=== PATIENT | male | born 1990 | race Caucasian/White ===

== ENCOUNTER 2018-08-28 12:01 | Inpatient (IN) | payer MEDICARE, SELFPAY ==
[2018-08-28 12:02] VITALS: BP 156/101; PULSE 106; RESP 22; TEMP 36; O2SAT 100; BMI 35.8
--- NOTE | 2018-08-28 12:13 | CT_ITS ---
STUDY: CT ABDOMEN AND PELVIS WITH CONTRAST REASON FOR EXAM: Male, 28 years old. Lower abdominal and rectal pain. RADIATION DOSAGE (If Supplied By Facility): CTDIvol = ( 20.28 ) mGy, DLP = ( 1349.64 ) mGycm TECHNIQUE: Transaxial images were obtained from the dome of the diaphragm to the symphysis pubis without oral contrast. 100mL ml of Isovue 300 contrast was administered. Sagittal and coronal images were reconstructed. Individualized dose optimization techniques were used for this CT. COMPARISON: Comparison is made with prior study dated November 07, 2016. FINDINGS: Minimal increased markings at the right lung base suggestive of mild atelectasis. The visualized portions of the heart are within normal limits. There is decreased attenuation of the liver consistent with steatosis. Normal gallbladder and extrahepatic biliary system. Borderline splenomegaly. Normal pancreas. Normal bilateral adrenal glands. Normal right kidney. Normal left kidney. Normal visualized stomach. Normal small intestine. There is diverticulosis, with thickening of the colon wall, and pericolonic inflammation changes consistent with acute diverticulitis. Tiny air bubbles are seen along the mesenteric side of the sigmoid colon in keeping with a localized perforated well-contained diverticulitis. No abnormal fluid collection or abscess is seen. The appendix is visualized and appears normal. Normal abdominal aorta. Normal inferior vena cava. There is borderline retroperitoneal lymphadenopathy with enlarged nodes no greater than 10mm in the short axis diameter. Normal urinary bladder. Normal abdominal wall. Normal osseous structures. CT/Abdomen/Pelvis W IV Cont ONLY IMPRESSION: Findings in keeping with a noncomplicated acute sigmoid diverticulitis. Fatty infiltration of the liver. Electronically Signed: Chaka Burciaga MD at 13:51 EST Tel [phone], Service support ,
[2018-08-28] MEDS: 0.9% Normal Saline 1,000 ML 125 ML IV ×2 (12:50→17:30)
[2018-08-28] MEDS: Ondansetron 4 MG/2 ML Vial IV ×2 (12:50→17:20)
[2018-08-28] MEDS: Morphine 4 MG/ML Syringe IV ×2 (12:51→14:04)
[2018-08-28 12:55] LABS: Absolute Lymphocyte Count 1.45 X10^3/ul (0.83-4.51); Basophil# 0.02 X10^3/uL; Basophil% 0.1 % (0-1); Eosinophils% 14.7 % (0-5); Hematocrit 50.1 % (40-54); Hemoglobin 16.8 g/dl (13.0-16.5); Lymphocyte # 1.45 X10^3/ul (4.0); Lymphocyte % 8.2 % (19-41); Mean Corp Hgb Conc 33.5 g/gl (32-36); Mean Corpuscular Hgb 29.7 pg (27.0-32.0); Mean Corpuscular Volume 88.7 fL (80-94); Monocyte# 0.68 X10^3/uL; Monocyte% 3.8 % (0-10); Neutrophil # 13.01 X10^3/uL (2.7-7.7); Neutrophil % 73.1 % (47-70); Platelet Count 246 K/mm3 (150-450); RBC Distribution Width CV 13.6 % (11.6-14.6); RBC Distribution Width SD 44.1 fl (35.1-43.9); Red Blood Count 5.65 M/mm3 (4.6-6.2); White Blood Count 17.8 K/mm3 (4.4-11.0)
[2018-08-28 12:57] LABS: Differential Indicated SCAN CRITERIA MET; Eosinophil# 2.61 X10^3/uL; POSITIVE COUNT NO; POSITIVE DIFFERENTIAL YES; POSITIVE MORPHOLOGY NO
[2018-08-28 13:05] LABS: BUN 7 mg/dL (7-18); Creatinine, Serum 0.99 mg/dL (0.70-1.30); Estimated Creatinine Clearance 121.93 ml/min; Glucose 100 mg/dL (74-106)
[2018-08-28 13:06] LABS: Anion Gap 5 (5-15); BUN/Creat Ratio 7.1 RATIO (10-20); Calcium,Total 8.6 mg/dL (8.5-10.1); Chloride 104 mmol/L (98-107); EST Glomerular Filtration Rate 96 mL/min (>60); Est Glom Filt Rate - Afr Amer 116 mL/min (>60); Potassium 4.2 mmol/L (3.5-5.1); Sodium Level 138 mmol/L (136-145)
[2018-08-28 13:10] LABS: Differential Comment SCANNED
[2018-08-28 14:11] VITALS: BP 150/74; PULSE 72; RESP 18; O2SAT 97
--- NOTE | 2018-08-28 14:20 | ED.DCSUM_ITS ---
- ER Visit Summary Date of Service: 08/28/18 Chief Complaint: Abdominal pain History of Present Illness: The patient is a 28 M who states that last evening before bedtime he had some lower abdominal discomfort. He is able to sleep. When he woke up this morning he states he felt reasonably well. He was on the commode attempting to have a bowel movement and pushing when he developed a severe pain in the suprapubic left lower quadrant region. He states he cannot sit down. He states it feels like there is a needle going through his rectum into his abdomen. He denies any urinary symptoms. No testicular pain no history of kidney stones. Physical Examination: Afebrile vital signs are stable Gen: Well-nourished well-developed Head: Normocephalic atraumatic Eyes: Perrl EOMI ENT: TMs clear no rhinorrhea moist mucous membranes Neck: Supple no lymphadenopathy no JVD nontender CVS: Regular rate rhythm no murmurs normal S1-S2 Respiratory: No distress clear to auscultation bilaterally chest nontender Abdomen: Soft tender to palpation with guarding and rebound in the suprapubic and left lower quadrant nondistended normal bowel sounds no masses : Rectal exam is nontender with no obvious hemorrhoids Back: Nontender Extremity: Nontender no edema Skin: Normal color no rash Neuro: alert orientated ?3 CN II-XII intact normal strength sensation reflexes gait cerebellar Psych: Normal affect normal mood Test Results: White count is elevated and CT demonstrates sigmoid diverticulitis with microperforation without abscess formation. Emergency Department Course and Treatment: Patient received morphine Zofran. He also received IV fluids and later Zosyn. Plan is admission into the hospital for pain control and antibiotics. Impression: 1. Acute sigmoid diverticulitis with microperforation This note was generated with [employer] dictation software. It may contain incorrect words, spelling, and punctuation that were not noted in review of the chart prior to signing ED Disposition - Plan for ED Patient: Chief Complaint: Abd Pain Referrals: Berna Wren NP-C [Primary Care Provider] -
[2018-08-28 14:27] LABS: AST(SGOT) 26 U/L (15-37); Alanine Aminotransfer ALT/SGPT 59 U/L (16-61); Albumin, Serum 4.3 g/dL (3.2-5.0); Alkaline Phosphatase 86 U/L (45-117); Globulin 4.4 g/dL (2.2-4.2); Protein, Total 8.7 g/dL (6.4-8.2)
[2018-08-28 14:33] LABS: Lactic Acid 1.3 mmol/L (0.4-2.0)
[2018-08-28 15:07] VITALS: BMI 35.8
--- NOTE | 2018-08-28 15:08 | NURSING ---
MED SURG JOTHEO ACUTE SIGMOID DIVERTICULITIS
[2018-08-28] MEDS: HYDROmorphone 1 MG/ML Syringe IV (15:10)
--- NOTE | 2018-08-28 15:13 | PCM.HP.STD ---
Problem List (1) Diverticulitis Status: Acute History of Present Illness Date of Admission: 08/28/18 Chief Complaint: abdominal pain. The patient is a 28 year old M who was in his normal state of health up until last night where he started to have some vague abdominal pain. This morning, around 1030, he had acute needlelike abdominal pain at this tearing sensation across his abdomen. Patient felt like he had to have a bowel movement but did not at that time. Presented to the emergency room and had a CAT scan that showed diverticulosis with thickening of the colonic wall and pericolonic inflammatory changes consistent with acute diverticulitis. Tiny air bubbles seen along the mesenteric side of the sigmoid colon in keeping with localized perforated well-contained diverticulitis. Patient received the pain medications, IV fluids as well as Zosyn in the emergency room. Patient denies ever having had diverticulitis before. Patient if the pain medication did help with his symptoms. 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 Allergies dextromethorphan HBr [From NyQuil] Allergy (Verified 08/18/17 14:25) Anaphylaxis doxylamine [From NyQuil] Allergy (Verified 08/18/17 14:25) Anaphylaxis poison mimi extract [Poison Mimi Extract] Allergy (Verified 08/18/17 14:25) Anaphylaxis pseudoephedrine HCl [From NyQuil] Allergy (Verified 08/18/17 14:25) Anaphylaxis venom-honey bee [bee venom (honey bee)] Allergy (Verified 08/18/17 14:25) Anaphylaxis MUSHROOMS Allergy (Uncoded 08/18/17 14:25) Anaphylaxis Home Medications: Ambulatory Orders Medication Instructions Recorded Acetaminophen [Tylenol Extra 1,000 mg PO PRN PRN 08/28/18 Strength] Calcium Carbonate [Tums] 1,000 mg PO PRN PRN 08/28/18 Surgical History: - - testicular surgery on cyst--nonresectable. Lives: Spouse/ Significant Other Smoking Status: Light Smoker (<10/day) Tobacco Use: Cigarettes Alcohol: None Drugs: None - *Family History Maternal History Items: No pertinent history Paternal History Items: Heart Disease, - - murdered Review of Systems Constitutional: Reports: Anorexia, Chills. Denies: Fever Eyes: Denies: Blurred vision, Double vision HEENT: Denies: Head Aches, Sinus Congestion, Sinus Drainage Cardiovascular: Denies: Chest Pain, Palpitations Respiratory: Denies: Cough, Shortness of breath at rest, Sputum production Gastrointestinal: Reports: Abdominal Pain, Hematochezia - occassional due to hemorroids--none currently., Nausea. Denies: Hematemesis, Vomiting Genitourinary: Denies: Dysuria Musculoskeletal: Denies: Joint Pain, Joint Tenderness Skin: Denies: Rash, Wounds Neurological: Denies: Numbness, Tingling, Focal weakness Psychiatric: Denies: Anxiety, Depression, Homicidal Ideations, Suicidal Ideations Endocrine: Denies: Change in Body Habitus, Heat/ Cold Intolerance Hematologic/ Lymphatic: Denies: Easy Bruising, Easy Bleeding, Hx of blood clot Comment: A full 10 point review of systems otherwise negative except for as mentioned above and in the HPI. VTE Information - Inpt Only VTE Present on Admission: No VTE Mechan Device Prophylaxis: None VTE Pharm Prophylaxis ordered?: Yes Patient Problems: Active and Suspected Problems Diverticulitis (Acute) - Physical Exam General: Alert, Cooperative, - - Slightly uncomfortable. HEENT: Atraumatic, Normocephalic, - - No scleral icterus Oral: Moist Mucosa, No Gingival or Mucosal Lesions/ Ulcerations Neck: No Nodes, Thyroid Normal Size and Texture Lungs: Clear to auscultation, Normal air movement, No rhonchi, No wheeze Cardiovascular: Regular rate, Regular Rhythm, Normal S1, Normal S2, No murmurs Abdomen: Bowel Sounds Present, Soft, Non-Distended, No Hepato-splenomegaly, - - Diffusely tender. Extremities: No edema, No Calf Tenderness Skin: No rashes, No breakdown Musculoskeletal: No Tenderness to Palpation of Joints or Extremities, No Muscle Wasting Neurological: Muscle tone normal, Coordination normal Psych/Mental Status: Normal Affect, Appropriate Vital Signs Temp Pulse Resp BP Pulse Ox 36.0 C L 72 18 150/74 H 97 08/28/18 12:02 08/28/18 14:11 08/28/18 14:11 08/28/18 14:11 08/28/18 14:11 Oxygen Delivery Method Room Air Weight: 119.748 kg Body Mass Index (BMI) 35.8 Laboratory Tests Past 24 Hrs 08/28/18 08/28/18 08/28/18 12:40 12:40 13:55 WBC 17.8 H RBC 5.65 Hgb 16.8 H Hct 50.1 MCV 88.7 MCH 29.7 MCHC 33.5 RDW 13.6 RDW Differential 44.1 H Plt Count 246 MPV 11.0 Immature Gran % (Auto) 0.100 Neut % (Auto) 73.1 H Lymph % (Auto) 8.2 L Christian % (Auto) 3.8 Eos % (Auto) 14.7 H Baso % (Auto) 0.1 Absolute Neuts (auto) 13.0 H Absolute Lymphs (auto) 1.45 Total Counted Not Reportable Differential Comment SCANNED Diff Path Review May foll Sodium 138 Potassium 4.2 Chloride 104 Carbon Dioxide 29.0 Anion Gap 5 BUN 7 Creatinine 0.99 Estim Creat Clear Calc 121.93 Est GFR (MDRD) Af Amer 116 Est GFR (MDRD) Non-Af 96 BUN/Creatinine Ratio 7.1 L Glucose 100 Lactic Acid Calcium 8.6 Total Bilirubin 0.80 Direct Bilirubin 0.20 AST 26 ALT 59 Alkaline Phosphatase 86 Total Protein 8.7 H Albumin 4.3 Globulin 4.4 H 08/28/18 13:55 WBC RBC Hgb Hct MCV MCH MCHC RDW RDW Differential Plt Count MPV Immature Gran % (Auto) Neut % (Auto) Lymph % (Auto) Christian % (Auto) Eos % (Auto) Baso % (Auto) Absolute Neuts (auto) Absolute Lymphs (auto) Total Counted Differential Comment Diff Path Review Sodium Potassium Chloride Carbon Dioxide Anion Gap BUN Creatinine Estim Creat Clear Calc Est GFR (MDRD) Af Amer Est GFR (MDRD) Non-Af BUN/Creatinine Ratio Glucose Lactic Acid 1.3 Calcium Total Bilirubin Direct Bilirubin AST ALT Alkaline Phosphatase Total Protein Albumin Globulin Clinical Impression(s) from Imaging Studies Abdomen/Pelvis CT 08/28/18 12:13 IMPRESSION: Findings in keeping with a noncomplicated acute sigmoid diverticulitis. Fatty infiltration of the liver. Electronically Signed: Chaka Burciaga MD at 13:51 EST Tel [phone], Service support , Assessment/Plan All Active Problems Diverticulitis (Acute) 1. Acute diverticulitis Complicated with a small microperforation Continue Zosyn N.p.o. If symptoms worsen, suggest repeat imaging and surgical consultation Nonsurgical at this time 2. DVT prophylaxis with low molecular weight heparin Code Visit Inpatient E&M: 83412 Init Hosp L3
--- NOTE | 2018-08-28 15:17 | HP.PCM_ITS ---
Problem List (1) Diverticulitis Status: Acute History of Present Illness Date of Admission: 08/28/18 Chief Complaint: abdominal pain. The patient is a 28 year old M who was in his normal state of health up until last night where he started to have some vague abdominal pain. This morning, around 1030, he had acute needlelike abdominal pain at this tearing sensation across his abdomen. Patient felt like he had to have a bowel movement but did not at that time. Presented to the emergency room and had a CAT scan that showed diverticulosis with thickening of the colonic wall and pericolonic inflammatory changes consistent with acute diverticulitis. Tiny air bubbles seen along the mesenteric side of the sigmoid colon in keeping with localized perforated well-contained diverticulitis. Patient received the pain medications, IV fluids as well as Zosyn in the emergency room. Patient denies ever having had diverticulitis before. Patient if the pain medication did help with his symptoms. 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 Allergies dextromethorphan HBr [From NyQuil] Allergy (Verified 08/18/17 14:25) Anaphylaxis doxylamine [From NyQuil] Allergy (Verified 08/18/17 14:25) Anaphylaxis poison mimi extract [Poison Mimi Extract] Allergy (Verified 08/18/17 14:25) Anaphylaxis pseudoephedrine HCl [From NyQuil] Allergy (Verified 08/18/17 14:25) Anaphylaxis venom-honey bee [bee venom (honey bee)] Allergy (Verified 08/18/17 14:25) Anaphylaxis MUSHROOMS Allergy (Uncoded 08/18/17 14:25) Anaphylaxis Home Medications: Ambulatory Orders Medication Instructions Recorded Acetaminophen [Tylenol Extra 1,000 mg PO PRN PRN 08/28/18 Strength] Calcium Carbonate [Tums] 1,000 mg PO PRN PRN 08/28/18 Surgical History: - - testicular surgery on cyst--nonresectable. Lives: Spouse/ Significant Other Smoking Status: Light Smoker (<10/day) Tobacco Use: Cigarettes Alcohol: None Drugs: None - *Family History Maternal History Items: No pertinent history Paternal History Items: Heart Disease, - - murdered Review of Systems Constitutional: Reports: Anorexia, Chills. Denies: Fever Eyes: Denies: Blurred vision, Double vision HEENT: Denies: Head Aches, Sinus Congestion, Sinus Drainage Cardiovascular: Denies: Chest Pain, Palpitations Respiratory: Denies: Cough, Shortness of breath at rest, Sputum production Gastrointestinal: Reports: Abdominal Pain, Hematochezia - occassional due to hemorroids--none currently., Nausea. Denies: Hematemesis, Vomiting Genitourinary: Denies: Dysuria Musculoskeletal: Denies: Joint Pain, Joint Tenderness Skin: Denies: Rash, Wounds Neurological: Denies: Numbness, Tingling, Focal weakness Psychiatric: Denies: Anxiety, Depression, Homicidal Ideations, Suicidal Ideations Endocrine: Denies: Change in Body Habitus, Heat/ Cold Intolerance Hematologic/ Lymphatic: Denies: Easy Bruising, Easy Bleeding, Hx of blood clot Comment: A full 10 point review of systems otherwise negative except for as mentioned above and in the HPI. VTE Information - Inpt Only VTE Present on Admission: No VTE Mechan Device Prophylaxis: None VTE Pharm Prophylaxis ordered?: Yes Patient Problems: Active and Suspected Problems Diverticulitis (Acute) - Physical Exam General: Alert, Cooperative, - - Slightly uncomfortable. HEENT: Atraumatic, Normocephalic, - - No scleral icterus Oral: Moist Mucosa, No Gingival or Mucosal Lesions/ Ulcerations Neck: No Nodes, Thyroid Normal Size and Texture Lungs: Clear to auscultation, Normal air movement, No rhonchi, No wheeze Cardiovascular: Regular rate, Regular Rhythm, Normal S1, Normal S2, No murmurs Abdomen: Bowel Sounds Present, Soft, Non-Distended, No Hepato-splenomegaly, - - Diffusely tender. Extremities: No edema, No Calf Tenderness Skin: No rashes, No breakdown Musculoskeletal: No Tenderness to Palpation of Joints or Extremities, No Muscle Wasting Neurological: Muscle tone normal, Coordination normal Psych/Mental Status: Normal Affect, Appropriate Vital Signs Temp Pulse Resp BP Pulse Ox 36.0 C L 72 18 150/74 H 97 08/28/18 12:02 08/28/18 14:11 08/28/18 14:11 08/28/18 14:11 08/28/18 14:11 Oxygen Delivery Method Room Air Weight: 119.748 kg Body Mass Index (BMI) 35.8 Laboratory Tests Past 24 Hrs 08/28/18 08/28/18 08/28/18 12:40 12:40 13:55 WBC 17.8 H RBC 5.65 Hgb 16.8 H Hct 50.1 MCV 88.7 MCH 29.7 MCHC 33.5 RDW 13.6 RDW Differential 44.1 H Plt Count 246 MPV 11.0 Immature Gran % (Auto) 0.100 Neut % (Auto) 73.1 H Lymph % (Auto) 8.2 L Sac % (Auto) 3.8 Eos % (Auto) 14.7 H Baso % (Auto) 0.1 Absolute Neuts (auto) 13.0 H Absolute Lymphs (auto) 1.45 Total Counted Not Reportable Differential Comment SCANNED Diff Path Review May foll Sodium 138 Potassium 4.2 Chloride 104 Carbon Dioxide 29.0 Anion Gap 5 BUN 7 Creatinine 0.99 Estim Creat Clear Calc 121.93 Est GFR (MDRD) Af Amer 116 Est GFR (MDRD) Non-Af 96 BUN/Creatinine Ratio 7.1 L Glucose 100 Lactic Acid Calcium 8.6 Total Bilirubin 0.80 Direct Bilirubin 0.20 AST 26 ALT 59 Alkaline Phosphatase 86 Total Protein 8.7 H Albumin 4.3 Globulin 4.4 H 08/28/18 13:55 WBC RBC Hgb Hct MCV MCH MCHC RDW RDW Differential Plt Count MPV Immature Gran % (Auto) Neut % (Auto) Lymph % (Auto) Sac % (Auto) Eos % (Auto) Baso % (Auto) Absolute Neuts (auto) Absolute Lymphs (auto) Total Counted Differential Comment Diff Path Review Sodium Potassium Chloride Carbon Dioxide Anion Gap BUN Creatinine Estim Creat Clear Calc Est GFR (MDRD) Af Amer Est GFR (MDRD) Non-Af BUN/Creatinine Ratio Glucose Lactic Acid 1.3 Calcium Total Bilirubin Direct Bilirubin AST ALT Alkaline Phosphatase Total Protein Albumin Globulin Clinical Impression(s) from Imaging Studies Abdomen/Pelvis CT 08/28/18 12:13 IMPRESSION: Findings in keeping with a noncomplicated acute sigmoid diverticulitis. Fatty infiltration of the liver. Electronically Signed: Chaka Burciaga MD at 13:51 EST Tel [phone], Service support , Assessment/Plan All Active Problems Diverticulitis (Acute) 1. Acute diverticulitis * Complicated with a small microperforation * Continue Zosyn * N.p.o. * If symptoms worsen, suggest repeat imaging and surgical consultation * Nonsurgical at this time 2. DVT prophylaxis with low molecular weight heparin Code Visit Inpatient E&M: 23513 Init Hosp L3
[2018-08-28 16:14] VITALS: BMI 34.9
[2018-08-28 16:16] VITALS: BP 150/81; PULSE 101; RESP 16; TEMP 37; O2SAT 98
--- NOTE | 2018-08-28 16:33 | CHAPLAIN ---
Type of Pastoral Visit _x__ Initial Visit ___ Follow-up Visit ___ On-call Visit ___ General Patient Visit ___ Spiritual Assessment ___ Family Conference ___ Bereavement ___ Rapid Response ___ Code Blue ___ Other (describe below) Pastoral Care Referral From _x__ Patient ___ Family ___ Nurse ___ Physician ___ Community Service Specialist ___ Hydraulic Bull Riveter Operator ___ Other (describe below) Sacrament/Intervention _x__ Active listening ___ Anointing ___ Zoroastrian ___ Bereavement ___ Communion _x__ Yahaira exploration ___ _x__ Life review _x__ Prayer ___ Reconciliation ___ Sacrament of Sick _x__ Supportive presence ___ Wedding ___ Other (describe below) Pastoral Comments
[2018-08-28] MEDS: Morphine 2 MG/ML Syringe IV (17:19)
--- NOTE | 2018-08-28 19:02 | NURSING ---
Rounded with Alexandre ARIAS. Pt relaxing in bed at this time. No needs voiced.
[2018-08-28 20:00] VITALS: BP 134/77; PULSE 94; RESP 16; TEMP 36.8; O2SAT 97
--- NOTE | 2018-08-28 20:08 | NURSING ---
Pt c/o pain in lower abd. Describes it as sharp. Advised pt that I notified MD because there is nothing more I can give him at this time.
--- NOTE | 2018-08-28 20:19 | CT_ITS ---
STUDY: CT ABDOMEN AND PELVIS WITHOUT CONTRAST REASON FOR EXAM: Male, 28 years old. Diverticulitis RADIATION DOSAGE (If Supplied By Facility): CTDIvol = ( 17.11 ) mGy, DLP = ( 965.90 ) mGycm TECHNIQUE: Transaxial images were obtained from the dome of the diaphragm to the symphysis pubis without oral contrast, and without intravenous contrast. Sagittal and coronal images were reconstructed. Individualized dose optimization techniques were used for this CT. COMPARISON: November 07, 2016 FINDINGS: The visualized lung bases are unremarkable. The visualized portions of the heart are within normal limits. Normal liver. There is increased attenuation within the gallbladder which may represent tiny calcified stones without evidence for pericholecystic edema. Normal spleen. Normal pancreas. Normal bilateral adrenal glands. Normal right kidney. Normal left kidney. Normal visualized stomach. Normal small intestine. There are diverticular changes of the sigmoid colon with inflammatory stranding in the mesenteric fat consistent with acute diverticulitis. There are extraluminal air bubbles with soft tissue density above the dome of the bladder consistent with microperforation but no well-defined abscess at this time The appendix is visualized and appears normal. Normal abdominal aorta. Normal inferior vena cava. Normal retroperitoneum. Normal urinary bladder. Normal abdominal wall. Normal osseous structures. CT/Abdomen/Pelvis without Cont IMPRESSION: Acute diverticulitis of the sigmoid colon with microperforation but no well-defined abscess at this time N.B. : DERIAN CLAUDIO MD, confirmed on 08/29/2018 00:27:41 (ET) that the referring physician received the results and did not require a verbal consultation. Electronically Signed: Dakota Dunham MD at 22:04 EST , Service support ,
--- NOTE | 2018-08-28 20:27 | NURSING ---
Dr. Campbell notified surgeon. Another CT of abd/pelvis ordered stat. Awaiting Dilaudid to be verified. Dr. Becerril wants called with CT results.
[2018-08-28 20:30] VITALS: PULSE 84
--- NOTE | 2018-08-28 20:31 | NURSING ---
CT scan just called. Said they cannot do IV contrast again since it was already done today. They put a page into the MD.
--- NOTE | 2018-08-28 20:33 | NURSING ---
Pharmacy called to verify Dilaudid since pt is in extreme amount of pain. Told Dr. Becerril about CT scan saying IV contrast cannot be done again. He wants me to call Dr. Weiss to see if regular CT scan would be good enough.
[2018-08-28] MEDS: HYDROmorphone 1 MG/ML Syringe 2 MG IV (20:42)
--- NOTE | 2018-08-28 20:43 | NURSING ---
Before I could call Dr. Weiss, CT had called them and they will do regular CT with no contrast and they will change the order. Dr. Campbell aware.
--- NOTE | 2018-08-28 21:34 | PCM.CONS.GEN ---
Reason for Consult Date of Consultation: 08/28/18 History of Present Illness: The patient is a 28 year old M came to the ER due to lower abdominal pain patient rated at 20/10 when he first came in. Patient states the pain started this morning when he went to use the restroom at 1030. He states that he did have some weird feeling in his abdomen went to bed last night however it was not pain. Patient denies any fevers or chills. Had a CT abdomen pelvis was done which showed localized microperforation sigmoid diverticulitis and patient's white blood cell count was 17. Patient was given Zosyn 4.5 g IV x1 in the ER. As well as morphine and Dilaudid for pain. Patient's vital signs have remained stable just barely tachycardic occasionally. Patient states he is never had abdominal pain like this before. He does have past medical history significant for bipolar, PTSD however patient is not on any medications currently but is talking with a counselor about may be starting some in the future. I was consulted because the hospitalist states patient's pain was worse than previous. However patient last had pain meds morphine at 5 PM 4 mg and by 8:30 PM he was not due for any more pain meds as they were ordered every 4 hr. Pt is scheduled for a stat CT a/p due to increased pain. 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 Allergies dextromethorphan HBr [From NyQuil] Allergy (Verified 08/18/17 14:25) Anaphylaxis doxylamine [From NyQuil] Allergy (Verified 08/18/17 14:25) Anaphylaxis poison mimi extract [Poison Mimi Extract] Allergy (Verified 08/18/17 14:25) Anaphylaxis pseudoephedrine HCl [From NyQuil] Allergy (Verified 08/18/17 14:25) Anaphylaxis venom-honey bee [bee venom (honey bee)] Allergy (Verified 08/18/17 14:25) Anaphylaxis MUSHROOMS Allergy (Uncoded 08/18/17 14:25) Anaphylaxis Home Medications: Ambulatory Orders Medication Instructions Recorded Acetaminophen [Tylenol Extra 1,000 mg PO PRN PRN 08/28/18 Strength] Calcium Carbonate [Tums] 1,000 mg PO PRN PRN 08/28/18 Surgical History: - - testicular surgery on cyst--nonresectable., left foot Psychiatric History: Bipolar, Post traumatic stress Lives: Spouse/ Significant Other Smoking Status: Light Smoker (<10/day) Tobacco Use: Cigarettes Alcohol: None Drugs: None - *Family History Maternal History Items: No pertinent history Paternal History Items: Heart Disease, - - murdered Review of Systems Constitutional: Reports: Chills Eyes: Denies: Blurred vision HEENT: Denies: Difficulty Swallowing Cardiovascular: Denies: Chest Pain Respiratory: Denies: Shortness of Breath Gastrointestinal: Reports: Abdominal Pain Genitourinary: Denies: Dysuria Skin: Reports: Rash Neurological: Denies: Balance problems Psychiatric: Reports: Depression - hx bipolar- not on any meds currently Hematologic/ Lymphatic: Denies: Easy Bleeding Patient Problems: Active and Suspected Problems (Last Updated 08/28/18 @ 21:47 by Roxi Weiss MD) Diverticulitis (Acute) - Physical Exam General: Alert, Oriented x3, Cooperative HEENT: Atraumatic Lungs: Normal air movement Cardiovascular: Regular rate Abdomen: Soft, Non-Distended, Tender - Bilateral LQ, equivocal rebound, no involuntary guarding Extremities: No clubbing, No cyanosis, No edema Skin: No rashes Musculoskeletal: No Muscle Wasting Neurological: Cranial nerves II-XII grossly intact Psych/Mental Status: Appropriate Vital Signs Temp Pulse Resp BP Pulse Ox 98.2 F 94 16 134/77 H 97 08/28/18 20:00 08/28/18 20:00 08/28/18 20:00 08/28/18 20:00 08/28/18 20:00 Oxygen Delivery Method Room Air Weight: 258 lb 6.108 oz Body Mass Index (BMI) 34.9 Laboratory Tests Past 24 Hrs 08/28/18 08/28/18 08/28/18 12:40 12:40 13:55 WBC 17.8 H RBC 5.65 Hgb 16.8 H Hct 50.1 MCV 88.7 MCH 29.7 MCHC 33.5 RDW 13.6 RDW Differential 44.1 H Plt Count 246 MPV 11.0 Immature Gran % (Auto) 0.100 Neut % (Auto) 73.1 H Lymph % (Auto) 8.2 L [place] % (Auto) 3.8 Eos % (Auto) 14.7 H Baso % (Auto) 0.1 Absolute Neuts (auto) 13.0 H Absolute Lymphs (auto) 1.45 Total Counted Not Reportable Differential Comment SCANNED Diff Path Review May foll Sodium 138 Potassium 4.2 Chloride 104 Carbon Dioxide 29.0 Anion Gap 5 BUN 7 Creatinine 0.99 Estim Creat Clear Calc 121.93 Est GFR (MDRD) Af Amer 116 Est GFR (MDRD) Non-Af 96 BUN/Creatinine Ratio 7.1 L Glucose 100 Lactic Acid Calcium 8.6 Total Bilirubin 0.80 Direct Bilirubin 0.20 AST 26 ALT 59 Alkaline Phosphatase 86 Total Protein 8.7 H Albumin 4.3 Globulin 4.4 H 08/28/18 13:55 WBC RBC Hgb Hct MCV MCH MCHC RDW RDW Differential Plt Count MPV Immature Gran % (Auto) Neut % (Auto) Lymph % (Auto) [place] % (Auto) Eos % (Auto) Baso % (Auto) Absolute Neuts (auto) Absolute Lymphs (auto) Total Counted Differential Comment Diff Path Review Sodium Potassium Chloride Carbon Dioxide Anion Gap BUN Creatinine Estim Creat Clear Calc Est GFR (MDRD) Af Amer Est GFR (MDRD) Non-Af BUN/Creatinine Ratio Glucose Lactic Acid 1.3 Calcium Total Bilirubin Direct Bilirubin AST ALT Alkaline Phosphatase Total Protein Albumin Globulin Assessment/Plan All Active Problems (Last Updated 08/28/18 @ 21:47 by Roxi Weiss MD) Diverticulitis (Acute) 28-year-old male with diverticulitis with microperforation 1. Continue n.p.o./IV fluids and strict I's and O's. Plan to continue to treat conservatively unless increased WBC/pain/etc. No plans to advance diet to clears until pain free/normal WBC, then will go slowly when advancement. 2. Continue Zosyn IV antibiotics 3. We will change morphine to Dilaudid for pain control and add some Toradol as long as his creatinine remains normal, we will try to keep caught up with the pain with pain meds. 4. My read of the CT abdomen pelvis looks about the same at this afternoon with just a couple of localized small air bubbles will await official read. Discussed with patient that if his pain did get worse/fevers he may need emergency surgery which would involve exploratory laparotomy possible bowel resection possible stoma. --addendum: official CT a/p read unchanged from previous-microperforation of sigmoid diverticulitis Roxi Weiss M.D. Pager: [phone] [facility] [place] [facility] [address] [place] [address], [facility] [place], [address] [place] [address] Office: [phone] Code Visit Inpatient E&M: [id number] Init Hosp L2
--- NOTE | 2018-08-28 21:41 | CON.PCM_ITS ---
Reason for Consult Date of Consultation: 08/28/18 History of Present Illness: The patient is a 28 year old M came to the ER due to lower abdominal pain patient rated at 20/10 when he first came in. Patient states the pain started this morning when he went to use the restroom at 1030. He states that he did h ave some weird feeling in his abdomen went to bed last night however it was not pain. Patient denies any fevers or chills. Had a CT abdomen pelvis was done which showed localized microperforation sigmoid diverticulitis and patient's white blood cell count was 17. Patient was given Zosyn 4.5 g IV x1 in the ER. As well as morphine and Dilaudid for pain. Patient's vital signs have remained stable just barely tachycardic occasionally. Patient states he is never had abdominal pain like this before. He does have past medical history significant for bipolar, PTSD however patient is not on any medications currently but is talking with a counselor about may be starting some in the future. I was consulted because the hospitalist states patient's pain was worse than previous. However patient last had pain meds morphine at 5 PM 4 mg and by 8:30 PM he was not due for any more pain meds as they were ordered every 4 hr. Pt is scheduled for a stat CT a/p due to increased pain. 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 Allergies dextromethorphan HBr [From NyQuil] Allergy (Verified 08/18/17 14:25) Anaphylaxis doxylamine [From NyQuil] Allergy (Verified 08/18/17 14:25) Anaphylaxis poison mimi extract [Poison Mimi Extract] Allergy (Verified 08/18/17 14:25) Anaphylaxis pseudoephedrine HCl [From NyQuil] Allergy (Verified 08/18/17 14:25) Anaphylaxis venom-honey bee [bee venom (honey bee)] Allergy (Verified 08/18/17 14:25) Anaphylaxis MUSHROOMS Allergy (Uncoded 08/18/17 14:25) Anaphylaxis Home Medications: Ambulatory Orders Medication Instructions Recorded Acetaminophen [Tylenol Extra 1,000 mg PO PRN PRN 08/28/18 Strength] Calcium Carbonate [Tums] 1,000 mg PO PRN PRN 08/28/18 Surgical History: - - testicular surgery on cyst--nonresectable., left foot Psychiatric History: Bipolar, Post traumatic stress Lives: Spouse/ Significant Other Smoking Status: Light Smoker (<10/day) Tobacco Use: Cigarettes Alcohol: None Drugs: None - *Family History Maternal History Items: No pertinent history Paternal History Items: Heart Disease, - - murdered Review of Systems Constitutional: Reports: Chills Eyes: Denies: Blurred vision HEENT: Denies: Difficulty Swallowing Cardiovascular: Denies: Chest Pain Respiratory: Denies: Shortness of Breath Gastrointestinal: Reports: Abdominal Pain Genitourinary: Denies: Dysuria Skin: Reports: Rash Neurological: Denies: Balance problems Psychiatric: Reports: Depression - hx bipolar- not on any meds currently Hematologic/ Lymphatic: Denies: Easy Bleeding Patient Problems: Active and Suspected Problems (Last Updated 08/28/18 @ 21:47 by Roxi Weiss MD) Diverticulitis (Acute) - Physical Exam General: Alert, Oriented x3, Cooperative HEENT: Atraumatic Lungs: Normal air movement Cardiovascular: Regular rate Abdomen: Soft, Non-Distended, Tender - Bilateral LQ, equivocal rebound, no involuntary guarding Extremities: No clubbing, No cyanosis, No edema Skin: No rashes Musculoskeletal: No Muscle Wasting Neurological: Cranial nerves II-XII grossly intact Psych/Mental Status: Appropriate Vital Signs Temp Pulse Resp BP Pulse Ox 98.2 F 94 16 134/77 H 97 08/28/18 20:00 08/28/18 20:00 08/28/18 20:00 08/28/18 20:00 08/28/18 20:00 Oxygen Delivery Method Room Air Weight: 258 lb 6.108 oz Body Mass Index (BMI) 34.9 Laboratory Tests Past 24 Hrs 08/28/18 08/28/18 08/28/18 12:40 12:40 13:55 WBC 17.8 H RBC 5.65 Hgb 16.8 H Hct 50.1 MCV 88.7 MCH 29.7 MCHC 33.5 RDW 13.6 RDW Differential 44.1 H Plt Count 246 MPV 11.0 Immature Gran % (Auto) 0.100 Neut % (Auto) 73.1 H Lymph % (Auto) 8.2 L [place] % (Auto) 3.8 Eos % (Auto) 14.7 H Baso % (Auto) 0.1 Absolute Neuts (auto) 13.0 H Absolute Lymphs (auto) 1.45 Total Counted Not Reportable Differential Comment SCANNED Diff Path Review May foll Sodium 138 Potassium 4.2 Chloride 104 Carbon Dioxide 29.0 Anion Gap 5 BUN 7 Creatinine 0.99 Estim Creat Clear Calc 121.93 Est GFR (MDRD) Af Amer 116 Est GFR (MDRD) Non-Af 96 BUN/Creatinine Ratio 7.1 L Glucose 100 Lactic Acid Calcium 8.6 Total Bilirubin 0.80 Direct Bilirubin 0.20 AST 26 ALT 59 Alkaline Phosphatase 86 Total Protein 8.7 H Albumin 4.3 Globulin 4.4 H 08/28/18 13:55 WBC RBC Hgb Hct MCV MCH MCHC RDW RDW Differential Plt Count MPV Immature Gran % (Auto) Neut % (Auto) Lymph % (Auto) [place] % (Auto) Eos % (Auto) Baso % (Auto) Absolute Neuts (auto) Absolute Lymphs (auto) Total Counted Differential Comment Diff Path Review Sodium Potassium Chloride Carbon Dioxide Anion Gap BUN Creatinine Estim Creat Clear Calc Est GFR (MDRD) Af Amer Est GFR (MDRD) Non-Af BUN/Creatinine Ratio Glucose Lactic Acid 1.3 Calcium Total Bilirubin Direct Bilirubin AST ALT Alkaline Phosphatase Total Protein Albumin Globulin Assessment/Plan All Active Problems (Last Updated 08/28/18 @ 21:47 by Roxi Weiss MD) Diverticulitis (Acute) 28-year-old male with diverticulitis with microperforation 1. Continue n.p.o./IV fluids and strict I's and O's. Plan to continue to treat conservatively unless increased WBC/pain/etc. No plans to advance diet to clears until pain free/normal WBC, then will go slowly when advancement. 2. Continue Zosyn IV antibiotics 3. We will change morphine to Dilaudid for pain control and add some Toradol as long as his creatinine remains normal, we will try to keep caught up with the pain with pain meds. 4. My read of the CT abdomen pelvis looks about the same at this afternoon with just a couple of localized small air bubbles will await official read. Discussed with patient that if his pain did get worse/fevers he may need emergency surgery which would involve exploratory laparotomy possible bowel resection possible stoma. --addendum: official CT a/p read unchanged from previous-microperforation of sigmoid diverticulitis Roxi Weiss M.D. Pager: [phone] [facility] [address] [place] [address], [facility], [address] [place] [address] Office: [phone] Code Visit Inpatient E&M: [id number] Init Hosp L2
--- NOTE | 2018-08-28 21:49 | NURSING ---
Dr. Weiss called and advised that she did not see any big changes in CT scan. No surgery at this time. She changed some of his pain meds around. May have mouth swabs.
[2018-08-28] MEDS: Ketorolac 30 MG/ML Syringe IV (22:22)
[2018-08-28] MEDS: Piperacil/Tazobactam 3.375 GM/50 ML ML IV (22:29)
[2018-08-28] MEDS: Lactated Ringers 1,000 ML 999 ML IV (23:04)
--- NOTE | 2018-08-28 23:08 | NURSING ---
Bolus just now hung. Had to wait for another IV pump from another floor to infuse.
--- NOTE | 2018-08-28 23:41 | NURSING ---
Sruthi ARIAS assuming care of this pt at this time.
[2018-08-29] VITALS (10 sets, daily range): BP systolic 120–157; BP diastolic 66–97; PULSE 73–107; RESP 16–20; TEMP 36.1–37.6; O2SAT 95–100
[2018-08-29] MEDS: HYDROmorphone 0.5 MG/0.5 ML SYRINGE IV ×8 (00:17→20:21)
[2018-08-29] MEDS: 0.9% Normal Saline 1,000 ML 150 ML IV ×4 (00:29→20:39)
[2018-08-29 00:40] LABS: Mucous, Urine 0 SEEN /hpf (<or=2+)
[2018-08-29 00:44] LABS: Color, Urine Amber (Yellow); Glucose, Dipstick Normal (Normal); Ketone-Dipstick 5 mg/dl (Negative); Leukocyte Esterase-Dipstick 25 /ul (Negative); Nitrite-Dipstick Negative (Negative); Occult Blood-Urine 10 /ul (Negative); Protein-Dipstick 30 mg/dl (Negative); Urine Bilirubin Dipstick Negative (Negative); Urine Clarity Clear (Clear); Urine Urobilinogen Normal (Normal); Urine pH 6.5 (5.0 - 8.0)
[2018-08-29 01:01] LABS: Bacteria RARE /hpf (None Seen); Squamous Epithelial Cells - UA 0-5 SEEN /hpf (0-5)
[2018-08-29 01:02] LABS: Red Blood Cells-Urine 0-5 SEEN /hpf (0-5)
[2018-08-29 01:04] LABS: White Blood Cells 0-5 SEEN /hpf (0-5)
[2018-08-29] MEDS: Ondansetron 4 MG/2 ML Vial IV ×2 (03:35→20:21)
[2018-08-29] MEDS: Piperacil/Tazobactam 3.375 GM/50 ML ML IV ×3 (05:41→22:45)
[2018-08-29] MEDS: 0.9% NaCl Peripheral Flush Adult/Peds IV (05:44)
[2018-08-29 05:52] LABS: Absolute Lymphocyte Count 0.87 X10^3/ul (0.83-4.51); Absolute Neutrophil Count 14.9 X10^3/uL (2.0-7.7); Basophil# 0.01 X10^3/uL; Basophil% 0.1 % (0-1); Eosinophil# 0.15 X10^3/uL; Eosinophils% 0.9 % (0-5); Hematocrit 42.9 % (40-54); Hemoglobin 14.1 g/dl (13.0-16.5); Lymphocyte # 0.87 X10^3/ul (4.0); Lymphocyte % 5.3 % (19-41); Mean Corp Hgb Conc 32.9 g/gl (32-36); Mean Corpuscular Volume 88.3 fL (80-94); Mean Platelet Vol. 10.9 fl (6.2-12.0); Monocyte# 0.57 X10^3/uL; Monocyte% 3.4 % (0-10); Neutrophil # 14.91 X10^3/uL (2.7-7.7); Neutrophil % 90.1 % (47-70); Platelet Count 200 K/mm3 (150-450); RBC Distribution Width CV 13.7 % (11.6-14.6); RBC Distribution Width SD 44.4 fl (35.1-43.9); Red Blood Count 4.86 M/mm3 (4.6-6.2); White Blood Count 16.5 K/mm3 (4.4-11.0)
[2018-08-29 05:59] LABS: POSITIVE COUNT NO; POSITIVE DIFFERENTIAL NO; POSITIVE MORPHOLOGY NO
[2018-08-29 06:11] LABS: Anion Gap 10 (5-15); BUN 10 mg/dL (7-18); Calcium,Total 8.3 mg/dL (8.5-10.1); Chloride 106 mmol/L (98-107); Creatinine, Serum 0.91 mg/dL (0.70-1.30); EST Glomerular Filtration Rate 105 mL/min (>60); Est Glom Filt Rate - Afr Amer 127 mL/min (>60); Estimated Creatinine Clearance 132.65 ml/min; Glucose 88 mg/dL (74-106); Potassium 3.5 mmol/L (3.5-5.1); Sodium Level 141 mmol/L (136-145)
[2018-08-29] MEDS: Lactated Ringers 1,000 ML 999 ML IV (07:22)
[2018-08-29] MEDS: Ketorolac 30 MG/ML Syringe IV ×3 (07:23→22:45)
--- NOTE | 2018-08-29 07:30 | PCM.PN.SRG ---
Patient Problems: Active and Suspected Problems (Last Updated 08/28/18 @ 21:47 by Roxi Weiss MD) Diverticulitis (Acute) Subjective: Patient still complains of lower abdominal pain, patient states the Toradol actually works better than the narcotic - Physical Exam General: Alert, Oriented x3, Cooperative Lungs: Normal air movement Abdomen: Soft, Non-Distended, Tender - lower quadrants bilaterally, equivocal rebound, no guarding Extremities: No clubbing, No cyanosis, No edema Vital Signs Temp Pulse Resp BP Pulse Ox 99.6 F H 105 H 16 137/75 H 97 08/29/18 02:00 08/29/18 03:00 08/29/18 02:00 08/29/18 02:00 08/29/18 02:00 Oxygen Delivery Method Room Air Weight: 258 lb 6.108 oz Body Mass Index (BMI) 34.9 Intake and Output for Last 24 Hours 08/27/18 08/28/18 08/29/18 23:59 23:59 23:59 Intake Total 476 / 476 2100 / 2100 Output Total 0 / 0 200 / 200 Balance 476 / 476 1900 / 1900 Laboratory Tests Past 24 Hrs 08/28/18 08/28/18 08/28/18 12:40 12:40 13:55 WBC 17.8 H RBC 5.65 Hgb 16.8 H Hct 50.1 MCV 88.7 MCH 29.7 MCHC 33.5 RDW 13.6 RDW Differential 44.1 H Plt Count 246 MPV 11.0 Immature Gran % (Auto) 0.100 Neut % (Auto) 73.1 H Lymph % (Auto) 8.2 L [place] % (Auto) 3.8 Eos % (Auto) 14.7 H Baso % (Auto) 0.1 Absolute Neuts (auto) 13.0 H Absolute Lymphs (auto) 1.45 Total Counted Not Reportable Differential Comment SCANNED Diff Path Review May foll Sodium 138 Potassium 4.2 Chloride 104 Carbon Dioxide 29.0 Anion Gap 5 BUN 7 Creatinine 0.99 Estim Creat Clear Calc 121.93 Est GFR (MDRD) Af Amer 116 Est GFR (MDRD) Non-Af 96 BUN/Creatinine Ratio 7.1 L Glucose 100 Lactic Acid Calcium 8.6 Total Bilirubin 0.80 Direct Bilirubin 0.20 AST 26 ALT 59 Alkaline Phosphatase 86 Total Protein 8.7 H Albumin 4.3 Globulin 4.4 H Urine Color Urine Clarity Urine pH Ur Specific [place] Urine Protein Urine Glucose (UA) Urine Ketones Urine Occult Blood Urine Nitrite Urine Bilirubin Urine Urobilinogen Ur Leukocyte Esterase Urine RBC Urine WBC Ur Squamous Epith Cells Urine Bacteria Urine Mucus 08/28/18 08/29/18 08/29/18 13:55 00:25 05:34 WBC 16.5 H RBC 4.86 Hgb 14.1 Hct 42.9 MCV 88.3 MCH 29.0 MCHC 32.9 RDW 13.7 RDW Differential 44.4 H Plt Count 200 MPV 10.9 Immature Gran % (Auto) 0.200 Neut % (Auto) 90.1 H Lymph % (Auto) 5.3 L [place] % (Auto) 3.4 Eos % (Auto) 0.9 Baso % (Auto) 0.1 Absolute Neuts (auto) 14.9 H Absolute Lymphs (auto) 0.87 Total Counted Not Reportable Differential Comment Diff Path Review Sodium Potassium Chloride Carbon Dioxide Anion Gap BUN Creatinine Estim Creat Clear Calc Est GFR (MDRD) Af Amer Est GFR (MDRD) Non-Af BUN/Creatinine Ratio Glucose Lactic Acid 1.3 Calcium Total Bilirubin Direct Bilirubin AST ALT Alkaline Phosphatase Total Protein Albumin Globulin Urine Color [place] Urine Clarity Clear Urine pH 6.5 Ur Specific [place] 1.010 Urine Protein 30 H Urine Glucose (UA) Normal Urine Ketones 5 H Urine Occult Blood 10 H Urine Nitrite Negative Urine Bilirubin Negative Urine Urobilinogen Normal Ur Leukocyte Esterase 25 H Urine RBC 0-5 SEEN Urine WBC 0-5 SEEN Ur Squamous Epith Cells 0-5 SEEN Urine Bacteria RARE Urine Mucus 0 SEEN 08/29/18 05:34 WBC RBC Hgb Hct MCV MCH MCHC RDW RDW Differential Plt Count MPV Immature Gran % (Auto) Neut % (Auto) Lymph % (Auto) [place] % (Auto) Eos % (Auto) Baso % (Auto) Absolute Neuts (auto) Absolute Lymphs (auto) Total Counted Differential Comment Diff Path Review Sodium 141 Potassium 3.5 Chloride 106 Carbon Dioxide 25.0 Anion Gap 10 BUN 10 Creatinine 0.91 Estim Creat Clear Calc 132.65 Est GFR (MDRD) Af Amer 127 Est GFR (MDRD) Non-Af 105 BUN/Creatinine Ratio 11.0 Glucose 88 Lactic Acid Calcium 8.3 L Total Bilirubin Direct Bilirubin AST ALT Alkaline Phosphatase Total Protein Albumin Globulin Urine Color Urine Clarity Urine pH Ur Specific [place] Urine Protein Urine Glucose (UA) Urine Ketones Urine Occult Blood Urine Nitrite Urine Bilirubin Urine Urobilinogen Ur Leukocyte Esterase Urine RBC Urine WBC Ur Squamous Epith Cells Urine Bacteria Urine Mucus Medical Necessity - Tobacco Use Smoking Status: Light Smoker (<10/day) Tobacco Use: Cigarettes Assessment/Plan All Active Problems (Last Updated 08/28/18 @ 21:47 by Roxi Weiss MD) Diverticulitis (Acute) 28-year-old male with diverticulitis with microperforation 1. Continue n.p.o./IV fluids and strict I's and O's. Plan to continue to treat conservatively unless increased WBC/pain/etc. No plans to advance diet to clears until pain free/normal WBC, then will go slowly when advancement. 2. Continue Zosyn IV antibiotics 3. continue pain control with dilaudid/toradol 4. CT a/p was read as unchanged. Roxi Weiss M.D. Pager: [phone] [facility] [address] [place] [address], [facility], [address] [place] [address] Office: [phone]
--- NOTE | 2018-08-29 07:33 | PN.SURG_ITS ---
Patient Problems: Active and Suspected Problems (Last Updated 08/28/18 @ 21:47 by Roxi Weiss MD) Diverticulitis (Acute) Subjective: Patient still complains of lower abdominal pain, patient states the Toradol actually works better than the narcotic - Physical Exam General: Alert, Oriented x3, Cooperative Lungs: Normal air movement Abdomen: Soft, Non-Distended, Tender - lower quadrants bilaterally, equivocal rebound, no guarding Extremities: No clubbing, No cyanosis, No edema Vital Signs Temp Pulse Resp BP Pulse Ox 99.6 F H 105 H 16 137/75 H 97 08/29/18 02:00 08/29/18 03:00 08/29/18 02:00 08/29/18 02:00 08/29/18 02:00 Oxygen Delivery Method Room Air Weight: 258 lb 6.108 oz Body Mass Index (BMI) 34.9 Intake and Output for Last 24 Hours 08/27/18 08/28/18 08/29/18 23:59 23:59 23:59 Intake Total 476 / 476 2100 / 2100 Output Total 0 / 0 200 / 200 Balance 476 / 476 1900 / 1900 Laboratory Tests Past 24 Hrs 08/28/18 08/28/18 08/28/18 12:40 12:40 13:55 WBC 17.8 H RBC 5.65 Hgb 16.8 H Hct 50.1 MCV 88.7 MCH 29.7 MCHC 33.5 RDW 13.6 RDW Differential 44.1 H Plt Count 246 MPV 11.0 Immature Gran % (Auto) 0.100 Neut % (Auto) 73.1 H Lymph % (Auto) 8.2 L [place] % (Auto) 3.8 Eos % (Auto) 14.7 H Baso % (Auto) 0.1 Absolute Neuts (auto) 13.0 H Absolute Lymphs (auto) 1.45 Total Counted Not Reportable Differential Comment SCANNED Diff Path Review May foll Sodium 138 Potassium 4.2 Chloride 104 Carbon Dioxide 29.0 Anion Gap 5 BUN 7 Creatinine 0.99 Estim Creat Clear Calc 121.93 Est GFR (MDRD) Af Amer 116 Est GFR (MDRD) Non-Af 96 BUN/Creatinine Ratio 7.1 L Glucose 100 Lactic Acid Calcium 8.6 Total Bilirubin 0.80 Direct Bilirubin 0.20 AST 26 ALT 59 Alkaline Phosphatase 86 Total Protein 8.7 H Albumin 4.3 Globulin 4.4 H Urine Color Urine Clarity Urine pH Ur Specific [place] Urine Protein Urine Glucose (UA) Urine Ketones Urine Occult Blood Urine Nitrite Urine Bilirubin Urine Urobilinogen Ur Leukocyte Esterase Urine RBC Urine WBC Ur Squamous Epith Cells Urine Bacteria Urine Mucus 08/28/18 08/29/18 08/29/18 13:55 00:25 05:34 WBC 16.5 H RBC 4.86 Hgb 14.1 Hct 42.9 MCV 88.3 MCH 29.0 MCHC 32.9 RDW 13.7 RDW Differential 44.4 H Plt Count 200 MPV 10.9 Immature Gran % (Auto) 0.200 Neut % (Auto) 90.1 H Lymph % (Auto) 5.3 L [place] % (Auto) 3.4 Eos % (Auto) 0.9 Baso % (Auto) 0.1 Absolute Neuts (auto) 14.9 H Absolute Lymphs (auto) 0.87 Total Counted Not Reportable Differential Comment Diff Path Review Sodium Potassium Chloride Carbon Dioxide Anion Gap BUN Creatinine Estim Creat Clear Calc Est GFR (MDRD) Af Amer Est GFR (MDRD) Non-Af BUN/Creatinine Ratio Glucose Lactic Acid 1.3 Calcium Total Bilirubin Direct Bilirubin AST ALT Alkaline Phosphatase Total Protein Albumin Globulin Urine Color [place] Urine Clarity Clear Urine pH 6.5 Ur Specific [place] 1.010 Urine Protein 30 H Urine Glucose (UA) Normal Urine Ketones 5 H Urine Occult Blood 10 H Urine Nitrite Negative Urine Bilirubin Negative Urine Urobilinogen Normal Ur Leukocyte Esterase 25 H Urine RBC 0-5 SEEN Urine WBC 0-5 SEEN Ur Squamous Epith Cells 0-5 SEEN Urine Bacteria RARE Urine Mucus 0 SEEN 08/29/18 05:34 WBC RBC Hgb Hct MCV MCH MCHC RDW RDW Differential Plt Count MPV Immature Gran % (Auto) Neut % (Auto) Lymph % (Auto) [place] % (Auto) Eos % (Auto) Baso % (Auto) Absolute Neuts (auto) Absolute Lymphs (auto) Total Counted Differential Comment Diff Path Review Sodium 141 Potassium 3.5 Chloride 106 Carbon Dioxide 25.0 Anion Gap 10 BUN 10 Creatinine 0.91 Estim Creat Clear Calc 132.65 Est GFR (MDRD) Af Amer 127 Est GFR (MDRD) Non-Af 105 BUN/Creatinine Ratio 11.0 Glucose 88 Lactic Acid Calcium 8.3 L Total Bilirubin Direct Bilirubin AST ALT Alkaline Phosphatase Total Protein Albumin Globulin Urine Color Urine Clarity Urine pH Ur Specific [place] Urine Protein Urine Glucose (UA) Urine Ketones Urine Occult Blood Urine Nitrite Urine Bilirubin Urine Urobilinogen Ur Leukocyte Esterase Urine RBC Urine WBC Ur Squamous Epith Cells Urine Bacteria Urine Mucus Medical Necessity - Tobacco Use Smoking Status: Light Smoker (<10/day) Tobacco Use: Cigarettes Assessment/Plan All Active Problems (Last Updated 08/28/18 @ 21:47 by Roxi Weiss MD) Diverticulitis (Acute) 28-year-old male with diverticulitis with microperforation 1. Continue n.p.o./IV fluids and strict I's and O's. Plan to continue to treat conservatively unless increased WBC/pain/etc. No plans to advance diet to clears until pain free/normal WBC, then will go slowly when advancement. 2. Continue Zosyn IV antibiotics 3. continue pain control with dilaudid/toradol 4. CT a/p was read as unchanged. Roxi Weiss M.D. Pager: [phone] [facility] [address] [place] [address], [facility], [address] [place] [address] Office: [phone]
[2018-08-29] MEDS: Enoxaparin 40 MG/0.4 ML Syringe SC (09:20)
--- NOTE | 2018-08-29 09:58 | PCM.PROGNOTE ---
Patient Problems: Active and Suspected Problems (Last Updated 08/28/18 @ 21:47 by Roxi Weiss MD) Diverticulitis (Acute) Subjective: Chief complaint: Follow-up after admission for acute diverticulitis of the sigmoid colon with microperforation. Patient seen and examined. No acute events overnight. This morning, he is still complaining of lower abdominal pain, sharp pain, 10 out of 10 in severity, not radiating and no associated symptoms. He reported no improvement. He denied fever or chills. Denied constipation or diarrhea. Vital signs are stable. - Physical Exam General: Alert, Oriented x3, Cooperative, - - He is in moderate to severe pain. HEENT: Atraumatic, PERRLA, EOMI, Normocephalic Oral: Moist Mucosa, No Gingival or Mucosal Lesions/ Ulcerations Neck: Supple, No JVD, Negative Carotid Bruits, Trachea Midline, Thyroid Normal Size and Texture Lungs: Clear to auscultation, Normal air movement, No rhonchi, No wheeze, No rales Cardiovascular: Regular rate, Regular Rhythm, Normal S1, Normal S2, No murmurs, PMI Normal Abdomen: Bowel Sounds Present, Non-Distended, No Hepato-splenomegaly, Tender - Lower abdominal tenderness, guarding, no rigidity. Extremities: No clubbing, No cyanosis, No edema Skin: No rashes, No breakdown Lymphatic: No Cervical, Supraclavicular, or Inguinal Adenopathy Neurological: Cranial nerves II-XII grossly intact, Motor Exam 5/5 strength throughout Psych/Mental Status: Normal Affect, Appropriate, Alert and oriented to time, place, person, mood and affect Vital Signs Temp Pulse Resp BP Pulse Ox 98 F 76 20 H 140/74 H 96 08/29/18 08:55 08/29/18 09:31 08/29/18 09:31 08/29/18 08:55 08/29/18 09:31 Oxygen Delivery Method Room Air Weight: 258 lb 6.108 oz Body Mass Index (BMI) 34.9 Intake and Output for Last 24 Hours 08/27/18 08/28/18 08/29/18 23:59 23:59 23:59 Intake Total 476 / 476 2100 / 2100 Output Total 0 / 0 200 / 200 Balance 476 / 476 1900 / 1900 Laboratory Tests Past 24 Hrs 11/08/28/18 08/28/18 12:40 12:40 13:55 WBC 17.8 H RBC 5.65 Hgb 16.8 H Hct 50.1 MCV 88.7 MCH 29.7 MCHC 33.5 RDW 13.6 RDW Differential 44.1 H Plt Count 246 MPV 11.0 Immature Gran % (Auto) 0.100 Neut % (Auto) 73.1 H Lymph % (Auto) 8.2 L [place] % (Auto) 3.8 Eos % (Auto) 14.7 H Baso % (Auto) 0.1 Absolute Neuts (auto) 13.0 H Absolute Lymphs (auto) 1.45 Total Counted Not Reportable Differential Comment SCANNED Diff Path Review May foll Sodium 138 Potassium 4.2 Chloride 104 Carbon Dioxide 29.0 Anion Gap 5 BUN 7 Creatinine 0.99 Estim Creat Clear Calc 121.93 Est GFR (MDRD) Af Amer 116 Est GFR (MDRD) Non-Af 96 BUN/Creatinine Ratio 7.1 L Glucose 100 Lactic Acid Calcium 8.6 Total Bilirubin 0.80 Direct Bilirubin 0.20 AST 26 ALT 59 Alkaline Phosphatase 86 Total Protein 8.7 H Albumin 4.3 Globulin 4.4 H Urine Color Urine Clarity Urine pH Ur Specific [place] Urine Protein Urine Glucose (UA) Urine Ketones Urine Occult Blood Urine Nitrite Urine Bilirubin Urine Urobilinogen Ur Leukocyte Esterase Urine RBC Urine WBC Ur Squamous Epith Cells Urine Bacteria Urine Mucus 08/28/18 08/29/18 08/29/18 13:55 00:25 05:34 WBC 16.5 H RBC 4.86 Hgb 14.1 Hct 42.9 MCV 88.3 MCH 29.0 MCHC 32.9 RDW 13.7 RDW Differential 44.4 H Plt Count 200 MPV 10.9 Immature Gran % (Auto) 0.200 Neut % (Auto) 90.1 H Lymph % (Auto) 5.3 L [place] % (Auto) 3.4 Eos % (Auto) 0.9 Baso % (Auto) 0.1 Absolute Neuts (auto) 14.9 H Absolute Lymphs (auto) 0.87 Total Counted Not Reportable Differential Comment Diff Path Review Sodium Potassium Chloride Carbon Dioxide Anion Gap BUN Creatinine Estim Creat Clear Calc Est GFR (MDRD) Af Amer Est GFR (MDRD) Non-Af BUN/Creatinine Ratio Glucose Lactic Acid 1.3 Calcium Total Bilirubin Direct Bilirubin AST ALT Alkaline Phosphatase Total Protein Albumin Globulin Urine Color [place] Urine Clarity Clear Urine pH 6.5 Ur Specific [place] 1.010 Urine Protein 30 H Urine Glucose (UA) Normal Urine Ketones 5 H Urine Occult Blood 10 H Urine Nitrite Negative Urine Bilirubin Negative Urine Urobilinogen Normal Ur Leukocyte Esterase 25 H Urine RBC 0-5 SEEN Urine WBC 0-5 SEEN Ur Squamous Epith Cells 0-5 SEEN Urine Bacteria RARE Urine Mucus 0 SEEN 08/29/18 05:34 WBC RBC Hgb Hct MCV MCH MCHC RDW RDW Differential Plt Count MPV Immature Gran % (Auto) Neut % (Auto) Lymph % (Auto) [place] % (Auto) Eos % (Auto) Baso % (Auto) Absolute Neuts (auto) Absolute Lymphs (auto) Total Counted Differential Comment Diff Path Review Sodium 141 Potassium 3.5 Chloride 106 Carbon Dioxide 25.0 Anion Gap 10 BUN 10 Creatinine 0.91 Estim Creat Clear Calc 132.65 Est GFR (MDRD) Af Amer 127 Est GFR (MDRD) Non-Af 105 BUN/Creatinine Ratio 11.0 Glucose 88 Lactic Acid Calcium 8.3 L Total Bilirubin Direct Bilirubin AST ALT Alkaline Phosphatase Total Protein Albumin Globulin Urine Color Urine Clarity Urine pH Ur Specific [place] Urine Protein Urine Glucose (UA) Urine Ketones Urine Occult Blood Urine Nitrite Urine Bilirubin Urine Urobilinogen Ur Leukocyte Esterase Urine RBC Urine WBC Ur Squamous Epith Cells Urine Bacteria Urine Mucus Clinical Impression(s) from Imaging Studies Abdomen/Pelvis CT 08/28/18 12:13 IMPRESSION: Findings in keeping with a noncomplicated acute sigmoid diverticulitis. Fatty infiltration of the liver. Electronically Signed: Chaka Burciaga MD at 13:51 EST Tel [phone], Service support , Abdomen/Pelvis CT 08/28/18 20:19 IMPRESSION: Acute diverticulitis of the sigmoid colon with microperforation but no well-defined abscess at this time N.B. : DERIAN CLAUDIO MD, confirmed on 08/29/2018 00:27:41 (ET) that the referring physician received the results and did not require a verbal consultation. Electronically Signed: Dakota Dunham MD at 22:04 EST , Service support , ADDENDUM: 08/29/18 0053 Medical Necessity - Tobacco Use Smoking Status: Light Smoker (<10/day) Tobacco Use: Cigarettes Assessment/Plan All Active Problems (Last Updated 08/28/18 @ 21:47 by Roxi Weiss MD) Diverticulitis (Acute) This is a 28 years old male patient presented to the emergency room because of lower abdominal pain and he was found to have acute sepsis secondary to acute sigmoid diverticulitis with microperforation. #1 acute sigmoid diverticulitis with microperforation/sepsis: Patient is septic on admission based on tachycardia, leukocytosis and source of infection. His lactic acid was normal. LFT was normal as well. He is on IV Zosyn. Still symptomatic with abdominal pain, no improvement. Hemodynamically stable, afebrile. CT scan abdomen and pelvis reviewed, revealed sigmoid diverticulitis with microperforation, no abscess. He is on IV fluids, IV Toradol and IV Dilaudid as needed. General surgeon on the case. So far, plan is to go with conservative management, patient may or may not need surgery. Plan: Change Toradol to every 8 hours scheduled, continue other treatments, repeat CBC tomorrow morning. #2 DVT prophylaxis: Subcu Lovenox. This note was generated with [employer] dictation software. It may contain incorrect words, spelling, and punctuation that were not noted in checking the note before signing. Code Visit Inpatient E&M: 10534 Subs Hosp L3
--- NOTE | 2018-08-29 10:04 | PN_ITS ---
Patient Problems: Active and Suspected Problems (Last Updated 08/28/18 @ 21:47 by Roxi Weiss MD) Diverticulitis (Acute) Subjective: Chief complaint: Follow-up after admission for acute diverticulitis of the sigmoid colon with microperforation. Patient seen and examined. No acute events overnight. This morning, he is stil l complaining of lower abdominal pain, sharp pain, 10 out of 10 in severity, not radiating and no associated symptoms. He reported no improvement. He denied fever or chills. Denied constipation or diarrhea. Vital signs are stable. - Physical Exam General: Alert, Oriented x3, Cooperative, - - He is in moderate to severe pain. HEENT: Atraumatic, PERRLA, EOMI, Normocephalic Oral: Moist Mucosa, No Gingival or Mucosal Lesions/ Ulcerations Neck: Supple, No JVD, Negative Carotid Bruits, Trachea Midline, Thyroid Normal Size and Texture Lungs: Clear to auscultation, Normal air movement, No rhonchi, No wheeze, No rales Cardiovascular: Regular rate, Regular Rhythm, Normal S1, Normal S2, No murmurs, PMI Normal Abdomen: Bowel Sounds Present, Non-Distended, No Hepato-splenomegaly, Tender - Lower abdominal tenderness, guarding, no rigidity. Extremities: No clubbing, No cyanosis, No edema Skin: No rashes, No breakdown Lymphatic: No Cervical, Supraclavicular, or Inguinal Adenopathy Neurological: Cranial nerves II-XII grossly intact, Motor Exam 5/5 strength throughout Psych/Mental Status: Normal Affect, Appropriate, Alert and oriented to time, place, person, mood and affect Vital Signs Temp Pulse Resp BP Pulse Ox 98 F 76 20 H 140/74 H 96 08/29/18 08:55 08/29/18 09:31 08/29/18 09:31 08/29/18 08:55 08/29/18 09:31 Oxygen Delivery Method Room Air Weight: 258 lb 6.108 oz Body Mass Index (BMI) 34.9 Intake and Output for Last 24 Hours 08/27/18 08/28/18 08/29/18 23:59 23:59 23:59 Intake Total 476 / 476 2100 / 2100 Output Total 0 / 0 200 / 200 Balance 476 / 476 1900 / 1900 Laboratory Tests Past 24 Hrs 08/28/18 08/28/18 08/28/18 12:40 12:40 13:55 WBC 17.8 H RBC 5.65 Hgb 16.8 H Hct 50.1 MCV 88.7 MCH 29.7 MCHC 33.5 RDW 13.6 RDW Differential 44.1 H Plt Count 246 MPV 11.0 Immature Gran % (Auto) 0.100 Neut % (Auto) 73.1 H Lymph % (Auto) 8.2 L [place] % (Auto) 3.8 Eos % (Auto) 14.7 H Baso % (Auto) 0.1 Absolute Neuts (auto) 13.0 H Absolute Lymphs (auto) 1.45 Total Counted Not Reportable Differential Comment SCANNED Diff Path Review May foll Sodium 138 Potassium 4.2 Chloride 104 Carbon Dioxide 29.0 Anion Gap 5 BUN 7 Creatinine 0.99 Estim Creat Clear Calc 121.93 Est GFR (MDRD) Af Amer 116 Est GFR (MDRD) Non-Af 96 BUN/Creatinine Ratio 7.1 L Glucose 100 Lactic Acid Calcium 8.6 Total Bilirubin 0.80 Direct Bilirubin 0.20 AST 26 ALT 59 Alkaline Phosphatase 86 Total Protein 8.7 H Albumin 4.3 Globulin 4.4 H Urine Color Urine Clarity Urine pH Ur Specific [place] Urine Protein Urine Glucose (UA) Urine Ketones Urine Occult Blood Urine Nitrite Urine Bilirubin Urine Urobilinogen Ur Leukocyte Esterase Urine RBC Urine WBC Ur Squamous Epith Cells Urine Bacteria Urine Mucus 08/28/18 08/29/18 08/29/18 13:55 00:25 05:34 WBC 16.5 H RBC 4.86 Hgb 14.1 Hct 42.9 MCV 88.3 MCH 29.0 MCHC 32.9 RDW 13.7 RDW Differential 44.4 H Plt Count 200 MPV 10.9 Immature Gran % (Auto) 0.200 Neut % (Auto) 90.1 H Lymph % (Auto) 5.3 L [place] % (Auto) 3.4 Eos % (Auto) 0.9 Baso % (Auto) 0.1 Absolute Neuts (auto) 14.9 H Absolute Lymphs (auto) 0.87 Total Counted Not Reportable Differential Comment Diff Path Review Sodium Potassium Chloride Carbon Dioxide Anion Gap BUN Creatinine Estim Creat Clear Calc Est GFR (MDRD) Af Amer Est GFR (MDRD) Non-Af BUN/Creatinine Ratio Glucose Lactic Acid 1.3 Calcium Total Bilirubin Direct Bilirubin AST ALT Alkaline Phosphatase Total Protein Albumin Globulin Urine Color [place]ani Urine Clarity Clear Urine pH 6.5 Ur Specific [place] 1.010 Urine Protein 30 H Urine Glucose (UA) Normal Urine Ketones 5 H Urine Occult Blood 10 H Urine Nitrite Negative Urine Bilirubin Negative Urine Urobilinogen Normal Ur Leukocyte Esterase 25 H Urine RBC 0-5 SEEN Urine WBC 0-5 SEEN Ur Squamous Epith Cells 0-5 SEEN Urine Bacteria RARE Urine Mucus 0 SEEN 08/29/18 05:34 WBC RBC Hgb Hct MCV MCH MCHC RDW RDW Differential Plt Count MPV Immature Gran % (Auto) Neut % (Auto) Lymph % (Auto) [place] % (Auto) Eos % (Auto) Baso % (Auto) Absolute Neuts (auto) Absolute Lymphs (auto) Total Counted Differential Comment Diff Path Review Sodium 141 Potassium 3.5 Chloride 106 Carbon Dioxide 25.0 Anion Gap 10 BUN 10 Creatinine 0.91 Estim Creat Clear Calc 132.65 Est GFR (MDRD) Af Amer 127 Est GFR (MDRD) Non-Af 105 BUN/Creatinine Ratio 11.0 Glucose 88 Lactic Acid Calcium 8.3 L Total Bilirubin Direct Bilirubin AST ALT Alkaline Phosphatase Total Protein Albumin Globulin Urine Color Urine Clarity Urine pH Ur Specific [place] Urine Protein Urine Glucose (UA) Urine Ketones Urine Occult Blood Urine Nitrite Urine Bilirubin Urine Urobilinogen Ur Leukocyte Esterase Urine RBC Urine WBC Ur Squamous Epith Cells Urine Bacteria Urine Mucus Clinical Impression(s) from Imaging Studies Abdomen/Pelvis CT 08/28/18 12:13 IMPRESSION: Findings in keeping with a noncomplicated acute sigmoid diverticulitis. Fatty infiltration of the liver. Electronically Signed: Chaka Burciaga MD at 13:51 EST Tel [phone], Service support , Abdomen/Pelvis CT 08/28/18 20:19 IMPRESSION: Acute diverticulitis of the sigmoid colon with microperforation but no well-defined abscess at this time N.B. : DERIAN CLAUDIO MD, confirmed on 08/29/2018 00:27:41 (ET) that the referring physician received the results and did not require a verbal consultation. Electronically Signed: Dakota Dunham MD at 22:04 EST , Service support , ADDENDUM: 08/29/18 0053 Medical Necessity - Tobacco Use Smoking Status: Light Smoker (<10/day) Tobacco Use: Cigarettes Assessment/Plan All Active Problems (Last Updated 08/28/18 @ 21:47 by Roxi Weiss MD) Diverticulitis (Acute) This is a 28 years old male patient presented to the emergency room because of lower abdominal pain and he was found to have acute sepsis secondary to acute sigmoid diverticulitis with microperforation. #1 acute sigmoid diverticulitis with microperforation/sepsis: Patient is septic on admission based on tachycardia, leukocytosis and source of infection. His lactic acid was normal. LFT was normal as well. He is on IV Zosyn. Still symptomatic with abdominal pain, no improvement. Hemodynamically stable, afebrile. CT scan abdomen and pelvis reviewed, revealed sigmoid diverticulitis with microperforation, no abscess. He is on IV fluids, IV Toradol and IV Dilaudid as needed. General surgeon on the case. So far, plan is to go with conservative management, patient may or may not need surgery. Plan: Change Toradol to every 8 hours scheduled, continue other treatments, repeat CBC tomorrow morning. #2 DVT prophylaxis: Subcu Lovenox. This note was generated with [email or web address] dictation software. It may contain incorrect words, spelling, and punctuation that were not noted in checking the note before signing. Code Visit Inpatient E&M: 53320 Subs Hosp L3
--- NOTE | 2018-08-29 11:05 | CASEMGMT ---
RN JAX Face to Face with patient for initial transition planning/care coordination assessment. RN CM introduced self and role at [facility]. Patient lying in bed, alert and oriented. Patient willing to participate in assessment and is able to answer all questions appropriately. Care providers, pharmacy, and demographics verified. Patient wishes to discharge home, denies need for home health at this time. Patient states he has no further needs or concerns at this time. CM to follow for discharge planning needs that may arise. PCP: Berna Wren [employer]PERATOR Specialists: None Preferred Pharmacy: [facility] Insurance: [employer] Prescription Benefit: [employer] Living Will/HPOA: None LNOK: Living Arrangements: Patient lives with in mobile home with 3 steps to enter the home. Independent at home. Transportation: Self or [facility] DME/HHC: Patient denies need for DME Disposition Plan: Patient to discharge home with family support and follow-up plans in place. Louise GIVENS, RN, CM
[2018-08-29 12:23] LABS: Pathologist Review Reviewed
--- NOTE | 2018-08-29 15:12 | CHAPLAIN ---
Type of Pastoral Visit ___ Initial Visit _x__ Follow-up Visit ___ On-call Visit ___ General Patient Visit ___ Spiritual Assessment ___ Family Conference ___ Bereavement ___ Rapid Response ___ Code Blue ___ Other (describe below) Pastoral Care Referral From _x__ Patient ___ Family ___ Nurse ___ Physician ___ Marketing Administrator ___ Hydrogeology Professor ___ Other (describe below) Sacrament/Intervention _x__ Active listening ___ Anointing ___ Anabaptist ___ Bereavement ___ Communion ___ [place]a exploration ___ _x__ Life review _x__ Prayer ___ Reconciliation ___ Sacrament of Sick _x__ Supportive presence ___ Wedding ___ Other (describe below) Pastoral Comments follow up of patient that I met in ED yesterday afternoon and who had requested follow up visit
[2018-08-30] MEDS: HYDROmorphone 0.5 MG/0.5 ML SYRINGE IV ×3 (01:50→08:15)
[2018-08-30] MEDS: 0.9% NaCl Peripheral Flush Adult/Peds IV ×3 (01:51→22:25)
[2018-08-30 02:05] VITALS: BP 155/79; PULSE 87; RESP 20; TEMP 36.9; O2SAT 100
[2018-08-30] MEDS: 0.9% Normal Saline 1,000 ML 150 ML IV ×2 (03:45→09:59)
[2018-08-30] MEDS: Ketorolac 30 MG/ML Syringe IV ×3 (06:07→22:25)
[2018-08-30] MEDS: Ondansetron 4 MG/2 ML Vial IV (06:07)
[2018-08-30] MEDS: Piperacil/Tazobactam 3.375 GM/50 ML ML IV ×3 (06:07→22:25)
[2018-08-30 07:32] LABS: Absolute Lymphocyte Count 0.77 X10^3/ul (0.83-4.51); Basophil# 0.01 X10^3/uL; Basophil% 0.1 % (0-1); Eosinophil# 0.23 X10^3/uL; Eosinophils% 2.4 % (0-5); Hematocrit 38.9 % (40-54); Hemoglobin 12.8 g/dl (13.0-16.5); Lymphocyte # 0.77 X10^3/ul (4.0); Lymphocyte % 8.2 % (19-41); Mean Corp Hgb Conc 32.9 g/gl (32-36); Mean Corpuscular Hgb 29.5 pg (27.0-32.0); Mean Corpuscular Volume 89.6 fL (80-94); Mean Platelet Vol. 11.3 fl (6.2-12.0); Monocyte% 4.2 % (0-10); Neutrophil # 8.02 X10^3/uL (2.7-7.7); POSITIVE COUNT NO; POSITIVE DIFFERENTIAL NO; POSITIVE MORPHOLOGY NO; Platelet Count 176 K/mm3 (150-450); RBC Distribution Width CV 13.5 % (11.6-14.6); RBC Distribution Width SD 43.8 fl (35.1-43.9); Red Blood Count 4.34 M/mm3 (4.6-6.2); White Blood Count 9.4 K/mm3 (4.4-11.0)
--- NOTE | 2018-08-30 07:45 | EKG12_ITS ---
Test Reason : PRE OP Blood Pressure : / mmHG Vent. Rate : 079 BPM Atrial Rate : 079 BPM P-R Int : 152 ms QRS Dur : 100 ms QT Int : 360 ms P-R-T Axes : 016 -39 008 degrees QTc Int : 412 ms Normal sinus rhythm Left axis deviation Poor R wave progression Abnormal ECG Confirmed by JAY ANDRADE, TIM ([id number]), fan mail editor ORESTES GAR ([id number]) on 09/04/2018 2:49:21 PM Referred By: PAT Confirmed By:TIM THOMPSON MD
[2018-08-30 08:03] VITALS: BP 161/91; PULSE 93; RESP 18; TEMP 36.7; O2SAT 98
--- NOTE | 2018-08-30 09:38 | PCM.PN.SRG ---
Patient Problems: Active and Suspected Problems (Last Updated 08/28/18 @ 21:47 by Roxi Weiss MD) Diverticulitis (Acute) Subjective: Patient is still complaining of abdominal discomfort. He has had no nausea or vomiting. Objective: Abdomen is soft he has voluntary guarding. - Physical Exam Vital Signs Temp Pulse Resp BP Pulse Ox 98.0 F 93 18 161/91 H 98 08/30/18 08:03 08/30/18 08:03 08/30/18 08:03 08/30/18 08:03 08/30/18 08:03 Oxygen Delivery Method Room Air Weight: 258 lb 6.108 oz Body Mass Index (BMI) 34.9 Intake and Output for Last 24 Hours 08/28/18 08/29/18 08/30/18 23:59 23:59 23:59 Intake Total 476 / 476 5569 / 5569 1168.8 / 1168.8 Output Total 0 / 0 650 / 650 250 / 250 Balance 476 / 476 4919 / 4919 918.8 / 918.8 Laboratory Tests Past 24 Hrs 08/28/18 08/30/18 12:40 07:14 WBC 9.4 RBC 4.34 L Hgb 12.8 L Hct 38.9 L MCV 89.6 MCH 29.5 MCHC 32.9 RDW 13.5 RDW Differential 43.8 Plt Count 176 MPV 11.3 Immature Gran % (Auto) 0.100 Neut % (Auto) 85.0 H Lymph % (Auto) 8.2 L [place] % (Auto) 4.2 Eos % (Auto) 2.4 Baso % (Auto) 0.1 Absolute Neuts (auto) 8.0 H Absolute Lymphs (auto) 0.77 L Total Counted Not Reportable Diff Path Review Reviewed Medical Necessity - Tobacco Use Smoking Status: Light Smoker (<10/day) Tobacco Use: Cigarettes Assessment/Plan All Active Problems (Last Updated 08/28/18 @ 21:47 by Roxi Weiss MD) Diverticulitis (Acute) We made significant improvement in his white count today he is not tachycardic he is not hypotensive and I believe it is appropriate for us to see if we can give him another day of IV antibiotics to see if his overall abdominal discomfort improves. I have counseled him and his family stating that if we can get him over this initial episode of acute inflammation this will greatly facilitate us being able to remove his sigmoid colon without having to give him a colostomy. We will reassess him tomorrow.
[2018-08-30] MEDS: oxyCODONE 5 MG Tablet PO ×3 (09:55→20:09)
[2018-08-30] MEDS: Enoxaparin 40 MG/0.4 ML Syringe SC (10:02)
--- NOTE | 2018-08-30 11:15 | PCM.PROGNOTE ---
Patient Problems: Active and Suspected Problems (Last Updated 08/28/18 @ 21:47 by Roxi Weiss MD) Diverticulitis (Acute) Subjective: Chief complaint: Follow-up after admission for acute sigmoid diverticulitis with microperforation and sepsis. Patient seen and examined. No acute events overnight. Although he still complaining of lower abdominal pain, subjectively he is looking better than yesterday. He denied nausea or vomiting. He denied constipation or diarrhea. He denied fever or chills. His vital signs are stable. His white blood cell count is back to normal. - Physical Exam General: Alert, Oriented x3, Cooperative, No apparent distress HEENT: Atraumatic, PERRLA, EOMI, Normocephalic Oral: Moist Mucosa, No Gingival or Mucosal Lesions/ Ulcerations Neck: Supple, No JVD, Negative Carotid Bruits, Trachea Midline, Thyroid Normal Size and Texture Lungs: Clear to auscultation, No rhonchi, No wheeze, No rales, Diminished Cardiovascular: Regular rate, Regular Rhythm, Normal S1, Normal S2, No murmurs, PMI Normal Abdomen: Bowel Sounds Present, Soft, Non-Distended, No Hepato-splenomegaly, Tender - Voluntary guarding, no rigidity. Extremities: No clubbing, No cyanosis, No edema Skin: No rashes, No breakdown Lymphatic: No Cervical, Supraclavicular, or Inguinal Adenopathy Neurological: Cranial nerves II-XII grossly intact, Motor Exam 5/5 strength throughout Psych/Mental Status: Normal Affect, Appropriate, Alert and oriented to time, place, person, mood and affect Vital Signs Temp Pulse Resp BP Pulse Ox 98.0 F 93 18 161/91 H 98 08/30/18 08:03 08/30/18 08:03 08/30/18 08:03 08/30/18 08:03 08/30/18 08:03 Oxygen Delivery Method Room Air Weight: 258 lb 6.108 oz Body Mass Index (BMI) 34.9 Intake and Output for Last 24 Hours 08/28/18 08/29/18 08/30/18 23:59 23:59 23:59 Intake Total 476 / 476 5569 / 5569 1948.8 / 1948.8 Output Total 0 / 0 650 / 650 750 / 750 Balance 476 / 476 4919 / 4919 1198.8 / 1198.8 Laboratory Tests Past 24 Hrs 08/28/18 08/30/18 12:40 07:14 WBC 9.4 RBC 4.34 L Hgb 12.8 L Hct 38.9 L MCV 89.6 MCH 29.5 MCHC 32.9 RDW 13.5 RDW Differential 43.8 Plt Count 176 MPV 11.3 Immature Gran % (Auto) 0.100 Neut % (Auto) 85.0 H Lymph % (Auto) 8.2 L [place] % (Auto) 4.2 Eos % (Auto) 2.4 Baso % (Auto) 0.1 Absolute Neuts (auto) 8.0 H Absolute Lymphs (auto) 0.77 L Total Counted Not Reportable Diff Path Review Reviewed Medical Necessity - Tobacco Use Smoking Status: Light Smoker (<10/day) Tobacco Use: Cigarettes Assessment/Plan All Active Problems (Last Updated 08/28/18 @ 21:47 by Roxi Weiss MD) Diverticulitis (Acute) This is a 28 years old male patient presented to the emergency room because of lower abdominal pain and he was found to have acute sepsis secondary to acute sigmoid diverticulitis with microperforation. #1 acute sigmoid diverticulitis with microperforation/sepsis: Remains on IV Zosyn. He is still symptomatic with abdominal pain. No other symptoms. Vital signs are stable, afebrile. Vitals are count is back to normal. His lactic acid was normal. LFT was normal as well. CT scan abdomen and pelvis reviewed, revealed sigmoid diverticulitis with microperforation, no abscess. General surgeon on the case. Plan to continue conservative treatment, reassess tomorrow. #2 DVT prophylaxis: Subcu Lovenox. This note was generated with [employer] dictation software. It may contain incorrect words, spelling, and punctuation that were not noted in checking the note before signing. Code Visit Inpatient E&M: 18264 Subs Hosp L2
[2018-08-30 14:17] VITALS: BP 162/91; PULSE 102; RESP 18; TEMP 36.9; O2SAT 97
[2018-08-30] MEDS: 0.9% Normal Saline 1,000 ML 100 ML IV (19:15)
[2018-08-30] MEDS: Acetaminophen 500 MG Tablet 1000 MG PO (19:22)
[2018-08-30 20:08] VITALS: BP 160/74; PULSE 99; RESP 18; TEMP 36.8; O2SAT 99
[2018-08-30 20:24] VITALS: PULSE 99; RESP 18; O2SAT 99
[2018-08-31] VITALS (7 sets, daily range): BP systolic 146–166; BP diastolic 87–100; PULSE 78–90; RESP 16–20; TEMP 36.7–37.1; O2SAT 95–100
[2018-08-31] MEDS: Ondansetron 4 MG/2 ML Vial IV ×2 (01:58→17:04)
[2018-08-31] MEDS: oxyCODONE 5 MG Tablet PO ×5 (01:58→23:54)
[2018-08-31] MEDS: Acetaminophen 500 MG Tablet 1000 MG PO ×3 (03:40→21:37)
[2018-08-31] MEDS: Piperacil/Tazobactam 3.375 GM/50 ML ML IV ×3 (06:18→21:30)
[2018-08-31] MEDS: 0.9% Normal Saline 1,000 ML 100 ML IV ×2 (06:18→16:14)
[2018-08-31] MEDS: Ketorolac 30 MG/ML Syringe IV ×3 (06:19→21:30)
--- NOTE | 2018-08-31 08:00 | PCM.PN.SRG ---
Patient Problems: Active and Suspected Problems (Last Updated 08/28/18 @ 21:47 by Roxi Weiss MD) Diverticulitis (Acute) Subjective: Pain is still present. Not quite as bad as it was yesterday. No reported fevers no bowel movements is passing some small flatus Objective: Softer with some voluntary guarding. No obvious peritoneal signs. - Physical Exam Vital Signs Temp Pulse Resp BP Pulse Ox 98.5 F 84 20 H 147/89 H 100 08/31/18 02:03 08/31/18 02:03 08/31/18 02:15 08/31/18 02:03 08/31/18 02:15 Oxygen Delivery Method Room Air Weight: 258 lb 6.108 oz Body Mass Index (BMI) 34.9 Intake and Output for Last 24 Hours 08/29/18 08/30/18 08/31/18 23:59 23:59 23:59 Intake Total 5569 / 5569 1948.8 / 1948.8 2829 / 2829 Output Total 650 / 650 750 / 750 700 / 700 Balance 4919 / 4919 1198.8 / 1198.8 2129 / 2129 Medical Necessity - Tobacco Use Smoking Status: Light Smoker (<10/day) Tobacco Use: Cigarettes Assessment/Plan All Active Problems (Last Updated 08/28/18 @ 21:47 by Roxi Weiss MD) Diverticulitis (Acute) Continue IV antibiotics at this time we will add full liquids
[2018-08-31] MEDS: Enoxaparin 40 MG/0.4 ML Syringe SC (08:47)
--- NOTE | 2018-08-31 09:17 | PCM.PROGNOTE ---
Patient Problems: Active and Suspected Problems (Last Updated 08/28/18 @ 21:47 by Roxi Weiss MD) Diverticulitis (Acute) Subjective: Chief complaint: Follow-up after admission for acute sigmoid diverticulitis with microperforation and sepsis. Patient seen and examined. No acute events overnight. Today, is feeling better than yesterday, having less abdominal pain. Denied nausea or vomiting. Denied fever chills. His vital signs are stable. He was started on full liquid diet this morning. - Physical Exam General: Alert, Oriented x3, Cooperative, No apparent distress HEENT: Atraumatic, PERRLA, EOMI, Normocephalic Oral: Moist Mucosa, No Gingival or Mucosal Lesions/ Ulcerations Neck: Supple, No JVD, Negative Carotid Bruits, Trachea Midline, Thyroid Normal Size and Texture Lungs: Clear to auscultation, Normal air movement, No rhonchi, No wheeze, No rales Cardiovascular: Regular rate, Regular Rhythm, Normal S1, Normal S2, No murmurs, PMI Normal Abdomen: Bowel Sounds Present, Soft, Non-Distended, No Hepato-splenomegaly, Tender - Lower abdominal tenderness, no guarding or rigidity. Extremities: No clubbing, No cyanosis Skin: No rashes, No breakdown Lymphatic: No Cervical, Supraclavicular, or Inguinal Adenopathy Neurological: Cranial nerves II-XII grossly intact, Neuro grossly intact Psych/Mental Status: Normal Affect, Appropriate, Alert and oriented to time, place, person, mood and affect Vital Signs Temp Pulse Resp BP Pulse Ox 98.6 F 78 18 166/100 H 98 08/31/18 08:44 08/31/18 08:44 08/31/18 08:44 08/31/18 08:44 08/31/18 08:44 Oxygen Delivery Method Room Air Weight: 258 lb 6.108 oz Body Mass Index (BMI) 34.9 Intake and Output for Last 24 Hours 08/29/18 08/30/18 08/31/18 23:59 23:59 23:59 Intake Total 5569 / 5569 1948.8 / 1948.8 2829 / 2829 Output Total 650 / 650 750 / 750 700 / 700 Balance 4919 / 4919 1198.8 / 1198.8 212 / 212 Medical Necessity - Tobacco Use Smoking Status: Light Smoker (<10/day) Tobacco Use: Cigarettes Assessment/Plan All Active Problems (Last Updated 08/28/18 @ 21:47 by Roxi Weiss MD) Diverticulitis (Acute) This is a 28 years old male patient presented to the emergency room because of lower abdominal pain and he was found to have acute sepsis secondary to acute sigmoid diverticulitis with microperforation. #1 acute sigmoid diverticulitis with microperforation/sepsis: He is on day 4 of on IV Zosyn. Abdominal pain started to improve, feeling better than yesterday, no nausea vomiting. Denies fever chills. Vital signs are stable, afebrile. White blood cell count is back to normal. His lactic acid was normal. LFT was normal as well. General surgery on the case. Started on full liquid diet today. Plan to continue same treatment, advance diet as tolerated, possible DC home tomorrow. #2 DVT prophylaxis: Subcu Lovenox. This note was generated with [employer] dictation software. It may contain incorrect words, spelling, and punctuation that were not noted in checking the note before signing. Code Visit Inpatient E&M: 61653 Subs Hosp L2
[2018-08-31] MEDS: 0.9% NaCl Peripheral Flush Adult/Peds IV (13:37)
[2018-08-31] MEDS: proMETHazine 25 MG/ML Syringe 6.25 MG IV (19:18)
[2018-09-01 02:15] VITALS: BP 124/72; PULSE 72; RESP 18; TEMP 37; O2SAT 95
[2018-09-01] MEDS: 0.9% Normal Saline 1,000 ML 100 ML IV ×3 (02:17→22:25)
[2018-09-01] MEDS: oxyCODONE 5 MG Tablet PO ×4 (03:54→22:19)
[2018-09-01] MEDS: Ketorolac 30 MG/ML Syringe IV (05:28)
[2018-09-01] MEDS: Piperacil/Tazobactam 3.375 GM/50 ML ML IV ×3 (05:28→22:20)
[2018-09-01] MEDS: Ondansetron 4 MG/2 ML Vial IV ×3 (05:34→23:01)
[2018-09-01] MEDS: Acetaminophen 500 MG Tablet 1000 MG PO ×2 (06:40→19:45)
[2018-09-01 07:07] LABS: Anion Gap 11 (5-15); BUN 7 mg/dL (7-18); BUN/Creat Ratio 7.4 RATIO (10-20); Calcium,Total 7.9 mg/dL (8.5-10.1); Chloride 104 mmol/L (98-107); Creatinine, Serum 0.95 mg/dL (0.70-1.30); EST Glomerular Filtration Rate 100 mL/min (>60); Est Glom Filt Rate - Afr Amer 121 mL/min (>60); Estimated Creatinine Clearance 127.06 ml/min; Glucose 70 mg/dL (74-106); Potassium 2.9 mmol/L (3.5-5.1); Sodium Level 141 mmol/L (136-145)
[2018-09-01 07:26] VITALS: BP 152/87; PULSE 74; RESP 16; TEMP 37.1; O2SAT 95
[2018-09-01] MEDS: Enoxaparin 40 MG/0.4 ML Syringe SC (08:51)
[2018-09-01] MEDS: Famotidine 20 MG Tablet PO (08:51)
[2018-09-01] MEDS: Docusate Sodium 100 MG Capsule PO (08:53)
--- NOTE | 2018-09-01 08:55 | PN_ITS ---
Patient Problems: Active and Suspected Problems (Last Updated 08/28/18 @ 21:47 by Roxi Weiss MD) Diverticulitis (Acute) Subjective: Patient with intermittent nausea and episodes of emesis the evening prior. He states still ongoing nausea this morning in addition to episode of diarrhea with inability to make it to the toilet. He notes abdominal discomfort currently improved following bowel movement. Patient evaluated per surgery and given patient presentation diet de-escalated back to clear liquids. Patient denies fe vers, chills, chest pain or dyspnea. Objective: Physical Examination: General: awake, alert, oriented x 3 and cooperative, initially walking in the room, seated upright in bed in no apparent distress, notes recent bowel movement with inability to make it to the toilet. Skin: normal color, turgor, no icterus, cyanosis. HEENT: AT/NC, EOMI, PERRLA, mildly dry MM. Lungs: Diminished BS BL bases, no rales, ronchi or wheezing. Heart: Regular rate and rhythm; no gallop, rub audible. Abdomen: soft, NTTP, mildly distended, hyperactive BS. Extremities: no cyanosis, clubbing, or edema. Neurological: patient awake, alert, oriented x 3; cognitive function intact; pupils equally reactive to light and accomodation; cranial nerves II-XII grossly normal, moving all 4 extremities, no focal deficits, strength mildly globally decreased. Psychiatric: affect appears normal, no acute evidence of depressive or anxiety feelings. Vitals/I&O's: Vital Signs Temp Pulse Resp BP Pulse Ox 98.7 F 74 16 152/87 H 95 09/01/18 07:26 09/01/18 07:26 09/01/18 07:26 09/01/18 07:26 09/01/18 07:26 Oxygen Delivery Method Room Air Weight: 258 lb 6.108 oz Body Mass Index (BMI) 34.9 Intake and Output for Last 24 Hours 08/30/18 08/31/18 09/01/18 23:59 23:59 23:59 Intake Total 1948.8 / 1948.8 4706.1 / 4706.1 2615 / 2615 Output Total 750 / 750 1500 / 1500 700 / 700 Balance 1198.8 / 1198.8 3206.1 / 3206.1 1914 / 1914 Laboratory Results 09/01/18 06:38: Sodium 141, Potassium 2.9 L, Chloride 104, Carbon Dioxide 26.0, Anion Gap 11, BUN 7, Creatinine 0.95, Estim Creat Clear Calc 127.06, Est GFR (MDRD) Af Amer 121, Est GFR (MDRD) Non-Af 100, BUN/Creatinine Ratio 7.4 L, Glucose 70 L, Calcium 7.9 L Current Medications Acetaminophen (Tylenol) 1,000 mg PO Q8H PRN PRN Reason: PAIN Last Admin: 09/01/18 06:40 Dose: 1,000 mg Docusate Sodium (Colace) 100 mg PO DAILY [facility] Last Admin: 09/01/18 08:53 Dose: 100 mg Enoxaparin Sodium (Lovenox) 40 mg SC DAILY@1000 [facility] Last Admin: 09/01/18 08:51 Dose: 40 mg Famotidine (Pepcid) 20 mg PO BID [facility] Last Admin: 09/01/18 08:51 Dose: 20 mg Hydromorphone HCl (Dilaudid Inj) 1 - 2 mg IV Q2H PRN PRN PRN Reason: SEVERE PAIN (6-10/10) Piperacillin Sod/Tazobactam Sod (Zosyn) 3.375 gm in 50 mls @ 12.5 mls/hr IV Q8 [facility] Last Admin: 09/01/18 05:28 Dose: 12.5 mls/hr Sodium Chloride () 1,000 mls @ 100 mls/hr IV .Q10H [facility] Last Admin: 09/01/18 02:17 Dose: 100 mls/hr Ibuprofen (Motrin) 400 - 800 mg PO Q6H PRN PRN PRN Reason: MILD PAIN (1-3/10) Magnesium Hydroxide (Milk Of Magnesia) 30 ml PO DAILY PRN PRN PRN Reason: Constipation Nicotine (Nicoderm Cq (Pbkc)) 14 mg TRANSDERM. DAILY [facility] Last Admin: 09/01/18 08:52 Dose: Not Given Ondansetron HCl (Zofran) 4 mg IV Q8H PRN PRN PRN Reason: NAUSEA Last Admin: 09/01/18 05:34 Dose: 4 mg Oxycodone HCl (Oxyir) 5 - 10 mg PO Q4H PRN PRN PRN Reason: MOD-SEVERE PAIN (4-10/10) Last Admin: 09/01/18 03:54 Dose: 10 mg Promethazine HCl (Phenergan) 6.25 mg IV Q6H PRN PRN PRN Reason: NAUSEA/VOMITING Last Admin: 08/31/18 19:18 Dose: 6.25 mg Sodium Chloride () 5 - 15 ml IV UD PRN PRN Reason: SALINE FLUSH Last Admin: 08/31/18 13:37 Dose: 10 ml Medical Necessity - Tobacco Use Smoking Status: Light Smoker (<10/day) Tobacco Use: Cigarettes Assessment/Plan All Active Problems (Last Updated 08/28/18 @ 21:47 by Roxi Weiss MD) Diverticulitis (Acute) The patient is a 28 y/o M w/ PMHx: Obesity, Tobacco use, GERD who presents to the [facility] ED on 08/28/18 with onset acute abdominal pain. (1) Acute Sepsis secondary to Acute Sigmoid Diverticulitis w/ Microperforation: CT A/P w/ evidence of acute diverticulitis of the sigmoid colon with microperforation but no well-defined abscess. Admission CBC w/ WBC 17.8 with left shift-->08/30/18 CBC w/ WBC 9.4 with improved shift. Admitted to [place], maintained on aggressive hydration, monitor I&Os, maintain NPO status w/ bowel rest initially currently transitioned to Fulls however given nausea and emesis diet de-escalated to clears this AM per Surgery, continue to treat with zosyn regimen, famotidine, anti-emetics, pain regimen PRN. (2) Hypokalemia: Admission K+ 2.9, supplementation given, repeat level in AM. (3) Tobacco Abuse: Encouraged cessation, inpatient consultation per RT, NR if desired. (4) Obesity: Advise both lifestyle and diet changes. (5) GERD: Famotidine. (6) DVT Prophylaxis: SCDs, lovenox. Code Visit Inpatient E&M: 13227 Subs Hosp L2
--- NOTE | 2018-09-01 10:14 | PCM.PN.SRG ---
Patient Problems: Active and Suspected Problems (Last Updated 08/28/18 @ 21:47 by Roxi Weiss MD) Diverticulitis (Acute) Subjective: pt rates pain 2/10, +flatus/BM-some loose, +N/V with fulls yesterday, denies N/v currently, c/o of a pinching feeling in LUQ occasionally - Physical Exam General: Alert, Oriented x3, Cooperative, No apparent distress HEENT: Atraumatic Cardiovascular: Regular rate Abdomen: Soft, Non-Distended, Tender - b/l lower abdomen, no PS Vital Signs Temp Pulse Resp BP Pulse Ox 98.7 F 74 16 152/87 H 95 09/01/18 07:26 09/01/18 07:26 09/01/18 07:26 09/01/18 07:26 09/01/18 07:26 Oxygen Delivery Method Room Air Weight: 258 lb 6.108 oz Body Mass Index (BMI) 34.9 Intake and Output for Last 24 Hours 08/30/18 08/31/18 09/01/18 23:59 23:59 23:59 Intake Total 1948.8 / 1948.8 4706.1 / 4706.1 2615 / 2615 Output Total 750 / 750 1500 / 1500 700 / 700 Balance 1198.8 / 1198.8 3206.1 / 3206.1 1914 / 191 Laboratory Tests Past 24 Hrs 09/01/18 06:38 Sodium 141 Potassium 2.9 L Chloride 104 Carbon Dioxide 26.0 Anion Gap 11 BUN 7 Creatinine 0.95 Estim Creat Clear Calc 127.06 Est GFR (MDRD) Af Amer 121 Est GFR (MDRD) Non-Af 100 BUN/Creatinine Ratio 7.4 L Glucose 70 L Calcium 7.9 L Medical Necessity - Tobacco Use Smoking Status: Light Smoker (<10/day) Tobacco Use: Cigarettes Assessment/Plan All Active Problems (Last Updated 08/28/18 @ 21:47 by Roxi Weiss MD) Diverticulitis (Acute) 28-year-old male with diverticulitis with microperforation 1. Place back to clears, hypokalemia-replaced. continue conservative management. 2. Continue Zosyn IV antibiotics 3. d/c toradol and changed to ibu, continue oxy IR/tylenol, will add PPI, Cr still wnl with the toradol Roxi Weiss M.D. Pager: [phone] [facility] [address] [place] [address], Outpatient [place], [address] [place] [address] Office: [phone] Code Visit Inpatient E&M: 74785 Subs Hosp L1
--- NOTE | 2018-09-01 10:18 | PN.SURG_ITS ---
Patient Problems: Active and Suspected Problems (Last Updated 08/28/18 @ 21:47 by Roxi Weiss MD) Diverticulitis (Acute) Subjective: pt rates pain 2/10, +flatus/BM-some loose, +N/V with fulls yesterday, denies N/v currently, c/o of a pinching feeling in LUQ occasionally - Physical Exam General: Alert, Oriented x3, Cooperative, No apparent distress HEENT: Atraumatic Cardiovascular: Regular rate Abdomen: Soft, Non-Distended, Tender - b/l lower abdomen, no PS Vital Signs Temp Pulse Resp BP Pulse Ox 98.7 F 74 16 152/87 H 95 09/01/18 07:26 09/01/18 07:26 09/01/18 07:26 09/01/18 07:26 09/01/18 07:26 Oxygen Delivery Method Room Air Weight: 258 lb 6.108 oz Body Mass Index (BMI) 34.9 Intake and Output for Last 24 Hours 08/30/18 08/31/18 09/01/18 23:59 23:59 23:59 Intake Total 1948.8 / 1948.8 4706.1 / 4706.1 2615 / 2615 Output Total 750 / 750 1500 / 1500 700 / 700 Balance 1198.8 / 1198.8 3206.1 / 3206.1 1914 / 191 Laboratory Tests Past 24 Hrs 09/01/18 06:38 Sodium 141 Potassium 2.9 L Chloride 104 Carbon Dioxide 26.0 Anion Gap 11 BUN 7 Creatinine 0.95 Estim Creat Clear Calc 127.06 Est GFR (MDRD) Af Amer 121 Est GFR (MDRD) Non-Af 100 BUN/Creatinine Ratio 7.4 L Glucose 70 L Calcium 7.9 L Medical Necessity - Tobacco Use Smoking Status: Light Smoker (<10/day) Tobacco Use: Cigarettes Assessment/Plan All Active Problems (Last Updated 08/28/18 @ 21:47 by Roxi Weiss MD) Diverticulitis (Acute) 28-year-old male with diverticulitis with microperforation 1. Place back to clears, hypokalemia-replaced. continue conservative management. 2. Continue Zosyn IV antibiotics 3. d/c toradol and changed to ibu, continue oxy IR/tylenol, will add PPI, Cr still wnl with the toradol Roxi Weiss M.D. Pager: [phone] [facility] [address] [place] [address], Outpatient [place], [address] [place] [address] Office: [phone] Code Visit Inpatient E&M: 79373 Subs Hosp L1
[2018-09-01 11:49] VITALS: BP 148/97; PULSE 66; RESP 16; TEMP 36.9; O2SAT 96
[2018-09-01] MEDS: Ibuprofen 400 MG Tablet PO (14:02)
[2018-09-01 14:34] VITALS: BP 146/89; PULSE 65; RESP 16; TEMP 36.6; O2SAT 96
[2018-09-01] MEDS: 0.9% NaCl Peripheral Flush Adult/Peds IV ×3 (14:50→23:01)
[2018-09-01] MEDS: proMETHazine 25 MG/ML Syringe 6.25 MG IV ×2 (14:50→22:18)
[2018-09-01 20:00] VITALS: BP 144/81; PULSE 61; RESP 16; TEMP 37; O2SAT 97
[2018-09-02] MEDS: Ibuprofen 400 MG Tablet PO (01:54)
[2018-09-02 02:00] VITALS: BP 150/90; PULSE 66; RESP 18; TEMP 36.8; O2SAT 97
[2018-09-02] MEDS: Ciprofloxacin 400 MG/200 ML BAG 200 MG IV (02:58)
[2018-09-02] MEDS: oxyCODONE 5 MG Tablet PO ×3 (03:04→13:18)
--- NOTE | 2018-09-02 03:07 | NURSING ---
pt stressed and tearful, states I just cant do this anymore and is ready to leave this morning if abx is still causing his nausea. pt visibly upset, able to console. remains anxious will contact MD. pt reports hx of bipolar and ptsd. no medications.
[2018-09-02] MEDS: proMETHazine 25 MG/ML Syringe 6.25 MG IV (04:23)
[2018-09-02] MEDS: 0.9% NaCl Peripheral Flush Adult/Peds IV (04:24)
[2018-09-02] MEDS: LORazepam 2 MG/ML Syringe 0.5 MG IV (04:24)
[2018-09-02 04:35] VITALS: BP 159/96; PULSE 65; RESP 18; TEMP 36.7; O2SAT 96
--- NOTE | 2018-09-02 04:47 | EKG12_ITS ---
Test Reason : CP Blood Pressure : / mmHG Vent. Rate : 055 BPM Atrial Rate : 055 BPM P-R Int : 128 ms QRS Dur : 096 ms QT Int : 460 ms P-R-T Axes : 031 -26 011 degrees QTc Int : 440 ms Sinus bradycardia with sinus arrhythmia Leftward axis Poor R wave progression Confirmed by JAY ANDRADE, TIM ([id number]), magazine editor ORESTES GAR ([id number]) on 09/04/2018 2:45:56 PM Referred By: DIANNE Confirmed By:TIM THOMPSON MD
--- NOTE | 2018-09-02 04:49 | NURSING ---
pt c/o cp, ativan x1 given. spoke with MD and made him aware pt c/o cp. ekg done and ordered. stat trop and bmp ordered. will monitor pt.
[2018-09-02 05:31] LABS: Anion Gap 9 (5-15); BUN 6 mg/dL (7-18); BUN/Creat Ratio 6.9 RATIO (10-20); Calcium,Total 8.3 mg/dL (8.5-10.1); Chloride 107 mmol/L (98-107); Creatinine, Serum 0.87 mg/dL (0.70-1.30); EST Glomerular Filtration Rate 110 mL/min (>60); Est Glom Filt Rate - Afr Amer 133 mL/min (>60); Estimated Creatinine Clearance 138.75 ml/min; Glucose 84 mg/dL (74-106); Potassium 3.1 mmol/L (3.5-5.1); Sodium Level 143 mmol/L (136-145)
--- NOTE | 2018-09-02 07:57 | PCM.PN.HOSP ---
Patient Problems: Active and Suspected Problems (Last Updated 08/28/18 @ 21:47 by Roxi Weiss MD) Diverticulitis (Acute) Subjective: Patient with no acute events overnight per self and per nursing report but did have mild emesis but this was bile in appearance and only occurred once. Patient this morning following transition to allowance of RN ordered. Diet as well as oral antibiotic therapy did much better and tolerated intake without any recurrent nausea or emesis. Patient remains pain-free. Patient denies any recurrent incontinence of stools as diarrheal episode x1 yesterday and unable to make it to the restroom. Patient has had intermittent agitation and aggressive moods which is chronic and requesting discharge to home. Patient denies fevers, chills, abdominal pain, chest pain or dyspnea. Objective: Physical Examination: General: awake, alert, oriented x 3 and cooperative, in the room, packing his belongings, discussed plan of care and he is amenable and notes that he is currently feeling much improved and did tolerate clear liquids adamant that he needs to be discharged as he feels more comfortable at home and states that his mother is already getting full liquid items for home. Skin: normal color, turgor, no icterus, cyanosis. HEENT: AT/NC, EOMI, PERRLA, improved MMM. Lungs: Diminished BS BL bases, no rales, ronchi or wheezing. Heart: Regular rate and rhythm; no gallop, rub audible. Abdomen: soft, NTTP, ND, improved normalized BS. Extremities: no cyanosis, clubbing, or edema. Neurological: patient awake, alert, oriented x 3; cognitive function intact; pupils equally reactive to light and accomodation; cranial nerves II-XII grossly normal, moving all 4 extremities, no focal deficits, strength improved, preserved. Psychiatric: affect appears anxious, calmed with discussions, very eager for discharge. Vitals/I&O's: Vital Signs Temp Pulse Resp BP Pulse Ox 98.1 F 65 18 159/96 H 96 09/02/18 04:35 09/02/18 04:35 09/02/18 04:35 09/02/18 04:35 09/02/18 04:35 Oxygen Delivery Method Room Air Weight: 258 lb 6.108 oz Body Mass Index (BMI) 34.9 Intake and Output for Last 24 Hours 1209/01/18 09/02/18 23:59 23:59 23:59 Intake Total 4706.1 / 4706.1 4985 / 4985 3284 / 3284 Output Total 1500 / 1500 1700 / 1700 600 / 600 Balance 3206.1 / 3206.1 3285 / 3285 2684 / 2684 Laboratory Results 09/02/18 05:02: Sodium 143, Potassium 3.1 L, Chloride 107, Carbon Dioxide 27.0, Anion Gap 9, BUN 6 L, Creatinine 0.87, Estim Creat Clear Calc 138.75, Est GFR (MDRD) Af Amer 133, Est GFR (MDRD) Non-Af 110, BUN/Creatinine Ratio 6.9 L, Glucose 84, Calcium 8.3 L, Troponin I < 0.015 Current Medications Acetaminophen (Tylenol) 1,000 mg PO Q8H PRN PRN Reason: PAIN Last Admin: 09/01/18 19:45 Dose: 1,000 mg Enoxaparin Sodium (Lovenox) 40 mg SC DAILY@1000 [facility] Last Admin: 09/01/18 08:51 Dose: 40 mg Hydromorphone HCl (Dilaudid Inj) 1 - 2 mg IV Q2H PRN PRN PRN Reason: SEVERE PAIN (6-10/10) Sodium Chloride () 1,000 mls @ 100 mls/hr IV .Q10H [facility] Last Admin: 09/01/18 22:25 Dose: 100 mls/hr Pantoprazole Sodium 40 mg/ (Sodium Chloride) 110 mls @ 330 mls/hr IV Q24 [facility] Last Admin: 09/01/18 11:56 Dose: 330 mls/hr Ciprofloxacin (Cipro) 400 mg in 200 mls @ 200 mls/hr IV Q12 [facility] Last Admin: 09/02/18 02:58 Dose: 200 mls/hr Metronidazole (Flagyl) 500 mg in 100 mls @ 100 mls/hr IV Q8 [facility] Last Admin: 09/02/18 02:57 Dose: 100 mls/hr Ibuprofen (Motrin) 400 - 800 mg PO Q6H PRN PRN PRN Reason: MILD PAIN (1-3/10) Last Admin: 09/02/18 01:54 Dose: 800 mg Lorazepam (Ativan) 0.5 mg PO Q8H PRN PRN PRN Reason: ANXIETY Magnesium Hydroxide (Milk Of Magnesia) 30 ml PO DAILY PRN PRN PRN Reason: Constipation Nicotine (Nicoderm Cq (Pbkc)) 14 mg TRANSDERM. DAILY [facility] Last Admin: 09/01/18 08:52 Dose: Not Given Ondansetron HCl (Zofran) 4 mg IV Q8H PRN PRN PRN Reason: NAUSEA Last Admin: 09/01/18 23:01 Dose: 4 mg Oxycodone HCl (Oxyir) 5 - 10 mg PO Q4H PRN PRN PRN Reason: MOD-SEVERE PAIN (4-10/10) Last Admin: 09/02/18 03:04 Dose: 10 mg Promethazine HCl (Phenergan) 6.25 mg IV Q6H PRN PRN PRN Reason: NAUSEA/VOMITING Last Admin: 09/02/18 04:23 Dose: 6.25 mg Sodium Chloride () 5 - 15 ml IV UD PRN PRN Reason: SALINE FLUSH Last Admin: 09/02/18 04:24 Dose: 10 ml Medical Necessity - Tobacco Use Smoking Status: Light Smoker (<10/day) Tobacco Use: Cigarettes Assessment/Plan All Active Problems (Last Updated 08/28/18 @ 21:47 by Roxi Weiss MD) Diverticulitis (Acute) The patient is a 28 y/o M w/ PMHx: Obesity, Tobacco use, GERD who presents to the [facility] ED on 08/28/18 with onset acute abdominal pain. (1) Acute Sepsis secondary to Acute Sigmoid Diverticulitis w/ Microperforation: CT A/P w/ evidence of acute diverticulitis of the sigmoid colon with microperforation but no well-defined abscess. Admission CBC w/ WBC 17.8 with left shift-->08/30/18 CBC w/ WBC 9.4 with improved shift. [facility], maintained on aggressive hydration, monitor I&Os, maintained NPO status w/ bowel rest initially, attempted transitioned to Fulls however nausea and emesis diet de-escalated to clears per Surgery. Patient noted onset worsened GI upset with zosyn administration therefore 09/01-->09/02 transitioned to cipro and flagyl regimen. Notable anxiety with his abx therapies, transitioned to oral abx therapy given WBC improved and no shift, afebrile to see if potentially better toleration, additionally ordered his Full Liquids for him to remove stress of choosing, continued PPI, anti-emetics, pain regimen PRN. Given improvement w/ these changes and patient intense preference discharge to home arranged per discussions with Surgery as well. (2) Hypokalemia: Admission K+ 2.9, supplementation given, repeat level in AM 3.1, given additional oral supplementation. (3) Chest Pain, Atypical: Suspect secondary to anxiety, 12/3 overnight episode of chest pain, atypical, EKG unremarkable, trop normal, low dose ativan administered with improvement. Suspect a notable component to his current presentation including occasional nausea and rare emesis. (4) Tobacco Abuse: Encouraged cessation, inpatient consultation per RT, NR if desired. (5) Obesity: Advise both lifestyle and diet changes. (6) GERD: Famotidine. (7) Bipolar disorder, ADHD, Explosive disorder: Not on treatment, given GI upset will defer initiation of treatment, patient has follow-up with his therapist. (8) DVT Prophylaxis: SCDs, lovenox.
--- NOTE | 2018-09-02 08:01 | PN_ITS ---
Patient Problems: Active and Suspected Problems (Last Updated 08/28/18 @ 21:47 by Roxi Weiss MD) Diverticulitis (Acute) Subjective: Patient with no acute events overnight per self and per nursing report but did have mild emesis but this was bile in appearance and only occurred once. Patient this morning following transition to allowance of RN ordered. Diet as well as oral antibiotic therapy did much better and tolerated intake without any recurrent nausea or emesis. Patient remains pain-free. Patient denies any recu rrent incontinence of stools as diarrheal episode x1 yesterday and unable to make it to the restroom. Patient has had intermittent agitation and aggressive moods which is chronic and requesting discharge to home. Patient denies fevers, chills, abdominal pain, chest pain or dyspnea. Objective: Physical Examination: General: awake, alert, oriented x 3 and cooperative, in the room, packing his belongings, discussed plan of care and he is amenable and notes that he is currently feeling much improved and did tolerate clear liquids adamant that he needs to be discharged as he feels more comfortable at home and states that his mother is already getting full liquid items for home. Skin: normal color, turgor, no icterus, cyanosis. HEENT: AT/NC, EOMI, PERRLA, improved MMM. Lungs: Diminished BS BL bases, no rales, ronchi or wheezing. Heart: Regular rate and rhythm; no gallop, rub audible. Abdomen: soft, NTTP, ND, improved normalized BS. Extremities: no cyanosis, clubbing, or edema. Neurological: patient awake, alert, oriented x 3; cognitive function intact; pupils equally reactive to light and accomodation; cranial nerves II-XII grossly normal, moving all 4 extremities, no focal deficits, strength improved, preserved. Psychiatric: affect appears anxious, calmed with discussions, very eager for discharge. Vitals/I&O's: Vital Signs Temp Pulse Resp BP Pulse Ox 98.1 F 65 18 159/96 H 96 09/02/18 04:35 09/02/18 04:35 09/02/18 04:35 09/02/18 04:35 09/02/18 04:35 Oxygen Delivery Method Room Air Weight: 258 lb 6.108 oz Body Mass Index (BMI) 34.9 Intake and Output for Last 24 Hours 08/31/18 09/01/18 09/02/18 23:59 23:59 23:59 Intake Total 4706.1 / 4706.1 4985 / 4985 3284 / 3284 Output Total 1500 / 1500 1700 / 1700 600 / 600 Balance 3206.1 / 3206.1 3285 / 3285 2684 / 2684 Laboratory Results 09/02/18 05:02: Sodium 143, Potassium 3.1 L, Chloride 107, Carbon Dioxide 27.0, Anion Gap 9, BUN 6 L, Creatinine 0.87, Estim Creat Clear Calc 138.75, Est GFR (MDRD) Af Amer 133, Est GFR (MDRD) Non-Af 110, BUN/Creatinine Ratio 6.9 L, Glucose 84, Calcium 8.3 L, Troponin I < 0.015 Current Medications Acetaminophen (Tylenol) 1,000 mg PO Q8H PRN PRN Reason: PAIN Last Admin: 09/01/18 19:45 Dose: 1,000 mg Enoxaparin Sodium (Lovenox) 40 mg SC DAILY@1000 JULIA Last Admin: 09/01/18 08:51 Dose: 40 mg Hydromorphone HCl (Dilaudid Inj) 1 - 2 mg IV Q2H PRN PRN PRN Reason: SEVERE PAIN (6-10/10) Sodium Chloride () 1,000 mls @ 100 mls/hr IV .Q10H [facility] Last Admin: 09/01/18 22:25 Dose: 100 mls/hr Pantoprazole Sodium 40 mg/ (Sodium Chloride) 110 mls @ 330 mls/hr IV Q24 [facility] Last Admin: 09/01/18 11:56 Dose: 330 mls/hr Ciprofloxacin (Cipro) 400 mg in 200 mls @ 200 mls/hr IV Q12 [facility] Last Admin: 09/02/18 02:58 Dose: 200 mls/hr Metronidazole (Flagyl) 500 mg in 100 mls @ 100 mls/hr IV Q8 [facility] Last Admin: 09/02/18 02:57 Dose: 100 mls/hr Ibuprofen (Motrin) 400 - 800 mg PO Q6H PRN PRN PRN Reason: MILD PAIN (1-3/10) Last Admin: 09/02/18 01:54 Dose: 800 mg Lorazepam (Ativan) 0.5 mg PO Q8H PRN PRN PRN Reason: ANXIETY Magnesium Hydroxide (Milk Of Magnesia) 30 ml PO DAILY PRN PRN PRN Reason: Constipation Nicotine (Nicoderm Cq (Pbkc)) 14 mg TRANSDERM. DAILY JULIA Last Admin: 09/01/18 08:52 Dose: Not Given Ondansetron HCl (Zofran) 4 mg IV Q8H PRN PRN PRN Reason: NAUSEA Last Admin: 09/01/18 23:01 Dose: 4 mg Oxycodone HCl (Oxyir) 5 - 10 mg PO Q4H PRN PRN PRN Reason: MOD-SEVERE PAIN (4-10/10) Last Admin: 09/02/18 03:04 Dose: 10 mg Promethazine HCl (Phenergan) 6.25 mg IV Q6H PRN PRN PRN Reason: NAUSEA/VOMITING Last Admin: 09/02/18 04:23 Dose: 6.25 mg Sodium Chloride () 5 - 15 ml IV UD PRN PRN Reason: SALINE FLUSH Last Admin: 09/02/18 04:24 Dose: 10 ml Medical Necessity - Tobacco Use Smoking Status: Light Smoker (<10/day) Tobacco Use: Cigarettes Assessment/Plan All Active Problems (Last Updated 08/28/18 @ 21:47 by Roxi Weiss MD) Diverticulitis (Acute) The patient is a 28 y/o M w/ PMHx: Obesity, Tobacco use, GERD who presents to the [facility] ED on 08/28/18 with onset acute abdominal pain. (1) Acute Sepsis secondary to Acute Sigmoid Diverticulitis w/ Microperforation: CT A/P w/ evidence of acute diverticulitis of the sigmoid colon with microperforation but no well-defined abscess. Admission CBC w/ WBC 17.8 with left shift-->08/30/18 CBC w/ WBC 9.4 with improved shift. Admitted to OR, maintained on aggressive hydration, monitor I&Os, maintained NPO status w/ bowel rest initially, attempted transitioned to Fulls however nausea and emesis diet de-escalated to clears per Surgery. Patient noted onset worsened GI upset with zosyn administration therefore 09/01-->09/02 transitioned to cipro and flagyl regimen. Notable anxiety with his abx therapies, transitioned to oral abx therapy given WBC improved and no shift, afebrile to see if potentially better toleration, additionally ordered his Full Liquids for him to remove stress of choosing, continued PPI, anti-emetics, pain regimen PRN. Given improvement w/ these changes and patient intense preference discharge to home arranged per discussions with Surgery as well. (2) Hypokalemia: Admission K+ 2.9, supplementation given, repeat level in AM 3.1, given additional oral supplementation. (3) Chest Pain, Atypical: Suspect secondary to anxiety, 12/3 overnight episode of chest pain, atypical, EKG unremarkable, trop normal, low dose ativan administered with improvement. Suspect a notable component to his current presentation including occasional nausea and rare emesis. (4) Tobacco Abuse: Encouraged cessation, inpatient consultation per RT, NR if desired. (5) Obesity: Advise both lifestyle and diet changes. (6) GERD: Famotidine. (7) Bipolar disorder, ADHD, Explosive disorder: Not on treatment, given GI upset will defer initiation of treatment, patient has follow-up with his therapist. (8) DVT Prophylaxis: SCDs, lovenox.
[2018-09-02] MEDS: Ondansetron 4 MG/2 ML Vial IV (08:05)
[2018-09-02] MEDS: LORazepam 0.5 MG Tablet PO (08:11)
[2018-09-02 08:19] VITALS: BP 178/113; PULSE 59; RESP 16; TEMP 36.6; O2SAT 98
[2018-09-02 08:28] LABS: Magnesium 1.9 mg/dL (1.6-2.6)
[2018-09-02] MEDS: 0.9% Normal Saline 1,000 ML 100 ML IV (08:47)
[2018-09-02] MEDS: Enoxaparin 40 MG/0.4 ML Syringe SC (08:48)
[2018-09-02 08:53] VITALS: BP 150/95
--- NOTE | 2018-09-02 09:29 | PCM.PN.SRG ---
Patient Problems: Active and Suspected Problems (Last Updated 08/28/18 @ 21:47 by Roxi Weiss MD) Diverticulitis (Acute) Subjective: Patient's abdominal pain is improved however he does state he has nausea and vomiting which is was due to the Zosyn IV. This has been changed to Cipro Flagyl. - Physical Exam General: Alert, Oriented x3, Cooperative HEENT: Atraumatic Lungs: Normal air movement Abdomen: Soft, Non-Distended, Passing Flatus, Tender - Minimally tender in the bilateral lower quadrants Extremities: No clubbing, No cyanosis, No edema Neurological: Cranial nerves II-XII grossly intact Vital Signs Temp Pulse Resp BP Pulse Ox 97.9 F 59 L 16 150/95 H 98 09/02/18 08:19 09/02/18 08:19 09/02/18 08:19 09/02/18 08:53 09/02/18 08:19 Oxygen Delivery Method Room Air Weight: 258 lb 6.108 oz Body Mass Index (BMI) 34.9 Intake and Output for Last 24 Hours 08/31/18 09/01/18 09/02/18 23:59 23:59 23:59 Intake Total 4706.1 / 4706.1 4985 / 4985 3284 / 3284 Output Total 1500 / 1500 1700 / 1700 600 / 600 Balance 3206.1 / 3206.1 3285 / 3285 2684 / 2684 Laboratory Tests Past 24 Hrs 09/02/18 09/02/18 05:02 05:02 Sodium 143 Potassium 3.1 L Chloride 107 Carbon Dioxide 27.0 Anion Gap 9 BUN 6 L Creatinine 0.87 Estim Creat Clear Calc 138.75 Est GFR (MDRD) Af Amer 133 Est GFR (MDRD) Non-Af 110 BUN/Creatinine Ratio 6.9 L Glucose 84 Calcium 8.3 L Magnesium 1.9 Troponin I < 0.015 Medical Necessity - Tobacco Use Smoking Status: Light Smoker (<10/day) Tobacco Use: Cigarettes Assessment/Plan All Active Problems (Last Updated 08/28/18 @ 21:47 by Roxi Weiss MD) Diverticulitis (Acute) 28-year-old male with diverticulitis with microperforation 1. We will give the patient a trial of full liquids, unsure if some of the nausea/vomiting could be due to anxiety? As his pain is improved. 2. Patient currently on Cipro Flagyl IV will try to change him to p.o. see if that helps any with some of his anxiety. 3. Pain controlled with p.o. medications, hypokalemia replace Roxi Weiss M.D. Pager: [phone] [facility] [address] [place] [address], Outpatient [place], [address] [place] [address] Office: [phone] Code Visit Inpatient E&M: 92275 Subs Hosp L1
--- NOTE | 2018-09-02 09:32 | PN.SURG_ITS ---
Patient Problems: Active and Suspected Problems (Last Updated 08/28/18 @ 21:47 by Roxi Weiss MD) Diverticulitis (Acute) Subjective: Patient's abdominal pain is improved however he does state he has nausea and vomiting which is was due to the Zosyn IV. This has been changed to Cipro Flagyl. - Physical Exam General: Alert, Oriented x3, Cooperative HEENT: Atraumatic Lungs: Normal air movement Abdomen: Soft, Non-Distended, Passing Flatus, Tender - Minimally tender in the bilateral lower quadrants Extremities: No clubbing, No cyanosis, No edema Neurological: Cranial nerves II-XII grossly intact Vital Signs Temp Pulse Resp BP Pulse Ox 97.9 F 59 L 16 150/95 H 98 09/02/18 08:19 09/02/18 08:19 09/02/18 08:19 09/02/18 08:53 09/02/18 08:19 Oxygen Delivery Method Room Air Weight: 258 lb 6.108 oz Body Mass Index (BMI) 34.9 Intake and Output for Last 24 Hours 08/31/18 09/01/18 09/02/18 23:59 23:59 23:59 Intake Total 4706.1 / 4706.1 4985 / 4985 3284 / 3284 Output Total 1500 / 1500 1700 / 1700 600 / 600 Balance 3206.1 / 3206.1 3285 / 3285 2684 / 2684 Laboratory Tests Past 24 Hrs 09/02/18 09/02/18 05:02 05:02 Sodium 143 Potassium 3.1 L Chloride 107 Carbon Dioxide 27.0 Anion Gap 9 BUN 6 L Creatinine 0.87 Estim Creat Clear Calc 138.75 Est GFR (MDRD) Af Amer 133 Est GFR (MDRD) Non-Af 110 BUN/Creatinine Ratio 6.9 L Glucose 84 Calcium 8.3 L Magnesium 1.9 Troponin I < 0.015 Medical Necessity - Tobacco Use Smoking Status: Light Smoker (<10/day) Tobacco Use: Cigarettes Assessment/Plan All Active Problems (Last Updated 08/28/18 @ 21:47 by Roxi Weiss MD) Diverticulitis (Acute) 28-year-old male with diverticulitis with microperforation 1. We will give the patient a trial of full liquids, unsure if some of the nausea/vomiting could be due to anxiety? As his pain is improved. 2. Patient currently on Cipro Flagyl IV will try to change him to p.o. see if that helps any with some of his anxiety. 3. Pain controlled with p.o. medications, hypokalemia replace Roxi Weiss M.D. Pager: [phone] [facility] [address] [place] [address], Outpatient [place], [address] [place] [address] Office: [phone] Code Visit Inpatient E&M: 29148 Subs Hosp L1
--- NOTE | 2018-09-02 09:41 | NURSING ---
pt told nursing staff that he has been having flash backs this am of childhood. notified social serve that pt having flashbacks.
[2018-09-02] MEDS: metroNIDAZOLE 500 MG Tablet PO (11:26)
[2018-09-02 11:28] VITALS: BP 150/86; PULSE 66; RESP 16; TEMP 36.6; O2SAT 97
--- NOTE | 2018-09-02 14:08 | NURSING ---
pt stated he is having flash backs of childhood and need to get out of here and go home. pt crying swinging fists on bed. dr lawrence notified of pt request.
--- NOTE | 2018-09-02 14:13 | DCINST_ITS ---
- Discharge Diagnoses Current Active Problems: Current Active and Chronic Problems (Last Updated 08/28/18 @ 21:47 by Roxi Weiss MD) (1) Acute Sepsis secondary to Acute Sigmoid Diverticulitis w/ Microperforation (2) Hypokalemia (3) Chest Pain, Atypical, Suspect secondary to Anxiety (4) Tobacco Abuse (5) Obesity (6) GERD (7) Bipolar disorder, ADHD, Explosive disorder, PTSD You will use the following diet at home:: Full liquid - Please limit your diet to clear and full liquids over the next week to assure continued improvement until re-assessment per Dr. Weiss. Your food should be the consistency of: Regular Your liquids should be the consistency of: Regular/Thin Discharge Activity: - - Avoid aggressive activity until re-evaluation per Dr. Weiss. Call your doctor if you observe: Fever of 101 or Higher, Inability to urinate, Inability to have a bowel movement, Shortness of breath, Dizziness, Fainting spells, Chest pain, Uncontrolled pain Instructions: Understanding Diverticulosis and Diverticulitis, Discharge Instructions for Diverticulitis, Discharge Instructions: Eating a Full Liquid Diet Allergies/Adverse Reactions: Allergies dextromethorphan HBr [From NyQuil] Allergy (Verified 08/18/17 14:25) Anaphylaxis doxylamine [From NyQuil] Allergy (Verified 08/18/17 14:25) Anaphylaxis poison mimi extract [Poison Mimi Extract] Allergy (Verified 08/18/17 14:25) Anaphylaxis pseudoephedrine HCl [From NyQuil] Allergy (Verified 08/18/17 14:25) Anaphylaxis venom-honey bee [bee venom (honey bee)] Allergy (Verified 08/18/17 14:25) Anaphylaxis MUSHROOMS Allergy (Uncoded 08/18/17 14:25) Anaphylaxis Medications to take at Discharge Calcium Carbonate [Tums] 1,000 mg PO PRN PRN 08/28/18 Acetaminophen [Tylenol Extra Strength] 1,000 mg PO Q8H PRN #0 09/02/18 Ciprofloxacin [Cipro] 500 mg PO BID #10 tablet 09/02/18 Ibuprofen [Motrin] 400 - 800 mg PO Q6H PRN PRN tablet 09/02/18 Metronidazole [Flagyl] 500 mg PO TIDCM #15 tablet 09/02/18 Pantoprazole Sodium [Protonix] 20 mg PO BID #60 tablet 09/02/18 proMETHazine tablet [Phenergan tablet] 25 mg PO Q6H PRN PRN #20 tablet 09/02/18 The following prescriptions were given: proMETHazine tablet [Phenergan tablet] 25 mg PO Q6H PRN PRN #20 tablet PRN Reason: nausea, emesis Ciprofloxacin [Cipro] 500 mg PO BID #10 tablet Pantoprazole Sodium [Protonix] 20 mg PO BID #60 tablet Metronidazole [Flagyl] 500 mg PO TIDCM #15 tablet Primary Care Physician: Berna Wren NP-C [Primary Care Provider] - Please follow up with your Primary Care Physician in: Follow-up within 3-5 days to review admission. Test Results: Test results from this visit will be discussed in further detail at your follow- up appointment, if applicable. Please Follow Up With: Roxi Weiss MD When: Follow-up 1 week. Proposed Discharge Date: 09/02/18
[2018-09-02 14:27] VITALS: BP 158/113; PULSE 71; RESP 16; TEMP 36.9; O2SAT 97
--- NOTE | 2018-09-02 14:34 | PCM.DC.SUM ---
Discharge Date and Diagnosis - Problem List Patient Problems: Active and Suspected Problems (Last Updated 08/28/18 @ 21:47 by Roxi Weiss MD) Diverticulitis (Acute) Date of Admission: 08/28/18 Date of Discharge: 09/02/18 - Primary Discharge Diagnosis Active and Suspected Problems (Last Updated 08/28/18 @ 21:47 by Roxi Weiss MD) (1) Acute Sepsis secondary to Acute Sigmoid Diverticulitis w/ Microperforation (2) Hypokalemia (3) Chest Pain, Atypical, Suspect secondary to Anxiety (4) Tobacco Abuse (5) Obesity (6) GERD (7) Bipolar disorder, ADHD, Explosive disorder, Not on treatment - Secondary Discharge Diagnosis Chronic Problems (Last Updated 08/28/18 @ 21:47 by Roxi Weiss MD) IBS (irritable bowel syndrome) (Chronic) Hemorrhoids (Chronic) PTSD (post-traumatic stress disorder) (Chronic) Bipolar disorder (Chronic) Hospital Course and Treatment Dr. Weiss Surgery Operations: None Procedures: EKG Summary of Care Provided: The patient is a 28 y/o M w/ PMHx: Obesity, Tobacco use, GERD who presented to the [facility] ED on 08/28/18 with onset acute abdominal pain. CT A/P w/ evidence of acute diverticulitis of the sigmoid colon with microperforation but no well-defined abscess. Admission CBC w/ WBC 17.8 with left shift-->08/30/18 CBC w/ WBC 9.4 with improved shift. Admitted to ID, maintained on aggressive hydration, monitor I&Os, maintained NPO status w/ bowel rest initially, attempted transitioned to Fulls however nausea and emesis diet de-escalated to clears per Surgery. Patient noted onset worsened GI upset with zosyn administration therefore 09/01-->09/02 transitioned to cipro and flagyl regimen. Notable anxiety with his abx therapies, transitioned to oral abx therapy given WBC improved and no shift, afebrile to see if potentially better toleration, additionally ordered his Full Liquids for him to remove stress of choosing, continued PPI, anti-emetics, pain regimen PRN. Given improvement w/ these changes and patient intense preference discharge to home arranged per discussions with Surgery as well. During admission, patient has atypical chest pain felt secondary to anxiety, EKG unremarkable and enzyme normal. Upon discharge per discussion with Surgery, continued 10 day total course of cipro and flagyl (5 additional days) in addition to protonix. Encouraged follow-up with primary care within 3-5 days. Additionally, given untreated patient psychiatric disease, patient set-up with his therapist to be re-evaluated. Patient Problems: Active and Suspected Problems (Last Updated 08/28/18 @ 21:47 by Roxi Weiss MD) Diverticulitis (Acute) - Physical Exam Vital Signs Temp Pulse Resp BP Pulse Ox 98.4 F 71 16 158/113 H 97 09/02/18 14:27 09/02/18 14:27 09/02/18 14:27 09/02/18 14:27 09/02/18 14:27 Oxygen Delivery Method Room Air Weight: 258 lb 6.108 oz Body Mass Index (BMI) 34.9 Intake and Output for Last 24 Hours 08/31/18 09/01/18 09/02/18 23:59 23:59 23:59 Intake Total 4706.1 / 4706.1 4985 / 4985 3834 / 3834 Output Total 1500 / 1500 1700 / 1700 600 / 600 Balance 3206.1 / 3206.1 3285 / 3285 3234 / 3234 Laboratory Tests Past 24 Hrs 09/02/18 09/02/18 05:02 05:02 Sodium 143 Potassium 3.1 L Chloride 107 Carbon Dioxide 27.0 Anion Gap 9 BUN 6 L Creatinine 0.87 Estim Creat Clear Calc 138.75 Est GFR (MDRD) Af Amer 133 Est GFR (MDRD) Non-Af 110 BUN/Creatinine Ratio 6.9 L Glucose 84 Calcium 8.3 L Magnesium 1.9 Troponin I < 0.015 Discharge Activity: - - Avoid aggressive activity until re-evaluation per Dr. Weiss. Call your doctor if you observe: Fever of 101 or Higher, Inability to urinate, Inability to have a bowel movement, Shortness of breath, Dizziness, Fainting spells, Chest pain, Uncontrolled pain Home Medications: Medications to take at Discharge Calcium Carbonate [Tums] 1,000 mg PO PRN PRN 08/28/18 Acetaminophen [Tylenol Extra Strength] 1,000 mg PO Q8H PRN #0 09/02/18 Ciprofloxacin [Cipro] 500 mg PO BID #10 tablet 09/02/18 Ibuprofen [Motrin] 400 - 800 mg PO Q6H PRN PRN tablet 09/02/18 Metronidazole [Flagyl] 500 mg PO TIDCM #15 tablet 09/02/18 Pantoprazole Sodium [Protonix] 20 mg PO BID #60 tablet 09/02/18 proMETHazine tablet [Phenergan tablet] 25 mg PO Q6H PRN PRN #20 tablet 09/02/18 Following Prescrptions Were Given to Patient: proMETHazine tablet [Phenergan tablet] 25 mg PO Q6H PRN PRN #20 tablet PRN Reason: nausea, emesis Ciprofloxacin [Cipro] 500 mg PO BID #10 tablet Pantoprazole Sodium [Protonix] 20 mg PO BID #60 tablet Metronidazole [Flagyl] 500 mg PO TIDCM #15 tablet Primary Care Physician: Berna Wren NP-C [Primary Care Provider] - Please follow up with your Primary Care Physician in: Follow-up within 3-5 days to review admission. Please Follow Up With: Roxi Weiss MD When: Follow-up 1 week. Patient Instructions: Understanding Diverticulosis and Diverticulitis, Discharge Instructions for Diverticulitis, Discharge Instructions: Eating a Full Liquid Diet Disposition: Home Minutes spent on discharge:: 35 Patient Condition:: Fair Medical Necessity - Tobacco Use Smoking Status: Light Smoker (<10/day) Tobacco Use: Cigarettes Meaningful Use Info Meaningful Use Diagnoses (Choose all that apply): None applicable Code Visit Inpatient E&M: 58456 Disch Hosp
--- NOTE | 2018-09-02 14:35 | CASEMGMT ---
Social Work Note RN updated this worker that pt was having flashbacks of his childhood. SW met with pt. SW introduced self and role at [facility]. Pt states that mentally he feels safe to return home and he is wanting to go home today. Pt states that he has a counseling appointment today at [facility] at 4:30pm to meet with his counselor. Pt states that he has been in counseling since he was 6 years old. Pt states that going to counseling has helped him. Pt confirms that he was having flashbacks earlier today. Pt states that he was in correction for four years and missed out on his family. SW provided support for pt. Pt denies any current suicidal/homicidal thoughts/plans/ideations. Plan: Pt to discharge home and attend his counseling appointment at [facility] today at 4:30pm Louise LAWRENCE, SPA COORDINATOR
--- NOTE | 2018-09-02 14:39 | DS.PCM_ITS ---
Discharge Date and Diagnosis - Problem List Patient Problems: Active and Suspected Problems (Last Updated 08/28/18 @ 21:47 by Roxi Weiss MD) Diverticulitis (Acute) Date of Admission: 08/28/18 Date of Discharge: 09/02/18 - Primary Discharge Diagnosis Active and Suspected Problems (Last Updated 08/28/18 @ 21:47 by Roxi Weiss MD) (1) Acute Sepsis secondary to Acute Sigmoid Diverticulitis w/ Microperforation (2) Hypokalemia (3) Chest Pain, Atypical, Suspect secondary to Anxiety (4) Tobacco Abuse (5) Obesity (6) GERD (7) Bipolar disorder, ADHD, Explosive disorder, Not on treatment - Secondary Discharge Diagnosis Chronic Problems (Last Updated 08/28/18 @ 21:47 by Roxi Weiss MD) IBS (irritable bowel syndrome) (Chronic) Hemorrhoids (Chronic) PTSD (post-traumatic stress disorder) (Chronic) Bipolar disorder (Chronic) Hospital Course and Treatment Dr. Weiss Surgery Operations: None Procedures: EKG Summary of Care Provided: The patient is a 28 y/o M w/ PMHx: Obesity, Tobacco use, GERD who presented to the [facility] ED on 08/28/18 with onset acute abdominal pain. CT A/P w/ evidence of acute diverticulitis of the sigmoid colon with microperforation but no well- defined abscess. Admission CBC w/ WBC 17.8 with left shift-->08/30/18 CBC w/ WBC 9.4 with improved shift. Admitted to [place], maintained on aggressive hydration, monitor I&Os, maintained NPO status w/ bowel rest initially, attempted transitioned to Fulls however nausea and emesis diet de-escalated to clears per Surgery. Patient noted onset worsened GI upset with zosyn administration therefore 09/01-->09/02 transitioned to cipro and flagyl regimen. Notable anxiety with his abx therapies, transitioned to oral abx therapy given WBC improved and no shift, afebrile to see if potentially better toleration, additionally ordered his Full Liquids for him to remove stress of choosing, continued PPI, anti-emet ics, pain regimen PRN. Given improvement w/ these changes and patient intense preference discharge to home arranged per discussions with Surgery as well. During admission, patient has atypical chest pain felt secondary to anxiety, EKG unremarkable and enzyme normal. Upon discharge per discussion with Surgery, continued 10 day total course of cipro and flagyl (5 additional days) in addition to protonix. Encouraged follow-up with primary care within 3-5 days. Additionally, given untreated patient psychiatric disease, patient set-up with his therapist to be re-evaluated. Patient Problems: Active and Suspected Problems (Last Updated 08/28/18 @ 21:47 by Roxi Weiss MD) Diverticulitis (Acute) - Physical Exam Vital Signs Temp Pulse Resp BP Pulse Ox 98.4 F 71 16 158/113 H 97 09/02/18 14:27 09/02/18 14:27 09/02/18 14:27 09/02/18 14:27 09/02/18 14:27 Oxygen Delivery Method Room Air Weight: 258 lb 6.108 oz Body Mass Index (BMI) 34.9 Intake and Output for Last 24 Hours 08/31/18 09/01/18 09/02/18 23:59 23:59 23:59 Intake Total 4706.1 / 4706.1 4985 / 4985 3834 / 3834 Output Total 1500 / 1500 1700 / 1700 600 / 600 Balance 3206.1 / 3206.1 3285 / 3285 3234 / 3234 Laboratory Tests Past 24 Hrs 09/02/18 09/02/18 05:02 05:02 Sodium 143 Potassium 3.1 L Chloride 107 Carbon Dioxide 27.0 Anion Gap 9 BUN 6 L Creatinine 0.87 Estim Creat Clear Calc 138.75 Est GFR (MDRD) Af Amer 133 Est GFR (MDRD) Non-Af 110 BUN/Creatinine Ratio 6.9 L Glucose 84 Calcium 8.3 L Magnesium 1.9 Troponin I < 0.015 Discharge Activity: - - Avoid aggressive activity until re-evaluation per Dr. Weiss. Call your doctor if you observe: Fever of 101 or Higher, Inability to urinate, Inability to have a bowel movement, Shortness of breath, Dizziness, Fainting spells, Chest pain, Uncontrolled pain Home Medications: Medications to take at Discharge Calcium Carbonate [Tums] 1,000 mg PO PRN PRN 08/28/18 Acetaminophen [Tylenol Extra Strength] 1,000 mg PO Q8H PRN #0 09/02/18 Ciprofloxacin [Cipro] 500 mg PO BID #10 tablet 12/04/18 Ibuprofen [Motrin] 400 - 800 mg PO Q6H PRN PRN tablet 09/02/18 Metronidazole [Flagyl] 500 mg PO TIDCM #15 tablet 09/02/18 Pantoprazole Sodium [Protonix] 20 mg PO BID #60 tablet 09/02/18 proMETHazine tablet [Phenergan tablet] 25 mg PO Q6H PRN PRN #20 tablet 09/02/18 Following Prescrptions Were Given to Patient: proMETHazine tablet [Phenergan tablet] 25 mg PO Q6H PRN PRN #20 tablet PRN Reason: nausea, emesis Ciprofloxacin [Cipro] 500 mg PO BID #10 tablet Pantoprazole Sodium [Protonix] 20 mg PO BID #60 tablet Metronidazole [Flagyl] 500 mg PO TIDCM #15 tablet Primary Care Physician: Berna Wren NP-C [Primary Care Provider] - Please follow up with your Primary Care Physician in: Follow-up within 3-5 days to review admission. Please Follow Up With: Roxi Weiss MD When: Follow-up 1 week. Patient Instructions: Understanding Diverticulosis and Diverticulitis, Discharge Instructions for Diverticulitis, Discharge Instructions: Eating a Full Liquid Diet Disposition: Home Minutes spent on discharge:: 35 Patient Condition:: Fair Medical Necessity - Tobacco Use Smoking Status: Light Smoker (<10/day) Tobacco Use: Cigarettes Meaningful Use Info Meaningful Use Diagnoses (Choose all that apply): None applicable Code Visit Inpatient E&M: 24492 Disch Hosp
--- OUTSIDE RECORDS SUMMARY | 2018-10-23 16:16 | XMS RPT_ITS ---
:1990 Author Organization OHIP Support Name Relationship Address Phone JOANNA CLAYTON Unavailable [address] + [place] [address] D Unavailable Unavailable Unavailable DAMON, KRISTYN Unavailable [address] + [place] [address] NIKOLAS CLAYTONRA Unavailable [address] + [place] [address] D Unavailable Unavailable Unavailable DAMON, KRISTYN Unavailable [address] + [place] [address] MATILDE JOANNA Unavailable [address] + [place] [address] D Unavailable Unavailable Unavailable DAMON, KRISTYN Unavailable [address] + [place] [address] MATILDE JOANNA Unavailable [address] + [place] [address] D Unavailable Unavailable Unavailable DAMON, KRISTYN Unavailable [address] + [place] [address] MAITLDE JOANNA Unavailable [address] + [place] [address] D Unavailable Unavailable Unavailable DAMON, KRISTYN Unavailable [address] + [place] [address] MATILDE JOANNA Unavailable [address] + [place] [address] D Unavailable Unavailable Unavailable DAMON, KRISTYN Unavailable [address] + [place] [address] MATILDE JOANNA Unavailable [address] + [place] [address] D Unavailable Unavailable Unavailable DAMON, KRISTYN Unavailable [address] + [place] [address] MATILDE, JOANNA Unavailable [address] + [place] [address] D Unavailable Unavailable Unavailable DAMON, KRISTYN Unavailable [address] + [place] [address] MATILDE, JOANNA Unavailable [address] + [place] [address] D Unavailable Unavailable Unavailable DAMON, KRISTYN Unavailable [address] + [place] [address] MATILDE, JOANNA Unavailable [address] + [place] [address] D Unavailable Unavailable Unavailable NELSON, KRISTYN Unavailable [address] + [place] [address] MATILDE, JOANNA Unavailable [address] + [place] [address] D Unavailable Unavailable Unavailable DAMON, KRISTYN Unavailable [address] + [place] [address] MATILDE, JOANNA Unavailable [address] + [place] [address] D Unavailable Unavailable Unavailable DAMON, KRISTYN Unavailable [address] + [place] [address] MATILDE, JOANNA Unavailable [address] + [place] [address] D Unavailable Unavailable Unavailable DAMON, KRISTYN Unavailable [address] + [place] [address] MATILDE, JOANNA Unavailable [address] + [place] [address] D Unavailable Unavailable Unavailable DAMON, KRISTYN Unavailable [address] + [place] [address] MATILDE, JOANNA Unavailable [address] + [place] [address] D Unavailable Unavailable Unavailable DAMON, KRISTYN Unavailable [address] + [place] [address] MATILDE, JOANNA Unavailable [address] + [place] [address] D Unavailable Unavailable Unavailable DAMON, KRISTYN Unavailable [address] + [place] [address] MATILDE, JOANNA Unavailable [address] + [place] [address] D Unavailable Unavailable Unavailable DAMON, KRISTYN Unavailable [address] + [place] [address] MATILDE, JOANNA Unavailable [address] + [place] [address] D Unavailable Unavailable Unavailable DAMON, KRISTYN Unavailable [address] + [place] [address] MATILDE, JOANNA Unavailable [address] + [place] [address] D Unavailable Unavailable Unavailable DAMON, KRISTYN Unavailable [address] + [place] [address] MATILDE, JOANNA Unavailable [address] + [place] [address] D Unavailable Unavailable Unavailable DAMON, KRISTYN Unavailable [address] + [place] [address] MATILDE, JOANNA Unavailable [address] + [place] [address] D Unavailable Unavailable Unavailable DAMON, KRISTYN Unavailable [address] + [place] [address] MATILDE, JOANNA Unavailable [address] + [place] [address] D Unavailable Unavailable Unavailable DAMON, KRISTYN Unavailable [address] + [place] [address] MATILDE, JOANNA Unavailable [address] + [place] [address] D Unavailable Unavailable Unavailable DAMON, KRISTYN Unavailable [address] + [place] [address] MATILDE, JOANNA Unavailable [address] + [place] [address] D Unavailable Unavailable Unavailable DAMON, KRISTYN Unavailable [address] + [place] [address] JOANNA CLAYTON Unavailable [address] + [place] [address] D Unavailable Unavailable Unavailable KRISTYN DAMON Unavailable [address] + [place] [address] Joanna Clayton Unavailable Unavailable + Bailey Damon Unavailable [address] + [place] [address] Care Team Providers Name Role Phone PROVIDER, UNKNOWN Referring Unavailable Nicolás Galarza Primary Care Unavailable PROVIDER, UNKNOWN Attending Unavailable [facility] Unavailable Rex Lomas Attending Unavailable Sonam Finch Attending Unavailable [facility] Unavailable [facility] Unavailable Jopperi, Ruiz Admitting Unavailable Robotham, Roxi Consulting Unavailable Shasta Cueto Attending Unavailable Argentina, Ruiz Attending Unavailable [facility] Unavailable Jopperi, Ruiz Admitting Unavailable Robotham, Roxi Attending Unavailable [facility] Unavailable Robotham, Roxi Consulting Unavailable Ashelfah, Ghasem Consulting Unavailable Jopperi, Ruiz Admitting Unavailable Ashelfah, Ghasem Attending Unavailable [facility] Unavailable Robotham, Roxi Consulting Unavailable Ashelfah, Ghasem Consulting Unavailable Jopperi, Ruiz Admitting Unavailable Robotham, Roxi Attending Unavailable [facility] Unavailable Robotham, Roxi Consulting Unavailable Ashelfah, Ghasem Consulting Unavailable Jopperi, Ruiz Admitting Unavailable Kulwinder Prasad Attending Unavailable [facility] Unavailable Robotham, Roxi Consulting Unavailable Ashelfah, Ghasem Consulting Unavailable Jopperi, Ruiz Admitting Unavailable Ashelfah, Ghasem Attending Unavailable [facility] Unavailable Robotham, Roxi Consulting Unavailable Ashelfah, Ghasem Consulting Unavailable Jopperi, Ruiz Admitting Unavailable Kulwinder Prasad Attending Unavailable [facility] Unavailable Robotham, Roxi Consulting Unavailable Ashelfah, Ghasem Consulting Unavailable Jopperi, Ruiz Admitting Unavailable Ashelfah, Ghasem Attending Unavailable [facility] Unavailable Robotham, Roxi Consulting Unavailable Ashelfah, Ghasem Consulting Unavailable Jopperi, Ruiz Admitting Unavailable Robotham, Roxi Attending Unavailable [facility] Unavailable Robotham, Roxi Consulting Unavailable White, Shasta Consulting Unavailable Jopperi, Ruiz Admitting Unavailable White, Shasta Attending Unavailable [facility] Unavailable Robotham, Roxi Consulting Unavailable White, Shasta Consulting Unavailable Jopperi, Ruiz Admitting Unavailable Robotham, Roxi Attending Unavailable [facility] Unavailable Robotham, Roxi Consulting Unavailable White, Shasta Consulting Unavailable Jopperi, Ruiz Admitting Unavailable White, Shasta Attending Unavailable [facility] Unavailable Robotham, Roxi Consulting Unavailable White, Shasta Consulting Unavailable [facility] Unavailable Sementi, Sonam Admitting Unavailable Cebul, Brendon Consulting Unavailable Paintsil, Kingston Attending Unavailable Sementi, Sonam Admitting Unavailable Sementi, Sonam Attending Unavailable [facility] Unavailable Cebul, Brendon Consulting Unavailable Sementi, Sonam Consulting Unavailable Sementi, Sonam Admitting Unavailable Robotham, Roxi Attending Unavailable [facility] Unavailable Cebul, Brendon Consulting Unavailable White, Shasta Consulting Unavailable Sementi, Sonam Admitting Unavailable White, Shasta Attending Unavailable [facility] Unavailable Cebul, Brendon Consulting Unavailable White, Shasta Consulting Unavailable Sementi, Sonam Admitting Unavailable Robotham, Roxi Attending Unavailable [facility] Unavailable Cebul, Brendon Consulting Unavailable White, Shasta Consulting Unavailable Sementi, Sonam Admitting Unavailable White, Shasta Attending Unavailable [facility] Unavailable Cebul, Brendon Consulting Unavailable White, Shasta Consulting Unavailable Sementi, Sonam Admitting Unavailable Robotham, Roxi Attending Unavailable [facility] Unavailable Cebul, Brendon Consulting Unavailable White, Shasta Consulting Unavailable Sementi, Sonam Admitting Unavailable White, Shasta Attending Unavailable [facility] Unavailable Cebul, Brendon Consulting Unavailable White, Shasta Consulting Unavailable Sementi, Sonam Admitting Unavailable Robotham, Roxi Attending Unavailable [facility] Unavailable Cebul, Brendon Consulting Unavailable White, Shasta Consulting Unavailable Sementi, Sonam Admitting Unavailable Paintsil, Kingston Attending Unavailable [facility] Unavailable Cebul, Brendon Consulting Unavailable Paintsil, Thelma Consulting Unavailable PROBLEMS PROBLEMS DATE TYPE CONDITION / CODE ATTENDING STATUS SOURCE 09/09/2018 Unknown K57.92 - Sementi, Active [facility] unspecified, without Repository perforation or abscess without bleeding / K57.92(ICD-10) 05/15/2018 Admitting Dental caries, Unknown Active [facility] unspecified / System K02.9(ICD-10) Repository 05/15/2018 Admitting Periapical abscess Unknown Active [facility] Diagnosis without sinus / System K04.7(ICD-10) Repository 05/15/2018 Admitting Gastro-esophageal Unknown Active [facility] Diagnosis reflux disease System without esophagitis Repository / K21.9(ICD-10) 05/15/2018 Admitting Nicotine dependence, Unknown Active [facility] Diagnosis cigarettes, System uncomplicated / Repository F17.210(ICD-10) 05/15/2018 Admitting Other specified Unknown Active [facility] Diagnosis disorders of teeth System and supporting Repository structures / K08.89(ICD-10) PROCEDURES PROCEDURES No Procedure Records FoundRESULTS RESULTS EMERGENCY DEPARTMENT Observed: 09/10/2018 Status: F Source: [facility] SUMMARY 12:35 AM [facility] REPOSITORY [facility] Medical Records Department [address] [place] [address] Emergency Department Summary 09/09/18 1630 MR#: [id number] Acct: [id number] Name: HUDSON CLAYTON Rep #: [id number] : 1990 28 From: Rex Lomas MD PCP: RAMAN Mendes Status: DEP ER - ER Visit Summary Date of Service: 09/09/18 Chief Complaint: Abdominal pain History of Present Illness: The patient is a 28 M presenting for evaluation secondary to abdominal pain. Patient has a recent history of having a sigmoid diverticulitis complicated by abscess. He was actually recently admitted to the hospital, and underwent CT-guided drainage for this. He was discharged from the hospital yesterday on a course of Flagyl with an improving CT scan. Patient states that when he woke up this morning he had sudden worsening of the pain. He reports that it is in his lower abdomen and right lower quadrant, and is a searing sharp stabbing type pain. He does endorse that he had some nausea and diarrhea associated with this. Denies any presence of fevers. Denies any urinary signs or symptoms. Review of systems otherwise negative. Physical Examination: Vital signs are within normal limits. Visibly uncomfortable male otherwise not physiologic distress. Head normocephalic. Moist mucous membranes. Neck was supple. Heart regular rate and rhythm lungs clear. Abdomen is tender in the right lower quadrant with guarding. Normal bowel sounds noted. There is bruising noted over the patient's abdomen from his CT-guided drainage procedure. Test Results: CBC demonstrates leukocytosis of 12 which is increased from the patient's discharge white blood cell count yesterday of 9. Metabolic panel is negative. CT abdomen and pelvis shows no change of the patient's abscess and no other new changes. Emergency Department Course and Treatment: Patient presented for evaluation secondary to abdominal pain in the setting of sigmoid abscess and recent discharge from the hospital. Patient's pain was addressed with Dilaudid and Phenergan. Laboratory workup shows the patient to have somewhat of a worsening leukocytosis. I had a discussion with the patient's surgeon Dr. Weiss who recommended repeat CT scan. This was performed and shows no evidence of acute changes. I further discussed this with surgery, who recommended the patient be readmitted for IV antibiotics and n.p.o. status. She also requested that the patient potentially see psychiatry as an inpatient as he does have underlying psychiatric issues. She requested the patient be admitted under the hospitalist. Hospitalist and Surgery had a discussion with the patient and he wishes to go home. I feel this is appropriate. He was discharged Disposition: Discharge Impression: 1. Sigmoid diverticulitis with 3 cm abscess, subsequent encounter 2. Intractable pain This note was generated with [employer] dictation software. It may contain incorrect words, spelling, and punctuation that were not noted in review of the chart prior to signing ED Disposition - Plan for ED Patient: Disposition: Home or Assisted Living Chief Complaint: Abd Pain Diagnosis: Diverticulitis Instructions: ED Diverticulitis Prescriptions: Oxycodone HCl/Acetaminophen [Percocet 5/325] 1 - 2 tab PO Q4H PRN PRN 7 Days #50 tab PRN Reason: Pain Referrals: Roxi Weiss MD [STAFF PHYSICIAN] - Keep [facility] appointment What to do if you have Problems For any increased pain, shortness of breath, bleeding, nausea or vomiting, chest pain, or any unexpected problems, contact your Primary Care Provider. Call [facility] ([phone]) or report to the closest Emergency Room. Call 911 if necessary. 09/10/18 0035 <Electronically signed by Rex Lomas MD> Date Rex Lomas MD Cosigner Signature (If Indicated): Date CC: RAMAN Wren CONSULTATION Observed: 09/09/2018 Status: F Source: [facility] 9:20 PM [facility] REPOSITORY [facility] Medical Records Department [address] [place] [address] Consultation 09/09/18 1837 MR#: [id number] Acct: [id number] Name: HUDSON CLAYTON Rep #: [id number] : 1990 28 From: Vika Finch DO PCP: RAMAN Mendes Status: DEP ER Y Location: ED Problem List (1) Colonic diverticular abscess Status: Acute - Consult Date of Consult: 09/09/[address] Lomas Pt is a 28 YO male with a recent hx of diverticulitis followed by development of a diverticular abscess. He underwent percutaneous drainage of the abscess and was discharged on 09/08/18 on Cipro and Flagyl. He was instructed to eat a low residue diet. He was not given a narcotic at NH but, was told to take Motrin as needed for pain. He has taken 5-6 Motrin tablets today with no significant relief of the pain. He had a loose stool today. He has not had any emesis but, when the pain gets bad he feels nauseous. He was afebrile at presentation to the ED with stable VS's. CT scan of the abdomen and the pelvis was unchanged from the most recent CT scan. There is a small, 3 cm, residual abscess. alert and oriented X 3, appears anxious Lungs - CTA MM - moist Heart RRR without MM or gallop abdomen - soft, non-distended, normal BS's, pain with palpation of the suprapubic area but no guarding with palpation and no rebound no peripheral edema Impressions 1. diverticular abscess - S/P percutaneous drainage by the radiologist. AF. Unremarkable PE. Pt would like to go home and I think this is reasonable. I think the untreated BPD makes him anxious and worried that something else is wrong. I will send him home with Percocet 325 mg #50 and he will take 1-2 Q 4H PRN pain. He will call Dr. Weiss's office tomorrow for an appt in [address] Lomas and with Dr. Weiss. Pt was happy with the plan. - Reason for Consult abdominal pain with recent hx of a diverticular abscess Code Visit Inpatient E AND M: 82335 Subs Hosp L2 09/09/182119 <Electronically signed by Vika Finch DO> Date Vika Finch DO Cosign Signature (if applicable): Date CC: CARE NAVIGATOR-C Berna Wren; Roxi Weiss MD Signed ABDOMEN/PELVIS W IV CONT Observed: 09/09/2018 Status: F Source: RUSSELL ONLY 3:49 PM [facility] REPOSITORY [facility] Imaging Services [address] [place] [address] Abdomen/Pelvis W IV Cont ONLY MR#: [id number] Acct: [id number] Name: HUDSON CLAYTON Rep #: [id number] : 1990 M 28 From: Armando Rebollar MD PCP: Berna Wren, CARE NAVIGATOR-C Status: REG ER Study: Abdomen/Pelvis W IV Cont ONLY Date of Exam: 09/09/18 Exam# [id number] Ordering Dr: Rex Lomas MD STUDY: CT ABDOMEN AND PELVIS WITH CONTRAST REASON FOR EXAM: Male, 28 years old. Previous diverticular abscess. RADIATION DOSAGE (If Supplied By Facility): CTDIvol = ( 18.72 ) mGy, DLP = ( 1396.76 ) mGycm TECHNIQUE: Transaxial images were obtained from the dome of the diaphragm to the symphysis pubis without oral contrast. 100CC ml of Isovue 300 contrast was administered. Sagittal and coronal images were reconstructed. Individualized dose optimization techniques were used for this CT. COMPARISON: 09/08/2018. FINDINGS: The visualized lung bases are unremarkable. The visualized portions of the heart are within normal limits. There is decreased attenuation of the liver consistent with steatosis. There is hepatomegaly. Normal gallbladder and extrahepatic biliary system. Normal spleen. Normal pancreas. Normal bilateral adrenal glands. Normal right kidney. Normal left kidney. Evaluation of the GI tract is limited by absence of oral contrast. Cannot exclude stomach wall thickening. No dilated loops of bowel or evidence for obstruction. Cannot exclude segmental thickening of the [place] of the small or large bowel. Cannot exclude enteritis or colitis. Moderate diffuse fecal retention, along with fluid density throughout the colon which can be seen in nonspecific diarrhea. Again seen is mild diverticulosis of the sigmoid colon currently without diverticulitis. Stable appearance of a 3 cm fluid collection directly over the bladder consistent with a small residual abscess. Mild increased density of the adjacent fat from probable edema and inflammation.. Normal abdominal aorta. Normal inferior vena cava. Normal retroperitoneum. Normal urinary bladder. Normal abdominal wall. Normal osseous structures. CT/Abdomen/Pelvis W IV Cont ONLY IMPRESSION: No change. Stable 3 cm probable abscess medial to the sigmoid colon and over the surface of the bladder. Electronically Signed: Armando Rebollar MD at 17:24 EST , Service support , CC: RAMAN Wren; Rex Lomas Barrel Raiser: Signed CBC W/DIFF, AUTOMATED Collected: 09/09/2018 Status: F Source: [place] 3:40 PM [facility] REPOSITORY TYPE CODE TESTS RESULT OUT OF RANGE REFERENCE UNITS LAB L100.1000 4.4-11.0 K/mm3 High WBC 12.5 LAB L100.1200 4.6-6.2 M/mm3 Normal RBC 5.63 LAB L100.1300 13.0-16.5 g/dl Normal HGB 16.4 LAB L100.1400 40-54 % Normal HCT 48.7 LAB L100.1500 80-94 fL Normal MCV 86.5 LAB L100.1600 27.0-32.0 pg Normal MCH 29.1 LAB L100.1700 32-36 g/gl Normal MCHC 33.7 LAB L100.1810 11.6-14.6 % Normal RDW CV 14.1 LAB L100.1820 35.1-43.9 fl High RDW SD 45.1 LAB L100.1900 150-450 K/mm3 Normal PLT 405 LAB L100.2000 6.2-12.0 fl Normal MPV 11.3 LAB L100.2100 47-70 % High NEUT% 72.3 LAB L100.2200 19-41 % Low LY% 17.6 LAB L100.2300 0-10 % Normal MONO% 4.9 LAB L100.2400 0-5 % Normal EO% 4.4 LAB L100.2500 0-1 % Normal BASO% 0.2 LAB L100.2550 0.0-0.9 % Normal IM GRAN % 0.600 Result Comment: IG% - Immature Granulocytes (promyelocytes, myelocytes and metamyelocytes) > 1% indicates that a LEFT SHIFT is Present. LAB L100.2620 2.0-7.7 X10 3/uL High Absolute Neut 9.0 LAB L100.2720 0.83-4.51 X10 3/ul Normal Absolute Lymph 2.20 Performed By: #### L100.0100 #### [facility] [place], [address] BASIC METABOLIC Collected: 09/09/2018 Status: F Source: [place] PROFILE (BMP) 3:40 PM [facility] REPOSITORY TYPE CODE TESTS RESULT OUT OF RANGE REFERENCE UNITS LAB L501.0100 74-106 mg/dL High GLU 133 Result Comment: Fasting Glucose result greater than or equal to 126 mg/dL suggests DIABETES MELLITUS per A.D.A. criteria. Please note revised GLUCOSE reference range effective 2017. LAB L501.1000 7-18 mg/dL Normal BUN 14 LAB L501.1100 0.70-1.30 mg/dL Normal CREAT,SERUM 1.01 Result Comment: The validity of the calculated GFR AND GFRAA in patients over 70 years has not been determined. Clinical correlation is essential. LAB L501.1110 >60 mL/min Normal EST GFR 93 Result Comment: Non- GFR Calc LAB L501.1115 >60 mL/min Normal EST GFR - AA 113 Result Comment: GFR Calc LAB L501.1255 ml/min Normal Estimated CRCL 119.52 LAB L501.1300 10-20 RATIO BUN/CRE Normal 13.9 LAB L501.2200 8.5-10 mg/dL .1 CA Normal 9.0 LAB L501.5300 136-14 mmol/L 5 NA Normal 140 LAB L501.5600 3.5-5. mmol/L 1 K Normal 3.8 LAB L501.5900 98-107 mmol/L CL Normal 106 LAB L501.6100 21.0-3 mmol/L 2.0 CO2 Normal 21.0 LAB L501.6200 5-15 GAP Normal 13 Performed By: #### L500.2500 #### [facility] [address] [facility] [place], [address] DISCHARGE SUMMARY Observed: 09/08/2018 Status: F Source: [place] 2:15 PM [facility] REPOSITORY [facility] Medical Records Department [address] [place] [address] Discharge Summary 09/08/18 0905 MR#: [id number] Acct: [id number] Name: HUDSON CLAYTON Rep #: [id number] : 1990 28 From: Thelma Musa MD PCP: RAMAN Mendes Status: DIS IN Y Location: MS3 [id number] Discharge Date and Diagnosis Date of Admission: 09/04/18 Date of Discharge: 09/08/18 - Primary Discharge Diagnosis Active and Suspected Problems (Last Reviewed 09/04/18 @ 02:53 by Vika Finch DO) Colonic diverticular abscess (Acute) Hypokalemia (Acute) Nicotine dependence Anxiety disorder - Secondary Discharge Diagnosis Chronic Problems (Last Reviewed 09/04/18 @ 02:53 by Vika Finch DO) IBS (irritable bowel syndrome) (Chronic) Hemorrhoids (Chronic) Tobacco dependence (Chronic) GERD (gastroesophageal reflux disease) (Chronic) Obesity (Chronic) PTSD (post-traumatic stress disorder) (Chronic) Bipolar disorder (Chronic) Hospital Course and Treatment Imaging Results: 09/08/18 07:30 CT Abd [Abdomen/Pelvis WITH Contrast] [CT] Timed Clinical Impression(s) from Imaging Studies Abdomen/Pelvis CT 09/04/18 00:15 IMPRESSION: Acute sigmoid diverticulitis with a 4 x 3 cm abscess formation in between loops of large bowel in the midline just above the urinary bladder. This was not present in the last examination of August 28, 2000 8T Electronically Signed: Renny Girard MD at 1:50 EST Tel , Service support , Abscess Drainage CT 09/04/18 07:52 IMPRESSION: 1. CT directed drainage of a fluid collection using CT image guidance and image documentation as described. 2. Conscious Sedation protocol utilized with independent monitoring Electronically Signed: Chaka Burciaga MD at 13:40 EST Tel [phone], Service support , Abdomen/Pelvis CT 09/08/18 07:30 IMPRESSION: Decrease inflammatory changes within the sigmoid mesentery as well as decreased size of the previously seen abscess cavity presently measuring 2.5 cm x 2.1 cm. Electronically Signed: Chaka Burciaga MD at 8:27 EST Tel [phone], Service support , General surgery Operations: None Procedures: None Summary of Care Provided: The patient is a 28 year old M with past medical history of obesity, nicotine dependency, GERD, bipolar disorder, recently diagnosed with diverticulitis with microperforation and discharged on 09/02/18 with antibiotics. Patient was readmitted 2 days later with worsening abdominal pain, nausea, bilious emesis. Repeat CT scan of the abdomen and pelvis showed acute sigmoid diverticulosis with a 4 cm x 3 cm abscess located in between loops of large bowel. Surgery was consulted. IR drain placement attempted but no fluid was aspirated. Patient was managed conservatively with bowel rest, IV antibiotics, IV fluids and pain control. Patient continued to improve. In the course of the hospital stay, patient was seen by behavioral health, tired on gabapentin and also on Klonopin, encouraged to follow-up with mental health or outpatient counseling or psychiatry services. On the day of discharge, patient had repeat CT scan of the abdomen and pelvis that showed improvement in the inflammation of the sigmoid colon and reduction in the size of the abscess to about 2 x 2. Patient was discharged and will follow up in the outpatient in 1-2 weeks. He was discharged on 14 days of Cipro and Flagyl. Subjective: On the day of discharge, patient was seen and examined. Denied any new complaints. Able to tolerate regular diet. - Physical Exam General: Alert, Oriented x3, Cooperative, No apparent distress HEENT: Atraumatic, PERRLA, EOMI, Normocephalic Neck: Supple, No JVD, Negative Carotid Bruits Lungs: Clear to auscultation, Normal air movement Cardiovascular: Regular rate, Regular Rhythm, Normal S1, Normal S2, No murmurs Abdomen: Bowel Sounds Present, Soft, Non Tender, Non-Distended, No Hepato-splenomegaly Extremities: No edema Skin: No rashes, No breakdown Musculoskeletal: No Tenderness to Palpation of Joints or Extremities Lymphatic: No Cervical, Supraclavicular, or Inguinal Adenopathy Neurological: Cranial nerves II-XII grossly intact, Neuro grossly intact Psych/Mental Status: Normal Affect, Appropriate Vital Signs Temp Pulse Resp BP Pulse Ox 97.5 F L 78 18 147/83 H 95 09/08/18 07:57 09/08/18 07:57 09/08/18 07:57 09/08/18 07:57 09/08/18 07:57 Oxygen Delivery Method [5] Room Air Oxygen Delivery Method [4] Room Air Oxygen Delivery Method [3] Room Air Oxygen Delivery Method [2] Room Air Oxygen Delivery Method [1 ( Room Air Initial Baseline)] Oxygen Delivery Method Room Air Weight: 112.122 kg Body Mass Index (BMI) 33.5 Intake and Output for Last 24 Hours Intake Total 2163 / 2163 2733 / 2733 1355 / 1355 Output Total / 6 Balance 2163 / 2163 2727 / 2727 1355 / 1355 Laboratory Tests Past 24 Hrs WBC 9.2 RBC 5.28 Hgb 15.2 Hct 45.5 MCV 86.2 MCH 28.8 MCHC 33.4 Discharge Diet: No Restrictions Discharge Activity: Return to Normal Activity Call your doctor if you observe: Fever of 101 or Higher Home Medications: Medications to take at Discharge Calcium Carbonate [Tums] 1,000 mg PO PRN PRN 08/28/18 Acetaminophen [Tylenol Extra Strength] 1,000 mg PO Q8H PRN #0 09/02/18 proMETHazine tablet [Phenergan tablet] 25 mg PO Q6H PRN PRN #20 tablet 09/02/18 Pantoprazole Sodium [Protonix] 20 mg PO BID 09/04/18 Ciprofloxacin [Cipro] 500 mg PO BID #28 tablet 09/08/18 Clonazepam [Klonopin] 1 mg PO BID #20 tablet 09/08/18 Ensure Clear 120 ml PO 4X/DAY #120 liquid 09/08/18 Gabapentin [Neurontin] 100 mg PO TIDCM #30 capsule 09/08/18 Metronidazole [Flagyl] 500 mg PO TIDCM #42 tablet 09/08/18 Following Prescrptions Were Given to Patient: Ciprofloxacin [Cipro] 500 mg PO BID #28 tablet Clonazepam [Klonopin] 1 mg PO BID #20 tablet Gabapentin [Neurontin] 100 mg PO TIDCM #30 capsule Metronidazole [Flagyl] 500 mg PO TIDCM #42 tablet Ensure Clear 120 ml PO 4X/DAY #120 liquid Other Amb Orders: Basic Metabolic Profile (BMP) Time Frame: 1 Week, Location: Laboratory CBC W/Diff, Automated Time Frame: 1 Week, Location: Laboratory Primary Care Physician: Berna Wren NP-C [Primary Care Provider] - Please follow up with your Primary Care Physician in: within 1- 2 week Please Follow Up With: Roxi Weiss MD When: within 1-2 weeks When: Follow-up with your psychiatrist within 1-2 weeks Disposition: Home Minutes spent on discharge:: 45 Patient Condition:: Stable Medical Necessity - Tobacco Use Smoking Status: Current every day smoker Tobacco Use: Cigarettes Meaningful Use Info Meaningful Use Diagnoses (Choose all that apply): None applicable Code Visit Inpatient E AND M: 92424 Disch Hosp 09/08/18 1415 <Electronically signed by Thelma Musa MD> Date Thelma Musa MD Cosigner Signature (if applicable): Date CC: RAMAN Wren; Thelma Musa MD Signed DISCHARGE INSTRUCTION Observed: 09/08/2018 Status: F Source: RUSSELL 9:05 [facility] REPOSITORY [facility] Medical Records Department [address] [place] [address] Instructions for Home/Discharge Instructions 09/08/18 0900 MR#: [id number] Acct: [id number] Name: HUDSON CLAYTON Rep #: [id number] : 1990 28 From: Thelma Musa MD PCP: RAMAN Mendes Status: ADM IN - Discharge Diagnoses Current Active Problems: Current Active and Chronic Problems (Last Reviewed 09/04/18 @ 02:53 by Vika Finch DO) Colonic diverticular abscess (Acute) Hypokalemia (Acute) Tobacco dependence (Chronic) GERD (gastroesophageal reflux disease) (Chronic) Obesity (Chronic) Reason(s) for Visit for Discharge Instructions: Diverticular abscess You will use the following diet at home:: Regular Your food should be the consistency of: Regular Your liquids should be the consistency of: Regular/Thin Discharge Activity: Return to Normal Activity Call your doctor if you observe: Fever of 101 or Higher Additional Instructions: Complete your antibiotics. Follow- up with Dr. Whitfield within 1-2 weeks. You will require a repeat CT scan of your abdomen and pelvis after you see her. Follow-up with your primary care doctor and psychiatrist within 1-2 weeks. Continue to monitor for fevers, worsening abdominal pain. Call your surgeon if abdominal pain, nausea or vomiting develops. Allergies/Adverse Reactions: Allergies dextromethorphan HBr [From NyQuil] Allergy (Verified 09/04/18 00:14) Anaphylaxis doxylamine [From NyQuil] Allergy (Verified 09/04/18 00:14) Anaphylaxis poison dennise extract [Poison Dennise Extract] Allergy (Verified 09/04/18 00:14) Anaphylaxis pseudoephedrine HCl [From NyQuil] Allergy (Verified 09/04/18 00:14) Anaphylaxis venom-honey bee [bee venom (honey bee)] Allergy (Verified 09/04/18 00:14) Anaphylaxis MUSHROOMS Allergy (Uncoded 09/04/18 00:14) Anaphylaxis Medications to take at Discharge Calcium Carbonate [Tums] 1,000 mg PO PRN PRN 18 Acetaminophen [Tylenol Extra Strength] 1,000 mg PO Q8H PRN #0 09/02/18 proMETHazine tablet [Phenergan tablet] 25 mg PO Q6H PRN PRN #20 tablet 09/02/18 Pantoprazole Sodium [Protonix] 20 mg PO BID 09/04/18 Ciprofloxacin [Cipro] 500 mg PO BID #28 tablet 09/08/18 Clonazepam [Klonopin] 1 mg PO BID #20 tablet 09/08/18 Ensure Clear 120 ml PO 4X/DAY #120 liquid 09/08/18 Gabapentin [Neurontin] 100 mg PO TIDCM #30 capsule 09/08/18 Metronidazole [Flagyl] 500 mg PO TIDCM #42 tablet 09/08/18 The following prescriptions were given: Ciprofloxacin [Cipro] 500 mg PO BID #28 tablet Clonazepam [Klonopin] 1 mg PO BID #20 tablet Gabapentin [Neurontin] 100 mg PO TIDCM #30 capsule Metronidazole [Flagyl] 500 mg PO TIDCM #42 tablet Ensure Clear 120 ml PO 4X/DAY #120 liquid Orders to be completed after discharge: Basic Metabolic Profile (BMP) Time Frame: 1 Week, Location: Laboratory CBC W/Diff, Automated Time Frame: 1 Week, Location: Laboratory Primary Care Physician: Berna Wren NP-C [Primary Care Provider] - Please follow up with your Primary Care Physician in: within 1- 2 week Test Results: Test results from this visit will be discussed in further detail at your follow-up appointment, if applicable. Please Follow Up With: Roxi Weiss MD When: within 1-2 weeks When: Follow-up with your psychiatrist within 1-2 weeks Proposed Discharge Date: 09/08/18 09/08/18904 <Electronically signed by Thelma Musa MD> Date Thelma Musa MD CC: CARE NAVIGATORMassiel Wren; Brendon Rosales MD BASIC METABOLIC Collected: 09/08/2018 Status: F Source: RUSSELL PROFILE ([facility]) 5:47 AM [facility] REPOSITORY TYPE CODE TESTS RESULT OUT OF RANGE REFERENCE UNITS LAB L501.0100 74-106 mg/dL High GLU 108 Result Comment: Fasting Glucose result from 100 to 125 mg/dL suggests IMPAIRED HOMEOSTASIS per A.D.A. criteria. Please note revised GLUCOSE reference range effective 2017. LAB L501.1000 7-18 mg/dL Normal BUN 11 LAB L501.1100 0.70-1.30 mg/dL Normal CREAT,SERUM 0.88 Result Comment: The validity of the calculated GFR AND GFRAA in patients over 70 years has not been determined. Clinical correlation is essential. LAB L501.1110 >60 mL/min Normal EST GFR 109 Result Comment: Non- GFR Calc LAB L501.1115 >60 mL/min Normal EST GFR - AA 131 Result Comment: GFR Calc LAB L501.1255 ml/min Normal Estimated CRCL 137.17 LAB L501.1300 10-20 RATIO BUN/CRE Normal 12.4 LAB L501.2200 8.5-10 mg/dL .1 CA Normal 8.9 LAB L501.5300 136-14 mmol/L 5 NA Normal 141 LAB L501.5600 3.5-5. mmol/L 1 K Normal 3.7 LAB L501.5900 98-107 mmol/L CL Normal 107 LAB L501.6100 21.0-3 mmol/L 2.0 CO2 Normal 24.0 LAB L501.6200 5-15 GAP Normal 10 Performed By: #### L500.2500 #### [facility] [address] [place], [address] CBC W/DIFF, AUTOMATED Collected: 09/08/2018 Status: F Source: [place] 5:27 AM [facility] REPOSITORY TYPE CODE TESTS RESULT OUT OF RANGE REFERENCE UNITS LAB L100.1000 4.4-11.0 K/mm3 Normal WBC 9.2 LAB L100.1200 4.6-6.2 M/mm3 Normal RBC 5.28 LAB L100.1300 13.0-16.5 g/dl Normal HGB 15.2 LAB L100.1400 40-54 % Normal HCT 45.5 LAB L100.1500 80-94 fL Normal MCV 86.2 LAB L100.1600 27.0-32.0 pg Normal MCH 28.8 LAB L100.1700 32-36 g/gl Normal MCHC 33.4 LAB L100.1810 11.6-14.6 % Normal RDW CV 13.8 LAB L100.1820 35.1-43.9 fl Normal RDW SD 43.3 LAB L100.1900 150-450 K/mm3 Normal PLT 362 LAB L100.2000 6.2-12.0 fl Normal MPV 11.3 LAB L100.2100 47-70 % Normal NEUT% 64.8 LAB L100.2200 19-41 % Normal LY% 21.9 LAB L100.2300 0-10 % Normal MONO% 5.8 LAB L100.2400 0-5 % High EO% 6.5 LAB L100.2500 0-1 % Normal BASO% 0.2 LAB L100.2550 0.0-0.9 % Normal IM GRAN % 0.800 Result Comment: IG% - Immature Granulocytes (promyelocytes, myelocytes and metamyelocytes) > 1% indicates that a LEFT SHIFT is Present. LAB L100.2620 2.0-7.7 X10 3/uL Normal Absolute Neut 6.0 LAB L100.2720 0.83-4.51 X10 3/ul Normal Absolute Lymph 2.02 Performed By: #### L100.0100 #### [facility] [address] [place], [address] ABDOMEN/PELVIS WITH Observed: 09/08/2018 Status: F Source: [place] CONTRAST 12:00 AM [facility] REPOSITORY [facility] Imaging Services [address] [place] [address] Abdomen/Pelvis WITH Contrast MR#: [id number] Acct: [id number] Name: HUDSON CLAYTON Rep #: [id number] : 1990 M 28 From: Chaka Burciaga MD PCP: Berna Wren CARE NAVIGATORMassiel Status: ADM IN Study: Abdomen/Pelvis WITH Contrast Date of Exam: 09/08/18 Exam# [id number] Ordering Dr: Roxi Weiss MD STUDY: CT ABDOMEN AND PELVIS WITH CONTRAST REASON FOR EXAM: Male, 28 years old. History of diverticulitis with abscess formation. RADIATION DOSAGE (If Supplied By Facility): CTDIvol = ( 13.3 ) mGy, DLP = ( 1322.26 ) mGycm TECHNIQUE: Transaxial images were obtained from the dome of the diaphragm to the symphysis pubis without oral contrast. 100 ml of Isovue 300 contrast was administered. Sagittal and coronal images were reconstructed. Individualized dose optimization techniques were used for this CT. COMPARISON: Comparison is made with prior study dated September 04, 2018. FINDINGS: The visualized lung bases are unremarkable. The visualized portions of the heart are within normal limits. Normal liver. Normal gallbladder and extrahepatic biliary system. Normal spleen. Normal pancreas. Normal bilateral adrenal glands. Normal right kidney. Normal left kidney. Normal visualized stomach. Normal small intestine. There are multiple colonic diverticula consistent with diverticulosis. The previously seen abscess in the pelvis adjacent to the mesenteric side of the sigmoid colon has decreased in size. It presently measures 2.5 cm x 2.1 cm. The inflammatory changes in the surrounding mesenteric fat has improved as well. The appendix is visualized and appears normal. Normal abdominal aorta. Normal inferior vena cava. There is borderline retroperitoneal lymphadenopathy with enlarged nodes no greater than 10mm in the short axis diameter. Normal urinary bladder. Normal abdominal wall. Normal osseous structures. CT/Abdomen/Pelvis WITH Contrast IMPRESSION: Decrease inflammatory changes within the sigmoid mesentery as well as decreased size of the previously seen abscess cavity presently measuring 2.5 cm x 2.1 cm. Electronically Signed: Chaka Burciaga MD at 8:27 EST Tel [phone], Service support , CC: RAMAN Wren; Roxi Weiss MD Barrel Raiser: Signed CBC W/DIFF, AUTOMATED Collected: 09/07/2018 Status: F Source: [place] 5:38 AM [facility] REPOSITORY TYPE CODE TESTS RESULT OUT OF RANGE REFERENCE UNITS LAB L100.1000 4.4-11.0 K/mm3 Normal WBC 9.7 LAB L100.1200 4.6-6.2 M/mm3 Normal RBC 5.21 LAB L100.1300 13.0-16.5 g/dl Normal HGB 15.2 LAB L100.1400 40-54 % Normal HCT 44.5 LAB L100.1500 80-94 fL Normal MCV 85.4 LAB L100.1600 27.0-32.0 pg Normal MCH 29.2 LAB L100.1700 32-36 g/gl Normal MCHC 34.2 LAB L100.1810 11.6-14.6 % Normal RDW CV 13.6 LAB L100.1820 35.1-43.9 fl Normal RDW SD 42.2 LAB L100.1900 150-450 K/mm3 Normal PLT 371 LAB L100.2000 6.2-12.0 fl Normal MPV 10.9 LAB L100.2100 47-70 % Normal NEUT% 65.2 LAB L100.2200 19-41 % Normal LY% 23.4 LAB L100.2300 0-10 % Normal MONO% 4.1 LAB L100.2400 0-5 % High EO% 6.5 LAB L100.2500 0-1 % Normal BASO% 0.3 LAB L100.2550 0.0-0.9 % Normal IM GRAN % 0.500 Result Comment: IG% - Immature Granulocytes (promyelocytes, myelocytes and metamyelocytes) > 1% indicates that a LEFT SHIFT is Present. LAB L100.2620 2.0-7.7 X10 3/uL Normal Absolute Neut 6.3 LAB L100.2720 0.83-4.51 X10 3/ul Normal Absolute Lymph 2.27 Performed By: #### L100.0100 #### [facility] [address] [place], [place], [address] BASIC METABOLIC Collected: 09/07/2018 Status: F Source: [place] PROFILE (BMP) 5:38 AM [facility] REPOSITORY TYPE CODE TESTS RESULT OUT OF RANGE REFERENCE UNITS LAB L501.0100 74-106 mg/dL Normal GLU 80 Result Comment: Please note revised GLUCOSE reference range effective 2017. LAB L501.1000 7-18 mg/dL Normal BUN 10 LAB L501.1100 0.70-1.30 mg/dL Normal CREAT,SERUM 0.73 Result Comment: The validity of the calculated GFR AND GFRAA in patients over 70 years has not been determined. Clinical correlation is essential. LAB L501.1110 >60 mL/min Normal EST GFR 135 Result Comment: Non- GFR Calc LAB L501.1115 >60 mL/min Normal EST GFR - AA 164 Result Comment: GFR Calc LAB L501.1255 ml/min Normal Estimated CRCL 165.36 LAB L501.1300 10-20 RATIO BUN/CRE Normal 13.7 LAB L501.2200 8.5-10 mg/dL .1 CA Normal 8.7 LAB L501.5300 136-14 mmol/L 5 NA Normal 139 LAB L501.5600 3.5-5. mmol/L 1 K Normal 3.7 LAB L501.5900 98-107 mmol/L High CL 108 LAB L501.6100 21.0-3 mmol/L 2.0 CO2 Normal 22.0 LAB L501.6200 5-15 GAP Normal 9 Performed By: #### L500.2500 #### [facility] [address] [place], [address] CBC W/DIFF, AUTOMATED Collected: 09/06/2018 Status: F Source: [place] 6:33 AM [facility] REPOSITORY TYPE CODE TESTS RESULT OUT OF RANGE REFERENCE UNITS LAB L100.1000 4.4-11.0 K/mm3 Normal WBC 7.8 LAB L100.1200 4.6-6.2 M/mm3 Normal RBC 4.91 LAB L100.1300 13.0-16.5 g/dl Normal HGB 14.2 LAB L100.1400 40-54 % Normal HCT 42.2 LAB L100.1500 80-94 fL Normal MCV 85.9 LAB L100.1600 27.0-32.0 pg Normal MCH 28.9 LAB L100.1700 32-36 g/gl Normal MCHC 33.6 LAB L100.1810 11.6-14.6 % Normal RDW CV 13.4 LAB L100.1820 35.1-43.9 fl Normal RDW SD 41.2 LAB L100.1900 150-450 K/mm3 Normal PLT 314 LAB L100.2000 6.2-12.0 fl Normal MPV 10.8 LAB L100.2100 47-70 % Normal NEUT% 67.0 LAB L100.2200 19-41 % Normal LY% 21.8 LAB L100.2300 0-10 % Normal MONO% 5.5 LAB L100.2400 0-5 % Normal EO% 5.0 LAB L100.2500 0-1 % Normal BASO% 0.3 LAB L100.2550 0.0-0.9 % Normal IM GRAN % 0.400 Result Comment: IG% - Immature Granulocytes (promyelocytes, myelocytes and metamyelocytes) > 1% indicates that a LEFT SHIFT is Present. LAB L100.2620 2.0-7.7 X10 3/uL Normal Absolute Neut 5.2 LAB L100.2720 0.83-4.51 X10 3/ul Normal Absolute Lymph 1.69 Performed By: #### L100.0100 #### [facility] [address] [place], [address] BASIC METABOLIC Collected: 09/06/2018 Status: F Source: RUSSELL PROFILE ([facility]) 6:33 AM [facility] REPOSITORY TYPE CODE TESTS RESULT OUT OF RANGE REFERENCE UNITS LAB L501.0100 74-106 mg/dL Low GLU 61 Result Comment: Please note revised GLUCOSE reference range effective 2017. LAB L501.1000 7-18 mg/dL Normal BUN 10 LAB L501.1100 0.70-1.30 mg/dL Normal CREAT,SERUM 0.72 Result Comment: The validity of the calculated GFR AND GFRAA in patients over 70 years has not been determined. Clinical correlation is essential. LAB L501.1110 >60 mL/min Normal EST GFR 137 Result Comment: Non- GFR Calc LAB L501.1115 >60 mL/min Normal EST GFR - AA 165 Result Comment: GFR Calc LAB L501.1255 ml/min Normal Estimated CRCL 167.65 LAB L501.1300 10-20 RATIO BUN/CRE Normal 13.8 LAB L501.2200 8.5-10 mg/dL .1 CA Normal 8.6 LAB L501.5300 136-14 mmol/L 5 NA Normal 139 LAB L501.5600 3.5-5. mmol/L 1 K Normal 4.0 LAB L501.5900 98-107 mmol/L CL Normal 106 LAB L501.6100 21.0-3 mmol/L 2.0 CO2 Normal 22.0 LAB L501.6200 5-15 GAP Normal 11 Performed By: #### L500.2500 #### [facility] [address] [place], [address] URINALYSIS, COMPLETE Collected: 09/05/2018 Status: F Source: [facility] 7:41 PM [facility] REPOSITORY Order Comment: How was Urine Obtained? MEDICATION CARE MANAGER TO SPECIFY TYPE CODE TESTS RESULT OUT OF RANGE REFERENCE UNITS LAB L400.3000 Yellow COLOR Normal Yellow LAB L400.3050 Clear Normal CLARITY Clear LAB L400.3200 Normal mg/dl Normal GLUCOSE, UR Normal LAB L400.3300 Negative mg/dL Normal BILIRUBIN URINE Negative LAB L400.3400 Negative mg/dl High KETONE UR 150 Result Comment: CRITICAL VALUE *H CRITICAL VALUE VERIFIED. CALLED TO CRISTIN TIERNEY 09/05/182020 Cody Martinez. RESULTS READ BACK BY CRISTIN . LAB L400.3465 1.002-1.030 Normal SP.GR. DIPSTX 1.015 LAB L400.3550 5.0 - 8.0 pH Normal UR 6.5 LAB L400.3600 Negative mg/dl Normal PROT DIPSTX Negative LAB L400.3700 Normal mg/dl Normal UROBILI Normal LAB L400.3750 Negative Normal NITRITE UR Negative LAB L400.3780 Negative /ul Normal OCCULT Negative BLOOD-UR LAB L400.3800 Negative /ul High 25 LEUK ESTERASE LAB L400.4050 0-5 /hpf Normal WBC 0-5 SEEN LAB L400.4100 0-5 /hpf 0 Normal RBC-UA SEEN LAB L400.4150 0-5 /hpf 0 Normal SQUAM EPI SEEN LAB L400.4300 None Seen /hpf Normal BACTERIA RARE LAB L400.4350 <or=2+ /hpf 0 Normal MUCUS, URINE SEEN Performed By: #### L400.0001 #### [facility] [address] [place], [place], [address] CBC W/DIFF, AUTOMATED Collected: 09/05/2018 Status: F Source: [facility] 9:23 AM [facility] REPOSITORY TYPE CODE TESTS RESULT OUT OF RANGE REFERENCE UNITS LAB L100.1000 4.4-11.0 K/mm3 Normal WBC 10.7 LAB L100.1200 4.6-6.2 M/mm3 Normal RBC 5.03 LAB L100.1300 13.0-16.5 g/dl Normal HGB 15.0 LAB L100.1400 40-54 % Normal HCT 43.3 LAB L100.1500 80-94 fL Normal MCV 86.1 LAB L100.1600 27.0-32.0 pg Normal MCH 29.8 LAB L100.1700 32-36 g/gl Normal MCHC 34.6 LAB L100.1810 11.6-14.6 % Normal RDW CV 13.5 LAB L100.1820 35.1-43.9 fl Normal RDW SD 41.4 LAB L100.1900 150-450 K/mm3 Normal PLT 343 LAB L100.2000 6.2-12.0 fl Normal MPV 10.7 LAB L100.2100 47-70 % High NEUT% 73.2 LAB L100.2200 19-41 % Low LY% 17.2 LAB L100.2300 0-10 % Normal MONO% 4.6 LAB L100.2400 0-5 % Normal EO% 4.1 LAB L100.2500 0-1 % Normal BASO% 0.4 LAB L100.2550 0.0-0.9 % Normal IM GRAN % 0.500 Result Comment: IG% - Immature Granulocytes (promyelocytes, myelocytes and metamyelocytes) > 1% indicates that a LEFT SHIFT is Present. LAB L100.2620 2.0-7.7 X10 3/uL High Absolute Neut 7.8 LAB L100.2720 0.83-4.51 X10 3/ul Normal Absolute Lymph 1.84 Performed By: #### L100.0100 #### [facility] [address] [place], [address] BASIC METABOLIC Collected: 09/05/2018 Status: F Source: [place] PROFILE (BMP) 9:23 AM [facility] REPOSITORY TYPE CODE TESTS RESULT OUT OF RANGE REFERENCE UNITS LAB L501.0100 74-106 mg/dL Low GLU 71 Result Comment: Please note revised GLUCOSE reference range effective 2017. LAB L501.1000 7-18 mg/dL Normal BUN 8 LAB L501.1100 0.70-1.30 mg/dL Normal CREAT,SERUM 0.75 Result Comment: The validity of the calculated GFR AND GFRAA in patients over 70 years has not been determined. Clinical correlation is essential. LAB L501.1110 >60 mL/min Normal EST GFR 130 Result Comment: Non- GFR Calc LAB L501.1115 >60 mL/min Normal EST GFR - AA 158 Result Comment: GFR Calc LAB L501.1255 ml/min Normal Estimated CRCL 160.95 LAB L501.1300 10-20 RATIO BUN/CRE Normal 10.6 LAB L501.2200 8.5-10 mg/dL .1 CA Normal 8.6 LAB L501.5300 136-14 mmol/L 5 NA Normal 137 LAB L501.5600 3.5-5. mmol/L 1 K Normal 3.6 LAB L501.5900 98-107 mmol/L CL Normal 103 LAB L501.6100 21.0-3 mmol/L 2.0 CO2 Normal 21.0 LAB L501.6200 5-15 GAP Normal 13 Performed By: #### L500.2500 #### [facility] [address] [place], [address] 12 LEAD ELECTROCARDIOGRAM Observed: 09/04/2018 Status: F Source: [place] 2:49 PM [facility] REPOSITORY [facility] Cardiovascular Services [address] [place] [address] 12 Lead EKG 08/30/18 0748 MR#: [id number] Acct: [id number] Name: HUDSON CLAYTON Rep #: [id number] : 1990 28 From: Matty Thompson MD Attending Dr: Shasta Cueto Status: DIS IN Ordering Dr: Alba Burgos MD Date: 08/30/18 Location: MS3 Sex: M C Admitted: 08/28/18 Test Reason : PRE OP Blood Pressure : / mmHG Vent. Rate : 079 BPM Atrial Rate : 079 BPM P-R Int : 152 ms QRS Dur : 100 ms QT Int : 360 ms P-R-T Axes : 016 -39 008 degrees QTc Int : 412 ms Normal sinus rhythm Left axis deviation Poor R wave progression Abnormal ECG Confirmed by JAY ANDRADE, MATTY ([id number]), magazine editor ORESTES GAR ([id number]) on 09/04/2018 2:49:21 PM Referred By: PAT Confirmed By:MATTY THOMPSON MD 09/04/18 1449 Date Matty Thompson MD CC: Alba Burgos MD; RAMAN Wren; Shasta Cueto Signed 12 LEAD ELECTROCARDIOGRAM Observed: 09/04/2018 Status: F Source: [facility] 2:46 PM [facility] REPOSITORY [facility] Cardiovascular Services [address] [place] [address] 12 Lead EKG 09/02/18 0440 MR#: [id number] Acct: [id number] Name: HUDSON CLAYTON Rep #: [id number] : 1990 28 From: Matty Thompson MD Attending Dr: Shasta Cueto Status: DIS IN Ordering Dr: Matty Marcos MD Date: 09/02/18 Location: MS3 Sex: M C Admitted: 08/28/18 Test Reason : CP Blood Pressure : / mmHG Vent. Rate : 055 BPM Atrial Rate : 055 BPM P-R Int : 128 ms QRS Dur : 096 ms QT Int : 460 ms P-R-T Axes : 031 -26 011 degrees QTc Int : 440 ms Sinus bradycardia with sinus arrhythmia Leftward axis Poor R wave progression Confirmed by JAY ANDRADE, MATTY ([id number]), magazine editor ORESTES GAR ([id number]) on 09/04/2018 2:45:56 PM Referred By: DIANNE Confirmed By:MATTY THOMPSON MD 09/04/18 1445 Date Matty Thompson MD CC: RAMAN Wren; Shasta Cueto; Matty Marcos MD Signed BASIC METABOLIC Collected: 09/04/2018 Status: F Source: [facility]SELL PROFILE (BMP) 1:45 PM [facility] REPOSITORY Order Comment: PT IN PROCEDURE [facility] SPOKE WITH YONI ARIAS TYPE CODE TESTS RESULT OUT OF RANGE REFERENCE UNITS LAB L501.0100 74-106 mg/dL Normal GLU 75 Result Comment: Please note revised GLUCOSE reference range effective 2017. LAB L501.1000 7-18 mg/dL Normal BUN 10 LAB L501.1100 0.70-1.30 mg/dL Normal CREAT,SERUM 0.80 Result Comment: The validity of the calculated GFR AND GFRAA in patients over 70 years has not been determined. Clinical correlation is essential. LAB L501.1110 >60 mL/min Normal EST GFR 122 Result Comment: Non- GFR Calc LAB L501.1115 >60 mL/min Normal EST GFR - AA 148 Result Comment: GFR Calc LAB L501.1255 ml/min Normal Estimated CRCL 150.89 LAB L501.1300 10-20 RATIO BUN/CRE Normal 12.5 LAB L501.2200 8.5-10 mg/dL Low .1 CA 8.4 LAB L501.5300 136-14 mmol/L 5 NA Normal 140 LAB L501.5600 3.5-5. mmol/L Low 1 K 3.4 LAB L501.5900 98-107 mmol/L CL Normal 107 LAB L501.6100 21.0-3 mmol/L 2.0 CO2 Normal 26.0 LAB L501.6200 5-15 GAP Normal 7 Performed By: #### L500.2500, L501.5200 #### [facility] [address] [place], [address] MAGNESIUM Collected: 09/04/2018 Status: F Source: [facility] 1:45 PM [facility] REPOSITORY Order Comment: PT IN PROCEDURE FW SPOKE WITH YONI ARIAS TYPE CODE TESTS RESULT OUT OF RANGE REFERENCE UNITS LAB L501.5200 1.6-2.6 mg/dL Normal MG 2.0 Performed By: #### L500.2500, L501.5200 #### [facility] [address] [place], [address] PROTHROMBIN TIME W/INR Collected: 09/04/2018 Status: F Source: [place] 8:58 AM [facility] REPOSITORY TYPE CODE TESTS RESULT OUT OF RANGE REFERENCE UNITS LAB L300.4150 11.7-14.9 SECONDS High PROTIME 15.1 LAB L300.4200 Normal INR 1.2 Performed By: #### L300.3900, L300.4310 #### [facility] [address] [place], [address] PARTIAL THROMBOPLAST Collected: 09/04/2018 Status: F Source: [place] TIME 8:58 AM [facility] REPOSITORY TYPE CODE TESTS RESULT OUT OF RANGE REFERENCE UNITS LAB L300.4310 24.1-36.2 Seconds Normal PTT 30.0 Performed By: #### L300.3900, L300.4310 #### [facility] [address] [place], [address] CT GUIDANCE ABSCESS Observed: 09/04/2018 Status: F Source: [place] DRG W/CATH 7:53 AM [facility] REPOSITORY [facility] Imaging Services [address] [place] [address] CT Guidance Abscess Drg w/Cath MR#: [id number] Acct: [id number] Name: HUDSON CLAYTON Rep #: [id number] : 1990 M 28 From: Chaka Burciaga MD PCP: RAMAN Mendes Status: ADM IN Study: CT Guidance Abscess Drg w/Cath Date of Exam: 09/04/18 Exam# [id number] Ordering Dr: Shasta Cueto PROCEDURE: CT DIRECTED ABSCESS DRAINAGE, PERITONEAL DATE OF EXAMINATION: August 31, 2018. INDICATION: Male, 28 years old. Possible focal abscess in the pelvis. PHYSICIAN: Chaka Burciaga M.D. CONSENT: Written informed consent was obtained having explained the risks, benefits and alternatives in detail with the patient who accepted the risks and agreed to proceed. Laboratory review and clinical assessment was performed. CONSCIOUS SEDATION PROTOCOL: The Drugs used were: 3 mg Versed, IV., and 75 mg Fentanyl, IV. The sedation time was: 25 minutes. Conscious sedation was started at 12:08 PM and terminate at 12:33 PM. The conscious sedation protocol was independently monitored. RADIATION DOSAGE (If Supplied By Facility): CTDIvol = ( 16 ) mGy, DLP = ( 587.53 ) mGycm TECHNIQUE: CT sections were made through the abdomen and pelvis revealing an abscess in the mid pelvis. The skin surface was prepped and draped in a sterile fashion. Puncture of this collection was performed utilizing an 18-gauge Chiba needle. No fluid was aspirated. This may represent a phlegmon rather than an abscess at this time. Follow-up is recommended. CT/CT Guidance Abscess Drg w/Cath IMPRESSION: 1. CT directed drainage of a fluid collection using CT image guidance and image documentation as described. 2. Conscious Sedation protocol utilized with independent monitoring Electronically Signed: Chaka Burciaga MD at 13:40 EST Tel [phone], Service support , CC: RAMAN Wren; Shasta Cueto Barrel Raiser: Signed HISTORY AND PHYSICAL Observed: 09/04/2018 Status: F Source: [place] EXAM 3:01 AM [facility] REPOSITORY [facility] Medical Records Department [address] [place] [address] History and Physical 09/04/18 0245 MR#: [id number] Acct: [id number] Name: HUDSON CLAYTON Rep #: [id number] : 1990 28 From: Vika Finch DO PCP: RAMAN Mendes Status: ADM IN Y Location: DC3 AH988-7 Problem List (1) Colonic diverticular abscess Status: Acute (2) Hypokalemia Status: Acute (3) Tobacco dependence Status: Chronic (4) GERD (gastroesophageal reflux disease) Status: Chronic (5) Obesity Status: Chronic Qualifiers: Body mass index: BMI 33.0-33.9 (6) IBS (irritable bowel syndrome) Status: Chronic (7) Hemorrhoids Status: Chronic (8) Diverticulitis Status: Acute (9) PTSD (post-traumatic stress disorder) Status: Chronic (10) Bipolar disorder Status: Chronic History of Present Illness Date of Admission: 09/04/18 Chief Complaint: abdominal pain associated with nausea and vomiting The patient is a 28 year old M with a past medical history of bipolar disorder, ADHD, obesity, tobacco dependence and GERD who was recently an inpatient at [facility] from 08/28/2018 until 09/02/2018. He was admitted and treated for acute sepsis secondary to acute sigmoid diverticulitis with microperforation. He was discharged home on Cipro, Flagyl, Phenergan, Motrin and Tylenol for pain. He returned to the emergency department at [facility] on 09/04/2018 complaining of increasing abdominal pain associated with nausea and bilious emesis. Vital signs at presentation to the emergency room were temp 97.6, pulse rate 68, pressure 155/113, respiratory rate 17 and he was 96-99% saturated on room air. Lab included an unremarkable CBC and a low potassium of 3.2. CT scan of the abd and pelvis showed acute sigmoid diverticulitis with a 4 cm x 3 cm abscess located in between loops of large bowel in the midline just above the urinary bladder. This is a new finding since 08/28/2018. He is being readmitted to the hospital and will obtain a consult with general surgery. I suspect they will recommend percutaneous drainage by interventional radiology. 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 Allergies dextromethorphan HBr [From NyQuil] Allergy (Verified 09/04/18 00:14) Anaphylaxis doxylamine [From NyQuil] Allergy (Verified 09/04/18 00:14) Anaphylaxis poison dennise extract [Poison Dennise Extract] Allergy (Verified 09/04/18 00:14) Anaphylaxis pseudoephedrine HCl [From NyQuil] Allergy (Verified 09/04/18 00:14) Anaphylaxis venom-honey bee [bee venom (honey bee)] Allergy (Verified 09/04/18 00:14) Anaphylaxis MUSHROOMS Allergy (Uncoded 09/04/18 00:14) Anaphylaxis Home Medications: Ambulatory Orders Medication Instructions Recorded Calcium Carbonate [Tums] 1,000 mg PO PRN PRN 08/28/18 Acetaminophen [Tylenol Extra 1,000 mg PO Q8H PRN #0 09/02/18 Surgical History: no surgical history, - - testicular surgery on cyst--nonresectable., left foot Psychiatric History: Bipolar, Post traumatic stress Lives: Spouse/ Significant Other Smoking Status: Current every day smoker Tobacco Use: Cigarettes Alcohol: None Drugs: None - *Family History Paternal History Items: Heart Disease, - - murdered Maternal History Items: No pertinent history Review of Systems Constitutional: Reports: Chills. Denies: Fever, Weight Change HEENT: Denies: Head Aches, Sinus Congestion, Sinus Drainage Cardiovascular: Denies: Chest Pain, Palpitations Respiratory: Denies: Cough, Shortness of breath at rest, Sputum production Gastrointestinal: Reports: Abdominal Pain, Nausea, Vomiting Genitourinary: Denies: Dysuria Musculoskeletal: Denies: Joint Pain, Joint Tenderness Skin: Denies: Jaundice, Rash, Wounds Neurological: Denies: Numbness, Tingling, Focal weakness Psychiatric: Reports: Anxiety. Denies: Depression, Homicidal Ideations, Suicidal Ideations Hematologic/ Lymphatic: Denies: Easy Bruising, Easy Bleeding, Hx of blood clot VTE Information - Inpt Only VTE Present on Admission: No VTE Mechan Device Prophylaxis: SCD's VTE Pharm Prophylaxis ordered?: Yes Patient Problems: Active and Suspected Problems (Last Updated 08/28/18 @ 21:47 by Roxi Weiss MD) Colonic diverticular abscess (Acute) Hypokalemia (Acute) - Physical Exam General: Alert, Oriented x3, Cooperative, - - appears to be in pain HEENT: Atraumatic, PERRLA, EOMI, Normocephalic Oral: Dry Mucosa, - - poor dentition Neck: Supple, No JVD, Negative Carotid Bruits, Trachea Midline Lungs: Clear to auscultation, Normal air movement, No rhonchi, No wheeze, No rales, - - he is not taking a deep breath due to increased abdominal pain with a deep breath......bu the lungs are CTA Cardiovascular: Regular rate, Regular Rhythm, Normal S1, Normal S2, No murmurs, No rub noted, No Gallop Abdomen: Soft, Hypoactive Bowel Sounds, Tender - steve in the lower quadrants. + guarding with palpation, no masses and no rebound Extremities: No clubbing, No cyanosis, No edema, Capillary Refill Less than 3 Seconds Skin: No rashes, No breakdown Musculoskeletal: No Tenderness to Palpation of Joints or Extremities Neurological: Cranial nerves II-XII grossly intact, Neuro grossly intact Psych/Mental Status: Appropriate, Anxious Vital Signs Temp Pulse Resp BP Pulse Ox 97.6 F L 50 L 16 158/99 H 95 09/04/18 00:09 09/04/18 02:29 09/04/18 02:29 09/04/18 02:29 09/04/18 02:29 Oxygen Delivery Method Room Air Weight: 247 lb 5.738 oz Body Mass Index (BMI) 33.5 Laboratory Tests Past 24 Hrs WBC 8.1 RBC 4.84 Hgb 13.9 Hct 41.1 MCV 84.9 MCH 28.7 Assessment/Plan All Active Problems (Last Updated 08/28/18 @ 21:47 by Roxi Weiss MD) Diverticulitis (Acute) Colonic diverticular abscess (Acute) Hypokalemia (Acute) Impressions 1. Colonic diverticular abscess 2. Diverticulitis 3. Bipolar disorder 4. Posttraumatic stress disorder 5. Tobacco abuse 6. Hypokalemia Keep the patient n.p.o. tonight because of nausea/vomiting and possibility of percutaneous drainage in the a.m. by Dr. Burciaga Consult [place] [facility] surgery to participate in management and for recommendations Continue Cipro and metronidazole intravenously Pain medication has been ordered Protonix 40 mg IV daily for GI prophylaxis SCDs for DVT prophylaxis-hold Lovenox until we determine if he is to have a percutaneous drainage of the abscess today in radiology Tobacco cessation advised and also weight loss hydrate and supplement potassium recheck a BMP and mag at 1300 today Code Visit Inpatient E AND M: 14221 Init Hosp L3 09/04/18 0301 <Electronically signed by Vika Finch DO> Date [facility] Finch [facility] Signature: Date (if applicable) CC: RAMAN Wren; Sonam Finch; Roxi Weiss MD Signed EMERGENCY DEPARTMENT Observed: 09/04/2018 Status: F Source: [facility] SUMMARY 2:50 AM [facility] REPOSITORY [facility] Medical Records Department [address] [place] [address] Emergency Department Summary 09/04/18 0208 MR#: [id number] Acct: [id number] Name: HUDSON CLAYTON Rep #: [id number] : 1990 28 From: Kulwinder Shukla MD PCP: RAMAN Mendes Status: ADM IN - ER Visit Summary Date of Service: 09/04/18 Chief Complaint: Abdominal pain History of Present Illness: The patient is a 28 M who was recently admitted for diverticulitis. He is on Cipro and Flagyl. He went home and then had increasing pain in his lower abdomen. He has been taking his antibiotics and is taking Motrin, but this was not helping with the pain. No other associated symptoms. Physical Examination: Afebrile and vital signs unremarkable. Patient is tearful and appears very uncomfortable. Abdomen is tender in the lower hemiabdomen. No guarding or rebound. Heart regular. Lungs clear. Skin appears normal. Test Results: Labs are all fairly unremarkable. His CT shows diverticulitis with a new abscess measuring 4 cm x 3 cm. Emergency Department Course and Treatment: Patient received fluids, Dilaudid, and Zofran on arrival. I did check labs and repeated his CAT scan. CT shows a new abscess formation. Will contact the hospitalist for admission for further care. The patient did have his antibiotics this evening already. He received an additional dose of Dilaudid. I spoke with Dr. Rosales. Typically this can be treated percutaneously. He advised that his partners that previously saw the patient can evaluate him tomorrow. Treatment Plan: As above Disposition: Admission Impression: 1. Diverticular abscess This note was generated with [employer] dictation software. It may contain incorrect words, spelling, and punctuation that were not noted in review of the chart prior to signing ED Disposition - Plan for ED Patient: Chief Complaint: Abd Pain Referrals: Berna Wren NP-C [Primary Care Provider] - What to do if you have Problems For any increased pain, shortness of breath, bleeding, nausea or vomiting, chest pain, or any unexpected problems, contact your Primary Care Provider. Call [facility] ([phone]) or report to the closest Emergency Room. Call 911 if necessary. 09/04/18 0250 <Electronically signed by Kulwinder Shukla MD> Date Kulwinder Shukla MD Cosigner Signature (If Indicated): Date CC: RAMAN Wren CBC W/DIFF, AUTOMATED Collected: 09/04/2018 Status: F Source: [place] 12:34 AM [facility] REPOSITORY TYPE CODE TESTS RESULT OUT OF RANGE REFERENCE UNITS LAB L100.1000 4.4-11.0 K/mm3 Normal WBC 8.1 LAB L100.1200 4.6-6.2 M/mm3 Normal RBC 4.84 LAB L100.1300 13.0-16.5 g/dl Normal HGB 13.9 LAB L100.1400 40-54 % Normal HCT 41.1 LAB L100.1500 80-94 fL Normal MCV 84.9 LAB L100.1600 27.0-32.0 pg Normal MCH 28.7 LAB L100.1700 32-36 g/gl Normal MCHC 33.8 LAB L100.1810 11.6-14.6 % Normal RDW CV 13.4 LAB L100.1820 35.1-43.9 fl Normal RDW SD 41.4 LAB L100.1900 150-450 K/mm3 Normal PLT 315 LAB L100.2000 6.2-12.0 fl Normal MPV 10.5 LAB L100.2100 47-70 % Normal NEUT% 67.0 LAB L100.2200 19-41 % Low LY% 18.2 LAB L100.2300 0-10 % Normal MONO% 7.3 LAB L100.2400 0-5 % High EO% 6.9 LAB L100.2500 0-1 % Normal BASO% 0.2 LAB L100.2550 0.0-0.9 % Normal IM GRAN % 0.400 Result Comment: IG% - Immature Granulocytes (promyelocytes, myelocytes and metamyelocytes) > 1% indicates that a LEFT SHIFT is Present. LAB L100.2620 2.0-7.7 X10 3/uL Normal Absolute Neut 5.4 LAB L100.2720 0.83-4.51 X10 3/ul Normal Absolute Lymph 1.48 Performed By: #### L100.0100 #### [facility] [address] [place], [address] COMPREHENSIVE METABOLIC Collected: 09/04/2018 Status: F Source: [facility] 12:34 AM [facility] REPOSIT[facility] TYPE CODE TESTS RESULT OUT OF RANGE REFERENCE UNITS LAB L501.0100 74-106 mg/dL Normal GLU 87 Result Comment: Please note revised GLUCOSE reference range effective 2017. LAB L501.1000 7-18 mg/dL Normal BUN 9 LAB L501.1100 0.70-1.30 mg/dL Normal CREAT,SERUM 0.94 Result Comment: The validity of the calculated GFR AND GFRAA in patients over 70 years has not been determined. Clinical correlation is essential. LAB L501.1110 >60 mL/min Normal EST GFR 101 Result Comment: Non- GFR Calc LAB L501.1115 >60 mL/min Normal EST GFR - AA 122 Result Comment: GFR Calc LAB L501.1255 ml/min Normal Estimated CRCL 128.42 LAB L501.1300 10-20 RATIO Low BUN/CRE 9.6 LAB L501.1500 6.4-8. g/dL 2 T PROT Normal 7.9 LAB L501.1800 3.2-5. g/dL 0 ALB Normal 3.4 LAB L501.1950 2.2-4. g/dL High 2 GLOB 4.5 LAB L501.2000 0.9-2. RATIO Low 4 A/G 0.8 LAB L501.2200 8.5-10 mg/dL .1 CA Normal 8.8 LAB L501.4100 15-37 U/L AST Normal 19 LAB L501.4305 45-117 U/L ALK P Normal 64 LAB L501.4405 16-61 U/L ALT Normal 29 LAB L501.4600 0.20-1 mg/dL .00 T BILI Normal 0.70 LAB L501.5300 136-14 mmol/L 5 NA Normal 139 LAB L501.5600 3.5-5. mmol/L Low 1 K 3.2 LAB L501.5900 98-107 mmol/L CL Normal 104 LAB L501.6100 21.0-3 mmol/L 2.0 CO2 Normal 25.0 LAB L501.6200 5-15 GAP Normal 10 Performed By: #### L500.4050, L501.2450 #### [facility] [address] [place], [place], [address] LIPASE Collected: 09/04/2018 Status: F Source: [place] 12:34 AM [facility] REPOSITORY TYPE CODE TESTS RESULT OUT OF RANGE REFERENCE UNITS LAB L501.2450 73-393 U/L Normal LIPASE 161 Performed By: #### L500.4050, L501.2450 #### [facility] [address] [place], [address] ABDOMEN/PELVIS W IV CONT Observed: 09/04/2018 Status: F Source: [place] ONLY 12:16 AM [facility] REPOSITORY [facility] Imaging Services [address] [place] [address] Abdomen/Pelvis W IV Cont ONLY MR#: [id number] Acct: [id number] Name: HUDSON CLAYTON Rep #: [id number] : 1990 M 28 From: Renny Girard MD PCP: RAMAN Mendes Status: REG ER Study: Abdomen/Pelvis W IV Cont ONLY Date of Exam: 09/04/18 Exam# [id number] Ordering Dr: Kulwinder Shukla MD STUDY: CT ABDOMEN AND PELVIS WITH CONTRAST REASON FOR EXAM: Male, 28 years old. Abdominal pain. History of diverticulitis RADIATION DOSAGE (If Supplied By Facility): CTDIvol = ( 20.00 ) mGy, DLP = ( 1372.80 ) mGycm TECHNIQUE: Transaxial images were obtained from the dome of the diaphragm to the symphysis pubis without oral contrast. 100ML ml of Isovue 300 contrast was administered. Sagittal and coronal images were reconstructed. Individualized dose optimization techniques were used for this CT. COMPARISON: August 28, 2018 FINDINGS: There is a small right-sided pleural effusion. The liver is normal. No dilated intrahepatic biliary radicles. The gallbladder is normal with no calcifications within it. There is no pericholecystic fluid collection or streakiness The spleen is normal. The pancreas is normal. Both adrenals are normal. The kidneys are normal with no masses, calculi or hydronephrosis The stomach is normal. There is no acute appendicitis. There is sigmoid diverticulitis with a 4 x 3 cm abscess formation in between loops of large bowel just superior to the urinary bladder. The abscess formation was not present in the last examination of August 28, 2018 The abdominal wall is intact with no hernias. There is no ascites or any free intraperitoneal air. No indication of epiploic appendagitis The vascular structures in the retroperitoneum are normal. There is no retrocrural, retroperitoneal or mesenteric adenopathy. The bones and joints are normal. The urinary bladder is normal.--The prostate is normal. There is no inguinal or pelvic adenopathy. There is no inguinal hernia. . CT/Abdomen/Pelvis W IV Cont ONLY IMPRESSION: Acute sigmoid diverticulitis with a 4 x 3 cm abscess formation in between loops of large bowel in the midline just above the urinary bladder. This was not present in the last examination of August 28, 2000 8T Electronically Signed: Renny Girard MD at 1:50 EST Tel , Service support , CC: RAMAN Wren; Kulwinder Shukla MD Barrel Raiser: Signed DISCHARGE SUMMARY Observed: 09/02/2018 Status: F Source: [facility] 2:41 PM [facility] REPOSITORY [facility] Medical Records Department [address] [place] [address] Discharge Summary 09/02/18 1434 MR#: [id number] Acct: [id number] Name: HUDSON CLAYTON Rep #: [id number] : 1990 28 From: Shasta Cueto PCP: RAMAN Mendes Status: ADM IN Location: [place] [id number] Discharge Date and Diagnosis - Problem List Patient Problems: Active and Suspected Problems (Last Updated 08/28/18 @ 21:47 by Roxi Weiss MD) Diverticulitis (Acute) Date of Admission: 08/28/18 Date of Discharge: 09/02/18 - Primary Discharge Diagnosis Active and Suspected Problems (Last Updated 08/28/18 @ 21:47 by Roxi Weiss MD) (1) Acute Sepsis secondary to Acute Sigmoid Diverticulitis w/ Microperforation (2) Hypokalemia (3) Chest Pain, Atypical, Suspect secondary to Anxiety (4) Tobacco Abuse (5) Obesity (6) GERD (7) Bipolar disorder, ADHD, Explosive disorder, Not on treatment - Secondary Discharge Diagnosis Chronic Problems (Last Updated 08/28/18 @ 21:47 by Roxi Weiss MD) IBS (irritable bowel syndrome) (Chronic) Hemorrhoids (Chronic) PTSD (post-traumatic stress disorder) (Chronic) Bipolar disorder (Chronic) Hospital Course and Treatment Dr. Weiss Surgery Operations: None Procedures: EKG Summary of Care Provided: The patient is a 28 y/o M w/ PMHx: Obesity, Tobacco use, GERD who presented to the [facility] ED on 08/28/18 with onset acute abdominal pain. CT A/P w/ evidence of acute diverticulitis of the sigmoid colon with microperforation but no well-defined abscess. Admission CBC w/ WBC 17.8 with left shift-->08/30/18 CBC w/ WBC 9.4 with improved shift. Admitted to DC, maintained on aggressive hydration, monitor I AND Os, maintained NPO status w/ bowel rest initially, attempted transitioned to Fulls however nausea and emesis diet de-escalated to clears per Surgery. Patient noted onset worsened GI upset with zosyn administration therefore 09/01-->09/02 transitioned to cipro and flagyl regimen. Notable anxiety with his abx therapies, transitioned to oral abx therapy given WBC improved and no shift, afebrile to see if potentially better toleration, additionally ordered his Full Liquids for him to remove stress of choosing, continued PPI, anti-emetics, pain regimen PRN. Given improvement w/ these changes and patient intense preference discharge to home arranged per discussions with Surgery as well. During admission, patient has atypical chest pain felt secondary to anxiety, EKG unremarkable and enzyme normal. Upon discharge per discussion with Surgery, continued 10 day total course of cipro and flagyl (5 additional days) in addition to protonix. Encouraged follow-up with primary care within 3-5 days. Additionally, given untreated patient psychiatric disease, patient set-up with his therapist to be re-evaluated. Patient Problems: Active and Suspected Problems (Last Updated 08/28/18 @ 21:47 by Roxi Weiss MD) Diverticulitis (Acute) - Physical Exam Vital Signs Temp Pulse Resp BP Pulse Ox 98.4 F 71 16 158/113 H 97 09/02/18 14:27 12/04/18 14:27 09/02/18 14:27 09/02/18 14:27 09/02/18 14:27 Oxygen Delivery Method Room Air Weight: 258 lb 6.108 oz Body Mass Index (BMI) 34.9 Intake and Output for Last 24 Hours Laboratory Tests Past 24 Hrs Sodium 143 Potassium 3.1 L Chloride 107 Carbon Dioxide 27.0 Anion Gap 9 BUN 6 L Creatinine 0.87 Discharge Activity: - - Avoid aggressive activity until re- evaluation per Dr. Weiss. Call your doctor if you observe: Fever of 101 or Higher, Inability to urinate, Inability to have a bowel movement, Shortness of breath, Dizziness, Fainting spells, Chest pain, Uncontrolled pain Home Medications: Medications to take at Discharge Calcium Carbonate [Tums] 1,000 mg PO PRN PRN 08/28/18 Acetaminophen [Tylenol Extra Strength] 1,000 mg PO Q8H PRN #0 09/02/18 Ciprofloxacin [Cipro] 500 mg PO BID #10 tablet 09/02/18 Ibuprofen [Motrin] 400 - 800 mg PO Q6H PRN PRN tablet 09/02/18 Metronidazole [Flagyl] 500 mg PO TIDCM #15 tablet 09/02/18 Pantoprazole Sodium [Protonix] 20 mg PO BID #60 tablet 09/02/18 proMETHazine tablet [Phenergan tablet] 25 mg PO Q6H PRN PRN #20 tablet 09/02/18 Following Prescrptions Were Given to Patient: proMETHazine tablet [Phenergan tablet] 25 mg PO Q6H PRN PRN #20 tablet PRN Reason: nausea, emesis Ciprofloxacin [Cipro] 500 mg PO BID #10 tablet Pantoprazole Sodium [Protonix] 20 mg PO BID #60 tablet Metronidazole [Flagyl] 500 mg PO TIDCM #15 tablet Primary Care Physician: Berna Wren NP-C [Primary Care Provider] - Please follow up with your Primary Care Physician in: Follow- up within 3-5 days to review admission. Please Follow Up With: Roxi Weiss MD When: Follow-up 1 week. Patient Instructions: Understanding Diverticulosis and Diverticulitis, Discharge Instructions for Diverticulitis, Discharge Instructions: Eating a Full Liquid Diet Disposition: Home Minutes spent on discharge:: 35 Patient Condition:: Fair Medical Necessity - Tobacco Use Smoking Status: Light Smoker (<10/day) Tobacco Use: Cigarettes Meaningful Use Info Meaningful Use Diagnoses (Choose all that apply): None applicable Code Visit Inpatient E AND M: 04429 Disch Hosp 09/02/18 1441 <Electronically signed by Shasta Cueto > Date Shasta Cueto Cosigner Signature (if applicable): Date CC: RAMAN Wren; Shasta Cueto Signed DISCHARGE INSTRUCTION Observed: 09/02/2018 Status: F Source: RUSSELL 2:19 PM [facility] REPOSITORY [facility] Medical Records Department [address] [place] [address] Instructions for Home/Discharge Instructions 09/02/18 1412 MR#: [id number] Acct: [id number] Name: HUDSON CLAYTON Rep #: [id number] : 1990 28 From: Shasta Cueto PCP: RAMAN Mendes Status: ADM IN - Discharge Diagnoses Current Active Problems: Current Active and Chronic Problems (Last Updated 08/28/18 @ 21:47 by Roxi Weiss MD) (1) Acute Sepsis secondary to Acute Sigmoid Diverticulitis w/ Microperforation (2) Hypokalemia (3) Chest Pain, Atypical, Suspect secondary to Anxiety (4) Tobacco Abuse (5) Obesity (6) GERD (7) Bipolar disorder, ADHD, Explosive disorder, PTSD You will use the following diet at home:: Full liquid - Please limit your diet to clear and full liquids over the next week to assure continued improvement until re-assessment per Dr. Weiss. Your food should be the consistency of: Regular Your liquids should be the consistency of: Regular/Thin Discharge Activity: - - Avoid aggressive activity until re- evaluation per Dr. Weiss. Call your doctor if you observe: Fever of 101 or Higher, Inability to urinate, Inability to have a bowel movement, Shortness of breath, Dizziness, Fainting spells, Chest pain, Uncontrolled pain Instructions: Understanding Diverticulosis and Diverticulitis, Discharge Instructions for Diverticulitis, Discharge Instructions: Eating a Full Liquid Diet Allergies/Adverse Reactions: Allergies dextromethorphan HBr [From NyQuil] Allergy (Verified 08/18/17 14:25) Anaphylaxis doxylamine [From NyQuil] Allergy (Verified 08/18/17 14:25) Anaphylaxis poison dennise extract [Poison Dennise Extract] Allergy (Verified 08/18/17 14:25) Anaphylaxis pseudoephedrine HCl [From NyQuil] Allergy (Verified 08/18/17 14:25) Anaphylaxis venom-honey bee [bee venom (honey bee)] Allergy (Verified 08/18/17 14:25) Anaphylaxis MUSHROOMS Allergy (Uncoded 08/18/17 14:25) Anaphylaxis Medications to take at Discharge Calcium Carbonate [Tums] 1,000 mg PO PRN PRN 18 Acetaminophen [Tylenol Extra Strength] 1,000 mg PO Q8H PRN #0 09/02/18 Ciprofloxacin [Cipro] 500 mg PO BID #10 tablet 09/02/18 Ibuprofen [Motrin] 400 - 800 mg PO Q6H PRN PRN tablet 09/02/18 Metronidazole [Flagyl] 500 mg PO TIDCM #15 tablet 09/02/18 Pantoprazole Sodium [Protonix] 20 mg PO BID #60 tablet 09/02/18 proMETHazine tablet [Phenergan tablet] 25 mg PO Q6H PRN PRN #20 tablet 09/02/18 The following prescriptions were given: proMETHazine tablet [Phenergan tablet] 25 mg PO Q6H PRN PRN #20 tablet PRN Reason: nausea, emesis Ciprofloxacin [Cipro] 500 mg PO BID #10 tablet Pantoprazole Sodium [Protonix] 20 mg PO BID #60 tablet Metronidazole [Flagyl] 500 mg PO TIDCM #15 tablet Primary Care Physician: Berna Wren NP-C [Primary Care Provider] - Please follow up with your Primary Care Physician in: Follow- up within 3-5 days to review admission. Test Results: Test results from this visit will be discussed in further detail at your follow-up appointment, if applicable. Please Follow Up With: Roxi Weiss MD When: Follow-up 1 week. Proposed Discharge Date: 09/02/18 09/02/18 1419 <Electronically signed by Shasta Cueto > Date Shasta Cueto CC: CARE NAVIGATOR-C Berna Wren; Roxi Weiss MD BASIC METABOLIC Collected: 09/02/2018 Status: F Source: NISREEN PROFILE (BMP) 5:02 AM [facility] REPOSITORY TYPE CODE TESTS RESULT OUT OF RANGE REFERENCE UNITS LAB L501.0100 74-106 mg/dL Normal GLU 84 Result Comment: Please note revised GLUCOSE reference range effective 2017. LAB L501.1000 7-18 mg/dL Low BUN 6 LAB L501.1100 0.70-1.30 mg/dL Normal CREAT,SERUM 0.87 Result Comment: The validity of the calculated GFR AND GFRAA in patients over 70 years has not been determined. Clinical correlation is essential. LAB L501.1110 >60 mL/min Normal EST GFR 110 Result Comment: Non- GFR Calc LAB L501.1115 >60 mL/min Normal EST GFR - AA 133 Result Comment: GFR Calc LAB L501.1255 ml/min Normal Estimated CRCL 138.75 LAB L501.1300 10-20 RATIO Low BUN/CRE 6.9 LAB L501.2200 8.5-10 mg/dL Low .1 CA 8.3 LAB L501.5300 136-14 mmol/L 5 NA Normal 143 LAB L501.5600 3.5-5. mmol/L Low 1 K 3.1 LAB L501.5900 98-107 mmol/L CL Normal 107 LAB L501.6100 21.0-3 mmol/L 2.0 CO2 Normal 27.0 LAB L501.6200 5-15 GAP Normal 9 Performed By: #### L500.2500, L501.4010 #### [facility] [address] [place], [place], [address] TROPONIN-I Collected: 09/02/2018 Status: F Source: NISREEN 5:02 AM [facility] REPOSITORY TYPE CODE TESTS RESULT OUT OF RANGE REFERENCE UNITS LAB L501.4010 <0.045 ng/mL Normal < 0.015 TROPONIN-I Result Comment: TROPONIN-I EXPECTED VALUES <0.045 Negative 0.045 - 0.590 Consistent with Cardiac Damage > OR = 0.600 Critical Value Not every elevated troponin is indicative of KS. These values should be used with clinical judgement in examining the patient's clinical picture for diagnosis. To establish a diagnosis of KS versus myocardial injury, there must be a demonstrated rise and/or fall in the troponin values, in addition to ischemic symptoms, EKG changes, new regional wall motion abnormality, and/or angiographical evidence. PLEASE NOTE: REFERENCE RANGES EDITED 18 Performed By: #### L500.2500, L501.4010 #### [facility] [address] [place], [address] MAGNESIUM Collected: 09/02/2018 Status: F Source: NISREEN 5:02 AM [facility] REPOSITORY TYPE CODE TESTS RESULT OUT OF RANGE REFERENCE UNITS LAB L501.5200 1.6-2.6 mg/dL Normal MG 1.9 Performed By: #### L501.5200 #### [facility] [address] [place], [address] BASIC METABOLIC Collected: 09/01/2018 Status: F Source: NISREEN PROFILE (BMP) 6:38 AM [facility] REPOSITORY TYPE CODE TESTS RESULT OUT OF RANGE REFERENCE UNITS LAB L501.0100 74-106 mg/dL Low GLU 70 Result Comment: Please note revised GLUCOSE reference range effective 2017. LAB L501.1000 7-18 mg/dL Normal BUN 7 LAB L501.1100 0.70-1.30 mg/dL Normal CREAT,SERUM 0.95 Result Comment: The validity of the calculated GFR AND GFRAA in patients over 70 years has not been determined. Clinical correlation is essential. LAB L501.1110 >60 mL/min Normal EST GFR 100 Result Comment: Non- GFR Calc LAB L501.1115 >60 mL/min Normal EST GFR - AA 121 Result Comment: GFR Calc LAB L501.1255 ml/min Normal Estimated CRCL 127.06 LAB L501.1300 10-20 RATIO Low BUN/CRE 7.4 LAB L501.2200 8.5-10 mg/dL Low .1 CA 7.9 LAB L501.5300 136-14 mmol/L 5 NA Normal 141 LAB L501.5600 3.5-5. mmol/L Low 1 K 2.9 LAB L501.5900 98-107 mmol/L CL Normal 104 LAB L501.6100 21.0-3 mmol/L 2.0 CO2 Normal 26.0 LAB L501.6200 5-15 GAP Normal 11 Performed By: #### L500.2500 #### [facility] [address] [place], [address] CBC W/DIFF, AUTOMATED Collected: 08/30/2018 Status: F Source: RUSSELL 7:14 AM [facility] REPOSITORY TYPE CODE TESTS RESULT OUT OF RANGE REFERENCE UNITS LAB L100.1000 4.4-11.0 K/mm3 Normal WBC 9.4 LAB L100.1200 4.6-6.2 M/mm3 Low RBC 4.34 LAB L100.1300 13.0-16.5 g/dl Low HGB 12.8 LAB L100.1400 40-54 % Low HCT 38.9 LAB L100.1500 80-94 fL Normal MCV 89.6 LAB L100.1600 27.0-32.0 pg Normal MCH 29.5 LAB L100.1700 32-36 g/gl Normal MCHC 32.9 LAB L100.1810 11.6-14.6 % Normal RDW CV 13.5 LAB L100.1820 35.1-43.9 fl Normal RDW SD 43.8 LAB L100.1900 150-450 K/mm3 Normal PLT 176 LAB L100.2000 6.2-12.0 fl Normal MPV 11.3 LAB L100.2100 47-70 % High NEUT% 85.0 LAB L100.2200 19-41 % Low LY% 8.2 LAB L100.2300 0-10 % Normal MONO% 4.2 LAB L100.2400 0-5 % Normal EO% 2.4 LAB L100.2500 0-1 % Normal BASO% 0.1 LAB L100.2550 0.0-0.9 % Normal IM GRAN % 0.100 Result Comment: IG% - Immature Granulocytes (promyelocytes, myelocytes and metamyelocytes) > 1% indicates that a LEFT SHIFT is Present. LAB L100.2620 2.0-7.7 X10 3/uL High Absolute Neut 8.0 LAB L100.2720 0.83-4.51 X10 3/ul Low Absolute Lymph 0.77 Performed By: #### L100.0100 #### [facility] [address] [place], [address] CONSULTATION Observed: 08/29/2018 Status: F Source: RUSSELL 11:57 AM [facility] REPOSITORY [facility] Medical Records Department [address] [place] [address] Consultation 08/28/184 MR#: [id number] Acct: [id number] Name: HUDSON CLAYTON Rep #: [id number] : 1990 28 From: Roxi Weiss MD PCP: RAMAN Mendes Status: ADM IN Y Location: [address] Reason for Consult Date of Consultation: 08/28/18 History of Present Illness: The patient is a 28 year old M came to the ER due to lower abdominal pain patient rated at 20/10 when he first came in. Patient states the pain started this morning when he went to use the restroom at 1030. He states that he did have some weird feeling in his abdomen went to bed last night however it was not pain. Patient denies any fevers or chills. Had a CT abdomen pelvis was done which showed localized microperforation sigmoid diverticulitis and patient's white blood cell count was 17. Patient was given Zosyn 4.5 g IV x1 in the ER. As well as morphine and Dilaudid for pain. Patient's vital signs have remained stable just barely tachycardic occasionally. Patient states he is never had abdominal pain like this before. He does have past medical history significant for bipolar, PTSD however patient is not on any medications currently but is talking with a counselor about may be starting some in the future. I was consulted because the hospitalist states patient's pain was worse than previous. However patient last had pain meds morphine at 5 PM 4 mg and by 8:30 PM he was not due for any more pain meds as they were ordered every 4 hr. Pt is scheduled for a stat CT a/p due to increased pain. 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 Allergies dextromethorphan HBr [From NyQuil] Allergy (Verified 08/18/17 14:25) Anaphylaxis doxylamine [From NyQuil] Allergy (Verified 08/18/17 14:25) Anaphylaxis poison dennise extract [Poison Dennise Extract] Allergy (Verified 08/18/17 14:25) Anaphylaxis pseudoephedrine HCl [From NyQuil] Allergy (Verified 08/18/17 14:25) Anaphylaxis venom-honey bee [bee venom (honey bee)] Allergy (Verified 08/18/17 14:25) Anaphylaxis MUSHROOMS Allergy (Uncoded 08/18/17 14:25) Anaphylaxis Home Medications: Ambulatory Orders Medication Instructions Recorded Acetaminophen [Tylenol Extra 1,000 mg PO PRN PRN 08/28/18 Strength] Calcium Carbonate [Tums] 1,000 mg PO PRN PRN 08/28/18 Surgical History: - - testicular surgery on cyst--nonresectable., left foot Psychiatric History: Bipolar, Post traumatic stress Lives: Spouse/ Significant Other Smoking Status: Light Smoker (<10/day) Tobacco Use: Cigarettes Alcohol: None Drugs: None - *Family History Maternal History Items: No pertinent history Paternal History Items: Heart Disease, - - murdered Review of Systems Constitutional: Reports: Chills Eyes: Denies: Blurred vision HEENT: Denies: Difficulty Swallowing Cardiovascular: Denies: Chest Pain Respiratory: Denies: Shortness of Breath Gastrointestinal: Reports: Abdominal Pain Genitourinary: Denies: Dysuria Skin: Reports: Rash Neurological: Denies: Balance problems Psychiatric: Reports: Depression - hx bipolar- not on any meds currently Hematologic/ Lymphatic: Denies: Easy Bleeding Patient Problems: Active and Suspected Problems (Last Updated 08/28/18 @ 21:47 by Roxi Weiss MD) Diverticulitis (Acute) - Physical Exam General: Alert, Oriented x3, Cooperative HEENT: Atraumatic Lungs: Normal air movement Cardiovascular: Regular rate Abdomen: Soft, Non-Distended, Tender - Bilateral LQ, equivocal rebound, no involuntary guarding Extremities: No clubbing, No cyanosis, No edema Skin: No rashes Musculoskeletal: No Muscle Wasting Neurological: Cranial nerves II-XII grossly intact Psych/Mental Status: Appropriate Vital Signs Temp Pulse Resp BP Pulse Ox 98.2 F 94 16 134/77 H 97 08/28/18 20:00 08/28/18 20:00 08/28/18 20:00 08/28/18 20:00 08/28/18 20:00 Oxygen Delivery Method Room Air Weight: 258 lb 6.108 oz Body Mass Index (BMI) 34.9 Laboratory Tests Past 24 Hrs WBC RBC Hgb Hct MCV MCH MCHC RDW RDW Differential Assessment/Plan All Active Problems (Last Updated 08/28/18 @ 21:47 by Roxi Weiss MD) Diverticulitis (Acute) 28-year-old male with diverticulitis with microperforation 1. Continue n.p.o./IV fluids and strict I's and O's. Plan to continue to treat conservatively unless increased WBC/pain/etc. No plans to advance diet to clears until pain free/normal WBC, then will go slowly when advancement. 2. Continue Zosyn IV antibiotics 3. We will change morphine to Dilaudid for pain control and add some Toradol as long as his creatinine remains normal, we will try to keep caught up with the pain with pain meds. 4. My read of the CT abdomen pelvis looks about the same at this afternoon with just a couple of localized small air bubbles will await official read. Discussed with patient that if his pain did get worse/fevers he may need emergency surgery which would involve exploratory laparotomy possible bowel resection possible stoma. --addendum: official CT a/p read unchanged from previous-microperforation of sigmoid diverticulitis Roxi Weiss M.D. Pager: [phone] [facility] [address] [place] [address], [facility], [address] [place] [address] Office: [phone] Code Visit Inpatient Raine AND M: [id number] Init Hosp L2 08/29/18 1157 <Electronically signed by Roxi Weiss MD> Date Roxi Weiss MD Cosigner Signature (if applicable): Date CC: CARE NAVIGATOR-C Berna Wren; Roxi Weiss MD Signed CBC W/DIFF, AUTOMATED Collected: 08/29/2018 Status: F Source: NISREEN 5:34 AM [facility] REPOSITORY TYPE CODE TESTS RESULT OUT OF RANGE REFERENCE UNITS LAB L100.1000 4.4-11.0 K/mm3 High WBC 16.5 LAB L100.1200 4.6-6.2 M/mm3 Normal RBC 4.86 LAB L100.1300 13.0-16.5 g/dl Normal HGB 14.1 LAB L100.1400 40-54 % Normal HCT 42.9 LAB L100.1500 80-94 fL Normal MCV 88.3 LAB L100.1600 27.0-32.0 pg Normal MCH 29.0 LAB L100.1700 32-36 g/gl Normal MCHC 32.9 LAB L100.1810 11.6-14.6 % Normal RDW CV 13.7 LAB L100.1820 35.1-43.9 fl High RDW SD 44.4 LAB L100.1900 150-450 K/mm3 Normal PLT 200 LAB L100.2000 6.2-12.0 fl Normal MPV 10.9 LAB L100.2100 47-70 % High NEUT% 90.1 LAB L100.2200 19-41 % Low LY% 5.3 LAB L100.2300 0-10 % Normal MONO% 3.4 LAB L100.2400 0-5 % Normal EO% 0.9 LAB L100.2500 0-1 % Normal BASO% 0.1 LAB L100.2550 0.0-0.9 % Normal IM GRAN % 0.200 Result Comment: IG% - Immature Granulocytes (promyelocytes, myelocytes and metamyelocytes) > 1% indicates that a LEFT SHIFT is Present. LAB L100.2620 2.0-7.7 X10 3/uL High Absolute Neut 14.9 LAB L100.2720 0.83-4.51 X10 3/ul Normal Absolute Lymph 0.87 Performed By: #### L100.0100 #### [facility] [address] [facility] [place], [place], [address] BASIC METABOLIC Collected: 08/29/2018 Status: F Source: NISREEN PROFILE (BMP) 5:34 AM [facility] REPOSITORY TYPE CODE TESTS RESULT OUT OF RANGE REFERENCE UNITS LAB L501.0100 74-106 mg/dL Normal GLU 88 Result Comment: Please note revised GLUCOSE reference range effective 2017. LAB L501.1000 7-18 mg/dL Normal BUN 10 LAB L501.1100 0.70-1.30 mg/dL Normal CREAT,SERUM 0.91 Result Comment: The validity of the calculated GFR AND GFRAA in patients over 70 years has not been determined. Clinical correlation is essential. LAB L501.1110 >60 mL/min Normal EST GFR 105 Result Comment: Non- GFR Calc LAB L501.1115 >60 mL/min Normal EST GFR - AA 127 Result Comment: GFR Calc LAB L501.1255 ml/min Normal Estimated CRCL 132.65 LAB L501.1300 10-20 RATIO BUN/CRE Normal 11.0 LAB L501.2200 8.5-10 mg/dL Low .1 CA 8.3 LAB L501.5300 136-14 mmol/L 5 NA Normal 141 LAB L501.5600 3.5-5. mmol/L 1 K Normal 3.5 LAB L501.5900 98-107 mmol/L CL Normal 106 LAB L501.6100 21.0-3 mmol/L 2.0 CO2 Normal 25.0 LAB L501.6200 5-15 GAP Normal 10 Performed By: #### L500.2500 #### [facility] [address] [facility] [place], [place], [address] URINALYSIS, COMPLETE Collected: 08/29/2018 Status: F Source: NISREEN 12:25 AM [facility] REPOSITORY Order Comment: COLOR OF URINE MAY AFFECT DIPSTICK RESULTS. How was Urine Obtained? CLEAN CATCH TYPE CODE TESTS RESULT OUT OF RANGE REFERENCE UNITS LAB L400.3000 Yellow COLOR Normal Brittani LAB L400.3050 Clear Normal CLARITY Clear LAB L400.3200 Normal mg/dl Normal GLUCOSE, UR Normal LAB L400.3300 Negative mg/dL Normal BILIRUBIN URINE Negative LAB L400.3400 Negative mg/dl High 5 KETONE UR LAB L400.3465 1.002-1.030 Normal SP.GR. DIPSTX 1.010 LAB L400.3550 5.0 - 8.0 pH UR Normal 6.5 LAB L400.3600 Negative mg/dl High PROT 30 DIPSTX LAB L400.3700 Normal mg/dl Normal UROBILI Normal LAB L400.3750 Negative Normal NITRITE UR Negative LAB L400.3780 Negative /ul High 10 OCCULT BLOOD-UR LAB L400.3800 Negative /ul High LEUK 25 ESTERASE LAB L400.4050 0-5 /hpf WBC Normal 0-5 SEEN LAB L400.4100 0-5 /hpf Normal RBC-UA 0-5 SEEN LAB L400.4150 0-5 /hpf SQUAM Normal EPI 0-5 SEEN LAB L400.4300 None Seen /hpf Normal BACTERIA RARE LAB L400.4350 <or=2+ /hpf 0 Normal MUCUS, URINE SEEN Performed By: #### L400.0001 #### [facility] [address] [facility] [place], [address] ABDOMEN/PELVIS WITHOUT Observed: 08/28/2018 Status: F Source: N[place] CONT 8:23 PM [facility] REPOSITORY [facility] Imaging Services [address] [place] [address] Abdomen/Pelvis without Cont MR#: [id number] Acct: [id number] Name: HUDSON CLAYTON Rep #: [id number] : 1990 M 28 From: Dakota Dunham MD PCP: RAMAN Mendes Status: ADM IN Study: Abdomen/Pelvis without Cont Date of Exam: 08/28/18 Exam# [id number] Ordering Dr: Jone Claudio MD ADDENDUM by Benedict Ledesma MD on 08/29/18 at 0046 ADDENDUM ADDENDUM was requested for comparison with study dated 08/28/2018 at 1:25 PM. Changes of sigmoid diverticulitis on this exam are stable compared to exam from earlier same day. Microperforation described on the current study is unchanged. Electronically Signed: Benedict Ledesma MD at 0:46 EST Tel , Service support , N.B. : JONE CLAUDIO MD, confirmed on 08/29/2018 00:27:41 (ET) that the referring physician received the results and did not require a verbal consultation. 08/29/1845 Date cc: RAMAN Wren; Jone Claudio MD * Signed ADDENDUM by Benedict Ledesma MD on 08/29/[address]/Abdomen/Pelvis without Cont 08/29/1852 Date cc: RAMAN Wren; Jone Claudio MD * Signed STUDY: CT ABDOMEN AND PELVIS WITHOUT CONTRAST REASON FOR EXAM: Male, 28 years old. Diverticulitis RADIATION DOSAGE (If Supplied By Facility): CTDIvol = ( 17.11 ) mGy, DLP = ( 965.90 ) mGycm TECHNIQUE: Transaxial images were obtained from the dome of the diaphragm to the symphysis pubis without oral contrast, and without intravenous contrast. Sagittal and coronal images were reconstructed. Individualized dose optimization techniques were used for this CT. COMPARISON: November 07, 2016 FINDINGS: The visualized lung bases are unremarkable. The visualized portions of the heart are within normal limits. Normal liver. There is increased attenuation within the gallbladder which may represent tiny calcified stones without evidence for pericholecystic edema. Normal spleen. Normal pancreas. Normal bilateral adrenal glands. Normal right kidney. Normal left kidney. Normal visualized stomach. Normal small intestine. There are diverticular changes of the sigmoid colon with inflammatory stranding in the mesenteric fat consistent with acute diverticulitis. There are extraluminal air bubbles with soft tissue density above the dome of the bladder consistent with microperforation but no well-defined abscess at this time The appendix is visualized and appears normal. Normal abdominal aorta. Normal inferior vena cava. Normal retroperitoneum. Normal urinary bladder. Normal abdominal wall. Normal osseous structures. CT/Abdomen/Pelvis without Cont IMPRESSION: Acute diverticulitis of the sigmoid colon with microperforation but no well-defined abscess at this time N.B. : JONE CLAUDIO MD, confirmed on 08/29/2018 00:27:41 (ET) that the referring physician received the results and did not require a verbal consultation. Electronically Signed: Dakota Dunham MD at 22:04 EST , Service support , CC: RAMAN Wren; Jone Claudio MD Barrel Raiser: Signed EMERGENCY DEPARTMENT Observed: 08/28/2018 Status: F Source: RUSSELL SUMMARY 5:45 PM [facility] REPOSITORY [facility] Medical Records Department [address] [place] [address] Emergency Department Summary 08/28/18 1418 MR#: [id number] Acct: [id number] Name: HUDSON CLAYTON Rep #: [id number] : 1990 28 From: Kulwinder Mac DO PCP: RAMAN Mendes Status: ADM IN - ER Visit Summary Date of Service: 08/28/18 Chief Complaint: Abdominal pain History of Present Illness: The patient is a 28 M who states that last evening before bedtime he had some lower abdominal discomfort. He is able to sleep. When he woke up this morning he states he felt reasonably well. He was on the commode attempting to have a bowel movement and pushing when he developed a severe pain in the suprapubic left lower quadrant region. He states he cannot sit down. He states it feels like there is a needle going through his rectum into his abdomen. He denies any urinary symptoms. No testicular pain no history of kidney stones. Physical Examination: Afebrile vital signs are stable Gen: Well-nourished well-developed Head: Normocephalic atraumatic Eyes: Perrl EOMI ENT: TMs clear no rhinorrhea moist mucous membranes Neck: Supple no lymphadenopathy no JVD nontender CVS: Regular rate rhythm no murmurs normal S1-S2 Respiratory: No distress clear to auscultation bilaterally chest nontender Abdomen: Soft tender to palpation with guarding and rebound in the suprapubic and left lower quadrant nondistended normal bowel sounds no masses : Rectal exam is nontender with no obvious hemorrhoids Back: Nontender Extremity: Nontender no edema Skin: Normal color no rash Neuro: alert orientated 3 CN II-XII intact normal strength sensation reflexes gait cerebellar Psych: Normal affect normal mood Test Results: White count is elevated and CT demonstrates sigmoid diverticulitis with microperforation without abscess formation. Emergency Department Course and Treatment: Patient received morphine Zofran. He also received IV fluids and later Zosyn. Plan is admission into the hospital for pain control and antibiotics. Impression: 1. Acute sigmoid diverticulitis with microperforation This note was generated with [employer] dictation software. It may contain incorrect words, spelling, and punctuation that were not noted in review of the chart prior to signing ED Disposition - Plan for ED Patient: Chief Complaint: Abd Pain Referrals: Berna Wren, JAMILAH-C [Primary Care Provider] - What to do if you have Problems For any increased pain, shortness of breath, bleeding, nausea or vomiting, chest pain, or any unexpected problems, contact your Primary Care Provider. Call [facility] ([phone]) or report to the closest Emergency Room. Call 911 if necessary. 08/28/18 8950 <Electronically signed by Kulwinder Mac DO> Date Kulwinder Mac DO Cosigner Signature (If Indicated): Date CC: RAMAN Wren HISTORY AND PHYSICAL Observed: 08/28/2018 Status: F Source: RUSSELL EXAM 3:20 PM [facility] [facility] Medical Records Department [address] [place] [address] History and Physical 08/28/18 1513 MR#: [id number] Acct: [id number] Name: HUDSON CLAYTON Rep #: [id number] : 1990 28 From: Ruiz Elaine DO PCP: RAMAN Mendes Status: REG ER Y Location: ED Problem List (1) Diverticulitis Status: Acute History of Present Illness Date of Admission: 08/28/18 Chief Complaint: abdominal pain. The patient is a 28 year old M who was in his normal state of health up until last night where he started to have some vague abdominal pain. This morning, around 1030, he had acute needlelike abdominal pain at this tearing sensation across his abdomen. Patient felt like he had to have a bowel movement but did not at that time. Presented to the emergency room and had a CAT scan that showed diverticulosis with thickening of the colonic wall and pericolonic inflammatory changes consistent with acute diverticulitis. Tiny air bubbles seen along the mesenteric side of the sigmoid colon in keeping with localized perforated well-contained diverticulitis. Patient received the pain medications, IV fluids as well as Zosyn in the emergency room. Patient denies ever having had diverticulitis before. Patient if the pain medication did help with his symptoms. 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 Allergies dextromethorphan HBr [From NyQuil] Allergy (Verified 08/18/17 14:25) Anaphylaxis doxylamine [From NyQuil] Allergy (Verified 08/18/17 14:25) Anaphylaxis poison dennise extract [Poison Dennise Extract] Allergy (Verified 08/18/17 14:25) Anaphylaxis pseudoephedrine HCl [From NyQuil] Allergy (Verified 08/18/17 14:25) Anaphylaxis venom-honey bee [bee venom (honey bee)] Allergy (Verified 08/18/17 14:25) Anaphylaxis MUSHROOMS Allergy (Uncoded 08/18/17 14:25) Anaphylaxis Home Medications: Ambulatory Orders Medication Instructions Recorded Acetaminophen [Tylenol Extra 1,000 mg PO PRN PRN 08/28/18 Strength] Calcium Carbonate [Tums] 1,000 mg PO PRN PRN 08/28/18 Surgical History: - - testicular surgery on cyst--nonresectable. Lives: Spouse/ Significant Other Smoking Status: Light Smoker (<10/day) Tobacco Use: Cigarettes Alcohol: None Drugs: None - *Family History Maternal History Items: No pertinent history Paternal History Items: Heart Disease, - - murdered Review of Systems Constitutional: Reports: Anorexia, Chills. Denies: Fever Eyes: Denies: Blurred vision, Double vision HEENT: Denies: Head Aches, Sinus Congestion, Sinus Drainage Cardiovascular: Denies: Chest Pain, Palpitations Respiratory: Denies: Cough, Shortness of breath at rest, Sputum production Gastrointestinal: Reports: Abdominal Pain, Hematochezia - occassional due to hemorroids--none currently., Nausea. Denies: Hematemesis, Vomiting Genitourinary: Denies: Dysuria Musculoskeletal: Denies: Joint Pain, Joint Tenderness Skin: Denies: Rash, Wounds Neurological: Denies: Numbness, Tingling, Focal weakness Psychiatric: Denies: Anxiety, Depression, Homicidal Ideations, Suicidal Ideations Endocrine: Denies: Change in Body Habitus, Heat/ Cold Intolerance Hematologic/ Lymphatic: Denies: Easy Bruising, Easy Bleeding, Hx of blood clot Comment: A full 10 point review of systems otherwise negative except for as mentioned above and in the HPI. VTE Information - Inpt Only VTE Present on Admission: No VTE Mechan Device Prophylaxis: None VTE Pharm Prophylaxis ordered?: Yes Patient Problems: Active and Suspected Problems Diverticulitis (Acute) - Physical Exam General: Alert, Cooperative, - - Slightly uncomfortable. HEENT: Atraumatic, Normocephalic, - - No scleral icterus Oral: Moist Mucosa, No Gingival or Mucosal Lesions/ Ulcerations Neck: No Nodes, Thyroid Normal Size and Texture Lungs: Clear to auscultation, Normal air movement, No rhonchi, No wheeze Cardiovascular: Regular rate, Regular Rhythm, Normal S1, Normal S2, No murmurs Abdomen: Bowel Sounds Present, Soft, Non-Distended, No Hepato- splenomegaly, - - Diffusely tender. Extremities: No edema, No Calf Tenderness Skin: No rashes, No breakdown Musculoskeletal: No Tenderness to Palpation of Joints or Extremities, No Muscle Wasting Neurological: Muscle tone normal, Coordination normal Psych/Mental Status: Normal Affect, Appropriate Vital Signs Temp Pulse Resp BP Pulse Ox 36.0 C L 72 18 150/74 H 97 08/28/18 12:02 08/28/18 14:11 08/28/18 14:11 08/28/18 14:11 08/28/18 14:11 Oxygen Delivery Method Room Air Weight: 119.748 kg Body Mass Index (BMI) 35.8 Laboratory Tests Past 24 Hrs WBC RBC Hgb Hct MCV MCH MCHC RDW RDW Differential Clinical Impression(s) from Imaging Studies Abdomen/Pelvis CT 08/28/18 12:13 IMPRESSION: Findings in keeping with a noncomplicated acute sigmoid diverticulitis. Fatty infiltration of the liver. Electronically Signed: Chaka Burciaga MD at 13:51 EST Tel [phone], Service support , Assessment/Plan All Active Problems Diverticulitis (Acute) 1. Acute diverticulitis * Complicated with a small microperforation * Continue Zosyn * N.p.o. * If symptoms worsen, suggest repeat imaging and surgical consultation * Nonsurgical at this time 2. DVT prophylaxis with low molecular weight heparin Code Visit Inpatient E AND M: 96227 Init Hosp L3 08/28/18 1520 <Electronically signed by Ruiz Jopperi DO> Date Ruiz Elaine DO Cosigner Signature: Date (if applicable) CC: CARE NAVIGATOR-C Berna Wren; Ruiz Elaine DO Signed LIVER PROFILE Collected: 08/28/2018 Status: F Source: [place] 1:55 PM [facility] REPOSITORY TYPE CODE TESTS RESULT OUT OF RANGE REFERENCE UNITS LAB L501.1500 6.4-8.2 g/dL High T PROT 8.7 LAB L501.1800 3.2-5.0 g/dL Normal ALB 4.3 LAB L501.1950 2.2-4.2 g/dL High GLOB 4.4 LAB L501.4100 15-37 U/L Normal AST 26 LAB L501.4305 45-117 U/L Normal ALK P 86 LAB L501.4405 16-61 U/L Normal ALT 59 LAB L501.4600 0.20-1.00 mg/dL Normal T BILI 0.80 LAB L501.4700 0.00-0.30 mg/dL Normal D BILI 0.20 Performed By: #### L500.3400 #### [facility] [address] [place], [place], [address] LACTIC ACID Collected: 08/28/2018 Status: F Source: [place] 1:55 PM [facility] REPOSITORY Order Comment: Yes/No query for Sepsis Lactate Rule Y TYPE CODE TESTS RESULT OUT OF RANGE REFERENCE UNITS LAB L503.6005 0.4-2.0 mmol/L Normal LACTIC ACID 1.3 Performed By: #### L503.6005 #### [facility] [address] [place], [place], [address] CBC W/DIFF, AUTOMATED Collected: 08/28/2018 Status: C Source: [place] 12:40 PM [facility] REPOSITORY TYPE CODE TESTS RESULT OUT OF RANGE REFERENCE UNITS LAB L100.1000 4.4-11.0 K/mm3 High WBC 17.8 LAB L100.1200 4.6-6.2 M/mm3 Normal RBC 5.65 LAB L100.1300 13.0-16.5 g/dl High HGB 16.8 LAB L100.1400 40-54 % Normal HCT 50.1 LAB L100.1500 80-94 fL Normal MCV 88.7 LAB L100.1600 27.0-32.0 pg Normal MCH 29.7 LAB L100.1700 32-36 g/gl Normal MCHC 33.5 LAB L100.1810 11.6-14.6 % Normal RDW CV 13.6 LAB L100.1820 35.1-43.9 fl High RDW SD 44.1 LAB L100.1900 150-450 K/mm3 Normal PLT 246 LAB L100.2000 6.2-12.0 fl Normal MPV 11.0 LAB L100.2100 47-70 % High NEUT% 73.1 LAB L100.2200 19-41 % Low LY% 8.2 LAB L100.2300 0-10 % Normal MONO% 3.8 LAB L100.2400 0-5 % High EO% 14.7 LAB L100.2500 0-1 % Normal BASO% 0.1 LAB L100.2550 0.0-0.9 % Normal IM GRAN % 0.100 Result Comment: IG% - Immature Granulocytes (promyelocytes, myelocytes and metamyelocytes) > 1% indicates that a LEFT SHIFT is Present. LAB L100.2620 2.0-7.7 X10 3/uL High Absolute Neut 13.0 LAB L100.2720 0.83-4.51 X10 3/ul Normal Absolute Lymph 1.45 LAB L100.4500 Normal SMEAR COMMENT SCANNED LAB L100.9900 Normal PATH REV Reviewed Result Comment: Neutrophilic leukocytosis. Clinical correlation necessary. Juvenal Joseph M.D. 08/29/18 AMENDED REPORT 08/29/18 1223 PATH REV previously reported as: January tomeka Performed By: #### L100.0100 #### [facility] [place], [address] BASIC METABOLIC Collected: 08/28/2018 Status: F Source: [place] PROFILE (BMP) 12:40 PM [facility] REPOSITORY TYPE CODE TESTS RESULT OUT OF RANGE REFERENCE UNITS LAB L501.0100 74-106 mg/dL Normal GLU 100 Result Comment: Fasting Glucose result from 100 to 125 mg/dL suggests IMPAIRED HOMEOSTASIS per A.D.A. criteria. Please note revised GLUCOSE reference range effective 2017. LAB L501.1000 7-18 mg/dL Normal BUN 7 LAB L501.1100 0.70-1.30 mg/dL Normal CREAT,SERUM 0.99 Result Comment: The validity of the calculated GFR AND GFRAA in patients over 70 years has not been determined. Clinical correlation is essential. LAB L501.1110 >60 mL/min Normal EST GFR 96 Result Comment: Non- GFR Calc LAB L501.1115 >60 mL/min Normal EST GFR - AA 116 Result Comment: GFR Calc LAB L501.1255 ml/min Normal Estimated CRCL 121.93 LAB L501.1300 10-20 RATIO Low BUN/CRE 7.1 LAB L501.2200 8.5-10 mg/dL .1 CA Normal 8.6 LAB L501.5300 136-14 mmol/L 5 NA Normal 138 LAB L501.5600 3.5-5. mmol/L 1 K Normal 4.2 Result Comment: Moderate Hemolysis, Result may be falsely increased. LAB L501.5900 98-107 mmol/L Normal CL 104 LAB L501.6100 21.0-32.0 mmol/L Normal CO2 29.0 LAB L501.6200 5-15 Normal 5 GAP Performed By: #### L500.2500 #### [facility] [address], [address] ABDOMEN/PELVIS W IV CONT Observed: 08/28/2018 Status: F Source: [place] ONLY 12:14 PM [facility] REPOSITORY [facility] Imaging Services [address] [address] Abdomen/Pelvis W IV Cont ONLY MR#: [id number] Acct: [id number] Name: HUDSON CLAYTON Rep #: [id number] : 1990 M 28 From: Chaka Burciaga MD PCP: Berna Lorson, CARE NAVIGATOR-C Status: REG ER Study: Abdomen/Pelvis W IV Cont ONLY Date of Exam: 08/28/18 Exam# [id number] Ordering Dr: Kulwinder Mac DO STUDY: CT ABDOMEN AND PELVIS WITH CONTRAST REASON FOR EXAM: Male, 28 years old. Lower abdominal and rectal pain. RADIATION DOSAGE (If Supplied By Facility): CTDIvol = ( 20.28 ) mGy, DLP = ( 1349.64 ) mGycm TECHNIQUE: Transaxial images were obtained from the dome of the diaphragm to the symphysis pubis without oral contrast. 100mL ml of Isovue 300 contrast was administered. Sagittal and coronal images were reconstructed. Individualized dose optimization techniques were used for this CT. COMPARISON: Comparison is made with prior study dated November 07, 2016. FINDINGS: Minimal increased markings at the right lung base suggestive of mild atelectasis. The visualized portions of the heart are within normal limits. There is decreased attenuation of the liver consistent with steatosis. Normal gallbladder and extrahepatic biliary system. Borderline splenomegaly. Normal pancreas. Normal bilateral adrenal glands. Normal right kidney. Normal left kidney. Normal visualized stomach. Normal small intestine. There is diverticulosis, with thickening of the colon wall, and pericolonic inflammation changes consistent with acute diverticulitis. Tiny air bubbles are seen along the mesenteric side of the sigmoid colon in keeping with a localized perforated well-contained diverticulitis. No abnormal fluid collection or abscess is seen. The appendix is visualized and appears normal. Normal abdominal aorta. Normal inferior vena cava. There is borderline retroperitoneal lymphadenopathy with enlarged nodes no greater than 10mm in the short axis diameter. Normal urinary bladder. Normal abdominal wall. Normal osseous structures. CT/Abdomen/Pelvis W IV Cont ONLY IMPRESSION: Findings in keeping with a noncomplicated acute sigmoid diverticulitis. Fatty infiltration of the liver. Electronically Signed: Chaka Burciaga MD at 13:51 EST Tel [phone], Service support , CC: RAMAN Wren; Kulwinder Mac DO Barrel Raiser: Signed PROGRESS Observed: 01/28/2018 Status: COMPLETED Source: [place] 9:15 AM [facility] REPOSITORY HNO ID: [id number] Author: Kristyn Lisa Service: (none) Author Type: Distributor Advertising Material Type: Progress Notes Filed: 01/28/2018 9:17 AM Note Text: certified Letter returned Unclaimed Unable to forward. Kristyn Lisa MA PROGRESS Observed: 12/30/2017 Status: COMPLETED Source: [place] 9:14 AM [facility] REPOSITORY HNO ID: [id number] Author: Kristyn Lisa Service: (none) Author Type: Distributor Advertising Material Type: Progress Notes Filed: 12/30/2017 9:18 AM Note Text: Mailed certified letter to patient. Kristyn Lisa MA PROGRESS Observed: 12/30/2017 Status: COMPLETED Source: [place] 9:12 AM [facility] REPOSITORY HNO ID: [id number] Author: Krsityn Lisa Service: (none) Author Type: Distributor Advertising Material Type: Progress Notes Filed: 12/30/2017 9:18 AM Note Text: Call patient's cell phone and it has restrictions not to left my call go through. Kristyn Lisa MA PROGRESS Observed: 12/25/2017 Status: COMPLETED Source: [place] 5:26 PM [facility] REPOSITORY HNO ID: [id number] Author: Nicolás Galarza Service: (none) Author Type: Physician Type: Progress Notes Filed: 12/30/2017 9:18 AM Note Text: Labs ordered Nicolás Galarza MD PROGRESS Observed: 12/25/2017 Status: COMPLETED Source: [place] 2:42 PM [facility] REPOSITORY HNO ID: [id number] Author: Kristyn Lisa Service: (none) Author Type: Distributor Advertising Material Type: Progress Notes Filed: 12/30/2017 9:18 AM Note Text: PHMA TEAMLET DOCUMENTATION Provider Action/FYI: Patient needs appointment, needs labs ordered, CMP lipids . PSR Action/FYI: patient needs appointment scheduled Teamlet has identified patient by name and date of . Team: Lindsay Parker MA, Ofelia Wilkes MA, Kristyn Lisa MA, RUPERT Stock, Dr. Nicolás Galarza, Valeria Richey PSR, Valeria Reed, RN, BSN,CPNQ,CCM ? Last Office Visit:Visit date not found ? Next Office Visit: Visit date not found ? Last BP/Labs: Blood Pressure: Last 3 Encounter BP Readings: Date: BP: 11/05/2016 144/92 09/08/2014 128/70 08/25/2014 132/76 Lipids: No results found for: CHOL No results found for: HDL LDL Chol, Gove (mg/dL) Date Value 04/14/2009 153 No results found for: TG HGB A1C: No results found for: HBA1C TSH: No results found for: TSH) Care Gap: HTN - Last BP NOT under 140/90 Plan: ? Confirm PCP / Status ? Type of appointment needed follow up ? Consultation Appointments: Labs, HM and Immunization: Labs: CMP Lipids Kristyn Lisa MA CNPTOUTREACH Observed: 12/25/2017 Status: COMPLETED Source: [place] 12:00 AM [facility] REPOSITORY Patient Outreach (FAMPWS) HUDSON CLAYTON ([id number]) 1990 M Date Time Provider Department 12/25/17 KRISTYN LISA) FAMPWS During your visit today, we recorded the following information about you: Kristyn Lisa MA 12/30/2017 9:18 AM Signed PHMA TEAMLET DOCUMENTATION Provider Action/FYI: Patient needs appointment, needs labs ordered, CMP lipids . PSR Action/FYI: patient needs appointment scheduled Teamlet has identified patient by name and date of . Team: Lindsay Parker MA, Ofelia Wilkes MA, Kristyn Lisa MA, RUPERT Stock, Dr. Nicolás Galarza, Valeria Richey PSR, Valeria Reed, RN, BSN,CPNQ,CCM ? Last Office Visit:Visit date not found ? Next Office Visit: Visit date not found ? Last BP/Labs: Blood Pressure: Last 3 Encounter BP Readings: Date: BP: 11/05/2016 144/92 09/08/2014 128/70 08/25/2014 132/76 Lipids: No results found for: CHOL No results found for: HDL LDL Chol, Nisreen (mg/dL) Date Value 04/14/2009 153 No results found for: TG HGB A1C: No results found for: HBA1C TSH: No results found for: TSH) Care Gap: HTN - Last BP NOT under 140/90 Plan: ? Confirm PCP / Status ? Type of appointment needed follow up ? Consultation Appointments: Labs, HM and Immunization: Labs: CMP Lipids AMINA Degroot MD 12/30/2017 9:18 AM Signed Labs ordered MD Kristyn Tracy MA 12/30/2017 9:18 AM Signed Call patient's cell phone and it has restrictions not to left my call go through. AMINA Degroot MA 12/30/2017 9:18 AM Signed Mailed certified letter to patient. AMINA Degroot MA 01/28/2018 9:17 AM Signed certified Letter returned Unclaimed Unable to forward. Kristyn Lisa MA Allergies As of Date: 12/25/2017 Noted Allergy Reaction BEES 02/25/2009 10 - Anaphylaxis COMPAZINE (PROCHLORPERAZINE EDISY*05/30/2010 5 - Intolerance Comments: lock jaw MUSHROOM COMBINATION NO.1 08/25/2014 4 - Hives POISON DENNISE 02/28/2009 2 - Rash Date Reviewed: 11/09/2016 Reviewed by: Belen Troncoso Ct - Fully Assessed Reason for Visit: PHMA/Care Gap Outreach [3605] Primary Visit Diagnosis:Screening for hyperlipidemia [Z13.220] Other Visit Diagnosis:Routine general medical examination at a health care facility [Z00.00] Order(s):COMP METABOLIC PANEL [SQCMP] Order #: [id number] FUTURE LIPID PANEL BASIC [SQLIPB] Order #: [id number] FUTURE Prescriptions as of 12/25/2017 Sig: OMEPRAZOLE 20 MG CAPSULE,YARI* Take 1 capsule by mouth daily* CPAP Initiate CPAP @ 11 cm of wate* Problem List As Of Date 12/25/2017 Noted Resolved ADD (Attention Deficit Disorder) [F98.8] INVALID FOR* Bipolar Affective Disorder [F31.9] INVALID FOR* Depressive Disorder, not Elsewhere Classified [*INVALID FOR* Unspecified Backache [M54.9] INVALID FOR* Verruca [B07.9] INVALID FOR* Toxic effect of venom [T63.91XA] INVALID FOR* Spermatocele [N43.40] INVALID FOR* Testalgia [N50.819] INVALID FOR* Right ankle sprain [S93.401A] INVALID FOR* Sleep apnea [G47.30] INVALID FOR* Letter Text Nicolás Galarza MD [address] [facility] [id number] Kristyn Lisa MA, Population silkfred M.A. December 30, 2017 [place] Jamey Clayton [address] [facility] [place] [address] Dear Mr. Clayton In an effort to serve your healthcare needs, it has come to the attention of Nicolás Galarza MD, your Primary Care Provider, that you are overdue for routine health care. We've attempted to contact you and have been unsuccessful. Please call the office at [phone] to schedule an appointment for Follow Up. Health Maintenance Due: ONE PNEUMOVAX PRIOR TO AGE 65 due on 2009 If any of these routine health care items were completed by an outside facility, please have that office fax the results to [phone] Attn: Nicolás Galarza MD or bring the records with you to your appointment. We will gladly update your record. If you have any questions, please feel free to call the office at [phone] or message us via [email or web address]. Thank you for choosing the [facility]. Sincerely, Kristyn Lisa MA, Population Health M.A. (electronically signed to expedite mailing) Encounter Status:Closed by KRISTYN LISA on 12/30/17 ALLERGIES ALLERGIES DATE TYPE / CODE NAME / CODE REACTION SEVERITY SOURCE 09/09/20 Drug dextromethorphan Anaphylaxis Unknown [place] 18 Allergy/633914209 HBr/R833965399([facility] Repository 09/09/20 Drug pseudoephedrine Anaphylaxis Unknown [place] 18 Allergy/346701586 HCl/G258097032(RXNOR [facility] (SNOMED CT) M) Hospital Repository 09/09/20 Drug doxylamine/H61108815 Anaphylaxis Unknown Gove 18 Allergy/744736731 9(RXNORM) [facility] (SNOMED CT) Hospital Repository 09/09/20 Drug poison dennise Anaphylaxis Unknown [place] 18 Allergy/350157809 extract/A347147213(R [facility] (SNOMED CT) XNORM) Hospital Repository 09/09/20 Drug venom-honey Anaphylaxis Unknown [place] 18 Allergy/638229008 bee/J900833357(RXNOR [facility] (SNOMED CT) M) Hospital Repository 09/04/20 Miscellaneous MUSHROOMS Anaphylaxis Unknown Gove 18 Allergy/793530146 [facility] (SNOMED CT) Hospital Repository ENCOUNTERS ENCOUNTERS ADMIT/DISCHARGE ACCOUNT NUMBER ADMITTING ENCOUNTER LOCATION SOURCE CLASS 09/09/2018 [id number] Ambulatory BMSBuilding: [place] BMS.[facility] Repository 09/09/2018/09/09/20 [id number] Emergency [address] ding:ED Repository 09/04/2018/09/08/20 [id number] [place], Inpatient [place] [address] Son[place] Encounter [facility] ding:[id number] Repository : TC364Iug: 1 09/04/2018 [id number] Sementi, Ambulatory BMSBuilding: [place] Sonam BMS.[facility] Repository 09/04/2018 [id number] [place], Ambulatory BMSBuilding: [place] Sonam BMS.[facility] Repository 09/04/2018 [id number] [place], Ambulatory BMSBuilding[facility] [place] [facility] 09/04/2018 [id number] S[place], Ambulatory BMSBuilding: [place] Sonam BMS.[facility] Repository 09/04/2018 [id number] [place], Ambulatory BMSBuilding: [place] Sonam BMS.CF.[facility] Repository 09/04/2018 [id number] [place]i, Ambulatory BMSBuilding: [place] Sonam BMS.[facility] Repository 09/04/2018 [id number] S[place]i, Ambulatory BMSBuilding: [place] Sonam BMS.CF.[facility] Repository 09/04/2018 [id number] [place], Ambulatory BMSBuilding: [place] Sonam BMS.[facility] Repository 09/04/2018 [id number] S[place]i, Ambulatory BMSBuilding: [place] Sonam BMS.[facility] Repository 08/28/2018 [id number] Ambulatory BMSBuilding: [place] BMS.[facility] Repository 08/28/2018/09/02/20 [id number] [place], Inpatient Nis[place] Nisreen [address] [facility] ding:[id number] Repository : HV095Nln: 1 08/28/2018 [id number] [place] Ambulatory BMSBuilding: [place] Ruiz BMS..[facility] Repository 08/28/2018 [id number] [place] Ambulatory BMSBuilding: [place] Ruiz BMS.[facility] Repository 08/28/2018 [id number] [place] Ambulatory BMSBuilding: [place] Ruiz BMS..[facility] Repository 08/28/2018 [id number] [place] Ambulatory BMSBuilding: [place] Ruiz BMS.CF.[facility] Repository 08/28/2018 [id number] [place], Ambulatory BMSBuilding: [place] Ruiz BMS.[facility] Repository 08/28/2018 [id number] [place] Ambulatory BMSBuilding: Gove Ruiz BMS..[facility] Repository 08/28/2018 [id number] [place] Ambulatory BMSBuilding: [place] Ruiz BMS.[facility] Repository 08/28/2018 [id number] [place] Ambulatory BMSBuilding: [place] Ruiz BMS.CF.[facility] Repository 08/28/2018 [id number] Jopperi, Ambulatory BMSBuilding: N[place] Ruiz BMS.[facility] Repository 08/28/2018 [id number] [place] Ambulatory BMSBuilding: Gove Ruiz BMS.CF.[facility] Repository 08/28/2018 [id number] [place] Ambulatory BMSBuilding: Gove Ruiz BMS.[facility] Repository 05/15/2018 [id number] Emergency [address] [place] [address] EDRoom: 2A System 444Bed: Repository [id number] PAYERS PAYERS ENCOUNTER GUARANTOR PAYER SUBSCRIBER SOURCE 09/09/2018 HUDSON R Primary HUDSON R Gove [id number] Insurance:MYCARE CRSC CYRUSDOB: Community HDZ RDLOT *IN [facility] [id number]: Repository [address]Hdy: 330 [id number] [phone] () Date:[id number] [facility]S [facility] [address] [address]UV: 09/09/2018 Secondary NOT GIVENUNK [place] Insurance:SELF PAY [facility] Number: Effective Repository Date:2018-09-09 09/09/2018 HUDSON R Primary HUDSON R Gove [id number] Insurance:MYCARE CRSC CYRUSDOB: [facility] *IN [facility] [id number] Number: Repository [address]Ydd: 330 [id number] [phone] () Date:[id number] CLAIMS DEPTPO [address] [place] [address]RQ: 09/09/2018 Secondary NOT GIVENUNK [place] Insurance:SELF PAY [facility] Number: Effective Repository Date:2018-09-09 09/04/2018 HUDSON R Primary HUDSON R Gove [id number] Insurance:MYCARE CRSC CYRUSDOB: Community HDZ RDLOT *IN [facility] [id number] Number: Repository [id number]: 330 [id number] [phone] (HP) Date:[id number] CLAIMS DEPTPO BOX [address] [address]CY: 09/04/2018 Secondary NOT GIVENUNK Nisreen Insurance:SELF PAY [facility] Number: Effective Repository Date:2018-09-04 09/04/2018 HUDSON R Primary HUDSON R Nisreen [id number] Insurance:MYCARE CRSC CYRUSDOB: Community HDZ RDLOT *IN [facility] [id number] Number: Repository [address]Rob: 330 [id number] [phone] (HP) Date:7824-41-93HEIX [address]S [address] [address]FH: 09/04/2018 Secondary HUDSON R Gove Insurance:MEDICARE CYRUSDOB: Community PART A [facility] [id number] Number: Repository [id number] Date:2018-09-04 09/04/2018 Tertiary NOT GIVENUNK Nisreen Insurance:SELF PAY [facility] Number: Effective Repository Date:2018-09-04 09/04/2018 HUDSON R Primary HUDSON R Gove [id number] Insurance:MYCARE CRSC CYRUSDOB: Community HDZ RDLOT *IN [facility] [id number] Number: Repository [id number]: 330 [id number] [phone] (HP) Date:1667-88-95YABZ [address]S [address] [address]OX: 09/04/2018 Secondary NOT GIVENUNK Gove Insurance:SELF PAY [facility] Number: Effective Repository Date:2018-09-04 09/04/2018 HUDSON R Primary HUDSON R Gove [id number] Insurance:MYCARE CRSC CYRUSDOB: Community HDZ RDLOT *IN [facility] [id number] Number: Repository [id number]: 330 [id number] [phone] (HP) Date:4568-16-00JYHN [address]S [address] [address]PK: 09/04/2018 Secondary NOT GIVENUNK Nisreen Insurance:SELF PAY [facility] Number: Effective Repository Date:2018-09-04 09/04/2018 HUDSON R Primary HUDSON R Gove [id number] Insurance:MYCARE CRSC CYRUSDOB: Community HDZ RDLOT *IN [facility] [id number] Number: Repository [address]Srl: 330 [id number] [phone] (HP) Date:3988-04-63CCAL CLAIMS [address] [place] [address]HF: 09/04/2018 Secondary NOT GIVENUNK Gove Insurance:SELF PAY [facility] Number: Effective Repository Date:2018-09-04 09/04/2018 HUDSON R Primary HUDSON R Nisreen [id number] Insurance:MYCARE CRSC CYRUSDOB: Community HDZ RDLOT *IN [facility] [id number] Number: Repository [address]Kse: 330 [id number] [phone] () Date:5301-97-82JCCI CLAIMS [address] [place] [address]KZ: 09/04/2018 Secondary NOT GIVENUNK Nisreen Insurance:SELF PAY [facility] Number: Effective Repository Date:2018-09-04 09/04/2018 HUDSON R Primary HUDSON R Gove [id number] Insurance:MYCARE CRSC CYRUSDOB: Community HDZ RDLOT *IN [facility] [id number] Number: Repository [address]Ptf: 330 [id number] [phone] () Date:0204-46-28CMLW CLAIMS [address] [place] [address]LD: 09/04/2018 Secondary NOT GIVENUNK Gove Insurance:SELF PAY [facility] Number: Effective Repository Date:2018-09-04 09/04/2018 HUDSON R Primary HUDSON R Nisreen [id number] Insurance:MYCARE CRSC CYRUSDOB: [facility] RDLOT *IN [facility] [id number] Number: Repository [address]Foe: 330 [id number] [phone] () Date:7848-89-87UUNA CLAIMS [address] [place] [address]RW: 09/04/2018 Secondary NOT GIVENUNK Nisreen Insurance:SELF PAY [facility] Number: Effective Repository Date:2018-09-04 09/04/2018 HUDSON R Primary HUDSON R Gove [id number] Insurance:MYCARE CRSC CYRUSDOB: [facility] RDLOT *IN [facility] [id number] Number: Repository [address]Lxm: 330 [id number] [phone] () Date:2468-46-66JQEB [facility]S [facility] [address] [address]GZ: 09/04/2018 Secondary NOT GIVENUNK Nisreen Insurance:SELF PAY [facility] Number: Effective Repository Date:2018-09-04 09/04/2018 HUDSON R Primary HUDSON R Gove [id number] Insurance:MYCARE CRSC [facility] [id number] Number: Repository [address]Wrr: 330 [id number] [phone] () Date:9957-79-27UWHB CLAIMS DEPTPO [address] [address]SE: 09/04/2018 Secondary HUDSON R Gove Insurance:MEDICARE CYRUSDOB: [facility] PART A [facility] [id number] Hospital Number: Repository [id number] Date:2018-09-04 09/04/2018 Tertiary NOT GIVENUNK Gove Insurance:SELF PAY [facility] Number: Effective Repository Date:2018-09-04 08/28/2018 HUDSON R Primary HUDSON R Gove [id number] Insurance:MYCARE CRSC CYRUSDOB: Community HDZ RDLOT *IN [facility] [id number], [place] Number: Repository [address]Yln: 330 [id number] [phone] () Date:9457-49-06UVLY CLAIMS [address], [place] [address]WK: 08/28/2018 Secondary NOT GIVENUNK Gove Insurance:SELF PAY [facility] Number: Effective Repository Date:2018-08-28 08/28/2018 HUDSON R Primary HUDSON R Gove [id number] Insurance:MYCARE CRSC CYRUSDOB: Community HDZ RDLOT *IN [facility] [id number], [place] Number: Repository [address]Hgr: 330 [id number] [phone] () Date:8076-54-37QILY CLAIMS [address] [address]WV: 08/28/2018 Secondary NOT GIVENUNK Gove Insurance:SELF PAY [facility] Number: Effective Repository Date:2018-08-28 08/28/2018 HUDSON R Primary HUDSON R Nisreen [id number] Insurance:MYCARE CRSC CYRUSDOB: Community HDZ RDLOT *IN [facility] [id number], [place] Number: Repository [address]Egf: 330 [id number] [phone] () Date:2232-62-62RWVC CLAIMS [address] [address]XN: 08/28/2018 Secondary NOT GIVENUNK Gove Insurance:SELF PAY [facility] Number: Effective Repository Date:2018-08-28 08/28/2018 HUDSON R Primary HUDSON R Nisreen [id number] Insurance:MYCARE CRSC CYRUSDOB: Community HDZ RDLOT *IN [facility] [id number] Number: Repository [address]Tkg: ([phone]) [id number] [phone] (HP) Date:0823-07-90CKCS CLAIMS [address] [address]RL: 08/28/2018 Secondary NOT GIVENUNK Nisreen Insurance:SELF PAY [facility] Number: Effective Repository Date:2018-08-28 08/28/2018 HUDSON R Primary HUDSON R Nisreen [id number] Insurance:MYCARE CRSC CYRUSDOB: Community HDZ RDLOT *IN [facility] [id number], [place] Number: Repository [address]Bkt: 330 [id number] [phone] (HP) Date:6846-81-48NHKP CLAIMS [address] [address]WA: 08/28/2018 Secondary NOT GIVENUNK Gove Insurance:SELF PAY [facility] Number: Effective Repository Date:2018-08-28 08/28/2018 HUDSON R Primary HUDSON R Gove [id number] Insurance:MYCARE CRSC CYRUSDOB: Community HDZ RDLOT *IN [facility] 1264-81-87DW[place], [place] Number: Repository [address]Gkf: 330 [id number] [phone] (HP) Date:9989-80-18MNQM CLAIMS [address] [address]IM: 08/28/2018 Secondary NOT GIVENUNK Nisreen Insurance:SELF PAY [facility] Number: Effective Repository Date:2018-08-28 08/28/2018 HUDSON R Primary HUDSON R Nisreen [id number] Insurance:MYCARE CRSC CYRUSDOB: Community HDZ RDLOT *IN [facility] 8047-47-83[place]FO[place] Number: Repository [address]Bss: 330 [id number] [phone] (HP) Date:4107-76-15SVVN CLAIMS [address] [address]FM: 08/28/2018 Secondary NOT GIVENUNK Gove Insurance:SELF PAY [facility] Number: Effective Repository Date:2018-08-28 08/28/2018 HUDSON R Primary HUDSON R Nisreen [id number] Insurance:MYCARE CRSC CYRUSDOB: Community HDZ RDLOT *IN [facility] 8253-30-21PZY[place], [place] Number: Repository [address]Nou: 330 [id number] [phone] () Date:1932-27-16NVYC CLAIMS [address] [address]TD: 08/28/2018 Secondary NOT GIVENUNK Nisreen Insurance:SELF PAY [facility] Number: Effective Repository Date:2018-08-28 08/28/2018 HUDSON R Primary HUDSON R Gove [id number] Insurance:MYCARE CRSC CYRUSDOB: Community HDZ RDLOT *IN [facility] [id number], [place] Number: Repository [address]Onz: 330 [id number] [phone] () Date:8236-59-39GGKZ CLAIMS [address] [place] [address]QP: 08/28/2018 Secondary NOT GIVENUNK Nisreen Insurance:SELF PAY [facility] Number: Effective Repository Date:2018-08-28 08/28/2018 HUDSON R Primary HUDSON R Gove [id number] Insurance:MYCARE CRSC CYRUSDOB: Community HDZ RDLOT *IN [facility] [id number], [place] Number: Repository [address]Ulu: 330 [id number] [phone] () Date:1003-65-22QJDK CLAIMS [address] [address]FX: 08/28/2018 Secondary NOT GIVENUNK Gove Insurance:SELF PAY [facility] Number: Effective Repository Date:2018-08-28 08/28/2018 HUDSON R Primary HUDSON R Gove [id number] Insurance:MYCARE CRSC CYRUSDOB: Community HDZ RDLOT *IN [facility] 9860-98-26[place], [place] Number: Repository [id number]: ([phone]) [id number] [phone] (HP) Date:3305-30-11JQQL CLAIMS [address] [address]JW: 08/28/2018 Secondary NOT GIVENUNK Gove Insurance:SELF PAY [facility] Number: Effective Repository Date:2018-08-28 08/28/2018 HUDSON R Primary HUDSON R Nisreen [id number] Insurance:MYCARE CRSC CYRUSDOB: Community HDZ RDLOT *IN [facility] 0541-93-46SHYF[place], [place] Number: Repository [address]Bwx: (335) [id number] [phone] (HP) Date:5094-31-33GZZF [address]S [address] [address]FC: 08/28/2018 Secondary NOT GIVENUNK Gove Insurance:SELF PAY [facility] Number: Effective Repository Date:2018-08-28 08/28/2018 HUDSON R Primary HUDSON R Nisreen [id number] Insurance:MYCARE CRSC CYRUSDOB: Community HDZ RDLOT *IN [facility] [id number], [place] Number: Repository [id number]: ([phone]) [id number] [phone] (HP) Date:1017-66-05RNUV CLAIMS [address] [place] [address]ND: 08/28/2018 Secondary NOT GIVENUNK Nisreen Insurance:SELF PAY [facility] Number: Effective Repository Date:2018-08-28 05/15/2018 Hudson Primary [facility] CyrusDOB: Insurance:CareSourceP CyrusDOB: System [id number] olicy Number: [id number] Repository [address] Lot Effective Date: [place], [place] [address]Gkl: (HP) 05/15/2018 Secondary [facility] Insurance:CareSourceP CyrusDOB: System olicy Number: [id number] Repository Effective Date:
== END 2018-09-02 15:00 | disposition home or self-care (01) | DRG 872 ==
LOC: ED 13:23 → MS3 15:39
PROVIDERS: Family Medicine; Hospitalist; Surgery; Emergency Provider Emergency Medicine; Family Provider Nurse Practitioner Family; PCP Nurse Practitioner Family; Visit Provider Family Medicine
DX: A41.9 Sepsis, unspecified organism (principal); K57.20 Diverticulitis of large intestine with perforation and abscess without bleeding; F17.210 Nicotine dependence, cigarettes, uncomplicated; E87.6 Hypokalemia; E66.9 Obesity, unspecified; Z68.35 Body mass index [BMI] 35.0-35.9, adult; R07.89 Other chest pain; K21.9 Gastro-esophageal reflux disease without esophagitis; F31.9 Bipolar disorder, unspecified; F90.9 Attention-deficit hyperactivity disorder, unspecified type; K58.9 Irritable bowel syndrome, unspecified; K64.9 Unspecified hemorrhoids; F43.10 Post-traumatic stress disorder, unspecified
CPT/HCPCS: 36415; 74176; 74177; 80048; 80076; 81001; 83605; 83735; 84484; 85025; 93005; 97802; 99282; J7030; J7040; J7120; Q9967; A4216; J0744; J2405

== ENCOUNTER 2018-09-04 00:07 | Inpatient (IN) | payer MEDICARE, SELFPAY ==
[2018-09-04] VITALS (17 sets, daily range): BP systolic 135–190; BP diastolic 78–123; PULSE 46–82; RESP 12–22; TEMP 36.4–36.8; O2SAT 93–100; BMI 33.5
--- NOTE | 2018-09-04 00:15 | CT_ITS ---
STUDY: CT ABDOMEN AND PELVIS WITH CONTRAST REASON FOR EXAM: Male, 28 years old. Abdominal pain. History of diverticulitis RADIATION DOSAGE (If Supplied By Facility): CTDIvol = ( 20.00 ) mGy, DLP = ( 1372.80 ) mGycm TECHNIQUE: Transaxial images were obtained from the dome of the diaphragm to the symphysis pubis without oral contrast. 100ML ml of Isovue 300 contrast was administered. Sagittal and coronal images were reconstructed. Individualized dose optimization techniques were used for this CT. COMPARISON: August 28, 2018 FINDINGS: There is a small right-sided pleural effusion. The liver is normal. No dilated intrahepatic biliary radicles. The gallbladder is normal with no calcifications within it. There is no pericholecystic fluid collection or streakiness The spleen is normal. The pancreas is normal. Both adrenals are normal. The kidneys are normal with no masses, calculi or hydronephrosis The stomach is normal. There is no acute appendicitis. There is sigmoid diverticulitis with a 4 x 3 cm abscess formation in between loops of large bowel just superior to the urinary bladder. The abscess formation was not present in the last examination of August 28, 2018 The abdominal wall is intact with no hernias. There is no ascites or any free intraperitoneal air. No indication of epiploic appendagitis The vascular structures in the retroperitoneum are normal. There is no retrocrural, retroperitoneal or mesenteric adenopathy. The bones and joints are normal. The urinary bladder is normal.--The prostate is normal. There is no inguinal or pelvic adenopathy. There is no inguinal hernia. . CT/Abdomen/Pelvis W IV Cont ONLY IMPRESSION: Acute sigmoid diverticulitis with a 4 x 3 cm abscess formation in between loops of large bowel in the midline just above the urinary bladder. This was not present in the last examination of August 28, 2000 8T Electronically Signed: Renny Girard MD at 1:50 EST Tel , Service support ,
[2018-09-04] MEDS: Ondansetron 4 MG/2 ML Vial IV (00:23)
[2018-09-04] MEDS: 0.9% Normal Saline 1,000 ML 1000 ML IV (00:23)
[2018-09-04] MEDS: HYDROmorphone 1 MG/ML Syringe IV ×7 (00:23→21:30)
[2018-09-04 00:52] LABS: Absolute Lymphocyte Count 1.48 X10^3/ul (0.83-4.51); Absolute Neutrophil Count 5.4 X10^3/uL (2.0-7.7); Basophil# 0.02 X10^3/uL; Basophil% 0.2 % (0-1); Eosinophil# 0.56 X10^3/uL; Eosinophils% 6.9 % (0-5); Hematocrit 41.1 % (40-54); Hemoglobin 13.9 g/dl (13.0-16.5); Lymphocyte # 1.48 X10^3/ul (4.0); Lymphocyte % 18.2 % (19-41); Mean Corp Hgb Conc 33.8 g/gl (32-36); Mean Corpuscular Hgb 28.7 pg (27.0-32.0); Mean Corpuscular Volume 84.9 fL (80-94); Mean Platelet Vol. 10.5 fl (6.2-12.0); Monocyte# 0.59 X10^3/uL; Monocyte% 7.3 % (0-10); Neutrophil # 5.43 X10^3/uL (2.7-7.7); Platelet Count 315 K/mm3 (150-450); RBC Distribution Width CV 13.4 % (11.6-14.6); RBC Distribution Width SD 41.4 fl (35.1-43.9); Red Blood Count 4.84 M/mm3 (4.6-6.2); White Blood Count 8.1 K/mm3 (4.4-11.0)
[2018-09-04 00:53] LABS: POSITIVE COUNT NO; POSITIVE DIFFERENTIAL NO; POSITIVE MORPHOLOGY NO
[2018-09-04 01:11] LABS: ALB/GLOB Ratio 0.8 RATIO (0.9-2.4); AST(SGOT) 19 U/L (15-37); Alanine Aminotransfer ALT/SGPT 29 U/L (16-61); Albumin, Serum 3.4 g/dL (3.2-5.0); Alkaline Phosphatase 64 U/L (45-117); Anion Gap 10 (5-15); BUN 9 mg/dL (7-18); BUN/Creat Ratio 9.6 RATIO (10-20); Calcium,Total 8.8 mg/dL (8.5-10.1); Chloride 104 mmol/L (98-107); Creatinine, Serum 0.94 mg/dL (0.70-1.30); EST Glomerular Filtration Rate 101 mL/min (>60); Est Glom Filt Rate - Afr Amer 122 mL/min (>60); Estimated Creatinine Clearance 128.42 ml/min; Globulin 4.5 g/dL (2.2-4.2); Glucose 87 mg/dL (74-106); Lipase 161 U/L (73-393); Potassium 3.2 mmol/L (3.5-5.1); Protein, Total 7.9 g/dL (6.4-8.2); Sodium Level 139 mmol/L (136-145)
--- NOTE | 2018-09-04 02:08 | ED.VISSUMM ---
- ER Visit Summary Date of Service: 09/04/18 Chief Complaint: Abdominal pain History of Present Illness: The patient is a 28 M who was recently admitted for diverticulitis. He is on Cipro and Flagyl. He went home and then had increasing pain in his lower abdomen. He has been taking his antibiotics and is taking Motrin, but this was not helping with the pain. No other associated symptoms. Physical Examination: Afebrile and vital signs unremarkable. Patient is tearful and appears very uncomfortable. Abdomen is tender in the lower hemiabdomen. No guarding or rebound. Heart regular. Lungs clear. Skin appears normal. Test Results: Labs are all fairly unremarkable. His CT shows diverticulitis with a new abscess measuring 4 cm x 3 cm. Emergency Department Course and Treatment: Patient received fluids, Dilaudid, and Zofran on arrival. I did check labs and repeated his CAT scan. CT shows a new abscess formation. Will contact the hospitalist for admission for further care. The patient did have his antibiotics this evening already. He received an additional dose of Dilaudid. I spoke with Dr. Rosales. Typically this can be treated percutaneously. He advised that his partners that previously saw the patient can evaluate him tomorrow. Treatment Plan: As above Disposition: Admission Impression: 1. Diverticular abscess This note was generated with [employer] dictation software. It may contain incorrect words, spelling, and punctuation that were not noted in review of the chart prior to signing ED Disposition - Plan for ED Patient: Chief Complaint: Abd Pain Referrals: Berna Wren, JAMILAH-C [Primary Care Provider] -
[2018-09-04] MEDS: proMETHazine 25 MG/ML Syringe 6.25 MG IV (02:37)
--- NOTE | 2018-09-04 02:53 | HP.PCM_ITS ---
Problem List (1) Colonic diverticular abscess Status: Acute (2) Hypokalemia Status: Acute (3) Tobacco dependence Status: Chronic (4) GERD (gastroesophageal reflux disease) Status: Chronic (5) Obesity Status: Chronic Qualifiers: Body mass index: BMI 33.0-33.9 (6) IBS (irritable bowel syndrome) Status: Chronic (7) Hemorrhoids Status: Chronic (8) Diverticulitis Status: Acute (9) PTSD (post-traumatic stress disorder) Status: Chronic (10) Bipolar disorder Status: Chronic History of Present Illness Date of Admission: 09/04/18 Chief Complaint: abdominal pain associated with nausea and vomiting The patient is a 28 year old M with a past medical history of bipolar disorder, ADHD, obesity, tobacco dependence and GERD who was recently an inpatient at [facility] from 08/28/2018 until 09/02/2018. He was admitted and treated for acute sepsis secondary to acute sigmoid diverticulitis with microperforation. He was discharged home on Cipro, Flagyl, Phenergan, Motrin and Tylenol for pain. He returned to the emergency department at [facility] on 09/04/2018 complaining of increasing abdominal pain associated with nausea and bilious emesis. Vital signs at presentation to the emergency room were temp 97.6, pulse rate 68, pressure 155/113, respiratory rate 17 and he was 96-99% saturated on room air. Lab included an unremarkable CBC and a low potassium of 3.2. CT scan of the abd and pelvis showed acute sigmoid diverticulitis with a 4 cm x 3 cm abscess located in between loops of large bowel in the midline just above the urinary bladder. This is a new finding since 08/28/2018. He is being readmitted to the hospital and will obtain a consult with general surgery. I suspect they will recommend percutaneous drainage by interventional radiology. 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 Allergies dextromethorphan HBr [From NyQuil] Allergy (Verified 09/04/18 00:14) Anaphylaxis doxylamine [From NyQuil] Allergy (Verified 09/04/18 00:14) Anaphylaxis poison mimi extract [Poison Mimi Extract] Allergy (Verified 09/04/18 00:14) Anaphylaxis pseudoephedrine HCl [From NyQuil] Allergy (Verified 09/04/18 00:14) Anaphylaxis venom-honey bee [bee venom (honey bee)] Allergy (Verified 09/04/18 00:14) Anaphylaxis MUSHROOMS Allergy (Uncoded 09/04/18 00:14) Anaphylaxis Home Medications: Ambulatory Orders Medication Instructions Recorded Calcium Carbonate [Tums] 1,000 mg PO PRN PRN 08/28/18 Acetaminophen [Tylenol Extra 1,000 mg PO Q8H PRN #0 09/02/18 Strength] Ciprofloxacin [Cipro] 500 mg PO BID #10 tablet 09/02/18 Ibuprofen [Motrin] 400 - 800 mg PO Q6H PRN PRN tablet 09/02/18 Metronidazole [Flagyl] 500 mg PO TIDCM #15 tablet 09/02/18 Pantoprazole Sodium [Protonix] 20 mg PO BID #60 tablet 09/02/18 proMETHazine tablet [Phenergan 25 mg PO Q6H PRN PRN #20 tablet 09/02/18 tablet] Surgical History: no surgical history, - - testicular surgery on cyst--nonresectable., left foot Psychiatric History: Bipolar, Post traumatic stress Lives: Spouse/ Significant Other Smoking Status: Current every day smoker Tobacco Use: Cigarettes Alcohol: None Drugs: None - *Family History Paternal History Items: Heart Disease, - - murdered Maternal History Items: No pertinent history Review of Systems Constitutional: Reports: Chills. Denies: Fever, Weight Change HEENT: Denies: Head Aches, Sinus Congestion, Sinus Drainage Cardiovascular: Denies: Chest Pain, Palpitations Respiratory: Denies: Cough, Shortness of breath at rest, Sputum production Gastrointestinal: Reports: Abdominal Pain, Nausea, Vomiting Genitourinary: Denies: Dysuria Musculoskeletal: Denies: Joint Pain, Joint Tenderness Skin: Denies: Jaundice, Rash, Wounds Neurological: Denies: Numbness, Tingling, Focal weakness Psychiatric: Reports: Anxiety. Denies: Depression, Homicidal Ideations, Suicidal Ideations Hematologic/ Lymphatic: Denies: Easy Bruising, Easy Bleeding, Hx of blood clot VTE Information - Inpt Only VTE Present on Admission: No VTE Mechan Device Prophylaxis: SCD's VTE Pharm Prophylaxis ordered?: Yes Patient Problems: Active and Suspected Problems (Last Updated 08/28/18 @ 21:47 by Roxi Weiss MD) Colonic diverticular abscess (Acute) Hypokalemia (Acute) - Physical Exam General: Alert, Oriented x3, Cooperative, - - appears to be in pain HEENT: Atraumatic, PERRLA, EOMI, Normocephalic Oral: Dry Mucosa, - - poor dentition Neck: Supple, No JVD, Negative Carotid Bruits, Trachea Midline Lungs: Clear to auscultation, Normal air movement, No rhonchi, No wheeze, No rales, - - he is not taking a deep breath due to increased abdominal pain with a deep breath......bu the lungs are CTA Cardiovascular: Regular rate, Regular Rhythm, Normal S1, Normal S2, No murmurs, No rub noted, No Gallop Abdomen: Soft, Hypoactive Bowel Sounds, Tender - steve in the lower quadrants. + guarding with palpation, no masses and no rebound Extremities: No clubbing, No cyanosis, No edema, Capillary Refill Less than 3 Seconds Skin: No rashes, No breakdown Musculoskeletal: No Tenderness to Palpation of Joints or Extremities Neurological: Cranial nerves II-XII grossly intact, Neuro grossly intact Psych/Mental Status: Appropriate, Anxious Vital Signs Temp Pulse Resp BP Pulse Ox 97.6 F L 50 L 16 158/99 H 95 09/04/18 00:09 09/04/18 02:29 09/04/18 02:29 09/04/18 02:29 09/04/18 02:29 Oxygen Delivery Method Room Air Weight: 247 lb 5.738 oz Body Mass Index (BMI) 33.5 Laboratory Tests Past 24 Hrs 09/04/18 09/04/18 00:34 00:34 WBC 8.1 RBC 4.84 Hgb 13.9 Hct 41.1 MCV 84.9 MCH 28.7 MCHC 33.8 RDW 13.4 RDW Differential 41.4 Plt Count 315 MPV 10.5 Immature Gran % (Auto) 0.400 Neut % (Auto) 67.0 Lymph % (Auto) 18.2 L [place] % (Auto) 7.3 Eos % (Auto) 6.9 H Baso % (Auto) 0.2 Absolute Neuts (auto) 5.4 Absolute Lymphs (auto) 1.48 Total Counted Not Reportable Sodium 139 Potassium 3.2 L Chloride 104 Carbon Dioxide 25.0 Anion Gap 10 BUN 9 Creatinine 0.94 Estim Creat Clear Calc 128.42 Est GFR (MDRD) Af Amer 122 Est GFR (MDRD) Non-Af 101 BUN/Creatinine Ratio 9.6 L Glucose 87 Calcium 8.8 Total Bilirubin 0.70 AST 19 ALT 29 Alkaline Phosphatase 64 Total Protein 7.9 Albumin 3.4 Globulin 4.5 H Albumin/Globulin Ratio 0.8 L Lipase 161 Assessment/Plan All Active Problems (Last Updated 08/28/18 @ 21:47 by Roxi Weiss MD) Diverticulitis (Acute) Colonic diverticular abscess (Acute) Hypokalemia (Acute) Impressions 1. Colonic diverticular abscess 2. Diverticulitis 3. Bipolar disorder 4. Posttraumatic stress disorder 5. Tobacco abuse 6. Hypokalemia Keep the patient n.p.o. tonight because of nausea/vomiting and possibility of percutaneous drainage in the a.m. by Dr. Burciaga Consult [facility] to participate in management and for recommendations Continue Cipro and metronidazole intravenously Pain medication has been ordered Protonix 40 mg IV daily for GI prophylaxis SCDs for DVT prophylaxis-hold Lovenox until we determine if he is to have a percutaneous drainage of the abscess today in radiology Tobacco cessation advised and also weight loss hydrate and supplement potassium recheck a BMP and mag at 1300 today Code Visit Inpatient E&M: 78442 Init Hosp L3
[2018-09-04] MEDS: Ciprofloxacin 400 MG/200 ML BAG 200 MG IV ×2 (03:59→23:11)
[2018-09-04] MEDS: proMETHazine 25 MG/ML Syringe 12.5 MG IV ×4 (07:24→21:30)
--- NOTE | 2018-09-04 07:36 | PCM.PN.HOSP ---
Patient Problems: Active and Suspected Problems (Last Reviewed 09/04/18 @ 02:53 by Vika Finch DO) Colonic diverticular abscess (Acute) Hypokalemia (Acute) Subjective: Patient with continued generalized abdominal pain in addition to nausea but no recent emesis. He states that his nausea has improved with Phenergan and his pain in addition has improved with recent IV pain regimen. Discussed current status and he is amenable to IR drainage of the abscess per surgery recommendation. Patient denies fevers, chills, chest pain or dyspnea. Objective: Physical Examination: General: awake, alert, oriented x 3 and cooperative, laying in bed, notes pain improved w/ recent regimen. Skin: normal color, turgor, no icterus, cyanosis. HEENT: AT/NC, EOMI, PERRLA, mildly dry MM. Lungs: Diminished BS BL bases, no rales, ronchi or wheezing. Heart: Regular rate and rhythm; no gallop, rub audible. Abdomen: soft, diffusely TTP, ND, mildly decreased BS. Extremities: no cyanosis, clubbing, or edema. Neurological: patient awake, alert, oriented x 3; cognitive function intact; pupils equally reactive to light and accomodation; cranial nerves II-XII grossly normal, moving all 4 extremities, no focal deficits, strength moderately globally decreased secondary to acute presentation. Psychiatric: affect appears fatigued, no evidence acute anxiety or depression. Vitals/I&O's: Vital Signs Temp Pulse Resp BP Pulse Ox 97.9 F 55 L 16 135/79 H 95 09/04/18 07:16 09/04/18 07:20 09/04/18 07:20 09/04/18 07:16 09/04/18 07:20 Oxygen Delivery Method Room Air Weight: 247 lb 3 oz Body Mass Index (BMI) 33.5 Intake and Output for Last 24 Hours 09/02/18 09/03/18 09/04/18 23:59 23:59 23:59 Intake Total 425 / 425 Balance 425 / 425 Laboratory Results 09/04/18 00:34: WBC 8.1, RBC 4.84, Hgb 13.9, Hct 41.1, MCV 84.9, MCH 28.7, MCHC 33.8, RDW 13.4, RDW Differential 41.4, Plt Count 315, MPV 10.5, Immature Gran % (Auto) 0.400, Neut % (Auto) 67.0, Lymph % (Auto) 18.2 L, [place] % (Auto) 7.3, Eos % (Auto) 6.9 H, Baso % (Auto) 0.2, Absolute Neuts (auto) 5.4, Absolute Lymphs (auto) 1.48, Total Counted Not Reportable 09/04/18 00:34: Sodium 139, Potassium 3.2 L, Chloride 104, Carbon Dioxide 25.0, Anion Gap 10, BUN 9, Creatinine 0.94, Estim Creat Clear Calc 128.42, Est GFR (MDRD) Af Amer 122, Est GFR (MDRD) Non-Af 101, BUN/Creatinine Ratio 9.6 L, Glucose 87, Calcium 8.8, Total Bilirubin 0.70, AST 19, ALT 29, Alkaline Phosphatase 64, Total Protein 7.9, Albumin 3.4, Globulin 4.5 H, Albumin/Globulin Ratio 0.8 L, Lipase 161 Current Medications Acetaminophen (Tylenol) 1,000 mg PO Q8H PRN PRN PRN Reason: pain or temp >101.9 Enoxaparin Sodium (Lovenox) 40 mg SC DAILY@1000 JULIA Hydromorphone HCl (Dilaudid Inj) 1 mg IV Q3H PRN PRN PRN Reason: SEVERE PAIN (6-10/10) Last Admin: 09/04/18 07:24 Dose: 1 mg Ciprofloxacin (Cipro) 400 mg in 200 mls @ 200 mls/hr IV Q12 [facility] Last Admin: 09/04/18 03:59 Dose: 200 mls/hr Potassium Chloride/Sodium Chloride () 1,000 mls @ 125 mls/hr IV .Q8H [facility] Last Admin: 09/04/18 03:32 Dose: 125 mls/hr Metronidazole (Flagyl) 500 mg in 100 mls @ 100 mls/hr IV Q8 [facility] Last Admin: 09/04/18 05:08 Dose: 100 mls/hr Pantoprazole Sodium 40 mg/ (Sodium Chloride) 110 mls @ 330 mls/hr IV Q24 [facility] Magnesium Hydroxide (Milk Of Magnesia) 30 ml PO DAILY PRN PRN PRN Reason: Constipation Nutritional Formula (Lactose Free) (Ensure Clear) 120 ml PO 4X/DAY [facility] Last Admin: 09/04/18 07:24 Dose: Not Given Promethazine HCl (Phenergan) 12.5 mg IV Q4H PRN PRN PRN Reason: NAUSEA/VOMITING Last Admin: 09/04/18 07:24 Dose: 12.5 mg Sodium Chloride () 5 - 15 ml IV UD PRN PRN Reason: SALINE FLUSH Medical Necessity - Tobacco Use Smoking Status: Current every day smoker Tobacco Use: Cigarettes Assessment/Plan All Active Problems (Last Reviewed 09/04/18 @ 02:53 by Vika Finch DO) Diverticulitis (Acute) Colonic diverticular abscess (Acute) Hypokalemia (Acute) The patient is a 28 y/o M w/ PMHx: Obesity, Tobacco use, GERD, recently diagnosed Diverticulitis w/ microperforation discharged on 09/02/18 who re-presents to the [facility] ED on 09/04/18 with recurrently worsened diffuse abdominal pain, nausea, emesis over the last 24 hours. (1) Recent Acute Sigmoid Diverticulitis w/ Microperforation now w/ Abscess formation: CT A/P w/ acute sigmoid diverticulitis with a 4 x 3 cm abscess formation between large bowel in the midline just above the urinary bladder. Afebrile upon presentation, CBC with WBC 8.1, Hgb 13.9, platelets 315 without market shift. Admitted to [place], maintained on hydration, monitor I&Os, maintain NPO status w/ bowel rest, IV PPI, anti-emetics, pain regimen PRN. Planned IR drainage abscess if able. Coags pending. Surgery consulted and following. (2) Hypokalemia: Admission K+ 3.2, supplementation given, repeat level in AM. (3) Tobacco Abuse: Encouraged cessation, inpatient consultation per RT, NR if desired. (5) Obesity: Advise both lifestyle and diet changes. (6) GERD: IV PPI. (7) Bipolar disorder, ADHD, Explosive disorder: Not on treatment, given GI upset will defer initiation of treatment, patient has follow-up with his therapist. (8) DVT Prophylaxis: SCDs, holding lovenox for planned IR drainage abscess.
--- NOTE | 2018-09-04 07:52 | CT_ITS ---
PROCEDURE: CT DIRECTED ABSCESS DRAINAGE, PERITONEAL DATE OF EXAMINATION: August 31, 2018. INDICATION: Male, 28 years old. Possible focal abscess in the pelvis. PHYSICIAN: Chaka Burciaga M.D. CONSENT: Written informed consent was obtained having explained the risks, benefits and alternatives in detail with the patient who accepted the risks and agreed to proceed. Laboratory review and clinical assessment was performed. CONSCIOUS SEDATION PROTOCOL: The Drugs used were: 3 mg Versed, IV., and 75 mg Fentanyl, IV. The sedation time was: 25 minutes. Conscious sedation was started at 12:08 PM and terminate at 12:33 PM. The conscious sedation protocol was independently monitored. RADIATION DOSAGE (If Supplied By Facility): CTDIvol = ( 16 ) mGy, DLP = ( 587.53 ) mGycm TECHNIQUE: CT sections were made through the abdomen and pelvis revealing an abscess in the mid pelvis. The skin surface was prepped and draped in a sterile fashion. Puncture of this collection was performed utilizing an 18-gauge Chiba needle. No fluid was aspirated. This may represent a phlegmon rather than an abscess at this time. Follow-up is recommended. CT/CT Guidance Abscess Drg w/Cath IMPRESSION: 1. CT directed drainage of a fluid collection using CT image guidance and image documentation as described. 2. Conscious Sedation protocol utilized with independent monitoring Electronically Signed: Chaka Burciaga MD at 13:40 EST Tel [phone], Service support ,
--- NOTE | 2018-09-04 08:23 | PCM.PN.SRG ---
Patient Problems: Active and Suspected Problems (Last Reviewed 09/04/18 @ 02:53 by Vika Finch DO) Colonic diverticular abscess (Acute) Hypokalemia (Acute) Subjective: Patient states that his pain got worse last night 07/09, he had been on clears using Motrin for pain and taking his antibiotics. Patient states his pain found mainly in the right lower quadrant more than in the left. Patient also admits to have some nausea and vomiting. CT abdomen pelvis does show a 4 x 3 cm abscess superior to the bladder. - Physical Exam General: Alert, Oriented x3, Cooperative, No apparent distress Cardiovascular: Regular rate Abdomen: Soft, Non-Distended, Tender - RLQ>suprapubic/LLQ Extremities: No clubbing, No cyanosis, No edema Neurological: Cranial nerves II-XII grossly intact Vital Signs Temp Pulse Resp BP Pulse Ox 97.9 F 55 L 16 135/79 H 95 09/04/18 07:16 09/04/18 07:20 09/04/18 07:20 09/04/18 07:16 09/04/18 07:20 Oxygen Delivery Method Room Air Weight: 247 lb 3 oz Body Mass Index (BMI) 33.5 Intake and Output for Last 24 Hours 09/02/18 09/03/18 09/04/18 23:59 23:59 23:59 Intake Total 425 / 425 Balance 425 / 425 Laboratory Tests Past 24 Hrs 09/04/18 09/04/18 00:34 00:34 WBC 8.1 RBC 4.84 Hgb 13.9 Hct 41.1 MCV 84.9 MCH 28.7 MCHC 33.8 RDW 13.4 RDW Differential 41.4 Plt Count 315 MPV 10.5 Immature Gran % (Auto) 0.400 Neut % (Auto) 67.0 Lymph % (Auto) 18.2 L [place] % (Auto) 7.3 Eos % (Auto) 6.9 H Baso % (Auto) 0.2 Absolute Neuts (auto) 5.4 Absolute Lymphs (auto) 1.48 Total Counted Not Reportable Sodium 139 Potassium 3.2 L Chloride 104 Carbon Dioxide 25.0 Anion Gap 10 BUN 9 Creatinine 0.94 Estim Creat Clear Calc 128.42 Est GFR (MDRD) Af Amer 122 Est GFR (MDRD) Non-Af 101 BUN/Creatinine Ratio 9.6 L Glucose 87 Calcium 8.8 Total Bilirubin 0.70 AST 19 ALT 29 Alkaline Phosphatase 64 Total Protein 7.9 Albumin 3.4 Globulin 4.5 H Albumin/Globulin Ratio 0.8 L Lipase 161 Medical Necessity - Tobacco Use Smoking Status: Current every day smoker Tobacco Use: Cigarettes Assessment/Plan All Active Problems (Last Reviewed 09/04/18 @ 02:53 by Vika Finch DO) Diverticulitis (Acute) Colonic diverticular abscess (Acute) Hypokalemia (Acute) 20-year-old male with diverticular abscess, history of psych disorders-bipolar, PTSD, anxiety, ADHD, intermittent explosive disorder 1. Diverticular abscess?will plan for an IR drain. Plan to keep patient n.p.o./IV fluids until patient is pain-free okay for sips. Continue IV antibiotics. We will plan for repeat CAT scan in about 4 days. 2. Continue pain control Roxi Weiss M.D. Pager: [phone] [facility] [address] [place] [address], Outpatient [place], [address] [place] [address] Office: [phone] Code Visit Inpatient E&M: [id number] Subs Hosp L2
--- NOTE | 2018-09-04 08:28 | PN.SURG_ITS ---
Patient Problems: Active and Suspected Problems (Last Reviewed 09/04/18 @ 02:53 by Vika Finch DO) Colonic diverticular abscess (Acute) Hypokalemia (Acute) Subjective: Patient states that his pain got worse last night 07/09, he had been on clears using Motrin for pain and taking his antibiotics. Patient states his pain found mainly in the right lower quadrant more than in the left. Patient also admits to have some nausea and vomiting. CT abdomen pelvis does show a 4 x 3 cm abscess superior to the bladder. - Physical Exam General: Alert, Oriented x3, Cooperative, No apparent distress Cardiovascular: Regular rate Abdomen: Soft, Non-Distended, Tender - RLQ>suprapubic/LLQ Extremities: No clubbing, No cyanosis, No edema Neurological: Cranial nerves II-XII grossly intact Vital Signs Temp Pulse Resp BP Pulse Ox 97.9 F 55 L 16 135/79 H 95 09/04/18 07:16 09/04/18 07:20 09/04/18 07:20 09/04/18 07:16 09/04/18 07:20 Oxygen Delivery Method Room Air Weight: 247 lb 3 oz Body Mass Index (BMI) 33.5 Intake and Output for Last 24 Hours 09/02/18 09/03/18 09/04/18 23:59 23:59 23:59 Intake Total 425 / 425 Balance 425 / 425 Laboratory Tests Past 24 Hrs 09/04/18 09/04/18 00:34 00:34 WBC 8.1 RBC 4.84 Hgb 13.9 Hct 41.1 MCV 84.9 MCH 28.7 MCHC 33.8 RDW 13.4 RDW Differential 41.4 Plt Count 315 MPV 10.5 Immature Gran % (Auto) 0.400 Neut % (Auto) 67.0 Lymph % (Auto) 18.2 L [place] % (Auto) 7.3 Eos % (Auto) 6.9 H Baso % (Auto) 0.2 Absolute Neuts (auto) 5.4 Absolute Lymphs (auto) 1.48 Total Counted Not Reportable Sodium 139 Potassium 3.2 L Chloride 104 Carbon Dioxide 25.0 Anion Gap 10 BUN 9 Creatinine 0.94 Estim Creat Clear Calc 128.42 Est GFR (MDRD) Af Amer 122 Est GFR (MDRD) Non-Af 101 BUN/Creatinine Ratio 9.6 L Glucose 87 Calcium 8.8 Total Bilirubin 0.70 AST 19 ALT 29 Alkaline Phosphatase 64 Total Protein 7.9 Albumin 3.4 Globulin 4.5 H Albumin/Globulin Ratio 0.8 L Lipase 161 Medical Necessity - Tobacco Use Smoking Status: Current every day smoker Tobacco Use: Cigarettes Assessment/Plan All Active Problems (Last Reviewed 09/04/18 @ 02:53 by Vika Finch DO) Diverticulitis (Acute) Colonic diverticular abscess (Acute) Hypokalemia (Acute) 20-year-old male with diverticular abscess, history of psych disorders-bipolar, PTSD, anxiety, ADHD, intermittent explosive disorder 1. Diverticular abscess?will plan for an IR drain. Plan to keep patient n.p.o./IV fluids until patient is pain-free okay for sips. Continue IV antibiotics. We will plan for repeat CAT scan in about 4 days. 2. Continue pain control Roxi Weiss M.D. Pager: [phone] [facility] [address] [place] [address], Outpatient [facility], [address] [place] [address] Office: [phone] Code Visit Inpatient E&M: [id number] Subs Hosp L2
[2018-09-04 09:13] LABS: International Normalized Ratio 1.2; Prothrombin Time (Protime)PT. 15.1 SECONDS (11.7-14.9)
[2018-09-04] MEDS: Acetaminophen 500 MG Tablet 1000 MG PO (10:14)
[2018-09-04] MEDS: oxyCODONE 5 MG Tablet PO ×2 (10:14→19:13)
--- NOTE | 2018-09-04 12:01 | CASEMGMT ---
Chart review completed at this time. Patient is a readmit from 08/28-09/02/18 for diverticulitis and was lace score of 3. See RN CM Face to Face from 08/29/18. Patient returned 09/04/18 for Diverticular Abscess. Anticipate home no needs. CM will continue to follow this patient and plan for a safe discharge.
[2018-09-04] MEDS: fentaNYL 100 MCG/2 ML Ampul IV ×2 (12:08→12:28)
[2018-09-04] MEDS: Midazolam 2 MG/2 ML Syringe IV ×2 (12:08→12:28)
--- NOTE | 2018-09-04 13:54 | CHAPLAIN ---
Type of Pastoral Visit _x__ Initial Visit ___ Follow-up Visit ___ On-call Visit ___ General Patient Visit ___ Spiritual Assessment ___ Family Conference ___ Bereavement ___ Rapid Response ___ Code Blue ___ Other (describe below) Pastoral Care Referral From _x__ Patient ___ Family ___ Nurse ___ Physician ___ Carding Utility Tender ___ Application Trainer ___ Other (describe below) Sacrament/Intervention ___ Active listening ___ Anointing ___ Congregation ___ Bereavement ___ Communion ___ [place] exploration ___ ___ Life review ___ Prayer ___ Reconciliation ___ Sacrament of Sick _x__ Supportive presence ___ Wedding ___ Other (describe below) Pastoral Comments patient was seen recently in a previous admission; pt was experiencing pain and RN was attending to needs of pt; pt asked that emery grinder come at another time
[2018-09-04 14:03] LABS: Anion Gap 7 (5-15); BUN 10 mg/dL (7-18); BUN/Creat Ratio 12.5 RATIO (10-20); Calcium,Total 8.4 mg/dL (8.5-10.1); Chloride 107 mmol/L (98-107); EST Glomerular Filtration Rate 122 mL/min (>60); Est Glom Filt Rate - Afr Amer 148 mL/min (>60); Estimated Creatinine Clearance 150.89 ml/min; Glucose 75 mg/dL (74-106); Potassium 3.4 mmol/L (3.5-5.1); Sodium Level 140 mmol/L (136-145)
[2018-09-04] MEDS: LORazepam 0.5 MG Tablet PO (16:00)
[2018-09-05 02:30] VITALS: BP 163/91; PULSE 78; RESP 16; TEMP 36.7; O2SAT 97
[2018-09-05] MEDS: proMETHazine 25 MG/ML Syringe 12.5 MG IV ×4 (02:32→18:23)
[2018-09-05] MEDS: LORazepam 0.5 MG Tablet PO ×2 (02:32→19:45)
[2018-09-05] MEDS: HYDROmorphone 1 MG/ML Syringe IV ×4 (02:32→18:23)
[2018-09-05] MEDS: Acetaminophen 500 MG Tablet 1000 MG PO ×2 (06:37→19:44)
[2018-09-05] MEDS: oxyCODONE 5 MG Tablet PO (06:38)
[2018-09-05] MEDS: 0.9% NaCl Peripheral Flush Adult/Peds IV (06:46)
--- NOTE | 2018-09-05 07:17 | PN_ITS ---
Patient Problems: Active and Suspected Problems (Last Reviewed 09/04/18 @ 02:53 by Vika Finch DO) Colonic diverticular abscess (Acute) Hypokalemia (Acute) Subjective: Patient overnight with ongoing discomfort to the abdomen primarily lower quadrants but upon evaluation diffuse. Patient remains very tearful and upset regarding current status and inability to have had IR drainage placed but discussed again that findings were more consistent with inflammation. Discussed advancement of regimen with patient including addition of low-dose gabapentin, scheduled Toradol, continued oral short acting narcotic in addition to IV narcotic to which she was amenable. Patient denies any recent bowel movement but does admit to flatus. Patient denies fevers, chills, nausea, emesis, chest pain or dyspnea. Objective: Physical Examination: General: awake, alert, oriented x 3 and cooperative, laying in bed, crying, noting pain is severe and frustrated that he was able to have IR drain placement. Skin: normal color, turgor, no icterus, cyanosis. HEENT: AT/NC, EOMI, PERRLA, improved, MMM. Lungs: Diminished BS BL bases, no rales, ronchi or wheezing. Heart: Regular rate and rhythm; no gallop, rub audible. Abdomen: soft, diffusely TTP, greater bilateral lower quadrants, ND, mildly decreased BS. Extremities: no cyanosis, clubbing, or edema. Neurological: patient awake, alert, oriented x 3; cognitive function intact; pupils equally reactive to light and accomodation; cranial nerves II-XII grossly normal, moving all 4 extremities, no focal deficits, strength moderately globally decreased secondary to acute presentation. Psychiatric: affect appears strange, anxious, no acute evidence of depression. Vitals/I&O's: Vital Signs Temp Pulse Resp BP Pulse Ox 98.1 F 78 16 163/91 H 97 09/05/18 02:30 09/05/18 02:30 09/05/18 02:30 09/05/18 02:30 09/05/18 02:30 Oxygen Delivery Method [5] Room Air Oxygen Delivery Method [4] Room Air Oxygen Delivery Method [3] Room Air Oxygen Delivery Method [2] Room Air Oxygen Delivery Method [1 ( Room Air Initial Baseline)] Oxygen Delivery Method Room Air Weight: 247 lb 2.987 oz Body Mass Index (BMI) 33.5 Intake and Output for Last 24 Hours 09/03/18 09/04/18 09/05/18 23:59 23:59 23:59 Intake Total 2016 1171 / 1171 Balance 2016 1171 / 1171 Laboratory Results 09/04/18 08:58: PT 15.1 H, INR 1.2, APTT 30.0 09/04/18 13:45: Sodium 140, Potassium 3.4 L, Chloride 107, Carbon Dioxide 26.0, Anion Gap 7, BUN 10, Creatinine 0.80, Estim Creat Clear Calc 150.89, Est GFR (MDRD) Af Amer 148, Est GFR (MDRD) Non-Af 122, BUN/Creatinine Ratio 12.5, Glucose 75, Calcium 8.4 L, Magnesium 2.0 Current Medications Acetaminophen (Tylenol) 1,000 mg PO Q8H PRN PRN PRN Reason: pain or temp >101.9 Last Admin: 09/05/18 06:37 Dose: 1,000 mg Fentanyl Citrate (Sublimaze (100mcg Ampule)) 25 - 50 mcg IV UD PRN PRN Reason: PAIN Last Admin: 09/04/18 12:28 Dose: 25 mcg Hydromorphone HCl (Dilaudid Inj) 1 mg IV Q3H PRN PRN PRN Reason: SEVERE PAIN (6-10/10) Last Admin: 09/05/18 02:32 Dose: 1 mg Ciprofloxacin (Cipro) 400 mg in 200 mls @ 200 mls/hr IV Q12 [facility] Last Admin: 09/04/18 23:11 Dose: 200 mls/hr Potassium Chloride/Sodium Chloride () 1,000 mls @ 125 mls/hr IV .Q8H [facility] Last Admin: 09/05/18 06:35 Dose: Not Given Metronidazole (Flagyl) 500 mg in 100 mls @ 100 mls/hr IV Q8 [facility] Last Admin: 09/05/18 06:35 Dose: 100 mls/hr Pantoprazole Sodium 40 mg/ (Sodium Chloride) 110 mls @ 330 mls/hr IV Q24 [facility] Last Admin: 09/04/18 10:14 Dose: 330 mls/hr Sodium Chloride () 500 mls @ 15 mls/hr IV .[id number] [facility] Last Admin: 09/04/18 21:42 Dose: Not Given Ketorolac Tromethamine (Toradol) 30 mg IV Q6H PRN PRN PRN Reason: PAIN Lorazepam (Ativan) 0.5 mg PO Q6H PRN PRN PRN Reason: ANXIETY Last Admin: 09/05/18 02:32 Dose: 0.5 mg Magnesium Hydroxide (Milk Of Magnesia) 30 ml PO DAILY PRN PRN PRN Reason: Constipation Midazolam HCl (Versed) 1 - 2 mg IV UD PRN PRN Reason: SEDATION Last Admin: 09/04/18 12:28 Dose: 1 mg Nicotine (Nicoderm Cq (Pbkc)) 14 mg TRANSDERM. DAILY PRN PRN Reason: Nicotine Craving Last Admin: 09/04/18 10:14 Dose: 14 mg Nutritional Formula (Lactose Free) (Ensure Clear) 120 ml PO 4X/DAY JULIA Last Admin: 09/04/18 21:26 Dose: Not Given Oxycodone HCl (Oxyir) 5 - 10 mg PO Q4H PRN PRN PRN Reason: SEVERE PAIN (6-10/10) Last Admin: 09/05/18 06:38 Dose: 5 mg Promethazine HCl (Phenergan) 12.5 mg IV Q4H PRN PRN PRN Reason: NAUSEA/VOMITING Last Admin: 09/05/18 06:40 Dose: 12.5 mg Sodium Chloride () 5 - 15 ml IV UD PRN PRN Reason: SALINE FLUSH Last Admin: 09/05/18 06:46 Dose: 10 ml Medical Necessity - Tobacco Use Smoking Status: Current every day smoker Tobacco Use: Cigarettes Assessment/Plan All Active Problems (Last Reviewed 09/04/18 @ 02:53 by Vika Finch DO) Diverticulitis (Acute) Colonic diverticular abscess (Acute) Hypokalemia (Acute) The patient is a 28 y/o M w/ PMHx: Obesity, Tobacco use, GERD, recently diagnosed Diverticulitis w/ microperforation discharged on 09/02/18 who re-p resents to the [facility] ED on 09/04/18 with recurrently worsened diffuse abdominal pain, nausea, emesis over the last 24 hours. (1) Recent Acute Sigmoid Diverticulitis w/ Microperforation now w/ Abscess fo rmation: CT A/P w/ acute sigmoid diverticulitis with a 4 x 3 cm ? abscess formation between large bowel in the midline just above the urinary bladder. Afebrile upon presentation, CBC with WBC 8.1, Hgb 13.9, platelets 315 without market shift. Admitted to HI, maintained on hydration, monitor I&Os, maintained NPO status w/ bowel rest initialy-->transitioned to clears currently per surgery, IV PPI, anti-emetics, pain oral oxycodone and IV dilaudid regimen PRN to be able to overlap. 09/04/18 initially planned IR drainage abscess; however, further evaluation with findings more consistent with notable inflammation to the region rather than an abscess, therefore unable. Pain and anxiety contributing to his current presentation as noted, discussed with patient and surgery and will start low dose gabapenin, scheduled toradol. (2) Hypokalemia: Admission K+ 3.2, supplementation given, repeat level 09/05/18 pending. (3) Tobacco Abuse: Encouraged cessation, inpatient consultation per RT, NR if desired. (5) Obesity: Advise both lifestyle and diet changes. (6) GERD: IV PPI. (7) Bipolar disorder, ADHD, Explosive disorder: Not on treatment, given GI upset will defer initiation of treatment, given notable anxiety will place on valium with continued low dose ativan orally. Given his psychiatric disorders complicating his care, will request behavioral health evaluation while patient inpatient. Discussed with behavioral health services and they will evaluate patient today. (8) DVT Prophylaxis: SCDs, lovenox. Code Visit Inpatient E&M: [id number] [facility] Hosp L3
[2018-09-05 08:06] VITALS: BP 159/91; PULSE 59; RESP 18; RESP 19; TEMP 36.3; O2SAT 98
--- NOTE | 2018-09-05 08:38 | PN.SURG_ITS ---
Patient Problems: Active and Suspected Problems (Last Reviewed 09/04/18 @ 02:53 by Vika Finch DO) Colonic diverticular abscess (Acute) Hypokalemia (Acute) Subjective: Unable to place the IR drain due to no fluid and only inflammation, did add Toradol for patient's pain control and did discuss with Dr. Cueto who is also a dding some Klonopin and gabapentin - Physical Exam General: Alert, Oriented x3, Cooperative HEENT: Atraumatic Lungs: Normal air movement Cardiovascular: Regular rate Abdomen: Soft, Non-Distended, Tender - Mostly in the right lower quadrant and suprapubic less in the left lower quadrant, no peritoneal signs Extremities: No clubbing, No cyanosis, No edema Vital Signs Temp Pulse Resp BP Pulse Ox 97.3 F L 78 19 H 159/91 H 98 09/05/18 08:06 09/05/18 02:30 09/05/18 08:06 09/05/18 08:06 09/05/18 08:06 Oxygen Delivery Method [5] Room Air Oxygen Delivery Method [4] Room Air Oxygen Delivery Method [3] Room Air Oxygen Delivery Method [2] Room Air Oxygen Delivery Method [1 ( Room Air Initial Baseline)] Oxygen Delivery Method Room Air Weight: 247 lb 2.987 oz Body Mass Index (BMI) 33.5 Intake and Output for Last 24 Hours 09/03/18 09/04/18 09/05/18 23:59 23:59 23:59 Intake Total 2016 1171 / 1171 Balance 2016 1171 / 1171 Laboratory Tests Past 24 Hrs 09/04/18 09/04/18 08:58 13:45 PT 15.1 H INR 1.2 APTT 30.0 Sodium 140 Potassium 3.4 L Chloride 107 Carbon Dioxide 26.0 Anion Gap 7 BUN 10 Creatinine 0.80 Estim Creat Clear Calc 150.89 Est GFR (MDRD) Af Amer 148 Est GFR (MDRD) Non-Af 122 BUN/Creatinine Ratio 12.5 Glucose 75 Calcium 8.4 L Magnesium 2.0 Medical Necessity - Tobacco Use Smoking Status: Current every day smoker Tobacco Use: Cigarettes Assessment/Plan All Active Problems (Last Reviewed 09/04/18 @ 02:53 by Vika Finch DO) Diverticulitis (Acute) Colonic diverticular abscess (Acute) Hypokalemia (Acute) 20-year-old male with diverticular abscess, history of psych disorders-bipolar, PTSD, anxiety, ADHD, intermittent explosive disorder 1. We will continue sips and chips, plan for repeat CAT scan on Saturday. 2. Continue pain control Roxi Weiss M.D. Pager: [phone] [facility] [address] [place] [address], [facility], [address] [place] [address] Office: [phone]
[2018-09-05] MEDS: clonazePAM 1 MG Tablet PO ×2 (09:15→21:17)
[2018-09-05] MEDS: Gabapentin 100 MG Capsule PO ×3 (09:15→17:06)
[2018-09-05] MEDS: Ketorolac 30 MG/ML Syringe IV ×4 (09:15→23:47)
[2018-09-05 09:51] LABS: Absolute Lymphocyte Count 1.84 X10^3/ul (0.83-4.51); Absolute Neutrophil Count 7.8 X10^3/uL (2.0-7.7); Basophil# 0.04 X10^3/uL; Basophil% 0.4 % (0-1); Differential Indicated SCAN CRITERIA MET; Eosinophil# 0.44 X10^3/uL; Eosinophils% 4.1 % (0-5); Hematocrit 43.3 % (40-54); Lymphocyte # 1.84 X10^3/ul (4.0); Lymphocyte % 17.2 % (19-41); Mean Corp Hgb Conc 34.6 g/gl (32-36); Mean Corpuscular Hgb 29.8 pg (27.0-32.0); Mean Corpuscular Volume 86.1 fL (80-94); Mean Platelet Vol. 10.7 fl (6.2-12.0); Monocyte# 0.49 X10^3/uL; Monocyte% 4.6 % (0-10); Neutrophil # 7.83 X10^3/uL (2.7-7.7); Neutrophil % 73.2 % (47-70); POSITIVE COUNT NO; POSITIVE DIFFERENTIAL NO; POSITIVE MORPHOLOGY YES; Platelet Count 343 K/mm3 (150-450); RBC Distribution Width CV 13.5 % (11.6-14.6); RBC Distribution Width SD 41.4 fl (35.1-43.9); Red Blood Count 5.03 M/mm3 (4.6-6.2); White Blood Count 10.7 K/mm3 (4.4-11.0)
[2018-09-05 09:55] LABS: Anion Gap 13 (5-15); BUN 8 mg/dL (7-18); BUN/Creat Ratio 10.6 RATIO (10-20); Calcium,Total 8.6 mg/dL (8.5-10.1); Chloride 103 mmol/L (98-107); Creatinine, Serum 0.75 mg/dL (0.70-1.30); EST Glomerular Filtration Rate 130 mL/min (>60); Est Glom Filt Rate - Afr Amer 158 mL/min (>60); Estimated Creatinine Clearance 160.95 ml/min; Glucose 71 mg/dL (74-106); Potassium 3.6 mmol/L (3.5-5.1); Sodium Level 137 mmol/L (136-145)
[2018-09-05] MEDS: Enoxaparin 40 MG/0.4 ML Syringe SC (10:00)
[2018-09-05] MEDS: Ciprofloxacin 400 MG/200 ML BAG 200 MG IV ×2 (10:04→21:17)
[2018-09-05 12:28] VITALS: BP 150/98; PULSE 68; RESP 16; TEMP 36.4; O2SAT 96
--- NOTE | 2018-09-05 15:02 | BH.NOTE ---
BH: Inpatient Note - Notes Behavioral Health Inpatient Note: 09/05/18 15:02 Referral to [facility] Behavioral Health by Dr. Cueto due to symptoms related to anxiety and bipolar. Met with pt, pt's , and pt's mother in his room. Pt is cooperative. Smiling. Denies any suicidal ideations, plan, or intent. Reports hx of Bipolar, PTSD, and IED. Currently linked with psychologist at [facility] who he sees as needed. Pt reports that he has been in counseling since age 4 and does not find it beneficial. Describes his depression as mild. Reports erratic moods and racing thoughts however believes that he can manage these symptoms mainly through distractions (video games, going outside). When asked about depression, crying spells, and significant anxiety while on medical floor pt reports that these symptoms are related to his PTSD. Reports due to being in residential for several years situations where he is confined and isolated such as being in the hospital room cause negative thinking and flashbacks which result in symptoms. Also believes that pain related to medical issues exacerbated his PTSD symptoms. According to pt, his , and his mother he manages his emotions and bipolar appropriately while at home. Family denies any concerns regarding pt's mental health at home. Pt is honest in that he has little motivation to receive counseling or psychiatric services on a consistent basis. Encouraged pt to follow up more consistently with counseling to help manage medical and emotional stressors. Pt was given a list of resources in the area. He reports that he will [facility] with [facility] an as needed basis.
[2018-09-05 16:30] VITALS: BP 140/95; PULSE 60; RESP 18; TEMP 36.3; O2SAT 98
[2018-09-05 19:49] VITALS: BP 169/94; PULSE 56; RESP 16; TEMP 36.6; O2SAT 100
[2018-09-05 20:16] LABS: Mucous, Urine 0 SEEN /hpf (<or=2+); Red Blood Cells-Urine 0 SEEN /hpf (0-5); Squamous Epithelial Cells - UA 0 SEEN /hpf (0-5)
[2018-09-05 20:18] LABS: Color, Urine Yellow (Yellow); Glucose, Dipstick Normal (Normal); Leukocyte Esterase-Dipstick 25 /ul (Negative); Nitrite-Dipstick Negative (Negative); Occult Blood-Urine Negative /ul (Negative); Protein-Dipstick Negative (Negative); Specific Gravity, Urine 1.015 (1.002-1.030); Urine Bilirubin Dipstick Negative (Negative); Urine Clarity Clear (Clear); Urine Urobilinogen Normal (Normal); Urine pH 6.5 (5.0 - 8.0)
[2018-09-05 20:22] LABS: Ketone-Dipstick 150 mg/dl (Negative)
[2018-09-05 20:26] LABS: Bacteria RARE /hpf (None Seen); White Blood Cells 0-5 SEEN /hpf (0-5)
[2018-09-06 01:50] VITALS: BP 148/89; PULSE 55; RESP 16; TEMP 36.9; O2SAT 99
[2018-09-06] MEDS: proMETHazine 25 MG/ML Syringe 12.5 MG IV ×2 (04:20→09:12)
[2018-09-06] MEDS: HYDROmorphone 1 MG/ML Syringe IV ×2 (04:20→09:15)
[2018-09-06] MEDS: Ketorolac 30 MG/ML Syringe IV (06:23)
[2018-09-06] MEDS: Enoxaparin 40 MG/0.4 ML Syringe SC (06:23)
[2018-09-06 07:02] LABS: Absolute Lymphocyte Count 1.69 X10^3/ul (0.83-4.51); Absolute Neutrophil Count 5.2 X10^3/uL (2.0-7.7); Basophil# 0.02 X10^3/uL; Basophil% 0.3 % (0-1); Eosinophil# 0.39 X10^3/uL; Hematocrit 42.2 % (40-54); Hemoglobin 14.2 g/dl (13.0-16.5); Lymphocyte # 1.69 X10^3/ul (4.0); Lymphocyte % 21.8 % (19-41); Mean Corp Hgb Conc 33.6 g/gl (32-36); Mean Corpuscular Hgb 28.9 pg (27.0-32.0); Mean Corpuscular Volume 85.9 fL (80-94); Mean Platelet Vol. 10.8 fl (6.2-12.0); Monocyte# 0.43 X10^3/uL; Monocyte% 5.5 % (0-10); Neutrophil # 5.21 X10^3/uL (2.7-7.7); Platelet Count 314 K/mm3 (150-450); RBC Distribution Width CV 13.4 % (11.6-14.6); RBC Distribution Width SD 41.2 fl (35.1-43.9); Red Blood Count 4.91 M/mm3 (4.6-6.2); White Blood Count 7.8 K/mm3 (4.4-11.0)
[2018-09-06 07:03] LABS: POSITIVE COUNT NO; POSITIVE DIFFERENTIAL NO; POSITIVE MORPHOLOGY NO
--- NOTE | 2018-09-06 07:35 | PCM.PN.SRG ---
Patient Problems: Active and Suspected Problems (Last Reviewed 09/04/18 @ 02:53 by Vika Finch DO) Colonic diverticular abscess (Acute) Hypokalemia (Acute) Subjective: Patient states that abdominal pain has improved however he is still needing some pain meds but he says it is less - Physical Exam General: Alert, Oriented x3, Cooperative, No apparent distress HEENT: Atraumatic Lungs: Normal air movement Cardiovascular: Regular rate Abdomen: Soft, Non-Distended, Tender - Tender in the right lower quadrant greater than left lower quadrant no peritoneal signs Extremities: No clubbing, No cyanosis, No edema Vital Signs Temp Pulse Resp BP Pulse Ox 98.4 F 55 L 16 148/89 H 99 09/06/18 01:50 09/06/18 01:50 09/06/18 01:50 09/06/18 01:50 09/06/18 01:50 Oxygen Delivery Method [5] Room Air Oxygen Delivery Method [4] Room Air Oxygen Delivery Method [3] Room Air Oxygen Delivery Method [2] Room Air Oxygen Delivery Method [1 ( Room Air Initial Baseline)] Oxygen Delivery Method Room Air Weight: 247 lb 2.987 oz Body Mass Index (BMI) 33.5 Intake and Output for Last 24 Hours 09/04/18 09/05/18 09/06/18 23:59 23:59 23:59 Intake Total 2016 / 3761 807 / 807 Balance 2016 / 3761 807 / 807 Laboratory Tests Past 24 Hrs 09/05/18 09/05/18 09/05/18 09:23 09:23 19:41 WBC 10.7 RBC 5.03 Hgb 15.0 Hct 43.3 MCV 86.1 MCH 29.8 MCHC 34.6 RDW 13.5 RDW Differential 41.4 Plt Count 343 MPV 10.7 Immature Gran % (Auto) 0.500 Neut % (Auto) 73.2 H Lymph % (Auto) 17.2 L [place] % (Auto) 4.6 Eos % (Auto) 4.1 Baso % (Auto) 0.4 Absolute Neuts (auto) 7.8 H Absolute Lymphs (auto) 1.84 Total Counted Not Reportable Sodium 137 Potassium 3.6 Chloride 103 Carbon Dioxide 21.0 Anion Gap 13 BUN 8 Creatinine 0.75 Estim Creat Clear Calc 160.95 Est GFR (MDRD) Af Amer 158 Est GFR (MDRD) Non-Af 130 BUN/Creatinine Ratio 10.6 Glucose 71 L Calcium 8.6 Urine Color Yellow Urine Clarity Clear Urine pH 6.5 Ur Specific [place] 1.015 Urine Protein Negative Urine Glucose (UA) Normal Urine Ketones 150 H Urine Occult Blood Negative Urine Nitrite Negative Urine Bilirubin Negative Urine Urobilinogen Normal Ur Leukocyte Esterase 25 H Urine RBC 0 SEEN Urine WBC 0-5 SEEN Ur Squamous Epith Cells 0 SEEN Urine Bacteria RARE Urine Mucus 0 SEEN 09/06/18 09/06/18 06:33 06:33 WBC 7.8 RBC 4.91 Hgb 14.2 Hct 42.2 MCV 85.9 MCH 28.9 MCHC 33.6 RDW 13.4 RDW Differential 41.2 Plt Count 314 MPV 10.8 Immature Gran % (Auto) 0.400 Neut % (Auto) 67.0 Lymph % (Auto) 21.8 [place] % (Auto) 5.5 Eos % (Auto) 5.0 Baso % (Auto) 0.3 Absolute Neuts (auto) 5.2 Absolute Lymphs (auto) 1.69 Total Counted Not Reportable Sodium Pending Potassium Pending Chloride Pending Carbon Dioxide Pending Anion Gap Pending BUN Pending Creatinine Pending Estim Creat Clear Calc Est GFR (MDRD) Af Amer Pending Est GFR (MDRD) Non-Af Pending BUN/Creatinine Ratio Pending Glucose Pending Calcium Pending Urine Color Urine Clarity Urine pH Ur Specific [place] Urine Protein Urine Glucose (UA) Urine Ketones Urine Occult Blood Urine Nitrite Urine Bilirubin Urine Urobilinogen Ur Leukocyte Esterase Urine RBC Urine WBC Ur Squamous Epith Cells Urine Bacteria Urine Mucus Medical Necessity - Tobacco Use Smoking Status: Current every day smoker Tobacco Use: Cigarettes Assessment/Plan All Active Problems (Last Reviewed 09/04/18 @ 02:53 by Vika Finch DO) Diverticulitis (Acute) Colonic diverticular abscess (Acute) Hypokalemia (Acute) 20-year-old male with diverticular abscess, history of psych disorders-bipolar, PTSD, anxiety, ADHD, intermittent explosive disorder 1. We will continue sips and chips, plan for repeat CAT scan on Saturday. 2. Continue pain control Roxi Weiss M.D. Pager: [phone] [facility] [address] [place] [address], Outpatient [facility], [address] [place] [address] Office: [phone] Code Visit Inpatient E&M: [id number] Subs Hosp L1
[2018-09-06 07:45] LABS: Anion Gap 11 (5-15); BUN 10 mg/dL (7-18); BUN/Creat Ratio 13.8 RATIO (10-20); Calcium,Total 8.6 mg/dL (8.5-10.1); Chloride 106 mmol/L (98-107); Creatinine, Serum 0.72 mg/dL (0.70-1.30); EST Glomerular Filtration Rate 137 mL/min (>60); Est Glom Filt Rate - Afr Amer 165 mL/min (>60); Estimated Creatinine Clearance 167.65 ml/min; Glucose 61 mg/dL (74-106); Sodium Level 139 mmol/L (136-145)
--- NOTE | 2018-09-06 09:06 | PCM.PN.HOSP ---
Patient Problems: Active and Suspected Problems (Last Reviewed 09/04/18 @ 02:53 by Vika Finch DO) Colonic diverticular abscess (Acute) Hypokalemia (Acute) Subjective: Patient appearance markedly improved this morning, sitting up quickly without assistance, no grimacing, notes abdomen is feeling notably improved. Patient also yesterday towards the end of day was witnessed by nursing staff to be up and talking with family, laughing with no obvious evidence of discomfort. Patient very eager for diet advancement and willing to have discontinuation of IV pain regimen to see if pain improvement with limitation to oral regimen only with possible further diet transition per surgery discretion if tolerated. Patient notes flatus ongoing, no recent bowel movement. Patient denies fevers, chills, nausea, emesis, abdominal pain, chest pain or dyspnea. Objective: Physical Examination: General: awake, alert, oriented x 3 and cooperative, seated upright in bed in no apparent distress, well-appearing this morning. Skin: normal color, turgor, no icterus, cyanosis. HEENT: AT/NC, EOMI, PERRLA, MMM. Lungs: CTA bilaterally, moderate effort, mild decrease BL bases, no rales, ronchi or wheezing. Heart: regular rate and rhythm; no gallop, rub audible. Abdomen: soft, minimal discomfort with palpation, markedly improved since prior, nondistended, normalized bowel sounds. Extremities: no cyanosis, clubbing, or edema. Neurological: patient awake, alert, oriented x 3; cognitive function intact; pupils equally reactive to light and accomodation; cranial nerves II-XII grossly normal, moving all 4 extremities, no focal deficits, strength improved, mildly globally decreased. Psychiatric: affect appears normal, not anxious or tearful this AM as has been prior, no acute evidence of depressive feelings. Vitals/I&O's: Vital Signs Temp Pulse Resp BP Pulse Ox 98.4 F 55 L 16 148/89 H 99 09/06/18 01:50 09/06/18 01:50 09/06/18 01:50 09/06/18 01:50 09/06/18 01:50 Oxygen Delivery Method [5] Room Air Oxygen Delivery Method [4] Room Air Oxygen Delivery Method [3] Room Air Oxygen Delivery Method [2] Room Air Oxygen Delivery Method [1 ( Room Air Initial Baseline)] Oxygen Delivery Method Room Air Weight: 247 lb 2.987 oz Body Mass Index (BMI) 33.5 Intake and Output for Last 24 Hours 09/04/18 09/05/18 09/06/18 23:59 23:59 23:59 Intake Total 2016 3762 / 3762 807 / 807 Balance 2016 3762 / 3762 807 / 807 Laboratory Results 09/05/18 09:23: WBC 10.7, RBC 5.03, Hgb 15.0, Hct 43.3, MCV 86.1, MCH 29.8, MCHC 34.6, RDW 13.5, RDW Differential 41.4, Plt Count 343, MPV 10.7, Immature Gran % (Auto) 0.500, Neut % (Auto) 73.2 H, Lymph % (Auto) 17.2 L, [place] % (Auto) 4.6, Eos % (Auto) 4.1, Baso % (Auto) 0.4, Absolute Neuts (auto) 7.8 H, Absolute Lymphs (auto) 1.84, Total Counted Not Reportable 09/05/18 09:23: Sodium 137, Potassium 3.6, Chloride 103, Carbon Dioxide 21.0, Anion Gap 13, BUN 8, Creatinine 0.75, Estim Creat Clear Calc 160.95, Est GFR (MDRD) Af Amer 158, Est GFR (MDRD) Non-Af 130, BUN/Creatinine Ratio 10.6, Glucose 71 L, Calcium 8.6 09/05/18 19:41: Urine Color Yellow, Urine Clarity Clear, Urine pH 6.5, Ur Specific [place] 1.015, Urine Protein Negative, Urine Glucose (UA) Normal, Urine Ketones 150 H, Urine Occult Blood Negative, Urine Nitrite Negative, Urine Bilirubin Negative, Urine Urobilinogen Normal, Ur Leukocyte Esterase 25 H, Urine RBC 0 SEEN, Urine WBC 0-5 SEEN, Ur Squamous Epith Cells 0 SEEN, Urine Bacteria RARE, Urine Mucus 0 SEEN 09/06/18 06:33: WBC 7.8, RBC 4.91, Hgb 14.2, Hct 42.2, MCV 85.9, MCH 28.9, MCHC 33.6, RDW 13.4, RDW Differential 41.2, Plt Count 314, MPV 10.8, Immature Gran % (Auto) 0.400, Neut % (Auto) 67.0, Lymph % (Auto) 21.8, [place] % (Auto) 5.5, Eos % (Auto) 5.0, Baso % (Auto) 0.3, Absolute Neuts (auto) 5.2, Absolute Lymphs (auto) 1.69, Total Counted Not Reportable 09/06/18 06:33: Sodium 139, Potassium 4.0, Chloride 106, Carbon Dioxide 22.0, Anion Gap 11, BUN 10, Creatinine 0.72, Estim Creat Clear Calc 167.65, Est GFR (MDRD) Af Amer 165, Est GFR (MDRD) Non-Af 137, BUN/Creatinine Ratio 13.8, Glucose 61 L, Calcium 8.6 Current Medications Acetaminophen (Tylenol) 1,000 mg PO Q8H PRN PRN PRN Reason: pain or temp >101.9 Last Admin: 09/05/18 19:44 Dose: 1,000 mg Clonazepam (Klonopin) 1 mg PO BID COUNTS INCLUDE 234 BEDS AT THE [facility] Last Admin: 09/05/18 21:17 Dose: 1 mg Enoxaparin Sodium (Lovenox) 40 mg SC DAILY@0600 COUNTS INCLUDE 234 BEDS AT THE [facility] Last Admin: 09/06/18 06:23 Dose: 40 mg Fentanyl Citrate (Sublimaze (100mcg Ampule)) 25 - 50 mcg IV UD PRN PRN Reason: PAIN Last Admin: 09/04/18 12:28 Dose: 25 mcg Gabapentin (Neurontin) 100 mg PO TIDCM COUNTS INCLUDE 234 BEDS AT THE [facility] Last Admin: 09/05/18 17:06 Dose: 100 mg Hydromorphone HCl (Dilaudid Inj) 1 mg IV Q3H PRN PRN PRN Reason: SEVERE PAIN (6-10/10) Last Admin: 09/06/18 04:20 Dose: 1 mg Ciprofloxacin (Cipro) 400 mg in 200 mls @ 200 mls/hr IV Q12 COUNTS INCLUDE 234 BEDS AT THE [facility] Last Admin: 09/05/18 21:17 Dose: 200 mls/hr Potassium Chloride/Sodium Chloride () 1,000 mls @ 125 mls/hr IV .Q8H COUNTS INCLUDE 234 BEDS AT THE [facility] Last Admin: 09/06/18 04:20 Dose: 125 mls/hr Metronidazole (Flagyl) 500 mg in 100 mls @ 100 mls/hr IV Q8 COUNTS INCLUDE 234 BEDS AT THE [facility] Last Admin: 09/06/18 06:23 Dose: 100 mls/hr Pantoprazole Sodium 40 mg/ (Sodium Chloride) 110 mls @ 330 mls/hr IV Q24 COUNTS INCLUDE 234 BEDS AT THE [facility] Last Admin: 09/05/18 09:14 Dose: 330 mls/hr Sodium Chloride () 500 mls @ 15 mls/hr IV .[id number] COUNTS INCLUDE 234 BEDS AT THE [facility] Last Admin: 09/06/18 05:17 Dose: Not Given Lorazepam (Ativan) 0.5 mg PO Q6H PRN PRN PRN Reason: ANXIETY Last Admin: 09/05/18 19:45 Dose: 0.5 mg Magnesium Hydroxide (Milk Of Magnesia) 30 ml PO DAILY PRN PRN PRN Reason: Constipation Midazolam HCl (Versed) 1 - 2 mg IV UD PRN PRN Reason: SEDATION Last Admin: 09/04/18 12:28 Dose: 1 mg Nicotine (Nicoderm Cq (Pbkc)) 14 mg TRANSDERM. DAILY PRN PRN Reason: Nicotine Craving Last Admin: 09/04/18 10:14 Dose: 14 mg Nutritional Formula (Lactose Free) (Ensure Clear) 120 ml PO 4X/DAY COUNTS INCLUDE 234 BEDS AT THE [facility] Last Admin: 09/05/18 21:13 Dose: Not Given Oxycodone HCl (Oxyir) 5 - 10 mg PO Q4H PRN PRN PRN Reason: SEVERE PAIN (6-10/10) Last Admin: 09/05/18 06:38 Dose: 5 mg Promethazine HCl (Phenergan) 12.5 mg IV Q4H PRN PRN PRN Reason: NAUSEA/VOMITING Last Admin: 09/06/18 04:20 Dose: 12.5 mg Sodium Chloride () 5 - 15 ml IV UD PRN PRN Reason: SALINE FLUSH Last Admin: 09/05/18 06:46 Dose: 10 ml Medical Necessity - Tobacco Use Smoking Status: Current every day smoker Tobacco Use: Cigarettes Assessment/Plan All Active Problems (Last Reviewed 09/04/18 @ 02:53 by Vika Finch DO) Diverticulitis (Acute) Colonic diverticular abscess (Acute) Hypokalemia (Acute) The patient is a 28 y/o M w/ PMHx: Obesity, Tobacco use, GERD, recently diagnosed Diverticulitis w/ microperforation discharged on 09/02/18 who re-presents to the [facility] ED on 09/04/18 with recurrently worsened diffuse abdominal pain, nausea, emesis over the last 24 hours. (1) Recent Acute Sigmoid Diverticulitis w/ Microperforation now w/ Abscess formation: CT A/P w/ acute sigmoid diverticulitis with a 4 x 3 cm ? abscess formation between large bowel in the midline just above the urinary bladder. Afebrile upon presentation, CBC with WBC 8.1, Hgb 13.9, platelets 315 without market shift. 09/04/18 initially planned IR drainage abscess; however, further evaluation with findings more consistent with notable inflammation to the region rather than an abscess, therefore unable. Initially NPO status, transitioned to clears, given tolerance, IVFs 09/06/18 discontinued. Continue to monitor I&Os, maintained NPO status w/ bowel rest initially-->transitioned to clears currently per surgery, IV PPI-->oral PPI, anti-emetics, pain oral oxycodone and IV dilaudid regimen PRN-->09/06/18 transition to oral only w/ planned diet advancement if lessened symptoms on only oral regimen. Pain and anxiety contributing to his current presentation as noted, discussed with patient and surgery and started low dose gabapenin, low dose BID klonopin, PRN low dose ativan, scheduled toradol w/ notable improvement. (2) Hypokalemia: Admission K+ 3.2, supplementation given, repeat level 09/06/18 4.0. (3) Tobacco Abuse: Encouraged cessation, inpatient consultation per RT, NR if desired. (5) Obesity: Advise both lifestyle and diet changes. (6) GERD: IV PPI-->oral PPI. (7) Bipolar disorder, ADHD, Explosive disorder: Not on treatment, given GI upset will defer initiation of treatment, given notable anxiety will place on klonopin with continued low dose ativan orally. Given his psychiatric disorders complicating his care, requested behavioral health evaluation while patient inpatient with evaluation performed and patient reticent to any interventions at this time as well as decreased willingness to continue follow-up regularly but willingness only with as needed status. Patient and mother also states that patient is much improved when he is on the hospital situation and behavior is more stable. (8) DVT Prophylaxis: SCDs, lovenox. Code Visit Inpatient E&M: 87008 Subs Hosp L2
[2018-09-06 09:09] VITALS: BP 146/98; PULSE 59; RESP 18; TEMP 36.3; O2SAT 99
[2018-09-06] MEDS: Gabapentin 100 MG Capsule PO ×3 (09:12→17:21)
[2018-09-06] MEDS: 0.9% NaCl Peripheral Flush Adult/Peds IV (09:13)
[2018-09-06] MEDS: Ciprofloxacin 400 MG/200 ML BAG 200 MG IV ×2 (09:24→22:10)
[2018-09-06] MEDS: clonazePAM 1 MG Tablet PO ×2 (09:25→20:59)
[2018-09-06] MEDS: Pantoprazole Sodium 20 MG Tablet PO ×2 (11:55→22:10)
[2018-09-06 14:12] VITALS: BP 159/88; PULSE 69; RESP 18; TEMP 36.6; O2SAT 98
[2018-09-06] MEDS: oxyCODONE 5 MG Tablet PO ×2 (14:17→20:59)
[2018-09-06 20:57] VITALS: BP 141/76; PULSE 77; RESP 16; TEMP 36.6; O2SAT 95
[2018-09-07 02:15] VITALS: BP 126/65; PULSE 65; RESP 16; TEMP 36.7; O2SAT 96
--- NOTE | 2018-09-07 02:15 | NUR.TO.PHY ---
Pt admitted to this RN that he had a bite of a cheeseburger yesterday, 09/06, that his mother gave him. Education on food choices provided. Pt states the first thing he is eating when he is ok to have a regular diet is a pizza.
[2018-09-07] MEDS: Enoxaparin 40 MG/0.4 ML Syringe SC (05:31)
[2018-09-07 05:57] LABS: Absolute Lymphocyte Count 2.27 X10^3/ul (0.83-4.51); Absolute Neutrophil Count 6.3 X10^3/uL (2.0-7.7); Basophil# 0.03 X10^3/uL; Basophil% 0.3 % (0-1); Eosinophil# 0.63 X10^3/uL; Eosinophils% 6.5 % (0-5); Hematocrit 44.5 % (40-54); Hemoglobin 15.2 g/dl (13.0-16.5); Lymphocyte # 2.27 X10^3/ul (4.0); Lymphocyte % 23.4 % (19-41); Mean Corp Hgb Conc 34.2 g/gl (32-36); Mean Corpuscular Hgb 29.2 pg (27.0-32.0); Mean Corpuscular Volume 85.4 fL (80-94); Mean Platelet Vol. 10.9 fl (6.2-12.0); Monocyte% 4.1 % (0-10); Neutrophil # 6.31 X10^3/uL (2.7-7.7); Neutrophil % 65.2 % (47-70); Platelet Count 371 K/mm3 (150-450); RBC Distribution Width CV 13.6 % (11.6-14.6); RBC Distribution Width SD 42.2 fl (35.1-43.9); Red Blood Count 5.21 M/mm3 (4.6-6.2); White Blood Count 9.7 K/mm3 (4.4-11.0)
[2018-09-07 05:58] LABS: POSITIVE COUNT NO; POSITIVE DIFFERENTIAL NO; POSITIVE MORPHOLOGY NO
[2018-09-07 06:21] LABS: Anion Gap 9 (5-15); BUN 10 mg/dL (7-18); BUN/Creat Ratio 13.7 RATIO (10-20); Calcium,Total 8.7 mg/dL (8.5-10.1); Chloride 108 mmol/L (98-107); Creatinine, Serum 0.73 mg/dL (0.70-1.30); EST Glomerular Filtration Rate 135 mL/min (>60); Est Glom Filt Rate - Afr Amer 164 mL/min (>60); Estimated Creatinine Clearance 165.36 ml/min; Glucose 80 mg/dL (74-106); Potassium 3.7 mmol/L (3.5-5.1); Sodium Level 139 mmol/L (136-145)
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
[2018-09-07 08:15] VITALS: BP 136/92; PULSE 66; RESP 18; TEMP 36.1; O2SAT 99
--- NOTE | 2018-09-07 08:29 | PCM.PN.SRG ---
Patient Problems: Active and Suspected Problems (Last Reviewed 09/04/18 @ 02:53 by Vika Fnich DO) Colonic diverticular abscess (Acute) Hypokalemia (Acute) Subjective: Patient denies any abdominal pain, did admit to splitting a cheeseburger with his mother yesterday even though he was only on a clear diet. Denies any nausea or vomiting and has not pain meds since yesterday evening - Physical Exam General: Alert, Oriented x3, Cooperative, No apparent distress Abdomen: Soft, Non Tender - No peritoneal signs, Non-Distended Extremities: No clubbing, No cyanosis, No edema Vital Signs Temp Pulse Resp BP Pulse Ox 98.1 F 65 16 126/65 H 96 09/07/18 02:15 09/07/18 02:15 09/07/18 02:15 09/07/18 02:15 09/07/18 02:15 Oxygen Delivery Method [5] Room Air Oxygen Delivery Method [4] Room Air Oxygen Delivery Method [3] Room Air Oxygen Delivery Method [2] Room Air Oxygen Delivery Method [1 ( Room Air Initial Baseline)] Oxygen Delivery Method Room Air Weight: 247 lb 2.987 oz Body Mass Index (BMI) 33.5 Intake and Output for Last 24 Hours 09/05/18 09/06/18 09/07/18 23:59 23:59 23:59 Intake Total 3762 / 3762 2163 / 2163 913 / 913 Output Total 6 / 6 Balance 3762 / 3762 2163 / 2163 907 / 907 Laboratory Tests Past 24 Hrs 09/07/18 09/07/18 05:38 05:38 WBC 9.7 RBC 5.21 Hgb 15.2 Hct 44.5 MCV 85.4 MCH 29.2 MCHC 34.2 RDW 13.6 RDW Differential 42.2 Plt Count 371 MPV 10.9 Immature Gran % (Auto) 0.500 Neut % (Auto) 65.2 Lymph % (Auto) 23.4 [place] % (Auto) 4.1 Eos % (Auto) 6.5 H Baso % (Auto) 0.3 Absolute Neuts (auto) 6.3 Absolute Lymphs (auto) 2.27 Total Counted Not Reportable Sodium 139 Potassium 3.7 Chloride 108 H Carbon Dioxide 22.0 Anion Gap 9 BUN 10 Creatinine 0.73 Estim Creat Clear Calc 165.36 Est GFR (MDRD) Af Amer 164 Est GFR (MDRD) Non-Af 135 BUN/Creatinine Ratio 13.7 Glucose 80 Calcium 8.7 Medical Necessity - Tobacco Use Smoking Status: Current every day smoker Tobacco Use: Cigarettes Assessment/Plan All Active Problems (Last Reviewed 09/04/18 @ 02:53 by Vika Finch DO) Diverticulitis (Acute) Colonic diverticular abscess (Acute) Hypokalemia (Acute) 20-year-old male with diverticular abscess, history of psych disorders-bipolar, PTSD, anxiety, ADHD, intermittent explosive disorder 1. Okay for full liquids if tolerates folds okay for low fiber for supper again still plan for a CT abdomen pelvis with p.o. and IV contrast on Saturday. If everything looks okay possibly DC on Saturday. Discussed with the patient importance of following dietary instructions to allow his colon a chance to heal and prevent emergency surgery. Patient states that he understood and would not do that again. 2. Continue pain control Roxi Weiss M.D. Pager: [phone] [facility] [address] [place] [address], [facility], [address] [place] [address] Office: [phone] Code Visit Inpatient E&M: 24716 Subs Hosp L1
--- NOTE | 2018-09-07 08:32 | PN.SURG_ITS ---
Patient Problems: Active and Suspected Problems (Last Reviewed 09/04/18 @ 02:53 by Vika Finch DO) Colonic diverticular abscess (Acute) Hypokalemia (Acute) Subjective: Patient denies any abdominal pain, did admit to splitting a cheeseburger with his mother yesterday even though he was only on a clear diet. Denies any nausea or vomiting and has not pain meds since yesterday evening - Physical Exam General: Alert, Oriented x3, Cooperative, No apparent distress Abdomen: Soft, Non Tender - No peritoneal signs, Non-Distended Extremities: No clubbing, No cyanosis, No edema Vital Signs Temp Pulse Resp BP Pulse Ox 98.1 F 65 16 126/65 H 96 09/07/18 02:15 09/07/18 02:15 09/07/18 02:15 09/07/18 02:15 09/07/18 02:15 Oxygen Delivery Method [5] Room Air Oxygen Delivery Method [4] Room Air Oxygen Delivery Method [3] Room Air Oxygen Delivery Method [2] Room Air Oxygen Delivery Method [1 ( Room Air Initial Baseline)] Oxygen Delivery Method Room Air Weight: 247 lb 2.987 oz Body Mass Index (BMI) 33.5 Intake and Output for Last 24 Hours 09/05/18 09/06/18 09/07/18 23:59 23:59 23:59 Intake Total 3762 / 3762 2163 / 2163 913 / 913 Output Total 6 / 6 Balance 3762 / 3762 2163 / 2163 907 / 907 Laboratory Tests Past 24 Hrs 09/07/18 09/07/18 05:38 05:38 WBC 9.7 RBC 5.21 Hgb 15.2 Hct 44.5 MCV 85.4 MCH 29.2 MCHC 34.2 RDW 13.6 RDW Differential 42.2 Plt Count 371 MPV 10.9 Immature Gran % (Auto) 0.500 Neut % (Auto) 65.2 Lymph % (Auto) 23.4 [place] % (Auto) 4.1 Eos % (Auto) 6.5 H Baso % (Auto) 0.3 Absolute Neuts (auto) 6.3 Absolute Lymphs (auto) 2.27 Total Counted Not Reportable Sodium 139 Potassium 3.7 Chloride 108 H Carbon Dioxide 22.0 Anion Gap 9 BUN 10 Creatinine 0.73 Estim Creat Clear Calc 165.36 Est GFR (MDRD) Af Amer 164 Est GFR (MDRD) Non-Af 135 BUN/Creatinine Ratio 13.7 Glucose 80 Calcium 8.7 Medical Necessity - Tobacco Use Smoking Status: Current every day smoker Tobacco Use: Cigarettes Assessment/Plan All Active Problems (Last Reviewed 09/04/18 @ 02:53 by Vika Finch DO) Diverticulitis (Acute) Colonic diverticular abscess (Acute) Hypokalemia (Acute) 20-year-old male with diverticular abscess, history of psych disorders-bipolar, PTSD, anxiety, ADHD, intermittent explosive disorder 1. Okay for full liquids if tolerates folds okay for low fiber for supper again still plan for a CT abdomen pelvis with p.o. and IV contrast on Saturday. If everything looks okay possibly DC on Saturday. Discussed with the patient importance of following dietary instructions to allow his colon a chance to heal and prevent emergency surgery. Patient states that he understood and would not do that again. 2. Continue pain control Roxi Weiss M.D. Pager: [phone] [facility] [address] [place] [address], [facility], [address] [place] [address] Office: [phone] Code Visit Inpatient E&M: 61601 Subs Hosp L1
[2018-09-07] MEDS: Pantoprazole Sodium 20 MG Tablet PO ×2 (09:17→21:20)
[2018-09-07] MEDS: Gabapentin 100 MG Capsule PO ×3 (09:17→17:09)
[2018-09-07] MEDS: clonazePAM 1 MG Tablet PO ×2 (09:20→21:20)
[2018-09-07] MEDS: Ciprofloxacin 400 MG/200 ML BAG 200 MG IV ×2 (09:20→21:19)
[2018-09-07] MEDS: LORazepam 0.5 MG Tablet PO ×2 (12:12→18:41)
[2018-09-07 14:40] VITALS: BP 129/89; PULSE 82; RESP 18; TEMP 36.6; O2SAT 98
[2018-09-07 20:04] VITALS: BP 142/91; PULSE 84; RESP 18; TEMP 36.6; O2SAT 98
[2018-09-08 02:08] VITALS: BP 132/85; PULSE 86; RESP 18; TEMP 37; O2SAT 98
[2018-09-08] MEDS: LORazepam 0.5 MG Tablet PO (02:16)
[2018-09-08] MEDS: Enoxaparin 40 MG/0.4 ML Syringe SC (05:34)
[2018-09-08 06:08] LABS: Absolute Lymphocyte Count 2.02 X10^3/ul (0.83-4.51); Basophil# 0.02 X10^3/uL; Basophil% 0.2 % (0-1); Eosinophils% 6.5 % (0-5); Hematocrit 45.5 % (40-54); Hemoglobin 15.2 g/dl (13.0-16.5); Lymphocyte # 2.02 X10^3/ul (4.0); Lymphocyte % 21.9 % (19-41); Mean Corp Hgb Conc 33.4 g/gl (32-36); Mean Corpuscular Hgb 28.8 pg (27.0-32.0); Mean Corpuscular Volume 86.2 fL (80-94); Mean Platelet Vol. 11.3 fl (6.2-12.0); Monocyte# 0.54 X10^3/uL; Monocyte% 5.8 % (0-10); Neutrophil # 5.99 X10^3/uL (2.7-7.7); Neutrophil % 64.8 % (47-70); Platelet Count 362 K/mm3 (150-450); RBC Distribution Width CV 13.8 % (11.6-14.6); RBC Distribution Width SD 43.3 fl (35.1-43.9); Red Blood Count 5.28 M/mm3 (4.6-6.2); White Blood Count 9.2 K/mm3 (4.4-11.0)
[2018-09-08 06:14] LABS: POSITIVE COUNT NO; POSITIVE DIFFERENTIAL NO; POSITIVE MORPHOLOGY NO
[2018-09-08 06:34] LABS: Anion Gap 10 (5-15); BUN 11 mg/dL (7-18); BUN/Creat Ratio 12.4 RATIO (10-20); Calcium,Total 8.9 mg/dL (8.5-10.1); Chloride 107 mmol/L (98-107); Creatinine, Serum 0.88 mg/dL (0.70-1.30); EST Glomerular Filtration Rate 109 mL/min (>60); Est Glom Filt Rate - Afr Amer 131 mL/min (>60); Estimated Creatinine Clearance 137.17 ml/min; Glucose 108 mg/dL (74-106); Potassium 3.7 mmol/L (3.5-5.1); Sodium Level 141 mmol/L (136-145)
--- NOTE | 2018-09-08 06:51 | PN.SURG_ITS ---
Patient Problems: Active and Suspected Problems (Last Reviewed 09/04/18 @ 02:53 by Vika Finch DO) Colonic diverticular abscess (Acute) Hypokalemia (Acute) Subjective: Patient tolerated low fiber supper and still denies any abdominal pain no pain meds other than gabapentin were given, and CT abdomen pelvis this morning - Physical Exam General: Alert, Oriented x3, Cooperative, No apparent distress HEENT: Atraumatic Cardiovascular: Regular rate Abdomen: Soft, Non Tender - No peritoneal signs, Non-Distended Vital Signs Temp Pulse Resp BP Pulse Ox 98.6 F 86 18 132/85 H 98 09/08/18 02:08 09/08/18 02:08 09/08/18 02:08 09/08/18 02:08 09/08/18 02:08 Oxygen Delivery Method [5] Room Air Oxygen Delivery Method [4] Room Air Oxygen Delivery Method [3] Room Air Oxygen Delivery Method [2] Room Air Oxygen Delivery Method [1 ( Room Air Initial Baseline)] Oxygen Delivery Method Room Air Weight: 247 lb 2.987 oz Body Mass Index (BMI) 33.5 Intake and Output for Last 24 Hours 09/06/18 09/07/18 09/08/18 23:59 23:59 23:59 Intake Total 2163 / 2163 2733 / 2733 1355 / 1355 Output Total 6 / 6 Balance 2163 / 2163 2727 / 2727 1355 / 1355 Laboratory Tests Past 24 Hrs 09/08/18 09/08/18 05:27 05:47 WBC 9.2 RBC 5.28 Hgb 15.2 Hct 45.5 MCV 86.2 MCH 28.8 MCHC 33.4 RDW 13.8 RDW Differential 43.3 Plt Count 362 MPV 11.3 Immature Gran % (Auto) 0.800 Neut % (Auto) 64.8 Lymph % (Auto) 21.9 [place] % (Auto) 5.8 Eos % (Auto) 6.5 H Baso % (Auto) 0.2 Absolute Neuts (auto) 6.0 Absolute Lymphs (auto) 2.02 Total Counted Not Reportable Sodium 141 Potassium 3.7 Chloride 107 Carbon Dioxide 24.0 Anion Gap 10 BUN 11 Creatinine 0.88 Estim Creat Clear Calc 137.17 Est GFR (MDRD) Af Amer 131 Est GFR (MDRD) Non-Af 109 BUN/Creatinine Ratio 12.4 Glucose 108 H Calcium 8.9 Medical Necessity - Tobacco Use Smoking Status: Current every day smoker Tobacco Use: Cigarettes Assessment/Plan All Active Problems (Last Reviewed 09/04/18 @ 02:53 by Vika Finch DO) Diverticulitis (Acute) Colonic diverticular abscess (Acute) Hypokalemia (Acute) 20-year-old male with diverticular abscess, history of psych disorders-bipolar, PTSD, anxiety, ADHD, intermittent explosive disorder 1. Okay for low fiber diet. Await CT abdomen pelvis if it looks improve which I believe it should okay to DC home on a low fiber diet for approximately 6 weeks. Also complete a total of 14 days of antibiotics from this admission. 2. Continue pain control 3. Upon discharge follow-up in the office in 1-2 weeks. Roxi Weiss M.D. Pager: [phone] [facility] [address] [place] [address], [facility], [address] [place] [address] Office: [phone]
--- NOTE | 2018-09-08 07:30 | CT_ITS ---
STUDY: CT ABDOMEN AND PELVIS WITH CONTRAST REASON FOR EXAM: Male, 28 years old. History of diverticulitis with abscess formation. RADIATION DOSAGE (If Supplied By Facility): CTDIvol = ( 13.3 ) mGy, DLP = ( 1322.26 ) mGycm TECHNIQUE: Transaxial images were obtained from the dome of the diaphragm to the symphysis pubis without oral contrast. 100 ml of Isovue 300 contrast was administered. Sagittal and coronal images were reconstructed. Individualized dose optimization techniques were used for this CT. COMPARISON: Comparison is made with prior study dated September 04, 2018. FINDINGS: The visualized lung bases are unremarkable. The visualized portions of the heart are within normal limits. Normal liver. Normal gallbladder and extrahepatic biliary system. Normal spleen. Normal pancreas. Normal bilateral adrenal glands. Normal right kidney. Normal left kidney. Normal visualized stomach. Normal small intestine. There are multiple colonic diverticula consistent with diverticulosis. The previously seen abscess in the pelvis adjacent to the mesenteric side of the sigmoid colon has decreased in size. It presently measures 2.5 cm x 2.1 cm. The inflammatory changes in the surrounding mesenteric fat has improved as well. The appendix is visualized and appears normal. Normal abdominal aorta. Normal inferior vena cava. There is borderline retroperitoneal lymphadenopathy with enlarged nodes no greater than 10mm in the short axis diameter. Normal urinary bladder. Normal abdominal wall. Normal osseous structures. CT/Abdomen/Pelvis WITH Contrast IMPRESSION: Decrease inflammatory changes within the sigmoid mesentery as well as decreased size of the previously seen abscess cavity presently measuring 2.5 cm x 2.1 cm. Electronically Signed: Chaka Burciaga MD at 8:27 EST Tel [phone], Service support ,
[2018-09-08 07:57] VITALS: BP 147/83; PULSE 78; RESP 18; TEMP 36.4; O2SAT 95
[2018-09-08] MEDS: 0.9% NaCl Peripheral Flush Adult/Peds IV (08:01)
[2018-09-08] MEDS: Gabapentin 100 MG Capsule PO (08:01)
--- NOTE | 2018-09-08 09:04 | DCINST_ITS ---
- Discharge Diagnoses Current Active Problems: Current Active and Chronic Problems (Last Reviewed 09/04/18 @ 02:53 by Vika Finch DO) Colonic diverticular abscess (Acute) Hypokalemia (Acute) Tobacco dependence (Chronic) GERD (gastroesophageal reflux disease) (Chronic) Obesity (Chronic) Reason(s) for Visit for Discharge Instructions: Diverticular abscess You will use the following diet at home:: Regular Your food should be the consistency of: Regular Your liquids should be the consistency of: Regular/Thin Discharge Activity: Return to Normal Activity Call your doctor if you observe: Fever of 101 or Higher Additional Instructions: Complete your antibiotics. Follow-up with Dr. Whitfield within 1-2 weeks. You will require a repeat CT scan of your abdomen and pelvis after you see her. Follow-up with your primary care doctor and psychiatrist within 1-2 weeks. Continue to monitor for fevers, worsening abdominal pain. Call your surgeon if abdominal pain, nausea or vomiting develops. Allergies/Adverse Reactions: Allergies dextromethorphan HBr [From NyQuil] Allergy (Verified 09/04/18 00:14) Anaphylaxis doxylamine [From NyQuil] Allergy (Verified 09/04/18 00:14) Anaphylaxis poison mimi extract [Poison Mimi Extract] Allergy (Verified 09/04/18 00:14) Anaphylaxis pseudoephedrine HCl [From NyQuil] Allergy (Verified 09/04/18 00:14) Anaphylaxis venom-honey bee [bee venom (honey bee)] Allergy (Verified 09/04/18 00:14) Anaphylaxis MUSHROOMS Allergy (Uncoded 09/04/18 00:14) Anaphylaxis Medications to take at Discharge Calcium Carbonate [Tums] 1,000 mg PO PRN PRN 08/28/18 Acetaminophen [Tylenol Extra Strength] 1,000 mg PO Q8H PRN #0 09/02/18 proMETHazine tablet [Phenergan tablet] 25 mg PO Q6H PRN PRN #20 tablet 09/02/18 Pantoprazole Sodium [Protonix] 20 mg PO BID 09/04/18 Ciprofloxacin [Cipro] 500 mg PO BID #28 tablet 09/08/18 Clonazepam [Klonopin] 1 mg PO BID #20 tablet 09/08/18 Ensure Clear 120 ml PO 4X/DAY #120 liquid 09/08/18 Gabapentin [Neurontin] 100 mg PO TIDCM #30 capsule 09/08/18 Metronidazole [Flagyl] 500 mg PO TIDCM #42 tablet 09/08/18 The following prescriptions were given: Ciprofloxacin [Cipro] 500 mg PO BID #28 tablet Clonazepam [Klonopin] 1 mg PO BID #20 tablet Gabapentin [Neurontin] 100 mg PO TIDCM #30 capsule Metronidazole [Flagyl] 500 mg PO TIDCM #42 tablet Ensure Clear 120 ml PO 4X/DAY #120 liquid Orders to be completed after discharge: Basic Metabolic Profile (BMP) Time Frame: 1 Week, Location: Laboratory CBC W/Diff, Automated Time Frame: 1 Week, Location: Laboratory Primary Care Physician: Berna Wren NP-C [Primary Care Provider] - Please follow up with your Primary Care Physician in: within 1- 2 week Test Results: Test results from this visit will be discussed in further detail at your follow- up appointment, if applicable. Please Follow Up With: Roxi Weiss MD When: within 1-2 weeks When: Follow-up with your psychiatrist within 1-2 weeks Proposed Discharge Date: 09/08/18
--- NOTE | 2018-09-08 09:05 | PCM.DC.SUM ---
Discharge Date and Diagnosis Date of Admission: 09/04/18 Date of Discharge: 09/08/18 - Primary Discharge Diagnosis Active and Suspected Problems (Last Reviewed 09/04/18 @ 02:53 by Vika Finch DO) Colonic diverticular abscess (Acute) Hypokalemia (Acute) Nicotine dependence Anxiety disorder - Secondary Discharge Diagnosis Chronic Problems (Last Reviewed 09/04/18 @ 02:53 by Vika Finch DO) IBS (irritable bowel syndrome) (Chronic) Hemorrhoids (Chronic) Tobacco dependence (Chronic) GERD (gastroesophageal reflux disease) (Chronic) Obesity (Chronic) PTSD (post-traumatic stress disorder) (Chronic) Bipolar disorder (Chronic) Hospital Course and Treatment Imaging Results: 09/08/18 07:30 CT Abd [Abdomen/Pelvis WITH Contrast] [CT] Timed Clinical Impression(s) from Imaging Studies Abdomen/Pelvis CT 09/04/18 00:15 IMPRESSION: Acute sigmoid diverticulitis with a 4 x 3 cm abscess formation in between loops of large bowel in the midline just above the urinary bladder. This was not present in the last examination of August 28, 2000 8T Electronically Signed: Renny Girard MD at 1:50 EST Tel , Service support , Abscess Drainage CT 09/04/18 07:52 IMPRESSION: 1. CT directed drainage of a fluid collection using CT image guidance and image documentation as described. 2. Conscious Sedation protocol utilized with independent monitoring Electronically Signed: Chaka Burciaga MD at 13:40 EST Tel [phone], Service support , Abdomen/Pelvis CT 09/08/18 07:30 IMPRESSION: Decrease inflammatory changes within the sigmoid mesentery as well as decreased size of the previously seen abscess cavity presently measuring 2.5 cm x 2.1 cm. Electronically Signed: Chaka Burciaga MD at 8:27 EST Tel [phone], Service support , General surgery Operations: None Procedures: None Summary of Care Provided: The patient is a 28 year old M with past medical history of obesity, nicotine dependency, GERD, bipolar disorder, recently diagnosed with diverticulitis with microperforation and discharged on 09/02/18 with antibiotics. Patient was readmitted 2 days later with worsening abdominal pain, nausea, bilious emesis. Repeat CT scan of the abdomen and pelvis showed acute sigmoid diverticulosis with a 4 cm x 3 cm abscess located in between loops of large bowel. Surgery was consulted. IR drain placement attempted but no fluid was aspirated. Patient was managed conservatively with bowel rest, IV antibiotics, IV fluids and pain control. Patient continued to improve. In the course of the hospital stay, patient was seen by behavioral health, tired on gabapentin and also on Klonopin, encouraged to follow-up with mental health or outpatient counseling or psychiatry services. On the day of discharge, patient had repeat CT scan of the abdomen and pelvis that showed improvement in the inflammation of the sigmoid colon and reduction in the size of the abscess to about 2 x 2. Patient was discharged and will follow up in the outpatient in 1-2 weeks. He was discharged on 14 days of Cipro and Flagyl. Subjective: On the day of discharge, patient was seen and examined. Denied any new complaints. Able to tolerate regular diet. - Physical Exam General: Alert, Oriented x3, Cooperative, No apparent distress HEENT: Atraumatic, PERRLA, EOMI, Normocephalic Neck: Supple, No JVD, Negative Carotid Bruits Lungs: Clear to auscultation, Normal air movement Cardiovascular: Regular rate, Regular Rhythm, Normal S1, Normal S2, No murmurs Abdomen: Bowel Sounds Present, Soft, Non Tender, Non-Distended, No Hepato-splenomegaly Extremities: No edema Skin: No rashes, No breakdown Musculoskeletal: No Tenderness to Palpation of Joints or Extremities Lymphatic: No Cervical, Supraclavicular, or Inguinal Adenopathy Neurological: Cranial nerves II-XII grossly intact, Neuro grossly intact Psych/Mental Status: Normal Affect, Appropriate Vital Signs Temp Pulse Resp BP Pulse Ox 97.5 F L 78 18 147/83 H 95 09/08/18 07:57 09/08/18 07:57 09/08/18 07:57 09/08/18 07:57 09/08/18 07:57 Oxygen Delivery Method [5] Room Air Oxygen Delivery Method [4] Room Air Oxygen Delivery Method [3] Room Air Oxygen Delivery Method [2] Room Air Oxygen Delivery Method [1 ( Room Air Initial Baseline)] Oxygen Delivery Method Room Air Weight: 112.122 kg Body Mass Index (BMI) 33.5 Intake and Output for Last 24 Hours 09/06/18 09/07/18 09/08/18 23:59 23:59 23:59 Intake Total 2163 / 2163 2733 / 2733 1355 / 1355 Output Total / Balance 2163 / 2163 2727 / 2727 1355 / 1355 Laboratory Tests Past 24 Hrs 09/08/18 09/08/18 05:27 05:47 WBC 9.2 RBC 5.28 Hgb 15.2 Hct 45.5 MCV 86.2 MCH 28.8 MCHC 33.4 RDW 13.8 RDW Differential 43.3 Plt Count 362 MPV 11.3 Immature Gran % (Auto) 0.800 Neut % (Auto) 64.8 Lymph % (Auto) 21.9 [place] % (Auto) 5.8 Eos % (Auto) 6.5 H Baso % (Auto) 0.2 Absolute Neuts (auto) 6.0 Absolute Lymphs (auto) 2.02 Total Counted Not Reportable Sodium 141 Potassium 3.7 Chloride 107 Carbon Dioxide 24.0 Anion Gap 10 BUN 11 Creatinine 0.88 Estim Creat Clear Calc 137.17 Est GFR (MDRD) Af Amer 131 Est GFR (MDRD) Non-Af 109 BUN/Creatinine Ratio 12.4 Glucose 108 H Calcium 8.9 Discharge Diet: No Restrictions Discharge Activity: Return to Normal Activity Call your doctor if you observe: Fever of 101 or Higher Home Medications: Medications to take at Discharge Calcium Carbonate [Tums] 1,000 mg PO PRN PRN 08/28/18 Acetaminophen [Tylenol Extra Strength] 1,000 mg PO Q8H PRN #0 09/02/18 proMETHazine tablet [Phenergan tablet] 25 mg PO Q6H PRN PRN #20 tablet 09/02/18 Pantoprazole Sodium [Protonix] 20 mg PO BID 09/04/18 Ciprofloxacin [Cipro] 500 mg PO BID #28 tablet 09/08/18 Clonazepam [Klonopin] 1 mg PO BID #20 tablet 09/08/18 Ensure Clear 120 ml PO 4X/DAY #120 liquid 09/08/18 Gabapentin [Neurontin] 100 mg PO TIDCM #30 capsule 09/08/18 Metronidazole [Flagyl] 500 mg PO TIDCM #42 tablet 09/08/18 Following Prescrptions Were Given to Patient: Ciprofloxacin [Cipro] 500 mg PO BID #28 tablet Clonazepam [Klonopin] 1 mg PO BID #20 tablet Gabapentin [Neurontin] 100 mg PO TIDCM #30 capsule Metronidazole [Flagyl] 500 mg PO TIDCM #42 tablet Ensure Clear 120 ml PO 4X/DAY #120 liquid Other Amb Orders: Basic Metabolic Profile (BMP) Time Frame: 1 Week, Location: Laboratory CBC W/Diff, Automated Time Frame: 1 Week, Location: Laboratory Primary Care Physician: Berna Wren NP-C [Primary Care Provider] - Please follow up with your Primary Care Physician in: within 1- 2 week Please Follow Up With: Roxi Weiss MD When: within 1-2 weeks When: Follow-up with your psychiatrist within 1-2 weeks Disposition: Home Minutes spent on discharge:: 45 Patient Condition:: Stable Medical Necessity - Tobacco Use Smoking Status: Current every day smoker Tobacco Use: Cigarettes Meaningful Use Info Meaningful Use Diagnoses (Choose all that apply): None applicable Code Visit Inpatient E&M: 05345 Disch Hosp
--- NOTE | 2018-09-08 09:56 | PCA ---
this litigation legal secretary didnt make apointments for patient before left even though he was a strata of 3. Patient already had discharge papers and an escort picking him up before i realized my numbers was changed.
--- NOTE | 2018-09-10 15:04 | CASEMGMT ---
JUANA CAMARA Discharge Follow-Up Phone Call. LACE: 10 Strata: 3 Discharge Date: 09-08-18 Adm Dx: Diverticular Abscess. Attempted discharge follow-up phone call. No answer. Message left for pt to return call to [facility] RN Mckay CAMARA, if he would have any questions, concerns, needs re: discharge instructions. Phone number provided. Henrique GIVENS RN, CM
== END 2018-09-08 09:53 | disposition home or self-care (01) | DRG 392 ==
LOC: ED 00:46 → MS3 02:38
PROVIDERS: Family Medicine; Surgery; Admitting Provider Internal Medicine; Emergency Provider Emergency Medicine; Family Provider Nurse Practitioner Family; PCP Nurse Practitioner Family; Visit Provider Internal Medicine
DX: K57.20 Diverticulitis of large intestine with perforation and abscess without bleeding (principal); E87.6 Hypokalemia; K64.9 Unspecified hemorrhoids; F17.210 Nicotine dependence, cigarettes, uncomplicated; E66.9 Obesity, unspecified; Z68.33 Body mass index [BMI] 33.0-33.9, adult; K21.9 Gastro-esophageal reflux disease without esophagitis; F31.9 Bipolar disorder, unspecified; K58.9 Irritable bowel syndrome, unspecified; F43.10 Post-traumatic stress disorder, unspecified
CPT/HCPCS: 36415; 74177; 75989; 80048; 80053; 81001; 83690; 83735; 85025; 85610; 85730; 97802; 97803; 99157; 99285; J7030; J7040; Q9967; A4216; J0744; J2405

== ENCOUNTER 2018-09-09 15:30 | Emergency (ER) | payer MEDICARE, SELFPAY ==
[2018-09-04 02:54] VITALS: BMI 33.5
[2018-09-09 15:31] VITALS: BP 126/102; PULSE 92; RESP 18; TEMP 36.5; O2SAT 99; BMI 34.1
--- NOTE | 2018-09-09 15:49 | CT_ITS ---
STUDY: CT ABDOMEN AND PELVIS WITH CONTRAST REASON FOR EXAM: Male, 28 years old. Previous diverticular abscess. RADIATION DOSAGE (If Supplied By Facility): CTDIvol = ( 18.72 ) mGy, DLP = ( 1396.76 ) mGycm TECHNIQUE: Transaxial images were obtained from the dome of the diaphragm to the symphysis pubis without oral contrast. 100CC ml of Isovue 300 contrast was administered. Sagittal and coronal images were reconstructed. Individualized dose optimization techniques were used for this CT. COMPARISON: 09/08/2018. FINDINGS: The visualized lung bases are unremarkable. The visualized portions of the heart are within normal limits. There is decreased attenuation of the liver consistent with steatosis. There is hepatomegaly. Normal gallbladder and extrahepatic biliary system. Normal spleen. Normal pancreas. Normal bilateral adrenal glands. Normal right kidney. Normal left kidney. Evaluation of the GI tract is limited by absence of oral contrast. Cannot exclude stomach wall thickening. No dilated loops of bowel or evidence for obstruction. Cannot exclude segmental thickening of the [place] of the small or large bowel. Cannot exclude enteritis or colitis. Moderate diffuse fecal retention, along with fluid density throughout the colon which can be seen in nonspecific diarrhea. Again seen is mild diverticulosis of the sigmoid colon currently without diverticulitis. Stable appearance of a 3 cm fluid collection directly over the bladder consistent with a small residual abscess. Mild increased density of the adjacent fat from probable edema and inflammation.. Normal abdominal aorta. Normal inferior vena cava. Normal retroperitoneum. Normal urinary bladder. Normal abdominal wall. Normal osseous structures. CT/Abdomen/Pelvis W IV Cont ONLY IMPRESSION: No change. Stable 3 cm probable abscess medial to the sigmoid colon and over the surface of the bladder. Electronically Signed: Armando Rebollar MD at 17:24 EST , Service support ,
[2018-09-09 15:57] LABS: Basophil# 0.03 X10^3/uL; Basophil% 0.2 % (0-1); Eosinophil# 0.55 X10^3/uL; Eosinophils% 4.4 % (0-5); Hematocrit 48.7 % (40-54); Hemoglobin 16.4 g/dl (13.0-16.5); Lymphocyte % 17.6 % (19-41); Mean Corp Hgb Conc 33.7 g/gl (32-36); Mean Corpuscular Hgb 29.1 pg (27.0-32.0); Mean Corpuscular Volume 86.5 fL (80-94); Mean Platelet Vol. 11.3 fl (6.2-12.0); Monocyte# 0.61 X10^3/uL; Monocyte% 4.9 % (0-10); Neutrophil # 9.04 X10^3/uL (2.7-7.7); Neutrophil % 72.3 % (47-70); Platelet Count 405 K/mm3 (150-450); RBC Distribution Width CV 14.1 % (11.6-14.6); RBC Distribution Width SD 45.1 fl (35.1-43.9); Red Blood Count 5.63 M/mm3 (4.6-6.2); White Blood Count 12.5 K/mm3 (4.4-11.0)
[2018-09-09 16:07] LABS: Anion Gap 13 (5-15); BUN 14 mg/dL (7-18); BUN/Creat Ratio 13.9 RATIO (10-20); Chloride 106 mmol/L (98-107); Creatinine, Serum 1.01 mg/dL (0.70-1.30); EST Glomerular Filtration Rate 93 mL/min (>60); Est Glom Filt Rate - Afr Amer 113 mL/min (>60); Estimated Creatinine Clearance 119.52 ml/min; Glucose 133 mg/dL (74-106); POSITIVE COUNT NO; POSITIVE DIFFERENTIAL NO; POSITIVE MORPHOLOGY NO; Potassium 3.8 mmol/L (3.5-5.1); Sodium Level 140 mmol/L (136-145)
[2018-09-09] MEDS: 0.9% Normal Saline 1,000 ML 1000 ML IV (16:13)
[2018-09-09] MEDS: HYDROmorphone 1 MG/ML Syringe IV (16:14)
[2018-09-09] MEDS: proMETHazine 25 MG/ML Syringe 6.25 MG IV (16:14)
--- NOTE | 2018-09-09 16:34 | ED.DCSUM_ITS ---
- ER Visit Summary Date of Service: 09/09/18 Chief Complaint: Abdominal pain History of Present Illness: The patient is a 28 M presenting for evaluation secondary to abdominal pain. Patient has a recent history of having a sigmoid diverticulitis complicated by abscess. He was actually recently admitted to the hospital, and underwent CT-guided drainage for this. He was discharged from the hospital yesterday on a course of Flagyl with an improving CT scan. Patient states that when he woke up this morning he had sudden worsening of the pain. He reports that it is in his lower abdomen and right lower quadrant, and is a searing sharp stabbing type pain. He does endorse that he had some nausea and d iarrhea associated with this. Denies any presence of fevers. Denies any urinary signs or symptoms. Review of systems otherwise negative. Physical Examination: Vital signs are within normal limits. Visibly uncomfortable male otherwise not physiologic distress. Head normocephalic. Moist mucous membranes. Neck was supple. Heart regular rate and rhythm lungs clear. Abdomen is tender in the right lower quadrant with guarding. Normal bowel sounds noted. There is bruising noted over the patient's abdomen from his CT-guided drainage procedure. Test Results: CBC demonstrates leukocytosis of 12 which is increased from the patient's discharge white blood cell count yesterday of 9. Metabolic panel is negative. CT abdomen and pelvis shows no change of the patient's abscess and no other new changes. Emergency Department Course and Treatment: Patient presented for evaluation secondary to abdominal pain in the setting of sigmoid abscess and recent discharge from the hospital. Patient's pain was addressed with Dilaudid and Phenergan. Laboratory workup shows the patient to have somewhat of a worsening leukocytosis. I had a discussion with the patient's surgeon Dr. Weiss who recommended repeat CT scan. This was performed and shows no evidence of acute changes. I further discussed this with surgery, who recommended the patient be readmitted for IV antibiotics and n.p.o. status. She also requested that the patient potentially see psychiatry as an inpatient as he does have underlying psychiatric issues. She requested the patient be admitted under the hospitalist. Hospitalist and Surgery had a discussion with the patient and he wishes to go home. I feel this is appropriate. He was discharged Disposition: Discharge Impression: 1. Sigmoid diverticulitis with 3 cm abscess, subsequent encounter 2. Intractable pain This note was generated with Dragon dictation software. It may contain incorrect words, spelling, and punctuation that were not noted in review of the chart prior to signing ED Disposition - Plan for ED Patient: Disposition: Home or Assisted Living Chief Complaint: Abd Pain Diagnosis: Diverticulitis Instructions: ED Diverticulitis Prescriptions: Oxycodone HCl/Acetaminophen [Percocet 5/325] 1 - 2 tab PO Q4H PRN PRN 7 Days #50 tab PRN Reason: Pain Referrals: Roxi Weiss MD [STAFF PHYSICIAN] - Keep [facility] appointment
[2018-09-09 17:49] VITALS: BP 132/79; PULSE 74; RESP 16; O2SAT 98
[2018-09-09] MEDS: HYDROmorphone 0.5 MG/0.5 ML SYRINGE IV (17:57)
[2018-09-09] MEDS: 0.9% Normal Saline 1,000 ML 150 ML IV (18:02)
--- NOTE | 2018-09-09 18:10 | NURSING ---
DR LATHA ANN
--- NOTE | 2018-09-09 18:37 | PCM.CONS.B ---
Problem List (1) Colonic diverticular abscess Status: Acute - Consult Date of Consult: 09/09/[address] Lomas Pt is a 28 YO male with a recent hx of diverticulitis followed by development of a diverticular abscess. He underwent percutaneous drainage of the abscess and was discharged on 09/08/18 on Cipro and Flagyl. He was instructed to eat a low residue diet. He was not given a narcotic at DC but, was told to take Motrin as needed for pain. He has taken 5-6 Motrin tablets today with no significant relief of the pain. He had a loose stool today. He has not had any emesis but, when the pain gets bad he feels nauseous. He was afebrile at presentation to the ED with stable VS's. CT scan of the abdomen and the pelvis was unchanged from the most recent CT scan. There is a small, 3 cm, residual abscess. alert and oriented X 3, appears anxious Lungs - CTA MM - moist Heart RRR without MM or gallop abdomen - soft, non-distended, normal BS's, pain with palpation of the suprapubic area but no guarding with palpation and no rebound no peripheral edema Impressions 1. diverticular abscess - S/P percutaneous drainage by the radiologist. AF. Unremarkable PE. Pt would like to go home and I think this is reasonable. I think the untreated BPD makes him anxious and worried that something else is wrong. I will send him home with Percocet 325 mg #50 and he will take 1-2 Q 4H PRN pain. He will call Dr. Weiss's office tomorrow for an appt in [address] Lomas and with Dr. Weiss. Pt was happy with the plan. - Reason for Consult abdominal pain with recent hx of a diverticular abscess Code Visit Inpatient E&M: 84374 Subs Hosp L2
[2018-09-09] MEDS: oxyCODONE 5 MG Tablet 10 MG PO (18:53)
[2018-09-09 18:57] VITALS: BP 151/83; PULSE 78; RESP 18; O2SAT 98
--- OUTSIDE RECORDS SUMMARY | 2018-10-26 23:30 | XMS RPT_ITS ---
:1990 Author Organization OHIP Support Name Relationship Address Phone JOANNA CASTILLO Unavailable [address] + [place] [address] D Unavailable Unavailable Unavailable AMADOR, KRISTYN Unavailable [address] + [place] [address] MATILDE JOANNA Unavailable [address] + [place] [address] D Unavailable Unavailable Unavailable AMADOR, KRISTYN Unavailable [address] + [place] [address] MATILDE JOANNA Unavailable [address] + [place] [address] D Unavailable Unavailable Unavailable AMADOR, KRISTYN Unavailable [address] + [place] [address] MATILDE, JOANNA Unavailable [address] + [place] [address] D Unavailable Unavailable Unavailable AMADOR, KRISTYN Unavailable [address] + [place] [address] MATILDE JOANNA Unavailable [address] + [place] [address] D Unavailable Unavailable Unavailable AMADOR, KRISTYN Unavailable [address] + [place] [address] MATILDE, JOANNA Unavailable [address] + [place] [address] D Unavailable Unavailable Unavailable AMADOR, KRISTYN Unavailable [address] + [place] [address] MATILDE JOANNA Unavailable [address] + [place] [address] D Unavailable Unavailable Unavailable AMADOR, KRISTYN Unavailable [address] + [place] [address] MATILDE, JOANNA Unavailable [address] + [place] [address] D Unavailable Unavailable Unavailable AMADOR, KRISTYN Unavailable [address] + [place] [address] MATILDE, JOANNA Unavailable [address] + [place] [address] D Unavailable Unavailable Unavailable AMADOR, KRISTYN Unavailable [address] + [place] [address] MATILDE, JOANNA Unavailable [address] + [place] [address] D Unavailable Unavailable Unavailable AMADOR, KRISTYN Unavailable [address] + [place] [address] MATILDE, JOANNA Unavailable [address] + [place] [address] D Unavailable Unavailable Unavailable AMADOR, KRISTYN Unavailable [address] + [place] [address] MATILDE, JOANNA Unavailable [address] + [place] [address] D Unavailable Unavailable Unavailable AMADOR, KRISTYN Unavailable [address] + [place] [address] MATILDE, JOANNA Unavailable [address] + [place] [address] D Unavailable Unavailable Unavailable AMADOR, KRISTYN Unavailable [address] + [place] [address] MATILDE, JOANNA Unavailable [address] + [place] [address] D Unavailable Unavailable Unavailable AMADOR, KRISTYN Unavailable [address] + [place] [address] MATILDE, JOANNA Unavailable [address] + [place] [address] D Unavailable Unavailable Unavailable AMADOR, KRISTYN Unavailable [address] + [place] [address] MATILDE, JOANNA Unavailable [address] + [place] [address] D Unavailable Unavailable Unavailable AMADOR, KRISTYN Unavailable [address] + [place] [address] MATILDE, JOANNA Unavailable [address] + [place] [address] D Unavailable Unavailable Unavailable AMADOR, KRISTYN Unavailable [address] + [place] [address] MATILDE, JOANNA Unavailable [address] + [place] [address] D Unavailable Unavailable Unavailable AMADOR, KRISTYN Unavailable [address] + [place] [address] MATILDE, JOANNA Unavailable [address] + [place] [address] D Unavailable Unavailable Unavailable AMADOR, KRISTYN Unavailable [address] + [place] [address] MATILDE, JOANNA Unavailable [address] + [place] [address] D Unavailable Unavailable Unavailable AMADOR, KRISTYN Unavailable [address] + [place] [address] MATILDE, JOANNA Unavailable [address] + [place] [address] D Unavailable Unavailable Unavailable AMADOR, KRISTYN Unavailable [address] + [place] [address] MATILDE, JOANNA Unavailable [address] + [place] [address] D Unavailable Unavailable Unavailable AMADOR, KRISTYN Unavailable [address] + [place] [address] MATILDE, JOANNA Unavailable [address] + [place] [address] D Unavailable Unavailable Unavailable AMADOR, KRISTYN Unavailable [address] + [place] [address] MATILDE, JOANNA Unavailable [address] + [place] [address] D Unavailable Unavailable Unavailable AMADOR, KRISTYN Unavailable [address] + [place] [address] JOANNA CASTILLO Unavailable [address] + [place] [address] D Unavailable Unavailable Unavailable KRISTYN AMADOR Unavailable [address] + [place] [address] NIKOLAS CASTILLORA Unavailable [address] + [place] [address] D Unavailable Unavailable Unavailable KRISTYN AMADOR Unavailable [address] + [place] [address] Joanna Castillo Unavailable Unavailable + Bailey Amador Unavailable [address] + [place] [address] Care Team Providers Name Role Phone [facility] Unavailable Jopperi, Ruiz Admitting Unavailable Robotham, Roxi Consulting Unavailable White, Shasta Attending Unavailable Jopperi, Ruiz Admitting Unavailable Kulwinder Prasad Attending Unavailable [facility] Unavailable Robotham, Roxi Consulting Unavailable Ashelfah, Ghasem Consulting Unavailable [facility] Unavailable Rianna Lomas Attending Unavailable Semenkhris, Sonam Attending Unavailable [facility] Unavailable Matty Wellington Attending Unavailable Ashelfah, Ghasem Referring Unavailable Jopperi, Ruiz Admitting Unavailable Robotham, Roxi Attending Unavailable [facility] Unavailable Robotham, Roxi Consulting Unavailable White, Shasta Consulting Unavailable Jopperi, Ruiz Admitting Unavailable White, Shasta Attending Unavailable [facility] Unavailable Robotham, Roxi Consulting Unavailable White, Shasta Consulting Unavailable Jopperi, Ruiz Admitting Unavailable White, Shasta Attending Unavailable [facility] Unavailable Robotham, Roxi Consulting Unavailable White, Shasta Consulting Unavailable Sementi, Sonam Admitting Unavailable Robotham, Roxi Attending Unavailable [facility] Unavailable Cebul, Brendon Consulting Unavailable White, Shasta Consulting Unavailable Sementi, Sonam Admitting Unavailable White, Shasta Attending Unavailable [facility] Unavailable Cebul, Brendon Consulting Unavailable White, Shasta Consulting Unavailable Jopperi, Ruiz Admitting Unavailable Kulwinder Prasad Attending Unavailable [facility] Unavailable Robotham, Roxi Consulting Unavailable Ashelfah, Ghasem Consulting Unavailable Jopperi, Ruiz Admitting Unavailable Ashelfah, Ghasem Attending Unavailable [facility] Unavailable Robotham, Roxi Consulting Unavailable Ashelfah, Ghasem Consulting Unavailable Jopperi, Ruiz Admitting Unavailable Robotham, Roxi Attending Unavailable [facility] Unavailable Robotham, Roxi Consulting Unavailable Ashelfah, Ghasem Consulting Unavailable Jopperi, Ruiz Admitting Unavailable Ashelfah, Ghasem Attending Unavailable [facility] Unavailable Robotham, Roxi Consulting Unavailable Ashelfah, Ghasem Consulting Unavailable Jopperi, Ruiz Admitting Unavailable Robotham, Roxi Attending Unavailable [facility] Unavailable Robotham, Roxi Consulting Unavailable Ashelfah, Ghasem Consulting Unavailable Jopperi, Ruiz Attending Unavailable [facility] Unavailable Sementi, Sonam Admitting Unavailable Paintsil, [place] Attending Unavailable [facility] Unavailable Cebul, Brendon Consulting Unavailable Paintsil, [place] Consulting Unavailable Sementi, Sonam Admitting Unavailable Robotham, Roxi Attending Unavailable [facility] Unavailable Cebul, Brendon Consulting Unavailable White, Shasta Consulting Unavailable Sementi, Sonam Admitting Unavailable White, Shasta Attending Unavailable [facility] Unavailable Cebul, Brendon Consulting Unavailable White, Shasta Consulting Unavailable Sementi, Sonam Admitting Unavailable White, Shasta Attending Unavailable [facility] Unavailable Cebul, Brendon Consulting Unavailable White, Shasta Consulting Unavailable Sementi, Sonam Admitting Unavailable Robotham, Roxi Attending Unavailable [facility] Unavailable Cebul, Brendon Consulting Unavailable White, Shasta Consulting Unavailable Sementi, Sonam Admitting Unavailable Sementi, Sonam Attending Unavailable [facility] Unavailable Cebul, Brendon Consulting Unavailable Sementi, Sonam Consulting Unavailable [facility] Unavailable Sementi, Sonam Admitting Unavailable Cebul, Brendon Consulting Unavailable [place], [place] Attending Unavailable Jopperi, Ruiz Admitting Unavailable Robotham, Roxi Attending Unavailable [facility] Unavailable Robotham, Roxi Consulting Unavailable White, Shasta Consulting Unavailable Jopperi, Ruiz Admitting Unavailable Ashelfah, Ghasem Attending Unavailable [facility] Unavailable Iesla, Roxi Consulting Unavailable Barry, Ghasem Consulting Unavailable JosetteMaheshe Admitting Unavailable Isela, Roxi Attending Unavailable [facility] Unavailable Brendon Rosales Consulting Unavailable Shasta Cueto Consulting Unavailable PROVIDER, UNKNOWN Referring Unavailable Nicolás [facility] Unavailable PROVIDER, UNKNOWN Attending Unavailable CARMEN ESPINOZA Admitting Unavailable ANAHI CHRISTOPHER Attending Unavailable DAKOTA LESLIE Consulting Unavailable [facility] Unavailable CARMEN ESPINOZA Admitting Unavailable Deepa MENDOZA Consulting Unavailable ANAHI CHRISTOPHER Attending Unavailable Deepa LESLIE Consulting Unavailable PROBLEMS PROBLEMS DATE TYPE CONDITION / CODE ATTENDING STATUS SOURCE Active Diverticulitis of HANNAH CHRISTOPHERE Active [facility] 8 intestine, part [facility] Other unspecified, without [place] perforation or abscess Repository without bleeding / K57.92(ICD-10) Active Right lower quadrant ASHWINANAHI Brown Active [facility] pain / R10.31(ICD-10) [facility] Other [place] Repository Admitting Unknown / UNK(Unknown) ASHWINANAHI Active [facility] diagnosis [facility] Repository Unknown K57.92 - Sementi, Active [place] 8 Diverticulitis of [facility] intestine, part Hospital unspecified, without Repository perforation or abscess without bleeding / K57.92(ICD-10) Unknown R94.31 - Abnormal [place], Active [place] 8 electrocardiogram [facility] [ECG] [EKG] / Hospital R94.31(ICD-10) Repository Unknown R07.89 - Other chest [place], Active [place] 8 pain / R07.89(ICD-10) [facility] Repository Admitting Dental caries, Unknown Active [facility] 8 Diagnosis unspecified / System K02.9(ICD-10) Repository Admitting Periapical abscess Unknown Active [facility] 8 Diagnosis without sinus / System K04.7(ICD-10) Repository Admitting Gastro-esophageal Unknown Active [facility] 8 Diagnosis reflux disease without System esophagitis / Repository K21.9(ICD-10) Admitting Nicotine dependence, Unknown Active [facility] 8 Diagnosis cigarettes, System uncomplicated / Repository F17.210(ICD-10) Admitting Other specified Unknown Active [employer] [employer] [facility] 8 Diagnosis disorders of teeth and System supporting structures Repository / K08.89(ICD-10) PROCEDURES PROCEDURES No Procedure Records FoundRESULTS RESULTS CNPN Observed: 10/21/2018 Status: COMPLETED Source: [facility] 12:00 AM [facility]IN[facility] OTHER CAMPUS REPOSITORY Telephone (AKPRAD) RUTHIE CASTILLO ([id number]) 1990 M Date Time Provider Department 10/21/18 ADELAIDA CERRATO (SAURABH) BENJA During your visit today, we recorded the following information about you: Adelaida Cerrato APRN.CNP 10/21/2018 2:23 PM Signed I called to inform the patient about his IBD serology results. His phone was busy multiple times. I contacted his emergency contact which was his mother. I left a message with her with my name and number to call myself back to discuss test results. She expressed clear understanding. Adelaida Cerrato APRN.SAURABH Allergies As of Date: 10/21/2018 Noted Allergy Reaction BEES 02/25/2009 10 - Anaphylaxis COMPAZINE (PROCHLORPERAZINE EDISY*05/30/2010 5 - Intolerance Comments: lock jaw MUSHROOM COMBINATION NO.1 08/25/2014 4 - Hives NYQUIL (PAKLIJMNH-FTV-KC-ACETAMIN*09/20/2018 12 - Shortness of Breath POISON MIMI 02/28/2009 2 - Rash Date Reviewed: 09/23/2018 Reviewed by: Lorena (Rn) JUANA Glaser - Fully Assessed Reason for Visit: Results [95] Prescriptions as of 10/21/2018 Sig: METRONIDAZOLE 500 MG TABLET Take 1 tablet by mouth three * GABAPENTIN 100 MG CAPSULE Take 100 mg by mouth three ti* PROMETHAZINE 25 MG TABLET Take 25 mg by mouth every 6 h* CLONAZEPAM 1 MG TABLET TWICE A DAY PANTOPRAZOLE 20 MG TABLET,DEL* TWICE A DAY CPAP Initiate CPAP @ 11 cm of wate* Problem List As Of Date 10/21/2018 Noted Resolved ADD (Attention Deficit Disorder) [F98.8] INVALID FOR* Bipolar disorder (HCC) [F31.9] INVALID FOR* Depressive Disorder, not Elsewhere Classified [*INVALID FOR* Unspecified Backache [M54.9] INVALID FOR* Verruca [B07.9] INVALID FOR* Toxic effect of venom [T63.91XA] INVALID FOR* Spermatocele [N43.40] INVALID FOR* Testalgia [N50.819] INVALID FOR* Right ankle sprain [S93.401A] INVALID FOR* Sleep apnea [G47.30] INVALID FOR* Diverticulitis, colon [K57.32] INVALID FOR* More... Leukocytosis [D72.829] INVALID FOR* More... Nicotine use disorder, F17.2 [F17.200] INVALID FOR* Obesity, Class II, BMI 35-39.9 [E66.9] INVALID FOR* Encounter Status:Closed by ADELAIDA CERRATO on 10/21/18 CJ Observed: 10/21/2018 Status: COMPLETED Source: [facility] 12:00 AM [facility] REPOSITORY Telephone (AKPRAD) RUTHIE CASTILLO ([id number]) 1990 M Date Time Provider Department 10/21/18 ADELAIDA CERRATO (PEDIATRICIAN/MEDICAL DOCTOR) BENJA During your visit today, we recorded the following information about you: Adelaida Cerrato APRN.CNP 10/21/2018 3:27 PM Signed The patient returned my phone call. I explained his IBD serology results. He have an appointment scheduled with an Patient Centered Care Specialist in [place], [place] on 10/27/18. I informed him to notify the provider about his results which he expressed clear understanding. Adelaida Cerrato, ROADS SUPERVISOR.PEDIATRICIAN/MEDICAL DOCTOR Allergies As of Date: 10/21/2018 Noted Allergy Reaction BEES 02/25/2009 10 - Anaphylaxis COMPAZINE (PROCHLORPERAZINE EDISY*05/30/2010 5 - Intolerance Comments: lock jaw MUSHROOM COMBINATION NO.1 08/25/2014 4 - Hives NYQUIL (VBUTZUJWD-COO-MR-ACETAMIN*09/20/2018 12 - Shortness of Breath POISON MIMI 02/28/2009 2 - Rash Date Reviewed: 09/23/2018 Reviewed by: Lorena (Rn) JUANA Glaser - Fully Assessed Reason for Visit: Results [95] Prescriptions as of 10/21/2018 Sig: METRONIDAZOLE 500 MG TABLET Take 1 tablet by mouth three * GABAPENTIN 100 MG CAPSULE Take 100 mg by mouth three ti* PROMETHAZINE 25 MG TABLET Take 25 mg by mouth every 6 h* CLONAZEPAM 1 MG TABLET TWICE A DAY PANTOPRAZOLE 20 MG TABLET,DEL* TWICE A DAY CPAP Initiate CPAP @ 11 cm of wate* Problem List As Of Date 10/21/2018 Noted Resolved ADD (Attention Deficit Disorder) [F98.8] INVALID FOR* Bipolar disorder (HCC) [F31.9] INVALID FOR* Depressive Disorder, not Elsewhere Classified [*INVALID FOR* Unspecified Backache [M54.9] INVALID FOR* Verruca [B07.9] INVALID FOR* Toxic effect of venom [T63.91XA] INVALID FOR* Spermatocele [N43.40] INVALID FOR* Testalgia [N50.819] INVALID FOR* Right ankle sprain [S93.401A] INVALID FOR* Sleep apnea [G47.30] INVALID FOR* Diverticulitis, colon [K57.32] INVALID FOR* More... Leukocytosis [D72.829] INVALID FOR* More... Nicotine use disorder, F17.2 [F17.200] INVALID FOR* Obesity, Class II, BMI 35-39.9 [E66.9] INVALID FOR* Encounter Status:Closed by ADELAIDA CERRATO on 10/21/18 CNDS Observed: 09/23/2018 Status: COMPLETED Source: [facility] 1:19 PM CLINIC OTHER CAMPUS REPOSITORY HNO ID: [id number] Author: Be Nevarez (Res) MD [place] Service: Hospital Medicine Author Type: Resident Type: Discharge Summaries Filed: 09/23/2018 1:31 PM Note Text: Attestation signed by Anahi Christopher at 09/24/2018 8:[address] Rincon on 09/22 for sign out, chart and orders reviewed, discussed with team on 09/23. Pt seen on 09/23 at 1115, said he was eating well, still having some pain with BM, but had a soft brown BM in morning. Was very concerned and assured me that he would follow up with GI for colonoscopy as recommended because 'both my dad and my uncle had colon cancer, my uncle got it very young'. Disposition - as below, med stable for dc to home, will finish oral abx and follow up with both pcp and GI. DISCHARGE SUMMARY PATIENT NAME: Ruthie Castillo ADMISSION DATE: 09/20/2018 DISCHARGE DATE: 09/23/2018 ATTENDING PHYSICIAN: Anahi Christopher Code Status: Not on file Highest Readmission Risk Score: 11 The 30 day readmissions risk score is derived from an internally validated risk model which evaluates patient level characteristics, utilization history, medication orders and lab results up until the day of discharge. Patients with a score of 40 or above are considered highest risk for readmission. Specific patient level drivers will be listed at the bottom of the summary. REASON FOR HOSPITALIZATION: Abdominal pain, likely secondary to diverticulitis. DIAGNOSIS: Principal Problem: Diverticulitis, colon Active Problems: Leukocytosis Bipolar disorder (HCC) Nicotine use disorder, F17.2 Obesity, Class II, BMI 35-39.9 Resolved Problems: * No resolved hospital problems. * OPERATIONS DURING HOSPITALIZATION: None PROCEDURES DURING HOSPITALIZATION: No procedures performed HOSPITAL COURSE: This is a 28 year old male with who was recently diagnosed to have diverticulitis with sigmoid abscess s/p percutaneous drain placed at [facility] who was discharged on oral cipro and flagyl, comes in with worsening abdominal pain. He was discharged on 09/02 and went back to [facility] with same complaints, CT abdomen was done which showed the same size of abscess due to which he was discharged with the same antibiotics and pain meds. He also says he has some nausea. Patient was diagnosed with irritable bowel syndrome 1 year back and has been having intermittent diarrhea and constipation. Repeat CT abdomen with contrast showed thickening wall of sigmoid colon and terminal ileum, differential diagnosis including diverticulitis, inflammatory bowel disease, infectious enteritis, and carcinoid tumor. Soft tissue attenuation within the pelvis superior to the bladder measuring 1.6?2.8?1.5 cm in size was also seen. Surgical team was consulted and did not recommend surgical intervention. GI service was consulted and recommended colonoscopy 6-8 weeks after discharge. He will be discharged with 5 days of ciprofloxacin and Flagyl for diverticulitis, and 5 days Percocet for pain control. He will need to follow up with his PCP and billing coordinator for colonoscopy. Transitions of Care Critical Issues: IMAGING FOLLOW-UP: Colonoscopy 6-8 weeks after discharge LABS AND PROCEDURES PENDING AT DISCHARGE: IBD serology CONSULTING TEAMS DURING HOSPITALIZATION: Gastroenterology: . Surgery : General PATIENT CONDITION AT DISCHARGE: Stable DISCHARGE DISPOSITION: Home/Self Care Discharge Physical Exam: VITAL SIGNS: BP 143/105 Pulse 69 Temp 36.7 ?C (98.1 ?F) (Oral) Resp 20 Ht 182.9 cm (6') Wt 118.3 kg (260 lb 12.9 oz) SpO2 97% BMI 35.37 kg/m? GENERAL: Alert, no distress, cooperative LUNGS: Lungs clear to auscultation, Good diaphragmatic excursion CARDIAC: Normal S1 and S2; no rubs, murmurs, or gallops ABDOMEN: Soft, nondistended. Mild tenderness on palpation at right lower quadrant. EXTREMITIES: Extremities normal, no deformities, edema, clubbing or skin discoloration. Good capillary refill., No ulcers NEURO: Grossly normal cognition, motor function, and cranial nerves III-XII PULSES: 2+ radial DIET: Resume pre-hospital diet ACTIVITY: Resume pre-hospital activity WOUND/SURGICAL SITE CARE: None ALLERGIES Allergen Reactions - Bees Anaphylaxis - Compazine [Prochlor* Intolerance lock jaw - Mushroom Combinatio* Hives - Nyquil [Doxylamin-P* Shortness of Breath - Poison Mimi Rash DISCHARGE MEDICATION: Current Discharge Medication List START taking these medications ondansetron (ZOFRAN) 4 mg Take 4 mg by mouth every 6 hours as needed. Qty: 15 tablet Refills: 0 oxyCODONE-Acetaminophen 1 tablet Take 1 tablet by mouth every 6 hours as needed for Pain. Earliest Fill Date: 09/23/18 Qty: 20 tablet Refills: 0 Associated Diagnoses:Diverticulitis; Abdominal pain, RLQ CONTINUE these medications which have CHANGED ciprofloxacin HCl (CIPRO) 500 mg Take 500 mg by mouth twice daily. Qty: 10 tablet Refills: 0 metroNIDAZOLE (FLAGYL) 500 mg Take 500 mg by mouth three times daily. Qty: 15 tablet Refills: 0 CONTINUE these medications which have NOT CHANGED clonazePAM (KLONOPIN) 1 mg tablet TWICE A DAY gabapentin (NEURONTIN) 100 mg Take 100 mg by mouth three times daily with meals. pantoprazole DR (PROTONIX) 20 mg tablet TWICE A DAY promethazine (PHENERGAN) 25 mg Take 25 mg by mouth every 6 hours as needed. CPAP Initiate CPAP @ 11 cm of water with humidification. Mask (per patient preference) optional chin strap (if indicated) , filters, tubing, humidifier and lifetime supplies. Qty: 1 Device Refills: 0 Associated Diagnoses:Sleep apnea STOP taking these medications oxyCODONE-acetaminophen (PERCOCET) 1 tablet Comments: Reason for Stopping: FUTURE APPOINTMENTS: Follow Up with PCP: Berna Wren CNP Follow Up with GI: Dr. Patel. The patient's risk for 30-day readmission is determined using the following contributing factors: Pt variables contributing to increased readmission risk: 10 Active Medication Orders 9 Most Recent BUN Result 8.8 First Resulted Calcium During Admission 1 Previous ED Visit (6 mos.)? 1 Number of Previous ED Visits (6 mos.) 1 Insurance - Medicare 1 Discharge Disposition - Home 1 Active Anticoagulant SIGNATURE: Be Nevarez Cha, MD PAGER/CONTACT #: Pager: [phone] DATE: September 23, 2018 TIME: 1:19 PM PROGRESS Observed: 09/23/2018 Status: COMPLETED Source: [facility] 7:38 AM CLINIC OTHER CAMPUS REPOSITORY HNO ID: [id number] Author: Casi Saunders Service: General Surgery Author Type: Resident Type: Progress Notes Filed: 09/23/2018 7:42 AM Note Text: Emergency General Surgery Progress Note SERVICE DATE: 09/23/2018 SUBJECTIVE: Pt states still has pain overnight. Some N last night when he had pain. Pain is most significant when pt has a BM. Tolerating PO. + flatus AND BM. DIET REGULAR Nausea No Emesis No Flatus Yes Bowel movement Yes Pain Controlled Yes Ambulating Yes OBJECTIVE: Vitals: Temp (24hrs), Av.9 ?C (98.4 ?F), Min:36.7 ?C (98.1 ?F), Max:37.1 ?C (98.8 ?F) BP 145/96 Pulse 61 Temp 36.7 ?C (98.1 ?F) (Oral) Resp 18 Ht 182.9 cm (6') Wt 118.3 kg (260 lb 12.9 oz) SpO2 98% BMI 35.37 kg/m? O2 Therapy: Room Air IANDO: Date 09/22/18 0700 - 09/23/18 0659 09/23/18 0700 - 09/24/18 0659 Shift 9622-4067 3978-0879 4524-6119 24 Hour Total 6581-9415 7120-3820 0808-2324 24 Hour Total I N T A K E PO 360 360 PO 360 360 IV 300 300 Cipro IV 200 200 Flagyl IV 100 100 Shift Total 660 660 O U T P U T Urine Urine Not Saved. 1 x 1 x Shift Total Weight (kg) 118.3 118.3 118.3 118.3 118.3 118.3 118.3 118.3 MEDICATIONS Current Facility-Administered Medications: acetaminophen 650 mg tab(s) (TYLENOL) 650 mg ORAL q 6 H PRN ciprofloxacin 400 mg in D5W 200 mL (CIPRO) 400 mg INTRAVENOUS q 12 H enoxaparin 40 mg injection (LOVENOX) 40 mg SUBCUTANEOUS q 24 H hydrOXYzine HCl 20 mg tab(s) (ATARAX) 20 mg ORAL q 6 H PRN ketorolac 15 mg injection (TORADOL) 15 mg INTRAVENOUS q 6 H PRN metroNIDAZOLE 500 mg PREMIX piggyback (FLAGYL) 500 mg INTRAVENOUS q 8 H morphine 1-2 mg injection 1-2 mg INTRAVENOUS q 4 H PRN NaCl 0.9% 3-5 mL 3-5 mL INTRAVENOUS q 12 H NaCl 0.9% iv infusion 100 mL/hr INTRAVENOUS CONTINUOUS ondansetron 4 mg tab(s) (ZOFRAN) 4 mg ORAL q 6 H PRN Or ondansetron (PF) 4 mg injection (ZOFRAN) 4 mg INTRAVENOUS q 6 H PRN Labs: Recent Labs 09/23/18 0250 09/22/18 0617 09/21/18 0015 NA 139 137 < > 140 K 3.8 3.6 < > 3.8 CHLOR 107 108* < > 105 CO2 24 22 < > 26 BUN 9 9 < > 8 CREAT 0.80 0.73 < > 0.69 GLUC 76 74 < > 123* ANION 12 11 < > 13 CA 8.4* 8.4* < > 8.8 ALB -- -- -- 4.1 AST -- -- -- 31 ALT -- -- -- 62 ALKPHOS -- -- -- 88 TBILI -- -- -- 0.3 WBC 10.08* 10.22* < > 10.28* HB 13.5* 13.5* < > 14.6 HCT 41.3 41.4 < > 43.9 PLT 267 292 < > 342 < > = values in this interval not displayed. Exam: GENERAL: No distress, Alert NEURO: AANDOx3 HEENT: normocephalic, atraumatic LUNGS: Unlabored breathing CARDIAC: Regular rate and rhythm as above ABDOMEN: Soft, obese, non-distended, TTP in RLQ, no peritoneal signs EXTREMITIES: JIMENES, No deformities, No edema SKIN: Skin color, texture, turgor normal, No rashes or lesions ASSESSMENT AND PLAN: Active Hospital Problems Diagnosis Date Noted - Diverticulitis, colon 09/21/2018 - Leukocytosis 09/21/2018 - Bipolar disorder (HCC) 11/29/2009 28 year old male with recent flare of diverticulitis now admitted with CT findings of sigmoid thickening that are concerning for diverticulitis, sequelae of prior inflammatory change with scarring, adhesions, and/or fistulous tracts, and a carcinoid tumor. He also has findings concerning for crohn's in his terminal ileum - Medical management per primary team - per GI- IBD serology, CRP, CEA (WNL), AND MRE; continue cipro/flagyl AND ADAT. Outpt colonoscopy in 4-6 weeks - regular diet - No indication for acute surgical intervention at this time; will sign off, call with questions. Casi Saunders, DO General Surgery PGY-5 September 23, 2018 7:39 AM Emergency General Surgery Service Pager: For questions or concerns Mon-Fri 6a-5p please page [phone]. After 5pm and on Weekends and Holidays, please page [phone] if in ICU or [phone] if on RNF. MDRD GFR Collected: 09/23/2018 Status: F Source: [facility] 2:50 AM HEALTH SYSTEM REPOSITORY TYPE CODE TESTS RESULT OUT OF RANGE REFERENCE UNITS LAB GFRFN(LOINC >60mL/min/1.73m ) 2 eGFR >60 Result Comment: If the patient is , multiply the result by 1.210. Performed By: #### GFR #### [facility] [address] [place] [address] HEMOGRAM Collected: 09/23/2018 Status: F Source: [employer] [facility] 2:50 AM HEALTH SYSTEM REPOSITORY TYPE CODE TESTS RESULT OUT OF REFERENCE UNITS RANGE LAB WBC(LOINC) 4.23-9.07 thou/cmm High WBC 10.08 LAB RBC(LOINC) 4.63-6.08 mil/cmm RBC 4.68 LAB HGB(LOINC) 13.7-17.5 g/dL Low Hgb 13.5 LAB HCT(LOINC) 40.1-51.0 % Hct 41.3 LAB MCV(LOINC) 83.2-95.6 fl MCV 88.2 LAB MCH(LOINC) 25.7-32.2 pg MCH 28.8 LAB MCHC(LOINC) 32.3-36.5 % MCHC 32.7 LAB RDW(LOINC) 11.6-14.4 % RDW 13.2 LAB RDWSD(LOINC 36.1-45.8 fl ) RDW SD 42.9 LAB PLT(LOINC) 141-365 thou/cmm Platelet 267 LAB MPV(LOINC) 8.7-12.0 fl MPV 10.4 Performed By: #### CBC1 #### [facility] [address] [place], [place] [address] BASIC PANEL Collected: 09/23/2018 Status: F Source: [facility] 2:50 AM HEALTH SYSTEM REPOSITORY TYPE CODE TESTS RESULT OUT OF REFERENCE UNITS RANGE LAB NA(LOINC) 136-145 mEq/L Sodium Blood 139 LAB K(LOINC) 3.5-5.1 mEq/L Potassium Blood 3.8 LAB CL(LOINC) 98-107 mEq/L Chloride Blood 107 LAB CO2(LOINC) 21-32 mEq/L CO2 Blood 24 LAB GLU(LOINC) 70-99 mg/dL Glucose Blood 76 LAB BUN(LOINC) 7-18 mg/dL BUN Blood 9 LAB CREA(LOINC 0.67-1.17 mg/dL ) Creatinine Blood 0.80 LAB CA(LOINC) 8.5-10.1 mg/dL Low Calcium Blood 8.4 LAB ANGAP(LOIN 8-16 C) Anion Gap 12 Performed By: #### P8 #### [facility] [address] [id number] PROGRESS Observed: 09/22/2018 Status: COMPLETED Source: [facility] 4:29 PM CLINIC OTHER CAMPUS REPOSITORY HNO ID: [id number] Author: Be Nevarez (Stepan Dodson MD Service: Hospital Medicine Author Type: Resident Type: Progress Notes Filed: 09/22/2018 4:30 PM Note Text: Attestation signed by Bryce Rincon at 09/22/2018 10:32 PM Teaching Attending Note: ? I personally saw and evaluated the patient. I reviewed Dr Dodson's note. I agree with the resident's assessment and plan unless otherwise noted. ? 28M ?recurrent diverticulitis/diverticular abscess since 07/2018 presented here for the same complaint/reason. CT abdo reviewed, questionable diverticulitis diagnosis, ?IBD. Consult GI for further guidance. ? Potential d/c if diagnosis consistent with diverticulitis w abx and supportive care. If IBD suspected, will trial prednisone. ? Bryce Rincon MD [facility] Attending September 22, 2018 3:59 PM SERVICE DATE: 09/22/2018 SERVICE TIME: 4:29 PM HOUSE MEDICINE SERVICE PROGRESS NOTE PCP: Berna Wren CNP Admitting Attending: Carmen Espinoza SUBJECTIVE Chief Complaint: Abdominal pain HPI: This is a 28 year old male with who was recently diagnosed to have diverticulitis with sigmoid abscess s/p percutaneous drain placed at [facility] (patient says drain was removed as it was not draining anything) who was discharged on oral cipro and flagyl, comes in with worsening abdominal pain. He was discharged on 09/02 and went back to [facility] ED with same complaints, CT abdomen was done which showed the same size of abscess due to which he was discharged with the same antibiotics and pain meds. He says he has some nausea. Patient was diagnosed with irritable bowel syndrome 1 year back and has been having intermittent diarrhea and constipation. He says for the past 10 days he has been having about 4 episodes of foul smelling greenish loose stools, non bloody. Had colonoscopy 3 years back with internal hemorrhoids being the only positive finding. H/o colon cancer in grandfather and uncle at the age of 78 and 65 respectively. Interval events: Patient reports the pain improved compared to initial presentation, rated 4/10, most prominent at left lower quadrant described as cramps. The abdominal pain is exacerbated by bowel strains. He also reports nausea, but has no vomiting. He denies fever, chills, or rigors. Currently his stool is formed, greenish, floats, nonbloody. Received medical records from [facility], prior CT scan report indicates diverticulosis but not diverticulitis. An abscess was also seen superior to the bladder. PAST MEDICAL HISTORY Diagnosis Date - Adjustment disorder with depressed mood - Attention deficit disorder with hyperactivity(314.01) - Bipolar I disorder, most recent episode (or current) unspecified - Diverticulitis - Hypertension - IBS (irritable bowel syndrome) - PMH - PAST MEDICAL HISTORY OF SKULL FRACTURE @ 2YEARS OF AGE - PMH - PAST MEDICAL HISTORY OF LEFT ARM FRACTURE @ 13 YEAR OF AGE - Problems with learning - Snoring PAST SURGICAL HISTORY Procedure Laterality Date - COLONOSCOP W/ OR W/O [facility] SPEC 09/15/2014 Colonoscopy - PAST SURGICAL HISTORY OF 2007 9 plantar warts right foot - PAST SURGICAL HISTORY OF 2011 testicular FAMILY HISTORY Problem Relation Age of Onset - other (FIBROMYLAGIA [Other]) Mother - other (OSTEOARHTRITIS [Other]) Mother - other (DISASSOCIATIVE IDENTITY DISORDER [Other]) Mother - other (CONVERSION DISORDER [Other]) Mother SEIZURE D/T THIS - Asthma Maternal Grandmother - COPD Maternal Grandmother - Heart Maternal Grandfather Social History Substance Use Topics - Smoking status: Current Every Day Smoker Packs/day: 0.00 Years: 1.00 Types: Cigarettes - Smokeless tobacco: Former User Comment: 3 cigarettes per day - Alcohol use Yes Comment: rarely Medications: Prescriptions Prior to Admission: ciprofloxacin HCl (CIPRO) 500 mg tablet Take 500 mg by mouth twice daily. Disp: Rfl: clonazePAM (KLONOPIN) 1 mg tablet TWICE A DAY Disp: Rfl: gabapentin (NEURONTIN) 100 mg capsule Take 100 mg by mouth three times daily with meals. Disp: Rfl: metroNIDAZOLE (FLAGYL) 500 mg tablet 3 TIMES DAILY WITH MEALS Disp: Rfl: oxyCODONE-acetaminophen (PERCOCET) 5-325 mg tablet Take 1 tablet by mouth. Disp: Rfl: [address] (PROTONIX) 20 mg tablet TWICE A DAY Disp: Rfl: promethazine (PHENERGAN) 25 mg tablet Take 25 mg by mouth every 6 hours as needed. Disp: Rfl: CPAP Initiate CPAP @ 11 cm of water with humidification. Mask (per patient preference) optional chin strap (if indicated) , filters, tubing, humidifier and lifetime supplies. Disp: 1 Device Rfl: 0 09/14/2014 at 2200 Allergies: ALLERGIES Allergen Reactions - Bees Anaphylaxis - Compazine [Prochlor* Intolerance lock jaw - Mushroom Combinatio* Hives - Nyquil [Doxylamin-P* Shortness of Breath - Poison Mimi Rash OBJECTIVE: Vital Signs: BP 137/87 Pulse 84 Temp (Src) 98.8 (Oral) Resp 16 Ht 6' 0 (1.83m) Wt 260 lb 12.9 oz (118.3kg) SpO2 96% BMI 35.36 kg/(m2). Physical Exam Performed: GENERAL: Obese, Moderate Distress, Cooperative EYES: PERRLA, EOMI NECK: No jugulovenous distention, No carotid bruits, Carotid pulse normal contour, Supple BACK: Back symmetric, Normal curvature, ROM normal, No CVAT. LUNGS: Lungs clear to auscultation, Good diaphragmatic excursion CARDIAC: Normal S1 and S2; no rubs, murmurs, or gallops ABDOMEN: Tenderness to RLQ, no guarding/rigidity, no rebound tenderness. BS hypoactive EXTREMITIES: Extremities normal, no deformities, edema, clubbing or skin discoloration. Good capillary refill. Lines, Drains, and Airways Line Peripheral 09/20/182336 Admission to Hospital Short Right Antecubital 20 Gauge 1 day Data: Labs: CBC: Recent Labs 09/22/1861609/21/18213009/21/18 0015 WBC 10.22* 10.76* 10.28* HB 13.5* 14.6 14.6 HCT 41.4 43.9 43.9 PLT 292 313 342 MCV 88.3 87.1 88.0 COAG: No results for input(s): APTT, INR in the last 168 hours. BMP: Recent Labs 09/22/18 0617 09/21/18213009/21/18 0015 GLUC 74 86 123* NA 137 137 140 K 3.6 3.6 3.8 CHLOR 108* 108* 105 CO2 22 20* 26 ANION 11 13 13 BUN 9 9 8 CREAT 0.73 0.77 0.69 CHEM: Recent Labs 09/22/18 0617 09/21/18213009/21/18 0015 ALB -- -- 4.1 TPROT -- -- 8.3* CA 8.4* 8.8 8.8 HEPATIC: Recent Labs 09/21/18 0015 ALKPHOS 88 ALT 62 AST 31 TBILI 0.3 LIPASE 214 URINALYSIS: Recent Labs 09/21/18 0330 SPGR 1.026 UGLUC NEGATIVE UBILI NEGATIVE UKET NEGATIVE UPROT NEGATIVE UROBIL 0.[address] abdomen (09/20/2018) IMPRESSION: 1. ?Abnormal findings referable to bowel and mesentery in the pelvis. Differential considerations include diverticulitis, sequelae of prior inflammatory?change with scarring, adhesions, and/or fistulous tracts, and a carcinoid tumor. 2. ?Question nonspecific enteritis. 3. ?Details and additional observations as described. ASSESSMENT AND PLAN Assessment AND Plan, all Hosp Problems Active Hospital Problems as of 09/22/2018 Noted - Resolved A * (Principal)Diverticulitis, colon 09/21/2018 - Present Current Assessment AND Plan - Differential diagnosis includes inflammatory bowel disease. - Recent diverticulosis with sigmoid abscess, treated with cipro+flagyl and percutaneous drain at [facility] (08/28-09/02), ED visit 09/09/18 for abdomen pain with CT showing no acute process - Colonoscopy 2013 normal except for internal hemorrhoids - Today, CT findings with no drainable abscess/obstruction, suspicious for changes relate to prior inflammation/stricture/fistula. No pancreatic changes, no appendicitis. Plan - Will continue cipro and flagyl till . Consider changing the abx to Zosyn if the patient worsens clinically - Per GI consult, will order IBD serology, CRP, CEA and MRE. Continue ciprofloxacin and Flagyl. - progress diet as tolerated - IVF - C difficile PCR negative, will discontinue contact precaution. - Pain control with toradol - Ondansetron IV/PO - Will do outpatient colonoscopy in 4-6 weeks. C Leukocytosis 09/21/2018 - Present Current Assessment AND Plan - Improving, 10.2 today Unprioritized Bipolar disorder (HCC) 11/29/2009 - Present Medication and Non-Pharmacologic VTE Prophylaxis/Anticoagulants Anticoagulant AND Antiplatelet Medications Start Dose Route Frequency Ordered Stop 09/21/18 0530 enoxaparin 40 mg injection (LOVENOX) (Medical At Risk ) 40 mg SUBCUTANEOUS EVERY 24 HOURS 09/21/18 0520 -- 09/21/18 0530 pneumatic compression stockings (md,wa) 09/21/18 0530 activity - mobilize patient (md,wa) VTE Prophylaxis: VTE prophylaxis appropriate Plan of care discussed with: Attending SIGNATURE: Be Nevarez Cha, MD PATIENT NAME: Ruthie Castillo DATE: September 22, 2018 TIME: 4:29 PM PAGER/CONTACT #: Pager: [phone] PROGRESS Observed: 09/22/2018 Status: COMPLETED Source: [facility] 3:59 PM CLINIC OTHER CAMPUS REPOSITORY HNO ID: [id number] Author: Bryce Rincon Service: Hospital Medicine Author Type: Physician Type: Progress Notes Filed: 09/22/2018 4:03 PM Note Text: Teaching Attending Note: I personally saw and evaluated the patient. I reviewed Dr Dodson's note. I agree with the resident's assessment and plan unless otherwise noted. 28M ?recurrent diverticulitis/diverticular abscess since 07/2018 presented here for the same complaint/reason. CT abdo reviewed, questionable diverticulitis diagnosis, ?IBD. Consult GI for further guidance. Potential d/c if diagnosis consistent with diverticulitis w abx and supportive care. If IBD suspected, will trial prednisone. Bryce Rincon MD [facility] Attending September 22, 2018 3:59 PM CRP Collected: 09/22/2018 Status: F Source: [facility] 1:45 PM HEALTH SYSTEM REPOSITORY TYPE CODE TESTS RESULT OUT OF RANGE REFERENCE UNITS LAB CRP3(LOINC) 0.00-0.30 mg/dL CRP < 0.29 Performed By: #### CRP3 #### [place] [address] CEA Collected: 09/22/2018 Status: F Source: [facility] 1:45 PM HEALTH SYSTEM REPOSITORY TYPE CODE TESTS RESULT OUT OF RANGE REFERENCE UNITS LAB CEA(LOINC) 0.0-3.0 ng/mL CEA 1.2 Result Comment: The reference range shown is for adult non-smokers. The range for smokers is 0-5.0 Testing performed by Chemiluminescence LOCI. Performed By: #### CEA #### [place] [address] IBD SEROLOGY DISEASE Collected: 09/22/2018 Status: F Source: [facility] 1:45 PM HEALTH SYSTEM REPOSITORY TYPE CODE TESTS RESULT OUT OF REFERENCE UNITS RANGE LAB IBDX(LOINC) IBD Serology SEE BELOW Disease Panel Result Comment: S. Cerevisiae IgG 34.0 H Reference range: 0.0 to 24.9 Unit: Units S. Cerevisiae IgA 100.0 H Reference range: 0.0 to 24.9 Unit: Units (NOTE) INTERPRETIVE INFORMATION: S. cerevisiae Antibody, IgA and IgG 20.0 Units or less ........ Negative 20.1 to 24.9 Units ......... Equivocal 25.0 Units or greater ...... Positive Saccharomyces cerevisiae IgG antibodies are found in 60-70 percent of Crohn disease (CD) patients and 10-15 percent of ulcerative colitis (UC) patients. Saccharomyces cerevisiae IgA antibodies are found in about 35 percent of CD patients but less than 1 percent in UC patients. Detection of both Saccharomyces IgG and IgA antibodies in the same serum specimen is highly specific for CD. Anti Neutro Cytopl Ab <1:20 Reference range: <1:20 (NOTE) The ANCA IFA is <1:20; therefore, no further testing will be performed. INTERPRETIVE INFORMATION: Anti-Neutrophil Cyto Ab, IgG Neutrophil Cytoplasmic Antibodies (C-ANCA = granular cytoplasmic staining, P-ANCA = perinuclear staining) are found in the serum of over 90 percent of patients with certain necrotizing systemic vasculitides, and usually in less than 5 percent of patients with collagen vascular disease or arthritis. Inf Bowel Dis Interp SEE NOTE (NOTE) INTERPRETIVE INFORMATION: Inflammatory Bowel Disease Interpretation ASCA Atypical P-ANCA* Ab Profile IgG and/or IgA >24.9.........ND.............Suggests CD IgG and IgA <20.1............Obs............Suggests UC IgG and/or IgA >20.0.........Obs......Equivocal for IBD IgG and/or IgA 20.1-24.9.....ND.......Equivocal for IBD IgG and IgA <20.1............ND.....IBD not suggested *The atypical pattern is either observed (Obs) or not detected (ND). ANCA patterns other than atypical p-ANCA are not associated with IBD. Atypical p-ANCA antibodies are found in 50-70 percent of patients with ulcerative colitis (UC) and in about 20 percent of individuals with Crohn disease (CD). A negative result does not rule out IBD. References: Lorenzo GE, Amanda VA, Shaniqua C, Katarzyna AW, Evan TR, Mehnaz VW, Eh PP. Diagnostic precision of anti-Saccharomyces cerevisiae antibodies and perinuclear antineutrophil cytoplasmic antibodies in inflammatory bowel disease. Am J Gastroenterol. 2006;101(10):2410-22. EER Inf Bowel D Goodrich SEE NOTE (NOTE) Access [employer] Enhanced Report using either link below: -Direct access: [email or web address] -Enter Username, Password: [email or web address] Username: [email or web address] Password: [email or web address] Performed by [employer], [address] [place] [id number] [email or web address], Wes Patel MD, Lab. Director Performing Laboratory: Performed By: #### IBDX #### [place] [address] PLAN OF CARE Observed: 09/22/2018 Status: COMPLETED Source: [facility] 11:39 AM CLINIC OTHER CAMPUS REPOSITORY HNO ID: [id number] Author: Myke Kaplan Service: Pharmacy Author Type: Pharmacist Type: Plan of Care Filed: 09/22/2018 11:45 AM Note Text: MEDICATION HISTORY AND MEDICATION RECONCILIATION Patient Name:.Ruthie Castillo : 1990 Source of history:Patient: Reliability of source: Appears reliable, clearly identified: Medication name, Medication dose, Medication route, Medication frequency, Timing of last dose and Indications, [facility] records and [facility] Medication Nonadherence Identified: No barriers noted The above information represents the best possible medication history: Yes Reconciliation completed? Yes All [employer] medications addressed by LIP Additional comments: All medications reported by patient are accounted for in REconcile Outside. Patient confirmed medications taken right up until admission. Patient could not reconcile the number of medications he takes (he thought he only had 6 but was aware of all 7 on his list). Patient will try to clarify with his . Fourteen day course of cipro and flagyl were filled on 09/08/18 Allergies: ALLERGIES Allergen Reactions - Bees Anaphylaxis - Compazine [Prochlor* Intolerance lock jaw - Mushroom Combinatio* Hives - Nyquil [Doxylamin-P* Shortness of Breath - Poison Mimi Rash Preferred Pharmacy: [facility] Current [employer] Medications: Prior to Admission medications as of 09/22/18 1139 Medication Sig Last Dose Taking ciprofloxacin HCl (CIPRO) 500 mg tablet Take 500 mg by mouth twice daily. Yes clonazePAM (KLONOPIN) 1 mg tablet TWICE A DAY Yes gabapentin (NEURONTIN) 100 mg capsule Take 100 mg by mouth three times daily with meals. Yes metroNIDAZOLE (FLAGYL) 500 mg tablet 3 TIMES DAILY WITH MEALS Yes oxyCODONE-acetaminophen (PERCOCET) 5-325 mg tablet Take 1 tablet by mouth. Yes pantoprazole DR (PROTONIX) 20 mg tablet TWICE A DAY Yes promethazine (PHENERGAN) 25 mg tablet Take 25 mg by mouth every 6 hours as needed. Yes CPAP Initiate CPAP @ 11 cm of water with humidification. Mask (per patient preference) optional chin strap (if indicated) , filters, tubing, humidifier and lifetime supplies. Myke Kaplan, Calli September 22, 2018 11:39 AM CONSULT Observed: 09/22/2018 Status: COMPLETED Source: [facility] 11:30 AM CLINIC OTHER CAMPUS REPOSITORY HNO ID: [id number] Author: Adelaida Cerrato Service: Gastroenterology Author Type: Nurse Practitioner Type: Consults Filed: 09/22/2018 12:01 PM Note Text: CONSULT: GASTROENTEROLOGY SERVICE SERVICE DATE: 09/22/2018 SERVICE TIME: 11:30 AM REASON FOR CONSULT: Probably IBD, ? Need colonoscopy REQUESTING PHYSICIAN: Jay PRIMARY CARE PHYSICIAN: Berna Wren CNP Subjective Mr. Castillo is a 28 year old male with h/o GERD and diverticulitis complicated with abscess with drainage (removed prior to discharge) who presented to the ED for abdominal pain. He stated his abdominal pain started about a month ago. The pain was located in his rectum and abdomen. The abdominal pain was described as stabbing and someone punching me without radiation. The pain resolved on it's own but when he went to defecate the pain was so severe he had an syncope episode. He was admitted into [facility] which he was dx with diverticulitis with abscess. He stated he was placed on antibiotics and discharged home. He stated the pain got worse so he returned to the ED which he was admitted and drainage for his abscess was placed which was removed prior to his discharge. He was instructed to repeat abdominal CT and follow up with Dr. Whitfield within 1-2 weeks. He stated he have an appointment on 09/25/18 but was unable to wait until then. He stated his abdominal pain got worse which was causing him to be afraid to eat. His abdominal pain is aggravated with defecation. His last stool was yesterday. In the ED his abdominal CT was concerning for diverticulitis or IBD so he was admitted for further evaluation. GI was consulted for possible IBD. He denied family or personal h/o IBD, melena, hematochezia, hematemesis, dysphagia, or loss of appetite. His grandfather and uncle of colon carcinoma. His last colonoscopy was in August 2014 which only showed internal hemorrhoids. FUNCTIONAL STATUS: Independent PAST MEDICAL HISTORY Diagnosis Date - Adjustment disorder with depressed mood - Attention deficit disorder with hyperactivity(314.01) - Bipolar I disorder, most recent episode (or current) unspecified - Diverticulitis - Hypertension - IBS (irritable bowel syndrome) - PMH - PAST MEDICAL HISTORY OF SKULL FRACTURE @ 2YEARS OF AGE - PMH - PAST MEDICAL HISTORY OF LEFT ARM FRACTURE @ 13 YEAR OF AGE - Problems with learning - Snoring PAST SURGICAL HISTORY Procedure Laterality Date - COLONOSCOP W/ OR W/O [facility] SPEC 09/15/2014 Colonoscopy - PAST SURGICAL HISTORY OF 2007 9 plantar warts right foot - PAST SURGICAL HISTORY OF 2011 testicular FAMILY HISTORY Problem Relation Age of Onset - other (FIBROMYLAGIA [Other]) Mother - other (OSTEOARHTRITIS [Other]) Mother - other (DISASSOCIATIVE IDENTITY DISORDER [Other]) Mother - other (CONVERSION DISORDER [Other]) Mother SEIZURE D/T THIS - Asthma Maternal Grandmother - COPD Maternal Grandmother - Heart Maternal Grandfather Social History Substance Use Topics - Smoking status: Current Every Day Smoker Packs/day: 0.00 Years: 1.00 Types: Cigarettes - Smokeless tobacco: Former User Comment: 3 cigarettes per day - Alcohol use Yes Comment: rarely Prescriptions Prior to Admission: clonazePAM (KLONOPIN) 1 mg tablet TWICE A DAY Disp: Rfl: gabapentin (NEURONTIN) 100 mg capsule Take 100 mg by mouth three times daily with meals. Disp: Rfl: metroNIDAZOLE (FLAGYL) 500 mg tablet 3 TIMES DAILY WITH MEALS Disp: Rfl: oxyCODONE-acetaminophen (PERCOCET) 5-325 mg tablet Take 1 tablet by mouth. Disp: Rfl: [address] (PROTONIX) 20 mg tablet TWICE A DAY Disp: Rfl: promethazine (PHENERGAN) 25 mg tablet Take 25 mg by mouth every 6 hours as needed. Disp: Rfl: CPAP Initiate CPAP @ 11 cm of water with humidification. Mask (per patient preference) optional chin strap (if indicated) , filters, tubing, humidifier and lifetime supplies. Disp: 1 Device Rfl: 0 09/14/2014 at 2200 omeprazole (PRILOSEC) 20 mg capsule Take 1 capsule by mouth daily before breakfast. 1/2 hr before meal. Disp: 30 capsule Rfl: 1 Current hospital medications: ciprofloxacin 400 mg in D5W 200 mL (CIPRO) 400 mg INTRAVENOUS q 12 H enoxaparin 40 mg injection (LOVENOX) 40 mg SUBCUTANEOUS q 24 H hydrOXYzine HCl 20 mg tab(s) (ATARAX) 20 mg ORAL q 6 H PRN ketorolac 15 mg injection (TORADOL) 15 mg INTRAVENOUS q 6 H PRN metroNIDAZOLE 500 mg PREMIX piggyback (FLAGYL) 500 mg INTRAVENOUS q 8 H morphine 1-2 mg injection 1-2 mg INTRAVENOUS q 4 H PRN NaCl 0.9% 3-5 mL 3-5 mL INTRAVENOUS q 12 H NaCl 0.9% iv infusion 100 mL/hr INTRAVENOUS CONTINUOUS ondansetron (PF) 4 mg injection (ZOFRAN) 4 mg INTRAVENOUS q 6 H PRN ondansetron 4 mg tab(s) (ZOFRAN) 4 mg ORAL q 6 H PRN Allergies As of Date: 09/20/2018 Allergen Noted Reaction BEES 02/25/2009 Anaphylaxis COMPAZINE [PROCHLORPERAZINE EDISY*05/30/2010 Intolerance MUSHROOM COMBINATION NO.1 08/25/2014 Hives NYQUIL [RBSTPHEPD-UEL-SW-ACETAMIN*09/20/2018 Shortness of Breath POISON MIMI 02/28/2009 Rash Fully Assessed 11/09/2016 COMPLETE REVIEW OF SYSTEMS: PAIN ASSESSMENT: CURRENTLY HAVING PAIN; see HPI GENERAL: Weight loss RESPIRATORY: Negative for cough, hemoptysis, wheezing, COPD, dyspnea or shortness of breath CARDIOVASCULAR: Negative for chest pain, leg swelling, hypertension, CHF or palpitations GI: See HPI SKIN: Negative for lesions, rash, and itching HEMATOLOGY/LYMPHOLOGY: Negative for prolonged bleeding, bruising easily or swollen nodes NEURO: No history of headaches, syncope, paralysis, seizures or tremors Objective PHYSICAL EXAM: Physical Exam Performed: GENERAL: Alert and oriented X 3 in no distress, cooperative and following commands SKIN: Skin warm and dry LUNGS: Lungs clear to auscultation, even and unlabored on RA CARDIAC: Normal S1 and S2; without rubs, murmurs, or gallops ABDOMEN: Abdomen soft with + BS X 4 without guarding, rebound, or distention, right sided periumbilical and b/l lower abdominal pain on palpation normal EXTREMITIES: JIMENES X 4 without edema PULSES: 2+ radial BP 137/87 Pulse 84 Temp (Src) 98.8 (Oral) Resp 16 Ht 6' 0 (1.83m) Wt 260 lb 12.9 oz (118.3kg) SpO2 96% BMI 35.36 kg/(m2). DATA: Diagnostic tests reviewed for today's visit: Ref. Range 09/21/2018 00:15 09/21/2018 12:10 09/21/2018 21:31 09/22/2018 06:17 Sodium Latest Ref Range: 136 - 145 mEq/L 140 137 137 Potassium Latest Ref Range: 3.5 - 5.1 mEq/L 3.8 3.6 3.6 Chloride Latest Ref Range: 98 - 107 mEq/L 105 108 (H) 108 (H) CO2 Latest Ref Range: 21 - 32 mEq/L 26 20 (L) 22 BUN Latest Ref Range: 7 - 18 mg/dL 8 9 9 Creatinine Latest Ref Range: 0.67 - 1.17 mg/dL 0.69 0.77 0.73 Glucose Latest Ref Range: 70 - 99 mg/dL 123 (H) 86 74 Protein, Total Latest Ref Range: 6.4 - 8.2 g/dL 8.3 (H) Calcium Latest Ref Range: 8.5 - 10.1 mg/dL 8.8 8.8 8.4 (L) Albumin Latest Ref Range: 3.4 - 5.0 g/dL 4.1 Bilirubin, Total Latest Ref Range: 0.2 - 1.0 mg/dL 0.3 Alkaline Phosphatase Latest Ref Range: 46 - 116 U/L 88 ALT Latest Ref Range: 12 - 78 U/L 62 AST Latest Ref Range: 9 - 37 U/L 31 Anion Gap Latest Ref Range: 8 - 16 13 13 11 Lipase Latest Ref Range: 73 - 393 U/L 214 eGFR Latest Ref Range: >60mL/min/1.73m2 >60 >60 >60 Ref. Range 09/21/2018 00:15 09/21/2018 21:31 09/22/2018 06:17 WBC Latest Ref Range: 4.23 - 9.07 thou/cmm 10.28 (H) 10.76 (H) 10.22 (H) RBC Latest Ref Range: 4.63 - 6.08 mil/cmm 4.99 5.04 4.69 HGB Latest Ref Range: 13.7 - 17.5 g/dL 14.6 14.6 13.5 (L) Hematocrit Latest Ref Range: 40.1 - 51.0 % 43.9 43.9 41.4 Platelet Count Latest Ref Range: 141 - 365 thou/cmm 342 313 292 MCV Latest Ref Range: 83.2 - 95.6 fl 88.0 87.1 88.3 MCH Latest Ref Range: 25.7 - 32.2 pg 29.3 29.0 28.8 Ref. Range 09/21/2018 18:45 C. difficile by PCR Unknown NEGATIVE for Toxi... Abdomen/pelvs CT on 09/21/18: IMPRESSION: 1. ?Abnormal findings referable to bowel and mesentery in the pelvis. ? Differential considerations include diverticulitis, sequelae of prior inflammatory ?change with scarring, adhesions, and/or fistulous tracts, and a carcinoid tumor. 2. ?Question nonspecific enteritis. 3. ?Details and additional observations as described. Colonoscopy 09/15/14: Finding: Internal hemorrhoids were found during retroflexion and during endoscopy and were moderate. Impression/Recommendations 1). ? IBD-CT showed submucosal fat attenuation involving the terminal ileum and suspected slightly thick-walled sigmoid colon, WBC 10, afebrile, no hematochezia, no family h/o IBD but family h/o colon cancer Assessment AND Plan: IBD serology, CRP, CEA, and MRE. Continue Ciprofloxacin and Flagyl for diverticulitis. Outpatient colonoscopy in 4-6 weeks. 2). Diverticulitis, colon-2nd episode (per patient), leukocytosis trending downwards, on Cipro and Flagyl Assessment AND Plan: Continue Ciprofloxacin and Flagyl and advance diet as tolerated 3). Lower and right sided periumbilical abdominal pain-likely 2/2 # 1 and/or 2, on analgesic per primary Assessment AND Plan: Continue analgesic per primary SIGNATURE: Adelaida Cerrato APRN.PEDIATRICIAN/MEDICAL DOCTOR PATIENT NAME: Ruthie Castillo DATE: September 22, 2018 TIME: 11:30 AM PAGER: PROGRESS Observed: 09/22/2018 Status: COMPLETED Source: [facility] 9:56 AM [facility] OTHER CAMPUS REPOSITORY HNO ID: [id number] Author: Shona Nguyen) Cassidymike Service: General Surgery Author Type: Nurse Practitioner Type: Progress Notes Filed: 09/22/2018 10:03 AM Note Text: Emergency General Surgery Progress Note SERVICE DATE: 09/22/2018 Time: 704 SUBJECTIVE: Pt states intermittent pain in upper abdomen, feels like he was hit with a baseball bat. - Pain very bad during the night, noted after having bowel movement. - Bowel movement soft, green in color Currently NPO Cdiff negative. Significant family h/o colon CA and diverticulitis which required surgery. Tolerating diet DIET NPO Nausea No Emesis No Flatus Yes Bowel movement Yes Pain Controlled Yes Ambulating Yes OBJECTIVE: Vitals: Temp (24hrs), Av.7 ?C (98 ?F), Min:36.4 ?C (97.5 ?F), Max:37.1 ?C (98.8 ?F) BP 137/87 Pulse 84 Temp 37.1 ?C (98.8 ?F) (Oral) Resp 16 Ht 182.9 cm (6') Wt 118.3 kg (260 lb 12.9 oz) SpO2 96% BMI 35.37 kg/m? O2 Therapy: Room Air IANDO: Date 09/21/18699 - 09/22/1865809/22/18699 - 09/23/18 0659 Shift 9088-6276 7034-9734 8841-6034 24 Hour Total 7320-9974 9708-8086 2753-9815 24 Hour Total I N T A K E Shift Total O U T P U T Urine Urine Not Saved. 1 x 1 x 2 x Emesis 100 100 Emesis (ml) 100 100 # of BMs Number of BMs 1 x 1 x Shift Total 100 100 Weight (kg) 118.3 118.3 118.3 118.3 118.3 118.3 118.3 118.3 MEDICATIONS Current Facility-Administered Medications: ciprofloxacin 400 mg in D5W 200 mL (CIPRO) 400 mg INTRAVENOUS q 12 H enoxaparin 40 mg injection (LOVENOX) 40 mg SUBCUTANEOUS q 24 H hydrOXYzine HCl 20 mg tab(s) (ATARAX) 20 mg ORAL q 6 H PRN ketorolac 15 mg injection (TORADOL) 15 mg INTRAVENOUS q 6 H PRN metroNIDAZOLE 500 mg PREMIX piggyback (FLAGYL) 500 mg INTRAVENOUS q 8 H morphine 1-2 mg injection 1-2 mg INTRAVENOUS q 4 H PRN NaCl 0.9% 3-5 mL 3-5 mL INTRAVENOUS q 12 H NaCl 0.9% iv infusion 100 mL/hr INTRAVENOUS CONTINUOUS ondansetron 4 mg tab(s) (ZOFRAN) 4 mg ORAL q 6 H PRN Or ondansetron (PF) 4 mg injection (ZOFRAN) 4 mg INTRAVENOUS q 6 H PRN Labs: Recent Labs 09/22/18 0617 09/21/18 2131 09/21/18 0015 NA 137 137 140 K 3.6 3.6 3.8 CHLOR 108* 108* 105 CO2 22 20* 26 BUN 9 9 8 CREAT 0.73 0.77 0.69 GLUC 74 86 123* ANION 11 13 13 CA 8.4* 8.8 8.8 ALB -- -- 4.1 AST -- -- 31 ALT -- -- 62 ALKPHOS -- -- 88 TBILI -- -- 0.3 WBC 10.22* 10.76* 10.28* HB 13.5* 14.6 14.6 HCT 41.4 43.9 43.9 PLT 292 313 342 Exam: GENERAL: No distress, Alert NEURO: AANDOx3, CN II-XII grossly intact HEENT: normocephalic, atraumatic LUNGS: Unlabored breathing CARDIAC: Regular rate and rhythm as above ABDOMEN: Soft, obese, non-distended, TTP in RLQ, no peritoneal signs EXTREMITIES: JIMENES, No deformities, No edema SKIN: Skin color, texture, turgor normal, No rashes or lesions ASSESSMENT AND PLAN: Active Hospital Problems Diagnosis Date Noted - Diverticulitis, colon 09/21/2018 - Leukocytosis 09/21/2018 - Bipolar disorder (HCC) 11/29/2009 28 year old male with recent flare of diverticulitis now admitted with CT findings of sigmoid thickening that are concerning for diverticulitis, sequelae of prior inflammatory change with scarring, adhesions, and/or fistulous tracts, and a carcinoid tumor. He also has findings concerning for crohn's in his terminal ileum - Medical management per primary team - Antibiotics per primary team: Cipro/ Flagyl - Patient appears to have small bowel thickening noted in the RLQ and symptoms concerning for IBD - Would recommend GI consult for colonoscopy for evaluation of the thickened bowel - No indication for acute surgical intervention at this time Will discuss assessment and plan with attending, Dr. Spencer. SIGNATURE: Shona Charles APRN.CNP PATIENT NAME: Ruthie Castillo DATE: September 22, 2018 TIME: 9:56 AM Pager: see pager Emergency General Surgery Service Pager: For questions or concerns Mon-Fri 6a-5p please page [phone]. After 5pm and on Weekends and Holidays, please page [phone] if in ICU or [phone] if on RNF. EKG (AK,AV,EU,FV,HL,NAIN,MM,SP) Observed: Status: F Source: [facility] 09/22/2018 9:05 AM CLINIC OTHER CAMPUS REPOSITORY NAME : RUTHIE CASTILLO PID : [id number] : 1990 Gender : Male Race : ORD : [id number] Procedure Date : Sep 22 2018 09:05:38 Edit Date : Sep 24 2018 08:26:05 Diagnosis:NORMAL SINUS RHYTHM LEFT AXIS DEVIATION ABNORMAL ECG NO PREVIOUS ECGS AVAILABLE Confirmed by MD BURNS GEORGE ([id number]) on 09/24/2018 8:26:01 AM Ventricular Rate : 61 BPM Atrial Rate : 61 BPM P-R Interval : 152 ms QRS Duration : 110 ms Q-T Interval : 420 ms QTC Calculation(Bezet) : 422 ms P [place] : 22 degrees R [place] : -34 degrees T [place] : 10 degrees Test Reason : Chest Pain Location : 81 : [id number] Overread By : MD BURNS GEORGE Edited By : MD BURNS GEORGE Referred By : , Acquired by : MATT MARMOLEJO HEMOGRAM Collected: 09/22/2018 Status: F Source: [facility] 6:17 AM HEALTH SYSTEM REPOSITORY TYPE CODE TESTS RESULT OUT OF REFERENCE UNITS RANGE LAB WBC(LOINC) 4.23-9.07 thou/cmm High WBC 10.22 LAB RBC(LOINC) 4.63-6.08 mil/cmm RBC 4.69 LAB HGB(LOINC) 13.7-17.5 g/dL Low Hgb 13.5 LAB HCT(LOINC) 40.1-51.0 % Hct 41.4 LAB MCV(LOINC) 83.2-95.6 fl MCV 88.3 LAB MCH(LOINC) 25.7-32.2 pg MCH 28.8 LAB MCHC(LOINC) 32.3-36.5 % MCHC 32.6 LAB RDW(LOINC) 11.6-14.4 % RDW 13.4 LAB RDWSD(LOINC 36.1-45.8 fl ) RDW SD 43.3 LAB PLT(LOINC) 141-365 thou/cmm Platelet 292 LAB MPV(LOINC) 8.7-12.0 fl MPV 10.5 Performed By: #### CBC1 #### [facility] [address] [address] BASIC PANEL Collected: 09/22/2018 Status: F Source: [facility] 6:17 AM HEALTH SYSTEM REPOSITORY TYPE CODE TESTS RESULT OUT OF REFERENCE UNITS RANGE LAB NA(LOINC) 136-145 mEq/L Sodium Blood 137 LAB K(LOINC) 3.5-5.1 mEq/L Potassium Blood 3.6 LAB CL(LOINC) 98-107 mEq/L Chloride High Blood 108 LAB CO2(LOINC) 21-32 mEq/L CO2 Blood 22 LAB GLU(LOINC) 70-99 mg/dL Glucose Blood 74 LAB BUN(LOINC) 7-18 mg/dL BUN Blood 9 LAB CREA(LOINC 0.67-1.17 mg/dL ) Creatinine Blood 0.73 LAB CA(LOINC) 8.5-10.1 mg/dL Low Calcium Blood 8.4 LAB ANGAP(LOIN 8-16 C) Anion Gap 11 Performed By: #### P8 #### [facility] [address] [address] ABDOMEN 1 VIEW Observed: 09/22/2018 Status: F Source: [facility] 1:23 AM HEALTH SYSTEM REPOSITORY Performed at [facility] APPROVED BY: RIANNA SNYDER MD TECHNIQUE: ABDOMEN 1 VIEW - EXAM DATE: 09/22/2018 1:23 AM CLINICAL HISTORY: Abd pain, unspecified COMPARISON: 09/21/2018 RESULT: 2 views the abdomen demonstrate a nonobstructing bowel gas pattern. Moderate stool burden. No pathologic calcifications. No organomegaly. There is residual contrast in the bladder from prior CT. The lung bases are clear. No acute osseous abnormalities. IMPRESSION: Nonobstructing bowel gas pattern. Please see prior CT for detailed findings of the abdomen. NURSING PROG Observed: 09/22/2018 Status: COMPLETED Source: [facility] 12:20 AM [facility] REPOSITORY HNO ID: [id number] Author: Andreina NavasRn) JUANA Zarate Service: Nursing Author Type: Registered Nurse Type: Nursing Progress Note Filed: 09/22/2018 12:36 AM Note Text: House med paged regarding pt crying and being upset. Pt stated that he is Bipolar with PTSD. Dr Jeong paged and aware-and will evaluate pt. NURSING PROG Observed: 09/22/2018 Status: COMPLETED Source: [facility] 12:01 AM [facility] REPOSITORY HNO ID: [id number] Author: Andreina Zarate RN Service: Nursing Author Type: Registered Nurse Type: Nursing Progress Note Filed: 09/22/2018 12:17 AM Note Text: Pt was on Face Time with his mother when RN and Dr Jeong walked in the patients room at 2115. The pt had the camera pointing towards the RN and resident. The RN explained to the patient that cameras and filming are not allowed. HEMOGRAM/DIFF Collected: 09/21/2018 Status: F Source: [facility] 9:31 PM HEALTH SYSTEM REPOSITORY TYPE CODE TESTS RESULT OUT OF REFERENCE UNITS RANGE LAB WBC(LOINC) 4.23-9.07 thou/cmm WBC High 10.76 LAB RBC(LOINC) 4.63-6.08 mil/cmm RBC 5.04 LAB HGB(LOINC) 13.7-17.5 g/dL Hgb 14.6 LAB HCT(LOINC) 40.1-51.0 % Hct 43.9 LAB MCV(LOINC) 83.2-95.6 fl MCV 87.1 LAB MCH(LOINC) 25.7-32.2 pg MCH 29.0 LAB MCHC(LOINC 32.3-36.5 % ) MCHC 33.3 LAB RDW(LOINC) 11.6-14.4 % RDW 13.5 LAB RDWSD(LOIN 36.1-45.8 fl C) RDW SD 43.0 LAB PLT(LOINC) 141-365 thou/cmm Platelet 313 LAB MPV(LOINC) 8.7-12.0 fl MPV 10.3 LAB SEG(LOINC) % Seg Neutrophil 55.2 LAB IGRE(LOINC % ) Immature Grans 0.60 LAB LYMPH(LOIN % C) Lymphocyte 19.8 LAB MNO(LOINC) % Monocyte 4.9 LAB EOSIN(LOIN % C) Eosinophil 18.9 LAB BASO(LOINC % ) Basophil 0.6 Result Comment: Smear scanned; tech agrees with automated differential LAB SEGN(LOINC) 1.78-5.38 thou/cmm Abs. High Neut (ANC) 5.94 LAB IGAB(LOINC) 0.00-0.05 thou/cmm Abs High Immature Grans 0.06 LAB LYMN(LOINC) 0.84-2.85 thou/cmm Abs. Lymph 2.13 LAB MONON(LOINC) 0.30-0.82 thou/cmm Abs. Worth 0.53 LAB EOSN(LOINC) 0.04-0.54 thou/cmm Abs. High Eosin 2.03 LAB BASON(LOINC) 0.01-0.08 thou/cmm Abs. Baso 0.06 LAB PATH(LOINC) Interpreted by See below Result Comment: Karthik Morse M.D., Pathologist Performed By: #### CBCD1 #### [place] [address] BASIC PANEL Collected: 09/21/2018 Status: F Source: [facility] 9:31 PM HEALTH SYSTEM REPOSITORY TYPE CODE TESTS RESULT OUT OF REFERENCE UNITS RANGE LAB NA(LOINC) 136-145 mEq/L Sodium Blood 137 LAB K(LOINC) 3.5-5.1 mEq/L Potassium Blood 3.6 LAB CL(LOINC) 98-107 mEq/L Chloride High Blood 108 LAB CO2(LOINC) 21-32 mEq/L Low CO2 Blood 20 LAB GLU(LOINC) 70-99 mg/dL Glucose Blood 86 LAB BUN(LOINC) 7-18 mg/dL BUN Blood 9 LAB CREA(LOINC 0.67-1.17 mg/dL ) Creatinine Blood 0.77 LAB CA(LOINC) 8.5-10.1 mg/dL Calcium Blood 8.8 LAB ANGAP(LOIN 8-16 C) Anion Gap 13 Performed By: #### P8 #### [facility] [address], [place] [address] NURSING PROG Observed: 09/21/2018 Status: COMPLETED Source: [facility] 9:00 PM CLINIC OTHER CAMPUS REPOSITORY HNO ID: [id number] Author: Andreina (Rn) JUANA Zarate Service: Nursing Author Type: Registered Nurse Type: Nursing Progress Note Filed: 09/21/2018 9:04 PM Note Text: House med paged and aware pt c/o 10/10 pain after receiving Toradol and IV Morphine. House med resident aware and will evaluate pt. C. Observed: 09/21/2018 Status: F Source: [facility] DIFFICILE BY PCR 6:45 PM HEALTH SYSTEM REPOSITORY Test performed at [facility] NEGATIVE for Toxigenic C. difficile Performed By: #### CDIFX #### [facility] [address] [place], [place] [address] CONSULT Observed: 09/21/2018 Status: COMPLETED Source: [facility] 12:16 PM CLINIC OTHER [place] REPOSITORY HNO ID: [id number] Author: Benedict Herring Service: General Surgery Author Type: Physician Type: Consults Filed: 10/01/2018 2:20 AM Note Text: CONSULT: EMERGENCY GENERAL SURGERY SERVICE SERVICE DATE: 09/21/2018 SERVICE TIME: 12:15 PM REASON FOR CONSULT: Diverticulitis with sequalae of inflammatory changes with scarring, adhesions, or fistulous tract REQUESTING PHYSICIAN: Dr. Maxwell PRIMARY CARE PHYSICIAN: Berna Wren CNP Subjective Mr. Castillo is a 28 year old male who presents for abdominal pain that began yesterday. Patient states the pain is shart and located in his RLQ and lower abdomen. He denies any fevers, chills, SOB, CP, hematemesis, nausea, emesis, hematochezia, constipation. His last BM was yesterday and the patient stated it was a green color. He was recently admitted to [facility] in the beginning of the month with diverticulitis and associated abscess for which an IR drain was ordered. Upon attempted placement, the radiologist stated it was not a fluid collection but a fatty tissue per patient. Drain was not placed and patient was treated with antibiotics and sent home with PO antibiotics on 09/02. Patient had a colonoscopy 3 years prior for bloody BMs, which he states only showed internal hemorrhoids per patient. He has a family history of colon CA in his grandfather and uncle and diverticulitis in his uncle father and grandfather. He has a history of smoking. CT Abdomen/Pelvis w/IV: 1. ?Abnormal findings referable to bowel and mesentery in the pelvis. Differential considerations include diverticulitis, sequelae of prior inflammatory change with scarring, adhesions, and/or fistulous tracts, and a carcinoid tumor. 2. ?Question nonspecific enteritis. PAST MEDICAL HISTORY Diagnosis Date - Adjustment disorder with depressed mood - Attention deficit disorder with hyperactivity(314.01) - Bipolar I disorder, most recent episode (or current) unspecified - Diverticulitis - Hypertension - IBS (irritable bowel syndrome) - PMH - PAST MEDICAL HISTORY OF SKULL FRACTURE @ 2YEARS OF AGE - PMH - PAST MEDICAL HISTORY OF LEFT ARM FRACTURE @ 13 YEAR OF AGE - Problems with learning - Snoring PAST SURGICAL HISTORY Procedure Laterality Date - COLONOSCOP W/ OR W/O [facility] SPEC 09/15/2014 Colonoscopy - PAST SURGICAL HISTORY OF 2007 9 plantar warts right foot - PAST SURGICAL HISTORY OF 2011 testicular FAMILY HISTORY Problem Relation Age of Onset - other (FIBROMYLAGIA [Other]) Mother - other (OSTEOARHTRITIS [Other]) Mother - other (DISASSOCIATIVE IDENTITY DISORDER [Other]) Mother - other (CONVERSION DISORDER [Other]) Mother SEIZURE D/T THIS - Asthma Maternal Grandmother - COPD Maternal Grandmother - Heart Maternal Grandfather Social History Substance Use Topics - Smoking status: Current Every Day Smoker Packs/day: 0.00 Years: 1.00 Types: Cigarettes - Smokeless tobacco: Former User Comment: 3 cigarettes per day - Alcohol use Yes Comment: rarely Prescriptions Prior to Admission: clonazePAM (KLONOPIN) 1 mg tablet TWICE A DAY Disp: Rfl: gabapentin (NEURONTIN) 100 mg capsule Take 100 mg by mouth three times daily with meals. Disp: Rfl: metroNIDAZOLE (FLAGYL) 500 mg tablet 3 TIMES DAILY WITH MEALS Disp: Rfl: oxyCODONE-acetaminophen (PERCOCET) 5-325 mg tablet Take 1 tablet by mouth. Disp: Rfl: [address] (PROTONIX) 20 mg tablet TWICE A DAY Disp: Rfl: promethazine (PHENERGAN) 25 mg tablet Take 25 mg by mouth every 6 hours as needed. Disp: Rfl: CPAP Initiate CPAP @ 11 cm of water with humidification. Mask (per patient preference) optional chin strap (if indicated) , filters, tubing, humidifier and lifetime supplies. Disp: 1 Device Rfl: 0 09/14/2014 at 2200 omeprazole (PRILOSEC) 20 mg capsule Take 1 capsule by mouth daily before breakfast. 1/2 hr before meal. Disp: 30 capsule Rfl: 1 Current hospital medications: ciprofloxacin 400 mg in D5W 200 mL (CIPRO) 400 mg INTRAVENOUS q 12 H enoxaparin 40 mg injection (LOVENOX) 40 mg SUBCUTANEOUS q 24 H ketorolac 15 mg injection (TORADOL) 15 mg INTRAVENOUS q 6 H PRN metroNIDAZOLE 500 mg PREMIX piggyback (FLAGYL) 500 mg INTRAVENOUS q 8 H morphine 1-2 mg injection 1-2 mg INTRAVENOUS q 4 H PRN NaCl 0.9% 3-5 mL 3-5 mL INTRAVENOUS q 12 H NaCl 0.9% iv infusion 100 mL/hr INTRAVENOUS CONTINUOUS ondansetron (PF) 4 mg injection (ZOFRAN) 4 mg INTRAVENOUS q 6 H PRN ondansetron 4 mg tab(s) (ZOFRAN) 4 mg ORAL q 6 H PRN Allergies As of Date: 09/20/2018 Allergen Noted Reaction BEES 02/25/2009 Anaphylaxis COMPAZINE [PROCHLORPERAZINE EDISY*05/30/2010 Intolerance MUSHROOM COMBINATION NO.1 08/25/2014 Hives NYQUIL [[id number]-ACETAMIN*09/20/2018 Shortness of Breath POISON MIMI 02/28/2009 Rash Fully Assessed 11/09/2016 COMPLETE REVIEW OF SYSTEMS: as per HPI Objective PHYSICAL EXAM: Physical Exam Performed: GENERAL: Alert, no distress, cooperative EYES: EOMI NECK: Supple LUNGS: Unlabored breathing on RA CARDIAC: Rhythm: regular rate and rhythm ABDOMEN: soft, obese, TTP in RLQ and lower abdomen, no peritoneal signs, no distension EXTREMITIES: Normal exam of the extremities BP 115/66 Pulse 52 Temp (Src) 97.5 (Oral) Resp 18 Ht 6' 0 (1.83m) Wt 260 lb 12.9 oz (118.3kg) SpO2 94% BMI 35.36 kg/(m2). DATA: Diagnostic tests reviewed for today's visit: Most recent labs and imaging results. CBC, Coags, BMP, Mg, Phos Recent Labs 09/21/18 0015 WBC 10.28* HB 14.6 HCT 43.9 PLT 342 NA 140 K 3.8 CHLOR 105 CO2 26 BUN 8 CREAT 0.69 GLUC 123* CA 8.8 Liver Function, Amylase, AND Lipase Recent Labs 09/21/18 0015 TPROT 8.3* ALB 4.1 ALT 62 AST 31 ALKPHOS 88 TBILI 0.3 LIPASE 214 Impression/Recommendations 28 year old male with recent flare of diverticulitis now admitted with CT findings of sigmoid thickening that are concerning for diverticulitis, sequelae of prior inflammatory change with scarring, adhesions, and/or fistulous tracts, and a carcinoid tumor. He also has findings concerning for crohn's in his terminal ileum - Medical management per primary - Antibiotics per primary - Patient appears to have small bowel thickening noted in the RLQ and symptoms concerning for IBD - Would recommend GI consult for colonoscopy for evaluation of the thickened bowel - No indication for acute surgical intervention at this time Emergency General Surgery Service Pager: For questions or concerns Mon-Fri 6a-5p please page [phone]. After 5pm and on Weekends and Holidays, please page [phone] if in ICU or [phone] if on RNF. Discussed with Dr Nima MD SIGNATURE: Cheri Reeves MD PATIENT NAME: Ruthie Castillo DATE: September 21, 2018 TIME: 12:16 PM PAGER: above Attending Note I agree with the resident's findings and plan as documented and have discussed the case and management of the patient's care with the resident. 28 year old male with abdominal pain and recent diverticulitis episode. Personal history, family history and imaging findings concerning for inflammatory bowel disease/Crohn's as well as significant risk factors for hereditary colon disease. Benedict Herring MD Department of General Surgery Section of Trauma, Surgery Critical Care, and Acute Care Surgery Delayed entry HGB A1C Collected: 09/21/2018 Status: F Source: [facility] 12:10 PM HEALTH SYSTEM REPOSITORY TYPE CODE TESTS RESULT OUT OF RANGE REFERENCE UNITS LAB A1C5(LOINC) 4.2-6.3 % Hgb A1c 5.7 Result Comment: Method is National Glycohemoglobin Standardization Program (NGSP) compliant. LAB ESAVG(LOINC) mg/dl Est. Avg Glucose 117 Performed By: #### HA1C #### [facility] [address] [address] PROGRESS Observed: 09/21/2018 Status: COMPLETED Source: [facility] 11:52 AM CLINIC OTHER CAMPUS REPOSITORY HNO ID: [id number] Author: Be Nevarez (Stepan Dodson MD Service: Hospital Medicine Author Type: Resident Type: Progress Notes Filed: 09/21/2018 2:49 PM Note Text: Attestation signed by Carmen Espinoza at 09/21/2018 6:51 PM I saw and evaluated the patient. Discussed with the resident and agree with resident's findings and plan as documented in the resident's note. SERVICE DATE: 09/21/2018 SERVICE TIME: 11:52 AM HOUSE MEDICINE SERVICE HISTORY AND PHYSICAL PCP: Berna Wren CNP Admitting Attending: Carmen Espinoza SUBJECTIVE Chief Complaint: Abdominal pain HPI: This is a 28 year old male with who was recently diagnosed to have diverticulitis with sigmoid abscess s/p percutaneous drain placed at [facility] (patient says drain was removed as it was not draining anything) who was discharged on oral cipro and flagyl, comes in with worsening abdominal pain. He was discharged on 09/02 and went back to [facility] with same complaints, CT abdomen was done which showed the same size of abscess due to which he was discharged with the same antibiotics and pain meds. He says he has some nausea. Patient was diagnosed with irritable bowel syndrome 1 year back and has been having intermittent diarrhea and constipation. He says for the past 10 days he has been having about 4 episodes of foul smelling greenish loose stools, non bloody. Had colonoscopy 3 years back with internal hemorrhoids being the only positive finding. H/o colon cancer in grandfather and uncle at the age of 78 and 65 respectively. Interval events: Patient reports the pain about the same compared to initial presentation, rated 8/10, most prominent at left lower quadrant described as cramps. He also has sharp pain and lower abdomen. The abdominal pain is exacerbated by bowel strains, and eating any food. He also reports nausea, but has no vomiting. He denies fever, chills, or rigors. Upon further questioning, he reports his stool no longer watery in the past few days, but has prior been watery for 10 days prior to that. Currently his stool is formed, greenish, floats, nonbloody. Last bowel movement yesterday. He reports his abdominal pain started about a month ago, when he strained for bowel movement. He report multiple admission to [facility] without symptom improvement, despite on antibiotics. We have requested medical records from [facility]. He has no known heart disease, stroke, vascular disease, or diabetes. Family history significant for heart disease, youngest member at age 58 due to heart attack. He also complains of increased urinary frequency, but denies dysuria, weight changes. He hasn't seen his PCP for a long time, and never screened for diabetes. His urinalysis in ED not indicated if of UTI. PAST MEDICAL HISTORY Diagnosis Date - Adjustment disorder with depressed mood - Attention deficit disorder with hyperactivity(314.01) - Bipolar I disorder, most recent episode (or current) unspecified - Diverticulitis - Hypertension - IBS (irritable bowel syndrome) - PMH - PAST MEDICAL HISTORY OF SKULL FRACTURE @ 2YEARS OF AGE - PMH - PAST MEDICAL HISTORY OF LEFT ARM FRACTURE @ 13 YEAR OF AGE - Problems with learning - Snoring PAST SURGICAL HISTORY Procedure Laterality Date - COLONOSCOP W/ OR W/O [facility] SPEC 09/15/2014 Colonoscopy - PAST SURGICAL HISTORY OF 2007 9 plantar warts right foot - PAST SURGICAL HISTORY OF 2011 testicular FAMILY HISTORY Problem Relation Age of Onset - other (FIBROMYLAGIA [Other]) Mother - other (OSTEOARHTRITIS [Other]) Mother - other (DISASSOCIATIVE IDENTITY DISORDER [Other]) Mother - other (CONVERSION DISORDER [Other]) Mother SEIZURE D/T THIS - Asthma Maternal Grandmother - COPD Maternal Grandmother - Heart Maternal Grandfather Social History Substance Use Topics - Smoking status: Current Every Day Smoker Packs/day: 0.00 Years: 1.00 Types: Cigarettes - Smokeless tobacco: Former User Comment: 3 cigarettes per day - Alcohol use Yes Comment: rarely Medications: Prescriptions Prior to Admission: clonazePAM (KLONOPIN) 1 mg tablet TWICE A DAY Disp: Rfl: gabapentin (NEURONTIN) 100 mg capsule Take 100 mg by mouth three times daily with meals. Disp: Rfl: metroNIDAZOLE (FLAGYL) 500 mg tablet 3 TIMES DAILY WITH MEALS Disp: Rfl: oxyCODONE-acetaminophen (PERCOCET) 5-325 mg tablet Take 1 tablet by mouth. Disp: Rfl: [address] (PROTONIX) 20 mg tablet TWICE A DAY Disp: Rfl: promethazine (PHENERGAN) 25 mg tablet Take 25 mg by mouth every 6 hours as needed. Disp: Rfl: CPAP Initiate CPAP @ 11 cm of water with humidification. Mask (per patient preference) optional chin strap (if indicated) , filters, tubing, humidifier and lifetime supplies. Disp: 1 Device Rfl: 0 09/14/2014 at 2200 omeprazole (PRILOSEC) 20 mg capsule Take 1 capsule by mouth daily before breakfast. 1/2 hr before meal. Disp: 30 capsule Rfl: 1 Allergies: ALLERGIES Allergen Reactions - Bees Anaphylaxis - Compazine [Prochlor* Intolerance lock jaw - Mushroom Combinatio* Hives - Nyquil [Doxylamin-P* Shortness of Breath - Poison Mimi Rash OBJECTIVE: Vital Signs: BP 115/66 Pulse 52 Temp (Src) 97.5 (Oral) Resp 18 Ht 6' 0 (1.83m) Wt 260 lb 12.9 oz (118.3kg) SpO2 94% BMI 35.36 kg/(m2). Physical Exam Performed: GENERAL: Obese, Moderate Distress, Cooperative EYES: PERRLA, EOMI NECK: No jugulovenous distention, No carotid bruits, Carotid pulse normal contour, Supple BACK: Back symmetric, Normal curvature, ROM normal, No CVAT. LUNGS: Lungs clear to auscultation, Good diaphragmatic excursion CARDIAC: Normal S1 and S2; no rubs, murmurs, or gallops ABDOMEN: Tenderness to RLQ, no guarding/rigidity, no rebound tenderness. BS hypoactive EXTREMITIES: Extremities normal, no deformities, edema, clubbing or skin discoloration. Good capillary refill. Lines, Drains, and Airways Line Peripheral 09/20/18 3227 Admission to Hospital Short Right Antecubital 20 Gauge less than 1 day Data: Labs: CBC: Recent Labs 09/21/18 0015 WBC 10.28* HB 14.6 HCT 43.9 PLT 342 MCV 88.0 COAG: No results for input(s): APTT, INR in the last 168 hours. BMP: Recent Labs 09/21/18 0015 GLUC 123* NA 140 K 3.8 CHLOR 105 CO2 26 ANION 13 BUN 8 CREAT 0.69 CHEM: Recent Labs 09/21/18 0015 ALB 4.1 TPROT 8.3* CA 8.8 HEPATIC: Recent Labs 09/21/18 0015 ALKPHOS 88 ALT 62 AST 31 TBILI 0.3 LIPASE 214 URINALYSIS: Recent Labs 09/21/18 0330 SPGR 1.026 UGLUC NEGATIVE UBILI NEGATIVE UKET NEGATIVE UPROT NEGATIVE UROBIL 0.[address] abdomen (09/20/2018) IMPRESSION: 1. ?Abnormal findings referable to bowel and mesentery in the pelvis. Differential considerations include diverticulitis, sequelae of prior inflammatory?change with scarring, adhesions, and/or fistulous tracts, and a carcinoid tumor. 2. ?Question nonspecific enteritis. 3. ?Details and additional observations as described. 4. There is a stellate area of soft tissue attenuation within the pelvis immediately superior to the bladder measuring 1.6 x 2.8 x 1.3 cm in size ASSESSMENT AND PLAN Assessment AND Plan, all Hosp Problems Active Hospital Problems as of 09/21/2018 Noted - Resolved A * (Principal)Diverticulitis, colon 09/21/2018 - Present Current Assessment AND Plan - Recent diverticulitis with sigmoid abscess, treated with cipro+flagyl and percutaneous drain at [facility] (08/28-09/02), ED visit 09/09/18 for abdomen pain with CT showing no acute process - Colonoscopy 2013 normal except for internal hemorrhoids - Today, CT findings with no drainable abscess/obstruction, suspicious for changes relate to prior inflammation/stricture/fistula. No pancreatic changes, no appendicitis. Plan - Will continue cipro and flagyl till . Consider changing the abx to Zosyn if the patient worsens clinically - WBC 09/09/18 12.5, today 10 - NPO for now, progress diet as tolerated - IVF - Will c/s gen sx given recurrent symptoms in setting of above mentioned CT findings - Pain control with toradol - Ondansetron IV/PO Abdominal mass -The soft tissue attenuation within the pelvic measuring 1.6?2.8?1.3 cm in size, unknown nature. -Surgery service consulted, appreciate recommendations. -Interventional radiology service will be consulted if needed. C Leukocytosis 09/21/2018 - Present Current Assessment AND Plan - Improving, compared to 09/09/18 Unprioritized Bipolar disorder (HCC) 11/29/2009 - Present Medication and Non-Pharmacologic VTE Prophylaxis/Anticoagulants Anticoagulant AND Antiplatelet Medications Start Dose Route Frequency Ordered Stop 09/21/18 0530 enoxaparin 40 mg injection (LOVENOX) (Medical At Risk ) 40 mg SUBCUTANEOUS EVERY 24 HOURS 09/21/18 0520 -- 09/21/18 0530 pneumatic compression stockings (md,wa) 09/21/18 0530 activity - mobilize patient ([place], [place]) VTE Prophylaxis: VTE prophylaxis appropriate Plan of care discussed with: Attending SIGNATURE: Be Nevarez Cha, MD PATIENT NAME: Ruthie Castillo DATE: September 21, 2018 TIME: 11:52 AM PAGER/CONTACT #: Pager: [phone] HISTORY PHYSICAL Observed: 09/21/2018 Status: COMPLETED Source: [facility] 5:31 AM [facility] OTHER CAMPUS REPOSITORY HNO ID: [id number] Author: Carmen Espinoza Service: Hospital Medicine Author Type: Physician Type: HANDP Filed: 09/21/2018 6:51 PM Note Text: SERVICE DATE: 09/21/2018 SERVICE TIME: 5:31 AM HOUSE MEDICINE SERVICE HISTORY AND PHYSICAL PCP: Berna Wren CNP Admitting Attending: Carmen Espinoza SUBJECTIVE Chief Complaint: Abdominal pain HPI: This is a 28 year old male with who was recently diagnosed to have diverticulitis with sigmoid abscess s/p percutaneous drain placed at [facility] (patient says drain was removed as it was not draining anything) who was discharged on oral cipro and flagyl, comes in with worsening abdominal pain 6-8/10, lower quadrant, colicky, non radiating, worse when he tries to evacuate his bowel with no relieving factors. He was discharged on 09/02 and went back to [facility] ED with same complaints, CT abdomen was done which showed the same size of abscess due to which he was discharged with the same antibiotics and pain meds. He says he has some nausea. No fever, chills. Patient was diagnosed with irritable bowel syndrome 1 year back and has been having intermittent diarrhea and constipation. He says for the past 10 days he has been having about 4 episodes of foul smelling greenish loose stools, non bloody. No similar complaints in the past. Had colonoscopy 3 years back with internal hemorrhoids being the only positive finding. H/o colon cancer in grandfather and uncle at the age of 78 and 65 respectively. Says he has high BP but not on any meds. Smoker+, 0.5 PPD for 5 years, no alcohol or recreational drug use. Review of Systems: Negative except as mentioned above PAST MEDICAL HISTORY Diagnosis Date - Adjustment disorder with depressed mood - Attention deficit disorder with hyperactivity(314.01) - Bipolar I disorder, most recent episode (or current) unspecified - Diverticulitis - Hypertension - IBS (irritable bowel syndrome) - PMH - PAST MEDICAL HISTORY OF SKULL FRACTURE @ 2YEARS OF AGE - PMH - PAST MEDICAL HISTORY OF LEFT ARM FRACTURE @ 13 YEAR OF AGE - Problems with learning - Snoring PAST SURGICAL HISTORY Procedure Laterality Date - COLONOSCOP W/ OR W/O [facility] SPEC 09/15/2014 Colonoscopy - PAST SURGICAL HISTORY OF 2007 9 plantar warts right foot - PAST SURGICAL HISTORY OF 2011 testicular FAMILY HISTORY Problem Relation Age of Onset - other (FIBROMYLAGIA [Other]) Mother - other (OSTEOARHTRITIS [Other]) Mother - other (DISASSOCIATIVE IDENTITY DISORDER [Other]) Mother - other (CONVERSION DISORDER [Other]) Mother SEIZURE D/T THIS - Asthma Maternal Grandmother - COPD Maternal Grandmother - Heart Maternal Grandfather Social History Substance Use Topics - Smoking status: Current Every Day Smoker Packs/day: 0.00 Years: 1.00 Types: Cigarettes - Smokeless tobacco: Former User Comment: 3 cigarettes per day - Alcohol use Yes Comment: rarely Medications: Prescriptions Prior to Admission: clonazePAM (KLONOPIN) 1 mg tablet TWICE A DAY Disp: Rfl: gabapentin (NEURONTIN) 100 mg capsule Take 100 mg by mouth three times daily with meals. Disp: Rfl: metroNIDAZOLE (FLAGYL) 500 mg tablet 3 TIMES DAILY WITH MEALS Disp: Rfl: pantoprazole DR (PROTONIX) 20 mg tablet TWICE A DAY Disp: Rfl: promethazine (PHENERGAN) 25 mg tablet Take 25 mg by mouth every 6 hours as needed. Disp: Rfl: CPAP Initiate CPAP @ 11 cm of water with humidification. Mask (per patient preference) optional chin strap (if indicated) , filters, tubing, humidifier and lifetime supplies. Disp: 1 Device Rfl: 0 09/14/2014 at 2200 omeprazole (PRILOSEC) 20 mg capsule Take 1 capsule by mouth daily before breakfast. 1/2 hr before meal. Disp: 30 capsule Rfl: 1 oxyCODONE-acetaminophen (PERCOCET) 5-325 mg tablet Take 1 tablet by mouth. Disp: Rfl: 0 Allergies: ALLERGIES Allergen Reactions - Bees Anaphylaxis - Compazine [Prochlor* Intolerance lock jaw - Mushroom Combinatio* Hives - Nyquil [Doxylamin-P* Shortness of Breath - Poison Mimi Rash OBJECTIVE: Vital Signs: BP 132/82 Pulse 60 Temp (Src) 98.1 (Oral) Resp 16 Ht 6' 0 (1.83m) Wt 265 lb (120.2kg) SpO2 95% BMI 35.93 kg/(m2). Physical Exam Performed: GENERAL: Obese, Moderate Distress, Cooperative EYES: PERRLA, EOMI NECK: No jugulovenous distention, No carotid bruits, Carotid pulse normal contour, Supple BACK: Back symmetric, Normal curvature, ROM normal, No CVAT. LUNGS: Lungs clear to auscultation, Good diaphragmatic excursion CARDIAC: Normal S1 and S2; no rubs, murmurs, or gallops ABDOMEN: Tenderness to RLQ and LLQ, no guarding/rigidity, BS hypoactive EXTREMITIES: Extremities normal, no deformities, edema, clubbing or skin discoloration. Good capillary refill. Lines, Drains, and Airways Line Peripheral 09/20/18 4442 Admission to Hospital Short Right Antecubital 20 Gauge less than 1 day Data: Labs: CBC: Recent Labs 09/21/18 0015 WBC 10.28* HB 14.6 HCT 43.9 PLT 342 MCV 88.0 COAG: No results for input(s): APTT, INR in the last 168 hours. BMP: Recent Labs 09/21/18 0015 GLUC 123* NA 140 K 3.8 CHLOR 105 CO2 26 ANION 13 BUN 8 CREAT 0.69 CHEM: Recent Labs 09/21/18 0015 ALB 4.1 TPROT 8.3* CA 8.8 HEPATIC: Recent Labs 09/21/18 0015 ALKPHOS 88 ALT 62 AST 31 TBILI 0.3 LIPASE 214 URINALYSIS: Recent Labs 09/21/18 0330 SPGR 1.026 UGLUC NEGATIVE UBILI NEGATIVE UKET NEGATIVE UPROT NEGATIVE UROBIL 0.2 UWBC 0.3 CARDIAC: No results for input(s): CKTEST, CKMB, CKMBP in the last 168 hours.TROPONIN@:8,No results found for: BNP:8)@ No intake or output data in the 24 hours ending 09/21/18 0531 Serum creatinine: 0.69 mg/dL 09/21/1814 Estimated creatinine clearance: 213.3 mL/min Patient discussed with Carmen Espinoza CT A/P: 1. ?Abnormal findings referable to bowel and mesentery in the pelvis. ? Differential considerations include diverticulitis, sequelae of prior inflammatory ?change with scarring, adhesions, and/or fistulous tracts, and a carcinoid tumor. 2. ?Question nonspecific enteritis. 3. ?Details and additional observations as described. CARE COORDINATION: No Patient Care Coordination Note on file. Assessment AND Plan, all Hosp Problems Active Hospital Problems as of 09/21/2018 Noted - Resolved Hospital Bipolar disorder (HCC) 11/29/2009 - Present * (Principal)Diverticulitis, colon 09/21/2018 - Present Current Assessment AND Plan - Recent diverticulitis with sigmoid abscess, treated with cipro+flagyl and percutaneous drain at [facility] (08/28-09/02), ED visit 09/09/18 for abdomen pain with CT showing no acute process - Colonoscopy 2013 normal except for internal hemorrhoids - Today, CT findings with no drainable abscess/obstruction, suspicious for changes relate to prior inflammation/stricture/fistula Plan - Will continue cipro and flagyl till . Consider changing the abx to Zosyn if the patient worsens clinically - WBC 09/09/18 12.5, today 10 - NPO for now, progress diet as tolerated - IVF - Will c/s gen sx given recurrent symptoms in setting of above mentioned CT findings - Pain control with toardol - Ondansetron IV/PO - C diff Leukocytosis 09/21/2018 - Present Current Assessment AND Plan - Improving, compared to 09/09/18 Medication and Non-Pharmacologic VTE Prophylaxis/Anticoagulants Anticoagulant AND Antiplatelet Medications Start Dose Route Frequency Ordered Stop 09/21/18 0530 enoxaparin 40 mg injection (LOVENOX) (Medical At Risk ) 40 mg SUBCUTANEOUS EVERY 24 HOURS 09/21/18 0520 -- 09/21/18 0530 pneumatic compression stockings ([place]) 09/21/18 0530 activity - mobilize patient ([place]) VTE Prophylaxis: VTE prophylaxis appropriate SIGNATURE: Alissa Jeong MD PATIENT NAME: Ruthie Castillo DATE: September 21, 2018 TIME: 5:31 AM PAGER/CONTACT #: [phone] URINALYSIS ROUTINE Collected: 09/21/2018 Status: F Source: [facility] 3:30 AM HEALTH SYSTEM REPOSITORY TYPE CODE TESTS RESULT OUT OF REFERENCE UNITS RANGE LAB COLOR(LOIN C) Urine Color YELLOW LAB APPUR(LOIN C) Urine Appearance CLEAR LAB GLUUR(LOIN Negative mg/dL C) Glucose Urine NEGATIVE LAB KETON(LOIN Negative mg/dL C) Ketone Urine NEGATIVE LAB HGBUR(LOIN Negative C) Hemoglobin,Urine NEGATIVE LAB PROTU(LOIN Negative mg/dL C) Protein Urine NEGATIVE LAB NITRI(LOIN Negative C) Nitrites Urine NEGATIVE LAB BILIU(LOIN Negative C) Bilirubin Urine NEGATIVE LAB SPG(LOINC) 1.005-1.030 Specific [place], Ur 1.026 LAB PHUR(LOINC 5.0-8.0 ) pH,Urine 6.0 LAB UROBI(LOIN 0.0-1.0 EU/dL C) Urobilinogen,Ur 0.2 LAB LEUKO(LOIN Negative C) Leukocytes NEGATIVE Esterase LAB RBCU1(LOIN 0.0-5.0 /hpf C) RBC,Urine 2.0 LAB WBCU1(LOIN 0.0-5.0 /hpf C) WBC, Urine 0.3 LAB EPIT1(LOIN 0.0-5.0 /hpf C) Ep Cells Urine 0.8 LAB BACT1(LOIN None C) Bacteria Urine NONE LAB HYCA1(LOIN 0.0-1.0 /lpf C) Hyaline Cast 0.0 Performed By: #### URIN2 #### [facility] [address] [place], [place] [address] CT ABDOMEN AND PELVIS Observed: 09/21/2018 Status: F Source: [facility] WITH CONTRAST 2:12 AM HEALTH SYSTEM REPOSITORY Performed at [facility] APPROVED BY: CAROLINE IBANEZ DO EXAMINATION/TECHNIQUE: CT ABDOMEN AND PELVIS WITH CONTRAST; CT of the abdomen and pelvis was performed with 150 mL of Omnipaque 300 intravenous contrast using standard technique. CT Dose Reduction Employed: Automated exposure control (AEC) REASON FOR EXAM: Abd pain, fever, no recent surgery; history of diverticulitis, abscess COMPARISON: None. FINDINGS: It Business Analyst: No additional finding. Lower Thorax: Bibasilar atelectasis. Liver: Hepatic steatosis. Biliary: No bile duct dilation. Gallbladder is collapsed. Pancreas: Unremarkable. Spleen: Unremarkable. Adrenals: Unremarkable. Kidneys/Ureters: Small low-attenuation areas, too small to fully characterize but likely cysts. Mild prominence of the collecting systems. No acute urinary tract obstruction. Pelvis: Mild bladder distention; no wall thickening. Gastrointestinal tract: Suspect mild wall thickening involving a segment of sigmoid colon (axial image 115) with adjacent fat stranding medially; an early or mild diverticulitis in the differential. Mcintyre bmucosal fat attenuation is noted involving the terminal ileum. This can be associated with chronic inflammatory bowel disease such as Crohn's, but has also been observed in patients without any histor y of prior gastrointestinal disease, in patients who are obese, and with undistended bowel loops. No evidence of appendicitis. Stomach is incompletely distended. Question mild wall thickening involving segments of small bowel in the RIGHT lower quadrant. Vasculature: Major arteries appear patent. Lymph nodes: No lymph node enlargement. Mesentery/Peritoneum: No ascites. No free air. There is a stellate area of soft tissue attenuation within the pelvis immediately superior to the bladder measuring 1.6 x 2.8 x 1.3 cm in size; adjacent bandlike areas of soft tissue attenuation and mesenteric fat stranding extends to adjacent bowel loops including the aforementioned segment of suspected slightly thick-walled sigmoid colon. Sequelae of prior inflammatory change with scarring, adhesions, and/or fistulous tracts are in the differential. An entity such as a carcinoid tumor is probably less likely but unfortunately is in the differentia l given the stellate appearance. No drainable abscess. Bones/Soft tissues: Mild degenerative changes. No acute or suspicious osseous finding. IMPRESSION: 1. Abnormal findings referable to bowel and mesentery in the pelvis. Differential considerations include diverticulitis, sequelae of prior inflammatory change with scarring, adhesions, and/or fistulou s tracts, and a carcinoid tumor. 2. Question nonspecific enteritis. 3. Details and additional observations as described. END OF IMPRESSION ED NOTE Observed: 09/21/2018 Status: COMPLETED Source: [facility] 1:16 AM [facility] REPOSITORY HNO ID: [id number] Author: Geena (Rn) JUANA Marie Service: Emergency Medicine Author Type: Registered Nurse Type: ED Notes Filed: 09/21/2018 1:16 AM Note Text: Pt given warm blanket and lights dimmed for comfort. ED PROV NOTE Observed: 09/21/2018 Status: COMPLETED Source: [facility] 12:42 AM [facility] REPOSITORY HNO ID: [id number] Author: Erik Rutledge MD Service: Emergency Medicine Author Type: Physician Type: ED Provider Notes Filed: 09/21/2018 12:43 AM Note Text: Attending Note I personally saw and examined the patient. I reviewed the resident's note. I agree with the resident's assessment and plan unless otherwise noted. I supervised the vines portion(s) of procedures performed on this patient by the resident physician. Physical Exam Item(s): Right lower quadrant tenderness with guarding, positive bowel sounds heart regular rate and rhythm lungs clear normal vital signs This is a 28 year old male presenting with Abdominal Pain (Pt arrives via EMS c/o increasing abd pain. Pt is dx with diverticulitis and abcess on colon. Pt states he has been taking his pain meds at home without relief and did not want to take too much of his medicine. Pt states he has micropolyps per [facility] that he needs surgery on. ) Patient had diverticulitis with colonic abscess treated nonsurgically at [facility] discharged home on Flagyl reporting with increased pain in the right lower quadrant. We will obtain CT imaging and labs and urinalysis for comparison and reevaluate. Erik Rutledge MD 09/21/18 0043 HEMOGRAM/DIFF Collected: 09/21/2018 Status: F Source: [facility] 12:15 AM HEALTH SYSTEM REPOSITORY TYPE CODE TESTS RESULT OUT OF REFERENCE UNITS RANGE LAB WBC(LOINC) 4.23-9.07 thou/cmm WBC High 10.28 LAB RBC(LOINC) 4.63-6.08 mil/cmm RBC 4.99 LAB HGB(LOINC) 13.7-17.5 g/dL Hgb 14.6 LAB HCT(LOINC) 40.1-51.0 % Hct 43.9 LAB MCV(LOINC) 83.2-95.6 fl MCV 88.0 LAB MCH(LOINC) 25.7-32.2 pg MCH 29.3 LAB MCHC(LOINC 32.3-36.5 % ) MCHC 33.3 LAB RDW(LOINC) 11.6-14.4 % RDW 13.5 LAB RDWSD(LOIN 36.1-45.8 fl C) RDW SD 43.8 LAB PLT(LOINC) 141-365 thou/cmm Platelet 342 LAB MPV(LOINC) 8.7-12.0 fl MPV 10.6 LAB SEG(LOINC) % Seg Neutrophil 56.5 LAB IGRE(LOINC % ) Immature Grans 0.60 LAB LYMPH(LOIN % C) Lymphocyte 20.9 LAB MNO(LOINC) % Monocyte 4.0 LAB EOSIN(LOIN % C) Eosinophil 17.5 LAB BASO(LOINC % ) Basophil 0.5 LAB SEGN(LOINC 1.78-5.38 thou/cmm ) Abs. Neut High (ANC) 5.81 LAB IGAB(LOINC 0.00-0.05 thou/cmm ) Abs High Immature Grans 0.06 LAB LYMN(LOINC 0.84-2.85 thou/cmm ) Abs. Lymph 2.15 LAB MONON(LOIN 0.30-0.82 thou/cmm C) Abs. Worth 0.41 LAB EOSN(LOINC 0.04-0.54 thou/cmm ) Abs. Eosin High 1.80 LAB BASON(LOIN 0.01-0.08 thou/cmm C) Abs. Baso 0.05 LAB PATH(LOINC ) Interpreted by See below Result Comment: Karthik Morse M.D., Pathologist Performed By: #### [id number] #### [place] [address] COMPREHENSIVE PANEL Collected: 09/21/2018 Status: F Source: [facility] 12:15 AM HEALTH SYSTEM REPOSITORY TYPE CODE TESTS RESULT OUT OF REFERENCE UNITS RANGE LAB NA(LOINC) 136-145 mEq/L Sodium Blood 140 LAB K(LOINC) 3.5-5.1 mEq/L Potassium Blood 3.8 LAB CL(LOINC) 98-107 mEq/L Chloride Blood 105 LAB CO2(LOINC) 21-32 mEq/L CO2 Blood 26 LAB GLU(LOINC) 70-99 mg/dL Glucose High Blood 123 LAB BUN(LOINC) 7-18 mg/dL BUN Blood 8 LAB CREA(LOINC 0.67-1.17 mg/dL ) Creatinine Blood 0.69 LAB CA(LOINC) 8.5-10.1 mg/dL Calcium Blood 8.8 LAB ALB(LOINC) 3.4-5.0 g/dL Albumin Blood 4.1 LAB TP(LOINC) 6.4-8.2 g/dL Total High Protein 8.3 LAB AST(LOINC) 9-37 U/L AST-SGOT Blood 31 LAB ALT(LOINC) 12-78 U/L ALT-SGPT Blood 62 LAB ALKP(LOINC 46-116 U/L ) Alk Phosphatase 88 LAB BILIT(LOIN 0.2-1.0 mg/dL C) Total Bilirubin 0.3 LAB ANGAP(LOIN 8-16 C) Anion Gap 13 Performed By: #### P14 #### [place] [address] LIPASE BLOOD Collected: 09/21/2018 Status: F Source: [facility] 12:15 AM HEALTH SYSTEM REPOSITORY TYPE CODE TESTS RESULT OUT OF REFERENCE UNITS RANGE LAB LIP(LOINC) 73-393 U/L Lipase Blood 214 Performed By: #### LIP #### [place] [address] ED PROV NOTE Observed: 09/20/2018 Status: COMPLETED Source: [facility] 11:59 PM CLINIC OTHER CAMPUS REPOSITORY O ID: [id number] Author: Erik Rutledge MD Service: Emergency Medicine Author Type: Physician Type: ED Provider Notes Filed: 09/22/2018 5:41 PM Note Text: ED Provider Note Patient Name: Ruthie Castillo SERVICE DATE: 09/20/18 History Patient presents with: Abdominal Pain: Pt arrives via EMS c/o increasing abd pain. Pt is dx with diverticulitis and abcess on colon. Pt states he has been taking his pain meds at home without relief and did not want to take too much of his medicine. Pt states he has micropolyps per [facility] that he needs surgery on. Patient is a 28-year-old male with a past medical history significant for bipolar 1, diverticulitis, and an abdominal colonic abscess who presents to emergency department with worsening abdominal pain that has been present for the last 2 days. Patient states pain is worse with change of positions especially with sitting up. Patient also endorses nausea with no vomiting. Patient however denies fevers, chills, chest pain, shortness of breath or diarrhea or constipation. History provided by: Patient financial engineer used: No PAST MEDICAL HISTORY Diagnosis Date - Adjustment disorder with depressed mood - Attention deficit disorder with hyperactivity(314.01) - Bipolar I disorder, most recent episode (or current) unspecified - Diverticulitis - Hypertension - IBS (irritable bowel syndrome) - PMH - PAST MEDICAL HISTORY OF SKULL FRACTURE @ 2YEARS OF AGE - PMH - PAST MEDICAL HISTORY OF LEFT ARM FRACTURE @ 13 YEAR OF AGE - Problems with learning - Snoring PAST SURGICAL HISTORY Procedure Laterality Date - COLONOSCOP W/ OR W/O [facility] SPEC 09/15/2014 Colonoscopy - PAST SURGICAL HISTORY OF 2007 9 plantar warts right foot - PAST SURGICAL HISTORY OF 2011 testicular FAMILY HISTORY Problem Relation Age of Onset - other (FIBROMYLAGIA [Other]) Mother - other (OSTEOARHTRITIS [Other]) Mother - other (DISASSOCIATIVE IDENTITY DISORDER [Other]) Mother - other (CONVERSION DISORDER [Other]) Mother SEIZURE D/T THIS - Asthma Maternal Grandmother - COPD Maternal Grandmother - Heart Maternal Grandfather Social History Social History Main Topics - Smoking status: Current Every Day Smoker Packs/day: 0.00 Years: 1.00 Types: Cigarettes - Smokeless tobacco: Former User Comment: 3 cigarettes per day - Alcohol use Yes Comment: rarely - Drug use: No - Sexual activity: Not on file ALLERGIES Allergen Reactions - Bees Anaphylaxis - Compazine [Prochlor* Intolerance lock jaw - Mushroom Combinatio* Hives - Nyquil [Doxylamin-P* Shortness of Breath - Poison Mimi Rash Review of Systems Constitutional: Negative for activity change, chills and fever. HENT: Negative for postnasal drip, rhinorrhea, sore throat, trouble swallowing and voice change. Eyes: Negative for pain, discharge and itching. Respiratory: Negative for cough, shortness of breath and wheezing. Cardiovascular: Negative for chest pain and palpitations. Gastrointestinal: Positive for abdominal pain and nausea. Negative for blood in stool and constipation. Genitourinary: Negative for decreased urine volume, dysuria, flank pain and hematuria. Musculoskeletal: Negative for arthralgias and back pain. Skin: Negative for color change, pallor and rash. Neurological: Negative for dizziness, syncope and light-headedness. Psychiatric/Behavioral: Negative for confusion. Physical Exam BP 129/95 Pulse 89 Temp (Src) 98.1 (Oral) Resp 21 Ht 6' 0 (1.83m) Wt 265 lb (120.2kg) SpO2 96% BMI 35.93 kg/(m2). Physical Exam Constitutional: No distress. HENT: Mouth/Throat: Oropharynx is clear and moist. No oropharyngeal exudate. Eyes: Right eye exhibits no discharge. Left eye exhibits no discharge. Neck: No tracheal deviation present. Cardiovascular: Normal rate, regular rhythm and normal heart sounds. No murmur heard. Pulmonary/Chest: Effort normal and breath sounds normal. No stridor. No respiratory distress. He has no wheezes. He has no rales. Abdominal: Soft. Bowel sounds are normal. There is tenderness. Patient with tenderness to palpation in the right medial abdomen with positive bowel sounds in the area of induration and fluctuance next to the umbilicus on the right side. Lymphadenopathy: He has no cervical adenopathy. Skin: Skin is warm. Capillary refill takes less than 2 seconds. He is not diaphoretic. No erythema. No pallor. Diagnostic Testing ED Labs Ordered and Reviewed - No data to display Procedures ED Course / Clinical Impression Clinical Impressions as of Sep 22 1740 Diverticulitis Abdominal pain, RLQ MDM / Disposition / Plan This is a 28-year-old male with a history of an abdominal abscess presenting the emergency department with worsening right abdominal pain with nausea with no vomiting fevers or chills. Patient's presentation is concerning for worsening abdominal abscess, diverticulitis and less likely due to appendicitis at the pain has no tenderness to the right lower quadrant has no change in appetite and has no fevers or chills. Patient's workup included a CMP, lipase, CBC and CT abdomen and pelvis. Workup was remarkable for slight leukocytosis with a white count of 10.28 with a left shift, CMP which was unremarkable, lipase which was also unremarkable, and a CT abdomen and pelvis which revealedAbnormal findings referable to bowel and mesentery in the pelvis. Differential considerations include diverticulitis, sequelae of prior inflammatory change with scarring, adhesions, and/or fistulous tracts, and a carcinoid tumor. Question nonspecific enteritis. Details and additional observations as described. I discussed imaging and lab results with the patient. Educated the patient that since he had failed outpatient management with metronidazole will plan on admitting him to the hospital for IV antibiotics. Patient was given the first dose of ciprofloxacin and Flagyl in the emergency department. The patient verbalized understanding of information given and agreed to this treatment plan. The patient was admitted to house medicine under Dr. Espinoza in stable condition. Additional Tests or Interventions: IV Fluids IV fluids were given for the following reasons routine maintenance. Disposition The patient was admitted. Admitted to Regular Nursing Floor. SIGNATURE: MD Concepción Sanchez (Res) MD Marek Resident 09/21/18 0429 Erik Rutledge MD 09/22/18 1741 ED NOTE Observed: 09/20/2018 Status: COMPLETED Source: [facility] 11:33 PM CLINIC OTHER CAMPUS REPOSITORY O ID: [id number] Author: Kenneth (Medic) Bill Hill Service: (none) Author Type: Tiller Worker and Doorshaker Type: ED Notes Filed: 09/20/2018 11:33 PM Note Text: Bed: 20-ED Expected date: 09/20/18 Expected time: 11:22 PM Means of arrival: Rajesh Anderson FD Comments: Rajesh helm pain EMERGENCY DEPARTMENT Observed: 09/10/2018 Status: F Source: [place] [facility] SUMMARY 12:35 AM [facility] REPOSITORY [facility] Medical Records Department [address] [place] [address] Emergency Department Summary 09/09/18 1630 MR#: [id number] Acct: [id number] Name: RUTHIE CASTILLO Rep #: [id number] : 1990 28 From: Rianna Lomas MD PCP: RAMAN Mendes Status: DEP [...] Intractable pain This note was generated with [employer] dictation software. It may contain incorrect words, [...] your Primary Care Provider. Call [facility] ([phone]) or report to the closest Emergency Room. Call 911 if necessary. 09/10/18 0035 <Electronically signed by Rianna Lomas MD> Date Rianna Lomas MD Cosigner Signature (If Indicated): Date CC: RAMAN Wren CONSULTATION Observed: 09/09/2018 Status: F Source: NIRSEEN 9:20 PM [facility] REPOSITORY [facility] Medical Records Department [address] [place] [address] Consultation 09/09/18 1837 MR#: [id number] Acct: [id number] Name: MATILDERUTHIE Jung Jamey Rep #: [id number] : 1990 28 From: Vika Finch DO [...] He was not given a narcotic at DC but, was told to take Motrin as [...] of a diverticular abscess Code Visit Inpatient Raine GUTIERREZ M: [id number] Subs Hosp L2 09/09/182119 <Electronically signed by Vika Finch DO> Date M Lor Wright Signature (if applicable): Date CC: RAMAN Wren; Roxi Weiss MD Signed ABDOMEN/PELVIS W IV CONT Observed: 09/09/2018 Status: F Source: N[place]RE[place] ONLY 3:49 PM [facility] REPOSITORY [facility] Imaging Services [address] [place] [address] Abdomen/Pelvis W IV Cont ONLY MR#: [id number] Acct: [id number] Name: RUTHIE CASTILLO Rep #: [id number] : 1990 M 28 From: Armando Rebollar MD PCP: RAMAN Mendes Status: REG ER Study: Abdomen/Pelvis W IV Cont ONLY Date of Exam: 09/09/18 Exam# [id number] Ordering Dr: Rianna Lomas MD STUDY: CT ABDOMEN AND PELVIS [...] , Service support , CC: RAMAN Wren; Rianna Lomas Kennel Assistant: Signed CBC W/DIFF, AUTOMATED Collected: 09/09/2018 Status: F Source: [place] 3:40 PM [facility] REPOSITORY TYPE CODE TESTS RESULT OUT OF [...] Lymph 2.20 Performed By: #### L100.0100 #### [facility] [address] [place], [address] BASIC METABOLIC Collected: 09/09/2018 Status: F Source: [place] [facility] PROFILE ([facility]) 3:40 PM [facility] REPOSITORY TYPE CODE TESTS RESULT OUT OF [...] Normal 13 Performed By: #### L500.2500 #### [facility] [address] [place], [address] DISCHARGE SUMMARY Observed: 09/08/2018 Status: F Source: [place] 2:15 PM [facility] REPOSITORY [facility] Medical Records Department [address] [place] [address] Discharge Summary 09/08/18 0905 MR#: [id number] Acct: [id number] Name: RUTHIE CASTILLO Rep #: [id number] : 1990 28 From: Thelma Musa MD PCP: RAMAN Mendes Status: DIS IN Y Location: ND3 AC204-8 Discharge Date and Diagnosis Date of Admission: [...] Chaka Burciaga MD at 13:40 EST Tel [phone], Service support , Abdomen/Pelvis CT 09/08/18 07:30 IMPRESSION: Decrease inflammatory changes within the sigmoid mesentery as well as decreased size of the previously seen abscess cavity presently measuring 2.5 cm x 2.1 cm. Electronically Signed: Chaka Burciaga MD at 8:27 EST Tel [phone], Service support , General surgery Operations: None [...] / 2733 1355 / 1355 Output Total 6 / 6 Balance 2163 / 2163 2727 [...] applicable Code Visit Inpatient E AND M: [id number] Disch Hosp 09/08/18 1415 <Electronically signed by Thelma Musa MD> Date Thelma Musa MD Cosigner Signature (if applicable): Date CC: RAMAN Wren; Thelma Musa MD Signed DISCHARGE INSTRUCTION Observed: 09/08/2018 Status: F Source: N[place] 9:05 AM [facility] REPOSITORY [facility] Records Department [address] [place] [address] Instructions for Home/Discharge Instructions 09/08/18 0900 MR#: [id number] Acct: [id number] Name: RUTHIE CASTILLO Rep #: [id number] : 1990 28 From: Thelma Musa MD [...] NyQuil] Allergy (Verified 09/04/18 00:14) Anaphylaxis poison mimi extract [Poison Mimi Extract] Allergy (Verified 09/04/18 00:14) Anaphylaxis pseudoephedrine [...] Week, Location: Laboratory Primary Care Physician: Berna Wren, RAMAN [Primary Care Provider] - Please follow up [...] Musa MD> Date Thelma Musa MD CC: JAMILAH-Jose Alfredo Wren; Brendon Rosales MD BASIC METABOLIC Collected: 09/08/2018 Status: F Source: [place] PROFILE (BMP) 5:47 AM [facility] REPOSITORY TYPE CODE TESTS RESULT OUT OF [...] Normal 10 Performed By: #### L500.2500 #### [facility] [address] [place], [address] CBC W/DIFF, AUTOMATED Collected: 09/08/2018 Status: F Source: [place] 5:27 AM [facility] REPOSITORY TYPE CODE TESTS RESULT OUT OF [...] Lymph 2.02 Performed By: #### L100.0100 #### [facility] [address] [place], [address] ABDOMEN/PELVIS WITH Observed: 09/08/2018 Status: F Source: [place] CONTRAST 12:00 AM [facility] REPOSITORY [facility] Imaging Services [address] [place] [address] Abdomen/Pelvis WITH Contrast MR#: [id number] Acct: [id number] Name: RUTHIE CASTILLO Rep #: [id number] : 1990 M 28 From: Chaka Burciaga MD PCP: RAMAN Mendes Status: ADM IN Study: Abdomen/Pelvis WITH Contrast Date of Exam: 09/08/18 Exam# [id number] Ordering Dr: Roxi Weiss MD STUDY: CT [...] Chaka Burciaga MD at 8:27 EST Tel [phone], Service support , CC: RAMAN Wren; Roxi Weiss MD Kennel Assistant: Signed CBC W/DIFF, AUTOMATED Collected: 09/07/2018 Status: F Source: [place] 5:38 AM [facility] REPOSITORY TYPE CODE TESTS RESULT OUT OF [...] Lymph 2.27 Performed By: #### L100.0100 #### [facility] [address] [place], [address] BASIC METABOLIC Collected: 09/07/2018 Status: F Source: [place] PROFILE ([facility]) 5:38 AM [facility] REPOSITORY TYPE CODE TESTS RESULT OUT OF [...] Normal 9 Performed By: #### L500.2500 #### [facility] [address] [place], [address] CBC W/DIFF, AUTOMATED Collected: 09/06/2018 Status: F Source: [place] 6:33 AM [facility] REPOSITORY TYPE CODE TESTS RESULT OUT OF [...] Lymph 1.69 Performed By: #### L100.0100 #### [facility] [address] [place], [place], [address] BASIC METABOLIC Collected: 09/06/2018 Status: F Source: [place] PROFILE ([facility]) 6:33 AM [facility] REPOSITORY TYPE CODE TESTS RESULT OUT OF [...] Normal 11 Performed By: #### L500.2500 #### [facility] [address] [place], [place], [address] URINALYSIS, COMPLETE Collected: 09/05/2018 Status: F Source: [place] 7:41 PM [facility] REPOSITORY Order Comment: How was Urine Obtained? TRAFFIC OFFICER TO SPECIFY TYPE CODE TESTS RESULT OUT [...] URINE SEEN Performed By: #### L400.0001 #### [facility] [address] [place], [address] CBC W/DIFF, AUTOMATED Collected: 09/05/2018 Status: F Source: [place] 9:23 AM [facility] REPOSITORY TYPE CODE TESTS RESULT OUT OF [...] Lymph 1.84 Performed By: #### L100.0100 #### [facility] [address] [place], [address] BASIC METABOLIC Collected: 09/05/2018 Status: F Source: [place] [facility] PROFILE ([facility]) 9:23 AM [facility] REPOSITORY TYPE CODE TESTS RESULT OUT OF [...] Normal 13 Performed By: #### L500.2500 #### [facility] [address] [place], [address] 12 LEAD ELECTROCARDIOGRAM Observed: 09/04/2018 Status: F Source: [place] 2:49 PM [facility] REPOSITORY [facility] Cardiovascular Services [address] [place] [address] 12 Lead EKG 08/30/18 0748 MR#: [id number] Acct: [id number] Name: RUTHIE CASTILLO Rep #: [id number] : 1990 28 From: Matty Wellington MD Attending Dr: Shasta Cueto Status: DIS IN Ordering Dr: Alba Burgos MD Date: 08/30/18 Location: [facility] Sex: M C Admitted: 08/28/18 Test Reason [...] Abnormal ECG Confirmed by JAY ANDRADE, MATTY ([id number]), news editor ORESTES GAR ([id number]) on 09/04/2018 2:49:21 PM Referred By: PAT Confirmed By:MATTY WELLINGTON MD 09/04/18 1449 Date Matty Wellington MD CC: Alba Burgos MD; RAMAN Wren; Shasta Cueto Signed 12 LEAD ELECTROCARDIOGRAM Observed: 09/04/2018 Status: F Source: [place] 2:46 PM [facility] REPOSITORY [facility] [address] [place] [address] 12 Lead EKG 09/02/18 0440 MR#: [id number] Acct: [id number] Name: RUTHIE CASTILLO Rep #: [id number] : 1990 28 From: Matty Wellington MD Attending Dr: Shasta Cueto Status: DIS IN Ordering Dr: Matty Marcos MD Date: 09/02/18 Location: [facility] Sex: M C Admitted: 08/28/18 Test Reason [...] wave progression Confirmed by JAY ANDRADE, MATTY ([id number]), news editor ORESTES GAR ([id number]) on 09/04/2018 2:45:56 PM Referred By: DIANNE Confirmed By:MATTY WELLINGTON MD 09/04/18 1445 Date Matty Wellington MD CC: RAMAN Wren; Shasta Cueto; Matty Marcos MD Signed BASIC METABOLIC Collected: 09/04/2018 Status: F Source: [place] PROFILE (BMP) 1:45 PM [facility] REPOSITORY Order Comment: PT IN PROCEDURE FWC [...] 7 Performed By: #### L500.2500, L501.5200 #### [facility] [address] [place], [place], [address] MAGNESIUM Collected: 09/04/2018 Status: F Source: [place] 1:45 PM [facility] REPOSITORY Order Comment: PT IN PROCEDURE FWC SPOKE WITH YONI RN TYPE CODE TESTS RESULT OUT OF RANGE REFERENCE UNITS LAB L501.5200 1.6-2.6 mg/dL Normal MG 2.0 Performed By: #### L500.2500, L501.5200 #### [facility] [address] [place], [address] PROTHROMBIN TIME W/INR Collected: 09/04/2018 Status: F Source: [place] 8:58 AM [facility] REPOSITORY TYPE CODE TESTS RESULT OUT OF RANGE REFERENCE UNITS LAB L300.4150 11.7-14.9 SECONDS High PROTIME 15.1 LAB L300.4200 Normal INR 1.2 Performed By: #### L300.3900, L300.4310 #### [facility] [address] [place], [place], [address] PARTIAL THROMBOPLAST Collected: 09/04/2018 Status: F Source: [place] TIME 8:58 AM [facility] REPOSITORY TYPE CODE TESTS RESULT OUT OF RANGE REFERENCE UNITS LAB L300.4310 24.1-36.2 Seconds Normal PTT 30.0 Performed By: #### L300.3900, L300.4310 #### [facility] [address] [place], [address] CT GUIDANCE ABSCESS Observed: 09/04/2018 Status: F Source: [place] DRG W/CATH 7:53 AM [facility] REPOSITORY [facility] Imaging Services [address] [place] [address] CT Guidance Abscess Drg w/Cath MR#: [id number] Acct: [id number] Name: RUTHIE CASTILLO Rep #: [id number] : 1990 M 28 From: Chaka Burciaga MD PCP: RAMAN Mendes Status: ADM IN Study: CT Guidance Abscess Drg w/Cath Date of Exam: 09/04/18 Exam# [id number] Ordering Dr: Shasta Cueto PROCEDURE: CT DIRECTED [...] Chaka Burciaga MD at 13:40 EST Tel [phone], Service support , CC: RAMAN Wren; Shasta Cueto Kennel Assistant: Signed HISTORY AND PHYSICAL Observed: 09/04/2018 Status: F Source: [place] EXAM 3:01 AM [facility] REPOSITORY [facility] Medical Records Department [address] [place] [address] History and Physical 09/04/18 0245 MR#: [id number] Acct: [id number] Name: RUTHIE CASTILLO Rep #: [id number] : 1990 28 From: Vika Finch DO PCP: RAMAN Mendes Status: ADM IN Location: [facility] YK312-6 Problem List (1) Colonic diverticular abscess Status: [...] GERD who was recently an inpatient at [facility] from 08/28/2018 until 09/02/2018. He was admitted and treated for acute sepsis secondary to acute sigmoid diverticulitis with microperforation. He was discharged home on Cipro, Flagyl, Phenergan, Motrin and Tylenol for pain. He returned to the emergency department at [facility] on 09/04/2018 complaining of increasing abdominal pain [...] NyQuil] Allergy (Verified 09/04/18 00:14) Anaphylaxis poison mimi extract [Poison Mimi Extract] Allergy (Verified 09/04/18 00:14) Anaphylaxis pseudoephedrine [...] in the a.m. by Dr. Burciaga Consult [place] [facility] to participate in management and [...] today Code Visit Inpatient E AND M: 13277 Init Hosp L3 09/04/18 0301 <Electronically signed by Vika Finch DO> Date Vika Finch DO Cosigner Signature: Date (if applicable) CC: RAMAN Wren; Sonam Finch; Roxi Weiss MD Signed EMERGENCY DEPARTMENT Observed: 09/04/2018 Status: F Source: [place] SUMMARY 2:50 AM [facility] REPOSITORY [facility] [address] [place] [address] Emergency Department Summary 09/04/18 0208 MR#: [id number] Acct: [id number] Name: RUTHIE CASTILLO Rep #: [id number] : 1990 28 From: Kulwinder Shukla MD [...] Diverticular abscess This note was generated with [employer] software. It may contain incorrect words, spelling, and punctuation that were not noted in review of the chart prior to signing ED Disposition - Plan for ED Patient: Chief Complaint: Abd Pain Referrals: Berna Wren, SALES FACILITATOR-C [Primary Care Provider] - What to do if you have Problems For any increased pain, shortness of breath, bleeding, nausea or vomiting, chest pain, or any unexpected problems, contact your Primary Care Provider. Call [facility] ([phone]) or report to the closest Emergency Room. Call 911 if necessary. 09/04/18 0250 <Electronically signed by Kulwinder Shukla MD> Date Kulwinder Shukla MD Cosigner Signature (If Indicated): Date CC: RAMAN Wren CBC W/DIFF, AUTOMATED Collected: 09/04/2018 Status: F Source: [place] 12:34 AM [facility] REPOSITORY TYPE CODE TESTS RESULT OUT OF [...] Lymph 1.48 Performed By: #### L100.0100 #### [facility] [address] [place], [address] COMPREHENSIVE METABOLIC Collected: 09/04/2018 Status: F Source: [facility] 12:34 AM [facility] REPOSITORY TYPE CODE TESTS RESULT OUT OF [...] 10 Performed By: #### L500.4050, L501.2450 #### [facility] [address] [place], [address] LIPASE Collected: 09/04/2018 Status: F Source: [place] 12:34 AM [facility] REPOSITORY TYPE CODE TESTS RESULT OUT OF RANGE REFERENCE UNITS LAB [facility].2450 73-393 U/L Normal LIPASE 161 Performed By: #### L500.4050, L501.2450 #### [facility] [address] [place], [address] ABDOMEN/PELVIS W IV CONT Observed: 09/04/2018 Status: F Source: [place] ONLY 12:16 AM [facility] REPOSITORY [facility] [address] [place] [address] Abdomen/Pelvis W IV Cont ONLY MR#: [id number] Acct: [id number] Name: RUTHIE CASTILLO Rep #: [id number] : 1990 M 28 From: Renny Girard MD PCP: RAMAN Mendes Status: REG ER Study: Abdomen/Pelvis W IV Cont ONLY Date of Exam: 09/04/18 Exam# [id number] Ordering Dr: Kulwinder Shukla MD STUDY: CT [...] , CC: RAMAN Wren; Kulwinder Shukla MD Kennel Assistant: Signed DISCHARGE SUMMARY Observed: 09/02/2018 Status: F Source: [place] 2:41 PM [facility] REPOSITORY [facility] Medical Records Department [address] [place] [address] Discharge Summary 09/02/18 1434 MR#: [id number] Acct: [id number] Name: RUTHIE CASTILLO Rep #: [id number] : 1990 28 From: Shasta Cueto PCP: Berna Wren SALES FACILITATOR-C Status: ADM IN Y [facility] Discharge Date and Diagnosis - Problem List [...] Tobacco use, GERD who presented to the [facility] ED on 08/28/18 with onset acute abdominal pain. CT A/P w/ evidence of acute diverticulitis of the sigmoid colon with microperforation but no well-defined abscess. Admission CBC w/ WBC 17.8 with left shift-->08/30/18 CBC w/ WBC 9.4 with improved shift. Admitted to ND, maintained on aggressive hydration, monitor I AND [...] 71 16 158/113 H 97 09/02/18 14:27 09/02/18 14:27 09/02/18 14:27 09/02/18 14:27 09/02/18 14:27 [...] applicable Code Visit Inpatient E AND M: 90450 Disch Hosp 09/02/18 1441 <Electronically signed by Shasta Cueto > Date Shasta Cueto Cosigner Signature (if applicable): Date CC: RAMAN Wren; Shasta Cueto Signed DISCHARGE INSTRUCTION Observed: 09/02/2018 Status: F Source: [place] 2:19 PM [facility] REPOSITORY [facility] Medical Records Department [address] [place] [place] [address] Instructions for Home/Discharge Instructions 09/02/18 1412 MR#: [id number] Acct: [id number] Name: RUTHIE CASTILLO #: [id number] : 1990 28 From: Shasta Cueto PCP: FIDE MendesC Status: ADM IN - Discharge Diagnoses Current [...] NyQuil] Allergy (Verified 08/18/17 14:25) Anaphylaxis poison mimi extract [Poison Mimi Extract] Allergy (Verified 08/18/17 14:25) Anaphylaxis pseudoephedrine [...] Shasta Cueto > Date Shasta Cueto CC: RAMAN Wren; Roxi Weiss MD BASIC METABOLIC Collected: 09/02/2018 Status: F Source: [place] PROFILE (BMP) 5:02 AM [facility] REPOSITORY TYPE CODE TESTS RESULT OUT OF [...] 9 Performed By: #### L500.2500, L501.4010 #### [facility] [address] [place], [place], [address] TROPONIN-I Collected: 09/02/2018 Status: F Source: [place] 5:02 AM [facility] REPOSITORY TYPE CODE TESTS RESULT OUT OF RANGE REFERENCE UNITS LAB L501.4010 <0.045 ng/mL Normal < 0.015 TROPONIN-I Result Comment: TROPONIN-I EXPECTED VALUES <0.045 Negative 0.045 - 0.590 Consistent with Cardiac Damage > OR = 0.600 Critical Value Not every elevated troponin is indicative of NH. These values should be used with clinical judgement in examining the patient's clinical picture for diagnosis. To establish a diagnosis of NH versus myocardial injury, there must be a demonstrated rise and/or fall in the troponin values, in addition to ischemic symptoms, EKG changes, new regional wall motion abnormality, and/or angiographical evidence. PLEASE NOTE: REFERENCE RANGES EDITED 18 Performed By: #### L500.2500, L501.4010 #### [facility] [address] [place], [place], [address] MAGNESIUM Collected: 09/02/2018 Status: F Source: [place] 5:02 AM [facility] REPOSITORY TYPE CODE TESTS RESULT OUT OF RANGE REFERENCE UNITS LAB L501.5200 1.6-2.6 mg/dL Normal MG 1.9 Performed By: #### L501.5200 #### [facility] [address] [place], [place], [address] BASIC METABOLIC Collected: 09/01/2018 Status: F Source: [place] PROFILE (BMP) 6:38 AM [facility] REPOSITORY TYPE CODE TESTS RESULT OUT OF [...] Normal 11 Performed By: #### L500.2500 #### [facility] [facility] [address] [place], [address] CBC W/DIFF, AUTOMATED Collected: 08/30/2018 Status: F Source: NISREEN 7:14 AM [facility] REPOSITORY TYPE CODE TESTS RESULT OUT OF [...] Lymph 0.77 Performed By: #### L100.0100 #### [facility] [address] [place], [address] CONSULTATION Observed: 08/29/2018 Status: F Source: [place] 11:57 AM [facility] REPOSITORY [facility] Medical Records Department [address] [place] [address] Consultation 08/28/184 MR#: [id number] Acct: [id number] Name: RUTHIE CASTILLO Rep #: [id number] : 1990 28 From: Roxi Weiss MD PCP: RAMAN Mendes Status: ADM IN Y Location: [facility] [id number] Reason for Consult Date of Consultation: 08/28/18 [...] NyQuil] Allergy (Verified 08/18/17 14:25) Anaphylaxis poison mimi extract [Poison Mimi Extract] Allergy (Verified 08/18/17 14:25) Anaphylaxis pseudoephedrine [...] of sigmoid diverticulitis Roxi Weiss M.D. Pager: [phone] [facility] [address] [place] [address], Outpatient [address], [address] [place] [address] Office: [phone] Code Visit Inpatient E AND M: 96211 Init Hosp L2 08/29/18 1157 <Electronically signed by Roxi Weiss MD> Date Roxi Weiss MD Cosigner Signature (if applicable): Date CC: RAMAN Wren; Roxi Weiss MD Signed CBC W/DIFF, AUTOMATED Collected: 08/29/2018 Status: F Source: [place] 5:34 AM [facility] REPOSITORY TYPE CODE TESTS RESULT OUT OF [...] Lymph 0.87 Performed By: #### L100.0100 #### [facility] [address] [place], [address] BASIC METABOLIC Collected: 08/29/2018 Status: F Source: [place] PROFILE ([facility]) 5:34 AM [facility] REPOSITORY TYPE CODE TESTS RESULT OUT OF [...] Normal 10 Performed By: #### L500.2500 #### [facility] [address] [place], [address] URINALYSIS, COMPLETE Collected: 08/29/2018 Status: F Source: [place] 12:25 AM [facility] REPOSITORY Order Comment: COLOR OF URINE MAY [...] URINE SEEN Performed By: #### L400.0001 #### [facility] [address] [place], [address] ABDOMEN/PELVIS WITHOUT Observed: 08/28/2018 Status: F Source: [place] CONT 8:23 PM [facility] REPOSITORY [facility] Imaging Services [address] [place] [address] Abdomen/Pelvis without Cont MR#: [id number] Acct: [id number] Name: RUTHIE CASTILLO Rep #: [id number] : 1990 M 28 From: Dakota Dunham MD PCP: RAMAN Mendes Status: ADM IN Study: Abdomen/Pelvis without Cont Date of Exam: 08/28/18 Exam# [id number] Ordering Dr: Jone Campbell MD ADDENDUM by Benedict Ledesma MD on 08/29/18 at 0046 ADDENDUM ADDENDUM was requested for comparison with study dated 08/28/2018 at 1:25 PM. Changes of sigmoid diverticulitis on this exam are stable compared to exam from earlier same day. Microperforation described on the current study is unchanged. Electronically Signed: Benedict Ledesma MD at 0:46 EST Tel , Service support , N.B. : JONE CAMPBELL MD, confirmed on 08/29/2018 00:27:41 (ET) that the referring physician received the results and did not require a verbal consultation. 08/29/1845 Date cc: RAMAN Wren; Jone Campbell MD * Signed ADDENDUM by Benedict Ledesma MD on 08/29/[address]/Abdomen/Pelvis without Cont 08/29/1852 Date cc: RAMAN Wren; Jone Campbell MD * Signed STUDY: CT ABDOMEN AND [...] abscess at this time N.B. : JONE CAMPBELL MD, confirmed on 08/29/2018 00:27:41 (ET) that the referring physician received the results and did not require a verbal consultation. Electronically Signed: Dakota Dunham MD at 22:04 EST , Service support , CC: RAMAN Wren; Jone Campbell MD Kennel Assistant: Signed EMERGENCY DEPARTMENT Observed: 08/28/2018 Status: F Source: [place] SUMMARY 5:45 PM [facility] REPOSITORY [facility] [address] [place] [address] Emergency Department Summary 08/28/18 1418 MR#: [id number] Acct: [id number] Name: RUTHIE CASTILLO Rep #: [id number] : 1990 28 From: Kulwinder Mac DO [...] with microperforation This note was generated with Trust Digitalation software. It may contain incorrect words, spelling, [...] your Primary Care Provider. Call [facility] ([phone]) or report to the closest Emergency Room. Call 911 if necessary. 08/28/18 1745 <Electronically signed by Kulwinder Mac DO> Date Kulwinder Mac DO Cosigner Signature (If Indicated): Date CC: SALES FACILITATORMassiel Wren HISTORY AND PHYSICAL Observed: 08/28/2018 Status: F Source: [place] EXAM 3:20 PM [facility] REPOSITORY [facility] Department [address] [place] [address] History and Physical 08/28/18 1513 MR#: [id number] Acct: [id number] Name: RUTHIE CASTILLO Rep #: [id number] : 1990 28 From: Ruiz Elaine DO [...] NyQuil] Allergy (Verified 08/18/17 14:25) Anaphylaxis poison mimi extract [Poison Mimi Extract] Allergy (Verified 08/18/17 14:25) Anaphylaxis pseudoephedrine [...] Chaka Burciaga MD at 13:51 EST Tel [phone], Service support , Assessment/Plan All Active Problems Diverticulitis (Acute) 1. Acute diverticulitis * Complicated with a small microperforation * Continue Zosyn * N.p.o. * If symptoms worsen, suggest repeat imaging and surgical consultation * Nonsurgical at this time 2. DVT prophylaxis with low molecular weight heparin Code Visit Inpatient E AND M: 74508 Init Hosp L3 08/28/18 1520 <Electronically signed by Ruiz Elaine DO> Date Ruiz Elaine [facility] Signature: Date (if applicable) CC: SALES FACILITATOR-Jose Alfredo Wren; Ruiz Elaine DO Signed LIVER PROFILE Collected: 08/28/2018 Status: F Source: NISREEN 1:55 PM [facility] REPOSITORY TYPE CODE TESTS RESULT OUT OF [...] BILI 0.20 Performed By: #### L500.3400 #### [facility] [address] [place], [address] LACTIC ACID Collected: 08/28/2018 Status: F Source: [place] 1:55 PM [facility] REPOSITORY Order Comment: Yes/No query for Sepsis Lactate Rule Y TYPE CODE TESTS RESULT OUT OF RANGE REFERENCE UNITS LAB L503.6005 0.4-2.0 mmol/L Normal LACTIC ACID 1.3 Performed By: #### L503.6005 #### [facility] [address] [place], [address] CBC W/DIFF, AUTOMATED Collected: 08/28/2018 Status: C Source: [place] 12:40 PM [facility] REPOSITORY TYPE CODE TESTS RESULT OUT OF [...] 08/29/18 1223 PATH REV previously reported as: Chantal eckert Performed By: #### L100.0100 #### [facility] [address] [place], [address] BASIC METABOLIC Collected: 08/28/2018 Status: F Source: [place] PROFILE (BMP) 12:40 PM [facility] REPOSITORY TYPE CODE TESTS RESULT OUT OF [...] 5 GAP Performed By: #### L500.2500 #### [facility] [address] [place], [address] ABDOMEN/PELVIS W IV CONT Observed: 08/28/2018 Status: F Source: [facility] 12:14 PM [facility] REPOSITORY [facility] Imaging Services [address] [place] [address] Abdomen/Pelvis W IV Cont ONLY MR#: [id number] Acct: [id number] Name: RUTHIE CASTILLO Rep #: [id number] : 1990 M 28 From: Chaka Burciaga MD PCP: RAMAN Mendes Status: REG ER Study: Abdomen/Pelvis W IV Cont ONLY Date of Exam: 08/28/18 Exam# [id number] Ordering Dr: Kulwinder Mac DO STUDY: CT [...] Chaka Burciaga MD at 13:51 EST Tel [phone], Service support , CC: RAMAN Wren; Kulwinder Mac DO Kennel Assistant: Signed PROGRESS Observed: 01/28/2018 Status: COMPLETED Source: [place] 9:15 AM [facility] REPOSITORY HNO ID: [id number] Author: Kristyn Palomino Service: (none) Author Type: Retail Business Analyst Type: Progress Notes Filed: 01/28/2018 9:17 AM Note Text: certified Letter returned Unclaimed Unable to forward. Kristyn Palomino MA PROGRESS Observed: 12/30/2017 Status: COMPLETED Source: [place] 9:14 AM [facility] REPOSITORY HNO ID: [id number] Author: Kristyn Palomino Service: (none) Author Type: Retail Business Analyst Type: Progress Notes Filed: 12/30/2017 9:18 AM Note Text: Mailed certified letter to patient. Kristyn Palomino MA PROGRESS Observed: 12/30/2017 Status: COMPLETED Source: [place] 9:12 AM [facility] REPOSITORY HNO ID: [id number] Author: Kristyn Palomino Service: (none) Author Type: Retail Business Analyst Type: Progress Notes Filed: 12/30/2017 9:18 AM Note Text: Call patient's cell phone and it has restrictions not to left my call go through. Kristyn Palomino MA PROGRESS Observed: 12/25/2017 Status: COMPLETED Source: [place] 5:26 PM [facility] [place] REPOSITORY HNO ID: [id number] Author: Nicolás Galarza Service: (none) Author Type: Physician Type: Progress Notes Filed: 12/30/2017 9:18 AM Note Text: Labs ordered Nicolás Galarza MD PROGRESS Observed: 12/25/2017 Status: COMPLETED Source: [place] 2:42 PM [facility] [place] REPOSITORY HNO ID: [id number] Author: Kristyn Plaomino Service: (none) Author Type: Retail Business Analyst Type: Progress Notes Filed: 12/30/2017 9:18 AM Note Text: PHMA TEAMLET DOCUMENTATION Provider Action/FYI: Patient needs appointment, needs labs ordered, CMP lipids . PSR Action/FYI: patient needs appointment scheduled Teamlet has identified patient by name and date of . Team: Lindsay Parker MA, Ofelia Wilkes MA, Kristyn Palomino MA, RUPERT Stock, Dr. Nicolás Galarza, Valeria Richey PSR, Valeria Reed, RN, BSN,CPNQ,CCM ? Last Office Visit:Visit date not found ? Next Office Visit: Visit date not found ? Last BP/Labs: Blood Pressure: Last 3 Encounter BP Readings: Date: BP: 11/05/2016 144/92 09/08/2014 128/70 08/25/2014 132/76 Lipids: No results found for: CHOL No results found for: HDL LDL Chol, [place] (mg/dL) Date Value 04/14/2009 153 No results found for: TG HGB A1C: No results found for: HBA1C TSH: No results found for: TSH) Care Gap: HTN - Last BP NOT under 140/90 Plan: ? Confirm PCP / Status ? Type of appointment needed follow up ? Consultation Appointments: Labs, HM and Immunization: Labs: CMP Lipids Kristyn Paloimno MA CNPTOUTREACH Observed: 12/25/2017 Status: COMPLETED Source: [place] 12:00 AM [facility] REPOSITORY Patient Outreach (FAMPWS) RUTHIE CASTILLO ([id number]) 1990 M Date Time Provider Department 12/25/17 KRISTYN PALOMINO (AMINA) FAMPWS During your visit today, we recorded the following information about you: Kristyn Palomino MA 12/30/2017 9:18 AM Signed PHMA TEAMLET DOCUMENTATION Provider Action/FYI: Patient needs appointment, needs labs ordered, CMP lipids . PSR Action/FYI: patient needs appointment scheduled Teamlet has identified patient by name and date of . Team: Lindsay Parker MA, Ofelia Wilkes MA, Kristyn Palomino MA, RUPERT Stock, Dr. Nicolás Galarza, Valeria [...] Letter returned Unclaimed Unable to forward. Kristyn Palomino MA Allergies As of Date: 12/25/2017 Noted Allergy Reaction BEES 02/25/2009 10 - Anaphylaxis COMPAZINE (PROCHLORPERAZINE EDISY*05/30/2010 5 - Intolerance Comments: lock jaw MUSHROOM COMBINATION NO.1 08/25/2014 4 - Hives POISON MIMI 02/28/2009 2 - Rash Date Reviewed: 11/09/2016 Reviewed by: Belen Troncoso Ct - Fully Assessed Reason for Visit: PHMA/Care Gap Outreach [3605] Primary Visit Diagnosis:Screening for hyperlipidemia [Z13.220] Other Visit Diagnosis:Routine general medical examination at a health care facility [Z00.00] Order(s):COMP METABOLIC PANEL [SQCMP] Order #: [id number] FUTURE LIPID PANEL BASIC [SQLIPB] Order #: [id number] FUTURE Prescriptions as of 12/25/2017 Sig: OMEPRAZOLE [...] INVALID FOR* Letter Text Nicolás Galarza MD [address] [facility] [address] [phone] Kristyn Palomino MA, [facility] Health M.A. December 30, 2017 Ruthie Castillo [address] [place] [address] Dear Mr. Castillo In an effort to serve your healthcare needs, it has come to the attention of Nicolás Galarza MD, your Primary Care Provider, that you are overdue for routine health care. We've attempted to contact you and have been unsuccessful. Please call the office at [phone] to schedule an appointment for Follow Up. Health Maintenance Due: ONE PNEUMOVAX PRIOR TO AGE 65 due on 2009 If any of these routine health care items were completed by an outside facility, please have that office fax the results to [phone] Attn: Nicolás Galarza MD or bring the records with you to your appointment. We will gladly update your record. If you have any questions, please feel free to call the office at [phone] or message us via [employer] Magpie. Thank you for choosing the [facility]. Sincerely, Kristyn Palomino MA, [facility] iyzico M.A. (electronically signed to expedite mailing) Encounter Status:Closed by KRISTYN PALOMINO on 12/30/17 ALLERGIES ALLERGIES DATE TYPE / CODE NAME / CODE REACTION SEVERITY SOURCE 09/20/20 DRUG/117799328(SN EKTYFLQOU-TWZ-EI-LEONARDO [facility] [address]) [facility] Other [place] Repository 09/09/20 Drug dextromethorphan Anaphylaxis Unknown [place] 18 Allergy/576136065 HBr/J493116704(RXNOR Community (SNOMED CT) M) Hospital Repository 09/09/20 Drug pseudoephedrine Anaphylaxis Unknown [place] 18 Allergy/664564632 HCl/P956810808(RXNOR [facility] (SNOMED CT) M) Hospital Repository 09/09/20 Drug doxylamine/S63131396 Anaphylaxis Unknown [place] 18 Allergy/740245179 9(RXNORM) Community (SNOMED CT) Hospital Repository 09/09/20 Drug poison mimi Anaphylaxis Unknown [place] 18 Allergy/305875407 extract/D154436173(R Community (SNOMED CT) XNORM) Hospital Repository 09/09/20 Drug venom-honey Anaphylaxis Unknown [place] 18 Allergy/613585473 bee/C494007132(RXNOR Community (SNOMED CT) M) Hospital Repository 09/04/20 Miscellaneous MUSHROOMS Anaphylaxis Unknown [place] 18 Allergy/684781300 [facility] (SNOMED CT) Hospital Repository 08/25/20 DRUG MUSHROOM COMBINATION HIVES [place] [address] INGREDI/781046968 NO.1 Clinic Other (SNOMED CT) [place] Repository 04/27/20 Drug BETA-BLOCKERS CONTRAINDICA High [place] [address] Class/548974320(S (BETA-ADRENERGIC Clinic Other NOMED CT) BLOCKING AGTS) [place] Repository 05/30/20 DRUG PROCHLORPERAZINE INTOLERANCE [place] [address] INGREDI/317907218 EDISYLATE Clinic Other (SNOMED CT) [place] Repository 02/29/20 Environ/369835642 POISON MIMI RASH [place] [address] (SNOM[address] CT) Clinic Other [place] Repository 02/26/20 Environ/398651605 BEES ANAPHYLAXIS [place] [address] (SNOM[address] CT) Clinic Other [place] Repository NG/176231940(SNOM BETA-BLOCKERS [facility] ED CT) (BETA-ADRENERGIC Health System BLOCKING AGTS) Repository NG/783474493(SNOM BEES [facility] ED CT) Health System Repository NG/329068502(SNOM PROCHLORPERAZINE [facility] ED CT) EDISYLATE Health System Repository NG/967185888(SNOM MUSHROOM COMBINATION [facility] ED CT) NO.1 Health System Repository NG/319597550(SNOM LRDIDOCEE-XNS-SH-LEONARDO [facility] ED CT) TAMINOPHEN Health System Repository NG/053579960(SNOM POISON MIMI [facility] ED CT) Health System Repository ENCOUNTERS ENCOUNTERS ADMIT/DISCHARGE ACCOUNT NUMBER ADMITTING ENCOUNTER LOCATION SOURCE CLASS 09/20/2018/09/23/20 [id number] CARMEN ESPINOZA Inpatient [place] [facility] Encounter Clinic Other [place] Repository 09/20/2018/09/23/20 [id number] CARMEN ESPINOZA Inpatient [place] 18 Encounter GENERAL Health System MEDICAL Repository CENTERBuildi nRoom: 8111Bed: 09/09/2018 [id number] Ambulatory BMSBuilding: [place] BMS.[facility] Repository 09/09/2018/09/09/20 [id number] [facility] ding:ED Repository 09/04/2018 [id number] Sementi, Ambulatory BMSBuilding: N[place]reen Sonam BMS..[facility] Repository 09/04/2018 [id number] [place], Ambulatory BMSBuilding: [place] Sonam BMS.[facility] Repository 09/04/2018 [id number] [place], Ambulatory BMSBuilding: [place] Sonam BMS.[facility] Repository 09/04/2018 [id number] [place], Ambulatory BMSBuilding: N[place] Sonam BMS..[facility] Repository 09/04/2018 [id number] [place], Ambulatory BMSBuilding: [place] Sonam BMS.[facility] Repository 09/04/2018 [id number] [place]i, Ambulatory BMSBuilding: [place] Sonam BMS.[facility] Repository 09/04/2018 [id number] [place], Ambulatory BMSBuilding: [place] Sonam BMS..[facility] Repository 09/04/2018/09/08/20 [id number] Sementi, Inpatient [place] 18 Sonam Encounter [facility] ding:CI6Snmt Repository : KA623Ezm: 1 09/04/2018 [id number] [place], Ambulatory BMSBuilding: [place] Sonam BMS..[facility] Repository 09/04/2018 [id number] [place], Ambulatory BMSBuilding: [place] Sonam BMS.[facility] Repository 08/30/2018 [id number] Ambulatory BMSBuilding: [place] [facility] Repository 08/28/2018 [id number] Ambulatory BMSBuilding: [place]reen BMS.[facility] Repository 08/28/2018/09/02/20 [id number] Jopperi, Inpatient [place] 18 Ruiz Encounter [facility] ding:NO8Upya Repository : XS500Bja: 1 08/28/2018 [id number] [place], Ambulatory BMSBuilding: N[place]reen Ruiz BMS..[facility] Repository 08/28/2018 [id number] [place], Ambulatory BMSBuilding: [place] Ruiz BMS.CF.[facility] Repository 08/28/2018 [id number] [place] Ambulatory BMSBuilding: Nisreen Ruiz BMS.[facility] Repository 08/28/2018 [id number] [place] Ambulatory BMSBuilding: [place] Ruiz BMS.[facility] Repository 08/28/2018 [id number] [place], Ambulatory BMSBuilding: [place] Ruiz BMS.CF.[facility] Repository 08/28/2018 [id number] [place] Ambulatory BMSBuilding: [place] Ruiz BMS.[facility] Repository 08/28/2018 [id number] [place] Ambulatory BMSBuilding: [place] Ruiz BMS..[facility] Repository 08/28/2018 [id number] [place] Ambulatory BMSBuilding: N[place]reen Ruiz BMS.[facility] Repository 08/28/2018 [id number] [place] Ambulatory BMSBuilding: [place] Ruiz BMS..[facility] Repository 08/28/2018 [id number] [place] Ambulatory BMSBuilding: [place] Ruiz BMS..[facility] Repository 08/28/2018 [id number] [place] Ambulatory BMSBuilding: [place] Ruiz BMS.[facility] Repository 05/15/2018 [id number] Emergency [address] [place] [address] EDRoom: System 444Bed: Repository [id number] PAYERS PAYERS ENCOUNTER GUARANTOR PAYER SUBSCRIBER SOURCE 09/20/2018 RUTHIE R Primary RUTHIE R [facility] CYRUSDOB: Insurance:[facility]: [facility] [id number] [facility] [id number] Repository [place] MEDICAREPolicy [place], [place] Number: [address]Nco: (571) [id number] [phone] () Date: 09/20/2018 Secondary RUTHIE R [facility] Insurance:[facility]: [facility] [id number] Repository MEDICAIDPolicy Number: [id number] Date: 09/09/2018 RUTHIE R Primary RUTHIE R [place] [id number] Insurance:[facility] CYSDOB: [facility] *IN [facility] [id number] Number: Repository [address]Oal: 330 [id number] [phone] (HP) Date:7804-57-26LULY CLAIMS [address], [place] [address]YZ: 09/09/2018 Secondary NOT GIVENUNK [place] Insurance:SELF PAY [facility] Number: Effective Repository Date:2018-09-09 09/09/2018 RUTHIE R Primary RUTHIE R [place] [id number] Insurance:[facility]ARE [facility] CYRUSDOB: Community [place] *IN [facility] [id number], [place] Number: Repository [address]Apx: 330 [id number] [phone] (HP) Date:7004-34-43BFPX CLAIMS [address], [place] [address]BH: 09/09/2018 Secondary NOT GIVENUNK [place] Insurance:SELF PAY [facility] Number: Effective Repository Date:2018-09-09 09/04/2018 RUTHIE R Primary RUTHIE R [place] [id number] Insurance:MYCARE CRSC CYRUSDOB: Community [place] *IN [facility] [id number] Number: Repository [address]Aen: 330 [id number] [phone] (HP) Date:9109-49-82RWTK CLAIMS [address], [place] [address]JZ: 09/04/2018 Secondary NOT GIVENUNK [place] Insurance:SELF PAY [facility] Number: Effective Repository Date:2018-09-04 09/04/2018 RUTHIE R Primary RUTHIE R [place] [id number] Insurance:MYCARE CRSC CYRUSDOB: Community [place] *IN [facility] [id number], [place] Number: Repository [address]Rjg: 330 [id number] [phone] (HP) Date:2720-38-58XMYZ CLAIMS [address]PT[address] [address]NL: 09/04/2018 Secondary NOT GIVENUNK [place] Insurance:SELF PAY [facility] Number: Effective Repository Date:2018-09-04 09/04/2018 RUTHIE R Primary RUTHIE R [place] [id number] Insurance:MYCARE CRSC CYRUSDOB: Community [place] *IN [facility] [id number], [place] Number: Repository [address]Mtb: 330 [id number] [phone] (HP) Date:7012-49-94EMLE CLAIMS [address] [place] [address]KU: 09/04/2018 Secondary NOT GIVENUNK [place] Insurance:SELF PAY [facility] Number: Effective Repository Date:2018-09-04 09/04/2018 RUTHIE R Primary RUTHIE R [place] [id number] Insurance:MYCARE CRSC CYRUSDOB: Community [place] *IN [facility] [id number], [place] Number: Repository [address]Ugb: 330 [id number] [phone] () Date:4504-71-43FGIP CLAIMS [address] [place] [address]QH: 09/04/2018 Secondary NOT GIVENUNK [place] Insurance:SELF PAY [facility] Number: Effective Repository Date:2018-09-04 09/04/2018 RUTHIE R Primary RUTHIE R [place] [id number] Insurance:MYCARE CRSC CYRUSDOB: Community [place] *IN [facility] [id number], [place] Number: Repository [address]Ssg: 330 [id number] [phone] (HP) Date:3442-50-21ZFON CLAIMS [address], [place] [address]RU: 09/04/2018 Secondary NOT GIVENUNK [place] Insurance:SELF PAY [facility] Number: Effective Repository Date:2018-09-04 09/04/2018 RUTHIE R Primary RUTHIE R [place] [id number] Insurance:MYCARE CRSC CYRUSDOB: Community [place] *IN [facility] [id number] Number: Repository [address]Fmq: 330 [id number] [phone] (HP) Date:8530-32-93ZLKQ CLAIMS [address] [place] [address]DG: 09/04/2018 Secondary NOT GIVENUNK [place] Insurance:SELF PAY [facility] Number: Effective Repository Date:2018-09-04 09/04/2018 RUTHIE R Primary RUTHIE R [place] [id number] Insurance:MYCARE CRSC CYRUSDOB: Community [place] *IN [facility] [id number] Number: Repository [address]Xta: 330 [id number] [phone] (HP) Date:5327-16-72KOII CLAIMS DEPTPO [address] [place] [address]OY: 09/04/2018 Secondary RUTHIE R [place] Insurance:MEDICARE CYRUSDOB: Community [facility] [id number] Hospital Number: Repository [id number] Date:2018-09-04 09/04/2018 Tertiary NOT GIVENUNK [place] Insurance:SELF PAY [facility] Number: Effective Repository Date:2018-09-04 09/04/2018 RUTHIE R Primary RUTHIE R [place] [id number] Insurance:MYCARE CRSC CYRUSDOB: Community [place] *IN [facility] [id number], [place] Number: Repository [address]Cmn: 330 [id number] [phone] (HP) Date:4094-01-97RKKR CLAIMS [address], [place] [address]XP: 09/04/2018 Secondary NOT GIVENUNK [place] Insurance:SELF PAY [facility] Number: Effective Repository Date:2018-09-04 09/04/2018 RUTHIE R Primary RUTHIE R [place] [id number] Insurance:MYCARE CRSC CYRUSDOB: Community [place] *IN [facility] [id number], [place] Number: Repository [id number]: 330 [id number] [phone] (HP) Date:0273-47-82CKMT [place]S [address] [address]QC: 09/04/2018 Secondary NOT GIVENUNK Nisreen Insurance:SELF PAY [facility] Number: Effective Repository Date:2018-09-04 09/04/2018 RUTHIE R Primary RUTHIE R Dos Rios [id number] Insurance:MYCARE CRSC CYRUSDOB: Community HDZ RDLOT *IN [facility] [id number] Number: Repository [id number]: 330 [id number] [phone] (HP) Date:4582-18-56BSXW CLAIMS [address] [address]PF: 09/04/2018 Secondary RUTHIE R Nisreen Insurance:MEDICARE CYRUSDOB: [facility] [id number] Hospital Number: Repository [id number] Date:2018-09-04 09/04/2018 Tertiary NOT GIVENUNK Nisreen Insurance:SELF PAY [facility] Number: Effective Repository Date:2018-09-04 08/30/2018 RUTHIE R Primary RUTHIE R Nisreen [id number] Insurance:MYCARE CRSC CYRUSDOB: Community HDZ RDLOT *IN [facility] [id number], [place] Number: Repository [id number]: 330 [id number] [phone] (HP) Date:7709-26-42JBUB CLAIMS [address] [address]CQ: 08/30/2018 Secondary NOT GIVENUNK Nisreen Insurance:SELF PAY [facility] Number: Effective Repository Date:2018-08-30 08/28/2018 RUTHIE R Primary RUTHIE R Dos Rios [id number] Insurance:MYCARE CRSC CYRUSDOB: Community HDZ RDLOT *IN [facility] [id number] Number: Repository [address]Ruw: 330 [id number] [phone] (HP) Date:0286-45-83IAPT CLAIMS [address] [place] [address]AP: 08/28/2018 Secondary NOT GIVENUNK Dos Rios Insurance:SELF PAY [facility] Number: Effective Repository Date:2018-08-28 08/28/2018 RUTHIE R Primary RUTHIE R Dos Rios [id number] Insurance:MYCARE CRSC CYRUSDOB: Community HDZ RDLOT *IN [facility] [id number][place] Number: Repository [id number]: 330 [id number] [phone] (HP) Date:5098-07-28ZTOH CLAIMS DEPT[address] [place] [address]EL: 08/28/2018 Secondary NOT GIVENUNK Nisreen Insurance:SELF PAY [facility] Number: Effective Repository Date:2018-08-28 08/28/2018 RUTHIE R Primary RUTHIE R Nisreen [id number] Insurance:MYCARE CRSC CYRUSDOB: Community HDZ RDLOT *IN [facility] [id number] Number: Repository [id number]: 330 [id number] [phone] (HP) Date:2107-02-73FTPS CLAIMS [address] [place] [address]VC: 08/28/2018 Secondary NOT GIVENUNK Nisreen Insurance:SELF PAY [facility] Number: Effective Repository Date:2018-08-28 08/28/2018 RUTHIE R Primary RUTHIE R Nisreen [id number] Insurance:MYCARE CRSC CYRUSDOB: Community HDZ RDLOT *IN [facility] [id number], [place] Number: Repository [id number]: 330 [id number] [phone] (HP) Date:4561-29-56IEBQ CLAIMS [address] [address]TA: 08/28/2018 Secondary NOT GIVENUNK Dos Rios Insurance:SELF PAY [facility] Number: Effective Repository Date:2018-08-28 08/28/2018 RUTHIE R Primary RUTHIE R Nisreen [id number] Insurance:MYCARE CRSC CYRUSDOB: Community HDZ RDLOT *IN [facility] [id number] Number: Repository [id number]: 330 [id number] [phone] (HP) Date:3122-86-52MUGD CLAIMS [address] [place] [address]HL: 08/28/2018 Secondary NOT GIVENUNK Dos Rios Insurance:SELF PAY [facility] Number: Effective Repository Date:2018-08-28 08/28/2018 RUTHIE R Primary RUTHIE R Dos Rios [id number] Insurance:MYCARE CRSC [facility]YRUSDOB[facility]IN [facility] [id number], [place] Number: Repository [address]Ttl: 330 [id number] [phone] () Date:7998-41-40YVAC CLAIMS [address]PT[address] [place] [address]ZU: 08/28/2018 Secondary NOT GIVENUNK Dos Rios Insurance:SELF PAY [facility] Number: Effective Repository Date:2018-08-28 08/28/2018 RUTHIE R Primary RUTHIE R Nisreen [id number] Insurance:MYCARE CRSC CYRUSDOB: Community HDZ RDLOT *IN [facility] [id number], [place] Number: Repository [id number]: 330 [id number] [phone] (HP) Date:5404-39-46HZWT CLAIMS [address] [place] [address]KS: 08/28/2018 Secondary NOT GIVENUNK Nisreen Insurance:SELF PAY [facility] Number: Effective Repository Date:2018-08-28 08/28/2018 RUTHIE R Primary RUTHIE R Nisreen [id number] Insurance:MYCARE CRSC CYRUSDOB: Community HDZ RDLOT *IN [facility] 2059-19-29FOYSelk[place], [place] Number: Repository [address]Oef: 330 [id number] [phone] () Date:8288-39-09DVDU [place]S [address] [address]LT: 08/28/2018 Secondary NOT GIVENUNK Nisreen Insurance:SELF PAY [facility] Number: Effective Repository Date:2018-08-28 08/28/2018 RUTHIE R Primary RUTHIE R Dos Rios [id number] Insurance:MYCARE CRSC CYRUSDOB: Community HDZ RDLOT *IN [facility] [id number], [place] Number: Repository [address]Hrb: 330 [id number] [phone] () Date:3221-28-24QHYM CLAIMS [address] [address]SJ: 08/28/2018 Secondary NOT GIVENUNK Nisreen Insurance:SELF PAY [facility] Number: Effective Repository Date:2018-08-28 08/28/2018 RUTHIE R Primary RUTHIE R Dos Rios [id number] Insurance:MYCARE CRSC CYRUSDOB: Community HDZ RDLOT *IN [facility] [id number], [place] Number: Repository [address]Dhs: 330 [id number] [phone] () Date:1419-75-10SORA CLAIMS [address] [address]MY: 08/28/2018 Secondary NOT GIVENUNK Nisreen Insurance:SELF PAY [facility] Number: Effective Repository Date:2018-08-28 08/28/2018 RUTHIE R Primary RUTHIE R Dos Rios [id number] Insurance:MYCARE CRSC CYRUSDOB: Community HDZ RDLOT *IN [facility] [id number], [place] Number: Repository [phone]: [phone] [id number] [phone] (HP) Date:6758-15-48BHEE CLAIMS [address] [address]QP: 08/28/2018 Secondary NOT GIVENUNK Dos Rios Insurance:SELF PAY [facility]: Effective Repository Date:2018-08-28 08/28/2018 RUTHIE R Primary RUTHIE R Nisreen [id number] Insurance:MYCARE CRSC CYRUSDOB: Community HDZ RDLOT *IN [facility] [id number], [place] Number: Repository [phone]: [phone] [id number] [phone] (HP) Date:2397-51-75QMHG CLAIMS [address] [place] [address]LC: 08/28/2018 Secondary NOT GIVENUNK Dos Rios Insurance:SELF PAY [facility] Number: Effective Repository Date:2018-08-28 08/28/2018 RUTHIE R Primary RUTHIE R Nisreen [id number] Insurance:MYCARE CRSC CYRUSDOB: Community HDZ RDLOT *IN [facility] [id number], [place] Number: Repository [phone]: [phone] [id number] [phone] (HP) Date:6260-48-71PZIE CLAIMS [address] [place] [address]QG: 08/28/2018 Secondary NOT GIVENUNK Dos Rios Insurance:SELF PAY [facility] Number: Effective Repository Date:2018-08-28 05/15/2018 Ruthie Primary Ruthie [facility] CyrusDOB: Insurance:CareSourceP CyrusDOB: System [id number] olicy Number: [id number] Repository [address] Lot Effective Date: [place], [place] [address]Hvl: (HP) 05/15/2018 Secondary Ruthie [facility] Insurance:CareSourceP CyrusDOB: System olicy Number: [id number] Repository Effective Date:
== END 2018-09-09 18:59 | disposition home or self-care (01) ==
PROVIDERS: Emergency Provider Emergency Medicine; Family Provider Nurse Practitioner Family; PCP Nurse Practitioner Family
DX: K57.32 Diverticulitis of large intestine without perforation or abscess without bleeding (principal)
CPT/HCPCS: 74177; 80048; 85025; 96361; 96365; 96375; 96376; 99285; J7030; Q9967; A4216

== ENCOUNTER 2018-11-04 04:05 | Observation (INO) | payer MEDICARE, SELFPAY ==
[2018-11-04 04:05] VITALS: BP 144/84; PULSE 80; RESP 18; TEMP 36.4; O2SAT 99; BMI 36.2
--- NOTE | 2018-11-04 04:47 | CT_ITS ---
STUDY: CT ABDOMEN AND PELVIS WITH CONTRAST REASON FOR EXAM: Male, 28 years old. Abdominal pain 2 hours prior to admission. History of diverticulitis. RADIATION DOSAGE (If Supplied By Facility): CTDIvol = ( 18.65 ) mGy, DLP = ( 1352.87 ) mGycm TECHNIQUE: Transaxial 3.75 mm images were obtained from the dome of the diaphragm to the symphysis pubis with oral contrast. 100 ml of Isovue 300 contrast was administered. Sagittal and coronal images were reconstructed. Individualized dose optimization techniques were used for this CT. COMPARISON: CT abdomen and pelvis 08/30/2018. 09/08/2018. 09/04/2018. FINDINGS: The visualized lung bases are unremarkable. The visualized portions of the heart are within normal limits. There is stable decreased attenuation of the enlarged liver consistent with steatosis. Normal gallbladder and extrahepatic biliary system. There is stable mild splenomegaly. Normal pancreas. Normal bilateral adrenal glands. Normal right kidney. Normal left kidney. Normal visualized stomach. Normal small intestine. The previously seen fluid collection between 2 loops of sigmoid colon just superior to the urinary bladder previously measuring 2.9 x 2.7 x 2.8 cm is retracted without fluid component, there are few pockets of air. This area measures 1.6 x 1.7 x 1.1 cm. There is adjacent elongation of the colon and tethering of mesentery. Mild wall thickening of the sigmoid colon. Not significantly changed since most recent exam. There are sigmoid diverticula The appendix is visualized and appears normal. Normal abdominal aorta. Normal inferior vena cava. Normal retroperitoneum. Distended urinary bladder. Normal visualized prostate gland. Normal abdominal wall. Normal osseous structures. CT/Abdomen/Pelvis WITH Contrast IMPRESSION: Previously seen residual fluid collection/abscess in the deep pelvis between 2 segments off sigmoid colon just superior to the urinary bladder has retracted and contains tiny pockets of air and no fluid. This measures currently 1.6 x 1.7 x 1.1 cm. Minimal residual sigmoid inflammation may be present. No other acute inflammatory process or pathology detected. Stable hepatomegaly, hepatic siderosis, mild splenomegaly. Electronically Signed: Trisha Quintanilla MD at 6:50 EST , Service support ,
[2018-11-04] MEDS: Ondansetron 4 MG/2 ML Vial IV ×2 (04:57→10:24)
[2018-11-04] MEDS: 0.9% Normal Saline 1,000 ML 1000 ML IV (04:57)
[2018-11-04 05:00] LABS: Absolute Lymphocyte Count 2.33 X10^3/ul (0.83-4.51); Absolute Neutrophil Count 4.4 X10^3/uL (2.0-7.7); Basophil# 0.02 X10^3/uL; Basophil% 0.2 % (0-1); Eosinophils% 17.1 % (0-5); Hematocrit 42.7 % (40-54); Lymphocyte # 2.33 X10^3/ul (4.0); Lymphocyte % 26.6 % (19-41); Mean Corp Hgb Conc 32.8 g/gl (32-36); Mean Corpuscular Hgb 29.7 pg (27.0-32.0); Mean Corpuscular Volume 90.5 fL (80-94); Mean Platelet Vol. 10.6 fl (6.2-12.0); Monocyte# 0.51 X10^3/uL; Monocyte% 5.8 % (0-10); Neutrophil # 4.36 X10^3/uL (2.7-7.7); Platelet Count 229 K/mm3 (150-450); RBC Distribution Width CV 14.2 % (11.6-14.6); RBC Distribution Width SD 46.7 fl (35.1-43.9); Red Blood Count 4.72 M/mm3 (4.6-6.2); White Blood Count 8.8 K/mm3 (4.4-11.0)
[2018-11-04] MEDS: Morphine 4 MG/ML Syringe IV ×2 (05:00→06:47)
[2018-11-04 05:01] LABS: POSITIVE COUNT NO; POSITIVE DIFFERENTIAL NO; POSITIVE MORPHOLOGY NO
[2018-11-04 05:14] LABS: ALB/GLOB Ratio 0.9 RATIO (0.9-2.4); AST(SGOT) 22 U/L (15-37); Alanine Aminotransfer ALT/SGPT 49 U/L (16-61); Albumin, Serum 3.7 g/dL (3.2-5.0); Alkaline Phosphatase 82 U/L (45-117); Anion Gap 10 (5-15); BUN 16 mg/dL (7-18); Calcium,Total 8.8 mg/dL (8.5-10.1); Chloride 105 mmol/L (98-107); Creatinine, Serum 0.84 mg/dL (0.70-1.30); EST Glomerular Filtration Rate 115 mL/min (>60); Est Glom Filt Rate - Afr Amer 139 mL/min (>60); Globulin 3.9 g/dL (2.2-4.2); Glucose 121 mg/dL (74-106); Lipase 166 U/L (73-393); Potassium 3.8 mmol/L (3.5-5.1); Protein, Total 7.6 g/dL (6.4-8.2); Sodium Level 143 mmol/L (136-145)
[2018-11-04 06:24] VITALS: BP 118/57; PULSE 68; RESP 18; O2SAT 98
--- NOTE | 2018-11-04 07:24 | NURSING ---
4770 CALLED [facility], TALKED TO MENA. [facility] PLUS WAITING THERE FOR BEDS. SHE TALKED TO DR CAI
--- NOTE | 2018-11-04 07:26 | ED.VISSUMM ---
- ER Visit Summary Date of Service: 11/04/18 Chief Complaint: Abdominal pain History of Present Illness: The patient is a 28 M who presents with abdominal pain. This began about 2 hours ago. He describes it as a severe cramping pain across the upper abdomen. He reports associated nausea without vomiting. No diarrhea. He has had constipation for the last couple of days. No fevers chest pain shortness of breath. He has recently been treated for diverticulitis with abscess. He was admitted here for about 2-1/2 weeks. They attempted drainage but this was unsuccessful. After discharge she sought a second opinion at [facility]. Imaging at that time showed no fluid collection, he was readmitted and evaluated by gastroenterology. They are also concerned that he may have inflammatory bowel disease. He is scheduled for colonoscopy in about 2 weeks. Physical Examination: Afebrile vitals stable Moist mucous membranes Heart regular rate and rhythm Lungs clear Abdomen soft nondistended he does have some epigastric tenderness without guarding without rebound Alert Test Results: Labs unremarkable including CBC CMP lipase. CT the abdomen and pelvis, previously seen residual fluid collection abscess is retracted tiny pockets of air no fluid is measures 1.6 x 1.7 x 1.1. There is minimal inflammation. Emergency Department Course and Treatment: Workup as above. Patient has been diagnosed with possible inflammatory bowel disease he does have some minimal inflammatory changes still. Therefore I did cover with antibiotics. He has required multiple doses of morphine and still complains of moderate pain. Therefore I do feel he will need admitted for further symptom management and evaluation. Ideally this would be at [facility] where he has been seen by gastroenterology. At this time they did not have beds available but states they will likely have bed this afternoon or evening. I spoke to the transfer line and they will be back in contact with us later this morning. In the meantime I did speak to the hospitalist for admission here. Treatment Plan: [] Disposition: Abdomen Impression: Diverticulitis This note was generated with Pigafe dictation software. It may contain incorrect words, spelling, and punctuation that were not noted in review of the chart prior to signing ED Disposition - Plan for ED Patient: Referrals: Hudson Frazier DO [Primary Care Provider] -
--- NOTE | 2018-11-04 07:31 | NURSING ---
DR CALVILLO FOR DR CAI
--- NOTE | 2018-11-04 07:35 | ED.DCSUM_ITS ---
- ER Visit Summary Date of Service: 11/04/18 Chief Complaint: Abdominal pain History of Present Illness: The patient is a 28 M who presents with abdominal pain. This began about 2 hours ago. He describes it as a severe cramping pain across the upper abdomen. He reports associated nausea without vomiting. No diarrhea. He has had constipation for the last couple of days. No fevers chest pain shortness of breath. He has recently been treated for diverticulitis with abscess. He was admitted here for about 2-1/2 weeks. They attempted drainage but this was unsuccessful. After discharge she sought a second opinion at [facility]. Imaging at that time showed no fluid collection, he was readmitted and evaluated by gastroenterology. They are also concerned that he may have inflammatory bowel disease. He is scheduled for colonoscopy in about 2 weeks. Physical Examination: Afebrile vitals stable Moist mucous membranes Heart regular rate and rhythm Lungs clear Abdomen soft nondistended he does have some epigastric tenderness without guarding without rebound Alert Test Results: Labs unremarkable including CBC CMP lipase. CT the abdomen and pelvis, previously seen residual fluid collection abscess is retracted tiny pockets of air no fluid is measures 1.6 x 1.7 x 1.1. There is minimal inflammation. Emergency Department Course and Treatment: Workup as above. Patient has been diagnosed with possible inflammatory bowel disease he does have some minimal inflammatory changes still. Therefore I did cover with antibiotics. He has required multiple doses of morphine and still complains of moderate pain. Therefore I do feel he will need admitted for further symptom management and evaluation. Ideally this would be at [facility] where he has been seen by gastroenterology. At this time they did not have beds available but states they will likely have bed this afternoon or evening. I spoke to the transfer line and they will be back in contact with us later this morning. In the meantime I did speak to the hospitalist for admission here. Treatment Plan: [] Disposition: Abdomen Impression: Diverticulitis This note was generated with bitFlyer dictation software. It may contain incorrect words, spelling, and punctuation that were not noted in review of the chart prior to signing ED Disposition - Plan for ED Patient: Referrals: Hudson Frazier DO [Primary Care Provider] -
--- NOTE | 2018-11-04 07:37 | NURSING ---
MED SURG DIVERTICULITIS RAJINDER
--- NOTE | 2018-11-04 07:38 | NURSING ---
PATIENT WILL BE GOING TO [facility]. LATER TODAY WHEN A BED OPENS UP.
--- NOTE | 2018-11-04 07:55 | PCM.HP.STD ---
Problem List (1) Abscess of sigmoid colon Status: Acute History of Present Illness Date of Admission: 11/04/18 Chief Complaint: abdominal pain The patient is a 28 year old M presents with acute abdominal pain. Patient was having intercourse after he finished, but he laid back and then had sudden onset of epigastric abdominal pain that radiated to his back. Stated that went into a counterclockwise [place]ock around his umbilicus. Patient had similar pain related with particular abscess previously had been admitted here in over an echo gentleman back in August. During the interim, patient had been feeling okay. There was concern that the patient may have inflammatory bowel disease when he is over at [facility]. Patient was advised to have a colonoscopy and follow-up with gastroenterology. The ER physician contacted [facility] and patient was accepted, however they did not have any immediate beds available until this afternoon or evening so patient will be admitted to the general medical floor until a bed opens up at [facility]. 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 Allergies dextromethorphan HBr [From NyQuil] Allergy (Verified 11/04/18 04:11) Anaphylaxis doxylamine [From NyQuil] Allergy (Verified 11/04/18 04:11) Anaphylaxis poison mimi extract [Poison Mimi Extract] Allergy (Verified 11/04/18 04:11) Anaphylaxis pseudoephedrine HCl [From NyQuil] Allergy (Verified 11/04/18 04:11) Anaphylaxis venom-honey bee [bee venom (honey bee)] Allergy (Verified 11/04/18 04:11) Anaphylaxis MUSHROOMS Allergy (Uncoded 11/04/18 04:11) Anaphylaxis Home Medications: Ambulatory Orders Medication Instructions Recorded Calcium Carbonate [Tums] 1,000 mg PO PRN PRN 08/28/18 Acetaminophen [Tylenol Extra 1,000 mg PO Q4H PRN PRN 09/09/18 Strength] Dicyclomine HCl 20 mg PO PRN PRN 11/04/18 Hydroxyzine HCl 25 mg PO Q6H PRN 11/04/18 Tizanidine HCl 4 mg PO QHS PRN 11/04/18 Surgical History: no surgical history, - - testicular surgery on cyst--nonresectable., left foot Psychiatric History: Anxiety, Bipolar, Post traumatic stress, - - Multiple personality disorder, Smoking Status: Light Smoker (<10/day) Tobacco Use: Cigarettes Alcohol: None Drugs: Marijuana - States he has a medical marijuana card - *Family History Paternal Family History: Family History (Last Updated 11/04/18 @ 07:58 by Ruiz Elaine DO) Other Ulcerative colitis History Items: Heart Disease, - - murdered Maternal Family History: Family History (Last Updated 11/04/18 @ 07:58 by Ruiz Elaine DO) Other Ulcerative colitis History Items: No pertinent history Review of Systems Constitutional: Denies: Anorexia, Chills, Fever Eyes: Reports: Blurred vision - Chronic. States that he does not want to wear glasses because it makes him look like his father.. Denies: Double vision HEENT: Denies: Head Aches, Sinus Congestion, Sinus Drainage Cardiovascular: Denies: Chest Pain, Palpitations Respiratory: Denies: Cough, Shortness of breath at rest, Sputum production Gastrointestinal: Reports: Abdominal Pain, Constipation, Nausea. Denies: Diarrhea, Hematemesis, Hematochezia, Melena, Vomiting Genitourinary: Denies: Dysuria Musculoskeletal: Denies: Joint Pain, Joint Tenderness Skin: Denies: Rash, Wounds Neurological: Denies: Numbness, Tingling, Focal weakness Psychiatric: Reports: Anxiety. Denies: Depression Endocrine: Denies: Change in Body Habitus, Heat/ Cold Intolerance Hematologic/ Lymphatic: Denies: Easy Bruising, Easy Bleeding Comment: A 10 point review of systems were negative except as mentioned in the history of present illness and the other review of systems. VTE Information - Inpt Only VTE Present on Admission: No VTE Pharm Prophylaxis ordered?: Yes Patient Problems: Active and Suspected Problems (Last Reviewed 09/04/18 @ 02:53 by Vika Finch DO) Abscess of sigmoid colon (Acute) - Physical Exam General: Alert, Cooperative, No apparent distress HEENT: Atraumatic, Normocephalic Oral: Moist Mucosa, No Gingival or Mucosal Lesions/ Ulcerations Neck: No Nodes, Thyroid Normal Size and Texture Lungs: Clear to auscultation, Normal air movement, No rhonchi, No wheeze Cardiovascular: Regular rate, Regular Rhythm, Normal S1, Normal S2, No murmurs Abdomen: Bowel Sounds Present, Soft, Non-Distended, Hypoactive Bowel Sounds, Tender Extremities: No edema, No Calf Tenderness Skin: No rashes, No breakdown Musculoskeletal: No Tenderness to Palpation of Joints or Extremities, No Muscle Wasting Neurological: Neuro grossly intact, Coordination normal Psych/Mental Status: Normal Affect, Appropriate Vital Signs Temp Pulse Resp BP Pulse Ox 36.4 C L 68 18 118/57 L 98 11/04/18 04:05 11/04/18 06:24 11/04/18 06:24 11/04/18 06:24 11/04/18 06:24 Oxygen Delivery Method Room Air Weight: 121.2 kg Body Mass Index (BMI) 36.2 Laboratory Tests Past 24 Hrs 11/04/18 11/04/18 04:40 04:40 WBC 8.8 RBC 4.72 Hgb 14.0 Hct 42.7 MCV 90.5 MCH 29.7 MCHC 32.8 RDW 14.2 RDW Differential 46.7 H Plt Count 229 MPV 10.6 Immature Gran % (Auto) 0.300 Neut % (Auto) 50.0 Lymph % (Auto) 26.6 [place]ct[place] % (Auto) 5.8 Eos % (Auto) 17.1 H Baso % (Auto) 0.2 Absolute Neuts (auto) 4.4 Absolute Lymphs (auto) 2.33 Total Counted Not Reportable Sodium 143 Potassium 3.8 Chloride 105 Carbon Dioxide 28.0 Anion Gap 10 BUN 16 Creatinine 0.84 Estim Creat Clear Calc 143.70 Est GFR (MDRD) Af Amer 139 Est GFR (MDRD) Non-Af 115 BUN/Creatinine Ratio 19.0 Glucose 121 H Calcium 8.8 Total Bilirubin 0.30 AST 22 ALT 49 Alkaline Phosphatase 82 Total Protein 7.6 Albumin 3.7 Globulin 3.9 Albumin/Globulin Ratio 0.9 Lipase 166 Clinical Impression(s) from Imaging Studies Abdomen/Pelvis CT 11/04/18 04:47 IMPRESSION: Previously seen residual fluid collection/abscess in the deep pelvis between 2 segments off sigmoid colon just superior to the urinary bladder has retracted and contains tiny pockets of air and no fluid. This measures currently 1.6 x 1.7 x 1.1 cm. Minimal residual sigmoid inflammation may be present. No other acute inflammatory process or pathology detected. Stable hepatomegaly, hepatic siderosis, mild splenomegaly. Electronically Signed: Trisha Quintanilla MD at 6:50 EST , Service support , Assessment/Plan All Active Problems (Last Reviewed 09/04/18 @ 02:53 by Vika Finch DO) Diverticulitis (Acute) Colonic diverticular abscess (Acute) Hypokalemia (Acute) Abscess of sigmoid colon (Acute) 1. Sigmoid abscess Appears smaller than had been previously though does have some air within it. May be related with diverticulitis or inflammatory bowel disease Patient will be transferred to [facility] once a bed becomes available. Where he will likely be evaluated by general surgery and gastroenterology. While he is here, patient will be n.p.o., he will receive IV fluids, IV Zosyn, pain medication as well as antiemetics 2. DVT prophylaxis with Lovenox Code Visit Inpatient E&M: 02472 Init Hosp L3
--- NOTE | 2018-11-04 07:59 | HP.PCM_ITS ---
Problem List (1) Abscess of sigmoid colon Status: Acute History of Present Illness Date of Admission: 11/04/18 Chief Complaint: abdominal pain The patient is a 28 year old M presents with acute abdominal pain. Patient was having intercourse after he finished, but he laid back and then had sudden onset of epigastric abdominal pain that radiated to his back. Stated that went into a counterclockwise [place] around his umbilicus. Patient had similar pain related with particular abscess previously had been admitted here in over an echo gentleman back in August. During the interim, patient had been feeling okay. There was concern that the patient may have inflammatory bowel disease when he is over at [facility]. Patient was advised to have a colonoscopy and follow- up with gastroenterology. The ER physician contacted [facility] and patient was accepted, however they did not have any immediate beds available until this afternoon or evening so patient will be admitted to the general medical floor until a bed opens up at [facility]. 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 Allergies dextromethorphan HBr [From NyQuil] Allergy (Verified 11/04/18 04:11) Anaphylaxis doxylamine [From NyQuil] Allergy (Verified 11/04/18 04:11) Anaphylaxis poison mimi extract [Poison Mimi Extract] Allergy (Verified 11/04/18 04:11) Anaphylaxis pseudoephedrine HCl [From NyQuil] Allergy (Verified 11/04/18 04:11) Anaphylaxis venom-honey bee [bee venom (honey bee)] Allergy (Verified 11/04/18 04:11) Anaphylaxis MUSHROOMS Allergy (Uncoded 11/04/18 04:11) Anaphylaxis Home Medications: Ambulatory Orders Medication Instructions Recorded Calcium Carbonate [Tums] 1,000 mg PO PRN PRN 08/28/18 Acetaminophen [Tylenol Extra 1,000 mg PO Q4H PRN PRN 09/09/18 Strength] Dicyclomine HCl 20 mg PO PRN PRN 11/04/18 Hydroxyzine HCl 25 mg PO Q6H PRN 11/04/18 Tizanidine HCl 4 mg PO QHS PRN 11/04/18 Surgical History: no surgical history, - - testicular surgery on cyst--nonresectable., left foot Psychiatric History: Anxiety, Bipolar, Post traumatic stress, - - Multiple personality disorder, Smoking Status: Light Smoker (<10/day) Tobacco Use: Cigarettes Alcohol: None Drugs: Marijuana - States he has a medical marijuana card - *Family History Paternal Family History: Family History (Last Updated 11/04/18 @ 07:58 by Ruiz Elaine DO) Other Ulcerative colitis History Items: Heart Disease, - - murdered Maternal Family History: Family History (Last Updated 11/04/18 @ 07:58 by Ruiz Elaine DO) Other Ulcerative colitis History Items: No pertinent history Review of Systems Constitutional: Denies: Anorexia, Chills, Fever Eyes: Reports: Blurred vision - Chronic. States that he does not want to wear glasses because it makes him look like his father.. Denies: Double vision HEENT: Denies: Head Aches, Sinus Congestion, Sinus Drainage Cardiovascular: Denies: Chest Pain, Palpitations Respiratory: Denies: Cough, Shortness of breath at rest, Sputum production Gastrointestinal: Reports: Abdominal Pain, Constipation, Nausea. Denies: Diarrhea, Hematemesis, Hematochezia, Melena, Vomiting Genitourinary: Denies: Dysuria Musculoskeletal: Denies: Joint Pain, Joint Tenderness Skin: Denies: Rash, Wounds Neurological: Denies: Numbness, Tingling, Focal weakness Psychiatric: Reports: Anxiety. Denies: Depression Endocrine: Denies: Change in Body Habitus, Heat/ Cold Intolerance Hematologic/ Lymphatic: Denies: Easy Bruising, Easy Bleeding Comment: A 10 point review of systems were negative except as mentioned in the history of present illness and the other review of systems. VTE Information - Inpt Only VTE Present on Admission: No VTE Pharm Prophylaxis ordered?: Yes Patient Problems: Active and Suspected Problems (Last Reviewed 09/04/18 @ 02:53 by Vika Finch DO) Abscess of sigmoid colon (Acute) - Physical Exam General: Alert, Cooperative, No apparent distress HEENT: Atraumatic, Normocephalic Oral: Moist Mucosa, No Gingival or Mucosal Lesions/ Ulcerations Neck: No Nodes, Thyroid Normal Size and Texture Lungs: Clear to auscultation, Normal air movement, No rhonchi, No wheeze Cardiovascular: Regular rate, Regular Rhythm, Normal S1, Normal S2, No murmurs Abdomen: Bowel Sounds Present, Soft, Non-Distended, Hypoactive Bowel Sounds, Tender Extremities: No edema, No Calf Tenderness Skin: No rashes, No breakdown Musculoskeletal: No Tenderness to Palpation of Joints or Extremities, No Muscle Wasting Neurological: Neuro grossly intact, Coordination normal Psych/Mental Status: Normal Affect, Appropriate Vital Signs Temp Pulse Resp BP Pulse Ox 36.4 C L 68 18 118/57 L 98 11/04/18 04:05 11/04/18 06:24 11/04/18 06:24 11/04/18 06:24 11/04/18 06:24 Oxygen Delivery Method Room Air Weight: 121.2 kg Body Mass Index (BMI) 36.2 Laboratory Tests Past 24 Hrs 11/04/18 11/04/18 04:40 04:40 WBC 8.8 RBC 4.72 Hgb 14.0 Hct 42.7 MCV 90.5 MCH 29.7 MCHC 32.8 RDW 14.2 RDW Differential 46.7 H Plt Count 229 MPV 10.6 Immature Gran % (Auto) 0.300 Neut % (Auto) 50.0 Lymph % (Auto) 26.6 [place] % (Auto) 5.8 Eos % (Auto) 17.1 H Baso % (Auto) 0.2 Absolute Neuts (auto) 4.4 Absolute Lymphs (auto) 2.33 Total Counted Not Reportable Sodium 143 Potassium 3.8 Chloride 105 Carbon Dioxide 28.0 Anion Gap 10 BUN 16 Creatinine 0.84 Estim Creat Clear Calc 143.70 Est GFR (MDRD) Af Amer 139 Est GFR (MDRD) Non-Af 115 BUN/Creatinine Ratio 19.0 Glucose 121 H Calcium 8.8 Total Bilirubin 0.30 AST 22 ALT 49 Alkaline Phosphatase 82 Total Protein 7.6 Albumin 3.7 Globulin 3.9 Albumin/Globulin Ratio 0.9 Lipase 166 Clinical Impression(s) from Imaging Studies Abdomen/Pelvis CT 11/04/18 04:47 IMPRESSION: Previously seen residual fluid collection/abscess in the deep pelvis between 2 segments off sigmoid colon just superior to the urinary bladder has retracted and contains tiny pockets of air and no fluid. This measures currently 1.6 x 1.7 x 1.1 cm. Minimal residual sigmoid inflammation may be present. No other acute inflammatory process or pathology detected. Stable hepatomegaly, hepatic siderosis, mild splenomegaly. Electronically Signed: Trisha Quintanilla MD at 6:50 EST , Service support , Assessment/Plan All Active Problems (Last Reviewed 09/04/18 @ 02:53 by Vika Finch DO) Diverticulitis (Acute) Colonic diverticular abscess (Acute) Hypokalemia (Acute) Abscess of sigmoid colon (Acute) 1. Sigmoid abscess Appears smaller than had been previously though does have some air within it. May be related with diverticulitis or inflammatory bowel disease Patient will be transferred to [facility] once a bed becomes available. Where he will likely be evaluated by general surgery and gastroenterology. While he is here, patient will be n.p.o., he will receive IV fluids, IV Zosyn, pain medication as well as antiemetics 2. DVT prophylaxis with Lovenox Code Visit Inpatient E&M: 78594 Init Hosp L3
[2018-11-04 08:24] VITALS: BMI 36.2
[2018-11-04] MEDS: Morphine 2 MG/ML Syringe IV ×3 (09:58→18:14)
[2018-11-04] MEDS: Enoxaparin 40 MG/0.4 ML Syringe SC (09:59)
[2018-11-04] MEDS: 0.9% Normal Saline 1,000 ML 100 ML IV (09:59)
[2018-11-04 14:30] VITALS: BP 110/71; PULSE 60; RESP 16; TEMP 36.4; O2SAT 96
--- NOTE | 2018-11-04 15:37 | PCA ---
Call placed to [facility] transfer line, as per Jolly pt's transfer was cancelled this AM. Spoke with charge hand Hayley who stated that pt's transfer should not have been cancelled. Informed Jolly of this information. As per Jolly there are 28 other pt's waiting on bed assignments. Notified primary RN and Dr. Elaine.
--- NOTE | 2018-11-04 16:39 | PCA ---
faxed demographics, labs and CT results to [facility] [phone], per Dr. Elaine.
[2018-11-04] MEDS: 0.9% NaCl Peripheral Flush Adult/Peds IV (18:15)
[2018-11-04 19:45] VITALS: BP 110/74; PULSE 60; RESP 16; TEMP 36.4; O2SAT 96
--- NOTE | 2018-11-05 15:28 | PCM.DC.SUM ---
Discharge Date and Diagnosis - Problem List Patient Problems: Active and Suspected Problems (Last Reviewed 11/04/18 @ 07:57 by Ruiz Elaine DO) Abscess of sigmoid colon (Acute) Date of Admission: 11/04/18 Date of Discharge: 11/04/18 - Secondary Discharge Diagnosis Chronic Problems (Last Reviewed 11/04/18 @ 07:57 by Ruiz Elaine DO) IBS (irritable bowel syndrome) (Chronic) Hemorrhoids (Chronic) Tobacco dependence (Chronic) GERD (gastroesophageal reflux disease) (Chronic) Obesity (Chronic) PTSD (post-traumatic stress disorder) (Chronic) Bipolar disorder (Chronic) Hospital Course and Treatment Imaging Results: Clinical Impression(s) from Imaging Studies Abdomen/Pelvis CT 11/04/18 04:47 IMPRESSION: Previously seen residual fluid collection/abscess in the deep pelvis between 2 segments off sigmoid colon just superior to the urinary bladder has retracted and contains tiny pockets of air and no fluid. This measures currently 1.6 x 1.7 x 1.1 cm. Minimal residual sigmoid inflammation may be present. No other acute inflammatory process or pathology detected. Stable hepatomegaly, hepatic siderosis, mild splenomegaly. Electronically Signed: Trisha Quintanilla MD at 6:50 EST , Service support , Operations: None Procedures: None Summary of Care Provided: The patient is a 28 year old M presents with acute abdominal pain. Patient was found to have sigmoid abscess on CAT scan though was smaller than previous images available to [facility]. In the ER, this plan for the patient to be transferred to [facility], where he was most recently in where they have gastroenterology coverage. Concern for gastroneurology was apparently toward bowel disease. They inform the emergency room that they would not have a bed available on the fifth. At that point time the hospitalist service was involved to admit the patient and hold onto the transfer. Patient was on Zosyn IV fluids made in. Patient was stable on the floor. He came out to be later that is found out the transfer was canceled. It appeared to be canceled from the escrow secretary in the emergency room. And so is unclear if there is some is communication with the escrow secretary and cancer line but nonetheless it was canceled. When [facility] was contacted again, they stated that would be released over another day before the patient could be transferred. Patient was made aware of this and ended [facility], to which patient agreed. Spoke with 1 of the surgical residents over there and discussed case and agreed to accept the patient over there. Patient was transferred later in the day on the fifth in stable condition. [] Patient Problems: Active and Suspected Problems (Last Reviewed 11/04/18 @ 07:57 by Ruiz Elaine DO) Abscess of sigmoid colon (Acute) - Physical Exam Vital Signs Temp Pulse Resp BP Pulse Ox 36.4 C L 60 16 110/74 96 11/04/18 19:45 11/04/18 19:45 11/04/18 19:45 11/04/18 19:45 11/04/18 19:45 Oxygen Delivery Method Room Air Weight: 121.109 kg Body Mass Index (BMI) 36.2 Home Medications: Medications to take at Discharge Calcium Carbonate [Tums] 1,000 mg PO PRN PRN 08/28/18 Acetaminophen [Tylenol Extra Strength] 1,000 mg PO Q4H PRN PRN 09/09/18 Dicyclomine HCl 20 mg PO 4X/DAY 11/04/18 Hydroxyzine HCl 25 mg PO Q6H PRN 11/04/18 Tizanidine HCl 4 mg PO QHS PRN 11/04/18 Primary Care Physician: Hudson Frazier DO [Primary Care Provider] - Disposition: Acute care Hospital Minutes spent on discharge:: 50 Patient Condition:: Stable Medical Necessity - Tobacco Use Smoking Status: Light Smoker (<10/day) Tobacco Use: Cigarettes Meaningful Use Info Meaningful Use Diagnoses (Choose all that apply): None applicable Code Visit Inpatient E&M: 65441 Disch Hosp
--- NOTE | 2018-11-05 15:32 | DS.PCM_ITS ---
Discharge Date and Diagnosis - Problem List Patient Problems: Active and Suspected Problems (Last Reviewed 11/04/18 @ 07:57 by Ruiz Elaine DO) Abscess of sigmoid colon (Acute) Date of Admission: 11/04/18 Date of Discharge: 11/04/18 - Secondary Discharge Diagnosis Chronic Problems (Last Reviewed 11/04/18 @ 07:57 by Ruiz Elaine DO) IBS (irritable bowel syndrome) (Chronic) Hemorrhoids (Chronic) Tobacco dependence (Chronic) GERD (gastroesophageal reflux disease) (Chronic) Obesity (Chronic) PTSD (post-traumatic stress disorder) (Chronic) Bipolar disorder (Chronic) Hospital Course and Treatment Imaging Results: Clinical Impression(s) from Imaging Studies Abdomen/Pelvis CT 11/04/18 04:47 IMPRESSION: Previously seen residual fluid collection/abscess in the deep pelvis between 2 segments off sigmoid colon just superior to the urinary bladder has retracted and contains tiny pockets of air and no fluid. This measures currently 1.6 x 1.7 x 1.1 cm. Minimal residual sigmoid inflammation may be present. No other acute inflammatory process or pathology detected. Stable hepatomegaly, hepatic siderosis, mild splenomegaly. Electronically Signed: Trisha Quintanilla MD at 6:50 EST , Service support , Operations: None Procedures: None Summary of Care Provided: The patient is a 28 year old M presents with acute abdominal pain. Patient was found to have sigmoid abscess on CAT scan though was smaller than previous images available to [facility]. In the ER, this plan for the patient to be transferred to [facility], where he was most recently in where they have gastroenterology coverage. Concern for gastroneurology was apparently toward bowel disease. They inform the emergency room that they would not have a bed available on the fifth. At that point time the hospitalist service was involved to admit the patient and hold onto the transfer. Patient was on Zosyn IV fluids made in. Patient was stable on the floor. He came out to be later that is found out the transfer was canceled. It appeared to be canceled from the paralegal secretary in the emergency room. And so is unclear if there is some is communication with the paralegal secretary and cancer line but nonetheless it was canceled. When [facility] was contacted again, they stated that would be released over another day before the patient could be transferred. Patient was made aware of this and ended [facility], to which patient agreed. Spoke with 1 of the surgical residents over there and discussed case and agreed to accept the patient over there. Patient was transferred later in the day on the fifth in stable condition. [] Patient Problems: Active and Suspected Problems (Last Reviewed 11/04/18 @ 07:57 by Ruiz Elaine DO) Abscess of sigmoid colon (Acute) - Physical Exam Vital Signs Temp Pulse Resp BP Pulse Ox 36.4 C L 60 16 110/74 96 11/04/18 19:45 11/04/18 19:45 11/04/18 19:45 11/04/18 19:45 11/04/18 19:45 Oxygen Delivery Method Room Air Weight: 121.109 kg Body Mass Index (BMI) 36.2 Home Medications: Medications to take at Discharge Calcium Carbonate [Tums] 1,000 mg PO PRN PRN 08/28/18 Acetaminophen [Tylenol Extra Strength] 1,000 mg PO Q4H PRN PRN 09/09/18 Dicyclomine HCl 20 mg PO 4X/DAY 11/04/18 Hydroxyzine HCl 25 mg PO Q6H PRN 11/04/18 Tizanidine HCl 4 mg PO QHS PRN 11/04/18 Primary Care Physician: Hudson Frazier DO [Primary Care Provider] - Disposition: Acute care Hospital Minutes spent on discharge:: 50 Patient Condition:: Stable Medical Necessity - Tobacco Use Smoking Status: Light Smoker (<10/day) Tobacco Use: Cigarettes Meaningful Use Info Meaningful Use Diagnoses (Choose all that apply): None applicable Code Visit Inpatient E&M: 46569 Disch Hosp
== END 2018-11-04 19:45 | disposition short-term general hospital (02) ==
LOC: ED 04:56 → MS3 07:57
PROVIDERS: Emergency Provider Emergency Medicine; Family Provider Family Medicine; PCP Family Medicine
DX: K63.0 Abscess of intestine (principal); F41.9 Anxiety disorder, unspecified; K21.9 Gastro-esophageal reflux disease without esophagitis; E66.9 Obesity, unspecified; Z68.36 Body mass index [BMI] 36.0-36.9, adult; Z71.3 Dietary counseling and surveillance; K58.9 Irritable bowel syndrome, unspecified; Z79.899 Other long term (current) drug therapy; F43.12 Post-traumatic stress disorder, chronic; F44.81 Dissociative identity disorder; F17.210 Nicotine dependence, cigarettes, uncomplicated
CPT/HCPCS: 74177; 80053; 83690; 85025; 96361; 96365; 96366; 96372; 96375; 96376; 99218; 99284; J7030; Q9967; A4216; G0378; J2405

== ENCOUNTER 2018-11-21 17:03 | Emergency (ER) | payer MEDICARE, SELFPAY ==
[2018-11-04 08:24] VITALS: BMI 36.2
[2018-11-21 17:04] VITALS: BP 204/130; PULSE 81; RESP 20; TEMP 36.2; O2SAT 100; BMI 32.5
--- NOTE | 2018-11-21 18:11 | ED.VISSUMM ---
- ER Visit Summary Date of Service: 11/21/18 Chief Complaint: Acute on chronic abdominal pain History of Present Illness: The patient is a 28 M tree of PTSD and anxiety. Currently being worked up but has not had a definitive diagnosis of possible Crohn's disease. Recently hospitalized and discharged yesterday from [facility]. Patient states he has had numerous tests including 11 different CAT scans of his abdomen and endoscopy. Currently he is on prednisone and amoxicillin. He states he is just having diffuse abdominal pain. Nausea without vomiting. Denies diarrhea. Denies melena or hematemesis. No fever. Physical Examination: Anxious young male. Tearful. Vital signs stable initial blood pressure 204/130. Afebrile. He does not look septic or toxic. H EENT exam unremarkable. Neck nontender. Lungs clear to auscultation bilaterally. Heart regular rhythm rate about 80. Abdomen soft. Diffusely tender. Nondistended. Soft. No signs of obstruction. Positive bowel sounds. No localizing right upper right lower quadrant tenderness. No hernias or masses. No peritoneal signs. Moving all 4 extremities. Neurologically is awake alert with no focal deficits. Test Results: CBC shows a white count 18,000. Hemoglobin 16. No bands. Electrolytes unremarkable. Potassium 3.4. Normal gap and creatinine. Liver enzymes and lipase are normal. Due to the patient's elevated white count I did obtain a CT abdomen pelvis and it showed a stable air-fluid collection in the pelvis adjacent to the sigmoid colon which was slightly inflamed. No free air. I discussed this with the patient this is been seen on his recent admission at [facility]. Emergency Department Course and Treatment: Treated with IV Zofran and Toradol. Repeat exam he is doing well. He will continue on his current antibiotic and follow-up with his primary care physician. Treatment Plan: Continue on his current antibiotic. Follow-up with his primary care physician. Follow-up with his specialist from [facility] Disposition: Discharge Impression: Acute on chronic abdominal pain of uncertain etiology Sigmoid colitis History of anxiety and PTSD This note was generated with iSSimple dictation software. It may contain incorrect words, spelling, and punctuation that were not noted in review of the chart prior to signing ED Disposition - Plan for ED Patient: Referrals: Hudson Frazier DO [Primary Care Provider] -
--- NOTE | 2018-11-21 18:15 | ED.DCSUM_ITS ---
- ER Visit Summary Date of Service: 11/21/18 Chief Complaint: Acute on chronic abdominal pain History of Present Illness: The patient is a 28 M tree of PTSD and anxiety. Currently being worked up but has not had a definitive diagnosis of possible Crohn's disease. Recently hospitalized and discharged yesterday from [facility]. Patient states he has had numerous tests including 11 different CAT scans of his abdomen and endoscopy. Currently he is on prednisone and amoxicillin. He states he is just having diffuse abdominal pain. Nausea without vomiting. Denies diarrhea. Denies melena or hematemesis. No fever. Physical Examination: Anxious young male. Tearful. Vital signs stable initial blood pressure 204/130. Afebrile. He does not look septic or toxic. H EENT exam unremarkable. Neck nontender. Lungs clear to auscultation bilaterally. Heart regular rhythm rate about 80. Abdomen soft. Diffusely tender. Nondistended. Soft. No signs of obstruction. Positive bowel sounds. No localizing right upper right lower quadrant tenderness. No hernias or masses. No peritoneal signs. Moving all 4 extremities. Neurologically is awake alert with no focal deficits. Test Results: CBC shows a white count 18,000. Hemoglobin 16. No bands. Electrolytes unremarkable. Potassium 3.4. Normal gap and creatinine. Liver enzymes and lipase are normal. Due to the patient's elevated white count I did obtain a CT abdomen pelvis and it showed a stable air-fluid collection in the pelvis adjacent to the sigmoid colon which was slightly inflamed. No free air. I discussed this with the patient this is been seen on his recent admission at [facility]. Emergency Department Course and Treatment: Treated with IV Zofran and Toradol. Repeat exam he is doing well. He will continue on his current antibiotic and follow-up with his primary care physician. Treatment Plan: Continue on his current antibiotic. Follow-up with his primary care physician. Follow-up with his specialist from [facility] Disposition: Discharge Impression: Acute on chronic abdominal pain of uncertain etiology Sigmoid colitis History of anxiety and PTSD This note was generated with [employer]or[employer] dictation software. It may contain incorrect words, spelling, and punctuation that were not noted in review of the chart prior to signing ED Disposition - Plan for ED Patient: Referrals: Hudson Frazier DO [Primary Care Provider] -
[2018-11-21 18:48] LABS: Absolute Lymphocyte Count 1.84 X10^3/ul (0.83-4.51); Basophil# 0.02 X10^3/uL; Basophil% 0.1 % (0-1); Eosinophils% 0.6 % (0-5); Hematocrit 50.3 % (40-54); Hemoglobin 16.4 g/dl (13.0-16.5); Lymphocyte # 1.84 X10^3/ul (4.0); Lymphocyte % 10.1 % (19-41); Mean Corp Hgb Conc 32.6 g/gl (32-36); Mean Corpuscular Hgb 29.8 pg (27.0-32.0); Mean Corpuscular Volume 91.5 fL (80-94); Mean Platelet Vol. 11.2 fl (6.2-12.0); Monocyte# 1.16 X10^3/uL; Monocyte% 6.4 % (0-10); Neutrophil # 14.98 X10^3/uL (2.7-7.7); Neutrophil % 82.5 % (47-70); Platelet Count 362 K/mm3 (150-450); RBC Distribution Width SD 47.4 fl (35.1-43.9); White Blood Count 18.2 K/mm3 (4.4-11.0)
[2018-11-21 18:49] LABS: POSITIVE COUNT NO; POSITIVE DIFFERENTIAL NO; POSITIVE MORPHOLOGY NO
[2018-11-21] MEDS: Ketorolac 30 MG/ML Syringe IV (18:49)
[2018-11-21] MEDS: Ondansetron 4 MG/2 ML Vial IV (18:49)
[2018-11-21 19:00] LABS: AST(SGOT) 22 U/L (15-37); Alanine Aminotransfer ALT/SGPT 45 U/L (16-61); Albumin, Serum 4.4 g/dL (3.2-5.0); Alkaline Phosphatase 97 U/L (45-117); Anion Gap 11 (5-15); BUN 18 mg/dL (7-18); BUN/Creat Ratio 17.3 RATIO (10-20); Calcium,Total 9.8 mg/dL (8.5-10.1); Chloride 107 mmol/L (98-107); Creatinine, Serum 1.04 mg/dL (0.70-1.30); EST Glomerular Filtration Rate 90 mL/min (>60); Est Glom Filt Rate - Afr Amer 109 mL/min (>60); Estimated Creatinine Clearance 116.07 ml/min; Globulin 4.8 g/dL (2.2-4.2); Glucose 84 mg/dL (74-106); Lipase 307 U/L (73-393); Potassium 3.4 mmol/L (3.5-5.1); Protein, Total 9.2 g/dL (6.4-8.2); Sodium Level 143 mmol/L (136-145)
--- NOTE | 2018-11-21 20:00 | CT_ITS ---
STUDY: CT ABDOMEN AND PELVIS WITH CONTRAST REASON FOR EXAM: Male, 28 years old. Abdominal pain. RADIATION DOSAGE (If Supplied By Facility): CTDIvol = ( 21.74 ) mGy, DLP = ( 1294.01 ) mGycm TECHNIQUE: Transaxial images were obtained from the dome of the diaphragm to the symphysis pubis without oral contrast. 100ML ml of Isovue 300 contrast was administered. Sagittal and coronal images were reconstructed. Individualized dose optimization techniques were used for this CT. COMPARISON: 11/04/2018 FINDINGS: The visualized lung bases are clear. The visualized portions of the heart and pericardium are within normal limits. There are no calcified gallstones present. The liver is within normal limits. There are no suspicious hepatic lesions. The spleen is normal in size. The pancreas is within normal limits. The adrenal glands are within normal limits. There are no renal or ureteral stones. There is no hydronephrosis. There are no focal renal lesions. There is a stable 1.6 x 1.6 cm air and fluid collection in the pelvis adjacent to the sigmoid colon. There is stable mild adjacent inflammation in the sigmoid colon. There is a small amount of pelvic free fluid. There is no free air. Normal visualized stomach. There is no bowel obstruction. The appendix is visualized and appears normal. The aorta is normal in caliber. There are no destructive osseous lesions. CT/Abdomen/Pelvis W IV Cont ONLY IMPRESSION: Stable 1.6 x 1.5 cm air and fluid collection in the pelvis adjacent to the sigmoid colon. Stable mild adjacent inflammation in the sigmoid colon. No bowel obstruction. Normal appendix. Small amount of free fluid. No free air. Electronically Signed: Jerome Sharma, at 21:35 EST Tel , Service support ,
[2018-11-21 20:47] VITALS: BP 162/96; PULSE 66; RESP 15
--- NOTE | 2018-11-21 21:47 | ED.DEP ---
ED Disposition - Plan for ED Patient: Disposition: Home or Assisted Living Instructions: ED Abdominal Pain Unkn Cause Referrals: Hudson Frazier DO [Primary Care Provider] - As soon as possible Additional Instructions: Continue your current antibiotic. Follow-up with your primary care physician. Tylenol and Motrin for pain.
[2018-11-21] MEDS: HYDROcodone Bitartrate/Apap 5/325 Tablet PO (22:03)
[2018-11-21] MEDS: Ondansetron ODT 4 MG Tablet PO (22:03)
[2018-11-21 22:07] VITALS: BP 154/93; RESP 15
== END 2018-11-21 22:09 | disposition home or self-care (01) ==
PROVIDERS: Emergency Provider Emergency Medicine; Family Provider Family Medicine; PCP Family Medicine
DX: G89.29 Other chronic pain (principal); R10.9 Unspecified abdominal pain; K52.9 Noninfective gastroenteritis and colitis, unspecified; Z72.0 Tobacco use
CPT/HCPCS: 74177; 80048; 80076; 83690; 85025; 96374; 96375; 99285; J7030; Q9967; A4216; J2405

== ENCOUNTER 2019-01-15 22:52 | Emergency (ER) | payer MEDICARE, SELFPAY ==
[2019-01-15 22:54] VITALS: BP 164/100; PULSE 100; RESP 18; TEMP 36.7; O2SAT 100; BMI 35.2
--- NOTE | 2019-01-15 23:16 | ED.VISSUMM ---
- ER Visit Summary Date of Service: 01/15/19 Chief Complaint: Abdominal pain History of Present Illness: The patient is a 29 M who presents with abdominal pain. This pain began 3 days ago. However it acutely worsened 4 hours ago. It is currently severe. His pain is worst in the right lower quadrant. He also complains of rectal pain with defecation which he describes as razor wire. He was recently diagnosed with Crohn's disease. He just completed a prednisone taper and was started on budesonide. His cartographic drafter is planning on starting Humira but he has not yet had this approved. He earlier this year had developed an intra-abdominal abscess with multiple admissions. He denies any fever. He also complains of some upper respiratory symptoms and sore throat. He states he had some diarrhea a couple of days ago but this is since resolved. He reports nausea without vomiting. Physical Examination: Afebrile blood pressure 164/100, heart rate 100 Patient appears uncomfortable Moist mucous membranes Heart regular rate and rhythm Lungs are clear Abdomen soft he has focal right lower quadrant tenderness without guarding without rebound Anal fissures noted he has one at 6:00 and a second at 10:00 Test Results: CBC BMP unremarkable. CT of the abdomen and pelvis with oral and IV contrast shows the pelvic inflammatory process to be decreased in size there is still a tiny residual air pocket. Please see CT report for full details. Emergency Department Course and Treatment: Patient was initially treated with IV fluids morphine and Zofran. He continued to complain of pain and was given a second dose of morphine with little change. He was then given IV Dilaudid. He feels much better on reevaluation. His abdominal exam is improved he has no guarding no rebound he does not appear to have surgical abdomen. Laboratory studies unremarkable and CT shows improvement from prior imaging. Therefore I do not see an indication for hospitalization. The patient would prefer to go home. He understands to follow-up with his cartographic drafter. He understands to return for new or worsening symptoms. He was discharged. Treatment Plan: [] Disposition: Discharge Impression: Abdominal pain Crohn's disease Anal fissure This note was generated with [employer] dictation software. It may contain incorrect words, spelling, and punctuation that were not noted in review of the chart prior to signing ED Disposition - Plan for ED Patient: Referrals: Hudson Frazier DO [Primary Care Provider] -
--- NOTE | 2019-01-15 23:19 | ED.DCSUM_ITS ---
- ER Visit Summary Date of Service: 01/15/19 Chief Complaint: Abdominal pain History of Present Illness: The patient is a 29 M who presents with abdominal pain. This pain began 3 days ago. However it acutely worsened 4 hours ago. It is currently severe. His pain is worst in the right lower quadrant. He also complains of rectal pain with defecation which he describes as razor wire. He was recently diagnosed with Crohn's disease. He just completed a prednisone taper and was started on budesonide. His internal audit manager is planning on starting Humira but he has not yet had this approved. He earlier this year had developed an intra-abdominal abscess with multiple admissions. He denies any fe keith. He also complains of some upper respiratory symptoms and sore throat. He states he had some diarrhea a couple of days ago but this is since resolved. He reports nausea without vomiting. Physical Examination: Afebrile blood pressure 164/100, heart rate 100 Patient appears uncomfortable Moist mucous membranes Heart regular rate and rhythm Lungs are clear Abdomen soft he has focal right lower quadrant tenderness without guarding without rebound Anal fissures noted he has one at 6:00 and a second at 10:00 Test Results: CBC BMP unremarkable. CT of the abdomen and pelvis with oral and IV contrast shows the pelvic inflammatory process to be decreased in size there is still a tiny residual air pocket. Please see CT report for full details. Emergency Department Course and Treatment: Patient was initially treated with IV fluids morphine and Zofran. He continued to complain of pain and was given a se cond dose of morphine with little change. He was then given IV Dilaudid. He feels much better on reevaluation. His abdominal exam is improved he has no guarding no rebound he does not appear to have surgical abdomen. Laboratory studies unremarkable and CT shows improvement from prior imaging. Therefore I do not see an indication for hospitalization. The patient would prefer to go home. He understands to follow-up with his internal audit manager. He understands to return for new or worsening symptoms. He was discharged. Treatment Plan: [] Disposition: Discharge Impression: Abdominal pain Crohn's disease Anal fissure This note was generated with [employer] dictation software. It may contain incorrect words, spelling, and punctuation that were not noted in review of the chart prior to signing ED Disposition - Plan for ED Patient: Referrals: Hudson Frazier DO [Primary Care Provider] -
[2019-01-15] MEDS: Ondansetron 4 MG/2 ML Vial IV (23:34)
[2019-01-15] MEDS: 0.9% Normal Saline 1,000 ML 1000 ML IV (23:34)
[2019-01-15] MEDS: Morphine 4 MG/ML Syringe IV (23:35)
[2019-01-15 23:50] LABS: Absolute Lymphocyte Count 1.27 X10^3/ul (0.83-4.51); Absolute Neutrophil Count 4.6 X10^3/uL (2.0-7.7); Basophil# 0.01 X10^3/uL; Basophil% 0.1 % (0-1); Eosinophil# 0.16 X10^3/uL; Eosinophils% 2.4 % (0-5); Hematocrit 44.7 % (40-54); Hemoglobin 15.1 g/dl (13.0-16.5); Lymphocyte # 1.27 X10^3/ul (4.0); Lymphocyte % 18.9 % (19-41); Mean Corp Hgb Conc 33.8 g/gl (32-36); Mean Corpuscular Hgb 30.4 pg (27.0-32.0); Mean Corpuscular Volume 89.9 fL (80-94); Mean Platelet Vol. 10.3 fl (6.2-12.0); Monocyte% 8.9 % (0-10); Neutrophil # 4.64 X10^3/uL (2.7-7.7); Neutrophil % 69.3 % (47-70); Platelet Count 239 K/mm3 (150-450); RBC Distribution Width CV 13.3 % (11.6-14.6); RBC Distribution Width SD 43.6 fl (35.1-43.9); Red Blood Count 4.97 M/mm3 (4.6-6.2); White Blood Count 6.7 K/mm3 (4.4-11.0)
[2019-01-15 23:51] LABS: POSITIVE COUNT NO; POSITIVE DIFFERENTIAL NO; POSITIVE MORPHOLOGY NO
[2019-01-16 00:01] LABS: Anion Gap 9 (5-15); BUN 12 mg/dL (7-18); BUN/Creat Ratio 13.2 RATIO (10-20); Chloride 105 mmol/L (98-107); Creatinine, Serum 0.91 mg/dL (0.70-1.30); EST Glomerular Filtration Rate 105 mL/min (>60); Est Glom Filt Rate - Afr Amer 127 mL/min (>60); Estimated Creatinine Clearance 131.47 ml/min; Glucose 111 mg/dL (74-106); Potassium 3.7 mmol/L (3.5-5.1); Sodium Level 138 mmol/L (136-145)
[2019-01-16] MEDS: Morphine 4 MG/ML Syringe IV (00:23)
[2019-01-16 00:26] VITALS: BP 111/70; PULSE 62; RESP 20; TEMP 36.4; O2SAT 98
--- NOTE | 2019-01-16 01:30 | ED.RN ---
patient continues to complain of pain. dr. mackenzie notified. no new orders at this time.
[2019-01-16 02:30] VITALS: RESP 16
[2019-01-16] MEDS: HYDROmorphone 1 MG/ML Syringe IV (03:06)
--- NOTE | 2019-01-16 04:21 | ED.DEP ---
ED Disposition - Plan for ED Patient: Instructions: ED Inflam Bowel Disease Crohn, ED Fissure Anal Ch Referrals: Hudson Frazier DO [Primary Care Provider] -
[2019-01-16 04:31] VITALS: BP 161/104; PULSE 76; RESP 16; O2SAT 98
--- NOTE | 2019-01-16 23:12 | CT_ITS ---
STUDY: CT ABDOMEN AND PELVIS WITH CONTRAST REASON FOR EXAM: Male, 29 years old. Abdominal pain x3 days, nausea. Recent diagnosis of Crohn's disease. History of hypertension, COPD, kidney stones, ABIs, diverticulitis. RADIATION DOSAGE (If Supplied By Facility): CTDIvol = ( 23.73 ) mGy, DLP = ( 1376.86 ) mGycm TECHNIQUE: Transaxial 3.75 mm images were obtained from the dome of the diaphragm to the symphysis pubis with oral contrast. 100ml IV/Oral Isovue 300 was administered. Sagittal and coronal images were reconstructed. Individualized dose optimization techniques were used for this CT. COMPARISON: CT abdomen and pelvis 11/21/2018. 11/04/2018. 09/09/2018. FINDINGS: The visualized lung bases are unremarkable. The visualized portions of the heart are within normal limits. Normal liver. Normal gallbladder and extrahepatic biliary system. Normal spleen. Normal pancreas. Normal bilateral adrenal glands. Normal right kidney. Normal left kidney. Normal visualized stomach. There is decreased soft tissue and inflammatory infiltration in the pelvis with slight retraction of the soft tissue adjacent to the sigmoid colon and pelvic small bowel containing a tiny pocket of air. This measures currently 2.6 x 1.2 cm image 110 series 2 approximately 3.2 x 1.4 cm 11/21/2018 and is not significantly changed since 11/04/2018. There is resolution of previous pockets of air. The previously seen tiny pockets of air within the mesenteric fat have resolved. There are inflammatory reactions along the urinary bladder, adjacent to the sigmoid colon which demonstrate wall thickening and rare diverticula and pelvic small bowel. There is tethering of the adjacent intestine. Mild caliber change along the distal small bowel at the site of inflammation, there is however no obstructive pattern. Rare sigmoid diverticula, there is mild wall prominence and indistinct contour. The appendix is visualized and appears normal. Normal abdominal aorta. Normal inferior vena cava. Normal retroperitoneum. Decompressed urinary bladder. Normal abdominal wall. Normal osseous structures. CT/Abdomen/Pelvis WITH Contrast IMPRESSION: Pelvic inflammatory process has decreased in size and inflammation since previous examination with soft tissue and a tiny residual air pocket, interval resolution of small mesenteric pockets. There is continued adjacent tethering of bowel and stranding including the superior aspect of the urinary bladder. The process is likely arising of the colonic diverticulosis of the sigmoid colon, mild inflammation is still suggested with mild wall prominence. No overt fistulization between bowels and urinary bladder are detected. No other signs of abscess, collection, perforation or obstruction. There is mild caliber change of the pelvic small bowel adjacent to the inflammation, there is however no obstruction. Electronically Signed: Trisha Quintanilla MD at 4:08 EDT , Service support ,
== END 2019-01-16 04:33 | disposition home or self-care (01) ==
LOC: ED 23:18
PROVIDERS: Emergency Provider Emergency Medicine; Family Provider Family Medicine; PCP Family Medicine
DX: R10.9 Unspecified abdominal pain (principal); K50.90 Crohn's disease, unspecified, without complications; K60.2 Anal fissure, unspecified; I10 Essential (primary) hypertension; J02.9 Acute pharyngitis, unspecified; Z72.0 Tobacco use
CPT/HCPCS: 74177; 80048; 85025; 96361; 96374; 96375; 96376; 99283; J7030; Q9967; J2405

== ENCOUNTER 2019-02-15 13:17 | Emergency (ER) | payer MEDICARE, SELFPAY ==
[2019-02-15 13:18] VITALS: BP 145/105; PULSE 66; RESP 17; TEMP 36.6; O2SAT 99; BMI 36.8
--- NOTE | 2019-02-15 13:40 | CT_ITS ---
STUDY: CT BRAIN WITHOUT CONTRAST REASON FOR EXAM: Male, 29 years old. Headache RADIATION DOSAGE (If Supplied By Facility): CTDIvol = ( 44.99 ) mGy, DLP = ( 846.73 ) mGycm TECHNIQUE: Transaxial CT imaging of the brain was performed without administration of intravenous contrast material. Individualized dose optimization techniques were used for this CT. COMPARISON: 08/18/2017 FINDINGS: There is no acute bleed or infarct. There are normal white matter tracts. The ventricles are normal in configuration. There is no hydrocephalus. The visualized paranasal sinuses are clear. The mastoid air cells are well aerated. There is no skull fracture. CT/Brain/Head without Contrast IMPRESSION: No acute intracranial abnormality. Electronically Signed: Jerome Sharma, at 14:38 EDT Tel , Service support ,
[2019-02-15 13:58] VITALS: BP 134/83; PULSE 63; RESP 16
[2019-02-15] MEDS: Ketorolac 30 MG/ML Syringe IV (13:59)
[2019-02-15] MEDS: 0.9% Normal Saline 1,000 ML 1000 ML IV (13:59)
[2019-02-15] MEDS: DiphenhydrAMINE 50 MG/ML Syringe 25 MG IV (13:59)
[2019-02-15] MEDS: Metoclopramide 10 MG/2 ML Vial IV (13:59)
[2019-02-15 14:10] LABS: Absolute Lymphocyte Count 1.59 X10^3/ul (0.83-4.51); Absolute Neutrophil Count 8.8 X10^3/uL (2.0-7.7); Basophil# 0.01 X10^3/uL; Basophil% 0.1 % (0-1); Eosinophil# 0.25 X10^3/uL; Eosinophils% 2.2 % (0-5); Hematocrit 44.8 % (40-54); Lymphocyte # 1.59 X10^3/ul (4.0); Mean Corp Hgb Conc 33.5 g/gl (32-36); Mean Corpuscular Hgb 29.6 pg (27.0-32.0); Mean Corpuscular Volume 88.5 fL (80-94); Mean Platelet Vol. 9.8 fl (6.2-12.0); Monocyte# 0.71 X10^3/uL; Monocyte% 6.2 % (0-10); Neutrophil # 8.77 X10^3/uL (2.7-7.7); Neutrophil % 77.1 % (47-70); Platelet Count 242 K/mm3 (150-450); RBC Distribution Width CV 14.5 % (11.6-14.6); RBC Distribution Width SD 47.3 fl (35.1-43.9); Red Blood Count 5.06 M/mm3 (4.6-6.2); White Blood Count 11.4 K/mm3 (4.4-11.0)
[2019-02-15 14:11] LABS: POSITIVE COUNT NO; POSITIVE DIFFERENTIAL NO; POSITIVE MORPHOLOGY NO
[2019-02-15 14:22] LABS: Anion Gap 8 (5-15); BUN 22 mg/dL (7-18); BUN/Creat Ratio 25.2 RATIO (10-20); Calcium,Total 9.3 mg/dL (8.5-10.1); Chloride 106 mmol/L (98-107); Creatinine, Serum 0.87 mg/dL (0.70-1.30); EST Glomerular Filtration Rate 110 mL/min (>60); Est Glom Filt Rate - Afr Amer 133 mL/min (>60); Estimated Creatinine Clearance 137.51 ml/min; Glucose 82 mg/dL (74-106); Potassium 3.7 mmol/L (3.5-5.1); Sodium Level 143 mmol/L (136-145)
--- NOTE | 2019-02-15 15:15 | ED.DCSUM_ITS ---
- ER Visit Summary Date of Service: 02/15/19 Chief Complaint: Headache, vomiting History of Present Illness: The patient is a 29 M who presents with right frontal headache started earlier today. He describes as a throbbing sensation. He has been vomiting for the past 3 days as well. He tried Tylenol this morning without improvement. He denies any recent head injury. He has had not had recent URI symptoms. Physical Examination: Vital signs remarkable only for blood pressure of 145/105, otherwise unremarkable. Patient sitting upright in a darkened room. He is in no acute distress. Head and neck examination unremarkable. There is no meningismus. Heart is regular rate and rhythm. Lung sounds are clear. Abdomen is soft with mild tenderness to the right lower quadrant. Patient states his pain is chronic secondary to his Crohn's. There is no guarding or rebound. Neuro exam reveals no focal deficits. Test Results: CBC was a white count 11.4 with 77% neutrophils. Chemistry studies unremarkable. CT head shows no acute abnormality. Emergency Department Course and Treatment: Patient is given Toradol, Reglan, Benadryl, and IV fluids. On repeat evaluation he has had significant improvement in his pain. Patient be discharged with family members at this time. Treatment Plan: [] Disposition: Discharge Impression: Cephalgia, improved This note was generated with [employer] dictation software. It may contain incorrect words, spelling, and punctuation that were not noted in review of the chart prior to signing ED Disposition - Plan for ED Patient: Referrals: Hudson Frazier DO [Primary Care Provider] -
--- NOTE | 2019-02-15 15:15 | ED.VISSUMM ---
- ER Visit Summary Date of Service: 02/15/19 Chief Complaint: [] History of Present Illness: The patient is a 29 M [] Physical Examination: [] Test Results: [] Emergency Department Course and Treatment: [] Treatment Plan: [] Disposition: [] Impression: [] This note was generated with [employer] dictation software. It may contain incorrect words, spelling, and punctuation that were not noted in review of the chart prior to signing ED Disposition - Plan for ED Patient: Disposition: Home or Assisted Living Instructions: ED Headache Migraine Referrals: Hudson Frazier DO [Primary Care Provider] - 3-5 Days if not improving
--- NOTE | 2019-02-15 15:18 | ED.DCSUM_ITS ---
- ER Visit Summary Date of Service: 02/15/19 Chief Complaint: [] History of Present Illness: The patient is a 29 M [] Physical Examination: [] Test Results: [] Emergency Department Course and Treatment: [] Treatment Plan: [] Disposition: [] Impression: [] This note was generated with [employer] dictation software. It may contain incorrect words, spelling, and punctuation that were not noted in review of the chart prior to signing ED Disposition - Plan for ED Patient: Disposition: Home or Assisted Living Instructions: ED Headache Migraine Referrals: Hudson Frazier DO [Primary Care Provider] - 3-5 Days if not improving
[2019-02-15 15:42] VITALS: BP 123/73; PULSE 53; RESP 15
== END 2019-02-15 15:43 | disposition home or self-care (01) ==
PROVIDERS: Emergency Provider Emergency Medicine; Family Provider Family Medicine; PCP Family Medicine
DX: R51 Headache (principal); R11.2 Nausea with vomiting, unspecified; I10 Essential (primary) hypertension; J44.9 Chronic obstructive pulmonary disease, unspecified; K21.9 Gastro-esophageal reflux disease without esophagitis; K58.9 Irritable bowel syndrome, unspecified; Z72.0 Tobacco use; F12.20 Cannabis dependence, uncomplicated
CPT/HCPCS: 70450; 80048; 85025; 96361; 96374; 96375; 99285; J7030; A4216

== ENCOUNTER 2019-04-16 20:39 | Emergency (ER) | payer MEDICARE, SELFPAY ==
[2019-04-16 20:41] VITALS: BP 167/103; PULSE 89; RESP 18; TEMP 37.1; O2SAT 99; BMI 38.9
--- NOTE | 2019-04-16 22:22 | CT_ITS ---
STUDY: CT ABDOMEN AND PELVIS WITH CONTRAST REASON FOR EXAM: Male, 29 years old. Abdominal pain on the right RADIATION DOSAGE (If Supplied By Facility): CTDIvol = ( 20.39 ) mGy, DLP = ( 1327.99 ) mGycm TECHNIQUE: Transaxial images were obtained from the dome of the diaphragm to the symphysis pubis without oral contrast. 100ML IV Isovue 300 was administered. Sagittal and coronal images were reconstructed. Individualized dose optimization techniques were used for this CT. COMPARISON: January 16, 2019 FINDINGS: The visualized lung bases are unremarkable. The visualized portions of the heart are within normal limits. Normal liver. Normal gallbladder and extrahepatic biliary system. Normal spleen. Normal pancreas. Normal bilateral adrenal glands. Normal right kidney. Normal left kidney. Normal visualized stomach. Normal small intestine. Mild sigmoid diverticulosis. There is a questionable fistula between the sigmoid and the superior aspect of the urinary bladder. The appendix is visualized and appears normal. Normal abdominal aorta. Normal inferior vena cava. Normal retroperitoneum. Normal abdominal wall. Normal osseous structures. CT/Abdomen/Pelvis W IV Cont ONLY IMPRESSION: Mild sigmoid diverticulosis. There is a questionable fistula between the sigmoid and the superior aspect of the urinary bladder. Normal appendix. Electronically Signed: Connor Gonzales DO at 23:22 EDT Tel [phone], Service support ,
[2019-04-16] MEDS: Morphine 4 MG/ML Syringe IV (22:35)
[2019-04-16] MEDS: 0.9% Normal Saline 1,000 ML 1000 ML IV (22:35)
[2019-04-16] MEDS: Ketorolac 30 MG/ML Syringe IV (22:36)
[2019-04-16 22:45] LABS: Absolute Neutrophil Count 7.1 X10^3/uL (2.0-7.7); Basophil# 0.01 X10^3/uL; Basophil% 0.1 % (0-1); Eosinophil# 0.14 X10^3/uL; Eosinophils% 1.4 % (0-5); Hematocrit 44.9 % (40-54); Hemoglobin 14.9 g/dL (13.0-16.5); Lymphocyte % 20.3 % (19-41); Mean Corp Hgb Conc 33.2 g/dL (32-36); Mean Corpuscular Volume 90.5 fL (80-94); Mean Platelet Vol. 10.4 fl (6.2-12.0); Monocyte# 0.54 X10^3/uL; Monocyte% 5.5 % (0-10); NRBC Flagged by Analyzer 0 % (0-5); Neutrophil # 7.12 X10^3/uL (2.7-7.7); Neutrophil % 72.1 % (47-70); Platelet Count 272 K/mm3 (150-450); RBC Distribution Width SD 42.7 fl (35.1-43.9); Red Blood Count 4.96 M/mm3 (4.6-6.2); White Blood Count 9.9 K/mm3 (4.4-11.0)
[2019-04-16 23:04] LABS: AST(SGOT) 15 U/L (15-37); Alanine Aminotransfer ALT/SGPT 44 U/L (16-61); Albumin, Serum 3.9 g/dL (3.2-5.0); Alkaline Phosphatase 76 U/L (45-117); Anion Gap 6 (5-15); BUN 15 mg/dL (7-18); BUN/Creat Ratio 17.7 RATIO (10-20); Calcium,Total 9.1 mg/dL (8.5-10.1); Chloride 107 mmol/L (98-107); Creatinine, Serum 0.85 mg/dL (0.70-1.30); EST Glomerular Filtration Rate 113 mL/min (>60); Est Glom Filt Rate - Afr Amer 137 mL/min (>60); Estimated Creatinine Clearance 140.75 ml/min; Globulin 4.1 g/dL (2.2-4.2); Glucose 98 mg/dL (74-106); Potassium 3.8 mmol/L (3.5-5.1); Sodium Level 137 mmol/L (136-145)
--- NOTE | 2019-04-16 23:39 | ED.DCSUM_ITS ---
History of Present Illness Chief Complaint: Abd Pain Informant: Patient - Abdominal Pain/Flank Pain Onset: Yesterday Context: Gradual Onset Timing: Continuous Quality: Aching Location: RLQ Current Severity: Severe Maximum Severity: Severe Worsened by: Nothing Relieved by: Nothing - Nausea/Vomiting/Emesis GI Symptom: Negative for: Nausea, Vomiting - Diarrhea/Melena/Hematochezia GI Symptom: Negative for: Diarrhea, Melena, Hematochezia Stool Quality: Loose - last BM, ARAVIND per rectum - occasional, none today. Negative for: Black, Maroon Associated Symptoms: Negative for: Dysuria, Frequency, Hematuria, Urgency Narrative: History of Crohn's, concerned he may be having a flareup as he had pain like this with his flareup in the past, although he has had diarrhea and bloody stools with flareups in the past although he has none of that now. He has no nausea or vomiting. There was no sudden onset of the discomfort and he has no urinary symptoms, does not radiate into his back. No nausea or vomiting. He has been compliant with his Entocort which has been controlling his Crohn's fairly well. He has had no history of abdominal surgeries. No recent fevers. - Past Medical History (1) Crohn's disease Status: Chronic (2) Diverticulitis Status: Chronic (3) Bipolar disorder Status: Chronic (4) GERD (gastroesophageal reflux disease) Status: Chronic (5) IBS (irritable bowel syndrome) Status: Chronic (6) PTSD (post-traumatic stress disorder) Status: Chronic Past Medical History - Allergies and Home Meds Allergies/Adverse Reactions: Allergies dextromethorphan HBr [From NyQuil] Allergy (Verified 04/16/19 20:43) Anaphylaxis doxylamine [From NyQuil] Allergy (Verified 04/16/19 20:43) Anaphylaxis poison mimi extract [Poison Mimi Extract] Allergy (Verified 04/16/19 20:43) Anaphylaxis pseudoephedrine HCl [From NyQuil] Allergy (Verified 04/16/19 20:43) Anaphylaxis venom-honey bee [bee venom (honey bee)] Allergy (Verified 04/16/19 20:43) Anaphylaxis MUSHROOMS Allergy (Uncoded 04/16/19 20:43) Anaphylaxis Primary Care Physician: Hudson Frazier DO [Primary Care Provider] - Surgical History: no surgical history, - - testicular surgery on cyst--nonresectable., left foot Lives: Spouse/ Significant Other Smoking Status: Current some day smoker Drugs: None - Family History Paternal Family History: Family History (Last Updated 11/04/18 @ 07:58 by Ruiz Elaine DO) Other Ulcerative colitis Family History: Reports: Heart Disease, - - murdered Maternal Family History: Family History (Last Updated 11/04/18 @ 07:58 by Ruiz Elaine DO) Other Ulcerative colitis Family History: Reports: No pertinent history Review of Systems General: Denies: Chills, Fever, Sweats Eyes: Denies: Visual changes - bilaterally, Diplopia ENT: Denies: Rhinorrhea, Sore throat Cardiovascular: Denies: Chest pain, Palpitations Respiratory: Denies: Dyspnea, Cough, Dyspnea on exertion Gastrointestinal: Reports: Abdominal pain, Hematochezia. Denies: Nausea, Vomiting, Diarrhea, Melena Genitourinary: Denies: Dysuria, Hematuria, Frequency Musculoskeletal: Denies: Back pain, Extremity Pain Skin: Denies: Rash, Wounds Neurological: Denies: Headache, Weakness, Numbness Psych: Reports: Anxiety. Denies: Suicidal thoughts, Suicidal ideations Physical Exam Vital Signs/Narrative: Vital Signs Temp Pulse Resp BP Pulse Ox 04/16/19 20:41 98.8 F 89 18 167/103 H 99 Inital Vital Signs reviewed: Yes General: Well nourished, Well developed, No Acute Distress - But uncomfortable, in pain Head: Normocephalic, Atraumatic Eyes: Perrl, EOMI ENT: Moist mucous membranes, No rhinorrhea Neck: Supple, Nontender Cardiovascular: Regular rate, Regular rhythm, No murmurs Respiratory: No distress, CTA bilaterally, Chest nontender Abdomen: Soft, Nondistended, Normal bowel sounds, Tender - Right lower quadrant, otherwise nontender, Psoas sign. Negative for: Guarding, Rebound tenderness, Obturator sign, Rovsig's sign, Waddell's sign Back: Nontender, Normal Inspection. Negative for: CVA tenderness Extremities: Nontender, No edema Skin: Normal color, No rash, No Trauma Neurological: Alert, Oriented x3, Cranial nerves II-XII grossly intact, Normal Strength, Normal Sensation Psychological: Normal Mood, - - Anxious Diagnostic/Tx/Re-eval Impressions Abdomen/Pelvis CT 04/16/19 22:22 IMPRESSION: Mild sigmoid diverticulosis. There is a questionable fistula between the sigmoid and the superior aspect of the urinary bladder. Normal appendix. Electronically Signed: Connor Gonzales DO at 23:22 EDT Tel [phone], Service support , Laboratory Tests 04/16/19 04/16/19 04/16/19 Range/Units 23:59 22:36 22:36 WBC 9.9 (4.4-11.0) K/mm3 RBC 4.96 (4.6-6.2) M/mm3 Hgb 14.9 (13.0-16.5) g/dL Hct 44.9 (40-54) % MCV 90.5 (80-94) fL MCH 30.0 (27.0-32.0) pg MCHC 33.2 (32-36) g/dL RDW Std Deviation 42.7 (35.1-43.9) fl RDW Coeff of Bre 13.0 (11.6-14.6) % Plt Count 272 (150-450) K/mm3 MPV 10.4 (6.2-12.0) fl Immature Gran % (Auto) 0.600 (0.0-0.9) % Neut % (Auto) 72.1 H (47-70) % Lymph % (Auto) 20.3 (19-41) % [place] % (Auto) 5.5 (0-10) % Eos % (Auto) 1.4 (0-5) % Baso % (Auto) 0.1 (0-1) % Absolute Neuts (auto) 7.1 (2.0-7.7) X10^3/uL Absolute Lymphs (auto) 2.00 (0.83-4.51) X10^3/uL Absolute Nucleated RBC 0.00 (0-5) 10^3/uL Nucleated RBC % 0 (0-5) % Sodium 137 (136-145) mmol/L Potassium 3.8 (3.5-5.1) mmol/L Chloride 107 (98-107) mmol/L Carbon Dioxide 24.0 (21.0-32.0) mmol/L Anion Gap 6 (5-15) BUN 15 (7-18) mg/dL Creatinine 0.85 (0.70-1.30) mg/dL Estim Creat Clear Calc 140.75 ml/min Est GFR (MDRD) Af Amer 137 (>60) mL/min Est GFR (MDRD) Non-Af 113 (>60) mL/min BUN/Creatinine Ratio 17.7 (10-20) RATIO Glucose 98 (74-106) mg/dL Calcium 9.1 (8.5-10.1) mg/dL Total Bilirubin 0.30 (0.20-1.00) mg/dL AST 15 (15-37) U/L ALT 44 (16-61) U/L Alkaline Phosphatase 76 (45-117) U/L Total Protein 8.0 (6.4-8.2) g/dL Albumin 3.9 (3.2-5.0) g/dL Globulin 4.1 (2.2-4.2) g/dL Albumin/Globulin Ratio 1.0 (0.9-2.4) RATIO Urine Color Yellow (Yellow) Urine Clarity Clear (Clear) Urine pH 5.0 (5.0 - 8.0) Ur Specific [place] 1.010 (1.002-1.030) Urine Protein 15 H (Negative) mg/dl Urine Glucose (UA) Normal (Normal) mg/dl Urine Ketones Negative (Negative) mg/dl Urine Occult Blood 10 H (Negative) /ul Urine Nitrite Negative (Negative) Urine Bilirubin Negative (Negative) mg/dL Urine Urobilinogen Normal (Normal) mg/dl Ur Leukocyte Esterase Negative (Negative) /ul Urine RBC 0 SEEN (0-5) /hpf Urine WBC 0 SEEN (0-5) /hpf Ur Squamous Epith Cells 0 SEEN (0-5) /hpf Urine Bacteria 0 SEEN (None Seen) /hpf Urine Mucus 0 SEEN (<or=2+) /hpf - Medical Decision Making Labs are fairly unremarkable, however this is not enough to rule out acute appendicitis, which is certainly in the differential here. Therefore CT was performed, shows a normal appendix and no signs of any acute inflammatory conditions, but did show the possibility of a fistula between sigmoid colon and the bladder. This is on the left side, and he is not tender there. Furthermore, his urinalysis shows no signs of infection, making an actual sy mptomatic enterocystic fistula very unlikely. After treatment and fluids, he is feeling better now. I think it is reasonable to send him home with a short course of tramadol, I do not think prednisone is necessary, and he should follow-up with his laboratory clerk. He is comfortable with that plan. ED Disposition - Plan for ED Patient: Disposition: Home or Assisted Living Diagnosis: RLQ abdominal pain, Crohn's disease Instructions: ABDOMINAL PAIN, Unkown Cause, (Male) Prescriptions: traMADol [Ultram] 50 mg PO Q4H PRN PRN 3 Days #15 tab PRN Reason: Pain Prescription Printed Referrals: Hudson Frazier DO [Primary Care Provider] - 3-5 Days if not improving (and/or your laboratory clerk) Additional Instructions: Your CT scan showed a possible communication, or fistula, between part of your colon and your bladder. Your urine today shows no sign of any infection, which would be very likely to be present if you had such a communication. For now you will need to follow-up with your GI specialist.
[2019-04-17 00:02] VITALS: BP 138/51; PULSE 79; RESP 16; O2SAT 98
[2019-04-17 00:03] LABS: Bacteria 0 SEEN /hpf (None Seen); Mucous, Urine 0 SEEN /hpf (<or=2+); Red Blood Cells-Urine 0 SEEN /hpf (0-5); Squamous Epithelial Cells - UA 0 SEEN /hpf (0-5); White Blood Cells 0 SEEN /hpf (0-5)
[2019-04-17 00:04] LABS: Color, Urine Yellow (Yellow); Glucose, Dipstick Normal (Normal); Ketone-Dipstick Negative (Negative); Leukocyte Esterase-Dipstick Negative /ul (Negative); Nitrite-Dipstick Negative (Negative); Occult Blood-Urine 10 /ul (Negative); Protein-Dipstick 15 mg/dl (Negative); Urine Bilirubin Dipstick Negative (Negative); Urine Clarity Clear (Clear); Urine Urobilinogen Normal (Normal)
== END 2019-04-17 00:54 | disposition home or self-care (01) ==
PROVIDERS: Emergency Provider Emergency Medicine; Family Provider Family Medicine; PCP Family Medicine
DX: R10.31 Right lower quadrant pain (principal); K50.90 Crohn's disease, unspecified, without complications; K57.30 Diverticulosis of large intestine without perforation or abscess without bleeding; F31.9 Bipolar disorder, unspecified; K21.9 Gastro-esophageal reflux disease without esophagitis; F43.10 Post-traumatic stress disorder, unspecified; Z87.19 Personal history of other diseases of the digestive system; Z79.899 Other long term (current) drug therapy; F17.200 Nicotine dependence, unspecified, uncomplicated
CPT/HCPCS: 74177; 80053; 81001; 85025; 96361; 96374; 96375; 99283; J7030; Q9967; A4216

== ENCOUNTER 2019-07-22 10:35 | Emergency (ER) | payer MEDICARE, SELFPAY ==
[2019-07-22 10:35] VITALS: BP 168/101; PULSE 88; RESP 20; TEMP 37; O2SAT 97; BMI 36.3
--- NOTE | 2019-07-22 11:14 | CT_ITS ---
STUDY: CT ABDOMEN AND PELVIS WITH CONTRAST REASON FOR EXAM: Male, 29 years old. 3 day history of a abdominal pain and constipation. Patient has a history of Crohn's disease. RADIATION DOSAGE (If Supplied By Facility): CTDIvol = ( 33.72 ) mGy, DLP = ( 1991.50 ) mGycm TECHNIQUE: Transaxial images were obtained from the dome of the diaphragm to the symphysis pubis with oral contrast. IV/Oral Isovue 370 100Ml was administered. Sagittal and coronal images were reconstructed. Individualized dose optimization techniques were used for this CT. COMPARISON: Comparison is made with prior examination dated April 16, 2019. FINDINGS: The visualized lung bases are unremarkable. The visualized portions of the heart are within normal limits. There is decreased attenuation of the liver consistent with steatosis. Normal gallbladder and extrahepatic biliary system. Normal spleen. Normal pancreas. Normal bilateral adrenal glands. Normal right kidney. Normal left kidney. There is a small hiatal hernia. Normal small intestine. There are multiple colonic diverticula consistent with diverticulosis. Mild degree of inflammatory changes are seen in the peritoneal fat surrounding the mesenteric side of the sigmoid colon. This may represent early inflammatory change. The appendix is visualized and appears normal. Normal abdominal aorta. Normal inferior vena cava. There is borderline retroperitoneal lymphadenopathy with enlarged nodes no greater than 10mm in the short axis diameter. Normal urinary bladder. Normal abdominal wall. Normal osseous structures. CT/Abdomen/Pelvis WITH Contrast IMPRESSION: Mild degree inflammatory changes in the region of the sigmoid colon. Electronically Signed: Chaka Burciaga, at 13:29 EDT , Service support ,
[2019-07-22] MEDS: Ondansetron 4 MG/2 ML Vial IV (12:01)
[2019-07-22] MEDS: 0.9% Normal Saline 1,000 ML 125 ML IV (12:01)
[2019-07-22] MEDS: Morphine 4 MG/ML Syringe IV (12:02)
[2019-07-22 12:14] LABS: Absolute Lymphocyte Count 1.82 X10^3/uL (0.83-4.51); Absolute Neutrophil Count 7.5 X10^3/uL (2.0-7.7); Basophil# 0.03 X10^3/uL; Basophil% 0.3 % (0-1); Eosinophil# 0.29 X10^3/uL; Eosinophils% 2.8 % (0-5); Hematocrit 47.8 % (40-54); Hemoglobin 15.4 g/dL (13.0-16.5); Lymphocyte # 1.82 X10^3/ul (4.0); Lymphocyte % 17.6 % (19-41); Mean Corp Hgb Conc 32.2 g/dL (32-36); Mean Corpuscular Hgb 28.6 pg (27.0-32.0); Mean Corpuscular Volume 88.7 fL (80-94); Mean Platelet Vol. 10.9 fl (6.2-12.0); Monocyte# 0.62 X10^3/uL; NRBC Flagged by Analyzer 0 % (0-5); Neutrophil % 72.7 % (47-70); Platelet Count 250 K/mm3 (150-450); RBC Distribution Width CV 13.4 % (11.6-14.6); RBC Distribution Width SD 43.8 fl (35.1-43.9); Red Blood Count 5.39 M/mm3 (4.6-6.2); White Blood Count 10.3 K/mm3 (4.4-11.0)
[2019-07-22 12:15] VITALS: BP 152/97; PULSE 60; RESP 14; O2SAT 97
[2019-07-22 12:28] LABS: AST(SGOT) 20 U/L (15-37); Alanine Aminotransfer ALT/SGPT 54 U/L (16-61); Albumin, Serum 3.8 g/dL (3.2-5.0); Alkaline Phosphatase 86 U/L (45-117); Anion Gap 6 (5-15); BUN 12 mg/dL (7-18); BUN/Creat Ratio 14.3 RATIO (10-20); Calcium,Total 8.9 mg/dL (8.5-10.1); Chloride 106 mmol/L (98-107); Creatinine, Serum 0.84 mg/dL (0.70-1.30); EST Glomerular Filtration Rate 115 mL/min (>60); Est Glom Filt Rate - Afr Amer 139 mL/min (>60); Estimated Creatinine Clearance 142.42 ml/min; Globulin 3.9 g/dL (2.2-4.2); Glucose 97 mg/dL (74-106); Potassium 3.7 mmol/L (3.5-5.1); Protein, Total 7.7 g/dL (6.4-8.2); Sodium Level 138 mmol/L (136-145)
[2019-07-22 12:49] LABS: Lactic Acid 1.6 mmol/L (0.4-2.0)
[2019-07-22 12:55] VITALS: BP 132/90; PULSE 51; RESP 16; O2SAT 97
[2019-07-22 12:58] LABS: Bacteria 0 SEEN /hpf (None Seen); Mucous, Urine 0 SEEN /hpf (<or=2+); Red Blood Cells-Urine 0 SEEN /hpf (0-5); Squamous Epithelial Cells - UA 0 SEEN /hpf (0-5); White Blood Cells 0 SEEN /hpf (0-5)
[2019-07-22 13:07] LABS: Color, Urine Yellow (Yellow); Glucose, Dipstick Normal (Normal); Ketone-Dipstick Negative (Negative); Leukocyte Esterase-Dipstick Negative /ul (Negative); Nitrite-Dipstick Negative (Negative); Occult Blood-Urine Negative /ul (Negative); Protein-Dipstick 15 mg/dl (Negative); Urine Bilirubin Dipstick Negative (Negative); Urine Clarity Clear (Clear); Urine Urobilinogen Normal (Normal)
--- NOTE | 2019-07-22 13:48 | ED.VISSUMM ---
- ER Visit Summary Date of Service: 07/22/19 Chief Complaint: [Abdominal pain] History of Present Illness: The patient is a 29 M [presents to the emergency department with complaint of abdominal pain that started about a week ago. Patient's had nausea but no vomiting. Patient states he has not had a bowel movement in 3 days. Patient's been using MiraLAX and Ex-Lax at home. Patient said some mild dysuria but no frequency or urgency. Patient has history of Crohn's disease as well as history of diverticulitis. Patient has history of GERD as well as PTSD and bipolar disorder. Patient tells me he has had fever at home up to 102. He denies any chills or sweats.] Physical Examination: [HEENT-PERRLA, EOMI. Cranial nerves II through XII grossly intact. TMs clear. Mucous membranes moist. No adenopathy. Cardiovascular-regular rate and rhythm without murmur or ectopy Lungs-clear to auscultation, chest wall stable without crepitus or subcu emphysema Abdomen-normoactive bowel sounds, soft. Patient has some tenderness diffusely over the lower abdomen over the right lower quadrant as well as the suprapubic region and left lower quadrant. There is no rebound, rigidity, or perineal signs. No tenderness over the right upper quadrant. Extremities-intact ?4, normal range of motion, normal pulses, atraumatic] Test Results: [CBC with differential obtained was normal. Chemistries normal. LFTs normal. Urinalysis normal. CT scan of the abdomen pelvis with IV and p.o. contrast showed mild inflammatory changes of the left sigmoid colon.] Emergency Department Course and Treatment: [Patient initially was medicated with morphine and Zofran. Patient was started on Cipro and Flagyl p.o.] Treatment Plan: [Patient will be treated with Cipro and Flagyl for home as well as a few [place] for pain. Patient advised to follow-up with his director zone within next 3 to 5 days. Patient to return if fever, worsening pain, bloody stools, or conditions worsen anyway. Regarding the constipation issues recommended trying fruit juices first and if that does not help to try magnesium citrate.] Disposition: [Discharged home in stable condition.] Impression: [Abdominal pain ] Constipation Acute early diverticulitis This note was generated with [employer] software. It may contain incorrect words, spelling, and punctuation that were not noted in review of the chart prior to signing ED Disposition - Plan for ED Patient: Referrals: Hudson Frazier DO [Primary Care Provider] -
--- NOTE | 2019-07-22 13:51 | ED.DEP ---
ED Disposition - Plan for ED Patient: Instructions: CONSTIPATION (Adult), Diverticulitis Prescriptions: Ciprofloxacin [Cipro] 500 mg PO BID #20 tab Prescription Printed metroNIDAZOLE [Flagyl] 500 mg PO Q8H #30 tab Prescription Printed Hydrocodone Bitart/Apap 5-325 [[place] 5MG-325MG] 1 tab PO Q4H PRN PRN 2 Days #10 tab PRN Reason: Pain Prescription Printed Referrals: Hudson Frazier DO [Primary Care Provider] - Additional Instructions: see your guest relations coordinator in 3-5 days
[2019-07-22 14:15] VITALS: PULSE 58; RESP 16; O2SAT 98
== END 2019-07-22 14:16 | disposition home or self-care (01) ==
PROVIDERS: Emergency Provider Emergency Medicine; Family Provider Family Medicine; PCP Family Medicine
DX: R10.9 Unspecified abdominal pain (principal); K59.00 Constipation, unspecified; K57.92 Diverticulitis of intestine, part unspecified, without perforation or abscess without bleeding; K50.90 Crohn's disease, unspecified, without complications; K21.9 Gastro-esophageal reflux disease without esophagitis; F31.9 Bipolar disorder, unspecified; F43.10 Post-traumatic stress disorder, unspecified; Z72.0 Tobacco use
CPT/HCPCS: 74177; 80053; 81001; 83605; 85025; 96361; 96374; 96375; 99284; J7030; Q9967; A4216; J2405

== ENCOUNTER 2019-07-24 02:36 | Emergency (ER) | payer MEDICARE, SELFPAY ==
[2019-07-24 02:37] VITALS: BP 206/136; PULSE 90; RESP 18; TEMP 36.7; O2SAT 97; BMI 39.5
--- NOTE | 2019-07-24 02:57 | CT_ITS ---
We are attempting to reach an attending provider to discuss findings. An addendum with communication details will be sent when the communication is complete. STUDY: CT ABDOMEN AND PELVIS WITH CONTRAST REASON FOR EXAM: Male, 29 years old. Abdominal pain, nausea. Elevated WBC and hypertension. Evaluate for perforation. History of Crohn's disease, COPD and hypertension. RADIATION DOSAGE (If Supplied By Facility): CTDIvol = ( 13.75 ) mGy, DLP = ( 1385.03 ) mGycm TECHNIQUE: Transaxial images were obtained from the dome of the diaphragm to the symphysis pubis with oral contrast. Oral and amp; IV Gastrografin and amp; 100mL Isovue-300 100ML was administered. Sagittal and coronal images were reconstructed. Individualized dose optimization techniques were used for this CT. COMPARISON: None. FINDINGS: The visualized lung bases are unremarkable. The visualized portions of the heart are within normal limits. Normal liver. Normal gallbladder and extrahepatic biliary system. Normal spleen. Normal pancreas. Normal bilateral adrenal glands. Normal right kidney. Normal left kidney. Normal visualized stomach. Normal small intestine. There is thickening of the wall of the anterior aspect of the sigmoid colon where there are a few diverticuli. There is mild surrounding inflammatory change involving the peritoneal fat with mild free fluid in the pelvis. There are several areas of punctate air at this level located outside the bowel suggestive of microperforation. There is a small focal fluid collection with internal air identified just above the urinary bladder measuring approximately 1.5 x 1.0 cm x 2.4 cm could represent a small early abscess. The appendix is visualized and appears normal. Normal abdominal aorta. Normal inferior vena cava. Normal retroperitoneum. Normal urinary bladder. Normal visualized prostate gland. Normal abdominal wall. Degenerative disease of the lower thoracic spine is seen. The lumbar spine is normal. CT/Abdomen/Pelvis WITH Contrast IMPRESSION: Findings compatible with microperforation. Early abscess, otherwise no drainable abscess due to small size noted just above the urinary bladder and along the anterior sigmoid. These findings are likely related to sigmoid diverticulitis given thickening of sigmoid colon with diverticulosis at this level. Clinical correlation recommended. Electronically Signed: Dalia Ashley MD at 5:14 EDT , Service support ,
--- NOTE | 2019-07-24 02:58 | ED.DCSUM_ITS ---
History of Present Illness Chief Complaint: Abd Pain Narrative: Patient is a 29-year-old male who presents with abdominal pain. He has a history of Crohn's disease. Last year he had multiple hospitalizations. He was diagnosed with an intra-abdominal fluid collection initially thought to be abscess. Drainage was attempted but unsuccessful. He was ultimately diagnosed with Crohn's disease. They were considering Humira but he was found to have latent hepatitis B so this was contraindicated. He is on Entocort. He has had multiple ER visits here as well. 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 Patient does note that he has been told this but never had any further definitive evaluation such as cystoscopy. He began to have increased lower and left lower quadrant abdominal pain week ago. He was seen 2 days ago in the emergency department and had laboratory studies and CT imaging which showed possible diverticulitis. He was started on Cipro and Flagyl. His symptoms have worsened since that time particularly over the last 12 hours. He describes the pain as sharp and wavelike, waxing and waning and radiating up through the abdomen. He also complains of alternating intermittent diarrhea and constipation. He also complains of dysuria which is a new symptom. No fevers. He states he has been nauseated for the last day and a couple of days ago did have a couple episodes of emesis. 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 Past Medical History - Allergies and Home Meds Allergies/Adverse Reactions: Allergies dextromethorphan HBr [From NyQuil] Allergy (Verified 07/24/19 02:41) Anaphylaxis doxylamine [From NyQuil] Allergy (Verified 07/24/19 02:41) Anaphylaxis poison mimi extract [Poison Mimi Extract] Allergy (Verified 07/24/19 02:41) Anaphylaxis pseudoephedrine HCl [From NyQuil] Allergy (Verified 07/24/19 02:41) Anaphylaxis venom-honey bee [bee venom (honey bee)] Allergy (Verified 07/24/19 02:41) Anaphylaxis MUSHROOMS Allergy (Uncoded 07/24/19 02:41) Anaphylaxis Primary Care Physician: Hudson Frazier DO [Primary Care Provider] - Past Medical History: - - Crohn's disease, diverticulitis Surgical History: no surgical history, - - testicular surgery on cyst--nonresectable., left foot Smoking Status: Current every day smoker - Family History Paternal Family History: Family History (Last Updated 11/04/18 @ 07:58 by Ruiz Elaine DO) Other Ulcerative colitis Family History: Reports: Heart Disease, - - murdered Maternal Family History: Family History (Last Updated 11/04/18 @ 07:58 by Ruiz Elaine DO) Other Ulcerative colitis Family History: Reports: No pertinent history Review of Systems All systems negative except as indicated General: Denies: Fever Cardiovascular: Denies: Chest pain Respiratory: Denies: Dyspnea Gastrointestinal: Reports: Abdominal pain, Nausea, Vomiting, Diarrhea, Constipation Genitourinary: Reports: Dysuria Skin: Denies: Rash Neurological: Denies: Headache Physical Exam Vital Signs/Narrative: Vital Signs Temp Pulse Resp BP Pulse Ox 07/24/19 02:37 98.0 F 90 18 206/136 H 97 Inital Vital Signs reviewed: Yes General: Obese, Acute Distress Head: Normocephalic, Atraumatic Eyes: EOMI ENT: Moist mucous membranes Neck: Supple Cardiovascular: Regular rate, Regular rhythm Respiratory: No distress, CTA bilaterally Abdomen: Soft, Tender - Suprapubic and left lower quadrant abdominal tenderness without guarding without rebound Extremities: Nontender Skin: Normal color Neurological: Alert Psychological: Tearful, - - Anxious Diagnostic/Tx/Re-eval Impressions Abdomen/Pelvis CT 07/24/19 02:57 IMPRESSION: Findings compatible with microperforation. Early abscess, otherwise no drainable abscess due to small size noted just above the urinary bladder and along the anterior sigmoid. These findings are likely related to sigmoid diverticulitis given thickening of sigmoid colon with diverticulosis at this level. Clinical correlation recommended. Electronically Signed: Dalia Ashley MD at 5:14 EDT , Service support , 07/24/19 02:57 Abdomen/Pelvis WITH Contrast [CT] Stat Laboratory Results 07/24/19 07/24/19 07/24/19 02:50 02:50 03:10 WBC 11.8 H RBC 5.46 Hgb 16.0 Hct 48.2 MCV 88.3 MCH 29.3 MCHC 33.2 RDW Std Deviation 42.6 RDW Coeff of Bre 13.2 Plt Count 283 MPV 10.9 Immature Gran % (Auto) 0.500 Neut % (Auto) 72.5 H Lymph % (Auto) 19.5 [place] % (Auto) 5.7 Eos % (Auto) 1.5 Baso % (Auto) 0.3 Absolute Neuts (auto) 8.6 H Absolute Lymphs (auto) 2.30 Nucleated RBC % 0 Sodium 139 Potassium 3.6 Chloride 104 Carbon Dioxide 27.0 Anion Gap 8 BUN 10 Creatinine 0.92 Estim Creat Clear Calc 130.04 Est GFR (MDRD) Af Amer 125 Est GFR (MDRD) Non-Af 104 BUN/Creatinine Ratio 10.9 Glucose 100 Calcium 9.4 Urine Color Yellow Urine Clarity Sl. Cloudy Urine pH 7.0 Ur Specific [place] 1.005 Urine Protein Negative Urine Glucose (UA) Normal Urine Ketones Negative Urine Occult Blood Negative Urine Nitrite Negative Urine Bilirubin Negative Urine Urobilinogen Normal Ur Leukocyte Esterase Negative Urine RBC 0 SEEN Urine WBC 0 SEEN Ur Squamous Epith Cells 0-5 SEEN Amorphous Sediment RARE Urine Bacteria RARE Urine Mucus RARE - Medical Decision Making Patient was treated with IV fluids, Dilaudid, Zofran. He did have improvement of pain but continued to complain of pain and was given a second dose of IV Dilaudid. Labs are notable for mild leukocytosis. Given recent diagnosis of diverticulitis with worsening of symptoms a CT was obtained to evaluate for complication. This does show evidence of a microperforation with a small abscess. He was given IV Zosyn. Given his prior history including known history of Crohn's disease I felt he would best be served by transfer back to the facility with his vp marketing services and skin. Patient transferred to [facility]. ED Disposition - Plan for ED Patient: Disposition: [facility] Diagnosis: Diverticulitis of large intestine with abscess Referrals: Hudson Frazier DO [Primary Care Provider] -
[2019-07-24 03:04] LABS: Absolute Neutrophil Count 8.6 X10^3/uL (2.0-7.7); Basophil# 0.03 X10^3/uL; Basophil% 0.3 % (0-1); Eosinophil# 0.18 X10^3/uL; Eosinophils% 1.5 % (0-5); Hematocrit 48.2 % (40-54); Lymphocyte % 19.5 % (19-41); Mean Corp Hgb Conc 33.2 g/dL (32-36); Mean Corpuscular Hgb 29.3 pg (27.0-32.0); Mean Corpuscular Volume 88.3 fL (80-94); Mean Platelet Vol. 10.9 fl (6.2-12.0); Monocyte# 0.67 X10^3/uL; Monocyte% 5.7 % (0-10); NRBC Flagged by Analyzer 0 % (0-5); Neutrophil # 8.58 X10^3/uL (2.7-7.7); Neutrophil % 72.5 % (47-70); Platelet Count 283 K/mm3 (150-450); RBC Distribution Width CV 13.2 % (11.6-14.6); RBC Distribution Width SD 42.6 fl (35.1-43.9); Red Blood Count 5.46 M/mm3 (4.6-6.2); White Blood Count 11.8 K/mm3 (4.4-11.0)
[2019-07-24] MEDS: Ondansetron 4 MG/2 ML Vial IV (03:10)
[2019-07-24] MEDS: 0.9% Normal Saline 1,000 ML 1000 ML IV (03:10)
[2019-07-24] MEDS: HYDROmorphone 1 MG/ML Syringe IV (03:11)
[2019-07-24 03:13] VITALS: PULSE 75; RESP 16; O2SAT 97
[2019-07-24 03:14] LABS: Anion Gap 8 (5-15); BUN 10 mg/dL (7-18); BUN/Creat Ratio 10.9 RATIO (10-20); Calcium,Total 9.4 mg/dL (8.5-10.1); Chloride 104 mmol/L (98-107); Creatinine, Serum 0.92 mg/dL (0.70-1.30); EST Glomerular Filtration Rate 104 mL/min (>60); Est Glom Filt Rate - Afr Amer 125 mL/min (>60); Estimated Creatinine Clearance 130.04 ml/min; Glucose 100 mg/dL (74-106); Potassium 3.6 mmol/L (3.5-5.1); Sodium Level 139 mmol/L (136-145)
[2019-07-24 03:14] LABS: Red Blood Cells-Urine 0 SEEN /hpf (0-5); White Blood Cells 0 SEEN /hpf (0-5)
[2019-07-24 03:15] LABS: Color, Urine Yellow (Yellow); Glucose, Dipstick Normal (Normal); Ketone-Dipstick Negative (Negative); Leukocyte Esterase-Dipstick Negative /ul (Negative); Nitrite-Dipstick Negative (Negative); Occult Blood-Urine Negative /ul (Negative); Protein-Dipstick Negative (Negative); Specific Gravity, Urine 1.005 (1.002-1.030); Urine Bilirubin Dipstick Negative (Negative); Urine Clarity Sl. Cloudy (Clear); Urine Urobilinogen Normal (Normal)
[2019-07-24 03:22] LABS: Amorphous Sediment RARE; Bacteria RARE /hpf (None Seen); Mucous, Urine RARE /hpf (<or=2+); Squamous Epithelial Cells - UA 0-5 SEEN /hpf (0-5)
[2019-07-24 03:26] VITALS: BP 206/116
--- NOTE | 2019-07-24 04:04 | ED.RN ---
DR CAI AWARE OF SBP BEING IN THE 200'S.
[2019-07-24 05:21] VITALS: BP 140/77; PULSE 67; RESP 18; O2SAT 99
[2019-07-24] MEDS: HYDROmorphone 0.5 MG/0.5 ML SYRINGE IV (05:27)
[2019-07-24] MEDS: proMETHazine 25 MG/ML Syringe 12.5 MG IV (06:42)
[2019-07-24 07:37] VITALS: BP 146/80; PULSE 70; RESP 18; TEMP 36.7; O2SAT 99
== END 2019-07-24 08:07 | disposition short-term general hospital (02) ==
PROVIDERS: Emergency Provider Emergency Medicine; Family Provider Family Medicine; PCP Family Medicine
DX: K57.20 Diverticulitis of large intestine with perforation and abscess without bleeding (principal); K50.90 Crohn's disease, unspecified, without complications; K59.00 Constipation, unspecified; J44.9 Chronic obstructive pulmonary disease, unspecified; I10 Essential (primary) hypertension; F17.200 Nicotine dependence, unspecified, uncomplicated; Z82.49 Family history of ischemic heart disease and other diseases of the circulatory system
CPT/HCPCS: 74177; 80048; 81001; 85025; 99285; J7030; J7040; Q9967; A4216; J2405

== ENCOUNTER 2019-08-04 21:41 | Emergency (ER) | payer MEDICARE, SELFPAY ==
[2019-08-04 21:42] VITALS: BP 146/100; PULSE 104; RESP 16; TEMP 36.8; O2SAT 98; BMI 39.2
--- NOTE | 2019-08-04 22:07 | ED.VISSUMM ---
- ER Visit Summary Date of Service: 08/04/19 Chief Complaint: Abdominal pain History of Present Illness: The patient is a 29 M presenting with abdominal pain. He states this has been ongoing for the past week. He has had continuous diffuse abdominal pain. He was seen by his GI physician Dr. Cade today. He was recently admitted to [facility] with concern of diverticular abscess with perforation. He states he had an MRI performed at [facility] that showed no abscess. He was started on steroids and his last dose of steroids was July 31, 2019. He was then switched to Humira on August 01, 2019. He states that he saw his GI physician today and they advised him if the Humira is not helping he should present to the emergency department. Physical Examination: Vitals are stable. Patient is afebrile. Alert no acute distress. HEENT exam is unremarkable. Neck is supple. Lungs are clear and equal bilaterally. Heart is regular rate and rhythm. Abdomen is soft diffuse tenderness with no rebound or guarding Extremities are unremarkable. Skin is warm and dry. Remainder of exam is unremarkable. Emergency Department Course and Treatment: Patient was given morphine, Zofran IV. Labs and CT abdomen pelvis was ordered and are pending. Patient will be checked out to oncoming physician. Disposition: Pending Impression: Abdominal pain, history of Crohn's disease This note was generated with [employer] dictation software. It may contain incorrect words, spelling, and punctuation that were not noted in review of the chart prior to signing ED Disposition - Plan for ED Patient: Referrals: Hudson Frazier DO [Primary Care Provider] -
[2019-08-04] MEDS: Ondansetron 4 MG/2 ML Vial IV (22:18)
[2019-08-04] MEDS: Morphine 4 MG/ML Syringe IV (22:18)
[2019-08-04] MEDS: 0.9% Normal Saline 1,000 ML 1000 ML IV (22:19)
[2019-08-04 22:30] LABS: Absolute Lymphocyte Count 3.29 X10^3/uL (0.83-4.51); Absolute Neutrophil Count 7.7 X10^3/uL (2.0-7.7); Basophil# 0.06 X10^3/uL; Basophil% 0.5 % (0-1); Eosinophil# 0.31 X10^3/uL; Eosinophils% 2.5 % (0-5); Hematocrit 50.9 % (40-54); Hemoglobin 16.3 g/dL (13.0-16.5); Lymphocyte # 3.29 X10^3/ul (4.0); Lymphocyte % 26.8 % (19-41); Mean Corpuscular Hgb 29.3 pg (27.0-32.0); Mean Corpuscular Volume 91.4 fL (80-94); Mean Platelet Vol. 11.3 fl (6.2-12.0); Monocyte# 0.73 X10^3/uL; Monocyte% 5.9 % (0-10); NRBC Flagged by Analyzer 0 % (0-5); Neutrophil # 7.68 X10^3/uL (2.7-7.7); Neutrophil % 62.6 % (47-70); Platelet Count 274 K/mm3 (150-450); RBC Distribution Width CV 13.5 % (11.6-14.6); RBC Distribution Width SD 45.5 fl (35.1-43.9); Red Blood Count 5.57 M/mm3 (4.6-6.2); White Blood Count 12.3 K/mm3 (4.4-11.0)
[2019-08-04 22:54] LABS: ALB/GLOB Ratio 0.9 RATIO (0.9-2.4); AST(SGOT) 18 U/L (15-37); Alanine Aminotransfer ALT/SGPT 46 U/L (16-61); Albumin, Serum 3.9 g/dL (3.2-5.0); Alkaline Phosphatase 87 U/L (45-117); Anion Gap 7 (5-15); BUN 9 mg/dL (7-18); Calcium,Total 9.1 mg/dL (8.5-10.1); Chloride 106 mmol/L (98-107); EST Glomerular Filtration Rate 106 mL/min (>60); Est Glom Filt Rate - Afr Amer 128 mL/min (>60); Estimated Creatinine Clearance 132.93 ml/min; Globulin 4.2 g/dL (2.2-4.2); Glucose 140 mg/dL (74-106); Lipase 197 U/L (73-393); Potassium 4.1 mmol/L (3.5-5.1); Protein, Total 8.1 g/dL (6.4-8.2); Sodium Level 139 mmol/L (136-145)
[2019-08-04 23:42] VITALS: BP 145/98; PULSE 88; RESP 17; O2SAT 97
[2019-08-04 23:52] LABS: Bacteria 0 SEEN /hpf (None Seen); Color, Urine Yellow (Yellow); Glucose, Dipstick Normal (Normal); Ketone-Dipstick Negative (Negative); Leukocyte Esterase-Dipstick Negative /ul (Negative); Mucous, Urine 0 SEEN /hpf (<or=2+); Nitrite-Dipstick Negative (Negative); Occult Blood-Urine Negative /ul (Negative); Protein-Dipstick Negative (Negative); Red Blood Cells-Urine 0 SEEN /hpf (0-5); Squamous Epithelial Cells - UA 0 SEEN /hpf (0-5); Urine Bilirubin Dipstick Negative (Negative); Urine Clarity Clear (Clear); Urine Urobilinogen Normal (Normal); White Blood Cells 0 SEEN /hpf (0-5)
[2019-08-05] MEDS: Morphine 4 MG/ML Syringe IV (00:40)
[2019-08-05 01:00] VITALS: BP 152/92; PULSE 87; RESP 17; O2SAT 97
[2019-08-05] MEDS: HYDROmorphone 0.5 MG/0.5 ML SYRINGE IV (01:53)
[2019-08-05] MEDS: Ondansetron 4 MG/2 ML Vial IV (02:01)
--- NOTE | 2019-08-05 03:20 | ED.DCSUM_ITS ---
- ER Visit Summary Date of Service: 08/05/19 Chief Complaint: Abdominal pain History of Present Illness: The patient is a 29 M [] Physical Examination: [] Test Results: Clinical Impression(s) from Imaging Studies Abdomen/Pelvis CT 08/05/19 21:59 IMPRESSION: Sigmoid diverticulitis and possible sigmoid vesicle fistula. Electronically Signed: Isa Vela, at 0:51 EST Tel , Service support , Laboratory Data 08/04/19 08/04/19 08/04/19 22:15 22:15 23:45 WBC 12.3 H RBC 5.57 Hgb 16.3 Hct 50.9 MCV 91.4 MCH 29.3 MCHC 32.0 RDW Std Deviation 45.5 H RDW Coeff of Bre 13.5 Plt Count 274 MPV 11.3 Immature Gran % (Auto) 1.700 H Neut % (Auto) 62.6 Lymph % (Auto) 26.8 [place] % (Auto) 5.9 Eos % (Auto) 2.5 Baso % (Auto) 0.5 Absolute Neuts (auto) 7.7 Absolute Lymphs (auto) 3.29 Nucleated RBC % 0 Sodium 139 Potassium 4.1 Chloride 106 Carbon Dioxide 26.0 Anion Gap 7 BUN 9 Creatinine 0.90 Estim Creat Clear Calc 132.93 Est GFR (MDRD) Af Amer 128 Est GFR (MDRD) Non-Af 106 BUN/Creatinine Ratio 10.0 Glucose 140 H Calcium 9.1 Total Bilirubin 0.30 AST 18 ALT 46 Alkaline Phosphatase 87 Total Protein 8.1 Albumin 3.9 Globulin 4.2 Albumin/Globulin Ratio 0.9 Lipase 197 Urine Color Yellow Urine Clarity Clear Urine pH 6.0 Ur Specific [place] 1.010 Urine Protein Negative Urine Glucose (UA) Normal Urine Ketones Negative Urine Occult Blood Negative Urine Nitrite Negative Urine Bilirubin Negative Urine Urobilinogen Normal Ur Leukocyte Esterase Negative Urine RBC 0 SEEN Urine WBC 0 SEEN Ur Squamous Epith Cells 0 SEEN Urine Bacteria 0 SEEN Urine Mucus 0 SEEN Emergency Department Course and Treatment: Patient initially evaluated by Dr. Gamble. He received 4 mg of morphine as well as IV Zofran. Patient was signed out to me to follow CT reads. Patient was recently admitted and discharged for acute diverticulitis at [facility]. See Dr. Tye mcfarland for further HPI. CT of the abdomen pelvis again shows acute diverticulitis. This is consistent with patient's clinical presentation. He is immunosuppressed on Humira but does not have a significant leukocytosis or fever in the ER. He is given IV fluids. Patient requires additional pain control with another 4 mg of IV morphine and then 0.5 mg of IV Dilaudid. Discussed with GI on-call who agrees that admission back at [facility] would be the patient's best interest. He is given IV Zosyn per recommendation of GI. Patient accepted by Dr. Farley, hospitalist. Patient is agreeable with this plan but quite anxious about the situation. He is given 1 mg of IV Ativan prior to transfer. Patient is stable while in the emergency room. Treatment Plan: Pain control, antibiotics, transfer for GI evaluation and further treatment Disposition: Transfer to [facility] Impression: 1. Acute diverticulitis 2. History of Crohn's disease This note was generated with [email or web address] dictation software. It may contain incorrect words, spelling, and punctuation that were not noted in review of the chart prior to signing ED Disposition - Plan for ED Patient: Disposition: [facility] Diagnosis: Acute diverticulitis Referrals: Hudson Frazier DO [Primary Care Provider] -
[2019-08-05] MEDS: LORazepam 2 MG/ML Syringe 1 MG IV (03:51)
[2019-08-05 03:56] VITALS: BP 166/106; PULSE 81; RESP 17; O2SAT 97
--- NOTE | 2019-08-05 21:59 | CT_ITS ---
STUDY: CT ABDOMEN AND PELVIS WITH CONTRAST REASON FOR EXAM: Male, 29 years old. BDOMEN PAIN,ELEVATED WBC,PT STARTED HUMIRA,CONSTIPATION HX:CROHN'S,DIVERTICULITIS,IBS,GERD,HEPATITIS B,KIDNEY STONES RADIATION DOSAGE (If Supplied By Facility): CTDIvol = ( 23.73 ) mGy, DLP = ( 1367.80 ) mGycm TECHNIQUE: Transaxial images were obtained from the dome of the diaphragm to the symphysis pubis without oral contrast. Oral and amp; IV Gastrografin and amp; 100mL Isovue-300 100ML was administered. Sagittal and coronal images were reconstructed. Individualized dose optimization techniques were used for this CT. COMPARISON: None. FINDINGS: The visualized lung bases are unremarkable. The visualized portions of the heart are within normal limits. Normal liver. Normal gallbladder and extrahepatic biliary system. Normal spleen. Normal pancreas. Normal bilateral adrenal glands. Normal right kidney. Normal left kidney. Normal visualized stomach. Normal small intestine. There is diverticulosis, with thickening of the sigmoid colon wall, and pericolonic inflammation changes consistent with acute diverticulitis. There is possible sigmoid vesicle fistula. The appendix is visualized and appears normal. Normal abdominal aorta. Normal inferior vena cava. Normal retroperitoneum. Normal urinary bladder. Normal abdominal wall. Normal osseous structures. 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 Electronically Signed: Isa Vela, at 0:51 EST Tel , Service support ,
== END 2019-08-05 04:38 | disposition short-term general hospital (02) ==
PROVIDERS: Emergency Provider Emergency Medicine; Family Provider Family Medicine; PCP Family Medicine
DX: K57.32 Diverticulitis of large intestine without perforation or abscess without bleeding (principal); K50.90 Crohn's disease, unspecified, without complications; K59.00 Constipation, unspecified; Z72.0 Tobacco use
CPT/HCPCS: 74177; 80053; 81001; 83690; 85025; 96361; 96365; 96375; 96376; 99283; J7040; Q9967; A4216; J2405

== ENCOUNTER 2019-08-12 21:42 | Emergency (ER) | payer MEDICARE, SELFPAY ==
[2019-08-12 21:44] VITALS: BP 165/81; PULSE 90; RESP 16; TEMP 36.5; O2SAT 98; BMI 38.5
[2019-08-12 22:19] LABS: Bacteria 0 SEEN /hpf (None Seen); Mucous, Urine 0 SEEN /hpf (<or=2+); Red Blood Cells-Urine 0 SEEN /hpf (0-5); Squamous Epithelial Cells - UA 0 SEEN /hpf (0-5); White Blood Cells 0 SEEN /hpf (0-5)
[2019-08-12 22:20] LABS: Color, Urine Yellow (Yellow); Glucose, Dipstick Normal (Normal); Ketone-Dipstick Negative (Negative); Leukocyte Esterase-Dipstick 25 /ul (Negative); Nitrite-Dipstick Negative (Negative); Occult Blood-Urine 10 /ul (Negative); Protein-Dipstick Negative (Negative); Urine Bilirubin Dipstick Negative (Negative); Urine Clarity Clear (Clear); Urine Urobilinogen Normal (Normal)
--- NOTE | 2019-08-12 22:53 | ED.DCSUM_ITS ---
History of Present Illness Chief Complaint: Abd Pain Informant: Patient Narrative: Patient stated he was worried about his urine. He noted that he had intermittent darker color to it. 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 However the patient stated he is never had a bladder scope for the diagnosis. He stated it is been seen on imaging. He was just discharged 5 days ago and is on Humira, Cipro, Flagyl, prednisone. The patient denies any new pains at this time. He has chronic pains. He had diverticulitis and colitis. He denies any fevers or chills. He was concerned about his urine and the possibility of urinating stool. 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 [place] - Past Medical History (1) Abscess of sigmoid colon Status: Acute (2) Colonic diverticular abscess Status: Acute (3) Hypokalemia Status: Acute (4) Bipolar disorder Status: Chronic (5) Crohn's disease Status: Chronic (6) Diverticulitis Status: Chronic (7) GERD (gastroesophageal reflux disease) Status: Chronic (8) Hemorrhoids Status: Chronic (9) IBS (irritable bowel syndrome) Status: Chronic (10) Obesity Status: Chronic (11) PTSD (post-traumatic stress disorder) Status: Chronic (12) Tobacco dependence Status: Chronic Past Medical History - Allergies and Home Meds Allergies/Adverse Reactions: Allergies dextromethorphan HBr [From NyQuil] Allergy (Verified 08/12/19 21:47) Anaphylaxis doxylamine [From NyQuil] Allergy (Verified 08/12/19 21:47) Anaphylaxis poison mimi extract [Poison Mimi Extract] Allergy (Verified 08/12/19 21:47) Anaphylaxis pseudoephedrine HCl [From NyQuil] Allergy (Verified 08/12/19 21:47) Anaphylaxis venom-honey bee [bee venom (honey bee)] Allergy (Verified 08/12/19 21:47) Anaphylaxis MUSHROOMS Allergy (Uncoded 08/12/19 21:47) Anaphylaxis Primary Care Physician: Hudson Frazier DO [Primary Care Provider] - Prior records reviewed: Yes Past Medical History: - - See problem list Surgical History: no surgical history, - - testicular surgery on cyst--nonresectable., left foot Lives: With Family Smoking Status: Current every day smoker Alcohol: None Drugs: None - Family History Paternal Family History: Family History (Last Updated 11/04/18 @ 07:58 by Ruiz Elaine DO) Other Ulcerative colitis Family History: Reports: Heart Disease, - - murdered Maternal Family History: Family History (Last Updated 11/04/18 @ 07:58 by Ruiz Elaine DO) Other Ulcerative colitis Family History: Reports: No pertinent history Review of Systems General: Denies: Chills, Fever, Sweats Eyes: Denies: Visual changes - bilaterally, Diplopia ENT: Denies: Rhinorrhea, Sore throat Cardiovascular: Denies: Chest pain, Palpitations Respiratory: Denies: Dyspnea, Cough, Dyspnea on exertion Gastrointestinal: Reports: Abdominal pain - Chronic. Denies: Nausea, Vomiting, Diarrhea, Melena, Hematochezia Genitourinary: Reports: - - See HPI. Denies: Dysuria, Hematuria, Frequency Musculoskeletal: Denies: Back pain, Extremity Pain Skin: Denies: Rash, Wounds Neurological: Denies: Headache, Weakness, Numbness Physical Exam Vital Signs/Narrative: Vital Signs Temp Pulse Resp BP Pulse Ox 08/12/19 21:44 97.7 F L 90 16 165/81 H 98 General: Well nourished, Well developed, No Acute Distress Head: Normocephalic, Atraumatic Eyes: [place], EOMI ENT: Moist mucous membranes, No rhinorrhea Neck: Supple, Nontender Cardiovascular: Regular rate, Regular rhythm, No murmurs Respiratory: No distress, CTA bilaterally, Chest nontender Abdomen: Soft, Nontender, Nondistended, Normal bowel sounds Back: Nontender, Normal Inspection Extremities: Nontender, No edema Skin: Normal color, No rash Neurological: Alert, Oriented x3, Cranial nerves II-XII grossly intact, Normal Strength, Normal Sensation Psychological: Normal affect, Normal Mood Diagnostic/Tx/Re-eval - Medical Decision Making Patient's urinalysis shows no evidence of infection or abnormality. No white cells. I do not suspect he actually has a long no vesicular fistula. I would suspect he would have a significant amount of stool in his urine. Appears nice and clear. He will follow-up as an outpatient. He is reassured and happy to hear that. ED Disposition - Plan for ED Patient: Disposition: Home or Assisted Living Diagnosis: Dark urine Instructions: Diverticulitis Referrals: Hudson Frazier DO [Primary Care Provider] -
[2019-08-12 23:01] VITALS: RESP 18
== END 2019-08-12 23:08 | disposition home or self-care (01) ==
PROVIDERS: Emergency Provider Emergency Medicine; Family Provider Family Medicine; PCP Family Medicine
DX: K57.92 Diverticulitis of intestine, part unspecified, without perforation or abscess without bleeding (principal); F17.200 Nicotine dependence, unspecified, uncomplicated; Z82.49 Family history of ischemic heart disease and other diseases of the circulatory system; F31.9 Bipolar disorder, unspecified; F43.10 Post-traumatic stress disorder, unspecified; K21.9 Gastro-esophageal reflux disease without esophagitis; G89.29 Other chronic pain; K50.90 Crohn's disease, unspecified, without complications; E66.9 Obesity, unspecified
CPT/HCPCS: 81001; 99282

== ENCOUNTER 2019-09-25 14:42 | Emergency (ER) | payer MEDICARE, SELFPAY ==
[2019-09-25 14:43] VITALS: BP 156/98; PULSE 85; RESP 24; TEMP 36.6; O2SAT 100; BMI 38.1
--- NOTE | 2019-09-25 15:06 | CT_ITS ---
STUDY: CT ABDOMEN AND PELVIS WITH CONTRAST REASON FOR EXAM: Male, 29 years old. Abdominal pain RADIATION DOSAGE (If Supplied By Facility): CTDIvol = ( 15.42 ) mGy, DLP = ( 1303.58 ) mGycm TECHNIQUE: CT images were obtained from the dome of the diaphragm to the symphysis pubis without oral contrast. Oral and amp; IV Gastrografin and amp; 100mL Isovue-300 was administered. Sagittal and coronal images were reconstructed. Individualized dose optimization techniques were used for this CT. COMPARISON: 05 August 2019, 24 July 2019, June FINDINGS: The visualized lung bases are unremarkable. The visualized portions of the heart are within normal limits. The liver is fatty infiltrated without focal lesions, biliary dilation or cirrhosis.. Normal gallbladder and extrahepatic biliary system. Normal spleen. Normal pancreas. Normal bilateral adrenal glands. Normal right kidney. Normal left kidney. There is no intestinal obstruction. Appendix is normal. There is mild inflammatory change surrounding the mid sigmoid. There is irregular bubbles of gas connecting the sigmoid to the urinary bladder which has an adjacent wall thickening, presumably colovesical fistula. There is no organized abscess. Appearance is similar to prior. Normal abdominal aorta. Normal inferior vena cava. BMI is elevated. There is mixed intra-abdominal lipomatosis. Normal urinary bladder. Normal abdominal wall. Normal osseous structures. CT/Abdomen/Pelvis WITH Contrast IMPRESSION: 1. No change since prior. 2. 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 Electronically Signed: Madina Perkins, at 17:33 EST Tel , Service support ,
--- NOTE | 2019-09-25 15:08 | ED.DCSUM_ITS ---
- ER Visit Summary Date of Service: 09/25/19 Chief Complaint: [Abdominal pain] History of Present Illness: The patient is a 29 M [presents the emergency department complaint of abdominal pain is started 2 days ago. Patient states that he is got continuous pain that he rates as severe. She had some mild na usea but no vomiting. He denies any fevers. He denies urinary symptoms. He denies any blood in stool or black tarry stool. He denies diarrhea. Patient does have history of Crohn's and takes Humira which he recently took. 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 Patient states he typically will get a flareup about every 2 months or so. Patient describes the pain is lower abdomen and right lower quadrant. Patient very tearful in room.] Physical Examination: [HEENT-PERRLA, EOMI. Cranial nerves II through XII grossly intact. TMs clear. Mucous membranes moist. No adenopathy. Cardiovascular-regular rate and rhythm without murmur or ectopy Lungs-clear to auscultation, chest wall stable without crepitus or subcu emphysema Abdomen-normoactive bowel sounds, soft. Patient has tenderness palpation over right lower quadrant suprapubic region with some guarding. There is no rebound, rigidity, or perineal signs. Extremities-intact ?4, normal range of motion, normal pulses, atraumatic] Test Results: [CBC with differential is normal. Chemistries normal. LFTs normal. Urinalysis normal. CT scan of the abdomen pelvis with IV and p.o. contrast obtained was read by radiology as formation of the sigmoid: With questionable fistulous tract into the bladder however finding is identical to prior CT study.] Emergency Department Course and Treatment: [He was medicated with morphine and Zofran. Patient was given a second dose of morphine.] Treatment Plan: [Be given a prescription for few [place] for pain. Patient is advised to follow-up with his roofing contractor as well as his IBD surgeon. Patient states that he has been evaluated multiple times by surgeons at [facility] and he does not want to undergo any type of surgeries at this point. I feel the findings on his CT scan are all chronic.] Disposition: [Discharged home in stable condition] Impression: [Abdominal pain-acute on chronic] This note was generated with [employer] software. It may contain incorrect words, spelling, and punctuation that were not noted in review of the chart prior to signing ED Disposition - Plan for ED Patient: Referrals: Hudson Frazier DO [Primary Care Provider] -
[2019-09-25] MEDS: 0.9% Normal Saline 1,000 ML 125 ML IV (15:49)
[2019-09-25] MEDS: Morphine 4 MG/ML Syringe IV ×2 (15:49→19:12)
[2019-09-25] MEDS: Ondansetron 4 MG/2 ML Vial IV (15:49)
[2019-09-25 15:55] LABS: Absolute Lymphocyte Count 2.09 X10^3/uL (0.83-4.51); Absolute Neutrophil Count 4.6 X10^3/uL (2.0-7.7); Basophil# 0.01 X10^3/uL; Basophil% 0.1 % (0-1); Eosinophil# 0.19 X10^3/uL; Eosinophils% 2.5 % (0-5); Hemoglobin 14.2 g/dL (13.0-16.5); Lymphocyte # 2.09 X10^3/ul (4.0); Lymphocyte % 27.7 % (19-41); Mean Corpuscular Hgb 28.5 pg (27.0-32.0); Mean Corpuscular Volume 86.3 fL (80-94); Mean Platelet Vol. 10.2 fl (6.2-12.0); Monocyte# 0.59 X10^3/uL; Monocyte% 7.8 % (0-10); NRBC Flagged by Analyzer 0 % (0-5); Neutrophil # 4.63 X10^3/uL (2.7-7.7); Neutrophil % 61.4 % (47-70); Platelet Count 250 K/mm3 (150-450); RBC Distribution Width CV 14.4 % (11.6-14.6); RBC Distribution Width SD 45.6 fl (35.1-43.9); Red Blood Count 4.98 M/mm3 (4.6-6.2); White Blood Count 7.6 K/mm3 (4.4-11.0)
[2019-09-25 16:53] LABS: ALB/GLOB Ratio 1.1 RATIO (0.9-2.4); AST(SGOT) 26 U/L (15-37); Alanine Aminotransfer ALT/SGPT 60 U/L (16-61); Albumin, Serum 3.9 g/dL (3.2-5.0); Alkaline Phosphatase 73 U/L (45-117); Anion Gap 7 (5-15); BUN 8 mg/dL (7-18); Calcium,Total 9.1 mg/dL (8.5-10.1); Chloride 109 mmol/L (98-107); Creatinine, Serum 0.89 mg/dL (0.70-1.30); EST Glomerular Filtration Rate 107 mL/min (>60); Est Glom Filt Rate - Afr Amer 130 mL/min (>60); Estimated Creatinine Clearance 134.42 ml/min; Globulin 3.6 g/dL (2.2-4.2); Glucose 85 mg/dL (74-106); Potassium 3.8 mmol/L (3.5-5.1); Protein, Total 7.5 g/dL (6.4-8.2); Sodium Level 141 mmol/L (136-145)
[2019-09-25 18:59] LABS: Bacteria 0 SEEN /hpf (None Seen); Mucous, Urine 0 SEEN /hpf (<or=2+); Red Blood Cells-Urine 0 SEEN /hpf (0-5); Squamous Epithelial Cells - UA 0 SEEN /hpf (0-5); White Blood Cells 0 SEEN /hpf (0-5)
[2019-09-25 19:00] LABS: Color, Urine Yellow (Yellow); Glucose, Dipstick Normal (Normal); Ketone-Dipstick Negative (Negative); Leukocyte Esterase-Dipstick Negative /ul (Negative); Nitrite-Dipstick Negative (Negative); Occult Blood-Urine Negative /ul (Negative); Protein-Dipstick Negative (Negative); Urine Bilirubin Dipstick Negative (Negative); Urine Clarity Clear (Clear); Urine Urobilinogen Normal (Normal)
[2019-09-25 19:17] VITALS: BP 139/78; PULSE 60; RESP 16; O2SAT 97
--- NOTE | 2019-09-25 19:21 | ED.DEP ---
ED Disposition - Plan for ED Patient: Instructions: Crohn's Disease Prescriptions: Hydrocodone Bitart/Apap 5-325 [[place] 5MG-325MG] 1 tab PO Q4H PRN PRN 2 Days #14 tab PRN Reason: Pain Prescription Printed Referrals: Hudson Frazier DO [Primary Care Provider] - 3-5 Days Additional Instructions: see your GI specialist and IBD Surgeon
--- NOTE | 2019-09-25 19:23 | ED.DEP ---
ED Disposition - Plan for ED Patient: Instructions: Crohn's Disease Prescriptions: Hydrocodone Bitart/Apap 5-325 [[place] 5MG-325MG] 1 tab PO Q4H PRN PRN 2 Days #14 tab PRN Reason: Pain Prescription Printed Referrals: Hudson Frazier DO [Primary Care Provider] - 3-5 Days Additional Instructions: see your GI specialist and IBD Surgeon
[2019-09-25 19:35] VITALS: BP 150/78; PULSE 70; RESP 15; O2SAT 97
== END 2019-09-25 19:36 | disposition home or self-care (01) ==
LOC: ED 15:12
PROVIDERS: Emergency Provider Emergency Medicine; Family Provider Family Medicine; PCP Family Medicine
DX: K50.90 Crohn's disease, unspecified, without complications (principal); R10.31 Right lower quadrant pain; G89.29 Other chronic pain; Z79.899 Other long term (current) drug therapy; Z72.0 Tobacco use
CPT/HCPCS: 74177; 80053; 81001; 85025; 96361; 96374; 96375; 96376; 99285; Q9967; J2405

== ENCOUNTER 2019-11-23 03:50 | Emergency (ER) | payer MEDICARE, SELFPAY ==
[2019-11-23 03:51] VITALS: BP 139/91; PULSE 95; RESP 22; TEMP 36.4; O2SAT 100; BMI 38.1
--- NOTE | 2019-11-23 04:22 | CT_ITS ---
STUDY: CT ABDOMEN AND PELVIS WITHOUT CONTRAST REASON FOR EXAM: Male, 29 years old. Lower abdominal pain. Burning urination. History of Crohn''s disease and irritable bowel syndrome, burning urination. RADIATION DOSAGE (If Supplied By Facility): CTDIvol = ( 18.74 ) mGy, DLP = ( 1379.43 ) mGycm TECHNIQUE: Transaxial images were obtained from the dome of the diaphragm to the symphysis pubis without oral contrast, and without intravenous contrast. Sagittal and coronal images were reconstructed. Individualized dose optimization techniques were used for this CT. COMPARISON: September 25, 2019. FINDINGS: The visualized lung bases are unremarkable. The visualized portions of the heart are within normal limits. Normal liver. Normal gallbladder and extrahepatic biliary system. Normal spleen. Normal pancreas. Normal bilateral adrenal glands. Normal right kidney. Normal left kidney. Normal visualized stomach. Fluid-filled borderline dilated loops of proximal jejunum. Diverticulosis, bowel wall thickening and pericolonic inflammatory changes involving a 7 cm segment of the mid sigmoid colon, in the left lower quadrant compatible with acute diverticulitis. No evidence of perforation. The appendix is visualized and appears normal. Normal abdominal aorta. Normal inferior vena cava. Normal retroperitoneum. No intra-abdominal free air. Normal urinary bladder. No air within the bladder. Normal visualized prostate gland. Normal abdominal wall. Normal osseous structures. CT/Abdomen/Pelvis W IV Cont ONLY IMPRESSION: Acute sigmoid diverticulitis. No evidence of perforation. Possible developing adynamic ileus. Electronically Signed: Dalton Gallegos MD at 5:49 EST , Service support ,
[2019-11-23] MEDS: Morphine 4 MG/ML Syringe IV ×2 (04:30→06:21)
[2019-11-23] MEDS: 0.9% Normal Saline 1,000 ML 1000 ML IV (04:30)
[2019-11-23] MEDS: Ondansetron 4 MG/2 ML Vial IV (04:30)
--- NOTE | 2019-11-23 04:30 | ED.DCSUM_ITS ---
History of Present Illness Chief Complaint: Abd Pain Informant: Patient, Significant Other - Abdominal Pain/Flank Pain Onset: Hours - Almost 24 Context: Gradual Onset Timing: Continuous Quality: Aching Location: - - Lower abdomen, toward right lower quadrant Current Severity: Severe Maximum Severity: Severe Worsened by: Nothing Relieved by: Nothing - Nausea/Vomiting/Emesis GI Symptom: Nausea. Negative for: Vomiting - Diarrhea/Melena/Hematochezia GI Symptom: - - Unable to have a bowel movement since pain started. Negative for: Diarrhea, Hematochezia Associated Symptoms: Dysuria - Mild burning. Negative for: Frequency, Hematuria, Urgency Narrative: Patient has a history of Crohn's. This pain started yesterday morning. He felt like he needed to have a bowel movement but was unable to go. Pain was relatively mild. He went to lift weights at the gym thinking it might help him to have a bowel movement, but the pain progressively worsened and he has been unable to have a bowel movement since. Prior to this, he was having normal bowel movements without diarrhea or blood. He gets Humira injections for his Crohn's, he states he is a little late on his recent one, his last injection was about 1.5 weeks ago, so they called the doctor at the end of the week, but did not get a reply yet. Recent Illness/Hospitalization: No - Past Medical History (1) Bipolar disorder Status: Chronic (2) Intermittent explosive disorder Status: Chronic (3) Colonic diverticular abscess Status: Resolved (4) Bipolar disorder Status: Chronic (5) Crohn's disease Status: Chronic (6) GERD (gastroesophageal reflux disease) Status: Chronic (7) IBS (irritable bowel syndrome) Status: Chronic (8) PTSD (post-traumatic stress disorder) Status: Chronic Past Medical History - Allergies and Home Meds Allergies/Adverse Reactions: Allergies dextromethorphan HBr [From NyQuil] Allergy (Verified 11/23/19 03:51) Anaphylaxis doxylamine [From NyQuil] Allergy (Verified 11/23/19 03:51) Anaphylaxis poison mimi extract [Poison Mimi Extract] Allergy (Verified 11/23/19 03:51) Anaphylaxis pseudoephedrine HCl [From NyQuil] Allergy (Verified 11/23/19 03:51) Anaphylaxis venom-honey bee [bee venom (honey bee)] Allergy (Verified 11/23/19 03:51) Anaphylaxis MUSHROOMS Allergy (Uncoded 11/23/19 03:51) Anaphylaxis Primary Care Physician: Hudson Frazier DO [Primary Care Provider] - Surgical History: - - testicular surgery on cyst--nonresectable., left foot Lives: Spouse/ Significant Other Smoking Status: Current every day smoker - Family History Paternal Family History: Family History (Last Updated 11/04/18 @ 07:[address] Ruiz Elaine DO) Other Ulcerative colitis Family History: Reports: Heart Disease, - - murdered Maternal Family History: Family History (Last Updated 11/04/18 @ 07:[address] Ruiz Elaine DO) Other Ulcerative colitis Family History: Reports: No pertinent history Review of Systems General: Denies: Chills, Fever, Sweats Eyes: Denies: Visual changes - bilaterally, Diplopia ENT: Denies: Rhinorrhea, Sore throat Cardiovascular: Denies: Chest pain, Palpitations Respiratory: Denies: Dyspnea, Cough, Dyspnea on exertion Gastrointestinal: Reports: Abdominal pain, Nausea, Constipation. Denies: Vomiting, Diarrhea, Melena, Hematochezia Genitourinary: Reports: Dysuria. Denies: Hematuria, Frequency Musculoskeletal: Denies: Neck pain, Back pain, Swelling, Extremity Pain Skin: Denies: Rash, Wounds Neurological: Denies: Headache, Weakness, Numbness Physical Exam Vital Signs/Narrative: Vital Signs Temp Pulse Resp BP Pulse Ox 11/23/19 03:51 97.6 F L 95 22 H 139/91 H 100 Inital Vital Signs reviewed: Yes General: Well nourished, Well developed, Acute Distress - Painful. Head: Normocephalic, Atraumatic Eyes: Perrl, EOMI ENT: Moist mucous membranes, No rhinorrhea Neck: Supple, Nontender Cardiovascular: Regular rate, Regular rhythm, No murmurs Respiratory: No distress, CTA bilaterally, Chest nontender Abdomen: Soft, Nondistended, Normal bowel sounds, No masses, Tender - Severely tender suprapubic and toward the right of suprapubic toward the right lower quadrant. Otherwise nontender., Guarding - Voluntary. Negative for: Rebound tenderness Back: Nontender, Normal Inspection. Negative for: CVA tenderness Extremities: Nontender, No edema Skin: Normal color, No rash, No Trauma Neurological: Alert, Oriented x3, Cranial nerves II-XII grossly intact, Normal Strength, Normal Sensation Psychological: Tearful Diagnostic/Tx/Re-eval Impressions Abdomen/Pelvis CT 11/23/19 04:22 IMPRESSION: Acute sigmoid diverticulitis. No evidence of perforation. Possible developing adynamic ileus. Electronically Signed: Dalton Gallegos MD at 5:49 EST , Service support , 11/23/19 04:22 Abdomen/Pelvis W IV Cont ONLY [CT] Stat Laboratory Results 11/23/19 11/23/19 04:05 05:35 WBC 12.7 H RBC 5.07 Hgb 14.9 Hct 45.1 MCV 89.0 MCH 29.4 MCHC 33.0 RDW Std Deviation 42.5 RDW Coeff of Bre 13.1 Plt Count 277 MPV 10.2 Immature Gran % (Auto) 0.300 Neut % (Auto) 78.3 H Lymph % (Auto) 13.4 L [place] % (Auto) 5.7 Eos % (Auto) 2.1 Baso % (Auto) 0.2 Absolute Neuts (auto) 9.9 H Absolute Lymphs (auto) 1.70 Nucleated RBC % 0 Urine Color Yellow Urine Clarity Clear Urine pH 8.0 Ur Specific [place] 1.010 Urine Protein Negative Urine Glucose (UA) Normal Urine Ketones Negative Urine Occult Blood Negative Urine Nitrite Negative Urine Bilirubin Negative Urine Urobilinogen Normal Ur Leukocyte Esterase Negative Urine RBC 0 SEEN Urine WBC 0 SEEN Ur Squamous Epith Cells 0 SEEN Urine Bacteria 0 SEEN Urine Mucus 0 SEEN - Medical Decision Making CT with IV contrast was obtained and his pain was controlled with morphine. CT shows acute sigmoid diverticulitis without evidence of a perforation or abscess. Also noted to have a possible developing adynamic ileus. He has good bowel sounds. He was treated empirically with IV Cipro and Flagyl. He is feeling better after analgesics. I offered admission. He declines and prefers to go home with analgesics and antibiotics. ED Disposition - Plan for ED Patient: Disposition: Home or Assisted Living Diagnosis: Diverticulitis Instructions: Understanding Diverticulosis and Diverticulitis, Diverticulitis Prescriptions: Ciprofloxacin [Cipro] 500 mg PO BID #20 tab Transmission Status: Pending to [id number] [place] [Flagyl] 500 mg PO BID #20 tab Transmission Status: Pending to [facility] [id number] Oxycodone HCl/Acetaminophen [Percocet 5/325] 1 tablet PO Q6H PRN PRN 3 Days #15 tablet PRN Reason: Pain Transmission Status: Sent to [id number] Referrals: Hudson Frazier DO [Primary Care Provider] - [employer] developer, your [Other] (5-10 days)
[2019-11-23 04:41] LABS: Absolute Neutrophil Count 9.9 X10^3/uL (2.0-7.7); Basophil# 0.02 X10^3/uL; Basophil% 0.2 % (0-1); Eosinophil# 0.26 X10^3/uL; Eosinophils% 2.1 % (0-5); Hematocrit 45.1 % (40-54); Hemoglobin 14.9 g/dL (13.0-16.5); Lymphocyte % 13.4 % (19-41); Mean Corpuscular Hgb 29.4 pg (27.0-32.0); Mean Platelet Vol. 10.2 fl (6.2-12.0); Monocyte# 0.72 X10^3/uL; Monocyte% 5.7 % (0-10); NRBC Flagged by Analyzer 0 % (0-5); Neutrophil # 9.91 X10^3/uL (2.7-7.7); Neutrophil % 78.3 % (47-70); Platelet Count 277 K/mm3 (150-450); RBC Distribution Width CV 13.1 % (11.6-14.6); RBC Distribution Width SD 42.5 fl (35.1-43.9); Red Blood Count 5.07 M/mm3 (4.6-6.2); White Blood Count 12.7 K/mm3 (4.4-11.0)
[2019-11-23 05:47] LABS: Bacteria 0 SEEN /hpf (None Seen); Mucous, Urine 0 SEEN /hpf (<or=2+); Red Blood Cells-Urine 0 SEEN /hpf (0-5); Squamous Epithelial Cells - UA 0 SEEN /hpf (0-5); White Blood Cells 0 SEEN /hpf (0-5)
[2019-11-23 05:54] LABS: Color, Urine Yellow (Yellow); Glucose, Dipstick Normal (Normal); Ketone-Dipstick Negative (Negative); Leukocyte Esterase-Dipstick Negative /ul (Negative); Nitrite-Dipstick Negative (Negative); Occult Blood-Urine Negative /ul (Negative); Protein-Dipstick Negative (Negative); Urine Bilirubin Dipstick Negative (Negative); Urine Clarity Clear (Clear); Urine Urobilinogen Normal (Normal)
[2019-11-23 05:57] VITALS: BP 119/57; PULSE 81; RESP 16; O2SAT 96
[2019-11-23] MEDS: Ciprofloxacin 400 MG/200 ML BAG 200 MG IV (06:21)
[2019-11-23 07:45] LABS: ALB/GLOB Ratio 0.9 RATIO (0.9-2.4); AST(SGOT) 27 U/L (15-37); Alanine Aminotransfer ALT/SGPT 44 U/L (16-61); Albumin, Serum 3.7 g/dL (3.2-5.0); Alkaline Phosphatase 82 U/L (45-117); Anion Gap 8 (5-15); BUN 16 mg/dL (7-18); BUN/Creat Ratio 17.1 RATIO (10-20); Calcium,Total 9.1 mg/dL (8.5-10.1); Chloride 104 mmol/L (98-107); Creatinine, Serum 0.93 mg/dL (0.70-1.30); EST Glomerular Filtration Rate 101 mL/min (>60); Est Glom Filt Rate - Afr Amer 122 mL/min (>60); Estimated Creatinine Clearance 128.64 ml/min; Globulin 4.3 g/dL (2.2-4.2); Glucose 102 mg/dL (74-106); Potassium 4.2 mmol/L (3.5-5.1); Sodium Level 136 mmol/L (136-145)
[2019-11-23] MEDS: metroNIDAZOLE 500 MG/100 ML BAG 100 MG IV (07:45)
[2019-11-23 07:48] VITALS: BP 121/82
== END 2019-11-23 09:02 | disposition home or self-care (01) ==
PROVIDERS: Emergency Provider Emergency Medicine; PCP Family Medicine
DX: K57.32 Diverticulitis of large intestine without perforation or abscess without bleeding (principal); K50.90 Crohn's disease, unspecified, without complications; K21.9 Gastro-esophageal reflux disease without esophagitis; F31.9 Bipolar disorder, unspecified; F43.10 Post-traumatic stress disorder, unspecified; F63.81 Intermittent explosive disorder; F17.200 Nicotine dependence, unspecified, uncomplicated; Z79.899 Other long term (current) drug therapy
CPT/HCPCS: 74177; 80053; 81001; 85025; 96361; 96365; 96366; 96367; 96375; 96376; 99285; J7030; Q9967; J0744; J2405

== ENCOUNTER 2019-11-24 13:40 | Inpatient (IN) | payer MEDICARE, MEDICAID, SELFPAY ==
[2019-11-23 03:51] VITALS: BMI 38.1
[2019-11-24 13:41] VITALS: BP 115/64; PULSE 101; RESP 20; TEMP 37.2; O2SAT 100; BMI 37.7
[2019-11-24] MEDS: Ondansetron 4 MG/2 ML Vial IV (15:02)
[2019-11-24] MEDS: Morphine 4 MG/ML Syringe IV ×2 (15:03→16:38)
[2019-11-24] MEDS: 0.9% Normal Saline 1,000 ML 125 ML IV (15:04)
--- NOTE | 2019-11-24 15:13 | RAD_ITS ---
STUDY: X-RAY - ABDOMEN/PELVIS REASON FOR EXAM: Male, 29 years old. ABDOMINAL PAIN; -- DIVERTICULOSIS TECHNIQUE: AP supine and upright views of the abdomen and pelvis. COMPARISON: None. FINDINGS: Normal visualized lung bases. There is an unremarkable bowel gas pattern. There is no demonstrated free abdominal air. The visualized liver, spleen and kidneys are grossly normal in size and morphology. Normal soft tissue structures. Normal visualized osseous structures. RAD/Abd Inc Decub and/or Erect IMPRESSION: Normal x-ray examination of the abdomen and pelvis. Electronically Signed: Jim Gallardo MD at 15:49 EST Tel , Service support ,
[2019-11-24 15:17] LABS: Absolute Lymphocyte Count 1.55 X10^3/uL (0.83-4.51); Absolute Neutrophil Count 7.1 X10^3/uL (2.0-7.7); Basophil# 0.02 X10^3/uL; Basophil% 0.2 % (0-1); Eosinophil# 0.12 X10^3/uL; Eosinophils% 1.3 % (0-5); Hemoglobin 15.4 g/dL (13.0-16.5); Lymphocyte # 1.55 X10^3/ul (4.0); Lymphocyte % 16.4 % (19-41); Mean Corp Hgb Conc 32.8 g/dL (32-36); Mean Corpuscular Hgb 29.1 pg (27.0-32.0); Mean Corpuscular Volume 88.8 fL (80-94); Mean Platelet Vol. 10.2 fl (6.2-12.0); Monocyte# 0.64 X10^3/uL; Monocyte% 6.8 % (0-10); NRBC Flagged by Analyzer 0 % (0-5); Neutrophil # 7.09 X10^3/uL (2.7-7.7); Platelet Count 285 K/mm3 (150-450); RBC Distribution Width CV 12.9 % (11.6-14.6); RBC Distribution Width SD 41.8 fl (35.1-43.9); Red Blood Count 5.29 M/mm3 (4.6-6.2); White Blood Count 9.5 K/mm3 (4.4-11.0)
[2019-11-24 15:32] LABS: Anion Gap 5 (5-15); BUN 10 mg/dL (7-18); BUN/Creat Ratio 10.1 RATIO (10-20); Calcium,Total 9.6 mg/dL (8.5-10.1); Chloride 105 mmol/L (98-107); Creatinine, Serum 0.99 mg/dL (0.70-1.30); EST Glomerular Filtration Rate 95 mL/min (>60); Est Glom Filt Rate - Afr Amer 115 mL/min (>60); Estimated Creatinine Clearance 120.84 ml/min; Glucose 73 mg/dL (74-106); Sodium Level 136 mmol/L (136-145)
--- NOTE | 2019-11-24 16:15 | ED.VISSUMM ---
- ER Visit Summary Date of Service: 11/24/19 Chief Complaint: [Abdominal pain] History of Present Illness: The patient is a 29 M [presents to the emergency department complaint of abdominal pain is started 2 days ago. Patient was seen in the emergency department yesterday and diagnosed with diverticulitis and sent home with Cipro, Flagyl, and Percocet. Patient states that he continues to have severe pain. He denies any fever or vomiting. Patient also states he has not had a bowel movement about 4 days. Patient has history of Crohn's disease as well as bipolar disorder and PTSD. Patient denies urinary symptoms.] Physical Examination: [HEENT-PERRLA, EOMI. Cranial nerves II through XII grossly intact. TMs clear. Mucous membranes moist. No adenopathy. Cardiovascular-regular rate and rhythm without murmur or ectopy Lungs-clear to auscultation, chest wall stable without crepitus or subcu emphysema Abdomen-patient has tenderness over the suprapubic region with some guarding. There is no rebound, rigidity, or peritoneal signs. Extremities-intact ?4, normal range of motion, normal pulses, atraumatic] Test Results: [CBC with differential obtained showed a white count of 9.5, chemistries unremarkable. KUB obtained showed no obstruction or free air. Patient had a WBC count of 12.7 yesterday. Patient has had multiple CT scans of the abdomen pelvis in the past therefore I did not feel another one needed to be repeated today.] Emergency Department Course and Treatment: [Patient had an IV line established and was given normal saline. Patient was medicated morphine and Zofran.] Treatment Plan: [Admit for pain control and IV antibiotics] Disposition: [Admit] Impression: [Abdominal pain Acute diverticulitis] This note was generated with [employer] dictation software. It may contain incorrect words, spelling, and punctuation that were not noted in review of the chart prior to signing ED Disposition - Plan for ED Patient: Referrals: Hudson Frazier DO [Primary Care Provider] -
[2019-11-24 16:41] VITALS: BP 157/99; PULSE 70; RESP 16; RESP 18; O2SAT 100
--- NOTE | 2019-11-24 16:48 | NURSING ---
309 WHITE INTRACTABLE ABD PAIN, DIVERTICULITIS
--- NOTE | 2019-11-24 16:57 | PCM.HP.STD ---
Problem List (1) Diverticulitis Status: Acute (2) Crohn's disease Status: Chronic (3) Bipolar disorder Status: Chronic (4) Intermittent explosive disorder Status: Chronic (5) IBS (irritable bowel syndrome) Status: Chronic (6) GERD (gastroesophageal reflux disease) Status: Chronic (7) Obesity Status: Chronic (8) PTSD (post-traumatic stress disorder) Status: Chronic History of Present Illness Date of Admission: 11/24/19 Chief Complaint: abdominal pain The patient is a 29 year old M with a history of diverticulitis with abscess, Crohn's disease, bipolar disorder, intermittent explosive disorder, obesity, nicotine abuse, who presents to the emergency room with uncontrolled abdominal pain. This began 2 days ago. He was in the emergency room yesterday was diagnosed with sigmoid diverticulitis by CT scan, started on Cipro, Flagyl, Percocet and sent home. The patient had been having normal bowel movements up until the day the pain started, he had has not had a bowel movement since then. He has nausea with no vomiting. He reports chills at home. He reports the pain is bilateral, severe, stabbing pain. He states that his intermittent explosive disorder is much worse and he has a hard time controlling it because of the pain. He has not previously had surgery for diverticulitis. He has a biopsy-positive Crohn's disease per history. The patient also missed his last dose of Humira and has gone over a week and a half without treatment. He is he states the pain is so bad that he sits holding a knife to his stomach thinking he wants to cut it out of himself. He tried taking Cipro and Flagyl at home has not had no improvement, he has not been able to eat for 2 days. Oxycodone is not helping his pain. [] Past Medical History Past Medical History (Chronic Problems): Chronic Problems (Last Reviewed 11/04/18 @ 07:[address] Ruiz Elaine DO) Crohn's disease (Chronic) Bipolar disorder (Chronic) Intermittent explosive disorder (Chronic) IBS (irritable bowel syndrome) (Chronic) Hemorrhoids (Chronic) Tobacco dependence (Chronic) GERD (gastroesophageal reflux disease) (Chronic) Obesity (Chronic) PTSD (post-traumatic stress disorder) (Chronic) Bipolar disorder (Chronic) Medical History: Medical History (Last Reviewed 11/04/18 @ 07:[address] 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 Allergies dextromethorphan HBr [From NyQuil] Allergy (Verified 11/24/19 13:43) Anaphylaxis doxylamine [From NyQuil] Allergy (Verified 11/24/19 13:43) Anaphylaxis poison mimi extract [Poison Mimi Extract] Allergy (Verified 11/24/19 13:43) Anaphylaxis pseudoephedrine HCl [From NyQuil] Allergy (Verified 11/24/19 13:43) Anaphylaxis venom-honey bee [bee venom (honey bee)] Allergy (Verified 11/24/19 13:43) Anaphylaxis MUSHROOMS Allergy (Uncoded 11/24/19 13:43) Anaphylaxis Home Medications: Ambulatory Orders Medication Instructions Recorded Adalimumab [Humira] 40 mg SQ WE 08/04/19 hydrOXYzine pamoate capsule 50 mg PO BID PRN 08/04/19 [Vistaril pamoate capsule] Ciprofloxacin [Cipro] 500 mg PO BID #20 tab 11/23/19 Ondansetron HCl [Zofran] 4 mg PO Q8H PRN PRN 11/23/19 Oxycodone HCl/Acetaminophen 1 tab PO Q6H PRN PRN 3 Days #15 tab 11/23/19 [Percocet 5/325] metroNIDAZOLE [Flagyl] 500 mg PO BID #20 tab 11/23/19 Acetaminophen 2,000 mg PO DAILY@1030 11/24/19 Acetaminophen [Tylenol Extra 1,000 mg PO DAILY@199911/24/19 Strength] Omeprazole [Prilosec] 20 mg PO DAILY 11/24/19 Surgical History: - - testicular surgery on cyst--nonresectable., left foot Psychiatric History: Anxiety, Bipolar, Post traumatic stress, - - Multiple personality disorder, Smoking Status: Current every day smoker Tobacco Use: Cigarettes Alcohol: None Drugs: Marijuana - *Family History Paternal Family History: Family History (Last Updated 11/04/18 @ 07:[address] Ruiz Elaine DO) Other Ulcerative colitis History Items: Heart Disease, - - murdered Maternal Family History: Family History (Last Updated 11/04/18 @ 07:[address] Ruiz Elaine, DO) Other Ulcerative colitis History Items: No pertinent history Review of Systems Constitutional: Reports: Chills. Denies: Fever, Weight Change HEENT: Denies: Head Aches, Sinus Congestion, Sinus Drainage Cardiovascular: Denies: Chest Pain, Palpitations Respiratory: Denies: Cough, Shortness of Breath, Shortness of breath at rest, Sputum production Gastrointestinal: Reports: Abdominal Pain, Constipation, Nausea. Denies: Vomiting Genitourinary: Denies: Dysuria Musculoskeletal: Denies: Joint Pain, Joint Tenderness Skin: Denies: Rash, Wounds Neurological: Denies: Numbness, Tingling, Focal weakness Psychiatric: Denies: Anxiety, Depression, Homicidal Ideations, Suicidal Ideations Hematologic/ Lymphatic: Denies: Easy Bruising, Easy Bleeding VTE Information - Inpt Only VTE Present on Admission: No VTE Mechan Device Prophylaxis: None VTE Pharm Prophylaxis ordered?: Yes - Physical Exam Vitals/I&O's: Vital Signs Temp Pulse Resp BP Pulse Ox 98.9 F 70 18 157/99 H 100 11/24/19 13:41 11/24/19 16:41 11/24/19 16:41 11/24/19 16:41 11/24/19 16:41 Oxygen Delivery Method Room Air Weight: 278 lb Body Mass Index (BMI) 37.7 General: Alert, Oriented x3, Cooperative HEENT: Atraumatic, PERRLA, EOMI, Normocephalic Neck: Supple, No JVD, Negative Carotid Bruits Lungs: Clear to auscultation, Normal air movement Cardiovascular: Regular rate, No murmurs Abdomen: Bowel Sounds Present, Soft, Hypoactive Bowel Sounds, Obese, Tender Extremities: No edema, Capillary Refill Less than 3 Seconds Skin: No rashes, No breakdown Musculoskeletal: No Tenderness to Palpation of Joints or Extremities Neurological: Cranial nerves II-XII grossly intact Psych/Mental Status: Normal Affect, Appropriate Laboratory Results 11/24/19 15:00: WBC 9.5, RBC 5.29, Hgb 15.4, Hct 47.0, MCV 88.8, MCH 29.1, MCHC 32.8, RDW Std Deviation 41.8, RDW Coeff of Bre 12.9, Plt Count 285, MPV 10.2, Immature Gran % (Auto) 0.300, Neut % (Auto) 75.0 H, Lymph % (Auto) 16.4 L, [place] % (Auto) 6.8, Eos % (Auto) 1.3, Baso % (Auto) 0.2, Absolute Neuts (auto) 7.1, Absolute Lymphs (auto) 1.55, Nucleated RBC % 0 11/24/19 15:00: Sodium 136, Potassium 4.0, Chloride 105, Carbon Dioxide 26.0, Anion Gap 5, BUN 10, Creatinine 0.99, Estim Creat Clear Calc 120.84, Est GFR (MDRD) Af Amer 115, Est GFR (MDRD) Non-Af 95, BUN/Creatinine Ratio 10.1, Glucose 73 L, Calcium 9.6 Current Medications Sodium Chloride () 1,000 mls @ 125 mls/hr IV .Q8H JULIA Last Admin: 11/24/19 15:04 Dose: 125 mls/hr Documented by: Assessment/Plan All Active Problems (Last Reviewed 11/04/18 @ 07:[address] Ruiz Elaine, DO) Diverticulitis (Acute) Colonic diverticular abscess (Resolved) Hypokalemia (Acute) Abscess of sigmoid colon (Acute) 1. Acute diverticulitis, recurrent-failed outpatient therapy. Intractable pain. Patient will be admitted to the medical surgical floor with Zosyn started. Will provide IV fluids. Clear liquid diet. IV PPI. Consult to general surgery. Sigmoid diverticulitis on yesterday's CT. He did have leukocytosis yesterday, mild, no fever. Mild tachycardia. 2. History of Crohn's disease-I am concerned that the patient may have a Crohn's exacerbation given his lack of fever or significant leukocytosis, intractable pain, and the fact that the patient missed a dose of Humira. Minimal bowel movement hx is confounding. We will start Solu-Medrol. 3. Nicotine abuse-patch 4. Obesity-dietitian consult when appropriate 5. Bipolar disorder with intermittent explosive disorder, PTSD -Patient states that with the pain being so severe he has had multiple episodes of explosive disorder. We will continue his home medications. 6. GERD - ppi to iv bid 7. IBS - further complicating his GI issues DVT ppx: SCDs This patient was seen by Yovany Dubose PA-C under the supervision of Dr. Cueto.
[2019-11-24 17:29] VITALS: BP 146/78; PULSE 60; RESP 16; TEMP 36.4; O2SAT 100
[2019-11-24 17:31] VITALS: BMI 36.8
[2019-11-24 17:37] VITALS: BMI 36.8
[2019-11-24] MEDS: Dextrose 5%/0.9% NaCl 1,000 ML 125 ML IV (18:04)
[2019-11-24] MEDS: LORazepam 2 MG/ML Syringe 0.5 MG IV ×2 (18:41→23:22)
[2019-11-24] MEDS: 0.9% Saline Lock 10 ML Syringe IV ×2 (18:42→19:20)
[2019-11-24] MEDS: Morphine 2 MG/ML Syringe IV ×2 (19:20→21:38)
[2019-11-24 21:43] VITALS: BP 110/68; PULSE 62; RESP 16; TEMP 36.8; O2SAT 97
[2019-11-25 03:49] VITALS: BP 95/53; PULSE 63; RESP 16; TEMP 37.2; O2SAT 97
[2019-11-25 06:12] LABS: Absolute Lymphocyte Count 0.68 X10^3/uL (0.83-4.51); Absolute Neutrophil Count 8.1 X10^3/uL (2.0-7.7); Basophil# 0.01 X10^3/uL; Basophil% 0.1 % (0-1); Hematocrit 44.8 % (40-54); Hemoglobin 14.3 g/dL (13.0-16.5); Lymphocyte # 0.68 X10^3/ul (4.0); Lymphocyte % 7.5 % (19-41); Mean Corp Hgb Conc 31.9 g/dL (32-36); Mean Corpuscular Hgb 28.7 pg (27.0-32.0); Mean Platelet Vol. 10.2 fl (6.2-12.0); Monocyte# 0.23 X10^3/uL; Monocyte% 2.5 % (0-10); NRBC Flagged by Analyzer 0 % (0-5); Neutrophil # 8.13 X10^3/uL (2.7-7.7); Neutrophil % 89.5 % (47-70); Platelet Count 293 K/mm3 (150-450); RBC Distribution Width CV 12.6 % (11.6-14.6); RBC Distribution Width SD 41.1 fl (35.1-43.9); Red Blood Count 4.98 M/mm3 (4.6-6.2); White Blood Count 9.1 K/mm3 (4.4-11.0)
[2019-11-25] MEDS: LORazepam 2 MG/ML Syringe 0.5 MG IV ×3 (06:29→22:25)
[2019-11-25] MEDS: Enoxaparin 40 MG/0.4 ML Syringe SC (06:29)
[2019-11-25] MEDS: Dextrose 5%/0.9% NaCl 1,000 ML 125 ML IV ×2 (06:31→18:40)
[2019-11-25 06:37] LABS: Anion Gap 6 (5-15); BUN 9 mg/dL (7-18); Calcium,Total 9.1 mg/dL (8.5-10.1); Chloride 106 mmol/L (98-107); EST Glomerular Filtration Rate 93 mL/min (>60); Est Glom Filt Rate - Afr Amer 113 mL/min (>60); Estimated Creatinine Clearance 119.63 ml/min; Glucose 147 mg/dL (74-106); Potassium 4.2 mmol/L (3.5-5.1); Sodium Level 136 mmol/L (136-145)
[2019-11-25] MEDS: Morphine 2 MG/ML Syringe IV ×5 (07:47→22:39)
[2019-11-25] MEDS: 0.9% Saline Lock 10 ML Syringe IV ×6 (07:48→22:39)
[2019-11-25 07:50] VITALS: PULSE 72
--- NOTE | 2019-11-25 07:52 | PCM.CONS.GEN ---
Problem List (1) Crohn's disease Status: Chronic Qualifiers: Gastrointestinal tract location: unspecified location Digestive disease complication type: without complication Qualified Code(s): K50.90 - Crohn's disease, unspecified, without complications (2) Diverticulitis Status: Acute Reason for Consult Date of Consultation: 11/25/19 Reason for Consultation: Diverticulitis History of Present Illness: The patient is a 29 year old M presented with abdominal pain yesterday in the emergency room. He had a CT scan which showed acute diverticulitis and was sent home on oral antibiotics. He represented with increased abdominal pain. He reports left lower quadrant pain. He says this is the his fourth bout of diverticulitis this year. Past Medical History Past Medical History (Chronic Problems): Chronic Problems (Last Reviewed 11/04/18 @ 07:[address] Ruiz Elaine DO) Crohn's disease (Chronic) Bipolar disorder (Chronic) Intermittent explosive disorder (Chronic) IBS (irritable bowel syndrome) (Chronic) Hemorrhoids (Chronic) Tobacco dependence (Chronic) GERD (gastroesophageal reflux disease) (Chronic) Obesity (Chronic) PTSD (post-traumatic stress disorder) (Chronic) Bipolar disorder (Chronic) Medical History: Medical History (Last Reviewed 11/04/18 @ 07:[address] 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 Allergies dextromethorphan HBr [From NyQuil] Allergy (Verified 11/24/19 13:43) Anaphylaxis doxylamine [From NyQuil] Allergy (Verified 11/24/19 13:43) Anaphylaxis poison mimi extract [Poison Mimi Extract] Allergy (Verified 11/24/19 13:43) Anaphylaxis pseudoephedrine HCl [From NyQuil] Allergy (Verified 11/24/19 13:43) Anaphylaxis venom-honey bee [bee venom (honey bee)] Allergy (Verified 11/24/19 13:43) Anaphylaxis MUSHROOMS Allergy (Uncoded 11/24/19 13:43) Anaphylaxis Home Medications: Ambulatory Orders Medication Instructions Recorded Adalimumab [Humira] 40 mg SQ WE 08/04/19 hydrOXYzine pamoate capsule 50 mg PO BID PRN 08/04/19 [Vistaril pamoate capsule] Ciprofloxacin [Cipro] 500 mg PO BID #20 tab 11/23/19 Ondansetron HCl [Zofran] 4 mg PO Q8H PRN PRN 11/23/19 Oxycodone HCl/Acetaminophen 1 tab PO Q6H PRN PRN 3 Days #15 tab 11/23/19 [Percocet 5/325] metroNIDAZOLE [Flagyl] 500 mg PO BID #20 tab 11/23/19 Acetaminophen 2,000 mg PO DAILY@1030 11/24/19 Acetaminophen [Tylenol Extra 1,000 mg PO DAILY@199911/24/19 Strength] Omeprazole [Prilosec] 20 mg PO DAILY 11/24/19 Surgical History: - - testicular surgery on cyst--nonresectable., left foot Psychiatric History: Anxiety, Bipolar, Post traumatic stress, - - Multiple personality disorder, Smoking Status: Current every day smoker Tobacco Use: Cigarettes Alcohol: None Drugs: Marijuana - *Family History Paternal Family History: Family History (Last Updated 11/04/18 @ 07:[address] Ruiz Elaine DO) Other Ulcerative colitis History Items: Heart Disease, - - murdered Maternal Family History: Family History (Last Updated 11/04/18 @ 07:[address] Ruiz Elaine DO) Other Ulcerative colitis History Items: No pertinent history Review of Systems Constitutional: Denies: Anorexia, Fever HEENT: Denies: Difficulty Swallowing Cardiovascular: Denies: Chest Pain Respiratory: Denies: Cough, Shortness of Breath Gastrointestinal: Reports: Abdominal Pain, Nausea. Denies: Constipation, Diarrhea, Vomiting Genitourinary: Denies: Incontinence Musculoskeletal: Denies: Joint Tenderness Skin: Denies: Jaundice Neurological: Denies: Balance problems Hematologic/ Lymphatic: Denies: Anemia - Physical Exam Vitals/I&O's: Vital Signs Temp Pulse Resp BP Pulse Ox 98.9 F 63 16 95/53 L 97 11/25/19 03:49 11/25/19 03:49 11/25/19 03:49 11/25/19 03:49 11/25/19 03:49 Oxygen Delivery Method Room Air Weight: 271 lb 3.2 oz Body Mass Index (BMI) 36.8 Intake and Output for Last 24 Hours 11/23/19 11/24/1911/25/20 23:59 23:59 23:59 Intake Total 646.67 / 646.67 920.83 / 920.83 Balance 646.67 / 646.67 920.83 / 920.83 General: Alert, Oriented x3 Neck: No JVD Lungs: Normal air movement Cardiovascular: Regular rate, Regular Rhythm Abdomen: Bowel Sounds Present, Soft, Non-Distended, Tender Extremities: No clubbing Musculoskeletal: No Muscle Wasting Neurological: Cranial nerves II-XII grossly intact Psych/Mental Status: Normal Affect, Appropriate Laboratory Results 11/24/19 15:00: WBC 9.5, RBC 5.29, Hgb 15.4, Hct 47.0, MCV 88.8, MCH 29.1, MCHC 32.8, RDW Std Deviation 41.8, RDW Coeff of Bre 12.9, Plt Count 285, MPV 10.2, Immature Gran % (Auto) 0.300, Neut % (Auto) 75.0 H, Lymph % (Auto) 16.4 L, [place] % (Auto) 6.8, Eos % (Auto) 1.3, Baso % (Auto) 0.2, Absolute Neuts (auto) 7.1, Absolute Lymphs (auto) 1.55, Nucleated RBC % 0 11/24/19 15:00: Sodium 136, Potassium 4.0, Chloride 105, Carbon Dioxide 26.0, Anion Gap 5, BUN 10, Creatinine 0.99, Estim Creat Clear Calc 120.84, Est GFR (MDRD) Af Amer 115, Est GFR (MDRD) Non-Af 95, BUN/Creatinine Ratio 10.1, Glucose 73 L, Calcium 9.6 11/25/19 05:50: WBC 9.1, RBC 4.98, Hgb 14.3, Hct 44.8, MCV 90.0, MCH 28.7, MCHC 31.9 L, RDW Std Deviation 41.1, RDW Coeff of Bre 12.6, Plt Count 293, MPV 10.2, Immature Gran % (Auto) 0.400, Neut % (Auto) 89.5 H, Lymph % (Auto) 7.5 L, [place] % (Auto) 2.5, Eos % (Auto) 0.0, Baso % (Auto) 0.1, Absolute Neuts (auto) 8.1 H, Absolute Lymphs (auto) 0.68 L, Nucleated RBC % 0 11/25/19 05:50: Sodium 136, Potassium 4.2, Chloride 106, Carbon Dioxide 24.0, Anion Gap 6, BUN 9, Creatinine 1.00, Estim Creat Clear Calc 119.63, Est GFR (MDRD) Af Amer 113, Est GFR (MDRD) Non-Af 93, BUN/Creatinine Ratio 9.0 L, Glucose 147 H, Calcium 9.1 Clinical Impression(s) from Imaging Studies Abdomen X-Ray 11/24/19 15:13 IMPRESSION: Normal x-ray examination of the abdomen and pelvis. Electronically Signed: Jim Gallardo MD at 15:49 EST Tel , Service support , Current Medications Acetaminophen (Tylenol) 650 mg PO Q6H PRN PRN PRN Reason: Pain or Fever Enoxaparin Sodium (Lovenox) 40 mg SC DAILY@0600 [facility] Last Admin: 11/25/19 06:29 Dose: 40 mg Documented by: Hydroxyzine Pamoate (Vistaril Pamoate Capsule) 50 mg PO BID PRN PRN Reason: ANXIETY Pantoprazole Sodium 40 mg/ (Sodium Chloride) 110 mls @ 330 mls/hr IV Q12 [facility] Last Infusion: 11/24/19 23:06 Dose: Infused Documented by: Piperacillin Sod/Tazobactam (Sod 3.375 gm/ Sodium Chloride) 50 mls @ 12.5 mls/hr IV Q8 [facility] Last Admin: 11/25/19 06:29 Dose: 12.5 mls/hr Documented by: Dextrose/Sodium Chloride (Dextrose 5%/0.9% Nacl) 1,000 mls @ 125 mls/hr IV .Q8H [facility] Last Infusion: 11/25/19 06:31 Dose: 0 mls/hr Documented by: Lorazepam (Ativan) 0.5 mg IV Q4H PRN PRN PRN Reason: AGITATION Last Admin: 11/25/19 06:29 Dose: 0.5 mg Documented by: Methylprednisolone (Solu-Medrol) 40 mg IV Q8 [facility] Last Admin: 02/26/20 06:29 Dose: 40 mg Documented by: Morphine Sulfate () 2 mg IV Q2H PRN PRN PRN Reason: Pain Score 6-10/10 Last Admin: 11/25/19 07:47 Dose: 2 mg Documented by: Non-Formulary Medication (Adalimumab) 40 mg SQ WE JULIA Ondansetron HCl (Zofran) 4 mg IV Q6H PRN PRN PRN Reason: NAUSEA Oxycodone HCl (Oxyir) 5 mg PO Q4H PRN PRN PRN Reason: Pain Score 6-10/10 Promethazine HCl (Phenergan) 6.25 mg IV Q6H PRN PRN PRN Reason: NAUSEA/VOMITING Sodium Chloride () 10 - 40 ml IV UD PRN PRN Reason: SALINE FLUSH Last Admin: 11/25/19 07:48 Dose: 10 ml Documented by: Assessment/Plan All Active Problems (Last Reviewed 11/04/18 @ 07:[address] Ruiz Elaine, DO) Diverticulitis (Acute) Colonic diverticular abscess (Resolved) Hypokalemia (Acute) Abscess of sigmoid colon (Acute) 29-year-old male with acute diverticulitis and history of Crohn's disease 1. The patient notes that he has a history of Crohn's disease and he does have a GI doctor. He has had diverticulitis 4 times now. His last bout of diverticulitis was complicated with abscess. He says he is having a hard time finding a surgeon willing to operate on him. 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 2. In the acute setting the patient is improving with pain that is decreasing a normal white count. He has uncomplicated acute diverticulitis at this time. Continue n.p.o. until the pain resolves and then he can start a diet. He is passing gas and having bowel movements with no bleeding. I will make a referral to Danyel Dumont's group at [facility] as I believe the patient will need tertiary colorectal surgery for an elective sigmoid colectomy. Александр Hinds MD Pager: [facility] [address] [place] [address], [address] [place] [address] Office:
--- NOTE | 2019-11-25 09:36 | CASEMGMT ---
Tertiary facilities in-network with patient's insurance: [facility], [place], [facility], [facility], [facility], and [facility].
[2019-11-25] MEDS: hydrOXYzine PAM 25 MG Capsule 50 MG PO ×2 (09:57→20:05)
[2019-11-25 10:00] VITALS: BP 135/83; PULSE 78; RESP 18; TEMP 36.2; O2SAT 97
[2019-11-25 11:35] LABS: Bedside Glucose 122 mg/dL (70-110)
--- NOTE | 2019-11-25 12:21 | PN_ITS ---
<Yovany Dubose - Last Filed: 11/25/19 12:21> Subjective: Ongoing abdominal pain. currently 11/09. large watery bm this AM. No fever/chills. No SOB. Pt is still stating he wants surgery while here. Vitals/I&O's: Vital Signs Temp Pulse Resp BP Pulse Ox 97.2 F L 78 18 135/83 H 97 11/25/19 10:00 11/25/19 10:00 11/25/19 10:00 11/25/19 10:00 11/25/19 10:00 Oxygen Delivery Method Room Air Weight: 271 lb 3.2 oz Body Mass Index (BMI) 36.8 Intake and Output for Last 24 Hours 11/23/19 11/24/19 11/25/19 23:59 23:59 23:59 Intake Total 646.67 / 646.67 1103.75 / 1103.75 Balance 646.67 / 646.67 1103.75 / 1103.75 General: Alert, Oriented x3, Cooperative HEENT: Atraumatic, PERRLA, EOMI, Normocephalic Neck: Supple, No JVD, Negative Carotid Bruits Lungs: Clear to auscultation, Normal air movement Cardiovascular: Regular rate, No murmurs Abdomen: Bowel Sounds Present, Soft, Non Tender Extremities: No edema, Capillary Refill Less than 3 Seconds Skin: No rashes, No breakdown Musculoskeletal: No Tenderness to Palpation of Joints or Extremities Neurological: Cranial nerves II-XII grossly intact Psych/Mental Status: Normal Affect, Appropriate, Alert and oriented to time, place, person, mood and affect Laboratory Results 11/24/19 15:00: WBC 9.5, RBC 5.29, Hgb 15.4, Hct 47.0, MCV 88.8, MCH 29.1, MCHC 32.8, RDW Std Deviation 41.8, RDW Coeff of Bre 12.9, Plt Count 285, MPV 10.2, Immature Gran % (Auto) 0.300, Neut % (Auto) 75.0 H, Lymph % (Auto) 16.[address] L, [facility] % (Auto) 6.8, Eos % (Auto) 1.3, Baso % (Auto) 0.2, Absolute Neuts (auto) 7.1, Absolute Lymphs (auto) 1.55, Nucleated RBC % 0 11/24/19 15:00: Sodium 136, Potassium 4.0, Chloride 105, Carbon Dioxide 26.0, Anion Gap 5, BUN 10, Creatinine 0.99, Estim Creat Clear Calc 120.84, Est GFR (MDRD) Af Amer 115, Est GFR (MDRD) Non-Af 95, BUN/Creatinine Ratio 10.1, Glucose 73 L, Calcium 9.6 11/25/19 05:50: WBC 9.1, RBC 4.98, Hgb 14.3, Hct 44.8, MCV 90.0, MCH 28.7, MCHC 31.9 L, RDW Std Deviation 41.1, RDW Coeff of Bre 12.6, Plt Count 293, MPV 10.2, Immature Gran % (Auto) 0.400, Neut % (Auto) 89.5 H, Lymph % (Auto) 7.[address], [facility] % (Auto) 2.5, Eos % (Auto) 0.0, Baso % (Auto) 0.1, Absolute Neuts (auto) 8.1 H, Absolute Lymphs (auto) 0.68 L, Nucleated RBC % 0 11/25/19 05:50: Sodium 136, Potassium 4.2, Chloride 106, Carbon Dioxide 24.0, Anion Gap 6, BUN 9, Creatinine 1.00, Estim Creat Clear Calc 119.63, Est GFR (MDRD) Af Amer 113, Est GFR (MDRD) Non-Af 93, BUN/Creatinine Ratio 9.0 L, Glucose 147 H, Calcium 9.1 11/25/19 11:31: POC Glucose 122 H Current Medications Acetaminophen (Tylenol) 650 mg PO Q6H PRN PRN PRN Reason: Pain or Fever Enoxaparin Sodium (Lovenox) 40 mg SC DAILY@0600 [facility] Last Admin: 11/25/19 06:29 Dose: 40 mg Documented by: Hydroxyzine Pamoate (Vistaril Pamoate Capsule) 50 mg PO BID PRN PRN Reason: ANXIETY Last Admin: 11/25/19 09:57 Dose: 50 mg Documented by: Pantoprazole Sodium 40 mg/ (Sodium Chloride) 110 mls @ 330 mls/hr IV Q12 [facility] Last Infusion: 11/25/19 11:13 Dose: Infused Documented by: Piperacillin Sod/Tazobactam (Sod 3.375 gm/ Sodium Chloride) 50 mls @ 12.5 mls/hr IV Q8 [facility] Last Infusion: 11/25/19 10:29 Dose: Infused Documented by: Dextrose/Sodium Chloride (Dextrose 5%/0.9% Nacl) 1,000 mls @ 125 mls/hr IV .Q8H [facility] Last Infusion: 11/25/19 11:13 Dose: 125 mls/hr Documented by: Lorazepam (Ativan) 0.5 mg IV Q4H PRN PRN PRN Reason: AGITATION Last Admin: 11/25/19 06:29 Dose: 0.5 mg Documented by: Methylprednisolone (Solu-Medrol) 40 mg IV Q8 [facility] Last Admin: 11/25/19 06:29 Dose: 40 mg Documented by: Morphine Sulfate () 2 mg IV Q2H PRN PRN PRN Reason: Pain Score 6-10/10 Last Admin: 11/25/19 09:57 Dose: 2 mg Documented by: Non-Formulary Medication (Adalimumab) 40 mg SQ WE [facility] Ondansetron HCl (Zofran) 4 mg IV Q6H PRN PRN PRN Reason: NAUSEA Oxycodone HCl (Oxyir) 5 mg PO Q4H PRN PRN PRN Reason: Pain Score 6-10/10 Promethazine HCl (Phenergan) 6.25 mg IV Q6H PRN PRN PRN Reason: NAUSEA/VOMITING Sodium Chloride () 10 - 40 ml IV UD PRN PRN Reason: SALINE FLUSH Last Admin: 11/25/19 09:57 Dose: 10 ml Documented by: STROKE Vital Signs/Narrative: Vital Signs Temp Pulse Resp BP Pulse Ox 11/25/19 10:00 97.2 F L 78 18 135/83 H 97 Medical Necessity - Tobacco Use Smoking Status: Current every day smoker Tobacco Use: Cigarettes Assessment/Plan All Active Problems (Last Reviewed 11/04/18 @ 07:[address] Ruiz Elaine DO) Diverticulitis (Acute) Colonic diverticular abscess (Resolved) Hypokalemia (Acute) Abscess of sigmoid colon (Acute) 1. Acute diverticulitis, recurrent-failed outpatient therapy. Pain improving. Continue NPO/Zosyn. Surgery following. Plan for tertiary referral to [facility] per Dr. Hinds. 2. History of Crohn's disease-possible exacerbation. Continue steroids. 3. Nicotine abuse-patch 4. Obesity-dietitian consult when appropriate 5. Bipolar disorder with intermittent explosive disorder, PTSD -Patient states that with the pain being so severe he has had multiple episodes of explosive disorder. We will continue his home medications. 6. GERD - ppi 7. IBS - complicating above DVT ppx: SCDs This patient was seen by Yovany Dubose PA-C under the supervision of Dr. Grant. <Travis Grant - Last Filed: 11/25/19 16:19> Subjective: Patient seems frustrated and depressed with his medical disease of Crohn's disease and recurrent diverticulitis. He want surgery to be done. Patient was seen by surgeon and currently on medical management for diverticulitis. Patient was tried to convince that surgery is not recommended during acute diverticulitis or colitis exacerbation secondary to inflamed bowel. Vitals/I&O's: Vital Signs Temp Pulse Resp BP Pulse Ox 97.8 F 79 16 125/77 H 97 11/25/19 15:15 11/25/19 15:15 11/25/19 15:15 11/25/19 15:15 11/25/19 15:15 Oxygen Delivery Method Room Air Weight: 271 lb 3.191 oz Body Mass Index (BMI) 36.8 Intake and Output for Last 24 Hours 11/23/19 11/24/19 11/25/19 23:59 23:59 23:59 Intake Total 646.67 / 646.67 1153.75 / 1153.75 Balance 646.67 / 646.67 1153.75 / 1153.75 General: Alert, Oriented x3, Cooperative HEENT: Atraumatic, PERRLA, EOMI, Normocephalic Neck: Supple, No JVD, Negative Carotid Bruits Lungs: Clear to auscultation, Normal air movement, No rhonchi, No wheeze, No rales Cardiovascular: Regular rate, Regular Rhythm, Normal S1, Normal S2, No murmurs Abdomen: Bowel Sounds Present, Soft, Non-Distended, Hypoactive Bowel Sounds, Tender - Mild tenderness present over left lower quadrant Extremities: No edema, Capillary Refill Less than 3 Seconds Skin: No rashes, No breakdown Musculoskeletal: No Tenderness to Palpation of Joints or Extremities, Arthritic Changes Neurological: Cranial nerves II-XII grossly intact, Deep Tendon Reflexes 2+/4 and Symmetrical, Neuro grossly intact Psych/Mental Status: Normal Affect, Appropriate Laboratory Results 11/25/19 05:50: WBC 9.1, RBC 4.98, Hgb 14.3, Hct 44.8, MCV 90.0, MCH 28.7, MCHC 31.9 L, RDW Std Deviation 41.1, RDW Coeff of Bre 12.6, Plt Count 293, MPV 10.2, Immature Gran % (Auto) 0.400, Neut % (Auto) 89.5 H, Lymph % (Auto) 7.5 L, [facility] % (Auto) 2.5, Eos % (Auto) 0.0, Baso % (Auto) 0.1, Absolute Neuts (auto) 8.1 H, Absolute Lymphs (auto) 0.68 L, Nucleated RBC % 0 11/25/19 05:50: Sodium 136, Potassium 4.2, Chloride 106, Carbon Dioxide 24.0, Anion Gap 6, BUN 9, Creatinine 1.00, Estim Creat Clear Calc 119.63, Est GFR (MDRD) Af Amer 113, Est GFR (MDRD) Non-Af 93, BUN/Creatinine Ratio 9.0 L, Glucose 147 H, Calcium 9.1 11/25/19 11:31: POC Glucose 122 H Current Medications Acetaminophen (Tylenol) 650 mg PO Q6H PRN PRN PRN Reason: Pain or Fever Enoxaparin Sodium (Lovenox) 40 mg SC DAILY@0600 [facility] Last Admin: 11/25/19 06:29 Dose: 40 mg Documented by: Hydroxyzine Pamoate (Vistaril Pamoate Capsule) 50 mg PO BID PRN PRN Reason: ANXIETY Last Admin: 11/25/19 09:57 Dose: 50 mg Documented by: Pantoprazole Sodium 40 mg/ (Sodium Chloride) 110 mls @ 330 mls/hr IV Q12 [facility] Last Infusion: 11/25/19 11:13 Dose: Infused Documented by: Piperacillin Sod/Tazobactam (Sod 3.375 gm/ Sodium Chloride) 50 mls @ 12.5 mls/hr IV Q8 [facility] Last Admin: 11/25/19 13:33 Dose: 12.5 mls/hr Documented by: Dextrose/Sodium Chloride (Dextrose 5%/0.9% Nacl) 1,000 mls @ 125 mls/hr IV .Q8H [facility] Last Infusion: 11/25/19 11:13 Dose: 125 mls/hr Documented by: Lorazepam (Ativan) 0.5 mg IV Q4H PRN PRN PRN Reason: AGITATION Last Admin: 11/25/19 13:40 Dose: 0.5 mg Documented by: Methylprednisolone (Solu-Medrol) 40 mg IV Q8 [facility] Last Admin: 11/25/19 13:33 Dose: 40 mg Documented by: Morphine Sulfate () 2 mg IV Q2H PRN PRN PRN Reason: Pain Score 6-10/10 Last Admin: 11/25/19 13:32 Dose: 2 mg Documented by: Ondansetron HCl (Zofran) 4 mg IV Q6H PRN PRN PRN Reason: NAUSEA Oxycodone HCl (Oxyir) 5 mg PO Q4H PRN PRN PRN Reason: Pain Score 6-10/10 Promethazine HCl (Phenergan) 6.25 mg IV Q6H PRN PRN PRN Reason: NAUSEA/VOMITING Sodium Chloride () 10 - 40 ml IV UD PRN PRN Reason: SALINE FLUSH Last Admin: 11/25/19 13:32 Dose: 10 ml Documented by: STROKE Vital Signs/Narrative: Vital Signs Temp Pulse Resp BP Pulse Ox 11/25/19 15:15 97.8 F 79 16 125/77 H 97 Assessment/Plan This patient was seen in conjunction with Yovany FINNEGAN. I have independently interviewed and examined the patient and reviewed pertinent history, examination findings, laboratory and plan of management. I have reviewed the note and agr ee with the documented findings with the few additional points. In brief, patient is 29-year-old gentleman with history of Crohn's disease diagnosed by colonoscopy biopsy and recurrent diverticulitis, fourth this time came to ER with abdominal pain, failed outpatient therapy. Last time is acute diverticulitis complicated with abscess and has previous history of colovesical fistula which was treated nonoperatively. Patient was seen by surgeon. Has uncomplicated acute diverticulitis at this time. N.p.o.; on IV antibiotic Cipro and Flagyl. Surgeon Dr. Hinds will [facility] a [facility], colorectal surgeon especially for elective sigmoid colectomy. Other comorbidities include Crohn's disease possible exacerbation, nicotine abuse, obesity and bipolar disorder: On IV Solu-Medrol. As per patient he is on Humira every week but usually the dose is every 2 weeks. I have discussed my assessment with Yovany FINNEGAN and orders have been reviewed. Code Visit Inpatient E&M: 42160 Subs Hosp L2
--- NOTE | 2019-11-25 12:45 | CASEMGMT ---
RN CM STOCK CHASER CM to room to meet with patient for initial transition planning/care coordination assessment. JUANA CAMARA introduced self and role at [facility]. Pt voices understanding and consents to assessment at this time. Pt sitting up in bed, in no distress at this time. sitting on edge of bed with pt. Pt is A/O at this time and answers all questions appropriately. Care providers, pharmacy, and demographics verified/updated at this time. PCP: Dr Hudson Frazier Specialists: Dr Arielle Coburn @ [facility]. States is looking into switching to start seeing Dr Lucero in [place]. Dr Lr--pain mgmt. Preferred Pharmacy: [facility] Retail Insurance: [employer] Dual Prescription Benefit: Yes Living Will/HPOA: States does not have LW or HCPOA . Interested in more information and would like to talk with SW to complete paperwork. TOSHIA Vasquez, made aware. Pt also provided with Host/Hostess Head card and he was made aware he can meet with SW as an out-pt, if SW is unable to meet with him while an In-patient. He voices understanding. LNOK: , Joanna Living Arrangements: Lives with his . Independent. Transportation: Pt states drives self and states no transportation concerns at this time. also drives DME: Denies using any DME and denies needs. States has a CPAP but does not wear it. HHC/SNF: No history of either. No needs identified. Pt wishes to return home and states has no concerns with going home at time of discharge. CM to follow for any discharge planning/needs. Pt/ voice no concerns/needs at this time. Advised them to ask for CM if any further questions/concerns/needs arise. Voices understanding. PLAN: Home Henrique GIVENS RN, CM
[2019-11-25 15:15] VITALS: BP 125/77; PULSE 79; RESP 16; TEMP 36.6; O2SAT 97
--- NOTE | 2019-11-25 16:49 | CASEMGMT ---
Social Work Note SW received referral for advanced directives. SW unable to meet with pt today. SW will follow up with pt tomorrow as time allows. Louise Hood HEAD TEACHER, PRINTING SALES REPRESENTATIVE
--- NOTE | 2019-11-25 16:52 | NURSING ---
REFUSED BLOOD SUGAR CHECK.
[2019-11-25 22:19] VITALS: BP 154/95; PULSE 81; RESP 16; TEMP 36.4; O2SAT 99
[2019-11-25 22:51] LABS: Bedside Glucose 140 mg/dL (70-110)
[2019-11-26] MEDS: Dextrose 5%/0.9% NaCl 1,000 ML 125 ML IV (02:40)
[2019-11-26 04:15] VITALS: BP 123/61; PULSE 70; RESP 16; TEMP 36.4; O2SAT 96
[2019-11-26] MEDS: Enoxaparin 40 MG/0.4 ML Syringe SC (06:11)
[2019-11-26] MEDS: 0.9% Saline Lock 10 ML Syringe IV (06:13)
[2019-11-26] MEDS: LORazepam 2 MG/ML Syringe 0.5 MG IV (06:13)
[2019-11-26 07:05] LABS: Bedside Glucose 136 mg/dL (70-110)
--- NOTE | 2019-11-26 07:52 | NURSING ---
PT RESTING IN BED, EYES CLOSED, SNORING RESPIRATIONS
--- NOTE | 2019-11-26 09:53 | PN.SURG_ITS ---
Subjective: Patient is doing well. He has no abdominal pain. He was started on a regular diet which he is tolerating with no pain. - Physical Exam Vitals/I&O's: Vital Signs Temp Pulse Resp BP Pulse Ox 97.5 F L 70 16 123/61 H 96 11/26/19 04:15 11/26/19 04:15 11/26/19 04:15 11/26/19 04:15 11/26/19 04:15 Oxygen Delivery Method Room Air Weight: 271 lb 3.191 oz Body Mass Index (BMI) 36.8 Intake and Output for Last 24 Hours 11/24/19 11/25/19 11/26/19 23:59 23:59 23:59 Intake Total 646.67 / 646.67 1765.00 / 1825.00 1140 / 1140 Balance 646.67 / 646.67 1765.00 / 1825.00 1140 / 1140 General: Alert, Oriented x3 Lungs: Normal air movement Abdomen: Soft, Non Tender, Non-Distended Laboratory Results 11/25/19 11:31: POC Glucose 122 H 11/25/19 22:44: POC Glucose 140 H 11/26/19 06:20: POC Glucose 136 H Current Medications Acetaminophen (Tylenol) 650 mg PO Q6H PRN PRN PRN Reason: Pain or Fever Enoxaparin Sodium (Lovenox) 40 mg SC DAILY@0600 [facility] Last Admin: 11/26/19 06:11 Dose: 40 mg Documented by: Hydroxyzine Pamoate (Vistaril Pamoate Capsule) 50 mg PO BID PRN PRN Reason: ANXIETY Last Admin: 11/25/19 20:05 Dose: 50 mg Documented by: Piperacillin Sod/Tazobactam (Sod 3.375 gm/ Sodium Chloride) 50 mls @ 12.5 mls/hr IV Q8 [facility] Last Admin: 11/26/19 06:21 Dose: 12.5 mls/hr Documented by: Dextrose/Sodium Chloride (Dextrose 5%/0.9% Nacl) 1,000 mls @ 125 mls/hr IV .Q8H [facility] Last Admin: 11/26/19 02:40 Dose: 125 mls/hr Documented by: Lorazepam (Ativan) 0.5 mg IV Q4H PRN PRN PRN Reason: AGITATION Last Admin: 11/26/19 06:13 Dose: 0.5 mg Documented by: Methylprednisolone (Solu-Medrol) 40 mg IV Q8 [facility] Last Admin: 11/26/19 06:16 Dose: 40 mg Documented by: Morphine Sulfate () 2 mg IV Q2H PRN PRN PRN Reason: Pain Score 6-10/10 Last Admin: 11/25/19 22:39 Dose: 2 mg Documented by: Ondansetron HCl (Zofran) 4 mg IV Q6H PRN PRN PRN Reason: NAUSEA Oxycodone HCl (Oxyir) 5 mg PO Q4H PRN PRN PRN Reason: Pain Score 6-10/10 Pantoprazole Sodium (Protonix) 40 mg PO Q12 [facility] Promethazine HCl (Phenergan) 6.25 mg IV Q6H PRN PRN PRN Reason: NAUSEA/VOMITING Sodium Chloride () 10 - 40 ml IV UD PRN PRN Reason: SALINE FLUSH Last Admin: 11/26/19 06:13 Dose: 10 ml Documented by: Medical Necessity - Tobacco Use Smoking Status: Current every day smoker Tobacco Use: Cigarettes Assessment/Plan All Active Problems (Last Reviewed 11/04/18 @ 07:[address] Ruiz Elaine, DO) Diverticulitis (Acute) Colonic diverticular abscess (Resolved) Hypokalemia (Acute) Abscess of sigmoid colon (Acute) 29-year-old male with diverticulitis and history of Crohn's 1. Patient has a history of Crohn's disease and multiple bouts of diverticulitis. The patient also reports that he has a colovesical fistula. I have made an outpatient referral to [facility] colon and rectal surgery. They will be contacting him for appointment. He is to follow- up with me if they do not contact him so I can make sure he gets set up. Okay for discharge from my standpoint. Александр Hinds MD Pager: [facility] [address] [place] [address], [address] [place] [address] Office:
[2019-11-26 09:55] VITALS: BP 148/77; PULSE 79; RESP 18; TEMP 36.3; O2SAT 99
[2019-11-26] MEDS: Pantoprazole Sodium 40 MG Tablet PO (10:05)
--- NOTE | 2019-11-26 11:05 | PCM.DC ---
You will use the following diet at home:: Other - Soft diet Discharge Activity: Return to Normal Activity Call your doctor if you observe: Fever of 101 or Higher, Inability to have a bowel movement, Uncontrolled pain Allergies/Adverse Reactions: Allergies dextromethorphan HBr [From NyQuil] Allergy (Verified 11/24/19 13:43) Anaphylaxis doxylamine [From NyQuil] Allergy (Verified 11/24/19 13:43) Anaphylaxis poison mimi extract [Poison Mimi Extract] Allergy (Verified 11/24/19 13:43) Anaphylaxis pseudoephedrine HCl [From NyQuil] Allergy (Verified 11/24/19 13:43) Anaphylaxis venom-honey bee [bee venom (honey bee)] Allergy (Verified 11/24/19 13:43) Anaphylaxis MUSHROOMS Allergy (Uncoded 11/24/19 13:43) Anaphylaxis Medications to take at Discharge Adalimumab [Humira] 40 mg SQ WE 08/04/19 hydrOXYzine pamoate capsule [Vistaril pamoate capsule] 50 mg PO BID PRN 08/04/19 Ondansetron HCl [Zofran] 4 mg PO Q8H PRN PRN 11/23/19 Oxycodone HCl/Acetaminophen [Percocet 5-325] 1 tab PO Q6H PRN PRN 3 Days #15 tab 11/23/19 Acetaminophen 2,000 mg PO DAILY@1030 11/24/19 Acetaminophen [Tylenol Extra Strength] 1,000 mg PO DAILY@199911/24/19 Omeprazole [Prilosec] 20 mg PO DAILY 11/24/19 Amoxicillin/Potassium Clav [Augmentin 875-125 Tablet] 1 ea PO BID #14 tab 11/26/19 The following prescriptions were given: Amoxicillin/Potassium Clav [Augmentin 875-125 Tablet] 1 ea PO BID #14 tab Transmission Status: Pending to [facility] Primary Care Physician: Hudson Frazier DO [Primary Care Provider] - Please follow up with your Primary Care Physician in: 1 Week Test Results: Test results from this visit will be discussed in further detail at your follow-up appointment, if applicable. Please Follow Up With: Александр Hinds MD When: Call if you do not hear from [facility] Please Follow Up With: [facility] colorectal surgery When: Office to call you Proposed Discharge Date: 11/26/19
[2019-11-26 11:08] VITALS: BP 148/77; PULSE 79; RESP 18; TEMP 36.3; O2SAT 99
--- NOTE | 2019-11-26 11:08 | NURSING ---
PT ADVANCED TO REGULAR DIET THIS AM. TOLERATED 100% BREAKFAST W/NO N/V/ABD PAIN.
--- NOTE | 2019-11-26 11:13 | CASEMGMT ---
Social Work Note SW met with pt to complete advanced directives. Pt states he is getting ready to discharge from [facility] and doesn't want to complete documents at this time. SW provided pt with advanced directive documents to take home. Louise Hood FRONT WINDOW CASHIER, PLASTIC CUTTER
--- NOTE | 2019-11-26 11:17 | DS.PCM_ITS ---
<Jenifer Blanton - Last Filed: 11/26/19 11:37> Discharge Date and Diagnosis Date of Admission: 11/24/19 Date of Discharge: 11/26/19 - Primary Discharge Diagnosis 1. Acute diverticulitis, failed outpatient therapy 2. History of Crohn's disease 3. Tobacco dependence 4. Obesity 5. Bipolar with intermittent explosive disorder, PTSD 6. GERD - Secondary Discharge Diagnosis Chronic Problems (Last Reviewed 11/04/18 @ 07:[address] Ruiz Elaine, DO) Crohn's disease (Chronic) Bipolar disorder (Chronic) Intermittent explosive disorder (Chronic) IBS (irritable bowel syndrome) (Chronic) Hemorrhoids (Chronic) Tobacco dependence (Chronic) GERD (gastroesophageal reflux disease) (Chronic) Obesity (Chronic) PTSD (post-traumatic stress disorder) (Chronic) Bipolar disorder (Chronic) Hospital Course and Treatment Imaging Results: Diagnostic Data Abdomen X-Ray 11/24/19 15:13 IMPRESSION: Normal x-ray examination of the abdomen and pelvis. Electronically Signed: Jim Gallardo MD at 15:49 EST Tel , Service support , Dr. Hinds- General Surgery Operations: None Procedures: None Summary of Care Provided: The patient is a 29 year old M admitted 11/24/2019 due to abdominal pain. 1. Acute diverticulitis, failed outpatient therapy-patient placed on Cipro, Flagyl as outpatient with worsening of symptoms. General surgery, Dr. Hinds consulted. Suspect patient may need colorectal surgery for elective sigmoid colectomy. Referral was made by general surgery to [facility], Danyel Dumont's group. Office to call patient for follow-up. Patient received IV Zosyn during admission. Symptoms improved. No further fever or leukocytosis. Discharge on oral Augmentin to complete 10-day course of antibiotics. Follow-up with general surgery if further issues or if [facility] does not contact patient. 2. History of Crohn's disease-on Humira. 3. Tobacco dependence-encourage cessation. 4. Obesity-encouraged diet and lifestyle modifications. 5. Bipolar with intermittent explosive disorder, PTSD-not on appropriate medication regimen, encourage outpatient follow-up. Patient is on hydroxyzine only for as needed anxiety. 6. GERD-continue PPI. General: Alert, Oriented x3, Cooperative HEENT: Atraumatic, PERRLA, EOMI, Normocephalic Neck: Supple, No JVD, Negative Carotid Bruits Lungs: Clear to auscultation, Normal air movement Cardiovascular: Regular rate, No murmurs Abdomen: Bowel Sounds Present, Soft, Non Tender Extremities: No edema, Capillary Refill Less than 3 Seconds Skin: No rashes, No breakdown Musculoskeletal: No Tenderness to Palpation of Joints or Extremities Neurological: Cranial nerves II-XII grossly intact Psych/Mental Status: Normal Affect, Appropriate Patient seen and examined prior to discharge. Physical assessment as noted above. Patient is stable for discharge with follow up recommendations as noted above. This patient was seen by RAMAN Fine under the supervision of Dr. Ivory solomon. - Physical Exam Vitals/I&O's: Vital Signs Temp Pulse Resp BP Pulse Ox 97.4 F L 79 18 148/77 H 99 11/26/19 09:55 11/26/19 09:55 11/26/19 09:55 11/26/19 09:55 11/26/19 09:55 Oxygen Delivery Method Room Air Weight: 271 lb 3.191 oz Body Mass Index (BMI) 36.8 Intake and Output for Last 24 Hours 11/24/19 11/25/19 11/26/19 23:59 23:59 23:59 Intake Total 646.67 / 646.67 1765.00 / 1825.00 2190 / 2190 Balance 646.67 / 646.67 1765.00 / 1825.00 2190 / 2190 Laboratory Results 11/25/19 11:31: POC Glucose 122 H 11/25/19 22:44: POC Glucose 140 H 11/26/19 06:20: POC Glucose 136 H Current Medications Acetaminophen (Tylenol) 650 mg PO Q6H PRN PRN PRN Reason: Pain or Fever Enoxaparin Sodium (Lovenox) 40 mg SC DAILY@0600 JULIA Last Admin: 11/26/19 06:11 Dose: 40 mg Documented by: Hydroxyzine Pamoate (Vistaril Pamoate Capsule) 50 mg PO BID PRN PRN Reason: ANXIETY Last Admin: 11/25/19 20:05 Dose: 50 mg Documented by: Piperacillin Sod/Tazobactam (Sod 3.375 gm/ Sodium Chloride) 50 mls @ 12.5 mls/hr IV Q8 [facility] Last Infusion: 11/26/19 10:23 Dose: Infused Documented by: Dextrose/Sodium Chloride (Dextrose 5%/0.9% Nacl) 1,000 mls @ 125 mls/hr IV .Q8H JULIA Last Infusion: 11/26/19 10:43 Dose: Infused Documented by: Lorazepam (Ativan) 0.5 mg IV Q4H PRN PRN PRN Reason: AGITATION Last Admin: 11/26/19 06:13 Dose: 0.5 mg Documented by: Methylprednisolone (Solu-Medrol) 40 mg IV Q8 [facility] Last Admin: 11/26/19 06:16 Dose: 40 mg Documented by: Morphine Sulfate () 2 mg IV Q2H PRN PRN PRN Reason: Pain Score 6-10/10 Last Admin: 11/25/19 22:39 Dose: 2 mg Documented by: Ondansetron HCl (Zofran) 4 mg IV Q6H PRN PRN PRN Reason: NAUSEA Oxycodone HCl (Oxyir) 5 mg PO Q4H PRN PRN PRN Reason: Pain Score 6-10/10 Pantoprazole Sodium (Protonix) 40 mg PO Q12 [facility] Last Admin: 11/26/19 10:05 Dose: 40 mg Documented by: Promethazine HCl (Phenergan) 6.25 mg IV Q6H PRN PRN PRN Reason: NAUSEA/VOMITING Sodium Chloride () 10 - 40 ml IV UD PRN PRN Reason: SALINE FLUSH Last Admin: 11/26/19 06:13 Dose: 10 ml Documented by: Discharge Diet: Soft diet Discharge Activity: Return to Normal Activity Call your doctor if you observe: Fever of 101 or Higher, Inability to have a bowel movement, Uncontrolled pain Home Medications: Medications to take at Discharge Adalimumab [Humira] 40 mg SQ WE 08/04/19 hydrOXYzine pamoate capsule [Vistaril pamoate capsule] 50 mg PO BID PRN 08/04/19 Ondansetron HCl [Zofran] 4 mg PO Q8H PRN PRN 11/23/19 Oxycodone HCl/Acetaminophen [Percocet 5-325] 1 tab PO Q6H PRN PRN 3 Days #15 tab 11/23/19 Acetaminophen 2,000 mg PO DAILY@1030 11/24/19 Acetaminophen [Tylenol Extra Strength] 1,000 mg PO DAILY@199911/24/19 Omeprazole [Prilosec] 20 mg PO DAILY 11/24/19 Amoxicillin/Potassium Clav [Augmentin 875-125 Tablet] 1 ea PO BID #14 tab 11/26/19 Following Prescrptions Were Given to Patient: Amoxicillin/Potassium Clav [Augmentin 875-125 Tablet] 1 ea PO BID #14 tab Transmission Status: Sent to [facility] Primary Care Physician: Hudson Frazier DO [Primary Care Provider] - Please follow up with your Primary Care Physician in: 1 Week Please Follow Up With: Александр Hinds MD When: Call if you do not hear from [facility] Please Follow Up With: [facility] colorectal surgery When: Office to call you Disposition: Home Minutes spent on discharge:: 35 Patient Condition:: Stable Medical Necessity - Tobacco Use Smoking Status: Current every day smoker Tobacco Use: Cigarettes Meaningful Use Info Meaningful Use Diagnoses (Choose all that apply): None applicable <Travis Grant - Last Filed: 11/26/19 16:49> Discharge Date and Diagnosis - Secondary Discharge Diagnosis Chronic Problems (Last Reviewed 11/04/18 @ 07:[address] Ruiz Elaine DO) Crohn's disease (Chronic) Bipolar disorder (Chronic) Intermittent explosive disorder (Chronic) IBS (irritable bowel syndrome) (Chronic) Hemorrhoids (Chronic) Tobacco dependence (Chronic) GERD (gastroesophageal reflux disease) (Chronic) Obesity (Chronic) PTSD (post-traumatic stress disorder) (Chronic) Bipolar disorder (Chronic) Hospital Course and Treatment Summary of Care Provided: This patient was seen in conjunction with ENTRY PROCESSORJenifer. I have independently interviewed and examined the patient and reviewed pertinent history, examination findings, laboratory and plan of management. I have reviewed the note and agree with the documented findings with the few additional points. I In brief, patient is 29-year-old gentleman with history of Crohn's disease diagnosed by colonoscopy biopsy and recurrent diverticulitis, fourth this time came to ER with abdominal pain, failed outpatient therapy. Last time is acute diverticulitis complicated with abscess and has previous history of colovesical fistula which was treated nonoperatively. Patient was seen by surgeon. Has uncomplicated acute diverticulitis at this time. Initially, rayrayp.o.; on IV antibiotic Cipro and Flagyl. Surgeon Dr. Hinds will make a referral to [facility] but clinically [facility] [place] [place] especially for elective sigmoid colectomy. Patient passed good bowel movement. No abdominal pain/tenderness or distention. Started on regular diet. Surgeon recommended discharge home and follow-up in [facility] colorectal surgeon. Other comorbidities include Crohn's disease possible exacerbation, nicotine abuse, obesity and bipolar disorder: On IV Solu-Medrol. As per patient he is on Humira every week but usually the dose is every 2 weeks. Discharge medication reconciliation done. Discharge follow-up instructions completed. Discharge process discussed with the patient and all questions were answered to patient's satisfaction. Total time spent, exact 35 minutes on discharge meds reconciliation, examination, coordination of care with nurses and ancillary staff, review of i maging and blood test and discussion with the patient on follow-up instructions I have discussed my assessment with ENTRY PROCESSORJenifer and orders have been reviewed. - Physical Exam Vitals/I&O's: Vital Signs Temp Pulse Resp BP Pulse Ox 97.4 F L 79 18 148/77 H 99 11/26/19 11:08 11/26/19 11:08 11/26/19 11:08 11/26/19 11:08 11/26/19 11:08 Oxygen Delivery Method Room Air Weight: 271 lb 3.191 oz Body Mass Index (BMI) 36.8 Intake and Output for Last 24 Hours 11/24/19 11/25/19 11/26/19 23:59 23:59 23:59 Intake Total 646.67 / 646.67 1765.00 / 1825.00 2790 / 2790 Balance 646.67 / 646.67 1765.00 / 1825.00 2790 / 2790 Laboratory Results 11/25/19 22:44: POC Glucose 140 H 11/26/19 06:20: POC Glucose 136 H Code Visit Inpatient E&M: 07737 Disch Hosp
--- NOTE | 2019-11-27 15:45 | CASEMGMT ---
JUANA CAMARA Discharge Follow-Up Phone Call. Miri: Jorge Strata: 4 Discharge Date: 11/26/19 Adm Dx: Diverticulitis Call to pt to inquire about how he has been doing since being discharged from the hospital. Pt stated, I've been a little bit better. States he is still having some pain, but it is being alleviated w/pain meds. He states he got the antibiotic prior to being discharged and has been taking it as prescribed. Discussed importance of taking antibiotics until completed. Pt voices understanding. Pt states he has not heard from [facility] yet for an appt. Pt aware he is to call Dr Mullins's office and also states he has [facility]'s main campus number to call if needed. He is aware of Dr Frazier's appt on 11/29. He denies having any questions, concerns, or needs at this time and denies having any questions about the discharge instructions. Henrique GIVENS RN, CM
== END 2019-11-26 12:33 | disposition home or self-care (01) | DRG 392 ==
LOC: ED 14:54 → MS3 17:38
PROVIDERS: Admitting Provider Family Medicine; Emergency Provider Emergency Medicine; PCP Family Medicine; Visit Provider Internal Medicine
DX: K57.32 Diverticulitis of large intestine without perforation or abscess without bleeding (principal); K50.90 Crohn's disease, unspecified, without complications; E66.9 Obesity, unspecified; K21.9 Gastro-esophageal reflux disease without esophagitis; F90.9 Attention-deficit hyperactivity disorder, unspecified type; F31.9 Bipolar disorder, unspecified; F63.81 Intermittent explosive disorder; F17.210 Nicotine dependence, cigarettes, uncomplicated; Z68.36 Body mass index [BMI] 36.0-36.9, adult; K64.9 Unspecified hemorrhoids; F43.10 Post-traumatic stress disorder, unspecified
CPT/HCPCS: 36415; 74019; 74177; 80048; 80053; 81001; 82962; 85025; 96361; 96365; 96366; 96367; 96375; 96376; 97802; 99283; 99285; 99406; J7030; Q9967; A4216; J0744; J2405

== ENCOUNTER 2020-01-08 13:04 | Emergency (ER) | payer MEDICARE, MEDICAID, SELFPAY ==
[2020-01-08 13:04] VITALS: BP 167/118; PULSE 67; RESP 16; TEMP 36.2; O2SAT 99; BMI 39.8
--- NOTE | 2020-01-08 14:00 | CT_ITS ---
STUDY: CT ABDOMEN AND PELVIS WITHOUT CONTRAST REASON FOR EXAM: Male, 30 years old. RLQ PAIN, CROHNS RADIATION DOSAGE (If Supplied By Facility): CTDIvol = ( 20.49 ) mGy, DLP = ( 1487.83 ) mGycm TECHNIQUE: Transaxial images were obtained from the dome of the diaphragm to the symphysis pubis without oral contrast, and without intravenous contrast. Sagittal and coronal images were reconstructed. Individualized dose optimization techniques were used for this CT. COMPARISON: 11/23/2019 FINDINGS: The visualized lung bases are unremarkable. The visualized portions of the heart are within normal limits. Normal liver. Normal gallbladder and extrahepatic biliary system. Normal spleen. Normal pancreas. Normal bilateral adrenal glands. Normal right kidney. Normal left kidney. Normal visualized stomach. Normal small intestine. Normal colon. The appendix is visualized and appears normal. Normal abdominal aorta. Normal inferior vena cava. Normal retroperitoneum. Normal urinary bladder. Normal abdominal wall. Normal osseous structures. CT/Abdomen/Pelvis W IV Cont ONLY IMPRESSION: Normal unenhanced CT of the abdomen and pelvis. Electronically Signed: Jim Gallardo MD at 15:54 EDT Tel , Service support ,
[2020-01-08] MEDS: 0.9% Normal Saline 1,000 ML 1000 ML IV (14:20)
[2020-01-08] MEDS: Morphine 4 MG/ML Syringe IV (14:21)
[2020-01-08] MEDS: Ondansetron 4 MG/2 ML Vial IV (14:21)
[2020-01-08 14:26] LABS: Absolute Neutrophil Count 5.8 X10^3/uL (2.0-7.7); Basophil# 0.01 X10^3/uL; Basophil% 0.1 % (0-1); Eosinophil# 0.43 X10^3/uL; Eosinophils% 5.1 % (0-5); Hematocrit 52.1 % (40-54); Hemoglobin 16.8 g/dL (13.0-16.5); Lymphocyte % 17.9 % (19-41); Mean Corp Hgb Conc 32.2 g/dL (32-36); Mean Corpuscular Hgb 28.5 pg (27.0-32.0); Mean Corpuscular Volume 88.3 fL (80-94); Mean Platelet Vol. 10.9 fl (6.2-12.0); Monocyte# 0.59 X10^3/uL; NRBC Flagged by Analyzer 0 % (0-5); Neutrophil # 5.83 X10^3/uL (2.7-7.7); Neutrophil % 69.7 % (47-70); Platelet Count 262 K/mm3 (150-450); RBC Distribution Width CV 12.6 % (11.6-14.6); White Blood Count 8.4 K/mm3 (4.4-11.0)
[2020-01-08 14:27] LABS: ALB/GLOB Ratio 1.1 RATIO (0.9-2.4); AST(SGOT) 34 U/L (15-37); Alanine Aminotransfer ALT/SGPT 65 U/L (16-61); Albumin, Serum 4.3 g/dL (3.2-5.0); Alkaline Phosphatase 82 U/L (45-117); Anion Gap 5 (5-15); BUN 12 mg/dL (7-18); BUN/Creat Ratio 12.5 RATIO (10-20); Calcium,Total 9.6 mg/dL (8.5-10.1); Chloride 107 mmol/L (98-107); Creatinine, Serum 0.96 mg/dL (0.70-1.30); EST Glomerular Filtration Rate 98 mL/min (>60); Est Glom Filt Rate - Afr Amer 119 mL/min (>60); Estimated Creatinine Clearance 112.51 ml/min; Globulin 3.8 g/dL (2.2-4.2); Glucose 99 mg/dL (74-106); Potassium 4.4 mmol/L (3.5-5.1); Protein, Total 8.1 g/dL (6.4-8.2); Sodium Level 139 mmol/L (136-145)
[2020-01-08 15:30] LABS: Bacteria 0 SEEN /hpf (None Seen); Mucous, Urine 0 SEEN /hpf (<or=2+); Squamous Epithelial Cells - UA 0 SEEN /hpf (0-5); White Blood Cells 0 SEEN /hpf (0-5)
[2020-01-08 15:49] LABS: Color, Urine Yellow (Yellow); Glucose, Dipstick Normal (Normal); Ketone-Dipstick 5 mg/dl (Negative); Leukocyte Esterase-Dipstick 25 /ul (Negative); Nitrite-Dipstick Negative (Negative); Occult Blood-Urine 10 /ul (Negative); Protein-Dipstick 30 mg/dl (Negative); Specific Gravity, Urine 1.015 (1.002-1.030); Urine Bilirubin Dipstick Negative (Negative); Urine Clarity Clear (Clear); Urine Urobilinogen 1 mg/dl (Normal)
[2020-01-08 16:03] LABS: Red Blood Cells-Urine 0-5 SEEN /hpf (0-5)
[2020-01-08] MEDS: MethylPREDNISolone 125 MG/2 ML Vial IV (16:17)
[2020-01-08 16:19] VITALS: BP 138/85; PULSE 75; RESP 16; O2SAT 97
[2020-01-08 16:20] VITALS: RESP 17
--- NOTE | 2020-01-08 16:20 | ED.DCSUM_ITS ---
History of Present Illness Chief Complaint: Abd Pain Informant: Patient - Abdominal Pain/Flank Pain Onset: Days - 4-6 Context: Gradual Onset Timing: Continuous Quality: Aching Location: RLQ Current Severity: Severe Maximum Severity: Severe Worsened by: Movement Relieved by: Nothing - Nausea/Vomiting/Emesis GI Symptom: Nausea. Negative for: Vomiting - Diarrhea/Melena/Hematochezia GI Symptom: Diarrhea, Hematochezia - small amounts, here and there. Negative for: Melena Severity: Severe - 10-20 per day Associated Symptoms: Negative for: Dysuria, Frequency, Hematuria, Urgency Narrative: Patient states he has had a colonoscopy with biopsies confirming Crohn's disease, has been on weekly Humira 40 mg injections at home which has kept it fairly well controlled, however given the recent national coronavirus emergency, he has not had an injection in 3 or 4 weeks, he called the pharmacist at his doctor's office where he gets it, and they said it was ordered and not deliver to him for unknown reasons. He states he is able to inject himself at home which he usually does. He is on no medications otherwise. He has had no fevers or respiratory symptoms recently. He has had no prior abdominal surgeries. He was recently admitted for diverticulitis, that is better and he followed up with his surgeon as directed with [facility], who wants to get a special outpatient CT scan, he has not had that yet. - Past Medical History (1) Diverticulitis Status: Suspected (2) Bipolar disorder Status: Chronic (3) Crohn's disease Status: Chronic (4) GERD (gastroesophageal reflux disease) Status: Chronic (5) Hemorrhoids Status: Chronic (6) IBS (irritable bowel syndrome) Status: Chronic (7) Intermittent explosive disorder Status: Chronic (8) PTSD (post-traumatic stress disorder) Status: Chronic Past Medical History - Allergies and Home Meds Allergies/Adverse Reactions: Allergies dextromethorphan HBr [From NyQuil] Allergy (Verified 01/08/20 13:06) Anaphylaxis doxylamine [From NyQuil] Allergy (Verified 01/08/20 13:06) Anaphylaxis poison mimi extract [Poison Mimi Extract] Allergy (Verified 01/08/20 13:06) Anaphylaxis pseudoephedrine HCl [From NyQuil] Allergy (Verified 01/08/20 13:06) Anaphylaxis venom-honey bee [bee venom (honey bee)] Allergy (Verified 01/08/20 13:06) Anaphylaxis MUSHROOMS Allergy (Uncoded 01/08/20 13:06) Anaphylaxis Primary Care Physician: Hudson Frazier DO [Primary Care Provider] - Surgical History: - - testicular surgery on cyst--nonresectable., left foot Smoking Status: Current every day smoker Drugs: None - Family History Paternal Family History: Family History (Last Updated 11/04/18 @ 07:[address] Ruiz Elaine DO) Other Ulcerative colitis Family History: Reports: Heart Disease, - - murdered Maternal Family History: Family History (Last Updated 11/04/18 @ 07:[address] Ruiz Elaine DO) Other Ulcerative colitis Family History: Reports: No pertinent history Review of Systems General: Reports: Malaise. Denies: Chills, Fever, Sweats Eyes: Denies: Visual changes - bilaterally, Diplopia ENT: Denies: Bilateral ear pain, Rhinorrhea, Sore throat Cardiovascular: Denies: Chest pain, Palpitations Respiratory: Denies: Dyspnea, Cough, Dyspnea on exertion Gastrointestinal: Reports: Abdominal pain, Nausea, Diarrhea, Hematochezia. Denies: Vomiting, Melena Genitourinary: Denies: Dysuria, Hematuria, Frequency Musculoskeletal: Denies: Neck pain, Back pain, Swelling, Extremity Pain Skin: Denies: Rash, Wounds Neurological: Denies: Headache, Weakness, Numbness Physical Exam Vital Signs/Narrative: Vital Signs Temp Pulse Resp BP Pulse Ox 01/08/20 16:19 75 16 138/85 H 97 01/08/20 13:04 97.1 F L 67 16 167/118 H 99 Inital Vital Signs reviewed: Yes General: Well nourished, Well developed, No Acute Distress Head: Normocephalic, Atraumatic Eyes: Perrl, EOMI ENT: Moist mucous membranes, No rhinorrhea Neck: Supple, Nontender Cardiovascular: Regular rate, Regular rhythm, No murmurs Respiratory: No distress, CTA bilaterally, Chest nontender Abdomen: Soft, Nondistended, No masses, Tender - Throughout right lower quadrant only. Otherwise nontender., Hypoactive bowel sounds. Negative for: Guarding, Rebound tenderness Back: Nontender, Normal Inspection. Negative for: CVA tenderness Extremities: Nontender, No edema. Negative for: Calf Tenderness Skin: Normal color, No rash, No Trauma Neurological: Alert, Oriented x3, Cranial nerves II-XII grossly intact, Normal Strength, Normal Sensation, Normal Gait Psychological: Normal Mood, - - Anxious Diagnostic/Tx/Re-eval Impressions Abdomen/Pelvis CT 01/08/20 14:00 IMPRESSION: Normal unenhanced CT of the abdomen and pelvis. Electronically Signed: Jim Gallardo MD at 15:54 EDT Tel , Service support , 01/08/20 14:00 Abdomen/Pelvis W IV Cont ONLY [CT] Stat Laboratory Results 01/08/20 01/08/20 01/08/20 13:55 13:55 15:20 WBC 8.4 RBC 5.90 Hgb 16.8 H Hct 52.1 MCV 88.3 MCH 28.5 MCHC 32.2 RDW Std Deviation 41.0 RDW Coeff of Bre 12.6 Plt Count 262 MPV 10.9 Immature Gran % (Auto) 0.200 Neut % (Auto) 69.7 Lymph % (Auto) 17.9 L [place] % (Auto) 7.0 Eos % (Auto) 5.1 H Baso % (Auto) 0.1 Absolute Neuts (auto) 5.8 Absolute Lymphs (auto) 1.50 Nucleated RBC % 0 Sodium 139 Potassium 4.4 Chloride 107 Carbon Dioxide 27.0 Anion Gap 5 BUN 12 Creatinine 0.96 Estim Creat Clear Calc 112.51 Est GFR (MDRD) Af Amer 119 Est GFR (MDRD) Non-Af 98 BUN/Creatinine Ratio 12.5 Glucose 99 Calcium 9.6 Total Bilirubin 0.40 AST 34 ALT 65 H Alkaline Phosphatase 82 Total Protein 8.1 Albumin 4.3 Globulin 3.8 Albumin/Globulin Ratio 1.1 Urine Color Yellow Urine Clarity Clear Urine pH 6.0 Ur Specific [place] 1.015 Urine Protein 30 H Urine Glucose (UA) Normal Urine Ketones 5 H Urine Occult Blood 10 H Urine Nitrite Negative Urine Bilirubin Negative Urine Urobilinogen 1 H Ur Leukocyte Esterase 25 H Urine RBC 0-5 SEEN Urine WBC 0 SEEN Ur Squamous Epith Cells 0 SEEN Urine Bacteria 0 SEEN Urine Mucus 0 SEEN - Medical Decision Making Work-up as above is very reassuring, CT shows no acute abnormalities or signs of any complications Crohn's. Certainly he can have a Crohn's flareup and a normal CT. I suspect that is what is going on, most likely due to the fact that he has not had his maintenance medication. He feels better after IV fluids morphine, Zofran. He is stable for discharge home and he agrees to that. The plan is to give him a short prescription for pain medication, he was given Solu- Medrol here and a prescription for prednisone with taper, a temporary prescription for some Humira, and he will follow-up. We did order a C. difficile to be sent here but he did not have a bowel movement while here so that will be canceled. If he does not feel better, he should have that tested for and covered, we discussed this and he will follow-up. ED Disposition - Plan for ED Patient: Disposition: Home or Assisted Living Diagnosis: Exacerbation of Crohn's disease Instructions: ED Crohn's Disease Prescriptions: Adalimumab [Humira Crohn's] 40 mg SQ QWEEK #1 box Transmission Status: Pending to [facility] Hydrocodone Bitart/Apap 5-325 [[place] 5MG-325MG] 1 tablet PO Q4H PRN PRN 2 Days #10 tablet PRN Reason: Pain Transmission Status: Sent to [facility] Prednisone 10 mg PO UD #31 tab Transmission Status: Pending to [facility] Referrals: Hudson Frazier DO [Primary Care Provider] - 1 Week if not improving (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
== END 2020-01-08 16:53 | disposition home or self-care (01) ==
PROVIDERS: Emergency Provider Emergency Medicine; PCP Family Medicine
DX: K50.90 Crohn's disease, unspecified, without complications (principal); K21.9 Gastro-esophageal reflux disease without esophagitis; F31.9 Bipolar disorder, unspecified; F43.10 Post-traumatic stress disorder, unspecified; F17.200 Nicotine dependence, unspecified, uncomplicated; Z79.899 Other long term (current) drug therapy
CPT/HCPCS: 74177; 80053; 81001; 85025; 96361; 96374; 96375; 99284; J7030; Q9967; A4216; J2405

== ENCOUNTER 2020-01-15 14:38 | Emergency (ER) | payer MEDICARE, MEDICAID, SELFPAY ==
[2020-01-15 14:38] VITALS: BP 141/99; PULSE 105; RESP 18; TEMP 36.7; O2SAT 98; BMI 39.9
--- NOTE | 2020-01-15 15:10 | ED.VISSUMM ---
- ER Visit Summary Date of Service: 01/15/20 Chief Complaint: [Dysuria] History of Present Illness: The patient is a 30 M [presents to the emergency department with symptoms of dysuria as well as frequency that started about a week ago. Patient denies fever. Patient states that he has had urinary tract infections in the past. Patient states that he has a Flagyl antibiotic at home on hand for as needed basis and he started taking that but does not seem to have improved. Patient denies any nausea or vomiting. Patient does describe suprapubic pain. At times while urinating he will have some pain into his rectum. He denies any bloody stools. Patient also with history of GERD, bipolar disorder, PTSD, and Crohn's.] Physical Examination: [HEENT-PERRLA, EOMI. Cranial nerves II through XII grossly intact. TMs clear. Mucous membranes moist. No adenopathy. Cardiovascular-regular rate and rhythm without murmur or ectopy Lungs-clear to auscultation, chest wall stable without crepitus or subcu emphysema Abdomen-normoactive bowel sounds, soft. Patient has tenderness to palpation over the suprapubic region with some mild guarding. There is no rebound, rigidity, or peritoneal signs. Extremities-intact ?4, normal range of motion, normal pulses, atraumatic] Test Results: [Urinalysis ordered] Emergency Department Course and Treatment: [Patient was unable to give a urine specimen and after 2 hours walked out before treatment completion. Patient was given water and attempt encouraged him to urinate. Patient refused straight cath. Patient apparently became upset and stated that his bipolar was acting up per nurse due to the fact that he was hearing and unruly patient in another room and thought he might become violent. I was not aware the patient left until after he had left the emergency department.] Treatment Plan: [] Disposition: [Left prior to treatment completion] Impression: [Dysuria] This note was generated with [employer] dictation software. It may contain incorrect words, spelling, and punctuation that were not noted in review of the chart prior to signing ED Disposition - Plan for ED Patient: Referrals: Hudson Frazier, [Primary Care Provider] -
--- NOTE | 2020-01-15 16:56 | ED.RN ---
pt calls out for rn to room. this rn enters room. pt starts screaming i don't think you understand, i am bipolar and have aggression issues. i am about to fuck one of you up. this rn tried to reassure pt. pt states i can hear her screaming ( referring to another pt). pt reassured that he was safe. pt again threatens harm to the department staff. pt allowed to walk out
== END 2020-01-15 17:16 | disposition left against medical advice (07) ==
LOC: ED 15:46
PROVIDERS: Emergency Provider Emergency Medicine; PCP Family Medicine
DX: R30.0 Dysuria (principal); F43.10 Post-traumatic stress disorder, unspecified; K50.90 Crohn's disease, unspecified, without complications; F31.9 Bipolar disorder, unspecified; K21.9 Gastro-esophageal reflux disease without esophagitis; Z87.440 Personal history of urinary (tract) infections; Z79.899 Other long term (current) drug therapy
CPT/HCPCS: 99281

== ENCOUNTER 2020-01-15 22:34 | Inpatient (IN) | payer MEDICARE, MEDICAID, SELFPAY ==
[2020-01-15 14:38] VITALS: BMI 39.9
[2020-01-15 22:35] VITALS: BP 162/116; PULSE 98; RESP 20; TEMP 37.2; O2SAT 99; BMI 40.3
--- NOTE | 2020-01-15 23:01 | ED.VIS.GEN ---
History of Present Illness Chief Complaint: Complaint Informant: Patient Onset: Weeks Context: Gradual Onset Timing: Continuous Quality: ache, burning Location: suprapubic Current Severity: Severe Maximum Severity: Severe Worsened by: urinating, having BM Relieved by: nothing Associated Symptoms: none; no n/v/d/BRBPR, back pain, fevers Narrative: Patient was evaluated here earlier for the same symptoms, but he eloped. He returns wanting help with the same problem again. He states nothing is new. States he thinks he may have a bladder infection, he has had that before. He was seen here somewhere around a week ago by myself for what seemed to be Crohn's symptoms. He states he was unable to fill or get the Humira that we tried to prescribe for him, he states he called his doctor's office and his pharmacy and is still having issues getting his Humira to keep his Crohn's under control. He did however fill the Percocet and the prednisone. He states as a result the symptoms seem much better and his diarrhea with blood resolved and still is resolved and context of these increasing symptoms for the past week. He denies any hematuria or urinary retention. - Past Medical History (1) Bipolar disorder Status: Chronic (2) Crohn's disease Status: Chronic (3) GERD (gastroesophageal reflux disease) Status: Chronic (4) Hemorrhoids Status: Chronic (5) IBS (irritable bowel syndrome) Status: Chronic (6) Intermittent explosive disorder Status: Chronic (7) PTSD (post-traumatic stress disorder) Status: Chronic (8) Tobacco dependence Status: Chronic (9) Diverticulitis Status: Suspected (10) Colonic diverticular abscess Status: Resolved Past Medical History - Allergies and Home Meds Allergies/Adverse Reactions: Allergies dextromethorphan HBr [From NyQuil] Allergy (Verified 01/15/20 22:38) Anaphylaxis doxylamine [From NyQuil] Allergy (Verified 01/15/20 22:38) Anaphylaxis poison mimi extract [Poison Mimi Extract] Allergy (Verified 01/15/20 22:38) Anaphylaxis pseudoephedrine HCl [From NyQuil] Allergy (Verified 01/15/20 22:38) Anaphylaxis venom-honey bee [bee venom (honey bee)] Allergy (Verified 01/15/20 22:38) Anaphylaxis MUSHROOMS Allergy (Uncoded 01/15/20 14:41) Anaphylaxis Primary Care Physician: Hudson Frazier DO [Primary Care Provider] - Surgical History: - - testicular surgery on cyst--nonresectable., left foot Lives: Alone Smoking Status: Current every day smoker - Family History Paternal Family History: Family History (Last Updated 11/04/18 @ 07:[address] Ruiz Elaine DO) Other Ulcerative colitis Family History: Reports: Heart Disease, - - murdered Maternal Family History: Family History (Last Updated 11/04/18 @ 07:[address] Ruiz Elaine DO) Other Ulcerative colitis Family History: Reports: No pertinent history Review of Systems General: Denies: Chills, Fever, Sweats Eyes: Denies: Visual changes - bilaterally, Diplopia ENT: Denies: Rhinorrhea, Sore throat Cardiovascular: Denies: Chest pain, Palpitations Respiratory: Denies: Dyspnea, Cough, Dyspnea on exertion Gastrointestinal: Reports: Abdominal pain. Denies: Nausea, Vomiting, Diarrhea, Melena, Hematochezia Genitourinary: Reports: Dysuria. Denies: Hematuria, Frequency Musculoskeletal: Denies: Neck pain, Back pain, Swelling, Extremity Pain Skin: Denies: Rash, Wounds Neurological: Denies: Headache, Weakness, Numbness Psych: Reports: Anxiety. Denies: Suicidal thoughts Physical Exam Vital Signs/Narrative: Vital Signs Temp Pulse Resp BP Pulse Ox 01/15/20 22:35 99 F 98 20 H 162/116 H 99 Inital Vital Signs reviewed: Yes General: Well nourished, Well developed, No Acute Distress Head: Normocephalic, Atraumatic Eyes: Perrl, EOMI ENT: Moist mucous membranes, No rhinorrhea Neck: Supple, Nontender Cardiovascular: Regular rate, Regular rhythm, No murmurs Respiratory: No distress, CTA bilaterally, Chest nontender Abdomen: Soft, Nondistended, Normal bowel sounds, No masses, Tender - Suprapubic and right greater than left pelvis, otherwise benign, Guarding - Voluntary suprapubic. Negative for: Rebound tenderness Back: Nontender, Normal Inspection. Negative for: CVA tenderness Extremities: Nontender, No edema Skin: Normal color, No rash, No Trauma Neurological: Alert, Oriented x3, Cranial nerves II-XII grossly intact, Normal Strength, Normal Sensation Psychological: Normal Mood, Tearful - And anxious Diagnostic/Tx/Re-eval Impressions Abdomen/Pelvis CT 01/15/20 23:37 IMPRESSION: Sigmoid diverticulitis as described. No drainable abscess. No bowel obstruction. Abdominal viscera are unremarkable. Electronically Signed: Dalia Ashley MD at 0:49 EDT , Service support , 01/15/20 23:37 Abdomen/Pelvis without Cont [CT] Stat Laboratory Results 01/15/20 01/15/20 01/15/20 22:45 22:45 23:00 WBC 15.2 H RBC 5.55 Hgb 16.2 Hct 48.9 MCV 88.1 MCH 29.2 MCHC 33.1 RDW Std Deviation 41.8 RDW Coeff of Bre 13.0 Plt Count 292 MPV 10.5 Immature Gran % (Auto) 0.600 Neut % (Auto) 74.3 H Lymph % (Auto) 14.0 L [place] % (Auto) 8.9 Eos % (Auto) 2.0 Baso % (Auto) 0.2 Absolute Neuts (auto) 11.3 H Absolute Lymphs (auto) 2.13 Nucleated RBC % 0 Sodium 141 Potassium 3.8 Chloride 107 Carbon Dioxide 27.0 Anion Gap 7 BUN 12 Creatinine 0.84 Estim Creat Clear Calc 128.59 Est GFR (MDRD) Af Amer 137 Est GFR (MDRD) Non-Af 114 BUN/Creatinine Ratio 14.2 Glucose 101 Calcium 9.2 Urine Color Yellow Urine Clarity Sl. Cloudy Urine pH 8.0 Ur Specific [place] 1.015 Urine Protein 15 H Urine Glucose (UA) 100 H Urine Ketones Negative Urine Occult Blood Negative Urine Nitrite Negative Urine Bilirubin Negative Urine Urobilinogen 1 H Ur Leukocyte Esterase Negative Urine RBC 0 SEEN Urine WBC 0 SEEN Ur Squamous Epith Cells 0 SEEN Amorphous Sediment 1+ Urine Bacteria RARE Urine Mucus 0 SEEN - Medical Decision Making Urinalysis returned fairly unremarkable, so CT scan was performed given this patient's history of Crohn's and diverticulitis. He has a leukocytosis, and CT shows diverticulitis without abscess. Patient's pain was treated with morphine, he is in a lot of pain he states, and when offered admission he prefers to be admitted because he is in so much pain despite analgesics. Antibiotics ordered, more pain medication, discussed with hospitalist for admission. ED Disposition - Plan for ED Patient: Disposition: Acute Care Hospital [facility] Diagnosis: Diverticulitis, Intractable abdominal pain Referrals: Hudson Frazier DO [Primary Care Provider] -
[2020-01-15 23:07] LABS: Mucous, Urine 0 SEEN /hpf (<or=2+); Red Blood Cells-Urine 0 SEEN /hpf (0-5); Squamous Epithelial Cells - UA 0 SEEN /hpf (0-5); White Blood Cells 0 SEEN /hpf (0-5)
[2020-01-15 23:13] LABS: Color, Urine Yellow (Yellow); Glucose, Dipstick 100 mg/dl (Normal); Ketone-Dipstick Negative (Negative); Leukocyte Esterase-Dipstick Negative /ul (Negative); Nitrite-Dipstick Negative (Negative); Occult Blood-Urine Negative /ul (Negative); Protein-Dipstick 15 mg/dl (Negative); Specific Gravity, Urine 1.015 (1.002-1.030); Urine Bilirubin Dipstick Negative (Negative); Urine Clarity Sl. Cloudy (Clear); Urine Urobilinogen 1 mg/dl (Normal)
[2020-01-15 23:27] LABS: Amorphous Sediment 1+; Bacteria RARE /hpf (None Seen)
--- NOTE | 2020-01-15 23:37 | CT_ITS ---
STUDY: CT ABDOMEN AND PELVIS WITHOUT CONTRAST REASON FOR EXAM: Male, 30 years old. LOWER ABD PAIN, PAIN WITH URINATION, HESITANCY, RETENTION, DIARRHEA WITH BLOOD LAST WEEK. H/O DIVERTICULITIS, IBS, CHRONS RADIATION DOSAGE (If Supplied By Facility): CTDIvol = ( 19.75 ) mGy, DLP = ( 1041.32 ) mGycm TECHNIQUE: Transaxial images were obtained from the dome of the diaphragm to the symphysis pubis without oral contrast, and without intravenous contrast. Sagittal and coronal images were reconstructed. Individualized dose optimization techniques were used for this CT. COMPARISON: 01/08/2020. FINDINGS: The visualized lung bases are unremarkable. The visualized portions of the heart are within normal limits. Normal liver. Normal gallbladder and extrahepatic biliary system. Normal spleen. Normal pancreas. Normal bilateral adrenal glands. Normal right kidney. Normal left kidney. Normal visualized stomach. Normal small intestine. There is diverticulosis, more significant along the mid sigmoid where there is thickening of the wall with inflammatory changes of the pelvic peritoneum consistent with diverticulitis. No drainable abscess. The appendix is visualized and appears normal. Normal abdominal aorta. Normal inferior vena cava. Normal retroperitoneum. Normal urinary bladder. There are 2 punctate droplets of air on axial image 137, series 2 which could represent volume averaging related to sigmoid diverticuli versus areas of microperforation. There are surrounding inflammatory changes with no evidence of free air or other sites of extraluminal air. Normal abdominal wall. Normal osseous structures. CT/Abdomen/Pelvis without Cont IMPRESSION: Sigmoid diverticulitis as described. No drainable abscess. No bowel obstruction. Abdominal viscera are unremarkable. Electronically Signed: Dalia Ashley MD at 0:49 EDT , Service support ,
[2020-01-15] MEDS: Ketorolac 30 MG/ML Syringe IV (23:48)
[2020-01-15] MEDS: Morphine 4 MG/ML Syringe IV (23:49)
[2020-01-15 23:51] LABS: Absolute Lymphocyte Count 2.13 X10^3/uL (0.83-4.51); Absolute Neutrophil Count 11.3 X10^3/uL (2.0-7.7); Basophil# 0.03 X10^3/uL; Basophil% 0.2 % (0-1); Hematocrit 48.9 % (40-54); Hemoglobin 16.2 g/dL (13.0-16.5); Lymphocyte # 2.13 X10^3/ul (4.0); Mean Corp Hgb Conc 33.1 g/dL (32-36); Mean Corpuscular Hgb 29.2 pg (27.0-32.0); Mean Corpuscular Volume 88.1 fL (80-94); Mean Platelet Vol. 10.5 fl (6.2-12.0); Monocyte# 1.35 X10^3/uL; Monocyte% 8.9 % (0-10); NRBC Flagged by Analyzer 0 % (0-5); Neutrophil % 74.3 % (47-70); Platelet Count 292 K/mm3 (150-450); RBC Distribution Width SD 41.8 fl (35.1-43.9); Red Blood Count 5.55 M/mm3 (4.6-6.2); White Blood Count 15.2 K/mm3 (4.4-11.0)
[2020-01-15 23:59] LABS: Anion Gap 7 (5-15); BUN 12 mg/dL (7-18); BUN/Creat Ratio 14.2 RATIO (10-20); Calcium,Total 9.2 mg/dL (8.5-10.1); Chloride 107 mmol/L (98-107); Creatinine, Serum 0.84 mg/dL (0.70-1.30); EST Glomerular Filtration Rate 114 mL/min (>60); Est Glom Filt Rate - Afr Amer 137 mL/min (>60); Estimated Creatinine Clearance 128.59 ml/min; Glucose 101 mg/dL (74-106); Potassium 3.8 mmol/L (3.5-5.1); Sodium Level 141 mmol/L (136-145)
[2020-01-16] VITALS (9 sets, daily range): BP systolic 110–141; BP diastolic 63–111; PULSE 70–95; RESP 14–19; TEMP 36.5–36.9; O2SAT 95–100; BMI 39.0
[2020-01-16] MEDS: Morphine 4 MG/ML Syringe IV ×4 (01:23→11:29)
--- NOTE | 2020-01-16 01:26 | PCM.HP.STD ---
History of Present Illness Date of Admission: 01/16/20 Chief Complaint: Abdominal pain The patient is a 30 year old M with a PMH as below who presents with abdominal pain. He was seen about a week ago with similar complaints and improved with prednisone, however he comes in with worsening abdominal pain he says mostly on the right side of his abdomen. No diarrhea or bloody stool, but he also had some burning with urination and said that because of his concerns for the coronavirus if he delayed coming in. No fevers or chills. He does have a leukocytosis however he is on prednisone for possible Crohn's history. No lightheadedness or dizziness. Past Medical History Past Medical History (Chronic Problems): Chronic Problems (Last Reviewed 11/04/18 @ 07:[address] Ruiz Elaine DO) Crohn's disease (Chronic) Bipolar disorder (Chronic) Intermittent explosive disorder (Chronic) IBS (irritable bowel syndrome) (Chronic) Hemorrhoids (Chronic) Tobacco dependence (Chronic) GERD (gastroesophageal reflux disease) (Chronic) Obesity (Chronic) PTSD (post-traumatic stress disorder) (Chronic) Bipolar disorder (Chronic) Medical History: Medical History (Last Reviewed 11/04/18 @ 07:[address] 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 Allergies dextromethorphan HBr [From NyQuil] Allergy (Verified 01/15/20 22:38) Anaphylaxis doxylamine [From NyQuil] Allergy (Verified 01/15/20 22:38) Anaphylaxis poison mimi extract [Poison Mimi Extract] Allergy (Verified 01/15/20 22:38) Anaphylaxis pseudoephedrine HCl [From NyQuil] Allergy (Verified 01/15/20 22:38) Anaphylaxis venom-honey bee [bee venom (honey bee)] Allergy (Verified 01/15/20 22:38) Anaphylaxis MUSHROOMS Allergy (Uncoded 01/15/20 14:41) Anaphylaxis Home Medications: Ambulatory Orders Medication Instructions Recorded hydrOXYzine pamoate capsule 50 mg PO BID PRN 08/04/19 [Vistaril pamoate capsule] Ondansetron HCl [Zofran] 4 mg PO Q8H PRN PRN 11/23/19 Acetaminophen 2,000 mg PO DAILY@1030 11/24/19 Omeprazole [Prilosec] 20 mg PO DAILY 11/24/19 Gabapentin [Neurontin] 100 mg PO TID 01/08/20 Prednisone 10 mg PO UD #31 tab 01/08/20 Tizanidine HCl [Zanaflex] 4 mg PO QHS 01/08/20 Surgical History: - - testicular surgery on cyst--nonresectable., left foot Psychiatric History: Anxiety, Bipolar, Post traumatic stress, - - Multiple personality disorder, Lives: Alone Smoking Status: Current every day smoker Tobacco Use: Cigarettes Alcohol: None Drugs: None - *Family History Paternal Family History: Family History (Last Updated 11/04/18 @ 07:[address] Ruiz Elaine DO) Other Ulcerative colitis History Items: Heart Disease, - - murdered Maternal Family History: Family History (Last Updated 11/04/18 @ 07:[address] Ruiz Elaine DO) Other Ulcerative colitis History Items: No pertinent history Review of Systems Constitutional: Denies: Chills, Fever, Weight Change HEENT: Denies: Head Aches, Sinus Congestion, Sinus Drainage Cardiovascular: Denies: Chest Pain, Palpitations Respiratory: Denies: Cough, Shortness of breath at rest, Sputum production Gastrointestinal: Reports: Abdominal Pain. Denies: Nausea, Vomiting Genitourinary: Reports: Dysuria Musculoskeletal: Denies: Joint Pain, Joint Tenderness Skin: Denies: Rash, Wounds Neurological: Denies: Numbness, Tingling, Focal weakness Psychiatric: Denies: Anxiety, Depression, Homicidal Ideations, Suicidal Ideations Hematologic/ Lymphatic: Denies: Easy Bruising, Easy Bleeding VTE Information - Inpt Only VTE Present on Admission: No Patient Problems: Active and Suspected Problems (Last Reviewed 11/04/18 @ 07:[address] Ruiz Elaine DO) Diverticulitis (Acute) Intractable abdominal pain (Acute) - Physical Exam Vitals/I&O's: Vital Signs Temp Pulse Resp BP Pulse Ox 98.2 F 95 18 141/111 H 99 01/16/20 00:26 01/16/20 00:26 01/16/20 00:26 01/16/20 00:26 01/16/20 00:26 Oxygen Delivery Method Room Air Weight: 273 lb 2.444 oz Body Mass Index (BMI) 40.3 General: Alert, Oriented x3, Cooperative, No apparent distress HEENT: Atraumatic, PERRLA, EOMI, Normocephalic Oral: Dry Mucosa Neck: Supple, No JVD Lungs: Clear to auscultation, Normal air movement, No rhonchi, No wheeze, No rales Cardiovascular: Regular rate, Regular Rhythm, Normal S1, Normal S2, No murmurs Abdomen: Soft, Non-Distended, No Hepato-splenomegaly, Obese, Tender - Bilateral lower quadrants and right upper quadrant Extremities: No edema, Capillary Refill Less than 3 Seconds Skin: No rashes, No breakdown Neurological: Neuro grossly intact, Sensory exam intact to light touch and pain Psych/Mental Status: Normal Affect, Appropriate Laboratory Results 01/15/20 22:45: WBC 15.2 H, RBC 5.55, Hgb 16.2, Hct 48.9, MCV 88.1, MCH 29.2, MCHC 33.1, RDW Std Deviation 41.8, RDW Coeff of Bre 13.0, Plt Count 292, MPV 10.5, Immature Gran % (Auto) 0.600, Neut % (Auto) 74.3 H, Lymph % (Auto) 14.0 L, [place] % (Auto) 8.9, Eos % (Auto) 2.0, Baso % (Auto) 0.2, Absolute Neuts (auto) 11.3 H, Absolute Lymphs (auto) 2.13, Nucleated RBC % 0 01/15/20 22:45: Sodium 141, Potassium 3.8, Chloride 107, Carbon Dioxide 27.0, Anion Gap 7, BUN 12, Creatinine 0.84, Estim Creat Clear Calc 128.59, Est GFR (MDRD) Af Amer 137, Est GFR (MDRD) Non-Af 114, BUN/Creatinine Ratio 14.2, Glucose 101, Calcium 9.2 01/15/20 23:00: Urine Color Yellow, Urine Clarity Sl. Cloudy, Urine pH 8.0, Ur Specific [place] 1.015, Urine Protein 15 H, Urine Glucose (UA) 100 H, Urine Ketones Negative, Urine Occult Blood Negative, Urine Nitrite Negative, Urine Bilirubin Negative, Urine Urobilinogen 1 H, Ur Leukocyte Esterase Negative, Urine RBC 0 SEEN, Urine WBC 0 SEEN, Ur Squamous Epith Cells 0 SEEN, Amorphous Sediment 1+, Urine Bacteria RARE, Urine Mucus 0 SEEN Current Medications Metronidazole (Flagyl) 500 mg in 100 mls @ 100 mls/hr IV X1 ONE Stop: 01/16/20 02:22 Ciprofloxacin (Cipro) 400 mg in 200 mls @ 200 mls/hr IV X1 ONE Stop: 01/16/20 02:22 Assessment/Plan All Active Problems (Last Reviewed 11/04/18 @ 07:[address] Ruiz Elaine, DO) Diverticulitis (Acute) Intractable abdominal pain (Acute) Colonic diverticular abscess (Resolved) Hypokalemia (Acute) Abscess of sigmoid colon (Acute) 1. Acute sigmoid diverticulitis/possible Crohn's versus ulcerative colitis -He says that he has a history of Crohn's but now is not sure if he believes that or not, he does have an extensive psychiatric history as well. States that most of his testing was done either in [place] or in [place] -Start IV Cipro and Flagyl -N.p.o. -IV fluids -Morphine for pain control -Continue with his home prednisone, this is likely the cause of his elevated leukocytosis given that he is afebrile and no other signs of infection -UA is unremarkable does not indicate a UTI 2. PTSD/bipolar -Stable -Continue with gabapentin, Vistaril, tizanidine 3. GERD -Stable -Continue with PPI DVT: Lovenox Inpatient E&M: 25301 Init Hosp L2
[2020-01-16] MEDS: Ciprofloxacin 400 MG/200 ML BAG 200 MG IV ×2 (01:30→10:12)
[2020-01-16] MEDS: 0.9% Saline Lock 10 ML Syringe IV ×6 (03:37→19:42)
[2020-01-16] MEDS: Ondansetron 4 MG/2 ML Vial IV ×2 (03:38→11:28)
[2020-01-16] MEDS: 0.9% Normal Saline 1,000 ML 125 ML IV ×3 (03:41→22:55)
[2020-01-16] MEDS: metroNIDAZOLE 500 MG/100 ML BAG 100 MG IV ×2 (03:48→15:08)
[2020-01-16 07:01] LABS: Absolute Neutrophil Count 8.5 X10^3/uL (2.0-7.7); Basophil# 0.02 X10^3/uL; Basophil% 0.2 % (0-1); Eosinophil# 0.24 X10^3/uL; Eosinophils% 2.1 % (0-5); Hemoglobin 15.3 g/dL (13.0-16.5); Lymphocyte % 16.3 % (19-41); Mean Corp Hgb Conc 32.6 g/dL (32-36); Mean Corpuscular Hgb 29.3 pg (27.0-32.0); Mean Corpuscular Volume 89.9 fL (80-94); Mean Platelet Vol. 10.4 fl (6.2-12.0); Monocyte# 0.92 X10^3/uL; Monocyte% 7.9 % (0-10); NRBC Flagged by Analyzer 0 % (0-5); Neutrophil # 8.48 X10^3/uL (2.7-7.7); Neutrophil % 72.8 % (47-70); Platelet Count 238 K/mm3 (150-450); RBC Distribution Width CV 13.2 % (11.6-14.6); RBC Distribution Width SD 43.2 fl (35.1-43.9); Red Blood Count 5.23 M/mm3 (4.6-6.2); White Blood Count 11.6 K/mm3 (4.4-11.0)
[2020-01-16 07:22] LABS: Anion Gap 5 (5-15); BUN 13 mg/dL (7-18); BUN/Creat Ratio 16.5 RATIO (10-20); Calcium,Total 8.3 mg/dL (8.5-10.1); Chloride 106 mmol/L (98-107); Creatinine, Serum 0.79 mg/dL (0.70-1.30); EST Glomerular Filtration Rate 123 mL/min (>60); Est Glom Filt Rate - Afr Amer 149 mL/min (>60); Estimated Creatinine Clearance 136.73 ml/min; Glucose 83 mg/dL (74-106); Potassium 3.6 mmol/L (3.5-5.1); Sodium Level 139 mmol/L (136-145)
[2020-01-16] MEDS: Enoxaparin 40 MG/0.4 ML Syringe SC (10:18)
--- NOTE | 2020-01-16 10:35 | CASEMGMT ---
RN JAX Face to Face with patient for initial transition planning/care coordination assessment. RN CM introduced self and role at [facility]. Patient lying in bed, alert and oriented. Patient willing to participate in assessment and is able to answer all questions appropriately. Care providers, pharmacy, and demographics verified. Patient wishes to discharge home, denies need for home health at this time. Patient states he has no further needs or concerns at this time. CM to follow for discharge planning needs that may arise. PCP: Karin Specialists: [facility] Pharmacy: [facility] Insurance: [employer] Prescription Benefit: yes Living Will/HPOA: none LNOK: Living Arrangements: Patient lives with in mobile home with 3 steps and railing to enter the home. Patient independent at home. Transportation: DME/HHC: Patient has cpap at home. Disposition Plan: Patient to discharge home with family support and follow-up plans in place. Louise GIVENS, RN, CM
--- NOTE | 2020-01-16 11:26 | PCM.PN.HOSP ---
Patient Problems: Active and Suspected Problems (Last Reviewed 11/04/18 @ 07:[address] Ruiz Elaine, DO) Diverticulitis (Acute) Intractable abdominal pain (Acute) Subjective: Patient seen and examined. He was admitted with a complaint of abdominal pain. He is being Managed for sigmoid diverticulitis. Seen and examined. She still complains of significant lower abdominal pain. He denies any fever or chills, any nausea vomiting or diarrhea. He also complains of burning with urination. Patient states he used to be on Humira but has not had it in more than a month because he is not been receiving his usual supply from his real estate analyst. According to him, he has tried contacting his real estate analyst office but to no avail. Review of systems otherwise negative. Labs and vitals reviewed. White cell count is down to 11.6 and he has remained hemodynamically stable. Vitals/I&O's: Vital Signs Temp Pulse Resp BP Pulse Ox 97.9 F 83 19 H 122/79 H 95 01/16/20 06:25 01/16/20 08:03 01/16/20 08:03 01/16/20 08:03 01/16/20 08:03 Oxygen Delivery Method Room Air Weight: 264 lb 5.348 oz Body Mass Index (BMI) 39.0 Intake and Output for Last 24 Hours 01/14/20 01/15/20 01/16/20 23:59 23:59 23:59 Intake Total 304.17 / 304.17 Balance 304.17 / 304.17 General: Alert, Oriented x3, Cooperative, No apparent distress HEENT: Atraumatic, PERRLA, EOMI, Normocephalic Oral: Dry Mucosa Neck: Supple, No JVD, Negative Carotid Bruits Lungs: Clear to auscultation, Normal air movement, No rhonchi, No wheeze, No rales Cardiovascular: Regular rate, Regular Rhythm, Normal S1, Normal S2, No murmurs Abdomen: Bowel Sounds Present, Soft, - - moderate tenderness in the suprapubic and right lower quadrant. No guarding or rebound tenderness Extremities: No edema, Capillary Refill Less than 3 Seconds Skin: No rashes, No breakdown Musculoskeletal: No Tenderness to Palpation of Joints or Extremities Lymphatic: No Cervical, Supraclavicular, or Inguinal Adenopathy Neurological: Cranial nerves II-XII grossly intact, Neuro grossly intact, Motor Exam 5/5 strength throughout Psych/Mental Status: Normal Affect, Appropriate, Alert and oriented to time, place, person, mood and affect Laboratory Results 01/15/20 22:45: WBC 15.2 H, RBC 5.55, Hgb 16.2, Hct 48.9, MCV 88.1, MCH 29.2, MCHC 33.1, RDW Std Deviation 41.8, RDW Coeff of Bre 13.0, Plt Count 292, MPV 10.5, Immature Gran % (Auto) 0.600, Neut % (Auto) 74.3 H, Lymph % (Auto) 14.0 L, [place] % (Auto) 8.9, Eos % (Auto) 2.0, Baso % (Auto) 0.2, Absolute Neuts (auto) 11.3 H, Absolute Lymphs (auto) 2.13, Nucleated RBC % 0 01/15/20 22:45: Sodium 141, Potassium 3.8, Chloride 107, Carbon Dioxide 27.0, Anion Gap 7, BUN 12, Creatinine 0.84, Estim Creat Clear Calc 128.59, Est GFR (MDRD) Af Amer 137, Est GFR (MDRD) Non-Af 114, BUN/Creatinine Ratio 14.2, Glucose 101, Calcium 9.2 01/15/20 23:00: Urine Color Yellow, Urine Clarity Sl. Cloudy, Urine pH 8.0, Ur Specific [place] 1.015, Urine Protein 15 H, Urine Glucose (UA) 100 H, Urine Ketones Negative, Urine Occult Blood Negative, Urine Nitrite Negative, Urine Bilirubin Negative, Urine Urobilinogen 1 H, Ur Leukocyte Esterase Negative, Urine RBC 0 SEEN, Urine WBC 0 SEEN, Ur Squamous Epith Cells 0 SEEN, Amorphous Sediment 1+, Urine Bacteria RARE, Urine Mucus 0 SEEN 01/16/20 06:17: WBC 11.6 H, RBC 5.23, Hgb 15.3, Hct 47.0, MCV 89.9, MCH 29.3, MCHC 32.6, RDW Std Deviation 43.2, RDW Coeff of Bre 13.2, Plt Count 238, MPV 10.4, Immature Gran % (Auto) 0.700, Neut % (Auto) 72.8 H, Lymph % (Auto) 16.3 L, [place] % (Auto) 7.9, Eos % (Auto) 2.1, Baso % (Auto) 0.2, Absolute Neuts (auto) 8.5 H, Absolute Lymphs (auto) 1.90, Nucleated RBC % 0 01/16/20 06:17: Sodium 139, Potassium 3.6, Chloride 106, Carbon Dioxide 28.0, Anion Gap 5, BUN 13, Creatinine 0.79, Estim Creat Clear Calc 136.73, Est GFR (MDRD) Af Amer 149, Est GFR (MDRD) Non-Af 123, BUN/Creatinine Ratio 16.5, Glucose 83, Calcium 8.3 L Diagnostic Data Abdomen/Pelvis CT 01/15/20 23:37 IMPRESSION: Sigmoid diverticulitis as described. No drainable abscess. No bowel obstruction. Abdominal viscera are unremarkable. Electronically Signed: Dalia Ashley MD at 0:49 EDT , Service support , Current Medications Enoxaparin Sodium (Lovenox) 40 mg SC DAILY [facility] Last Admin: 01/16/20 10:18 Dose: 40 mg Documented by: Sodium Chloride () 1,000 mls @ 125 mls/hr IV .Q8H [facility] Last Infusion: 01/16/20 04:50 Dose: 125 mls/hr Documented by: Ciprofloxacin (Cipro) 400 mg in 200 mls @ 200 mls/hr IV Q12 [facility] Last Admin: 01/16/20 10:12 Dose: 200 mls/hr Documented by: Metronidazole (Flagyl) 500 mg in 100 mls @ 100 mls/hr IV Q8 [facility] Last Infusion: 01/16/20 04:48 Dose: Infused Documented by: Morphine Sulfate () 4 mg IV Q3H PRN PRN PRN Reason: Pain Score 6-10/10 Last Admin: 01/16/20 07:57 Dose: 4 mg Documented by: Ondansetron HCl (Zofran) 4 mg IV Q8H PRN PRN PRN Reason: NAUSEA/VOMITING Last Admin: 01/16/20 03:38 Dose: 4 mg Documented by: Sodium Chloride () 10 - 40 ml IV UD PRN PRN Reason: SALINE FLUSH Last Admin: 01/16/20 04:53 Dose: 10 ml Documented by: STROKE Vital Signs/Narrative: Vital Signs Pulse Resp BP Pulse Ox 01/16/20 08:03 83 19 H 122/79 H 95 Medical Necessity - Tobacco Use Smoking Status: Current every day smoker Tobacco Use: Cigarettes Assessment/Plan All Active Problems (Last Reviewed 11/04/18 @ 07:[address] Ruiz Elaine, DO) Diverticulitis (Acute) Intractable abdominal pain (Acute) Colonic diverticular abscess (Resolved) Hypokalemia (Acute) Abscess of sigmoid colon (Acute) 1. Acute sigmoid diverticulitis still complains of lower abdominal pain CT of the abdomen and pelvis: Sigmoid diverticulitis with no drainable abscess or bowel obstruction with of abdominal viscera. on IV ciprofloxacin and metronidazole keep NPO, continue gentle hydration with IVF on IV morphine had been on prednisone at home o/a of history of ulcerative colitis. consult general surgery; says this is the fifth time he is getting diverticulitis. 2. History of Crohn's disease says he used to be on Humira, and was diagnosed one year ago He hasnt had his Humira in >1 month, because he hasnt been able to get a script from his real estate analyst in [place] has been on steroids at home. hold steroids for now in light of acute infection 3. PTSD/bipolar disorder: on vistaril, tizanidine and gabapentin 4. GERD: On PPI DVT prophylaxis: Lovenox Inpatient E&M: 31173 [facility] L3
--- NOTE | 2020-01-16 12:13 | CT_ITS ---
STUDY: CT ABDOMEN AND PELVIS WITH CONTRAST REASON FOR EXAM: Male, 30 years old. Diverticulitis, lower abdomen pain, trouble urinating, hx Crohn''s, IBS, diverticulitis with abscess 2018, hypertension. RADIATION DOSAGE (If Supplied By Facility): CTDIvol = ( 18.71 ) mGy, DLP = ( 1441.30 ) mGycm TECHNIQUE: Transaxial images were obtained from the dome of the diaphragm to the symphysis pubis without oral contrast. Oral and amp; IV Gastrografin and amp; 100mL Isovue-370 was administered. Sagittal and coronal images were reconstructed. Individualized dose optimization techniques were used for this CT. COMPARISON: 01/16/2020, 12:15 AM. FINDINGS: IV and oral contrast was given and the exam was compared to the previous noncontrast study of earlier today. This exam confirms acute diverticulitis of the mid sigmoid colon. In fact, a relatively long segment of sigmoid colon is involved with wall thickening and numerous diverticuli along with fat stranding. There is demonstration of a lobulated abscess along side the mid sigmoid, measuring approximately 4.3 cm greatest dimension and best seen on axial image 104, coronal image 79, and sagittal image 87. As seen on the sagittal images, this may be in fact be a multiloculated collection. No free air and no free fluid. No other findings or changes relative to the exam of earlier the same day. CT/Abdomen/Pelvis WITH Contrast IMPRESSION: Again demonstrated is acute sigmoid diverticulitis. A deep pelvic abscess is demonstrated approximately 4.3 cm greatest dimension adjacent to the mid sigmoid. Electronically Signed: Armando Rebollar MD at 17:10 EDT , Service support ,
[2020-01-16] MEDS: HYDROmorphone 1 MG/ML Syringe IV ×2 (13:57→16:07)
--- NOTE | 2020-01-16 17:06 | PCM.CONS.GEN ---
Reason for Consult Date of Consultation: 01/16/20 History of Present Illness: The patient is a 30 year old M presented to the ER due to a week of lower abdominal pain. Patient has had history of multiple episodes of diverticulitis and also previously had an abscess in August 2018, CT abdomen pelvis was done without contrast initially on admit report did not state there is any abscess however it does appear to have a fluid collection between the bladder and sigmoid colon. Repeat CT abdomen pelvis with p.o. and IV contrast was completed official report is pending again an abscess cavity of about 3.5 cm appears to be present. Patient mainly complains of pain?burning with urination. Patient was referred in late October to [facility] colorectal due to recurrent diverticulitis as well as possible history of Crohn's disease. Patient states he was seen a GI specialist in [place] that did have him on Humira per patient; however insurance would not pay for it so he has been on some prednisone in the meantime. Patient did have a virtual visit with a colorectal surgeon at [facility] last week per patient they want to do some additional test that needs to be done at [facility] patient is concerned as he has a difficult finding a ride to [place]. Currently patient is getting IV Dilaudid for pain, Cipro and Flagyl IV, white blood count has improved from 15-11. Past Medical History Past Medical History (Chronic Problems): Chronic Problems (Last Reviewed 11/04/18 @ 07:[address] Ruiz Elaine, ) Crohn's disease (Chronic) Bipolar disorder (Chronic) Intermittent explosive disorder (Chronic) IBS (irritable bowel syndrome) (Chronic) Hemorrhoids (Chronic) Tobacco dependence (Chronic) GERD (gastroesophageal reflux disease) (Chronic) Obesity (Chronic) PTSD (post-traumatic stress disorder) (Chronic) Bipolar disorder (Chronic) Medical History: Medical History (Last Reviewed 11/04/18 @ 07:[address] 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 Allergies dextromethorphan HBr [From NyQuil] Allergy (Verified 01/15/20 22:38) Anaphylaxis doxylamine [From NyQuil] Allergy (Verified 01/15/20 22:38) Anaphylaxis poison mimi extract [Poison Mimi Extract] Allergy (Verified 01/15/20 22:38) Anaphylaxis pseudoephedrine HCl [From NyQuil] Allergy (Verified 01/15/20 22:38) Anaphylaxis venom-honey bee [bee venom (honey bee)] Allergy (Verified 01/15/20 22:38) Anaphylaxis MUSHROOMS Allergy (Uncoded 01/15/20 14:41) Anaphylaxis Home Medications: Ambulatory Orders Medication Instructions Recorded hydrOXYzine pamoate capsule 50 mg PO BID PRN 08/04/19 [Vistaril pamoate capsule] Ondansetron HCl [Zofran] 4 mg PO Q8H PRN PRN 11/23/19 Acetaminophen 2,000 mg PO DAILY@1030 11/24/19 Omeprazole [Prilosec] 20 mg PO DAILY 11/24/19 Tizanidine HCl [Zanaflex] 4 mg PO QHS 01/08/20 Melatonin 10 mg PO PRN PRN 01/16/20 Prednisone 10 mg PO UD 01/16/20 Surgical History: - - testicular surgery on cyst--nonresectable., left foot Psychiatric History: Anxiety, Bipolar, Post traumatic stress, - - Multiple personality disorder, Lives: Alone Smoking Status: Current every day smoker Tobacco Use: Cigarettes Alcohol: None Drugs: None - *Family History Paternal Family History: Family History (Last Updated 11/04/18 @ 07:[address] Ruiz Elaine DO) Other Ulcerative colitis History Items: Heart Disease, - - murdered Maternal Family History: Family History (Last Updated 11/04/18 @ 07:[address] Ruiz Elaine DO) Other Ulcerative colitis History Items: No pertinent history Review of Systems Constitutional: Reports: Anorexia Eyes: Denies: Blurred vision HEENT: Denies: Difficulty Swallowing Cardiovascular: Denies: Chest Pain Respiratory: Denies: Shortness of Breath Gastrointestinal: Reports: Abdominal Pain, Nausea Genitourinary: Reports: Dysuria Skin: Denies: Rash Neurological: Denies: Balance problems Psychiatric: Reports: Anxiety, Depression. Denies: Suicidal Ideations Hematologic/ Lymphatic: Denies: Easy Bruising, Easy Bleeding - Physical Exam Vitals/I&O's: Vital Signs Temp Pulse Resp BP Pulse Ox 98.1 F 81 16 130/87 H 97 01/16/20 11:34 01/16/20 14:03 01/16/20 14:03 01/16/20 14:03 01/16/20 14:03 Oxygen Delivery Method Room Air Weight: 264 lb 5.348 oz Body Mass Index (BMI) 39.0 Intake and Output for Last 24 Hours 01/14/20 01/15/20 01/16/20 23:59 23:59 23:59 Intake Total 1754.17 / 1754.17 Balance 1754.17 / 1754.17 General: Alert, Oriented x3, Cooperative, No apparent distress HEENT: Atraumatic Lungs: Normal air movement Cardiovascular: Regular rate Abdomen: Soft, Distended, Obese, Tender - Suprapubic, no peritoneal signs-- reports pressure in the right lower quadrant but not pain Extremities: No clubbing, No cyanosis, No edema Neurological: Cranial nerves II-XII grossly intact Psych/Mental Status: Anxious Laboratory Results 01/15/20 22:45: WBC 15.2 H, RBC 5.55, Hgb 16.2, Hct 48.9, MCV 88.1, MCH 29.2, MCHC 33.1, RDW Std Deviation 41.8, RDW Coeff of Bre 13.0, Plt Count 292, MPV 10.5, Immature Gran % (Auto) 0.600, Neut % (Auto) 74.3 H, Lymph % (Auto) 14.0 L, [place] % (Auto) 8.9, Eos % (Auto) 2.0, Baso % (Auto) 0.2, Absolute Neuts (auto) 11.3 H, Absolute Lymphs (auto) 2.13, Nucleated RBC % 0 01/15/20 22:45: Sodium 141, Potassium 3.8, Chloride 107, Carbon Dioxide 27.0, Anion Gap 7, BUN 12, Creatinine 0.84, Estim Creat Clear Calc 128.59, Est GFR (MDRD) Af Amer 137, Est GFR (MDRD) Non-Af 114, BUN/Creatinine Ratio 14.2, Glucose 101, Calcium 9.2 01/15/20 23:00: Urine Color Yellow, Urine Clarity Sl. Cloudy, Urine pH 8.0, Ur Specific [place] 1.015, Urine Protein 15 H, Urine Glucose (UA) 100 H, Urine Ketones Negative, Urine Occult Blood Negative, Urine Nitrite Negative, Urine Bilirubin Negative, Urine Urobilinogen 1 H, Ur Leukocyte Esterase Negative, Urine RBC 0 SEEN, Urine WBC 0 SEEN, Ur Squamous Epith Cells 0 SEEN, Amorphous Sediment 1+, Urine Bacteria RARE, Urine Mucus 0 SEEN 01/16/20 06:17: WBC 11.6 H, RBC 5.23, Hgb 15.3, Hct 47.0, MCV 89.9, MCH 29.3, MCHC 32.6, RDW Std Deviation 43.2, RDW Coeff of Bre 13.2, Plt Count 238, MPV 10.4, Immature Gran % (Auto) 0.700, Neut % (Auto) 72.8 H, Lymph % (Auto) 16.3 L, [place] % (Auto) 7.9, Eos % (Auto) 2.1, Baso % (Auto) 0.2, Absolute Neuts (auto) 8.5 H, Absolute Lymphs (auto) 1.90, Nucleated RBC % 0 01/16/20 06:17: Sodium 139, Potassium 3.6, Chloride 106, Carbon Dioxide 28.0, Anion Gap 5, BUN 13, Creatinine 0.79, Estim Creat Clear Calc 136.73, Est GFR (MDRD) Af Amer 149, Est GFR (MDRD) Non-Af 123, BUN/Creatinine Ratio 16.5, Glucose 83, Calcium 8.3 L Current Medications Enoxaparin Sodium (Lovenox) 40 mg SC DAILY [facility] Last Admin: 01/16/20 10:18 Dose: 40 mg Documented by: Hydromorphone HCl (Dilaudid Inj) 1 mg IV Q2H PRN PRN PRN Reason: Pain Score 1-10/10 Last Admin: 01/16/20 16:07 Dose: 1 mg Documented by: Sodium Chloride () 1,000 mls @ 125 mls/hr IV .Q8H [facility] Last Infusion: 01/16/20 16:39 Dose: 125 mls/hr Documented by: Ciprofloxacin (Cipro) 400 mg in 200 mls @ 200 mls/hr IV Q12 [facility] Last Infusion: 01/16/20 11:12 Dose: Infused Documented by: Metronidazole (Flagyl) 500 mg in 100 mls @ 100 mls/hr IV Q8 [facility] Last Infusion: 01/16/20 16:39 Dose: Infused Documented by: Ondansetron HCl (Zofran) 4 mg IV Q8H PRN PRN PRN Reason: NAUSEA/VOMITING Last Admin: 01/16/20 11:28 Dose: 4 mg Documented by: Sodium Chloride () 10 - 40 ml IV UD PRN PRN Reason: SALINE FLUSH Last Admin: 01/16/20 16:12 Dose: 10 ml Documented by: Assessment/Plan All Active Problems (Last Reviewed 11/04/18 @ 07:[address] Ruiz Elaine, DO) Diverticulitis (Acute) Intractable abdominal pain (Acute) Colonic diverticular abscess (Resolved) Hypokalemia (Acute) Abscess of sigmoid colon (Acute) 30-year-old male with acute sigmoid diverticulitis with abscess, recurrent history of diverticulitis and also history of abscess back in August 2018 1. We will continue conservative management with zosyn IV from cipro/flagyl d/w Dr. Best, white blood cell count improving 2. Continue pain control with Dilaudid patient mainly states he has pain when he urinates as the sigmoid colon and the area of abscess adjacent to the bladder I do not think it communicates, official CT report pending for the CT with contrast. However the area of abscess is not large enough to be drained continue IV antibiotics. 3. Patient did have a virtual visit with [facility] last week due to this recurrent diverticulitis history and he also has a questionable history of Crohn's, patient states that he was asked to get an additional imaging test will have him follow-up his records so we can take a look and see what that is. Roxi Weiss M.D. Pager: [phone] [facility] [address] [place] [address], Outpatient [place], [address] [place] [address] Office: [phone] Inpatient E&M: [id number] Init Hosp L2
[2020-01-16] MEDS: Ketorolac 30 MG/ML Syringe IV (18:56)
[2020-01-16] MEDS: LORazepam 2 MG/ML Syringe 1 MG IV (19:42)
[2020-01-17] MEDS: 0.9% Saline Lock 10 ML Syringe IV ×4 (02:17→13:00)
[2020-01-17] MEDS: HYDROmorphone 1 MG/ML Syringe IV ×4 (02:17→13:00)
[2020-01-17 05:03] VITALS: BP 128/70; PULSE 68; RESP 18; TEMP 36.8; O2SAT 98
[2020-01-17] MEDS: 0.9% Normal Saline 1,000 ML 125 ML IV ×2 (05:07→12:46)
[2020-01-17 06:16] LABS: Absolute Lymphocyte Count 1.66 X10^3/uL (0.83-4.51); Absolute Neutrophil Count 7.6 X10^3/uL (2.0-7.7); Basophil# 0.01 X10^3/uL; Basophil% 0.1 % (0-1); Eosinophil# 0.22 X10^3/uL; Eosinophils% 2.1 % (0-5); Hematocrit 44.6 % (40-54); Hemoglobin 14.4 g/dL (13.0-16.5); Lymphocyte # 1.66 X10^3/ul (4.0); Mean Corp Hgb Conc 32.3 g/dL (32-36); Mean Corpuscular Hgb 28.8 pg (27.0-32.0); Mean Corpuscular Volume 89.2 fL (80-94); Mean Platelet Vol. 9.8 fl (6.2-12.0); Monocyte% 7.7 % (0-10); NRBC Flagged by Analyzer 0 % (0-5); Neutrophil # 7.63 X10^3/uL (2.7-7.7); Neutrophil % 73.6 % (47-70); Platelet Count 224 K/mm3 (150-450); RBC Distribution Width CV 12.8 % (11.6-14.6); RBC Distribution Width SD 41.8 fl (35.1-43.9); White Blood Count 10.4 K/mm3 (4.4-11.0)
[2020-01-17 06:40] LABS: Anion Gap 6 (5-15); BUN 10 mg/dL (7-18); BUN/Creat Ratio 11.4 RATIO (10-20); Calcium,Total 8.6 mg/dL (8.5-10.1); Chloride 106 mmol/L (98-107); Creatinine, Serum 0.88 mg/dL (0.70-1.30); EST Glomerular Filtration Rate 109 mL/min (>60); Est Glom Filt Rate - Afr Amer 131 mL/min (>60); Estimated Creatinine Clearance 122.74 ml/min; Glucose 74 mg/dL (74-106); Potassium 3.6 mmol/L (3.5-5.1); Sodium Level 139 mmol/L (136-145)
[2020-01-17] MEDS: Enoxaparin 40 MG/0.4 ML Syringe SC (08:53)
[2020-01-17] MEDS: Ondansetron 4 MG/2 ML Vial IV (09:03)
--- NOTE | 2020-01-17 09:26 | PN_ITS ---
Patient Problems: Active and Suspected Problems (Last Reviewed 11/04/18 @ 07:[address] Ruiz Elaine, DO) Diverticulitis (Acute) Intractable abdominal pain (Acute) Subjective: Patient seen and examined. He still has abdominal pain, and says he gets migraines with dilaudid. He denies fever, chills, nausea, vomiting or diarrhea. He still has abdominal pain. Review of systems is otherwise negative. Labs and vitals reviewed. COVID is negative. Vitals/I&O's: Vital Signs Temp Pulse Resp BP Pulse Ox 98.3 F 68 18 128/70 H 98 01/17/20 05:03 01/17/20 05:03 01/17/20 05:03 01/17/20 05:03 01/17/20 05:03 Oxygen Delivery Method Room Air Weight: 264 lb 5.348 oz Body Mass Index (BMI) 39.0 Intake and Output for Last 24 Hours 01/15/20 01/16/20 01/17/20 23:59 23:59 23:59 Intake Total 2504.17 / 2504.17 825 / 825 Output Total 600 / 600 500 / 500 Balance 1904.17 / 1904.17 325 / 325 General: Alert, Oriented x3, Cooperative, No apparent distress HEENT: Atraumatic, PERRLA, EOMI, Normocephalic Oral: Dry Mucosa Neck: Supple, No JVD, Negative Carotid Bruits Lungs: Clear to auscultation, Normal air movement, No rhonchi, No wheeze, No rales Cardiovascular: Regular rate, Regular Rhythm, Normal S1, Normal S2, No murmurs Abdomen: Bowel Sounds Present, Soft, - -still moderate tenderness in the suprapubic and right lower quadrant. No guarding or rebound tenderness Extremities: No edema, Capillary Refill Less than 3 Seconds Skin: No rashes, No breakdown Musculoskeletal: No Tenderness to Palpation of Joints or Extremities Lymphatic: No Cervical, Supraclavicular, or Inguinal Adenopathy Neurological: Cranial nerves II-XII grossly intact, Neuro grossly intact, Motor Exam 5/5 strength throughout Psych/Mental Status: Normal Affect, Appropriate, Alert and oriented to time, place, person, mood and affect Laboratory Results 01/17/20 06:10: WBC 10.4, RBC 5.00, Hgb 14.4, Hct 44.6, MCV 89.2, MCH 28.8, MCHC 32.3, RDW Std Deviation 41.8, RDW Coeff of Bre 12.8, Plt Count 224, MPV 9.8, Immature Gran % (Auto) 0.500, Neut % (Auto) 73.6 H, Lymph % (Auto) 16.0 L, [place] % (Auto) 7.7, Eos % (Auto) 2.1, Baso % (Auto) 0.1, Absolute Neuts (auto) 7.6, Absolute Lymphs (auto) 1.66, Nucleated RBC % 0 01/17/20 06:10: Sodium 139, Potassium 3.6, Chloride 106, Carbon Dioxide 27.0, Anion Gap 6, BUN 10, Creatinine 0.88, Estim Creat Clear Calc 122.74, Est GFR (MDRD) Af Amer 131, Est GFR (MDRD) Non-Af 109, BUN/Creatinine Ratio 11.4, Glucose 74, Calcium 8.6 Diagnostic Data Abdomen/Pelvis CT 01/16/20 12:13 IMPRESSION: Again demonstrated is acute sigmoid diverticulitis. A deep pelvic abscess is demonstrated approximately 4.3 cm greatest dimension adjacent to the mid sigmoid. Electronically Signed: Armando Rebollar MD at 17:10 EDT , Service support , Current Medications Diphenhydramine HCl (Benadryl) 25 mg PO TID PRN PRN PRN Reason: HEADACHE Enoxaparin Sodium (Lovenox) 40 mg SC DAILY [facility] Last Admin: 01/17/20 08:53 Dose: 40 mg Documented by: Hydromorphone HCl (Dilaudid Inj) 1 mg IV Q2H PRN PRN PRN Reason: Pain Score 1-10/10 Last Admin: 01/17/20 09:03 Dose: 1 mg Documented by: Hydroxyzine Pamoate (Vistaril Pamoate Capsule) 50 mg PO BID PRN PRN PRN Reason: ANXIETY Sodium Chloride () 1,000 mls @ 125 mls/hr IV .Q8H [facility] Last Admin: 01/17/20 05:07 Dose: 125 mls/hr Documented by: Piperacillin Sod/Tazobactam (Sod 3.375 gm/ Sodium Chloride) 50 mls @ 12.5 mls/hr IV Q8 [facility] Last Admin: 01/17/20 05:05 Dose: 12.5 mls/hr Documented by: Ondansetron HCl (Zofran) 4 mg IV Q8H PRN PRN PRN Reason: NAUSEA/VOMITING Last Admin: 01/17/20 09:03 Dose: 4 mg Documented by: Sodium Chloride () 10 - 40 ml IV UD PRN PRN Reason: SALINE FLUSH Last Admin: 01/17/20 09:03 Dose: 20 ml Documented by: Medical Necessity - Tobacco Use Smoking Status: Current every day smoker Tobacco Use: Cigarettes Assessment/Plan All Active Problems (Last Reviewed 11/04/18 @ 07:[address] Ruiz Elaine, DO) Diverticulitis (Acute) Intractable abdominal pain (Acute) Colonic diverticular abscess (Resolved) Hypokalemia (Acute) Abscess of sigmoid colon (Acute) 1. Acute sigmoid diverticulitis * still complains of lower abdominal pain * initial CT of the abdomen and pelvis: Sigmoid diverticulitis with no drainable abscess or bowel obstruction with of abdominal viscera. * repeat CT scan with oral and IV contrast: acute sigmoid diverticulitis, with deep pelvic abscess adjacent to mid sigmoid, approximately 4.3cm. * now on IV zosyn * wbc is down to 10.4 * on IV dilaudid. * general surgery on board- advocate conservative management for now. Patient has had similar abscesses in the past, and wasnt able to tolerate drainage by radiology. This time, general surgery thinks area of abscess is not large enourgh to be drained. * 2. 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 * hold steroids for now in light of acute infection * 3. PTSD/bipolar disorder: stable. 4. GERD: On PPI DVT prophylaxis: Lovenox Inpatient E&M: [id number] [facility] Hosp L2
--- NOTE | 2020-01-17 10:05 | PN.SURG_ITS ---
Patient Problems: Active and Suspected Problems (Last Reviewed 11/04/18 @ 07:[address] Ruiz Elaine, DO) Diverticulitis (Acute) Intractable abdominal pain (Acute) Subjective: Patient states the pain is a little bit better still taking IV Dilaudid. - Physical Exam Vitals/I&O's: Vital Signs Temp Pulse Resp BP Pulse Ox 98.3 F 68 18 128/70 H 98 01/17/20 05:03 01/17/20 05:03 01/17/20 05:03 01/17/20 05:03 01/17/20 05:03 Oxygen Delivery Method Room Air Weight: 264 lb 5.348 oz Body Mass Index (BMI) 39.0 Intake and Output for Last 24 Hours 01/15/20 01/16/20 01/17/20 23:59 23:59 23:59 Intake Total 2504.17 / 2504.17 825 / 825 Output Total 600 / 600 500 / 500 Balance 1904.17 / 1904.17 325 / 325 General: Alert, Oriented x3, Cooperative, No apparent distress Lungs: Normal air movement Cardiovascular: Regular rate Abdomen: Soft, Non-Distended, Tender - Suprapubic, no peritoneal signs Extremities: No clubbing, No cyanosis, No edema Neurological: Cranial nerves II-XII grossly intact Psych/Mental Status: Anxious Laboratory Results 01/17/20 06:10: WBC 10.4, RBC 5.00, Hgb 14.4, Hct 44.6, MCV 89.2, MCH 28.8, MCHC 32.3, RDW Std Deviation 41.8, RDW Coeff of Bre 12.8, Plt Count 224, MPV 9.8, Immature Gran % (Auto) 0.500, Neut % (Auto) 73.6 H, Lymph % (Auto) 16.0 L, [place] % (Auto) 7.7, Eos % (Auto) 2.1, Baso % (Auto) 0.1, Absolute Neuts (auto) 7.6, Absolute Lymphs (auto) 1.66, Nucleated RBC % 0 01/17/20 06:10: Sodium 139, Potassium 3.6, Chloride 106, Carbon Dioxide 27.0, Anion Gap 6, BUN 10, Creatinine 0.88, Estim Creat Clear Calc 122.74, Est GFR (MDRD) Af Amer 131, Est GFR (MDRD) Non-Af 109, BUN/Creatinine Ratio 11.4, Glucose 74, Calcium 8.6 Current Medications Diphenhydramine HCl (Benadryl) 25 mg PO TID PRN PRN PRN Reason: HEADACHE Diphenhydramine HCl (Benadryl) 25 mg IV Q4H PRN PRN PRN Reason: MIGRAINE SYMPTOMS Enoxaparin Sodium (Lovenox) 40 mg SC DAILY [facility] Last Admin: 01/17/20 08:53 Dose: 40 mg Documented by: Hydromorphone HCl (Dilaudid Inj) 1 mg IV Q2H PRN PRN PRN Reason: Pain Score 1-10/10 Last Admin: 01/17/20 09:03 Dose: 1 mg Documented by: Hydroxyzine Pamoate (Vistaril Pamoate Capsule) 50 mg PO BID PRN PRN PRN Reason: ANXIETY Sodium Chloride () 1,000 mls @ 125 mls/hr IV .Q8H [facility] Last Admin: 01/17/20 05:07 Dose: 125 mls/hr Documented by: Piperacillin Sod/Tazobactam (Sod 3.375 gm/ Sodium Chloride) 50 mls @ 12.5 mls/hr IV Q8 [facility] Last Admin: 01/17/20 05:05 Dose: 12.5 mls/hr Documented by: Ondansetron HCl (Zofran) 4 mg IV Q8H PRN PRN PRN Reason: NAUSEA/VOMITING Last Admin: 01/17/20 09:03 Dose: 4 mg Documented by: Promethazine HCl (Phenergan) 12.5 mg IV Q4H PRN PRN PRN Reason: NAUSEA/VOMITING Sodium Chloride () 10 - 40 ml IV UD PRN PRN Reason: SALINE FLUSH Last Admin: 01/17/20 09:03 Dose: 20 ml Documented by: Medical Necessity - Tobacco Use Smoking Status: Current every day smoker Tobacco Use: Cigarettes Assessment/Plan All Active Problems (Last Reviewed 11/04/18 @ 07:[address] Ruiz Elaine, DO) Diverticulitis (Acute) Intractable abdominal pain (Acute) Colonic diverticular abscess (Resolved) Hypokalemia (Acute) Abscess of sigmoid colon (Acute) 30-year-old male with acute sigmoid diverticulitis with abscess, recurrent history of diverticulitis and also history of abscess back in August 2018 1. We will continue conservative management with zosyn IV, white blood cell count within normal limits 2. Any pain control with IV Dilaudid. 3. Patient is scheduled for a CT enterography on January 21 at [facility] discussed patient that likely this would need to be rescheduled. Roxi Weiss M.D. Pager: [phone] [facility] [address] [place] [address], Outpatient [place], [address] [place] [address] Office: [phone] Inpatient E&M: [id number] [facility] Hosp L1
[2020-01-17 12:48] VITALS: BP 160/90; PULSE 81; RESP 16; TEMP 36.6; O2SAT 99
[2020-01-17] MEDS: DiphenhydrAMINE 50 MG/ML Syringe 25 MG IV (13:00)
[2020-01-17] MEDS: hydrOXYzine PAM 25 MG Capsule 50 MG PO (15:36)
--- NOTE | 2020-01-17 15:37 | NURSING ---
Addendum entered by Yareli Redding 01/17/20 16:05: it was not Dr Weiss who was called it was Dr. Best. Original Note: pt is very upset due iv beeping, when nurse entered, clamp was clamped off, pt wants to leave, talked to and told her to come pick him up. Dr Weiss was paged. pt was given vistaril, it had been offered to him several times earlier in the shift but he declined. He is trying hard to calm down, and states doesn't want to hurt anyone. And he is an outdoors person and he just needs to get outside. states uses [employer], he will use it when he gets home and it'll him down. Starr the charge nurse, talked to the pt and also called Dr Weiss.
--- NOTE | 2020-01-17 16:17 | DS.PCM_ITS ---
Discharge Date and Diagnosis Date of Admission: 01/16/20 Date of Discharge: 01/17/20 - Primary Discharge Diagnosis acute sigmoid diverticulitis pelvic abscess - Secondary Discharge Diagnosis Chronic Problems (Last Reviewed 11/04/18 @ 07:[address] Ruiz Elaine, DO) Crohn's disease (Chronic) Bipolar disorder (Chronic) Intermittent explosive disorder (Chronic) IBS (irritable bowel syndrome) (Chronic) Hemorrhoids (Chronic) Tobacco dependence (Chronic) GERD (gastroesophageal reflux disease) (Chronic) Obesity (Chronic) PTSD (post-traumatic stress disorder) (Chronic) Bipolar disorder (Chronic) Hospital Course and Treatment Imaging Results: Diagnostic Data Abdomen/Pelvis CT 01/16/20 12:13 IMPRESSION: Again demonstrated is acute sigmoid diverticulitis. A deep pelvic abscess is demonstrated approximately 4.3 cm greatest dimension adjacent to the mid sigmoid. Electronically Signed: Armando Rebollar MD at 17:10 EDT , Service support , general surgery- Dr Weiss Operations: None Procedures: None Summary of Care Provided: The patient is a 30 year old M with past medical history as outlined was admitted through the ED on 01/16/2020 with a complaint of abdominal pain. Pain was mainly in the right side of his abdomen with no aggravation or relieving factors and he also had burning with urination. He had no fever or chills. 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 CT of the abdomen and pelvis done on admission showed that he had acute sigmoid diverticulitis. He was admitted and managed for acute sigmoid diverticulitis. He was kept n.p.o. and started on IV Ciprofloxacin and Flagyl. He was hydrated with IV fluids and given morphine for pain. Pain however persisted and got more severe as well repeat CT of the abdomen with contrast was done which showed acute sigmoid diverticulitis and a deep pelvic abscess adjacent to the sigmoid colon. General surgery was consulted and advocated conservative management as patient had had similar presentation in the past and had been resistant to pelvic abscess drainage by radiology.. Also, general surgery thought that the abscess was too deep this time for drainage by radiology. Antibiotics were switched to IV Zosyn. White cell count trended down. Pain medication was switched to Dilaudid which helped control patient's pain better. On 01/17/2020, patient stated that he wanted to sign out AMA because he was getting in a bad state of mind and did not want to stay in the hospital any further. Despite counseling about severity of his acute diverticulitis and pelvic abscess and the need for IV antibiotics, patient decided to sign out AGAINST MEDICAL ADVICE on 01/17/2020. Patient was seen and examined prior to him signing out AGAINST MEDICAL ADVICE. Pain had improved. He did complain of migraine headaches which she thought was due to the Dilaudid and stated that Phenergan and Benadryl helped with the headache when given with the Dilaudid. He denied any nausea vomiting. Review of symptoms otherwise negative. Labs and vitals reviewed. o/e: Vital Signs Temp Pulse Resp BP Pulse Ox 97.9 F 81 16 160/90 H 99 01/17/20 12:48 01/17/20 12:48 01/17/20 12:48 01/17/20 12:48 01/17/20 12:48 [] General: Alert, Oriented x3, Cooperative, No apparent distress HEENT: Atraumatic, PERRLA, EOMI, Normocephalic Oral: Dry Mucosa Neck: Supple, No JVD, Negative Carotid Bruits Lungs: Clear to auscultation, Normal air movement, No rhonchi, No wheeze, No rales Cardiovascular: Regular rate, Regular Rhythm, Normal S1, Normal S2, No murmurs Abdomen: Bowel Sounds Present, Soft, - - moderate tenderness in the suprapubic and right lower quadrant. No guarding or rebound tenderness Extremities: No edema, Capillary Refill Less than 3 Seconds Skin: No rashes, No breakdown Musculoskeletal: No Tenderness to Palpation of Joints or Extremities Lymphatic: No Cervical, Supraclavicular, or Inguinal Adenopathy Neurological: Cranial nerves II-XII grossly intact, Neuro grossly intact, Motor Exam 5/5 strength throughout Psych/Mental Status: Normal Affect, Appropriate, Alert and oriented to time, place, person, mood and affect Patient left the hospital AGAINST MEDICAL ADVICE. - Physical Exam Vitals/I&O's: Vital Signs Temp Pulse Resp BP Pulse Ox 97.9 F 81 16 160/90 H 99 01/17/20 12:48 01/17/20 12:48 01/17/20 12:48 01/17/20 12:48 01/17/20 12:48 Oxygen Delivery Method Room Air Weight: 264 lb 5.348 oz Body Mass Index (BMI) 39.0 Intake and Output for Last 24 Hours 01/15/20 01/16/20 01/17/20 23:59 23:59 23:59 Intake Total 2504.17 / 2504.17 2279.80 / 2279.80 Output Total 600 / 600 500 / 500 Balance 1904.17 / 1904.17 1779.80 / 1779.80 Laboratory Results 01/17/20 06:10: WBC 10.4, RBC 5.00, Hgb 14.4, Hct 44.6, MCV 89.2, MCH 28.8, MCHC 32.3, RDW Std Deviation 41.8, RDW Coeff of Bre 12.8, Plt Count 224, MPV 9.8, Immature Gran % (Auto) 0.500, Neut % (Auto) 73.6 H, Lymph % (Auto) 16.0 L, [place] % (Auto) 7.7, Eos % (Auto) 2.1, Baso % (Auto) 0.1, Absolute Neuts (auto) 7.6, Absolute Lymphs (auto) 1.66, Nucleated RBC % 0 01/17/20 06:10: Sodium 139, Potassium 3.6, Chloride 106, Carbon Dioxide 27.0, Anion Gap 6, BUN 10, Creatinine 0.88, Estim Creat Clear Calc 122.74, Est GFR (MDRD) Af Amer 131, Est GFR (MDRD) Non-Af 109, BUN/Creatinine Ratio 11.4, Glucose 74, Calcium 8.6 Home Medications: Medications to take at Discharge hydrOXYzine pamoate capsule [Vistaril pamoate capsule] 50 mg PO BID PRN 08/04/19 Ondansetron HCl [Zofran] 4 mg PO Q8H PRN PRN 11/23/19 Acetaminophen 2,000 mg PO DAILY@1030 11/24/19 Omeprazole [Prilosec] 20 mg PO DAILY 11/24/19 Tizanidine HCl [Zanaflex] 4 mg PO QHS 01/08/20 Melatonin 10 mg PO PRN PRN 01/16/20 Prednisone 10 mg PO UD 01/16/20 Primary Care Physician: Hudson Frazier DO [Primary Care Provider] - Disposition: Against Medical Advice Minutes spent on discharge:: 35 Patient Condition:: Fair Medical Necessity - Tobacco Use Smoking Status: Current every day smoker Tobacco Use: Cigarettes Meaningful Use Info Meaningful Use Diagnoses (Choose all that apply): None applicable Inpatient E&M: 13822 Disch Hosp
--- NOTE | 2020-01-18 14:58 | CASEMGMT ---
JUANA DC PHONE CALL DC DATE: 01.17.2020 DC DISPOSITION: home DC DIAGNOSIS: acute sigmoid diverticulitis LACE/STRATA: 10/01 F/U APPTS MADE PRIOR TO DC: no, weekend discharge. PRESCRIPTIONS ACQUIRED BY PT: X attempted to call pt's cell phone. No answer, and no message machine picked up. Gaby ARIAS BSN ACM
== END 2020-01-17 15:57 | disposition left against medical advice (07) | DRG 391 ==
LOC: ED 01-16 01:12 → PCU 01-16 01:44
PROVIDERS: Admitting Provider Family Medicine; Emergency Provider Emergency Medicine; PCP Family Medicine; Visit Provider Student in an Organized Health Care Education/Training Program
DX: K57.20 Diverticulitis of large intestine with perforation and abscess without bleeding (principal); K65.1 Peritoneal abscess; K50.90 Crohn's disease, unspecified, without complications; Z68.41 Body mass index [BMI] 40.0-44.9, adult; K21.9 Gastro-esophageal reflux disease without esophagitis; E66.9 Obesity, unspecified; Z79.52 Long term (current) use of systemic steroids; Z79.899 Other long term (current) drug therapy; F31.9 Bipolar disorder, unspecified; F43.12 Post-traumatic stress disorder, chronic; F17.210 Nicotine dependence, cigarettes, uncomplicated
CPT/HCPCS: 74176; 74177; 80048; 81001; 85025; 96374; 96375; 96376; 97802; 99281; 99285; 99406; J7030; J7040; J7050; Q9967; A4216; J0744; J2405

== ENCOUNTER 2020-04-10 20:14 | Emergency (ER) | payer MEDICARE, MEDICAID, SELFPAY ==
[2020-01-16 02:28] VITALS: BMI 39.0
[2020-04-10 20:14] VITALS: BP 160/95; PULSE 86; RESP 15; TEMP 36.3; O2SAT 98; BMI 37.3
--- NOTE | 2020-04-10 20:30 | CT_ITS ---
STUDY: CT ABDOMEN AND PELVIS WITHOUT CONTRAST REASON FOR EXAM: Male, 30 years old. ABD PAIN X 4-5 DAYS, N/V. PAINFUL URINATION. H/O CHRONS RADIATION DOSAGE (If Supplied By Facility): CTDIvol = ( 17.05 ) mGy, DLP = ( 1339.06 ) mGycm TECHNIQUE: Transaxial images were obtained from the dome of the diaphragm to the symphysis pubis without oral contrast, and without intravenous contrast. Sagittal and coronal images were reconstructed. Individualized dose optimization techniques were used for this CT. COMPARISON: January 16, 2020 FINDINGS: The visualized lung bases are unremarkable. The visualized portions of the heart are within normal limits. Normal liver. Normal gallbladder and extrahepatic biliary system. Normal spleen. Normal pancreas. Normal bilateral adrenal glands. Normal right kidney. Normal left kidney. Normal visualized stomach. Mild ileus of the small intestine. Possible focal wall thickening at the mid sigmoid colon. Correlate with endoscopy if needed. The appendix is visualized and appears normal. Normal abdominal aorta. Normal inferior vena cava. Normal retroperitoneum. Normal urinary bladder. Normal abdominal wall. Normal osseous structures. CT/Abdomen/Pelvis W IV Cont ONLY IMPRESSION: Mild ileus of the small intestine. Focal wall thickening at the mid sigmoid colon. Correlate with endoscopy if needed. Electronically Signed: Connor Gonzales DO at 21:52 EDT Tel [phone], Service support ,
--- NOTE | 2020-04-10 20:32 | ED.VIS.GEN ---
History of Present Illness Chief Complaint: Abd Pain Informant: Patient Narrative: 30-year-old male with history of Crohn's disease and diverticulitis presenting with abdominal pain for the last 4 to 5 days. Not had a fever but he has had nausea and vomiting as well as diarrhea. Patient has not had previous surgery in his abdomen. Patient states that he is normally on Humira however since the pandemic started his insurance has been intermittently not allowing him to have it. He then has to go back and get it after talking to the insurance company. Currently they declined his last medication refill Past Medical History - Allergies and Home Meds Allergies/Adverse Reactions: Allergies dextromethorphan HBr [From NyQuil] Allergy (Verified 04/10/20 20:18) Anaphylaxis doxylamine [From NyQuil] Allergy (Verified 04/10/20 20:18) Anaphylaxis poison mimi extract [Poison Mimi Extract] Allergy (Verified 04/10/20 20:18) Anaphylaxis pseudoephedrine HCl [From NyQuil] Allergy (Verified 04/10/20 20:18) Anaphylaxis venom-honey bee [bee venom (honey bee)] Allergy (Verified 04/10/20 20:18) Anaphylaxis MUSHROOMS Allergy (Uncoded 01/15/20 14:41) Anaphylaxis Primary Care Physician: Hudson Frazier DO [Primary Care Provider] - Prior records reviewed: Yes Past Medical History: - - Crohn's disease, diverticulitis Surgical History: - - testicular surgery on cyst--nonresectable., left foot Smoking Status: Current every day smoker Alcohol: Occasional - Family History Paternal Family History: Family History (Last Updated 11/04/18 @ 07:[address] Ruiz Elaine DO) Other Ulcerative colitis Family History: Reports: Heart Disease, - - murdered Maternal Family History: Family History (Last Updated 11/04/18 @ 07:[address] Ruiz Elaine DO) Other Ulcerative colitis Family History: Reports: No pertinent history Review of Systems General: Denies: Chills, Fever Eyes: Denies: Visual changes - bilaterally, Diplopia ENT: Denies: Rhinorrhea, Sore throat Cardiovascular: Denies: Chest pain, Palpitations Respiratory: Denies: Dyspnea, Cough, Dyspnea on exertion Gastrointestinal: Reports: Abdominal pain, Nausea, Vomiting, Diarrhea. Denies: Melena, Hematochezia Musculoskeletal: Denies: Myalgias Skin: Denies: Rash Hematologic: Denies: Easy bruising, Easy bleeding Allergy: Denies: Uticaria Physical Exam Vital Signs/Narrative: Vital Signs Temp Pulse Resp BP Pulse Ox 04/10/20 20:14 97.4 F L 86 15 160/95 H 98 Inital Vital Signs reviewed: Yes General: Well nourished, Well developed Head: Normocephalic, Atraumatic Eyes: Perrl, EOMI. Negative for: Pale conjunctiva, Scleral icterus ENT: Dry mucous membranes Cardiovascular: Regular rate, Regular rhythm Respiratory: CTA bilaterally, Chest nontender Abdomen: - - She has generalized tenderness to palpation over the abdomen which is worse on the right side in the lower quadrant. Back: Nontender Extremities: Nontender Skin: Normal color, No rash Neurological: Alert Psychological: Normal affect Diagnostic/Tx/Re-eval Clinical Impression(s) from Imaging Studies Abdomen/Pelvis CT 04/10/20 20:30 IMPRESSION: Mild ileus of the small intestine. Focal wall thickening at the mid sigmoid colon. Correlate with endoscopy if needed. Electronically Signed: Connor Gonzales DO at 21:52 EDT Tel [phone], Service support , Laboratory Data 04/10/20 04/10/20 04/10/20 20:40 20:40 20:40 WBC 11.6 H RBC 5.40 Hgb 16.0 Hct 47.9 MCV 88.7 MCH 29.6 MCHC 33.4 RDW Std Deviation 45.3 H RDW Coeff of Bre 14.1 Plt Count 266 MPV 10.6 Immature Gran % (Auto) 0.300 Neut % (Auto) 67.6 Lymph % (Auto) 17.1 L [place] % (Auto) 5.8 Eos % (Auto) 9.0 H Baso % (Auto) 0.2 Absolute Neuts (auto) 7.9 H Absolute Lymphs (auto) 1.99 Nucleated RBC % 0 Sodium 139 Potassium 3.7 Chloride 107 Carbon Dioxide 25.0 Anion Gap 7 BUN 11 Creatinine 1.02 Estim Creat Clear Calc 112.79 Est GFR (MDRD) Af Amer 110 Est GFR (MDRD) Non-Af 91 BUN/Creatinine Ratio 10.8 Glucose 101 Calcium 8.6 Total Bilirubin 0.80 AST 34 ALT 62 H Alkaline Phosphatase 72 Total Protein 8.1 Albumin 4.0 Globulin 4.1 Albumin/Globulin Ratio 1.0 Lipase 119 Urine Color Yellow Urine Clarity Clear Urine pH 6.0 Ur Specific [place] 1.020 Urine Protein Negative Urine Glucose (UA) Normal Urine Ketones Negative Urine Occult Blood Negative Urine Nitrite Negative Urine Bilirubin Negative Urine Urobilinogen Normal Ur Leukocyte Esterase Negative Urine RBC 0 SEEN Urine WBC 0 SEEN Ur Squamous Epith Cells 0 SEEN Urine Bacteria 0 SEEN Urine Mucus 0 SEEN - Medical Decision Making Patient presents for abdominal pain which she believes is likely a Crohn's flare he has been off his medication. He is having trouble picking it up to the insurance company. His blood work is fairly unremarkable. He had a CT abdomen pelvis with some inflammation as documented above. Vital signs are stable he is afebrile. He was sent home on steroids. He is given return precautions. He will follow-up to get his medication restarted. ED Disposition - Plan for ED Patient: Disposition: Home or Assisted Living Diagnosis: Crohn disease Instructions: ED Crohn's Disease Prescriptions: Budesonide [Entocort EC] 9 mg PO DAILY #14 capdr...er Prescription Printed Referrals: Hudson Frazier DO [Primary Care Provider] -
[2020-04-10] MEDS: 0.9% Normal Saline 1,000 ML 1000 ML IV (20:40)
[2020-04-10] MEDS: Morphine 4 MG/ML Syringe IV ×2 (20:40→22:51)
[2020-04-10] MEDS: proMETHazine 25 MG/ML Syringe 12.5 MG IV (20:40)
[2020-04-10 20:45] LABS: Bacteria 0 SEEN /hpf (None Seen); Mucous, Urine 0 SEEN /hpf (<or=2+); Red Blood Cells-Urine 0 SEEN /hpf (0-5); Squamous Epithelial Cells - UA 0 SEEN /hpf (0-5); White Blood Cells 0 SEEN /hpf (0-5)
[2020-04-10 20:46] LABS: Color, Urine Yellow (Yellow); Glucose, Dipstick Normal (Normal); Ketone-Dipstick Negative (Negative); Leukocyte Esterase-Dipstick Negative /ul (Negative); Nitrite-Dipstick Negative (Negative); Occult Blood-Urine Negative /ul (Negative); Protein-Dipstick Negative (Negative); Urine Bilirubin Dipstick Negative (Negative); Urine Clarity Clear (Clear); Urine Urobilinogen Normal (Normal)
[2020-04-10 20:48] LABS: Absolute Lymphocyte Count 1.99 X10^3/uL (0.83-4.51); Absolute Neutrophil Count 7.9 X10^3/uL (2.0-7.7); Basophil# 0.02 X10^3/uL; Basophil% 0.2 % (0-1); Eosinophil# 1.04 X10^3/uL; Hematocrit 47.9 % (40-54); Lymphocyte # 1.99 X10^3/ul (4.0); Lymphocyte % 17.1 % (19-41); Mean Corp Hgb Conc 33.4 g/dL (32-36); Mean Corpuscular Hgb 29.6 pg (27.0-32.0); Mean Corpuscular Volume 88.7 fL (80-94); Mean Platelet Vol. 10.6 fl (6.2-12.0); Monocyte# 0.67 X10^3/uL; Monocyte% 5.8 % (0-10); NRBC Flagged by Analyzer 0 % (0-5); Neutrophil # 7.87 X10^3/uL (2.7-7.7); Neutrophil % 67.6 % (47-70); Platelet Count 266 K/mm3 (150-450); RBC Distribution Width CV 14.1 % (11.6-14.6); RBC Distribution Width SD 45.3 fl (35.1-43.9); White Blood Count 11.6 K/mm3 (4.4-11.0)
[2020-04-10 21:02] LABS: AST(SGOT) 34 U/L (15-37); Alanine Aminotransfer ALT/SGPT 62 U/L (16-61); Alkaline Phosphatase 72 U/L (45-117); Anion Gap 7 (5-15); BUN 11 mg/dL (7-18); BUN/Creat Ratio 10.8 RATIO (10-20); Calcium,Total 8.6 mg/dL (8.5-10.1); Chloride 107 mmol/L (98-107); Creatinine, Serum 1.02 mg/dL (0.70-1.30); EST Glomerular Filtration Rate 91 mL/min (>60); Est Glom Filt Rate - Afr Amer 110 mL/min (>60); Estimated Creatinine Clearance 112.79 ml/min; Globulin 4.1 g/dL (2.2-4.2); Glucose 101 mg/dL (74-106); Lipase 119 U/L (73-393); Potassium 3.7 mmol/L (3.5-5.1); Protein, Total 8.1 g/dL (6.4-8.2); Sodium Level 139 mmol/L (136-145)
[2020-04-10 22:53] VITALS: BP 133/84; PULSE 70; RESP 16; O2SAT 96
[2020-04-10] MEDS: MethylPREDNISolone 125 MG/2 ML Vial IV (22:59)
== END 2020-04-10 23:03 | disposition home or self-care (01) ==
LOC: ED 20:44
PROVIDERS: Emergency Provider Student in an Organized Health Care Education/Training Program; PCP Family Medicine
DX: K50.90 Crohn's disease, unspecified, without complications (principal); F17.200 Nicotine dependence, unspecified, uncomplicated
CPT/HCPCS: 74177; 80053; 81001; 83690; 85025; 96361; 96374; 96375; 96376; 99283; J7030; Q9967; A4216

== ENCOUNTER 2020-04-23 23:22 | Emergency (ER) | payer MEDICARE, MEDICAID, SELFPAY ==
[2020-04-23 23:23] VITALS: BP 178/102; PULSE 100; RESP 18; TEMP 36.3; O2SAT 99; BMI 39.2
--- NOTE | 2020-04-23 23:34 | ED.VISSUMM ---
- ER Visit Summary Date of Service: 04/23/20 Chief Complaint: Abdominal pain History of Present Illness: The patient is a [address] 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 Hughes. He has a history of Crohn's disease. He reports he has abdominal pain that began yesterday. Is gotten much worse over the past hour. Is a stabbing pain is 10 of 10 at worst and a 10 currently. Is worsened by movement relieved by remaining still. He said nausea without vomiting. No diarrhea. His last bowel was approximately 5 hours ago. He reports that a small amount of bright red blood in his stool yesterday. No blood today. Reports he has dysuria and frequency that began 2 to 3 days ago. Patient reports that he began Entocort 2 weeks ago. He has been on Humira in the past, but his insurance has denied this recently. Physical Examination: Vitals: Stable. Afebrile. General: Well-nourished and well-developed. Head: Normocephalic atraumatic. Neck: Supple, no lymphadenopathy. No JVD. Nontender. Cardiovascular: Regular rate and rhythm. No murmurs. Respiratory: No respiratory distress. Clear to auscultation bilaterally. Abdominal: Soft, mild diffuse tenderness palpation that is worse in the right lower quadrant and epigastric regions, nondistended, normal bowel sounds. No guarding, rebound, or peritoneal signs. Back: Nontender. Extremities: Nontender, no edema. Skin: Normal color, no rash. Neurologic: Alert and oriented ?3. Cranial nerves II through XII are intact. Normal strength and sensation. Psych: Normal affect. Test Results: CBC shows a white count of 12.8 with eosinophils of 6. Chem-7 shows a chloride of 108. LFTs are normal. Lipase is normal. UA is normal. Clinical Impression(s) from Imaging Studies Abdomen/Pelvis CT 04/24/20 23:35 IMPRESSION: 1. Improved thickening of the sigmoid colon. 2. No evidence of small bowel obstruction. 3. Fistulous tract between the distal small bowel loop and the sigmoid colon cannot be entirely excluded without oral contrast. 4. Otherwise no demonstrated acute process. Electronically Signed: Blake Gray MD at 2:53 EDT Tel , Service support , Emergency Department Course and Treatment: Patient was treated morphine and Zofran and is resting comfortably. An [facility] report was obtained which shows patient's had 6 prescription for opiates in the past year. Treatment Plan: At this time I do not see indication for admission to the hospital. Patient will be discharged prescription for 10 [place]. Instructed to follow-up with laboratory animal care veterinarian soon as possible. Return to the emergency department for any worsening symptoms. Disposition: To home in improved and stable condition. Impression: 1 1. Abdominal pain. 2. History of Crohn's disease. This note was generated with [employer] dictation software. It may contain incorrect words, spelling, and punctuation that were not noted in review of the chart prior to signing ED Disposition - Plan for ED Patient: Instructions: ED Crohn's Disease Prescriptions: Hydrocodone Bitart/Apap 5-325 [[place] 5MG-325MG] 1 tablet PO Q4H PRN PRN 2 Days #10 tablet PRN Reason: Pain Referrals: Hudson Frazier DO [Primary Care Provider] - 2 Days
[2020-04-24 00:22] LABS: Bacteria 0 SEEN /hpf (None Seen); Mucous, Urine 0 SEEN /hpf (<or=2+); Red Blood Cells-Urine 0 SEEN /hpf (0-5); Squamous Epithelial Cells - UA 0 SEEN /hpf (0-5); White Blood Cells 0 SEEN /hpf (0-5)
[2020-04-24 00:24] LABS: Color, Urine Yellow (Yellow); Glucose, Dipstick Normal (Normal); Ketone-Dipstick Negative (Negative); Leukocyte Esterase-Dipstick Negative /ul (Negative); Nitrite-Dipstick Negative (Negative); Occult Blood-Urine Negative /ul (Negative); Protein-Dipstick Negative (Negative); Urine Bilirubin Dipstick Negative (Negative); Urine Clarity Clear (Clear); Urine Urobilinogen Normal (Normal); Urine pH 6.5 (5.0 - 8.0)
[2020-04-24] MEDS: 0.9% Normal Saline 1,000 ML 1000 ML IV (00:52)
[2020-04-24] MEDS: Morphine 4 MG/ML Syringe IV ×2 (00:53→02:41)
[2020-04-24] MEDS: Ondansetron 4 MG/2 ML Vial IV (00:53)
[2020-04-24 00:56] LABS: Absolute Lymphocyte Count 2.46 X10^3/uL (0.83-4.51); Absolute Neutrophil Count 8.8 X10^3/uL (2.0-7.7); Basophil# 0.02 X10^3/uL; Basophil% 0.2 % (0-1); Eosinophils% 6.3 % (0-5); Hematocrit 45.9 % (40-54); Hemoglobin 15.2 g/dL (13.0-16.5); Lymphocyte # 2.46 X10^3/ul (4.0); Lymphocyte % 19.3 % (19-41); Mean Corp Hgb Conc 33.1 g/dL (32-36); Mean Corpuscular Hgb 29.4 pg (27.0-32.0); Mean Corpuscular Volume 88.8 fL (80-94); Mean Platelet Vol. 10.6 fl (6.2-12.0); Monocyte# 0.65 X10^3/uL; Monocyte% 5.1 % (0-10); NRBC Flagged by Analyzer 0 % (0-5); Neutrophil # 8.78 X10^3/uL (2.7-7.7); Neutrophil % 68.6 % (47-70); Platelet Count 282 K/mm3 (150-450); RBC Distribution Width CV 13.7 % (11.6-14.6); RBC Distribution Width SD 44.7 fl (35.1-43.9); Red Blood Count 5.17 M/mm3 (4.6-6.2); White Blood Count 12.8 K/mm3 (4.4-11.0)
[2020-04-24 01:10] LABS: AST(SGOT) 23 U/L (15-37); Alanine Aminotransfer ALT/SGPT 41 U/L (16-61); Alkaline Phosphatase 83 U/L (45-117); Anion Gap 5 (5-15); BUN 10 mg/dL (7-18); BUN/Creat Ratio 12.2 RATIO (10-20); Calcium,Total 8.8 mg/dL (8.5-10.1); Chloride 108 mmol/L (98-107); Creatinine, Serum 0.82 mg/dL (0.70-1.30); EST Glomerular Filtration Rate 117 mL/min (>60); Est Glom Filt Rate - Afr Amer 142 mL/min (>60); Estimated Creatinine Clearance 140.29 ml/min; Glucose 78 mg/dL (74-106); Lipase 131 U/L (73-393); Potassium 3.9 mmol/L (3.5-5.1); Sodium Level 140 mmol/L (136-145)
[2020-04-24 02:14] VITALS: BP 127/84; PULSE 77; RESP 18; TEMP 36.6; O2SAT 98
[2020-04-24 03:20] VITALS: BP 135/77; PULSE 78; RESP 16; TEMP 36.6; O2SAT 97
--- NOTE | 2020-04-24 23:35 | CT_ITS ---
STUDY: CT ABDOMEN AND PELVIS WITH CONTRAST REASON FOR EXAM: Male, 30 years old. Lower abdominal pain, history of Crohn''s disease. RADIATION DOSAGE (If Supplied By Facility): CTDIvol = ( 23.72 ) mGy, DLP = ( 1403.37 ) mGycm TECHNIQUE: Transaxial images were obtained from the dome of the diaphragm to the symphysis pubis without oral contrast. Oral and amp; IV Gastrografin and amp; 100mL Isovue-300 was administered. Sagittal and coronal images were reconstructed. Individualized dose optimization techniques were used for this CT. COMPARISON: 04-10-2020 FINDINGS: The visualized lung bases are unremarkable. The visualized portions of the heart are within normal limits. Normal liver. Normal gallbladder and extrahepatic biliary system. Normal spleen. Normal pancreas. Normal bilateral adrenal glands. Normal right kidney. Normal left kidney. Normal visualized stomach. The proximal small bowel loops are unremarkable. Mild thickening of distal small bowel loop in the upper pelvic region. Improved sigmoid colon thickening. Persistent diverticulosis. No evidence for acute diverticulitis. Fistulous tract between small bowel loops and sigmoid colon cannot be entirely excluded without oral contrast (axial images 1057 series 2). The appendix is visualized and appears normal. Normal abdominal aorta. Normal inferior vena cava. Normal retroperitoneum. Normal urinary bladder. Normal abdominal wall. Normal osseous structures. CT/Abdomen/Pelvis WITH Contrast IMPRESSION: 1. Improved thickening of the sigmoid colon. 2. No evidence of small bowel obstruction. 3. Fistulous tract between the distal small bowel loop and the sigmoid colon cannot be entirely excluded without oral contrast. 4. Otherwise no demonstrated acute process. Electronically Signed: Blake Gray MD at 2:53 EDT Tel , Service support ,
== END 2020-04-24 03:22 | disposition home or self-care (01) ==
PROVIDERS: Emergency Provider Emergency Medicine; PCP Family Medicine
DX: R10.84 Generalized abdominal pain (principal); K50.90 Crohn's disease, unspecified, without complications; I10 Essential (primary) hypertension; Z72.0 Tobacco use; Z79.899 Other long term (current) drug therapy
CPT/HCPCS: 74177; 80053; 81001; 83690; 85025; 96361; 96374; 96375; 96376; 99285; J7030; Q9967; A4216; J2405

== ENCOUNTER 2020-05-18 21:46 | Emergency (ER) | payer MEDICARE, MEDICAID, SELFPAY ==
[2020-05-18 21:47] VITALS: BP 173/94; PULSE 81; RESP 20; TEMP 36.6; O2SAT 98; BMI 39.2
--- NOTE | 2020-05-18 22:44 | ED.DCSUM_ITS ---
History of Present Illness Chief Complaint: Abd Pain Informant: Patient Narrative: Patient presenting with abdominal pain. Patient has chronic Crohn's disease and was admitted to [facility] 10 days ago for an exacerbation. He was on ciprofloxacin at that time. He was started on a steroid and tapered off and finished today. 3 days ago after getting his injection of Humira he developed some lower abdominal discomfort. He describes sharp pain. He has been using Roxicodone and gabapentin for this given to him upon discharge of the hospital. He sees a civil division deputy sheriff at [facility]. He stated he has chronic diarrhea. He said no nausea or vomiting. Comes in tonight for further pain control. He was off Humira for approximately 6 months due to insurance purposes. He has had no previous abdominal surgeries for his Crohn's disease - Past Medical History (1) Abscess of sigmoid colon Status: Acute (2) Diverticulitis Status: Acute (3) Hypokalemia Status: Acute (4) Intractable abdominal pain Status: Acute (5) Bipolar disorder Status: Chronic (6) Bipolar disorder Status: Chronic (7) Crohn's disease Status: Chronic (8) GERD (gastroesophageal reflux disease) Status: Chronic (9) Hemorrhoids Status: Chronic (10) IBS (irritable bowel syndrome) Status: Chronic (11) Intermittent explosive disorder Status: Chronic (12) Obesity Status: Chronic (13) PTSD (post-traumatic stress disorder) Status: Chronic (14) Tobacco dependence Status: Chronic (15) Diverticulitis Status: Suspected (16) Colonic diverticular abscess Status: Resolved Past Medical History - Allergies and Home Meds Allergies/Adverse Reactions: Allergies dextromethorphan HBr [From NyQuil] Allergy (Verified 05/18/20 21:52) Anaphylaxis doxylamine [From NyQuil] Allergy (Verified 05/18/20 21:52) Anaphylaxis poison mimi extract [Poison Mimi Extract] Allergy (Verified 05/18/20 21:52) Anaphylaxis pseudoephedrine HCl [From NyQuil] Allergy (Verified 05/18/20 21:52) Anaphylaxis venom-honey bee [bee venom (honey bee)] Allergy (Verified 05/18/20 21:52) Anaphylaxis MUSHROOMS Allergy (Uncoded 05/18/20 21:52) Anaphylaxis Primary Care Physician: Hudson Frazier DO [Primary Care Provider] - Prior records reviewed: Yes Past Medical History: - - See problem list Surgical History: - - testicular surgery on cyst--nonresectable., left foot Smoking Status: Former smoker Alcohol: None Drugs: None - Family History Paternal Family History: Family History (Last Updated 11/04/18 @ 07:[address] Ruiz Elaine DO) Other Ulcerative colitis Family History: Reports: Heart Disease, - - murdered Maternal Family History: Family History (Last Updated 11/04/18 @ 07:[address] Ruiz Elaine DO) Other Ulcerative colitis Family History: Reports: No pertinent history Review of Systems General: Denies: Chills, Fever, Sweats Eyes: Denies: Visual changes - bilaterally, Diplopia ENT: Denies: Rhinorrhea, Sore throat Cardiovascular: Denies: Chest pain, Palpitations Respiratory: Denies: Dyspnea, Cough, Dyspnea on exertion Gastrointestinal: Reports: Abdominal pain, Diarrhea. Denies: Nausea, Vomiting, Melena, Hematochezia Genitourinary: Denies: Dysuria, Hematuria, Frequency Musculoskeletal: Denies: Back pain, Extremity Pain Skin: Denies: Rash, Wounds Neurological: Denies: Headache, Weakness, Numbness Physical Exam Vital Signs/Narrative: Vital Signs Temp Pulse Resp BP Pulse Ox 05/18/20 21:47 97.9 F 81 20 H 173/94 H 98 General: Well nourished, Well developed, No Acute Distress Head: Normocephalic, Atraumatic Eyes: Perrl, EOMI ENT: Moist mucous membranes, No rhinorrhea Neck: Supple, Nontender Cardiovascular: Regular rate, Regular rhythm, No murmurs Respiratory: No distress, CTA bilaterally, Chest nontender Abdomen: Nondistended, Normal bowel sounds, Tender - Tender in the suprapubic and left lower quadrant without guarding or rebound no masses. Back: Nontender, Normal Inspection Extremities: Nontender, No edema Skin: Normal color, No rash Neurological: Alert, Oriented x3, Cranial nerves II-XII grossly intact, Normal Strength, Normal Sensation Psychological: Normal affect, Normal Mood Diagnostic/Tx/Re-eval - Medical Decision Making IV established given IV fluids Zofran morphine. Lab work obtained. Lab work shows nothing acute. This includes CBC BMP liver function test lipase. At this time the patient does feel better after treatment. Given a second dose of Dilaudid for pain control. He will follow-up as an outpatient. He will continue his Humira. He just finished a steroid taper therefore I do not feel he needs a repeat of this. He just finished Cipro antibiotic as well. He will follow-up with civil division deputy sheriff ED Disposition - Plan for ED Patient: Disposition: Home or Assisted Living Diagnosis: Crohn's disease Instructions: Crohn's Disease Referrals: Hudson Frazier DO [Primary Care Provider] -
[2020-05-18 23:10] LABS: Absolute Lymphocyte Count 2.35 X10^3/uL (0.83-4.51); Absolute Neutrophil Count 6.2 X10^3/uL (2.0-7.7); Basophil# 0.01 X10^3/uL; Basophil% 0.1 % (0-1); Eosinophil# 0.41 X10^3/uL; Eosinophils% 4.3 % (0-5); Hematocrit 46.6 % (40-54); Lymphocyte # 2.35 X10^3/ul (4.0); Lymphocyte % 24.5 % (19-41); Mean Corp Hgb Conc 32.2 g/dL (32-36); Mean Corpuscular Hgb 29.8 pg (27.0-32.0); Mean Corpuscular Volume 92.6 fL (80-94); Mean Platelet Vol. 10.3 fl (6.2-12.0); Monocyte% 6.3 % (0-10); NRBC Flagged by Analyzer 0 % (0-5); Neutrophil # 6.18 X10^3/uL (2.7-7.7); Neutrophil % 64.4 % (47-70); Platelet Count 254 K/mm3 (150-450); RBC Distribution Width CV 13.2 % (11.6-14.6); RBC Distribution Width SD 44.6 fl (35.1-43.9); Red Blood Count 5.03 M/mm3 (4.6-6.2); White Blood Count 9.6 K/mm3 (4.4-11.0)
[2020-05-18] MEDS: Ondansetron 4 MG/2 ML Vial IV (23:24)
[2020-05-18] MEDS: Morphine 4 MG/ML Syringe IV (23:24)
[2020-05-18] MEDS: 0.9% Normal Saline 1,000 ML 1000 ML IV (23:24)
[2020-05-19 00:06] VITALS: RESP 17
[2020-05-19 00:09] LABS: ALB/GLOB Ratio 0.9 RATIO (0.9-2.4); AST(SGOT) 20 U/L (15-37); Alanine Aminotransfer ALT/SGPT 40 U/L (16-61); Albumin, Serum 3.7 g/dL (3.2-5.0); Alkaline Phosphatase 91 U/L (45-117); Anion Gap 5 (5-15); BUN 13 mg/dL (7-18); BUN/Creat Ratio 14.4 RATIO (10-20); Calcium,Total 9.2 mg/dL (8.5-10.1); Chloride 108 mmol/L (98-107); EST Glomerular Filtration Rate 105 mL/min (>60); Est Glom Filt Rate - Afr Amer 127 mL/min (>60); Estimated Creatinine Clearance 131.73 ml/min; Globulin 3.9 g/dL (2.2-4.2); Glucose 133 mg/dL (74-106); Lipase 220 U/L (73-393); Potassium 4.3 mmol/L (3.5-5.1); Protein, Total 7.6 g/dL (6.4-8.2); Sodium Level 140 mmol/L (136-145)
[2020-05-19] MEDS: HYDROmorphone 1 MG/ML Syringe IV (00:23)
[2020-05-19 00:40] VITALS: BP 142/81; PULSE 87; RESP 18; O2SAT 97
== END 2020-05-19 00:41 | disposition home or self-care (01) ==
PROVIDERS: Emergency Provider Emergency Medicine; PCP Family Medicine
DX: K50.90 Crohn's disease, unspecified, without complications (principal); K21.9 Gastro-esophageal reflux disease without esophagitis; Z87.891 Personal history of nicotine dependence; Z79.899 Other long term (current) drug therapy
CPT/HCPCS: 80053; 83690; 85025; 96361; 96374; 96375; 99285; J7030; A4216; J2405

== ENCOUNTER 2020-06-25 01:22 | Inpatient (IN) | payer MEDICARE, MEDICAID, SELFPAY ==
[2020-06-25] VITALS (8 sets, daily range): BP systolic 105–159; BP diastolic 49–99; PULSE 64–90; RESP 16–18; TEMP 36.2–36.8; O2SAT 94–100; BMI 37.5; BMI 36.8
--- NOTE | 2020-06-25 01:51 | CT_ITS ---
STUDY: CT ABDOMEN AND PELVIS WITH CONTRAST REASON FOR EXAM: Male, 30 years old. LLQ PAIN,ELEVATED WBC -- HX:COPD,GERD,DIVERTICULITIS,CROHN''S.HTN,KIDNEY STONES RADIATION DOSAGE (If Supplied By Facility): CTDIvol = ( 25.36 ) mGy, DLP = ( 1456.27 ) mGycm TECHNIQUE: Transaxial images were obtained from the dome of the diaphragm to the symphysis pubis without oral contrast. IV 100mL Isovue-300 was administered. Sagittal and coronal images were reconstructed. Individualized dose optimization techniques were used for this CT. COMPARISON: None. FINDINGS: The visualized lung bases are unremarkable. The visualized portions of the heart are within normal limits. Normal liver. Normal gallbladder and extrahepatic biliary system. Normal spleen. Normal pancreas. Normal bilateral adrenal glands. Normal right kidney. Normal left kidney. There is acute sigmoid diverticulitis. There is an intramural abscess measuring 15 mm. There is walled off microperforation. There is induration of the surrounding mesentery. There is NO obstruction. The stomach is unremarkable. There are thickened loops of small bowel suggesting enteritis and ileus. The appendix is normal. Normal abdominal aorta. Normal inferior vena cava. Normal retroperitoneum. Normal urinary bladder. Normal abdominal wall. Normal osseous structures. CT/Abdomen/Pelvis W IV Cont ONLY IMPRESSION: There is acute sigmoid diverticulitis. There is an intramural abscess measuring 15 mm. There is walled off microperforation. There is induration of the surrounding mesentery. There is NO obstruction. The stomach is unremarkable. There are thickened loops of small bowel suggesting enteritis and ileus. The appendix is normal. Electronically Signed: Bhavesh Ospina MD at 2:38 EDT , Service support ,
--- NOTE | 2020-06-25 01:52 | ED.VIS.GI ---
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 Negative for: Vomiting - Diarrhea/Melena/Hematochezia GI Symptom: Diarrhea. Negative for: Melena, Hematochezia Onset: - - off and on Severity: Mild Associated Symptoms: Negative for: Dysuria, Frequency, Hematuria Narrative: Patient states he had sudden onset mild discomfort when he was doing some heavy lifting several days ago, but the pain is gradually worsened and now is severe. Mildly nauseated, having some diarrhea, but no blood, no fevers or chills. States he cannot tell if this is a Crohn's flareup or not, but he has been on Humira and fairly well controlled with that, injections every 15 days and his last one was 10 days ago. - Past Medical History (1) Diverticulitis Status: Chronic (2) Bipolar disorder Status: Chronic (3) Crohn's disease Status: Chronic (4) GERD (gastroesophageal reflux disease) Status: Chronic (5) Hemorrhoids Status: Chronic (6) IBS (irritable bowel syndrome) Status: Chronic (7) Intermittent explosive disorder Status: Chronic Past Medical History - Allergies and Home Meds Allergies/Adverse Reactions: Allergies dextromethorphan HBr [From NyQuil] Allergy (Verified 06/25/20 01:27) Anaphylaxis doxylamine [From NyQuil] Allergy (Verified 06/25/20:) Anaphylaxis poison mimi extract [Poison Mimi Extract] Allergy (Verified 06/25/20:) Anaphylaxis pseudoephedrine HCl [From NyQuil] Allergy (Verified 06/25/20:) Anaphylaxis venom-honey bee [bee venom (honey bee)] Allergy (Verified 06/25/20:) Anaphylaxis MUSHROOMS Allergy (Uncoded 06/25/20:) Anaphylaxis Primary Care Physician: Hudson Frazier DO [Primary Care Provider] - Surgical History: - - testicular surgery on cyst--nonresectable., left foot Lives: Spouse/ Significant Other Smoking Status: Light Smoker (<10/day) - Family History Paternal Family History: Family History (Last Updated 11/04/18 @ 07:[address] Ruiz Elaine DO) Other Ulcerative colitis Family History: Reports: Heart Disease, - - murdered Maternal Family History: Family History (Last Updated 11/04/18 @ 07:[address] Ruiz Elaine DO) Other Ulcerative colitis Family History: Reports: No pertinent history Review of Systems General: Denies: Chills, Fever, Sweats Eyes: Denies: Visual changes - bilaterally, Diplopia ENT: Denies: Rhinorrhea, Sore throat Cardiovascular: Denies: Chest pain, Palpitations Respiratory: Denies: Dyspnea, Cough, Dyspnea on exertion Gastrointestinal: Reports: Abdominal pain, Nausea, Diarrhea. Denies: Vomiting, Melena, Hematochezia Genitourinary: Denies: Dysuria, Hematuria, Frequency Musculoskeletal: Denies: Myalgias, Back pain, Swelling, Extremity Pain Skin: Denies: Rash, Wounds Neurological: Denies: Headache, Weakness, Numbness Physical Exam Vital Signs/Narrative: Vital Signs Temp Pulse Resp BP Pulse Ox 06/25/20 01:23 97.5 F L 90 17 140/99 H 97 Inital Vital Signs reviewed: Yes General: Well nourished, Well developed, Acute Distress - Mild, painful Head: Normocephalic, Atraumatic Eyes: Perrl, EOMI ENT: Moist mucous membranes, No rhinorrhea Neck: Supple, Nontender Cardiovascular: Regular rate, Regular rhythm, No murmurs Respiratory: No distress, CTA bilaterally, Chest nontender Abdomen: Soft, Nondistended, Normal bowel sounds, Tender - Diffusely, much worse in left lower quadrant, Guarding - Voluntary left lower quadrant only. Negative for: Rebound tenderness, Pulsatile mass Back: Nontender, Normal Inspection. Negative for: CVA tenderness Extremities: Nontender, No edema Skin: Normal color, No rash, No Trauma Neurological: Alert, Oriented x3, Cranial nerves II-XII grossly intact, Normal Strength, Normal Sensation Psychological: Normal affect, Normal Mood Diagnostic/Tx/Re-eval Impressions Abdomen/Pelvis CT 06/25/20 01:51 IMPRESSION: There is acute sigmoid diverticulitis. There is an intramural abscess measuring 15 mm. There is walled off microperforation. There is induration of the surrounding mesentery. There is NO obstruction. The stomach is unremarkable. There are thickened loops of small bowel suggesting enteritis and ileus. The appendix is normal. Electronically Signed: Bhavesh Ospina MD at 2:38 EDT , Service support , 06/25/20 01:51 Abdomen/Pelvis W IV Cont ONLY [CT] Stat Laboratory Results 06/25/20 06/25/20 01:30 01:30 WBC 12.5 H RBC 5.29 Hgb 15.5 Hct 47.1 MCV 89.0 MCH 29.3 MCHC 32.9 RDW Std Deviation 42.6 RDW Coeff of Bre 13.1 Plt Count 270 MPV 10.5 Immature Gran % (Auto) 0.400 Neut % (Auto) 73.5 H Lymph % (Auto) 15.3 L [place] % (Auto) 5.7 Eos % (Auto) 4.9 Baso % (Auto) 0.2 Absolute Neuts (auto) 9.2 H Absolute Lymphs (auto) 1.92 Nucleated RBC % 0 Sodium 139 Potassium 3.4 L Chloride 108 H Carbon Dioxide 25.0 Anion Gap 6 BUN 10 Creatinine 0.96 Estim Creat Clear Calc 123.50 Est GFR (MDRD) Af Amer 118 Est GFR (MDRD) Non-Af 98 BUN/Creatinine Ratio 10.4 Glucose 114 H Calcium 8.8 Total Bilirubin 0.90 AST 24 ALT 47 Alkaline Phosphatase 71 Total Protein 7.9 Albumin 4.0 Globulin 3.9 Albumin/Globulin Ratio 1.0 - Medical Decision Making Patient was given morphine which helped with his pain. He has a mild leukocytosis and CT that shows a walled off microperforation with intramural abscess 15 mm[address] He had seen Dr. beard in the past, Dr. Prasad is mason foreman/superintendant for that group. I discussed with him, he agreed that admitting the patient medically with antibiotics along with surgical consultation would be reasonable. He does not have a surgical abdomen clinically and I think this is an appropriate plan. Discussed with hospitalist. ED Disposition - Plan for ED Patient: Disposition: Acute Care Hospital [facility] Diagnosis: Diverticulitis of large intestine with abscess without bleeding Referrals: Hudson Frazier, [Primary Care Provider] -
[2020-06-25 02:04] LABS: Absolute Lymphocyte Count 1.92 X10^3/uL (0.83-4.51); Absolute Neutrophil Count 9.2 X10^3/uL (2.0-7.7); Basophil# 0.02 X10^3/uL; Basophil% 0.2 % (0-1); Eosinophil# 0.61 X10^3/uL; Eosinophils% 4.9 % (0-5); Hematocrit 47.1 % (40-54); Hemoglobin 15.5 g/dL (13.0-16.5); Lymphocyte # 1.92 X10^3/ul (4.0); Lymphocyte % 15.3 % (19-41); Mean Corp Hgb Conc 32.9 g/dL (32-36); Mean Corpuscular Hgb 29.3 pg (27.0-32.0); Mean Platelet Vol. 10.5 fl (6.2-12.0); Monocyte# 0.72 X10^3/uL; Monocyte% 5.7 % (0-10); NRBC Flagged by Analyzer 0 % (0-5); Neutrophil # 9.21 X10^3/uL (2.7-7.7); Neutrophil % 73.5 % (47-70); Platelet Count 270 K/mm3 (150-450); RBC Distribution Width CV 13.1 % (11.6-14.6); RBC Distribution Width SD 42.6 fl (35.1-43.9); Red Blood Count 5.29 M/mm3 (4.6-6.2); White Blood Count 12.5 K/mm3 (4.4-11.0)
[2020-06-25] MEDS: 0.9% Normal Saline 1,000 ML 1000 ML IV (02:04)
[2020-06-25] MEDS: Ketorolac 30 MG/ML Syringe IV (02:04)
[2020-06-25] MEDS: Morphine 4 MG/ML Syringe IV ×5 (02:04→18:32)
[2020-06-25] MEDS: Ondansetron 4 MG/2 ML Vial IV ×2 (02:04→12:16)
[2020-06-25 02:14] LABS: AST(SGOT) 24 U/L (15-37); Alanine Aminotransfer ALT/SGPT 47 U/L (16-61); Alkaline Phosphatase 71 U/L (45-117); Anion Gap 6 (5-15); BUN 10 mg/dL (7-18); BUN/Creat Ratio 10.4 RATIO (10-20); Calcium,Total 8.8 mg/dL (8.5-10.1); Chloride 108 mmol/L (98-107); Creatinine, Serum 0.96 mg/dL (0.70-1.30); EST Glomerular Filtration Rate 98 mL/min (>60); Est Glom Filt Rate - Afr Amer 118 mL/min (>60); Globulin 3.9 g/dL (2.2-4.2); Glucose 114 mg/dL (74-106); Potassium 3.4 mmol/L (3.5-5.1); Protein, Total 7.9 g/dL (6.4-8.2); Sodium Level 139 mmol/L (136-145)
[2020-06-25 03:09] LABS: Bacteria 0 SEEN /hpf (None Seen); Mucous, Urine 0 SEEN /hpf (<or=2+); Red Blood Cells-Urine 0 SEEN /hpf (0-5); Squamous Epithelial Cells - UA 0 SEEN /hpf (0-5); White Blood Cells 0 SEEN /hpf (0-5)
[2020-06-25 03:10] LABS: Color, Urine Yellow (Yellow); Glucose, Dipstick Normal (Normal); Ketone-Dipstick Negative (Negative); Leukocyte Esterase-Dipstick Negative /ul (Negative); Nitrite-Dipstick Negative (Negative); Occult Blood-Urine Negative /ul (Negative); Protein-Dipstick 15 mg/dl (Negative); Specific Gravity, Urine 1.015 (1.002-1.030); Urine Bilirubin Dipstick Negative (Negative); Urine Clarity Clear (Clear); Urine Urobilinogen Normal (Normal)
--- NOTE | 2020-06-25 04:31 | PCM.HP.STD ---
History of Present Illness Date of Admission: 06/25/20 Chief Complaint: Abdominal pain The patient is a 30 year old M with a PMH as below who presents to the hospital with 2 days of abdominal pain. He got worse yesterday, he was having episodes of diarrhea and abdominal cramping. No blood. He does have a history of Crohn's and is on Humira, but he says that this does not feel like a Crohn's flare. In the ER he was found to have an elevated white count of 12.5 with normal vital signs, however CT of the abdomen demonstrated a descending colon diverticulitis with a possible mural abscess. The case was discussed with surgery who felt that surgery was not necessary at this time. He was given a dose of Zosyn and started on IV fluids. Past Medical History Past Medical History (Chronic Problems): Chronic Problems (Last Reviewed 11/04/18 @ 07:[address] Ruiz Elaine DO) Crohn's disease (Chronic) Bipolar disorder (Chronic) Intermittent explosive disorder (Chronic) Diverticulitis (Chronic) IBS (irritable bowel syndrome) (Chronic) Hemorrhoids (Chronic) Tobacco dependence (Chronic) GERD (gastroesophageal reflux disease) (Chronic) Obesity (Chronic) PTSD (post-traumatic stress disorder) (Chronic) Bipolar disorder (Chronic) Medical History: Medical History (Last Reviewed 11/04/18 @ 07:[address] 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 Allergies dextromethorphan HBr [From NyQuil] Allergy (Verified 06/25/20 04:06) Anaphylaxis doxylamine [From NyQuil] Allergy (Verified 06/25/20 04:06) Anaphylaxis poison mimi extract [Poison Mimi Extract] Allergy (Verified 06/25/20 04:06) Anaphylaxis pseudoephedrine HCl [From NyQuil] Allergy (Verified 06/25/20 04:06) Anaphylaxis venom-honey bee [bee venom (honey bee)] Allergy (Verified 06/25/20 04:06) Anaphylaxis MUSHROOMS Allergy (Uncoded 06/25/20 04:06) Anaphylaxis Home Medications: Ambulatory Orders Medication Instructions Recorded Acetaminophen 1,500 mg PO DAILY@1030 02/25/20 Omeprazole [Prilosec] 20 mg PO DAILY 11/24/19 Tizanidine HCl [Zanaflex] 4 mg PO QHS 01/08/20 Melatonin 5 mg PO PRN PRN 01/16/20 Adalimumab [Humira] 1 injectable SQ Q15D 05/18/20 Gabapentin [Neurontin] 300 mg PO BID 05/18/20 Hydroxyzine HCl 25 mg PO BID 05/18/20 Surgical History: - - testicular surgery on cyst--nonresectable., left foot Psychiatric History: Anxiety, Bipolar, Post traumatic stress, - - Multiple personality disorder, Lives: Spouse/ Significant Other Smoking Status: Light Smoker (<10/day) Tobacco Use: Cigarettes Alcohol: None Drugs: None - *Family History Paternal Family History: Family History (Last Updated 11/04/18 @ 07:[address] Ruiz Elaine DO) Other Ulcerative colitis History Items: Heart Disease, - - murdered Maternal Family History: Family History (Last Updated 11/04/18 @ 07:[address] Ruiz Elaine DO) Other Ulcerative colitis History Items: No pertinent history Review of Systems Constitutional: Denies: Chills, Fever, Weight Change HEENT: Denies: Head Aches, Sinus Congestion, Sinus Drainage Cardiovascular: Denies: Chest Pain, Palpitations Respiratory: Denies: Cough, Shortness of breath at rest, Sputum production Gastrointestinal: Reports: Abdominal Pain, Diarrhea, Nausea. Denies: Vomiting Genitourinary: Denies: Dysuria Musculoskeletal: Denies: Joint Pain, Joint Tenderness Skin: Denies: Rash, Wounds Neurological: Denies: Numbness, Tingling, Focal weakness Psychiatric: Denies: Anxiety, Depression Hematologic/ Lymphatic: Denies: Easy Bruising, Easy Bleeding VTE Information - Inpt Only VTE Present on Admission: No Patient Problems: Active and Suspected Problems (Last Reviewed 11/04/18 @ 07:[address] Ruiz Elaine DO) Diverticulitis of large intestine with abscess without bleeding (Acute) - Physical Exam Vitals/I&O's: Vital Signs Temp Pulse Resp BP Pulse Ox 97.6 F L 69 18 111/81 H 94 06/25/20 04:13 06/25/20 04:13 06/25/20 04:13 06/25/20 04:13 06/25/20 04:13 Oxygen Delivery Method Room Air Weight: 271 lb 6.224 oz Body Mass Index (BMI) 36.8 Intake and Output for Last 24 Hours 06/23/20 06/24/20 06/25/20 23:59 23:59 23:59 Intake Total 1000 / 1000 Balance 1000 / 1000 General: Alert, Oriented x3, Cooperative, No apparent distress HEENT: Atraumatic, PERRLA, EOMI, Normocephalic Oral: Moist Mucosa Neck: Supple, No JVD Lungs: Clear to auscultation, Normal air movement, No rhonchi, No wheeze, No rales Cardiovascular: Regular rate, Regular Rhythm, Normal S1, Normal S2, No murmurs Abdomen: Soft, Non Tender, Non-Distended, No Hepato-splenomegaly Extremities: No edema, Capillary Refill Less than 3 Seconds Skin: No rashes, No breakdown Neurological: Neuro grossly intact, Sensory exam intact to light touch and pain Psych/Mental Status: Normal Affect, Appropriate Laboratory Results 06/25/20 01:30: WBC 12.5 H, RBC 5.29, Hgb 15.5, Hct 47.1, MCV 89.0, MCH 29.3, MCHC 32.9, RDW Std Deviation 42.6, RDW Coeff of Bre 13.1, Plt Count 270, MPV 10.5, Immature Gran % (Auto) 0.400, Neut % (Auto) 73.5 H, Lymph % (Auto) 15.3 L, [place] % (Auto) 5.7, Eos % (Auto) 4.9, Baso % (Auto) 0.2, Absolute Neuts (auto) 9.2 H, Absolute Lymphs (auto) 1.92, Nucleated RBC % 0 06/25/20 01:30: Sodium 139, Potassium 3.4 L, Chloride 108 H, Carbon Dioxide 25.0, Anion Gap 6, BUN 10, Creatinine 0.96, Estim Creat Clear Calc 123.50, Est GFR (MDRD) Af Amer 118, Est GFR (MDRD) Non-Af 98, BUN/Creatinine Ratio 10.4, Glucose 114 H, Calcium 8.8, Total Bilirubin 0.90, AST 24, ALT 47, Alkaline Phosphatase 71, Total Protein 7.9, Albumin 4.0, Globulin 3.9, Albumin/Globulin Ratio 1.0 06/25/20 02:54: Urine Color Yellow, Urine Clarity Clear, Urine pH 5.0, Ur Specific [place] 1.015, Urine Protein 15 H, Urine Glucose (UA) Normal, Urine Ketones Negative, Urine Occult Blood Negative, Urine Nitrite Negative, Urine Bilirubin Negative, Urine Urobilinogen Normal, Ur Leukocyte Esterase Negative, Urine RBC 0 SEEN, Urine WBC 0 SEEN, Ur Squamous Epith Cells 0 SEEN, Urine Bacteria 0 SEEN, Urine Mucus 0 SEEN Current Medications Sodium Chloride () 250 mls @ 15 mls/hr IV .[id number] PRN PRN Reason: Saline Flush Sodium Chloride () 250 mls @ 15 mls/hr IV .[id number] PRN PRN Reason: Additional IVPB Infusion Nutritional Formula (Lactose Free) (Ensure Enlive) 120 ml PO 4X/DAY JULIA Sodium Chloride () 10 - 40 ml IV UD PRN PRN Reason: SALINE FLUSH Assessment/Plan All Active Problems (Last Reviewed 11/04/18 @ 07:[address] Ruiz Elaine, DO) Intractable abdominal pain (Acute) Diverticulitis of large intestine with abscess without bleeding (Acute) Colonic diverticular abscess (Resolved) Hypokalemia (Acute) Abscess of sigmoid colon (Acute) 1. Diverticulitis/Crohn's disease -CT scan of the abdomen with descending diverticulitis with mural abscess -Consult to general surgery -IV Zosyn -N.p.o., continue with IV fluids -He does use medical marijuana edibles sometimes to control his Crohn's, as well as Humira -Continue with morphine 2. Bipolar disorder -Stable -Continue with gabapentin, hydroxyzine 3. GERD -Stable -Continue with PPI DVT: Lovenox Inpatient E&M: 40250 Init Hosp L3
[2020-06-25] MEDS: 0.9% Normal Saline 1,000 ML 100 ML IV ×3 (04:43→23:53)
[2020-06-25 06:42] LABS: Absolute Lymphocyte Count 2.11 X10^3/uL (0.83-4.51); Absolute Neutrophil Count 6.9 X10^3/uL (2.0-7.7); Basophil# 0.01 X10^3/uL; Basophil% 0.1 % (0-1); Eosinophil# 0.64 X10^3/uL; Eosinophils% 6.2 % (0-5); Hematocrit 40.6 % (40-54); Hemoglobin 13.3 g/dL (13.0-16.5); Lymphocyte # 2.11 X10^3/ul (4.0); Lymphocyte % 20.3 % (19-41); Mean Corp Hgb Conc 32.8 g/dL (32-36); Mean Corpuscular Hgb 29.4 pg (27.0-32.0); Mean Corpuscular Volume 89.6 fL (80-94); Monocyte# 0.74 X10^3/uL; Monocyte% 7.1 % (0-10); NRBC Flagged by Analyzer 0 % (0-5); Neutrophil # 6.85 X10^3/uL (2.7-7.7); Platelet Count 223 K/mm3 (150-450); RBC Distribution Width CV 13.2 % (11.6-14.6); RBC Distribution Width SD 42.9 fl (35.1-43.9); Red Blood Count 4.53 M/mm3 (4.6-6.2); White Blood Count 10.4 K/mm3 (4.4-11.0)
[2020-06-25 06:59] LABS: Anion Gap 4 (5-15); BUN 11 mg/dL (7-18); BUN/Creat Ratio 12.9 RATIO (10-20); Calcium,Total 7.7 mg/dL (8.5-10.1); Chloride 109 mmol/L (98-107); Creatinine, Serum 0.86 mg/dL (0.70-1.30); EST Glomerular Filtration Rate 111 mL/min (>60); Est Glom Filt Rate - Afr Amer 135 mL/min (>60); Estimated Creatinine Clearance 137.86 ml/min; Glucose 76 mg/dL (74-106); Potassium 3.4 mmol/L (3.5-5.1); Sodium Level 140 mmol/L (136-145)
--- NOTE | 2020-06-25 07:43 | PN_ITS ---
Patient Problems: Active and Suspected Problems (Last Reviewed 11/04/18 @ 07:[address] Ruiz Elaine, DO) Diverticulitis of large intestine with abscess without bleeding (Acute) Subjective: Patient overnight with ongoing discomfort to the left lower quadrant although improved since initial presentation, has been greater than 10 out of 10 in severity ongoing but now ranging from 6-8 out of 10 in severity with pain medications, waxing and waning. Patient with no further bowel movement since initial presentation with at that time combination of firm stool and diarrhea. Patient notes abdominal discomfort is more sharp stabbing coupled with general ache. Patient denies fevers, chills, nausea, emesis, abdominal pain, chest pain or dyspnea. Objective: Physical Examination: General: awake, alert, oriented x 3 and cooperative, seated upright in the medical surgical bed, notes more comfortable but with movement appears uncomfortable, grimacing. Skin: normal color, turgor, no icterus, cyanosis. HEENT: AT/NC, EOMI, PERRLA, mildly dry MM, no carotid bruits or JVD noted. Lungs: CTA bilaterally, moderate effort, moderate decrease BL bases, no rales, ronchi or wheezing. Heart: Regular rate and rhythm; no gallop, rub audible. Abdomen: soft, obese, significant left lower quadrant pain primarily but diffuse lower quadrant, voluntary guarding, rebound primarily left lower quadrant, mildly hyperactive bowel sounds currently. Extremities: no cyanosis, clubbing, or edema. Neurological: patient awake, alert, oriented x 3; cognitive function intact; pupils equally reactive to light and accomodation; cranial nerves II-XII grossly normal, moving all 4 extremities, no focal deficits, strength moderately globally decreased secondary to acute pain/presentation. Psychiatric: affect appears fatigued, uncomfortable, grimacing with evaluation and with movements, no acute evidence of depressive or anxiety feelings. Vitals/I&O's: Vital Signs Temp Pulse Resp BP Pulse Ox 97.6 F L 69 18 111/81 H 94 06/25/20 04:13 06/25/20 04:13 06/25/20 04:13 06/25/20 04:13 06/25/20 04:13 Oxygen Delivery Method Room Air Weight: 271 lb 6.224 oz Body Mass Index (BMI) 36.8 Intake and Output for Last 24 Hours 0906/24/20 06/25/20 23:59 23:59 23:59 Intake Total 1050 / 1050 Balance 1050 / 1050 Laboratory Results 06/25/20 01:30: WBC 12.5 H, RBC 5.29, Hgb 15.5, Hct 47.1, MCV 89.0, MCH 29.3, MCHC 32.9, RDW Std Deviation 42.6, RDW Coeff of Bre 13.1, Plt Count 270, MPV 10.5, Immature Gran % (Auto) 0.400, Neut % (Auto) 73.5 H, Lymph % (Auto) 15.3 L, [place] % (Auto) 5.7, Eos % (Auto) 4.9, Baso % (Auto) 0.2, Absolute Neuts (auto) 9.2 H, Absolute Lymphs (auto) 1.92, Nucleated RBC % 0 06/25/20 01:30: Sodium 139, Potassium 3.4 L, Chloride 108 H, Carbon Dioxide 25.0, Anion Gap 6, BUN 10, Creatinine 0.96, Estim Creat Clear Calc 123.50, Est GFR (MDRD) Af Amer 118, Est GFR (MDRD) Non-Af 98, BUN/Creatinine Ratio 10.4, Glucose 114 H, Calcium 8.8, Total Bilirubin 0.90, AST 24, ALT 47, Alkaline Phosphatase 71, Total Protein 7.9, Albumin 4.0, Globulin 3.9, Albumin/Globulin Ratio 1.0 06/25/20 02:54: Urine Color Yellow, Urine Clarity Clear, Urine pH 5.0, Ur Specific [place] 1.015, Urine Protein 15 H, Urine Glucose (UA) Normal, Urine Ketones Negative, Urine Occult Blood Negative, Urine Nitrite Negative, Urine Bilirubin Negative, Urine Urobilinogen Normal, Ur Leukocyte Esterase Negative, Urine RBC 0 SEEN, Urine WBC 0 SEEN, Ur Squamous Epith Cells 0 SEEN, Urine Bacteria 0 SEEN, Urine Mucus 0 SEEN 06/25/20 05:14: WBC 10.4, RBC 4.53 L, Hgb 13.3, Hct 40.6, MCV 89.6, MCH 29.4, MCHC 32.8, RDW Std Deviation 42.9, RDW Coeff of Bre 13.2, Plt Count 223, MPV 11.0, Immature Gran % (Auto) 0.300, Neut % (Auto) 66.0, Lymph % (Auto) 20.3, [place] % (Auto) 7.1, Eos % (Auto) 6.2 H, Baso % (Auto) 0.1, Absolute Neuts (auto) 6.9, Absolute Lymphs (auto) 2.11, Nucleated RBC % 0 06/25/20 05:14: Sodium 140, Potassium 3.4 L, Chloride 109 H, Carbon Dioxide 27.0, Anion Gap 4 L, BUN 11, Creatinine 0.86, Estim Creat Clear Calc 137.86, Est GFR (MDRD) Af Amer 135, Est GFR (MDRD) Non-Af 111, BUN/Creatinine Ratio 12.9, Glucose 76, Calcium 7.7 L Current Medications Enoxaparin Sodium (Lovenox) 40 mg SC DAILY [facility] Gabapentin (Neurontin) 300 mg PO BID [facility] Hydroxyzine Pamoate (Vistaril Pamoate Capsule) 50 mg PO BID [facility] Sodium Chloride () 250 mls @ 15 mls/hr IV .[id number] PRN PRN Reason: Saline Flush Sodium Chloride () 250 mls @ 15 mls/hr IV .[id number] PRN PRN Reason: Additional IVPB Infusion Sodium Chloride () 1,000 mls @ 100 mls/hr IV .Q10H [facility] Last Admin: 06/25/20 04:43 Dose: 100 mls/hr Documented by: Piperacillin Sod/Tazobactam (Sod 3.375 gm/ Sodium Chloride) 50 mls @ 12.5 mls/hr IV Q8 [facility] Melatonin (Melatonin) 5 mg PO QHS PRN PRN PRN Reason: SLEEP Morphine Sulfate () 4 mg IV Q3H PRN PRN PRN Reason: Pain Score 6-10/10 Nutritional Formula (Lactose Free) (Ensure Enlive) 120 ml PO 4X/DAY [facility] Ondansetron HCl (Zofran) 4 mg IV Q8H PRN PRN PRN Reason: NAUSEA/VOMITING Pantoprazole Sodium (Protonix) 20 mg PO DAILY [facility] Sodium Chloride () 10 - 40 ml IV UD PRN PRN Reason: SALINE FLUSH Tizanidine HCl (Zanaflex) 4 mg PO QHS [facility] STROKE Vital Signs/Narrative: Vital Signs Temp Pulse Resp BP Pulse Ox 09/26/20 04:13 97.6 F L 69 18 111/81 H 94 Medical Necessity - Tobacco Use Smoking Status: Light Smoker (<10/day) Tobacco Use: Cigarettes Assessment/Plan All Active Problems (Last Reviewed 11/04/18 @ 07:[address] Ruiz Elaine, DO) Intractable abdominal pain (Acute) Diverticulitis of large intestine with abscess without bleeding (Acute) Colonic diverticular abscess (Resolved) Hypokalemia (Acute) Abscess of sigmoid colon (Acute) The patient is a 29 y/o M w/ PMHx: Obesity, Tobacco use, GERD, Bipolar disorder, ADHD, Explosive disorder, Biopsy confirmed Crohn's disease who presents to the [facility] ED On 06/25/20 with history of ongoing progressively worsening left lower quadrant pain with associated nausea, loose stools with no fevers or chills prompting ED evaluation. 1. Acute Recurrent Sigmoid Diverticulitis complicated by Crohn's Disease: ED evaluation included CBC with mild leukocytosis, CT abdomen pelvis with evidence of a walled off microperforation with intraluminal abscess of 515 mm with evidence of diverticulitis CT A/P w/ evidence of acute diverticulitis, afebrile. Patient was admitted to medical surgical floor, maintain n.p.o. status, maintain on Zosyn therapy, maintained on Protonix, continue electrolyte assessments with correction as needed, continue oral and IV pain regimen. General surgery consulted and recommended continued antibiotic therapy with continued close monitoring but if not clinically improving given underlying Crohn's disease would need to be transition to tertiary facility if surgical intervention needed. Patient with Humira injections q. 15 days. 2. Tobacco Abuse: Encouraged cessation, inpatient consultation per RT, NR if desired. 3. Obesity: Advise both lifestyle and diet changes. 4. GERD: Continue but increase PPI. 5. Bipolar disorder, ADHD, Explosive disorder: Patient currently from list not on any psychiatric regimen, if aggressive in the past has benefited from PRN IV Ativan. Patient does have significant increase in disturbance with steroid usage of note. 6. DVT Prophylaxis: SCDs, lovenox. Procedures: Other Procedure - See Report - Unable to bill as admitted after midnight, billing code: [id number]
[2020-06-25] MEDS: Enoxaparin 40 MG/0.4 ML Syringe SC (08:40)
[2020-06-25] MEDS: Pantoprazole Sodium 20 MG Tablet PO ×2 (08:41→21:01)
[2020-06-25] MEDS: Gabapentin 300 MG Capsule PO ×2 (08:41→21:01)
[2020-06-25] MEDS: hydrOXYzine PAM 25 MG Capsule 50 MG PO ×2 (08:41→21:01)
--- NOTE | 2020-06-25 09:49 | PCM.CONS.GEN ---
Problem List (1) Crohn's disease Status: Chronic Qualifiers: Gastrointestinal tract location: unspecified location Digestive disease complication type: without complication Qualified Code(s): K50.90 - Crohn's disease, unspecified, without complications (2) Diverticulitis of large intestine with abscess without bleeding Status: Acute Reason for Consult Date of Consultation: 06/25/20 History of Present Illness: The patient is a 30 year old M with a PMH as below who presents to the hospital with 2 days of abdominal pain. He got worse yesterday, he was having episodes of diarrhea and abdominal cramping. No blood. He does have a history of Crohn's and is on Humira, but he says that this does not feel like a Crohn's flare. In the ER he was found to have an elevated white count of 12.5 with normal vital signs, however CT of the abdomen demonstrated a descending colon diverticulitis with a possible mural abscess. The case was discussed with surgery who felt that surgery was not necessary at this time. He was given a dose of Zosyn and started on IV fluids. Since being in the hospital and receiving some antibiotics he says that his pain has slightly improved. Past Medical History Past Medical History (Chronic Problems): Chronic Problems (Last Reviewed 11/04/18 @ 07:[address] Ruiz Elaine DO) Crohn's disease (Chronic) Bipolar disorder (Chronic) Intermittent explosive disorder (Chronic) Diverticulitis (Chronic) IBS (irritable bowel syndrome) (Chronic) Hemorrhoids (Chronic) Tobacco dependence (Chronic) GERD (gastroesophageal reflux disease) (Chronic) Obesity (Chronic) PTSD (post-traumatic stress disorder) (Chronic) Bipolar disorder (Chronic) Medical History: Medical History (Last Reviewed 11/04/18 @ 07:[address] 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 Allergies dextromethorphan HBr [From NyQuil] Allergy (Verified 06/25/20 04:06) Anaphylaxis doxylamine [From NyQuil] Allergy (Verified 06/25/20 04:06) Anaphylaxis poison mimi extract [Poison Mimi Extract] Allergy (Verified 06/25/20 04:06) Anaphylaxis pseudoephedrine HCl [From NyQuil] Allergy (Verified 06/25/20 04:06) Anaphylaxis venom-honey bee [bee venom (honey bee)] Allergy (Verified 06/25/20 04:06) Anaphylaxis MUSHROOMS Allergy (Uncoded 06/25/20 04:06) Anaphylaxis Home Medications: Ambulatory Orders Medication Instructions Recorded Acetaminophen 1,500 mg PO DAILY@1030 11/24/19 Omeprazole [Prilosec] 20 mg PO DAILY 11/24/19 Tizanidine HCl [Zanaflex] 4 mg PO QHS 01/08/20 Melatonin 5 mg PO PRN PRN 01/16/20 Adalimumab [Humira] 1 injectable SQ Q15D 05/18/20 Gabapentin [Neurontin] 300 mg PO BID 05/18/20 Hydroxyzine HCl 50 mg PO BID 05/18/20 Surgical History: - - testicular surgery on cyst--nonresectable., left foot Psychiatric History: Anxiety, Bipolar, Post traumatic stress, - - Multiple personality disorder, Lives: Spouse/ Significant Other Smoking Status: Light Smoker (<10/day) Tobacco Use: Cigarettes Alcohol: None Drugs: None - *Family History Paternal Family History: Family History (Last Updated 11/04/18 @ 07:[address] Ruiz Elaine DO) Other Ulcerative colitis History Items: Heart Disease, - - murdered Maternal Family History: Family History (Last Updated 11/04/18 @ 07:[address] Ruiz Elaine DO) Other Ulcerative colitis History Items: No pertinent history Review of Systems Constitutional: Reports: Anorexia Cardiovascular: Denies: Chest Pain, Chest Pressure, Chest Tightness, Palpitations Respiratory: Denies: Cough, Hemoptysis, Shortness of breath at rest, Shortness of breath upon exertion, Wheezing Gastrointestinal: Reports: Abdominal Pain Genitourinary: Denies: Dysuria, Frequency, Hematuria, Urgency Patient Problems: Active and Suspected Problems (Last Reviewed 11/04/18 @ 07:[address] Ruiz Elaine DO) Diverticulitis of large intestine with abscess without bleeding (Acute) - Physical Exam Vitals/I&O's: Vital Signs Temp Pulse Resp BP Pulse Ox 98.0 F 64 18 106/65 97 06/25/20 08:31 06/25/20 08:31 06/25/20 08:31 06/25/20 08:31 06/25/20 08:31 Oxygen Delivery Method Room Air Weight: 271 lb 6.224 oz Body Mass Index (BMI) 36.8 Intake and Output for Last 24 Hours 06/23/20 06/24/20 06/25/20 23:59 23:59 23:59 Intake Total 1050 / 1050 Balance 1050 / 1050 General: Alert, Oriented x3 Lungs: Clear to auscultation Cardiovascular: Regular rate, Regular Rhythm, No murmurs Abdomen: Tender - Most of the patient's tenderness is in the left lower quadrant. He has no rigidity no guarding it does hurt for him to cough though. Laboratory Results 06/25/20 01:30: WBC 12.5 H, RBC 5.29, Hgb 15.5, Hct 47.1, MCV 89.0, MCH 29.3, MCHC 32.9, RDW Std Deviation 42.6, RDW Coeff of Bre 13.1, Plt Count 270, MPV 10.5, Immature Gran % (Auto) 0.400, Neut % (Auto) 73.5 H, Lymph % (Auto) 15.3 L, [place] % (Auto) 5.7, Eos % (Auto) 4.9, Baso % (Auto) 0.2, Absolute Neuts (auto) 9.2 H, Absolute Lymphs (auto) 1.92, Nucleated RBC % 0 06/25/20 01:30: Sodium 139, Potassium 3.4 L, Chloride 108 H, Carbon Dioxide 25.0, Anion Gap 6, BUN 10, Creatinine 0.96, Estim Creat Clear Calc 123.50, Est GFR (MDRD) Af Amer 118, Est GFR (MDRD) Non-Af 98, BUN/Creatinine Ratio 10.4, Glucose 114 H, Calcium 8.8, Total Bilirubin 0.90, AST 24, ALT 47, Alkaline Phosphatase 71, Total Protein 7.9, Albumin 4.0, Globulin 3.9, Albumin/Globulin Ratio 1.0 06/25/20 02:54: Urine Color Yellow, Urine Clarity Clear, Urine pH 5.0, Ur Specific [place] 1.015, Urine Protein 15 H, Urine Glucose (UA) Normal, Urine Ketones Negative, Urine Occult Blood Negative, Urine Nitrite Negative, Urine Bilirubin Negative, Urine Urobilinogen Normal, Ur Leukocyte Esterase Negative, Urine RBC 0 SEEN, Urine WBC 0 SEEN, Ur Squamous Epith Cells 0 SEEN, Urine Bacteria 0 SEEN, Urine Mucus 0 SEEN 06/25/20 05:14: WBC 10.4, RBC 4.53 L, Hgb 13.3, Hct 40.6, MCV 89.6, MCH 29.4, MCHC 32.8, RDW Std Deviation 42.9, RDW Coeff of Bre 13.2, Plt Count 223, MPV 11.0, Immature Gran % (Auto) 0.300, Neut % (Auto) 66.0, Lymph % (Auto) 20.3, [place] % (Auto) 7.1, Eos % (Auto) 6.2 H, Baso % (Auto) 0.1, Absolute Neuts (auto) 6.9, Absolute Lymphs (auto) 2.11, Nucleated RBC % 0 06/25/20 05:14: Sodium 140, Potassium 3.4 L, Chloride 109 H, Carbon Dioxide 27.0, Anion Gap 4 L, BUN 11, Creatinine 0.86, Estim Creat Clear Calc 137.86, Est GFR (MDRD) Af Amer 135, Est GFR (MDRD) Non-Af 111, BUN/Creatinine Ratio 12.9, Glucose 76, Calcium 7.7 L Current Medications Enoxaparin Sodium (Lovenox) 40 mg SC DAILY [facility] Last Admin: 06/25/20 08:40 Dose: 40 mg Documented by: Gabapentin (Neurontin) 300 mg PO BID [facility] Last Admin: 06/25/20 08:41 Dose: 300 mg Documented by: Hydroxyzine Pamoate (Vistaril Pamoate Capsule) 50 mg PO BID [facility] Last Admin: 06/25/20 08:41 Dose: 50 mg Documented by: Sodium Chloride () 250 mls @ 15 mls/hr IV .[id number] PRN PRN Reason: Saline Flush Sodium Chloride () 250 mls @ 15 mls/hr IV .[id number] PRN PRN Reason: Additional IVPB Infusion Sodium Chloride () 1,000 mls @ 100 mls/hr IV .Q10H [facility] Last Admin: 06/25/20 04:43 Dose: 100 mls/hr Documented by: Piperacillin Sod/Tazobactam (Sod 3.375 gm/ Sodium Chloride) 50 mls @ 12.5 mls/hr IV Q8 [facility] Melatonin (Melatonin) 5 mg PO QHS PRN PRN PRN Reason: SLEEP Morphine Sulfate () 4 mg IV Q3H PRN PRN PRN Reason: Pain Score 6-10/10 Last Admin: 06/25/20 08:39 Dose: 4 mg Documented by: Nutritional Formula (Lactose Free) (Ensure Enlive) 120 ml PO 4X/DAY [facility] Last Admin: 06/25/20 08:34 Dose: Not Given Documented by: Ondansetron HCl (Zofran) 4 mg IV Q8H PRN PRN PRN Reason: NAUSEA/VOMITING Oxycodone HCl (Oxyir) 10 mg PO Q4H PRN PRN PRN Reason: Pain Score 6-10/10 Pantoprazole Sodium (Protonix) 20 mg PO DAILY [facility] Last Admin: 06/25/20 08:41 Dose: 20 mg Documented by: Sodium Chloride () 10 - 40 ml IV UD PRN PRN Reason: SALINE FLUSH Tizanidine HCl (Zanaflex) 4 mg PO QHS [facility] Assessment/Plan All Active Problems (Last Reviewed 11/04/18 @ 07:[address] Ruiz Elaine, DO) Intractable abdominal pain (Acute) Diverticulitis of large intestine with abscess without bleeding (Acute) Colonic diverticular abscess (Resolved) Hypokalemia (Acute) Abscess of sigmoid colon (Acute) His white count is improving. I think we have a chance of getting him over this episode of diverticulitis with antibiotics alone. However if his pain does not improve a more than likely get a 1 at ship him to a larger institution due to his Crohn's disease. Office Visits / Consults: [id number] IP Consult L3
[2020-06-25] MEDS: oxyCODONE 5 MG Tablet 10 MG PO ×2 (12:17→19:55)
--- NOTE | 2020-06-25 15:59 | CASEMGMT ---
JUANA CM NOTE: Insurance review for tertiary facilities In-network with [facility] if transfer is recommended is as follows: [facility], [facility], [facility], [facility], [facility], [facility], [facility] ([facility]), and . Henrique GONZÁLESN RN CM
--- NOTE | 2020-06-25 16:30 | CASEMGMT ---
RN CM GENERAL LABORER CM to room to meet with patient for initial transition planning/care coordination assessment. RN JAX introduced self and role at [facility]. Pt voices understanding and consents to assessment at this time. Pt resting in bed in no distress at this time. Pt is A/O at this time and answers all questions appropriately. Care providers, pharmacy, and demographics verified/updated at this time. PCP: Dr Hudson Frazier Specialists: Dr Coburn, CHICHO Haynes Pharmacy: [facility] [employer] [facility] Pres[facility] Benefit: Yes Living Will/HPOA: Pt does not currently have LW/HCPOA and declines info at this time. LNOK: , Joanna. Mother, Kristyn Living Arrangements: Lives w/his in mobile home w/3 steps to enter. Independent w/ADL's. does home mgmt tasks. Pt does yardwork. Transportation: Pt states drives self and states no transportation concerns at this time. does not drive. [id number] will take him home @ discharge DME: States has the following DME: CPAP Pt states no need for further DME at this time. HHC/SNF: No history of either, denies needs, and no needs identified. Pt wishes to return home and states has no concerns with going home at time of discharge. CM to follow for any discharge planning/needs. Pt voices no concerns/needs at this time. Advised pt to ask for CM if any questions/concerns/needs arise. Voices understanding. PLAN: Home Henrique GIVENS RN, CM
[2020-06-25] MEDS: proCHLORPERazine 10 MG/2 ML Vial IV (18:31)
[2020-06-25] MEDS: tiZANidine HCl 2 MG Tablet 4 MG PO (21:01)
[2020-06-26 01:55] VITALS: BP 130/75; PULSE 81; RESP 16; TEMP 36.8; O2SAT 97
[2020-06-26] MEDS: Morphine 4 MG/ML Syringe IV ×2 (02:09→08:14)
--- NOTE | 2020-06-26 07:44 | PCM.PN.HOSP ---
Patient Problems: Active and Suspected Problems (Last Reviewed 11/04/18 @ 07:[address] Ruiz Elaine, DO) Diverticulitis of large intestine with abscess without bleeding (Acute) Vitals/I&O's: Vital Signs Temp Pulse Resp BP Pulse Ox 98.3 F 81 16 130/75 H 97 06/26/20 01:55 06/26/20 01:55 06/26/20 01:55 06/26/20 01:55 06/26/20 01:55 Oxygen Delivery Method Room Air Weight: 271 lb 6.224 oz Body Mass Index (BMI) 36.8 Intake and Output for Last 24 Hours 06/24/20 06/25/20 06/26/20 23:59 23:59 23:59 Intake Total 3241.67 / 3241.67 50 / 50 Balance 3241.67 / 3241.67 50 / 50 Current Medications Acetaminophen (Tylenol) 650 mg PO Q6H PRN PRN PRN Reason: Pain Score 1-3 /Temp>100.7 Al Hydroxide/Mg Hydroxide (Mylanta Ii) 30 ml PO Q6H PRN PRN PRN Reason: Gastric Burning Enoxaparin Sodium (Lovenox) 40 mg SC DAILY [facility] Last Admin: 06/25/20 08:40 Dose: 40 mg Documented by: Gabapentin (Neurontin) 300 mg PO BID [facility] Last Admin: 06/25/20 21:01 Dose: 300 mg Documented by: Hydroxyzine Pamoate (Vistaril Pamoate Capsule) 50 mg PO BID [facility] Last Admin: 06/25/20 21:01 Dose: 50 mg Documented by: Sodium Chloride () 250 mls @ 15 mls/hr IV .[id number] PRN PRN Reason: Saline Flush Last Infusion: 06/25/20 14:30 Dose: 0 mls/hr Documented by: Sodium Chloride () 250 mls @ 15 mls/hr IV .[id number] PRN PRN Reason: Additional IVPB Infusion Sodium Chloride () 1,000 mls @ 100 mls/hr IV .Q10H [facility] Last Admin: 06/25/20 23:53 Dose: 100 mls/hr Documented by: Piperacillin Sod/Tazobactam (Sod 3.375 gm/ Sodium Chloride) 50 mls @ 12.5 mls/hr IV Q8 [facility] Last Admin: 06/26/20 05:21 Dose: 12.5 mls/hr Documented by: Melatonin (Melatonin) 5 mg PO QHS PRN PRN PRN Reason: SLEEP Morphine Sulfate () 4 mg IV Q3H PRN PRN PRN Reason: Pain Score 6-10/10 Last Admin: 06/26/20 02:09 Dose: 4 mg Documented by: Morphine Sulfate () 1 - 2 mg IV Q4H PRN PRN PRN Reason: Pain Score 4-5/10 Ondansetron HCl (Zofran) 4 mg IV Q8H PRN PRN PRN Reason: NAUSEA/VOMITING Last Admin: 06/25/20 12:16 Dose: 4 mg Documented by: Oxycodone HCl (Oxyir) 10 mg PO Q4H PRN PRN PRN Reason: Pain Score 6-10/10 Last Admin: 06/25/20 19:55 Dose: 10 mg Documented by: Pantoprazole Sodium (Protonix) 20 mg PO BID [facility] Last Admin: 06/25/20 21:01 Dose: 20 mg Documented by: Prochlorperazine Edisylate (Compazine Iv) 10 mg IV Q6H PRN PRN PRN Reason: Nausea/Vomiting Last Admin: 06/25/20 18:31 Dose: 10 mg Documented by: Sodium Chloride () 10 - 40 ml IV UD PRN PRN Reason: SALINE FLUSH Tizanidine HCl (Zanaflex) 4 mg PO QHS [facility] Last Admin: 06/25/20 21:01 Dose: 4 mg Documented by: Zolpidem Tartrate (Ambien (Generic)) 5 mg PO QHS PRN PRN PRN Reason: InSOMNIA Medical Necessity - Tobacco Use Smoking Status: Light Smoker (<10/day) Tobacco Use: Cigarettes Assessment/Plan All Active Problems (Last Reviewed 11/04/18 @ 07:[address] Ruiz Elaine, DO) Intractable abdominal pain (Acute) Diverticulitis of large intestine with abscess without bleeding (Acute) Colonic diverticular abscess (Resolved) Hypokalemia (Acute) Abscess of sigmoid colon (Acute)
[2020-06-26 08:06] LABS: Absolute Lymphocyte Count 1.23 X10^3/uL (0.83-4.51); Absolute Neutrophil Count 9.6 X10^3/uL (2.0-7.7); Basophil# 0.02 X10^3/uL; Basophil% 0.2 % (0-1); Eosinophil# 0.44 X10^3/uL; Eosinophils% 3.6 % (0-5); Hematocrit 41.9 % (40-54); Hemoglobin 13.8 g/dL (13.0-16.5); Lymphocyte # 1.23 X10^3/ul (4.0); Lymphocyte % 10.1 % (19-41); Mean Corp Hgb Conc 32.9 g/dL (32-36); Mean Corpuscular Hgb 29.5 pg (27.0-32.0); Mean Corpuscular Volume 89.5 fL (80-94); Mean Platelet Vol. 10.5 fl (6.2-12.0); Monocyte% 7.4 % (0-10); NRBC Flagged by Analyzer 0 % (0-5); Neutrophil % 78.4 % (47-70); Platelet Count 207 K/mm3 (150-450); RBC Distribution Width CV 12.7 % (11.6-14.6); RBC Distribution Width SD 41.3 fl (35.1-43.9); Red Blood Count 4.68 M/mm3 (4.6-6.2); White Blood Count 12.2 K/mm3 (4.4-11.0)
[2020-06-26] MEDS: 0.9% Saline Lock 10 ML Syringe IV ×2 (08:14→10:15)
[2020-06-26 08:15] VITALS: BP 135/83; PULSE 88; RESP 18; TEMP 36.7; O2SAT 95
[2020-06-26] MEDS: hydrOXYzine PAM 25 MG Capsule 50 MG PO (08:20)
[2020-06-26] MEDS: Gabapentin 300 MG Capsule PO (08:20)
[2020-06-26] MEDS: Pantoprazole Sodium 20 MG Tablet PO (08:20)
[2020-06-26 08:22] LABS: ALB/GLOB Ratio 0.9 RATIO (0.9-2.4); AST(SGOT) 17 U/L (15-37); Alanine Aminotransfer ALT/SGPT 33 U/L (16-61); Albumin, Serum 3.4 g/dL (3.2-5.0); Alkaline Phosphatase 54 U/L (45-117); Anion Gap 7 (5-15); BUN 9 mg/dL (7-18); BUN/Creat Ratio 10.3 RATIO (10-20); Calcium,Total 8.5 mg/dL (8.5-10.1); Chloride 108 mmol/L (98-107); Creatinine, Serum 0.87 mg/dL (0.70-1.30); EST Glomerular Filtration Rate 109 mL/min (>60); Est Glom Filt Rate - Afr Amer 132 mL/min (>60); Estimated Creatinine Clearance 136.27 ml/min; Globulin 3.9 g/dL (2.2-4.2); Glucose 77 mg/dL (74-106); Potassium 3.6 mmol/L (3.5-5.1); Protein, Total 7.3 g/dL (6.4-8.2); Sodium Level 137 mmol/L (136-145)
--- NOTE | 2020-06-26 08:43 | PN.SURG_ITS ---
Patient Problems: Active and Suspected Problems (Last Reviewed 11/04/18 @ 07:[address] Ruiz Elaine, DO) Diverticulitis of large intestine with abscess without bleeding (Acute) Subjective: Patient had a very difficult night last night with a significant amount of tenderness. Pain appears to be more just localized now to the left lower quadrant but it is as bad as it was when he arrived. Objective: Focally tender in the left lower quadrant with peritoneal irritation. The rest of his abdomen is soft he has no rigidity. - Physical Exam Vitals/I&O's: Vital Signs Temp Pulse Resp BP Pulse Ox 98.0 F 88 18 135/83 H 95 06/26/20 08:15 06/26/20 08:15 06/26/20 08:15 06/26/20 08:15 06/26/20 08:15 Oxygen Delivery Method Room Air Weight: 271 lb 6.224 oz Body Mass Index (BMI) 36.8 Intake and Output for Last 24 Hours 06/24/20 06/25/20 06/26/20 23:59 23:59 23:59 Intake Total 3241.67 / 3241.67 50 / 50 Balance 3241.67 / 3241.67 50 / 50 Laboratory Results 06/26/20 07:56: WBC 12.2 H, RBC 4.68, Hgb 13.8, Hct 41.9, MCV 89.5, MCH 29.5, MCHC 32.9, RDW Std Deviation 41.3, RDW Coeff of Bre 12.7, Plt Count 207, MPV 10.5, Immature Gran % (Auto) 0.300, Neut % (Auto) 78.4 H, Lymph % (Auto) 10.1 L, [place] % (Auto) 7.4, Eos % (Auto) 3.6, Baso % (Auto) 0.2, Absolute Neuts (auto) 9.6 H, Absolute Lymphs (auto) 1.23, Nucleated RBC % 0 06/26/20 07:56: Sodium 137, Potassium 3.6, Chloride 108 H, Carbon Dioxide 22.0, Anion Gap 7, BUN 9, Creatinine 0.87, Estim Creat Clear Calc 136.27, Est GFR (MDRD) Af Amer 132, Est GFR (MDRD) Non-Af 109, BUN/Creatinine Ratio 10.3, Glucose 77, Calcium 8.5, Total Bilirubin 2.20 H, AST 17, ALT 33, Alkaline Phosphatase 54, Total Protein 7.3, Albumin 3.4, Globulin 3.9, Albumin/Globulin Ratio 0.9 Current Medications Acetaminophen (Tylenol) 650 mg PO Q6H PRN PRN PRN Reason: Pain Score 1-3 /Temp>100.7 Al Hydroxide/Mg Hydroxide (Mylanta Ii) 30 ml PO Q6H PRN PRN PRN Reason: Gastric Burning Enoxaparin Sodium (Lovenox) 40 mg SC DAILY [facility] Last Admin: 06/25/20 08:40 Dose: 40 mg Documented by: Gabapentin (Neurontin) 300 mg PO BID [facility] Last Admin: 06/26/20 08:20 Dose: 300 mg Documented by: Hydroxyzine Pamoate (Vistaril Pamoate Capsule) 50 mg PO BID [facility] Last Admin: 06/26/20 08:20 Dose: 50 mg Documented by: Sodium Chloride () 250 mls @ 15 mls/hr IV .[id number] PRN PRN Reason: Saline Flush Last Infusion: 06/25/20 14:30 Dose: 0 mls/hr Documented by: Sodium Chloride () 250 mls @ 15 mls/hr IV .[id number] PRN PRN Reason: Additional IVPB Infusion Sodium Chloride () 1,000 mls @ 100 mls/hr IV .Q10H [facility] Last Admin: 06/25/20 23:53 Dose: 100 mls/hr Documented by: Piperacillin Sod/Tazobactam (Sod 3.375 gm/ Sodium Chloride) 50 mls @ 12.5 mls/hr IV Q8 [facility] Last Admin: 06/26/20 05:21 Dose: 12.5 mls/hr Documented by: Melatonin (Melatonin) 5 mg PO QHS PRN PRN PRN Reason: SLEEP Morphine Sulfate () 4 mg IV Q3H PRN PRN PRN Reason: Pain Score 6-10/10 Last Admin: 06/26/20 08:14 Dose: 4 mg Documented by: Morphine Sulfate () 1 - 2 mg IV Q4H PRN PRN PRN Reason: Pain Score 4-5/10 Ondansetron HCl (Zofran) 4 mg IV Q8H PRN PRN PRN Reason: NAUSEA/VOMITING Last Admin: 06/25/20 12:16 Dose: 4 mg Documented by: Oxycodone HCl (Oxyir) 10 mg PO Q4H PRN PRN PRN Reason: Pain Score 6-10/10 Last Admin: 06/25/20 19:55 Dose: 10 mg Documented by: Pantoprazole Sodium (Protonix) 20 mg PO BID [facility] Last Admin: 06/26/20 08:20 Dose: 20 mg Documented by: Prochlorperazine Edisylate (Compazine Iv) 10 mg IV Q6H PRN PRN PRN Reason: Nausea/Vomiting Last Admin: 06/25/20 18:31 Dose: 10 mg Documented by: Sodium Chloride () 10 - 40 ml IV UD PRN PRN Reason: SALINE FLUSH Last Admin: 06/26/20 08:14 Dose: 10 ml Documented by: Tizanidine HCl (Zanaflex) 4 mg PO QHS [facility] Last Admin: 06/25/20 21:01 Dose: 4 mg Documented by: Zolpidem Tartrate (Ambien (Generic)) 5 mg PO QHS PRN PRN PRN Reason: InSOMNIA Medical Necessity - Tobacco Use Smoking Status: Light Smoker (<10/day) Tobacco Use: Cigarettes Assessment/Plan All Active Problems (Last Reviewed 11/04/18 @ 07:[address] Ruiz Elaine, DO) Intractable abdominal pain (Acute) Diverticulitis of large intestine with abscess without bleeding (Acute) Colonic diverticular abscess (Resolved) Hypokalemia (Acute) Abscess of sigmoid colon (Acute) I have spoken to the on-call surgeon who would like the patient transferred up to [place] emergency department to be assessed by the residents. We will burn his CAT scans of his abdomen and pelvis from this year which there should be almost 7 of them. Inpatient E&M: 43411 Subs Hosp L2
--- NOTE | 2020-06-26 08:44 | PCM.DC.SUM ---
Discharge Date and Diagnosis - Problem List Patient Problems: Active and Suspected Problems (Last Reviewed 11/04/18 @ 07:[address] Ruiz Elaine DO) Diverticulitis of large intestine with abscess without bleeding (Acute) Date of Admission: 06/25/20 Date of Discharge: 06/26/20 - Primary Discharge Diagnosis Acute Problems: Active Problems (Last Reviewed 11/04/18 @ 07:[address] Ruiz Elaine DO) 1. Acute Recurrent Sigmoid Diverticulitis complicated by Crohn's Disease with Intramural Abscess/walled off microperforation 2. Tobacco Abuse 4. GERD 5. Bipolar disorder, ADHD, Explosive disorder - Secondary Discharge Diagnosis Chronic Problems: Chronic Problems (Last Reviewed 11/04/18 @ 07:[address] Ruiz Elaine DO) Crohn's disease (Chronic) Bipolar disorder (Chronic) Intermittent explosive disorder (Chronic) Diverticulitis (Chronic) IBS (irritable bowel syndrome) (Chronic) Hemorrhoids (Chronic) Tobacco dependence (Chronic) GERD (gastroesophageal reflux disease) (Chronic) Obesity (Chronic) PTSD (post-traumatic stress disorder) (Chronic) Bipolar disorder (Chronic) Hospital Course and Treatment Dr. Prasad Surgery, General Operations: None Procedures: EKG Summary of Care Provided: The patient is a 29 y/o M w/ PMHx: Obesity, Tobacco use, GERD, Bipolar disorder, ADHD, Explosive disorder, Biopsy confirmed Crohn's disease who presented to the [facility] ED on 06/25/20 with history of ongoing progressively worsening left lower quadrant pain with associated nausea, loose stools with no fevers or chills prompting ED evaluation. ED evaluation included CBC with mild leukocytosis, CT abdomen pelvis with evidence of a walled off microperforation with intraluminal abscess of 515 mm with evidence of diverticulitis CT A/P w/ evidence of acute diverticulitis, afebrile. Patient was admitted to medical surgical floor, maintain n.p.o. status, maintained on Zosyn therapy, maintained on Protonix, continued electrolyte assessments with correction as needed, continued oral and IV pain regimen. General surgery consulted and recommended continued antibiotic therapy with continued close monitoring but given not clinically improving and underlying Crohn's disease felt on 06/26/20 patient appropriate for transition to tertiary facility for consideration surgical intervention. Dr. Prasad discussed case with Colorectal surgery at [facility] who accepted patient with planned transition to the ED for evaluation. DAY OF DISCHARGE PROGRESS NOTE: Subjective: Patient without acute event overnight per self and nursing report going left lower quadrant pain, noted similar to prior, not improving, sometimes more severe than others, ranging 6-10 out of 10. Patient no recent bowel still since prior to admission which was mixed diarrhea and firm stool. Patient denies fever, chills, nausea, emesis, chest pain or dyspnea. Patient agreeable to discharge to tertiary. At his discharge from tertiary facility close follow-up with GI as well as his primary care physician in addition to colorectal surgery if appropriate and intervention undertaken. Objective: T 98, heart rate 88, BP 135/83, respiratory rate 18, 95% on room air. Physical Examination: General: awake, alert, oriented x 3 and cooperative, seated upright in the medical surgical bed, notes ongoing discomfort with movements and palpation as well as underlying ongoing low-level Skin: normal color, turgor, no icterus, cyanosis. HEENT: AT/NC, EOMI, PERRLA, mildly dry MM. Lungs: CTA bilaterally, moderate effort, moderate decrease BL bases, no rales, ronchi or wheezing. Heart: Regular rate and rhythm; no gallop, rub audible. Abdomen: soft, obese, significant left lower quadrant pain primarily but diffuse lower quadrant, voluntary guarding, rebound primarily left lower quadrant, bowel sounds no Extremities: no cyanosis, clubbing, or edema. Neurological: patient awake, alert, oriented x 3; cognitive function intact; pupils equally reactive to light and accomodation; cranial nerves II-XII grossly normal, moving all 4 extremities, no focal deficits, strength moderately globally decreased secondary to acute pain/presentation. Psychiatric: affect appears fatigued, uncomfortable with examination, no acute evidence of depressive or anxiety feelings. Assessment and Plan: Please see hospital summary above. Patient Problems: Active and Suspected Problems (Last Reviewed 11/04/18 @ 07:[address] Ruiz Elaine, DO) Diverticulitis of large intestine with abscess without bleeding (Acute) - Physical Exam Vitals/I&O's: Vital Signs Temp Pulse Resp BP Pulse Ox 98.0 F 88 18 135/83 H 95 06/26/20 08:15 06/26/20 08:15 06/26/20 08:15 06/26/20 08:15 06/26/20 08:15 Oxygen Delivery Method Room Air Weight: 271 lb 6.224 oz Body Mass Index (BMI) 36.8 Intake and Output for Last 24 Hours 06/24/20 06/25/20 06/26/20 23:59 23:59 23:59 Intake Total 3241.67 / 3241.67 50 / 50 Balance 3241.67 / 3241.67 50 / 50 Laboratory Results 06/26/20 07:56: WBC 12.2 H, RBC 4.68, Hgb 13.8, Hct 41.9, MCV 89.5, MCH 29.5, MCHC 32.9, RDW Std Deviation 41.3, RDW Coeff of Bre 12.7, Plt Count 207, MPV 10.5, Immature Gran % (Auto) 0.300, Neut % (Auto) 78.4 H, Lymph % (Auto) 10.1 L, [place] % (Auto) 7.4, Eos % (Auto) 3.6, Baso % (Auto) 0.2, Absolute Neuts (auto) 9.6 H, Absolute Lymphs (auto) 1.23, Nucleated RBC % 0 06/26/20 07:56: Sodium 137, Potassium 3.6, Chloride 108 H, Carbon Dioxide 22.0, Anion Gap 7, BUN 9, Creatinine 0.87, Estim Creat Clear Calc 136.27, Est GFR (MDRD) Af Amer 132, Est GFR (MDRD) Non-Af 109, BUN/Creatinine Ratio 10.3, Glucose 77, Calcium 8.5, Total Bilirubin 2.20 H, AST 17, ALT 33, Alkaline Phosphatase 54, Total Protein 7.3, Albumin 3.4, Globulin 3.9, Albumin/Globulin Ratio 0.9 Current Medications Acetaminophen (Tylenol) 650 mg PO Q6H PRN PRN PRN Reason: Pain Score 1-3 /Temp>100.7 Al Hydroxide/Mg Hydroxide (Mylanta Ii) 30 ml PO Q6H PRN PRN PRN Reason: Gastric Burning Enoxaparin Sodium (Lovenox) 40 mg SC DAILY [facility] Last Admin: 06/25/20 08:40 Dose: 40 mg Documented by: Gabapentin (Neurontin) 300 mg PO BID [facility] Last Admin: 06/26/20 08:20 Dose: 300 mg Documented by: Hydroxyzine Pamoate (Vistaril Pamoate Capsule) 50 mg PO BID [facility] Last Admin: 06/26/20 08:20 Dose: 50 mg Documented by: Sodium Chloride () 250 mls @ 15 mls/hr IV .[id number] PRN PRN Reason: Saline Flush Last Infusion: 06/25/20 14:30 Dose: 0 mls/hr Documented by: Sodium Chloride () 250 mls @ 15 mls/hr IV .[id number] PRN PRN Reason: Additional IVPB Infusion Sodium Chloride () 1,000 mls @ 100 mls/hr IV .Q10H [facility] Last Admin: 06/25/20 23:53 Dose: 100 mls/hr Documented by: Piperacillin Sod/Tazobactam (Sod 3.375 gm/ Sodium Chloride) 50 mls @ 12.5 mls/hr IV Q8 [facility] Last Admin: 06/26/20 05:21 Dose: 12.5 mls/hr Documented by: Melatonin (Melatonin) 5 mg PO QHS PRN PRN PRN Reason: SLEEP Morphine Sulfate () 4 mg IV Q3H PRN PRN PRN Reason: Pain Score 6-10/10 Last Admin: 06/26/20 08:14 Dose: 4 mg Documented by: Morphine Sulfate () 1 - 2 mg IV Q4H PRN PRN PRN Reason: Pain Score 4-5/10 Ondansetron HCl (Zofran) 4 mg IV Q8H PRN PRN PRN Reason: NAUSEA/VOMITING Last Admin: 06/25/20 12:16 Dose: 4 mg Documented by: Oxycodone HCl (Oxyir) 10 mg PO Q4H PRN PRN PRN Reason: Pain Score 6-10/10 Last Admin: 06/25/20 19:55 Dose: 10 mg Documented by: Pantoprazole Sodium (Protonix) 20 mg PO BID [facility] Last Admin: 06/26/20 08:20 Dose: 20 mg Documented by: Prochlorperazine Edisylate (Compazine Iv) 10 mg IV Q6H PRN PRN PRN Reason: Nausea/Vomiting Last Admin: 06/25/20 18:31 Dose: 10 mg Documented by: Sodium Chloride () 10 - 40 ml IV UD PRN PRN Reason: SALINE FLUSH Last Admin: 09/27/20 08:14 Dose: 10 ml Documented by: Tizanidine HCl (Zanaflex) 4 mg PO QHS JULIA Last Admin: 06/25/20 21:01 Dose: 4 mg Documented by: Zolpidem Tartrate (Ambien (Generic)) 5 mg PO QHS PRN PRN PRN Reason: InSOMNIA Home Medications: Medications to take at Discharge Acetaminophen 1,500 mg PO DAILY@1030 11/24/19 Omeprazole [Prilosec] 20 mg PO DAILY 11/24/19 Tizanidine HCl [Zanaflex] 4 mg PO QHS 01/08/20 Melatonin 5 mg PO PRN PRN 01/16/20 Adalimumab [Humira] 1 injectable SQ Q15D 05/18/20 Gabapentin [Neurontin] 300 mg PO BID 05/18/20 Hydroxyzine HCl 50 mg PO BID 05/18/20 Primary Care Physician: Hudson Frazier DO [Primary Care Provider] - Disposition: Acute care Hospital Minutes spent on discharge:: 35 Patient Condition:: Stable Medical Necessity - Tobacco Use Smoking Status: Light Smoker (<10/day) Tobacco Use: Cigarettes Meaningful Use Info Meaningful Use Diagnoses (Choose all that apply): None applicable Inpatient E&M: 32836 Disch Hosp
--- NOTE | 2020-06-26 08:59 | NURSING ---
Report called the [facility].
[2020-06-26] MEDS: oxyCODONE 5 MG Tablet 10 MG PO (10:15)
== END 2020-06-26 10:43 | disposition short-term general hospital (02) | DRG 392 ==
LOC: ED 02:59 → MS3 05:10
PROVIDERS: Admitting Provider Family Medicine; Emergency Provider Emergency Medicine; PCP Family Medicine; Referring Provider Family Medicine; Visit Provider Family Medicine
DX: K57.20 Diverticulitis of large intestine with perforation and abscess without bleeding (principal); K50.90 Crohn's disease, unspecified, without complications; K21.9 Gastro-esophageal reflux disease without esophagitis; F31.9 Bipolar disorder, unspecified; Z79.899 Other long term (current) drug therapy; F17.210 Nicotine dependence, cigarettes, uncomplicated; E66.9 Obesity, unspecified; Z68.36 Body mass index [BMI] 36.0-36.9, adult; F90.9 Attention-deficit hyperactivity disorder, unspecified type
CPT/HCPCS: 36415; 74177; 80048; 80053; 81001; 85025; 97802; 99284; 99406; J7030; J7050; Q9967; A4216; J2405

== ENCOUNTER 2020-08-19 14:49 | Emergency (ER) | payer MEDICARE, MEDICAID, SELFPAY ==
[2020-06-25 04:04] VITALS: BMI 36.8
[2020-08-19] VITALS (7 sets, daily range): BP systolic 136–158; BP diastolic 72–98; PULSE 61–102; RESP 12–24; TEMP 36.7; O2SAT 96–99; BMI 33.7
--- NOTE | 2020-08-19 15:19 | ED.DCSUM_ITS ---
History of Present Illness Chief Complaint: Wound Detail of Chief Complaint: wound pain Informant: Patient Onset: Today Context: Sudden Onset - during attempted wound vac dressing/packing change Timing: Continuous Quality: pain, burning Location: at midline abd wound Current Severity: Severe Maximum Severity: Severe Worsened by: manipulating affected area at all Relieved by: leaving alone Associated Symptoms: bleeding from top of wound when dressing/packing change attempted Narrative: 3 days ago, patient had emergency surgery due to a perforated bowel during a colonoscopy, which was being performed routinely after recovering from diverticulitis with an abscess. He had a diverting ileostomy placed, and his midline incision currently has a wound VAC. The area has been sore since surgery. He has had several wound VAC packing changes in the last couple days, but when home health nurse was doing it today, it started bleeding and he had extraordinary pain. He denies any new internal abdominal pain, everything seems to be at the incision where the wound VAC sponge sets. He is not currently anticoagulated, no fevers or chills, or any other new symptoms except for some mild nausea due to the increased pain. - Past Medical History (1) Bipolar disorder Status: Chronic (2) Crohn's disease Status: Chronic (3) Diverticulitis Status: Chronic (4) GERD (gastroesophageal reflux disease) Status: Chronic (5) IBS (irritable bowel syndrome) Status: Chronic (6) Intermittent explosive disorder Status: Chronic (7) PTSD (post-traumatic stress disorder) Status: Chronic Past Medical History - Allergies and Home Meds Allergies/Adverse Reactions: Allergies dextromethorphan HBr [From NyQuil] Allergy (Verified 06/25/20 04:06) Anaphylaxis doxylamine [From NyQuil] Allergy (Verified 06/25/20 04:06) Anaphylaxis poison mimi extract [Poison Mimi Extract] Allergy (Verified 06/25/20 04:06) Anaphylaxis pseudoephedrine HCl [From NyQuil] Allergy (Verified 06/25/20 04:06) Anaphylaxis venom-honey bee [bee venom (honey bee)] Allergy (Verified 06/25/20 04:06) Anaphylaxis MUSHROOMS Allergy (Uncoded 06/25/20 04:06) Anaphylaxis Primary Care Physician: Hudson Frazier DO [Primary Care Provider] - Surgical History: - - testicular surgery on cyst--nonresectable., left foot Smoking Status: Current every day smoker - Family History Paternal Family History: Family History (Last Updated 11/04/18 @ 07:[address] Ruiz Elaine DO) Other Ulcerative colitis Family History: Reports: Heart Disease, - - murdered Maternal Family History: Family History (Last Updated 11/04/18 @ 07:[address] Ruiz Elaine DO) Other Ulcerative colitis Family History: Reports: No pertinent history Review of Systems General: Denies: Chills, Fever, Sweats Eyes: Denies: Visual changes - bilaterally, Diplopia ENT: Denies: Rhinorrhea, Sore throat Cardiovascular: Denies: Chest pain, Palpitations Respiratory: Denies: Dyspnea, Cough, Dyspnea on exertion Gastrointestinal: Reports: Abdominal pain, Nausea. Denies: Vomiting, Diarrhea, Melena, Hematochezia Genitourinary: Denies: Dysuria, Hematuria, Frequency Musculoskeletal: Denies: Back pain, Extremity Pain Skin: Reports: Wounds. Denies: Rash Neurological: Denies: Headache, Weakness, Numbness Physical Exam Vital Signs/Narrative: Vital Signs Temp Pulse Resp BP Pulse Ox 08/19/20 15:02 102 H 20 H 151/72 H 99 08/19/20 14:50 98.1 F 73 24 H 158/88 H 99 Inital Vital Signs reviewed: Yes General: Well nourished, Well developed, Acute Distress - Painful, mild Head: Normocephalic, Atraumatic Eyes: Perrl, EOMI ENT: Moist mucous membranes, No rhinorrhea Neck: Supple, Nontender Cardiovascular: Regular rate, Regular rhythm, No murmurs Respiratory: No distress, CTA bilaterally, Chest nontender Abdomen: Soft, Nondistended, Normal bowel sounds, Tender - Extremely tender around midline abdominal wound, where wound VAC sponge is in place with a clear covering. No surrounding erythema or appearance of cellulitis. Healthy- appearing ileostomy to the right of the wound no abdominal tenderness in the areas away from the midline incision., Guarding - Voluntary, around midline abdominal wound. Negative for: Rebound tenderness Back: Nontender, Normal Inspection Extremities: Nontender, No edema Skin: Normal color, No rash Neurological: Alert, Oriented x3, Cranial nerves II-XII grossly intact, Normal Strength, Normal Sensation Psychological: Normal Mood, Tearful - And anxious Diagnostic/Tx/Re-eval - Medical Decision Making In discussing with wound care nurse, they recommend removing the wound VAC and associated sponges and replacing with a wet-to-dry dressing only since there was bleeding and there could be more bleeding, this is what they recommend so that they can put a new wound VAC dressing on tomorrow at home. Procedural sedation was performed in order to perform this dressing change and evaluate his wound given the amount of pain that he was in, and doing so the wound was inspected it appears healthy with no signs of infarction or necrosis or infection. There are some blood clots in the subcutaneous tissue at the top of the wound, there is no active bleeding. Nursing placed a wet-to-dry dressing, he recovered without any issues. Procedures Procedure(s): Procedural sedation --patient had been n.p.o. for more than 6 hours. He was sedated with a total of 120 mg propofol, just over 1 mg/kg. IV fluids were given. There were no adverse reactions and he recovered uneventfully. Moderate sedation was achieved adequately. ED Disposition - Plan for ED Patient: Disposition: Home or Assisted Living Diagnosis: Encounter for post surgical wound check, Dressing change or removal, surgical wound Instructions: ED Wound Check Post Op Bleeding Referrals: Hudson Frazier DO [Primary Care Provider] - wound care, RN [Other] (tomorrow as scheduled for new wound vac dressing /sponges)
[2020-08-19] MEDS: HYDROmorphone 1 MG/ML Syringe IV (15:38)
[2020-08-19] MEDS: 0.9% Normal Saline 1,000 ML 999 ML IV (15:38)
== END 2020-08-19 17:25 | disposition home or self-care (01) ==
LOC: ED 16:24
PROVIDERS: Emergency Provider Emergency Medicine; PCP Family Medicine
DX: Z48.01 Encounter for change or removal of surgical wound dressing (principal); F17.200 Nicotine dependence, unspecified, uncomplicated
CPT/HCPCS: 96374; 96375; 99152; 99285; J7030; A4216

== ENCOUNTER 2020-08-20 15:14 | Emergency (ER) | payer MEDICARE, MEDICAID, SELFPAY ==
[2020-08-19 14:50] VITALS: BMI 33.7
[2020-08-20 15:15] VITALS: BP 149/86; PULSE 76; RESP 18; TEMP 37; O2SAT 97; BMI 33.7
[2020-08-20 15:21] VITALS: BP 149/86; PULSE 76; RESP 18; TEMP 37; O2SAT 97
--- NOTE | 2020-08-20 15:43 | CT_ITS ---
STUDY: CT ABDOMEN AND PELVIS WITH CONTRAST REASON FOR EXAM: Male, 30 years old. BOWEL SURG LAST WEEK, SEVERE PAIN TO AREA, SECTION LEFT OPEN WOUND VAC REMOVED YESTERDAY, COLOSTOMY, HX-CROHNS, DIVERTICULITIS, HTN, COPD RADIATION DOSAGE (If Supplied By Facility): CTDIvol = ( 13.56 ) mGy, DLP = ( 1309.8 ) mGycm TECHNIQUE: Transaxial images were obtained from the dome of the diaphragm to the symphysis pubis without oral contrast. IV 100mL Isovue-370 was administered. Sagittal and coronal images were reconstructed. Individualized dose optimization techniques were used for this CT. COMPARISON: 06/25/2020. FINDINGS: The visualized lung bases are unremarkable. The visualized portions of the heart are within normal limits. Normal liver. Normal gallbladder and extrahepatic biliary system. Normal spleen. Normal pancreas. Normal bilateral adrenal glands. Normal right kidney. Normal left kidney. Evaluation of the GI tract is limited by the absence of oral contrast. Grossly normal stomach. Grossly normal small bowel. No dilated loops of bowel or evidence for obstruction. Cannot exclude segments of bowel wall thickening. Since prior study there has been left colectomy with a right lower quadrant ostomy which has a grossly normal appearance. No evidence for obstruction. Cannot exclude segments of large bowel wall thickening. Normal appendix. No free fluid. No evidence for abscess. Normal abdominal aorta. Normal inferior vena cava. There is borderline retroperitoneal lymphadenopathy with enlarged nodes no greater than 10mm in the short axis diameter. Normal urinary bladder. The vertical midline abdominal incision remains partially open. Normal osseous structures. CT/Abdomen/Pelvis W IV Cont ONLY IMPRESSION: No acute abnormality within the abdomen or pelvis status post left colectomy. Electronically Signed: Armando Rebollar MD at 17:24 EST , Service support ,
[2020-08-20] MEDS: 0.9% Normal Saline 1,000 ML 1000 ML IV (16:14)
[2020-08-20] MEDS: Morphine 4 MG/ML Syringe IV ×2 (16:15→18:28)
[2020-08-20] MEDS: Ondansetron 4 MG/2 ML Vial IV (16:15)
[2020-08-20 16:20] LABS: Absolute Lymphocyte Count 1.82 X10^3/uL (0.83-4.51); Absolute Neutrophil Count 6.8 X10^3/uL (2.0-7.7); Basophil# 0.02 X10^3/uL; Basophil% 0.2 % (0-1); Eosinophil# 0.64 X10^3/uL; Eosinophils% 6.6 % (0-5); Hematocrit 35.9 % (40-54); Hemoglobin 11.5 g/dL (13.0-16.5); Lymphocyte # 1.82 X10^3/ul (4.0); Lymphocyte % 18.7 % (19-41); Mean Corpuscular Hgb 29.1 pg (27.0-32.0); Mean Corpuscular Volume 90.9 fL (80-94); Mean Platelet Vol. 9.9 fl (6.2-12.0); Monocyte# 0.33 X10^3/uL; Monocyte% 3.4 % (0-10); NRBC Flagged by Analyzer 0 % (0-5); Neutrophil # 6.82 X10^3/uL (2.7-7.7); Neutrophil % 69.9 % (47-70); Platelet Count 433 K/mm3 (150-450); RBC Distribution Width CV 13.3 % (11.6-14.6); Red Blood Count 3.95 M/mm3 (4.6-6.2); White Blood Count 9.8 K/mm3 (4.4-11.0)
[2020-08-20 16:23] VITALS: BP 155/94; PULSE 86; RESP 17; TEMP 36.7
[2020-08-20 16:32] VITALS: BP 140/86
[2020-08-20 16:36] LABS: ALB/GLOB Ratio 0.9 RATIO (0.9-2.4); AST(SGOT) 14 U/L (15-37); Alanine Aminotransfer ALT/SGPT 33 U/L (16-61); Albumin, Serum 3.6 g/dL (3.2-5.0); Alkaline Phosphatase 66 U/L (45-117); Anion Gap 1 (5-15); BUN 11 mg/dL (7-18); BUN/Creat Ratio 12.9 RATIO (10-20); Calcium,Total 9.1 mg/dL (8.5-10.1); Chloride 109 mmol/L (98-107); Creatinine, Serum 0.85 mg/dL (0.70-1.30); EST Glomerular Filtration Rate 111 mL/min (>60); Est Glom Filt Rate - Afr Amer 135 mL/min (>60); Estimated Creatinine Clearance 139.48 ml/min; Globulin 4.1 g/dL (2.2-4.2); Glucose 95 mg/dL (74-106); Lipase 282 U/L (73-393); Potassium 3.5 mmol/L (3.5-5.1); Protein, Total 7.7 g/dL (6.4-8.2); Sodium Level 139 mmol/L (136-145)
--- NOTE | 2020-08-20 16:48 | ED.VISSUMM ---
- ER Visit Summary Date of Service: 08/20/20 Chief Complaint: Abdominal pain History of Present Illness: The patient is a [address] Hughes. He reports that approximately 11 days ago he had a left hemicolectomy by Dr. Jewell at [facility] because he had perforation during a colonoscopy. He states that they had to leave the wound open. He had a wound VAC in place until yesterday. Patient reports that the dressing changes are incredibly painful despite his Percocet. Is a sharp, burning pain is 10 of 10 at worst 9-10 currently. He is had nausea without vomiting. His colostomy is draining normally without blood. He denies any fever, chills, dysuria, frequency or other complaints. Physical Examination: Vitals: Stable. Afebrile. General: Well-nourished and well-developed. Head: Normocephalic atraumatic. Neck: Supple, no lymphadenopathy. No JVD. Nontender. Cardiovascular: Regular rate and rhythm. No murmurs. Respiratory: No respiratory distress. Clear to auscultation bilaterally. Abdominal: Soft, severe tenderness palpation surrounding the open wound to the left side of his abdomen. There is no erythema, warmth, or induration. There is no necrosis or drainage., nondistended, normal bowel sounds. No guarding, rebound, or peritoneal signs. Back: Nontender. Extremities: Nontender, no edema. Skin: Normal color, no rash. Neurologic: Alert and oriented ?3. Cranial nerves II through XII are intact. Normal strength and sensation. Psych: Normal affect. Test Results: CBC shows an H&H 11.5 and 35.9, eosinophils of 7, lymphocytes of 19, immature granulocytes 1.2%. Chem-7 shows a chloride of 109. LFTs show an AST of 14. His lipase is 282. Clinical Impression(s) from Imaging Studies Abdomen/Pelvis CT 08/20/20 15:43 IMPRESSION: No acute abnormality within the abdomen or pelvis status post left colectomy. Electronically Signed: Armando Rebollar MD at 17:24 EST , Service support , Emergency Department Course and Treatment: Patient would not allow his home health nurse to change his dressing. He was given morphine IV and the dressing was changed.. However, I had a prolonged discussion with him that coming to the emergency department for IV medications for dressing changes is not appropriate. Treatment Plan: Patient will be discharged instructions to take 2 Percocet approximately 1 hour prior to a dressing change. Follow-up with his surgeon as previously scheduled. He is also given the phone number for the wound clinic. Return to the emergency department for any worsening symptoms. Disposition: To home in improved and stable condition. Impression: 1. 11 days status post left hemicolectomy. This note was generated with [employer] dictation software. It may contain incorrect words, spelling, and punctuation that were not noted in review of the chart prior to signing ED Disposition - Plan for ED Patient: Instructions: ED Wound Care Referrals: Hudson Frazier DO [Primary Care Provider] - Clinic,Wound [None] - As soon as possible
[2020-08-20 18:55] VITALS: BP 152/76; PULSE 88; RESP 19; TEMP 37.1
== END 2020-08-20 18:55 | disposition home or self-care (01) ==
LOC: ED 15:30
PROVIDERS: Emergency Provider Emergency Medicine; PCP Family Medicine
DX: R11.0 Nausea (principal); T81.89XA Other complications of procedures, not elsewhere classified, initial encounter; F17.200 Nicotine dependence, unspecified, uncomplicated; Z93.3 Colostomy status
CPT/HCPCS: 74177; 80053; 83690; 85025; 96361; 96374; 96375; 96376; 99285; Q9967; J2405

== ENCOUNTER 2020-08-23 13:02 | Emergency (ER) | payer MEDICARE, MEDICAID, SELFPAY ==
[2020-08-23 13:02] VITALS: BP 146/91; PULSE 105; RESP 18; TEMP 36.7; O2SAT 100; BMI 33.2
--- NOTE | 2020-08-23 14:06 | ED.VIS.GEN ---
History of Present Illness Chief Complaint: Wound Informant: Patient Onset: Month(s) Maximum Severity: Mild Narrative: The patient presents to the emergency department asking that his wound VAC to the anterior abdominal wall lesion be removed He has a history of colostomy, has history of infection involving the anterior abdominal wall he has had a wound VAC on this area intermittently for weeks he just had one placed on Saturday by wound VAC nurses the drainage apparently is very low and now it is desired that the wound VAC be removed and he go back to wet-to-dry dressings Visiting nurse was at his home today to do all of the above he did not wish to have that done at home as he was under the impression that there was some special mechanism that is used in the emergency department to remove the wound VAC, he does not have any ability to describe the special mechanism. He has had no fever no cough his ostomy outputs have been normal again the wound VAC mechanism is to be removed as it is no longer necessary per his providers Past Medical History - Allergies and Home Meds Allergies/Adverse Reactions: Allergies dextromethorphan HBr [From NyQuil] Allergy (Verified 08/23/20 13:05) Anaphylaxis doxylamine [From NyQuil] Allergy (Verified 08/23/20 13:05) Anaphylaxis poison mimi extract [Poison Mimi Extract] Allergy (Verified 08/23/20 13:05) Anaphylaxis pseudoephedrine HCl [From NyQuil] Allergy (Verified 08/23/20 13:05) Anaphylaxis venom-honey bee [bee venom (honey bee)] Allergy (Verified 08/23/20 13:05) Anaphylaxis MUSHROOMS Allergy (Uncoded 08/23/20 13:05) Anaphylaxis Primary Care Physician: Hudson rFazier DO [Primary Care Provider] - Past Medical History: - - Colostomy anterior abdominal wall infection wound VAC and as above Surgical History: - - testicular surgery on cyst--nonresectable., left foot Smoking Status: Current every day smoker - Family History Paternal Family History: Family History (Last Updated 11/04/18 @ 07:[address] Ruiz Elaine DO) Other Ulcerative colitis Family History: Reports: Heart Disease, - - murdered Maternal Family History: Family History (Last Updated 11/04/18 @ 07:[address] Ruiz Elaine DO) Other Ulcerative colitis Family History: Reports: No pertinent history Review of Systems General: Denies: Chills, Fever, Sweats Eyes: Denies: Visual changes - bilaterally, Diplopia ENT: Denies: Rhinorrhea, Sore throat Cardiovascular: Denies: Chest pain, Palpitations Respiratory: Denies: Dyspnea, Cough, Dyspnea on exertion Gastrointestinal: Reports: Abdominal pain. Denies: Nausea, Vomiting, Diarrhea, Melena, Hematochezia Genitourinary: Denies: Dysuria, Hematuria, Frequency Musculoskeletal: Denies: Back pain, Extremity Pain Skin: Denies: Rash, Wounds Neurological: Denies: Headache, Weakness, Numbness Physical Exam Vital Signs/Narrative: Vital Signs Temp Pulse Resp BP Pulse Ox 08/23/20 13:02 98.1 F 105 H 18 146/91 H 100 General: Well nourished, Well developed, No Acute Distress Head: Normocephalic, Atraumatic Eyes: Perrl, EOMI ENT: Moist mucous membranes, No rhinorrhea Neck: Supple, Nontender Cardiovascular: Regular rate, Regular rhythm, No murmurs Respiratory: No distress, CTA bilaterally, Chest nontender Abdomen: Soft, Nontender, Nondistended, Normal bowel sounds, - - The patient has a colostomy in place that is intact, just to the medial side of the colostomy there is a wound VAC that is attached it appears to be applied via tape and adhesive the area appears to be completely intact there is no drainage foul odor around the wound VAC Back: Nontender, Normal Inspection Extremities: Nontender, No edema Skin: Normal color, No rash Neurological: Alert, Oriented x3, Cranial nerves II-XII grossly intact, Normal Strength, Normal Sensation Psychological: Normal affect, Normal Mood Diagnostic/Tx/Re-eval - Medical Decision Making The patient is indicating he is to have the wound VAC removed and have wet-to-dry dressings placed instead he is managed at the [facility], he had a wound care nurse from that facility at his home today and he did not wish for that individual to remove the wound VAC I explained to him that in general the wound VAC mechanism is removed via removal of the adhesive etc. 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 that when anybody tries to approach the wound to manage it it causes severe anxiety and him to where he begins to scream and yell discussed all the above with the patient and the staff he is medicated with incremental doses of morphine initially 8 mg later a second 8 mg subcu Ativan 2 mg IM when this all took effect we were able to gently remove the wound VAC and wound care staff were able to apply the appropriate wet-to-dry dressings per the protocol that he follows He has been watched he is comfortable with discharged home to continue his outpatient management of his providers Home stable Impression final anterior abdominal wound requiring emergency department therapy, history of abdominal wall infection wound VAC colostomy ED Disposition - Plan for ED Patient: Diagnosis: Open wound anterior abdominal wall Instructions: ED Burn Wound Check FU Infec Referrals: Hudson Frazier DO [Primary Care Provider] - Additional Instructions: Continue your wound care management as you have been instructed by your outpatient providers
[2020-08-23] MEDS: morphine 10 MG/ML Syringe 8 MG SC (15:03)
[2020-08-23] MEDS: morphine 10 MG/ML Syringe 8 MG IM (15:38)
[2020-08-23 15:39] VITALS: BP 165/103; PULSE 115
[2020-08-23] MEDS: LORazepam 2 MG/ML Syringe IM (15:39)
[2020-08-23 16:23] VITALS: PULSE 108; RESP 16; O2SAT 95
== END 2020-08-23 16:24 | disposition home or self-care (01) ==
LOC: ED 14:15
PROVIDERS: Emergency Provider Emergency Medicine; PCP Family Medicine
DX: S31.109A Unspecified open wound of abdominal wall, unspecified quadrant without penetration into peritoneal cavity, initial encounter (principal); F17.200 Nicotine dependence, unspecified, uncomplicated; Z93.3 Colostomy status; X58.XXXA Exposure to other specified factors, initial encounter
CPT/HCPCS: 96372; 96374; 99282

== ENCOUNTER 2021-06-25 21:03 | Emergency (ER) | payer MEDICARE, MEDICAID, SELFPAY ==
[2021-06-25 21:04] VITALS: BP 194/112; PULSE 79; RESP 18; TEMP 36.5; O2SAT 100; BMI 34.0
--- NOTE | 2021-06-25 21:14 | RAD_ITS ---
STUDY: X-RAY - LEFT HAND REASON FOR EXAM: Male, 31 years old. Pain after trauma TECHNIQUE: 3 view(s) of the hand. COMPARISON: None. FINDINGS: Normal radiocarpal articulation. Normal distal radioulnar joint. Normal visualized carpal bones. Normal carpal articulations Normal carpometacarpal articulation of the thumb. Normal second through fifth carpometacarpal joints. There is an acute minimally displaced and angulated boxer''s fracture in the distal fifth metacarpal with soft tissue swelling. No other demonstrated fracture Normal metacarpophalangeal joint of the thumb. Normal interphalangeal joint of the thumb. Normal proximal and distal phalanges of the thumb. Normal metacarpophalangeal joints of the second through fifth fingers. Normal proximal and distal interphalangeal joints of the second through fifth fingers. Normal phalanges of the second through fifth fingers. The soft tissue structures are unremarkable. RAD/Hand Min 3 Views IMPRESSION: Acute, minimally displaced and angulated fracture of the distal fifth metacarpal with soft tissue swelling Electronically Signed: Eh Mo MD at 21:45 EDT , Service support ,
--- NOTE | 2021-06-25 22:02 | EX.ED.UPPERE ---
HPI History of Present Illness Chief Complaint: Upper Extremity Injury Informant: patient Narrative Narrative: 31-year-old male states that earlier tonight he was punching boards with a friend. He states that he injured his left hand. He is able to remove his ring. He has been trying Tylenol and ice continues to swell and hurt. [facility] Medical History (Updated 06/25/21 @ 22:[address] Kulwinder Mac DO) Bipolar disorder Hemorrhoids IBS (irritable bowel syndrome) PTSD (post-traumatic stress disorder) Testicular cyst Home Medications Acetaminophen 1,500 mg PO DAILY@1030 11/24/19 [History Last Taken 06/24/20] tizanidine 4 mg PO QHS 01/08/20 [History Last Taken 06/23/20] hydroxyzine HCl 50 mg PO BID 05/18/20 [History Last Taken 06/24/20 08:00] oxycodone-acetaminophen 1 tab PO Q6H PRN PRN 08/20/20 [History Last Taken Unknown] oxycodone-acetaminophen 1 tab PO Q6H PRN PRN 3 Days #12 tablet 06/25/21 [Rx Last Taken Unknown] Allergy/AdvReac Type Severity Reaction Status Date / Time dextromethorphan HBr Allergy Anaphylaxis Verified 08/23/20 13:05 [From NyQuil] doxylamine [From NyQuil] Allergy Anaphylaxis Verified 08/23/20 13:05 poison mimi extract Allergy Anaphylaxis Verified 08/23/20 13:05 [Poison Mimi Extract] pseudoephedrine HCl Allergy Anaphylaxis Verified 08/23/20 13:05 [From NyQuil] venom-honey bee Allergy Anaphylaxis Verified 08/23/20 13:05 [bee venom (honey bee)] MUSHROOMS Allergy Anaphylaxis Uncoded 08/23/20 13:05 Family History (Updated 11/04/18 @ 07:[address] Ruiz Elaine DO) Other Ulcerative colitis Surgical History (Updated 06/25/21 @ 22:[address] Kulwinder Mac DO) History of partial colectomy Social History (Updated 06/25/21 @ 22:[address] Kulwinder Mac DO) Smoking Status: Smoker, status unknown substance use type: does not use ROS ROS ED Constitutional Constitutional ED: Denies chills or weight loss Eyes Eyes: Denies change in vision or diplopia ENT ENT ED: Denies ear pain, rhinorrhea or sore throat Cardiovascular Cardiovascular: Denies chest pain, orthopnea, palpitations or racing heartbeat Respiratory/Chest Respiratory/Chest: Denies cough, dyspnea or orthopnea Gastrointestinal Gastrointestinal: Denies abdominal pain, diarrhea, nausea or vomiting Genitourinary Genitourinary ED: Denies dysuria, hematuria or urinary frequency Musculoskeletal Musculoskeletal: Reports other Details: See history of present illness ; Denies arthralgias or myalgias Integumentary Denies abscess or rash Neurologic Neurologic: Denies headache(s) or weakness Psychiatric Psychiatric: Denies anxiety, depression, suicidal ideation or suicidal thoughts Endocrine Endocrinology: Denies polydipsia, polyphagia or polyuria Allergic/Immunologic Allergic/Immunologic ED: Denies mouth swelling, tongue swelling or urticaria EXAM Physical Exam Const Vital Signs: 06/25/21 21:04 Temperature 97.7 F L Temperature Source Temporal Pulse Rate 79 Respiratory Rate 18 Blood Pressure 194/112 H Blood Pressure Mean 139 Pulse Ox 100 Positive well nourished and well developed General Appearance ED: well developed HEENT Reports normocephalic, head/scalp atraumatic and moist mucous membranes Eyes PERRL and EOMs intact bilaterally Neck no lymphadenopathy, supple and no JVD Resp normal respiratory effort and clear to auscultation bilaterally Cardio regular rate, regular rhythm and no murmurs GI normal to inspection, nondistended, normoactive bowel sounds and non-tender Palpation: soft Back/Spine no CVA tenderness and normal ROM Extremity Extremity Narrative: Tenderness swelling and ecchymosis over the dorsum of the left hand particularly at the fifth and fourth metacarpal. There is a superficial abrasion in between the webspace of the fourth and fifth. Neurovascular intact. General Extremety ED: Negative for edema General Extremity: Negative for edema Neuro oriented x3 and CN's II-XII intact bilaterally Sensorium / Orientation: alert Motor Exam: strength 5/5 throughout Psych mental status grossly normal Mood & Affect: Negative for depressed or tearful Skin no rashes or lesions noted and no wounds MDM MDM MDM Narrative Medical decision making narrative: My interpretation of the plain films of the left hand is an acute minimally displaced angulated fracture of the distal fifth metacarpal. Patient was placed in a ulnar gutter splint using Ortho-Glass. Neurovascular intact. Post application. Patient received oxycodone for pain here in the department of Percocet prescription. He will follow up with orthopedics Lab Data Lab results narrative: My Radiography Diagnostic Testing: Radiology Impression Hand X-Ray 06/25/21 21:14 IMPRESSION: Acute, minimally displaced and angulated fracture of the distal fifth metacarpal with soft tissue swelling Electronically Signed: Eh Mo MD at 21:45 EDT , Service support , Discharge Plan Triage Chief Complaint: Upper Extremity Injury ED Provider: Kulwinder Mac Dx/Rx/DC Orders Clinical Impression: Closed fracture of fifth metacarpal bone of left hand Instructions: ED Boxer Fracture Prescriptions: New oxycodone-acetaminophen [oxycodone-acetaminophen] 1 TABLET tablet 1 tab PO Q6H PRN PRN (Reason: Pain) 3 Days Qty: 12 RF: 0 No Action Acetaminophen 500 MG tablet 1,500 mg PO DAILY@1030 RF: 0 tizanidine 4 MG capsule 4 mg PO QHS RF: 0 hydroxyzine HCl 25 MG tablet 50 mg PO BID RF: 0 oxycodone-acetaminophen 1 TABLET tablet 1 tab PO Q6H PRN PRN (Reason: Pain 1-10 Or Fever) RF: 0 Primary Care Provider: Hudson Frazier Referrals: Hudson Frazier DO [Primary Care Provider] - Jerome Lyn MD [STAFF PHYSICIAN] - As soon as possible Disposition Disposition: Home, Self Care
[2021-06-25] MEDS: oxyCODONE 5 MG Tablet 10 MG PO (22:26)
== END 2021-06-25 22:30 | disposition home or self-care (01) ==
LOC: ED 22:14
PROVIDERS: Emergency Provider Emergency Medicine; PCP Family Medicine
DX: S62.397A Other fracture of fifth metacarpal bone, left hand, initial encounter for closed fracture (principal); F31.9 Bipolar disorder, unspecified; F43.10 Post-traumatic stress disorder, unspecified; Z79.899 Other long term (current) drug therapy; W22.09XA Striking against other stationary object, initial encounter; Y93.89 Activity, other specified; Y92.89 Other specified places as the place of occurrence of the external cause; Y99.8 Other external cause status
CPT/HCPCS: 73130; 99283

== ENCOUNTER 2021-10-02 11:10 | Outpatient (CLI) | payer MEDICARE, MEDICAID, SELFPAY | END 2021-10-02 23:59 | disposition short-term general hospital (02) | LOC: LABSPEC 11:12 | PROVIDERS: PCP Family Medicine; Referring Provider Physician Assistant; Visit Provider Physician Assistant | DX: Z11.52 Encounter for screening for COVID-19 (principal) | CPT/HCPCS: 87635; U0003; U0005 ==

== ENCOUNTER 2021-10-29 21:45 | Emergency (ER) | payer MEDICARE, MEDICAID, SELFPAY ==
[2021-10-29 21:46] VITALS: BP 175/121; PULSE 97; RESP 16; TEMP 36.2; O2SAT 100; BMI 38.1
--- NOTE | 2021-10-29 22:15 | EDS_ITS ---
HPI History of Present Illness HPI Narrative: pain in his right bicep that began 6 days ago. Patient states he felt a pop at that time withPatient presents. Patient states his pain became worse today when he was trying to do some lifting. Patient describes his pain as stabbing, burning, and pulling. Patient states it is worse whenever he tries to lift anything or flex his arm. Patient states it is over the anterior and lateral aspect of the right upper arm. Patient admits to some tingling down into his fingers. Patient states his arm feels weak due to the pain. Patient denies any other injuries. Chief Complaint: Upper Extremity Injury Informant: patient Onset/Context/Timing Onset: Days (6) Context: Sudden Onset Timing: Continuous Quality of Pain: Aching, Burning and - (Pulling) Location: Right bicep area Worsened by: Lifting, flexion of the elbow Relieved by: Nothing Associated Symptoms Associated Symptoms: Positive for Parasthesia and Weakness; Negative for Loss of Funtion PFSH PFSH Medical History Bipolar disorder Hemorrhoids IBS (irritable bowel syndrome) PTSD (post-traumatic stress disorder) Testicular cyst Home Medications Acetaminophen 1,500 mg PO DAILY@1030 11/24/19 [History Last Taken 06/24/20] hydrocodone-acetaminophen 1 tab PO Q6H PRN PRN 3 Days #10 tablet 10/29/21 [Rx Last Taken Unknown] Allergy/AdvReac Type Severity Reaction Status Date / Time dextromethorphan HBr Allergy Anaphylaxis Verified 10/29/21 21:48 [From NyQuil] doxylamine [From NyQuil] Allergy Anaphylaxis Verified 10/29/21 21:48 poison mimi extract Allergy Anaphylaxis Verified 10/29/21 21:48 [Poison Mimi Extract] pseudoephedrine HCl Allergy Anaphylaxis Verified 10/29/21 21:48 [From NyQuil] venom-honey bee Allergy Anaphylaxis Verified 10/29/21 21:48 [bee venom (honey bee)] MUSHROOMS Allergy Anaphylaxis Uncoded 10/29/21 21:48 Family History (Updated 11/04/18 @ 07:[address] Ruiz Elaine DO) Other Ulcerative colitis Surgical History History of partial colectomy Social History Smoking Status: Current every day smoker tobacco type: cigarettes substance use type: does not use ROS ROS ED Constitutional Constitutional ED: Denies chills or fever(s) Eyes Eyes: Denies blurry vision or change in vision ENT ENT ED: Reports sore throat; Denies rhinorrhea Cardiovascular Cardiovascular: Denies chest pain or palpitations Respiratory/Chest Respiratory/Chest: Denies cough or dyspnea Gastrointestinal Gastrointestinal: Denies nausea or vomiting Genitourinary Genitourinary ED: Denies dysuria or hematuria Musculoskeletal Musculoskeletal: Denies back pain or neck pain Integumentary Denies abscess or rash Neurologic Neurologic: Reports paresthesias RUE and weakness; Denies headache(s) Allergic/Immunologic Allergic/Immunologic ED: Denies mouth swelling or urticaria EXAM Physical Exam Const Vital Signs: 10/29/21 21:46 Temperature 97.2 F L Temperature Source Temporal Pulse Rate 97 Respiratory Rate 16 Blood Pressure 175/121 H Blood Pressure Mean 139 Pulse Ox 100 Oxygen Delivery Method Room Air Positive well nourished, well developed and obese General Appearance ED: well developed Nutritional Appearance: obese HEENT Reports moist mucous membranes Neck full ROM and supple Extremity Extremity Narrative: There is tenderness over the anterior and lateral aspect of the right upper arm. There is no obvious deformity. There is no edema or ecch ymosis. There is no bony crepitance or step-off. Range of motion was limited in all motions of the right shoulder and right elbow secondary to pain. Strength is 5/5 in the radial, median, and ulnar areas. Sensation was intact to light touch in the radial, median, and ulnar areas. Radial pulses are equal bilaterally. Capillary refill was less than 2 seconds in all digits. Neuro oriented x3, CN's II-XII intact bilaterally, moves all extremities, no focal motor deficits and no sensory deficits noted Sensorium / Orientation: alert Psych mental status grossly normal MDM MDM MDM Narrative Medical decision making narrative: This is most likely a muscular tear of the bicep muscle. X-rays are not necessary at this time. Patient was given a sling for comfort. Patient was instructed to take his arm out of the sling and do range of motion exercises. Patient was instructed use ice to the area. Patient was given a prescription for a short course of [place] [facility]. Patient was instructed to follow-up with his primary care physician in 3 to 5 days. Patient understood and was agreeable with the plan. All questions were answered. Discharge Plan Triage Chief Complaint: Upper Extremity Injury ED Provider: Ruiz Singh Dx/Rx/DC Orders Clinical Impression: Strain of right biceps muscle Instructions: ED Muscle Strain, Extremity Prescriptions: New hydrocodone-acetaminophen [hydrocodone-acetaminophen] 1 TABLET tablet 1 tab PO Q6H PRN PRN (Reason: Pain) 3 Days Qty: 10 RF: 0 No Action Acetaminophen 500 MG tablet 1,500 mg PO DAILY@1030 RF: 0 Primary Care Provider: Hudson Frazier Referrals: Hudson Frazier, [Primary Care Provider] - 3-5 Days
== END 2021-10-29 22:35 | disposition home or self-care (01) ==
LOC: ED 22:12
PROVIDERS: Emergency Provider Emergency Medicine; PCP Family Medicine; Visit Provider Emergency Medicine
DX: S46.211A Strain of muscle, fascia and tendon of other parts of biceps, right arm, initial encounter (principal); F31.9 Bipolar disorder, unspecified; X50.0XXA Overexertion from strenuous movement or load, initial encounter; F17.210 Nicotine dependence, cigarettes, uncomplicated; F43.10 Post-traumatic stress disorder, unspecified
CPT/HCPCS: 99283

== ENCOUNTER 2022-02-01 13:19 | Emergency (ER) | payer MEDICARE, MEDICAID, SELFPAY ==
[2022-02-01 13:20] VITALS: BP 170/106; PULSE 85; RESP 16; TEMP 36.3; O2SAT 98; BMI 35.6
--- NOTE | 2022-02-01 14:22 | EX.ED.VIS.UR ---
HPI HPI - URI History of Present Illness Chief Complaint: Ear Problem Narrative Narrative: 32-year-old male presenting with nasal congestion which is progressed into hearing difficulties in the right ear. He feels pressure in the right ear. Patient states he was previously seen by urgent care who started him on cefdinir for what he was told was an internal ear infection as well as presumed strep pharyngitis. They also gave him topical antibiotics. He stated that he called back to tell him that he was having difficulty hearing in his ear and was told that he both has an inner ear infection and he needs to have his ear irrigated because he has cerumen. They did not reevaluate the patient. Patient has not had a fever, chills. He is body aches. No cough. He only has nasal congestion. He is unsure if he has seasonal allergies. ROS ROS ED Constitutional Constitutional ED: Denies chills or fever(s) Eyes Eyes: Denies blurry vision or diplopia ENT ENT ED: Reports rhinorrhea and sore throat Cardiovascular Cardiovascular: Denies chest pain Respiratory/Chest Respiratory/Chest: Denies cough or dyspnea Gastrointestinal Gastrointestinal: Denies abdominal pain, nausea or vomiting Genitourinary Genitourinary ED: Denies dysuria or hematuria Musculoskeletal Musculoskeletal: Denies arthralgias or myalgias Integumentary Denies rash Neurologic Neurologic: Denies headache(s) or weakness Psychiatric Psychiatric: Denies anxiety or depression [facility] Medical History Bipolar disorder Hemorrhoids IBS (irritable bowel syndrome) PTSD (post-traumatic stress disorder) Testicular cyst Home Medications Acetaminophen 1,500 mg PO DAILY@1030 11/24/19 [History Last Taken 06/24/20] hydrocodone-acetaminophen 1 tab PO Q6H PRN PRN 3 Days #10 tablet 10/29/21 [Rx Last Taken Unknown] Allergy/AdvReac Type Severity Reaction Status Date / Time dextromethorphan HBr Allergy Anaphylaxis Verified 02/01/22 13:22 [From NyQuil] doxylamine [From NyQuil] Allergy Anaphylaxis Verified 02/01/22 13:22 poison mimi extract Allergy Anaphylaxis Verified 02/01/22 13:22 [Poison Mimi Extract] pseudoephedrine HCl Allergy Anaphylaxis Verified 02/01/22 13:22 [From NyQuil] venom-honey bee Allergy Anaphylaxis Verified 02/01/22 13:22 [bee venom (honey bee)] MUSHROOMS Allergy Anaphylaxis Uncoded 02/01/22 13:22 Family History Other Ulcerative colitis Surgical History History of partial colectomy Social History Smoking Status: Current every day smoker tobacco type: cigarettes substance use type: does not use EXAM Physical Exam Const Vital Signs: 02/01/22 13:20 Temperature 97.3 F L Temperature Source Temporal Pulse Rate 85 Respiratory Rate 16 Blood Pressure 170/106 H Blood Pressure Mean 127 Pulse Ox 98 Oxygen Delivery Method Room Air Positive well nourished General Appearance ED: NAD; Negative for pallor HEENT Reports moist mucous membranes normocephalic and atraumatic External Ear: external ears normal, mastoids normal and no preauricular adenopathy Tympanic Membrane ED: Yes TM abnormal dull, erythematous and fluid behind TM Eyes PERRL and EOMs intact bilaterally Neck no lymphadenopathy, supple and no meningeal signs Resp normal respiratory effort and clear to auscultation bilaterally Cardio Rate: regular rate Rhythm: regular rhythm GI non-tender and non-distended Palpation: soft Neuro oriented x3 Sensorium / Orientation: alert Psych mental status grossly normal Skin General Skin Exam: Negative for jaundice or pallor Lesions: no lesions Rashes: no rashes MDM MDM MDM Narrative Medical decision making narrative: On examination the patient does have nasal congestion does have fluid behind his TMs bilaterally. This is worse on the right. This is a side he is complaining of congestion and pressure. Patient does not have any cerumen impaction and does not need to be irrigated. There is no evidence of otitis media or externa. Patient counseled this is likely due to his nasal congestion. He will be given a dose of Afrin in the ED. I will give him follow-up with ENT to ensure resolution as this is his third visit to both urgent care and the emergency room for similar symptoms. I do not believe the patient needs any more antibiotics. Patient stable for discharge this time. Impression: 1. Nasal congestion 2. Right ear pain Discharge Plan Triage Chief Complaint: Ear Problem ED Provider: Josue Sanchez Dx/Rx/DC Orders Instructions: ED Earache Without Infection (Adult), ED Sinusitis (No Antibiotics) Prescriptions: No Action Acetaminophen 500 MG tablet 1,500 mg PO DAILY@1030 RF: 0 hydrocodone-acetaminophen [hydrocodone-acetaminophen] 1 TABLET tablet 1 tab PO Q6H PRN PRN (Reason: Pain) 3 Days Qty: 10 RF: 0 Primary Care Provider: Hudson Frazier Referrals: Adolfo Jean Baptiste MD [STAFF PHYSICIAN] - 3-5 Days Hudson Frazier DO [Primary Care Provider] - Disposition Disposition: Home, Self Care
[2022-02-01] MEDS: Oxymetazoline 0.05% 1 SPRAY SPRAY.BTL 2 SPRAY NASAL (14:49)
== END 2022-02-01 14:50 | disposition home or self-care (01) ==
PROVIDERS: Emergency Provider Student in an Organized Health Care Education/Training Program; PCP Family Medicine; Visit Provider Student in an Organized Health Care Education/Training Program
DX: R09.81 Nasal congestion (principal); F17.210 Nicotine dependence, cigarettes, uncomplicated; H92.01 Otalgia, right ear
CPT/HCPCS: 99283

== ENCOUNTER 2022-03-29 09:54 | Emergency (ER) | payer MEDICARE, MEDICAID, SELFPAY ==
[2022-03-29 09:54] VITALS: BP 151/105; PULSE 86; RESP 18; TEMP 36.6; O2SAT 100; BMI 35.5
--- NOTE | 2022-03-29 10:26 | ED.VIS.BACK ---
HPI History of Present Illness Chief Complaint: Back Detail of Chief Complaint: Central low back pain after helping neighbor 3 trees Informant: patient Onset/Context/Timing Onset: Yesterday Context: Sudden Onset Injury: lifting, twisting, bending and repetitive motion Timing: Continuous Quality: Dull and Aching Location: Lumbar Current Severity: Moderate Maximum Severity: Severe Worsened by: improves with Movement, Ambulation, Bending and Lifting; worse with Night time pain Relieved by: Nothing Associated Symptoms Associated Symptoms: Negative for Numbness, Tingling, Radiation to Right Leg, Radiation to Left Leg, Fever, Abdominal Pain, Dysuria, Unable to Ambulate, Unable to Transfer, Urinary Retention, Urinary Incontinence, Constipation or Fecal Incontinence Narrative Narrative: Patient is a 32-year-old male who helped his neighbor cut and move 3 3 steps fell. He denies direct trauma. He denies radicular pain. He denies bowel or bladder dysfunction. He denies saddle paresthesia or anesthesia. He denies foot drop. He denies buckling of his knees going up or down steps. He denies GI or symptoms. He denies prior back problems. He does have history of diverticulitis status post colostomy Prior similar symptoms: No Recent Illness/Hospitalization: No PFSH PFSH Medical History Bipolar disorder Hemorrhoids IBS (irritable bowel syndrome) PTSD (post-traumatic stress disorder) Testicular cyst Home Medications Acetaminophen 1,500 mg PO DAILY@1030 PAIN 11/24/19 [History Last Taken 06/24/20] hydrocodone-acetaminophen 5-325mg 5mg-325mg 1 tab PO Q6H PRN PRN Pain 3 days #10 TABLETS 10/29/21 [Rx Last Taken Unknown] hydrocodone-acetaminophen 5-325mg 5mg-325mg 1 tab PO Q6H PRN PRN Pain 3 days #10 TABLETS 03/29/22 [Rx Last Taken Unknown] naproxen 500 mg tablet 500 mg PO BID #10 tabs 03/29/22 [Rx Last Taken Unknown] Allergy/AdvReac Type Severity Reaction Status Date / Time dextromethorphan HBr Allergy Anaphylaxis Verified 02/01/22 13:22 [From NyQuil] doxylamine [From NyQuil] Allergy Anaphylaxis Verified 02/01/22 13:22 hornet venom Allergy Anaphylaxis Verified 03/29/22 09:57 poison mimi extract Allergy Anaphylaxis Verified 02/01/22 13:22 [Poison Mimi Extract] pseudoephedrine HCl Allergy Anaphylaxis Verified 02/01/22 13:22 [From NyQuil] venom-honey bee Allergy Anaphylaxis Verified 02/01/22 13:22 [bee venom (honey bee)] MUSHROOMS Allergy Anaphylaxis Uncoded 02/01/22 13:22 Family History Other Ulcerative colitis Surgical History History of partial colectomy Social History (Updated 03/29/22 @ 10:[address] Philip Dudley MD) household members: spouse and children Smoking Status: Current every day smoker tobacco type: cigarettes substance use type: does not use ROS ROS ED Constitutional Constitutional ED: Denies chills, fever(s), subjective, sweats or weight loss Cardiovascular Cardiovascular: Denies chest pain Respiratory/Chest Respiratory/Chest: Denies dyspnea Gastrointestinal Gastrointestinal: Denies abdominal pain, constipation, diarrhea, melena, nausea or vomiting Genitourinary Genitourinary ED: Denies dysuria, hematuria or urinary frequency Musculoskeletal Musculoskeletal: Reports back pain; Denies arthralgias, myalgias or neck pain Integumentary Denies abscess, Abrasions or rash Neurologic Neurologic: Denies headache(s), paresthesias or weakness Hematologic/Lymphatic Hematologic/Lymphatic: Denies easy bleeding, easy bruising or lymphadenopathy Allergic/Immunologic Allergic/Immunologic ED: Denies mouth swelling, tongue swelling or urticaria EXAM Physical Exam Const Vital Signs: 03/29/22 09:54 Temperature 97.9 F Temperature Source Temporal Pulse Rate 86 Respiratory Rate 18 Blood Pressure 151/105 H Blood Pressure Mean 120 Pulse Ox 100 Oxygen Delivery Method Room Air Positive well nourished, well developed and obese; Negative for cachectic, contractures or unkempt Constitutional Narrative: Patient is in obvious discomfort. He was grimacing walking from triage to his room. He did not have a foot drop. General Appearance ED: well developed; Negative for unkempt, cachectic, contractures, NAD or pallor Nutritional Appearance: obese; Negative for cachectic HEENT Reports moist mucous membranes HEENT Narrative: Ears normal. Nares patent. Mucosa moist. Negative for trauma or tenderness Neck no lymphadenopathy, supple and no JVD Resp normal respiratory effort and clear to auscultation bilaterally Cardio regular rate, regular rhythm, S1 normal heart sound, S2 normal heart sound and no murmurs GI GI Narrative: Well-healed surgical scars. Slightly tympanitic. Bowel sounds are diminished. There is no tenderness, guarding or rebound. Back/Spine normal to inspection; Negative for no thoracic nor lumbar tenderness Back/Spine Narrative: There is midline lumbar pain as well as. Lumbar pain. Straight leg test elicited pain centrally at 45 degrees bilateral. There was no radicular pain. Patella and ankle reflex are 2+ and symmetric player there is no clonus Babinski sign noted. EHLs intact. 5/5 plantar and dorsi flexion strength. Sensation normal over L3, L4, L5 and S1. Extremity normal to inspection and no clubbing, cyanosis or edema General Extremety ED: Negative for edema General Extremity: Negative for edema Neuro oriented x3 and no sensory deficits noted Sensorium / Orientation: alert Motor Exam: strength 5/5 throughout Deep Tendon Reflexes: Rt Patellar (L4): 2+, Lt Patellar (L4): 2+, Rt Ankle (S1): 2+ and Lt Ankle (S1): 2+ Deep Tendon Reflexes Back: Rt Patellar (L4): 2+, Lt Patellar (L4): 2+, Rt Ankle (S1): 2+ and Lt Ankle (S1): 2+ Plantar Reflex: Downgoing: bilateral (No clonus) Psych mental status grossly normal Appearance: Negative for unkempt Skin no rashes or lesions noted and no wounds General Skin Exam: Negative for jaundice or pallor MDM MDM MDM Narrative Medical decision making narrative: She presents with history consistent with muscular back pain. Based on the limited exam because patient's not able to walk on heels and toes or do other activities because of his pain will reassess after appropriate relief. Patient was reassessed at 1124. Patient's pain improved significantly. He is not pain-free. He is able to stand. Is able to walk on heels and toes. Is able to perform a 1 legged squat right and left. Movement exacerbates his pain. He does not have radicular pain. Patient was discharged home with appropriate home-going instruction. Discharge Plan Triage Chief Complaint: Back ED Provider: Philip Dudley Dx/Rx/DC Orders Clinical Impression: Low back pain Instructions: ED Back Pain (Acute or Chronic), ED Back Sprain/Strain Prescriptions: New hydrocodone-acetaminophen [hydrocodone-acetaminophen] 5-325 mg tablet 1 tab PO Q6H PRN PRN (Reason: Pain) 3 Days Qty: 10 0RF naproxen 500 mg tablet 500 mg PO BID Qty: 10 0RF No Action Acetaminophen 500 MG tablet 1,500 mg PO DAILY@1030 hydrocodone-acetaminophen [hydrocodone-acetaminophen] 1 TABLET tablet 1 tab PO Q6H PRN PRN (Reason: Pain) 3 Days Qty: 10 0RF Primary Care Provider: Hudson Frazier Referrals: Hudson Frazier, [Primary Care Provider] - 3-5 Days if not improving Disposition Disposition: Home, Self Care
[2022-03-29] MEDS: morphine 8 MG/ML Syringe IV (10:56)
[2022-03-29] MEDS: Ondansetron 4 MG/2 ML Vial IV (10:57)
[2022-03-29] MEDS: Ketorolac 15 MG/ML Vial IV (10:57)
[2022-03-29 11:32] VITALS: RESP 18
[2022-03-29] MEDS: Lidocaine 5% Patch 1 PATCH TOPICAL (11:52)
== END 2022-03-29 11:57 | disposition home or self-care (01) ==
PROVIDERS: Emergency Provider Emergency Medicine; PCP Family Medicine; Visit Provider Emergency Medicine
DX: M54.50 Low back pain, unspecified (principal); F17.210 Nicotine dependence, cigarettes, uncomplicated; E66.9 Obesity, unspecified
CPT/HCPCS: 96374; 96375; 99283; A4216; J2405

== ENCOUNTER 2022-11-23 16:18 | Emergency (ER) | payer MEDICARE, MEDICAID, SELFPAY ==
[2022-11-23 16:19] VITALS: BP 203/109; PULSE 102; RESP 18; TEMP 36.7; O2SAT 97; BMI 37.7
== END 2022-11-23 17:45 | disposition left against medical advice (07) ==
LOC: ED 18:04
PROVIDERS: PCP Family Medicine
DX: Z53.21 Procedure and treatment not carried out due to patient leaving prior to being seen by health care provider (principal)

== ENCOUNTER 2022-11-24 17:13 | Emergency (ER) | payer MEDICARE, MEDICAID, SELFPAY ==
[2022-11-24 17:14] VITALS: BP 145/91; PULSE 73; RESP 26; TEMP 36.9; O2SAT 96; BMI 37.4
--- NOTE | 2022-11-24 17:18 | ED.RN ---
PT STATES HE HAS REACHED HIS ACETAMINOPHEN LIMIT FOR THE DAY. PT HAS TAKEN 2500 MG SINCE 0830. LAST DOSE AT 1600 AT HOME.
[2022-11-24 17:22] VITALS: BP 145/91; PULSE 65; PULSE 70; RESP 15; RESP 21; TEMP 36.9; O2SAT 96; O2SAT 97
--- NOTE | 2022-11-24 17:39 | EKG12_ITS ---
Test Reason : E Blood Pressure : / mmHG Vent. Rate : 057 BPM Atrial Rate : 057 BPM P-R Int : 150 ms QRS Dur : 102 ms QT Int : 412 ms P-R-T Axes : 025 -44 026 degrees QTc Int : 401 ms Sinus bradycardia Left axis deviation Abnormal ECG Confirmed by PAMELA ANDRADE, MATHEW ([id number]), senior editor DAMION KIRBY ([id number]) on 11/27/2022 9:26:46 AM Referred By: BETHANY Confirmed By:MATHEW SANTIAGO MD
--- NOTE | 2022-11-24 17:39 | US_ITS ---
STUDY: SCROTUM ULTRASOUND REASON FOR EXAM: Male, 32 years old. Right testicular pain since diagnosed with COVID 4 days ago. TECHNIQUE: Ultrasound evaluation of the scrotum was performed with color Doppler and static adames-scale imaging. COMPARISON: None. FINDINGS: RIGHT TESTICLE INTRATESTICULAR: There is a normal size of the right testicle. The right testicle measures 4.4 x 2.9 x 2.1 cm. There is a homogenous echotexture. There is normal arterial and normal venous vascularity. There is no demonstrated right testicular mass or cyst. EXTRATESTICULAR: The epididymis is enlarged The epididymis head measures 2.1 x 2.4 x 1.3 cm. There is normal vascularity of the epididymis. There is a 2.4 x 1.8 x 1.9 cm epididymal head cyst. There is no demonstrated hydrocele. There is no demonstrated varicocele. There is no demonstrated extratesticular mass or cyst. LEFT TESTICLE INTRATESTICULAR: There is a normal size of the left testicle. The left testicle measures 4.4 x 2.9 x 2.2 cm. There is a homogenous echotexture. There is normal arterial and normal venous vascularity. There is no demonstrated left testicular mass or cyst. EXTRATESTICULAR: The epididymis is normal in size. The epididymis head measures 1.1 x 1.2 x 1.2 cm. There is normal vascularity of the epididymis. There is a 2 mm epididymal head cyst. There is a small hydrocele. There are mild prominent extratesticular veins consistent with a varicocele. There is no demonstrated extratesticular mass or cyst. US/Testicular with Arterial Flow IMPRESSION: 1. Left varicocele. 2. Small left hydrocele. 3. Bilateral epididymal head cysts, right greater than left. 4. Normal testicles. Electronically Signed: Keith Hope DO at 19:23 EST Reading Location ID and State: [id number] Tel [phone], Service support ,
--- NOTE | 2022-11-24 17:41 | ED.VIS.CHEST ---
HPI History of Present Illness Chief Complaint: Chest Pain Narrative Narrative: 32-year-old male past medical history of bipolar disorder, PTSD, Crohn disease, intermittent explosive disorder presents with chest pain, shortness of breath, and right testicular pain. He states he started having symptoms of COVID with shortness of breath on Saturday of last week, 5 days ago. His cousin also tested positive for COVID. He states he did a home COVID test that was positive, then later on in the day 1 that was negative. He went to [facility] yesterday, where he states he tested positive again. He began having right testicular pain that squeezes and then releases for a few seconds, up to a minute. He denies any dysuria or hematuria. He does state that there is a cyst on his right testicle that they found, but did not want to drain or remove because they said it would leave me sterile so he is he reports that the urologist sewed me back up and left it. Symptoms of testicular pain began yesterday evening. He had a complete work-up at the outside facility, but was told to return should his symptoms worsen. He states that he feels more short of breath, and was having chest pain also since his release. Additionally, he states that he has numbness and tingling of his hands and feet bilaterally. He presents for reevaluation of his COVID-19 status, and for his testicular pain on the right. [facility] Medical History Bipolar disorder Hemorrhoids IBS (irritable bowel syndrome) PTSD (post-traumatic stress disorder) Testicular cyst Home Medications Acetaminophen 1,500 mg PO DAILY@1030 PAIN 11/24/19 [History Last Taken 06/24/20] hydrocodone-acetaminophen 5-325mg 5mg-325mg 1 tab PO Q6H PRN PRN Pain 3 days #10 TABLETS 10/29/21 [Rx Last Taken Unknown] hydrocodone-acetaminophen 5-325mg 5mg-325mg 1 tab PO Q6H PRN PRN Pain 3 days #10 TABLETS 03/29/22 [Rx Last Taken Unknown] naproxen 500 mg tablet 500 mg PO BID #10 tabs 03/29/22 [Rx Last Taken Unknown] Allergy/AdvReac Type Severity Reaction Status Date / Time dextromethorphan HBr Allergy Anaphylaxis Verified 11/24/22 17:18 [From NyQuil] doxylamine [From NyQuil] Allergy Anaphylaxis Verified 11/24/22 17:18 hornet venom Allergy Anaphylaxis Verified 11/24/22 17:18 mushroom [mushrooms] Allergy Anaphylaxis Verified 11/24/22 17:18 poison mimi extract Allergy Anaphylaxis Verified 11/24/22 17:18 [Poison Mimi Extract] pseudoephedrine HCl Allergy Anaphylaxis Verified 11/24/22 17:18 [From NyQuil] venom-honey bee Allergy Anaphylaxis Verified 11/24/22 17:18 [bee venom (honey bee)] Family History Other Ulcerative colitis Surgical History History of partial colectomy Social History household members: spouse and children Smoking Status: Current every day smoker tobacco type: cigarettes substance use type: does not use ROS ROS ED ROS Narrative Constitutional: No fever, no chills. HEENT: No sore throat. No neck pain. No loss of vision. No rhinorrhea. Cardiovascular: Positive chest pain. No palpitations. No pedal edema. Respiratory: No cough, positive shortness of breath. Abdominal: No abdominal pain. No nausea. No vomiting. Genitourinary: No dysuria. No hematuria. Right testicular pain and squeezing. Musculoskeletal: No myalgias. No arthralgias. Neurologic: No headaches. No dizziness. No lightheadedness. Paresthesias of hands and feet bilaterally. Skin: No rash. No change in color. Psychiatric: No depression. No anxiety. EXAM Physical Exam Narrative Exam Narrative: Afebrile. Vital signs noted. HEENT: Normocephalic. Atraumatic. PERRL, EOMI. Neck soft and supple. No point tenderness or step off. Cardiovascular: Regular rate and rhythm. No murmurs, rubs, or gallops appreciated. Respiratory: No tachypnea. Lungs clear to auscultation bilaterally. Gastrointestinal: Abdomen soft, nontender, with normoactive bowel sounds. No rebound or guarding. Large midline abdominal scar noted in pannus. Genitourinary: Inspection of the right testicle does reveal a right testicular cyst but no erythema, normal lie of testicle. Neurological: Awake. Alert. Nonfocal, nonlateralizing. Skin: No rash. Normal color. No pallor. Musculoskeletal: No pedal edema. Full range of motion extremities. Const Vital Signs: 11/24/22 17:14 11/24/22 17:20 11/24/22 17:22 Temperature 98.5 F Temperature Source Oral Pulse Rate 73 65 Respiratory Rate 26 H 21 H Respiratory Effort Normal Non-Labored Blood Pressure 145/91 H 145/91 H Blood Pressure Mean 109 109 Pulse Ox 96 97 Oxygen Delivery Method Room Air Room Air 11/24/22 17:22 11/24/22 18:31 11/24/22 19:17 Temperature 98.5 F 98.2 F Temperature Source Oral Oral Pulse Rate 70 68 56 L Respiratory Rate 15 12 15 Respiratory Effort Blood Pressure 145/91 H 156/92 H 149/95 H Blood Pressure Mean 109 113 113 Pulse Ox 96 97 95 Oxygen Delivery Method Room Air Room Air Room Air MDM MDM MDM Narrative Medical decision making narrative: Given his right testicular cyst with reported pain, concern would be for intermittent torsion. Given his COVID-19 status that was reported positive,'s pulse ox is 97% on room air without evidence of hypoxia. For his chest pain I will obtain laboratory work in the form of CBC, BMP and troponin. Chest x-ray will also be obtained to rule out interstitial, bilateral pneumonia or multifocal pneumonia consistent with COVID. Treatment will remain supportive for his COVID regardless, as he is actually on day 5 of his COVID-positive status. EKG was obtained and interpreted by myself which demonstrates normal sinus rhythm at 57 bpm without ectopy or acute ST changes. No STEMI. It is bradycardic. I reviewed his laboratory work and he has a normal white count of 4.4, hemoglobin stable at 15.8, platelet count normal at 195. Potassium is slightly low at 3.3 which was replaced orally. Urinalysis shows no evidence of infection. I do not feel antibiotics are indicated. He may be slightly dehydrated with 15 ketones. Chest x-ray in 1 view interpreted by myself shows no evidence of multifocal pneumonia, no acute process. I reviewed the radiology report which confirms this. I also reviewed the radiology report on his ultrasound of his right testicles, and he does have bilateral cysts in the epididymis right greater than left, but there is good flow to the testicles. No evidence of torsion. At this point in time, I am unsure to the etiology of his chest pain as he has a normal EKG and his high-sensitivity troponin is 8, which is greater than a 6-hour troponin. His chest x-ray is clear. I do feel that some of his symptoms may be related to his COVID-19 positive status. I do not feel that he requires admission or supplemental oxygen as his pulse ox is normal on room air here. He was reassured. I feel he can be discharged safely home with follow-up. Return instructions to the emergency department were reviewed. Disposition is discharged home in stable condition. Lab Data Attestation: I reviewed the patient's lab results. Labs: Laboratory Results - last 24 hr 11/24/22 11/24/22 11/24/22 17:50 17:50 18:19 WBC 4.4 RBC 5.45 Hgb 15.8 Hct 47.8 MCV 87.7 MCH 29.0 MCHC 33.1 RDW Std Deviation 42.5 RDW Coeff of Bre 13.3 Plt Count 195 MPV 10.8 Immature Gran % (Auto) 0.900 Neut % (Auto) 73.1 H Lymph % (Auto) 14.0 L [place] % (Auto) 9.7 Eos % (Auto) 1.8 Baso % (Auto) 0.5 Absolute Neuts (auto) 3.3 Absolute Lymphs (auto) 0.62 L Nucleated RBC % 0 Sodium 138 Potassium 3.3 L Chloride 106 Carbon Dioxide 25.0 Anion Gap 7 BUN 17 Creatinine 0.99 Estim Creat Clear Calc 117.58 Est GFR (MDRD) Af Amer 112 Est GFR (MDRD) Non-Af 93 BUN/Creatinine Ratio 17.2 Glucose 116 H Calcium 8.7 Troponin I High Sens 8 Urine Color Yellow Urine Clarity Clear Urine pH 5.0 Ur Specific Shushan 1.025 Urine Protein 30 H Urine Glucose (UA) Normal Urine Ketones 15 H Urine Occult Blood 10 H Urine Nitrite Negative Urine Bilirubin Negative Urine Urobilinogen Normal Ur Leukocyte Esterase Negative Urine RBC 0-5 SEEN Urine WBC 0-5 SEEN Ur Squamous Epith Cells 0 SEEN Urine Bacteria 0 SEEN Urine Mucus 0 SEEN Radiography Diagnostic Testing: Clinical Impression(s) from Imaging Studies Testicular Ultrasound 11/24/22 17:39 IMPRESSION: 1. Left varicocele. 2. Small left hydrocele. 3. Bilateral epididymal head cysts, right greater than left. 4. Normal testicles. Electronically Signed: Keith HerminiaDO at 19:23 EST Reading Location ID and State: [address] [place] [address] Tel [phone], Service support , Chest X-Ray 11/24/22 18:02 IMPRESSION: No acute cardiopulmonary disease or interval change. Electronically Signed: Keith ShellyDO robe at 19:05 EST Reading Location ID and State: [address] [place] [address] Tel [phone], Service support , Discharge Plan Triage Chief Complaint: Chest Pain ED Provider: Nito Tapia Dx/Rx/DC Orders Clinical Impression: COVID, Pain in right testicle, Paresthesia of hand, bilateral, Chest pain Instructions: Coronavirus Disease 2019 (COVID-19): Caring for Yourself or Others, ED Chest Pain, Uncertain Cause, ED Paraesthesias, ED Testicular Pain, Unclear Cause Prescriptions: No Action Acetaminophen 500 MG tablet 1,500 mg PO DAILY@1030 hydrocodone-acetaminophen [hydrocodone-acetaminophen] 1 TABLET tablet 1 tab PO Q6H PRN PRN (Reason: Pain) 3 Days Qty: 10 0RF hydrocodone-acetaminophen [hydrocodone-acetaminophen] 5-325 mg tablet 1 tab PO Q6H PRN PRN (Reason: Pain) 3 Days Qty: 10 0RF naproxen 500 mg tablet 500 mg PO BID Qty: 10 0RF Primary Care Provider: Hudson Frazier Referrals: Hudson Frazier DO [Primary Care Provider] - 1 Week if not improving Disposition Disposition: Home, Self Care
[2022-11-24 17:58] LABS: Absolute Lymphocyte Count 0.62 X10^3/uL (0.83-4.51); Absolute Neutrophil Count 3.3 X10^3/uL (2.0-7.7); Basophil# 0.02 X10^3/uL; Basophil% 0.5 % (0-1); Eosinophil# 0.08 X10^3/uL; Eosinophils% 1.8 % (0-5); Hematocrit 47.8 % (40-54); Hemoglobin 15.8 g/dL (13.0-16.5); Lymphocyte # 0.62 X10^3/ul (0.83-4.51); Mean Corp Hgb Conc 33.1 g/dL (32-36); Mean Corpuscular Volume 87.7 fL (80-94); Mean Platelet Vol. 10.8 fl (6.2-12.0); Monocyte# 0.43 X10^3/uL; Monocyte% 9.7 % (0-10); NRBC Flagged by Analyzer 0 % (0-5); Neutrophil # 3.25 X10^3/uL (2.7-7.7); Neutrophil % 73.1 % (47-70); Platelet Count 195 K/mm3 (150-450); RBC Distribution Width CV 13.3 % (11.6-14.6); RBC Distribution Width SD 42.5 fl (35.1-43.9); Red Blood Count 5.45 M/mm3 (4.6-6.2); White Blood Count 4.4 K/mm3 (4.4-11.0)
--- NOTE | 2022-11-24 18:02 | RAD_ITS ---
STUDY: X-RAY CHEST REASON FOR EXAM: Male, 32 years old. Chest pain. COVID positive for 4 days. Shortness of breath when standing. Intermittent sternal chest pain. TECHNIQUE: Single AP portable view of the chest. COMPARISON: March 17, 2016. FINDINGS: The lungs are clear and expanded. There is no demonstrated pleural abnormality. Normal size heart. Normal mediastinum and falguni. Normal visualized pulmonary arteries. Normal visualized aortic arch and descending thoracic aorta. Normal visualized thoracic spine. Normal visualized ribs, clavicles, and shoulders. There is no demonstrated abnormality of the visualized soft tissue structures of the upper abdomen. RAD/Chest 1 View (Portable) IMPRESSION: No acute cardiopulmonary disease or interval change. Electronically Signed: Keith Hope DO at 19:05 EST ,
[2022-11-24 18:14] LABS: Anion Gap 7 (5-15); BUN 17 mg/dL (7-18); BUN/Creat Ratio 17.2 RATIO (10-20); Calcium,Total 8.7 mg/dL (8.5-10.1); Chloride 106 mmol/L (98-107); Creatinine, Serum 0.99 mg/dL (0.70-1.30); EST Glomerular Filtration Rate 93 mL/min (>60); Est Glom Filt Rate - Afr Amer 112 mL/min (>60); Estimated Creatinine Clearance 117.58 ml/min; Glucose 116 mg/dL (74-106); Potassium 3.3 mmol/L (3.5-5.1); Sodium Level 138 mmol/L (136-145); Troponin-I HS 8 pg/mL (3.0-78.0)
[2022-11-24 18:24] LABS: Bacteria 0 SEEN /hpf (None Seen); Mucous, Urine 0 SEEN /hpf (<or=2+); Squamous Epithelial Cells - UA 0 SEEN /hpf (0-5)
[2022-11-24 18:25] LABS: Color, Urine Yellow (Yellow); Glucose, Dipstick Normal (Normal); Ketone-Dipstick 15 mg/dl (Negative); Leukocyte Esterase-Dipstick Negative /ul (Negative); Nitrite-Dipstick Negative (Negative); Occult Blood-Urine 10 /ul (Negative); Protein-Dipstick 30 mg/dl (Negative); Specific Gravity, Urine 1.025 (1.002-1.030); Urine Bilirubin Dipstick Negative (Negative); Urine Clarity Clear (Clear); Urine Urobilinogen Normal (Normal)
[2022-11-24 18:31] VITALS: BP 156/92; PULSE 68; RESP 12; TEMP 36.8; O2SAT 97
[2022-11-24] MEDS: Potassium Chloride Oral Tablet 20 MEQ 40 MEQ PO (18:35)
[2022-11-24] MEDS: Ketorolac 15 MG/ML Vial IV (18:37)
[2022-11-24 18:56] LABS: Red Blood Cells-Urine 0-5 SEEN /hpf (0-5); White Blood Cells 0-5 SEEN /hpf (0-5)
--- NOTE | 2022-11-24 19:02 | ED.RN ---
PER DR. IVY OKAY TO DISCONTINUE SEPSIS CHECKS.
[2022-11-24 19:17] VITALS: BP 149/95; PULSE 56; RESP 15; O2SAT 95
[2022-11-24 19:52] VITALS: BP 145/101; PULSE 75; RESP 18; O2SAT 100
== END 2022-11-24 19:56 | disposition home or self-care (01) ==
PROVIDERS: Emergency Provider Emergency Medicine; PCP Family Medicine; Visit Provider Emergency Medicine
DX: U07.1 COVID-19 (principal); F31.9 Bipolar disorder, unspecified; F17.210 Nicotine dependence, cigarettes, uncomplicated; N50.811 Right testicular pain; E86.0 Dehydration; N44.2 Benign cyst of testis; R20.2 Paresthesia of skin
CPT/HCPCS: 71045; 76870; 80048; 81001; 84484; 85025; 93005; 93976; 96374; 99285; J7040; A4216

== ENCOUNTER 2024-03-05 13:40 | Emergency (ER) | payer MEDICARE, MEDICAID, SELFPAY ==
[2024-03-05 13:40] VITALS: BP 176/105; PULSE 92; RESP 22; TEMP 37; BMI 33.6
--- NOTE | 2024-03-05 14:17 | CT_ITS ---
STUDY: CT ABDOMEN AND PELVIS WITH CONTRAST REASON FOR EXAM: Male, 34 years old. Worsening lower abdominal pain. RADIATION DOSAGE (If Supplied By Facility): CTDIvol = ( 16.86 ) mGy, DLP = ( 1364.37 ) mGycm TECHNIQUE: Transaxial images were obtained from the dome of the diaphragm to the symphysis pubis without oral contrast. IV 100mL Isovue-300 was administered. Sagittal and coronal images were reconstructed. Individualized dose optimization techniques were used for this CT. COMPARISON: Comparison is made with prior study August 20, 2020. FINDINGS: The visualized lung bases are unremarkable. The visualized portions of the heart are within normal limits. Normal liver. Normal gallbladder and extrahepatic biliary system. Borderline splenomegaly. Normal pancreas. Normal bilateral adrenal glands. Normal right kidney. Normal left kidney. Normal visualized stomach. Normal small intestine. Surgical anastomosis is seen in the distal sigmoid colon. The ileostomy has been reversed. The appendix is visualized and appears normal. Normal abdominal aorta. Normal inferior vena cava. There is borderline retroperitoneal lymphadenopathy with enlarged nodes no greater than 10mm in the short axis diameter. Normal urinary bladder. Normal abdominal wall. Normal osseous structures. CT/Abdomen/Pelvis W IV Cont ONLY IMPRESSION: No acute abnormality is seen. Electronically Signed: Chaka Burciaga MD at 15:03 EDT ,
--- NOTE | 2024-03-05 14:20 | EDS_ITS ---
HPI <RAMAN Pedro - Last Filed: 03/05/24 16:43> History of Present Illness Chief Complaint: Abd Pain Narrative Narrative: Patient is a 34-year-old male with history of chronic abdominal pain, multiple abdominal surgeries, obesity, PTSD. Patient presents to the emergency department with 3 days of worsening lower abdominal pain. Patient has had diverticulitis, colon resection, ileostomy with reversal. 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 He denies any fever chills nausea or vomiting. Patient dates that the pain is consistent and he is concerned that something else is going on. [facility] <RAMAN Pedro - Last Filed: 03/05/24 16:43> [facility] Medical History Bipolar disorder Hemorrhoids IBS (irritable bowel syndrome) PTSD (post-traumatic stress disorder) Testicular cyst Home Medications ?Medication ?Instructions ?Recorded ?Last Taken ?Type Acetaminophen 1,500 mg PO DAILY@1030 PAIN 11/24/19 06/24/20 History hydrocodone-acetaminophen 5-325mg 1 tab PO Q6H PRN PRN Pain 3 days 10/29/21 Unknown Rx 5mg-325mg #10 TABLETS hydrocodone-acetaminophen 5-325mg 1 tab PO Q6H PRN PRN Pain 3 days 03/29/22 Unkn own Rx 5mg-325mg #10 TABLETS naproxen 500 mg tablet 500 mg PO BID #10 tabs 03/29/22 Unknown Rx dicyclomine 20 mg tablet 20 mg PO TID #30 tabs 03/05/24 Unknown Rx Allergy/AdvReac Type Severity Reaction Status Date / Time dextromethorphan HBr (From Allergy Anaphylaxis Verified 11/24/22 17:18 NyQuil) doxylamine (From NyQuil) Allergy Anaphylaxis Verified 11/24/22 17:18 hornet venom Allergy Anaphylaxis Verified 11/24/22 17:18 mushroom (mushrooms) Allergy Anaphylaxis Verified 11/24/22 17:18 poison mimi extract (Poison Allergy Anaphylaxis Verified 11/24/22 17:18 Mimi Extract) pseudoephedrine HCl (From Allergy Anaphylaxis Verified 11/24/22 17:18 NyQuil) venom-honey bee (bee venom Allergy Anaphylaxis Verified 11/24/22 17:18 (honey bee)) Family History Other Ulcerative colitis Surgical History History of partial colectomy Social History household members: spouse and children Smoking Status: Current every day smoker tobacco type: cigarettes substance use type: does not use ROS <RAMAN Pedro - Last Filed: 03/05/24 16:43> ROS ED ROS Narrative Constitutional: Negative for fever, chills, weight loss, weakness Eyes: Negative for vision loss, vision change, double vision ENT: Negative for any sore throat, ear pain, congestion Cardiovascular: Negative for any chest pain, tightness, palpitations Respiratory: Negative for any cough, sputum production, hemoptysis, dyspnea, dyspnea on exertion, orthopnea Gastrointestinal: Negative for any nausea, vomiting, diarrhea, constipation, blood in stool, blood in vomit. Positive for abdominal pain : Negative for any urinary frequency, dysuria, retention, blood in urine Muscle skeletal: Negative for any neck pain, back pain Neurological: Negative for any headache, syncope, dizziness Skin: Negative for any rashes, itching, abrasions, lacerations Psychiatric: Negative for any depression, anxiety, stress, suicidal ideation, homicidal ideation Hematologic: Negative for any excessive bruising, easy bleeding EXAM <RAMAN Pedro - Last Filed: 03/05/24 16:43> Physical Exam Narrative Exam Narrative: Vital signs reviewed. HEET: Head normocephalic atraumatic, TMs clear bilaterally. Posterior pharynx is clear, moist mucous membranes. Nares clear bilaterally. Neck: Supple with no lymphadenopathy or tenderness. No signs of meningismus. Cardiac: Regular rate and rhythm no murmurs gallops or rubs, equal peripheral pulses bilaterally. Respiratory: Lungs clear to auscultation bilaterally. No chest tenderness. Abdomen: Soft, nondistended. No abdominal bruit or pulsatile masses. No hepatosplenomegaly. Patient has tenderness to bilateral lower abdominal quadrants, no peritoneal signs. Active bowel sounds in all quadrants. Extremities: No peripheral edema, no signs of gross trauma or deformity. Active full range of motion of all extremities. Neuro: Cranial nerves II through XII intact, no focal neurological deficits. Skin: Clean dry and intact with no rash, purpura, petechiae, vesicles or pustules. Backs/flank: No CVA tenderness, no midline spinal tenderness, no deformity. Psych: Normal mood and affect. No SI, HI or acute psychosis. Const Vital Signs: 03/05/24 13:40 03/05/24 15:40 Temperature 98.6 F Temperature Source Temporal Pulse Rate 92 73 Respiratory Rate 22 H 16 Blood Pressure 176/105 H 146/88 H Blood Pressure Mean 128 107 Pulse Ox 98 Oxygen Delivery Method Room Air <Dr. Josue Sanchez DO - Last Filed: 03/05/24 16:53> Physical Exam Const Vital Signs: 03/05/24 13:40 03/05/24 15:40 Temperature 98.6 F Temperature Source Temporal Pulse Rate 92 73 Respiratory Rate 22 H 16 Blood Pressure 176/105 H 146/88 H Blood Pressure Mean 128 107 Pulse Ox 98 Oxygen Delivery Method Room Air MDM <RAMAN Pedro - Last Filed: 03/05/24 16:43> [facility] Lab Data Labs: Laboratory Results - last 24 hr 03/05/24 03/05/24 14:25 15:37 WBC 7.0 RBC 5.13 Hgb 15.5 Hct 45.0 MCV 87.7 MCH 30.2 MCHC 34.4 RDW Std Deviation 41.0 RDW Coeff of Bre 12.7 Plt Count 249 MPV 10.5 Immature Gran % (Auto) 0.100 Neut % (Auto) 70.6 H Lymph % (Auto) 18.7 L [place] % (Auto) 7.0 Eos % (Auto) 3.3 Baso % (Auto) 0.3 Absolute Neuts (auto) 4.9 Absolute Lymphs (auto) 1.31 Nucleated RBC % 0 Sodium 136 Potassium 3.1 L Chloride 105 Carbon Dioxide 21.0 Anion Gap 10 BUN 23 H Creatinine 1.07 Estim Creat Clear Calc 129.67 Est GFR (MDRD) Af Amer 102 Est GFR (MDRD) Non-Af 84 BUN/Creatinine Ratio 21.5 H Glucose 88 Lactic Acid 0.9 Calcium 9.5 Total Bilirubin 1.60 H AST 53 H ALT 75 H Alkaline Phosphatase 74 Total Protein 8.4 H Albumin 4.4 Globulin 4.0 Albumin/Globulin Ratio 1.1 Lipase 42 Urine Color Yellow Urine Clarity Clear Urine pH 6.0 Ur Specific [place] 1.015 Urine Protein 30 H Urine Glucose (UA) Normal Urine Ketones 150 A* Urine Occult Blood 10 H Urine Nitrite Negative Urine Bilirubin Negative Urine Urobilinogen 1 H Ur Leukocyte Esterase Negative Urine RBC 0 SEEN Urine WBC 0 SEEN Ur Squamous Epith Cells 0 SEEN Urine Bacteria 0 SEEN Urine Mucus 0 SEEN Radiography Diagnostic Testing: Clinical Impression(s) from Imaging Studies Abdomen/Pelvis CT 03/05/24 14:17 IMPRESSION: No acute abnormality is seen. Electronically Signed: Chaka Burciaga MD at 15:03 EDT , Treatment and Re-Evaluation :: Differential diagnosis includes however is not limited to: Colitis, diverticulitis, abscess formation, bowel obstruction, viral syndrome, gastroenteritis Patient appears to be in no obvious respiratory distress vital signs show some hypertension, patient appears nontoxic. Presenting to the emergency department 3 days of abdominal pain, patient will receive a full abdominal workup including CBC CMP lipase was lactic acid. Patient will be given IV fluids, Zofran, morphine, patient will receive a CT scan of the abdomen pelvis. All radiologic examinations were read, reviewed by the emergency department attending. From these reads, a plan of care will be put in place. Patient's laboratory values show a normal CBC, patient's chemistries show potassium 3.1, is replaced orally, kidney functions unremarkable. Patient's AST is slightly elevated at 53 with an ALT of 75, lipase is -42. Patient did have relief of symptoms with IV fluids, Zofran and morphine. Patient was redosed wit h IM Bentyl. Patient CT scan of the abdomen pelvis shows no acute abnormality seen. Patient be discharged home, instructed return for any worsening symptoms. <Dr. Josue Sanchez, DO - Last Filed: 03/05/24 16:53> [facility] Lab Data Labs: Laboratory Results - last 24 hr 03/05/24 03/05/24 14:25 15:37 WBC 7.0 RBC 5.13 Hgb 15.5 Hct 45.0 MCV 87.7 MCH 30.2 MCHC 34.4 RDW Std Deviation 41.0 RDW Coeff of Bre 12.7 Plt Count 249 MPV 10.5 Immature Gran % (Auto) 0.100 Neut % (Auto) 70.6 H Lymph % (Auto) 18.7 L [place] % (Auto) 7.0 Eos % (Auto) 3.3 Baso % (Auto) 0.3 Absolute Neuts (auto) 4.9 Absolute Lymphs (auto) 1.31 Nucleated RBC % 0 Sodium 136 Potassium 3.1 L Chloride 105 Carbon Dioxide 21.0 Anion Gap 10 BUN 23 H Creatinine 1.07 Estim Creat Clear Calc 129.67 Est GFR (MDRD) Af Amer 102 Est GFR (MDRD) Non-Af 84 BUN/Creatinine Ratio 21.5 H Glucose 88 Lactic Acid 0.9 Calcium 9.5 Total Bilirubin 1.60 H AST 53 H ALT 75 H Alkaline Phosphatase 74 Total Protein 8.4 H Albumin 4.4 Globulin 4.0 Albumin/Globulin Ratio 1.1 Lipase 42 Urine Color Yellow Urine Clarity Clear Urine pH 6.0 Ur Specific [place] 1.015 Urine Protein 30 H Urine Glucose (UA) Normal Urine Ketones 150 A* Urine Occult Blood 10 H Urine Nitrite Negative Urine Bilirubin Negative Urine Urobilinogen 1 H Ur Leukocyte Esterase Negative Urine RBC 0 SEEN Urine WBC 0 SEEN Ur Squamous Epith Cells 0 SEEN Urine Bacteria 0 SEEN Urine Mucus 0 SEEN Radiography Diagnostic Testing: Clinical Impression(s) from Imaging Studies Abdomen/Pelvis CT 03/05/24 14:17 IMPRESSION: No acute abnormality is seen. Electronically Signed: Chaka Burciaga MD at 15:03 EDT , Treatment and Re-Evaluation :: Differential diagnosis includes however is not limited to: Colitis, diverticulitis, abscess formation, bowel obstruction, viral syndrome, gastroenteritis Patient appears to be in no obvious respiratory distress vital signs show some hypertension, patient appears nontoxic. Presenting to the emergency department 3 days of abdominal pain, patient will receive a full abdominal workup including CBC CMP lipase was lactic acid. Patient will be given IV fluids, Zofran, morphine, patient will receive a CT scan of the abdomen pelvis. All radiologic examinations were read, reviewed by the emergency department attending. From these reads, a plan of care will be put in place. Patient's laboratory values show a normal CBC, patient's chemistries show potassium 3.1, is replaced orally, kidney functions unremarkable. Patient's AST is slightly elevated at 53 with an ALT of 75, lipase is -42. Patient did have relief of symptoms with IV fluids, Zofran and morphine. Patient was redosed with IM Bentyl. Patient CT scan of the abdomen pelvis shows no acute abnormality seen. 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 I have reviewed everything on the chart that is available and agree with the documentation provided by the PA/AIRCRAFT LAYOUT WORKER including discussion about the assessment, treatment plan, discussion, and return precautions. Patient with history of diverticulitis perforation status post surgical repair. 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 He thought that he has diverticulitis that come back. Differential as above. Lab work today was all reassuring. No evidence of leukocytosis. Potassium 3.1. He is orally. Liver enzymes minimally elevated. no right upper quadrant pain. After treatment patient feels much better. His CT of the abdomen pelvis is negative. I feel he stable for discharge at this time. Discharge Plan Triage Chief Complaint: Abd Pain ED Midlevel Provider: Matty Allen ED Provider: Josue Sanchez Dx/Rx/DC Orders Clinical Impression: Abdominal pain Instructions: Abdominal Pain, ED Pain, Acute, Uncertain Cause Prescriptions: New dicyclomine 20 mg tablet 20 mg PO TID Qty: 30 0RF No Action Acetaminophen 500 MG tablet 1,500 mg PO DAILY@1030 hydrocodone-acetaminophen [hydrocodone-acetaminophen] 1 TABLET tablet 1 tab PO Q6H PRN PRN (Reason: Pain) 3 Days Qty: 10 0RF hydrocodone-acetaminophen [hydrocodone-acetaminophen] 5-325 mg tablet 1 tab PO Q6H PRN PRN (Reason: Pain) 3 Days Qty: 10 0RF naproxen 500 mg tablet 500 mg PO BID Qty: 10 0RF Stand Alone Forms: ED Work / School Excuse Primary Care Provider: Hudson Frazier Referrals: Hudson Frazier DO [Primary Care Provider] - Activity Restrictions/Additional Instructions: Return for any worsening symptoms. Continue to follow-up. Print Language: Serbian Disposition Disposition: Home, Self Care
[2024-03-05] MEDS: Ondansetron 4 MG/2 ML Vial IV (14:30)
[2024-03-05] MEDS: Morphine 4 MG/ML Syringe IV (14:30)
[2024-03-05] MEDS: 0.9% Normal Saline (1000mL) 1,000 ML 999 ML IV (14:31)
[2024-03-05 14:36] LABS: Absolute Lymphocyte Count 1.31 X10^3/uL (0.83-4.51); Absolute Neutrophil Count 4.9 X10^3/uL (2.0-7.7); Basophil# 0.02 X10^3/uL; Basophil% 0.3 % (0-1); Eosinophil# 0.23 X10^3/uL; Eosinophils% 3.3 % (0-5); Hemoglobin 15.5 g/dL (13.0-16.5); Lymphocyte # 1.31 X10^3/ul (0.83-4.51); Lymphocyte % 18.7 % (19-41); Mean Corp Hgb Conc 34.4 g/dL (32-36); Mean Corpuscular Hgb 30.2 pg (27.0-32.0); Mean Corpuscular Volume 87.7 fL (80-94); Mean Platelet Vol. 10.5 fl (6.2-12.0); Monocyte# 0.49 X10^3/uL; NRBC Flagged by Analyzer 0 % (0-5); Neutrophil # 4.93 X10^3/uL (2.7-7.7); Neutrophil % 70.6 % (47-70); Platelet Count 249 K/mm3 (150-450); RBC Distribution Width CV 12.7 % (11.6-14.6); Red Blood Count 5.13 M/mm3 (4.6-6.2)
[2024-03-05 14:54] LABS: ALB/GLOB Ratio 1.1 RATIO (0.9-2.4); AST(SGOT) 53 U/L (15-37); Alanine Aminotransfer ALT/SGPT 75 U/L (16-61); Albumin, Serum 4.4 g/dL (3.2-5.0); Alkaline Phosphatase 74 U/L (45-117); Anion Gap 10 (5-15); BUN 23 mg/dL (7-18); BUN/Creat Ratio 21.5 RATIO (10-20); Calcium,Total 9.5 mg/dL (8.5-10.1); Chloride 105 mmol/L (98-107); Creatinine, Serum 1.07 mg/dL (0.70-1.30); EST Glomerular Filtration Rate 84 mL/min (>60); Est Glom Filt Rate - Afr Amer 102 mL/min (>60); Estimated Creatinine Clearance 129.67 ml/min; Glucose 88 mg/dL (74-106); Lipase 42 U/L (13-75); Potassium 3.1 mmol/L (3.5-5.1); Protein, Total 8.4 g/dL (6.4-8.2); Sodium Level 136 mmol/L (136-145)
[2024-03-05 15:03] LABS: Lactic Acid 0.9 mmol/L (0.4-1.9)
[2024-03-05 15:40] VITALS: BP 146/88; PULSE 73; RESP 16; O2SAT 98
[2024-03-05 15:42] LABS: Bacteria 0 SEEN /hpf (None Seen); Mucous, Urine 0 SEEN /hpf (<or=2+); Red Blood Cells-Urine 0 SEEN /hpf (0-5); Squamous Epithelial Cells - UA 0 SEEN /hpf (0-5); White Blood Cells 0 SEEN /hpf (0-5)
[2024-03-05 15:44] LABS: Color, Urine Yellow (Yellow); Glucose, Dipstick Normal (Normal); Leukocyte Esterase-Dipstick Negative /ul (Negative); Nitrite-Dipstick Negative (Negative); Occult Blood-Urine 10 /ul (Negative); Protein-Dipstick 30 mg/dl (Negative); Specific Gravity, Urine 1.015 (1.002-1.030); Urine Bilirubin Dipstick Negative (Negative); Urine Clarity Clear (Clear); Urine Urobilinogen 1 mg/dl (Normal)
[2024-03-05 15:47] LABS: Ketone-Dipstick 150 mg/dl (Negative)
[2024-03-05] MEDS: Dicyclomine 20 MG/2 ML Vial IM (15:55)
[2024-03-05] MEDS: Potassium Chloride Oral Tablet 20 MEQ 40 MEQ PO (15:57)
[2024-03-05 17:00] VITALS: BP 148/84; PULSE 73; RESP 16; O2SAT 98
[2024-03-05 17:25] VITALS: BP 142/72; PULSE 73; RESP 16; TEMP 36.5; O2SAT 99
[2024-03-05 17:27] VITALS: BP 142/72; PULSE 73; RESP 16; TEMP 36.5; O2SAT 99
== END 2024-03-05 17:28 | disposition home or self-care (01) ==
PROVIDERS: Nurse Practitioner; Emergency Provider Student in an Organized Health Care Education/Training Program; PCP Family Medicine; Visit Provider Student in an Organized Health Care Education/Training Program
DX: R10.30 Lower abdominal pain, unspecified (principal); E66.9 Obesity, unspecified; F17.210 Nicotine dependence, cigarettes, uncomplicated; F43.10 Post-traumatic stress disorder, unspecified; Z98.890 Other specified postprocedural states
CPT/HCPCS: 74177; 80053; 81001; 83605; 83690; 85025; 96361; 96374; 96375; 99283; J7030; Q9967; A4216; J2405

== ENCOUNTER 2024-04-21 07:22 | Emergency (ER) | payer MEDICARE, MEDICAID, SELFPAY ==
[2024-04-21 07:24] VITALS: BP 156/88; PULSE 81; RESP 16; TEMP 36.7; O2SAT 97; BMI 34.7
--- NOTE | 2024-04-21 07:48 | CT_ITS ---
STUDY: CT ABDOMEN AND PELVIS WITH CONTRAST REASON FOR EXAM: Male, 34 years old. Abdominal pain, nausea and vomiting RADIATION DOSAGE (If Supplied By Facility): CTDIvol = ( 18.53 ) mGy, DLP = ( 1295.19 ) mGycm TECHNIQUE: Transaxial images were obtained from the dome of the diaphragm to the symphysis pubis without oral contrast. IV 100mL Isovue-370 was administered. Sagittal and coronal images were reconstructed. Individualized dose optimization techniques were used for this CT. COMPARISON: Comparison is made with prior study dated March 05, 2024. FINDINGS: The visualized lung bases are unremarkable. The visualized portions of the heart are within normal limits. There is decreased attenuation of the liver consistent with steatosis. Mild hepatomegaly. Normal gallbladder and extrahepatic biliary system. Borderline splenomegaly. Normal pancreas. Normal bilateral adrenal glands. Normal right kidney. Normal left kidney. There is a small hiatal hernia. Normal small intestine. Surgical anastomosis is seen in the distal sigmoid colon. Moderate amount of fecal material is seen in the colon. The appendix is visualized and appears normal. Normal abdominal aorta. Normal inferior vena cava. There is borderline retroperitoneal lymphadenopathy with enlarged nodes no greater than 10mm in the short axis diameter. Normal urinary bladder. Normal abdominal wall. Normal osseous structures. CT/Abdomen/Pelvis W IV Cont ONLY IMPRESSION: Borderline hepatomegaly and diffuse fatty infiltration of the liver. The spleen measures upper limits of normal. Moderate amount of fecal material is seen throughout the colon. Anastomosis is seen in the region of the sigmoid colon. Electronically Signed: Chaka Burciaga MD at 8:50 EDT ,
--- NOTE | 2024-04-21 07:49 | ED.VIS.GI ---
HPI HPI - GI History of Present Illness Chief Complaint: Nausea/Vomiting Narrative Narrative: 34-year-old male past medical history of bipolar disorder, Crohn disease, previous diverticulitis with colon resection secondary to abscess presents with his because of nausea and vomiting and upper abdominal pain that has had for the last 1 to 2 days. He relates history that he called off work yesterday because he was not feeling well. He was nauseated. Today, he awoke and stated that he went to work, but was feeling well. He had vomited prior to clocking in. He went up a flight of stairs to his bosses office and told him he was not feeling well, and when he was descending the stairs, vomited over the railing. No blood in his emesis. Last bowel movement was a few hours ago and was normal according to the patient. His boss suggested that he be evaluated. Yesterday, patient states he felt a little bloated. No exacerbating or alleviating factors to his upper abdominal pain. He states he has had colostomies and colostomy reversal as well. Is not really having any lower abdominal pain. [facility] Medical History PTSD (post-traumatic stress disorder) Bipolar disorder Testicular cyst IBS (irritable bowel syndrome) Hemorrhoids Home Medications ?Medication ?Instructions ?Recorded ?Last Taken ?Type Acetaminophen 1,500 mg PO DAILY@1030 PAIN 11/24/19 06/24/20 History hydrocodone-acetaminophen 5-325mg 1 tab PO Q6H PRN PRN Pain 3 days 10/29/21 Unknown Rx 5mg-325mg #10 TABLETS hydrocodone-acetaminophen 5-325mg 1 tab PO Q6H PRN PRN Pain 3 days 03/29/22 Unknown Rx 5mg-325mg #10 TABLETS naproxen 500 mg tablet 500 mg PO BID #10 tabs 03/29/22 Unknown Rx dicyclomine 20 mg tablet 20 mg PO TID #30 tabs 03/05/24 Unknown Rx ondansetron 4 mg disintegrating 4 mg PO Q6H PRN nausea and 04/21/24 Unknown Rx tablet vomiting #12 tabs Allergy/AdvReac Type Severity Reaction Status Date / Time dextromethorphan HBr (From Allergy Anaphylaxis Verified 04/21/24 07:26 NyQuil) doxylamine (From NyQuil) Allergy Anaphylaxis Verified 04/21/24 07:26 hornet venom Allergy Anaphylaxis Verified 04/21/24 07:26 mushroom (mushrooms) Allergy Anaphylaxis Verified 04/21/24 07:26 poison mimi extract (Poison Allergy Anaphylaxis Verified 04/21/24 07:26 Mimi Extract) pseudoephedrine HCl (From Allergy Anaphylaxis Verified 04/21/24 07:26 NyQuil) venom-honey bee (bee venom Allergy Anaphylaxis Verified 04/21/24 07:26 (honey bee)) Family History Other Ulcerative colitis Surgical History History of partial colectomy Social History household members: spouse and children Smoking Status: Current every day smoker tobacco type: cigarettes substance use type: does not use ROS ROS ED ROS Narrative Constitutional: No fever, no chills. HEENT: No sore throat. No neck pain. No loss of vision. No rhinorrhea. Cardiovascular: No chest pain. No palpitations. No pedal edema. Respiratory: No cough, no shortness of breath. Abdominal: Upper abdominal cramping/abdominal pain. Positive nausea and vomiting. [place] bloated yesterday. No problems with diarrhea. Genitourinary: No dysuria. No hematuria. Musculoskeletal: No myalgias. No arthralgias. Neurologic: No headaches. No dizziness. Occasional lightheadedness. Skin: No rash. No change in color. Psychiatric: No depression. No anxiety. EXAM Physical Exam Narrative Exam Narrative: Afebrile. Vital signs noted. HEENT: Normocephalic. Atraumatic. PERRL, EOMI. Neck soft and supple. No point tenderness or step off. Cardiovascular: Regular rate and rhythm. No murmurs, rubs, or gallops appreciated. Respiratory: No tachypnea. Lungs clear to auscultation bilaterally. Gastrointestinal: Abdomen soft, mild epigastric tenderness, with hypoactive bowel sounds. No rebound or guarding. Well-healed scars on lower abdomen. Negative [place] sign. Neurological: Awake. Alert. Nonfocal, nonlateralizing. Skin: No rash. Normal color. No pallor. Musculoskeletal: No pedal edema. Full range of motion extremities. Const Vital Signs: 04/21/24 07:24 Temperature 98.1 F Temperature Source Temporal Pulse Rate 81 Respiratory Rate 16 Blood Pressure 156/88 H Blood Pressure Mean 110 Pulse Ox 97 Oxygen Delivery Method Room Air MDM MDM MDM Narrative Medical decision making narrative: In the differential diagnosis is gastritis/gastroenteritis versus partial small bowel obstruction versus diverticulitis. Also the differential diagnosis as he admits to marijuana use this is cyclic vomiting/cannabis induced hyperemesis. Given his history of having colon resection, there is concern for partial small bowel obstruction as he felt bloated. Comprehensive workup was pursued. I do feel CT imaging is indicated. I reviewed his laboratory work and he has normal white count of 8.1, hemoglobin slightly hemoconcentrated at 16.8, hematocrit 52.1. Platelet count normal at 222. Electrolyte panel is grossly unremarkable with a sodium of 136 and potassium 4.2, BUN normal at 16 with creatinine 0.99. LFTs are normal. Lipase normal at 48. Hence, I doubt pancreatitis. I reviewed the radiology report of the CT of the abdomen and pelvis which shows no evidence of an obstruction. No colitis. Normal pancreas. At this point in time, upon repeat examination at approximately 9 AM, patient states that his nausea is resolved. His abdomen remains soft. I feel he can be discharged to follow-up with the primary care provider. I wrote him a prescription for 12 Zofran ODT's. He is still to start a clear liquid diet and advance as tolerated. He may have more of a gastritis for which she can take [id number] medications as needed. Return instructions to the emergency department were reviewed. Disposition is discharged home in stable condition. History & Record Review Discussion w/independent historian: Patient Lab Data Attestation: I reviewed the patient's lab results. Labs: Laboratory Results - last 24 hr 04/21/24 08:15 WBC 8.1 RBC 5.87 Hgb 16.8 H Hct 52.1 MCV 88.8 MCH 28.6 MCHC 32.2 RDW Std Deviation 41.1 RDW Coeff of Bre 12.7 Plt Count 222 MPV 10.4 Immature Gran % (Auto) 0.500 Neut % (Auto) 71.6 H Lymph % (Auto) 14.8 L [place] % (Auto) 4.6 Eos % (Auto) 8.1 H Baso % (Auto) 0.4 Absolute Neuts (auto) 5.8 Absolute Lymphs (auto) 1.20 Nucleated RBC % 0 Sodium 136 Potassium 4.2 Chloride 105 Carbon Dioxide 28.0 Anion Gap 3 L BUN 16 Creatinine 0.99 Estim Creat Clear Calc 142.41 Est GFR (MDRD) Af Amer 112 Est GFR (MDRD) Non-Af 92 BUN/Creatinine Ratio 16.2 Glucose 111 H Calcium 9.8 Total Bilirubin 0.40 AST 25 ALT 42 Alkaline Phosphatase 97 Total Protein 8.6 H Albumin 4.0 Globulin 4.6 H Albumin/Globulin Ratio 0.9 Lipase 48 Radiography Diagnostic Testing: Clinical Impression(s) from Imaging Studies Abdomen/Pelvis CT 04/21/24 07:48 IMPRESSION: Borderline hepatomegaly and diffuse fatty infiltration of the liver. The spleen measures upper limits of normal. Moderate amount of fecal material is seen throughout the colon. Anastomosis is seen in the region of the sigmoid colon. Electronically Signed: Chaka Burciaga MD at 8:50 EDT , Discharge Plan Triage Chief Complaint: Nausea/Vomiting ED Provider: Nito Tapia Dx/Rx/DC Orders Clinical Impression: Nausea and vomiting Instructions: ED Vomiting (Adult) Prescriptions: New ondansetron 4 mg tablet,disintegrating 4 mg PO Q6H PRN (Reason: nausea and vomiting) Qty: 12 0RF No Action Acetaminophen 500 MG tablet 1,500 mg PO DAILY@1030 hydrocodone-acetaminophen [hydrocodone-acetaminophen] 1 TABLET tablet 1 tab PO Q6H PRN PRN (Reason: Pain) 3 Days Qty: 10 0RF hydrocodone-acetaminophen [hydrocodone-acetaminophen] 5-325 mg tablet 1 tab PO Q6H PRN PRN (Reason: Pain) 3 Days Qty: 10 0RF naproxen 500 mg tablet 500 mg PO BID Qty: 10 0RF dicyclomine 20 mg tablet 20 mg PO TID Qty: 30 0RF Stand Alone Forms: ED Work / School Excuse Primary Care Provider: Hudson Frazier Referrals: Hudson Frazier, DO [Primary Care Provider] - 3-5 Days if not improving Print Language: Hungarian Disposition Disposition: Home, Self Care
[2024-04-21 08:24] LABS: Absolute Neutrophil Count 5.8 X10^3/uL (2.0-7.7); Basophil# 0.03 X10^3/uL; Basophil% 0.4 % (0-1); Eosinophil# 0.66 X10^3/uL; Eosinophils% 8.1 % (0-5); Hematocrit 52.1 % (40-54); Hemoglobin 16.8 g/dL (13.0-16.5); Lymphocyte % 14.8 % (19-41); Mean Corp Hgb Conc 32.2 g/dL (32-36); Mean Corpuscular Hgb 28.6 pg (27.0-32.0); Mean Corpuscular Volume 88.8 fL (80-94); Mean Platelet Vol. 10.4 fl (6.2-12.0); Monocyte# 0.37 X10^3/uL; Monocyte% 4.6 % (0-10); NRBC Flagged by Analyzer 0 % (0-5); Neutrophil # 5.82 X10^3/uL (2.7-7.7); Neutrophil % 71.6 % (47-70); Platelet Count 222 K/mm3 (150-450); RBC Distribution Width CV 12.7 % (11.6-14.6); RBC Distribution Width SD 41.1 fl (35.1-43.9); Red Blood Count 5.87 M/mm3 (4.6-6.2); White Blood Count 8.1 K/mm3 (4.4-11.0)
[2024-04-21 08:41] LABS: ALB/GLOB Ratio 0.9 RATIO (0.9-2.4); AST(SGOT) 25 U/L (15-37); Alanine Aminotransfer ALT/SGPT 42 U/L (16-61); Alkaline Phosphatase 97 U/L (45-117); Anion Gap 3 (5-15); BUN 16 mg/dL (7-18); BUN/Creat Ratio 16.2 RATIO (10-20); Calcium,Total 9.8 mg/dL (8.5-10.1); Chloride 105 mmol/L (98-107); Creatinine, Serum 0.99 mg/dL (0.70-1.30); EST Glomerular Filtration Rate 92 mL/min (>60); Est Glom Filt Rate - Afr Amer 112 mL/min (>60); Estimated Creatinine Clearance 142.41 ml/min; Globulin 4.6 g/dL (2.2-4.2); Glucose 111 mg/dL (74-106); Lipase 48 U/L (13-75); Potassium 4.2 mmol/L (3.5-5.1); Protein, Total 8.6 g/dL (6.4-8.2); Sodium Level 136 mmol/L (136-145)
[2024-04-21] MEDS: 0.9% Normal Saline (1000mL) 1,000 ML 999 ML IV (08:58)
[2024-04-21] MEDS: Ondansetron 4 MG/2 ML Vial IV (08:59)
[2024-04-21 09:20] VITALS: BP 132/84; PULSE 78; RESP 16; TEMP 36.6; O2SAT 99
== END 2024-04-21 09:21 | disposition home or self-care (01) ==
PROVIDERS: Emergency Provider Emergency Medicine; PCP Family Medicine; Visit Provider Emergency Medicine
DX: R11.2 Nausea with vomiting, unspecified (principal); F31.9 Bipolar disorder, unspecified; F17.210 Nicotine dependence, cigarettes, uncomplicated; R10.10 Upper abdominal pain, unspecified
CPT/HCPCS: 74177; 80053; 83690; 85025; 96374; 99282; J7030; Q9967; A4216; J2405

== ENCOUNTER 2024-07-22 22:22 | Emergency (ER) | payer MEDICARE, MEDICAID, SELFPAY ==
[2024-07-22 22:24] VITALS: BP 147/97; PULSE 88; RESP 16; TEMP 36.9; O2SAT 97; BMI 36.2
--- NOTE | 2024-07-22 22:38 | CT_ITS ---
INDICATION: RLQ abdominal pain, history of diverticulitis EXAMINATION: CT ABDOMEN AND PELVIS WITH CONTRAST - CT Abdomen And Pelvis W/ Contrast Injection TECHNIQUE: Helically acquired images were obtained of the abdomen and pelvis following IV contrast. A radiation dose optimization technique was used for this scan. IV Contrast dosage and agent: 100 mL Isovue-370 Oral contrast: None. COMPARISON: April 21, 2024. FINDINGS: LOWER CHEST: Lung bases are clear. No cardiomegaly or pericardial effusion. LIVER: Homogeneous. No focal mass. GALLBLADDER AND BILIARY TREE: No calcified gallstones. No gallbladder distension or wall edema. No intra- or extrahepatic biliary ductal dilation. PANCREAS: No focal cystic or solid mass. SPLEEN: Normal size without focal cystic or solid mass. ADRENAL GLANDS: No nodules. KIDNEYS AND URETERS: Normal renal size and position. No hydronephrosis. PERITONEUM: No ascites or free air. No other fluid collection. BOWEL: No acute gastric finding. No small bowel distention or focal wall thickening. Mid small bowel anastomosis with mild typical dilatation of the anastomotic sites without obstruction. Left hemicolectomy with rectosigmoid anastomosis, without evidence of destruction. Normal appendix. . LYMPH NODES: No enlarged mesenteric or retroperitoneal lymph nodes. VESSELS: Aorta is non-dilated. URINARY BLADDER: Unremarkable. ABDOMINAL WALL: No discrete abdominal or pelvic wall hernia. BONES: No lytic or blastic abnormality. CT/Abdomen/Pelvis W IV Cont ONLY IMPRESSION: No specific finding for patient''s pain. Multiple bowel anastomosis without evidence of obstruction. Normal appendix. Electronically Signed: Carlos Alberto Ovalle MD at 23:37 EDT ,
--- NOTE | 2024-07-22 22:39 | ED.VIS.GI ---
HPI HPI - GI History of Present Illness Chief Complaint: Abd Pain Narrative Narrative: 34-year-old male past medical history of Crohn disease, bipolar disorder, previous diverticulitis multiple times, had colostomy with reversal, presents with right lower quadrant abdominal pain in the area of his ostomy that has had since about 730 this morning. He denies any fevers or chills, no nausea or vomiting, no exacerbating or alleviating factors. When he was concerned about was mainly that he has had internal hemorrhoids in the past that have bled. He had mild rectal bleeding with bowel movement today, but he did have a small amount of blood pooling on his underwear afterwards. He denies any chest pain or lightheadedness. He thinks that his internal hemorrhoids may have been bleeding, but it was more than usual. [facility] Medical History PTSD (post-traumatic stress disorder) Bipolar disorder Testicular cyst IBS (irritable bowel syndrome) Hemorrhoids Home Medications ?Medication ?Instructions ?Recorded ?Last Taken ?Type Acetaminophen 1,500 mg PO DAILY@1030 PAIN 11/24/19 06/24/20 History hydrocodone-acetaminophen 5-325mg 1 tab PO Q6H PRN PRN Pain 3 days 10/29/21 Unknown Rx 5mg-325mg #10 TABLETS hydrocodone-acetaminophen 5-325mg 1 tab PO Q6H PRN PRN Pain 3 days 03/29/22 Unknown Rx 5mg-325mg #10 TABLETS naproxen 500 mg tablet 500 mg PO BID #10 tabs 03/29/22 Unknown Rx dicyclomine 20 mg tablet 20 mg PO TID #30 tabs 03/05/24 Unknown Rx ondansetron 4 mg disintegrating 4 mg PO Q6H PRN nausea and 04/21/24 Unknown Rx tablet vomiting #12 tabs Allergy/AdvReac Type Severity Reaction Status Date / Time Iodinated Contrast Media (iv Allergy Intermediate itching Verified 07/22/24 23:25 contrast) and redness dextromethorphan HBr (From Allergy Anaphylaxis Verified 07/22/24 22:22 NyQuil) doxylamine (From NyQuil) Allergy Anaphylaxis Verified 07/22/24 22:22 hornet venom Allergy Anaphylaxis Verified 07/22/24 22:22 mushroom (mushrooms) Allergy Anaphylaxis Verified 07/22/24 22:22 poison mimi extract (Poison Allergy Anaphylaxis Verified 07/22/24 22:22 Mimi Extract) pseudoephedrine HCl (From Allergy Anaphylaxis Verified 07/22/24 22:22 NyQuil) venom-honey bee (bee venom Allergy Anaphylaxis Verified 07/22/24 22:22 (honey bee)) Family History Other Ulcerative colitis Surgical History History of partial colectomy Social History household members: spouse and children Smoking Status: Current every day smoker tobacco type: cigarettes substance use type: does not use ROS ROS ED ROS Narrative Constitutional: No fever, no chills. HEENT: No sore throat. No neck pain. No loss of vision. No rhinorrhea. Cardiovascular: No chest pain. No palpitations. No pedal edema. Respiratory: No cough, no shortness of breath. Abdominal: Right lower quadrant abdominal pain. No nausea. No vomiting. No hematemesis. Positive rectal bleeding. No melanotic stool. Genitourinary: No dysuria. No hematuria. Musculoskeletal: No myalgias. No arthralgias. Neurologic: No headaches. No dizziness. No lightheadedness. Skin: No rash. No change in color. Psychiatric: No depression. No anxiety. EXAM Physical Exam Narrative Exam Narrative: Afebrile. Vital signs noted. HEENT: Normocephalic. Atraumatic. PERRL, EOMI. Neck soft and supple. No point tenderness or step off. Cardiovascular: Regular rate and rhythm. No murmurs, rubs, or gallops appreciated. Respiratory: No tachypnea. Lungs clear to auscultation bilaterally. Gastrointestinal: Abdomen soft, mild tenderness right lower quadrant and area of ostomy with normoactive bowel sounds. Well-healed scar on abdomen. No rebound or guarding. Patient refuses rectal examination. Neurological: Awake. Alert. Nonfocal, nonlateralizing. Skin: No rash. Normal color. No pallor. Musculoskeletal: No pedal edema. Full range of motion extremities. Const Vital Signs: 07/22/24 22:24 Temperature 98.4 F Temperature Source Oral Pulse Rate 88 Respiratory Rate 16 Blood Pressure 147/97 H Blood Pressure Mean 113 Pulse Ox 97 Oxygen Delivery Method Room Air MDM MDM MDM Narrative Medical decision making narrative: Differential diagnosis includes but not limited to internal hemorrhoid bleeding versus diverticular bleeding versus diverticulitis for his right lower quadrant abdominal pain versus partial bowel obstruction. We do feel CT imaging is indicated. I reviewed his prior visits and he has been here previously with suspicion for diverticulitis given his abdominal pain. He also has history of Crohn disease so he may be having a Crohn's exacerbation as well, and he has IBS. As he refuses rectal examination, I discussed with him that we will obtain laboratory work to see if his reported GI bleeding is stable. He denies that he is having hemorrhage rectally and it was only a small amount of blood that was pooled in his underwear. I reviewed his laboratory work and he has normal white count of 10.0, hemoglobin normal at 15.3 with hematocrit 46.6, platelet count normal at 222. Sodium is normal at 138, potassium 3.6, BUN of 12, with creatinine 1.08 so I have lower suspicion for upper GI bleeding. Glucose normal at 99. I reviewed the radiology report of the CT of the abdomen and pelvis with IV contrast and the appendix appears normal. There is no evidence of obstruction or diverticulitis. Of note, I was informed by the certified pharmacy technician that patient returned from CT scan with redness all over his body and generalized pruritus. Upon repeat evaluation, he had no stridor or difficulty breathing, no throat closing, no drooling or trismus. I feel like he probably has a reaction to IV contrast now which she never had previously. He was administered Benadryl 50 mg intravenously which she has tolerated before, and upon repeat examination at approximately 2350, he feels improved. At this point in time, I feel he can be discharged safely home with follow-up. He most likely has bleeding from an internal hemorrhoid which she has had previously. I offered to write him for Anusol HC suppositories but he declined and stated he would use an [id number] cream. Return instructions to the emergency department were reviewed. Patient is motivated for discharge. He will follow-up with his primary care provider and may need to see gastroenterology in the future. Disposition is discharged home in stable condition. History & Record Review Discussion w/independent historian: Patient Additional record(s) reviewed:: Prior ED visit and Prior labs Lab Data Attestation: I reviewed the patient's lab results. Labs: Laboratory Results - last 24 hr 07/22/24 22:37 WBC 10.0 RBC 5.26 Hgb 15.3 Hct 46.6 MCV 88.6 MCH 29.1 MCHC 32.8 RDW Std Deviation 43.3 RDW Coeff of Bre 13.2 Plt Count 222 MPV 10.6 Immature Gran % (Auto) 0.400 Neut % (Auto) 62.2 Lymph % (Auto) 21.5 [place] % (Auto) 5.8 Eos % (Auto) 9.9 H Baso % (Auto) 0.2 Absolute Neuts (auto) 6.2 Absolute Lymphs (auto) 2.14 Nucleated RBC % 0 Sodium 138 Potassium 3.6 Chloride 105 Carbon Dioxide 29.0 Anion Gap 5 BUN 12 Creatinine 1.08 Estim Creat Clear Calc 133.35 Est GFR (MDRD) Af Amer 100 Est GFR (MDRD) Non-Af 83 BUN/Creatinine Ratio 11.1 Glucose 99 Calcium 9.0 Radiography Diagnostic Testing: Clinical Impression(s) from Imaging Studies Abdomen/Pelvis CT 07/22/24 22:38 IMPRESSION: No specific finding for patient''s pain. Multiple bowel anastomosis without evidence of obstruction. Normal appendix. Electronically Signed: Carlos Alberto Ovalle MD at 23:37 EDT Reading Location ID and State: On license of [facility] / [place] Tel , Service support , Discharge Plan Triage Chief Complaint: Abd Pain ED Provider: Nito Tapia Dx/Rx/DC Orders Clinical Impression: Abdominal pain, Rectal bleeding, Allergy to intravenous contrast Instructions: ED Lower GI Bleeding (Stable), ED Abdominal Pain Unkn Cause Male... Prescriptions: No Action Acetaminophen 500 MG tablet 1,500 mg PO DAILY@1030 hydrocodone-acetaminophen [hydrocodone-acetaminophen] 1 TABLET tablet 1 tab PO Q6H PRN PRN (Reason: Pain) 3 Days Qty: 10 0RF hydrocodone-acetaminophen [hydrocodone-acetaminophen] 5-325 mg tablet 1 tab PO Q6H PRN PRN (Reason: Pain) 3 Days Qty: 10 0RF naproxen 500 mg tablet 500 mg PO BID Qty: 10 0RF dicyclomine 20 mg tablet 20 mg PO TID Qty: 30 0RF ondansetron 4 mg tablet,disintegrating 4 mg PO Q6H PRN (Reason: nausea and vomiting) Qty: 12 0RF Primary Care Provider: Hudson Frazier Referrals: Hudson Frazier DO [Primary Care Provider] - 3-5 Days Activity Restrictions/Additional Instructions: You had a reaction to IV contrast. You may need to list this as an allergy as he required Benadryl. You can take Benadryl every 4-6 hours for the next 2 days to help with itching. You will probably need pretreatment before receiving IV contrast in the future with Benadryl and steroids. Return to the emergency department with increased rectal bleeding, increased pain, fever, new or worsening symptoms. Print Language: [place]i Disposition Disposition: Home, Self Care
[2024-07-22 22:48] LABS: Absolute Lymphocyte Count 2.14 X10^3/uL (0.83-4.51); Absolute Neutrophil Count 6.2 X10^3/uL (2.0-7.7); Basophil# 0.02 X10^3/uL; Basophil% 0.2 % (0-1); Eosinophil# 0.99 X10^3/uL; Eosinophils% 9.9 % (0-5); Hematocrit 46.6 % (40-54); Hemoglobin 15.3 g/dL (13.0-16.5); Lymphocyte # 2.14 X10^3/ul (0.83-4.51); Lymphocyte % 21.5 % (19-41); Mean Corp Hgb Conc 32.8 g/dL (32-36); Mean Corpuscular Hgb 29.1 pg (27.0-32.0); Mean Corpuscular Volume 88.6 fL (80-94); Mean Platelet Vol. 10.6 fl (6.2-12.0); Monocyte# 0.58 X10^3/uL; Monocyte% 5.8 % (0-10); NRBC Flagged by Analyzer 0 % (0-5); Neutrophil % 62.2 % (47-70); Platelet Count 222 K/mm3 (150-450); RBC Distribution Width CV 13.2 % (11.6-14.6); RBC Distribution Width SD 43.3 fl (35.1-43.9); Red Blood Count 5.26 M/mm3 (4.6-6.2)
--- OUTSIDE RECORDS SUMMARY | 2024-07-22 22:48 | XMS RPT_ITS | CCD ---
Author Organization [facility] Care Team Providers Care Resource Room Teacher Name Role Phone Melanie Ocasio Attending Unavailable Usha Frazier Referring Unavailable Usha Frazier Primary Care Usha Nelson Primary Care Provider Usha Frazier Primary Care Provider Usha Frazier DO Primary Care Provider [phone] USHA FRAZIER Primary Care Unavailable ERIK RUTLEDGE Attending Unavailable DARIO , DR KERR A Primary Care Physician CYNTHIA MURPHY MD Attending Unavailable DARIO , DR USHA Chase Primary Care Unavailnora FRAZIER DO, DR USHA Chase Primary Care Unavailnora e STEFANY PAGE MD Attending Unavailable Allergies Allergy Classification Reported Allergen(s) Allergy Type Date of Onset Reaction(s) Facility (20 sources) Adrenergic Beta-Antagonists Propensity to adverse reactions to drug 04-27-20 13 Other (See Comments) [place], [place] (20 sources) bee venom Propensity to adverse reactions to drug 02-26-20 09 Anaphylaxis [place], [place] (20 sources) cultivated mushroom extract Drug Allergy 08-25-20 14 H[place] (19 sources) Dextromethorphan Drug Allergy 11-04-[address] [facility] [place] ([facility] sources) Dextromethorphan; Translations: [DEXTROMETHORPHAN HBR] Drug Allergy 03-17-20 16 [place]aphylaxis [place] (20 sources) POISON MIMI EXTRACT Drug Allergy 02-29-20 09 Rash [place] (20 sources) Yw-Hixtmhwxyc-Xuyfm minophen Propensity to adverse reactions to drug 12-28-19 19 [place] (8 sources) Doxylamine Drug Allergy 11-23-19 20 [place] (9 sources) Pseudoephedrine; Translations: [PSEUDOEPHEDRINE] Drug Allergy 12-28-19 16 [place] (1 source) Adrenergic Beta-Antagonists; Translations: [BETA-BLOCKERS (BETA-ADRENERGIC BLOCKING AGTS)] Propensity to adverse reactions to drug (disorder) 04-27-20 13 [facility] (1 source) BEES; Translations: [BEES] Propensity to adverse reactions (disorder) 02-26-20 09 [facility] (1 source) PROCHLORPERAZINE EDISYLATE; Translations: [PROCHLORPERAZINE EDISYLATE] Propensity to adverse reactions to drug (disorder) 05-30-20 10 [facility] (1 source) MUSHROOM COMBINATION NO.1; Translations: [MUSHROOM COMBINATION NO.1] Propensity to adverse reactions to drug (disorder) 08-25-20 14 [facility] (1 source) ECLNXIHQX-KOM-[id number] ETAMINOPHEN; Translations: [WCLLYTGAB-AMY-SB-A CETAMINOPHEN] Propensity to adverse reactions to drug (disorder) 09-20-20 18 [facility] (1 source) POISON MIMI; Translations: [POISON MIMI] Propensity to adverse reactions (disorder) 02-29-20 09 [facility] (2 sources) Acetaminophen / Dextromethorphan / Doxylamine / Pseudoephedrine; Translations: [APAP/dextromethorp mensah/doxylamine/PSE] Drug Allergy [facility] (2 sources) Bee pollen; Translations: [bee pollen] Drug Allergy anaphyalic shock [facility] (2 sources) Mushroom (edible) Food allergy [facility] (2 sources) Prochlorperazine; Translations: [prochlorperazine] Drug Allergy Muscle spasm [facility] Medications Current Medications Medication Drug Class(es) Dates Sig (Normalized) Sig (Original) acetaminophen 500 mg oral tablet (20 sources) Start: 08-12-2020 acetaminophen (TYLENOL) tablet 1,000 mg Start: 08-10-2020 End: 08-12-2020 acetaminophen (OFIRMEV) infu ariel 1,000 mg Start: 06-28-2020 take 1 dose by mouth three times daily 1,000 mg, Oral, EVERY 8 HOURS SCHEDULED (3 times per day), First dose on Sat06/28/20 at 2200 Maximum dose of acetaminophen is 4000 mg from all sources in 24 hours. Start: 04-27-2020 acetaminophen (TYLENOL) tablet 1,000 mg Start: 08-08-2019 take 2 tablets by mo uth every eight hours acetaminophen (TYLENOL) 500 MG tablet Take 2 tablets by mouth every 8 hours 120 tablet 3 08/08/2019 Active Start: 08-06-2019 acetaminophen (TYLENOL) tablet 1,000 mg Start: 07-27-2019 take 500 mg by mouth every six hours as needed for pain, then take 4000 mg by mouth every twenty-four hours as needed for pain 500 mg, Oral, EVERY 6 HOURS PRN, Pain Mild (1-3), Fever, Starting 07/27/19 at 2059 Maximum dose of acetaminophen is 4000 mg from all sources in 24 hours. End: 08-08-2019 take 4 tablets by mouth twice daily acetaminophen (TYLENOL) 500 MG tablet Take 2,000 mg by mouth 2 times daily 0 08/08/2019 Discontinued (REORDER) acetaminophen 325 mg / oxyCODONE hydrochloride 5 mg oral tablet (4 sources) Opioid Agonist Start: 08-09-2020 End: 08-16-2020 take 1 tablet by mouth every six hours as needed for pain, then take 1 tablet by mouth as needed for pain oxyCODONE-acetaminophen (PERCOCET) 5-325 MG per tablet Indications: Colon perforation (HCC) Take 1 tablet by mouth every 6 hours as needed for Pain for up to 7 days. Intended supply: 7 days. Take lowest dose possible to manage pain 28 tablet 0 08/09/2020 08/16/2020 Active Start: 06-28-2020 End: 07-05-2020 take 1 tablet by mouth every six hours as needed for pain, then take 1 tablet by mouth as needed for pain oxyCODONE-acetaminophen (PERCOCET) 5-325 MG per tablet Indications: Diverticulitis Take 1 tablet by mouth every 6 hours as needed for Pain for up to 7 days. Intended supply: 7 days. Take lowest dose possible to manage pain 28 tablet 0 06/28/2020 07/05/2020 Active Start: 05-14-2019 End: 05-14-2019 oxyCODONE-acetaminophen (PER COCET) 5-325 MG per tablet 2 tablet albuterol 0.833 mg/ml / ipratropium bromide 0.167 mg/ml inhalant solution (2 sources) Anticholinergic, beta2-Adrenergic Agonist Start: 08-10-2020 End: 08-13-2020 ipratropium-albuterol (DUONEB) nebulizer solution 1 ampule alginic acid 200 mg / calcium carbonate 80 mg / magnesium trisilicate 20 mg / sodium bicarbonate 70 mg oral tablet (1 source) Start: 06-29-2020 calcium carbonate (TUMS) chewable tablet 500 mg ALPRAZolam 0.25 mg oral tablet (1 source) Benzodiazepine Start: 07-28-2019 ALPRAZolam (XANAX) tablet 0.5 mg benztropine mesylate 0.5 mg oral tablet (1 source) Anticholinergic, Antihistamine Start: 08-07-2019 benztropine (COGENTIN) tablet 0.5 mg budesonide 3 mg delayed release oral capsule (10 sources) Corticosteroid Start: 10-17-2019 End: 11-01-2019 take 1 capsule by mouth twice daily budesonide (ENTOCORT EC) 3 MG extended release capsule Take 1 capsule by mouth 2 times daily for 15 days 30 capsule 0 10/17/2019 11/01/2019 Active End: 08-08-2019 take 3 capsules by mouth once daily in the morning, then take 1 capsule by mouth budesonide (ENTOCORT EC) 3 MG extended release capsule Take 9 mg by mouth every morning 0 08/08/2019 Discontinued (Stop Taking at Discharge) capsaicin 0.75 mg/ml topical cream (3 sources) Start: 10-18-2019 End: 11-17-2019 capsicum (ZOSTRIX) 0.075 % topical cream Apply topically 3 times daily. 56 g 1 10/18/2019 11/17/2019 Active ciprofloxacin 500 mg oral tablet (3 sources) Quinolone Antimicrobial Start: 08-08-2019 End: 08-15-2019 take 1 tablet by mouth twice daily ciprofloxacin (CIPRO) 500 MG tablet Take 1 tablet by mouth 2 times daily for 7 days 14 tablet 0 08/08/2019 08/15/2019 Active Start: 07-22-2019 End: 08-02-2019 take 1 tablet by mouth twice daily ciprofloxacin (CIPRO) 500 MG tablet Take 500 mg by mouth 2 times daily 0 07/22/2019 07/29/2019 Discontinued (Stop Taking at Discharge) 2 ml dicyclomine hydrochloride 10 mg/ml injection (20 sources) Anticholinergic Start: 10-21-2019 dicyclomine (B ENTYL) injection 20 mg Start: 10-17-2019 End: 08-09-2020 take 1 tablet by mouth three times daily as needed for pain dicyclomine (BENTYL) 20 MG tablet Take 1 tablet by mouth 3 times daily as needed (abdominal pain) 20 tablet 0 10/17/2019 08/09/2020 Discontinued (LIST CLEANUP) Start: 08-05-2019 End: 08-05-2019 take 20 mg by mouth every six hours as needed for pain 20 mg, Oral, EVERY 6 HOURS PRN, abdominal pain, Starting Sat08/05/19 at 0946 Start: 07-27-2019 take 20 mg by mouth four times daily before mealtime 20 mg, Oral, 4 TIMES DAILY BEFORE MEALS & NIGHTLY, First dose on 07/27/19 at 2200 take 1 tablet by kelli th every six hours as needed dicyclomine (BENTYL) 20 MG tablet Take 20 mg by mouth every 6 hours as needed 0 Active take 1 tablet by kelli th four times daily before mealtime dicyclomine (BENTYL) 20 MG tablet Take 20 mg by mouth 4 times daily (before meals and nightly) 0 Active 0.4 ml enoxaparin sodium 100 mg/ml prefilled syringe (6 sources) Low Molecular Weight Heparin Start: 08-10-2020 inject 40 mg by subcutaneous injection once daily 40 mg, Subcutaneous, DAILY, First dose on Sat08/10/20 at 0900 Start: 06-29-2020 inject 40 mg by subc utaneous injection once daily 40 mg, Subcutaneous, DAILY, First dose (after last modification) on Sat06/29/20 at 0900 Start: 05-09-2020 enoxaparin (LO VENOX) injection 40 mg Start: 08-05-2019 enoxaparin (LO VENOX) injection 40 mg Start: 07-27-2019 enoxaparin (LO VENOX) injection 40 mg Start: 07-24-2019 inject 40 mg by subc utaneous injection once daily 40 mg, Subcutaneous, DAILY, First dose on Sat07/24/19 at 0945 2 ml famotidine 10 mg/ml injection (2 sources) Histamine-2 Receptor Antagonist Start: 05-08-2020 End: 05-08-2020 famotidine (PEPCID) injection 20 mg gabapentin 100 mg oral capsule (14 sources) Anti-epileptic Agent Start: 08-10-2020 gabapenti n (NEURONTIN) capsule 100 mg Start: 05-09-2020 End: 08-08-2020 take 1 capsule by mouth twice daily gabapentin (NEURONTIN) 300 MG capsule Take 1 capsule by mouth 2 times daily for 90 days. 90 capsule 1 05/10/2020 Suspended Start: 10-26-2019 End: 05-10-2020 take 100 mg by mouth three times daily 100 mg, Oral, 3 TIMES DAILY, First dose on Sat04/27/20 at 0900 1 ml hydrALAZINE hydrochloride 20 mg/ml injection (1 source) Arteriolar Vasodilator Start: 06-29-2020 hydrALA ZINE (APRESOLINE) injection 10 mg hydrocortisone 100 mg injection (1 source) Corticosteroid Start: 04-27-2020 hydrocortisone sodium succinate PF (SOLU-CORTEF) injection 100 mg HYDROmorphone (DILAUDID) injection 0.5 mg (2 sources) Start: 08-09-2020 HYDROmorphone (DILAUDID) injection 0.5 mg Start: 06-29-2020 HYDROmorphone (DILAUDID) injection 0.5 mg hydrOXYzine hydrochloride 50 mg oral tablet (20 sources) Antihistamine Start: 12-05-2022 hydrOXYzine hy drochloride 50 mg oral tablet Dose : 50 mg = 1 tab(s), Oral, QID, PRN as needed for anxiety, # 40 tab(s), 0 Refill(s), Pharmacy: [id number], Anxiety, 182, cm, 12/05/22 14:35:00 EST, Height Start Date: 12/05/22 Status: Ordered Start: 08-10-2020 take 50 mg by mouth every six hours as needed for anxiety 50 mg, Oral, EVERY 6 HOURS PRN, Anxiety, Starting 11/11/20 at 0506 Start: 06-27-2020 hydrOXYzine (V ISTARIL) capsule 50 mg Start: 04-27-2020 hydrOXYzine (V ISTARIL) capsule 50 mg Start: 08-05-2019 hydrOXYzine (V ISTARIL) capsule 25 mg Start: 07-29-2019 hydrOXYzine (V ISTARIL) capsule 25 mg Start: 07-25-2019 End: 07-29-2019 take 25 mg by mouth three times daily as needed for anxiety 25 mg, Oral, 3 TIMES DAILY PRN, Anxiety, Starting Sat07/27/19 at 2059 take 2 tablets by [facility] every six hours as needed for anxiety hydrOXYzine (ATARAX) 25 MG tablet Take 50 mg by mouth every 6 hours as needed for Anxiety 0 Active 1 ml ketorolac tromethamine 30 mg/ml cartridge (9 sources) Nonsteroidal Anti-inflammatory Drug, Cyclooxygenase Inhibitor Start: 08-11-2020 End: 08-16-2020 ketorolac (TORADOL) injection 30 mg Start: 06-29-2020 End: 07-04-2020 ketorolac (TORADOL) injectio n 30 mg Start: 05-09-2020 End: 05-09-2020 ketorolac (TORADOL) injectio n 30 mg Start: 05-08-2020 End: 05-08-2020 ketorolac (TORADOL) injectio n 30 mg Start: 10-17-2019 End: 10-17-2019 ketorolac (TORADOL) injectio n 30 mg Start: 08-17-2019 End: 08-17-2019 ketorolac (TORADOL) injectio n 30 mg Start: 05-14-2019 End: 05-14-2019 ketorolac (TORADOL) injectio n 30 mg Start: 05-11-2019 End: 05-11-2019 ketorolac (TORADOL) injectio n 15 mg lidocaine 0.04 mg/mg medicated patch (1 source) Antiarrhythmic, Amide Local Anesthetic Start: 06-29-2020 lidocaine 4 % external patch 1 patch lisinopril 10 mg oral tablet (18 sources) Angiotensin Converting Enzyme Inhibitor Start: 04-27-2020 End: 08-09-2020 take 10 mg by mouth once daily 10 mg, Oral, DAILY, First dose on Sat05/09/20 at 0900 Start: 08-05-2019 take 10 mg by mouth once daily 10 mg, Oral, DAILY, First dose on Sat08/05/19 at 1015 Start: 07-28-2019 take 10 mg by mouth once daily 10 mg, Oral, DAILY, First dose on Sat07/28/19 at 0900 Start: 07-25-2019 take 10 mg by mouth once daily 10 mg, Oral, DAILY, First dose on 07/25/19 at 1230 take 1 tablet by kelli once daily lisinopril (PRINIVIL;ZESTRIL) 10 MG tablet Take 10 mg by mouth daily 0 Active magnesium hydroxide 80 mg/ml oral suspension (1 source) Start: 07-24-2019 take 30 mL by mouth once daily as needed for constipation 30 mL, Oral, DAILY PRN, Constipation, Starting Sat07/24/19 at 0926 First line therapy for constipation. melatonin 3 mg oral tablet (1 source) Start: 08-05-2019 melatonin tablet 3 mg methocarbamol 500 mg oral tablet (1 source) Muscle Relaxant Start: 06-28-2020 methocarbamol (ROBAXIN) tablet 1,000 mg methylPREDNISolone 40 mg injection (5 sources) Corticosteroid Start: 05-08-2020 methylPREDNISolone sodium (SOLU-MEDROL) injection 20 mg Start: 04-27-2020 End: 04-27-2020 60 mg, Intravenous, DAILY, F irst dose on Sat04/27/20 at 0900 Start: 08-05-2019 methylPREDNISo lone sodium (SOLU-MEDROL) injection 60 mg Start: 07-27-2019 methylPREDNISo lone sodium (SOLU-MEDROL) injection 40 mg Start: 07-24-2019 methylPREDNISo lone sodium (SOLU-MEDROL) injection 60 mg metroNIDAZOLE 500 mg oral tablet (5 sources) Nitroimidazole Antimicrobial Start: 10-28-2020 metroNIDAZOLE (FLAGYL) 500 MG tablet On the day prior to surgery take one tablet at 1:00pm; one tablet at 2:00pm; one tablet at 11:00pm 3 tablet 0 10/28/2020 Active Start: 08-08-2019 End: 08-15-2019 take 1 tablet by mouth every six hours metroNIDAZOLE (FLAGYL) 500 MG tablet Take 1 tablet by mouth every 6 hours for 7 days 28 tablet 0 08/08/2019 08/15/2019 Active Start: 07-22-2019 End: 08-02-2019 take 1 tablet by mouth three times daily metroNIDAZOLE (FLAGYL) 500 MG tablet Take 500 mg by mouth 3 times daily 0 07/22/2019 07/29/2019 Discontinued (Stop Taking at Discharge) neomycin sulfate 500 mg oral tablet (2 sources) Aminoglycoside Antibacterial Start: 10-28-2020 neomycin (MYCIFRADIN ) 500 MG tablet On the day prior to surgery take two tablets at 1:00pm; two tablets at 2:00pm; two tablets at 11:00pm 6 tablet 0 10/28/2020 Active 24 hr nicotine 0.875 mg/hr transdermal system (1 source) Cholinergic Nicotinic Agonist Start: 08-05-2019 nicotine (NICODERM CQ) 21 MG/24HR 1 patch ondansetron (ZOFRAN-ODT) disintegrating tablet 4 mg (1 source) Start: 06-26-2020 ondansetron (ZOFRAN-ODT) disintegrating tablet 4 mg oxyCODONE (7 sources) Opioid Agonist Start: 08-12-2020 oxyCODONE (ROXICODONE) immediate release tablet 5 mg Start: 06-28-2020 oxyCODONE (ANIL ICODONE) immediate release tablet 5 mg Start: 05-09-2020 oxyCODONE (ANIL ICODONE) immediate release tablet 5 mg Start: 05-08-2020 End: 05-13-2020 take 1 tablet by mouth every six hours as needed for pain oxyCODONE (ROXICODONE) 5 MG immediate release tablet Indications: Generalized abdominal pain Take 1 tablet by mouth every 6 hours as needed for Pain for up to 3 days. 10 tablet 0 05/10/2020 05/13/2020 Active Start: 08-06-2019 End: 08-11-2019 take 1 tablet by mouth every four hours as needed for pain oxyCODONE (ROXICODONE) 5 MG immediate release tablet Indications: IBD (inflammatory bowel disease) Take 1 tablet by mouth every 4 hours as needed for Pain for up to 3 days. 18 tablet 0 08/08/2019 08/11/2019 Active pantoprazole 40 mg delayed release oral tablet (3 sources) Proton Pump Inhibitor Start: 04-27-2020 take 40 mg by mouth once daily before breakfast 40 mg, Oral, DAILY BEFORE BREAKFAST, First dose on Sat04/27/20 at 0700 Do not crush or break. Substituted for Omeprazole (PRILOSEC). Start: 08-06-2019 take 40 mg by mouth once daily before breakfast 40 mg, Oral, DAILY BEFORE BREAKFAST, First dose on Deborah 08/06/19 at 0700 Do not crush or break. Substituted for Omeprazole (PRILOSEC). Start: 07-28-2019 take 40 mg by mouth once daily before breakfast 40 mg, Oral, DAILY BEFORE BREAKFAST, First dose on 07/28/19 at 0700 Do not crush or break. Substituted for Omeprazole (PRILOSEC). polyethylene glycol 3350 25238 mg powder for oral solution (5 sources) Osmotic Laxative Start: 08-15-2020 polyethylene glycol (GLYCOLAX) packet 17 g Start: 06-27-2020 End: 06-27-2020 polyethylene glycol (GLYCOLA X) powder 238 g Start: 05-09-2020 End: 06-10-2020 take 17 g by mouth once daily polyethylene glycol (GLY COLAX) 17 g packet Take 17 g by mouth daily 527 g 1 05/11/2020 06/10/2020 Active Start: 04-27-2020 polyethylene g lycol (GLYCOLAX) packet 17 g predniSONE 20 mg oral tablet (4 sources) Start: 08-08-2019 End: 09-05-2019 take 2 tablets by mouth once daily predniSONE (DELTASONE) 20 MG tablet Take 2 tablets by mouth daily for 28 days 56 tablet 0 08/08/2019 09/05/2019 Active Start: 08-05-2019 End: 08-05-2019 predniSONE (DELTASONE) table t 40 mg Start: 07-29-2019 take 4 tablets by mo uth once daily, then take 3 tablets by mouth once daily, then take 2 tablets by mouth once daily, then take 1 tablet by mouth once daily predniSONE (DELTASONE) 10 MG tablet Take 4 tabs PO daily for 2 weeks then 3 tabs PO daily for 1 week then 2 tabs po daily for 1 week then 1 tab po daily for 1 week 98 tablet 0 07/29/2019 Active Promethazine (2 sources) Phenothiazine Start: 05-08-2020 promethazine ( PHENERGAN) tablet 12.5 mg Start: 04-27-2020 promethazine ( PHENERGAN) tablet 12.5 mg QUEtiapine 25 mg oral tablet (7 sources) Atypical Antipsychotic Start: 08-07-2019 take 1 tablet by mouth once daily QUEtiapine (SEROQUEL) 25 MG tablet Take 1 tablet by mouth nightly 30 tablet 3 08/08/2019 Active sodium chloride flush 0.9 % injection 3 mL (4 sources) Start: 10-30-2020 sodium chlorid e flush 0.9 % injection 3 mL Start: 10-21-2019 sodium chlorid e flush 0.9 % injection 3 mL Start: 10-17-2019 sodium chlorid e flush 0.9 % injection 3 mL Start: 05-11-2019 sodium chlorid e flush 0.9 % injection 3 mL traMADol hydrochloride 50 mg oral tablet (6 sources) Opioid Agonist Start: 04-27-2020 traMADol (ULTR AM) tablet 50 mg Start: 05-11-2019 End: 05-16-2019 take 1 tablet by mouth every six hours as needed for pain traMADol (ULTRAM) 50 MG tablet Indications: Generalized abdominal pain Take 1 tablet by mouth every 6 hours as needed for Pain for up to 5 days. 15 tablet 0 05/11/2019 05/16/2019 Active End: 05-11-2019 take 1 tablet by mouth every four hours as needed for pain traMADol (ULTRAM) 50 MG tablet Take 50 mg by mouth every 4 hours as needed for Pain. 0 05/11/2019 Discontinued (Therapy completed) Completed/Discontinued Medications Medication Drug Class(es) Dates Sig (Normalized) Sig (Original) acetaminophen 325 mg / HYDROcodone bitartrate 5 mg oral tablet (4 sources) Opioid Agonist End: 05-08-2020 take 1 tablet by mouth every eight hours as needed for pain HYDROcodone-acetami nophen (NORCO) 5-325 MG per tablet Take 1 tablet by mouth every 8 hours as needed for Pain. 0 05/08/2020 Discontinued End: 07-29-2019 take 1 tablet by mouth every four hours as needed for pain HYDROcodone-acetaminophen (NORCO) 5-325 MG per tablet Take 1 tablet by mouth every 4 hours as needed for Pain. 0 07/29/2019 Discontinued (Stop Taking at Discharge) 0.8 ml adalimumab 50 mg/ml prefilled syringe (18 sources) Tumor Necrosis Factor Terrance Start: 05-13-2020 End: 07-01-2020 adalimumab (HUMIRA) 40 MG/0.8ML injection Inject 3.2 mLs into the skin once for 1 dose On Day 1, then 80mg once on Day #15, then 40mg every 2 weeks 1 kit 5 05/13/2020 07/01/2020 Discontinued (Stop Taking at Discharge) Start: 09-15-2019 End: 05-08-2020 adalimumab (HUMIRA) 40 MG/0. 8ML injection Inject 0.8 mLs into the skin every 14 days Inject 3.2 ML subcutaneously on day 1 then 80 mg on day 15 then 40mg on day 29 1.6 mL 3 09/15/2019 05/08/2020 Discontinued (Cost of medication) Start: 07-31-2019 End: 08-05-2019 HUMIRA PEN 40 MG/0.8ML injec tion Start: 07-30-2019 End: 08-05-2019 Adalimumab (HUMIRA PEN) 40 M G/0.4ML PNKT Inject 40 mg under the skin every other week (starting day 29) 2 each 5 07/30/2019 08/05/2019 Discontinued (ERROR) Start: 07-30-2019 End: 08-05-2019 Adalimumab (HUMIRA PEN-CD/UC /HS STARTER) 80 MG/0.8ML PNKT Inject 160 mg under the skin on day 1 then 80 mg on day 15. Followed by 40 mg every other week (starting on day 29) 1 each 0 07/30/2019 08/05/2019 Discontinued (ERROR) Start: 01-13-2019 End: 08-05-2019 adalimumab (HUMIRA) 40 MG/0. 8ML injection Inject 3.2 mLs into the skin once for 1 dose Day 1. Then 80mg Day 15. Then 40mg Day 29. Then inject 40mg every other week for maintenance. 12 kit 0 07/29/2019 08/05/2019 Discontinued (ERROR) adalimumab (HUMI RA) 40 MG/0.8ML injection Inject 3.2 ML subcutaneously on day 1 then 80 mg on day 15 then 40mg on day 29 0 Active amLODIPine 5 mg oral tablet (4 sources) Dihydropyridine Calcium Channel Terrance Start: 12-29-2018 End: 07-24-2019 take 1 tablet by mouth once daily amLODIPine (NORVASC) 5 MG tablet Take 1 tablet by mouth daily 30 tablet 0 12/29/2018 07/24/2019 Discontinued (LIST CLEANUP) azaTHIOprine 50 mg oral tablet (1 source) Purine Antimetabolite Start: 05-13-2020 End: 07-01-2020 take 2.5 tablets by mouth once daily azaTHIOprine (IMURAN) 50 MG tablet Take 2.5 tablets by mouth daily While on Humira 30 tablet 3 05/13/2020 07/01/2020 Discontinued (Stop Taking at Discharge) calcium chloride 0.0014 meq/ml / potassium chloride 0.004 meq/ml / sodium chloride 0.103 meq/ml / sodium lactate 0.028 meq/ml injectable solution (2 sources) Start: 08-09-2020 End: 08-10-2020 Intravenous, at 100 mL/hr, CONTINUOUS, Starting Sat08/09/20 at 2245 Start: 06-26-2020 End: 06-27-2020 lactated ringers infusion gadobenate dimeglumine (MULTIHANCE) injection 20 mL (1 source) Start: 07-24-2019 End: 07-24-2019 gadobenate dimeglumine (MULTIHANCE) injection 20 mL gadobutrol (GADAVIST) inject ion 12 mL (1 source) Start: 05-10-2020 End: 05-10-2020 gadobutrol (GADAVIST) inject ion 12 mL 50 ml glucose 50 mg/ml injec tion (1 source) Start: 10-18-2019 End: 10-18-2019 dextrose 5% bolus 1,000 mL 500 ml glucose 50 mg/ml / potassium chloride 0.02 meq/ml / sodium chloride 4.5 mg/ml injection (3 sources) Start: 08-12-2020 End: 08-15-2020 dextrose 5 % and 0.45 % NaCl with KCl 20 mEq infusion Start: 06-28-2020 Intravenous, a t 75 mL/hr, CONTINUOUS, Starting Sat06/28/20 at 2045 Start: 06-27-2020 End: 06-28-2020 dextrose 5 % and 0.45 % NaCl with KCl 20 mEq infusion 250 ml glucose 50 mg/ml / sodium chloride 9 mg/ml injection (1 source) Start: 07-27-2019 End: 07-28-2019 dextrose 5 % and 0.9 % sodium chloride infusion 1 ml HYDROmorphone hydrochloride 1 mg/ml cartridge (10 sources) Opioid Agonist Start: 08-09-2020 End: 08-09-2020 HYDROmorphone (DILAUDID) injection 1 mg Start: 06-29-2020 End: 06-29-2020 HYDROmorphone (DILAUDID) inj ection 0.5 mg Start: 06-28-2020 End: 06-28-2020 HYDROmorphone (DILAUDID) inj ection 0.5 mg Start: 06-26-2020 End: 06-26-2020 HYDROmorphone (DILAUDID) inj ection 1 mg Start: 04-27-2020 HYDROmorphone (DILAUDID) injection 0.25 mg Start: 08-06-2019 HYDROmorphone (DILAUDID) injection 0.5 mg Start: 07-24-2019 take 0.5 mg by mouth every three hours as needed for pain 0.5 mg, Intravenous, EVERY 3 HOURS PRN, Pain Moderate (4-6), Pain Severe (7-10), Starting Sat07/24/19 at 0928 If oral and IV narcotics ordered, use oral first and only use IV if oral is ineffective or cannot take oral. Do Not give oral and IV within 1 hour of each other unless specifically ordered. Start: 05-11-2019 End: 05-12-2019 HYDROmorphone (DILAUDID) inj ection 1 mg Iopamidol (3 sources) Radiographic Contrast Agent Start: 10-17-2019 End: 10-17-2019 iopamidol (ISOVUE-370) 76 % injection 75 mL Start: 08-17-2019 End: 08-17-2019 iopamidol (ISOVUE-370) 76 % injection 100 mL Start: 05-12-2019 End: 05-12-2019 iopamidol (ISOVUE-370) 76 % injection 75 mL 1 ml LORazepam 2 mg/ml injection (9 sources) Benzodiazepine Start: 08-15-2020 End: 08-15-2020 LORazepam (ATIVAN) injection 1 mg Start: 06-29-2020 End: 06-29-2020 LORazepam (ATIVAN) injection 0.5 mg Start: 06-28-2020 End: 06-29-2020 LORazepam (ATIVAN) injection 0.5 mg Start: 05-08-2020 LORazepam (ATI VAN) injection 0.5 mg Start: 04-27-2020 End: 04-27-2020 LORazepam (ATIVAN) injection 1 mg Start: 04-27-2020 LORazepam (ATI VAN) injection 0.5 mg Start: 10-21-2019 End: 10-21-2019 LORazepam (ATIVAN) injection 1 mg Start: 07-24-2019 LORazepam (ATI VAN) injection 0.5 mg 2 ml metoclopramide 5 mg/ml prefilled syringe (1 source) Dopamine-2 Receptor Antagonist Start: 10-18-2019 End: 10-18-2019 metoclopramide (REGLAN) injection 15 mg 1 ml morphine sulfate 10 mg/ml injection (12 sources) Opioid Agonist Start: 08-09-2020 End: 08-09-2020 morphine injection 4 mg Start: 08-09-2020 End: 08-09-2020 morphine injection 4 mg Start: 07-03-2020 End: 07-03-2020 morphine injection 4 mg Start: 06-26-2020 End: 06-26-2020 morphine injection 4 mg Start: 05-08-2020 morphine sulfa te (PF) injection 2 mg Start: 05-08-2020 End: 05-08-2020 morphine injection 4 mg Start: 04-27-2020 End: 04-27-2020 take 2 mg by mouth every four hours as needed for pain 2 mg, Intravenous, EVERY 4 HOURS PRN, Pain Moderate (4-6), Pain Severe (7-10), Starting 04/27/20 at 0131 If oral and IV narcotics ordered, use oral first and only use IV if oral is ineffective or cannot take oral. Do Not give oral and IV within 1 hour of each other unless specifically ordered. Start: 10-18-2019 End: 10-18-2019 morphine (PF) injection 6 mg Start: 10-17-2019 End: 10-17-2019 morphine injection 4 mg Start: 07-27-2019 morphine (PF) injection 2 mg omeprazole 20 mg delayed release oral capsule (16 sources) Proton Pump Inhibitor Start: 11-26-2018 End: 08-09-2020 take 1 capsule by mouth once daily omeprazole (PRILOSEC) 20 MG delayed release capsule Take 1 capsule by mouth daily 90 capsule 3 11/26/2018 08/09/2020 Discontinued (LIST CLEANUP) 2 ml ondansetron 2 mg/ml injection (20 sources) Serotonin-3 Receptor Antagonist Start: 10-30-2020 End: 10-30-2020 ondansetron (ZOFRAN) injection 4 mg Start: 08-09-2020 End: 08-09-2020 4 mg, Intravenous, EVERY 6 H OURS PRN, Nausea, Vomiting, Starting 08/09/20 at 2224 Start: 07-03-2020 End: 07-03-2020 ondansetron (ZOFRAN) injecti on 4 mg Start: 06-28-2020 End: 06-28-2020 ondansetron (ZOFRAN) injecti on 4 mg Start: 06-26-2020 End: 06-26-2020 ondansetron (ZOFRAN) injecti on 4 mg Start: 05-08-2020 End: 05-08-2020 ondansetron (ZOFRAN) injecti on 4 mg Start: 10-21-2019 End: 10-21-2019 ondansetron (ZOFRAN) injecti on 4 mg Start: 10-19-2019 End: 10-19-2019 ondansetron (ZOFRAN) injecti on 4 mg Start: 10-17-2019 End: 10-17-2019 ondansetron (ZOFRAN) injecti on 4 mg Start: 10-17-2019 take 1 tablet by kelli th every eight hours as needed for nausea ondansetron (ZOFRAN) 4 MG tablet Take 1 tablet by mouth every 8 hours as needed for Nausea 10 tablet 0 10/17/2019 Active Start: 09-15-2019 End: 10-17-2019 take 1 tablet by mouth once daily as needed for nausea ondansetron (ZOFRAN) 4 MG tablet Take 1 tablet by mouth daily as needed for Nausea or Vomiting 30 tablet 3 09/15/2019 10/17/2019 Discontinued (LIST CLEANUP) Start: 08-17-2019 End: 08-17-2019 ondansetron (ZOFRAN) injecti on 4 mg Start: 08-05-2019 ondansetron (Z OFRAN) injection 4 mg Start: 07-27-2019 ondansetron (Z OFRAN) injection 4 mg Start: 07-24-2019 End: 07-25-2019 4 mg, Intravenous, EVERY 6 H OURS PRN, Nausea, Vomiting, Starting 07/24/19 at 0928 Start: 05-11-2019 End: 07-24-2019 take 1 tablet by mouth every eight hours as needed for nausea ondansetron (ZOFRAN) 4 MG tablet Take 1 tablet by mouth every 8 hours as needed for Nausea 10 tablet 0 05/11/2019 07/24/2019 Discontinued (LIST CLEANUP) Start: 05-11-2019 End: 05-12-2019 ondansetron (ZOFRAN) injecti on 4 mg piperacillin 3000 mg / tazobactam 375 mg injection (9 sources) Penicillin-class Antibacterial, beta Lactamase Inhibitor Start: 08-09-2020 End: 08-13-2020 3.375 g, Intravenous, EVERY 8 HOURS, 12 doses, First dose on Sat08/09/20 at 2245, Last dose on 08/13/20 at 1445 Start: 06-27-2020 End: 07-01-2020 3.375 g, Intravenous, EVERY 8 HOURS, 15 doses, First dose on Sat06/27/20 at 0000, Last dose on Sat07/01/20 at 1600 Start: 06-26-2020 End: 06-26-2020 piperacillin-tazobactam (ZOS YN) 4.5 g in dextrose 100 mL IVPB (premix) Start: 05-09-2020 piperacillin-t azobactam (ZOSYN) 3.375 g in dextrose 50 mL IVPB (premix) Start: 05-08-2020 End: 05-08-2020 piperacillin-tazobactam (ZOS YN) 4.5 g in dextrose 100 mL IVPB (premix) Start: 04-27-2020 3.375 g, Intra venous, EVERY 8 HOURS, First dose on Sat04/27/20 at 0300, Until Discontinued Start: 08-05-2019 piperacillin-t azobactam (ZOSYN) 3.375 g in dextrose 50 mL IVPB extended infusion (premix) Start: 07-27-2019 piperacillin-t azobactam (ZOSYN) 3.375 g in dextrose 50 mL IVPB extended infusion (premix) Start: 07-24-2019 piperacillin-t azobactam (ZOSYN) 3.375 g in dextrose 50 mL IVPB extended infusion (premix) 1000 ml sodium chloride 9 mg /ml injection (20 sources) Start: 08-10-2020 End: 08-12-2020 0.9 % sodium chloride infusi on Start: 08-09-2020 10 mL, Intrave nous, EVERY 12 HOURS SCHEDULED (2 times per day), First dose on Sat08/09/20 at 2245 Start: 08-09-2020 take 10 mL intraveno us route once as needed 10 mL, Intravenous, PRN, Line Care, After every IV line use, Starting Sat08/09/20 at 2224 Start: 06-26-2020 10 mL, Intrave nous, EVERY 12 HOURS SCHEDULED (2 times per day), First dose on Sat06/26/20 at 2100 Start: 06-26-2020 take 10 mL intraveno us route once as needed 10 mL, Intravenous, PRN, Line Care, After every IV line use, Starting Sat06/26/20 at 1936 Start: 05-08-2020 0.9 % sodium c hloride infusion Start: 05-08-2020 sodium chlorid e flush 0.9 % injection 10 mL Start: 05-08-2020 End: 05-08-2020 0.9 % sodium chloride bolus Start: 04-27-2020 End: 04-27-2020 Intravenous, at 75 mL/hr, CONTINUOUS, Starting Sat04/27/20 at 0200, For 1 day Start: 04-27-2020 End: 04-29-2020 0.9 % sodium chloride infusi on Start: 04-27-2020 10 mL, Intrave nous, EVERY 12 HOURS SCHEDULED (2 times per day), First dose on Sat04/27/20 at 0900 Start: 04-27-2020 take 10 mL intraveno us route once as needed 10 mL, Intravenous, PRN, Line Care, After every IV line use, Starting Sat04/27/20 at 0129 Start: 10-21-2019 End: 10-21-2019 0.9 % sodium chloride bolus Start: 10-17-2019 End: 10-19-2019 0.9 % sodium chloride bolus Start: 08-17-2019 End: 08-17-2019 0.9 % sodium chloride bolus Start: 08-05-2019 0.9 % sodium c hloride infusion Start: 08-05-2019 sodium chlorid e flush 0.9 % injection 10 mL Start: 07-27-2019 End: 07-28-2019 0.9 % sodium chloride infusi on Start: 07-27-2019 sodium chlorid e flush 0.9 % injection 10 mL Start: 07-24-2019 Intravenous, a t 125 mL/hr, CONTINUOUS, Starting Sat07/24/19 at 0945 Start: 07-24-2019 10 mL, Intrave nous, EVERY 12 HOURS SCHEDULED (2 times per day), First dose on Sat07/24/19 at 0945 Start: 07-24-2019 take 10 mL intraveno us route once as needed 10 mL, Intravenous, PRN, Line Care, After every IV line use, Starting Sat07/24/19 at 0926 Start: 05-14-2019 End: 05-14-2019 0.9 % sodium chloride bolus Start: 05-12-2019 End: 05-12-2019 0.9 % sodium chloride bolus tiZANidine 4 mg oral tablet (20 sources) Central alpha-2 Adrenergic Agonist Start: 12-05-2022 End: 02-03-2023 tiZANidine 4 mg oral tablet Dose : 4 mg = 1 tab(s), Oral, q8h, # 60 tab(s), 2 Refill(s), [facility]: [id number], Tear of right biceps muscle Lumbar paraspinal muscle spasm, 182, cm, 12/05/22 14:35:00 EST, Height, kg, 12/05/22 14:35:00 EST, Dosing Weight Start Date: 12/05/22 Stop Date: 02/03/23 Status: Ordered Start: 05-08-2020 take 4 mg by mouth e very eight hours as needed for muscle spasms 4 mg, Oral, EVERY 8 HOURS PRN, Muscle spasms, Starting 05/08/20 at 2320 Start: 04-27-2020 take 4 mg by mouth t hree times daily 4 mg, Oral, 3 TIMES DAILY, First dose on Sat08/10/20 at 0800 Start: 08-11-2019 tiZANidine (ZA NAFLEX) 4 MG tablet Start: 07-27-2019 End: 08-05-2019 take 4 mg by mouth once daily 4 mg, Oral, NIGHTLY, Fir st dose on 07/27/19 at 2200 Problems Active Problems Problem Classification Problem Date Documented Date Episodic/Chronic Anxiety disorders (20 sources) Posttraumatic stress disorder; Translations: [Anxiety] Onset: 09-06-2023 07-24-2019 Chronic Diverticulosis and diverticulitis (20 sources) Diverticulitis; Translations: [Diverticulosis of sigmoid colon] Onset: 11-04-2018 11-17-2018 Chronic Esophageal disorders (17 sources) Gastroesophageal reflux disease; Translations: [Gastroesophageal reflux disease without esophagitis] Resolved: 10-26-2019 07-29-2019 Chronic Essential hypertension (3 sources) Essential hypertension; Translations: [Benign hypertension] Chronic Impulse control disorders NEC (18 sources) Explosive personality disorder; Translations: [Intermittent explosive disorder] 07-24-2019 Chronic Miscellaneous mental health disorders (18 sources) Multiple personality disorder; 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] 07-24-2019 Chronic Mood disorders (20 sources) Bipolar disorder; Translations: [Recurrent major depressive episodes, moderate ] Onset: 11-29-2009 08-06-2019 Chronic Nutritional deficiencies (5 sources) Nutritional marasmus; Translations: [Severe malnutrition] Onset: 08-10-2020 08-10-2020 Chronic Other injuries and conditions due to external causes (1 source) Wound ; Translations: [Encounter for post surgical wound check] Episodic Other nutritional; endocrine; and metabolic disorders (20 sources) Obesity; Translations: [Class 2 obesity due to excess calories in adult] Onset: 11-05-2018 11-17-2018 Chronic Other nutritional; endocrine; and metabolic disorders (4 sources) Obese class I Onset: 12-05-2018 08-06-2019 Chronic Other nutritional; endocrine; and metabolic disorders (8 sources) Obese class I; Translations: [Obesity (BMI 30.0-34.9)] Onset: 12-05-2018 12-05-2018 Other screening for suspected conditions (not mental disorders or infectious disease) (4 sources) Computed tomography result abnormal 12-05-2018 Chronic Peritonitis and intestinal abscess (1 source) Abdominal abscess; Translations: [Intra-abdominal abscess (HCC)] Episodic Regional enteritis and ulcerative colitis (20 sources) Crohn's disease of colon; Translations: [Crohn's disease] Onset: 12-05-2018 12-27-2018 Chronic Residual codes; unclassified (7 sources) Computed tomography result abnormal; Translations: [Abnormal CT scan, small bowel] 12-05-2018 Episodic Substance-related disorders (15 sources) Smoker; Translations: [Tobacco dependence syndrome] Onset: 10-26-2019 07-29-2019 Chronic Unclassified (11 sources) Drug therapy finding; Translations: [Current use of steroid medication] 12-05-2018 Viral infection (1 source) Viral disease; Translations: [Viral syndrome] Episodic Viral infection (1 source) COVID-19; Translations: [COVID-19] Onset: 11-23-2022 Past or Other Problems Problem Classification Problem Date Documented Da te Episodic/Chronic Abdominal pain (20 sources) Generalized abdominal pain; Translations: [Upper abdominal pain] Onset: 9 12-05-2018 Episodic Fluid and electrolyte disorders (20 sources) Lactic acidosis; Translations: [Lactic acidosis] Onset: 9 Resolved: 0 12-05-2018 Episodic Nausea and vomiting (10 sources) Nausea and vomiting; Translations: [Intractable nausea and vomiting] Onset: 0 05-08-2020 Episodic Noninfectious gastroenteritis (20 sources) Inflammatory bowel disease; Translations: [IBD (inflammatory bowel disease)] Onset: 9 11-17-2018 Episodic Other gastrointestinal disorders (20 sources) Hemorrhagic diarrhea ; Translations: [Bloody diarrhea] Resolved: 0 12-05-2018 Episodic Other gastrointestinal disorders (16 sources) Diarrhea; Translations: [Diarrhea] Resolved: 0 07-29-2019 Episodic Other gastrointestinal disorders (7 sources) Perforation of colon; Translations: [Colon perforation (HCC)] Onset: 0 08-09-2020 Episodic Other screening for suspected conditions (not mental disorders or infectious disease) (6 sources) Imaging of gastrointestinal tract abnormal; Translations: [Imaging of gastrointestinal tract abnormal] 07-29-2019 Episodic Screening and history of mental health and substance abuse codes (7 sources) Personal history of other mental and behavioral disorders; Translations: [History of post-traumatic stress disorder] 08-07-2019 Episodic Results Test Name Value Interpretation Reference Range Facility ABO/Rh (Gel)on 06-29-2024 ABO/Rh Interp Positive Invalid Interpretation Code [facility] Comment on above: Performed By: #### A ECHO ZUNIGA #### [facility] [address] [place], [place] [address] ABS (Gel)on 06-29-2024 ABSC Interp (Gel) Negative Normal [facility] Comment on above: Performed By: #### A ECHO ZUNIGA #### [address] [address] LABORATORYOrdered By: Ross Yip on 06-29-2024 ABO and Rh group Nom (Bld) Blood group O Rh(D) positive Invalid Interpretation Code AO BB Auto SS Blood group antibody screen Ql Negative ABSC (06/29/24 3:15 PM) Normal AO BB Auto SS .Auto Diffon 09-06-2023 Basophil, Absolute 0.1 10 3/mcL Normal 0.0-0.2 [facility] ([place]) Comment on above: Performed By: #### G FR, ADIFF, TROPHS, CBC, ANEU, MDW, CMP #### [address] [address] Basophils/100 WBC (Bld) 0.8 % Normal 0.0-2.5 [facility] ([place]) Comment on above: Performed By: #### G FR, ADIFF, TROPHS, CBC, ANEU, W, CMP #### [address] [address] Eosinophil, Absolute 0.7 10 3/mcL High 0.0-0.4 [facility] ([place]) Comment on above: Performed By: #### G FR, ADIFF, TROPHS, CBC, ANEU, W, CMP #### [address] [address] Eosinophils/100 WBC (Bld) 6.9 % Normal 0.0-7.0 [facility] ([place]) Comment on above: Performed By: #### G FR, ADIFF, TROPHS, CBC, ANEU, MDW, CMP #### [address] [address] Lymphocyte, Absolute 1.7 10 3/mcL Normal 0.8-3.9 [facility] ([place]) Comment on above: Performed By: #### G FR, ADIFF, TROPHS, CBC, ANEU, MDW, CMP #### [address] [address] Lymphocytes/100 WBC (Bld) 17.7 % Normal 10.0-50.0 [facility] ([place]) Comment on above: Performed By: #### G FR, ADIFF, TROPHS, CBC, ANEU, MDW, CMP #### [address] [address] Monocyte, Absolute 0.6 10 3/mcL Normal 0.2-1.0 [facility] ([place] Comment on above: Performed By: #### G FR, ADIFF, TROPHS, CBC, ANEU, MDW, CMP #### [address] [address] Monocytes/100 WBC (Bld) 6.5 % Normal 1.7-13.0 [facility] ([place]) Comment on above: Performed By: #### G FR, ADIFF, TROPHS, CBC, ANEU, MDW, CMP #### [address] [address] Neutrophils/100 WBC (Bld) 68.1 % Normal 37.0-80.0 [facility] ([place] Comment on above: Performed By: #### G FR, ADIFF, TROPHS, CBC, ANEU, MDW, CMP #### [address] [address] .GFRon 09-06-2023 GFR 128 ml/min/1.73sqm Normal [facility] ([place]) Comment on above: Result Comment: GFR Population mean for , Non- Americans Ages 20-29 = 116 mL/min/1.73 sq.m. Ages 30-39 = 107 mL/min/1.73 sq.m. Ages 40-49 = 99 mL/min/1.73 sq.m. Ages 50-59 = 93 mL/min/1.73 sq.m. Ages 60-69 = 85 mL/min/1.73 sq.m. Ages 70+ = 75 mL/min/1.73 sq.m. Chronic Kidney Disease: Less than 60 mL/min/1.73 square meters End Stage Renal Disease: Less than 15 mL/min/1.73 square meters Performed By: #### G FR, ADIFF, TROPHS, CBC, ANEU, MDW, CMP #### [address] [address] GFR Non- 105 ml/min/1.73sqm Normal [facility] ([place]) Comment on above: Result Comment: GFR Population mean for , Non- Americans Ages 20-29 = 116 mL/min/1.73 sq.m. Ages 30-39 = 107 mL/min/1.73 sq.m. Ages 40-49 = 99 mL/min/1.73 sq.m. Ages 50-59 = 93 mL/min/1.73 sq.m. Ages 60-69 = 85 mL/min/1.73 sq.m. Ages 70+ = 75 mL/min/1.73 sq.m. Chronic Kidney Disease: Less than 60 mL/min/1.73 square meters End Stage Renal Disease: Less than 15 mL/min/1.73 square meters Performed By: #### G FR, ADIFF, TROPHS, CBC, ANEU, MDW, CMP #### [place] [address] .MDWon 09-06-2023 Monocyte Distribution Width 17.93 Normal 0.00-20.00 [facility] ([place]) Comment on above: Result Comment: For ED adult patients suspected of sepsis, MDW<=20.0 does not rule out sepsis or risk of sepsis Performed By: #### G FR, ADIFF, TROPHS, CBC, ANEU, MDW, CMP #### [place] [address] .NEUABSon 09-06-2023 Neutrophil, Absolute 6.4 10 3/mcL High 2.9-6.2 [facility] ([place]) Comment on above: Performed By: #### G FR, ADIFF, TROPHS, CBC, ANEU, MDW, CMP #### [place] [address] CBCon 09-06-2023 Erythrocyte distribution width (RBC) [Ratio] 12.9 % Normal 11.5-14.5 [facility] ([place] Comment on above: Performed By: #### G FR, ADIFF, TROPHS, CBC, ANEU, MDW, CMP #### [place] [address] Hematocrit (Bld) [Volume fraction] 45.1 % Normal 42.0-52.0 [facility] ([place]) Comment on above: Performed By: #### G FR, ADOZ, TROPHS, CBC, ARIEL MENDES, CMP #### [address] [address] Hgb 15.2 G/dL Normal 14.0-18.0 [facility] ([place] Comment on above: Performed By: #### G FR, ADIFF, TROPHS, CBC, ARIEL MENDES, CMP #### [address] [address] MCH (RBC) [Entitic mass] 29.2 pg Normal 27.0-31.2 [facility] ([place] Comment on above: Performed By: #### G FR, ADIFF, TROPHS, CBC, ARIEL MENDES, CMP #### [place] [address] MCHC 33.8 G/dL Normal 31.8-35.4 [facility] ([place] Comment on above: Performed By: #### G FR, ADOZ, TROPHS, CBC, ARIEL MENDES, CMP #### [address] [address] MCV (RBC) [Entitic vol] 86.4 fL Normal 80.0-94.0 [facility] ([place] Comment on above: Performed By: #### G FR, ADIFF, TROPHS, CBC, ARIEL MENDES, CMP #### [address] [address] Platelet 256 10 3/mcL Normal 130-400 [facility] ([place] Comment on above: Performed By: #### G FR, ADIFF, TROPHS, CBC, ARIEL MENDES, CMP #### [address] [address] Platelet mean volume (Bld) [Entitic vol] 7.9 fL Normal 7.4-10.4 [facility] ([place] Comment on above: Performed By: #### G FR, ADIFF, TROPHS, CBC, ANEU, MDW, CMP #### [address] [address] RBC 5.22 10 6/mcL Normal 4.04-6.13 [facility] ([place] Comment on above: Performed By: #### G FR, ADIFF, TROPHS, CBC, ANEU, MDW, CMP #### [address] [address] WBC 9.5 10 3/mcL Normal 4.6-10.8 [facility] ([place] Comment on above: Performed By: #### G FR, ADIFF, TROPHS, CBC, ANEU, MDW, CMP #### [address] [address] CMPon 09-06-2023 Albumin Level 3.9 G/dL Normal 3.5-5.0 [facility] ([place] Comment on above: Performed By: #### G FR, ADIFF, TROPHS, CBC, ANEU, MDW, CMP #### [address] [address] Albumin/Globulin [Mass ratio] 1.0 {ratio} Low 1.1-2.5 [facility] ([place]) Comment on above: Performed By: #### G FR, ADIFF, TROPHS, CBC, ANEU, MDW, CMP #### [address] [address] ALP [Catalytic activity/Vol] 85 U/L Normal 40-135 [facility] ([place]) Comment on above: Performed By: #### G FR, ADIFF, TROPHS, CBC, ANEU, MDW, CMP #### [address] [address] ALT [Catalytic activity/Vol] 87 U/L High 16-63 [facility] ([place] Comment on above: Performed By: #### G FR, ADIFF, TROPHS, CBC, ANEU, MDW, CMP #### [address] [address] AST [Catalytic activity/Vol] 45 U/L High 10-40 [facility] ([place] Comment on above: Performed By: #### G FR, ADIFF, TROPHS, CBC, VAUGHN, ARIEL, CMP #### [address] [address] Bili Total 0.6 mg/dL Normal 0.2-1.0 [facility] ([place]) Comment on above: Result Comment: Use of this assay is not recommended for patients undergoing treatment with eltrombopag due to the potential for falsely elevated results. Performed By: #### G FR, ADIFF, TROPHS, CBC, VAUGHN, W, CMP #### [address] [address] BUN/Creatinine Ratio 12 ratio Normal 7-27 [facility] ([place]) Comment on above: Performed By: #### G FR, ADIFF, TROPHS, CBC, VAUGHN, ARIEL, CMP #### [address] [address] Calcium [Mass/Vol] 9.0 mg/dL Normal 8.4-10.2 [facility] ([place]) Comment on above: Performed By: #### G FR, ADIFF, TROPHS, CBC, ARIEL MENDES, CMP #### [address] [address] Chloride [Moles/Vol] 101 mmol/L Normal 98-107 [facility] ([place]) Comment on above: Performed By: #### G FR, ADIFF, TROPHS, CBC, ARIEL MENDES, CMP #### [address] [address] CO2 [Moles/Vol] 27 mmol/L Normal 22-29 [facility] ([place]) Comment on above: Performed By: #### G FR, ADIFF, TROPHS, CBC, ARIEL MENDES, CMP #### [address] [address] Creatinine [Mass/Vol] 0.84 mg/dL Normal 0.70-1.30 [facility] ([place]) Comment on above: Performed By: #### G FR, ADIFF, TROPHS, CBC, MD VAUGHNW, CMP #### [address] [address] Electrolyte Balance 11.0 mEq/L Normal 4.0-15.0 [facility] ([place]) Comment on above: Performed By: #### G FR, ADIFF, TROPHS, CBC, ANEU, MDW, CMP #### [address] [address] Globulin 4.0 G/dL Normal [facility] ([place]) Comment on above: Performed By: #### G FR, ADIFF, TROPHS, CBC, ANEU, MDW, CMP #### [address] [address] Glucose [Mass/Vol] 102 mg/dL Normal 70-105 [facility] ([place]) Comment on above: Performed By: #### G FR, ADIFF, TROPHS, CBC, MD VAUGHNW, CMP #### [address] [address] Potassium [Moles/Vol] 3.7 mmol/L Normal 3.5-5.1 [facility] ([place]) Comment on above: Performed By: #### G FR, ADIFF, TROPHS, CBC, MD VAUGHNW, CMP #### [address] [address] Sodium [Moles/Vol] 139 mmol/L Normal 136-145 [facility] ([place]) Comment on above: Performed By: #### G FR, ADIFF, TROPHS, CBC, ANEU, W, CMP #### [address] [address] Total Protein 7.9 G/dL Normal 6.4-8.2 [facility] ([place]) Comment on above: Performed By: #### G FR, ADIFF, TROPHS, CBC, MD VAUGHNW, CMP #### [address] [address] Urea nitrogen [Mass/Vol] 10 mg/dL Normal 7-18 [facility] ([place]) Comment on above: Performed By: #### G FR, ADIFF, TROPHS, CBC, ANEU, MDW, CMP #### [place] [id number] [place], [place] [address] CT ABD/PELVIS W/ IV CONTRAST ONLYon 09-06-2023 CT ABD/PELVIS W/ IV CONTRAST ONLY ORIGINAL EXAMINATION: CT OF THE ABDOMEN AND PELVIS WITH CONTRAST 09/06/2023 7:05 pm TECHNIQUE: CT of the abdomen and pelvis was performed with the administration of intravenous contrast. Multiplanar reformatted images are provided for review. Automated exposure control, iterative reconstruction, and/or weight based adjustment of the mA/kV was utilized to reduce the radiation dose to as low as reasonably achievable. COMPARISON: None. HISTORY: ORDERING SYSTEM PROVIDED HISTORY: Reason for Exam: Lower abdominal pain, hx of diverticulitis FINDINGS: Lower Chest: No focal consolidation. Organs: Superior aspect of the liver not captured on this exam, otherwise the liver, gallbladder, spleen, pancreas and adrenal glands are unremarkable. Kidneys enhance symmetrically. No hydronephrosis or hydroureter. GI/Bowel: No bowel obstruction, pneumoperitoneum, or ascites. Postsurgical changes of the small and large bowel. Nondilated appendix. Pelvis: Bladder unremarkable. Normal size prostate. Peritoneum/Retroperitoneum: Nonaneurysmal abdominal aorta. No enlarged lymph nodes. Bones/Soft Tissues: No acute osseous abnormality. Anterior abdominal postsurgical changes. IMPRESSION: No acute findings. Interpreted by: Raffaele Laguna Preliminary Report By: Raffaele Laguna Electronically signed By Raffaele Laguna Dictated Date: 09/06/2023 8:36:32 PM Prelim Date: 09/06/2023 8:41:14 PM Sign Date: 09/06/2023 8:41:14 PM Ordering Provider: SOPHIA Loomis [facility] ([place]) LABORATORYOrdered By: SYSTEM SYSTEM on 09-06-2023 Albumin BCP dye [Mass/Vol] 3.9 G/dL Normal 3.5 - 5.0 G/dL AO ADM SS Albumin/Globulin [Mass ratio] 1.0 {ratio} Low 1.1 - 2.5 ratio AO ADM SS ALP [Catalytic activity/Vol] 85 U/L Normal 40 - 135 U/L AO ADM SS ALT With P-5'-P [Catalytic activity/Vol] 87 U/L High 16 - 63 U/L AO ADM SS AST With P-5'-P [Catalytic activity/Vol] 45 U/L High 10 - 40 U/L AO ADM SS Basophil, Absolute 0.1 103/mcL Normal 0.0 - 0.2 10^3/mcL AO Workflow SS Basophils/100 WBC (Bld) 0.8 % Normal 0.0 - 2.5 % AO Workflow SS Bilirubin [Mass/Vol] 0.6 mg/dL Normal 0.2 - 1 .0 mg/dL AO ADM SS Comment on above: Interpretive Data: U se of this assay is not recommended for patients undergoing treatment with eltrombopag due to the potential for falsely elevated results. Calcium [Mass/Vol] 9.0 mg/dL Normal 8.4 - 10. 2 mg/dL AO ADM SS Chloride [Moles/Vol] 101 mmol/L Normal 98 - 10 7 mmol/L AO ADM SS CO2 [Moles/Vol] 27 mmol/L Normal 22 - 29 mmol/L AO ADM SS Creatinine [Mass/Vol] 0.84 mg/dL Normal 0.70 - 1.30 mg/dL AO ADM SS Electrolyte Balance 11.0 mEq/L Normal 4.0 - 15 .0 mEq/L AO ADM SS Eosinophil, Absolute 0.7 103/mcL High 0.0 - 0 .4 10^3/mcL AO Workflow SS Eosinophils/100 WBC (Bld) 6.9 % Normal 0.0 - 7.0 % AO Workflow SS Erythrocyte distribution width (RBC) [Ratio] 12.9 % Normal 11.5 - 14.5 % AO Workflow SS GFR/1.73 sq M.predicted among blacks MDRD (S/P/Bld) [Vol rate/Area] 128 ml/min/1.73sqm Invalid Interpretation Code AO Chemistry S Comment on above: Interpretive Data: GFR Population mean for , Non- Americans Ages 20-29 = 116 mL/min/1.73 sq.m. Ages 30-39 = 107 mL/min/1.73 sq.m. Ages 40-49 = 99 mL/min/1.73 sq.m. Ages 50-59 = 93 mL/min/1.73 sq.m. Ages 60-69 = 85 mL/min/1.73 sq.m. Ages 70+ = 75 mL/min/1.73 sq.m. Chronic Kidney Disease: Less than 60 mL/min/1.73 square meters End Stage Renal Disease: Less than 15 mL/min/1.73 square meters GFR/1.73 sq M.predicted among non-blacks MDRD (S/P/Bld) [Vol rate/Area] 105 ml/min/1.73sqm Invalid Interpretation Code AO Chemistry S Comment on above: Interpretive Data: GFR Population mean for , Non- Americans Ages 20-29 = 116 mL/min/1.73 sq.m. Ages 30-39 = 107 mL/min/1.73 sq.m. Ages 40-49 = 99 mL/min/1.73 sq.m. Ages 50-59 = 93 mL/min/1.73 sq.m. Ages 60-69 = 85 mL/min/1.73 sq.m. Ages 70+ = 75 mL/min/1.73 sq.m. Chronic Kidney Disease: Less than 60 mL/min/1.73 square meters End Stage Renal Disease: Less than 15 mL/min/1.73 square meters Globulin 4.0 G/dL Invalid Interpretation Code AO ADM SS Glucose [Mass/Vol] 102 mg/dL Normal 70 - 105 mg/dL AO ADM SS Hematocrit (Bld) [Volume fraction] 45.1 % Normal 42.0 - 52.0 % AO Workflow SS Hemoglobin (Bld) [Mass/Vol] 15.2 G/dL Normal 14.0 - 18.0 G/dL AO Workflow SS Lymphocyte, Absolute 1.7 103/mcL Normal 0.8 - 3 .9 10^3/mcL AO Workflow SS Lymphocytes/100 WBC (Bld) 17.7 % Normal 10.0 - 50.0 % AO Workflow SS MCH (RBC) [Entitic mass] 29.2 pg Normal 27.0 - 31.2 pg AO Workflow SS MCHC 33.8 G/dL Normal 31.8 - 35.4 G/dL AO Workflow SS MCV (RBC) [Entitic vol] 86.4 fL Normal 80.0 - 94.0 fL AO Workflow SS Monocyte distribution width Auto (Bld) [Entitic vol] 17.93 1 Normal 0.00 - 20.00 AO Workflow SS Comment on above: Result Comment: For ED adult patients suspected of sepsis, MDW<=20.0 does not rule out sepsis or risk of sepsis Monocyte, Absolute 0.6 103/mcL Normal 0.2 - 1.0 10^3/mcL AO Workflow SS Monocytes/100 WBC (Bld) 6.5 % Normal 1.7 - 13.0 % AO Workflow SS Neutrophil, Absolute 6.4 103/mcL High 2.9 - 6 .2 10^3/mcL AO Workflow SS Neutrophils/100 WBC (Bld) 68.1 % Normal 37.0 - 80.0 % AO Workflow SS Platelet mean volume (Bld) [Entitic vol] 7.9 fL Normal 7.4 - 10.4 fL AO Workflow SS Platelets (Bld) [#/Vol] 256 103/mcL Normal 130 - 400 10^3/mcL AO Workflow SS Potassium [Moles/Vol] 3.7 mmol/L Normal 3.5 - 5.1 mmol/L AO ADM SS Protein [Mass/Vol] 7.9 G/dL Normal 6.4 - 8.2 G/dL AO ADM SS RBC (Bld) [#/Vol] 5.22 106/mcL Normal 4.04 - 6.13 10^6/mcL AO Workflow SS Sodium [Moles/Vol] 139 mmol/L Normal 136 - 145 mmol/L AO ADM SS Troponin I.cardiac DL <= 0.01 ng/mL [Mass/Vol] 5.7 ng/L Normal 0.0 - 76.2 ng/L AO ADM SS Urea nitrogen [Mass/Vol] 10 mg/dL Normal 7 - 18 mg/dL AO ADM SS Urea nitrogen/Creatinine [Mass ratio] 12 ratio Normal 7 - 27 ratio AO ADM SS WBC (Bld) [#/Vol] 9.5 103/mcL Normal 4.6 - 10.8 10^3/mcL AO Workflow SS TROPHSon 09-06-2023 Troponin I High Sensitivity 5.7 ng/L Normal 0.0-76.2 [facility] ([place]) Comment on above: Performed By: #### G HAYLEE MORENO TROPHS, CBC, ANEU, MDW, CMP #### [address] [address] XR CHEST 1 VIEWon 09-06-2023 XR CHEST 1 VIEW ORIGINAL EXAMINATION: ONE XRAY VIEW OF THE CHEST 09/06/2023 6:12 pm COMPARISON: None. HISTORY: ORDERING SYSTEM PROVIDED HISTORY: Reason for Exam: chest pain FINDINGS: Cardiomediastinal silhouette is normal in size. Costophrenic angles are sharp. No radiographic pneumothorax. No focal consolidation. Osseous structures unremarkable. IMPRESSION: No focal consolidation. Interpreted by: Raffaele Laguna Preliminary Report By: Raffaele Laguna Electronically signed By Raffaele Laguna Dictated Date: 09/06/2023 6:19:19 PM Prelim Date: 09/06/2023 6:20:15 PM Sign Date: 09/06/2023 6:20:15 PM Ordering Provider: SOPHIA LEA Normal [facility] ([place]) CBC W Auto Differential pane l (Bld)on 11-23-2022 Basophils (Bld) [#/Vol] 10*3/uL Normal <0.11 [facility] Comment on above: Order Comment: Haydee aguirre Type: BLOOD SPECIMEN Ordering Facility: [facility] Address: [address] [place] [address] Performed By: #### 5 7021-8 #### [facility] CLIA [id number] [address] [place] [address] [place] Basophils/100 WBC (Bld) 0.2 % Normal [facility] Comment on above: Order Comment: Haydee aguirre Type: BLOOD SPECIMEN Ordering Facility: [facility] Address: [address] [place] [address] Performed By: #### 5 7021-8 #### [facility] CLIA [id number] [address] [place] [address] [place] Differential cell count method Nom (Bld) Auto Normal [facility] Comment on above: Order Comment: Speci timothy Type: BLOOD SPECIMEN Ordering Facility: [facility] Address: [address] [place] [address] Performed By: #### 5 7021-8 #### [facility] CLIA [id number] [address] [place] [address] [place] Eosinophils (Bld) [#/Vol] 0.51 10*3/uL High <0.46 [facility] Comment on above: Order Comment: Danki timothy Type: BLOOD SPECIMEN Ordering Facility: [facility] Address: [address] [place] [address] Performed By: #### 5 7021-8 #### [facility] CLIA [id number] [address] [place] [address] [place] Eosinophils/100 WBC (Bld) 8.4 % Normal [facility] Comment on above: Order Comment: Speci men Type: BLOOD SPECIMEN Ordering Facility: [facility] Address: [address] [place] [address] Performed By: #### 5 7021-8 #### [facility] CLIA [id number] [address] [place] [address] [place] Erythrocyte distribution width (RBC) [Ratio] 13.1 % Normal 11.5-15.0 [facility] Comment on above: Order Comment: Speci men Type: BLOOD SPECIMEN Ordering Facility: [facility] Address: [address] [place] [address] Performed By: #### 5 7021-8 #### [facility] CLIA [id number] [address] [place] [address] [place] Hematocrit (Bld) [Volume fraction] 47.6 % Normal 39.0-51.0 [facility] Comment on above: Order Comment: Speci men Type: BLOOD SPECIMEN Ordering Facility: [facility] Address: [address] [place] [address] Performed By: #### 5 7021-8 #### [facility] CLIA [id number] [address] [place] [address] [place] Hemoglobin (Bld) [Mass/Vol] 15.9 g/dL Normal 13.0-17.0 [facility] Comment on above: Order Comment: Speci men Type: BLOOD SPECIMEN Ordering Facility: [facility] Address: [address] [place] [address] Performed By: #### 5 7021-8 #### [facility] CLIA [id number] [address] [place] [address] [place] Immature granulocytes (Bld) [#/Vol] 0.05 10*3/uL Normal <0.10 [facility] Comment on above: Order Comment: Speci men Type: BLOOD SPECIMEN Ordering Facility: [facility] Address: [address] [place] [address] Performed By: #### 5 7021-8 #### [facility] CLIA [id number] [address] Immature granulocytes/100 WBC (Bld) 0.8 % Normal [facility] Comment on above: Order Comment: Speci men Type: BLOOD SPECIMEN Ordering Facility: [facility] Address: [address] [place] [address] Performed By: #### 5 7021-8 #### [facility] CLIA [id number] [address] [place] Lymphocytes (Bld) [#/Vol] 0.44 10*3/uL Low 1.00-4.00 [facility] Comment on above: Order Comment: Speci men Type: BLOOD SPECIMEN Ordering Facility: [facility] Address: [address] [place] [address] Performed By: #### 5 7021-8 #### [facility] CLIA [id number] [address] [place] [address] Lymphocytes/100 WBC (Bld) 7.2 % Normal [facility] Comment on above: Order Comment: Speci men Type: BLOOD SPECIMEN Ordering Facility: [facility] Address: [address] [place] [address] Performed By: #### 5 7021-8 #### [facility] CLIA [id number] [address] [place] MCH (RBC) [Entitic mass] 29.3 pg Normal 26.0-34.0 [facility] Comment on above: Order Comment: Speci men Type: BLOOD SPECIMEN Ordering Facility: [facility] Address: [address] [place] [address] Performed By: #### 5 7021-8 #### [facility] CLIA [id number] [address] [place] [address] [place] MCHC (RBC) [Mass/Vol] 33.4 g/dL Normal 30.5-36.0 [facility] Comment on above: Order Comment: Speci men Type: BLOOD SPECIMEN Ordering Facility: [facility] Address: [address] [place] [address] Performed By: #### 5 7021-8 #### [facility] CLIA [id number] [address] [place] MCV (RBC) [Entitic vol] 87.8 fL Normal 80.0-100.0 [facility] Comment on above: Order Comment: Speci men Type: BLOOD SPECIMEN Ordering Facility: [facility] Address: [address] [place] [address] Performed By: #### 5 7021-8 #### [facility] CLIA [id number] [address] [place] Monocytes (Bld) [#/Vol] 0.49 10*3/uL Normal <0.87 [facility] Comment on above: Order Comment: Speci men Type: BLOOD SPECIMEN Ordering Facility: [facility] Address: [address] [place] [address] Performed By: #### 5 7021-8 #### [facility] CLIA [id number] [address] [place] [address] Monocytes/100 WBC (Bld) 8.0 % Normal [facility] Comment on above: Order Comment: Speci men Type: BLOOD SPECIMEN Ordering Facility: [facility] Address: [address] [place] [address] Performed By: #### 5 7021-8 #### [facility] CLIA [id number] [address] [place] Neutrophils (Bld) [#/Vol] 4.59 10*3/uL Normal 1.45-7.50 [facility] Comment on above: Order Comment: Speci men Type: BLOOD SPECIMEN Ordering Facility: [facility] Address: [address] [place] [address] Performed By: #### 5 7021-8 #### [facility] CLIA [id number] [address] [place] [address] [facility] Neutrophils/100 WBC (Bld) 75.4 % Normal [facility] Comment on above: Order Comment: Speci men Type: BLOOD SPECIMEN Ordering Facility: [facility] Address: [address] [place] [address] Performed By: #### 5 7021-8 #### [facility] CLIA [id number] [address] [place] [address] [place] Nucleated RBC (Bld) [#/Vol] Normal [facility] Comment on above: Order Comment: Speci men Type: BLOOD SPECIMEN Ordering Facility: [facility] Address: [address] [place] [address] Performed By: #### 5 7021-8 #### [facility] CLIA [id number] [address] [place] [address] [place] Nucleated RBC/100 WBC (Bld) [Ratio] Normal [facility] Comment on above: Order Comment: Speci men Type: BLOOD SPECIMEN Ordering Facility: [facility] Address: [address] [place] [address] Performed By: #### 5 7021-8 #### [facility] CLIA [id number] [address] [place] [address] [place] Platelet mean volume (Bld) [Entitic vol] 10.4 fL Normal 9.0-12.7 [facility] Comment on above: Order Comment: Speci men Type: BLOOD SPECIMEN Ordering Facility: [facility] Address: [address] [place] [address] Performed By: #### 5 7021-8 #### [facility] CLIA [id number] [address] [place] [address] [place] Platelets (Bld) [#/Vol] 186 10*3/uL Normal 150-400 [facility] Comment on above: Order Comment: Speci men Type: BLOOD SPECIMEN Ordering Facility: [facility] Address: [address] [place] [address] Performed By: #### 5 7021-8 #### [facility] CLIA [id number] [address] [place] [address] [place] RBC (Bld) [#/Vol] 5.42 10*6/uL Normal 4.20-6.00 [facility] Comment on above: Order Comment: Speci men Type: BLOOD SPECIMEN Ordering Facility: [facility] Address: [address] [place] [address] Performed By: #### 5 7021-8 #### [facility] CLIA [id number] [address] [place] [address] WBC (Bld) [#/Vol] 6.09 10*3/uL Normal 3.70-11.00 [facility] Comment on above: Order Comment: Speci men Type: BLOOD SPECIMEN Ordering Facility: [facility] Address: [address] [place] [address] Performed By: #### 5 7021-8 #### [facility] CLIA [id number] [address] [place] [address] [facility] CK SerPl-cCncon 11-23-2022 CK [Catalytic activity/Vol] 149 U/L Normal 51-298 [facility] Comment on above: Order Comment: Speci men Type: BLOOD SPECIMEN Ordering Facility: [facility] Address: [address] [place] [address] Performed By: #### 2 157-6, 54435-7, 20749-3, 91009-6 #### [facility] CLIA [id number] [address] [place] [address] [facility] Comprehensive metabolic 2000 panelon 11-23-2022 Albumin [Mass/Vol] 4.6 g/dL Normal 3.9-4.9 [facility] Comment on above: Order Comment: Speci men Type: BLOOD SPECIMEN Ordering Facility: [facility] Address: [address] [place] [address] Performed By: #### 2 157-6, 30420-7, 94470-2, 87184-9 #### [facility] CLIA [id number] [address] [place] [address] [place] ALP [Catalytic activity/Vol] 72 U/L Normal 38-113 [facility] Comment on above: Order Comment: Speci men Type: BLOOD SPECIMEN Ordering Facility: [facility] Address: [address] [place] [address] Performed By: #### 2 157-6, 49302-8, 55453-1, 19602-7 #### [facility] CLIA [id number] [address] [place] [employer], [place] [address] [place] [address] [place] ALT With P-5'-P [Catalytic activity/Vol] 54 U/L Normal 10-54 [facility] Comment on above: Order Comment: Speci men Type: BLOOD SPECIMEN Ordering Facility: [facility] Address: [address] [place] [address] Performed By: #### 2 157-6, 47271-3, 04800-5, 91813-7 #### [facility] CLIA [id number] [address] [place] [address] [place] Anion gap [Moles/Vol] 11 mmol/L Normal 9-18 [facility] Comment on above: Order Comment: Speci men Type: BLOOD SPECIMEN Ordering Facility: [facility] Address: [address] [place] [address] Performed By: #### 2 157-6, 82818-6, 67754-4, 15790-7 #### [facility] CLIA [id number] [address] [place] [address] [place] AST With P-5'-P [Catalytic activity/Vol] 37 U/L Normal 14-40 [facility] Comment on above: Order Comment: Speci men Type: BLOOD SPECIMEN Ordering Facility: [facility] Address: [address] [address] Performed By: #### 2 157-6, 70119-9, 29452-0, 14559-8 #### [facility] CLIA [id number] [address] [place] [address] [place] Bilirubin [Mass/Vol] 0.4 mg/dL Normal 0.2-1.3 [facility] Comment on above: Order Comment: Speci men Type: BLOOD SPECIMEN Ordering Facility: [facility] Address: [address] [address] Performed By: #### 2 157-6, 27461-8, 51406-1, 67541-7 #### [facility] CLIA [id number] [address] [place] [address] [place] Calcium [Mass/Vol] 9.0 mg/dL Normal 8.5-10.2 [facility] Comment on above: Order Comment: Speci men Type: BLOOD SPECIMEN Ordering Facility: [facility] Address: [address] [address] Performed By: #### 2 157-6, 38666-7, 34962-6, 02478-3 #### [facility] CLIA [id number] [address] [place] [address] [place] Chloride [Moles/Vol] 101 mmol/L Normal 97-105 [facility] Comment on above: Order Comment: Speci men Type: BLOOD SPECIMEN Ordering Facility: [facility] Address: [address] [address] Performed By: #### 2 157-6, 56049-8, 38245-9, 79857-1 #### [facility] CLIA [id number] [address] [place] [address] [place] CO2 [Moles/Vol] 26 mmol/L Normal 22-30 [facility] Comment on above: Order Comment: Speci men Type: BLOOD SPECIMEN Ordering Facility: [facility] Address: [address] [address] Performed By: #### 2 157-6, 88361-9, 86369-5, 43581-8 #### [facility] CLIA [id number] [address] [place] [address] [place] Creatinine [Mass/Vol] 0.93 mg/dL Normal 0.73-1.22 [facility] Comment on above: Order Comment: Haydee aguirre Type: BLOOD SPECIMEN Ordering Facility: [facility] Address: [address] [place] [address] Performed By: #### 2 157-6, 81773-9, 76010-9, 27577-9 #### [facility] CLIA [id number] [address] [place] [address] [place] ESTIMATED GLOMERULAR FILTRATION RATE 112 mL/min/1.73m??? Normal >=60 [facility] Comment on above: Order Comment: Haydee aguirre Type: BLOOD SPECIMEN Ordering Facility: [facility] Address: [address] [place] [address] Result Comment: Nica mated Glomerular Filtration Rate (eGFR) is calculated using the 2020 CKD-EPI creatinine equation. This equation utilizes serum creatinine, sex, and age as parameters. The creatinine assay has traceable calibration to isotope dilution-mass spectrometry. Refer to KDIGO guidelines for clinical interpretation. In patients with unstable renal function, e.g. those with acute kidney injury, the eGFR may not accurately reflect actual GFR. Performed By: #### 2 157-6, 73714-0, 60286-6, 40479-8 #### [facility] CLIA [id number] [address] [place] [address] [place] Glucose [Mass/Vol] 91 mg/dL Normal 74-99 [facility] Comment on above: Order Comment: Haydee aguirre Type: BLOOD SPECIMEN Ordering Facility: [facility] Address: [address] [place] [address] Result Comment: The [place] [employer] (ADA) provides guidance for cutoff values for fasting glucose and random glucose. The ADA defines fasting as no caloric intake for at least 8 hours. Fasting plasma glucose results between 100 to 125 mg/dL indicate increased risk for diabetes (prediabetes). Fasting plasma glucose results greater than or equal to 126 mg/dL meet the criteria for diagnosis of diabetes. In the absence of unequivocal hyperglycemia, results should be confirmed by repeat testing. In a patient with classic symptoms of hyperglycemia or hyperglycemic crisis, random plasma glucose results greater than or equal to 200 mg/dL meet the criteria for diagnosis of diabetes. Reference: Standards of Medical Care in Diabetes 2016, [place] [employer]. Diabetes Care. 2016.39(Suppl 1). Performed By: #### 2 157-6, 69007-4, 02085-1, 48731-3 #### [facility] CLIA [id number] [address] [place] [address] [place] Potassium [Moles/Vol] 3.6 mmol/L Low 3.7-5.1 [facility] Comment on above: Order Comment: Haydee aguirre Type: BLOOD SPECIMEN Ordering Facility: [facility] Address: [address] [place] [address] Performed By: #### 2 157-6, 21285-6, 59774-5, 87821-6 #### [facility] CLIA [id number] [address] [place] [address] [place] Protein [Mass/Vol] 7.7 g/dL Normal 6.3-8.0 [facility] Comment on above: Order Comment: Haydee aguirre Type: BLOOD SPECIMEN Ordering Facility: [facility] Address: [address] [place] [address] Performed By: #### 2 157-6, 47599-8, 85490-6, 44742-7 #### [facility] CLIA [id number] [address] [place] [address] [place] Sodium [Moles/Vol] 138 mmol/L Normal 136-144 [facility] Comment on above: Order Comment: Haydee aguirre Type: BLOOD SPECIMEN Ordering Facility: [facility] Address: [address] [place] [address] Performed By: #### 2 157-6, 98805-8, 36309-0, 66222-5 #### [facility] CLIA [id number] [address] [place] [address] [place] Urea nitrogen [Mass/Vol] 13 mg/dL Normal 06-23 [facility] Comment on above: Order Comment: Speci men Type: BLOOD SPECIMEN Ordering Facility: [facility] Address: [facility] [place] [address] Performed By: #### 2 157-6, 04321-1, 86405-3, 89471-3 #### [facility] CLIA [id number] [address] [place] [address] [facility] ECG COMPLETEon 11-23-2022 ECG COMPLETE Ventricular Rate : 7 1 BPM Atrial Rate : 71 BPM P-R Interval : 138 ms QRS Duration : 96 ms Q-T Interval : 372 ms QTC Calculation(Bazett) : 404 ms Calculated P Gunlock : 29 degrees Calculated R Gunlock : -49 degrees Calculated T Gunlock : 31 degrees NORMAL SINUS RHYTHM INCOMPLETE RIGHT BUNDLE BRANCH BLOCK LEFT AXIS DEVIATION CANNOT RULE OUT ANTERIOR INFARCT , AGE UNDETERMINED ABNORMAL ECG WHEN COMPARED WITH ECG OF 22-SEP-2018 09:05, NO SIGNIFICANT CHANGE WAS FOUND Confirmed by MD ZAPATA VINAYAK ([id number]) on 11/29/2022 10:21:49 PM NAME : RUTHIE CASTILLO PID : [id number] : 1990 Gender : Male Race : ORD : [id number] Procedure Date : Nov 23 2022 19:20:31 Edit Date : Nov 29 2022 22:21:55 Diagnosis: NORMAL SINUS RHYTHM INCOMPLETE RIGHT BUNDLE BRANCH BLOCK LEFT AXIS DEVIATION CANNOT RULE OUT ANTERIOR INFARCT , AGE UNDETERMINED ABNORMAL ECG WHEN COMPARED WITH ECG OF 22-SEP-2018 09:05, NO SIGNIFICANT CHANGE WAS FOUND Confirmed by MD ZAPATA VINAYAK ([id number]) on 11/29/2022 10:21:49 PM Test Reason : Shortness of Breath Location : 150 : [facility] Overread By : MD ZAPATA VINAYAK Edited By : MD ZAPATA VINAYAK Referred By : , Acquired by : RAAD KAPLAN [facility] ED NOTEon 11-23-2022 ED NOTE HNO ID: [id number] Author: Kristen Guadarrama RN Service: Emergency Medicine Author Type: Registered Nurse Type: ED Notes Filed: 11/23/2022 8:34 PM Note Text: Reviewed dc orders with pt, no new scripts given. Pt verbalized understanding, denies any further needs. Ambulatory with steady gait for dc home per family. [facility] ED NOTE HNO ID: [id number] Author: Kristen Guadarrama RN Service: Emergency Medicine Author Type: Registered Nurse Type: ED Notes Filed: 11/23/2022 8:10 PM Note Text: Patient informed: the name of medication, why we are giving it, possible side effects, what they may expect to feel, and was offered a chance to ask questions, prior to the administration of tylenol [facility] ED NOTE HNO ID: [id number] Author: Joanna Cross RN Service: Nursing Author Type: Registered Nurse Type: ED Notes Filed: 11/23/2022 6:59 PM Note Text: Report to JUANA Peterson [facility] ED NOTE HNO ID: [id number] Author: Joanna Cross RN Service: Nursing Author Type: Registered Nurse Type: ED Notes Filed: 11/23/2022 6:40 PM Note Text: Pt arrives with report I think I have COVID , pt reports loss of taste, hip pain, hypertension, SOB with exertion. Pt had exposure to cousin that was not feeling well and has family members that tested positive. [facility] ED PROV NOTEon 11-23-2022 ED PROV NOTE HNO ID: [id number] Author: Erik Rutledge MD Service: Emergency Medicine Author Type: Physician Type: ED Provider Notes Filed: 11/23/2022 9:08 PM Note Text: ED Provider Note Patient Name: Ruthie Castillo : 1990 SERVICE DATE: 11/23/22 History Patient presents with: Flu Like Symptoms Hypertension Shortness of Breath This is a 32-year-old white male with a chief complaint of I think I have COVID . Patient states that he feels generally ill with fatigue loss of taste generalized myalgias shortness of breath with exertion and feeling like I got hit by a truck . Patient states he was exposed to a cousin who is sick with similar symptoms approximately a day before he came down with symptoms. This person tested negative for COVID but their children tested positive for COVID. Patient's symptoms have been going on since yesterday. He also has lack of appetite and generalized fatigue. No other sick contacts no travel no documented fever. No nausea vomiting or diarrhea. No abdominal pain no chest pain. He also complains that his blood pressure has been elevated since all of this. He states it normally runs in the 120s over 80s range although he has had elevated blood pressure in the past but over the last day its gotten up into the 140s and sometimes 170s systolic. PAST MEDICAL HISTORY Diagnosis Date Adjustment disorder with depressed mood Attention deficit disorder with hyperactivity(314.01) Bipolar I disorder, most recent episode (or current) unspecified Crohn's disease (HCC) Diverticulitis Hypertension IBS (irritable bowel syndrome) Manic depression (HCC) PMH - PAST MEDICAL HISTORY OF SKULL FRACTURE @ 2YEARS OF AGE PMH - PAST MEDICAL HISTORY OF LEFT ARM FRACTURE @ 13 YEAR OF AGE Problems with learning PTSD (post-traumatic stress disorder) Snoring PAST SURGICAL HISTORY Procedure Laterality Date COLONOSCOPY 09/15/2014 hemorrhoids COLONOSCOPY 08/2018 PAST SURGICAL HISTORY OF 2007 9 plantar warts right foot PAST SURGICAL HISTORY OF 2011 testicular FAMILY HISTORY Problem Relation Age of Onset Breast Cancer Mother other (FIBROMYLAGIA) Mother other (OSTEOARHTRITIS) Mother other (DISASSOCIATIVE IDENTITY DISORDER) Mother other (CONVERSION DISORDER) Mother SEIZURE D/T THIS Asthma Maternal Grandmother COPD Maternal Grandmother Heart Maternal Grandfather 72 colon cancer Social History Tobacco Use Smoking status: Every Day Packs/day: 0.50 Years: 1.00 Pack years: 0.50 Types: Cigarettes Smokeless tobacco: Former Vaping Use Vaping Use: Never used Substance and Sexual Activity Alcohol use: Not Currently Drug use: Yes Types: Marijuana Comment: medical, twice a day Sexual activity: Not on file ALLERGIES Allergen Reactions Beta Blockers [Beta* Contraindication-Medical Surgical Avoid use of beta blockers as patient is on venom immunotherapy Bees Anaphylaxis Compazine [Prochlor* Intolerance lock jaw Dextromethorphan Hbr Anaphylaxis Mushroom Combinatio* Hives Nyquil [Doxylamin-P* Shortness of Breath Poison Mimi Rash Pseudoephedrine Anaphylaxis Review of Systems All other systems reviewed and are negative. Physical Exam Vitals [11/23/22 1834] BP Pulse Temp Temp src Resp SpO2 Weight Height 175/107 84 37.1 ?C (98.7 ?F) Temporal 21 99 % 124.3 kg (274 lb) 1.829 m (6') Physical Exam Vitals and nursing note reviewed. Constitutional: Appearance: He is well-developed. He is not toxic-appearing or diaphoretic. HENT: Head: Normocephalic and atraumatic. Right Ear: Tympanic membrane, ear canal and external ear normal. Left Ear: Tympanic membrane, ear canal and external ear normal. Mouth/Throat: Mouth: Mucous membranes are moist. Mucous membranes are not dry. Pharynx: Uvula midline. No oropharyngeal exudate or posterior oropharyngeal erythema. Comments: Minimal pharyngeal erythema without exudate Eyes: General: No scleral icterus. Extraocular Movements: Extraocular movements intact. Conjunctiva/sclera: Conjunctivae normal. Right eye: Right conjunctiva is not injected. Left eye: Left conjunctiva is not injected. Pupils: Pupils are equal, round, and reactive to light. Neck: Vascular: No JVD. Cardiovascular: Rate and Rhythm: Normal rate and regular rhythm. Pulses: Normal pulses. Heart sounds: Normal heart sounds. No murmur heard. No friction rub. No gallop. Pulmonary: Effort: Pulmonary effort is normal. No respiratory distress. Breath sounds: Normal breath sounds. No stridor. No wheezing, rhonchi or rales. Abdominal: General: Bowel sounds are normal. There is no distension. Palpations: Abdomen is soft. Tenderness: There is no abdominal tenderness. There is no right CVA tenderness or left CVA tenderness. Musculoskeletal: General: No swelling or tenderness. Cervical back: Neck supple. Right lower leg: No tenderness. No edema. Left lower leg: No tenderne (more content not included)... Normal [facility] FLUABV+SARS-CoV-2+RSV Pnl Re sp CORINA+probeon 11-23-2022 FLUABV+SARS-CoV-2+RSV Pnl Resp CORINA+probe COVID 19 RESULT: Detected The method used is RT-PCR or an equivalent NAAT method. Reference Range(the expected result in uninfected individuals): Not detected INFLUENZA A PCR: Not detected INFLUENZA B PCR: Not detected RSV PCR: Not detected Abnormal [facility] Comment on above: Performed By: #### 9 5941-1 #### [facility] CLIA [id number] [address] [place] [address] [facility] HIGH SENSITIVITY TROPONIN T (INITIAL)on 11-23-2022 HIGH SENSITIVITY STEFANIE <6 Normal <12 [facility] Comment on above: Order Comment: Haydee aguirre Type: BLOOD SPECIMENOrdering Facility: [facility] Address: [address] [place] [address] Result Comment: When assessing risk for acute coronary syndromes: In patients undergoing blood draw greater than or equal to 2 hours from symptom onset, with history of very low to moderate risk and non-ischemic ECG, an initial hs-Troponin T less than 12 ng/L AND a 1 hour delta hs-Troponin T less than 3 ng/L should be considered very low risk for 30 day MACE. Performed By: #### L [id number] ####[facility] [id number] [address] Magnesium SerPl[facility] Magnesium [Mass/Vol] 1.9 mg/dL Normal 1.7-2.3 [facility] Comment on above: Order Comment: Haydee aguirre Type: BLOOD SPECIMENOrdering Facility: [facility] Address: [address] [place] [address] Performed By: #### 2 157-6, 05286-4, 88840-3, 41598-0 ####[facility] [id number] [address] NT-proBNP SerPl-ncon 11-23 Natriuretic peptide.B prohormone N-Terminal [Mass/Vol] 100 pg/mL Normal <125 [facility] Comment on above: Order Comment: Haydee aguirre Type: BLOOD SPECIMENOrdering Facility: [facility] Address: [place] [address] Performed By: #### 2 157-6, 10622-5, 54722-4, 97917-9 ####[facility] [id number] [place] [id number] [place] XR CHEST 2V FRONTAL/LATon XR CHEST 2V FRONTAL/LAT * * *Final Report* * * DATE OF EXAM: Nov 23 2022 7:45PM LDX 5291 - XR CHEST 2V FRONTAL/LAT / PROCEDURE REASON: Shortness of breath * * * * Physician Interpretation * * * * EXAM: XR CHEST 2V FRONTAL/LAT Exam Date/Time: 11/23/2022 7:45 PM CLINICAL HISTORY: Shortness of breath Comparison: No available prior. RESULT: Lines, tubes, and devices: None. Lungs and pleura: Bilateral lung bhatt are clear. No pneumothorax or suggestion for obvious/significant pleural effusions. Cardiomediastinal silhouette: Normal cardiomediastinal silhouette. IMPRESSION: No acute cardiopulmonary process. Storage And Backup Administrator: PSCB Transcribe Date/Time: Nov 23 2022 7:47P Dictated by : NURIA SULLIVAN MD This examination was interpreted and the report reviewed and electronically signed by: NURIA SULLIVAN MD on Nov 23 2022 7:47PM EST [id number] Normal [facility] Basic Metabolic Panelon 03-0 Calcium [Mass/Vol] 8.7 mg/dL Normal 8.4-10.4 [facility] Comment on above: Performed By: #### Jimmy SALAZAR3M, HEMDF ####[facility] [address] [place] [address] Glucose [Mass/Vol] 92 mg/dL Normal 70-100 [facility] Comment on above: Performed By: #### Jimmy MP3M, HEMDF ####[facility] [address] [place] [address] Urea nitrogen [Mass/Vol] 13 mg/dL Normal 7-20 [facility] Comment on above: Performed By: #### Jimmy MP3M, HEMDF ####[facility] [address] [place] [address] Anion gap [Moles/Vol] 9 mmol/L Normal 3-13 [facility] Comment on above: Performed By: #### B MP3M, HEMDF ####[facility] [address] [place] [address] CO2 [Moles/Vol] 26 mmol/L Normal 22-30 [facility] Comment on above: Performed By: #### B MP3M, HEMDF ####[employer] [place], [place] Creatinine [Mass/Vol] 0.79 mg/dL Normal 0.52-1.25 [facility] Comment on above: Performed By: #### B MP3M, HEMDF ####[employer] [place] eGFR OTHER > 90.0 Normal >60 [facility] Comment on above: Result Comment: KDIG O guidelines provide the following GFR categories: Stage GFR(ml/min/1.73 m2) Terms G1 >=90 Normal or high G2 60-89 Mildly decreased* G3a 45-59 Mildly to moderately decreased G3b 30-44 Moderately to severely decreased G4 15-29 Severely decreased G5 <15 Kidney failure *Relative to young adult level. In the absence of evidence of kidney damage, neither GFR category G1 nor G2 fulfill the criteria for CKD. The CKD-EPI equation is validated in individuals 18 years of age and older. Currently the best equation for estimating glomerular filtration rate (GFR) from serum creatinine in children is the Bedside Pratt equation. It is less accurate in patients with extremes of muscle mass, restriction of dietary protein, ingestion of creatine, extra-renal metabolism of creatinine, or treatment with medications that affect renal tubular creatinine secretion. Performed By: #### Jimmy SALAZAR3Vika HEMDF ####[employer] [place] GFR/1.73 sq M.predicted among blacks MDRD (S/P/Bld) [Vol rate/Area] mL/min/{1.73_m2} Normal >60 [facility] Comment on above: Performed By: #### B MP3M, HEMDF ####[employer] [place] Potassium [Moles/Vol] 3.8 mmol/L Normal 3.5-5.1 [facility] Comment on above: Performed By: #### B MP3M, HEMDF ####[employer] [place], [place] Chloride [Moles/Vol] 102 mmol/L Normal 98-107 [facility] Comment on above: Performed By: #### Jimmy SALAZAR3Vika, HEMDF ####[place] [address] [place], [place] Sodium [Moles/Vol] 138 mmol/L Normal 135-145 [facility] Comment on above: Performed By: #### Jimmy SALAZAR3Vika, HEMDF ####[place] [address] [place], [place] Hemogram w/ Autodiffon 11-28 Abs Baso Cnt 0.1 10*3/uL Normal 0.0-0.2 [facility] Comment on above: Performed By: #### Jimmy SALAZAR3Vika, HEMDF ####[place] [address] [place], [place] Abs Neutrophile Cnt 6.8 10*3/uL Normal 1.8-7.0 [facility] Comment on above: Performed By: #### Jimmy SALAZAR3Vika, HEMDF ####[place] [place], [place] Basophils/100 WBC (Bld) 0.5 % Normal 0.0-2.0 [facility] Comment on above: Performed By: #### Jimmy SALAZAR3Vika, HEMDF ####[place] [address] [place], [place] Eosinophils (Bld) [#/Vol] 0.5 10*3/uL Normal 0.0-0.5 [facility] Comment on above: Performed By: #### Jimmy MP3M, HEMDF ####[place] [address] [place], [place] Eosinophils/100 WBC (Bld) 4.5 % Normal 1.0-6.0 [facility] Comment on above: Performed By: #### Jimmy MP3M, HEMDF ####[place] [address] [place], [place] Erythrocyte distribution width (RBC) [Ratio] 14.7 % High 11.5-14.5 [facility] Comment on above: Performed By: #### Jimmy MP3M, HEMDF ####[place] [place], [place] Granulocytes/100 WBC (Bld) 67.6 % Normal 40.0-80.0 [facility] Comment on above: Performed By: #### B MP3M, HEMDF ####[place] [place], [place] Hematocrit (Bld) [Volume fraction] 31.4 % Low 40.0-52.0 [facility] Comment on above: Performed By: #### B MP3M, HEMDF ####[place] [address] [place], [place] Hemoglobin (Bld) [Mass/Vol] 10.4 g/dL Low 13.0-18.0 [facility] Comment on above: Performed By: #### B MP3M, HEMDF ####[place] [address] [place], [place] Lymphocytes (Bld) [#/Vol] 2.1 10*3/uL Normal 1.0-4.3 [facility] Comment on above: Performed By: #### B MP3M, HEMDF ####[place] [address] [place], [place] Lymphocytes/100 WBC (Bld) 20.9 % Normal 20.0-40.0 [facility] Comment on above: Performed By: #### B MP3M, HEMDF ####[place] [address] [place], [place] MCH (RBC) [Entitic mass] 26.7 pg Normal 26.0-34.0 [facility] Comment on above: Performed By: #### B MP3M, HEMDF ####[place] [address] [place], [place] MCHC 33.0 % Normal 32.0-36.0 [facility] Comment on above: Performed By: #### B MP3M, HEMDF ####[place] [address] [place], [place] MCV (RBC) [Entitic vol] 80.8 fL Normal 80.0-98.0 [facility] Comment on above: Performed By: #### B MP3M, HEMDF ####[place] [place], [place] Monocytes (Bld) [#/Vol] 0.7 10*3/uL Normal 0.0-0.8 [facility] Comment on above: Performed By: #### B MP3M, HEMDF ####[place] [place], [place] Monocytes/100 WBC (Bld) 6.5 % Normal 2.0-10.0 [facility] Comment on above: Performed By: #### B MP3Vika, HEMDF ####[place] [place], [place] Platelet mean volume (Bld) [Entitic vol] 8.3 fL Normal 7.4-10.4 [facility] Comment on above: Performed By: #### Jimmy MP3Vika, HEMDF ####[place] [address] [place], [place] Platelets (Bld) [#/Vol] 320 10*3/uL Normal 140-440 [facility] Comment on above: Performed By: #### Jimmy MP3Vika, HEMDF ####[place] [address] [place], [place] RBC (Bld) [#/Vol] 3.89 10*6/uL Low 4.40-5.90 [facility] Comment on above: Performed By: #### B MP3M, HEMDF ####[place] [place], [place] WBC (Bld) [#/Vol] 10.0 10*3/uL Normal 3.6-10.7 [facility] Comment on above: Performed By: #### B MP3M, HEMDF ####[place] [place], [place] Basic Metabolic Panelon 02-2 Anion gap [Moles/Vol] 9 mmol/L Normal 3-13 [facility] Comment on above: Performed By: #### B MP3M, HEMDF #### [facility] [address] [place] [address] Calcium [Mass/Vol] 9.0 mg/dL Normal 8.4-10.4 [facility] Comment on above: Performed By: #### B MP3M, HEMDF #### [facility] [address] [place] [address] CO2 [Moles/Vol] 27 mmol/L Normal 22-30 [facility] Comment on above: Performed By: #### B MP3M, HEMDF #### [facility] [address] [place] [address] Glucose [Mass/Vol] 73 mg/dL Normal 70-100 [facility] Comment on above: Performed By: #### B MP3M, HEMDF #### [facility] [address] [place], [place] Urea nitrogen [Mass/Vol] 11 mg/dL Normal 7-20 [facility] Comment on above: Performed By: #### B MP3M, HEMDF #### [facility] [address] [place] [address] Creatinine [Mass/Vol] 0.70 mg/dL Normal 0.52-1.25 [facility] Comment on above: Performed By: #### B MP3M, HEMDF #### [facility] [address] [place], [place] eGFR OTHER > 90.0 Normal >60 [facility] Comment on above: Result Comment: KDIG O guidelines provide the following GFR categories: Stage GFR(ml/min/1.73 m2) Terms G1 >=90 Normal or high G2 60-89 Mildly decreased* G3a 45-59 Mildly to moderately decreased G3b 30-44 Moderately to severely decreased G4 15-29 Severely decreased G5 <15 Kidney failure *Relative to young adult level. In the absence of evidence of kidney damage, neither GFR category G1 nor G2 fulfill the criteria for CKD. The CKD-EPI equation is validated in individuals 18 years of age and older. Currently the best equation for estimating glomerular filtration rate (GFR) from serum creatinine in children is the Bedside Pratt equation. It is less accurate in patients with extremes of muscle mass, restriction of dietary protein, ingestion of creatine, extra-renal metabolism of creatinine, or treatment with medications that affect renal tubular creatinine secretion. Performed By: #### B MP3M, HEMDF #### [facility] [address] [place], [place] GFR/1.73 sq M.predicted among blacks MDRD (S/P/Bld) [Vol rate/Area] mL/min/{1.73_m2} Normal >60 [facility] Comment on above: Performed By: #### B MP3M, HEMDF #### [facility] [address] [place], [place] Potassium [Moles/Vol] 3.8 mmol/L Normal 3.5-5.1 [facility] Comment on above: Performed By: #### B MP3M, HEMDF #### [place] [address] [place], [place] Sodium [Moles/Vol] 139 mmol/L Normal 135-145 [facility] Comment on above: Performed By: #### B MP3M, HEMDF #### [place] [address] [address] [place], [place] Chloride [Moles/Vol] 104 mmol/L Normal 98-107 [facility] Comment on above: Performed By: #### B MP3M, HEMDF #### [place] [address] [address] [place], [place] Hemoglobin AND Hematocriton 11-27-2020 Hematocrit (Bld) [Volume fraction] 34.8 % Low 40.0-52.0 [facility] Comment on above: Performed By: #### H GHCT ####[id number] [place], [place] Hemoglobin (Bld) [Mass/Vol] 11.5 g/dL Low 13.0-18.0 [facility] Comment on above: Performed By: #### H GHCT ####[address] [place], [place] Hemogram w/ Autodiffon 11-27 Abs Baso Cnt 0.0 10*3/uL Normal 0.0-0.2 [facility] Comment on above: Performed By: #### B MP3M, HEMDF #### [place] [address] [place] Abs Neutrophile Cnt 7.3 10*3/uL High 1.8-7.0 [facility] Comment on above: Performed By: #### B MP3M, HEMDF #### [place] [address] [place] Basophils/100 WBC (Bld) 0.4 % Normal 0.0-2.0 [facility] Comment on above: Performed By: #### B MP3M, HEMDF #### [address] Eosinophils (Bld) [#/Vol] 0.1 10*3/uL Normal 0.0-0.5 [facility] Comment on above: Performed By: #### B MP3M, HEMDF #### [place] [address] [place] Eosinophils/100 WBC (Bld) 1.0 % Normal 1.0-6.0 [facility] Comment on above: Performed By: #### B MP3Vika, HEMDF #### [address] Erythrocyte distribution width (RBC) [Ratio] 15.0 % High 11.5-14.5 [facility] Comment on above: Performed By: #### B MP3M, HEMDF #### [place] [address] [address] [place], [place] Granulocytes/100 WBC (Bld) 70.8 % Normal 40.0-80.0 [facility] Comment on above: Performed By: #### B MP3M, HEMDF #### [address] Hematocrit (Bld) [Volume fraction] 34.9 % Low 40.0-52.0 [facility] Comment on above: Performed By: #### B MP3M, HEMDF #### [place] [address] [place], [place] Hemoglobin (Bld) [Mass/Vol] 11.2 g/dL Low 13.0-18.0 [facility] Comment on above: Performed By: #### B MP3M, HEMDF #### [facility] [address] [place], [place] Lymphocytes (Bld) [#/Vol] 2.3 10*3/uL Normal 1.0-4.3 [facility] Comment on above: Performed By: #### B MP3M, HEMDF #### [place] [address] [address] [place], [place] Lymphocytes/100 WBC (Bld) 22.7 % Normal 20.0-40.0 [facility] Comment on above: Performed By: #### B MP3M, HEMDF #### [place] [address] [address] [place], [place] MCH (RBC) [Entitic mass] 26.4 pg Normal 26.0-34.0 [facility] Comment on above: Performed By: #### B MP3M, HEMDF #### [place] [address] [address] [place], [place] MCHC 32.2 % Normal 32.0-36.0 [facility] Comment on above: Performed By: #### B MP3M, HEMDF #### [place] [address] [address] [place], [place] MCV (RBC) [Entitic vol] 82.0 fL Normal 80.0-98.0 [facility] Comment on above: Performed By: #### B MP3M, HEMDF #### [place] [address] [address] [place], [place] Monocytes (Bld) [#/Vol] 0.5 10*3/uL Normal 0.0-0.8 [facility] Comment on above: Performed By: #### B MP3M, HEMDF #### [place] [address] [address] [place], [place] Monocytes/100 WBC (Bld) 5.1 % Normal 2.0-10.0 [facility] Comment on above: Performed By: #### B MP3M, HEMDF #### [facility] [address] [place], [place] Platelet mean volume (Bld) [Entitic vol] 9.1 fL Normal 7.4-10.4 [facility] Comment on above: Performed By: #### B MP3M, HEMDF #### [facility] [address] [place], [place] Platelets (Bld) [#/Vol] 282 10*3/uL Normal 140-440 [facility] Comment on above: Performed By: #### B MP3M, HEMDF #### [place] [address] [address] [place], [place] RBC (Bld) [#/Vol] 4.26 10*6/uL Low 4.40-5.90 [facility] Comment on above: Performed By: #### Jimmy MP3Vika, HEMDF #### [place] [address] [address] [place], [place] WBC (Bld) [#/Vol] 10.3 10*3/uL Normal 3.6-10.7 [facility] Comment on above: Performed By: #### Jimmy MP3Vika, HEMDF #### [place] [address] [address] [place], [place] Basic Metabolic Panelon 02-2 Anion gap [Moles/Vol] 11 mmol/L Normal 3-13 [facility] Comment on above: Performed By: #### H WILLIS BMP3M #### [place] [address] [address] [place], [place] Calcium [Mass/Vol] 9.4 mg/dL Normal 8.4-10.4 [facility] Comment on above: Performed By: #### H WILLIS BMP3M #### [place] [address] [address] [place], [place] CO2 [Moles/Vol] 24 mmol/L Normal 22-30 [facility] Comment on above: Performed By: #### H WILLIS BMP3M #### [place] [address] [address] [place], [place] Creatinine [Mass/Vol] 0.73 mg/dL Normal 0.52-1.25 [facility] Comment on above: Performed By: #### H ALEJA PEDRO3M #### [address] eGFR OTHER > 90.0 Normal >60 [facility] Comment on above: Result Comment: KDIG O guidelines provide the following GFR categories: Stage GFR(ml/min/1.73 m2) Terms G1 >=90 Normal or high G2 60-89 Mildly decreased* G3a 45-59 Mildly to moderately decreased G3b 30-44 Moderately to severely decreased G4 15-29 Severely decreased G5 <15 Kidney failure *Relative to young adult level. In the absence of evidence of kidney damage, neither GFR category G1 nor G2 fulfill the criteria for CKD. The CKD-EPI equation is validated in individuals 18 years of age and older. Currently the best equation for estimating glomerular filtration rate (GFR) from serum creatinine in children is the Bedside Pratt equation. It is less accurate in patients with extremes of muscle mass, restriction of dietary protein, ingestion of creatine, extra-renal metabolism of creatinine, or treatment with medications that affect renal tubular creatinine secretion. Performed By: #### H ALEJA PEDRO3M #### [address] GFR/1.73 sq M.predicted among blacks MDRD (S/P/Bld) [Vol rate/Area] mL/min/{1.73_m2} Normal >60 [facility] Comment on above: Performed By: #### H ALEJA PEDRO3M #### [address] Glucose [Mass/Vol] 129 mg/dL High 70-100 [facility] Comment on above: Performed By: #### H ALEJA PEDRO3M #### [address] Urea nitrogen [Mass/Vol] 11 mg/dL Normal 7-20 [facility] Comment on above: Performed By: #### H ALEJA PEDRO3M #### [address] Chloride [Moles/Vol] 102 mmol/L Normal 98-107 [facility] Comment on above: Performed By: #### H EMDF BMP3M #### [facility] [address] [place], [place] Potassium [Moles/Vol] 4.3 mmol/L Normal 3.5-5.1 [facility] Comment on above: Performed By: #### H EMDF BMP3M #### [facility] [address] [place], [place] Sodium [Moles/Vol] 137 mmol/L Normal 135-145 [facility] Comment on above: Performed By: #### H EMDF BMP3M #### [facility] [address] [place], [place] CR Chest Portableon 11-26-19 21 CR Chest Portable Patient Name: RUTHIE CASTILLO Diagnostic Radiology ACCESSION EXAM DATE/TIME PROCEDURE ORDERING PROVIDER [id number] 11/26/2020 17:13 EST CR Chest Portable [id number] -CHELSI, ANEIL CPT code 44948 Reason For Exam (CR Chest Portable) chest pain, pleuritc Report PORTABLE CHEST Clinical indication: Chest pain Comparison: 08/17/2019 The cardiac silhouette and mediastinal contours are not enlarged. The lungs show no edema or focal acute infiltrates. No pleural effusions are identified. IMPRESSION: NO ACUTE RADIOGRAPHIC ABNORMALITY IS NOTED IN THE CHEST. Report Dictated on Final Dictated: 11/26/2020 6:12 pm Dictating Physician: MD ACOSTA DIANE Signed Date and Time: 11/26/2020 6:12 pm Signed by: MD ACOSTA DIANE Transcribed Date and Time: 11/26/2020 6:12 Normal [facility] Complete Urinalysison 2020 Appearance (U) Clear Normal Clear [facility] Comment on above: Result Comment: . Performed By: #### C UA2 #### [facility] [address], [place] Bilirubin,Urine Negative Normal Negative [facility] Comment on above: Result Comment: . Performed By: #### C UA2 #### [facility] [address], [place] Color (U) Colorless Normal Lt. Yellow [facility] Comment on above: Result Comment: . Performed By: #### C UA2 #### [facility] [address], [place] Glucose Ql (U) Normal Normal Normal (<70) [facility] Comment on above: Result Comment: . Performed By: #### C UA2 #### [facility] [address], [place] Ketone,Urine Negative Normal Negative [facility] Comment on above: Result Comment: . Performed By: #### C UA2 #### [facility] [address], [place] Leukocytes,Urine Negative Normal Negative [facility] Comment on above: Result Comment: . Performed By: #### C UA2 #### [facility] [address], [place] Nitrites,Urine Negative Normal Negative [facility] Comment on above: Result Comment: . Performed By: #### C UA2 #### [place] [address] [address], [place] Occult Blood,Urine Negative Normal Negative [facility] Comment on above: Result Comment: . Performed By: #### C UA2 #### [facility] [address], [place] pH,Urine 5.5 Normal 5.0-8.0 [facility] Comment on above: Result Comment: . Performed By: #### C UA2 #### [facility] [address], [place] Specific [place],Urine < 1.005 Abnormal 1.005 - 1.030 [facility] Comment on above: Result Comment: . Performed By: #### C UA2 #### [facility] [address], [place] Total Protein,Urine Negative Normal Negative [facility] Comment on above: Result Comment: . Performed By: #### C UA2 #### [place] [address] [address], [place] Urobilinogen,Urine Normal Normal Normal (0-1) [facility] Comment on above: Result Comment: . Performed By: #### C UA2 #### [place] [address] [address], [place] Hemogram w/ Autodiffon 11-26 Abs Baso Cnt 0.0 10*3/uL Normal 0.0-0.2 [facility] Comment on above: Performed By: #### H WILLIS BMP3M #### [place] [address] [address], [place] Abs Neutrophile Cnt 10.5 10*3/uL High 1.8-7.0 [facility] Comment on above: Performed By: #### H EMDRomero BMP3M #### [place] [address], [place] Basophils/100 WBC (Bld) 0.2 % Normal 0.0-2.0 [facility] Comment on above: Performed By: #### H EMDRomero BMP3M #### [place] [address] [address] [place], [place] Eosinophils (Bld) [#/Vol] 0.0 10*3/uL Normal 0.0-0.5 [facility] Comment on above: Performed By: #### H EMDF BMP3M #### [address] Eosinophils/100 WBC (Bld) 0.1 % Low 1.0-6.0 [facility] Comment on above: Performed By: #### H EMDRomero BMP3M #### [place] [address] [address] [place], [place] Erythrocyte distribution width (RBC) [Ratio] 14.7 % High 11.5-14.5 [facility] Comment on above: Performed By: #### H EMDF BMP3M #### [place] [address] [place], [place] Granulocytes/100 WBC (Bld) 92.2 % High 40.0-80.0 [facility] Comment on above: Performed By: #### H EMDF BMP3M #### [place] [address] [place] [place] Hematocrit (Bld) [Volume fraction] 36.7 % Low 40.0-52.0 [facility] Comment on above: Performed By: #### H EMDF BMP3M #### [place] [address] [place] Hemoglobin (Bld) [Mass/Vol] 12.1 g/dL Low 13.0-18.0 [facility] Comment on above: Performed By: #### H EMDF BMP3M #### [address] Lymphocytes (Bld) [#/Vol] 0.7 10*3/uL Low 1.0-4.3 [facility] Comment on above: Performed By: #### H WILLIS BMP3M #### [place] [address] [place] [place], [place] Lymphocytes/100 WBC (Bld) 6.0 % Low 20.0-40.0 [facility] Comment on above: Performed By: #### H EMDRomero BMP3M #### [address] MCH (RBC) [Entitic mass] 26.4 pg Normal 26.0-34.0 [facility] Comment on above: Performed By: #### H EMDF BMP3M #### [place] [address] [place] [place] MCHC 33.0 % Normal 32.0-36.0 [facility] Comment on above: Performed By: #### H EMDF BMP3M #### [address] MCV (RBC) [Entitic vol] 80.2 fL Normal 80.0-98.0 [facility] Comment on above: Performed By: #### H EMDF BMP3M #### [address] Monocytes (Bld) [#/Vol] 0.2 10*3/uL Normal 0.0-0.8 [facility] Comment on above: Performed By: #### H WILLIS BMP3M #### [place] [address] [address] [place], [place] Monocytes/100 WBC (Bld) 1.5 % Low 2.0-10.0 [facility] Comment on above: Performed By: #### H WILLIS BMP3M #### [place] [address] [address] [place], [place] Platelet mean volume (Bld) [Entitic vol] 8.4 fL Normal 7.4-10.4 [facility] Comment on above: Performed By: #### H WILLIS BMP3M #### [place] [address] [address] [place], [place] Platelets (Bld) [#/Vol] 303 10*3/uL Normal 140-440 [facility] Comment on above: Performed By: #### H RICHMONDF BMP3M #### [place] [address] [address] [place], [place] RBC (Bld) [#/Vol] 4.58 10*6/uL Normal 4.40-5.90 [facility] Comment on above: Performed By: #### H WILLIS BMP3M #### [place] [address] [address] [place] WBC (Bld) [#/Vol] 11.3 10*3/uL High 3.6-10.7 [facility] Comment on above: Performed By: #### H EMDF BMP3M #### [place] [address] [address] [place], [place] Basic Metabolic Panelon 02-2 Anion gap [Moles/Vol] 11 mmol/L Normal 3-13 [facility] Comment on above: Performed By: #### H EMDF, PT/AP, BMP3M #### [place] [address] [address] [place], [place] Calcium [Mass/Vol] 9.4 mg/dL Normal 8.4-10.4 [facility] Comment on above: Performed By: #### H EMDF, PT/AP, BMP3M #### [facility] [address], [place] CO2 [Moles/Vol] 25 mmol/L Normal 22-30 [facility] Comment on above: Performed By: #### H EMDF, PT/AP, BMP3M #### [facility] [address] [place], [place] Glucose [Mass/Vol] 80 mg/dL Normal 70-100 [facility] Comment on above: Performed By: #### H EMDF, PT/AP, BMP3M #### [facility] [address], [place] Urea nitrogen [Mass/Vol] 11 mg/dL Normal 7-20 [facility] Comment on above: Performed By: #### H EMDF, PT/AP, BMP3M #### [facility] [address] [place] Creatinine [Mass/Vol] 0.72 mg/dL Normal 0.52-1.25 [facility] Comment on above: Performed By: #### H EMDF, PT/AP, BMP3M #### [facility] [address], [place] eGFR OTHER > 90.0 Normal >60 [facility] Comment on above: Result Comment: KDIG O guidelines provide the following GFR categories: Stage GFR(ml/min/1.73 m2) Terms G1 >=90 Normal or high G2 60-89 Mildly decreased* G3a 45-59 Mildly to moderately decreased G3b 30-44 Moderately to severely decreased G4 15-29 Severely decreased G5 <15 Kidney failure *Relative to young adult level. In the absence of evidence of kidney damage, neither GFR category G1 nor G2 fulfill the criteria for CKD. The CKD-EPI equation is validated in individuals 18 years of age and older. Currently the best equation for estimating glomerular filtration rate (GFR) from serum creatinine in children is the Bedside Pratt equation. It is less accurate in patients with extremes of muscle mass, restriction of dietary protein, ingestion of creatine, extra-renal metabolism of creatinine, or treatment with medications that affect renal tubular creatinine secretion. Performed By: #### H EMDF, PT/AP, BMP3M #### [place] [address] [place], [place] GFR/1.73 sq M.predicted among blacks MDRD (S/P/Bld) [Vol rate/Area] mL/min/{1.73_m2} Normal >60 [facility] Comment on above: Performed By: #### H EMDF, PT/AP, BMP3M #### [address] Potassium [Moles/Vol] 3.9 mmol/L Normal 3.5-5.1 [facility] Comment on above: Performed By: #### H EMDF, PT/AP, BMP3M #### [address] Chloride [Moles/Vol] 103 mmol/L Normal 98-107 [facility] Comment on above: Performed By: #### H EMDF, PT/AP, BMP3M #### [address] Sodium [Moles/Vol] 139 mmol/L Normal 135-145 [facility] Comment on above: Performed By: #### H EMDF, PT/AP, BMP3M #### [address] Hemogram w/ Autodiffon 11-25 Abs Baso Cnt 0.0 10*3/uL Normal 0.0-0.2 [facility] Comment on above: Performed By: #### H EMDF, PT/AP, BMP3M #### [address] Abs Neutrophile Cnt 4.9 10*3/uL Normal 1.8-7.0 [facility] Comment on above: Performed By: #### H EMDF, PT/AP, BMP3M #### [address] Basophils/100 WBC (Bld) 0.4 % Normal 0.0-2.0 [facility] Comment on above: Performed By: #### H EMDF, PT/AP, BMP3M #### [address] Eosinophils (Bld) [#/Vol] 0.6 10*3/uL High 0.0-0.5 [facility] Comment on above: Performed By: #### H EMDF, PT/AP, BMP3M #### [address] Eosinophils/100 WBC (Bld) 7.1 % High 1.0-6.0 [facility] Comment on above: Performed By: #### H EMDF, PT/AP, BMP3M #### [address] Erythrocyte distribution width (RBC) [Ratio] 15.4 % High 11.5-14.5 [facility] Comment on above: Performed By: #### H EMDF, PT/AP, BMP3M #### [address] Granulocytes/100 WBC (Bld) 59.0 % Normal 40.0-80.0 [facility] Comment on above: Performed By: #### H EMDF, PT/AP, BMP3M #### [address] Hematocrit (Bld) [Volume fraction] 40.8 % Normal 40.0-52.0 [facility] Comment on above: Performed By: #### H EMDF, PT/AP, BMP3M #### [address] Hemoglobin (Bld) [Mass/Vol] 13.5 g/dL Normal 13.0-18.0 [facility] Comment on above: Performed By: #### H EMDF, PT/AP, BMP3M #### [address] Lymphocytes (Bld) [#/Vol] 2.1 10*3/uL Normal 1.0-4.3 [facility] Comment on above: Performed By: #### H EMDF, PT/AP, BMP3M #### [place] [address] [address] [place], [place] Lymphocytes/100 WBC (Bld) 25.7 % Normal 20.0-40.0 [facility] Comment on above: Performed By: #### H EMDF, PT/AP, BMP3M #### [place] [address] [place] MCH (RBC) [Entitic mass] 26.7 pg Normal 26.0-34.0 [facility] Comment on above: Performed By: #### H EMDF, PT/AP, BMP3M #### [address] MCHC 33.1 % Normal 32.0-36.0 [facility] Comment on above: Performed By: #### H EMDF, PT/AP, BMP3M #### [address] MCV (RBC) [Entitic vol] 80.4 fL Normal 80.0-98.0 [facility] Comment on above: Performed By: #### H EMDF, PT/AP, BMP3M #### [address] Monocytes (Bld) [#/Vol] 0.6 10*3/uL Normal 0.0-0.8 [facility] Comment on above: Performed By: #### H EMDF, PT/AP, BMP3M #### [address] Monocytes/100 WBC (Bld) 7.8 % Normal 2.0-10.0 [facility] Comment on above: Performed By: #### H EMDF, PT/AP, BMP3M #### [address] Platelet mean volume (Bld) [Entitic vol] 8.7 fL Normal 7.4-10.4 [facility] Comment on above: Performed By: #### H EMDF, PT/AP, BMP3M #### [place] [address] [place] [address] Platelets (Bld) [#/Vol] 300 10*3/uL Normal 140-440 [facility] Comment on above: Performed By: #### H EMDF, PT/AP, BMP3M #### [facility] [address] [place] [address] RBC (Bld) [#/Vol] 5.07 10*6/uL Normal 4.40-5.90 [facility] Comment on above: Performed By: #### H EMDF, PT/AP, BMP3M #### [facility] [address] [place] [address] WBC (Bld) [#/Vol] 8.2 10*3/uL Normal 3.6-10.7 [facility] Comment on above: Performed By: #### H EMDF, PT/AP, BMP3M #### [place] [address] [address], [place] Op Noteon 11-25-2020 Op Note PATIENT: YE CASTILLO ADMISSION DATE: 11/17/2020 SURGERY DATE: 11/25/2020 DATE OF : 1990 AGE: 30 ADMITTING PHYSICIAN: Spencer Fonseca MD ATTENDING PHYSICIAN: Spencer Fonseca MD DICTATING PHYSICIAN: Spencer Fonseca MD OPERATIVE RECORD Procedure: CLOSURE OF LOOP ILEOSTOMY. Preoperative Diagnosis: Status ileostomy. Postoperative Diagnosis: Status ileostomy. Anesthesia: General. Clinical History: This is a 30-year-old male who last week underwent closure of Alejandro with diverting loop ileostomy. There was difficulty with erosion and retraction of the ileostomy. The colorectal anastomosis was examined endoscopically and was found to be intact. He presented now for closure of his loop ileostomy. Description of Procedure: The patient was brought to the operating room. After induction of general anesthesia, he was prepped and draped in usual fashion. The sutures were removed around the ostomy and small bowel was mobilized down to the level of the fascia. The small bowel was able to be exteriorized and a [id number] functional end-to-end anastomosis was performed using 2 firings of the Endo-HARPER green load stapler 75. A 3-0 Vicryl Crotch stitch was placed. Mesentery was divided between clamps. The anastomosis was pink and healthy, it was returned to the abdomen. The fascia was closed using 0-PDS suture. The skin was closed with pursestring. The patient tolerated the procedure well, was transferred to recovery in stable condition. Diskriter Job ID: [id number] Spencer Fonseca MD DOD:11/25/2020 01:46 P THANIAF/chencho DOT:11/25/2020 02:26 P Job Number: [id number] Document Number: [id number] cc: Spencer Fonseca MD [address] [place] [id number] Normal [facility] Protime AND APTTon INR Coag (PPP) [Relative time] {INR} Normal 0.9-1.1 [facility] Comment on above: Result Comment: SUSANNE ECTED RESULT...Previous above value was 0.9, verified on 11/25/20 at 06:24 by CLF1 . Recommended Anticoagulant Therapy: SEE BELOW ----- INR of 2.0 - 3.0 : - Prophylaxis of Venous Thrombosis (high-risk surgery) - Treatment of Venous Thrombosis - Treatment of Pulmonary Embolism (Includes tissue heart valves, Acute Myocardial Infarction to prevent systemic embolism, Valvular Heart Disease, and Atrial Fibrillation) ----- INR of 2.5 - 3.5 : - Mechanical Prosthetic Valves (high risk) - If oral anticoagulant therapy is used to prevent Myocardial Infarction Performed By: #### H EMDF, PT/AP, BMP3M #### [address] [id number] aPTT Coag (Bld) [Time] 29.1 s Normal 20.0-30.5 [facility] Comment on above: Result Comment: NOTE : The therapeutic time for Heparin anticoagulation, based on Xa activity inhibition, is an APTT of 46-80 seconds. Performed By: #### H EMDF, PT/AP, BMP3M #### [facility] [address] [place] [address] PT Coag (PPP) [Time] 10.1 s Normal 9.0-12.0 [facility] Comment on above: Result Comment: . Performed By: #### H WILLIS, PT/OMAYRA, BMP3M #### [facility] [address] [place] [address] Surgical Pathologyon 021 Surgical Pathology [id number] [facility] PATHOLOG[facility]ORATORY MEDICINE [address] [place], [place] [id number] FINAL SURGICAL PATHOLOGY REPORT NAME: RUTHIE CASTILLO N [id number] : 1990 30 Y [facility] NO.: [id number] LOCATION: [place] [address] PROCEDURE 11/25/2020 DATE: SURGEON: SPENCER FONSECA M.D. RECEIVED 11/28/2020 DATE: ATTENDING: SPENCER FONSECA M.D. REPORT DATE: 11/29/2020 COPIES TO: DIAGNOSIS: STOMA, EXCISION - BENIGN INFLAMED BOWEL TISSUE WITH AREA OF ULCERATION, TRANSMURAL INFLAMMATION, AND SEROSITIS JAW/JAW Signature> ERIK KNIGHT M.D. CLINICAL INFORMATION: Not provided. SPECIMEN: ILEOSTOMY GROSS DESCRIPTION: Received in formalin labeled stoma is a segment of bowel with an apparent opening consistent with a stoma site. The bowel measures 4 cm in length and has an average diameter of 2.5 cm. The stoma opening measures 3 x 3 cm. It has raised folds and hemorrhagic edges. Sales And 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 Representative sections are submitted in two blocks. AHD/0RW Disclaimer: The following statement applies to all immunohistochemistry, in situ hybridization, molecular studies, and immunofluorescence testing. The use of one or more reagents in the above tests is regulated as an analyte specific reagent (ASR). These tests were developed and their performance characteristics determined by the clinical laboratories of [facility]. They have not been cleared by the US Food and Drug Administration (FDA). The FDA has determined that such clearance or approval is not necessary. All the above immunostains were performed on paraffin embedded tissue. Appropriate positive and negative controls (where applicable) were run in parallel with the patient's specimen; these controls showed expected staining pattern, with acceptable intensity of staining. Immunohistochemical assays have not been validated on decalcified tissues. Results should be interpreted with caution given the raised possibility of false negativity on decalcified specimens. Professional Performing Location: [address] [address]. DEPARTMENT OF PATHOLOGY AND LABORATORY MEDICINE [place], [place] [address] Normal [facility] TS GELon 11-25-2020 TS GEL ABO Group: O Rh, Gel: POS Antibody Screen Gel: NEG Normal [facility] Comment on above: Performed By: #### T SGL ####[facility] Hemoglobin and Hematocrit, B lotu 11-10-2020 Hematocrit (Bld) [Volume fraction] 44.3 % 40 - 52 % [facility] Work Phone: Hemoglobin (Bld) [Mass/Vol] 14.3 g/dL 13 - 18 g/dL [facility] Work Phone: Test Performed by [facility], [address] [place] [id number] [place] [address] Work Phone: TYPE AND SCREENon 11-10-2020 Sodium [Moles/Vol] O [facility] Work Phone: Sodium [Moles/Vol] Positive [facility] Work Phone: Sodium [Moles/Vol] Negative [facility] Work Phone: Test Performed by [facility], [address] [place] [id number] [facility] Work Phone: Basic Metabolic Panelon 10-02 Anion gap [Moles/Vol] 10 mmol/L [place], [place] Calcium [Mass/Vol] 9.3 mg/dL 8.4 - 10. 4 mg/dL [place], [place] Chloride [Moles/Vol] 102 mmol/L 98 - 10 7 mmol/L [place], [place] CO2 [Moles/Vol] 24 mmol/L 22 - 30 mmol/L [place] Creatinine [Mass/Vol] 0.8 mg/dL 0.52 - 1.25 mg/dL [place], [place] EGFR IF NonAfrican Syrian >90.0 >60 mL/min [place], [place] Comment on above: KDIGO guidelines pro vide the following GFR categories: Stage GFR(ml/min/1.73 m2) Terms G1 >=90 Normal or high G2 60-89 Mildly decreased* G3a 45-59 Mildly to moderately decreased G3b 30-44 Moderately to severely decreased G4 15-29 Severely decreased G5 <15 Kidney failure *Relative to young adult level. In the absence of evidence of kidney damage, neither GFR category G1 nor G2 fulfill the criteria for CKD. The CKD-EPI equation is validated in individuals 18 years of age and older. Currently the best equation for estimating glomerular filtration rate (GFR) from serum creatinine in children is the Bedside Pratt equation. It is less accurate in patients with extremes of muscle mass, restriction of dietary protein, ingestion of creatine, extra-renal metabolism of creatinine, or treatment with medications that affect renal tubular creatinine secretion. GFR/1.73 sq M predicted among blacks MDRD (S/P/Bld) [Vol rate/Area] mL/min/{1.73_m2} >60 mL/min [place], [place] Glucose [Mass/Vol] 91 mg/dL 70 - 100 mg/dL [place], [place] Potassium [Moles/Vol] 3.5 mmol/L 3.5 - 5.1 mmol/L [place], [place] Sodium [Moles/Vol] 136 mmol/L 135 - 145 mmol/L [place] Urea nitrogen [Mass/Vol] 12 mg/dL 7 - 20 mg/dL [place], [place] CT Abdomen Pelvis W Contrast on 10-30-2020 Juan, Nicolle Incoming Radiology Results From [facility] - 10/30/2020 7:18 PM EST Patient Name: RUTHIE CASTILLO Computed Tomography ACCESSION EXAM DATE/TIME PROCEDURE ORDERING PROVIDER [id number] 10/30/2020 18:[address] Abdomen/Pelvis w/ IV ASHISH ROMAN, Contrast (IV Onl JAMIE CPT code 52703 Q9967 Reason For Exam (CT Abdomen/Pelvis w/ IV Contrast (IV Onl) pain around stoma, stoma 5cm larger in [address] ABDOMEN AND PELVIS WITH CONTRAST EXAM DATE AND TIME: 10/30/2020 6:51 PM EST INDICATION: 30 years Male with pain around stoma with enlargement of the stoma COMPARISON: 06/26/2020 TECHNIQUE: Transaxial sequence through the abdomen and pelvis with 3 mm reconstruction with dynamic intravenous infusion of 75 mL of 370 mg% contrast media. Coronal and sagittal reconstructions included. Dose reduction was employed with automated exposure control. FINDINGS: Chest base: Normal. Liver: Generalized diminished attenuation as compared to the spleen, corresponding to diffuse fatty infiltration. There is some focal fatty sparing in the right hepatic lobe. Otherwise, no liver lesions are identified. Biliary tree: Normal caliber. The gallbladder is nondistended. Spleen: Normal. Adrenals: Normal. Pancreas: Normal. Kidneys: Symmetric contrast enhancement without hydronephrosis. No focal lesion. Free fluid: None. Retroperitoneal/mesenteric lymphadenopathy: None. Bowel: There has been interval postsurgical changes including prior left hemicolectomy with a right lower quadrant colostomy. Anastomotic sutures are also seen in the right hemipelvis likely related to a small bowel resection with enteroenteric anastomosis. The bowel is normal in caliber. The appendix is nondistended. Aorta: Normal caliber. Abdominal wall: A right lower quadrant colostomy is present, with some Computed Tomography Report protrusion of the distal aspect of the stoma approximately 1.4 cm outward from the abdominal wall (series 4 image 115, series 7 image 92), but without evidence of adjacent inflammatory change, parastomal hernia or abdominal wall fluid collection. Pelvic organs/viscera: No mass identified. Pelvic lymphadenopathy: None. Osseous structures: No abnormality. IMPRESSION: 1. Post surgical changes. Some protrusion of the distal aspect of the stoma, but without evidence of adjacent inflammatory change, parastomal hernia or abdominal wall fluid collection. 2. Hepatic steatosis. Report Dictated on --- Final --- Dictated: 10/30/2020 7:09 pm Dictating Physician: MD SAUNDERS NICHOLAS Signed Date and Time: 10/30/2020 7:17 pm Signed by: MD SAUNDERS NICHOLAS Transcribed Date and Time: 10/30/2020 7:09 [place], [place] Patient Name: RUTHIE CASTILLO Computed Tomography ACCESSION EXAM DATE/TIME PROCEDURE ORDERING PROVIDER [id number] 10/30/2020 18:[address] Abdomen/Pelvis w/ IV ASHISH ROMAN, Contrast (IV Onl JAMIE CPT code 51363 Q9967 Reason For Exam (CT Abdomen/Pelvis w/ IV Contrast (IV Onl) pain around stoma, stoma 5cm larger in [address] ABDOMEN AND PELVIS WITH CONTRAST EXAM DATE AND TIME: 10/30/2020 6:51 PM EST INDICATION: 30 years Male with pain around stoma with enlargement of the stoma COMPARISON: 06/26/2020 TECHNIQUE: Transaxial sequence through the abdomen and pelvis with 3 mm reconstruction with dynamic intravenous infusion of 75 mL of 370 mg% contrast media. Coronal and sagittal reconstructions included. Dose reduction was employed with automated exposure control. FINDINGS: Chest base: Normal. Liver: Generalized diminished attenuation as compared to the spleen, corresponding to diffuse fatty infiltration. There is some focal fatty sparing in the right hepatic lobe. Otherwise, no liver lesions are identified. Biliary tree: Normal caliber. The gallbladder is nondistended. Spleen: Normal. Adrenals: Normal. Pancreas: Normal. Kidneys: Symmetric contrast enhancement without hydronephrosis. No focal lesion. Free fluid: None. Retroperitoneal/mesenteric lymphadenopathy: None. Bowel: There has been interval postsurgical changes including prior left hemicolectomy with a right lower quadrant colostomy. Anastomotic sutures are also seen in the right hemipelvis likely related to a small bowel resection with enteroenteric anastomosis. The bowel is normal in caliber. The appendix is nondistended. Aorta: Normal caliber. Abdominal wall: A right lower quadrant colostomy is present, with some Computed Tomography Report protrusion of the distal aspect of the stoma approximately 1.4 cm outward from the abdominal wall (series 4 image 115, series 7 image 92), but without evidence of adjacent inflammatory change, parastomal hernia or abdominal wall fluid collection. Pelvic organs/viscera: No mass identified. Pelvic lymphadenopathy: None. Osseous structures: No abnormality. IMPRESSION: 1. Post surgical changes. Some protrusion of the distal aspect of the stoma, but without evidence of adjacent inflammatory change, parastomal hernia or abdominal wall fluid collection. 2. Hepatic steatosis. Report Dictated on --- Final --- Dictated: 10/30/2020 7:09 pm Dictating Physician: MD SAUNDERS NICHOLAS Signed Date and Time: 10/30/2020 7:17 pm Signed by: MD SAUNDERS NICHOLAS Transcribed Date and Time: 10/30/2020 7:09 [place] Hemogram (CBC) w/Auto Diffon 10-30-2020 Absolute Baso # 0.1 10*3/uL 0 - 0.2 10*3/uL [place] Absolute Neut # 10.4 10*3/uL High 1.8 - 7 10*3/uL [place] Basophils/100 WBC (Bld) 0.6 % 0 - 2 % [place] Eosinophils (Bld) [#/Vol] 1.0 10*3/uL High 0 - 0.5 10*3/uL [place] Eosinophils/100 WBC (Bld) 7.1 % High 1 - 6 % [place] Erythrocyte distribution width (RBC) [Ratio] 14.7 % High 11.5 - 14.5 % [place] Granulocytes/100 WBC (Bld) 76.8 % 40 - 80 % [place] Hematocrit (Bld) [Volume fraction] 43.9 % 40 - 52 % [place] Hemoglobin (Bld) [Mass/Vol] 14.3 g/dL 13 - 18 g/dL [place] Interpretation and review of laboratory results Abnormal [place] Lymphocytes (Bld) [#/Vol] 1.2 10*3/uL 1 - 4.3 10*3/uL [place] Lymphocytes/100 WBC (Bld) 8.7 % Low 20 - 40 % [place] MCH (RBC) [Entitic mass] 26.8 pg 26 - 34 pg [place] MCHC (RBC) [Mass/Vol] 32.6 % 32 - 36 % [place] MCV (RBC) [Entitic vol] 82.1 fL 80 - 98 fL [place] Monocytes (Bld) [#/Vol] 0.9 10*3/uL High 0 - 0.8 10*3/uL [place] Monocytes/100 WBC (Bld) 6.8 % 2 - 10 % [place] Platelet mean volume (Bld) [Entitic vol] 8.8 fL 7.4 - 10.4 fL [place] Platelets (Bld) [#/Vol] 238 10*3/uL 140 - 440 10*3/uL [place] RBC (Bld) [#/Vol] 5.34 10*6/uL 4.4 - 5.9 10*6/uL [place] WBC (Bld) [#/Vol] 13.6 10*3/uL High 3.6 - 10.7 10*3/uL [place] Test Performed by [facility], [address] [place] [address] [place] Hepatic Function Panelon Albumin [Mass/Vol] 5.1 g/dL High 3.5 - 5 g/dL [place] ALP [Catalytic activity/Vol] 73 U/L 38 - 126 U/L [place] ALT [Catalytic activity/Vol] 48 U/L 0 - 49 U/L [place] Comment on above: The ALT test is perf ormed by an updated assay method. Please note that the reference intervals have been changed and are now sex specific. AST [Catalytic activity/Vol] 32 U/L 15 - 46 U/L [place] Bilirubin Ql (U) 1.1 mg/dL 0.2 - 1.3 mg/dL [place] Bilirubin.direct [Mass/Vol] 0.0 mg/dL 0 - 0.3 mg/dL [place] Interpretation and review of laboratory results Abnormal [place] Protein [Mass/Vol] 8.7 g/dL High 6.3 - 8.2 g/dL [place] Lactic Acid, Plasmaon 2020 Lactate [Moles/Vol] 0.8 mmol/L 0.7 - 2 mmol/L [place] Test Performed by [facility], [address] [place] [address] Lipaseon 10-30-2020 Lipase [Catalytic activity/Vol] 61 U/L 23 - 300 U/L [place] Test Performed by [address] Otheron 10-30-2020 Test Performed by [address] Basic Metabolic Panel w/ Ref jane to MGon 08-15-2020 Anion gap [Moles/Vol] 11 mmol/L [place] Calcium [Mass/Vol] 9.0 mg/dL 8.4 - 10. 4 mg/dL [place] Chloride [Moles/Vol] 105 mmol/L 98 - 10 7 mmol/L [place] CO2 [Moles/Vol] 25 mmol/L 22 - 30 mmol/L [place] Creatinine [Mass/Vol] 0.81 mg/dL 0.52 - 1.25 mg/dL [place] EGFR IF NonAfrican Syrian >90.0 >60 mL/min [place] Comment on above: KDIGO guidelines pro vide the following GFR categories: Stage GFR(ml/min/1.73 m2) Terms G1 >=90 Normal or high G2 60-89 Mildly decreased* G3a 45-59 Mildly to moderately decreased G3b 30-44 Moderately to severely decreased G4 15-29 Severely decreased G5 <15 Kidney failure *Relative to young adult level. In the absence of evidence of kidney damage, neither GFR category G1 nor G2 fulfill the criteria for CKD. The CKD-EPI equation is validated in individuals 18 years of age and older. Currently the best equation for estimating glomerular filtration rate (GFR) from serum creatinine in children is the Bedside Pratt equation. It is less accurate in patients with extremes of muscle mass, restriction of dietary protein, ingestion of creatine, extra-renal metabolism of creatinine, or treatment with medications that affect renal tubular creatinine secretion. GFR/1.73 sq M predicted among blacks MDRD (S/P/Bld) [Vol rate/Area] mL/min/{1.73_m2} >60 mL/min [place] Glucose [Mass/Vol] 83 mg/dL 70 - 100 mg/dL [place] Potassium [Moles/Vol] 3.5 mmol/L 3.5 - 5.1 mmol/L [place] Sodium [Moles/Vol] 141 mmol/L 135 - 145 mmol/L [place] Urea nitrogen [Mass/Vol] 13 mg/dL 7 - 20 mg/dL [place] Test Performed by [facility], [address] [place] [address] [place] CBC auto differentialon 07-31 Erythrocyte distribution width (RBC) [Ratio] 13.7 % 11.5 - 14.5 % [place] Hematocrit (Bld) [Volume fraction] 33.2 % Low 40 - 52 % [place] Hemoglobin (Bld) [Mass/Vol] 11.1 g/dL Low 13 - 18 g/dL [place] Interpretation and review of laboratory results Abnormal [place] MCH (RBC) [Entitic mass] 29.4 pg 26 - 34 pg [place] MCHC (RBC) [Mass/Vol] 33.5 % 32 - 36 % [facility] [place], [place] MCV (RBC) [Entitic vol] 87.7 fL 80 - 98 fL [facility], [place] Platelet mean volume (Bld) [Entitic vol] 8.3 fL 7.4 - 10.4 fL [facility], [place] Platelets (Bld) [#/Vol] 310 10*3/uL 140 - 440 10*3/uL [facility], [place] RBC (Bld) [#/Vol] 3.78 10*6/uL Low 4.4 - 5.9 10*6/uL [facility], [place] WBC (Bld) [#/Vol] 6.1 10*3/uL 3.6 - 10.7 10*3/uL [facility], [place] Test Performed by [address] [address] [place], [place] Magnesiumon 08-15-2020 Magnesium [Mass/Vol] 2.0 mg/dL 1.6 - 2 .3 mg/dL [place] Test Performed by [address] [address] [place] Manual Differentialon 2019 Absolute Baso # 0.0 10*3/uL 0 - 0.2 10*3/uL [facility], [place] Absolute Eos # 0.1 10*3/uL 0 - 0.5 10*3/uL [facility], [place] Absolute Lymph # 1.1 10*3/uL 1.1 - 4.5 10*3/uL [facility], [place] Absolute Bath # 0.2 10*3/uL 0.2 - 1.1 10*3/uL [facility], [place] Absolute Neut # 4.6 10*3/uL 2.2 - 8.2 10*3/uL [facility] [place] Bands 2 % 0 - 3 % [facility] Basophils 0 % 0 - 2 % [facility] Eosinophils 2 % 1 - 6 % [facility] Interpretation and review of laboratory results Abnormal [facility], [place] Lymphocytes 18 % Low 20 - 40 % [facility] Monocytes 4 % 2 - 10 % [place] RBC morphology finding Nom (Bld) Normal [place] Seg Neutrophils 74 % 40 - 80 % [place] TOTAL CELLS COUNTED 100 [place] Test Performed by [facility], [address] [place] [address] [place] Basic Metabolic Panel w/ Ref jane to MGon 08-14-2020 Anion gap [Moles/Vol] 10 mmol/L [place] Calcium [Mass/Vol] 8.8 mg/dL 8.4 - 10. 4 mg/dL [place] Chloride [Moles/Vol] 106 mmol/L 98 - 10 7 mmol/L [place] CO2 [Moles/Vol] 23 mmol/L 22 - 30 mmol/L [place] Creatinine [Mass/Vol] 0.78 mg/dL 0.52 - 1.25 mg/dL [place] EGFR IF NonAfrican Syrian >90.0 >60 mL/min [place] Comment on above: KDIGO guidelines pro vide the following GFR categories: Stage GFR(ml/min/1.73 m2) Terms G1 >=90 Normal or high G2 60-89 Mildly decreased* G3a 45-59 Mildly to moderately decreased G3b 30-44 Moderately to severely decreased G4 15-29 Severely decreased G5 <15 Kidney failure *Relative to young adult level. In the absence of evidence of kidney damage, neither GFR category G1 nor G2 fulfill the criteria for CKD. The CKD-EPI equation is validated in individuals 18 years of age and older. Currently the best equation for estimating glomerular filtration rate (GFR) from serum creatinine in children is the Bedside Pratt equation. It is less accurate in patients with extremes of muscle mass, restriction of dietary protein, ingestion of creatine, extra-renal metabolism of creatinine, or treatment with medications that affect renal tubular creatinine secretion. GFR/1.73 sq M predicted among blacks MDRD (S/P/Bld) [Vol rate/Area] mL/min/{1.73_m2} >60 mL/min [place] Glucose [Mass/Vol] 81 mg/dL 70 - 100 mg/dL [place] Potassium [Moles/Vol] 3.6 mmol/L 3.5 - 5.1 mmol/L [place] Sodium [Moles/Vol] 139 mmol/L 135 - 145 mmol/L [place] Urea nitrogen [Mass/Vol] 10 mg/dL 7 - 20 mg/dL [place] Test Performed by [facility], [address] [place] [address], [place] [address] [place] CBC auto differentialon 07-31 Absolute Baso # 0.0 10*3/uL 0 - 0.2 10*3/uL [place] Absolute Neut # 4.9 10*3/uL 1.8 - 7 10*3/uL [place] Basophils/100 WBC (Bld) 0.2 % 0 - 2 % [place] Eosinophils (Bld) [#/Vol] 0.3 10*3/uL 0 - 0.5 10*3/uL [place] Eosinophils/100 WBC (Bld) 5.2 % 1 - 6 % [place] Erythrocyte distribution width (RBC) [Ratio] 14.1 % 11.5 - 14.5 % [place] Granulocytes/100 WBC (Bld) 73.1 % 40 - 80 % [place] Hematocrit (Bld) [Volume fraction] 31.7 % Low 40 - 52 % [place] Hemoglobin (Bld) [Mass/Vol] 10.6 g/dL Low 13 - 18 g/dL [place] Interpretation and review of laboratory results Abnormal [place] Lymphocytes (Bld) [#/Vol] 0.8 10*3/uL Low 1 - 4.3 10*3/uL [place] Lymphocytes/100 WBC (Bld) 12.0 % Low 20 - 40 % [place] MCH (RBC) [Entitic mass] 29.5 pg 26 - 34 pg [place] MCHC (RBC) [Mass/Vol] 33.5 % 32 - 36 % [place] MCV (RBC) [Entitic vol] 88.1 fL 80 - 98 fL [place] Monocytes (Bld) [#/Vol] 0.6 10*3/uL 0 - 0.8 10*3/uL [place] Monocytes/100 WBC (Bld) 9.5 % 2 - 10 % [place] Platelet mean volume (Bld) [Entitic vol] 8.3 fL 7.4 - 10.4 fL [place] Platelets (Bld) [#/Vol] 258 10*3/uL 140 - 440 10*3/uL [place] RBC (Bld) [#/Vol] 3.60 10*6/uL Low 4.4 - 5.9 10*6/uL [place] WBC (Bld) [#/Vol] 6.6 10*3/uL 3.6 - 10.7 10*3/uL [place] Test Performed by [facility], [address] [place] [address] [place] Basic Metabolic Panel w/ Ref jane to MGon 08-13-2020 Anion gap [Moles/Vol] 8 mmol/L [place] Calcium [Mass/Vol] 8.5 mg/dL 8.4 - 10. 4 mg/dL [place] Chloride [Moles/Vol] 106 mmol/L 98 - 10 7 mmol/L [place] CO2 [Moles/Vol] 25 mmol/L 22 - 30 mmol/L [place] Creatinine [Mass/Vol] 0.91 mg/dL 0.52 - 1.25 mg/dL [place] EGFR IF NonAfrican Syrian >90.0 >60 mL/min [place] Comment on above: KDIGO guidelines pro vide the following GFR categories: Stage GFR(ml/min/1.73 m2) Terms G1 >=90 Normal or high G2 60-89 Mildly decreased* G3a 45-59 Mildly to moderately decreased G3b 30-44 Moderately to severely decreased G4 15-29 Severely decreased G5 <15 Kidney failure *Relative to young adult level. In the absence of evidence of kidney damage, neither GFR category G1 nor G2 fulfill the criteria for CKD. The CKD-EPI equation is validated in individuals 18 years of age and older. Currently the best equation for estimating glomerular filtration rate (GFR) from serum creatinine in children is the Bedside Pratt equation. It is less accurate in patients with extremes of muscle mass, restriction of dietary protein, ingestion of creatine, extra-renal metabolism of creatinine, or treatment with medications that affect renal tubular creatinine secretion. GFR/1.73 sq M predicted among blacks MDRD (S/P/Bld) [Vol rate/Area] mL/min/{1.73_m2} >60 mL/min [place] Glucose [Mass/Vol] 87 mg/dL 70 - 100 mg/dL [place] Potassium [Moles/Vol] 3.5 mmol/L 3.5 - 5.1 mmol/L [place] Sodium [Moles/Vol] 138 mmol/L 135 - 145 mmol/L [place] Urea nitrogen [Mass/Vol] 11 mg/dL 7 - 20 mg/dL [place] Test Performed by [facility], [address] [place] [address] [place] CBC auto differentialon 07-31 Absolute Baso # 0.0 10*3/uL 0 - 0.2 10*3/uL [place] Absolute Neut # 4.3 10*3/uL 1.8 - 7 10*3/uL [place] Basophils/100 WBC (Bld) 0.7 % 0 - 2 % [place] Eosinophils (Bld) [#/Vol] 0.3 10*3/uL 0 - 0.5 10*3/uL [place] Eosinophils/100 WBC (Bld) 4.8 % 1 - 6 % [place] Erythrocyte distribution width (RBC) [Ratio] 13.9 % 11.5 - 14.5 % [place] Granulocytes/100 WBC (Bld) 74.4 % 40 - 80 % [place] Hematocrit (Bld) [Volume fraction] 30.0 % Low 40 - 52 % [place] Hemoglobin (Bld) [Mass/Vol] 10.0 g/dL Low 13 - 18 g/dL [place] Interpretation and review of laboratory results Abnormal [place] Lymphocytes (Bld) [#/Vol] 0.8 10*3/uL Low 1 - 4.3 10*3/uL [place] Lymphocytes/100 WBC (Bld) 13.4 % Low 20 - 40 % [place] MCH (RBC) [Entitic mass] 29.4 pg 26 - 34 pg [place] MCHC (RBC) [Mass/Vol] 33.4 % 32 - 36 % [place] MCV (RBC) [Entitic vol] 88.0 fL 80 - 98 fL [place] Monocytes (Bld) [#/Vol] 0.4 10*3/uL 0 - 0.8 10*3/uL [place] Monocytes/100 WBC (Bld) 6.7 % 2 - 10 % [place] Platelet mean volume (Bld) [Entitic vol] 8.2 fL 7.4 - 10.4 fL [place] Platelets (Bld) [#/Vol] 224 10*3/uL 140 - 440 10*3/uL [place] RBC (Bld) [#/Vol] 3.41 10*6/uL Low 4.4 - 5.9 10*6/uL [place] WBC (Bld) [#/Vol] 5.8 10*3/uL 3.6 - 10.7 10*3/uL [place] Test Performed by [id number] [place] [address] Magnesiumon 08-13-2020 Magnesium [Mass/Vol] 2.0 mg/dL 1.6 - 2 .3 mg/dL [place] Test Performed by [id number] [place] [address] Basic Metabolic Panel w/ Ref jane to MGon 08-12-2020 Anion gap [Moles/Vol] 10 mmol/L [place] Calcium [Mass/Vol] 9.1 mg/dL 8.4 - 10. 4 mg/dL [place] Chloride [Moles/Vol] 105 mmol/L 98 - 10 7 mmol/L [place] CO2 [Moles/Vol] 27 mmol/L 22 - 30 mmol/L [place] Creatinine [Mass/Vol] 0.98 mg/dL 0.52 - 1.25 mg/dL [place] EGFR IF NonAfrican Syrian >90.0 >60 mL/min [place] Comment on above: KDIGO guidelines pro vide the following GFR categories: Stage GFR(ml/min/1.73 m2) Terms G1 >=90 Normal or high G2 60-89 Mildly decreased* G3a 45-59 Mildly to moderately decreased G3b 30-44 Moderately to severely decreased G4 15-29 Severely decreased G5 <15 Kidney failure *Relative to young adult level. In the absence of evidence of kidney damage, neither GFR category G1 nor G2 fulfill the criteria for CKD. The CKD-EPI equation is validated in individuals 18 years of age and older. Currently the best equation for estimating glomerular filtration rate (GFR) from serum creatinine in children is the Bedside Pratt equation. It is less accurate in patients with extremes of muscle mass, restriction of dietary protein, ingestion of creatine, extra-renal metabolism of creatinine, or treatment with medications that affect renal tubular creatinine secretion. GFR/1.73 sq M predicted among blacks MDRD (S/P/Bld) [Vol rate/Area] mL/min/{1.73_m2} >60 mL/min [place] Glucose [Mass/Vol] 72 mg/dL 70 - 100 mg/dL [place] Potassium [Moles/Vol] 3.7 mmol/L 3.5 - 5.1 mmol/L [place] Sodium [Moles/Vol] 142 mmol/L 135 - 145 mmol/L [place] Urea nitrogen [Mass/Vol] 14 mg/dL 7 - 20 mg/dL [place] CBC auto differentialon 11- Absolute Baso # 0.0 10*3/uL 0 - 0.2 10*3/uL [place] Absolute Neut # 6.8 10*3/uL 1.8 - 7 10*3/uL [place] Basophils/100 WBC (Bld) 0.3 % 0 - 2 % [place] Eosinophils (Bld) [#/Vol] 0.2 10*3/uL 0 - 0.5 10*3/uL [place] Eosinophils/100 WBC (Bld) 2.0 % 1 - 6 % [place] Erythrocyte distribution width (RBC) [Ratio] 14.3 % 11.5 - 14.5 % [place] Granulocytes/100 WBC (Bld) 77.9 % 40 - 80 % [place] Hematocrit (Bld) [Volume fraction] 28.8 % Low 40 - 52 % [place] Hemoglobin (Bld) [Mass/Vol] 9.6 g/dL Low 13 - 18 g/dL [place] Interpretation and review of laboratory results Abnormal [place] Lymphocytes (Bld) [#/Vol] 1.4 10*3/uL 1 - 4.3 10*3/uL [place] Lymphocytes/100 WBC (Bld) 16.1 % Low 20 - 40 % [place] MCH (RBC) [Entitic mass] 29.7 pg 26 - 34 pg [place] MCHC (RBC) [Mass/Vol] 33.4 % 32 - 36 % [place] MCV (RBC) [Entitic vol] 88.7 fL 80 - 98 fL [place] Monocytes (Bld) [#/Vol] 0.3 10*3/uL 0 - 0.8 10*3/uL [place] Monocytes/100 WBC (Bld) 3.7 % 2 - 10 % [place] Platelet mean volume (Bld) [Entitic vol] 9.0 fL 7.4 - 10.4 fL [place] Platelets (Bld) [#/Vol] 260 10*3/uL 140 - 440 10*3/uL [place] RBC (Bld) [#/Vol] 3.24 10*6/uL Low 4.4 - 5.9 10*6/uL [place] WBC (Bld) [#/Vol] 8.7 10*3/uL 3.6 - 10.7 10*3/uL [place] Test Performed by [facility], [address] [place] [address] [place] Otheron 08-12-2020 Test Performed by [facility], [address] [place] [address] [place] Phosphoruson 08-12-2020 Phosphate [Mass/Vol] 2.7 mg/dL 2.5 - 4 .5 mg/dL [place] Basic Metabolic Panel w/ Ref jane to MGon 08-11-2020 Anion gap [Moles/Vol] 7 mmol/L [place] Calcium [Mass/Vol] 8.5 mg/dL 8.4 - 10. 4 mg/dL [place] Chloride [Moles/Vol] 103 mmol/L 98 - 10 7 mmol/L [place] CO2 [Moles/Vol] 28 mmol/L 22 - 30 mmol/L [place] Creatinine [Mass/Vol] 0.84 mg/dL 0.52 - 1.25 mg/dL [place] EGFR IF NonAfrican Syrian >90.0 >60 mL/min [place] Comment on above: KDIGO guidelines pro vide the following GFR categories: Stage GFR(ml/min/1.73 m2) Terms G1 >=90 Normal or high G2 60-89 Mildly decreased* G3a 45-59 Mildly to moderately decreased G3b 30-44 Moderately to severely decreased G4 15-29 Severely decreased G5 <15 Kidney failure *Relative to young adult level. In the absence of evidence of kidney damage, neither GFR category G1 nor G2 fulfill the criteria for CKD. The CKD-EPI equation is validated in individuals 18 years of age and older. Currently the best equation for estimating glomerular filtration rate (GFR) from serum creatinine in children is the Bedside Pratt equation. It is less accurate in patients with extremes of muscle mass, restriction of dietary protein, ingestion of creatine, extra-renal metabolism of creatinine, or treatment with medications that affect renal tubular creatinine secretion. GFR/1.73 sq M predicted among blacks MDRD (S/P/Bld) [Vol rate/Area] mL/min/{1.73_m2} >60 mL/min [place] Glucose [Mass/Vol] 122 mg/dL High 70 - 100 mg/dL [place] Interpretation and review of laboratory results Abnormal [place] Potassium [Moles/Vol] 3.9 mmol/L 3.5 - 5.1 mmol/L [place] Sodium [Moles/Vol] 138 mmol/L 135 - 145 mmol/L [place] Urea nitrogen [Mass/Vol] 14 mg/dL 7 - 20 mg/dL [place] CBC auto differentialon 07-31 Absolute Baso # 0.0 10*3/uL 0 - 0.2 10*3/uL [place] Absolute Neut # 7.9 10*3/uL High 1.8 - 7 10*3/uL [place] Basophils/100 WBC (Bld) 0.1 % 0 - 2 % [place] Eosinophils (Bld) [#/Vol] 0.0 10*3/uL 0 - 0.5 10*3/uL [place] Eosinophils/100 WBC (Bld) 0.0 % Low 1 - 6 % [place] Erythrocyte distribution width (RBC) [Ratio] 14.1 % 11.5 - 14.5 % [place] Granulocytes/100 WBC (Bld) 88.0 % High 40 - 80 % [place] Hematocrit (Bld) [Volume fraction] 32.4 % Low 40 - 52 % [place] Hemoglobin (Bld) [Mass/Vol] 10.9 g/dL Low 13 - 18 g/dL [place] Interpretation and review of laboratory results Abnormal [place] Lymphocytes (Bld) [#/Vol] 0.6 10*3/uL Low 1 - 4.3 10*3/uL [place] Lymphocytes/100 WBC (Bld) 6.6 % Low 20 - 40 % [place] MCH (RBC) [Entitic mass] 29.7 pg 26 - 34 pg [place] MCHC (RBC) [Mass/Vol] 33.6 % 32 - 36 % [place] MCV (RBC) [Entitic vol] 88.3 fL 80 - 98 fL [place] Monocytes (Bld) [#/Vol] 0.5 10*3/uL 0 - 0.8 10*3/uL [place] Monocytes/100 WBC (Bld) 5.3 % 2 - 10 % [place] Platelet mean volume (Bld) [Entitic vol] 9.2 fL 7.4 - 10.4 fL [place] Platelets (Bld) [#/Vol] 209 10*3/uL 140 - 440 10*3/uL [place] RBC (Bld) [#/Vol] 3.66 10*6/uL Low 4.4 - 5.9 10*6/uL [place] WBC (Bld) [#/Vol] 8.9 10*3/uL 3.6 - 10.7 10*3/uL [place] Test Performed by [facility], [address] [place] [id number] [place] [address] Hemoglobin and Hematocrit, B loaltmar 08-11-2020 Hematocrit (Bld) [Volume fraction] 33.3 % Low 40 - 52 % [place] Hemoglobin (Bld) [Mass/Vol] 11.1 g/dL Low 13 - 18 g/dL [place] Interpretation and review of laboratory results Abnormal [place] Test Performed by [facility], [address] [place] [id number] [place] [address] Otheron 08-11-2020 Test Performed by [facility], [address] [place] [id number] [place] [address] Phosphoruson 08-11-2020 Phosphate [Mass/Vol] 3.2 mg/dL 2.5 - 4 .5 mg/dL [place] Surgical Pathologyon 020 Sodium [Moles/Vol] SEE BELOW [place], [place] [phone] [id number] [facility] PATHOLOGY AND LABORATORY MEDICINE [address] [place] [id number] FINAL SURGICAL PATHOLOGY REPORT NAME: RUTHIE CASTILLO : 1990 30 Y M ARELIS NO.: [id number] LOCATION: [place] [id number] PROCEDURE 08/09/2020 DATE: SURGEON: SPENCER FONSECA M.D. RECEIVED 08/10/2020 DATE: ATTENDING: SPENCER FONSECA M.D. REPORT DATE: 08/11/2020 COPIES TO: DIAGNOSIS: A. SMALL BOWEL STOMA, REVISION - CHANGES CONSISTENT WITH OSTOMY SITE B. COLON, PARTIAL COLECTOMY - COLON WITH MUCOSAL NECROSIS AND EXTENSIVE PERICOLIC FAT NECROSIS WITH SEROSITIS AND SEROSAL ADHESIONS. SMT/SMT Signature> S RIANNA TAYLOR M.D. CLINICAL INFORMATION: Not provided SPECIMEN: (A) COLOSTOMY STOMA (B) COLON, PARTIAL/TOTAL GROSS DESCRIPTION: A. Small bowel stoma Received in formalin is a segment of bowel which measures 6 x 6 x 3 cm. The specimen appears to have two openings; one has skin and measures 3 x 1.7 cm and the other open end measures 3 x 1 cm. The rest of the specimen has a pink-de la cruz, smooth and glistening surface with yellow-de la cruz and lobulated fat. Sectioning through reveals an unremarkable colonic mucosa. It is pink-de la cruz with intact mucosal folds. No gross lesions are identified. Sales And 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 Representative sections are submitted in cassettes A1 and A2. Cassette Summary: A1) Stoma margin (which includes the skin). A2) Margin from the other open margin. B. Colon Received in formalin is a segment of colon which measures 14 cm in length and ranges from 3 to 5 cm in diameter. There is brown-de la cruz and lobulated pericolonic fat that runs the entire length of the specimen. The specimen appears to have an open resection margin and a stapled resection margin. Four centimeters from the open resection margin there is an area of white to adames and granular adhesions. This area measures 4 x 2 cm. Sectioning through reveals a yellow cut surface with areas that appear necrotic. Also present on the cut surface is a diffuse area of bright red hemorrhage. Further sectioning through reveals a possible colonic mucosa which measures 0.4 cm in thickness and 1 cm in diameter. Multiple national sales representative sections are submitted. Cassette Summary: B1) Stapled resection margin. B2) Open resection margin. B3) Sales And 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 Representative section of the colonic mucosa. B4-B6) Sales And 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 Representative sections of the adhesions. B7) Sales And 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 Representative section of the area with necrotic tissue. B8) Additional section of the colonic mucosa. [id number] Disclaimer: The following statement applies to all immunohistochemistry, in situ hybridization, molecular studies, and immunofluorescence testing. The use of one or more reagents in the above tests is regulated as an analyte specific reagent (ASR). These tests were developed and their performance characteristics determined by the clinical laboratories of [facility]. They have not been cleared by the US Food and Drug Administration (FDA). The FDA has determined that such clearance or approval is not necessary. All the above immunostains were performed on paraffin embedded tissue. Appropriate positive and negative controls (where applicable) were run in parallel with the patient's specimen; these controls showed expected staining pattern, with acceptable intensity of staining. Immunohistochemical assays have not been validated on decalcified tissues. Results should be interpreted with caution given the raised possibility of false negativity on decalcified specimens. Professional Performing Location: [place] [address]. DEPARTMENT OF PATHOLOGY AND LABORATORY MEDICINE [place], [place] [address] [place], [place] Basic Metabolic Panel w/ Ref jane to MGon 08-10-2020 Anion gap [Moles/Vol] 13 mmol/L [place], [place] Calcium [Mass/Vol] 8.7 mg/dL 8.4 - 10. 4 mg/dL [place] Chloride [Moles/Vol] 107 mmol/L 98 - 10 7 mmol/L [place] CO2 [Moles/Vol] 17 mmol/L Low 22 - 30 mmol/L [place] Creatinine [Mass/Vol] 0.87 mg/dL 0.52 - 1.25 mg/dL [place] EGFR IF NonAfrican Syrian >90.0 >60 mL/min [place] Comment on above: KDIGO guidelines pro vide the following GFR categories: Stage GFR(ml/min/1.73 m2) Terms G1 >=90 Normal or high G2 60-89 Mildly decreased* G3a 45-59 Mildly to moderately decreased G3b 30-44 Moderately to severely decreased G4 15-29 Severely decreased G5 <15 Kidney failure *Relative to young adult level. In the absence of evidence of kidney damage, neither GFR category G1 nor G2 fulfill the criteria for CKD. The CKD-EPI equation is validated in individuals 18 years of age and older. Currently the best equation for estimating glomerular filtration rate (GFR) from serum creatinine in children is the Bedside Pratt equation. It is less accurate in patients with extremes of muscle mass, restriction of dietary protein, ingestion of creatine, extra-renal metabolism of creatinine, or treatment with medications that affect renal tubular creatinine secretion. GFR/1.73 sq M predicted among blacks MDRD (S/P/Bld) [Vol rate/Area] mL/min/{1.73_m2} >60 mL/min [place] Glucose [Mass/Vol] 181 mg/dL High 70 - 100 mg/dL [place] Interpretation and review of laboratory results Abnormal [place] Potassium [Moles/Vol] 5.6 mmol/L High 3.5 - 5.1 mmol/L [place] Sodium [Moles/Vol] 137 mmol/L 135 - 145 mmol/L [place] Urea nitrogen [Mass/Vol] 15 mg/dL 7 - 20 mg/dL [place] CBC auto differentialon 07-31 Absolute Baso # 0.0 10*3/uL 0 - 0.2 10*3/uL [place] Absolute Neut # 7.3 10*3/uL High 1.8 - 7 10*3/uL [place] Basophils/100 WBC (Bld) 0.3 % 0 - 2 % [place] Eosinophils (Bld) [#/Vol] 0.0 10*3/uL 0 - 0.5 10*3/uL [place] Eosinophils/100 WBC (Bld) 0.1 % Low 1 - 6 % [place] Erythrocyte distribution width (RBC) [Ratio] 13.9 % 11.5 - 14.5 % [place] Granulocytes/100 WBC (Bld) 90.4 % High 40 - 80 % [place] Hematocrit (Bld) [Volume fraction] 45.7 % 40 - 52 % [place] Hemoglobin (Bld) [Mass/Vol] 15.3 g/dL 13 - 18 g/dL [place] Interpretation and review of laboratory results Abnormal [place] Lymphocytes (Bld) [#/Vol] 0.3 10*3/uL Low 1 - 4.3 10*3/uL [place] Lymphocytes/100 WBC (Bld) 3.2 % Low 20 - 40 % [place] MCH (RBC) [Entitic mass] 29.5 pg 26 - 34 pg [place] MCHC (RBC) [Mass/Vol] 33.5 % 32 - 36 % [place] MCV (RBC) [Entitic vol] 88.1 fL 80 - 98 fL [place] Monocytes (Bld) [#/Vol] 0.5 10*3/uL 0 - 0.8 10*3/uL [place] Monocytes/100 WBC (Bld) 6.0 % 2 - 10 % [place] Platelet mean volume (Bld) [Entitic vol] 9.2 fL 7.4 - 10.4 fL [place] Platelets (Bld) [#/Vol] 293 10*3/uL 140 - 440 10*3/uL [place] RBC (Bld) [#/Vol] 5.19 10*6/uL 4.4 - 5.9 10*6/uL [place] WBC (Bld) [#/Vol] 8.1 10*3/uL 3.6 - 10.7 10*3/uL [place] Test Performed by [facility], [address] [place] [id number] [place] [address] Otheron 08-10-2020 Test Performed by [facility], [address] [place] [id number] [place] [address] Phosphoruson 08-10-2020 Phosphate [Mass/Vol] 3.4 mg/dL 2.5 - 4 .5 mg/dL [place] Potassiumon 08-10-2020 Potassium [Moles/Vol] 4.6 mmol/L 3.5 - 5.1 mmol/L [place] Comment on above: Slightly hemolysed, interpret with caution. Test Performed by [facility], [address] [place] [id number] [place] [address] XR ABDOMEN (KUB) (SINGLE AP VIEW)on 08-09-2020 [facility], [facility] Incoming Radiology Results From [facility] - 08/09/2020 9:22 PM EST Patient Name: RUTHIE CASTILLO ---Diagnostic Radiology--- Exam Date/Time 08/09/2020 21:21:36 EST Exam CR Abdomen AP Ordering Physician Deepa RICHARDS [place] Accession Number [id number] CPT4 Codes 72631 () Reason For Exam NG tube placement Report SINGLE VIEW ABDOMEN CLINICAL INDICATION: NG tube placement TECHNIQUE: Single view abdomen x-ray COMPARISON: None FINDINGS: NG tube tip is in the gastric fundus. A few mildly prominent small bowel loops in the lower abdomen. Surgical drain noted in the pelvis, incompletely visualized. Small amount of gas in the hepatic flexure. IMPRESSION: 1. Nonspecific bowel gas pattern. NG tube tip in the gastric fundus. Report Dictated on --- Final --- Dictated: 08/09/2020 9:19 pm Dictating Physician: MD COE JOHN R Signed Date and Time: 08/09/2020 9:20 pm Signed by: MD COE JOHN R Transcribed Date and Time: 08/09/2020 9:19 [place], [place] Patient Name: RUTHIE CASTILLO ---Diagnostic Radiology--- Exam Date/Time 08/09/2020 21:21:36 EST Exam CR Abdomen AP Ordering Physician Deepa RICHARDS [place] Accession Number [id number] CPT4 Codes 74512 () Reason For Exam NG tube placement Report SINGLE VIEW ABDOMEN CLINICAL INDICATION: NG tube placement TECHNIQUE: Single view abdomen x-ray COMPARISON: None FINDINGS: NG tube tip is in the gastric fundus. A few mildly prominent small bowel loops in the lower abdomen. Surgical drain noted in the pelvis, incompletely visualized. Small amount of gas in the hepatic flexure. IMPRESSION: 1. Nonspecific bowel gas pattern. NG tube tip in the gastric fundus. Report Dictated on --- Final --- Dictated: 08/09/2020 9:19 pm Dictating Physician: MD COE JOHN R Signed Date and Time: 08/09/2020 9:20 pm Signed by: MD COE JOHN R Transcribed Date and Time: 08/09/2020 9:19 [place] Basic Metabolic Panelon 10-0 Anion gap [Moles/Vol] 9 mmol/L [place] Calcium [Mass/Vol] 9.0 mg/dL 8.4 - 10. 4 mg/dL [place] Chloride [Moles/Vol] 103 mmol/L 98 - 10 7 mmol/L [place] CO2 [Moles/Vol] 26 mmol/L 22 - 30 mmol/L [place] Creatinine [Mass/Vol] 0.88 mg/dL 0.52 - 1.25 mg/dL [place] EGFR IF NonAfrican Syrian >90.0 >60 mL/min [place] Comment on above: KDIGO guidelines pro vide the following GFR categories: Stage GFR(ml/min/1.73 m2) Terms G1 >=90 Normal or high G2 60-89 Mildly decreased* G3a 45-59 Mildly to moderately decreased G3b 30-44 Moderately to severely decreased G4 15-29 Severely decreased G5 <15 Kidney failure *Relative to young adult level. In the absence of evidence of kidney damage, neither GFR category G1 nor G2 fulfill the criteria for CKD. The CKD-EPI equation is validated in individuals 18 years of age and older. Currently the best equation for estimating glomerular filtration rate (GFR) from serum creatinine in children is the Bedside Pratt equation. It is less accurate in patients with extremes of muscle mass, restriction of dietary protein, ingestion of creatine, extra-renal metabolism of creatinine, or treatment with medications that affect renal tubular creatinine secretion. GFR/1.73 sq M predicted among blacks MDRD (S/P/Bld) [Vol rate/Area] mL/min/{1.73_m2} >60 mL/min [place] Glucose [Mass/Vol] 87 mg/dL 70 - 100 mg/dL [place] Potassium [Moles/Vol] 3.5 mmol/L 3.5 - 5.1 mmol/L [place] Sodium [Moles/Vol] 138 mmol/L 135 - 145 mmol/L [place] Urea nitrogen [Mass/Vol] 9 mg/dL 7 - 20 mg/dL [place] Test Performed by [facility], [address] [place] [id number] [place] [address] CBC WITH AUTO DIFFERENTIALon 07-01-2020 Absolute Baso # 0.1 10*3/uL 0 - 0.2 10*3/uL [place] Absolute Neut # 6.7 10*3/uL 1.8 - 7 10*3/uL [place] Basophils/100 WBC (Bld) 1.2 % 0 - 2 % [place] Eosinophils (Bld) [#/Vol] 0.5 10*3/uL 0 - 0.5 10*3/uL [place] Eosinophils/100 WBC (Bld) 5.2 % 1 - 6 % [place] Erythrocyte distribution width (RBC) [Ratio] 12.9 % 11.5 - 14.5 % [place] Granulocytes/100 WBC (Bld) 65.2 % 40 - 80 % [place] Hematocrit (Bld) [Volume fraction] 39.1 % Low 40 - 52 % [place] Hemoglobin (Bld) [Mass/Vol] 13.1 g/dL 13 - 18 g/dL [place] Interpretation and review of laboratory results Abnormal [place] Lymphocytes (Bld) [#/Vol] 2.3 10*3/uL 1 - 4.3 10*3/uL [place] Lymphocytes/100 WBC (Bld) 22.0 % 20 - 40 % [place] MCH (RBC) [Entitic mass] 29.5 pg 26 - 34 pg [place] MCHC (RBC) [Mass/Vol] 33.5 % 32 - 36 % [place] MCV (RBC) [Entitic vol] 88.1 fL 80 - 98 fL [place] Monocytes (Bld) [#/Vol] 0.7 10*3/uL 0 - 0.8 10*3/uL [place] Monocytes/100 WBC (Bld) 6.4 % 2 - 10 % [place] Platelet mean volume (Bld) [Entitic vol] 8.4 fL 7.4 - 10.4 fL [place] Platelets (Bld) [#/Vol] 281 10*3/uL 140 - 440 10*3/uL [place] RBC (Bld) [#/Vol] 4.44 10*6/uL 4.4 - 5.9 10*6/uL [place] WBC (Bld) [#/Vol] 10.3 10*3/uL 3.6 - 10.7 10*3/uL [place] Test Performed by [facility], [address] [place] [address] [place] Surgical Pathologyon 10-02-2 020 Sodium [Moles/Vol] SEE BELOW [facility], [place] 1 [id number] [facility] PATHOLOGY AND LABORATORY MEDICINE [address] [place], [place] [address] [address] FINAL SURGICAL PATHOLOGY REPORT NAME: RUTHIE CASTILLO N [id number] : 1990 30 Y Vika INFANTE NO.: [id number] LOCATION: [id number] PROCEDURE 06/28/2020 DATE: SURGEON: SPENCER FONSECA M.D. RECEIVED 06/29/2020 DATE: ATTENDING: SPENCER FONSECA M.D. REPORT DATE: 07/01/2020 COPIES TO: DIAGNOSIS: COLON, PARTIAL COLECTOMY - COLON WITH PERFORATED DIVERTICULITIS, PERICOLIC ABSCESS, AND SEROSITIS HYPERPLASTIC POLYP. MARGINS VIABLE SMT/SMT Signature> S RIANNA TAYLOR M.D. CLINICAL INFORMATION: Not provided. SPECIMEN: COLON, PARTIAL/TOTAL GROSS DESCRIPTION: Received in formalin labeled sigmoid is a segment of colon measuring 26.3 cm in length. There is a stapled resection margin on one end and the other end has an open margin. There is an open circumference of 3.3 cm. The bowel wall appears to be thickened and measures approximately 1.2 cm in thickness. There is attached pericolonic fat. There is an area of possible exudate on the outer surface of the colon that measures 3 cm from the open resection margin. The area of exudate measures 4.5 x 4 cm. Multiple possible diverticula are noted within the specimen. There is a small polypoid lesion measuring 0.2 cm, located 1.5 cm from the open margin. No other gross lesions are identified. Cassette Summary: 1 - stapled resection margin, 2 - open resection margin, 3 to 7 - possible diverticula, 8 and 9 - additional sections of bowel, 10 - possible polyp. [facility] Disclaimer: The following statement applies to all immunohistochemistry, in situ hybridization, molecular studies, and immunofluorescence testing. The use of one or more reagents in the above tests is regulated as an analyte specific reagent (ASR). These tests were developed and their performance characteristics determined by the clinical laboratories of [facility]. They have not been cleared by the US Food and Drug Administration (FDA). The FDA has determined that such clearance or approval is not necessary. All the above immunostains were performed on paraffin embedded tissue. Appropriate positive and negative controls (where applicable) were run in parallel with the patient's specimen; these controls showed expected staining pattern, with acceptable intensity of staining. Immunohistochemical assays have not been validated on decalcified tissues. Results should be interpreted with caution given the raised possibility of false negativity on decalcified specimens. Professional Performing Location: [address] [address]. DEPARTMENT OF PATHOLOGY AND LABORATORY MEDICINE [place], [place] [address] [place] Basic Metabolic Panelon 10-0 Anion gap [Moles/Vol] 9 mmol/L [place] Calcium [Mass/Vol] 9.3 mg/dL 8.4 - 10. 4 mg/dL [place] Chloride [Moles/Vol] 102 mmol/L 98 - 10 7 mmol/L [place] CO2 [Moles/Vol] 26 mmol/L 22 - 30 mmol/L [place] Creatinine [Mass/Vol] 0.84 mg/dL 0.52 - 1.25 mg/dL [place] EGFR IF NonAfrican Syrian >90.0 >60 mL/min [place] Comment on above: KDIGO guidelines pro vide the following GFR categories: Stage GFR(ml/min/1.73 m2) Terms G1 >=90 Normal or high G2 60-89 Mildly decreased* G3a 45-59 Mildly to moderately decreased G3b 30-44 Moderately to severely decreased G4 15-29 Severely decreased G5 <15 Kidney failure *Relative to young adult level. In the absence of evidence of kidney damage, neither GFR category G1 nor G2 fulfill the criteria for CKD. The CKD-EPI equation is validated in individuals 18 years of age and older. Currently the best equation for estimating glomerular filtration rate (GFR) from serum creatinine in children is the Bedside Pratt equation. It is less accurate in patients with extremes of muscle mass, restriction of dietary protein, ingestion of creatine, extra-renal metabolism of creatinine, or treatment with medications that affect renal tubular creatinine secretion. GFR/1.73 sq M predicted among blacks MDRD (S/P/Bld) [Vol rate/Area] mL/min/{1.73_m2} >60 mL/min [place] Glucose [Mass/Vol] 85 mg/dL 70 - 100 mg/dL [place] Potassium [Moles/Vol] 3.7 mmol/L 3.5 - 5.1 mmol/L [place] Sodium [Moles/Vol] 137 mmol/L 135 - 145 mmol/L [place] Urea nitrogen [Mass/Vol] 10 mg/dL 7 - 20 mg/dL [place] Test Performed by [facility], [address] [place] [address] [place] CBC WITH AUTO DIFFERENTIALon 06-30-2020 Absolute Baso # 0.0 10*3/uL 0 - 0.2 10*3/uL [place] Absolute Neut # 7.6 10*3/uL High 1.8 - 7 10*3/uL [place] Basophils/100 WBC (Bld) 0.3 % 0 - 2 % [place] Eosinophils (Bld) [#/Vol] 0.1 10*3/uL 0 - 0.5 10*3/uL [place] Eosinophils/100 WBC (Bld) 1.3 % 1 - 6 % [place] Erythrocyte distribution width (RBC) [Ratio] 13.3 % 11.5 - 14.5 % [place] Granulocytes/100 WBC (Bld) 72.4 % 40 - 80 % [place] Hematocrit (Bld) [Volume fraction] 40.1 % 40 - 52 % [place] Hemoglobin (Bld) [Mass/Vol] 13.5 g/dL 13 - 18 g/dL [place] Interpretation and review of laboratory results Abnormal [place] Lymphocytes (Bld) [#/Vol] 1.9 10*3/uL 1 - 4.3 10*3/uL [place] Lymphocytes/100 WBC (Bld) 18.2 % Low 20 - 40 % [place] MCH (RBC) [Entitic mass] 29.9 pg 26 - 34 pg [place] MCHC (RBC) [Mass/Vol] 33.8 % 32 - 36 % [place] MCV (RBC) [Entitic vol] 88.5 fL 80 - 98 fL [place] Monocytes (Bld) [#/Vol] 0.8 10*3/uL 0 - 0.8 10*3/uL [place] Monocytes/100 WBC (Bld) 7.8 % 2 - 10 % [place] Platelet mean volume (Bld) [Entitic vol] 9.0 fL 7.4 - 10.4 fL [place] Platelets (Bld) [#/Vol] 297 10*3/uL 140 - 440 10*3/uL [place] RBC (Bld) [#/Vol] 4.53 10*6/uL 4.4 - 5.9 10*6/uL [place] WBC (Bld) [#/Vol] 10.5 10*3/uL 3.6 - 10.7 10*3/uL [place] Test Performed by [facility], [address] [place] [address] [place] Basic Metabolic Panelon 09-3 Anion gap [Moles/Vol] 15 mmol/L [place] Calcium [Mass/Vol] 9.7 mg/dL 8.4 - 10. 4 mg/dL [place] Chloride [Moles/Vol] 103 mmol/L 98 - 10 7 mmol/L [place] CO2 [Moles/Vol] 20 mmol/L Low 22 - 30 mmol/L [place] Creatinine [Mass/Vol] 0.82 mg/dL 0.52 - 1.25 mg/dL [place] EGFR IF NonAfrican Syrian >90.0 >60 mL/min [place] Comment on above: KDIGO guidelines pro vide the following GFR categories: Stage GFR(ml/min/1.73 m2) Terms G1 >=90 Normal or high G2 60-89 Mildly decreased* G3a 45-59 Mildly to moderately decreased G3b 30-44 Moderately to severely decreased G4 15-29 Severely decreased G5 <15 Kidney failure *Relative to young adult level. In the absence of evidence of kidney damage, neither GFR category G1 nor G2 fulfill the criteria for CKD. The CKD-EPI equation is validated in individuals 18 years of age and older. Currently the best equation for estimating glomerular filtration rate (GFR) from serum creatinine in children is the Bedside Pratt equation. It is less accurate in patients with extremes of muscle mass, restriction of dietary protein, ingestion of creatine, extra-renal metabolism of creatinine, or treatment with medications that affect renal tubular creatinine secretion. GFR/1.73 sq M predicted among blacks MDRD (S/P/Bld) [Vol rate/Area] mL/min/{1.73_m2} >60 mL/min [place] Glucose [Mass/Vol] 167 mg/dL High 70 - 100 mg/dL [place] Interpretation and review of laboratory results Abnormal [place] Potassium [Moles/Vol] 4.7 mmol/L 3.5 - 5.1 mmol/L [place] Sodium [Moles/Vol] 138 mmol/L 135 - 145 mmol/L [place] Urea nitrogen [Mass/Vol] 12 mg/dL 7 - 20 mg/dL [place] Test Performed by [facility], [address] [place] [address] [place] CBC WITH AUTO DIFFERENTIALon 06-29-2020 Absolute Baso # 0.0 10*3/uL 0 - 0.2 10*3/uL [place] Absolute Neut # 13.1 10*3/uL High 1.8 - 7 10*3/uL [place] Basophils/100 WBC (Bld) 0.1 % 0 - 2 % [place] Eosinophils (Bld) [#/Vol] 0.0 10*3/uL 0 - 0.5 10*3/uL [place] Eosinophils/100 WBC (Bld) 0.0 % Low 1 - 6 % [place] Erythrocyte distribution width (RBC) [Ratio] 13.1 % 11.5 - 14.5 % [place] Granulocytes/100 WBC (Bld) 92.9 % High 40 - 80 % [place] Hematocrit (Bld) [Volume fraction] 41.7 % 40 - 52 % [place] Hemoglobin (Bld) [Mass/Vol] 14.2 g/dL 13 - 18 g/dL [place] Interpretation and review of laboratory results Abnormal [place] Lymphocytes (Bld) [#/Vol] 0.4 10*3/uL Low 1 - 4.3 10*3/uL [place] Lymphocytes/100 WBC (Bld) 3.2 % Low 20 - 40 % [place] MCH (RBC) [Entitic mass] 30.0 pg 26 - 34 pg [place] MCHC (RBC) [Mass/Vol] 34.0 % 32 - 36 % [place] MCV (RBC) [Entitic vol] 88.1 fL 80 - 98 fL [place] Monocytes (Bld) [#/Vol] 0.5 10*3/uL 0 - 0.8 10*3/uL [place] Monocytes/100 WBC (Bld) 3.8 % 2 - 10 % [place] Platelet mean volume (Bld) [Entitic vol] 9.1 fL 7.4 - 10.4 fL [place] Platelets (Bld) [#/Vol] 299 10*3/uL 140 - 440 10*3/uL [place] RBC (Bld) [#/Vol] 4.73 10*6/uL 4.4 - 5.9 10*6/uL [place] WBC (Bld) [#/Vol] 14.1 10*3/uL High 3.6 - 10.7 10*3/uL [place] Test Performed by [address] [address] [place] Basic Metabolic Panelon 09-2 Anion gap [Moles/Vol] 15 mmol/L [place] Calcium [Mass/Vol] 9.5 mg/dL 8.4 - 10. 4 mg/dL [place] Chloride [Moles/Vol] 101 mmol/L 98 - 10 7 mmol/L [place] CO2 [Moles/Vol] 22 mmol/L 22 - 30 mmol/L [place] Creatinine [Mass/Vol] 0.76 mg/dL 0.52 - 1.25 mg/dL [place] EGFR IF NonAfrican Syrian >90.0 >60 mL/min [place] Comment on above: KDIGO guidelines pro vide the following GFR categories: Stage GFR(ml/min/1.73 m2) Terms G1 >=90 Normal or high G2 60-89 Mildly decreased* G3a 45-59 Mildly to moderately decreased G3b 30-44 Moderately to severely decreased G4 15-29 Severely decreased G5 <15 Kidney failure *Relative to young adult level. In the absence of evidence of kidney damage, neither GFR category G1 nor G2 fulfill the criteria for CKD. The CKD-EPI equation is validated in individuals 18 years of age and older. Currently the best equation for estimating glomerular filtration rate (GFR) from serum creatinine in children is the Bedside Pratt equation. It is less accurate in patients with extremes of muscle mass, restriction of dietary protein, ingestion of creatine, extra-renal metabolism of creatinine, or treatment with medications that affect renal tubular creatinine secretion. GFR/1.73 sq M predicted among blacks MDRD (S/P/Bld) [Vol rate/Area] mL/min/{1.73_m2} >60 mL/min [place] Glucose [Mass/Vol] 78 mg/dL 70 - 100 mg/dL [place] Potassium [Moles/Vol] 4.0 mmol/L 3.5 - 5.1 mmol/L [place] Sodium [Moles/Vol] 137 mmol/L 135 - 145 mmol/L [place] Urea nitrogen [Mass/Vol] 9 mg/dL 7 - 20 mg/dL [place] Test Performed by [facility], [address] [place] [address] [place] CBC WITH AUTO DIFFERENTIALon 06-28-2020 Absolute Baso # 0.0 10*3/uL 0 - 0.2 10*3/uL [place] Absolute Neut # 7.3 10*3/uL High 1.8 - 7 10*3/uL [place] Basophils/100 WBC (Bld) 0.3 % 0 - 2 % [place] Eosinophils (Bld) [#/Vol] 0.6 10*3/uL High 0 - 0.5 10*3/uL [place] Eosinophils/100 WBC (Bld) 5.7 % 1 - 6 % [place] Erythrocyte distribution width (RBC) [Ratio] 13.1 % 11.5 - 14.5 % [place] Granulocytes/100 WBC (Bld) 73.2 % 40 - 80 % [place] Hematocrit (Bld) [Volume fraction] 42.7 % 40 - 52 % [place] Hemoglobin (Bld) [Mass/Vol] 14.8 g/dL 13 - 18 g/dL [place] Interpretation and review of laboratory results Abnormal [place] Lymphocytes (Bld) [#/Vol] 1.4 10*3/uL 1 - 4.3 10*3/uL [place] Lymphocytes/100 WBC (Bld) 14.1 % Low 20 - 40 % [place] MCH (RBC) [Entitic mass] 30.4 pg 26 - 34 pg [place] MCHC (RBC) [Mass/Vol] 34.7 % 32 - 36 % [place] MCV (RBC) [Entitic vol] 87.6 fL 80 - 98 fL [place] Monocytes (Bld) [#/Vol] 0.7 10*3/uL 0 - 0.8 10*3/uL [place] Monocytes/100 WBC (Bld) 6.7 % 2 - 10 % [place] Platelet mean volume (Bld) [Entitic vol] 9.2 fL 7.4 - 10.4 fL [place] Platelets (Bld) [#/Vol] 249 10*3/uL 140 - 440 10*3/uL [place] RBC (Bld) [#/Vol] 4.88 10*6/uL 4.4 - 5.9 10*6/uL [place] WBC (Bld) [#/Vol] 9.9 10*3/uL 3.6 - 10.7 10*3/uL [place] Test Performed by [facility], [address] [place] [id number] [place] Basic Metabolic Panelon 09-2 Anion gap [Moles/Vol] 12 mmol/L [place] Calcium [Mass/Vol] 9.0 mg/dL 8.4 - 10. 4 mg/dL [place] Chloride [Moles/Vol] 102 mmol/L 98 - 10 7 mmol/L [place] CO2 [Moles/Vol] 23 mmol/L 22 - 30 mmol/L [place] Creatinine [Mass/Vol] 0.78 mg/dL 0.52 - 1.25 mg/dL [place] EGFR IF NonAfrican Syrian >90.0 >60 mL/min [place] Comment on above: KDIGO guidelines pro vide the following GFR categories: Stage GFR(ml/min/1.73 m2) Terms G1 >=90 Normal or high G2 60-89 Mildly decreased* G3a 45-59 Mildly to moderately decreased G3b 30-44 Moderately to severely decreased G4 15-29 Severely decreased G5 <15 Kidney failure *Relative to young adult level. In the absence of evidence of kidney damage, neither GFR category G1 nor G2 fulfill the criteria for CKD. The CKD-EPI equation is validated in individuals 18 years of age and older. Currently the best equation for estimating glomerular filtration rate (GFR) from serum creatinine in children is the Bedside Pratt equation. It is less accurate in patients with extremes of muscle mass, restriction of dietary protein, ingestion of creatine, extra-renal metabolism of creatinine, or treatment with medications that affect renal tubular creatinine secretion. GFR/1.73 sq M predicted among blacks MDRD (S/P/Bld) [Vol rate/Area] mL/min/{1.73_m2} >60 mL/min [place] Glucose [Mass/Vol] 72 mg/dL 70 - 100 mg/dL [place] Potassium [Moles/Vol] 3.5 mmol/L 3.5 - 5.1 mmol/L [place] Sodium [Moles/Vol] 137 mmol/L 135 - 145 mmol/L [place] Urea nitrogen [Mass/Vol] 8 mg/dL 7 - 20 mg/dL [place] Test Performed by [facility], [address] [place] [address] [place] CBC WITH AUTO DIFFERENTIALon 06-27-2020 Absolute Baso # 0.1 10*3/uL 0 - 0.2 10*3/uL [place] Absolute Neut # 10.2 10*3/uL High 1.8 - 7 10*3/uL [place] Basophils/100 WBC (Bld) 0.6 % 0 - 2 % [place] Eosinophils (Bld) [#/Vol] 0.3 10*3/uL 0 - 0.5 10*3/uL [place] Eosinophils/100 WBC (Bld) 2.2 % 1 - 6 % [place] Erythrocyte distribution width (RBC) [Ratio] 13.2 % 11.5 - 14.5 % [place] Granulocytes/100 WBC (Bld) 81.0 % High 40 - 80 % [place] Hematocrit (Bld) [Volume fraction] 41.0 % 40 - 52 % [place] Hemoglobin (Bld) [Mass/Vol] 13.9 g/dL 13 - 18 g/dL [place] Interpretation and review of laboratory results Abnormal [place] Lymphocytes (Bld) [#/Vol] 1.2 10*3/uL 1 - 4.3 10*3/uL [place] Lymphocytes/100 WBC (Bld) 9.3 % Low 20 - 40 % [place] MCH (RBC) [Entitic mass] 29.9 pg 26 - 34 pg [place] MCHC (RBC) [Mass/Vol] 34.0 % 32 - 36 % [place] MCV (RBC) [Entitic vol] 88.1 fL 80 - 98 fL [place] Monocytes (Bld) [#/Vol] 0.9 10*3/uL High 0 - 0.8 10*3/uL [place] Monocytes/100 WBC (Bld) 6.9 % 2 - 10 % [place] Platelet mean volume (Bld) [Entitic vol] 9.4 fL 7.4 - 10.4 fL [place] Platelets (Bld) [#/Vol] 212 10*3/uL 140 - 440 10*3/uL [place] RBC (Bld) [#/Vol] 4.66 10*6/uL 4.4 - 5.9 10*6/uL [place] WBC (Bld) [#/Vol] 12.6 10*3/uL High 3.6 - 10.7 10*3/uL [place] Test Performed by [facility], [address] [place] [address] [place] Protime-INRon 06-27-2020 INR Coag (PPP) [Relative time] 1.0 {INR} [place], [place] Comment on above: Recommended Anticoag ulant Therapy: SEE BELOW ----- INR of 2.0 - 3.0 : - Prophylaxis of Venous Thrombosis (high-risk surgery) - Treatment of Venous Thrombosis - Treatment of Pulmonary Embolism (Includes tissue heart valves, Acute Myocardial Infarction to prevent systemic embolism, Valvular Heart Disease, and Atrial Fibrillation) ----- INR of 2.5 - 3.5 : - Mechanical Prosthetic Valves (high risk) - If oral anticoagulant therapy is used to prevent Myocardial Infarction PT Coag (PPP) [Time] 10.7 s 9 - 12 s [place], [place] Comment on above: . Test Performed by [address] TYPE AND SCREENon 06-27-2020 Sodium [Moles/Vol] O [place] Sodium [Moles/Vol] Positive [place] Sodium [Moles/Vol] Negative [place] Test Performed by [facility], [facility] [address] [place], [place] [id number] [place] [address] Urinalysison 06-27-2020 Appearance (U) Clear Clear NA [place] Comment on above: . Bilirubin Urine Negative Negative mg/dL [place] Comment on above: . Color (U) Light-Yellow Lt. Yellow NA [place] Comment on above: . Glucose, Ur Normal Normal (<70) mg/dL [place] Comment on above: . Interpretation and review of laboratory results Abnormal [place] Ketones Ql (U) >150 Abnormal Negative mg/dL [place] Comment on above: . LEUKOCYTES, UA Negative Negative Serafin/uL [place] Comment on above: . Nitrite, Urine Negative Negative NA [place] Comment on above: . Occult Blood,Urine Negative Negative mg/dL [place] Comment on above: . pH (U) 5.5 [pH] [place], [place] Comment on above: . Protein (U) [Mass/Vol] Negative Negative mg/dL [place] Comment on above: . Specific [place], Urine 1.025 [place] Comment on above: . Urobilinogen, Urine Normal Normal (0-1) mg/dL [place] Comment on above: . Test Performed by [facility], [address] [place] [id number] [place] Abdomen Pelvis W Contrast on 06-26-2020 Patient Name: RUTHIE CASTILLO ---CT--- Exam Date/Time 06/26/2020 16:33:[address] Abdomen/Pelvis w/ IV Contrast (IV Onl Ordering Physician [id number] CARY Accession Number [id number] CPT4 Codes 63649 (CT Abdomen/Pelvis w/ IV Contrast (IV Onl), Q9967 (CT ISOVUE 370MG/[id number]) Reason For Exam Left lower quadrant abdominal pain with some guarding. Reported diverticulitis with abscess as a transfer Report CT of the abdomen and pelvis with intravenous contrast, 06/26/2020. Reason for examination: Left lower quadrant pain. History of Crohn's disease. COMPARISON: May 08, 2020. TECHNIQUE: 3 mm axial images were obtained through the abdomen and pelvis following intravenous administration of 75 mL of Isovue-370. No oral contrast was administered. Coronal and sagittal reconstructions were created and reviewed. FINDINGS: There is mild scarring or atelectasis in the lung bases. ABDOMEN: No lesion is identified in the liver, spleen, pancreas, adrenal glands, or kidneys. There is a small amount of free fluid anterior to the left psoas muscle, tracking superiorly from the pelvis. There are a few shotty mesenteric and retroperitoneal lymph nodes which are presumably reactive in nature. No sharon lymphadenopathy is noted. There is high attenuation material in the dependent portion of the gallbladder which may represent sludge or vicarious excretion of contrast. There is no biliary ductal dilation. Pelvis: There are inflammatory changes adjacent to the proximal to mid sigmoid colon with numerous diverticula in the area. Findings are suggestive of diverticulitis. There is a small focus of extraluminal gas in the left pelvis anteriorly, suggestive of the presence of a microperforation. There is a small amount of fluid in this area, measuring approximately 2.8 x 2.2 cm in maximum transverse dimensions. These findings are new since the previous study. 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 Possible fistulous communication with the dome of the bladder is also noted. No mass or lymphadenopathy is noted. There are degenerative changes in the lower thoracic spine. IMPRESSION: Inflammatory changes in the left pelvis with probable diverticulitis and microperforation. Small amount of fluid in the left lower pelvis with some fluid tracking superiorly along the anterior aspect of the left psoas muscle. 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 There also appears to be fistulous communication to the dome of the bladder. Report Dictated on --- Final --- Dictated: 06/26/2020 4:53 pm Dictating Physician: MD RIDER JOE M Signed Date and Time: 06/26/2020 5:00 pm Signed by: MD RIDER JOE M Transcribed Date and Time: 06/26/2020 4:53 [place] Incoming Radiology Results From [facility] - 06/26/2020 5:01 PM EDT Patient Name: RUTHIE CASTILLO ---CT--- Exam Date/Time 06/26/2020 16:33:[address] Abdomen/Pelvis w/ IV Contrast (IV Onl Ordering Physician [id number] CARY Accession Number [id number] CPT4 Codes 28960 (CT Abdomen/Pelvis w/ IV Contrast (IV Onl), Q9967 (CT ISOVUE 370MG/[id number]) Reason For Exam Left lower quadrant abdominal pain with some guarding. Reported diverticulitis with abscess as a transfer Report CT of the abdomen and pelvis with intravenous contrast, 06/26/2020. Reason for examination: Left lower quadrant pain. History of Crohn's disease. COMPARISON: May 08, 2020. TECHNIQUE: 3 mm axial images were obtained through the abdomen and pelvis following intravenous administration of 75 mL of Isovue-370. No oral contrast was administered. Coronal and sagittal reconstructions were created and reviewed. FINDINGS: There is mild scarring or atelectasis in the lung bases. ABDOMEN: No lesion is identified in the liver, spleen, pancreas, adrenal glands, or kidneys. There is a small amount of free fluid anterior to the left psoas muscle, tracking superiorly from the pelvis. There are a few shotty mesenteric and retroperitoneal lymph nodes which are presumably reactive in nature. No sharon lymphadenopathy is noted. There is high attenuation material in the dependent portion of the gallbladder which may represent sludge or vicarious excretion of contrast. There is no biliary ductal dilation. Pelvis: There are inflammatory changes adjacent to the proximal to mid sigmoid colon with numerous diverticula in the area. Findings are suggestive of diverticulitis. There is a small focus of extraluminal gas in the left pelvis anteriorly, suggestive of the presence of a microperforation. There is a small amount of fluid in this area, measuring approximately 2.8 x 2.2 cm in maximum transverse dimensions. These findings are new since the previous study. 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 Possible fistulous communication with the dome of the bladder is also noted. No mass or lymphadenopathy is noted. There are degenerative changes in the lower thoracic spine. IMPRESSION: Inflammatory changes in the left pelvis with probable diverticulitis and microperforation. Small amount of fluid in the left lower pelvis with some fluid tracking superiorly along the anterior aspect of the left psoas muscle. 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 There also appears to be fistulous communication to the dome of the bladder. Report Dictated on --- Final --- Dictated: 06/26/2020 4:53 pm Dictating Physician: MD RIDER JOE M Signed Date and Time: 06/26/2020 5:00 pm Signed by: MD RIDER JOE M Transcribed Date and Time: 06/26/2020 4:53 [place] Comprehensive Metabolic Pane deja 06-26-2020 Albumin [Mass/Vol] 4.2 g/dL 3.5 - 5 g/dL [place] ALP [Catalytic activity/Vol] 54 U/L 38 - 126 U/L [place] ALT [Catalytic activity/Vol] 27 U/L 0 - 49 U/L [place] Comment on above: The ALT test is perf ormed by an updated assay method. Please note that the reference intervals have been changed and are now sex specific. Anion gap [Moles/Vol] 10 mmol/L [place], [place] AST [Catalytic activity/Vol] 27 U/L 15 - 46 U/L [place] Bilirubin Ql (U) 2.2 mg/dL High 0.2 - 1.3 mg/dL [place] Calcium [Mass/Vol] 9.1 mg/dL 8.4 - 10. 4 mg/dL [place] Chloride [Moles/Vol] 106 mmol/L 98 - 10 7 mmol/L [place] CO2 [Moles/Vol] 24 mmol/L 22 - 30 mmol/L [place] Creatinine [Mass/Vol] 0.83 mg/dL 0.52 - 1.25 mg/dL [place] EGFR IF NonAfrican Syrian >90.0 >60 mL/min [place] Comment on above: KDIGO guidelines pro vide the following GFR categories: Stage GFR(ml/min/1.73 m2) Terms G1 >=90 Normal or high G2 60-89 Mildly decreased* G3a 45-59 Mildly to moderately decreased G3b 30-44 Moderately to severely decreased G4 15-29 Severely decreased G5 <15 Kidney failure *Relative to young adult level. In the absence of evidence of kidney damage, neither GFR category G1 nor G2 fulfill the criteria for CKD. The CKD-EPI equation is validated in individuals 18 years of age and older. Currently the best equation for estimating glomerular filtration rate (GFR) from serum creatinine in children is the Bedside Pratt equation. It is less accurate in patients with extremes of muscle mass, restriction of dietary protein, ingestion of creatine, extra-renal metabolism of creatinine, or treatment with medications that affect renal tubular creatinine secretion. GFR/1.73 sq M predicted among blacks MDRD (S/P/Bld) [Vol rate/Area] mL/min/{1.73_m2} >60 mL/min [place] Glucose [Mass/Vol] 77 mg/dL 70 - 100 mg/dL [place] Interpretation and review of laboratory results Abnormal [place] Potassium [Moles/Vol] 4.0 mmol/L 3.5 - 5.1 mmol/L [place] Protein [Mass/Vol] 7.6 g/dL 6.3 - 8.2 g/dL [place] Sodium [Moles/Vol] 140 mmol/L 135 - 145 mmol/L [place] Urea nitrogen [Mass/Vol] 8 mg/dL 7 - 20 mg/dL [place] Hemogram (CBC) w/Auto Diffon 06-26-2020 Absolute Baso # 0.1 10*3/uL 0 - 0.2 10*3/uL [place] Absolute Neut # 9.1 10*3/uL High 1.8 - 7 10*3/uL [place] Basophils/100 WBC (Bld) 0.8 % 0 - 2 % [place] Eosinophils (Bld) [#/Vol] 0.4 10*3/uL 0 - 0.5 10*3/uL [place] Eosinophils/100 WBC (Bld) 3.4 % 1 - 6 % [place] Erythrocyte distribution width (RBC) [Ratio] 13.3 % 11.5 - 14.5 % [place] Granulocytes/100 WBC (Bld) 75.4 % 40 - 80 % [place] Hematocrit (Bld) [Volume fraction] 41.5 % 40 - 52 % [place] Hemoglobin (Bld) [Mass/Vol] 13.8 g/dL 13 - 18 g/dL [place] Interpretation and review of laboratory results Abnormal [place] Lymphocytes (Bld) [#/Vol] 1.6 10*3/uL 1 - 4.3 10*3/uL [place] Lymphocytes/100 WBC (Bld) 12.9 % Low 20 - 40 % [place] MCH (RBC) [Entitic mass] 29.2 pg 26 - 34 pg [place] MCHC (RBC) [Mass/Vol] 33.3 % 32 - 36 % [place] MCV (RBC) [Entitic vol] 87.8 fL 80 - 98 fL [place] Monocytes (Bld) [#/Vol] 0.9 10*3/uL High 0 - 0.8 10*3/uL [place] Monocytes/100 WBC (Bld) 7.5 % 2 - 10 % [place] Platelet mean volume (Bld) [Entitic vol] 8.8 fL 7.4 - 10.4 fL [place] Platelets (Bld) [#/Vol] 198 10*3/uL 140 - 440 10*3/uL [place] RBC (Bld) [#/Vol] 4.72 10*6/uL 4.4 - 5.9 10*6/uL [place] WBC (Bld) [#/Vol] 12.1 10*3/uL High 3.6 - 10.7 10*3/uL [place] Test Performed by [address] [address] [place] Lactic Acid, Plasmaon 2019 Lactate [Moles/Vol] 1.1 mmol/L 0.7 - 2 mmol/L [place] Test Performed by [address] [address] [place] Lipaseon 06-26-2020 Lipase [Catalytic activity/Vol] 41 U/L 23 - 300 U/L [place] Otheron 06-26-2020 Test Performed by [address] [address] [place] CBCon 05-10-2020 Erythrocyte distribution width (RBC) [Ratio] 14.6 % High 11.5 - 14.5 % [place] Hematocrit (Bld) [Volume fraction] 45.0 % 40 - 52 % [place] Hemoglobin (Bld) [Mass/Vol] 15.0 g/dL 13 - 18 g/dL [place] Interpretation and review of laboratory results Abnormal [place] MCH (RBC) [Entitic mass] 30.3 pg 26 - 34 pg [place] MCHC (RBC) [Mass/Vol] 33.3 % 32 - 36 % [place] MCV (RBC) [Entitic vol] 91.1 fL 80 - 98 fL [place] Platelet mean volume (Bld) [Entitic vol] 9.6 fL 7.4 - 10.4 fL [place] Platelets (Bld) [#/Vol] 280 10*3/uL 140 - 440 10*3/uL [place] RBC (Bld) [#/Vol] 4.94 10*6/uL 4.4 - 5.9 10*6/uL [place] WBC (Bld) [#/Vol] 21.2 10*3/uL High 3.6 - 10.7 10*3/uL [place] Test Performed by [facility], [address] [place] [address] [place] MRI ABDOMEN W WO CONTRASTon 05-10-2020 Patient Name: RUTHIE CASTILLO ---MRI--- Exam Date/Time 05/10/2020 09:51:32 EDT Exam MRI Abdomen w/ + w/o Contrast Ordering Physician [id number] -MISHA HENDERSON Accession Number [id number] CPT4 Codes 84359 () Reason For Exam fistulas/crohns Addendum ---There are multiple sigmoid diverticulae and attendant inflammatory changes consistent with diverticulitis. There are inflammatory strands on the antimesenteric border extending to the bladder dome. Report Dictated on ---Final Addendum--- Dictated: 05/10/2020 11:52 am Addendum Dictating Physician: MD DESAI B NELSON Signed Date and Time: 05/10/2020 11:54 am Signed by: MD DESAI B NELSON Transcribed Date and Time: 05/10/2020 11:52 Report EXAMINATION: MRI of the abdomen without contrast COMPARISON: None. REASON FOR STUDY: Intractable nausea and vomiting. TECHNIQUE: Axial and coronal spin and gradient-echo T1 and T2-weighted as well as diffusion-weighted images were obtained before and after intravenous infusion of 12 mL of Gadavist and 1350 mL of enteric Volumen. FINDINGS: Solid Organs: Spleen, pancreas and adrenal glands appear normal. Biliary Tree: Hepatic parenchyma appears normal. Biliary tree is not appreciably dilated. Gallbladder appears normal. System: Kidneys appear normal. The ureters are not appreciably dilated. GI System: Stomach and bowel loops appear normal. Peritoneum, Retroperitoneum And Mesentery: No inflammatory change, free fluid or abnormal mass is shown. Vasculature: No abnormality seen. Musculoskeletal: Osseous structures appear intact. No extraskeletal soft tissue abnormality noted. Lung Bases: No abnormality noted. CONCLUSIONS: No evidence of bowel obstruction or inflammatory bowel disease. Report Dictated on --- Final --- Dictated: 05/10/2020 10:06 am Dictating Physician: MD DESAI B NELSON Signed Date and Time: 05/10/2020 10:28 am Signed by: MD DESAI B NELSON Transcribed Date and Time: 05/10/2020 10:06 [place] Incoming Radiology Results From [facility] - 05/10/2020 11:55 AM EDT Patient Name: RUTHIE CASTILLO ---MRI--- Exam Date/Time 05/10/2020 09:51:32 EDT Exam MRI Abdomen w/ + w/o Contrast Ordering Physician [id number] MISHA VERMA Accession Number [id number] CPT4 Codes 65694 () Reason For Exam fistulas/crohns Addendum ---There are multiple sigmoid diverticulae and attendant inflammatory changes consistent with diverticulitis. There are inflammatory strands on the antimesenteric border extending to the bladder dome. Report Dictated on ---Final Addendum--- Dictated: 05/10/2020 11:52 am Addendum Dictating Physician: MD DESAI B NELSON Signed Date and Time: 05/10/2020 11:54 am Signed by: MD DESAI B NELSON Transcribed Date and Time: 05/10/2020 11:52 Report EXAMINATION: MRI of the abdomen without contrast COMPARISON: None. REASON FOR STUDY: Intractable nausea and vomiting. TECHNIQUE: Axial and coronal spin and gradient-echo T1 and T2-weighted as well as diffusion-weighted images were obtained before and after intravenous infusion of 12 mL of Gadavist and 1350 mL of enteric Volumen. FINDINGS: Solid Organs: Spleen, pancreas and adrenal glands appear normal. Biliary Tree: Hepatic parenchyma appears normal. Biliary tree is not appreciably dilated. Gallbladder appears normal. System: Kidneys appear normal. The ureters are not appreciably dilated. GI System: Stomach and bowel loops appear normal. Peritoneum, Retroperitoneum And Mesentery: No inflammatory change, free fluid or abnormal mass is shown. Vasculature: No abnormality seen. Musculoskeletal: Osseous structures appear intact. No extraskeletal soft tissue abnormality noted. Lung Bases: No abnormality noted. CONCLUSIONS: No evidence of bowel obstruction or inflammatory bowel disease. Report Dictated on --- Final --- Dictated: 05/10/2020 10:06 am Dictating Physician: MD DESAI B NELSON Signed Date and Time: 05/10/2020 10:28 am Signed by: MD DESAI B NELSON Transcribed Date and Time: 05/10/2020 10:06 [place] Basic Metabolic Panel w/ Ref jane to MGon 05-09-2020 Anion gap [Moles/Vol] 10 mmol/L [place] Calcium [Mass/Vol] 9.0 mg/dL 8.4 - 10. 4 mg/dL [place] Chloride [Moles/Vol] 103 mmol/L 98 - 10 7 mmol/L [place] CO2 [Moles/Vol] 24 mmol/L 22 - 30 mmol/L [place] Creatinine [Mass/Vol] 0.62 mg/dL 0.52 - 1.25 mg/dL [place] EGFR IF NonAfrican Syrian >90.0 >60 mL/min [place] Comment on above: KDIGO guidelines pro vide the following GFR categories: Stage GFR(ml/min/1.73 m2) Terms G1 >=90 Normal or high G2 60-89 Mildly decreased* G3a 45-59 Mildly to moderately decreased G3b 30-44 Moderately to severely decreased G4 15-29 Severely decreased G5 <15 Kidney failure *Relative to young adult level. In the absence of evidence of kidney damage, neither GFR category G1 nor G2 fulfill the criteria for CKD. The CKD-EPI equation is validated in individuals 18 years of age and older. Currently the best equation for estimating glomerular filtration rate (GFR) from serum creatinine in children is the Bedside Pratt equation. It is less accurate in patients with extremes of muscle mass, restriction of dietary protein, ingestion of creatine, extra-renal metabolism of creatinine, or treatment with medications that affect renal tubular creatinine secretion. GFR/1.73 sq M predicted among blacks MDRD (S/P/Bld) [Vol rate/Area] mL/min/{1.73_m2} >60 mL/min [place] Glucose [Mass/Vol] 110 mg/dL High 70 - 100 mg/dL [place] Interpretation and review of laboratory results Abnormal [place] Potassium [Moles/Vol] 4.5 mmol/L 3.5 - 5.1 mmol/L [place] Sodium [Moles/Vol] 137 mmol/L 135 - 145 mmol/L [place] Urea nitrogen [Mass/Vol] 18 mg/dL 7 - 20 mg/dL [place] C-Reactive Proteinon 020 CRP [Mass/Vol] mg/L 0 - 6 mg/L [place] Comment on above: . CBC auto differentialon 04-30 Absolute Baso # 0.0 10*3/uL 0 - 0.2 10*3/uL [place] Absolute Neut # 13.1 10*3/uL High 1.8 - 7 10*3/uL [place] Basophils/100 WBC (Bld) 0.3 % 0 - 2 % [place] Eosinophils (Bld) [#/Vol] 0.1 10*3/uL 0 - 0.5 10*3/uL [place] Eosinophils/100 WBC (Bld) 0.6 % Low 1 - 6 % [place] Erythrocyte distribution width (RBC) [Ratio] 14.5 % 11.5 - 14.5 % [place] Granulocytes/100 WBC (Bld) 90.0 % High 40 - 80 % [place] Hematocrit (Bld) [Volume fraction] 44.3 % 40 - 52 % [place] Hemoglobin (Bld) [Mass/Vol] 14.6 g/dL 13 - 18 g/dL [place] Interpretation and review of laboratory results Abnormal [place] Lymphocytes (Bld) [#/Vol] 1.0 10*3/uL 1 - 4.3 10*3/uL [place] Lymphocytes/100 WBC (Bld) 7.2 % Low 20 - 40 % [place] MCH (RBC) [Entitic mass] 29.9 pg 26 - 34 pg [place] MCHC (RBC) [Mass/Vol] 32.9 % 32 - 36 % [place] MCV (RBC) [Entitic vol] 90.6 fL 80 - 98 fL [place] Monocytes (Bld) [#/Vol] 0.3 10*3/uL 0 - 0.8 10*3/uL [place] Monocytes/100 WBC (Bld) 1.9 % Low 2 - 10 % [place] Platelet mean volume (Bld) [Entitic vol] 9.1 fL 7.4 - 10.4 fL [place] Platelets (Bld) [#/Vol] 236 10*3/uL 140 - 440 10*3/uL [place] RBC (Bld) [#/Vol] 4.89 10*6/uL 4.4 - 5.9 10*6/uL [place] WBC (Bld) [#/Vol] 14.6 10*3/uL High 3.6 - 10.7 10*3/uL [place] Test Performed by [facility], [address] [place] [address] [place] Lactic acid, plasmaon 2019 Lactate [Moles/Vol] 1.6 mmol/L 0.7 - 2 mmol/L [place] Test Performed by [facility], [address] [place] [address] [place] Otheron 05-09-2020 Test Performed by [facility], [place] [address] [place] Sedimentation Rateon 05-09-2 020 Sed Rate 8 mm/h 0 - 10 mm/h [place] Test Performed by [facility], [address] [place] [address], BENITO Carpio [address] [place] Basic Metabolic Panelon Anion gap [Moles/Vol] 10 mmol/L [place] Calcium [Mass/Vol] 9.5 mg/dL 8.4 - 10. 4 mg/dL [place] Chloride [Moles/Vol] 103 mmol/L 98 - 10 7 mmol/L [place] CO2 [Moles/Vol] 22 mmol/L 22 - 30 mmol/L [place] Creatinine [Mass/Vol] 0.56 mg/dL 0.52 - 1.25 mg/dL [place] EGFR IF NonAfrican Syrian >90.0 >60 mL/min [place] Comment on above: KDIGO guidelines pro vide the following GFR categories: Stage GFR(ml/min/1.73 m2) Terms G1 >=90 Normal or high G2 60-89 Mildly decreased* G3a 45-59 Mildly to moderately decreased G3b 30-44 Moderately to severely decreased G4 15-29 Severely decreased G5 <15 Kidney failure *Relative to young adult level. In the absence of evidence of kidney damage, neither GFR category G1 nor G2 fulfill the criteria for CKD. The CKD-EPI equation is validated in individuals 18 years of age and older. Currently the best equation for estimating glomerular filtration rate (GFR) from serum creatinine in children is the Bedside Pratt equation. It is less accurate in patients with extremes of muscle mass, restriction of dietary protein, ingestion of creatine, extra-renal metabolism of creatinine, or treatment with medications that affect renal tubular creatinine secretion. GFR/1.73 sq M predicted among blacks MDRD (S/P/Bld) [Vol rate/Area] mL/min/{1.73_m2} >60 mL/min [place] Glucose [Mass/Vol] 141 mg/dL High 70 - 100 mg/dL [place] Potassium [Moles/Vol] 4.5 mmol/L 3.5 - 5.1 mmol/L [place] Sodium [Moles/Vol] 136 mmol/L 135 - 145 mmol/L [place] Urea nitrogen [Mass/Vol] 17 mg/dL 7 - 20 mg/dL [place] CBC Auto Differentialon 08-0 Absolute Baso # 0.1 10*3/uL 0 - 0.2 10*3/uL [place] Absolute Neut # 12.9 10*3/uL High 1.8 - 7 10*3/uL [place] Basophils/100 WBC (Bld) 0.5 % 0 - 2 % [place] Eosinophils (Bld) [#/Vol] 0.2 10*3/uL 0 - 0.5 10*3/uL [place] Eosinophils/100 WBC (Bld) 1.3 % 1 - 6 % [place] Erythrocyte distribution width (RBC) [Ratio] 14.5 % 11.5 - 14.5 % [place] Granulocytes/100 WBC (Bld) 84.7 % High 40 - 80 % [place] Hematocrit (Bld) [Volume fraction] 45.6 % 40 - 52 % [place] Hemoglobin (Bld) [Mass/Vol] 15.1 g/dL 13 - 18 g/dL [place] Interpretation and review of laboratory results Abnormal [place] Lymphocytes (Bld) [#/Vol] 1.4 10*3/uL 1 - 4.3 10*3/uL [place] Lymphocytes/100 WBC (Bld) 9.3 % Low 20 - 40 % [place] MCH (RBC) [Entitic mass] 29.9 pg 26 - 34 pg [place] MCHC (RBC) [Mass/Vol] 33.1 % 32 - 36 % [place] MCV (RBC) [Entitic vol] 90.2 fL 80 - 98 fL [place] Monocytes (Bld) [#/Vol] 0.6 10*3/uL 0 - 0.8 10*3/uL [place] Monocytes/100 WBC (Bld) 4.2 % 2 - 10 % [place] Platelet mean volume (Bld) [Entitic vol] 8.9 fL 7.4 - 10.4 fL [place] Platelets (Bld) [#/Vol] 281 10*3/uL 140 - 440 10*3/uL [place] RBC (Bld) [#/Vol] 5.06 10*6/uL 4.4 - 5.9 10*6/uL [place] WBC (Bld) [#/Vol] 14.7 10*3/uL High 3.6 - 10.7 10*3/uL [place] Test Performed by [facility], [address] [place] [id number] [place] [address] CT ABDOMEN PELVIS W CONTRAST on 05-08-2020 Patient Name: RUTHIE CASTILLO ---CT--- Exam Date/Time 05/08/2020 21:16:[address] Abdomen/Pelvis w/ IV Contrast (IV Onl Ordering Physician JAMILAH OAKLEY LAURA Accession Number [id number] CPT4 Codes 18474 (CT Abdomen/Pelvis w/ IV Contrast (IV Onl), Q9967 (CT ISOVUE [id number]) Reason For Exam Abdominal pain with history of Crohn's; states this pain is much worse than his Crohn's Report CT ABDOMEN AND PELVIS CLINICAL INDICATION: Abdominal pain with history of Crohn's; states this pain is much worse than his Crohn's TECHNIQUE: CT scan of the abdomen and pelvis with IV contrast. Multiplanar reformations. COMPARISON: 04/27/2020 FINDINGS: Lung bases are clear. No free intraperitoneal gas seen. Diffuse hepatic steatosis noted. No significant focal hepatic lesion seen. Gallbladder and biliary tree appear unremarkable. Spleen shows no significant abnormality. Adrenal glands show no significant abnormality. Kidneys show no significant abnormality. Pancreas shows no significant abnormality. Abdominal aorta is nonaneurysmal. The appendix appears normal. No bowel obstruction. Possible fistulas above the level of the bladder, just to the right of midline, not significantly changed in appearance. This involves sigmoid colon and ileum, may be involving bladder as well, though no gas is seen in the bladder. No abscess apparent. IMPRESSION: 1. Possible fistulas above the level of the bladder, to the right of midline, not significantly changed. Ileum, sigmoid colon, and possibly bladder involved though no gas is seen in the bladder. No abscess seen. Report Dictated on --- Final --- Dictated: 05/08/2020 9:58 pm Dictating Physician: MD COE JOHN R Signed Date and Time: 05/08/2020 10:03 pm Signed by: MD COE JOHN R Transcribed Date and Time: 05/08/2020 9:58 [facility]- [place], [place] [facility], [facility] Incoming Radiology Results From [facility] - 05/08/2020 10:04 PM EDT Patient Name: RUTHIE CASTILLO ---CT--- Exam Date/Time 05/08/2020 21:16:[address] Abdomen/Pelvis w/ IV Contrast (IV Onl Ordering Physician JAMILAH OAKLEY, MARILY Accession Number [id number] CPT4 Codes 52774 (CT Abdomen/Pelvis w/ IV Contrast (IV Onl), Q9967 (CT ISOVUE [id number]) Reason For Exam Abdominal pain with history of Crohn's; states this pain is much worse than his Crohn's Report CT ABDOMEN AND PELVIS CLINICAL INDICATION: Abdominal pain with history of Crohn's; states this pain is much worse than his Crohn's TECHNIQUE: CT scan of the abdomen and pelvis with IV contrast. Multiplanar reformations. COMPARISON: 04/27/2020 FINDINGS: Lung bases are clear. No free intraperitoneal gas seen. Diffuse hepatic steatosis noted. No significant focal hepatic lesion seen. Gallbladder and biliary tree appear unremarkable. Spleen shows no significant abnormality. Adrenal glands show no significant abnormality. Kidneys show no significant abnormality. Pancreas shows no significant abnormality. Abdominal aorta is nonaneurysmal. The appendix appears normal. No bowel obstruction. Possible fistulas above the level of the bladder, just to the right of midline, not significantly changed in appearance. This involves sigmoid colon and ileum, may be involving bladder as well, though no gas is seen in the bladder. No abscess apparent. IMPRESSION: 1. Possible fistulas above the level of the bladder, to the right of midline, not significantly changed. Ileum, sigmoid colon, and possibly bladder involved though no gas is seen in the bladder. No abscess seen. Report Dictated on --- Final --- Dictated: 05/08/2020 9:58 pm Dictating Physician: MD COE JOHN R Signed Date and Time: 05/08/2020 10:03 pm Signed by: MD COE JOHN R Transcribed Date and Time: 05/08/2020 9:58 [place] Hepatic Function Panelon Albumin [Mass/Vol] 4.6 g/dL 3.5 - 5 g/dL [place] ALP [Catalytic activity/Vol] 89 U/L 38 - 126 U/L [place] ALT [Catalytic activity/Vol] 45 U/L 0 - 49 U/L [place] Comment on above: The ALT test is perf ormed by an updated assay method. Please note that the reference intervals have been changed and are now sex specific. AST [Catalytic activity/Vol] 36 U/L 15 - 46 U/L [place] Bilirubin Ql (U) 0.7 mg/dL 0.2 - 1.3 mg/dL [place] Bilirubin.direct [Mass/Vol] 0.0 mg/dL 0 - 0.3 mg/dL [place] Protein [Mass/Vol] 7.7 g/dL 6.3 - 8.2 g/dL [place] Lactic Acid, Plasmaon 2019 Lactate [Moles/Vol] 2.1 mmol/L Critically high 0.7 - 2 mmol/L [place] Comment on above: Critical Panic Lacta te has fallen below the [facility] CCL/ED Panic Call Protocol. For [facility] ED patients ONLY the Lactate Levels greater than 2.0 and less than or equal to 4.0 mmol/L fall under the Panic Call Policy. Lipaseon 05-08-2020 Lipase [Catalytic activity/Vol] 93 U/L 23 - 300 U/L [place] Otheron 05-08-2020 Interpretation and review of laboratory results Abnormal [place] Test Performed by [facility], [address] [place] [address] [place] Urinalysison 05-08-2020 Appearance (U) Clear Clear NA [place] Comment on above: . Bilirubin Urine Negative Negative mg/dL [place] Comment on above: . Color (U) Colorless Lt. Yellow NA [place] Comment on above: . Glucose, Ur Normal Normal (<70) mg/dL [place] Comment on above: . Ketones Ql (U) Negative Negative mg/dL [place] Comment on above: . LEUKOCYTES, UA Negative Negative Serafin/uL [place] Comment on above: . Nitrite, Urine Negative Negative NA [place] Comment on above: . Occult Blood,Urine Negative Negative mg/dL [place] Comment on above: . pH (U) 6.5 [pH] [place] Comment on above: . Protein (U) [Mass/Vol] Negative Negative mg/dL [place] Comment on above: . Specific [place], Urine 1.008 [place] Comment on above: . Urobilinogen, Urine Normal Normal (0-1) mg/dL [place] Comment on above: . Test Performed by [facility], [address] [place] [address] [place] CBCon 04-28-2020 Erythrocyte distribution width (RBC) [Ratio] 14.5 % 11.5 - 14.5 % [place] Hematocrit (Bld) [Volume fraction] 43.4 % 40 - 52 % [place] Hemoglobin (Bld) [Mass/Vol] 14.6 g/dL 13 - 18 g/dL [place] Interpretation and review of laboratory results Abnormal [place] MCH (RBC) [Entitic mass] 29.9 pg 26 - 34 pg [place] MCHC (RBC) [Mass/Vol] 33.7 % 32 - 36 % [place] MCV (RBC) [Entitic vol] 88.6 fL 80 - 98 fL [place] Platelet mean volume (Bld) [Entitic vol] 9.5 fL 7.4 - 10.4 fL [place] Platelets (Bld) [#/Vol] 264 10*3/uL 140 - 440 10*3/uL [place] RBC (Bld) [#/Vol] 4.90 10*6/uL 4.4 - 5.9 10*6/uL [place] WBC (Bld) [#/Vol] 10.8 10*3/uL High 3.6 - 10.7 10*3/uL [place] Test Performed by [facility], [place] [address] [place] Comprehensive Metabolic Pane l w/ Reflex to MGon 04-28-2020 Albumin [Mass/Vol] 4.5 g/dL 3.5 - 5 g/dL [place] ALP [Catalytic activity/Vol] 65 U/L 38 - 126 U/L [place] ALT [Catalytic activity/Vol] 27 U/L 0 - 49 U/L [place] Comment on above: The ALT test is perf ormed by an updated assay method. Please note that the reference intervals have been changed and are now sex specific. Anion gap [Moles/Vol] 9 mmol/L [place] AST [Catalytic activity/Vol] 30 U/L 15 - 46 U/L [place] Bilirubin Ql (U) 0.6 mg/dL 0.2 - 1.3 mg/dL [place] Calcium [Mass/Vol] 9.3 mg/dL 8.4 - 10. 4 mg/dL [place] Chloride [Moles/Vol] 105 mmol/L 98 - 10 7 mmol/L [place] CO2 [Moles/Vol] 23 mmol/L 22 - 30 mmol/L [place] Creatinine [Mass/Vol] 0.66 mg/dL 0.52 - 1.25 mg/dL [place] EGFR IF NonAfrican [place] >90.0 >60 mL/min [place] Comment on above: KDIGO guidelines pro vide the following GFR categories: Stage GFR(ml/min/1.73 m2) Terms G1 >=90 Normal or high G2 60-89 Mildly decreased* G3a 45-59 Mildly to moderately decreased G3b 30-44 Moderately to severely decreased G4 15-29 Severely decreased G5 <15 Kidney failure *Relative to young adult level. In the absence of evidence of kidney damage, neither GFR category G1 nor G2 fulfill the criteria for CKD. The CKD-EPI equation is validated in individuals 18 years of age and older. Currently the best equation for estimating glomerular filtration rate (GFR) from serum creatinine in children is the Bedside Pratt equation. It is less accurate in patients with extremes of muscle mass, restriction of dietary protein, ingestion of creatine, extra-renal metabolism of creatinine, or treatment with medications that affect renal tubular creatinine secretion. GFR/1.73 sq M predicted among blacks MDRD (S/P/Bld) [Vol rate/Area] mL/min/{1.73_m2} >60 mL/min [place] Glucose [Mass/Vol] 102 mg/dL High 70 - 100 mg/dL [place] Interpretation and review of laboratory results Abnormal [place] Potassium [Moles/Vol] 3.9 mmol/L 3.5 - 5.1 mmol/L [place] Protein [Mass/Vol] 7.7 g/dL 6.3 - 8.2 g/dL [place] Sodium [Moles/Vol] 137 mmol/L 135 - 145 mmol/L [place] Urea nitrogen [Mass/Vol] 8 mg/dL 7 - 20 mg/dL [place] Test Performed by [place] [id number] [employer] [place], [place] [id number] [place] [address] Add On Lab Teston 04-27-2020 Sodium [Moles/Vol] Accepted [place] Comment on above: Specimen available & acceptable for analysis. Test Performed by [place] [address] [employer] [place], [place] [id number] [place] [address] C-Reactive Proteinon 020 CRP [Mass/Vol] 12.7 mg/L High 0 - 6 mg/L [place] Comment on above: . Test Performed by [facility], [address] [place] [address] [place] CRP [Mass/Vol] 12.6 mg/L High 0 - 6 mg/L [place] Comment on above: . CT ABDOMEN PELVIS W CONTRAST on 04-27-2020 [facility] Incoming Radiology Results From [facility] - 04/27/2020 2:19 PM EDT Patient Name: RUTHIE CASTILLO ---CT--- Exam Date/Time 04/27/2020 13:49:[address] Abdomen/Pelvis w/ IV Contrast (IV Onl Ordering Physician MD ELVIA, [facility] Accession Number [id number] CPT4 Codes 36732 (CT Abdomen/Pelvis w/ IV Contrast (IV Onl) Reason For Exam Crohn's Flare, Enterography Report CT abdomen and pelvis with intravenous and enterography contrast HISTORY: Crohn's disease Protocol: 3 mm axial images with intravenous contrast, three bottles of Volumen was given. COMPARISON: 10/17/2019 The liver, gallbladder, spleen, pancreas, adrenals, and kidneys are normal. Sigmoid diverticulosis. Again seen is a network of abnormal density (images [phone] [id number]) just above the bladder contiguous with the sigmoid colon and a small bowel loop. Previously these were described as possible adhesions. Now they have air density suggesting that they represent fistulas. No air is seen in the bladder. No free fluid or free air. No bowel obstruction. IMPRESSION: Again seen is a network of abnormal density just above the bladder contiguous with the sigmoid colon and a small bowel loop. Previously these were described as possible adhesions. Now they have air density suggesting that they represent fistulas. Report Dictated on --- Final --- Dictated: 04/27/2020 2:07 pm Dictating Physician: MD ROWLEY MALAY Signed Date and Time: 04/27/2020 2:17 pm Signed by: MD ROWLEY MALAY Transcribed Date and Time: 04/27/2020 2:07 [place] Patient Name: RUTHIE CASTILLO ---CT--- Exam Date/Time 04/27/2020 13:49:[address] Abdomen/Pelvis w/ IV Contrast (IV Onl Ordering Physician MD ELVIA, KAVON Accession Number [id number] CPT4 Codes 01627 (CT Abdomen/Pelvis w/ IV Contrast (IV Onl) Reason For Exam Crohn's Flare, Enterography Report CT abdomen and pelvis with intravenous and enterography contrast HISTORY: Crohn's disease Protocol: 3 mm axial images with intravenous contrast, three bottles of Volumen was given. COMPARISON: 10/17/2019 The liver, gallbladder, spleen, pancreas, adrenals, and kidneys are normal. Sigmoid diverticulosis. Again seen is a network of abnormal density (images 187 [phone]) just above the bladder contiguous with the sigmoid colon and a small bowel loop. Previously these were described as possible adhesions. Now they have air density suggesting that they represent fistulas. No air is seen in the bladder. No free fluid or free air. No bowel obstruction. IMPRESSION: Again seen is a network of abnormal density just above the bladder contiguous with the sigmoid colon and a small bowel loop. Previously these were described as possible adhesions. Now they have air density suggesting that they represent fistulas. Report Dictated on --- Final --- Dictated: 04/27/2020 2:07 pm Dictating Physician: MD ROWLEY MALAY Signed Date and Time: 04/27/2020 2:17 pm Signed by: MD ROWLEY MALAY Transcribed Date and Time: 04/27/2020 2:07 [place] Comprehensive Metabolic Pane l w/ Reflex to MGon 04-27-2020 Albumin [Mass/Vol] 4.1 g/dL 3.5 - 5 g/dL [place] ALP [Catalytic activity/Vol] 64 U/L 38 - 126 U/L [place] ALT [Catalytic activity/Vol] 27 U/L 0 - 49 U/L [place] Comment on above: The ALT test is perf ormed by an updated assay method. Please note that the reference intervals have been changed and are now sex specific. Anion gap [Moles/Vol] 9 mmol/L [place] AST [Catalytic activity/Vol] 28 U/L 15 - 46 U/L [place] Bilirubin Ql (U) 0.4 mg/dL 0.2 - 1.3 mg/dL [place] Calcium [Mass/Vol] 8.9 mg/dL 8.4 - 10. 4 mg/dL [place] Chloride [Moles/Vol] 106 mmol/L 98 - 10 7 mmol/L [place] CO2 [Moles/Vol] 23 mmol/L 22 - 30 mmol/L [place] Creatinine [Mass/Vol] 0.63 mg/dL 0.52 - 1.25 mg/dL [place] EGFR IF NonAfrican Syrian >90.0 >60 mL/min [place] Comment on above: KDIGO guidelines pro vide the following GFR categories: Stage GFR(ml/min/1.73 m2) Terms G1 >=90 Normal or high G2 60-89 Mildly decreased* G3a 45-59 Mildly to moderately decreased G3b 30-44 Moderately to severely decreased G4 15-29 Severely decreased G5 <15 Kidney failure *Relative to young adult level. In the absence of evidence of kidney damage, neither GFR category G1 nor G2 fulfill the criteria for CKD. The CKD-EPI equation is validated in individuals 18 years of age and older. Currently the best equation for estimating glomerular filtration rate (GFR) from serum creatinine in children is the Bedside Pratt equation. It is less accurate in patients with extremes of muscle mass, restriction of dietary protein, ingestion of creatine, extra-renal metabolism of creatinine, or treatment with medications that affect renal tubular creatinine secretion. GFR/1.73 sq M predicted among blacks MDRD (S/P/Bld) [Vol rate/Area] mL/min/{1.73_m2} >60 mL/min [place] Glucose [Mass/Vol] 80 mg/dL 70 - 100 mg/dL [place] Potassium [Moles/Vol] 4.0 mmol/L 3.5 - 5.1 mmol/L [place] Protein [Mass/Vol] 7.1 g/dL 6.3 - 8.2 g/dL [place] Sodium [Moles/Vol] 138 mmol/L 135 - 145 mmol/L [place] Urea nitrogen [Mass/Vol] 9 mg/dL 7 - 20 mg/dL [place] Test Performed by [facility], [address] [facility] [place] [address] [place] LACTIC ACID, PLASMAon 2019 Lactate [Moles/Vol] 0.9 mmol/L 0.7 - 2 mmol/L [place] Test Performed by [facility], [address] [facility] [place] [address] [place] Otheron 04-27-2020 Interpretation and review of laboratory results Abnormal [place] Test Performed by [facility], [address], [place] [address] [place] Sedimentation Rateon 020 Interpretation and review of laboratory results Abnormal [place] Sed Rate 19 mm/h High 0 - 10 mm/h [place] Test Performed by [facility], [address] [facility] [place] [address] [place] Urinalysison 04-27-2020 Appearance (U) Clear Clear NA [place] Comment on above: . Bilirubin Urine Negative Negative mg/dL [place] Comment on above: . Color (U) Light-Yellow Lt. Yellow NA [place] Comment on above: . Glucose, Ur Normal Normal (<70) mg/dL [place] Comment on above: . Ketones Ql (U) Negative Negative mg/dL [place] Comment on above: . LEUKOCYTES, UA Negative Negative Serafin/uL [place] Comment on above: . Nitrite, Urine Negative Negative NA [place] Comment on above: . Occult Blood,Urine Negative Negative mg/dL [place] Comment on above: . pH (U) 6.5 [pH] [place] Comment on above: . Protein (U) [Mass/Vol] Negative Negative mg/dL [place] Comment on above: . Specific [place], Urine 1.018 [place] Comment on above: . Urobilinogen, Urine Normal Normal (0-1) mg/dL [place] Comment on above: . Comprehensive Metabolic Pane deja 02-19-2020 Albumin [Mass/Vol] 4.4 g/dL Normal 3.9-4.9 [facility] Comment on above: Performed By: #### C MP #### [facility] [address] [place], [place] [address] ALP [Catalytic activity/Vol] 87 U/L Normal 38-113 [facility] Comment on above: Performed By: #### C MP #### [facility] [address] [place], [place] [address] ALT [Catalytic activity/Vol] 40 U/L Normal 10-54 [facility] Comment on above: Performed By: #### C MP #### [facility] [address] [place] [address] Anion gap [Moles/Vol] 13 mmol/L Normal 9-[address] [facility] Comment on above: Performed By: #### C MP #### [facility] [address] [place] [address] AST [Catalytic activity/Vol] 29 U/L Normal 14-40 [facility] Comment on above: Performed By: #### C MP #### [facility] [address] [place] [address] Bilirubin [Mass/Vol] 0.2 mg/dL Normal 0.2-1.3 [facility] Comment on above: Performed By: #### C MP #### [facility] [address] [place], [place] [address] Calcium [Mass/Vol] 9.2 mg/dL Normal 8.5-10.2 [facility] Comment on above: Performed By: #### C MP #### [facility] [address] [place] [address] Chloride [Moles/Vol] 102 mmol/L Normal 97-105 [facility] Comment on above: Performed By: #### C MP #### [facility] [address] [place] [address] CO2 Blood 24 mmol/L Normal 22-30 [facility] Comment on above: Performed By: #### C MP #### [facility] [address] [place] [address] Creatinine [Mass/Vol] 0.72 mg/dL Low 0.73-1.[address] [facility] Comment on above: Performed By: #### C MP #### [facility] [address] [place], [place] [address] Glucose [Mass/Vol] 112 mg/dL High 74-99 [facility] Comment on above: Result Comment: The [place] Diabetes Association (ADA) provides guidance for cutoff values for fasting glucose and random glucose. The ADA defines fasting as no caloric intake for at least 8 hours.Fasting plasma glucose results between 100 to 125 mg/dL indicate increased risk for diabetes (prediabetes). Fasting plasma glucose results greater than or equal to 126 mg/dL meet the criteria for diagnosis of diabetes. In the absence of unequivocal hyperglycemia, results should be confirmed by repeat testing. In a patient with classic symptoms of hyperglycemia or hyperglycemic crisis, random plasma glucose results greater than or equal to 200 mg/dL meet the criteria for diagnosis of diabetes. Reference: Standards of Medical Care in Diabetes 2016; [place] [employer] Association. Diabetes Care. 2016;39(Suppl 1). Performed By: #### C MP #### [facility] [address] [place] [id number] Potassium [Moles/Vol] 3.7 mmol/L Normal 3.7-5.[address] [facility] Comment on above: Performed By: #### C MP #### [facility] [address] [place], [place] [address] Protein [Mass/Vol] 7.2 g/dL Normal 6.3-8.0 [facility] Comment on above: Performed By: #### C MP #### [facility] [address] [place], [place] [address] Sodium [Moles/Vol] 139 mmol/L Normal 136-144 [facility] Comment on above: Performed By: #### C MP #### [facility] [address] [place], [place] [address] Urea nitrogen [Mass/Vol] 7 mg/dL Low 9-24 [facility] Comment on above: Performed By: #### C MP #### [facility] [address] [place], [place] [address] Hemogram/Diffon 02-19-2020 Abs Immature Grans 0.04 thou/cmm Normal 0.00-0.[address] [facility] Comment on above: Performed By: #### C BCD1 #### [facility] [address] [place] [address] Abs Neut (ANC) 6.46 thou/cmm High 1.78-5.38 [facility] Comment on above: Performed By: #### C BCD1 #### [facility] [address] [place] [address] Abs. Baso 0.02 thou/cmm Normal 0.01-0.08 [facility] Comment on above: Performed By: #### C BCD1 #### [facility] [address] [place] [address] Abs. [place] 0.52 thou/cmm Normal 0.30-0.82 [facility] Comment on above: Performed By: #### C BCD1 #### [place] [address] Basophils/100 WBC (Bld) 0.2 % Normal [facility] Comment on above: Performed By: #### C BCD1 #### [facility] [address] [place] [address] Eosinophils (Bld) [#/Vol] 0.47 thou/cmm Normal 0.04-0.54 [facility] Comment on above: Performed By: #### C BCD1 #### [place] [address] Eosinophils/100 WBC (Bld) 5.0 % Normal [facility] Comment on above: Performed By: #### C BCD1 #### [facility] [address] [place] [address] Erythrocyte distribution width (RBC) [Ratio] 13.5 % Normal 11.6-14.4 [facility] [facility] Comment on above: Performed By: #### C BCD1 #### [facility] [address] [address] Hematocrit (Bld) [Volume fraction] 45.0 % Normal 40.1-51.0 [facility] Comment on above: Performed By: #### C BCD1 #### [address] [place] [address] Hemoglobin (Bld) [Mass/Vol] 15.4 g/dL Normal 13.7-17.5 [facility] Comment on above: Performed By: #### C BCD1 #### [facility] [address] [address] Immature Grans 0.40 % Normal [facility] Comment on above: Performed By: #### C BCD1 #### [facility] [address] [address] Lymphocytes (Bld) [#/Vol] 1.84 thou/cmm Normal 0.84-2.85 [facility] Comment on above: Performed By: #### C BCD1 #### [place] [address] Lymphocytes/100 WBC (Bld) 19.7 % Normal [facility] Comment on above: Performed By: #### C BCD1 #### [place] [address] MCH (RBC) [Entitic mass] 29.7 pg Normal 25.7-32.2 [facility] Comment on above: Performed By: #### C BCD1 #### [place] [address] MCHC (RBC) [Mass/Vol] 34.2 % Normal 32.3-36.[address] [facility] Comment on above: Performed By: #### C BCD1 #### [place] [address] MCV (RBC) [Entitic vol] 86.7 fL Normal 83.2-95.6 [facility] Comment on above: Performed By: #### C BCD1 #### [place] [address] Monocytes/100 WBC (Bld) 5.6 % Normal [facility] Comment on above: Performed By: #### C BCD1 #### [place] [address] Platelet mean volume (Bld) [Entitic vol] 11.1 fL Normal 8.7-12.0 [facility] Comment on above: Performed By: #### C BCD1 #### [facility] [address] [place], [place] [address] Platelets (Bld) [#/Vol] 269 thou/cmm Normal 141-365 [facility] Comment on above: Performed By: #### C BCD1 #### [facility] [address] [place], [place] [address] RBC (Bld) [#/Vol] 5.19 mil/cmm Normal 4.63-6.08 [facility] Comment on above: Performed By: #### C BCD1 #### [place] [address] RDW SD 42.5 fl Normal 36.1-45.8 [facility] Comment on above: Performed By: #### C BCD1 #### [place] [address] Seg Neutrophil 69.1 % Normal [facility] Comment on above: Performed By: #### C BCD1 #### [facility] [address] [address] WBC (Bld) [#/Vol] 9.35 thou/cmm High 4.23-9.07 [facility] Comment on above: Performed By: #### C BCD1 #### [place] [address] Lipase Bloodon 02-19-2020 Lipase Blood 46 U/L Normal 16-61 [facility] Comment on above: Performed By: #### L IP #### [place] [address] MDRD GFRon 02-19-2020 GFR/1.73 sq M predicted among non-blacks MDRD (S/P/Bld) [Vol rate/Area] mL/min/{1.73_m2} Normal >60mL/min/ 1.73m2 [facility] Comment on above: Result Comment: If t he patient is , multiply the result by 1.210. Performed By: #### G FR #### [place] [address] Urinalysis Routineon 020 Bacteria LM.HPF (Urine sed) [#/Area] NONE Normal None [facility] Comment on above: Performed By: #### U RIN2 #### [facility] [address] [address] Ep Cells Urine 0.2 /hpf Normal 0.0-5.0 [facility] Comment on above: Performed By: #### U RIN2 #### [place] [address] Hyaline Cast 0.3 /lpf Normal 0.0-1.0 [facility] Comment on above: Performed By: #### U RIN2 #### [place] [address] RBC LM.HPF (Urine sed) [#/Area] 1.7 /[HPF] Normal 0.0-5.0 [facility] Comment on above: Performed By: #### U RIN2 #### [place] [address] WBC LM.HPF (Urine sed) [#/Area] 0.4 /[HPF] Normal 0.0-5.0 [facility] Comment on above: Performed By: #### U RIN2 #### [place] [address] Appearance (U) CLEAR Normal [facility] Comment on above: Performed By: #### U RIN2 #### [place] [address] Bilirubin (U) [Mass/Vol] Negative Normal Negative [facility] Comment on above: Performed By: #### U RIN2 #### [place] [address] Color (U) YELLOW Normal [facility] Comment on above: Performed By: #### U RIN2 #### [place] [address] Glucose Ql (U) Negative Normal Negative [facility] Comment on above: Performed By: #### U RIN2 #### [place] [address] Hemoglobin,Urine Negative Normal Negative [facility] Comment on above: Performed By: #### U RIN2 #### [facility] [address] [address] Ketone Urine Negative Normal Negative [facility] Comment on above: Performed By: #### U RIN2 #### [facility] [address] [address] Leukocytes Esterase Negative Normal Negative [facility] Comment on above: Performed By: #### U RIN2 #### [facility] [address] [address] Nitrites Urine Negative Normal Negative [facility] Comment on above: Performed By: #### U RIN2 #### [facility] [address] [address] pH (U) 6.0 [pH] Normal 5.0-8.0 [facility] Comment on above: Performed By: #### U RIN2 #### [place] [address] Protein (U) [Mass/Vol] Negative Normal Negative [facility] Comment on above: Performed By: #### U RIN2 #### [facility] [address] [address] Specific [place], Ur 1.008 Normal 1.005-1 .03 0 [facility] Comment on above: Performed By: #### U RIN2 #### [facility] [address] [address] Urobilinogen,Ur 0.2 EU/dL Normal 0.2-1.0 [facility] Comment on above: Performed By: #### U RIN2 #### [place] [address] Blood Occult Stool Screen #1 Ordered By: Winston Jefferson on 10-21-2019 Hemoglobin.gastrointe stinal Ql (Stl) Positive Negative NA [employer] Work Phone: Test Performed by [facility], [address] , [place], [place] [address] [employer] Work Phone: Comp Metabolic Panelon 10-21 ALP [Catalytic activity/Vol] 69 U/L Normal 38-126 [facility] Comment on above: Performed By: #### H EMDF, CMP3, LIPA4 #### [facility] [address] [place] [address] ALT [Catalytic activity/Vol] 66 U/L Normal 13-69 [facility] Comment on above: Performed By: #### H EMDF, CMP3, LIPA4 #### [facility] [address] [place] [address] Anion gap [Moles/Vol] 13 Normal [facility] Comment on above: Performed By: #### H EMDF, CMP3, LIPA4 #### [facility] [address] [place] [address] AST [Catalytic activity/Vol] 42 U/L Normal 15-46 [facility] Comment on above: Performed By: #### H EMDF, CMP3, LIPA4 #### [facility] [address] [place] [address] Bilirubin [Mass/Vol] 0.6 mg/dL Normal 0.2-1.3 [facility] Comment on above: Performed By: #### H EMDF, CMP3, LIPA4 #### [facility] [address] [place] [address] Calcium [Mass/Vol] 10.3 mg/dL Normal 8.4-10.4 [facility] Comment on above: Performed By: #### H EMDF, CMP3, LIPA4 #### [facility] [address] [place] [address] CO2 [Moles/Vol] 26 mmol/L Normal 22-30 [facility] Comment on above: Performed By: #### H EMDF, CMP3, LIPA4 #### [facility] [address] [place] [address] Creatinine [Mass/Vol] 0.81 mg/dL Normal 0.52-1.25 [facility] Comment on above: Performed By: #### H EMDF, CMP3, LIPA4 #### [facility] [address] [place] [address] GFR/1.73 sq M predicted among blacks MDRD (S/P/Bld) [Vol rate/Area] mL/min/{1.73_m2} Normal >60 [facility] Comment on above: Performed By: #### H STEVEN EPDRO3, LIPA4 #### [facility] [address] [place] [address] GFR/1.73 sq M predicted among non-blacks MDRD (S/P/Bld) [Vol rate/Area] mL/min/{1.73_m2} Normal >60 [facility] Comment on above: Result Comment: Sour ce- MDRD equation with creatinine calibration to IDMS(NKDEP) eGFR not recommended for drug dose adjustment Performed By: #### H STEVEN PEDRO3, LIPA4 #### [facility] [address] [place] [address] Glucose [Mass/Vol] 95 mg/dL Normal 70-100 [facility] Comment on above: Performed By: #### H STEVEN PEDRO3, LIPA4 #### [facility] [address] [place] [address] Protein [Mass/Vol] 9.1 g/dL High 6.3-8.2 [facility] Comment on above: Performed By: #### H STEVEN PEDRO3, LIPA4 #### [facility] [address] [address] Urea nitrogen [Mass/Vol] 11 mg/dL Normal 7-20 [facility] Comment on above: Performed By: #### H STEVEN PEDRO3, LIPA4 #### [facility] [address] [place] [address] Potassium [Moles/Vol] 4.7 mmol/L Normal 3.5-5.1 [facility] Comment on above: Performed By: #### H STEVEN PEDRO3, LIPA4 #### [facility] [address] [place] [address] Albumin [Mass/Vol] 5.3 g/dL High 3.5-5.0 [facility] Comment on above: Performed By: #### H WILLIS CMP3, LIPA4 #### [facility] [address] [place] [address] Chloride [Moles/Vol] 103 mmol/L Normal 98-107 [facility] Comment on above: Performed By: #### H EMDF, CMP3, LIPA4 #### [facility] [address] [place] [address] Sodium [Moles/Vol] 141 mmol/L Normal 135-145 [facility] Comment on above: Performed By: #### H EMDF, CMP3, LIPA4 #### [facility] [address] [place] [address] Complete Urinalysison 2019 Appearance (U) Clear Normal Clear [facility] Comment on above: Performed By: #### H EMDF, CMP3, LIPA4 #### [facility] [address] [place] [address] Bilirubin,Urine Negative Normal Negative [facility] Comment on above: Performed By: #### H EMDF, CMP3, LIPA4 #### [facility] [address] [place] [address] Color (U) COLORLESS Normal Lt. Yellow [facility] Comment on above: Performed By: #### H EMDF, CMP3, LIPA4 #### [facility] [address] [place] [address] Glucose Ql (U) Normal Normal Normal (<70) [facility] Comment on above: Performed By: #### H EMDF, CMP3, LIPA4 #### [facility] [address] [place] [address] Ketone,Urine Negative Normal Negative [facility] Comment on above: Performed By: #### H EMDF, CMP3, LIPA4 #### [facility] [address] [place] [address] Leukocytes,Urine Negative Normal Negative [facility] Comment on above: Performed By: #### H EMDF, CMP3, LIPA4 #### [facility] [address] [place] [address] Nitrites,Urine Negative Normal Negative [facility] Comment on above: Performed By: #### H EMDF, CMP3, LIPA4 #### [facility] [address] [place] [address] Occult Blood,Urine Negative Normal Negative [facility] Comment on above: Performed By: #### H EMDF, CMP3, LIPA4 #### [facility] [address] [place] [address] pH (U) 7.5 Normal 5.0-8.0 [facility] Comment on above: Performed By: #### H EMDF, CMP3, LIPA4 #### [facility] [address] [place] [address] Protein (U) [Mass/Vol] Negative Normal Negative [facility] Comment on above: Performed By: #### H EMDF, CMP3, LIPA4 #### [facility] [address] [place] [address] Specific [place],Urine 1.008 Normal 1.005-1.03 0 [facility] Comment on above: Performed By: #### H EMDF, CMP3, LIPA4 #### [facility] [address] [place] [address] Urobilinogen,Urine Normal Normal Normal (0-1) [facility] Comment on above: Performed By: #### H EMDF, CMP3, LIPA4 #### [facility] [address] [place] [address] Comprehensive Metabolic Pane lOrdered By: Winston Jefferson on 10-21-2019 Albumin [Mass/Vol] 5.3 g/dL High 3.5 - 5 g/dL [facility] Work Phone: [phone] ALP [Catalytic activity/Vol] 69 U/L 38 - 126 U/L [facility] Work [facility]: [phone] ALT [Catalytic activity/Vol] 66 U/L 13 - 69 U/L [facility] Work Phone: [phone] Anion gap [Moles/Vol] 13 mmol/L [facility] Work Phone: [phone] AST [Catalytic activity/Vol] 42 U/L 15 - 46 U/L [facility] Work Phone: [phone] Bilirubin [Mass/Vol] 0.6 mg/dL 0.2 - 1 .3 mg/dL [facility] Work Phone: [phone] Calcium [Mass/Vol] 10.3 mg/dL 8.4 - 10. 4 mg/dL [facility] Work Phone: [phone] Chloride [Moles/Vol] 103 mmol/L 98 - 10 7 mmol/L [facility] Work Phone: 222 CO2 [Moles/Vol] 26 mmol/L 22 - 30 mmol/L [facility] Work [facility]: [phone] Creatinine [Mass/Vol] 0.81 mg/dL 0.52 - 1.25 mg/dL [facility] Work Phone: [phone] EGFR IF NonAfrican Syrian >60.0 >60 mL/min [facility] Work Phone: Comment on above: Source- MDRD equatio n with creatinine calibration to IDMS(NKDEP) eGFR not recommended for drug dose adjustment GFR/1.73 sq M.predicted among blacks MDRD (S/P/Bld) [Vol rate/Area] mL/min/{1.73_m2} >60 mL/min [facility] Work Phone: [phone] Glucose [Mass/Vol] 95 mg/dL 70 - 100 mg/dL [facility] Work Phone: [phone] Interpretation and review of laboratory results Abnormal [facility] Work Phone: [phone] Potassium [Moles/Vol] 4.7 mmol/L 3.5 - 5.1 mmol/L [facility] Work Phone: [phone] Protein [Mass/Vol] 9.1 g/dL High 6.3 - 8.2 g/dL [facility] Work Phone: [phone] Sodium [Moles/Vol] 141 mmol/L 135 - 145 mmol/L [facility] Work Phone: [phone] Urea nitrogen [Mass/Vol] 11 mg/dL 7 - 20 mg/dL [facility] Work Phone: [phone] Fecal Occult,Stool Single Sp econ 10-21-2019 Fecal Occult,Stool Single Spec Positive Normal Negative [facility] Comment on above: Performed By: #### H EMDF, CMP3, LIPA4 #### [facility] [address] [place] [address] Hemogram (CBC) w/Auto DiffOr dered By: Winston Jefferson on 10-21-2019 Absolute Baso # 0.1 10*3/uL 0 - 0.2 10*3/uL [facility] Work Phone: [phone] Absolute Neut # 7.8 10*3/uL High 1.8 - 7 10*3/uL [facility] Work Phone: [phone] Basophils/100 WBC (Bld) 0.8 % 0 - 2 % [facility] Work Phone: [phone] Eosinophils (Bld) [#/Vol] 0.1 10*3/uL 0 - 0.5 10*3/uL [facility] Work Phone: [phone] Eosinophils/100 WBC (Bld) 1.2 % 1 - 6 % [facility] Work Phone: ) [phone] Erythrocyte distribution width (RBC) [Ratio] 15.4 % High 11.5 - 14.5 % [employer] Work Phone: ) [phone] Granulocytes/100 WBC (Bld) 73.9 % 40 - 80 % [facility] Work Phone: ) [phone] Hematocrit (Bld) [Volume fraction] 51.1 % 40 - 52 % [facility] Work Phone: [phone] Hemoglobin (Bld) [Mass/Vol] 16.9 g/dL 13 - 18 g/dL [employer] Work Phone: [phone] Interpretation and review of laboratory results Abnormal [employer] Work Phone: [phone] Lymphocytes (Bld) [#/Vol] 1.7 10*3/uL 1 - 4.3 10*3/uL [facility] Work Phone: [phone] Lymphocytes/100 WBC (Bld) 16.5 % Low 20 - 40 % [facility] Work Phone: [phone] MCH (RBC) [Entitic mass] 29.3 pg 26 - 34 pg [facility] Work Phone: [phone] MCHC 33.0 % 32 - 36 % [facility] Work Phone: [phone] MCV (RBC) [Entitic vol] 88.8 fL 80 - 98 fL [facility] Work Phone: [phone] Monocytes (Bld) [#/Vol] 0.8 10*3/uL 0 - 0.8 10*3/uL [facility] Work Phone: [phone] Monocytes/100 WBC (Bld) 7.6 % 2 - 10 % [facility] Work Phone: [phone] Platelet mean volume (Bld) [Entitic vol] 8.7 fL 7.4 - 10.4 fL [employer] Work Phone: [phone] Platelets (Bld) [#/Vol] 334 10*3/uL 140 - 440 10*3/uL [employer] Work Phone: [phone] RBC (Bld) [#/Vol] 5.76 10*6/uL 4.4 - 5.9 10*6/uL [facility] Work Phone: [phone] WBC (Bld) [#/Vol] 10.5 10*3/uL 3.6 - 10.7 10*3/uL [facility] Work Phone: [phone] Test Performed by [facility], [address] , [place], [place] [id number] [place], [place] [address] Work Phone: [phone] Hemogram w/ [employer]od[employer]on 10-21 Abs Baso Cnt 0.1 10*3/uL Normal 0.0-0.2 [facility] Comment on above: Performed By: #### H EMDF, CMP3, LIPA4 #### [facility] [employer] [address] [place] [address] Abs Neutrophile Cnt 7.8 10*3/uL High 1.8-7.0 [facility] [employer] [facility] Comment on above: Performed By: #### H EMDF, CMP3, LIPA4 #### [facility] [employer] [facility] [address] [place] [address] Basophils/100 WBC (Bld) 0.8 % Normal 0.0-2.0 [facility] Comment on above: Performed By: #### H EMDF, CMP3, LIPA4 #### [facility] [employer] [facility] [address] [address] Eosinophils (Bld) [#/Vol] 0.1 10*3/uL Normal 0.0-0.5 [facility] Comment on above: Performed By: #### H EMDF, CMP3, LIPA4 #### [facility] [address] [place] [address] Eosinophils/100 WBC (Bld) 1.2 % Normal 1.0-6.0 [facility] Comment on above: Performed By: #### H EMDF, CMP3, LIPA4 #### [facility] [address] [place] [address] Erythrocyte distribution width (RBC) [Ratio] 15.4 % High 11.5-14.5 [facility] Comment on above: Performed By: #### H EMDF, CMP3, LIPA4 #### [facility] [address] [place] [address] Granulocytes/100 WBC (Bld) 73.9 % Normal 40.0-80.0 [facility] Comment on above: Performed By: #### H EMDF, CMP3, LIPA4 #### [facility] [address] [place] [address] Hematocrit (Bld) [Volume fraction] 51.1 % Normal 40.0-52.0 [facility] Comment on above: Performed By: #### H EMDF, CMP3, LIPA4 #### [facility] [address] [place] [address] Hemoglobin (Bld) [Mass/Vol] 16.9 g/dL Normal 13.0-18.0 [facility] Comment on above: Performed By: #### H EMDF, CMP3, LIPA4 #### [facility] [address] [place] [address] Lymphocytes (Bld) [#/Vol] 1.7 10*3/uL Normal 1.0-4.3 [facility] Comment on above: Performed By: #### H EMDF, CMP3, LIPA4 #### [facility] [address] [place] [address] Lymphocytes/100 WBC (Bld) 16.5 % Low 20.0-40.0 [facility] Comment on above: Performed By: #### H EMDF, CMP3, LIPA4 #### [facility] [address] [place] [address] MCH (RBC) [Entitic mass] 29.3 pg Normal 26.0-34.0 [facility] Comment on above: Performed By: #### H EMDF, CMP3, LIPA4 #### [facility] [address] [place] [address] MCHC (RBC) [Mass/Vol] 33.0 % Normal 32.0-36.0 [facility] Comment on above: Performed By: #### H EMDF, CMP3, LIPA4 #### [facility] [address] [place] [address] MCV (RBC) [Entitic vol] 88.8 fL Normal 80.0-98.0 [facility] Comment on above: Performed By: #### H EMDF, CMP3, LIPA4 #### [facility] [address] [place] [address] Monocytes (Bld) [#/Vol] 0.8 10*3/uL Normal 0.0-0.8 [facility] Comment on above: Performed By: #### H EMDF, CMP3, LIPA4 #### [facility] [address] [place] [address] Monocytes/100 WBC (Bld) 7.6 % Normal 2.0-10.0 [facility] Comment on above: Performed By: #### H EMDF, CMP3, LIPA4 #### [facility] [address] [place] [address] Platelet mean volume (Bld) [Entitic vol] 8.7 fL Normal 7.4-10.4 [facility] Comment on above: Performed By: #### H EMDF, CMP3, LIPA4 #### [facility] [address] [place] [address] Platelets (Bld) [#/Vol] 334 10*3/uL Normal 140-440 [facility] Comment on above: Performed By: #### H EMDF, CMP3, LIPA4 #### [facility] [address] [place] [address] RBC (Bld) [#/Vol] 5.76 10*6/uL Normal 4.40-5.90 [facility] Comment on above: Performed By: #### H EMDF, CMP3, LIPA4 #### [facility] [address] [place] [address] WBC (Bld) [#/Vol] 10.5 10*3/uL Normal 3.6-10.7 [facility] Comment on above: Performed By: #### H EMDF, CMP3, LIPA4 #### [facility] [address] [place] [address] Lipaseon 10-21-2019 Lipase [Catalytic activity/Vol] 71 U/L Normal 23-300 [facility] Comment on above: Performed By: #### H EMDF, CMP3, LIPA4 #### [facility] [address] [place] [address] LipaseOrdered By: Winston hatch on 10-21-2019 Lipase [Catalytic activity/Vol] 71 U/L 23 - 300 U/L [facility] Work Phone: [phone] No Panel InformationOrdered By: Winston Jefferson on 10-21-2019 Test Performed by [facility], [address] , [place], [place] [address] [facility] Work Phone: [phone] UrinalysisOrdered By: Winston Jefferson on 10-21-2019 Appearance (U) Clear Clear NA [employer] Work Phone: [phone] Bilirubin Urine Negative Negative mg/dL [facility] Work Phone: [phone] Color (U) COLORLESS Lt. Yellow NA [employer] Work Phone: [phone] Glucose, Ur Normal Normal (<70) mg/dL [facility] Work Phone: [phone] Ketones Ql (U) Negative Negative mg/dL [facility] Work Phone: [phone] LEUKOCYTES, UA Negative Negative Serafin/uL [facility] Work Phone: [phone] Nitrite, Urine Negative Negative NA [facility] Work Phone: [phone] Occult Blood,Urine Negative Negative mg/dL [facility] Work Phone: [phone] pH (U) 7.5 [pH] [facility] Work Phone: Specific [place], Urine 1.008 [facility] Work Phone: Total Protein, Urine Negative Negativ e mg/dL [facility] Work Phone: Urobilinogen, Urine Normal Normal (0-1) mg/dL [facility] Work Phone: 1 Test Performed by [facility], [facility] [address] [place], [place] [address] A Work Phone: Comprehensive Metabolic Pane lOrdered By: Roberto Arcos on 10-19-2019 Albumin [Mass/Vol] 4.4 g/dL 3.5 - 5 g/dL [facility] Work Phone: ) ALP [Catalytic activity/Vol] 62 U/L 38 - 126 U/L [facility] Work Phone: ALT [Catalytic activity/Vol] 59 U/L 13 - 69 U/L [facility] Work Phone: Anion gap [Moles/Vol] 11 mmol/L [facility] Work Phone: AST [Catalytic activity/Vol] 41 U/L 15 - 46 U/L [facility] Work Phone: Bilirubin [Mass/Vol] 0.8 mg/dL 0.2 - 1 .3 mg/dL [facility] Work Phone: Calcium [Mass/Vol] 9.4 mg/dL 8.4 - 10. 4 mg/dL [facility] Work Phone: [phone] Chloride [Moles/Vol] 104 mmol/L 98 - 10 7 mmol/L [facility] Work Phone: 222 CO2 [Moles/Vol] 22 mmol/L 22 - 30 mmol/L [facility] Work Phone: Creatinine [Mass/Vol] 0.75 mg/dL 0.52 - 1.25 mg/dL [facility] Work Phone: ) EGFR IF NonAfrican Syrian >60.0 >60 mL/min [facility] Work Phone: [phone] Comment on above: Source- MDRD equatio n with creatinine calibration to IDMS(NKDEP) eGFR not recommended for drug dose adjustment GFR/1.73 sq M.predicted among blacks MDRD (S/P/Bld) [Vol rate/Area] mL/min/{1.73_m2} >60 mL/min [facility] Work Phone: [phone] Glucose [Mass/Vol] 85 mg/dL 70 - 100 mg/dL [facility] Work Phone: ) [phone] Potassium [Moles/Vol] 3.9 mmol/L 3.5 - 5.1 mmol/L [facility] Work Phone: [phone] Protein [Mass/Vol] 7.7 g/dL 6.3 - 8.2 g/dL [facility] Work Phone: ) [phone] Sodium [Moles/Vol] 138 mmol/L 135 - 145 mmol/L [facility] Work Phone: [phone] Urea nitrogen [Mass/Vol] 7 mg/dL 7 - 20 mg/dL [employer] Work Phone: [phone] Hemogram (CBC) w/Auto DiffOr dered By: Roberto Arcos on 10-19-2019 Absolute Baso # 0.0 10*3/uL 0 - 0.2 10*3/uL [employer] Work Phone: [phone] Absolute Neut # 4.1 10*3/uL 1.8 - 7 10*3/uL [employer] Work Phone: [phone] Basophils/100 WBC (Bld) 0.3 % 0 - 2 % [facility] Work Phone: ) [phone] Eosinophils (Bld) [#/Vol] 0.1 10*3/uL 0 - 0.5 10*3/uL [facility] Work Phone: [phone] Eosinophils/100 WBC (Bld) 1.9 % 1 - 6 % [facility] Work Phone: [phone] Erythrocyte distribution width (RBC) [Ratio] 15.0 % High 11.5 - 14.5 % [facility] Work Phone: [phone] Granulocytes/100 WBC (Bld) 69.1 % 40 - 80 % [facility] Work Phone: [phone] Hematocrit (Bld) [Volume fraction] 45.2 % 40 - 52 % [facility] Work Phone: [phone] Hemoglobin (Bld) [Mass/Vol] 15.2 g/dL 13 - 18 g/dL [employer] Work Phone: [phone] Interpretation and review of laboratory results Abnormal [facility] [employer] Work Phone: [phone] Lymphocytes (Bld) [#/Vol] 1.4 10*3/uL 1 - 4.3 10*3/uL [facility] Work Phone: [phone] Lymphocytes/100 WBC (Bld) 22.9 % 20 - 40 % [facility] Work Phone: [phone] MCH (RBC) [Entitic mass] 29.4 pg 26 - 34 pg [facility] Work Phone: [phone] MCHC 33.6 % 32 - 36 % [employer] Work Phone: [phone] MCV (RBC) [Entitic vol] 87.6 fL 80 - 98 fL [employer] Work Phone: [phone] Monocytes (Bld) [#/Vol] 0.3 10*3/uL 0 - 0.8 10*3/uL [employer] Work Phone: [phone] Monocytes/100 WBC (Bld) 5.8 % 2 - 10 % [facility] Work Phone: [phone] Platelet mean volume (Bld) [Entitic vol] 8.5 fL 7.4 - 10.4 fL [employer] Work Phone: [phone] Platelets (Bld) [#/Vol] 254 10*3/uL 140 - 440 10*3/uL [facility] Work Phone: [phone] RBC (Bld) [#/Vol] 5.16 10*6/uL 4.4 - 5.9 10*6/uL [facility] Work Phone: [phone] WBC (Bld) [#/Vol] 5.9 10*3/uL 3.6 - 10.7 10*3/uL [employer] Work Phone: [phone] Test Performed by [facility], [address] [place] [id number] [facility] Work Phone: [phone] Lactic Acid, PlasmaOrdered B y: Roberto Lawedward on 10-19-2019 Lactate [Moles/Vol] 1.2 mmol/L 0.7 - 2 mmol/L [facility] Work Phone: [phone] Test Performed by [employer], [facility] [place] [address] [facility] Work Phone: [phone] LipaseOrdered By: Roberto alcantara on 10-19-2019 Lipase [Catalytic activity/Vol] 44 U/L 23 - 300 U/L [employer] [employer] Work Phone: [phone] Panel InformationOrdered By: Robertotamanna Arcos on 10-19-2019 Test Performed by [employer], [place] [address] [facility] Work Phone: [phone] UrinalysisOrdered By: Roberto Arcos on 10-19-2019 Appearance (U) Clear Clear NA [employer] Work Phone: [phone] Bilirubin Urine Negative Negative mg/dL [facility] Work Phone: [phone] Color (U) Colorless Lt. Yellow NA [employer] Work Phone: [phone] Glucose, Ur Normal Normal (<70) mg/dL [facility] Work Phone: [phone] Ketones Ql (U) Negative Negative mg/dL [facility] Work Phone: [phone] LEUKOCYTES, UA Negative Negative Serafin/uL [facility] Work Phone: [phone] Nitrite, Urine Negative Negative NA [facility] Work Phone: [phone] Occult Blood,Urine Negative Negative mg/dL [facility] Work Phone: [phone] pH (U) 7.0 [pH] [facility] Work Phone: [phone] Specific [place], Urine 1.009 [facility] Work Phone: [phone] Total Protein, Urine Negative Negativ e mg/dL [facility] Work Phone: [phone] Urobilinogen, Urine Normal Normal (0-1) mg/dL [facility] Work Phone: [phone] Test Performed by [employer], [facility] [place] [address] [facility] Work Phone: CT Head WO ContrastOrdered B y: Ernie Mcmahon on 10-18-2019 Patient Name: RUTHIE CASTILLO ---CT--- Exam Date/Time 10/18/2019 20:18:[address] Head or Brain w/o Contrast Ordering Physician MD MCMAHON NISHIT Accession Number [id number] CPT4 Codes 30058 () Reason For Exam dizziness Report Examination: CT head Technique: Axial CT images of the head were obtained without IV contrast at 3 mm intervals. Coronal and sagittal reconstructions were also provided. Indication: dizziness Findings: The ventricles, sulci and cisterns are grossly normal in size and configuration. The adames-white differentiation is grossly intact. There are no extra-axial fluid collections or acute intracranial hemorrhage appreciated. There is no midline shift identified. The posterior fossa is grossly unremarkable. The paranasal sinuses and mastoid air cells are grossly clear. The bones are grossly unremarkable. Impression: No CT evidence of acute intracranial abnormality. Report Dictated on --- Final --- Dictating Physician: MD BARLOW KRIKOR Signed Date and Time: 10/18/2019 8:43 pm Signed by: MD BARLOW KRIKOR Transcribed Date and Time: 10/18/2019 8:44 [facility]: [facility], [facility] Incoming Radiology Results From [facility] - 10/18/2019 8:45 PM EST Patient Name: RUTHIE CASTILLO ---CT--- Exam Date/Time 10/18/2019 20:18:[address] Head or Brain w/o Contrast Ordering Physician MD MCMAHON NISHIT Accession Number [id number] CPT4 Codes 27272 () Reason For Exam dizziness Report Examination: CT head Technique: Axial CT images of the head were obtained without IV contrast at 3 mm intervals. Coronal and sagittal reconstructions were also provided. Indication: dizziness Findings: The ventricles, sulci and cisterns are grossly normal in size and configuration. The adames-white differentiation is grossly intact. There are no extra-axial fluid collections or acute intracranial hemorrhage appreciated. There is no midline shift identified. The posterior fossa is grossly unremarkable. The paranasal sinuses and mastoid air cells are grossly clear. The bones are grossly unremarkable. Impression: No CT evidence of acute intracranial abnormality. Report Dictated on --- Final --- Dictating Physician: MD BARLOW KRIKOR Signed Date and Time: 10/18/2019 8:43 pm Signed by: MD BARLOW KRIKOR Transcribed Date and Time: 10/18/2019 8:44 [facility] Work [facility]: CT Head or Brain w/o Contras ton 10-18-2019 CT Head or Brain w/o Contrast Patient Name: RUTHIE CASTILLO CT Exam Date/Time 10/18/2019 20:18:[address] Head or Brain w/o Contrast Ordering Physician MD VINCENT, [facility] Accession Number [id number] CPT4 Codes 73268 () Reason For Exam dizziness Report Examination: CT head Technique: Axial CT images of the head were obtained without IV contrast at 3 mm intervals. Coronal and sagittal reconstructions were also provided. Indication: dizziness Findings: The ventricles, sulci and cisterns are grossly normal in size and configuration. The adames-white differentiation is grossly intact. There are no extra-axial fluid collections or acute intracranial hemorrhage appreciated. There is no midline shift identified. The posterior fossa is grossly unremarkable. The paranasal sinuses and mastoid air cells are grossly clear. The bones are grossly unremarkable. Impression: No CT evidence of acute intracranial abnormality. Report Dictated on Final Dictating Physician: MD BARLOW KRIKOR Signed Date and Time: 10/18/2019 8:43 pm Signed by: MD BARLOW KRIKOR Transcribed Date and Time: 10/18/2019 8:44 Normal [facility] [place] [employer] Metabolic Panelon 10-18 ALP [Catalytic activity/Vol] 79 U/L Normal 38-126 [facility] Comment on above: Performed By: #### H EMDF, CMP3, LIPA4 #### [facility] [address] [place] [address] ALT [Catalytic activity/Vol] 70 U/L High 13-69 [facility] Comment on above: Performed By: #### H EMDF, CMP3, LIPA4 #### [facility] [address] [place] [address] Calcium [Mass/Vol] 9.3 mg/dL Normal 8.4-10.4 [facility] Comment on above: Performed By: #### H EMDF, CMP3, LIPA4 #### [facility] [address] [place] [address] Glucose [Mass/Vol] 144 mg/dL High 70-100 [facility] Comment on above: Performed By: #### H EMDF, CMP3, LIPA4 #### [facility] [address] [place] [address] Urea nitrogen [Mass/Vol] 8 mg/dL Normal 7-20 [facility] Comment on above: Performed By: #### H EMDF, CMP3, LIPA4 #### [facility] [address] [place] [address] Anion gap [Moles/Vol] 12 Normal [facility] Comment on above: Performed By: #### H EMDF, CMP3, LIPA4 #### [facility] [address] [place] [address] AST [Catalytic activity/Vol] 41 U/L Normal 15-46 [facility] Comment on above: Performed By: #### H EMDF, CMP3, LIPA4 #### [facility] [address] [place] [address] Bilirubin [Mass/Vol] 0.4 mg/dL Normal 0.2-1.3 [facility] Comment on above: Performed By: #### H EMDF, CMP3, LIPA4 #### [facility] [address] [place] [address] CO2 [Moles/Vol] 22 mmol/L Normal 22-30 [facility] Comment on above: Performed By: #### H EMDF, CMP3, LIPA4 #### [facility] [address] [place] [address] Creatinine [Mass/Vol] 0.77 mg/dL Normal 0.52-1.25 [facility] Comment on above: Performed By: #### H WILLIS CMP3, LIPA4 #### [facility] [address] [place] [address] GFR/1.73 sq M predicted among blacks MDRD (S/P/Bld) [Vol rate/Area] mL/min/{1.73_m2} Normal >60 [facility] Comment on above: Performed By: #### H WILLIS, CMP3, LIPA4 #### [facility] [address] [place] [address] GFR/1.73 sq M predicted among non-blacks MDRD (S/P/Bld) [Vol rate/Area] mL/min/{1.73_m2} Normal >60 [facility] Comment on above: Result Comment: Sour ce- MDRD equation with creatinine calibration to IDMS(NKDEP) eGFR not recommended for drug dose adjustment Performed By: #### H WILLIS, CMP3, LIPA4 #### [facility] [address] [place] [address] Protein [Mass/Vol] 7.3 g/dL Normal 6.3-8.2 [facility] Comment on above: Performed By: #### H WILLIS, CMP3, LIPA4 #### [facility] [address] [place] [address] Chloride [Moles/Vol] 105 mmol/L Normal 98-107 [facility] Comment on above: Performed By: #### H WILLIS, CMP3, LIPA4 #### [facility] [address] [place] [address] Potassium [Moles/Vol] 3.5 mmol/L Normal 3.5-5.1 [facility] Comment on above: Performed By: #### H WILLIS, CMP3, LIPA4 #### [facility] [address] [place] [address] Sodium [Moles/Vol] 139 mmol/L Normal 135-145 [facility] Comment on above: Performed By: #### H WILLIS, CMP3, LIPA4 #### [facility] [address] [place] [address] Albumin [Mass/Vol] 4.3 g/dL Normal 3.5-5.0 [facility] Comment on above: Performed By: #### H EMDF, CMP3, LIPA4 #### [facility] [address] [place] [address] Complete Urinalysison 2019 Appearance (U) Clear Normal Clear [facility] Comment on above: Performed By: #### H EMDF, CMP3, LIPA4 #### [facility] [address] [place] [address] Bilirubin,Urine Negative Normal Negative [facility] Comment on above: Performed By: #### H EMDF, CMP3, LIPA4 #### [facility] [address] [place] [address] Color (U) LIGHT YELLOW Normal Lt. Yellow [facility] Comment on above: Performed By: #### H EMDF, CMP3, LIPA4 #### [facility] [address] [place] [address] Glucose Ql (U) Normal Normal Normal (<70) [facility] Comment on above: Performed By: #### H EMDF, CMP3, LIPA4 #### [facility] [address] [place] [address] Ketone,Urine Negative Normal Negative [facility] Comment on above: Performed By: #### H EMDF, CMP3, LIPA4 #### [facility] [address] [place] [address] Leukocytes,Urine Negative Normal Negative [facility] Comment on above: Performed By: #### H EMDF, CMP3, LIPA4 #### [facility] [address] [place] [address] Nitrites,Urine Negative Normal Negative [facility] Comment on above: Performed By: #### H EMDF, CMP3, LIPA4 #### [facility] [address] [place] [address] Occult Blood,Urine Negative Normal Negative [facility] Comment on above: Performed By: #### H EMDF, CMP3, LIPA4 #### [facility] [address] [place] [address] pH (U) 6.0 Normal 5.0-8.0 [facility] Comment on above: Performed By: #### H EMDF, CMP3, LIPA4 #### [facility] [address] [place] [address] Protein (U) [Mass/Vol] Negative Normal Negative [facility] Comment on above: Performed By: #### H EMDF, CMP3, LIPA4 #### [facility] [address] [place] [address] Specific [place],Urine 1.007 Normal 1.005-1.03 0 [facility] Comment on above: Performed By: #### H EMDF, CMP3, LIPA4 #### [facility] [address] [place] [address] Urobilinogen,Urine Normal Normal Normal (0-1) [facility] Comment on above: Performed By: #### H EMDF, CMP3, LIPA4 #### [facility] [address] [place] [address] Comprehensive Metabolic Pane lOrdered By: Perez Hernandez on 10-18-2019 Albumin [Mass/Vol] 4.3 g/dL 3.5 - 5 g/dL [facility] Work Phone: [phone] ALP [Catalytic activity/Vol] 79 U/L 38 - 126 U/L [facility] Work Phone: [phone] ALT [Catalytic activity/Vol] 70 U/L High 13 - 69 U/L [facility] Work Phone: [phone] Anion gap [Moles/Vol] 12 mmol/L [facility] Work Phone: [phone] AST [Catalytic activity/Vol] 41 U/L 15 - 46 U/L [facility] Work Phone: [phone] Bilirubin [Mass/Vol] 0.4 mg/dL 0.2 - 1 .3 mg/dL [facility] Work Phone: [phone] Calcium [Mass/Vol] 9.3 mg/dL 8.4 - 10. 4 mg/dL [facility] Work Phone: [phone] Chloride [Moles/Vol] 105 mmol/L 98 - 10 7 mmol/L [facility] Work Phone: [phone] CO2 [Moles/Vol] 22 mmol/L 22 - 30 mmol/L [facility] Work Phone: [phone] Creatinine [Mass/Vol] 0.77 mg/dL 0.52 - 1.25 mg/dL [facility] Work Phone: [phone] EGFR IF NonAfrican Syrian >60.0 >60 mL/min [facility] Work Phone: [phone] Comment on above: Source- MDRD equatio n with creatinine calibration to IDMS(NKDEP) eGFR not recommended for drug dose adjustment GFR/1.73 sq M.predicted among blacks MDRD (S/P/Bld) [Vol rate/Area] mL/min/{1.73_m2} >60 mL/min [facility] Work [facility]: [phone] Glucose [Mass/Vol] 144 mg/dL High 70 - 100 mg/dL [facility] Work Phone: Interpretation and review of laboratory results Abnormal [facility] Work Phone: [phone] Potassium [Moles/Vol] 3.5 mmol/L 3.5 - 5.1 mmol/L [facility] Work Phone: [phone] Protein [Mass/Vol] 7.3 g/dL 6.3 - 8.2 g/dL [facility] Work Phone: [phone] Sodium [Moles/Vol] 139 mmol/L 135 - 145 mmol/L [facility] Work Phone: [phone] Urea nitrogen [Mass/Vol] 8 mg/dL 7 - 20 mg/dL [facility] Work Phone: [phone] Hemogram (CBC) w/Auto DiffOr dered By: Perez Hernandez on 10-18-2019 Erythrocyte distribution width (RBC) [Ratio] 15.4 % High 11.5 - 14.5 % [facility] Work Phone: [phone] Hematocrit (Bld) [Volume fraction] 41.6 % 40 - 52 % [facility] Work Phone: [phone] Hemoglobin (Bld) [Mass/Vol] 14.7 g/dL 13 - 18 g/dL [employer] Work Phone: [phone] Interpretation and review of laboratory results Abnormal [facility] Work Phone: [phone]() MCH (RBC) [Entitic mass] 30.9 pg 26 - 34 pg [employer] Work Phone: [phone] MCHC 35.4 % 32 - 36 % [facility] Work Phone: [phone] MCV (RBC) [Entitic vol] 87.5 fL 80 - 98 fL [facility] Work Phone: [phone]() Platelet mean volume (Bld) [Entitic vol] 9.1 fL 7.4 - 10.4 fL [facility] Work Phone: [phone] Platelets (Bld) [#/Vol] 300 10*3/uL 140 - 440 10*3/uL [employer] Work Phone: [phone] RBC (Bld) [#/Vol] 4.75 10*6/uL 4.4 - 5.9 10*6/uL [facility] Work Phone: [phone] WBC (Bld) [#/Vol] 5.8 10*3/uL 3.6 - 10.7 10*3/uL [employer] Work Phone: [phone] Test Performed by [facility], [address] Work Phone: [phone] Hemogram w/ [employer]od[employer] 10-18 Erythrocyte distribution width (RBC) [Ratio] 15.4 % High 11.5-14.5 [facility] Comment on above: Performed By: #### H EMDF, CMP3, LIPA4 #### [facility] [employer] [facility] [address] [place] [address] Hematocrit (Bld) [Volume fraction] 41.6 % Normal 40.0-52.0 [facility] Comment on above: Performed By: #### H EMDF, CMP3, LIPA4 #### [facility] [employer] [facility] [address] [place] [address] Hemoglobin (Bld) [Mass/Vol] 14.7 g/dL Normal 13.0-18.0 [facility] Comment on above: Performed By: #### H EMDF, CMP3, LIPA4 #### [facility] [address] [place] [address] MCH (RBC) [Entitic mass] 30.9 pg Normal 26.0-34.0 [facility] Comment on above: Performed By: #### H EMDF, CMP3, LIPA4 #### [facility] [address] [place] [address] MCHC (RBC) [Mass/Vol] 35.4 % Normal 32.0-36.0 [facility] Comment on above: Performed By: #### H EMDF, CMP3, LIPA4 #### [facility] [address] [place] [address] MCV (RBC) [Entitic vol] 87.5 fL Normal 80.0-98.0 [facility] Comment on above: Performed By: #### H EMDF, CMP3, LIPA4 #### [facility] [address] [place] [address] Platelet mean volume (Bld) [Entitic vol] 9.1 fL Normal 7.4-10.4 [facility] Comment on above: Performed By: #### H EMDF, CMP3, LIPA4 #### [facility] [address] [place] [address] Platelets (Bld) [#/Vol] 300 10*3/uL Normal 140-440 [facility] Comment on above: Performed By: #### H EMDF, CMP3, LIPA4 #### [facility] [address] [place] [address] RBC (Bld) [#/Vol] 4.75 10*6/uL Normal 4.40-5.90 [facility] Comment on above: Performed By: #### H EMDF, CMP3, LIPA4 #### [facility] [address] [place] [address] WBC (Bld) [#/Vol] 5.8 10*3/uL Normal 3.6-10.7 [facility] Comment on above: Performed By: #### H EMDF, CMP3, LIPA4 #### [facility] [address] [place] [address] Lipaseon 10-18-2019 Lipase [Catalytic activity/Vol] 84 U/L Normal 23-300 [facility] Comment on above: Performed By: #### H EMDF, CMP3, LIPA4 #### [facility] [address] [place] [address] LipaseOrdered By: Perez Jackson ord on 10-18-2019 Lipase [Catalytic activity/Vol] 84 U/L 23 - 300 U/L [facility] Work Phone: Manual Diffon 10-18-2019 Abs Eosin Cnt 0.1 10*3/uL Normal 0.0-0.5 [facility] Comment on above: Performed By: #### H EMDF, CMP3, LIPA4 #### [facility] [address] [place] [address] Abs Lymph Cnt 1.8 10*3/uL Normal 1.1-4.5 [facility] Comment on above: Performed By: #### H EMDF, CMP3, LIPA4 #### [facility] [address] [place] [address] Abs Monocyte Cnt 0.3 10*3/uL Normal 0.2-1.1 [facility] Comment on above: Performed By: #### H EMDF, CMP3, LIPA4 #### [facility] [address] [place] [address] Abs Neutrophile Cnt 3.5 10*3/uL Normal 2.2-8.2 [facility] Comment on above: Performed By: #### H EMDF, CMP3, LIPA4 #### [facility] [address] [place] [address] Eosinophils 2 % Normal 1-6 [facility] Comment on above: Performed By: #### H EMDF, CMP3, LIPA4 #### [facility] [address] [place] [address] Lymphocytes 31 % Normal 20-40 [facility] Comment on above: Performed By: #### H EMDF, CMP3, LIPA4 #### [facility] [address] [place] [address] Monocytes 6 % Normal 2-10 [facility] Comment on above: Performed By: #### H EMDF, CMP3, LIPA4 #### [facility] [address] [place] [address] RBC morphology finding Nom (Bld) Normal Normal [facility] Comment on above: Performed By: #### H EMDF, CMP3, LIPA4 #### [facility] [address] [place] [address] Seg Neutrophils 61 % Normal 40-80 [facility] Comment on above: Performed By: #### H EMDF, CMP3, LIPA4 #### [facility] [address] [place] [address] Abs Baso Cnt 0.0 10*3/uL Normal 0.0-0.2 [facility] Comment on above: Performed By: #### H EMDF, CMP3, LIPA4 #### [facility] [address] [place] [address] Bands 0 % Normal 0-3 [facility] Comment on above: Performed By: #### H EMDF, CMP3, LIPA4 #### [facility] [address] [place] [address] Basophils 0 % Normal 0-2 [facility] Comment on above: Performed By: #### H EMDF, CMP3, LIPA4 #### [facility] [address] [place] [address] Cells counted 100 Normal [facility] Comment on above: Performed By: #### H EMDF, CMP3, LIPA4 #### [facility] [address] [place] [address] Manual DifferentialOrdered B y: Perezrosario Hernandez on 10-18-2019 Absolute Baso # 0.0 10*3/uL 0 - 0.2 10*3/uL [facility] Work Phone: Absolute Eos # 0.1 10*3/uL 0 - 0.5 10*3/uL [facility] Work Phone: Absolute Lymph # 1.8 10*3/uL 1.1 - 4.5 10*3/uL [facility] Work Phone: [phone] Absolute Bath # 0.3 10*3/uL 0.2 - 1.1 10*3/uL [facility] Work Phone: [phone] Absolute Neut # 3.5 10*3/uL 2.2 - 8.2 10*3/uL [facility] Work Phone: [phone] Bands 0 % 0 - 3 % [facility] Work Phone: [phone] Basophils 0 % 0 - 2 % [facility] Work Phone: [phone] Eosinophils 2 % 1 - 6 % [facility] Work Phone: [phone] Lymphocytes 31 % 20 - 40 % [facility] Work Phone: [phone] Monocytes 6 % 2 - 10 % [facility] Work Phone: [phone] RBC Morphology Normal [facility] Work Phone: [phone] Seg Neutrophils 61 % 40 - 80 % [facility] Work Phone: [phone] TOTAL CELLS COUNTED 100 [facility] Work Phone: [phone] Test Performed by [employer], [address] [place] [address] [facility] Work Phone: [phone] No Panel InformationOrdered By: Perez Hernandez on 10-18-2019 Test Performed by [facility], [address] [place], [place] [address] [facility] Work Phone: [phone] UrinalysisOrdered By: Perez Hernandez on 10-18-2019 Appearance (U) Clear Clear NA [facility] Work Phone: [phone] Bilirubin Urine Negative Negative mg/dL [facility] Work Phone: [phone] Color (U) LIGHT YELLOW Lt. Yellow NA [facility] Work Phone: [phone] Glucose, Ur Normal Normal (<70) mg/dL [facility] Work Phone: [phone] Ketones Ql (U) Negative Negative mg/dL [facility] Work Phone: [phone] LEUKOCYTES, UA Negative Negative Serafin/uL [facility] Work Phone: [phone] Nitrite, Urine Negative Negative NA [facility] Work Phone: Occult Blood,Urine Negative Negative mg/dL [facility] Work Phone: [phone] pH (U) 6.0 [pH] [facility] Work Phone: [phone] Specific [place], Urine 1.007 [facility] Work Phone: [phone] Total Protein, Urine Negative Negativ e mg/dL [facility] Work Phone: [phone] Urobilinogen, Urine Normal Normal (0-1) mg/dL [facility] Work Phone: Test Performed by [facility], [address] , [address] Work Phone: [phone] Basic Metabolic Panelon 09-30 Calcium [Mass/Vol] 9.7 mg/dL Normal 8.4-10.4 [facility] Comment on above: Performed By: #### B MP3, LFT3, LIPA4, MD NARCISOIFF #### [facility] [address] [place] [address] Glucose [Mass/Vol] 112 mg/dL High 70-100 [facility] Comment on above: Performed By: #### B MP3, LFT3, LIPA4, GEE STUART #### [facility] [address] [place] [address] Anion gap [Moles/Vol] 12 Normal [facility] Comment on above: Performed By: #### B MP3, LFT3, LIPA4, GEE STUART #### [facility] [address] [place] [address] CO2 [Moles/Vol] 24 mmol/L Normal 22-30 [facility] Comment on above: Performed By: #### B MP3, LFT3, LIPA4, GEE STUART #### [facility] [address] [place] [address] Creatinine [Mass/Vol] 0.74 mg/dL Normal 0.52-1.25 [facility] Comment on above: Performed By: #### B MP3, LFT3, LIPA4, HEMDF, MDIFF #### [facility] [address] [place] [address] GFR/1.73 sq M predicted among blacks MDRD (S/P/Bld) [Vol rate/Area] mL/min/{1.73_m2} Normal >60 [facility] Comment on above: Performed By: #### B MP3, LFT3, LIPA4, HEMANGLEICA, MDIFF #### [facility] [address] [place] [address] GFR/1.73 sq M predicted among non-blacks MDRD (S/P/Bld) [Vol rate/Area] mL/min/{1.73_m2} Normal >60 [facility] Comment on above: Result Comment: Sour ce- MDRD equation with creatinine calibration to IDMS(NKDEP) eGFR not recommended for drug dose adjustment Performed By: #### B MP3, LFT3, LIPA4, HEMANGELICA MDIFF #### [facility] [address] [place] [address] Urea nitrogen [Mass/Vol] 10 mg/dL Normal 7-20 [facility] Comment on above: Performed By: #### B MP3, LFT3, LIPA4, HEMMD ANGELICAIFF #### [facility] [address] [place] [address] Potassium [Moles/Vol] 3.7 mmol/L Normal 3.5-5.1 [facility] Comment on above: Performed By: #### B MP3, LFT3, LIPA4, HEMANGELICA, MDIFF #### [facility] [address] [place] [address] Sodium [Moles/Vol] 139 mmol/L Normal 135-145 [facility] Comment on above: Performed By: #### B MP3, LFT3, LIPA4, HEMANGELICA, MDIFF #### [facility] [address] [place] [address] Chloride [Moles/Vol] 103 mmol/L Normal 98-107 [facility] Comment on above: Performed By: #### B MP3, LFT3, LIPA4, HEMANGELICA, MDIFF #### [facility] [address] [place] [address] Basic Metabolic PanelOrdered By: Ranulfo Hermosillo on 10-17-2019 Anion gap [Moles/Vol] 12 mmol/L [facility] Work Phone: Calcium [Mass/Vol] 9.7 mg/dL 8.4 - 10. 4 mg/dL [facility] Work Phone: [phone] Chloride [Moles/Vol] 103 mmol/L 98 - 10 7 mmol/L [facility] Work Phone: [phone] CO2 [Moles/Vol] 24 mmol/L 22 - 30 mmol/L [facility] Work Phone: Creatinine [Mass/Vol] 0.74 mg/dL 0.52 - 1.25 mg/dL [facility] Work Phone: [phone] EGFR IF NonAfrican Syrian >60.0 >60 mL/min [facility] Work Phone: Comment on above: Source- MDRD equatio n with creatinine calibration to IDMS(NKDEP) eGFR not recommended for drug dose adjustment GFR/1.73 sq M.predicted among blacks MDRD (S/P/Bld) [Vol rate/Area] mL/min/{1.73_m2} >60 mL/min [facility] Work Phone: Glucose [Mass/Vol] 112 mg/dL High 70 - 100 mg/dL [facility] Work Phone: Potassium [Moles/Vol] 3.7 mmol/L 3.5 - 5.1 mmol/L [facility] Work Phone: Sodium [Moles/Vol] 139 mmol/L 135 - 145 mmol/L [facility] Work Phone: Urea nitrogen [Mass/Vol] 10 mg/dL 7 - 20 mg/dL [facility] Work Phone: CT Abdomen Pelvis W Contrast Ordered By: Ranulfo Hermosillo on 10-17-2019 Patient Name: RUTHIE CASTILLO ---CT--- Exam Date/Time 10/17/2019 17:56:[address] Abdomen/Pelvis w/ IV Contrast (IV Onl Ordering Physician RANULFO HERMOSILLO Number [id number] CPT4 Codes 73332 (CT Abdomen/Pelvis w/ IV Contrast (IV Onl), Q9967 (CT ISOVUE 370MG/ML&[id number]&ML&1) Reason For Exam right lower abdominal pain, crohns history Report Indication: Right lower quadrant pain. Comparison 08/17/2019. FINDINGS: Enhanced abdomen and pelvis performed with 75 cc Isovue-370. Lung bases clear. No free air. Bowel pattern appears nonobstructive. Appendix normal. No definite bowel abscess. No focal inflammation seen. Limited, lack of oral contrast. No small bowel distention. No acute or occult process of the liver gallbladder without stones, pancreas or spleen, adrenal glands kidneys aorta bladder. No free fluid. No definite adenopathy. No acute paraspinous process or spinal compression. IMPRESSION: The etiology of patient's symptoms is uncertain. No inflammation obstruction or free air seen. Report Dictated on --- Final --- Dictating Physician: MD JANG JOHN Signed Date and Time: 10/17/2019 6:02 pm Signed by: MD JANG JOHN Transcribed Date and Time: 10/17/2019 6:03 [facility] Work Phone: Juan, Nicolle Incoming Radiology Results From [facility] - 10/17/2019 6:03 PM EST Patient Name: RUTHIE CASTILLO ---CT--- Exam Date/Time 10/17/2019 17:56:[address] Abdomen/Pelvis w/ IV Contrast (IV Onl Ordering Physician RANULFO HERMOSILLO Accession Number [id number] CPT4 Codes 67909 (CT Abdomen/Pelvis w/ IV Contrast (IV Onl), Q9967 (CT ISOVUE 370MG/ML&[id number]&ML&1) Reason For Exam right lower abdominal pain, crohns history Report Indication: Right lower quadrant pain. Comparison 08/17/2019. FINDINGS: Enhanced abdomen and pelvis performed with 75 cc Isovue-370. Lung bases clear. No free air. Bowel pattern appears nonobstructive. Appendix normal. No definite bowel abscess. No focal inflammation seen. Limited, lack of oral contrast. No small bowel distention. No acute or occult process of the liver gallbladder without stones, pancreas or spleen, adrenal glands kidneys aorta bladder. No free fluid. No definite adenopathy. No acute paraspinous process or spinal compression. IMPRESSION: The etiology of patient's symptoms is uncertain. No inflammation obstruction or free air seen. Report Dictated on --- Final --- Dictating Physician: MD JANG JOHN Signed Date and Time: 10/17/2019 6:02 pm Signed by: MD JANG JOHN Transcribed Date and Time: 10/17/2019 6:03 [facility] Work Phone: CT Abdomen/Pelvis w/ Contras ton 10-17-2019 CT Abdomen/Pelvis w/ Contrast Patient Name: RUTHIE CASTILLO CT Exam Date/Time 10/17/2019 17:56:[address] Abdomen/Pelvis w/ IV Contrast (IV Onl Ordering Physician RANULFO HERMOSILLO Accession Number [id number] CPT4 Codes 92439 (CT Abdomen/Pelvis w/ IV Contrast (IV Onl), Q9967 (CT ISOVUE 370MG/[id number] nd1) Reason For Exam right lower abdominal pain, crohns history Report Indication: Right lower quadrant pain. Comparison 08/17/2019. FINDINGS: Enhanced abdomen and pelvis performed with 75 cc Isovue-370. Lung bases clear. No free air. Bowel pattern appears nonobstructive. Appendix normal. No definite bowel abscess. No focal inflammation seen. Limited, lack of oral contrast. No small bowel distention. No acute or occult process of the liver gallbladder without stones, pancreas or spleen, adrenal glands kidneys aorta bladder. No free fluid. No definite adenopathy. No acute paraspinous process or spinal compression. IMPRESSION: The etiology of patient's symptoms is uncertain. No inflammation obstruction or free air seen. Report Dictated on Final Dictating Physician: MD JANG JOHN Signed Date and Time: 10/17/2019 6:02 pm Signed by: MD JANG JOHN Transcribed Date and Time: 10/17/2019 6:03 Normal [facility] Complete Urinalysison 2019 Appearance (U) Clear Normal Clear [facility] Comment on above: Performed By: #### H EMDF, CMP3, LIPA4 #### [facility] [address] [place] [address] Bacteria LM.HPF (Urine sed) [#/Area] Few (1-5) Normal Negative [facility] Comment on above: Performed By: #### H EMDF, CMP3, LIPA4 #### [facility] [address] [place] [address] Bilirubin,Urine Negative Normal Negative [facility] Comment on above: Performed By: #### H EMDF, CMP3, LIPA4 #### [facility] [address] [place] [address] Color (U) Yellow Normal Lt. Yellow [facility] Comment on above: Performed By: #### H EMDF, CMP3, LIPA4 #### [facility] [address] [place] [address] Glucose Ql (U) Normal Normal Normal (<70) [facility] Comment on above: Performed By: #### H EMDF, CMP3, LIPA4 #### [facility] [address] [place] [address] Ketone,Urine Negative Normal Negative [facility] Comment on above: Performed By: #### H EMDF, CMP3, LIPA4 #### [facility] [address] [place] [address] Leukocytes,Urine Negative Normal Negative [facility] Comment on above: Performed By: #### H EMDF, CMP3, LIPA4 #### [facility] [address] [place] [address] Mucous Threads Few Normal Negative [facility] Comment on above: Performed By: #### H EMDF, CMP3, LIPA4 #### [facility] [address] [place] [address] Nitrites,Urine Negative Normal Negative [facility] Comment on above: Performed By: #### H EMDF, CMP3, LIPA4 #### [facility] [address] [place] [address] Occult Blood,Urine Negative Normal Negative [facility] Comment on above: Performed By: #### H EMDRomero, CMP3, LIPA4 #### [facility] [address] [place] [address] pH (U) 6.5 Normal 5.0-8.0 [facility] Comment on above: Performed By: #### H EMDF, CMP3, LIPA4 #### [facility] [address] [place] [address] Protein (U) [Mass/Vol] 20 mg/dL Normal Negative [facility] Comment on above: Performed By: #### H EMDRomero, CMP3, LIPA4 #### [facility] [address] [place] [address] RBC LM.HPF (Urine sed) [#/Area] 0 - 2 Normal 0-2 [facility] Comment on above: Performed By: #### H EMDF, CMP3, LIPA4 #### [facility] [address] [place] [address] Specific [place],Urine > 1.030 Normal 1.005-1.03 0 [facility] Comment on above: Performed By: #### H EMDF, CMP3, LIPA4 #### [facility] [address] [place] [address] Squamous Epithelial 0 - 2 Normal 3-5 [facility] Comment on above: Performed By: #### H EMDF, CMP3, LIPA4 #### [facility] [address] [place] [address] Urobilinogen,Urine 2 mg/dL Normal Normal (0-1) [facility] Comment on above: Performed By: #### H EMDF, CMP3, LIPA4 #### [facility] [address] [place] [address] VOLUME, URINE 12 ml Normal [facility] Comment on above: Performed By: #### H EMDF, CMP3, LIPA4 #### [facility] [address] [place] [address] WBC LM.HPF (Urine sed) [#/Area] 0 - 2 Normal 0-5 [facility] Comment on above: Performed By: #### H EMDF, CMP3, LIPA4 #### [facility] [address] [place] [address] Hemogram (CBC) w/Auto DiffOr dered By: Ranulfo Hermosillo on 10-17-2019 Erythrocyte distribution width (RBC) [Ratio] 15.4 % High 11.5 - 14.5 % [employer] Work Phone: [phone] Hematocrit (Bld) [Volume fraction] 47.0 % 40 - 52 % [email or web address] Phone: [phone] Hemoglobin (Bld) [Mass/Vol] 16.2 g/dL 13 - 18 g/dL [email or web address] Phone: [phone] Interpretation and review of laboratory results Abnormal [email or web address] Phone: [phone] MCH (RBC) [Entitic mass] 29.9 pg 26 - 34 pg [email or web address] Phone: [phone] MCHC 34.5 % 32 - 36 % [email or web address] Phone: [phone] MCV (RBC) [Entitic vol] 86.5 fL 80 - 98 fL [email or web address] Phone: [phone] Platelet mean volume (Bld) [Entitic vol] 8.6 fL 7.4 - 10.4 fL [email or web address] Phone: [phone] Platelets (Bld) [#/Vol] 311 10*3/uL 140 - 440 10*3/uL [employer] Work Phone: [phone] RBC (Bld) [#/Vol] 5.43 10*6/uL 4.4 - 5.9 10*6/uL [employer] Work Phone: [phone] WBC (Bld) [#/Vol] 7.2 10*3/uL 3.6 - 10.7 10*3/uL [email or web address] Phone: [phone] Hemogram w/ [employer]od[employer]on 10-17 Erythrocyte distribution width (RBC) [Ratio] 15.4 % High 11.5-14.5 [facility] Comment on above: Performed By: #### B MP3, LFT3, LIPA4, HEMDF, MDIFF #### [facility] [address] [place] [address] Hematocrit (Bld) [Volume fraction] 47.0 % Normal 40.0-52.0 [facility] Comment on above: Performed By: #### B MP3, LFT3, LIPA4, HEMDF, MDIFF #### [facility] [address] [place] [address] Hemoglobin (Bld) [Mass/Vol] 16.2 g/dL Normal 13.0-18.0 [facility] Comment on above: Performed By: #### B MP3, LFT3, LIPA4, HEMDF, MDIFF #### [facility] [address] [place] [address] MCH (RBC) [Entitic mass] 29.9 pg Normal 26.0-34.0 [facility] Comment on above: Performed By: #### B MP3, LFT3, LIPA4, HEMDF, MDIFF #### [facility] [address] [place] [address] MCHC (RBC) [Mass/Vol] 34.5 % Normal 32.0-36.0 [facility] Comment on above: Performed By: #### B MP3, LFT3, LIPA4, HEMDF, MDIFF #### [facility] [address] [place] [address] MCV (RBC) [Entitic vol] 86.5 fL Normal 80.0-98.0 [facility] Comment on above: Performed By: #### B MP3, LFT3, LIPA4, HEMDF, MDIFF #### [facility] [address] [place] [address] Platelet mean volume (Bld) [Entitic vol] 8.6 fL Normal 7.4-10.4 [facility] Comment on above: Performed By: #### B MP3, LFT3, LIPA4, HEMDF, MDIFF #### [facility] [address] [place] [address] Platelets (Bld) [#/Vol] 311 10*3/uL Normal 140-440 [facility] Comment on above: Performed By: #### B MP3, LFT3, LIPA4, HEMDF, MDIFF #### [facility] [address] [place] [address] RBC (Bld) [#/Vol] 5.43 10*6/uL Normal 4.40-5.90 [facility] Comment on above: Performed By: #### B MP3, LFT3, LIPA4, HEMDF, MDIFF #### [facility] [address] [place] [address] WBC (Bld) [#/Vol] 7.2 10*3/uL Normal 3.6-10.7 [facility] Comment on above: Performed By: #### B MP3, LFT3, LIPA4, HEMDF, MDIFF #### [facility] [address] [place] [address] Hepatic Functionon 0 ALP [Catalytic activity/Vol] 59 U/L Normal 38-126 [facility] Comment on above: Performed By: #### B MP3, LFT3, LIPA4, HEMDF, MDIFF #### [facility] [address] [place] [address] ALT [Catalytic activity/Vol] 80 U/L High 13-69 [facility] Comment on above: Performed By: #### B MP3, LFT3, LIPA4, HEMDF, MDIFF #### [facility] [address] [place] [address] AST [Catalytic activity/Vol] 54 U/L High 15-46 [facility] Comment on above: Performed By: #### B MP3, LFT3, LIPA4, HEMDF, MDIFF #### [facility] [address] [place] [address] Bilirubin [Mass/Vol] 0.8 mg/dL Normal 0.2-1.3 [facility] Comment on above: Performed By: #### B MP3, LFT3, LIPA4, HEMDF, MDIFF #### [facility] [address] [place] [address] Bilirubin.direct [Mass/Vol] 0.0 mg/dL Normal 0.0-0.3 [facility] Comment on above: Performed By: #### B MP3, LFT3, LIPA4, HEMMD ANGELICAIFF #### [facility] [address] [place] [address] Protein [Mass/Vol] 8.2 g/dL Normal 6.3-8.2 [facility] Comment on above: Performed By: #### B MP3, LFT3, LIPA4, HEMMD ANGELICAIFF #### [facility] [address] [place] [address] Albumin [Mass/Vol] 4.9 g/dL Normal 3.5-5.0 [facility] Comment on above: Performed By: #### B MP3, LFT3, LIPA4, GEE STUART #### [facility] [address] [place] [address] Hepatic Function PanelOrdere d By: Ranulfo Hermosillo on 10-17-2019 Albumin [Mass/Vol] 4.9 g/dL 3.5 - 5 g/dL [facility] Work Phone: ALP [Catalytic activity/Vol] 59 U/L 38 - 126 U/L [facility] Work Phone: [phone] ALT [Catalytic activity/Vol] 80 U/L High 13 - 69 U/L [facility] Work Phone: [phone] AST [Catalytic activity/Vol] 54 U/L High 15 - 46 U/L [facility] Work Phone: [phone] Bilirubin [Mass/Vol] 0.8 mg/dL 0.2 - 1 .3 mg/dL [facility] Work Phone: Bilirubin.indirect [Mass/Vol] 0.0 mg/dL 0 - 0.3 mg/dL [facility] Work Phone: Protein [Mass/Vol] 8.2 g/dL 6.3 - 8.2 g/dL [facility] Work Phone: Lipaseon 10-17-2019 Lipase [Catalytic activity/Vol] 78 U/L Normal 23-300 [facility] Comment on above: Performed By: #### B MP3, LFT3, LIPA4, HEMDFGEE #### [facility] [address] [place] [address] LipaseOrdered By: Ranulfo brice on 10-17-2019 Lipase [Catalytic activity/Vol] 78 U/L 23 - 300 U/L [facility] Work Phone: Manual Diffon 10-17-2019 Abs Baso Cnt 0.0 10*3/uL Normal 0.0-0.2 [facility] Comment on above: Performed By: #### H EMDF, CMP3, LIPA4 #### [facility] [address] [place] [address] Abs Eosin Cnt 0.1 10*3/uL Normal 0.0-0.5 [facility] Comment on above: Performed By: #### H EMDF, CMP3, LIPA4 #### [facility] [address] [place] [address] Abs Lymph Cnt 1.8 10*3/uL Normal 1.1-4.5 [facility] Comment on above: Performed By: #### H EMDF, CMP3, LIPA4 #### [facility] [address] [place] [address] Abs Monocyte Cnt 0.4 10*3/uL Normal 0.2-1.1 [facility] Comment on above: Performed By: #### H EMDF, CMP3, LIPA4 #### [facility] [address] [place] [address] Abs Neutrophile Cnt 5.0 10*3/uL Normal 2.2-8.2 [facility] Comment on above: Performed By: #### H EMDF, CMP3, LIPA4 #### [facility] [address] [place] [address] Bands 0 % Normal 0-3 [facility] Comment on above: Performed By: #### H EMDF, CMP3, LIPA4 #### [facility] [address] [place] [address] Basophils 0 % Normal 0-2 [facility] Comment on above: Performed By: #### H EMDF, CMP3, LIPA4 #### [facility] [address] [place] [address] Cells counted 100 Normal [facility] Comment on above: Performed By: #### H EMDF, CMP3, LIPA4 #### [facility] [address] [place] [address] Eosinophils 1 % Normal 1-6 [facility] Comment on above: Performed By: #### H EMDF, CMP3, LIPA4 #### [facility] [address] [place] [address] Lymphocytes 25 % Normal 20-40 [facility] Comment on above: Performed By: #### H EMDF, CMP3, LIPA4 #### [facility] [address] [place] [address] Monocytes 5 % Normal 2-10 [facility] Comment on above: Performed By: #### H EMDF, CMP3, LIPA4 #### [facility] [address] [place] [address] RBC morphology finding Nom (Bld) Normal Normal [facility] Comment on above: Performed By: #### H EMDF, CMP3, LIPA4 #### [facility] [address] [place] [address] Seg Neutrophils 69 % Normal 40-80 [facility] Comment on above: Performed By: #### H EMDF, CMP3, LIPA4 #### [facility] [address] [place] [address] Manual DifferentialOrdered B y: Ranulfo Sintia on 10-17-2019 Absolute Baso # 0.0 10*3/uL 0 - 0.2 10*3/uL [employer] Work Phone: Absolute Eos # 0.1 10*3/uL 0 - 0.5 10*3/uL [facility] Work Phone: Absolute Lymph # 1.8 10*3/uL 1.1 - 4.5 10*3/uL [facility] Work Phone: Absolute Bath # 0.4 10*3/uL 0.2 - 1.1 10*3/uL [facility] Work Phone: Absolute Neut # 5.0 10*3/uL 2.2 - 8.2 10*3/uL [facility] Work Phone: [phone] Bands 0 % 0 - 3 % [facility] Work Phone: [phone] Basophils 0 % 0 - 2 % [facility] Work Phone: [phone] Eosinophils 1 % 1 - 6 % [facility] Work Phone: [phone] Lymphocytes 25 % 20 - 40 % [facility] Work Phone: [phone] Monocytes 5 % 2 - 10 % [facility] Work Phone: [phone] RBC Morphology Normal [facility] Work Phone: [phone] Seg Neutrophils 69 % 40 - 80 % [facility] Work Phone: [phone] TOTAL CELLS COUNTED 100 [facility] Work Phone: [phone] No Panel InformationOrdered By: Ranulfo Hermosillo on 10-17-2019 Test Performed by [facility], [address] , [place] [address] [facility] Work Phone: [phone] Interpretation and review of laboratory results Abnormal [facility] Work Phone: [phone] Test Performed by [facility], [address] [place] [address] [employer] Work Phone: [phone] UrinalysisOrdered By: Ranulfo Hermosillo on 10-17-2019 Appearance (U) Clear Clear NA [facility] Work Phone: [phone] Bacteria, UA Few (1-5) Negative /[HPF] [facility] Work Phone: [phone] Bilirubin Urine Negative Negative mg/dL [facility] Work Phone: [phone] Color (U) Yellow Lt. Yellow NA [facility] Work Phone: [phone] Glucose, Ur Normal Normal (<70) mg/dL [facility] Work Phone: [phone] Ketones Ql (U) Negative Negative mg/dL [facility] Work Phone: [phone] LEUKOCYTES, UA Negative Negative Serafin/uL [facility] Work Phone: [phone] Mucous Threads Few Negative /[LPF] [facility] Work Phone: [phone] Nitrite, Urine Negative Negative NA [facility] Work Phone: Occult Blood,Urine Negative Negative mg/dL [facility] Work Phone: pH (U) 6.5 [pH] [facility] Work Phone: Protein (U) [Mass/Vol] 20 mg/dL Negative [facility] Work Phone: RBC, UA 0-2 0 - 2 /[HPF] [facility] Work Phone: Specific [place], Urine >1.030 [facility] Work Phone: Squam Epithel, UA 0-2 3 - 5 /[HPF] [facility] Work Phone: Urobilinogen, Urine 2 mg/dL Normal (0-1) [facility] Work Phone: Volume 12 ml [facility] Work Phone: WBC, UA 0-2 0 - 5 /[HPF] [facility] Work Phone: Test Performed by [facility], [address] [place] [address] [place] [place] [address] [facility] Work Phone: [phone] CR Chest PA/LATon 08-17-2019 CR Chest PA/LAT Patient Name: RUTHIE CASTILLO Diagnostic Radiology Exam Date/Time 08/17/2019 11:28:11 EST Exam CR Chest PA/LAT Ordering Physician BENEDICT SCOTT Accession Number [id number] CPT4 Codes 78806 () Reason For Exam cough Report Chest PA and lateral 08/17/2019. Clinical Information: Cough. Findings: PA and lateral views of the chest were compared to a prior study 11/11/2016. The trachea is midline. The heart and mediastinal structures are unremarkable. No focal areas of consolidation or volume loss are seen. There are no pleural effusions. The visualized bony structures are intact. Impression: No acute process. No significant interval change. Report Dictated on Final Dictating Physician: MD OWENS RISA Signed Date and Time: 08/17/2019 11:42 am Signed by: MD OWENS RISA Transcribed Date and Time: 08/17/2019 11:[address] [facility] [address] Abdomen Pelvis W Contrast on 08-17-2019 Juan, [facility] Incoming Radiology Results From [facility] - 08/17/2019 12:19 PM EST Patient Name: RUTHIE CASTILLO ---CT--- Exam Date/Time 08/17/2019 12:06:[address] Abdomen/Pelvis w/ IV Contrast (IV Onl Ordering Physician BENEDICT SCOTT Accession Number [id number] CPT4 Codes 07610 (CT Abdomen/Pelvis w/ IV Contrast (IV Onl), Q9967 (CT ISOVUE 370MG/ML&[id number]&ML&1) Reason For Exam abdominal pain Report CT scan of the abdomen: 08/17/2019. CT scan of the pelvis: 08/17/2019. Clinical Information: Abdominal pain. CT scans of the abdomen: CT scans of the abdomen were performed at 3 mm slice thickness following the administration of intravenous contrast. No oral contrast was given per request. Without the administration of oral contrast, evaluation of hollow organs is limited. Comparison was made to the prior study 05/12/2019. Limited slices through the lower lung bhatt reveal no pleural or parenchymal abnormalities in the lung bases. The liver is normal in size and configuration. No mass lesions identified within the liver. There is no evidence of intrahepatic biliary dilatation. The spleen is not enlarged. The pancreas and kidneys are within normal limits. No peripancreatic fluid collections or hydronephrosis are identified. No free peritoneal fluid or air is seen. No retroperitoneal lymphadenopathy is identified. CT scans of the pelvis: CT scans of the pelvis were performed at 3 mm slice thickness with intravenous contrast enhancement from the abdominal portion of the study. Again identified is an area of probable adhesive scarring in the mid lower abdomen unchanged from the prior study. Probably represents adhesions from an area of prior inflammation. The appendix appears unremarkable. No pelvic mass lesions, fluid collections or lymphadenopathy is seen. Impression: No significant interval change from the prior study. Probable adhesions in the lower abdomen. Further clinical evaluation may be warranted. No other abnormalities identified. Report Dictated on --- Final --- Dictating Physician: MD OWENS RISA Signed Date and Time: 08/17/2019 12:18 pm Signed by: MD OWENS RISA Transcribed Date and Time: 08/17/2019 12:19 [place], [place] Patient Name: RUTHIE CASTILLO ---CT--- Exam Date/Time 08/17/2019 12:06:[address] Abdomen/Pelvis w/ IV Contrast (IV Onl Ordering Physician BENEDICT SCOTT Accession Number [id number] CPT4 Codes 43555 (CT Abdomen/Pelvis w/ IV Contrast (IV Onl), Q9967 (CT ISOVUE 370MG/ML&[id number]&ML&1) Reason For Exam abdominal pain Report CT scan of the abdomen: 08/17/2019. CT scan of the pelvis: 08/17/2019. Clinical Information: Abdominal pain. CT scans of the abdomen: CT scans of the abdomen were performed at 3 mm slice thickness following the administration of intravenous contrast. No oral contrast was given per request. Without the administration of oral contrast, evaluation of hollow organs is limited. Comparison was made to the prior study 05/12/2019. Limited slices through the lower lung bhatt reveal no pleural or parenchymal abnormalities in the lung bases. The liver is normal in size and configuration. No mass lesions identified within the liver. There is no evidence of intrahepatic biliary dilatation. The spleen is not enlarged. The pancreas and kidneys are within normal limits. No peripancreatic fluid collections or hydronephrosis are identified. No free peritoneal fluid or air is seen. No retroperitoneal lymphadenopathy is identified. CT scans of the pelvis: CT scans of the pelvis were performed at 3 mm slice thickness with intravenous contrast enhancement from the abdominal portion of the study. Again identified is an area of probable adhesive scarring in the mid lower abdomen unchanged from the prior study. Probably represents adhesions from an area of prior inflammation. The appendix appears unremarkable. No pelvic mass lesions, fluid collections or lymphadenopathy is seen. Impression: No significant interval change from the prior study. Probable adhesions in the lower abdomen. Further clinical evaluation may be warranted. No other abnormalities identified. Report Dictated on --- Final --- Dictating Physician: MD OWENS RISA Signed Date and Time: 08/17/2019 12:18 pm Signed by: MD OWENS RISA Transcribed Date and Time: 08/17/2019 12:19 [place], [place] CT Abdomen/Pelvis w/ Contras ton 08-17-2019 CT Abdomen/Pelvis w/ Contrast Patient Name: RUTHIE CASTILLO CT Exam Date/Time 08/17/2019 12:06:29 EST Exam CT Abdomen/Pelvis w/ IV Contrast (IV Onl Ordering Physician BENEDICT SCOTT Accession Number [id number] CPT4 Codes 35361 (CT Abdomen/Pelvis w/ IV Contrast (IV Onl), Q9967 (CT ISOVUE 370MG/[id number]) Reason For Exam abdominal pain Report CT scan of the abdomen: 08/17/2019. CT scan of the pelvis: 08/17/2019. Clinical Information: Abdominal pain. CT scans of the abdomen: CT scans of the abdomen were performed at 3 mm slice thickness following the administration of intravenous contrast. No oral contrast was given per request. Without the administration of oral contrast, evaluation of hollow organs is limited. Comparison was made to the prior study 05/12/2019. Limited slices through the lower lung bhatt reveal no pleural or parenchymal abnormalities in the lung bases. The liver is normal in size and configuration. No mass lesions identified within the liver. There is no evidence of intrahepatic biliary dilatation. The spleen is not enlarged. The pancreas and kidneys are within normal limits. No peripancreatic fluid collections or hydronephrosis are identified. No free peritoneal fluid or air is seen. No retroperitoneal lymphadenopathy is identified. CT scans of the pelvis: CT scans of the pelvis were performed at 3 mm slice thickness with intravenous contrast enhancement from the abdominal portion of the study. Again identified is an area of probable adhesive scarring in the mid lower abdomen unchanged from the prior study. Probably represents adhesions from an area of prior inflammation. The appendix appears unremarkable. No pelvic mass lesions, fluid collections or lymphadenopathy is seen. Impression: No significant interval change from the prior study. Probable adhesions in the lower abdomen. Further clinical evaluation may be warranted. No other abnormalities identified. Report Dictated on Final Dictating Physician: MD OWENS RISA Signed Date and Time: 08/17/2019 12:18 pm Signed by: MD GRACIELA, SOLITARIO Transcribed Date and Time: 08/17/2019 12:19 Normal [facility] Comp Metabolic Panelon 08-17 ALP [Catalytic activity/Vol] 69 U/L Normal 38-126 [facility] Comment on above: Performed By: #### H EMDF, CMP3, LIPA4 #### [facility] [address] [place] [address] ALT [Catalytic activity/Vol] 73 U/L High 13-69 [facility] Comment on above: Performed By: #### H EMDF, CMP3, LIPA4 #### [facility] [address] [place] [address] AST [Catalytic activity/Vol] 48 U/L High 15-46 [facility] Comment on above: Performed By: #### H EMDF, CMP3, LIPA4 #### [facility] [address] [place] [address] Bilirubin [Mass/Vol] 0.7 mg/dL Normal 0.2-1.3 [facility] Comment on above: Performed By: #### H EMDF, CMP3, LIPA4 #### [facility] [address] [place] [address] Calcium [Mass/Vol] 9.5 mg/dL Normal 8.4-10.4 [facility] Comment on above: Performed By: #### H EMDF, CMP3, LIPA4 #### [facility] [address] [place] [address] Glucose [Mass/Vol] 83 mg/dL Normal 70-100 [facility] Comment on above: Performed By: #### H EMDF, CMP3, LIPA4 #### [facility] [address] [place] [address] Protein [Mass/Vol] 8.1 g/dL Normal 6.3-8.2 [facility] Comment on above: Performed By: #### H EMDF, CMP3, LIPA4 #### [facility] [address] [place] [address] Urea nitrogen [Mass/Vol] 15 mg/dL Normal 7-20 [facility] Comment on above: Performed By: #### H EMDF, CMP3, LIPA4 #### [facility] [address] [place] [address] Anion gap [Moles/Vol] 15 Normal [facility] Comment on above: Performed By: #### H EMDF, CMP3, LIPA4 #### [facility] [address] [place] [address] CO2 [Moles/Vol] 22 mmol/L Normal 22-30 [facility] Comment on above: Performed By: #### H EMDF, CMP3, LIPA4 #### [facility] [address] [place] [address] Creatinine [Mass/Vol] 0.89 mg/dL Normal 0.52-1.25 [facility] Comment on above: Performed By: #### H EMDF, CMP3, LIPA4 #### [facility] [address] [place] [address] GFR/1.73 sq M predicted among blacks MDRD (S/P/Bld) [Vol rate/Area] mL/min/{1.73_m2} Normal >60 [facility] Comment on above: Performed By: #### H EMDF, CMP3, LIPA4 #### [facility] [address] [place] [address] GFR/1.73 sq M predicted among non-blacks MDRD (S/P/Bld) [Vol rate/Area] mL/min/{1.73_m2} Normal >60 [facility] Comment on above: Result Comment: Sour ce- MDRD equation with creatinine calibration to IDMS(NKDEP) eGFR not recommended for drug dose adjustment Performed By: #### H EMDF, CMP3, LIPA4 #### [facility] [address] [place] [address] Albumin [Mass/Vol] 4.7 g/dL Normal 3.5-5.0 [facility] Comment on above: Performed By: #### H EMDF, CMP3, LIPA4 #### [facility] [address] [place] [address] Potassium [Moles/Vol] 3.4 mmol/L Low 3.5-5.1 [facility] Comment on above: Performed By: #### H EMDF, CMP3, LIPA4 #### [facility] [address] [place] [address] Sodium [Moles/Vol] 140 mmol/L Normal 135-145 [facility] Comment on above: Performed By: #### H EMDF, CMP3, LIPA4 #### [facility] [address] [place] [address] Chloride [Moles/Vol] 102 mmol/L Normal 98-107 [facility] Comment on above: Performed By: #### H EMDF, CMP3, LIPA4 #### [facility] [address] [place] [address] Complete Urinalysison 2018 RBC LM.HPF (Urine sed) [#/Area] Negative Normal 0-2 [facility] Comment on above: Performed By: #### C UA2 #### [facility] [address] [place] [address] Squamous Epithelial 0 - 2 Normal 3-5 [facility] Comment on above: Performed By: #### C UA2 #### [facility] [address] [place] [address] VOLUME, URINE 12 ml Normal [facility] Comment on above: Performed By: #### C UA2 #### [facility] [address] [place] [address] WBC LM.HPF (Urine sed) [#/Area] 0 - 2 Normal 0-5 [facility] Comment on above: Performed By: #### C UA2 #### [facility] [address] [place] [address] Appearance (U) Clear Normal Clear [facility] Comment on above: Performed By: #### C UA2 #### [facility] [address] [place] [address] Bilirubin,Urine Negative Normal Negative [facility] Comment on above: Performed By: #### C UA2 #### [facility] [address] [place] [address] Color (U) YELLOW Normal Lt. Yellow [facility] Comment on above: Performed By: #### C UA2 #### [facility] [address] [place] [address] Glucose Ql (U) Normal Normal Normal (<70) [facility] Comment on above: Performed By: #### C UA2 #### [facility] [address] [place] [address] Ketone,Urine Negative Normal Negative [facility] Comment on above: Performed By: #### C UA2 #### [facility] [address] [place] [address] Leukocytes,Urine Negative Normal Negative [facility] Comment on above: Performed By: #### C UA2 #### [facility] [address] [place] [address] Nitrites,Urine Negative Normal Negative [facility] Comment on above: Performed By: #### C UA2 #### [facility] [address] [place] [address] Occult Blood,Urine Negative Normal Negative [facility] Comment on above: Performed By: #### C UA2 #### [facility] [address] [place] [address] pH (U) 7.0 Normal 5.0-8.0 [facility] Comment on above: Performed By: #### C UA2 #### [facility] [address] [place] [address] Protein (U) [Mass/Vol] 10 mg/dL Normal Negative [facility] Comment on above: Performed By: #### C UA2 #### [facility] [address] [place] [address] Specific [place],Urine > 1.030 Normal 1.005-1.03 0 [facility] Comment on above: Performed By: #### C UA2 #### [facility] [address] [place] [address] Urobilinogen,Urine Normal Normal Normal (0-1) [facility] Comment on above: Performed By: #### C UA2 #### [facility] [address] [place] [address] Comprehensive Metabolic Pane [facility] 08-17-2019 Albumin [Mass/Vol] 4.7 g/dL 3.5 - 5 g/dL [place] ALP [Catalytic activity/Vol] 69 U/L 38 - 126 U/L [place] ALT [Catalytic activity/Vol] 73 U/L High 13 - 69 U/L [place] Anion gap [Moles/Vol] 15 mmol/L [place] AST [Catalytic activity/Vol] 48 U/L High 15 - 46 U/L [place] Bilirubin Ql (U) 0.7 mg/dL 0.2 - 1.3 mg/dL [place] Calcium [Mass/Vol] 9.5 mg/dL 8.4 - 10. 4 mg/dL [place] Chloride [Moles/Vol] 102 mmol/L 98 - 10 7 mmol/L [place] CO2 [Moles/Vol] 22 mmol/L 22 - 30 mmol/L [place] Creatinine [Mass/Vol] 0.89 mg/dL 0.52 - 1.25 mg/dL [place] EGFR IF NonAfrican Syrian >60.0 >60 mL/min [place] Comment on above: Source- MDRD equatio n with creatinine calibration to IDMS(NKDEP) eGFR not recommended for drug dose adjustment GFR/1.73 sq M predicted among blacks MDRD (S/P/Bld) [Vol rate/Area] mL/min/{1.73_m2} >60 mL/min [place] Glucose [Mass/Vol] 83 mg/dL 70 - 100 mg/dL [place] Interpretation and review of laboratory results Abnormal [place] Potassium [Moles/Vol] 3.4 mmol/L Low 3.5 - 5.1 mmol/L [place] Protein [Mass/Vol] 8.1 g/dL 6.3 - 8.2 g/dL [place] Sodium [Moles/Vol] 140 mmol/L 135 - 145 mmol/L [place] Urea nitrogen [Mass/Vol] 15 mg/dL 7 - 20 mg/dL [place] Hemogram (CBC) w/Auto Diffon 08-17-2019 Absolute Baso # 0.0 10*3/uL 0 - 0.2 10*3/uL [place] Absolute Neut # 7.3 10*3/uL High 1.8 - 7 10*3/uL [place] Basophils/100 WBC (Bld) 0.4 % 0 - 2 % [place] Eosinophils (Bld) [#/Vol] 0.1 10*3/uL 0 - 0.5 10*3/uL [place] Eosinophils/100 WBC (Bld) 1.2 % 1 - 6 % [place] Erythrocyte distribution width (RBC) [Ratio] 14.4 % 11.5 - 14.5 % [place] Granulocytes/100 WBC (Bld) 69.1 % 40 - 80 % [place] Hematocrit (Bld) [Volume fraction] 47.4 % 40 - 52 % [place] Hemoglobin (Bld) [Mass/Vol] 16.3 g/dL 13 - 18 g/dL [place] Interpretation and review of laboratory results Abnormal [place] Lymphocytes (Bld) [#/Vol] 2.2 10*3/uL 1 - 4.3 10*3/uL [place] Lymphocytes/100 WBC (Bld) 20.6 % 20 - 40 % [place] MCH (RBC) [Entitic mass] 29.4 pg 26 - 34 pg [place] MCHC (RBC) [Mass/Vol] 34.5 % 32 - 36 % [place] MCV (RBC) [Entitic vol] 85.3 fL 80 - 98 fL [place] Monocytes (Bld) [#/Vol] 0.9 10*3/uL High 0 - 0.8 10*3/uL [place] Monocytes/100 WBC (Bld) 8.7 % 2 - 10 % [place] Platelet mean volume (Bld) [Entitic vol] 8.2 fL 7.4 - 10.4 fL [place] Platelets (Bld) [#/Vol] 282 10*3/uL 140 - 440 10*3/uL [place] RBC (Bld) [#/Vol] 5.56 10*6/uL 4.4 - 5.9 10*6/uL [place] WBC (Bld) [#/Vol] 10.6 10*3/uL 3.6 - 10.7 10*3/uL [place] Test Performed by [facility], [address] , [place], [place] [id number] [place] [address] Hemogram w/ Autodiffon 08-17 Abs Baso Cnt 0.0 10*3/uL Normal 0.0-0.2 [facility] Comment on above: Performed By: #### H EMDF, CMP3, LIPA4 #### [facility] [address] [place] [address] Abs Neutrophile Cnt 7.3 10*3/uL High 1.8-7.0 [facility] Comment on above: Performed By: #### H EMDF, CMP3, LIPA4 #### [facility] [address] [place] [address] Basophils/100 WBC (Bld) 0.4 % Normal 0.0-2.0 [facility] Comment on above: Performed By: #### H EMDF, CMP3, LIPA4 #### [facility] [address] [place] [address] Eosinophils (Bld) [#/Vol] 0.1 10*3/uL Normal 0.0-0.5 [facility] Comment on above: Performed By: #### H EMDF, CMP3, LIPA4 #### [facility] [address] [place] [address] Eosinophils/100 WBC (Bld) 1.2 % Normal 1.0-6.0 [facility] Comment on above: Performed By: #### H EMDF, CMP3, LIPA4 #### [facility] [address] [place] [address] Erythrocyte distribution width (RBC) [Ratio] 14.4 % Normal 11.5-14.5 [facility] Comment on above: Performed By: #### H EMDF, CMP3, LIPA4 #### [facility] [address] [place] [address] Granulocytes/100 WBC (Bld) 69.1 % Normal 40.0-80.0 [facility] Comment on above: Performed By: #### H EMDF, CMP3, LIPA4 #### [facility] [address] [place] [address] Hematocrit (Bld) [Volume fraction] 47.4 % Normal 40.0-52.0 [facility] Comment on above: Performed By: #### H EMDF, CMP3, LIPA4 #### [facility] [address] [place] [address] Hemoglobin (Bld) [Mass/Vol] 16.3 g/dL Normal 13.0-18.0 [facility] Comment on above: Performed By: #### H EMDF, CMP3, LIPA4 #### [facility] [address] [place] [address] Lymphocytes (Bld) [#/Vol] 2.2 10*3/uL Normal 1.0-4.3 [facility] Comment on above: Performed By: #### H EMDF, CMP3, LIPA4 #### [facility] [address] [place] [address] Lymphocytes/100 WBC (Bld) 20.6 % Normal 20.0-40.0 [facility] Comment on above: Performed By: #### H EMDF, CMP3, LIPA4 #### [facility] [address] [place] [address] MCH (RBC) [Entitic mass] 29.4 pg Normal 26.0-34.0 [facility] Comment on above: Performed By: #### H EMDF, CMP3, LIPA4 #### [facility] [address] [place] [address] MCHC (RBC) [Mass/Vol] 34.5 % Normal 32.0-36.0 [facility] Comment on above: Performed By: #### H EMDF, CMP3, LIPA4 #### [facility] [address] [place] [address] MCV (RBC) [Entitic vol] 85.3 fL Normal 80.0-98.0 [facility] Comment on above: Performed By: #### H EMDF, CMP3, LIPA4 #### [facility] [address] [place] [address] Monocytes (Bld) [#/Vol] 0.9 10*3/uL High 0.0-0.8 [facility] Comment on above: Performed By: #### H EMDF, CMP3, LIPA4 #### [facility] [address] [place] [address] Monocytes/100 WBC (Bld) 8.7 % Normal 2.0-10.0 [facility] Comment on above: Performed By: #### H EMDF, CMP3, LIPA4 #### [facility] [address] [place] [address] Platelet mean volume (Bld) [Entitic vol] 8.2 fL Normal 7.4-10.4 [facility] Comment on above: Performed By: #### H EMDF, CMP3, LIPA4 #### [facility] [address] [place] [address] Platelets (Bld) [#/Vol] 282 10*3/uL Normal 140-440 [facility] Comment on above: Performed By: #### H EMDF, CMP3, LIPA4 #### [facility] [address] [place] [address] RBC (Bld) [#/Vol] 5.56 10*6/uL Normal 4.40-5.90 [facility] Comment on above: Performed By: #### H EMDF, CMP3, LIPA4 #### [facility] [address] [place] [address] WBC (Bld) [#/Vol] 10.6 10*3/uL Normal 3.6-10.7 [facility] Comment on above: Performed By: #### H EMDF, CMP3, LIPA4 #### [facility] [address] [place] [address] Lipaseon 08-17-2019 Lipase [Catalytic activity/Vol] 122 U/L Normal 23-300 [facility] Comment on above: Performed By: #### H EMDF, CMP3, LIPA4 #### [facility] [address] [place] [address] Lipase [Catalytic activity/Vol] 122 U/L 23 - 300 U/L [place] Otheron 08-17-2019 Test Performed by [facility], [address] , [place], [place] [id number] [place] [address] Urinalysison 08-17-2019 Appearance (U) Clear Clear NA [place] Bilirubin Urine Negative Negative mg/dL [place] Color (U) YELLOW Lt. Yellow NA [place] Glucose, Ur Normal Normal (<70) mg/dL [place] Ketones Ql (U) Negative Negative mg/dL [place] LEUKOCYTES, UA Negative Negative Serafin/uL [place] Nitrite, Urine Negative Negative NA [place] Occult Blood,Urine Negative Negative mg/dL [place] pH (U) 7.0 [pH] [place] Protein (U) [Mass/Vol] 10 mg/dL Negative [place] RBC (U) [#/Vol] Negative 0 - 2 /[HPF] [place] Specific [place], Urine >1.030 [place] Squam Epithel, UA 0-2 3 - 5 /[HPF] [place] Urobilinogen, Urine Normal Normal (0-1) mg/dL [place] Volume 12 ml [place] WBC, UA 0-2 0 - 5 /[HPF] [place] Test Performed by [facility], [address] , [place], [place] [id number] [place] [address] XR CHEST STANDARD (2 VW)on 10-17-2018 Juan, [facility] Incoming Radiology Results From [facility] - 08/17/2019 11:48 AM EST Patient Name: RUTHIE CASTILLO ---Diagnostic Radiology--- Exam Date/Time 08/17/2019 11:28:11 EST Exam CR Chest PA/LAT Ordering Physician BENEDICT SCOTT Accession Number [id number] CPT4 Codes 26526 () Reason For Exam cough Report Chest PA and lateral 08/17/2019. Clinical Information: Cough. Findings: PA and lateral views of the chest were compared to a prior study 11/11/2016. The trachea is midline. The heart and mediastinal structures are unremarkable. No focal areas of consolidation or volume loss are seen. There are no pleural effusions. The visualized bony structures are intact. Impression: No acute process. No significant interval change. Report Dictated on --- Final --- Dictating Physician: MD OWENS RISA Signed Date and Time: 08/17/2019 11:42 am Signed by: MD OWENS RISA Transcribed Date and Time: 08/17/2019 11:43 [place] Patient Name: RUTHIE CASTILLO ---Diagnostic Radiology--- Exam Date/Time 08/17/2019 11:28:11 EST Exam CR Chest PA/LAT Ordering Physician Delicia JudeRODNEY BENEDICT Accession Number [id number] CPT4 Codes 05739 () Reason For Exam cough Report Chest PA and lateral 08/17/2019. Clinical Information: Cough. Findings: PA and lateral views of the chest were compared to a prior study 11/11/2016. The trachea is midline. The heart and mediastinal structures are unremarkable. No focal areas of consolidation or volume loss are seen. There are no pleural effusions. The visualized bony structures are intact. Impression: No acute process. No significant interval change. Report Dictated on --- Final --- Dictating Physician: MD OWENS RISA Signed Date and Time: 08/17/2019 11:42 am Signed by: MD OWENS RISA Transcribed Date and Time: 08/17/2019 11:43 [place] C-Reactive Proteinon 019 CRP [Mass/Vol] 6.8 mg/L High 0 - 6 mg/L [place] Comment on above: . Interpretation and review of laboratory results Abnormal [place] CBC Auto Differentialon Absolute Baso # 0.0 10*3/uL 0 - 0.2 10*3/uL [place] Absolute Neut # 12.4 10*3/uL High 1.8 - 7 10*3/uL [place] Basophils/100 WBC (Bld) 0.3 % 0 - 2 % [place] Eosinophils (Bld) [#/Vol] 0.0 10*3/uL 0 - 0.5 10*3/uL [place] Eosinophils/100 WBC (Bld) 0.2 % Low 1 - 6 % [place] Erythrocyte distribution width (RBC) [Ratio] 14.2 % 11.5 - 14.5 % [place] Granulocytes/100 WBC (Bld) 78.2 % 40 - 80 % [place] Hematocrit (Bld) [Volume fraction] 44.8 % 40 - 52 % [place] Hemoglobin (Bld) [Mass/Vol] 15.0 g/dL 13 - 18 g/dL [place] Interpretation and review of laboratory results Abnormal [place] Lymphocytes (Bld) [#/Vol] 2.6 10*3/uL 1 - 4.3 10*3/uL [place] Lymphocytes/100 WBC (Bld) 16.1 % Low 20 - 40 % [place] MCH (RBC) [Entitic mass] 29.3 pg 26 - 34 pg [place] MCHC (RBC) [Mass/Vol] 33.5 % 32 - 36 % [place] MCV (RBC) [Entitic vol] 87.3 fL 80 - 98 fL [place] Monocytes (Bld) [#/Vol] 0.8 10*3/uL 0 - 0.8 10*3/uL [place] Monocytes/100 WBC (Bld) 5.2 % 2 - 10 % [place] Platelet mean volume (Bld) [Entitic vol] 8.7 fL 7.4 - 10.4 fL [place] Platelets (Bld) [#/Vol] 275 10*3/uL 140 - 440 10*3/uL [place] RBC (Bld) [#/Vol] 5.13 10*6/uL 4.4 - 5.9 10*6/uL [place] WBC (Bld) [#/Vol] 15.8 10*3/uL High 3.6 - 10.7 10*3/uL [place] Test Performed by [facility], [address] [place] [address] [place] Comprehensive Metabolic Pane deja 08-07-2019 Albumin [Mass/Vol] 4.2 g/dL 3.5 - 5 g/dL [place] ALP [Catalytic activity/Vol] 59 U/L 38 - 126 U/L [place] ALT [Catalytic activity/Vol] 46 U/L 13 - 69 U/L [place] Anion gap [Moles/Vol] 8 mmol/L [place] AST [Catalytic activity/Vol] 29 U/L 15 - 46 U/L [place] Bilirubin Ql (U) 0.9 mg/dL 0.2 - 1.3 mg/dL [place] Calcium [Mass/Vol] 9.6 mg/dL 8.4 - 10. 4 mg/dL [place] Chloride [Moles/Vol] 107 mmol/L 98 - 10 7 mmol/L [place] CO2 [Moles/Vol] 26 mmol/L 22 - 30 mmol/L [place] Creatinine [Mass/Vol] 0.89 mg/dL 0.52 - 1.25 mg/dL [place] EGFR IF NonAfrican Syrian >60.0 >60 mL/min [place] Comment on above: Source- MDRD equatio n with creatinine calibration to IDMS(NKDEP) eGFR not recommended for drug dose adjustment GFR/1.73 sq M predicted among blacks MDRD (S/P/Bld) [Vol rate/Area] mL/min/{1.73_m2} >60 mL/min [place] Glucose [Mass/Vol] 97 mg/dL 70 - 100 mg/dL [place] Potassium [Moles/Vol] 4.1 mmol/L 3.5 - 5.1 mmol/L [place] Protein [Mass/Vol] 7.8 g/dL 6.3 - 8.2 g/dL [place] Sodium [Moles/Vol] 141 mmol/L 135 - 145 mmol/L [place] Urea nitrogen [Mass/Vol] 16 mg/dL 7 - 20 mg/dL [place] Otheron 08-07-2019 Test Performed by [address] [address] [place] Sedimentation Rateon 019 Interpretation and review of laboratory results Abnormal [place] Sed Rate 27 mm/h High 0 - 10 mm/h [place] Test Performed by [place] [address] [place] [address] [place] C-Reactive Proteinon 019 CRP [Mass/Vol] 7 mg/L High 0 - 6 mg/L [place] Comment on above: . CBC Auto Differentialon Absolute Baso # 0.1 10*3/uL 0 - 0.2 10*3/uL [place] Absolute Neut # 14.9 10*3/uL High 1.8 - 7 10*3/uL [place] Basophils/100 WBC (Bld) 0.4 % 0 - 2 % [place] Eosinophils (Bld) [#/Vol] 0.0 10*3/uL 0 - 0.5 10*3/uL [place] Eosinophils/100 WBC (Bld) 0.0 % Low 1 - 6 % [place] Erythrocyte distribution width (RBC) [Ratio] 14.5 % 11.5 - 14.5 % [place] Granulocytes/100 WBC (Bld) 93.6 % High 40 - 80 % [place] Hematocrit (Bld) [Volume fraction] 49.0 % 40 - 52 % [place] Hemoglobin (Bld) [Mass/Vol] 16.0 g/dL 13 - 18 g/dL [place] Interpretation and review of laboratory results Abnormal [place] Lymphocytes (Bld) [#/Vol] 0.9 10*3/uL Low 1 - 4.3 10*3/uL [place] Lymphocytes/100 WBC (Bld) 5.4 % Low 20 - 40 % [place] MCH (RBC) [Entitic mass] 28.7 pg 26 - 34 pg [place] MCHC (RBC) [Mass/Vol] 32.7 % 32 - 36 % [place] MCV (RBC) [Entitic vol] 88.0 fL 80 - 98 fL [place] Monocytes (Bld) [#/Vol] 0.1 10*3/uL 0 - 0.8 10*3/uL [place] Monocytes/100 WBC (Bld) 0.6 % Low 2 - 10 % [place] Platelet mean volume (Bld) [Entitic vol] 9.2 fL 7.4 - 10.4 fL [place] Platelets (Bld) [#/Vol] 282 10*3/uL 140 - 440 10*3/uL [place] RBC (Bld) [#/Vol] 5.57 10*6/uL 4.4 - 5.9 10*6/uL [place] WBC (Bld) [#/Vol] 16.0 10*3/uL High 3.6 - 10.7 10*3/uL [place] Test Performed by [facility], [address] [place] [address] [place] Comprehensive Metabolic Pane l w/ Reflex to MGon 08-06-2019 Albumin [Mass/Vol] 4.7 g/dL 3.5 - 5 g/dL [place] ALP [Catalytic activity/Vol] 71 U/L 38 - 126 U/L [place] ALT [Catalytic activity/Vol] 49 U/L 13 - 69 U/L [place] Anion gap [Moles/Vol] 14 mmol/L [place] AST [Catalytic activity/Vol] 36 U/L 15 - 46 U/L [place] Bilirubin Ql (U) 1.1 mg/dL 0.2 - 1.3 mg/dL [place] Calcium [Mass/Vol] 10.0 mg/dL 8.4 - 10. 4 mg/dL [place] Chloride [Moles/Vol] 103 mmol/L 98 - 10 7 mmol/L [place] CO2 [Moles/Vol] 20 mmol/L Low 22 - 30 mmol/L [place] Creatinine [Mass/Vol] 0.77 mg/dL 0.52 - 1.25 mg/dL [place] EGFR IF NonAfrican [place] >60.0 >60 mL/min [place] Comment on above: Source- MDRD equatio n with creatinine calibration to IDMS(NKDEP) eGFR not recommended for drug dose adjustment GFR/1.73 sq M predicted among blacks MDRD (S/P/Bld) [Vol rate/Area] mL/min/{1.73_m2} >60 mL/min [place] Glucose [Mass/Vol] 143 mg/dL High 70 - 100 mg/dL [place] Potassium [Moles/Vol] 4.4 mmol/L 3.5 - 5.1 mmol/L [place] Protein [Mass/Vol] 8.9 g/dL High 6.3 - 8.2 g/dL [place] Sodium [Moles/Vol] 137 mmol/L 135 - 145 mmol/L [place] Urea nitrogen [Mass/Vol] 14 mg/dL 7 - 20 mg/dL [place] Otheron 08-06-2019 Interpretation and review of laboratory results Abnormal [place] Test Performed by [facility], [address] [place] [address], [place] [address] [place], [place] Sedimentation Rateon 019 Interpretation and review of laboratory results Abnormal [place] Sed Rate 39 mm/h High 0 - 10 mm/h [place] Test Performed by [facility], [address] [place] [id number] [place] CBC auto differentialon 07-02 Absolute Baso # 0.0 10*3/uL 0 - 0.2 10*3/uL [place] Absolute Neut # 15.0 10*3/uL High 1.8 - 7 10*3/uL [place] Basophils/100 WBC (Bld) 0.2 % 0 - 2 % [place] Eosinophils (Bld) [#/Vol] 0.0 10*3/uL 0 - 0.5 10*3/uL [place] Eosinophils/100 WBC (Bld) 0.0 % Low 1 - 6 % [place] Erythrocyte distribution width (RBC) [Ratio] 14.0 % 11.5 - 14.5 % [place] Granulocytes/100 WBC (Bld) 93.4 % High 40 - 80 % [place] Hematocrit (Bld) [Volume fraction] 45.5 % 40 - 52 % [place] Hemoglobin (Bld) [Mass/Vol] 15.0 g/dL 13 - 18 g/dL [place] Interpretation and review of laboratory results Abnormal [place] Lymphocytes (Bld) [#/Vol] 0.7 10*3/uL Low 1 - 4.3 10*3/uL [place] Lymphocytes/100 WBC (Bld) 4.4 % Low 20 - 40 % [place] MCH (RBC) [Entitic mass] 28.9 pg 26 - 34 pg [place] MCHC (RBC) [Mass/Vol] 33.0 % 32 - 36 % [place] MCV (RBC) [Entitic vol] 87.6 fL 80 - 98 fL [place] Monocytes (Bld) [#/Vol] 0.3 10*3/uL 0 - 0.8 10*3/uL [place] Monocytes/100 WBC (Bld) 2.0 % 2 - 10 % [place] Platelet mean volume (Bld) [Entitic vol] 9.2 fL 7.4 - 10.4 fL [place] Platelets (Bld) [#/Vol] 301 10*3/uL 140 - 440 10*3/uL [place] RBC (Bld) [#/Vol] 5.19 10*6/uL 4.4 - 5.9 10*6/uL [place] WBC (Bld) [#/Vol] 16.1 10*3/uL High 3.6 - 10.7 10*3/uL [place] Test Performed by [facility], [address] [place] [address] [place] Comprehensive Metabolic Pane l w/ Reflex to MGon 07-29-2019 Albumin [Mass/Vol] 4.3 g/dL 3.5 - 5 g/dL [place] ALP [Catalytic activity/Vol] 65 U/L 38 - 126 U/L [place] ALT [Catalytic activity/Vol] 35 U/L 13 - 69 U/L [place] Anion gap [Moles/Vol] 9 mmol/L [place] AST [Catalytic activity/Vol] 23 U/L 15 - 46 U/L [place] Bilirubin Ql (U) 0.7 mg/dL 0.2 - 1.3 mg/dL [place] Calcium [Mass/Vol] 9.6 mg/dL 8.4 - 10. 4 mg/dL [place] Chloride [Moles/Vol] 106 mmol/L 98 - 10 7 mmol/L [place] CO2 [Moles/Vol] 24 mmol/L 22 - 30 mmol/L [place] Creatinine [Mass/Vol] 0.78 mg/dL 0.52 - 1.25 mg/dL [place] EGFR IF NonAfrican [place] >60.0 >60 mL/min [place] Comment on above: Source- MDRD equatio n with creatinine calibration to IDMS(NKDEP) eGFR not recommended for drug dose adjustment GFR/1.73 sq M predicted among blacks MDRD (S/P/Bld) [Vol rate/Area] mL/min/{1.73_m2} >60 mL/min [place] Glucose [Mass/Vol] 144 mg/dL High 70 - 100 mg/dL [place] Interpretation and review of laboratory results Abnormal [place] Potassium [Moles/Vol] 3.9 mmol/L 3.5 - 5.1 mmol/L [place] Protein [Mass/Vol] 7.9 g/dL 6.3 - 8.2 g/dL [place] Sodium [Moles/Vol] 139 mmol/L 135 - 145 mmol/L [place] Urea nitrogen [Mass/Vol] 12 mg/dL 7 - 20 mg/dL [place] Test Performed by [id number] [place] [address] C. difficile toxin Molecular on 07-28-2019 CLOSTRIDIUM DIFFICILE NEGATIVE Methodology - Real Time PCR (Mocoplex) Clinical judgement must be used when interpreting results. Positive results may reflect colonization. Indeterminate results suggest a new specimen be submitted. [place] Test Performed by [address] [address] [place] CBC auto differentialon 07-01 Absolute Baso # 0.0 10*3/uL 0 - 0.2 10*3/uL [place] Absolute Neut # 8.9 10*3/uL High 1.8 - 7 10*3/uL [place] Basophils/100 WBC (Bld) 0.3 % 0 - 2 % [place] Eosinophils (Bld) [#/Vol] 0.0 10*3/uL 0 - 0.5 10*3/uL [place] Eosinophils/100 WBC (Bld) 0.0 % Low 1 - 6 % [place] Erythrocyte distribution width (RBC) [Ratio] 14.2 % 11.5 - 14.5 % [place] Granulocytes/100 WBC (Bld) 89.8 % High 40 - 80 % [place] Hematocrit (Bld) [Volume fraction] 44.4 % 40 - 52 % [place] Hemoglobin (Bld) [Mass/Vol] 15.1 g/dL 13 - 18 g/dL [place] Interpretation and review of laboratory results Abnormal [place] Lymphocytes (Bld) [#/Vol] 0.7 10*3/uL Low 1 - 4.3 10*3/uL [place] Lymphocytes/100 WBC (Bld) 7.4 % Low 20 - 40 % [place] MCH (RBC) [Entitic mass] 29.7 pg 26 - 34 pg [place] MCHC (RBC) [Mass/Vol] 34.1 % 32 - 36 % [place] MCV (RBC) [Entitic vol] 87.2 fL 80 - 98 fL [place] Monocytes (Bld) [#/Vol] 0.2 10*3/uL 0 - 0.8 10*3/uL [place] Monocytes/100 WBC (Bld) 2.5 % 2 - 10 % [place] Platelet mean volume (Bld) [Entitic vol] 9.2 fL 7.4 - 10.4 fL [place] Platelets (Bld) [#/Vol] 263 10*3/uL 140 - 440 10*3/uL [place] RBC (Bld) [#/Vol] 5.09 10*6/uL 4.4 - 5.9 10*6/uL [place] WBC (Bld) [#/Vol] 9.9 10*3/uL 3.6 - 10.7 10*3/uL [place] Test Performed by [facility], [address] [place] [address] [place] Comprehensive Metabolic Pane l w/ Reflex to MGon 07-28-2019 Albumin [Mass/Vol] 4.1 g/dL 3.5 - 5 g/dL [place] ALP [Catalytic activity/Vol] 61 U/L 38 - 126 U/L [place] ALT [Catalytic activity/Vol] 31 U/L 13 - 69 U/L [place] Anion gap [Moles/Vol] 8 mmol/L [place] AST [Catalytic activity/Vol] 27 U/L 15 - 46 U/L [place] Bilirubin Ql (U) 0.8 mg/dL 0.2 - 1.3 mg/dL [place] Calcium [Mass/Vol] 9.2 mg/dL 8.4 - 10. 4 mg/dL [place] Chloride [Moles/Vol] 106 mmol/L 98 - 10 7 mmol/L [place] CO2 [Moles/Vol] 25 mmol/L 22 - 30 mmol/L [place] Creatinine [Mass/Vol] 0.77 mg/dL 0.52 - 1.25 mg/dL [place] EGFR IF NonAfrican Syrian >60.0 >60 mL/min [place] Comment on above: Source- MDRD equatio n with creatinine calibration to IDMS(NKDEP) eGFR not recommended for drug dose adjustment GFR/1.73 sq M predicted among blacks MDRD (S/P/Bld) [Vol rate/Area] mL/min/{1.73_m2} >60 mL/min [place] Glucose [Mass/Vol] 143 mg/dL High 70 - 100 mg/dL [place] Interpretation and review of laboratory results Abnormal [place] Potassium [Moles/Vol] 4.0 mmol/L 3.5 - 5.1 mmol/L [place] Protein [Mass/Vol] 7.6 g/dL 6.3 - 8.2 g/dL [place] Sodium [Moles/Vol] 139 mmol/L 135 - 145 mmol/L [place] Urea nitrogen [Mass/Vol] 14 mg/dL 7 - 20 mg/dL [place] Test Performed by [facility], [address] [place] [address] [place] ALLIED HEALTHon 07-27-2019 ALLIED HEALTH HNO ID: [id number] Author: Bianca (RtMari Scott Service: ? Author Type: Surgical Assistant Type: Allied Health Filed: 07/27/2019 2:40 PM Note Text: Radiology Service Progress Note PATIENT NAME: Ruthie Castillo DATE OF SERVICE: July 27, 2019 TIME: 2:40 PM PATIENT IDENTITY VERIFICATION COMPLETED USING TWO (2) METHODS: Name and Date of confirmed by patient verbally. PATIENT GENDER DATA: Male PATIENT RELEVANT IMPLANT DATA REVIEWED: Not Applicable RADIOLOGY DEPARTMENT: General X-ray: Exam(s) Completed: Chest X-Ray Abdomen X-Ray Abdomen PERIPHERAL IV DATA: Not applicable SIGNED BY: RT Alissa July 27, 2019 2:40 PM Normal [facility] CBC and Differentialon 07-27 Abs Baso 0.03 k/uL Normal <0.11 [facility] Comment on above: Performed By: #### C BCSTEVEN DE LA GARZA #### [facility] [address] [place] [address] Abs Bath 0.66 k/uL Normal <0.87 [facility] Comment on above: Performed By: #### C BCFREDERIC CMP #### [facility] [address] [place] [address] Abs Neut 6.92 k/uL Normal 1.45-7.50 [facility] Comment on above: Performed By: #### C BCFREDERIC CMP #### [facility] [address] [place] [address] Basophils/100 WBC (Bld) 0.3 % Normal [facility] Comment on above: Performed By: #### C BCFREDERIC CMP #### [facility] [address] [place] [address] Eosinophils (Bld) [#/Vol] 0.16 10*3/uL Normal <0.46 [facility] Comment on above: Performed By: #### C BCFREDERIC CMP #### [facility] [address] [place] [address] Eosinophils/100 WBC (Bld) 1.5 % Normal [facility] Comment on above: Performed By: #### C BCDIRomero CMP #### [facility] [address] [place] [address] Erythrocyte distribution width (RBC) [Ratio] 14.4 % Normal 11.5-15.0 [facility] Comment on above: Performed By: #### C BCDIF, CMP #### [facility] [address] Hematocrit (Bld) [Volume fraction] 46.2 % Normal 39.0-51.0 [facility] Comment on above: Performed By: #### C BCDIF, CMP #### [facility] [address] Hemoglobin (Bld) [Mass/Vol] 15.0 g/dL Normal 13.0-17.0 [facility] Comment on above: Performed By: #### C BCDIF, CMP #### [facility] [address] [place] [address] Lymphocytes (Bld) [#/Vol] 2.87 10*3/uL Normal 1.00-4.00 [facility] Comment on above: Performed By: #### C BCDIF, CMP #### [facility] [address] [place], [place] [phone] Lymphocytes/100 WBC (Bld) 27.0 % Normal [facility] Comment on above: Performed By: #### C BCDIF, CMP #### [facility] [address] [place], [place] [phone] MCH (RBC) [Entitic mass] 28.7 pG Normal 26.0-34.0 [facility] Comment on above: Performed By: #### C BCDIF, CMP #### [facility] [address] MCHC (RBC) [Mass/Vol] 32.5 g/dL Normal 30.5-36.0 [facility] Comment on above: Performed By: #### C BCDIF, CMP #### [facility] [address] MCV (RBC) [Entitic vol] 88.5 fL Normal 80.0-100.0 [facility] Comment on above: Performed By: #### C BCDIF, CMP #### [facility] [address] [place], [place] [phone] Monocytes/100 WBC (Bld) 6.2 % Normal [facility] Comment on above: Performed By: #### C BCDIF, CMP #### [facility] [address] [place] [phone] Neutrophils/100 WBC (Bld) 65.0 % Normal [facility] Comment on above: Performed By: #### C BCKWABENAF, CMP #### [facility] [address] [place] [phone] Platelet mean volume (Bld) [Entitic vol] 10.9 fL Normal 9.0-12.7 [facility] Comment on above: Performed By: #### C BCKWABENAF, CMP #### [facility] [address] [place] [phone] Platelets (Bld) [#/Vol] 268 10*3/uL Normal 150-400 [facility] Comment on above: Performed By: #### C REBA, CMP #### [facility] [address] [place] [phone] RBC (Bld) [#/Vol] 5.22 10*6/uL Normal 4.20-6.00 [facility] Comment on above: Performed By: #### C BCKWABENAF CMP #### [facility] [address] [place] [phone] WBC (Bld) [#/Vol] 10.64 10*3/uL Normal 3.70-11.00 [facility] Comment on above: Performed By: #### C BCFREDERIC CMP #### [facility] [address] [place] [phone] Comp Metabolic Panelon 07-27 Albumin [Mass/Vol] 4.1 g/dL Normal 3.9-4.9 [facility] Comment on above: Performed By: #### C BCKWABENAF, CMP #### [facility] [address] [facility] [phone] ALP [Catalytic activity/Vol] 66 U/L Normal 38-113 [facility] Comment on above: Performed By: #### C BCDIF, CMP #### [facility] [address] [place] [phone] ALT [Catalytic activity/Vol] 27 U/L Normal 10-54 [facility] Comment on above: Performed By: #### C BCKWABENAF, CMP #### [facility] [address] [place] [phone] Anion gap [Moles/Vol] 13 mmol/L Normal 9-18 [facility] Comment on above: Performed By: #### C BCDIF, CMP #### [facility] [address] [place] [address] AST [Catalytic activity/Vol] 18 U/L Normal 14-40 [facility] Comment on above: Performed By: #### C BCDIF, CMP #### [facility] [address] [place] [address] Bilirubin [Mass/Vol] 0.4 mg/dL Normal 0.2-1.3 [facility] Comment on above: Performed By: #### C BCDIF, CMP #### [facility] [address] [place] [address] Calcium [Mass/Vol] 8.9 mg/dL Normal 8.5-10.2 [facility] Comment on above: Performed By: #### C BCDIF, CMP #### [facility] [address] [place] [address] Chloride [Moles/Vol] 104 mmol/L Normal 97-105 [facility] Comment on above: Performed By: #### C BCDIF, CMP #### [facility] [address] [place] [address] CO2 [Moles/Vol] 26 mmol/L Normal 22-30 [facility] Comment on above: Performed By: #### C BCDIF, CMP #### [facility] [address] [place] [address] Creatinine [Mass/Vol] 0.88 mg/dL Normal 0.73-1.22 [facility] Comment on above: Performed By: #### C BCDIF, CMP #### [facility] [address] [place] [address] eGFR- Amer. >60 Normal [facility] Comment on above: Performed By: #### C BCDIF, CMP #### [facility] [address] [place] [address] GFR/1.73 sq M predicted among non-blacks MDRD (S/P/Bld) [Vol rate/Area] mL/min/{1.73_m2} Normal [facility] Comment on above: Result Comment: eGFR (Estimated GFR) Units of measure: mL/min/1.73 meters squared eGFR is derived from the reexpressed MDRD Study equation using the following parameters: serum creatinine, age, gender and race. The creatinine assay has been calibrated to be traceable to IDMS. An eGFR <60 mL/min/1.73m2 for >3 months is consistent with chronic kidney disease. Refer to KDOQI guidelines for clinical interpretation. In patients with unstable renal function, e.g. those with acute kidney injury, the eGFR may not accurately reflect actual GFR. Performed By: #### C BCKWABENAF, CMP #### [facility] [address] [facility] [phone] Glucose [Mass/Vol] 83 mg/dL Normal 74-99 [facility] Comment on above: Result Comment: The [place] Diabetes [employer] (ADA) provides guidance for cutoff values for fasting glucose and random glucose. The ADA defines fasting as no caloric intake for at least 8 hours. Fasting plasma glucose results between 100 to 125 mg/dL indicate increased risk for diabetes (prediabetes). Fasting plasma glucose results greater than or equal to 126 mg/dL meet the criteria for diagnosis of diabetes. In the absence of unequivocal hyperglycemia, results should be confirmed by repeat testing. In a patient with classic symptoms of hyperglycemia or hyperglycemic crisis, random plasma glucose results greater than or equal to 200 mg/dL meet the criteria for diagnosis of diabetes. Reference: Standards of Medical Care in Diabetes 2016, [place] [employer]. Diabetes Care. 2016.39(Suppl 1). Performed By: #### C BCDIF, CMP #### [facility] [address] [facility] [phone] Potassium [Moles/Vol] 3.2 mmol/L Low 3.7-5.1 [facility] Comment on above: Performed By: #### C BCDIF, CMP #### [facility] [address] [facility] [phone] Protein [Mass/Vol] 6.9 g/dL Normal 6.3-8.0 [facility] Comment on above: Performed By: #### C BCDIF, CMP #### [facility] [address] [facility] [phone] Sodium [Moles/Vol] 143 mmol/L Normal 136-144 [facility] Comment on above: Performed By: #### C BCDIF, CMP #### [facility] [address] [facility] [phone] Urea nitrogen [Mass/Vol] 14 mg/dL Normal 06-23 [facility] Comment on above: Performed By: #### C BCDIF, CMP #### [facility] [address] [facility] [phone] ED NOTEon 07-27-2019 ED NOTE HNO ID: [id number] Author: Britni NavasRn) JUANA Buckley Service: ? Author Type: Registered Nurse Type: ED Notes Filed: 07/27/2019 3:26 PM Note Text: Diagnosis Crohns/Colitis. No signs of respiratory or cardiac distress at this time. Skin warm, dry and acyanotic. Pt. stable. Pt. agreeable to transfer and understands reason for admission to [facility] 742-A. Report given to JUANA Haley. [facility] ED NOTE HNO ID: [id number] Author: Britni Manuel) JUANA Buckley Service: ? Author Type: Registered Nurse Type: ED Notes Filed: 07/27/2019 2:13 PM Note Text: Pt to XR via wheelchair [facility] ED NOTE HNO ID: [id number] Author: Britni NavasRn) JUANA Buckley Service: ? Author Type: Registered Nurse Type: ED Notes Filed: 07/27/2019 2:01 PM Note Text: Assumed care of patient. Pt. comes to ED for abd pain with diarrhea. C/O hx of crohns disease, last flare up x 5 months ago. Pt to ED with 4-5 episodes of diarrhea/day since last week. Pt recently admitted to [place] for Crohns flare but left AMA for family emergency. Pt. is alert and oriented X 3. ABC's intact, respirations even and unlabored. Skin acyanotic, warm and dry. Abdomen is soft but tender to palpation transverse lower abdomen. BS X 4. Pain 10/10. Denies CP/SOB, numbness/tingling, weak/dizzy, fever/chills. Will notify MD of any acute changes. Side rails up x2, bed in lowest locked position, call light within reach, ID, allergy band on. [facility] ED NOTE HNO ID: [id number] Author: Arcelia NavasRn) JUANA Borges Service: ? Author Type: Registered Nurse Type: ED Notes Filed: 07/27/2019 11:20 AM Note Text: Pt to ED with diarrhea and abd pain x 1 week, progressively worsening. Pt was admitted to [place] for 2.5 days but had to sign out because his father got in an accident. [facility] ED PROV NOTEon 07-27-2019 ED PROV NOTE HNO ID: [id number] Author: Kamron Jay MD Service: Emergency Medicine Author Type: Physician Type: ED Provider Notes Filed: 07/28/2019 7:35 AM Note Text: ED Provider Note Patient Name: Ruthie Castillo SERVICE DATE: 07/27/19 History Patient presents with: Abdominal Pain Ruthie Castillo is a 29 year old male with PMH that includes bipolar disorder, diverticulitis, HTN, IBS / Crohn's, skull fracture, learning disorder, snoring who presents with complaint of abdominal pain across his lower abdomen. Patient signed out of [facility] 2 days ago because my dad was in a bad accident . He states he was doing well initially and hydrocodone was helping the pain but it is not working anymore. Hot packs, bentyl, and muscle rub are also not helping the pain. he endorses compliance with Cipro and Flagyl He endorses nausea and denies: vomiting, fever, bloody stools. PAST MEDICAL HISTORY Diagnosis Date - Adjustment [...] PAST SURGICAL HISTORY Procedure Laterality Date - COLONOSCOPY 09/15/2014 hemorrhoids - PAST SURGICAL HISTORY OF 2007 9 plantar warts right foot - PAST SURGICAL HISTORY OF 2011 testicular FAMILY HISTORY Problem Relation Age of Onset - other (FIBROMYLAGIA) Mother - other (OSTEOARHTRITIS) Mother - other (DISASSOCIATIVE IDENTITY DISORDER) Mother - other (CONVERSION DISORDER) Mother SEIZURE D/T THIS - Asthma Maternal Grandmother - COPD Maternal Grandmother - Heart Maternal Grandfather Social History Tobacco Use - Smoking status: Current Every Day Smoker Packs/day: 0.00 Years: 1.00 Pack years: 0.00 Types: Cigarettes - Smokeless tobacco: Former User - Tobacco comment: 3 cigarettes per day Substance and Sexual Activity - Alcohol use: Yes Comment: rarely - Drug use: No - Sexual activity: Not on file ALLERGIES Allergen Reactions - Acetaminophen Anaphylaxis - Bees Anaphylaxis - Compazine [Prochlor* Intolerance lock jaw - Dextromethorphan Hbr Anaphylaxis - Mushroom Combinatio* Hives - Nyquil [Doxylamin-P* Shortness of Breath - Poison Mimi Rash - Pseudoephedrine Anaphylaxis Review of Systems Constitutional: Negative for chills and fever. Respiratory: Negative. Cardiovascular: Negative. Gastrointestinal: Positive for abdominal pain and nausea. Negative for anal bleeding. Musculoskeletal: Negative. Skin: Negative. Neurological: Negative for weakness and numbness. Psychiatric/Behavioral: Negative for behavioral problems. All other systems reviewed and are negative. Physical Exam BP 155/105 Pulse 78 Temp (Src) 97.8 (Temporal) Resp 18 Wt 287 lb 14.4 oz (130.6kg) SpO2 99% O2 Therapy: Room Air Physical Exam Constitutional: He is oriented to person, place, and time. He appears well-developed and well-nourished. Lying in bed, alert, and appears to be uncomfortable with pain. HENT: Head: Normocephalic and atraumatic. Eyes: Conjunctivae are normal. No scleral icterus. Cardiovascular: Normal rate, regular rhythm and normal heart sounds. Pulmonary/Chest: Effort normal and breath sounds normal. No stridor. No respiratory distress. He has no wheezes. He has no rales. He exhibits no tenderness. Abdominal: Soft. He exhibits no distension and no mass. There is tenderness (lower abdomen). There is no rebound and no guarding. No hernia. Neurological: He is alert and oriented to person, place, and time. Skin: Skin is warm and dry. He is not diaphoretic. Psychiatric: He has a normal mood and affect. Nursing note and vitals reviewed. 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 Patient is presently afebrile with normal vital signs and generalized lower abdominal tenderness without peritoneal signs. No leukocytosis. No evidence of blood loss anemia. He is presently being treated with oral Cipro and Flagyl. Medical records from 07/24/19 reviewed: CTAP in [place] on 07/22 showing possible diverticulitis and enterovesicular fistula. Patient was started on Cipro/Flagyl there and sent home. Return the following night and received another CTAP showing sigmoid abscess, some free air, and entervesicular fistula without signs of ileum inflammation. MRA 07/25/19: Crohn's Flare with Enterovesicular fistulas with small abscess and micrperforation and microperforation - showing thin communication between the bowel and bladder consistent with small fistula Patient treated with IV hydration, ketorolac, antiemetics, and one dose of morphine. Pain poorly controlled. No repeat imaging performed today since exam and labs are essentially stable. Discussed with Dr Thompson at [facility] who accepted patient for transfer and admit to hospital medicine service. SIGNATURE: SIVAN Carr (Pa) 07/27/[id number] Attending Note I have personally performed a face to face assessment of the patient and have reviewed the PA/PESTICIDE CONTROL INSPECTOR note. My vines findings include: History is patient came in with abdominal pain and diarrhea. He has a history of Crohn's disease, diverticulitis and bipolar disorder. He was recently admitted to the hospital, but had to leave on his own accord because his dad wasn't a bad car accident. He started having worsening symptoms recently with diffuse abdominal pain and diarrhea. No mention of any vomiting. No fevers. No urinary issues. No other associated complaints. He said he is currently on steroids for this. Exam is patient is in moderate to severe discomfort has of his symptoms although nontoxic. Lungs are clear. Heart regular rate and rhythm. Abdomen shows diffuse palpable tenderness although no localizing rebound or guarding. Bowel sounds normal. No masses. Skin is warm and dry. The rest of his preliminary exam otherwise unremarkable. Assessment/Plan are imaging was deferred since he just had a CAT scan recently. CBC was unremarkable with a normal white count. CMP unremarkable except for potassium 3.2. Abdominal series x-rays per radiology showed no evidence of obstruction or other abnormality. Since his care has been mainly provided at [facility], physician psychiatric technician assistant contacted the admitting staff. The patient will be accepted for transfer for further treatment. Please refer to PA dictation for further details. Other additions or changes: None Signature: Kamron Jay MD Date: 07/28/2019 Time: 7:32 AM Kamron Jay MD 07/28/19 0735 [facility] XR ACUTE ABD SERIES 2V ABD+C XRon 07-27-2019 XR ACUTE ABD SERIES 2V ABD+CXR * * *Final Report* * * DATE OF EXAM: Jul 27 2019 2:38PM MDX [id number] - XR ACUTE ABD SERIES 2V ABD+CXR / PROCEDURE REASON: Abd pain, unspecified * * * * Physician Interpretation * * * * Acute abdominal series HISTORY: 29 years old Clinical information: Abd pain, unspecified PT STS CROHNS FLARE UP TECHNIQUE: Images: XR ACUTE ABD SERIES 2V ABD+CXR Comparison: 09/22/2018. RESULT: Findings: No confluent infiltrate, effusion, or pneumothorax identified. Elevation of the right hemidiaphragm. Cardiac and mediastinal silhouettes are within normal limits. Gaseous distended small bowel loops are seen within the abdomen. Gas is noted in the colon. No free air is seen. IMPRESSION: No evidence of bowel obstruction. No acute cardiopulmonary disease identified. Storage And Backup Administrator: SHILPI Transcribe Date/Time: Jul 27 2019 2:41P Dictated by : ERIK ELLINGTON MD This examination was interpreted and the report reviewed and electronically signed by: ERIK ELLINGTON MD on Jul 27 2019 2:42PM EST [id number] [facility] CBC auto differentialon 07-01 Absolute Baso # 0.0 10*3/uL 0 - 0.2 10*3/uL [place], [place] Absolute Neut # 11.4 10*3/uL High 1.8 - 7 10*3/uL [place] Basophils/100 WBC (Bld) 0.0 % 0 - 2 % [place] Eosinophils (Bld) [#/Vol] 0.0 10*3/uL 0 - 0.5 10*3/uL [place] Eosinophils/100 WBC (Bld) 0.0 % Low 1 - 6 % [place] Erythrocyte distribution width (RBC) [Ratio] 14.0 % 11.5 - 14.5 % [place] Granulocytes/100 WBC (Bld) 95.1 % High 40 - 80 % [place] Hematocrit (Bld) [Volume fraction] 45.4 % 40 - 52 % [place] Hemoglobin (Bld) [Mass/Vol] 15.3 g/dL 13 - 18 g/dL [place] Interpretation and review of laboratory results Abnormal [place] Lymphocytes (Bld) [#/Vol] 0.5 10*3/uL Low 1 - 4.3 10*3/uL [place] Lymphocytes/100 WBC (Bld) 4.4 % Low 20 - 40 % [place] MCH (RBC) [Entitic mass] 29.4 pg 26 - 34 pg [place] MCHC (RBC) [Mass/Vol] 33.7 % 32 - 36 % [place] MCV (RBC) [Entitic vol] 87.2 fL 80 - 98 fL [place] Monocytes (Bld) [#/Vol] 0.1 10*3/uL 0 - 0.8 10*3/uL [place] Monocytes/100 WBC (Bld) 0.5 % Low 2 - 10 % [place] Platelet mean volume (Bld) [Entitic vol] 9.7 fL 7.4 - 10.4 fL [place] Platelets (Bld) [#/Vol] 239 10*3/uL 140 - 440 10*3/uL [place] RBC (Bld) [#/Vol] 5.21 10*6/uL 4.4 - 5.9 10*6/uL [place] WBC (Bld) [#/Vol] 12.0 10*3/uL High 3.6 - 10.7 10*3/uL [place] Test Performed by [facility], [address] [place] [id number] [place] [address] Comprehensive Metabolic Pane l w/ Reflex to MGon 07-25-2019 Albumin [Mass/Vol] 4.5 g/dL 3.5 - 5 g/dL [place] ALP [Catalytic activity/Vol] 71 U/L 38 - 126 U/L [place] ALT [Catalytic activity/Vol] 37 U/L 13 - 69 U/L [place] Anion gap [Moles/Vol] 9 mmol/L [place] AST [Catalytic activity/Vol] 33 U/L 15 - 46 U/L [place] Bilirubin Ql (U) 0.7 mg/dL 0.2 - 1.3 mg/dL [place] Calcium [Mass/Vol] 9.8 mg/dL 8.4 - 10. 4 mg/dL [place] Chloride [Moles/Vol] 104 mmol/L 98 - 10 7 mmol/L [place] CO2 [Moles/Vol] 25 mmol/L 22 - 30 mmol/L [place] Creatinine [Mass/Vol] 0.8 mg/dL 0.52 - 1.25 mg/dL [place] EGFR IF NonAfrican Syrian >60.0 >60 mL/min [place] Comment on above: Source- MDRD equatio n with creatinine calibration to IDMS(NKDEP) eGFR not recommended for drug dose adjustment GFR/1.73 sq M predicted among blacks MDRD (S/P/Bld) [Vol rate/Area] mL/min/{1.73_m2} >60 mL/min [place] Glucose [Mass/Vol] 158 mg/dL High 70 - 100 mg/dL [place] Interpretation and review of laboratory results Abnormal [place] Potassium [Moles/Vol] 3.8 mmol/L 3.5 - 5.1 mmol/L [place] Protein [Mass/Vol] 8.2 g/dL 6.3 - 8.2 g/dL [place] Sodium [Moles/Vol] 139 mmol/L 135 - 145 mmol/L [place] Urea nitrogen [Mass/Vol] 10 mg/dL 7 - 20 mg/dL [place] Test Performed by [facility], [address] [place] [id number] [place], [place] MRI ABDOMEN W WO CONTRASTon 07-25-2019 [facility] Incoming Radiology Results From [facility] - 07/25/2019 12:12 AM EDT Patient Name: RUTHIE CASTILLO ---MRI--- Exam Date/Time 07/24/2019 19:20:55 EDT Exam MRI Abdomen w/ + w/o Contrast Ordering Physician KULWINDER BISHOP Accession Number [id number] CPT4 Codes 72255 () Reason For Exam crohn flare, with enterovesicular fistulas Report MRI ABDOMEN WITHOUT AND WITH CONTRAST INCLUDING SMALL BOWEL MR ENTEROGRAPHY: CLINICAL INDICATION: FLAIR coronal with an intravesical fistula and scrotal pain TECHNIQUE: Following a fast of six hours, the patient ingested three 450 mL bottles of Volumen oral contrast. MRI sequences were performed including transaxial T2 fat suppression and coronal T2 fat suppression along with diffusion-weighted sequences through the abdomen and pelvis. Following administration of 20 mL gadolinium contrast, coronal multiphase dynamic T1 and transaxial T1 fat suppression sequences were performed through the abdomen and pelvis as well COMPARISON: CT from 05/12/2019 FINDINGS: Bowel findings: Within the lower mid pelvis is region of signal abnormality with specific configuration. There is T2 hyperintensity with enhancement centered between a loop of small bowel along with segment of sigmoid colon. The process extends to the dome of the bladder as well. This is best delineated on sequence 15 image 43 and sequence 18 image 33 through 44. This entire region extends over dimension of approximately 4 cm. There is no wide communication between the bowel and bladder, but there is probably a thin communication. There is no surrounding fluid in the region. Remaining bowel loops throughout the abdomen and pelvis demonstrate no dilatation or regions of abnormal signal or significant wall thickening. The terminal ileum and cecum demonstrates no other abnormality. The appendix is normal Liver: Normal size and contour. No focal lesion. Biliary tree: Normal gallbladder. No biliary dilatation. Spleen: Normal Adrenals:Normal Pancreas: Homogeneous enhancement without mass or peripancreatic fluid. Kidneys: Symmetric contrast enhancement without mass or hydronephrosis Lymphadenopathy: None Aorta: Normal caliber Pelvis:No mass identified Visualized Osseous structures: Normal IMPRESSION: Region of abnormal signal with spiculated-type configuration involving a distal small bowel loop along with a portion of the sigmoid colon and adjacent bladder and the lower mid pelvis, corresponding to focal region of involvement of Crohn's disease. The fistula into the bladder is not readily appreciated, but there is likely a thin communication. Report Dictated on Workstation: [id number] --- Final --- Dictated: 07/25/2019 0:04 am Dictating Physician: MD SOLIS JEFFREY Signed Date and Time: 07/25/2019 0:10 am Signed by: MD SOLIS JEFFREY Transcribed Date and Time: 07/25/2019 0:04 [place] Patient Name: RUTHIE CASTILLO ---MRI--- Exam Date/Time 07/24/2019 19:20:55 EDT Exam MRI Abdomen w/ + w/o Contrast Ordering Physician [id number] SAAVEDRA Accession Number [id number] CPT4 Codes 68551 () Reason For Exam crohn flare, with enterovesicular fistulas Report MRI ABDOMEN WITHOUT AND WITH CONTRAST INCLUDING SMALL BOWEL MR ENTEROGRAPHY: CLINICAL INDICATION: FLAIR coronal with an intravesical fistula and scrotal pain TECHNIQUE: Following a fast of six hours, the patient ingested three 450 mL bottles of Volumen oral contrast. MRI sequences were performed including transaxial T2 fat suppression and coronal T2 fat suppression along with diffusion-weighted sequences through the abdomen and pelvis. Following administration of 20 mL gadolinium contrast, coronal multiphase dynamic T1 and transaxial T1 fat suppression sequences were performed through the abdomen and pelvis as well COMPARISON: CT from 05/12/2019 FINDINGS: Bowel findings: Within the lower mid pelvis is region of signal abnormality with specific configuration. There is T2 hyperintensity with enhancement centered between a loop of small bowel along with segment of sigmoid colon. The process extends to the dome of the bladder as well. This is best delineated on sequence 15 image 43 and sequence 18 image 33 through 44. This entire region extends over dimension of approximately 4 cm. There is no wide communication between the bowel and bladder, but there is probably a thin communication. There is no surrounding fluid in the region. Remaining bowel loops throughout the abdomen and pelvis demonstrate no dilatation or regions of abnormal signal or significant wall thickening. The terminal ileum and cecum demonstrates no other abnormality. The appendix is normal Liver: Normal size and contour. No focal lesion. Biliary tree: Normal gallbladder. No biliary dilatation. Spleen: Normal Adrenals:Normal Pancreas: Homogeneous enhancement without mass or peripancreatic fluid. Kidneys: Symmetric contrast enhancement without mass or hydronephrosis Lymphadenopathy: None Aorta: Normal caliber Pelvis:No mass identified Visualized Osseous structures: Normal IMPRESSION: Region of abnormal signal with spiculated-type configuration involving a distal small bowel loop along with a portion of the sigmoid colon and adjacent bladder and the lower mid pelvis, corresponding to focal region of involvement of Crohn's disease. The fistula into the bladder is not readily appreciated, but there is likely a thin communication. Report Dictated on Workstation: [id number] --- Final --- Dictated: 07/25/2019 0:04 am Dictating Physician: MD SOLIS JEFFREY Signed Date and Time: 07/25/2019 0:10 am Signed by: MD SOLIS JEFFREY Transcribed Date and Time: 07/25/2019 0:04 [place] Comprehensive Metabolic Pane deja 05-14-2019 Albumin [Mass/Vol] 5.0 g/dL 3.5 - 5 g/dL [place] ALP [Catalytic activity/Vol] 93 U/L 38 - 126 U/L [place] ALT [Catalytic activity/Vol] 58 U/L 13 - 69 U/L [place] Anion gap [Moles/Vol] 15 mmol/L [place] AST [Catalytic activity/Vol] 41 U/L 15 - 46 U/L [place] Bilirubin Ql (U) 0.6 mg/dL 0.2 - 1.3 mg/dL [place] Calcium [Mass/Vol] 10.1 mg/dL 8.4 - 10. 4 mg/dL [place] Chloride [Moles/Vol] 104 mmol/L 98 - 10 7 mmol/L [place] CO2 [Moles/Vol] 23 mmol/L 22 - 30 mmol/L [place] Creatinine [Mass/Vol] 0.79 mg/dL 0.52 - 1.25 mg/dL [place] EGFR IF NonAfrican Syrian >60.0 >60 mL/min [place] Comment on above: Source- MDRD equatio n with creatinine calibration to IDMS(NKDEP) eGFR not recommended for drug dose adjustment GFR/1.73 sq M predicted among blacks MDRD (S/P/Bld) [Vol rate/Area] mL/min/{1.73_m2} >60 mL/min [place] Glucose [Mass/Vol] 115 mg/dL High 70 - 100 mg/dL [place] Interpretation and review of laboratory results Abnormal [place] Potassium [Moles/Vol] 4.1 mmol/L 3.5 - 5.1 mmol/L [place] Protein [Mass/Vol] 9.0 g/dL High 6.3 - 8.2 g/dL [place] Sodium [Moles/Vol] 142 mmol/L 135 - 145 mmol/L [place] Urea nitrogen [Mass/Vol] 15 mg/dL 7 - 20 mg/dL [place] Hemogram (CBC) w/Auto Diffon 05-14-2019 Absolute Baso # 0.1 10*3/uL 0 - 0.2 10*3/uL [place] Absolute Neut # 11.9 10*3/uL High 1.8 - 7 10*3/uL [place] Basophils/100 WBC (Bld) 0.6 % 0 - 2 % [place] Eosinophils (Bld) [#/Vol] 0.1 10*3/uL 0 - 0.5 10*3/uL [place] Eosinophils/100 WBC (Bld) 0.4 % Low 1 - 6 % [place] Erythrocyte distribution width (RBC) [Ratio] 13.5 % 11.5 - 14.5 % [place] Granulocytes/100 WBC (Bld) 85.3 % High 40 - 80 % [place] Hematocrit (Bld) [Volume fraction] 48.2 % 40 - 52 % [place] Hemoglobin (Bld) [Mass/Vol] 16.4 g/dL 13 - 18 g/dL [place] Interpretation and review of laboratory results Abnormal [place] Lymphocytes (Bld) [#/Vol] 1.4 10*3/uL 1 - 4.3 10*3/uL [place] Lymphocytes/100 WBC (Bld) 9.9 % Low 20 - 40 % [place] MCH (RBC) [Entitic mass] 30.0 pg 26 - 34 pg [place] MCHC (RBC) [Mass/Vol] 34.1 % 32 - 36 % [place] MCV (RBC) [Entitic vol] 87.9 fL 80 - 98 fL [place] Monocytes (Bld) [#/Vol] 0.5 10*3/uL 0 - 0.8 10*3/uL [place] Monocytes/100 WBC (Bld) 3.8 % 2 - 10 % [place] Platelet mean volume (Bld) [Entitic vol] 8.7 fL 7.4 - 10.4 fL [place] Platelets (Bld) [#/Vol] 299 10*3/uL 140 - 440 10*3/uL [place] RBC (Bld) [#/Vol] 5.48 10*6/uL 4.4 - 5.9 10*6/uL [place] WBC (Bld) [#/Vol] 14.0 10*3/uL High 3.6 - 10.7 10*3/uL [place] Test Performed by [facility], [address] , [address] Lipaseon 05-14-2019 Lipase [Catalytic activity/Vol] 81 U/L 23 - 300 U/L [place] Otheron 05-14-2019 Test Performed by [facility], [address] , [address] Abdomen Pelvis W Contrast on 05-12-2019 [facility] Incoming Radiology Results From [facility] - 05/12/2019 1:32 AM EDT Patient Name: RUTHIE CASTILLO ---CT--- Exam Date/Time 05/12/2019 01:12:[address] Abdomen/Pelvis w/ IV Contrast (IV Onl Ordering Physician DEB HUYNH MD, MATTHEW Barroso Accession Number [id number] CPT4 Codes 15443 (CT Abdomen/Pelvis w/ IV Contrast (IV Onl), Q9967 (CT ISOVUE [id number]/[id number]) Reason For Exam Patient with a history of Crohn's disease complains of right-sided abdominal pain. Seen yesterday and had elevated white blood cell count, continues to have pain, evaluate for abscess Report Clinical indication: Right lower quadrant pain. History of Crohn's disease. Comparison: 01/26/2019 Contrast: 75 mL Isovue-370 intravenously Radiation dose: DLP 1954 mGycm Imaging was performed from dome of the diaphragm through ischial tuberosities with axial, coronal and sagittal images reconstructed. Images of the lung bases show no pulmonary infiltrates or pleural effusions. The liver, spleen, pancreas, adrenal glands and kidneys have no focal suspicious masses. No free intraperitoneal air, fluid, mesenteric inflammation or bowel dilatation is noted. Diverticula are evident in the sigmoid colon. There is an area of mesenteric tethering between distal small bowel and colon in the pelvis in the midline. This is an area of previous inflammatory change and most likely represents adhesion. There are no acute mesenteric inflammatory changes noted currently. Appendix appears normal. Aorta and vena cava are normal in size. No retroperitoneal adenopathy or mass is noted. No free fluid is noted in the pelvis. No pelvic adenopathy is identified. No gross mass is identified within the urinary bladder. Mild endplate degenerative hypertrophy is noted in the lower thoracic spine. IMPRESSION: Evidence of adhesions between distal small bowel and sigmoid colon in the midline in the pelvis and an area of previous inflammation. No acute inflammatory changes are identified currently. Report Dictated on Workstation: [id number] --- Final --- Dictating Physician: MD ACOSTA DIANE Signed Date and Time: 05/12/2019 1:30 am Signed by: MD ACOSTA DIANE Transcribed Date and Time: 05/12/2019 1:32 [place] Patient Name: RUTHIE CASTILLO ---CT--- Exam Date/Time 05/12/2019 01:12:[address] Abdomen/Pelvis w/ IV Contrast (IV Onl Ordering Physician DEB HUYNH MD, MATTHEW Barroso Accession Number [id number] CPT4 Codes 87734 (CT Abdomen/Pelvis w/ IV Contrast (IV Onl), Q9967 (CT ISOVUE [id number]/[id number]) Reason For Exam Patient with a history of Crohn's disease complains of right-sided abdominal pain. Seen yesterday and had elevated white blood cell count, continues to have pain, evaluate for abscess Report Clinical indication: Right lower quadrant pain. History of Crohn's disease. Comparison: 01/26/2019 Contrast: 75 mL Isovue-370 intravenously Radiation dose: DLP 1954 mGycm Imaging was performed from dome of the diaphragm through ischial tuberosities with axial, coronal and sagittal images reconstructed. Images of the lung bases show no pulmonary infiltrates or pleural effusions. The liver, spleen, pancreas, adrenal glands and kidneys have no focal suspicious masses. No free intraperitoneal air, fluid, mesenteric inflammation or bowel dilatation is noted. Diverticula are evident in the sigmoid colon. There is an area of mesenteric tethering between distal small bowel and colon in the pelvis in the midline. This is an area of previous inflammatory change and most likely represents adhesion. There are no acute mesenteric inflammatory changes noted currently. Appendix appears normal. Aorta and vena cava are normal in size. No retroperitoneal adenopathy or mass is noted. No free fluid is noted in the pelvis. No pelvic adenopathy is identified. No gross mass is identified within the urinary bladder. Mild endplate degenerative hypertrophy is noted in the lower thoracic spine. IMPRESSION: Evidence of adhesions between distal small bowel and sigmoid colon in the midline in the pelvis and an area of previous inflammation. No acute inflammatory changes are identified currently. Report Dictated on Workstation: [id number] --- Final --- Dictating Physician: MD ACOSTA DIANE Signed Date and Time: 05/12/2019 1:30 am Signed by: MD ACOSTA DIANE Transcribed Date and Time: 05/12/2019 1:32 [place] Comprehensive Metabolic Pane deja 05-12-2019 Albumin [Mass/Vol] 4.6 g/dL 3.5 - 5 g/dL [place] ALP [Catalytic activity/Vol] 66 U/L 38 - 126 U/L [place] ALT [Catalytic activity/Vol] 60 U/L 13 - 69 U/L [place] Anion gap [Moles/Vol] 14 mmol/L [place] AST [Catalytic activity/Vol] 48 U/L High 15 - 46 U/L [place] Bilirubin Ql (U) 0.7 mg/dL 0.2 - 1.3 mg/dL [place] Calcium [Mass/Vol] 9.8 mg/dL 8.4 - 10. 4 mg/dL [place] Chloride [Moles/Vol] 104 mmol/L 98 - 10 7 mmol/L [place] CO2 [Moles/Vol] 23 mmol/L 22 - 30 mmol/L [place] Creatinine [Mass/Vol] 0.75 mg/dL 0.52 - 1.25 mg/dL [place] EGFR IF NonAfrican Syrian >60.0 >60 mL/min [place] Comment on above: Source- MDRD equatio n with creatinine calibration to IDMS(NKDEP) eGFR not recommended for drug dose adjustment GFR/1.73 sq M predicted among blacks MDRD (S/P/Bld) [Vol rate/Area] mL/min/{1.73_m2} >60 mL/min [place] Glucose [Mass/Vol] 107 mg/dL High 70 - 100 mg/dL [place] Interpretation and review of laboratory results Abnormal [place] Potassium [Moles/Vol] 3.8 mmol/L 3.5 - 5.1 mmol/L [place] Protein [Mass/Vol] 8.2 g/dL 6.3 - 8.2 g/dL [place] Sodium [Moles/Vol] 141 mmol/L 135 - 145 mmol/L [place] Urea nitrogen [Mass/Vol] 14 mg/dL 7 - 20 mg/dL [place] Hemogram (CBC) w/Auto Diffon 05-12-2019 Absolute Baso # 0.1 10*3/uL 0 - 0.2 10*3/uL [place] Absolute Neut # 10.8 10*3/uL High 1.8 - 7 10*3/uL [place] Basophils/100 WBC (Bld) 0.5 % 0 - 2 % [place] Eosinophils (Bld) [#/Vol] 0.1 10*3/uL 0 - 0.5 10*3/uL [place] Eosinophils/100 WBC (Bld) 0.7 % Low 1 - 6 % [place] Erythrocyte distribution width (RBC) [Ratio] 13.5 % 11.5 - 14.5 % [place] Granulocytes/100 WBC (Bld) 80.4 % High 40 - 80 % [place] Hematocrit (Bld) [Volume fraction] 45.5 % 40 - 52 % [place] Hemoglobin (Bld) [Mass/Vol] 15.5 g/dL 13 - 18 g/dL [place] Interpretation and review of laboratory results Abnormal [place] Lymphocytes (Bld) [#/Vol] 1.9 10*3/uL 1 - 4.3 10*3/uL [place] Lymphocytes/100 WBC (Bld) 14.2 % Low 20 - 40 % [place] MCH (RBC) [Entitic mass] 30.0 pg 26 - 34 pg [place] MCHC (RBC) [Mass/Vol] 34.0 % 32 - 36 % [place] MCV (RBC) [Entitic vol] 88.1 fL 80 - 98 fL [place] Monocytes (Bld) [#/Vol] 0.6 10*3/uL 0 - 0.8 10*3/uL [place] Monocytes/100 WBC (Bld) 4.2 % 2 - 10 % [place] Platelet mean volume (Bld) [Entitic vol] 8.6 fL 7.4 - 10.4 fL [place] Platelets (Bld) [#/Vol] 270 10*3/uL 140 - 440 10*3/uL [place] RBC (Bld) [#/Vol] 5.17 10*6/uL 4.4 - 5.9 10*6/uL [place] WBC (Bld) [#/Vol] 13.4 10*3/uL High 3.6 - 10.7 10*3/uL [place] Test Performed by [facility], [address] , [address] Lipaseon 05-12-2019 Lipase [Catalytic activity/Vol] 75 U/L 23 - 300 U/L [place] Otheron 05-12-2019 Test Performed by [facility], [address] , [address] Basic Metabolic Panelon 04-30 Anion gap [Moles/Vol] 16 mmol/L [place] Calcium [Mass/Vol] 10.1 mg/dL 8.4 - 10. 4 mg/dL [place] Chloride [Moles/Vol] 102 mmol/L 98 - 10 7 mmol/L [place] CO2 [Moles/Vol] 24 mmol/L 22 - 30 mmol/L [place] Creatinine [Mass/Vol] 0.93 mg/dL 0.52 - 1.25 mg/dL [place] EGFR IF NonAfrican Syrian >60.0 >60 mL/min [place] Comment on above: Source- MDRD equatio n with creatinine calibration to IDHI(NKDEP) eGFR not recommended for drug dose adjustment GFR/1.73 sq M predicted among blacks MDRD (S/P/Bld) [Vol rate/Area] mL/min/{1.73_m2} >60 mL/min [place] Glucose [Mass/Vol] 128 mg/dL High 70 - 100 mg/dL [place] Potassium [Moles/Vol] 3.8 mmol/L 3.5 - 5.1 mmol/L [place] Sodium [Moles/Vol] 142 mmol/L 135 - 145 mmol/L [place] Urea nitrogen [Mass/Vol] 11 mg/dL 7 - 20 mg/dL [place] Hemogram (CBC)on 05-11-2019 Erythrocyte distribution width (RBC) [Ratio] 13.7 % 11.5 - 14.5 % [place] Hematocrit (Bld) [Volume fraction] 47.8 % 40 - 52 % [place] Hemoglobin (Bld) [Mass/Vol] 16.2 g/dL 13 - 18 g/dL [place] Interpretation and review of laboratory results Abnormal [place] MCH (RBC) [Entitic mass] 29.9 pg 26 - 34 pg [place] MCHC (RBC) [Mass/Vol] 34.0 % 32 - 36 % [place] MCV (RBC) [Entitic vol] 87.9 fL 80 - 98 fL [place] Platelet mean volume (Bld) [Entitic vol] 8.8 fL 7.4 - 10.4 fL [place] Platelets (Bld) [#/Vol] 287 10*3/uL 140 - 440 10*3/uL [place] RBC (Bld) [#/Vol] 5.43 10*6/uL 4.4 - 5.9 10*6/uL [place] WBC (Bld) [#/Vol] 13.1 10*3/uL High 3.6 - 10.7 10*3/uL [place] Test Performed by [facility], [facility] [address] , [place] [id number] [place] [address] Hepatic Function Panelon Albumin [Mass/Vol] 4.9 g/dL 3.5 - 5 g/dL [place] ALP [Catalytic activity/Vol] 88 U/L 38 - 126 U/L [place] ALT [Catalytic activity/Vol] 57 U/L 13 - 69 U/L [place] AST [Catalytic activity/Vol] 42 U/L 15 - 46 U/L [place] Bilirubin Ql (U) 0.5 mg/dL 0.2 - 1.3 mg/dL [place] Bilirubin.direct [Mass/Vol] 0.0 mg/dL 0 - 0.3 mg/dL [place] Protein [Mass/Vol] 8.7 g/dL High 6.3 - 8.2 g/dL [place] Lipaseon 05-11-2019 Lipase [Catalytic activity/Vol] 86 U/L 23 - 300 U/L [place] Otheron 05-11-2019 Interpretation and review of laboratory results Abnormal [place] Test Performed by [facility], [address] , [place], [place] [address] [place] [address] Urinalysison 05-11-2019 Appearance (U) Clear [place] Comment on above: Reference Range: Festus ar Bilirubin Urine Negative mg/dL [place] Comment on above: Reference Range: Neg ative Color (U) COLORLESS [place] Comment on above: Reference Range: Lt. Yellow Glucose, Ur Normal mg/dL [place] Comment on above: Reference Range: Nor mal (<70) Ketones Ql (U) Negative mg/dL [place] Comment on above: Reference Range: Neg ative LEUKOCYTES, UA Negative Serafin/uL [place] Comment on above: Reference Range: Neg ative Nitrite, Urine Negative [place] Comment on above: Reference Range: Neg ative Occult Blood,Urine Negative mg/dL [place] Comment on above: Reference Range: Neg ative pH (U) 6.5 [pH] [place] Protein (U) [Mass/Vol] Negative mg/dL [place] Comment on above: Reference Range: Neg ative Specific [place], Urine 1.007 [place] Urobilinogen, Urine Normal mg/dL [place] Comment on above: Reference Range: Nor mal (0-1) Test Performed by [facility], [address] , [address] Initial Visit (Gastroenterol ogy)on 10-27-2018 Initial Visit (Gastroenterology) Chief Complaint Abdominal pain, colitis History of Present Illness 28 - Year old male is accompanied to the office today by his and dad. He was referred by his PCP, Dr. Frazier for abnormal CT findings related to diverticulitis, colitis, possible inflammatory bowel disease and moderate to severe lower abdominal pain. Patient was seen and admitted by both [facility] and [facility] in August 2018 for severe lower abdominal pain. Several CT abdomen/pelvis examinations have been completed. CT on 09/04/18 demonstrated acute sigmoid diverticulitis with a 4 cm x 3 cm abscess formation between loops of large bowel in the midline just above the urinary bladder. Repeat CT on 09/08/19 showed decreased inflammatory changes within the sigmoid mesentery as well as decrease size of the previous seen abscess measuring 2.5 cm x 2.1 cm. Patient was admitted and had CT-guided drainage of the abscess (date unknown) and was discharged home with Flagyl. He returned to [facility] ER again on 09/09/18 for continued abdominal pain and was readmitted with worsening leukocytosis and received IV antibiotic therapy. Repeat CT showed no changes and stable 3 cm abscess medial to the sigmoid colon. Following this, patient was also evaluated at [facility] (exact date uncertain) for continued lower abdominal pain where CT apparently showed possible colitis and polyp per PCP office note and recommended scheduling a colonoscopy to rule out inflammatory bowel disease. Patient states laboratory testing for IBD was completed at [facility], and were positive per patient. Patient reports that he had a colonoscopy around 5 years ago that just showed hemorrhoids. His abdominal pain began in early August 2018. It started in the right lower quadrant and radiates throughout the abdomen. It is cramping and pressure like and varies in intensity from moderate to severe. It is associated with chronic constipation and occasional diarrhea. It is not associated with rectal bleeding, blood in the stool or melena. It has been somewhat relieved with use of Bentyl 20 mg every 6 hours as needed that was prescribed by his PCP on 10/17/18. He is also taking a stool softener daily. He reports occasional mild nausea, but no vomiting, changes in appetite, unexplained weight loss or fevers. He reports occasional heartburn but no dysphagia. Review of Systems Const: Denies fatigue, fever and weight loss. CV: Reports chest pain with anxiety and stress. Denies pacemaker, palpitations and valvular heart disease. Resp: Reports sleep apnea and snoring. Denies cough, SOB. GI: Denies symptoms other than stated above. Musculo: Denies joint pain and muscle pain. Skin: Denies hives and rash. Neuro: Denies seizures and stroke. Psych: Reports anxiety and depression, IED (intermittent explosive disorder), bipolar, PTSD. Endocrine: Denies intolerance to cold, hot flashes and impaired glucose tolerance. Daniel/Lymph: Denies anemia, blood transfusions, chemotherapy, enlarged lymph nodes and radiation treatment of any kind. Active Problems Abdominal pain (789.00) (R10.9) Chronic constipation (564.00) (K59.09) Diverticulosis of intestine (562.10) (K57.90) Past Medical History History of anxiety (V11.8) (Z86.59) History of bipolar disorder (V11.1) (Z86.59) History of colitis (V12.79) (Z87.19) Denied: History of complications due to general anesthesia History of diverticulitis of colon (V12.79) (Z87.19) August 2018 and September 2018 Surgical History History of Colonoscopy [facility]; 2014 - hemorrhoids Denied: History of Esophagogastroduodenoscopy History of Plantar fasciotomy History of Testicular surgery Family History Family history of malignant neoplasm of breast (V16.3) (Z80.3) Family history of Murder Family history of malignant neoplasm of prostate (V16.42) (Z80.42) Family history of lung cancer (V16.1) (Z80.1) Social History Current every day smoker (305.1) (F17.200) 6 cigarettes a day Does not have living will History of tattoo (709.09) (L81.8) Marijuana medical for mental disability No alcohol use Occasional caffeine consumption Allergies Dextromethorphan HBr Monohyd KAYLENE Recorded By: Freda Hand; 10/27/2018 1:25:07 PM NyQuil LIQD Recorded By: Freda Hand; 10/27/2018 1:23:52 PM pseudoephedrine Recorded By: Freda Hand; 10/27/2018 1:25:07 PM Mushrooms Recorded By: Freda Hand; 10/27/2018 1:23:52 PM Current Meds Dicyclomine HCl - 20 MG Oral Tablet; Therapy: 17Oct2018 to Recorded Dispense: 7 Days ; #:30; Refill: 0; HENRY = N; Record; Last Updated By: Freda Hand; 10/27/2018 2:35:38 PM HydrOXYzine HCl - 25 MG Oral Tablet; Therapy: 17Oct2018 to Recorded Dispense: 7 Days ; #:30; Refill: 0; HENRY = N; Record; Last Updated By: Freda Hand; 10/27/2018 1:18:53 PM Vitals Vital Signs Recorded: 27Oct2018 01:14PM [id number] F, Oral Heart Rate86 Lyoomgdg142, LUE, Sitting Vyfonudqt92, LUE, Sitting Blood Pressure Cuff SizeAdult Height6 ft Stefss606 lb BMI Wfobckfikt89.77 BSA Calculated2.34 O2 Gavnwzearl54 Physical Exam Const: Vital signs reviewed. Appears healthy, well-developed, obese. ENMT: Oral mucosa moist with no thrush and no mucositis. Neck: Supple and symmetric. Thyroid is normal in size and texture. Resp: Respiration rate is normal. Clear to auscultation. CV: Rhythm is regular. No heart murmur appreciated. Carotids 2+ and equal bilaterally, without bruits. Femorals 2+ and equal bilaterally, without bruits. Abdomen: Positive bowel sounds in all quadrants. No bruits. Normal to percussion. Palpation of the abdomen reveals softness, obesity but no tenderness currently, distension or fluid wave. No abdominal masses. No hernias. No palpable hepatosplenomegaly. Anus/Perineum/Rectum: Exam deferred. Lymph: No visible or palpable cervical lymphadenopathy. Inguinal nodes not palpable. Skin: Dry and warm with no nodularity or rash. Psych: Affect is normal. Alert and oriented x3. Neuro: Cranial nerves intact. No focal motor defects. Results/Data As stated in HPI. Diagnoses/Problems Abdominal pain (789.00) (R10.9) Chronic constipation (564.00) (K59.09) Diverticulosis of intestine (562.10) (K57.90) Orders Abdominal pain, Chronic constipation Renew: Dicyclomine HCl - 20 MG Oral Tablet; TAKE 1 TABLET 30 MINUTES BEFORE MEALS AND BEDTIME FOR BOWEL SPASM Rx By: Melanie Ocasio; Dispense: 25 Days ; #:120 Tablet; Refill: 11;For: Abdominal pain, Chronic constipation; HENRY = N; Verified Transmission to [facility] [place] [address]; Last Updated By: Edai; 10/27/2018 2:35:38 PM Abdominal pain, Chronic constipation, Diverticulosis of intestine Start: PEG-3350/Electrolytes 236 GM Oral Solution Reconstituted; TAKE DIRECTED Rx By: Melanie Ocasio; Dispense: 0 Days ; #:1 X 4000 ML Bottle; Refill: 0;For: Abdominal pain, Chronic constipation, Diverticulosis of intestine; HENRY = N; Verified Transmission to [address]; Last Updated By: Edai; 10/27/2018 2:35:40 PM SocHx: Current every day smoker Tobacco Use Screening; Status:Complete; Done: 27Oct2018 Perform:Not Applicable;Ordered; For:SocHx: Current every day smoker; Ordered By:Freda Hand; Provider Impressions 1. Generalized abdominal pain 2. Chronic constipation with intermittent diarrhea 3. Recent diverticulitis with abscess formation 4. Rule out inflammatory bowel disease versus irritable bowel syndrome 5. Obesity 6. Tobacco use Patient Discussion/Summary 1. The diagnosis and evaluation options were discussed with the patient. A colonoscopy was recommended and scheduled. The procedure and sedation were discussed. Risks including but not limited to bleeding, perforation, reaction to medication, missed polyps, damage to other organs, and adverse cardiopulmonary events were discussed. The office endoscopy forms were reviewed and signed. The patients questions were answered. Patient was instructed about not driving the day of the exam after being sedated. 2. The patient appears medically stable for sedation and endoscopy. 3. Take Dicyclomine (Bentyl) 20 mg 30 minutes before meals and bedtime for bowel spasm. 4. Begin using MiraLAX one capful in 8 ounces of water, juice, or Gatorade daily. This products is [id number]. You can adjust this product if you are having severe constipation by increasing it to twice a day. If you are experiencing loose stool, decrease amount to one half capful daily or one capful every other day. 5. Begin using one heaping tablespoon of Benefiber in 8 ounces of water daily by mixing and drinking quickly. This product is [id number]. 6. Obtain results of recent IBD testing from [facility] 7. A healthy, low fat diet and regular exercise is recommended for weight reduction. 8. Patient warned to go directly to the hospital ER for increasing pain, heavy bleeding, repeat vomiting, severe diarrhea, fever, shortness of breath, dizziness, or severe weakness. Signatures Electronically signed by : WERNER Hunt; Oct 27 2018 4:46PM EST (Author) Normal Touchworks Vital Signs Date Time Vital Sign Value Performing Clinician Faci lity 09-06-2023 21:03-0500 Diastolic Blood Pressure Non-Invasive 91 mm[Hg] CYNTHIA MURPHY MD [facility] 09-06-2023 21:03-0500 Heart rate 84 /min CYNTHIA MURPHY MD [facility] 09-06-2023 21:03-0500 Respiratory rate 18 /min CYNTHIA MURPHY MD [facility] 09-06-2023 21:03-0500 Systolic Blood Pressure Non-Invasive 135 mm[Hg] CYNTHIA MURPHY MD [facility] 09-06-2023 19:15-0500 Blood Pressure Cuff Size CYNTHIA MURPHY MD [facility] 09-06-2023 19:15-0500 Blood Pressure Location CYNTHIA MURPHY MD [facility] 09-06-2023 19:15-0500 Blood Pressure Method CYNTHIA MURPHY MD [facility] 09-06-2023 19:15-0500 Diastolic Blood Pressure Non-Invasive 94 mm[Hg] CYNTHIA MURPHY MD [facility] 09-06-2023 19:15-0500 Heart rate 88 /min CYNTHIA MURPHY MD [facility] 09-06-2023 19:15-0500 Respiratory rate 18 /min CYNTHIA MURPHY MD [facility] 09-06-2023 19:15-0500 Systolic Blood Pressure Non-Invasive 134 mm[Hg] CYNTHIA MURPHY MD [facility] 09-06-2023 17:51-0500 Diastolic Blood Pressure Non-Invasive 91 mm[Hg] CYNTHIA MURPHY MD [facility] 09-06-2023 17:51-0500 Heart rate 76 /min CYNTHIA MURPHY MD [facility] 09-06-2023 17:51-0500 Respiratory rate 18 /min CYNTHIA MURPHY MD [facility] 09-06-2023 17:51-0500 Systolic Blood Pressure Non-Invasive 134 mm[Hg] CYNTHIA MURPHY MD [facility] 09-06-2023 15:21-0500 Body height 185.4 cm CYNTHIA MURPHY MD [facility] 09-06-2023 15:21-0500 Body temperature 97.88 [degF] CYNTHIA MURPHY MD [facility] 09-06-2023 15:21-0500 Body weight 113.2 kg CYNTHIA MURPHY MD [facility] 09-06-2023 15:21-0500 Heart rate 80 /min CYNTHIA MURPHY MD [facility] 11-10-2020 16:12-0500 BP Diastolic 101 mm[Hg] Spencer VALVERDE Work Phone: 11-10-2020 16:12-0500 BP Systolic 148 mm[Hg] Spencer VALVERDE Work Phone: 11-10-2020 16:12-0500 Pulse (Heart Rate) 71 /min Spencer VALVERDE Work Phone: 11-10-2020 15:42-0500 BMI (Body Mass Index) 35.26 kg/m2 Spencer VALVERDE Work Phone: 11-10-2020 15:42-0500 Body Temperature 97.3 [degF] Spencer VALVERDE Work Phone: 11-10-2020 15:42-0500 Body weight 117.94 kg Spencer VALVERDE Work Phone: 11-10-2020 15:42-0500 Height 182.9 cm Spencer VALVERDE Work Phone: 11-10-2020 15:42-0500 Pulse Oximetry 99 % Spencer VALVERDE Work Phone: 11-10-2020 15:42-0500 Respiratory Rate 16 /min Spencer VALVERDE Work Phone: 10-30-2020 21:15-0500 Body Temperature 98.91 [degF] Matthew Lopez [facility] [employer] [place], [place] 10-30-2020 21:15-0500 BP Diastolic 78 mm[Hg] [facility] [place] 10-30-2020 21:15-0500 BP Systolic 144 mm[Hg] [facility] [place] 10-30-2020 21:15-0500 Pulse (Heart Rate) 87 /min [facility] [place] 10-30-2020 21:15-0500 Pulse Oximetry 98 % [facility] [place] 10-30-2020 21:15-0500 Respiratory Rate 16 /min Matthew Lopez [employer] [place] 10-30-2020 16:31-0500 BMI (Body Mass Index) 34.04 kg/m2 [facility] [place] 10-30-2020 16:31-0500 Body weight 113.85 kg [facility] [place] 10-30-2020 16:31-0500 Height 182.9 cm [facility] [place] 08-26-2020 05:59-0500 BP Diastolic 86 mm[Hg] [facility] [place] 08-26-2020 05:59-0500 BP Systolic 133 mm[Hg] [facility] [place] 08-26-2020 05:59-0500 Pulse (Heart Rate) 76 /min [facility] [place] 08-26-2020 05:59-0500 Pulse Oximetry 100 % [facility] [place] 08-26-2020 05:59-0500 Respiratory Rate 16 /min [facility] [place] 08-26-2020 04:13-0500 BMI (Body Mass Index) 32.55 kg/m2 Matthew Canales [facility] [place] 08-26-2020 04:13-0500 Body Temperature 98.01 [degF] [facility] [place] 08-26-2020 04:13-0500 Body weight 108.86 kg [facility] [place] 08-26-2020 04:13-0500 Height 182.9 cm [facility] [place] 08-15-2020 09:04-0500 Body Temperature 96.49 [degF] [facility] [place] 08-15-2020 09:04-0500 BP Diastolic 86 mm[Hg] [facility] [place] 08-15-2020 09:04-0500 BP Systolic 152 mm[Hg] [facility] [place] 08-15-2020 09:04-0500 Pulse (Heart Rate) 83 /min [facility] [place] 08-15-2020 09:04-0500 Pulse Oximetry 98 % [facility] [place] 08-15-2020 09:04-0500 Respiratory Rate 18 /min [facility] [place] 08-10-2020 09:50-0500 Height 180.3 cm [facility] [place] 08-09-2020 16:32-0500 Pulse (Heart Rate) 81 /min Spencer Canales [facility] [place], [place] 08-09-2020 16:32-0500 Respiratory Rate 20 /min [facility] [place] [facility] 08-09-2020 16:29-0500 BP Diastolic 85 mm[Hg] [facility] [place] 08-09-2020 16:29-0500 BP Systolic 160 mm[Hg] Spencer Canales [facility] [place] , [place] 08-09-2020 16:29-0500 Pulse Oximetry 98 % Spencer Canales [facility] , [place] 08-09-2020 14:56-0500 BMI (Body Mass Index) 33.47 kg/m2 Spencer Canales [facility], [place] 08-09-2020 14:56-0500 Body Temperature 97.39 [degF] Spencer Canales [facility] [place] 08-09-2020 14:56-0500 Body weight 108.86 kg Spencer Canales [facility] , [place] 08-09-2020 14:56-0500 Height 180.3 cm Spencer Canales [facility] , [place] 07-03-2020 01:55-0400 BP Diastolic 67 mm[Hg] [facility] [place] [facility] [place] 07-03-2020 01:55-0400 BP Systolic 132 mm[Hg] Andreina Hough [facility] , [place] 07-03-2020 01:55-0400 Pulse (Heart Rate) 89 /min [facility] [place] [place] 07-03-2020 01:55-0400 Respiratory Rate 17 /min [facility] [place] 07-03-2020 00:46-0400 BMI (Body Mass Index) 32.22 kg/m2 Andreina Canales [facility] [place], [place] 07-03-2020 00:46-0400 Body Temperature 97.2 [degF] Andre[facility] [place] 07-03-2020 00:46-0400 Body weight 104.78 kg Andreina Hough [facility] , [place] 07-03-2020 00:46-0400 Height 180.3 cm Andreina France [facility] , [place] 07-03-2020 00:46-0400 Pulse Oximetry 9 % Andreina Hough [facility] , [place] 07-01-2020 16:07-0400 Body Temperature 97.2 [degF] [facility], [place] 07-01-2020 16:07-0400 BP Diastolic 89 mm[Hg] [facility], [place] 07-01-2020 16:07-0400 BP Systolic 146 mm[Hg] [facility], [place] 07-01-2020 16:07-0400 Pulse (Heart Rate) 69 /min [facility], [place] 07-01-2020 16:07-0400 Pulse Oximetry 99 % [facility], [place] 07-01-2020 16:07-0400 Respiratory Rate 17 /min [facility], [place] 06-28-2020 10:14-0400 Height 180.3 cm [facility], [place] 06-26-2020 11:56-0400 BMI (Body Mass Index) 37.8 kg/m2 [facility], [place] 06-26-2020 11:56-0400 Body weight 122.92 kg [facility], [place] 05-10-2020 16:51-0400 Body Temperature 97.11 [degF] [facility], [place] 05-10-2020 16:51-0400 BP Diastolic 69 mm[Hg] [facility] , [place] 05-10-2020 16:51-0400 BP Systolic 146 mm[Hg] [facility] , [place] 05-10-2020 16:51-0400 Pulse (Heart Rate) 83 /min [facility], [place] 05-10-2020 16:51-0400 Pulse Oximetry 99 % [facility] , [place] 05-10-2020 16:51-0400 Respiratory Rate 18 /min [facility], [place] 05-10-2020 09:45-0400 Height 180.3 cm [facility] , [place] 05-08-2020 18:23-0400 BMI (Body Mass Index) 39.75 kg/m2 [facility] [place], [place] 05-08-2020 18:23-0400 Body weight 129.28 kg [facility] , [place] 04-28-2020 06:30-0400 Body Temperature 98.6 [degF] [facility], [place] 04-28-2020 06:30-0400 BP Diastolic 70 mm[Hg] [facility] , [place] 04-28-2020 06:30-0400 BP Systolic 130 mm[Hg] [facility] , [place] 04-28-2020 06:30-0400 Pulse (Heart Rate) 57 /min [facility], [place] 04-28-2020 06:30-0400 Pulse Oximetry 95 % [facility] , [place] 04-28-2020 06:30-0400 Respiratory Rate 18 /min [facility], [place] 04-27-2020 01:00-0400 BMI (Body Mass Index) 39.75 kg/m2 [facility], [place] 04-27-2020 01:00-0400 Body weight 129.[address] [facility] , [place] 04-27-2020 01:00-0400 Height 180.[address] [facility] , [place] 10-21-2019 20:02-0500 Diastolic blood pressure 86 mm[Hg] Winston Gombash DO Work Phone: [employer] Work Phone: 10-21-2019 20:02-0500 Systolic blood pressure 142 mm[Hg] Winston Gombash DO Work Phone: [facility] Work Phone: 10-21-2019 18:05-0500 Body temperature 97.9 [degF] Winston Gombash DO Work Phone: [facility] Work Phone: 10-21-2019 18:05-0500 Heart rate 86 /min Winston Gombash DO Work Phone: [facility] Work Phone: 10-21-2019 18:05-0500 Respiratory rate 16 /min Winston Gombash DO Work Phone: [facility] Work Phone: 10-21-2019 18:05-0500 SaO2% (BldA) [Mass fraction] 100 % Winston Gombash DO Work Phone: [facility] Work Phone: 10-19-2019 18:13-0500 Body temperature 97.7 [degF] Vimal Walton MD [facility] Work Phone: 10-19-2019 18:13-0500 Diastolic blood pressure 84 mm[Hg] Vimal Walton MD Work Phone: [facility] Work Phone: 10-19-2019 18:13-0500 Heart rate 66 /min Vimal Walton MD Work Phone: [facility] Work Phone: 10-19-2019 18:13-0500 Respiratory rate 17 /min Vimal Walton MD Work Phone: [facility] Work Phone: 10-19-2019 18:13-0500 SaO2% (BldA) [Mass fraction] 100 % Vimal Walton MD Work Phone: [employer] Work Phone: 10-19-2019 18:13-0500 Systolic blood pressure 136 mm[Hg] Vimal Walton MD [facility]: [facility] Work Phone: 10-19-2019 14:58-0500 Body height 182.9 cm Vimal Walton MD Work Phone: [employer] Work Phone: 10-19-2019 14:58-0500 Body mass index (BMI) [Ratio] 36.89 kg/m2 Vimal Walton MD Work Phone: [employer] Work Phone: 10-19-2019 14:58-0500 Body weight 123.38 kg Vimal Walton MD Work Phone: [employer] Work Phone: 10-18-2019 20:22-0500 Body mass index (BMI) [Ratio] 36.93 kg/m2 Perez Hernandez MD Work Phone: [facility] Work Phone: 10-18-2019 20:22-0500 Body weight 123.5 kg Perez Hernandez MD Work Phone: [employer] Work Phone: 10-18-2019 18:26-0500 Body temperature 97.7 [degF] Perez Hernandez MD Work Phone: [employer] Work Phone: 10-18-2019 18:26-0500 Diastolic blood pressure 93 mm[Hg] Perez Hernandez MD Work Phone: [employer] Work Phone: 10-18-2019 18:26-0500 Heart rate 84 /min Perez Hernandez MD Work Phone: [employer] Work Phone: 10-18-2019 18:26-0500 Respiratory rate 16 /min Perez Hernandez MD Work Phone: [employer] Work Phone: 10-18-2019 18:26-0500 SaO2% (BldA) [Mass fraction] 100 % Perez Hernandez MD Work Phone: [facility] Work Phone: 10-18-2019 18:26-0500 Systolic blood pressure 152 mm[Hg] Perez Hernandez MD Work Phone: [facility] Work Phone: 10-17-2019 18:56-0500 Diastolic blood pressure 89 mm[Hg] Ranulfo Hermosillo MD Work Phone: [facility] Work Phone: 10-17-2019 18:56-0500 Heart rate 89 /min Ranulfo Hermosillo MD Work Phone: [employer] Work Phone: 10-17-2019 18:56-0500 Respiratory rate 16 /min Ranulfo Hermosillo MD Work Phone: [employer] Work Phone: 10-17-2019 18:56-0500 SaO2% (BldA) [Mass fraction] 97 % Ranulfo Hermosillo MD Work Phone: [facility] Work Phone: 10-17-2019 18:56-0500 Systolic blood pressure 146 mm[Hg] Ranulfo Hermosillo MD Work Phone: [employer] Work Phone: 10-17-2019 16:54-0500 Body height 182.9 cm Ranulfo Hermosillo MD Work Phone: [facility] Work Phone: 10-17-2019 16:54-0500 Body mass index (BMI) [Ratio] 36.62 kg/m2 Ranulfo Hermosillo MD Work Phone: [facility] Work Phone: 10-17-2019 16:54-0500 Body temperature 98.2 [degF] Ranulfo Hermosillo MD Work Phone: [facility] Work Phone: 10-17-2019 16:54-0500 Body weight 122.47 kg Ranulfo Hermosillo MD Work Phone: [facility] Work Phone: 08-17-2019 15:30-0500 BP Diastolic 69 mm[Hg] [facility], [place] 08-17-2019 15:30-0500 BP Systolic 139 mm[Hg] [facility], [place] 08-17-2019 15:30-0500 Pulse (Heart Rate) 89 /min [facility], [place] 08-17-2019 14:25-0500 Pulse Oximetry 98 % [facility] [place] 08-17-2019 14:25-0500 Respiratory Rate 14 /min [facility] [place] 08-17-2019 10:55-0500 BMI (Body Mass Index) 35.26 kg/m2 Benedict Canales [facility], [place] 08-17-2019 10:55-0500 Body Temperature 98.71 [degF] [facility] [place] 08-17-2019 10:55-0500 Body weight 117.94 kg Benedict [facility], [place] 08-17-2019 10:55-0500 Height 182.9 cm Benedict [facility], [place] 08-08-2019 08:11-0500 Body Temperature 97.11 [degF] Aaliyah Farley [facility], [place] 08-08-2019 08:11-0500 BP Diastolic 86 mm[Hg] Aaliyah Farley [facility], [place] 08-08-2019 08:11-0500 BP Systolic 143 mm[Hg] [facility] [place] 08-08-2019 08:11-0500 Pulse (Heart Rate) 52 /min Aaliyah Farley [facility], [place] 08-08-2019 08:11-0500 Pulse Oximetry 96 % Aaliyah Farley [facility], [place] 08-08-2019 08:11-0500 Respiratory Rate 16 /min Aaliyah Farley [facility], [place] 08-05-2019 05:56-0500 BMI (Body Mass Index) 38.86 kg/m2 [facility] [place] 08-05-2019 05:56-0500 Body weight 129.96 kg Aaliyah Farley [facility], [place] 07-29-2019 08:02-0400 Body Temperature 96.3 [degF] Bobshamar Thompson [facility], [place] 07-29-2019 08:02-0400 BP Diastolic 98 mm[Hg] [facility] 07-29-2019 08:02-0400 BP Systolic 158 mm[Hg] [facility] , 07-29-2019 08:02-0400 Pulse (Heart Rate) 60 /min [facility], 07-29-2019 08:02-0400 Pulse Oximetry 97 % [facility] , 07-29-2019 08:02-0400 Respiratory Rate 18 /min [facility] [place] 07-27-2019 16:56-0400 BMI (Body Mass Index) 38.79 kg/m2 [facility] 07-27-2019 16:56-0400 Body weight 129.73 kg [facility] , 07-27-2019 16:56-0400 Height 182.9 cm [facility] , 07-25-2019 07:48-0400 Body Temperature 97.5 [degF] Aaliyah Farley [facility], 07-25-2019 07:48-0400 BP Diastolic 56 mm[Hg] Aaliyah Farley [facility], 07-25-2019 07:48-0400 BP Systolic 119 mm[Hg] [facility], 07-25-2019 07:48-0400 Pulse (Heart Rate) 70 /min [facility] 07-25-2019 07:48-0400 Pulse Oximetry 95 % Aaliyah Farley [facility], 07-25-2019 07:48-0400 Respiratory Rate 16 /min Aaliyah Farley [facility], 07-24-2019 14:30-0400 BMI (Body Mass Index) 35.53 kg/m2 [facility], 07-24-2019 14:30-0400 Body weight 118.84 kg Aaliyah Farley [facility], [place] 07-24-2019 14:30-0400 Height 182.9 cm [facility], [place] 05-14-2019 19:10-0400 BMI (Body Mass Index) 38.65 kg/m2 Matthew Canales [facility], [place] 05-14-2019 19:10-0400 Body Temperature 98.1 [degF] Matthew Canales [facility], [place] 05-14-2019 19:10-0400 Body weight 129.28 kg Matthew Lopez [facility] , [place] 05-14-2019 19:10-0400 BP Diastolic 94 mm[Hg] Matthew Lopez [facility] , [place] 05-14-2019 19:10-0400 BP Systolic 161 mm[Hg] Matthew Lopez [facility] , [place] 05-14-2019 19:10-0400 Height 182.9 cm Matthew Lopez [facility] , [place] 05-14-2019 19:10-0400 Pulse (Heart Rate) 92 /min Matthew Lopez [facility], [place] 05-14-2019 19:10-0400 Pulse Oximetry 99 % Matthew Lopez [facility] , [place] 05-14-2019 19:10-0400 Respiratory Rate 18 /min Matthew Canales [facility], [place] 05-12-2019 01:46-0400 BP Diastolic 63 mm[Hg] Matthew Lopez [facility] , [place] 05-12-2019 01:46-0400 BP Systolic 115 mm[Hg] Matthew Lopez [facility] , [place] 05-12-2019 01:46-0400 Pulse (Heart Rate) 56 /min Matthew Lopez [facility], [place] 05-12-2019 01:46-0400 Pulse Oximetry 96 % [facility] [place] 05-12-2019 01:46-0400 Respiratory Rate 18 /min [facility] [place] 05-11-2019 23:49-0400 BMI (Body Mass Index) 37.6 kg/m2 Matthew Canales [facility], [place] 05-11-2019 23:49-0400 Body Temperature 98.4 [degF] Matthew Lopez [facility], [place] 05-11-2019 23:49-0400 Body weight 129.28 kg Matthew Lopez [facility] , [place] 05-11-2019 23:49-0400 Height 185.4 cm Matthew Lopez [facility] , [place] 05-11-2019 01:29-0400 BP Diastolic 92 mm[Hg] [facility] [place] 05-11-2019 01:29-0400 BP Systolic 128 mm[Hg] [facility] , [place] 05-11-2019 01:29-0400 Pulse (Heart Rate) 70 /min Nicolás [place], [place] 05-11-2019 01:29-0400 Pulse Oximetry 96 % [place] 05-11-2019 01:29-0400 Respiratory Rate 16 /min Nicolás [facility], [place] 05-11-2019 00:17-0400 BMI (Body Mass Index) 38.79 kg/m2 [facility] [place] 05-11-2019 00:17-0400 Body Temperature 98.4 [degF] [facility] [place] 05-11-2019 00:17-0400 Body weight 129.73 kg [facility] [place] 05-11-2019 00:17-0400 Height 182.9 cm Nicolás [place] Encounters Encounter Date Encounter Type Care Provider Facility Start: 06-29-2024 End: 06-29-[address] USHA FRAZIER DO Facility[facility] Start: 06-29-2024 End: 06-29-2024 Patient encounter procedure STEFANY PAGE MD [facility] Start: 06-29-2024 End: 06-29-2024 Special examination status STEFANY PAGE MD [facility] Start: 09-06-2023 End: 09-06-2023 Emergency department patient visit CYNTHIA MURPHY MD Facility:B Start: 09-06-2023 End: 09-06-2023 Emergency department patient visit CYNTHIA MURPHY MD [facility] Start: 11-23-2022 End: 11-23-2022 Emergency department patient visit USHA ALVARADO DARIO Facility:[facility] Start: 11-10-2020 End: 11-10-2020 Subsequent hospital visit by physician Spencer Fonseca Work Phone: [facility] Pre-Admit Testing Comment on above: Arrived Start: 10-30-2020 End: 10-30-2020 Emergency department patient visit Matthew Lopez Work Phone: [facility] Emergency Dept Comment on above: Generalized abdomina l pain (Primary Dx) Start: 08-26-2020 End: 08-26-2020 Emergency department patient visit Matthew Lopez Work Phone: [facility] Emergency Dept Comment on above: Encounter for post s urgical wound check (Primary Dx) Start: 08-09-2020 End: 08-15-2020 Evaluation and management of inpatient Spencer Fonseca Work Phone: [facility] MED SURG Comment on above: Colon perforation (H CC) (Primary Dx) Start: 08-09-2020 End: 08-09-2020 Subsequent hospital visit by physician Spencer Fonseca Work Phone: [facility] [address] [facility] Comment on above: Colon perforation (H CC) Start: 07-03-2020 End: 07-03-2020 Emergency department patient visit Andreina Hough Work Phone: [facility] Comment on above: Lower abdominal pain (Primary Dx) Start: 06-26-2020 End: 07-01-2020 Evaluation and management of inpatient Baudilio Frank Work Phone: [facility] H5 MED SURG Comment on above: Diverticulitis (Prim juju Dx); Intra-abdominal abscess (HCC); Left lower quadrant abdominal pain Start: 05-08-2020 End: 05-10-2020 Evaluation and management of inpatient Winston Jefferson Work Phone: [facility] Comment on above: Intractable nausea a nd vomiting (Primary Dx); Generalized abdominal pain; Acute Crohn's disease with fistula (HCC) Start: 04-27-2020 End: 04-28-2020 Evaluation and management of inpatient Rosendo Wild Work Phone: [facility] Start: 10-21-2019 End: 10-21-2019 Emergency department patient visit Winston Jefferson DO Work Phone: [facility] ED Comment on above: Chronic abdominal pa in (Primary Dx) Start: 10-19-2019 End: 10-19-2019 Emergency department patient visit Vimal Walton MD Work Phone: [facility] Emergency Dept Comment on above: Right lower quadrant abdominal pain (Primary Dx); Crohn's colitis, unspecified complication (HCC) Start: 10-18-2019 End: 10-18-2019 Emergency department patient visit Perez Hernandez MD Work Phone: [facility] ED Comment on above: Generalized abdomina l pain (Primary Dx); Essential hypertension Start: 10-17-2019 End: 10-17-2019 Emergency department patient visit Ranulfo Hermosillo MD [facility] Comment on above: Right lower quadrant abdominal pain (Primary Dx) Start: 08-17-2019 End: 08-17-2019 Emergency department patient visit Benedict Stevens Work Phone: [facility] Comment on above: Diarrhea, unspecifie d type (Primary Dx); Non-intractable vomiting with nausea, unspecified vomiting type; Viral syndrome Start: 08-05-2019 End: 08-08-2019 Evaluation and management of inpatient Aaliyah Farley Work Phone: [facility] MED SURG Comment on above: IBD (inflammatory mark wel disease) (Primary Dx) Start: 07-27-2019 End: 07-29-2019 Evaluation and management of inpatient Bob Thompson Work Phone: [facility] Start: 07-24-2019 End: 07-25-2019 Evaluation and management of inpatient Aaliyahac Farley Work Phone: [facility] Start: 05-14-2019 End: 05-14-2019 Emergency department patient visit Matthew Lopez Work Phone: [facility] Comment on above: Right upper quadrant abdominal pain (Primary Dx) Start: 05-11-2019 End: 05-12-2019 Emergency department patient visit Matthew Lopez Work Phone: [facility] ED Comment on above: Abdominal pain, righ t lower quadrant (Primary Dx); Crohn's disease of small intestine without complication (HCC) Start: 05-11-2019 End: 05-11-2019 Emergency department patient visit Nicolás Maya Work Phone: [facility] Comment on above: Generalized abdomina l pain (Primary Dx) Start: 10-27-2018 Patient encounter procedure Melanie Ocasio Facility:[id number] Procedures Date Procedure Procedure Detail Performing Clinician Start: 11-10-2020 Blood count hemoglobin Samanta A Grope Work Phone: Start: 11-10-2020 Blood typing serologic abo Samanta A Grop e Work Phone: Start: 10-30-2020 CT Abdomen and Pelvis W contrast IV Jamie Ana Masan Work Phone: Start: 10-30-2020 Assay of lactate Jamie Ana Masan Work Phone: Start: 10-30-2020 Assay of lipase Jamie Ghimbasan Work Phone: Start: 10-30-2020 Basic metabolic panel calcium total Jamie Ghimbasan Work Phone: Start: 10-30-2020 Blood count complete auto&auto difrntl wbc Jamie Ghimbasan Work Phone: Start: 10-30-2020 Hepatic function panel Jamie Ana Masa n Work Phone: Start: 08-15-2020 Assay of magnesium Louise Susie Work Phone: Start: 08-15-2020 BASIC METABOLIC PANEL W/ REFLEX TO MG FOR LOW K Lousie Susie Work Phone: Start: 08-15-2020 Blood count complete auto&auto difrntl wbc Louise Mcginnispen Work Phone: Start: 08-15-2020 MANUAL DIFFERENTIAL Louise Richards Work Phone: Start: 08-14-2020 BASIC METABOLIC PANEL W/ REFLEX TO MG FOR LOW K Louise Susie Work Phone: Start: 08-14-2020 Blood count complete auto&auto difrntl wbc Louise Mcginnispen Work Phone: Start: 08-13-2020 Assay of magnesium Louise Mcginnispen Work Phone: Start: 08-13-2020 BASIC METABOLIC PANEL W/ REFLEX TO MG FOR LOW K Louise Susie Work Phone: Start: 08-13-2020 Blood count complete auto&auto difrntl wbc Louise Mcginnispen Work Phone: Start: 08-12-2020 Assay of phosphorus inorganic Louise Mcginnispe n Work Phone: Start: 08-12-2020 BASIC METABOLIC PANEL W/ REFLEX TO MG FOR LOW K Louise Mcginnispen Work Phone: Start: 08-12-2020 Blood count complete auto&auto difrntl wbc Louise Mcginnispen Work Phone: Start: 08-11-2020 Blood count hemoglobin Louise Mcginnispen Work Phone: Start: 08-11-2020 Assay of phosphorus inorganic Louise Eape n Work Phone: Start: 08-11-2020 BASIC METABOLIC PANEL W/ REFLEX TO MG FOR LOW K Louise Susie Work Phone: Start: 08-11-2020 Blood count complete auto&auto difrntl wbc Louise Mcginnispen Work Phone: Start: 08-10-2020 [facility] ENDOSCOPY REPORT 3m Scanning Start: 08-10-2020 Potassium serum plasma/whole blood Ranulfo Branham Work Phone: Start: 08-10-2020 Assay of phosphorus inorganic Louise Corral n Work Phone: Start: 08-10-2020 BASIC METABOLIC PANEL W/ REFLEX TO MG FOR LOW K Louise Richards Work Phone: Start: 08-10-2020 Blood count complete auto&auto difrntl wbc Louise Richards Work Phone: Start: 08-09-2020 OPERATIVE REPORT 3m Scanning Start: 08-09-2020 Radiologic exam abdomen 1 view Louise Hunt en Work Phone: Start: 08-09-2020 Level iv surg pathology gross&microscopic exam Spencer Veliz Fondran Work Phone: Start: 07-01-2020 Basic metabolic panel calcium total Luiz Franklin Work Phone: Start: 07-01-2020 Blood count complete auto&auto difrntl wbc Luiz Franklin Work Phone: Start: 06-30-2020 Basic metabolic panel calcium total Luiz Franklin Work Phone: Start: 06-30-2020 Blood count complete auto&auto difrntl wbc Luiz Franklin Work Phone: Start: 06-29-2020 Basic metabolic panel calcium total Luiz Franklin Work Phone: Start: 06-29-2020 Blood count complete auto&auto difrntl wbc Luiz Franklin Work Phone: Start: 06-28-2020 OPERATIVE REPORT 3m Scanning Start: 06-28-2020 Level iv surg pathology gross&microscopic exam Spencer Veliz Fondran Work Phone: Start: 06-28-2020 [place] STUDIO 3 Spencer Veliz Fondran Work Phone: Start: 06-28-2020 Basic metabolic panel calcium total Luiz Franklin Work Phone: Start: 06-28-2020 Blood count complete auto&auto difrntl wbc Luiz Franklin Work Phone: Start: 06-27-2020 Blood typing serologic abo Baudilio C Ge mma Work Phone: Start: 06-27-2020 Basic metabolic panel calcium total Luiz Franklin Work Phone: Start: 06-27-2020 Blood count complete auto&auto difrntl wbc Luiz Franklin Work Phone: Start: 06-27-2020 Prothrombin time Emre Garg Work Phone: Start: 06-27-2020 Urnls dip stick/tablet rgnt auto w/o microscopy Emreariella Garg Work Phone: Start: 06-26-2020 CT Abdomen and Pelvis W contrast IV Adin Gabriela Cristine Work Phone: Start: 06-26-2020 Assay of lactate Adin Gabriela Cristine Work Phone: Start: 06-26-2020 Assay of lipase Adin Gabriela Cristine Work Phone: Start: 06-26-2020 Blood count complete auto&auto difrntl wbc Adin D Cristine Work Phone: Start: 06-26-2020 Comprehensive metabolic panel Adin songjarod Work Phone: Start: 05-10-2020 Mri abdomen w/o & w/contrast material Misha Henderson Work Phone: Start: 05-10-2020 Blood count complete automated Rosendo Loyola Work Phone: Start: 05-09-2020 Assay of lactate Lainey Guzman Work Phone: Start: 05-09-2020 BASIC METABOLIC PANEL W/ REFLEX TO MG FOR LOW K Lainey Guzman Work Phone: Start: 05-09-2020 Blood count complete auto&auto difrntl wbc Lainey Guzman Work Phone: Start: 05-09-2020 C-reactive protein Lainey Guzman Work Phone: Start: 05-09-2020 Sedimentation rate rbc automated Mitchel Guzman Work Phone: Start: 05-08-2020 Computed tomography of abdomen and pelvis with contrast Marily Oakley Work Phone: Start: 05-08-2020 Urnls dip stick/tablet rgnt auto w/o microscopy Joyce Fernandez Work Phone: Start: 05-08-2020 Assay of lactate Marily Oakley Work Phone: Start: 05-08-2020 Assay of lipase Marily Oakley Work Phone: Start: 05-08-2020 Basic metabolic panel calcium total Marily Oakley Work Phone: Start: 05-08-2020 Blood count complete auto&auto difrntl wbc Marily Oakley Work Phone: Start: 05-08-2020 Hepatic function panel Marily Oakley Work Phone: Start: 04-28-2020 Blood count complete auto&auto difrntl wbc Rosendo Wild Work Phone: Start: 04-28-2020 Blood count complete automated Rosendo Loyola Work Phone: Start: 04-27-2020 Computed tomography of abdomen and pelvis with contrast Kavon Diez Work Phone: Start: 04-27-2020 Assay of lactate Rommel Scot Work Phone: Start: 04-27-2020 C-reactive protein Kavon Diez Work Phone: Start: 04-27-2020 Urnls dip stick/tablet rgnt auto w/o microscopy Kavon Diez Work Phone: Start: 04-27-2020 Sedimentation rate rbc automated Kavon Diez Work Phone: Start: 04-27-2020 ADD ON LAB TEST Kavon Diez Work Phone: Start: 04-27-2020 Blood count complete auto&auto difrntl wbc Rosendo Wild Work Phone: Start: 04-27-2020 C-reactive protein Rosendo Wild Work Phone: Start: 10-21-2019 Urnls dip stick/tablet rgnt auto w/o microscopy Winston Leembash DO Work Phone: Start: 10-21-2019 BLOOD OCCULT STOOL SCREEN #1 Winston Elaine bash DO Work Phone: Start: 10-21-2019 Comprehensive metabolic panel Winston eLe mbmamie DO Work Phone: Start: 10-19-2019 Urnls dip stick/tablet rgnt auto w/o microscopy Roberto Arcos MD Work Phone: Start: 10-19-2019 Assay of lactate Roberto Arcos MD Work Phone: Start: 10-19-2019 Comprehensive metabolic panel Roberto alcantara MD Work Phone: Start: 10-18-2019 Ct head/brain w/o contrast material Ernie Mcmahon MD Work Phone: Start: 10-18-2019 Urnls dip stick/tablet rgnt auto w/o microscopy Perez Hernandez MD Work Phone: Start: 10-18-2019 Ecg routine ecg w/least 12 lds w/i&r Ernie Mcmahon MD Work Phone: Start: 10-18-2019 Comprehensive metabolic panel Perez amaya MD Work Phone: Start: 10-18-2019 Manual Differential panel - Blood Perez Hernandez MD Work Phone: Start: 10-17-2019 Urnls dip stick/tablet rgnt auto w/o microscopy Ranulfo Hermosillo MD Work Phone: Start: 10-17-2019 CT ABDOMEN PELVIS W CONTRAST Ranulfo herrmann MD Work Phone: Start: 10-17-2019 Basic metabolic panel calcium total Ranulfo Hermosillo MD Work Phone: Start: 10-17-2019 Hepatic function panel Ranulfo Hermosillo MD Work Phone: Start: 10-17-2019 Manual Differential panel - Blood Ranulfo Hermosillo MD Work Phone: Start: 08-17-2019 Urnls dip stick/tablet rgnt auto w/o microscopy Benedict Stevens Work Phone: Start: 08-17-2019 CT ABDOMEN PELVIS W CONTRAST Benedict Stevens Work Phone: Start: 08-17-2019 Radiologic exam chest 2 views Benedict Stevens Work Phone: Start: 08-17-2019 Assay of lipase Benedict Stevens Work Phone: Start: 08-17-2019 Blood count complete auto&auto difrntl wbc Benedict Stevens Work Phone: Start: 08-17-2019 Comprehensive metabolic panel Benedict Stevens Work Phone: Start: 08-07-2019 Blood count complete auto&auto difrntl wbc Marily Louis Work Phone: Start: 08-07-2019 C-reactive protein Marily Louis Work Phone: Start: 08-07-2019 Comprehensive metabolic panel Marily Ni Sc hemm Work Phone: Start: 08-07-2019 Sedimentation rate rbc automated Marily Louis Work Phone: Start: 08-06-2019 Blood count complete auto&auto difrntl wbc Aaliyah Farley Work Phone: Start: 08-06-2019 C-reactive protein Bulmaro Jerez Work Phone: Start: 08-06-2019 Sedimentation rate rbc automated Bulmaro Leearik Work Phone: Start: 07-29-2019 Blood count complete auto&auto difrntl wbc Deidre Pasttheresa Work Phone: Start: 07-28-2019 Inf agent det nucleic acid clostridium amp probe oBb Molinag Work Phone: Start: 07-28-2019 Blood count complete auto&auto difrntl wbc Deidre Pastvenkatsa Work Phone: Start: 07-25-2019 Blood count complete auto&auto difrntl wbc Sophia Browning Work Phone: Start: 07-24-2019 Mri abdomen w/o & w/contrast material Kulwinder Claire Work Phone: Start: 05-14-2019 Assay of lipase Matthew Lopez Work Phone: Start: 05-14-2019 Blood count complete auto&auto difrntl wbc Matthew Lopez Work Phone: Start: 05-14-2019 Comprehensive metabolic panel Matthew Lopez Work Phone: Start: 05-12-2019 CT ABDOMEN PELVIS W CONTRAST Matthew Lopez Work Phone: Start: 05-12-2019 Assay of lipase Matthew Lopez Work Phone: Start: 05-12-2019 Blood count complete auto&auto difrntl wbc Matthew Lopez Work Phone: Start: 05-12-2019 Comprehensive metabolic panel Matthew Lopez Work Phone: Start: 05-11-2019 Assay of lipase Nicolás Maya Work Phone: Start: 05-11-2019 Basic metabolic panel calcium total Nicolás Maya Work Phone: Start: 05-11-2019 Blood count complete automated Nicolás Chambers Work Phone: Start: 05-11-2019 Hepatic function panel Nicolás Maya Work Phone: Start: 05-11-2019 Urnls dip stick/tablet rgnt auto w/o microscopy Nicolás Maya Work Phone: Esophagogastroduodenoscopy A DAMASO MURPHY MD Fasciotomy of foot CYNTHIA WINSTON MD Testicular feature ( observable entity) CYNTHIA MURPHY MD Comment on above: surgery for Plan of Treatment Date Care Activity Detail Author Start: 07-01-2021 Creatinine measurement Creatinine monitoring [place], [place] Start: 07-01-2021 Potassium monitoring Potassium monitoring [facility] [place] [place] Start: 05-09-2021 Creatinine measurement Creatinine monitoring [facility] [place] Start: 05-09-2021 Potassium monitoring Potassium monitoring [facility] [place] Start: 04-27-2021 Creatinine measurement Creatinine monitoring [facility] [place] Start: 04-27-2021 Potassium monitoring Potassium monitoring [facility] [place] Start: 11-30-2020 End: 11-30-2020 Office Visit 11/30/2020 Office Visit Colon and Rectal Surgery Spencer Fonseca MD [address] [place] [address] [phone] [facility] Start: 11-17-2020 End: 11-17-2020 Appointment 11/17/2020 Appointment General Surgery Spencer Fonseca MD [address] [place] [address] [phone] [facility] General Surgery Start: 10-19-2020 Creatinine monitoring Creatinine monitoring [facility] Work Phone: Start: 10-19-2020 Potassium monitoring Potassium monitoring [facility] Work Phone: Start: 10-17-2020 Creatinine monitoring Creatinine monitoring [facility] Work Phone: Start: 10-17-2020 Potassium monitoring Potassium monitoring [facility] Work Phone: Start: 08-17-2020 Creatinine monitoring Creatinine monitoring [facility] Work Phone: Start: 08-17-2020 Potassium monitoring Potassium monitoring [facility] Work Phone: Start: 08-09-2020 End: 08-09-2020 Appointment 08/09/2020 Appointment IP Unit Arielle Coburn MD [address] [place] [address] [phone] [facility] [address] [facility] Start: 08-07-2020 Creatinine monitoring Creatinine [place] [facility] [place] [facility] [place] Start: 08-07-2020 Potassium monitoring Potassium monitoring [facility] [place] Start: 08-06-2020 Creatinine monitoring Creatinine monitoring [facility] [place] [facility] [place] Start: 08-06-2020 Potassium monitoring Potassium monitoring [facility] [place] Start: 07-29-2020 Creatinine monitoring Creatinine monitoring [place], [place] Start: 07-29-2020 Potassium monitoring Potassium monitoring [place], [place] Start: 07-25-2020 Creatinine monitoring Creatinine monitoring [place], [place] Start: 07-25-2020 Potassium monitoring Potassium monitoring [place], [place] Start: 07-20-2020 DTaP/Tdap/Td vaccine (9 - Td) DTaP/Tdap/Td vaccine (9 - Td) [place], [place] Start: 05-31-2020 Influenza vaccination Flu vaccine (#1) [place], [place] Start: 05-31-2020 End: 05-31-2020 Virtual Visit 05/31/2020 Virtual Visit Gastroenterology Arielle Coburn MD [address] [place] [address] [phone] [facility] Start: 11-06-2019 End: 11-06-2019 Patient encounter procedure 11/06/2019 Office Visit Pain Management Brittnee Farley MD [address] [place] [address] [phone] Pain Medicine Start: 11-03-2019 End: 11-03-2019 Patient encounter procedure 11/03/2019 Office Visit Gastroenterology Arielle Coburn MD [address] [place] [address] [phone] [facility] Start: 10-23-2019 End: 10-23-2019 Patient encounter procedure 10/23/2019 Office Visit Family Medicine Dawson Mackey LISW [address], [place] [id number] [facility] Start: 09-15-2019 End: 09-15-2019 Office Visit 09/15/2019 Office Visit Gastroenterology Arielle Coburn MD [address] [place] [address] [phone] [facility] Start: 05-31-2019 Influenza vaccination Flu vaccine (#1) [place], [place] Start: 03-22-2019 Annual Wellness Visit (AWV) Annual Wellness Visit (AWV) [place] Start: 02-28-2019 DTaP/Tdap/Td vaccine (7 - Td) DTaP/Tdap/Td vaccine (7 - Td) [place], [place] Start: 2005 HIV screen HIV screen [place] Start: 2005 HIV screening HIV screen [place] Start: 2003 Varicella Vaccine (1 of 2 - 13+ 2-dose series) Varicella Vaccine (1 of 2 - 13+ 2-dose series) [place] Start: 01-02-1996 Pneumococcal 0-64 years Vaccine (1 of 1 - PPSV23) Pneumococcal 0-64 years Vaccine (1 of 1 - PPSV23) [place] Start: 1991 Varicella Vaccine (1 of 2 - 2-dose childhood series) Varicella Vaccine (1 of 2 - 2-dose childhood series) [place] Acapella Acapella Respira tory Care Routine Now Then Every 1hr until discontinued starting 08/09/2020 [place] Comment on above: Now Then Every 1hr until discontinued st arting 08/09/2020 Basic metabolic 2000 panel Basic Metabolic Panel Lab Routine Daily until discontinued starting 06/27/2020, 5 completed [place] Comment on above: Daily until discontinued starting 2019, 5 completed Basic Metabolic Pane l w/ Reflex to MG Basic Metabolic Panel w/ Reflex to MG Lab Routine Daily until discontinued starting 08/10/2020, 6 completed [place] Comment on above: Daily until discontinued starting 2019, 6 completed End: 04-30-2020 CBC CBC Lab Routine Tomorrow AM for 3 Occurrences starting 04/28/2020 until 04/30/2020, 1 completed [place] Comment on above: Tomorrow AM for 3 Occurrences starting 0 04/28/2020 until 04/30/2020, 1 completed CBC WITH AUTO DIFFERENTIAL [place] Comment on above: Daily until discontinued starting 2019, 5 completed Daily until disconti nued starting 08/10/2020, 6 completed Daily until disconti nued starting 07/28/2019, 2 completed End: 04-29-2020 Comprehensive Metabolic Panel w/ Reflex to MG Comprehensive Metabolic Panel w/ Reflex to MG Lab Routine Tomorrow AM for 3 Occurrences starting 04/27/2020 until 04/29/2020, [facility] Tomorrow AM for 3 Occurrences starting 0 04/27/2020 until 04/29/2020, 2 completed Comprehensive Metabolic Panel w/ Reflex to MG Comprehensive Metabolic Panel w/ Reflex to MG Lab Routine Daily until discontinued starting 07/28/2019, [facility] on above: Daily until discontinued starting 2018, 2 completed EKG 12 Lead EKG 12 Lead ECG Routine 10/18/2019 7:44 PM EST [employer] Work Phone: End: 04-28-2020 Hep B DNA PCR Quant Hep B DNA PCR Quant Lab Routine One Time for 1 Occurrences starting 04/28/2020 until 04/28/2020 [facility]: One Time for 1 Occurrences starting 04/01 until 04/28/2020 Initiate [facility]xygen [facility] Protocol [facility] Comment on above: Daily until discontinued starting 2018 Daily until disconti nued starting 07/24/2019 Daily until disconti nued starting 07/27/2019 Nebulizer therapy [facility] Treatment Respiratory Care Routine Every 6hr until discontinued starting 08/10/2020 [facility] on above: Every 6hr until discontinued starting Oxygen therapy [facility] [place] Comment on above: Daily until discontinued starting 2019 Daily until disconti nued starting 04/27/2020 Oxygen therapy [Minimum Data Set] [facility] Comment on above: Daily until discontinued starting 2019 Daily until disconti nued starting 08/09/2020 End: 04-28-2020 QUANTIFERON (R) TB GOLD, (INCUBATED) QUANTIFERON (R) TB GOLD, (INCUBATED) Microbiology Routine One Time for 1 Occurrences starting 04/28/2020 until 04/28/2020 [facility] Comment on above: One Time for 1 Occurrences starting 04/01 until 04/28/2020 Spirometry panel Incentive telma metry Respiratory Care Routine Every 2hr while awake until discontinued starting 06/26/2020 [place] Comment on above: Every 2hr while awake until discontinued starting 06/26/2020 End: 06-28-2020 Wound ostomy eval Wound ostomy eval Wound Ostomy Routine One Time for 1 Occurrences starting 06/28/2020 until 06/28/2020 [place] Comment on above: One Time for 1 Occurrences starting 06/01 until 06/28/2020 End: 08-09-2020 Wound ostomy eval and treat Wound ostomy eval and treat Wound Ostomy Routine One Time for 1 Occurrences starting 08/09/2020 until 08/09/2020 [place] Comment on above: One Time for 1 Occurrences starting 07/31 until 08/09/2020 Immunizations Immunization Date Immunization Notes Care Provider Ervin torres 07-29-2019 influenza, injectable, quadrivalent, preservative free [place] 07-28-2019 influenza quadrivalent split vaccine (FLUZONE;FLUARIX;FLUL AVAL;AFLURIA) injection 0.5 mL [place] 05-31-2018 influenza virus vaccine, unspecified formulation Nicolás Maya [facility], [place] 07-20-2010 tetanus toxoid, reduced diphtheria toxoid, and acellular pertussis vaccine, adsorbed CYNTHIA MURPHY MD [facility] 05-17-2006 tetanus toxoid, reduced diphtheria toxoid, and acellular pertussis vaccine, adsorbed CYNTHIA MURPHY MD [facility] 11-25-2001 hepatitis B pediatri c vaccine CYNTHIA MURPHY MD [facility] 05-05-2001 hepatitis B pediatri c vaccine CYNTHIA MURPHY MD [facility] 04-04-2001 hepatitis B pediatri c vaccine CYNTHIA MURPHY MD [facility] NEGATED: Highlighted row has not occurred!12-05-2018 tuberculin skin test; purified protein derivative solution, intradermal Nicolás Maya [facility] Payers Date Payer Category Payer Unknown [id number] 2020 Medicare MEDICARE MEDICAR E PART A AND B [id number] 2020-Present [phone] [address] [address] [place] [address] [id number] 2016 Unknown [id number] 2016 Unknown [employer] [place] [employer] [place] DUAL xxxxxxxxxxx 2016-Present [address] [place] [address] xxxxxxxxxxx [id number] 2016 Unknown [employer] [place] [employer] [place] [employer] [id number] 2016-Present [address] [place] [address] [id number] 1990 Unknown [id number] 1990 Unknown [id number] 1990 Unknown [id number] Social History Date Type Detail Facility Start: 11-18-2008 End: 10-21-2019 Tobacco smoking status NHIS [facility] Start: 05-11-2019 End: 10-21-2019 Cigarettes smoked current (pack per day) - [facility] Start: 05-11-2019 End: 07-27-2019 Alcohol intake Not Currently [facility] Start: 11-18-2018 Alcohol Comment Last drinking was on 07/02/2018. no he ETOH [facility] At Not on [facility] Start: 08-05-2019 End: 10-21-2019 Alcohol intake Ex-drinker (finding) [facility] Jarod OLIVER Y Start: 11-18-2008 History of tobacco use [facility]oker [facility] Start: 05-08-2020 End: 08-09-2020 [facility] use and exposure [facility] Exposure to SARS-CoV -2 (event) Not sure [facility] Start: 08-09-2020 End: 08-10-2020 Alcohol intake Current drink[facility] of [facility] (finding[facility] Start: 08-09-2020 [facility] Start: 11-10-2020 Tobacco Comment five cigs a day [facility] Work Phone: Start: 11-10-2020 Alcohol Comment rare 3-4 shots a sat [facility] Work Phone: Start: 11-18-2018 Alcohol Comment Last drinking was on 07/02/2018. no he ETOH [facility] Work Phone: Start: 10-30-2019 Tobacco smoking status Heavy t obacco smoker (finding) [facility] Comment on above: Daily Tobacco/Smoke Exposure Sex Assigned At Male [facility] Functional Status Date Assessment Result Facility 09-06-2023 Functional Status Independent [facility] 09-06-2023 Functional Status Environmental Safety Implemented Adequate room lighting, Bed in low position, Call device within reach [facility] 09-06-2023 Functional Status Standard Safet y ID band on, Call device within reach, Bed in low position, Wheels locked, Visitor at bedside [facility] Mental Status Date Assessment Result Facility 09-06-2023 Mental Status Orientation Oriented x 4 [facility] 09-06-2023 Mental Status [facility] Clinical Notes 10-19-2019 to 09-06-2023 InstructionsAttachments Note Date & Type Note Facility 09-06-2023 Hospital Discharg e instructions Patient Education 09/06/2023 20:54:42 Abdominal Pain Abdominal Pain Abdominal pain is pain in the stomach or belly area. Everyone has this pain from time to time. In many cases it goes away on its own. But abdominal pain can sometimes be due to a serious problem, such as appendicitis. So it s important to know when to get help. Causes of abdominal pain There are many possible causes of abdominal pain. Common causes in adults include: Constipation, diarrhea, or gas Stomach acid flowing back up into the esophagus (acid reflux or heartburn) Severe acid reflux, called GERD (gastroesophageal reflux disease) A sore in the lining of the stomach or small intestine (peptic ulcer) Inflammation of the gallbladder, liver, or pancreas Gallstones or kidney stones Appendicitis Intestinal blockage An internal organ pushing through a muscle or other tissue (hernia) Urinary tract infections In women, menstrual cramps, fibroids, ovarian cysts, pelvic inflammatory disease, or endometriosis Inflammation or infection of the intestines, including Crohn's disease and ulcerative colitis Irritable bowel syndrome Diagnosing the cause of abdominal pain Your healthcare provider will give you a physical exam help find the cause of your pain. If needed, you will have tests. Belly pain has many possible causes. So it can be hard to find the reason for your pain. Giving details about your pain can help. Tell your provider where and when you feel the pain, and what makes it better or worse. Also let your provider know if you have other symptoms such as: Fever Tiredness Upset stomach (nausea) Vomiting Changes in bathroom habits Blood in the stool or black, tarry stool Weight loss that you can't explain (involuntary weight loss?) Also report any family history of stomach or intestinal problems, or cancers. Tell your provider about all your alcohol use and drug use. Tell your provider about all medicines you use, including herbs, vitamins, and supplements. Treating abdominal pain Some causes of pain need emergency medical treatment right away. These include appendicitis or a bowel blockage. Other problems can be treated with rest, fluids, or medicines. Your healthcare provider can give you specific instructions for treatment or self-care based on what is causing your pain. If you have vomiting or diarrhea, sip water or other clear fluids. When you are ready to eat solid foods again, start with small amounts of hecg-ti-txuqee, low-fat foods. These include apple sauce, toast, or crackers. When to get medical care Call 911 or go to the hospital right away if you: Can t pass stool and are vomiting Are vomiting blood or have bloody diarrhea or black, tarry diarrhea Have chest, neck, or shoulder pain Feel like you might pass out Have pain in your shoulder blades with nausea Have sudden, severe belly pain Have new, severe pain unlike any you have felt before Have a belly that is rigid, hard, and hurts to touch Call your healthcare provider if you have: Pain for more than 5 days Bloating for more than 2 days Diarrhea for more than 5 days A fever of 100.4 F (38 C) or higher, or as directed by your healthcare provider Pain that gets worse Weight loss for no reason Continued lack of appetite Blood in your stool How to prevent abdominal pain Here are some tips to help prevent abdominal pain: Eat smaller amounts of food at each meal. Don't eat greasy, fried, or other high-fat foods. Don't eat foods that give you gas. Exercise regularly. Drink plenty of fluids. To help prevent GERD symptoms: Quit smoking. Reduce alcohol and foods that increase stomach acid. Don't use aspirin or gfqk-nqa-xauzvsa pain and fever medicines, if possible. This includes nonsteroidal anti-inflammatory drugs (NSAIDs). Lose excess weight. Finish eating at least 2 hours before you go to bed or lie down. Raise the head of your bed. [id number] [employer]. [address] [place] [address]. All rights reserved. This information is not intended as a substitute for professional medical care. Always follow your healthcare professional's instructions. 09/06/2023 19:45:20 Treating Anxiety Disorders with Medication Treating Anxiety Disorders with Medicine An anxiety disorder can make you feel nervous or apprehensive, even without a clear reason. In people age 65 and older, generalized anxiety disorder is one of the most commonly diagnosed anxiety disorders. Many times it occurs with depression. Certain anxiety disorders can cause intense feelings of fear or panic. You may even have physical symptoms such as a racing heartbeat, sweating, or dizziness. If you have these feelings, you don t have to suffer anymore. Treatment to help you overcome your fears will likely include therapy (also called counseling). Medicine may also be prescribed to help control your symptoms. Medicines Certain medicines may be prescribed to help control your symptoms. So you may feel less anxious. You may also feel able to move forward with therapy. At first, medicines and dosages may need to be adjusted to find what works best for you. Try to be patient. Tell your healthcare provider how a medicine makes you feel. This way, you can work together to find the treatment that s best for you. Keep in mind that medicines can have side effects. Talk with your provider about any side effects that are bothering you. Changing the dose or type of medicine may help. Don t stop taking medicine on your own. That can cause symptoms to come back or cause dangerous withdrawal symptoms. Anti-anxiety medicine. This medicine eases symptoms and helps you relax. Your healthcare provider will explain when and how to use it. It may be prescribed for use before situations that make you anxious. You may also be told to take medicine on a regular schedule. Anti-anxiety medicine may make you feel a little sleepy or out of it. Don t drive a car or operate machinery while on this medicine, until you know how it affects you. Never use alcohol or other drugs with anti-anxiety medicines. This could result in loss of muscular control, sedation, coma, or . Also, use only the amount of medicine prescribed for you. If you think you may have taken too much, get emergency care right away. Never share your medications with others. Store these medications in a safe place that can't be accessed by children or visitors. Keep taking medicines as prescribed Never change your dosage, share or use another person's medicine, or stop taking your medicines without talking to your healthcare provider first. Keep the following in mind: Some medicines must be taken on a schedule. Make this part of your daily routine. For instance, always take your pill before brushing your teeth. A pillbox can help you remember if you ve taken your medicine each day. Medicines are often taken for 6 to 12 months. Your healthcare provider will then evaluate whether you need to stay on them. Many people who have also had therapy may no longer need medicine to manage anxiety. You may need to stop taking medicine slowly to give your body time to adjust. When it s time to stop, your healthcare provider will tell you more. Remember: Never stop taking your medicine without talking to your provider first. If symptoms return, you may need to start taking medicines again. This isn t your fault. It s just the nature of your anxiety disorder. Side effects. Medicines may cause side effects. Ask your healthcare provider or pharmacist what you can expect. They may have ideas for avoiding some side effects. Sexual problems. Some antidepressants can affect your desire for sex or your ability to have an orgasm. A change in dosage or medicine often solves the problem. If you have a sexual side effect that concerns you, tell your healthcare provider. Addiction. If you ve never had a problem with drugs or alcohol, you may not have a problem with medicines used to treat anxiety disorders. But always discuss the medicines with your healthcare provider before taking them. If you have a history of addiction, you may not be able to use certain medicines used to treat anxiety disorders. Medicine interactions. Always check with your pharmacist before using any hvgk-dvt-tfozjmc medicines (OTCs), including herbal supplements. Some OTCs may interact with your anti-anxiety medications and increase or decrease their effectiveness. [id number] [employer] [place] [address]. All rights reserved. This information is not intended as a substitute for professional medical care. Always follow your healthcare professional's instructions. 09/06/2023 19:45:19 Treating Anxiety Disorders with Therapy Treating Anxiety Disorders with Therapy If you have an anxiety disorder, you don t have to suffer anymore. Treatment is available. Therapy (also called counseling) is often a helpful treatment for anxiety disorders. With therapy, a specially trained professional (therapist) helps you face and learn to manage your anxiety. Therapy can be short-term or long-term depending on your needs. In some cases, medicine may also be prescribed with therapy. It may take time before you notice how much therapy is helping, but stick with it. With therapy, you can feel better. Cognitive behavioral therapy (CBT) Cognitive behavioral therapy (CBT) teaches you to manage anxiety. It does this by helping you understand how you think and act when you re anxious. Research has shown CBT to be a very effective treatment for anxiety disorders. How CBT is run is almost like a class. It involves homework and activities to build skills that teach you to cope with anxiety step by step. It can be done in a group or one-on-one, and often takes place for a set number of sessions. CBT has two main parts: Cognitive therapy helps you identify the negative, irrational thoughts that occur with your anxiety. You ll learn to replace these with more positive, realistic thoughts. Behavioral therapy helps you change how you react to anxiety. You ll learn coping skills and methods for relaxing to help you better deal with anxiety. Other forms of therapy Other therapy methods may work better for you than CBT. Or, you may move from CBT to another form of therapy as your treatment needs change. This may mean meeting with a therapist by yourself or in a group. Therapy can also help you work through problems in your life, such as drug or alcohol dependence, that may be making your anxiety worse. Getting better takes time Therapy will help you feel better and teach you skills to help manage anxiety assisted. But change doesn t happen right away. It takes a commitment from you. And treatment only works if you learn to face the causes of your anxiety. So, you might feel worse before you feel better. This can sometimes make it hard to stick with it. But remember: Therapy is a very effective treatment. The results will be well worth it. Helping yourself If anxiety is wearing you down, here are some things you can do to cope: Check with your doctor and rule out any physical problems that may be causing the anxiety symptoms. If an anxiety disorder is diagnosed, seek mental healthcare. This is an illness and it can respond to treatment. Most types of anxiety disorders will respond to talk therapy and medicine. Educate yourself about anxiety disorders. Keep track of helpful online resources and books you can use during stressful periods. Try stress management techniques such as meditation. Consider online or in-person support groups. Don t fight your feelings. Anxiety feeds itself. The more you worry about it, the worse it gets. Instead, try to identify what might have triggered your anxiety. Then try to put this threat in perspective. Keep in mind that you can t control everything about a situation. Change what you can and let the rest take its course. Exercise it s a great way to relieve tension and help your body feel relaxed. Examine your life for stress, and try to find ways to reduce it. Avoid caffeine and nicotine, which can make anxiety symptoms worse. Fight the temptation to turn to alcohol or unprescribed drugs for relief. They only make things worse in the long run. [id number] [employer]. [address] [place] [address], [place] [address]. All rights reserved. This information is not intended as a substitute for professional medical care. Always follow your healthcare professional's instructions. Follow Up Care 09/06/2023 15:15:33 With:USHA FRAZIER DO Address: [address] [facility] [address]- [phone] When:2-4 days [facility] 09-06-2023 Note Discharge Instructions Thank you for allowing [facility] to assist you with your healthcare needs. The following is important discharge information regarding your hospital visit. Diagnosis from Today's Visit Anxiety Anxiety What to Do Next Instructions from Your Care Team Take medications as prescribed. Follow up with primary care provider. No qualifying data available. Post Acute Orders No qualifying data available. You Need to Schedule the Following Appointments Follow Up with USHA FRAZIER DO When Within 2-4 days Where: [place] [address]- [phone] Allergies Compazine (Muscle spasm) Mushrooms (hives) Nyquil Cold Medicine (hives) bee pollen (anaphyalic shock) Medications Please ask your primary doctor or pharmacist before taking any other medication not listed, including over the counter drugs, herbal medications, vitamins and or supplements as they may interact with your home medications. What How Much When Why Instructions Last Dose Unchanged hydrOXYzine (hydrOXYzine hydrochloride 50 mg oral tablet) 1 tab(s) by mouth Four (4) times a day as needed for as needed for anxiety Anxiety Unchanged tiZANidine (tiZANidine 4 mg oral tablet) 1 tab(s) by mouth Every 8 hours Tear of right biceps muscle Lumbar paraspinal muscle spasm Duration: 20 Days Please take this list to your next doctor s visit. Bring all medications you take, including over the counter medications, herbals and other supplements with you to your doctor s visit. Patients and families are reminded to discard old lists and to update any records with all medication providers or retail pharmacies. Education Materials Abdominal Pain Abdominal pain is pain in the stomach or belly area. Everyone has this pain from time to time. In many cases it goes away on its own. But abdominal pain can sometimes be due to a serious problem, such as appendicitis. So it s important to know when to get help. Causes of abdominal pain There are many possible causes of abdominal pain. Common causes in adults include: Constipation, diarrhea, or gas Stomach acid flowing back up into the esophagus (acid reflux or heartburn) Severe acid reflux, called GERD (gastroesophageal reflux disease) A sore in the lining of the stomach or small intestine (peptic ulcer) Inflammation of the gallbladder, liver, or pancreas Gallstones or kidney stones Appendicitis Intestinal blockage An internal organ pushing through a muscle or other tissue (hernia) Urinary tract infections In women, menstrual cramps, fibroids, ovarian cysts, pelvic inflammatory disease, or endometriosis Inflammation or infection of the intestines, including Crohn's disease and ulcerative colitis Irritable bowel syndrome Diagnosing the cause of abdominal pain Your healthcare provider will give you a physical exam help find the cause of your pain. If needed, you will have tests. Belly pain has many possible causes. So it can be hard to find the reason for your pain. Giving details about your pain can help. Tell your provider where and when you feel the pain, and what makes it better or worse. Also let your provider know if you have other symptoms such as: Fever Tiredness Upset stomach (nausea) Vomiting Changes in bathroom habits Blood in the stool or black, tarry stool Weight loss that you can't explain (involuntary weight loss?) Also report any family history of stomach or intestinal problems, or cancers. Tell your provider about all your alcohol use and drug use. Tell your provider about all medicines you use, including herbs, vitamins, and supplements. Treating abdominal pain Some causes of pain need emergency medical treatment right away. These include appendicitis or a bowel blockage. Other problems can be treated with rest, fluids, or medicines. Your healthcare provider can give you specific instructions for treatment or self-care based on what is causing your pain. If you have vomiting or diarrhea, sip water or other clear fluids. When you are ready to eat solid foods again, start with small amounts of zkka-tx-figpld, low-fat foods. These include apple sauce, toast, or crackers. When to get medical care Call 911 or go to the hospital right away if you: Can t pass stool and are vomiting Are vomiting blood or have bloody diarrhea or black, tarry diarrhea Have chest, neck, or shoulder pain Feel like you might pass out Have pain in your shoulder blades with nausea Have sudden, severe belly pain Have new, severe pain unlike any you have felt before Have a belly that is rigid, hard, and hurts to touch Call your healthcare provider if you have: Pain for more than 5 days Bloating for more than 2 days Diarrhea for more than 5 days A fever of 100.4 F (38 C) or higher, or as directed by your healthcare provider Pain that gets worse Weight loss for no reason Continued lack of appetite Blood in your stool How to prevent abdominal pain Here are some tips to help prevent abdominal pain: Eat smaller amounts of food at each meal. Don't eat greasy, fried, or other high-fat foods. Don't eat foods that give you gas. Exercise regularly. Drink plenty of fluids. To help prevent GERD symptoms: Quit smoking. Reduce alcohol and foods that increase stomach acid. Don't use aspirin or aioj-ykm-cbjfetg pain and fever medicines, if possible. This includes nonsteroidal anti-inflammatory drugs (NSAIDs). Lose excess weight. Finish eating at least 2 hours before you go to bed or lie down. Raise the head of your bed. 2328-6294 [employer]. [address] [place] [address]. All rights reserved. This information is not intended as a substitute for professional medical care. Always follow your healthcare professional's instructions. Treating Anxiety Disorders with Medicine An anxiety disorder can make you feel nervous or apprehensive, even without a clear reason. In people age 65 and older, generalized anxiety disorder is one of the most commonly diagnosed anxiety disorders. Many times it occurs with depression. Certain anxiety disorders can cause intense feelings of fear or panic. You may even have physical symptoms such as a racing heartbeat, sweating, or dizziness. If you have these feelings, you don t have to suffer anymore. Treatment to help you overcome your fears will likely include therapy (also called counseling). Medicine may also be prescribed to help control your symptoms. Medicines Certain medicines may be prescribed to help control your symptoms. So you may feel less anxious. You may also feel able to move forward with therapy. At first, medicines and dosages may need to be adjusted to find what works best for you. Try to be patient. Tell your healthcare provider how a medicine makes you feel. This way, you can work together to find the treatment that s best for you. Keep in mind that medicines can have side effects. Talk with your provider about any side effects that are bothering you. Changing the dose or type of medicine may help. Don t stop taking medicine on your own. That can cause symptoms to come back or cause dangerous withdrawal symptoms. Anti-anxiety medicine. This medicine eases symptoms and helps you relax. Your healthcare provider will explain when and how to use it. It may be prescribed for use before situations that make you anxious. You may also be told to take medicine on a regular schedule. Anti-anxiety medicine may make you feel a little sleepy or out of it. Don t drive a car or operate machinery while on this medicine, until you know how it affects you. Never use alcohol or other drugs with anti-anxiety medicines. This could result in loss of muscular control, sedation, coma, or . Also, use only the amount of medicine prescribed for you. If you think you may have taken too much, get emergency care right away. Never share your medications with others. Store these medications in a safe place that can't be accessed by children or visitors. Keep taking medicines as prescribed Never change your dosage, share or use another person's medicine, or stop taking your medicines without talking to your healthcare provider first. Keep the following in mind: Some medicines must be taken on a schedule. Make this part of your daily routine. For instance, always take your pill before brushing your teeth. A pillbox can help you remember if you ve taken your medicine each day. Medicines are often taken for 6 to 12 months. Your healthcare provider will then evaluate whether you need to stay on them. Many people who have also had therapy may no longer need medicine to manage anxiety. You may need to stop taking medicine slowly to give your body time to adjust. When it s time to stop, your healthcare provider will tell you more. Remember: Never stop taking your medicine without talking to your provider first. If symptoms return, you may need to start taking medicines again. This isn t your fault. It s just the nature of your anxiety disorder. Side effects. Medicines may cause side effects. Ask your healthcare provider or pharmacist what you can expect. They may have ideas for avoiding some side effects. Sexual problems. Some antidepressants can affect your desire for sex or your ability to have an orgasm. A change in dosage or medicine often solves the problem. If you have a sexual side effect that concerns you, tell your healthcare provider. Addiction. If you ve never had a problem with drugs or alcohol, you may not have a problem with medicines used to treat anxiety disorders. But always discuss the medicines with your healthcare provider before taking them. If you have a history of addiction, you may not be able to use certain medicines used to treat anxiety disorders. Medicine interactions. Always check with your pharmacist before using any twgs-pss-bomghnm medicines (OTCs), including herbal supplements. Some OTCs may interact with your anti-anxiety medications and increase or decrease their effectiveness. 3983-5906 [employer]. [address] [place] [address], [place] [address]. All rights reserved. This information is not intended as a substitute for professional medical care. Always follow your healthcare professional's instructions. Treating Anxiety Disorders with Therapy If you have an anxiety disorder, you don t have to suffer anymore. Treatment is available. Therapy (also called counseling) is often a helpful treatment for anxiety disorders. With therapy, a specially trained professional (therapist) helps you face and learn to manage your anxiety. Therapy can be short-term or long-term depending on your needs. In some cases, medicine may also be prescribed with therapy. It may take time before you notice how much therapy is helping, but stick with it. With therapy, you can feel better. Cognitive behavioral therapy (CBT) Cognitive behavioral therapy (CBT) teaches you to manage anxiety. It does this by helping you understand how you think and act when you re anxious. Research has shown CBT to be a very effective treatment for anxiety disorders. How CBT is run is almost like a class. It involves homework and activities to build skills that teach you to cope with anxiety step by step. It can be done in a group or one-on-one, and often takes place for a set number of sessions. CBT has two main parts: Cognitive therapy helps you identify the negative, irrational thoughts that occur with your anxiety. You ll learn to replace these with more positive, realistic thoughts. Behavioral therapy helps you change how you react to anxiety. You ll learn coping skills and methods for relaxing to help you better deal with anxiety. Other forms of therapy Other therapy methods may work better for you than CBT. Or, you may move from CBT to another form of therapy as your treatment needs change. This may mean meeting with a therapist by yourself or in a group. Therapy can also help you work through problems in your life, such as drug or alcohol dependence, that may be making your anxiety worse. Getting better takes time Therapy will help you feel better and teach you skills to help manage anxiety emt intermediate. But change doesn t happen right away. It takes a commitment from you. And treatment only works if you learn to face the causes of your anxiety. So, you might feel worse before you feel better. This can sometimes make it hard to stick with it. But remember: Therapy is a very effective treatment. The results will be well worth it. Helping yourself If anxiety is wearing you down, here are some things you can do to cope: Check with your doctor and rule out any physical problems that may be causing the anxiety symptoms. If an anxiety disorder is diagnosed, seek mental healthcare. This is an illness and it can respond to treatment. Most types of anxiety disorders will respond to talk therapy and medicine. Educate yourself about anxiety disorders. Keep track of helpful online resources and books you can use during stressful periods. Try stress management techniques such as meditation. Consider online or in-person support groups. Don t fight your feelings. Anxiety feeds itself. The more you worry about it, the worse it gets. Instead, try to identify what might have triggered your anxiety. Then try to put this threat in perspective. Keep in mind that you can t control everything about a situation. Change what you can and let the rest take its course. Exercise it s a great way to relieve tension and help your body feel relaxed. Examine your life for stress, and try to find ways to reduce it. Avoid caffeine and nicotine, which can make anxiety symptoms worse. Fight the temptation to turn to alcohol or unprescribed drugs for relief. They only make things worse in the long run. 1797-9615 [employer]. [address] [place] [address], [place] [address]. All rights reserved. This information is not intended as a substitute for professional medical care. Always follow your healthcare professional's instructions. Additional Information VACCINATE! IT SAVES LIVES! Members of the community who have not yet received the COVID-19 vaccine and would like to receive it can visit one of [facility] vaccine clinics. There are many vaccine clinic locations within the [facility]. For locations and available times, please visit www.gettheshot.coronavirus.[place]. gov/. It is important to note that some COVID mobile vaccine clinics are held outdoors and may be canceled in rainy or stormy conditions. To learn more about pediatric vaccinations (ages 5-11), we invite you to visit the [facility] webpage. https://www.[facility].org/p ages/9724-Zbfsu-Ztyeghgpusf-Freq mkanhm-Dnimx-Ogoubsgzl.html To learn more about the COVID-19 vaccine, we invite you to visit the CDC website for a list of frequently asked questions. https://www.cdc.gov/coronavirus/ 2019-ncov/vaccines/faq.html [employer] Patient Portal Access Instructions: Stay connected with your healthcare team and access your personal medical information anytime with the [employer] Patient Portal. If you would like a full copy of your medical records please contact the [facility] Medical Records Department Saturday through Saturday between 8a.m. and 4:30p.m. Please follow the directions below to access the portal: 1.Access the email account you provided upon registration to the [facility].2.Look for an invitation email from [facility].3.Open the email and access the invitation link: Accept Invitation to [employer]4.Fill in the required bhatt to create your account. Sign into [email or web address] with your username and password that you created in the above steps to stay up to date. You can then view a summary of results, a summary of your visits, and the ability to download your summaries to your computer or send the information securely to a physician. Remember that your healthcare information is confidential, so carefully consider who you will allow to register on the [employer] Patient Portal for access to your information. You can also access the [employer] Patient Portal on the Hands. Simply click on Health Records under Health Data and then click on the [employer] logo. HOW TO SAFELY DISPOSE OF PRESCRIPTION MEDICATIONS Please use one of the following methods to safely dispose of your unused medications. 1.Use a drug disposal kit: the drug disposal pouch allows you to safely discard your old and unused drugs. Ask your nurse to give you one when you are discharged.2.Visit a local take-back location: Many local pharmacies and police departments have programs that collect old and unwanted prescription drugs. Call your local pharmacy or go to http://WP Fail-Safe.[employer]/6E5Ly5f to find one close to you.3.Make use of household items: Use cat litter or old coffee grounds to dispose medications if other options are not available. Mix your drugs with these household products, seal them in an airtight container and throw it into the garbage. Call [facility]: [phone] to be sure your drugs can be disposed of in this way. Some medicines may require a different approach.4.Never flush your medications down the toilet. IF YOU HAVE BEEN PRESCRIBED AN OPIOIDS FOR PAIN If you have been prescribed an opioid (such as hydrocodone, oxycodone or morphine), it is critical to understand the possible side effects and risks of opioid pain medications. Even when taken as directed, opioids can have several side effects including: Tolerance, meaning you might need to take more of a medication for the same pain relief. Nausea, vomiting and/or constipation. Sleepiness, dizziness, dry mouth, confusion, depression or itching. Physical dependence, meaning you have withdrawal symptoms when a medication is stopped ? this can develop within a few days. KNOW YOUR RESPONSIBILITIES It is important to know exactly how much and how often to take the opioid pain medications you are prescribed. Never take opioids in higher amounts or more often than prescribed. Do not combine opioids with alcohol or other drugs that cause drowsiness, such as benzodiazepines, also known as benzos, including diazepam and alprazolam, muscle relaxants or sleep aids. Never sell or share prescription opioids. This is illegal. Store opioids in a secure place and out of reach of others (including children, family, friends and visitors). The last page(s) of this document has been signed and retained as a CHART COPY Signatures Patient Education Materials Abdominal Pain Treating Anxiety Disorders with Medication Treating Anxiety Disorders with Therapy Medication Leaflets My discharge plan and instructions have been reviewed and explained to me and IMATILDE TIMOTHY understand my current condition and have read and understand these discharge instructions. I have received a written copy of the plan/instructions. If I have questions, I am aware that I should contact my doctor. 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 Multiplanar reformatted images are provided for review. Automated exposure control, iterative reconstruction, and/or weight based adjustment of the mA/kV was utilized to reduce the radiation dose to as low as reasonably achievable. COMPARISON: None. HISTORY: ORDERING SYSTEM PROVIDED HISTORY: Reason for Exam: Lower abdominal pain, hx of diverticulitis FINDINGS: Lower Chest: No focal consolidation. Organs: Superior aspect of the liver not captured on this exam, otherwise the liver, gallbladder, spleen, pancreas and adrenal glands are unremarkable. Kidneys enhance symmetrically. No hydronephrosis or hydroureter. GI/Bowel: No bowel obstruction, pneumoperitoneum, or ascites. Postsurgical changes of the small and large bowel. Nondilated appendix. Pelvis: Bladder unremarkable. Normal size prostate. Peritoneum/Retroperitoneum: Nonaneurysmal abdominal aorta. No enlarged lymph nodes. Bones/Soft Tissues: No acute osseous abnormality. Anterior abdominal postsurgical changes. IMPRESSION: No acute findings. Interpreted by: Raffaele Laguna Preliminary Report By: Raffaele Laguna Electronically signed By Raffaele Laguna Dictated Date: 09/06/2023 8:36:32 PM Prelim Date: 09/06/2023 8:41:14 PM Sign Date: 09/06/2023 8:41:14 PM Ordering Provider: SOPHIA LEA [facility] 09-06-2023 Note ORIGINAL EXAMINATION: ONE XRAY VIEW OF THE CHEST 09/06/2023 6:12 pm COMPARISON: None. HISTORY: ORDERING SYSTEM PROVIDED HISTORY: Reason for Exam: chest pain FINDINGS: Cardiomediastinal silhouette is normal in size. Costophrenic angles are sharp. No radiographic pneumothorax. No focal consolidation. Osseous structures unremarkable. IMPRESSION: No focal consolidation. Interpreted by: Raffaele Laguna Preliminary Report By: Raffaele Laguna Electronically signed By Raffaele Laguna Dictated Date: 09/06/2023 6:19:19 PM Prelim Date: 09/06/2023 6:20:15 PM Sign Date: 09/06/2023 6:20:15 PM Ordering Provider: SOPHIA LEA [facility] 09-06-2023 Note Sinus rhythm Inferior infarct, old Electronic Signature: MD IVONNE, RUTHIE ANDRADE 09/06/2023 18:06:45 [facility] 11-28-2020 Note Discharge Summary Ruthie Castillo : 1990 ADMIT DATE: 11/17/2020 DISCHARGE DATE: 11/28/20 ATTENDING PHYSICIAN: Spencer Fonseca MD CODE STATUS: Full Code DISCHARGE DIAGNOSES: Active Problems: History of colostomy reversal Resolved Problems: * No resolved hospital problems. * HOSPITAL COURSE: Ruthie Castillo is a 30 y.o. male who presented to [facility] on 11/17/2020 for loop ileostomy reversal. The patient tolerated the procedure well and was started on clear liquid diet post operatively. He began to have bowel function and his diet was advanced. At the time of discharge he was urinating independently, having regular brown bowel movements, and tolerating diet. His pain was controlled with po meds CONSULTANTS: n/a SIGNIFICANT DIAGNOSTIC STUDIES: n/a DISCHARGE MEDICATIONS: Yordy Castilloothy Jamey Home Medication Instructions WILSON:[id number] Printed on:11/28/20 1311 Medication Information acetaminophen (TYLENOL) 500 MG tablet Take 2 tablets by mouth every 8 hours gabapentin (NEURONTIN) 300 MG capsule Take 1 capsule by mouth 2 times daily for 90 days. hydrOXYzine (ATARAX) 25 MG tablet Take 50 mg by mouth every 6 hours as needed for Anxiety metroNIDAZOLE (FLAGYL) 500 MG tablet On the day prior to surgery take one tablet at 1:00pm; one tablet at 2:00pm; one tablet at 11:00pm neomycin (MYCIFRADIN) 500 MG tablet On the day prior to surgery take two tablets at 1:00pm; two tablets at 2:00pm; two tablets at 11:00pm ondansetron (ZOFRAN) 4 MG tablet Take 1 tablet by mouth every 8 hours as needed for Nausea ondansetron (ZOFRAN-ODT) 4 MG disintegrating tablet Take 1 tablet by mouth every 8 hours as needed for Nausea or Vomiting oxyCODONE (ROXICODONE) 5 MG immediate release tablet Take 1 tablet by mouth every 6 hours as needed for Pain for up to 5 days. Intended supply: 5 days. Take lowest dose possible to manage pain tiZANidine HCl (ZANAFLEX PO) Take 4 mg by mouth 3 times daily as needed DIET: DIET GENERAL; ACTIVITY: No heavy lifting. WOUND CARE: keep wound clean and dry, reinforce dressing PRN and ice to area for comfort DISPOSITION: Home Follow up with: Dr. Fonseca in 1-2 weeks PCP: Usha Frazier DO in 1-2 weeks SIGNED: Kati Hills MD 11/28/2020, 1:11 PM [facility] 10-19-2019 Hospital Discharg Stefany Merrill PA - 10/19/2019 Fill all prescriptions that you received at the previous 2 emergency department visits. Follow the prescriptions as directed. Call pain management clinic to schedule an appointment for this week. Call Dr. Coburn for a follow-up appointment this week as well. Return to the emergency department if pain gets worse, fever, shortness of breath. The following attachments cannot be sent through Care Everywhere.Crohn's Disease (Palestinian)documented in this encounter [facility] Work Phone: Evaluation + Plan note No data available for this section [facility] Evaluation note Diagnosis Right lower quadrant abdominal pain- Primary Abdominal pain, right lower quadrant documented in this encounter [facility] Work Phone: Evaluation note* Diagnosis Generalized abdominal pain- Primary Abdominal pain, generalized Essential hypertension Unspecified essential hypertension documented in this encounter [facility] Work Phone: Evaluation note* Diagnosis Right lower quadrant abdominal pain- Primary Abdominal pain, right lower quadrant Crohn's colitis, unspecified complication (HCC) documented in this encounter [facility] Work Phone: Evaluation note* Diagnosis Chronic abdominal pain- Primary Abdominal pain, unspecified site documented in this encounter [facility] Work Phone: Hospital Discharge instructions* Attachments The following attachments cannot be sent through Care Everywhere. * Abdominal Pain (Palestinian) * Crohn's Disease (Palestinian) documented in this [facility] Work Phone: Hospital Discharge instructions* Attachments The following attachments cannot be sent through Care Everywhere. * Abdominal Pain (Palestinian) documented in this [facility] Work Phone: Hospital Discharge instructions* Attachments The following attachments cannot be sent through Care Everywhere. * Chronic Pain (Palestinian) documented in this [facility] Work Phone: Hospital Discharge instructions No data available for this section [facility] Progress note No data available for this section [facility] Summary Purpose Family History No Family History Records FoundNo Family History Records FoundNo Family History Records FoundNo Family History Records FoundNo Family History Records FoundNo Family History Records FoundNo Family History Records Found No data available for this section No Family History Records FoundNo Family History Records Found No data available for this section Advance Directives Documents on File Type Date Recorded Patient 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 And 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 Representative Expl anation Advance Directives and Living Will Power of Certified Medical Coder Latest Code Status on File Code Status Date Activated Date Inactivated Comments Full Code 01/27/2019 1:18 AM 01/27/2019 1:46 PM Full Code 12/28/2018 2:55 AM 12/28/2018 2:52 PM Full Code 12/05/2018 6:02 AM 12/06/2018 2:50 PM Full Code 11/17/2018 12:41 PM 11/20/2018 5:57 PM Full Code 11/04/2018 10:16 PM 11/06/2018 5:52 PM Latest Code Status on File Code Status Date Activated Date Inactivated Comments Full Code 08/05/2019 6:09 AM Full Code 07/27/2019 6:50 PM 07/29/2019 6:40 PM Full Code 07/24/2019 9:29 AM 07/25/2019 6:15 PM Full Code 01/27/2019 1:18 AM 01/27/2019 1:46 PM Latest Code Status on File Code Status Date Activated Date Inactivated Comments Full Code 08/05/2019 6:09 AM 08/08/2019 3:10 PM Latest Code Status on File Code Status Date Activated Date Inactivated Comments Full Code 05/08/2020 11:20 PM Full Code 04/27/2020 1:32 AM 04/28/2020 2:27 PM Full Code 08/05/2019 6:09 AM 08/08/2019 3:10 PM Documents on File Type Date Recorded Patient Sales And 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 Representative Expl anation ACP-Advance Directive ACP-Power of Certified Medical Coder Latest Code Status on File Code Status Date Activated Date Inactivated Comments Full Code 06/26/2020 7:36 PM Full Code 05/08/2020 11:20 PM 05/10/2020 8:39 PM Latest Code Status on File Code Status Date Activated Date Inactivated Comments Full Code 06/26/2020 7:36 PM 07/01/2020 7:12 PM Latest Code Status on File Code Status Date Activated Date Inactivated Comments Full Code 08/09/2020 10:24 PM Full Code 08/09/2020 4:07 PM 08/09/2020 4:46 PM Full Code 08/09/2020 2:37 PM 08/09/2020 4:07 PM Full Code 06/26/2020 7:36 PM 07/01/2020 7:12 PM Latest Code Status on File Code Status Date Activated Date Inactivated Comments Full Code 08/09/2020 10:24 PM 08/15/2020 5:41 PM Latest Code Status on File Code Status Date Activated Date Inactivated Comments Full Code 04/27/2020 1:32 AM Latest Code Status on File Code Status Date Activated Date Inactivated Comments Full Code 07/24/2019 9:29 AM Latest Code Status on File Code Status Date Activated Date Inactivated Comments Full Code 07/27/2019 6:50 PM Documents on File Type Date Recorded Patient 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 * Abdominal Pain (Palestinian) documented in this encounter* Attachments The following attachments cannot be sent through Care Everywhere. * Abdominal Pain (Palestinian) * Crohn's Disease (Palestinian) documented in this encounter* Attachments The following attachments cannot be sent through Care Everywhere. * prednisone (Palestinian) * ciprofloxacin (oral) (Palestinian) * quetiapine (Palestinian) * metronidazole (Palestinian) * oxycodone (Palestinian) documented in this encounter* Instructions* Benedict Stevens DO - 08/17/2019 Increase fluids. Rest. Return if any problems or concerns. Follow-up with your doctor tomorrow. Called today for appointment * Attachments The following attachments cannot be sent through Care Everywhere. * Viral Infections (Palestinian) * Diarrhea (Palestinian) * Nausea and Vomiting (Palestinian) documented in this encounter* Instructions* Deidre Ruano MD - 07/01/2020 Discharge Instructions DO NOT TAKE HUMIRA UNTIL SEEN BY DR. FONSECA Please bring an additional stoma appliance to your follow up appointment with Dr. Fonseca so he canremove your stoma bar. Call your surgeon in 1 to 2 days to schedule a follow-up appointment in 1-2 weeks. OK to shower. OK for activity as tolerated. No heavy lifting over 10 pounds until seen by physician. Wound Care: keep wound clean and dry, reinforce dressing as needed and ice to area for comfort. If you have steri-strips, you may remove them 5 days after your surgery. If your steri-strips fall off sooner, you may leave them off. No driving while taking narcotic pain medications. Ok for regular diet. You may take an over the counter stool softener while on narcotics for constipation as needed (colace, miralax, etc). Call your Physician or return to the Emergency Room if you experience: -New or increased pain. -New or increased bleeding. -Nausea & vomitting. -Fever & chills. -Shortness of breath. -Chest pain. -Abdominal distention. * Attachments The following attachments cannot be sent through Care Everywhere. * Diverticulitis (Palestinian) documented in this encounter* Instructions* Andreina Hough MD - 07/03/2020 Avoid excessive manipulation of the new stoma site. It will be sore for a good while until he started to epithelialize and develop a strong stoma site. Follow- up with your primary care doctor or callyour surgeon or try to get ahold of the ileostomy nurse to come out and help you. * Attachments The following attachments cannot be sent through Care Everywhere. * Abdominal Pain (Palestinian) documented in this encounter* Discharge Instr - Lab* Ivania Agudelo RN - 08/11/2020 4:27 PM EST Your physician has ordered skilled home care services for you. Your home care will be provided by: [facility] [phone] * Additional Instructions* Louise Richards MD - 08/09/2020 Discharge Instructions Call your surgeon in 1 to 2 days to schedule a follow-up appointment in 1-2 weeks. OK to shower. OK for activity as tolerated. No lifting over 15 pounds. Wound Care: Continue wound VAC changes Saturday / Saturday / Saturday. If you have a drain, please record daily output amounts and bring the recordings with you to your office follow up. No driving while taking narcotic/sedating medications. You may take an over the counter stool softener while on narcotics for constipation as needed (colace, miralax, etc). Continue your diet as currently ordered. Call your Physician or return to the Emergency Room if you experience: -New or increased pain. -New or increased bleeding. -Nausea & vomitting. -Fever & chills. -Shortness of breath. -Chest pain. -Abdominal distention. * Attachments The following attachments cannot be sent through Care Everywhere. * Colostomy: Post-op (Palestinian) * Ostomy Care (Palestinian) * Ostomy Diet (Palestinian) * Abdominal Pain (Palestinian) * Wound: VAC (Vacuum-Assisted Closure) (Palestinian) documented in this encounter* Attachments The following attachments cannot be sent through Care Everywhere. * Abdominal Pain (Palestinian) * Wound Check (Palestinian) documented in this encounter* Attachments The following attachments cannot be sent through Care Everywhere. * Abdominal Pain (Palestinian) documented in this encounter* Instructions* Andreina Page APRN - CNP - 10/30/[address] Fonseca. * Attachments The following attachments cannot be sent through Care Everywhere. * Abdominal Pain (Palestinian) documented in this encounter* Instructions* Ayanna Meredith RN - 11/10/2020 PLEASE, DO NOT SMOKE OR USE TOBACCO PRODUCTS ON THE DAY OF YOUR SURGERY. THIS COULD RESULT IN YOUR SURGERY BEING CANCELED. Please bring a photo ID and insurance information TAKE the following medications the morning of your surgery: HYDROXYZINE, TIZANIDINE IF NEEDED, ONDANSETRON IF NEEDED You may take your prescription pain medications. You may take Tylenol (Acetaminophen) if needed forpain. No Motrin, Ibuprofen, or Advil 24 hours prior to surgery, or longer if instructed by your surgeon. No Aleve or Naprosyn 3 days prior to surgery, or longer if instructed by your surgeon. If you are on ASPIRIN: NO ASPIRIN FOR FIVE DAYS PRIOR TO SURGERY Additional instructions: [facility] shower kit and instructions given to patient. Please remember to use half the bottle the night before surgery and half the bottle the day of surgery. Clean sheets and clothes should be used after each use. If you have specific questions, please call your surgeon. ARRIVE AT MAIN ENTRANCE AT 0600 AM TAKE THE H ELEVATOR TO THE FIRST FLOOR, TURN LEFT OFF THE ELEVATOR GO TO THE SAME DAY SURGERY REGISTRATION DESK * Attachments The following attachments cannot be sent through Care Everywhere. * Ostomy Reversal: General Info (Palestinian) documented in this encounter* Instructions* Alanis Meeks, [facility] - 07/29/2019 prednisone Pronunciation: MATTHEW mcclain Brand: Jose, Sterapred, Sterapred 12 DAY, Sterapred DS, Sterapred DS 12 DAY What is the most important information I should know about prednisone? Prednisone treats many different conditions such as allergic disorders, skin conditions, ulcerativecolitis, arthritis, lupus, psoriasis, or breathing disorders. You should not take prednisone if you have a fungal infection anywhere in your body. Steroid medication can weaken your immune system, making it easier for you to get an infection. Avoid being near people who are sick or have infections. Do not receive a live vaccine while using prednisone. Call your doctor at once if you have shortness of breath, severe pain in your upper stomach, bloodyor tarry stools, severe depression, changes in personality or behavior, vision problems, or eye pain. You should not stop using prednisone suddenly. Follow your doctor's instructions about tapering your dose. What is prednisone? Prednisone is a steroid. Prednisone prevents the release of substances in the body that cause inflammation. Prednisone also suppresses the immune system. Prednisone is used as an anti-inflammatory or an immunosuppressant medication. Prednisone treats many different conditions such as allergic disorders, skin conditions, ulcerative colitis, arthritis, lupus, psoriasis, or breathing disorders. Prednisone may also be used for purposes not listed in this medication guide. What should I discuss with my healthcare provider before taking prednisone? You should not use this medication if you are allergic to prednisone, or if you have a fungal infection anywhere in your body. Steroid medication can weaken your immune system, making it easier for you to get an infection or worsening an infection you already have or have recently had. Tell your doctor about any illness or infection you have had within the past several weeks. To make sure prednisone is safe for you, tell your doctor if you have: any illness that causes diarrhea; liver disease (such as cirrhosis); kidney disease; heart disease, high blood pressure, low levels of potassium in your blood; a thyroid disorder; diabetes; a history of malaria; tuberculosis; osteoporosis; glaucoma, cataracts, or herpes infection of the eyes; stomach ulcers, ulcerative colitis, or a history of stomach bleeding; a muscle disorder such as myasthenia gravis; or depression or mental illness. Long-term use of steroids may lead to bone loss (osteoporosis), especially if you smoke, if you do not exercise, if you do not get enough vitamin D or calcium in your diet, or if you have a family history of osteoporosis. Talk with your doctor about your risk of osteoporosis. Prednisone can cause low weight or defects if you take the medicine during your first trimester. Tell your doctor if you are or plan to become while using this medication. Use effective control. Prednisone can pass into breast milk and may harm a nursing baby. Tell your doctor if you are breast-feeding a baby. Steroids can affect growth in children. Talk with your doctor if you think your child is not growing at a normal rate while using this medication. How should I take prednisone? Follow all directions on your prescription label. Your doctor may occasionally change your dose to make sure you get the best results. Do not take this medicine in larger or smaller amounts or for longer than recommended. Take with food. Your dosage needs may change if you have any unusual stress such as a serious illness, fever or infection, or if you have surgery or a medical emergency. Do not change your medication dose or schedule without your doctor's advice. Measure liquid medicine with a special dose-measuring spoon or medicine cup. If you do not have a dose-measuring device, ask your pharmacist for one. Do not crush, chew, or break a delayed-release tablet. Swallow it whole. While using prednisone, you may need frequent blood tests at your doctor's office. Your blood pressure may also need to be checked. This medication can cause unusual results with certain medical tests. Tell any doctor who treats you that you are using prednisone. You should not stop using prednisone suddenly. Follow your doctor's instructions about tapering your dose. Wear a medical alert tag or carry an ID card stating that you take prednisone. Any medical care provider who treats you should know that you are using a steroid. Store at room temperature away from moisture and heat. What happens if I miss a dose? Take the missed dose as soon as you remember. Skip the missed dose if it is almost time for your next scheduled dose. Do not take extra medicine to make up the missed dose. What happens if I overdose? Seek emergency medical attention or call the Poison Help line at . An overdose of prednisone is not expected to produce life threatening symptoms. However, assisted use of high steroid doses can lead to symptoms such as thinning skin, easy bruising, changes in the shape or location of body fat (especially in your face, neck, back, and waist), increased acne or facial hair, menstrual problems, impotence, or loss of interest in sex. What should I avoid while taking prednisone? Avoid being near people who are sick or have infections. Call your doctor for preventive treatment if you are exposed to chicken pox or measles. These conditions can be serious or even fatal in people who are using a steroid. Do not receive a live vaccine while using prednisone. Prednisone may increase your risk of harmful effects from a live vaccine. Live vaccines include measles, mumps, rubella (MMR), rotavirus, typhoid, yellow fever, varicella (chickenpox), zoster (shingles), and nasal flu (influenza) vaccine. Avoid drinking alcohol while you are taking prednisone. What are the possible side effects of prednisone? Get emergency medical help if you have any of these signs of an allergic reaction: hives; difficultbreathing; swelling of your face, lips, tongue, or throat. Call your doctor at once if you have: blurred vision, eye pain, or seeing halos around lights; swelling, rapid weight gain, feeling short of breath; severe depression, feelings of extreme happiness or sadness, changes in personality or behavior, seizure (convulsions); bloody or tarry stools, coughing up blood; pancreatitis (severe pain in your upper stomach spreading to your back, nausea and vomiting, fast heart rate); low potassium (confusion, uneven heart rate, extreme thirst, increased urination, leg discomfort, muscle weakness or limp feeling); or dangerously high blood pressure (severe headache, blurred vision, buzzing in your ears, anxiety, confusion, chest pain, shortness of breath, uneven heartbeats, seizure). Other common side effects may include: sleep problems (insomnia), mood changes; increased appetite, gradual weight gain; acne, increased sweating, dry skin, thinning skin, bruising or discoloration; slow wound healing; headache, dizziness, spinning sensation; nausea, stomach pain, bloating; or changes in the shape or location of body fat (especially in your arms, legs, face, neck, breasts, and waist). This is not a complete list of side effects and others may occur. Call your doctor for medical advice about side effects. You may report side effects to FDA at 4-861-DHB-5611. What other drugs will affect prednisone? Many drugs can interact with prednisone. Not all possible interactions are listed here. Tell your doctor about all your medications and any you start or stop using during treatment with prednisone, especially: amphotericin B; cyclosporine; digoxin, digitalis; [place]'s wort; an antibiotic such as clarithromycin or telithromycin; antifungal medication such as itraconazole, ketoconazole, posaconazole, voriconazole; control pills and other hormones; a blood thinner such as warfarin, Coumadin; a diuretic or water pill ; the hepatitis C medications boceprevir or telaprevir; HIV or AIDS medicine such as atazanavir, delavirdine, efavirenz, fosamprenavir, indinavir, nelfinavir, nevirapine, ritonavir, saquinavir; insulin or diabetes medications you take by mouth; a non-steroidal anti-inflammatory drug (NSAID) such as aspirin, ibuprofen (Advil, Motrin), naproxen(Aleve), celecoxib, diclofenac, indomethacin, meloxicam, and others; seizure medications such as carbamazepine, fosphenytoin, oxcarbazepine, phenobarbital, phenytoin, primidone; or the tuberculosis medications isoniazid, rifabutin, rifapentine, or rifampin. This list is not complete and many other drugs can interact with prednisone. This includes prescription and [id number] medicines, vitamins, and herbal products. Give a list of all your medicines to any healthcare provider who treats you. Where can I get more information? Your pharmacist can provide more information about prednisone. Remember, keep this and all other medicines out of the reach of children, never share your medicines with others, and use this medication only for the indication prescribed. Every effort has been made to ensure that the information provided by [employer]. ('[employer]') is accurate, up-to-date, and complete, but no guarantee is made to that effect. Drug information contained herein may be time sensitive. [employer] information has been compiled for use by healthcare practitioners and consumers in the [place] and therefore [employer] does not warrant that uses outside of the [place] are appropriate, unless specifically indicated otherwise. [employer] drug information does not endorse drugs, diagnose patients or recommend therapy. [employer] drug information isan informational resource designed to assist licensed healthcare practitioners in caring for their p atients and/or to serve consumers viewing this service as a supplement to, and not a substitute for, the expertise, skill, knowledge and judgment of healthcare practitioners. The absence of a warningfor a given drug or drug combination in no way should be construed to indicate that the drug or drug combination is safe, effective or appropriate for any given patient. [employer] does not assume any responsibility for any aspect of healthcare administered with the aid of information [employer] provides. The information contained herein is not intended to cover all possible uses, directions, precautions, warnings, drug interactions, allergic reactions, or adverse effects. If you have questions about the drugs you are taking, check with your doctor, nurse or pharmacist. Copyright [id number] [employer]. Version: 9.01. Revision date: 11/12/2012. Care instructions adapted under license by [employer]. If you have questions about a medical condition or this instruction, always ask your healthcare professional. [employer] disclaims any warranty or liability for your use of this information. documented in this encounter Assessments Diagnosis Generalized abdominal pain- Primary Abdominal pain, generalized Diagnosis Abdominal pain, right lower quadrant- Primary Crohn's disease of small intestine without complication (HCC) Regional enteritis of small intestine Diagnosis Diverticulitis- Primary Diverticulitis of colon (without mention of hemorrhage) IBD (inflammatory bowel disease) Other and unspecified noninfectious gastroenteritis and colitis Abdominal pain Abdominal pain, unspecified site Acute Crohn's disease without complication (HCC) Bipolar disorder (HCC) Bipolar disorder, unspecified Obesity (BMI 30.0-34.9) Obesity, unspecified Anxiety Anxiety state, unspecified History of posttraumatic stress disorder (PTSD) Diagnosis Diarrhea, unspecified type- Primary Non-intractable vomiting with nausea, unspecified vomiting type Viral syndrome Unspecified viral infection, in conditions classified elsewhere and of unspecified site Diagnosis Intractable nausea and vomiting Persistent vomiting Generalized abdominal pain Abdominal pain, generalized Acute Crohn's disease with fistula (HCC) Diagnosis Diverticulitis Diverticulitis of colon (without mention of hemorrhage) Intra-abdominal abscess (HCC) Peritoneal abscess Left lower quadrant abdominal pain Diagnosis Lower abdominal pain Abdominal pain, other specified site Diagnosis Colon perforation (HCC) Perforation of intestine Severe malnutrition (HCC) Nutritional marasmus Diagnosis Encounter for post surgical wound check Diagnosis Right upper quadrant abdominal pain- Primary Abdominal pain, right upper quadrant Diagnosis Generalized abdominal pain- Primary Abdominal pain, generalized Diagnosis Acute Crohn's disease with fistula (HCC) Diagnosis Crohn's colitis, other complication (HCC)- Primary PTSD (post-traumatic stress disorder) Posttraumatic stress disorder 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 Crohn's disease (HCC) Regional enteritis of unspecified site Bipolar disorder (HCC) Bipolar disorder, unspecified Intermittent explosive disorder in adult Diagnosis Colon perforation (HCC) Perforation of intestine Diagnosis Acute Crohn's disease, other complication (HCC) History of Present Illness * Andreina Carr RN - 08/08/2019 1:01 PM EST Reviewed all discharge instructions with pt, hep lock removed, pharmacist spoke with pt, I walked with him to the pharmacy on 2nd floor for his medications, pt discharged to home * Rupa Frederick APRN - SLIP OPERATOR - 08/07/2019 12:29 PM EST Department of Psychiatry Consult Note Reason for Consult/chief complaint: I just get so I don't want to be around anyone. Consulting practitioner: Rupa Frederick APRN IDENTIFYING DATA: The patient is a 29 y.o. male with a psych history of Bipolar disorder, ADHD, PTSD, IED, depressionwho presents with colitis History Obtained From: patient, electronic medical record HISTORY OF PRESENT ILLNESS: Pt was seen for full consult by Dr. Esposito, requested that he be seen in reference to possibility of medication to help manage anxiety and depression symptoms. Pt states that he generally feels well at home, but when he gets flare ups with his colitis he becomes depressed and anxious, struggles to function with these symptoms, and wants to get help to maintain a stable mood. Pt experiences depression as emotional flattening, irritability, social withdrawal, feelings of guilt. Experiences anxiety as racing heart rate, poor focus, irritability, trouble concentrating. Pt has had prior diagnosis of bipolar disorder, has experienced samuel symptoms of mood swings, persistent irritability, racing thoughts, hypersexuality, impulsivity. Sleep is intermittent, on good days gets 5-6 hours, on bad days 2-3. Denies current SI, denies AH/VH. Generally does not experience paranoia but does on occasion have persecutory thoughts when he is in an elevated state. Has a his tory of violent outbursts, feels that being in [facility] changed him for the better and helped him learn to channel his anger in more appropriate ways. Appetite is good, does have occasional binge eating episodes at home, feels bored and in response eats until he is uncomfortably full, feels that he has no control during these episodes and can't stop eating. Past Psychiatric History: Bipolar disorder, ADHD, PTSD, IED, depression Had one prior inpatient psychiatric admission, and was incarcerated from ages [age] due to violent outbursts and was treated there for bipolar D/O and IED Family Psychiatric History: Father had history of violent behavior, mother with history of substance use issues Drug and Alcohol History: Denies personal history of drug and alcohol misuse. Does have medical marijuana which he smokes on a daily basis for his anxiety symptoms. Social History: Lives in a home which he owns with his ( 6 years, together 9). Has a large social support network and feels that he has a lot of support outside of hospital. Has good relationship with mom and brother, has a sister whom he is not in touch with anymore. 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 PAST MEDICAL HISTORY Diagnosis Date ADHD Bipolar disorder (HCC) 11/29/2009 Crohn's disease (HCC) Diverticulitis GERD (gastroesophageal reflux disease) IBD (inflammatory bowel disease) 2019 Intermittent explosive disorder Multiple personality disorder (HCC) PTSD (post-traumatic stress disorder) Spermatocele 07/12/2014 PAST SURGICAL HISTORY Procedure Laterality Date COLONOSCOPY 11/12/2018 at [facility] , normal .colonoscopy, by Dr Raffaele Cordero COLONOSCOPY 2015 At [place] , per pt normal colonscopy FOOT SURGERY 2008 TESTICLE SURGERY 2013 Allergies: Bee venom; Beta adrenergic blockers; Dextromethorphan hbr; Mushroom extract complex; Nyquil hbp cold & flu [[id number]]; Dextromethorphan; and Poison mimi extract Medications Prior to Admission: Medications Prior to Admission: adalimumab (HUMIRA) 40 MG/0.8ML injection, Inject 3.2 ML subcutaneously on day 1 then 80 mg on day 15 then 40mg on day 29 budesonide (ENTOCORT EC) 3 MG extended release capsule, Take 9 mg by mouth every morning lisinopril (PRINIVIL;ZESTRIL) 10 MG tablet, Take 10 mg by mouth daily acetaminophen (TYLENOL) 500 MG tablet, Take 2,000 mg by mouth 2 times daily omeprazole (PRILOSEC) 20 MG delayed release capsule, Take 1 capsule by mouth daily hydrOXYzine (ATARAX) 25 MG tablet, Take 25 mg by mouth 3 times daily as needed for Anxiety Current Medications Current Facility-Administered Medications: HYDROmorphone (DILAUDID) injection 0.5 mg, 0.5 mg, Intravenous, Q4H PRN oxyCODONE (ROXICODONE) immediate release tablet 5 mg, 5 mg, Oral, Q4H PRN acetaminophen (TYLENOL) tablet 1,000 mg, 1,000 mg, Oral, 3 times per day sodium chloride flush 0.9 % injection 10 mL, 10 mL, Intravenous, 2 times per day sodium chloride flush 0.9 % injection 10 mL, 10 mL, Intravenous, PRN ondansetron (ZOFRAN) injection 4 mg, 4 mg, Intravenous, Q6H PRN enoxaparin (LOVENOX) injection 40 mg, 40 mg, Subcutaneous, Daily 0.9 % sodium chloride infusion, , Intravenous, Continuous piperacillin-tazobactam (ZOSYN) 3.375 g in dextrose 50 mL IVPB extended infusion (premix), 3.375 g,Intravenous, Q8H nicotine (NICODERM CQ) 21 MG/24HR 1 patch, 1 patch, Transdermal, Daily dicyclomine (BENTYL) tablet 20 mg, 20 mg, Oral, Q6H PRN lisinopril (PRINIVIL;ZESTRIL) tablet 10 mg, 10 mg, Oral, Daily pantoprazole (PROTONIX) tablet 40 mg, 40 mg, Oral, QAM AC hydrOXYzine (VISTARIL) capsule 25 mg, 25 mg, Oral, TID PRN methylPREDNISolone sodium (SOLU-MEDROL) injection 60 mg, 60 mg, Intravenous, Daily melatonin tablet 3 mg, 3 mg, Oral, Nightly PRN Family History: Problem Relation Age of Onset Coronary Art Dis Mother Hypertension Mother Stroke Mother Inflam Bowel Dis Father Hypertension Father Crohn's Disease Father Crohn's Disease Brother Colon Cancer Maternal Grandfather Inflam Bowel Dis Paternal Aunt REVIEW OF SYSTEMS: Medical Review Of Systems: ROS: Review of Systems Constitutional: Negative for activity change, appetite change, fatigue and unexpected weight change. HENT: Negative for trouble swallowing. Eyes: Negative for visual disturbance. Respiratory: Negative for chest tightness and shortness of breath. Cardiovascular: Positive for palpitations. Negative for chest pain and leg swelling. With anxiety attacks experiences palpitations Gastrointestinal: Positive for abdominal pain and diarrhea. Negative for constipation, nausea and vomiting. Musculoskeletal: Positive for back pain. Negative for gait problem. Skin: Negative for color change, pallor and rash. Neurological: Negative for dizziness, tremors, seizures, speech difficulty and light-headedness. Psychiatric/Behavioral: Positive for agitation, decreased concentration, dysphoric mood and sleep disturbance. Negative for behavioral problems, confusion, hallucinations, self-injury and suicidal ideas. The patient is nervous/anxious. The patient is not hyperactive. Psychiatric Review Of Systems: See HPI PHYSICAL EXAM: Vitals: BP 118/79 Pulse 60 Temp 96.2 F (35.7 C) (Temporal) Resp 16 Wt 286 lb 8 oz (130 kg) SpO2 95% BMI 38.86 kg/m Physical Examination: Physical Exam Constitutional: He is oriented to person, place, and time. He appears well- developed and well-nourished. No distress. HENT: Head: Normocephalic and atraumatic. Eyes: Pupils are equal, round, and reactive to light. Right eye exhibits no discharge. Left eye exhibits no discharge. Neck: Normal range of motion. Cardiovascular: Normal rate. Pulmonary/Chest: Effort normal. No respiratory distress. Neurological: He is alert and oriented to person, place, and time. He exhibits normal muscle tone. Coordination normal. Skin: Skin is warm and dry. No rash noted. He is not diaphoretic. No erythema. No pallor. Psychiatric: See MSE Vitals reviewed. MENTAL STATUS EXAM Mental Status Exam: Appearance - Patient is well nourished, well developed, well groomed and in no acute distress, appearing stated age, smiling Demeanor - Cooperative and Good eye contact Activity - normal Eye Contact - good Speech - appropriate Mood - anxious Affect - appropriate Thought Process - logical connections Thought Content - normal Evidence of paranoia / delusions: no Evidence of suicidal and / or homicidal ideations: no Judgement - good Insight - good Orientation / level of consciousness - A & O x3 Attention / concentration - Intact Memory and cognition - intact Gait - Not assessed Language - fluent and spontaneous without dysarthric features Fund of Knowledge - good DATA: Results for RUTHIE CASTILLO ( ) as of 08/07/2019 12:48 Ref. Range 08/07/2019 05:08 Sodium Latest Ref Range: 135 - 145 mmol/L 141 Potassium Latest Ref Range: 3.5 - 5.1 mmol/L 4.1 Chloride Latest Ref Range: 98 - 107 mmol/L 107 CO2 Latest Ref Range: 22 - 30 mmol/L 26 BUN Latest Ref Range: 7 - 20 mg/dL 16 Creatinine Latest Ref Range: 0.52 - 1.25 mg/dL 0.89 Anion Gap Latest Units: NA 8 eGFR Latest Ref Range: >60 mL/min >60.0 EGFR IF NonAfrican Syrian Latest Ref Range: >60 mL/min >60.0 Glucose Latest Ref Range: 70 - 100 mg/dL 97 Calcium Latest Ref Range: 8.4 - 10.4 mg/dL 9.6 Total Protein Latest Ref Range: 6.3 - 8.2 g/dL 7.8 CRP Latest Ref Range: 0.0 - 6.0 mg/L 6.8 (H) Albumin Latest Ref Range: 3.5 - 5.0 g/dL 4.2 Alk Phos Latest Ref Range: 38 - 126 U/L 59 ALT Latest Ref Range: 13 - 69 U/L 46 AST Latest Ref Range: 15 - 46 U/L 29 Bilirubin Latest Ref Range: 0.2 - 1.3 mg/dL 0.9 WBC Latest Ref Range: 3.6 - 10.7 10*3/uL 15.8 (H) RBC Latest Ref Range: 4.40 - 5.90 10*6/uL 5.13 Hemoglobin Quant Latest Ref Range: 13.0 - 18.0 g/dL 15.0 Hematocrit Latest Ref Range: 40.0 - 52.0 % 44.8 MCV Latest Ref Range: 80.0 - 98.0 fL 87.3 MCH Latest Ref Range: 26.0 - 34.0 pg 29.3 MCHC Latest Ref Range: 32.0 - 36.0 % 33.5 MPV Latest Ref Range: 7.4 - 10.4 fL 8.7 RDW Latest Ref Range: 11.5 - 14.5 % 14.2 Platelet Count Latest Ref Range: 140 - 440 10*3/uL 275 Lymphocyte % Latest Ref Range: 20.0 - 40.0 % 16.1 (L) Absolute Bath # Latest Ref Range: 0.0 - 0.8 10*3/uL 0.8 Basophils Absolute Latest Ref Range: 0.0 - 0.2 10*3/uL 0.0 Absolute Neut # Latest Ref Range: 1.8 - 7.0 10*3/uL 12.4 (H) Granulocytes % Latest Ref Range: 40.0 - 80.0 % 78.2 Absolute Lymph # Latest Ref Range: 1.0 - 4.3 10*3/uL 2.6 Monocytes Latest Ref Range: 2.0 - 10.0 % 5.2 Eosinophils Latest Ref Range: 1.0 - 6.0 % 0.2 (L) Absolute Eos # Latest Ref Range: 0.0 - 0.5 10*3/uL 0.0 Basophils Latest Ref Range: 0.0 - 2.0 % 0.3 Sed Rate Latest Ref Range: 0 - 10 mm/h 27 (H) Assessment: Bipolar disorder, current episode depressed H/O intermittent explosive disorder, PTSD, ADHD Psychological factors affecting other medical condition PLAN: Discussed case with Dr. Lei. Pt is interested in pursuing medication regimen for the treatment of depression and mood stabilization. Decision made to initiate treatment with quetiapine 25 mg PO QHS.Discussed risks vs benefits of medications, pt agreeable and motivated to try a medication regimen for mood stabilization. As pt has had a history of dystonic reactions with unknown antipsychotics asa child will also order benztropine as needed for muscle stiffness should the patient experience this side effect. Pt will need follow up on discharge, counseling center of [facility] would be a good option as he has had care there in the past and is amenable to following up with them. Will follow as able. Please call bell person psychiatrist if emergent needs arise. * Jennyfer, LilianeОЛЕГ Mclean CNP - 08/07/2019 12:13 PM EST 08/07/2019 Referring Physician: Bulmaro Jerez MD Subjective: We have been asked to see this 29 y.o. male for complex pain management of sigmoid diverticulitis vs Crohn's flare with colovesical fistula. Consult order states Pt interested in non opoid options. On arrival, pt lying in bed. Patient states that the current pain medication he is receiving is helping to better control his pain, however patient did state that he ate a regular meal and now his abdominal pain is increased. Has a rice pack on his abdomen to help with pain. Patient was also recently started on Jazmín. Pain Severity: moderate Pain Frequency: constant Pain Location: [place] Pain Radiation: nonradiating Pain Quality: sharp Adverse effect to opioids: none Sedation score: 1: Awake and alert Timing: Constant Onset: : ChronicPain. Aggravating Factors: eating Alleviating Factors: Pain medications Last BM was: + BM, + Flatus. Diarrhea 11-12x daily. Social History Tobacco Use Smoking Status Current Every Day Smoker Packs/day: 0.50 Start date: 11/18/2008 Smokeless Tobacco Never Used Social History Substance and Sexual Activity Alcohol Use Not Currently Comment: Last drinking was on 07/02/2018. no he ETOH Social History Substance and Sexual Activity Drug Use Yes Types: Marijuana Comment: medical marijuana rx-daily Smoking: Current, counseled on cessation ETOH: denies Illicit Drugs: Marijuana smokes daily. Pt states he is in the process of getting a legal medical marijuana card Prescription Drug Abuse: Denies Pain Management: n/a The patient's medical history and physical assessment, medications, allergies, patient's current medical condition, and labs were reviewed as part ofthis consultation. [x] Patient's Medications have been reviewed. [x] Patient's OARRS report (PDMP) have been reviewed. 07/22/2019 2 07/22/2019 Hydrocodone-Acetamin 5-325 Mg 10.00 2 05/12/2019 2 05/11/2019 Tramadol Hcl 50 Mg Tablet 15.00 5 04/17/2019 2 04/17/2019 Tramadol Hcl 50 Mg Tablet 15.00 3 01/27/2019 2 01/26/2019 Hydrocodone-Acetamin 5-325 Mg12.00 3 12/25/2018 1 12/25/2018 Oxycodone-Acetaminophen 5-325 8.00 2 Objective Findings: Weight: 286 lb 8 oz (130 kg) BMI (Calculated): 0 Vital signs: Blood pressure 118/79, pulse 60, temperature 96.2 F (35.7 C), temperature source Temporal, resp. rate 16, weight 286 lb 8 oz (130 kg), SpO2 95 %. Lab Results Component Value Date/Time HGB 15.0 08/07/2019 05:08 AM HCT 44.8 08/07/2019 05:08 AM PLT 275 08/07/2019 05:08 AM WBC 15.8 (H) 08/07/2019 05:08 AM WBC 7.8 01/30/2016 03:08 PM PROTIME 10.4 11/17/2018 12:46 PM INR 1.0 11/17/2018 12:46 PM NA 141 08/07/2019 05:08 AM K 4.1 08/07/2019 05:08 AM BUN 16 08/07/2019 05:08 AM CREATININE 0.89 08/07/2019 05:08 AM GLUCOSE 97 08/07/2019 05:08 AM Allergies: Bee venom; Beta adrenergic blockers; Dextromethorphan hbr; Mushroom extract complex; Nyquil hbp cold & flu [[id number]]; Dextromethorphan; and Poison mimi extract Past Medical History: Diagnosis Date ADHD Bipolar disorder (HCC) 11/29/2009 Crohn's disease (HCC) Diverticulitis GERD (gastroesophageal reflux disease) IBD (inflammatory bowel disease) 2019 Intermittent explosive disorder Multiple personality disorder (HCC) PTSD (post-traumatic stress disorder) Spermatocele 07/12/2014 Past Surgical History: Procedure Laterality Date COLONOSCOPY 11/12/2018 at [facility] , normal .colonoscopy, by Dr Raffaele Cordero COLONOSCOPY 2015 At [place] , per pt normal colonscopy FOOT SURGERY 2008 TESTICLE SURGERY 2013 Family History Problem Relation Age of Onset Coronary Art Dis Mother Hypertension Mother Stroke Mother Inflam Bowel Dis Father Hypertension Father Crohn's Disease Father Crohn's Disease Brother Colon Cancer Maternal Grandfather Inflam Bowel Dis Paternal Aunt Patient Active Problem List Diagnosis Diverticulitis IBD (inflammatory bowel disease) Class 2 obesity due to excess calories in adult Obesity (BMI 30.0-34.9) Acute Crohn's disease without complication (HCC) Lactic acidosis Upper abdominal pain Bloody diarrhea Abnormal CT scan, small bowel Current use of steroid medication Crohn's disease of small intestine with other complication (HCC) Crohn's colitis, with rectal bleeding (HCC) Crohn's colitis, unspecified complication (HCC) Acute Crohn's disease, without complications (HCC) Abdominal pain Crohn's colitis, other complication (HCC) PTSD (post-traumatic stress disorder) Multiple personality disorder (HCC) Crohn's disease (HCC) Bipolar disorder (HCC) Intermittent explosive disorder in adult Acute Crohn's disease, other complication (HCC) Imaging of gastrointestinal tract abnormal Diarrhea Sigmoid diverticulosis Smoker Gastroesophageal reflux disease Review of Systems Respiratory: Negative for shortness of breath. Cardiovascular: Negative for chest pain. Gastrointestinal: Positive for abdominal pain and diarrhea (chronic). Neurological: Negative for dizziness and light-headedness. Psychiatric/Behavioral: Negative for agitation. Physical Exam Constitutional: He is oriented to person, place, and time. He appears well- developed and well-nourished. No distress. Cardiovascular: Normal heart sounds. Pulmonary/Chest: Breath sounds normal. Abdominal: Soft. There is tenderness (below belly button). Neurological: He is alert and oriented to person, place, and time. Skin: Skin is warm and dry. Nursing note and vitals reviewed. ASSISTANT WOMEN'S TENNIS COACH: None Pain Management Adjuvants: PRN Morphine 2-4 IVP q3h Assessment: 1. Acute on chronic abd pain 2/2 Crohn's flare vs diverticulitis: workup in progress Pain Management Plan: ? Continue Acetaminophen 1000 mg po TID scheduled ATC. Liver enzymes WNL, last checked: 08/07/19. ? Continue Oxycodone 5 - 10 mg po q4h prn moderate to severe breakthrough pain. ? Continue Hydromorphone 0.25 mg - 0.5 mg IVP q4h prn moderate to severe breakthrough pain. Please utilize oral medications first. ? Continue to recommend lidocaine patches x3, cut and place as needed. ? Recommend heating pad. Pt feels that this helps his pain greatly at home. ? Steroids and biologics per gastroenterology. ? Pt not a good candidate for ketamine: history of severe PTSD, bipolar, ADHD. ? Patient reports better pain control with the above changes. We will sign off. Thank you for allowing us to participate in the care of your patient. Plan discussed with patient who appears to understand and agrees. The Acute Pain Service is available by pager #[phone] Saturday-Saturday [phone]. For questions oracute issues after hours, please contact hospital control board operator for name and pager number of the Pain ManagementProvider VETERINARY TECHNICIAN ASSISTANT. [facility] Pain Management has agreed to see our patients after they are discharged. Patients should be instructed to call [phone]. Please ask patient to sign a medical release andsend medical records to [facility].They will contact the patient with an appointment time. * Shona Oliver - 08/07/2019 10:21 AM EST Nutrition rescreen completed. Chart reviewed. Patient to be monitored and followed by the diet rv technician. KATHLEEN Sewell * Tigist Chamorro MD - 08/07/2019 9:53 AM EST Department of Internal Medicine Gastroenterology Attending Progress Note SUBJECTIVE: Feeling much improved today, pain is well-controlled with pain medication changes made yesterday. Reports 1 loose stool this AM. Continues to attest to ongoing burning with urination. Appetite is much improved and was eating a full breakfast this morning. No nausea, vomiting, fever, chills. Medications Current Facility-Administered Medications: HYDROmorphone (DILAUDID) injection 0.5 mg, 0.5 mg, Intravenous, Q4H PRN oxyCODONE (ROXICODONE) immediate release tablet 5 mg, 5 mg, Oral, Q4H PRN acetaminophen (TYLENOL) tablet 1,000 mg, 1,000 mg, Oral, 3 times per day sodium chloride flush 0.9 % injection 10 mL, 10 mL, Intravenous, 2 times per day sodium chloride flush 0.9 % injection 10 mL, 10 mL, Intravenous, PRN ondansetron (ZOFRAN) injection 4 mg, 4 mg, Intravenous, Q6H PRN enoxaparin (LOVENOX) injection 40 mg, 40 mg, Subcutaneous, Daily 0.9 % sodium chloride infusion, , Intravenous, Continuous piperacillin-tazobactam (ZOSYN) 3.375 g in dextrose 50 mL IVPB extended infusion (premix), 3.375 g,Intravenous, Q8H nicotine (NICODERM CQ) 21 MG/24HR 1 patch, 1 patch, Transdermal, Daily dicyclomine (BENTYL) tablet 20 mg, 20 mg, Oral, Q6H PRN lisinopril (PRINIVIL;ZESTRIL) tablet 10 mg, 10 mg, Oral, Daily pantoprazole (PROTONIX) tablet 40 mg, 40 mg, Oral, QAM AC hydrOXYzine (VISTARIL) capsule 25 mg, 25 mg, Oral, TID PRN methylPREDNISolone sodium (SOLU-MEDROL) injection 60 mg, 60 mg, Intravenous, Daily melatonin tablet 3 mg, 3 mg, Oral, Nightly PRN OBJECTIVE VITALS: BP 118/79 Pulse 60 Temp 96.2 F (35.7 C) (Temporal) Resp 16 Wt 286 lb 8 oz (130 kg) SpO2 95% BMI 38.86 kg/m TEMPERATURE: Current - Temp: 96.2 F (35.7 C); Max - Temp Av.7 F (35.9 C) Min: 96.2 F (35.7 C) Max: 97.2 F (36.2 C) RESPIRATIONS RANGE: Resp Av Min: 16 Max: 20 PULSE RANGE: Pulse Av Min: 53 Max: 82 BLOOD PRESSURE RANGE: Systolic (24hrs), Av , Min:98 , Max:136 ; Diastolic (24hrs), Av, Min:47, Max:79 PULSE OXIMETRY RANGE: SpO2 Av.5 % Min: 95 % Max: 96 % 24HR INTAKE/OUTPUT: No intake or output data in the 24 hours ending 08/07/19 1155 GENERAL: Pleasant and NAD. Eating breakfast in bed. HEENT: NCAT, PERRLA, EOMI, Scleral anicteric. Oropharhynx clear with no erythema or exudate. Neck supple, no cervical LAD or thyromegaly. CV: RRR, NL S1/S2, no murmurs. Distal pulses palpable and equal b/l. LUNGS: CTA b/l. Normal percussion and palpation. No W/R/R. ABD: + BS, soft, minimally TTP in lower quadrants and non-distended. No hepatosplenomegaly. No massfelt. No rebound or guarding. EXT: No C/C/E. No muscle atrophy. Skin: No skin lesion or breakdown. Lymph: No cervical or supraclavicular LAD. Musculoskeletal: Strength 5/5 in all exts. No joint tenderness or effusions in LEs. Neurologic: A&O x 3, CN II-XII grossly intact. DTR +2 symmetric in patella. Normal cerebellar fxn. Non-focal. Data Recent blood work, radiologic study and endoscopic study were reviewed with the patient. CBC: Recent Labs 08/06/19 0347 08/07/19 0508 WBC 16.0* 15.8* RBC 5.57 5.13 HGB 16.0 15.0 HCT 49.0 44.8 MCV 88.0 87.3 MCH 28.7 29.3 MCHC 32.7 33.5 RDW 14.5 14.2 PLT 282 275 MPV 9.2 8.7 CMP: Recent Labs 08/06/19 0347 08/07/19 0508 NA 137 141 K 4.4 4.1 CL 103 107 CO2 20* 26 BUN 14 16 CREATININE 0.77 0.89 GLUCOSE 143* 97 CALCIUM 10.0 9.6 PROT 8.9* 7.8 LABALBU 4.7 4.2 BILITOT 1.1 0.9 ALKPHOS 71 59 AST 36 29 ALT 49 46 ESR/CRP: Lab Results Component Value Date SEDRATE 27 08/07/2019 CRP: 6.8 Radiology Review: All images from [place] [facility] have been loaded in Epiphyte CT A/P 05/12/19 IMPRESSION: Evidence of adhesions between distal small bowel and sigmoid colon in the midline in the pelvis and an area of previous inflammation. No acute inflammatory changes are identified currently. CT abd/pelvis w/ contrast 07/24/19 at [place]: sigmoid abscess with some free air ( microperforation) and enterovesicular fistula, some diverticula in sigmoids (no signs of inflammation in the ileum). [place] radiologist thought it was related to diverticulitis, radiologist here thought that there was 3 enterovesicular fistulas (2 from large bowel and 1 from small bowel) in addition to above MRI Abdomen W WO contrast (07/25/19) IMPRESSION: Region of abnormal signal with spiculated-type configuration involving a distal small bowel loop along with a portion of the sigmoid colon and adjacent bladder and the lower mid pelvis, corresponding to focal region of involvement of Crohn's disease. The fistula into the bladder is not readily appreciated, but there is likely a thin communication. CT A/P W contrast (08/05/19) - from [place] [facility] IMPRESSION:Sigmoid diverticulitis and possible sigmoid vesicle fistula ASSESSMENT AND PLAN 1) Abdominal Pain 2/2 Crohn's Flare vs. Diverticulitis - OK for discharge home from GI standpoint. Would recommend switching to PO and discharge followingrecommendations: - ciprofloxacin 500 mg PO twice daily for 7 days - metronidazole 500 mg PO every 6 hours for 7 days - Prednisone 40 mg daily x 4 weeks, then; - Prednisone taper; decrease by 10 mg q weekly - pain control per pain management, will need plan for pain control for when he goes home - Next dose of Humira to be taken on 08/15, then q2 weeks after that - Follow-up outpatient with Dr. Coburn in ~2 weeks 2) Crohn's Disease - complicated by enterovesicular fistula, microperforation and small abscess (per CT on 07/24) - started on Humira 08/01/19, should continue humira [id number] outpatient. - surgery consulted, no acute surgical intervention at this time - recommend smoking cessation 3) Dysuria - likely UTI 2/2 to enterovesicular fistula - UA at [facility] showed no leukocytes, nitrates, or bacteria - already has been on zosyn for 3 days, and will be discharged home ciprofloxacin and flagyl for 7 days - further work up maybe warranted by primary (U/A, U.Cx) 4) GERD - protonix 40 mg, PO daily Attending Supervising Physician s Attestation Statement I have personally performed and participated in all the above services (including HPI and PE). I have reviewed the case and agreed with the medical residents assessment and plan as above. The above documentation has been reviewed and amended with the changes I have personally made to reflect the fin dings of my evaluation. The GI/Liver consult service will sign off. Please call if there are any questions, concerns or change of patient's GI condition. Thanks. Tigist Chamorro MD 08/07/2019 * Bulmaro Jerez MD - 08/07/2019 9:36 AM EST Hospitalist Progress Note 08/07/2019 9:36 AM Subjective: Admit Date: 08/05/2019 PCP: Usha Frazier DO Interval History: No overnight issues. Pt feeling much better this AM - is hungry and wants to eat - pain is down to a 5 - now hopeful that he will continue to improve on the jazmín. DIET LOW FIBER; Patient Vitals for the past 96 hrs (Last 3 readings): Weight 08/05/19 0556 286 lb 8 oz (130 kg) Medications: sodium chloride 125 mL/hr at 08/06/19 2143 acetaminophen 1,000 mg Oral 3 times per day sodium chloride flush 10 mL Intravenous 2 times per day enoxaparin 40 mg Subcutaneous Daily piperacillin-tazobactam 3.375 g Intravenous Q8H nicotine 1 patch Transdermal Daily lisinopril 10 mg Oral Daily pantoprazole 40 mg Oral QAM AC methylPREDNISolone 60 mg Intravenous Daily Recent Labs 08/06/19 0347 08/07/19 0508 WBC 16.0* 15.8* HGB 16.0 15.0 PLT 282 275 Recent Labs 08/06/19 0347 08/07/19 0508 NA 137 141 K 4.4 4.1 CL 103 107 CO2 20* 26 BUN 14 16 CREATININE 0.77 0.89 GLUCOSE 143* 97 Recent Labs 08/06/19 0347 08/07/19 0508 AST 36 29 ALT 49 46 BILITOT 1.1 0.9 ALKPHOS 71 59 No results found for: TRIG, HDL, LDLCALC, CHOL No results found for: PHART, PO2ART, [id number] No results for input(s): INR in the last 72 hours. No results for input(s): CKTOTAL, CKMB, TROPONINI in the last 72 hours. No results for input(s): DDIMER in the last 72 hours. No components found for: HGBA1C Lab Results Component Value Date TSH 0.494 11/26/2018 Urine Culture: No results found for this or any previous visit. Objective: Vitals: BP 118/79 Pulse 60 Temp 96.2 F (35.7 C) (Temporal) Resp 16 Wt 286 lb 8 oz (130 kg) SpO2 95% BMI 38.86 kg/m Pulse Ox: SpO2 Av.5 % Min: 95 % Max: 96 % Supplemental O2: General appearance: alert and cooperative with exam - tearful Lungs: clear to auscultation bilaterally Heart: regular rate and rhythm, S1, S2 normal, no murmur, click, rub or gallop Abdomen: soft, tender LLQ with mild guarding, no rebound Extremities: extremities normal, atraumatic, no cyanosis or edema Neurologic: No obvious focal neurologic deficits. Assessment Principal Problem: Diverticulitis Active Problems: Obesity (BMI 30.0-34.9) Acute Crohn's disease without complication (HCC) Abdominal pain Bipolar disorder (HCC) Resolved Problems: * No resolved hospital problems. * Diagnosis Date ADHD Bipolar disorder (HCC) 11/29/2009 Crohn's disease (HCC) Diverticulitis GERD (gastroesophageal reflux disease) IBD (inflammatory bowel disease) 2019 Intermittent explosive disorder Multiple personality disorder (HCC) PTSD (post-traumatic stress disorder) Spermatocele 07/12/2014 Plan Sigmoid diverticulitis vs Crohn's flare with colovesical fistula - pt is improving - pain is better on dilaudid and percocet - now willing to take pain meds - GI input appreciated - surgery input appreciated - want to give biologics time to work prior to any surgery Bipolar d/o with acute depression due to above - psych input appreciated - pt doing much better mentally today Hx of IBD -am labs -increase activity Advance Directive: Full Code Discharge planning: likely home in 1-2 days if continues to improve Bulmaro Jerez MD Rounding Hospitalist * Tigist Cahmorro MD - 08/06/2019 2:33 PM EST Department of Internal Medicine Gastroenterology Attending Progress Note SUBJECTIVE: Patient states his abdominal pain is slightly improved compared to yesterday, about a 7/10. Pain coming in waves but is no longer shooting up into his chest like it was yesterday. Tolerating clear liquid diet. No nausea, vomiting, fever or chills. ESR 39, CRP 7.0. On day 2 of zosyn and solumedrol. Stable leukocytosis of 16.0 (08/06), down from 16.8 (08/05). Medications Current Facility-Administered Medications: sodium chloride flush 0.9 % injection 10 mL, 10 mL, Intravenous, 2 times per day sodium chloride flush 0.9 % injection 10 mL, 10 mL, Intravenous, PRN ondansetron (ZOFRAN) injection 4 mg, 4 mg, Intravenous, Q6H PRN enoxaparin (LOVENOX) injection 40 mg, 40 mg, Subcutaneous, Daily 0.9 % sodium chloride infusion, , Intravenous, Continuous piperacillin-tazobactam (ZOSYN) 3.375 g in dextrose 50 mL IVPB extended infusion (premix), 3.375 g,Intravenous, Q8H morphine (PF) injection 2 mg, 2 mg, Intravenous, Q3H PRN OR morphine (PF) injection 4 mg, 4 mg,Intravenous, Q3H PRN nicotine (NICODERM CQ) 21 MG/24HR 1 patch, 1 patch, Transdermal, Daily dicyclomine (BENTYL) tablet 20 mg, 20 mg, Oral, Q6H PRN lisinopril (PRINIVIL;ZESTRIL) tablet 10 mg, 10 mg, Oral, Daily pantoprazole (PROTONIX) tablet 40 mg, 40 mg, Oral, QAM AC hydrOXYzine (VISTARIL) capsule 25 mg, 25 mg, Oral, TID PRN methylPREDNISolone sodium (SOLU-MEDROL) injection 60 mg, 60 mg, Intravenous, Daily melatonin tablet 3 mg, 3 mg, Oral, Nightly PRN OBJECTIVE VITALS: BP 121/84 Pulse 86 Temp 97.3 F (36.3 C) (Temporal) Resp 14 Wt 286 lb 8 oz (130 kg) SpO2 98% BMI 38.86 kg/m TEMPERATURE: Current - Temp: 97.3 F (36.3 C); Max - Temp Av.9 F (36.1 C) Min: 96.4 F (35.8 C) Max: 97.3 F (36.3 C) RESPIRATIONS RANGE: Resp Av Min: 14 Max: 14 PULSE RANGE: Pulse Av Min: 80 Max: 86 BLOOD PRESSURE RANGE: Systolic (24hrs), Av , Min:121 , Max:136 ; Diastolic (24hrs), Av, Min:81, Max:84 PULSE OXIMETRY RANGE: SpO2 Av.5 % Min: 95 % Max: 98 % 24HR INTAKE/OUTPUT: No intake or output data in the 24 hours ending 08/06/19 1436 GENERAL: Pleasant and NAD. Walking around in room when I entered. Able to sit/lay down back in bed without difficulty. HEENT: NCAT, PERRLA, EOMI, Scleral anicteric. Oropharhynx clear with no erythema or exudate. Neck supple, no cervical LAD or thyromegaly. CV: RRR, NL S1/S2, no murmurs. Distal pulses palpable and equal b/l. LUNGS: CTA b/l. Normal palpation. No W/R/R. ABD: + BS, soft, moderately TTP along lower abdomen. Obese but non-distended. No hepatosplenomegaly. No mass felt. No rebound or guarding. EXT: No C/C/E. No muscle atrophy. Skin: No skin lesion or breakdown. Lymph: No cervical or supraclavicular LAD. Musculoskeletal: Strength 5/5 in all exts. No joint tenderness or effusions in LEs. Neurologic: A&O x 3, CN II-XII grossly intact. DTR +2 symmetric in patella. Normal cerebellar fxn. Normal gait. Non-focal. Data Recent blood work, radiologic study and endoscopic study were reviewed with the patient. CBC: Recent Labs 08/06/19 0347 WBC 16.0* RBC 5.57 HGB 16.0 HCT 49.0 MCV 88.0 MCH 28.7 MCHC 32.7 RDW 14.5 PLT 282 MPV 9.2 CMP: Recent Labs 08/06/19 0347 NA 137 K 4.4 CL 103 CO2 20* BUN 14 CREATININE 0.77 GLUCOSE 143* CALCIUM 10.0 PROT 8.9* LABALBU 4.7 BILITOT 1.1 ALKPHOS 71 AST 36 ALT 49 ESR/CRP: Lab Results Component Value Date SEDRATE 39 08/06/2019 CRP 7.0 Radiology Review: All images from [facility] have been loaded in IMPAX CT A/P 05/12/19 IMPRESSION: Evidence of adhesions between distal small bowel and sigmoid colon in the midline in the pelvis and an area of previous inflammation. No acute inflammatory changes are identified currently. CT abd/pelvis w/ contrast 07/24/19 at [facility]: sigmoid abscess with some free air ( microperforation) and enterovesicular fistula, some diverticula in sigmoids (no signs of inflammation in the ileum). [facility] radiologist thought it was related to diverticulitis, radiologist here thought that there was 3 enterovesicular fistulas (2 from large bowel and 1 from small bowel) in addition to above MRI Abdomen W WO contrast (07/25/19) IMPRESSION: Region of abnormal signal with spiculated-type configuration involving a distal small bowel loop along with a portion of the sigmoid colon and adjacent bladder and the lower mid pelvis, corresponding to focal region of involvement of Crohn's disease. The fistula into the bladder is not readily appreciated, but there is likely a thin communication. CT A/P W contrast (08/05/19) - from [facility] IMPRESSION:Sigmoid diverticulitis and possible sigmoid vesicle fistula ASSESSMENT AND PLAN 1) Abdominal pain 2/2 Crohn's flair vs. diverticulitis - continue treating for both Crohn's flair with steroids and diverticulitis with IV abx - Trend daily ESR and CRP to assess response to steroids - continue zosyn (day 2) - continue solumedrol 60mg/day IV (day 2) - pain control per pain management - continue clear liquid diet - continue IVF 2) History of Crohn's disease - complicated by enterovesicular fistula, microperforation and small abscess (per CT on 07/24) - started on Humira 08/01/19, should continue humira [id number] outpatient. Spoke with patient about amount of time (4-6 weeks+) it usually takes for Humira to start causing noticeable symptom improvment. He was unaware of this previously. - recommend general surgery consult given ongoing symptoms and further discussion if surgical intervention may be warranted. - continue to recommend smoking cessation 3) GERD - Protonix 40 mg daily Attending Supervising Physician s Attestation Statement I have personally performed and participated in all the above services (including HPI and PE). I have reviewed the case and agreed with the medical students assessment and plan as above. The above documentation has been reviewed and amended with the changes I have personally made to reflect the findings of my evaluation. Tigist Chamorro MD 08/06/2019 * Bulmaro Jerez MD - 08/06/2019 10:30 AM EST Hospitalist Progress Note 08/06/2019 10:30 AM Subjective: Admit Date: 08/05/2019 PCP: Usha Frazier DO Interval History: No overnight issues. States the abdominal pain is slightly worse today - still bilateral lower quadrants - if afraid to eat bc he thinks it will make pain worse DIET CLEAR LIQUID; Patient Vitals for the past 96 hrs (Last 3 readings): Weight 08/05/19 0556 286 lb 8 oz (130 kg) Medications: sodium chloride 125 mL/hr at 08/06/19 0640 sodium chloride flush 10 mL Intravenous 2 times per day enoxaparin 40 mg Subcutaneous Daily piperacillin-tazobactam 3.375 g Intravenous Q8H nicotine 1 patch Transdermal Daily lisinopril 10 mg Oral Daily pantoprazole 40 mg Oral QAM AC methylPREDNISolone 60 mg Intravenous Daily Recent Labs 08/06/19 0347 WBC 16.0* HGB 16.0 PLT 282 Recent Labs 08/06/19 0347 NA 137 K 4.4 CL 103 CO2 20* BUN 14 CREATININE 0.77 GLUCOSE 143* Recent Labs 08/06/19 0347 AST 36 ALT 49 BILITOT 1.1 ALKPHOS 71 No results found for: TRIG, HDL, LDLCALC, CHOL No results found for: PHART, PO2ART, UYO9RED No results for input(s): INR in the last 72 hours. No results for input(s): CKTOTAL, CKMB, TROPONINI in the last 72 hours. No results for input(s): DDIMER in the last 72 hours. No components found for: HGBA1C Lab Results Component Value Date TSH 0.494 11/26/2018 Urine Culture: No results found for this or any previous visit. Objective: Vitals: BP 121/84 Pulse 86 Temp 97.3 F (36.3 C) (Temporal) Resp 14 Wt 286 lb 8 oz (130 kg) SpO2 98% BMI 38.86 kg/m Pulse Ox: SpO2 Av.5 % Min: 95 % Max: 98 % Supplemental O2: General appearance: alert and cooperative with exam - tearful Lungs: clear to auscultation bilaterally Heart: regular rate and rhythm, S1, S2 normal, no murmur, click, rub or gallop Abdomen: soft, tender LLQ with mild guarding, no rebound Extremities: extremities normal, atraumatic, no cyanosis or edema Neurologic: No obvious focal neurologic deficits. Assessment Principal Problem: Diverticulitis Active Problems: Obesity (BMI 30.0-34.9) Acute Crohn's disease without complication (HCC) Abdominal pain Bipolar disorder ([facility]) Resolved Problems: * No resolved hospital problems. * Diagnosis Date ADHD Bipolar disorder (HCC) 11/29/2009 Crohn's disease (HCC) Diverticulitis GERD (gastroesophageal reflux disease) IBD (inflammatory bowel disease) 2019 Intermittent explosive disorder Multiple personality disorder (HCC) PTSD (post-traumatic stress disorder) Spermatocele 07/12/2014 Plan Sigmoid diverticulitis vs Crohn's flare with colovesical fistula - pt still with sig lower abdominal pain today - cont IV zosyn IV medrol - GI input appreciated - pt is requesting surgery at this time due to amount of pain he is in - have a page out to Dr Fonseca - pt refusing opoid medications as his mother had issues with addiction - will ask for pain management input Bipolar d/o with acute depression due to above - will ask for psych eval today Hx of IBD -am labs -increase activity Advance Directive: Full Code Discharge planning: TBD Bulmaro Jerez MD Rounding Hospitalist documented in this encounter* Lenora Webb RN - 05/10/2020 6:10 PM EDT Discharge instructions given with verbalized good understanding. Pt denies any questions at this time. Pt to be discharged home with all personal belongings. Transport called. * Kristen Strong, MS, RD, LD - 05/10/2020 11:25 AM EDT Comprehensive Nutrition Assessment Type and Reason for Visit: Initial, Positive Nutrition Screen Nutrition Recommendations/Plan: 1. Suggest resume full liquid diet after MRI and advance as tolerated to goal diet of Low Fiber. 2. Recommend small frequent meals to aid in meal tolerance 3. Suggest obtain current weight if able 4. Continue to document % meals consumed in nursing flow sheets 5. RD continue to monitor overall nutritional status and follow up weekly Nutrition Assessment: Patient reports that he has been having severe, generalized, abdominal pain since this morning. He reports that there are times that his pain is so severe that he feels dizzy, weak, and disoriented. Patient reports that his bowel movements are highly irregular, and reports that there are times that they are liquid, times they are hard, but reports a consistent oil to his stool. Reports that he was Patient with pmhx of crohns, diverticulitis, GERD, IBD, ADHD, bipolar, intermittent explosive disorder; multiple personality disorder, and PTSD who was recently admitted to [facility] on 04/27 for diverticulitis, but signed out AMA related to anxiety. He reports that given his history of intermittent explosive disorder, he was having increased anxiety with the IV Solumedrol he was being given. Patient off floor during RD visit. Malnutrition Assessment: Malnutrition Status: Insufficient data Nutrition Related Findings: +bowel sounds; no edema noted; Wu 21; +I&O Wounds: None Anthropometric Measures: Height: 5' 11 (180.3 cm) Current Body Weight: none Admission Body Weight: 285 lb (129.3 kg)(stated) Usual Body Weight: (epic review: (04/27/20) 285#; (10/26/19) 278#; (10/18/19) 272#) [place] Body Weight: 172 lbs; Adjusted Body Weight: ; No Adjustment BMI Categories: Obese Class 2 (BMI 35.0 -39.9) Nutrition Diagnosis: Predicted inadequate energy intake related to altered GI function as evidenced by poor intake priorto admission, nausea, vomiting Nutrition Interventions: Food and/or Nutrient Delivery: Continue Current Diet Nutrition Education/Counseling: Coordination of Nutrition Care: Continued Inpatient Monitoring Goals: Patient tolerate diet advancement without GI distress Nutrition Monitoring and Evaluation: Food/Nutrient Intake Outcomes: Diet Advancement/Tolerance, Food and Nutrient Intake Physical Signs/Symptoms Outcomes: Biochemical Data, GI Status, Nausea or Vomiting, Fluid Status or Edema, Hemodynamic Status, Meal Time Behavior, Skin, Weight Discharge Planning: Continue current diet Contact: pager [phone] * Rupa Frederick APRN - CNP - 05/10/2020 10:12 AM EDT Ruthie Castillo is a 30 y.o. male Chief Complaint Patient presents with Abdominal Pain Pt here to the ER c/o abd pain since noon today. Pt has hx of Crohn's. Dizziness Diarrhea Attempted to see pt in follow up for consult regarding anxiety, IED. Pt off unit at this time. Willre-attempt later today as able. * Rupa Frederick APRN - CNP - 05/10/2020 8:35 AM EDT Department of Psychiatry Progress Note Reason for Consult/Chief Complaint: Chief Complaint Patient presents with Abdominal Pain Pt here to the ER c/o abd pain since noon today. Pt has hx of Crohn's. Dizziness Diarrhea Consulting Practitioner: Rupa Frederick APRN Identifying data: Ruthie Castillo is a 30 y.o. male HISTORY OF PRESENT ILLNESS: Pt seen for follow up for consult regarding intermittent explosive disorder. Pt sitting up in bed, calm and cooperative with interview on approach. Pt tolerating gabapentin well. Voices worry that he isn't seeing much effect yet from gabapentin, encouraged to give the med a few days to kick in. Revisited the idea of trying risperdal. Pt hesitant to try given nightmareswith other antipsychotics at this time. Discussed other mood stabilizing agents (depakote, lithium,etc). And the need for monitoring with these meds. Would not recommend starting in inpatient setting with no follow up provider to knowledgeably dose and monitor. Pt voices understanding. Provided emotional support and encouragement, as well as education regarding med choices. Past Medical and Psychiatric History: Bipolar disorder, ADHD, PTSD, IED, depression. Had one prior inpatient psychiatric admission, and was incarcerated from ages [age] due to violent outbursts and was treated there for bipolar D/O and IED. Diagnosis Date ADHD Bipolar disorder (HCC) 11/29/2009 Crohn's disease (HCC) Diverticulitis GERD (gastroesophageal reflux disease) IBD (inflammatory bowel disease) 2019 Intermittent explosive disorder Multiple personality disorder (HCC) PTSD (post-traumatic stress disorder) Spermatocele 07/12/2014 Family Psychiatric and Medical History: Father had history of violent behavior, mother with historyof substance use issues. Problem Relation Age of Onset Coronary Art Dis Mother Hypertension Mother Stroke Mother Inflam Bowel Dis Father Hypertension Father Crohn's Disease Father Crohn's Disease Brother Colon Cancer Maternal Grandfather Inflam Bowel Dis Paternal Aunt Social History: Lives in a home which he owns with his ( 6 years, together 9). Has a large social support network and feels that he has a lot of support outside of hospital. Has good relationship with mom and brother, has a sister whom he is not in touch with anymore. 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 Prior history of methamphetamine use (quit over 5 years ago and has not used since. Denies other personal history of drug and alcohol misuse. Does have medical marijuana which he smokes on a daily basis for his anxiety symptoms. Social History Socioeconomic History Marital status: Spouse name: Not on file Number of children: Not on file Years of education: Not on file Highest education level: Not on file Occupational History Occupation: none Employer: [employer] Social Needs Financial resource strain: Not on file Food insecurity Worry: Not on file Inability: Not on file Transportation needs Medical: Not on file Non-medical: Not on file Tobacco Use Smoking status: Current Every Day Smoker Packs/day: 0.50 Start date: 11/18/2008 Smokeless tobacco: Never Used Substance and Sexual Activity Alcohol use: Not Currently Comment: Last drinking was on 07/02/2018. no he ETOH Drug use: Yes Types: Marijuana Comment: medical marijuana rx-daily Sexual activity: Yes Comment: Lifestyle Physical activity Days per week: Not on file Minutes per session: Not on file Stress: Not on file Relationships Social connections Talks on phone: Not on file Gets together: Not on file Attends [employer] service: Not on file Active member of club or organization: Not on file Attends meetings of clubs or organizations: Not on file Relationship status: Not on file Intimate partner violence Fear of current or ex partner: Not on file Emotionally abused: Not on file Physically abused: Not on file Forced sexual activity: Not on file Other Topics Concern Not on file Social History Narrative Not on file PAST SURGICAL HISTORY Procedure Laterality Date COLONOSCOPY 11/12/2018 at [facility] , normal .colonoscopy, by Dr Raffaele Cordero COLONOSCOPY 2015 At [place] , per pt normal colonscopy FOOT SURGERY 2008 TESTICLE SURGERY 2013 Allergies: Bee venom; Beta adrenergic blockers; Dextromethorphan hbr; Doxylamine; Mushroom extract complex; Nyquil hbp cold & flu [[id number]]; Pseudoephedrine; Dextromethorphan;and Poison mimi extract REVIEW OF SYSTEMS: ROS: Review of Systems Gastrointestinal: Positive for abdominal pain. Psychiatric/Behavioral: Positive for decreased concentration and dysphoric mood. Negative for agitation, behavioral problems, confusion, hallucinations, self- injury, sleep disturbance and suicidal ideas. The patient is nervous/anxious. The patient is not hyperactive. PHYSICAL EXAM: Vitals: BP 124/60 Pulse 74 Temp 97.9 F (36.6 C) (Temporal) Resp 20 Ht 5' 11 (1.803 m) Wt 285 lb (129.3 kg) SpO2 97% BMI 39.75 kg/m Physical Examination: Physical Exam HENT: Head: Normocephalic and atraumatic. Eyes: Pupils: Pupils are equal, round, and reactive to light. Cardiovascular: Rate and Rhythm: Normal rate. Pulmonary: Effort: Pulmonary effort is normal. No respiratory distress. Skin: General: Skin is dry. Neurological: Mental Status: He is alert and oriented to person, place, and time. Psychiatric: Attention and Perception: Attention and perception normal. Mood and Affect: Affect normal. Mood is anxious. Speech: Speech normal. Behavior: Behavior is cooperative. Thought Content: Thought content is not paranoid. Thought content does not include homicidal or suicidal ideation. Cognition and Memory: Cognition and memory normal. Comments: judgement and insight fair DATA: Recent Results (from the past 24 hour(s)) CBC Collection Time: 05/10/20 12:46 AM Result Value Ref Range WBC 21.2 (H) 3.6 - 10.7 10*3/uL RBC 4.94 4.40 - 5.90 10*6/uL Hemoglobin 15.0 13.0 - 18.0 g/dL Hematocrit 45.0 40.0 - 52.0 % MCV 91.1 80.0 - 98.0 fL MCH 30.3 26.0 - 34.0 pg MCHC 33.3 32.0 - 36.0 % RDW 14.6 (H) 11.5 - 14.5 % Platelets 280 140 - 440 10*3/uL MPV 9.6 7.4 - 10.4 fL Assessment: Adjustment disorder with anxious distress H/O intermittent explosive disorder, PTSD, ADHD, Bipolar disorder Psychological factors affecting other medical condition PLAN: Will continue gabapentin 300 mg PO BID as pt has had some success with this med in the past withoutside effects. Recommend ongoing outpatient mental health treatment. Will continue to meet with pt to encourage ongoing engagement with outpatient services and medication regimen adherence. Did give contact info for my office if he needs services between discharge and when he gets established with [facility]. Please page myself or [facility] psychiatrist for emergent needs or follow up questions. Thank you forallowing me to participate in the care of this patient. * Benedict Trevizo MD - 05/10/2020 8:17 AM EDT Department of Internal Medicine Gastroenterology Attending Progress Note SUBJECTIVE: Patient examined at bedside. He reports improvement of pain today. He was able to eat and drink. His bowels are moving, and did not report diarrhea or blood in his stools. Medications Current Facility-Administered Medications: gabapentin (NEURONTIN) capsule 300 mg, 300 mg, Oral, BID polyethylene glycol (GLYCOLAX) packet 17 g, 17 g, Oral, Daily oxyCODONE (ROXICODONE) immediate release tablet 5 mg, 5 mg, Oral, Q4H PRN OR oxyCODONE (ROXICODONE) immediate release tablet 10 mg, 10 mg, Oral, Q4H PRN sodium chloride flush 0.9 % injection 10 mL, 10 mL, Intravenous, 2 times per day sodium chloride flush 0.9 % injection 10 mL, 10 mL, Intravenous, PRN promethazine (PHENERGAN) tablet 12.5 mg, 12.5 mg, Oral, Q6H PRN OR ondansetron (ZOFRAN) injection 4 mg, 4 mg, Intravenous, Q6H PRN enoxaparin (LOVENOX) injection 40 mg, 40 mg, Subcutaneous, Daily 0.9 % sodium chloride infusion, , Intravenous, Continuous famotidine (PEPCID) injection 20 mg, 20 mg, Intravenous, BID methylPREDNISolone sodium (SOLU-MEDROL) injection 20 mg, 20 mg, Intravenous, Q8H piperacillin-tazobactam (ZOSYN) 3.375 g in dextrose 50 mL IVPB (premix), 3.375 g, Intravenous, Q8H morphine sulfate (PF) injection 2 mg, 2 mg, Intravenous, Q4H PRN LORazepam (ATIVAN) injection 0.5 mg, 0.5 mg, Intravenous, Q8H PRN dicyclomine (BENTYL) tablet 20 mg, 20 mg, Oral, TID PRN lisinopril (PRINIVIL;ZESTRIL) tablet 10 mg, 10 mg, Oral, Daily tiZANidine (ZANAFLEX) tablet 4 mg, 4 mg, Oral, Q8H PRN OBJECTIVE VITALS: BP 124/60 Pulse 74 Temp 97.9 F (36.6 C) (Temporal) Resp 20 Ht 5' 11 (1.803 m) Wt285 lb (129.3 kg) SpO2 97% BMI 39.75 kg/m TEMPERATURE: Current - Temp: 97.9 F (36.6 C); Max - Temp Av.5 F (36.4 C) Min: 97.1 F (36.2 C) Max: 97.9 F (36.6 C) RESPIRATIONS RANGE: Resp Av Min: 20 Max: 20 PULSE RANGE: Pulse Av Min: 74 Max: 86 BLOOD PRESSURE RANGE: Systolic (24hrs), Av , Min:124 , Max:134 ; Diastolic (24hrs), Av, Min:60, Max:78 PULSE OXIMETRY RANGE: SpO2 Av.5 % Min: 96 % Max: 97 % 24HR INTAKE/OUTPUT: Intake/Output Summary (Last 24 hours) at 05/10/2020 0818 Last data filed at 05/10/2020 0441 Gross per 24 hour Intake 2080 ml Output 650 ml Net 1430 ml GENERAL: Pleasant and NAD. HEENT: NCAT, PERRLA, EOMI, Scleral anicteric. Oropharhynx clear with no erythema or exudate. Neck supple, no cervical LAD or thyromegaly. CV: RRR, NL S1/S2, no murmurs. Distal pulses palpable and equal b/l. LUNGS: CTA b/l. Normal percussion and palpation. No W/R/R. ABD: + BS, soft, tender, no guarding, no rebound tenderness, non-distended. No hepatosplenomegaly. No mass felt. No rebound or guarding. EXT: No C/C/E. No muscle atrophy. Skin: No skin lesion or breakdown. Lymph: No cervical or supraclavicular LAD. Musculoskeletal: Strength 5/5 in all exts. No joint tenderness or effusions in LEs. Neurologic: A&O x 3, CN II-XII grossly intact. Normal gait. Non-focal. Data Recent blood work, radiologic study and endoscopic study were reviewed with the patient. CMP: Recent Labs 05/08/20190605/09/20 0600 NA 136 137 K 4.5 4.5 CL 103 103 CO2 22 24 BUN 17 18 CREATININE 0.56 0.62 GLUCOSE 141* 110* CALCIUM 9.5 9.0 PROT 7.7 -- LABALBU 4.6 -- BILITOT 0.7 -- ALKPHOS 89 -- AST 36 -- ALT 45 -- CBC: Recent Labs 05/08/20190605/09/20 0600 05/10/20 0046 WBC 14.7* 14.6* 21.2* RBC 5.06 4.89 4.94 HGB 15.1 14.6 15.0 HCT 45.6 44.3 45.0 MCV 90.2 90.6 91.1 MCH 29.9 29.9 30.3 MCHC 33.1 32.9 33.3 RDW 14.5 14.5 14.6* PLT 281 236 280 MPV 8.9 9.1 9.6 MRI Abdomen -There are multiple sigmoid diverticulae and attendant inflammatory changes consistent with diverticulitis. There are inflammatory strands on the antimesenteric border extending to the bladder dome. ASSESSMENT AND PLAN Active Problems: Intractable nausea and vomiting Resolved Problems: * No resolved hospital problems. * Patient appears to have recurrent issues with diverticulitis. He also has been inconsistent with his Humira (has not had it since October), but reports benefit when taking it. His CRP and ESR are not elevated, he has a slight increase in his WBC. MRI did show some inflammation on the antimesenteric border extending to the bladder dome. -continue lovenox -surgery consult-no intervention needed at this time. -continue solumedrol 20mg q8 -cont antibiotics -restart humira on discharge, and Attending Supervising Physician's Attestation Statement I performed a history and physical examination on the patient and discussed the management with theresident physician. I reviewed and agree with the findings and plan as documented in his note: Will restart Humira as outpatient with compliance stressed in hopes of reducing likely Crohn's (rather than diverticulitis as noted on imaging although colonoscopy should be repeated to better definedisease and confirm diagnosis of IBD). * Lenora Webb RN - 05/09/2020 3:[address] Lees notified of patients worsening abdominal pain. New orders placed. Will continue to monitor. * Luli Lees MD - 05/09/2020 12:30 PM EDT PROGRESS NOTE SUBJECTIVE: Patient seen and examined, I was wearing N95 mask throughout the patient encounter Interval history: On admission Presented with abdominal pain and crohn's Overnight event : No New issues: complaints of general abdomen pain, states diarrhea and constipation alternating, now difficulty BM, but 2 small ones Review of System: No CP No SOB No fever No cough No dizziness No headache No focal weakness No dysuria No edema DIET GENERAL; VITALS: BP 114/70 Pulse 54 Temp 97.9 F (36.6 C) (Temporal) Resp 20 Ht 5' 11 (1.803 m) Wt 285 lb (129.3 kg) SpO2 96% BMI 39.75 kg/m BLOOD PRESSURE RANGE: Systolic (24hrs), Av , Min:114 , Max:149 ; Diastolic (24hrs), Av, Min:68, Max:90 24HR INTAKE/OUTPUT: Intake/Output Summary (Last 24 hours) at 05/09/2020 1230 Last data filed at 05/09/2020 0602 Gross per 24 hour Intake 2112 ml Output Net 2112 ml PHYSICAL EXAM: General appearance: No apparent distress, appears stated age and cooperative. AOx3 HEENT: Normal cephalic, atraumatic without obvious deformity. PERRL. Extra ocular muscles intact. Conjunctivae/corneas clear. Neck: Supple, No JVD. Trachea midline. No lymphadenopathy. Respiratory: Normal respiratory effort. no Rales. no Wheezes. No Rhonchi. Cardiovascular: Regular rate and rhythm, normal S1/S2. no murmurs, no rubs, no gallops. Abdomen: Soft, general diffuse-tender, non-distended, normal bowel sounds. No rebound or guarding. Musculoskeletal: No clubbing, no cyanosis. No LE edema bilaterally. Skin: No rashes. Neurologic: No focal sensory, no motor deficits. Cranial nerves: II-XII intact LABS: Recent Labs 05/08/20190605/09/20 0600 WBC 14.7* 14.6* HGB 15.1 14.6 HCT 45.6 44.3 MCV 90.2 90.6 PLT 281 236 Recent Labs 05/08/20190605/09/20 0600 NA 136 137 K 4.5 4.5 CL 103 103 CO2 22 24 GLUCOSE 141* 110* BUN 17 18 CREATININE 0.56 0.62 Ionized Calcium: No results found for: IONCA Magnesium: Lab Results Component Value Date MG 2.1 12/28/2018 Phosphorus: No results found for: PHOS LIVER PROFILE: Recent Labs 05/08/20 1907 AST 36 ALT 45 BILITOT 0.7 ALKPHOS 89 LABALBU 4.6 PROT 7.7 PT/INR: No results for input(s): PROTIME, INR in the last 72 hours. CARDIAC ENZYMES: No results for input(s): TROPONINI in the last 72 hours. Procalcitonin: No results found for: PROCAL U/A: Lab Results Component Value Date COLORU Colorless 05/08/2020 COLORU YELLOW 12/25/2018 WBCUA 0-2 10/17/2019 RBCUA 0-2 10/17/2019 BACTERIA Few (1-5) 10/17/2019 LEUKOCYTESUR Negative 05/08/2020 UROBILINOGEN Normal 05/08/2020 BILIRUBINUR Negative 05/08/2020 BILIRUBINUR NEGATIVE 12/25/2018 GLUCOSEU Normal 05/08/2020 Urine Culture: No results for input(s): LABURIN in the last 72 hours. Blood Culture: No results found for: BC IMAGINGS: CT Abdomen Pelvis W Contrast Final Result Scheduled Meds: gabapentin 300 mg Oral BID sodium chloride flush 10 mL Intravenous 2 times per day enoxaparin 40 mg Subcutaneous Daily famotidine (PEPCID) injection 20 mg Intravenous BID methylPREDNISolone 20 mg Intravenous Q8H piperacillin-tazobactam 3.375 g Intravenous Q8H lisinopril 10 mg Oral Daily Continuous Infusions: sodium chloride 75 mL/hr at 05/08/20 2348 PRN Meds:sodium chloride flush, polyethylene glycol, promethazine OR ondansetron, oxyCODONE, morphine, LORazepam, dicyclomine, tiZANidine DIET GENERAL; Advance Directive: Full Code ASSESSMENT AND PLAN 1. Intractable abdominal pain 2. Crohn's Disease 3. Recent diverticulitis 4. IBD 5. GERD 6. Bipolar Disorder 7. Intermittent Explosive Disorder Pain control, GI consulted, appreciate input Continue current zosyn and solumedrol Restart humira on discharge per GI Started neurontin per psych, may add risperdal in the future as OP Continue miralax from home Obese (BMI 30.0-39.9) Discharge planning: TBD Following past medical problems has been monitored in hospital Diagnosis Date ADHD Bipolar disorder (HCC) 11/29/2009 Crohn's disease (HCC) Diverticulitis GERD (gastroesophageal reflux disease) IBD (inflammatory bowel disease) 2019 Intermittent explosive disorder Multiple personality disorder (HCC) PTSD (post-traumatic stress disorder) Spermatocele 07/12/2014 Luli Lees MD On 05/09/2020 at 12:30 PM documented in this encounter* Luiz Franklin MD - 06/30/2020 8:23 AM EDT Department of Surgery Surgical Service 3 Daily Progress Note PATIENT NAME: Ruthie Castillo : 1990 ATTENDING PHYSICIAN: Spencer Fonseca MD ADMIT DATE: 06/26/2020 TODAY'S DATE: 06/30/2020 SUBJECTIVE/ Past 24 hours Pain control improved with toradol. Denies nausea, vomiting, fevers, chills, chest pain, dyspnea. Tolerating clear liquid diet. Awaiting bowel function, no gas nor stool effluent from ostomy. OBJECTIVE VITALS: BP (!) 102/55 Pulse 59 Temp 98.8 F (37.1 C) (Temporal) Resp 20 Ht 5' 11 (1.803 m) Wt 271 lb (122.9 kg) SpO2 95% BMI 37.80 kg/m PHYSICAL EXAM: CONSTITUTIONAL: NAD, A&O X3. CHEST: Resp effort easy and unlabored ABDOMEN:soft, non-distended, appropriate ko-incisional TTP, no rebound nor guarding. Ostomy pink,non-edematous, retracted, with no gas nor stool effluent. INTAKE/OUTPUT: Date 06/30/20 0000 - 06/30/20 2359 Shift 8952-7583 6932-3532 3065-2768 24 Hour Total INTAKE P.O.(mL/kg/hr) 400(0.4) 400 I.V.(mL/kg) 850(6.9) 850(6.9) Shift Total(mL/kg) 1250(10.2) 1250(10.2) OUTPUT Urine(mL/kg/hr) 700(0.7) 700 Stool(mL/kg) 0(0) 0(0) Shift Total(mL/kg) 700(5.7) 700(5.7) Weight (kg) 122.9 122.9 122.9 122.9 I/O last 3 completed shifts: In: 1250 [P.O.:400; I.V.:850] Out: 2100 [Urine:2100] No intake/output data recorded. Data Recent Labs 06/28/2010006/29/2010806/30/20 0029 WBC 9.9 14.1* 10.5 HGB 14.8 14.2 13.5 HCT 42.7 41.7 40.1 PLT 249 299 297 Recent Labs 06/28/2010006/29/2010806/30/20 002 NA 137 138 137 K 4.0 4.7 3.7 CL 101 103 102 CO2 22 20* 26 BUN 9 12 10 CREATININE 0.76 0.82 0.84 GLUCOSE 78 167* 85 No results for input(s): AST, ALT, ALB, BILITOT, ALKPHOS in the last 72 hours. Imaging Pertinent imaging reviewed. Current Inpatient Medications Current Facility-Administered Medications: lidocaine 4 % external patch 1 patch, 1 patch, Transdermal, Daily HYDROmorphone (DILAUDID) injection 0.5 mg, 0.5 mg, Intravenous, Q3H PRN OR HYDROmorphone (DILAUDID) injection 1 mg, 1 mg, Intravenous, Q3H PRN hydrALAZINE (APRESOLINE) injection 10 mg, 10 mg, Intravenous, Q4H PRN ketorolac (TORADOL) injection 30 mg, 30 mg, Intravenous, Q6H calcium carbonate (TUMS) chewable tablet 500 mg, 500 mg, Oral, TID PRN enoxaparin (LOVENOX) injection 40 mg, 40 mg, Subcutaneous, Daily dextrose 5 % and 0.45 % NaCl with KCl 20 mEq infusion, , Intravenous, Continuous oxyCODONE (ROXICODONE) immediate release tablet 5 mg, 5 mg, Oral, Q4H PRN OR oxyCODONE (ROXICODONE) immediate release tablet 10 mg, 10 mg, Oral, Q4H PRN acetaminophen (TYLENOL) tablet 1,000 mg, 1,000 mg, Oral, 3 times per day methocarbamol (ROBAXIN) tablet 1,000 mg, 1,000 mg, Oral, 4x Daily gabapentin (NEURONTIN) capsule 300 mg, 300 mg, Oral, BID hydrOXYzine (VISTARIL) capsule 50 mg, 50 mg, Oral, Q6H PRN sodium chloride flush 0.9 % injection 10 mL, 10 mL, Intravenous, 2 times per day sodium chloride flush 0.9 % injection 10 mL, 10 mL, Intravenous, PRN ondansetron (ZOFRAN-ODT) disintegrating tablet 4 mg, 4 mg, Oral, Q8H PRN OR ondansetron (ZOFRAN) injection 4 mg, 4 mg, Intravenous, Q6H PRN piperacillin-tazobactam (ZOSYN) 3.375 g in dextrose 50 mL IVPB extended infusion (premix), 3.375 g,Intravenous, Q8H acetaminophen (TYLENOL) tablet 650 mg, 650 mg, Oral, Q4H PRN ASSESSMENT AND PLAN 30 y.o. male with hx of crohn's and recurrent diverticulitis with acute complicated diverticulitis (hinchey 1) with a small pericolonic fluid collection. Lap sigmoidectomy with DLI 06/28 - PRN Anti-hypertensives - Pain control with tylenol sharlene, gabapentin (home dose), oxy 5/10 Q4h PRN and dilaudid 0.5-1 Q3, toradol q6h sharlene. - Continue clear liquid diet -Await return of bowel function - Continue Zosyn, day 3/4 (end date 07/01) Luiz Franklin MD 06/30/2020 8:23 AM * Baudilio Dumont DO - 06/29/2020 10:03 AM EDT Department of Surgery Surgical Service 3 Daily Progress Note PATIENT NAME: Ruthie Castillo : 1990 ATTENDING PHYSICIAN: Spencer Fonseca MD ADMIT DATE: 06/26/2020 TODAY'S DATE: 06/29/2020 SUBJECTIVE/ Past 24 hours Poorly controlled pain postop overnight. Had moderate back and abdominal pain that pain meds did not fully relieve. Given oxy, dilaudid, and robaxin. Pain still moderate this morning but improved. Denies nausea, vomiting, fevers, chills, chest pain, dyspnea. Tolerating limited clears. OBJECTIVE VITALS: BP (!) 163/82 Pulse 59 Temp 98.2 F (36.8 C) (Temporal) Resp 16 Ht 5' 11 (1.803 m) Wt 271 lb (122.9 kg) SpO2 98% BMI 37.80 kg/m PHYSICAL EXAM: CONSTITUTIONAL: NAD, A&O X3. CHEST: Resp effort easy and unlabored ABDOMEN: incisions CDI, diffusely TTP, Peritoneal signs absent INTAKE/OUTPUT: Date 06/29/20 0000 - 06/29/20 2359 Shift 7054-2209 7596-2359 6020-9552 24 Hour Total INTAKE I.V.(mL/kg) 630(5.1) 630(5.1) Shift Total(mL/kg) 630(5.1) 630(5.1) OUTPUT Urine(mL/kg/hr) 875(0.9) 875 Stool(mL/kg) 0(0) 0(0) Shift Total(mL/kg) 875(7.1) 875(7.1) Weight (kg) 122.9 122.9 122.9 122.9 I/O last 3 completed shifts: In: 2430 [I.V.:2430] Out: 1125 [Urine:1025; Blood:100] No intake/output data recorded. Data Recent Labs 06/27/20 0058 06/28/20 0101 06/29/20 0109 WBC 12.6* 9.9 14.1* HGB 13.9 14.8 14.2 HCT 41.0 42.7 41.7 PLT 212 249 299 Recent Labs 06/27/20 0058 06/28/20 0101 06/29/20 0109 NA 137 137 138 K 3.5 4.0 4.7 CL 102 101 103 CO2 23 22 20* BUN 8 9 12 CREATININE 0.78 0.76 0.82 GLUCOSE 72 78 167* Recent Labs 06/26/20 1302 AST 27 ALT 27 BILITOT 2.2* ALKPHOS 54 Imaging Pertinent imaging reviewed. Current Inpatient Medications Current Facility-Administered Medications: lidocaine 4 % external patch 1 patch, 1 patch, Transdermal, Daily HYDROmorphone (DILAUDID) injection 0.5 mg, 0.5 mg, Intravenous, Q3H PRN OR HYDROmorphone (DILAUDID) injection 1 mg, 1 mg, Intravenous, Q3H PRN hydrALAZINE (APRESOLINE) injection 10 mg, 10 mg, Intravenous, Q4H PRN enoxaparin (LOVENOX) injection 40 mg, 40 mg, Subcutaneous, Daily dextrose 5 % and 0.45 % NaCl with KCl 20 mEq infusion, , Intravenous, Continuous oxyCODONE (ROXICODONE) immediate release tablet 5 mg, 5 mg, Oral, Q4H PRN OR oxyCODONE (ROXICODONE) immediate release tablet 10 mg, 10 mg, Oral, Q4H PRN acetaminophen (TYLENOL) tablet 1,000 mg, 1,000 mg, Oral, 3 times per day methocarbamol (ROBAXIN) tablet 1,000 mg, 1,000 mg, Oral, 4x Daily gabapentin (NEURONTIN) capsule 300 mg, 300 mg, Oral, BID hydrOXYzine (VISTARIL) capsule 50 mg, 50 mg, Oral, Q6H PRN sodium chloride flush 0.9 % injection 10 mL, 10 mL, Intravenous, 2 times per day sodium chloride flush 0.9 % injection 10 mL, 10 mL, Intravenous, PRN ondansetron (ZOFRAN-ODT) disintegrating tablet 4 mg, 4 mg, Oral, Q8H PRN OR ondansetron (ZOFRAN) injection 4 mg, 4 mg, Intravenous, Q6H PRN piperacillin-tazobactam (ZOSYN) 3.375 g in dextrose 50 mL IVPB extended infusion (premix), 3.375 g,Intravenous, Q8H acetaminophen (TYLENOL) tablet 650 mg, 650 mg, Oral, Q4H PRN ASSESSMENT AND PLAN 30 y.o. male with hx of crohn's and recurrent diverticulitis with acute complicated diverticulitis (hinchey 1) with a small pericolonic fluid collection. Lap sigmoidectomy with DLI 06/28 - AF, hypertensive to 175 but otherwise stable - PRN Hydralazine - WBC 14.1 from 9.9 - Hgb 14.2 from 14.8 - pain poorly controlled overnight - continue oxy 5-10 Q4 and dilaudid 0.5-1 Q3. Try PO pain meds first, IV for breakthrough - continue scheduled tylenol and gabapentin - continue robaxin - consider pain mgmt consult if pain continues to be poorly controlled - remove oleary - unlimited clears - ARBF - continue Zosyn until POD4 - will discuss with Dr. Nhi Dumont, 06/29/2020 10:03 AM * Andreina Pompa RN - 06/28/2020 7:49 PM EDT Report to [facility]. * Malorie Kellogg RD, LD - 06/28/2020 10:36 AM EDT Comprehensive Nutrition Assessment Type and Reason for Visit: Initial, Positive Nutrition Screen(weight loss) Nutrition Recommendations/Plan: 1. Recommend continue on diet as currently ordered, patient is currently NPO with plans for OR today for sigmoidectomy and possible small bowel resection. Recommend pt not be without nutrition for >72 hours of admit if medically feasible. If pt is able to initiate oral diet recommend goal of Low Fiber to promote tolerance. If pt is unable to initiate and advance oral diet and requires bowel rest to exceed 5-7 days recommend TPN: 140gm protein (560kcals), 585 lipid kcals, 810 dextrose kcals = 1955 total kcals (25kcals/kg, 1.8gm/kg IBW). 2. Will monitor tolerance of nutrition once initiated via appropriate route. 3. Will monitor need for ONS once PO intake is established. 4. Will monitor questions or concerns during admit, pt denies at this time. 5. Will continue to monitor weight changes, labs and overall nutrition status 6. 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 (pt on Humira, next dose scheduled for 06/29, receives dose every 2 weeks), PTSD, GERD, IBD, Bipolar Disorder, Multiple Personality Disorder, Intermittent Explosive Disorder, and Diverticulitis who presents as a transfer from [place], pt states on evening he developed some pain in his left lower abdomen which he states fell different than my Crohn's pain , pt went to [place] ED where he was diagnosed w ith diverticulitis and abscess, was then admitted and placed on IV antibiotics and saw a surgeon who recommended transfer to [facility] for further evaluation, patient states he has been taking his Humira as prescribed for his Crohn's disease, pt last saw GI MD for virtual visit 05/13 who recommended scheduling colonoscopy to evaluate Crohn's disease which is scheduled for 08/09, currently pt is NPO, surgery was consulted on admit as well as GI, surgery notes plans for OR today for sigmoidectomy and possible small bowel resection, per MD pt tolerated prep overnight, pt has NKFA, pt CBW 271# stated and pt weight has ranged 260-286# over the past year, will monitor Malnutrition Assessment: Malnutrition Status: At risk for malnutrition (Comment)(currently pt is NPO, pt weight has ranged from 260-286# over the past year, pt felt his Crohn's was well controlled [employer] SCI[employer], will monitor) Estimated Daily Nutrient Needs: Energy (kcal): 1955-2346kcals/day; Weight Used for Energy Requirements: [place] Protein (g): 78-94gm pro/day; Weight Used for Protein Requirements: [place] Fluid (ml/day): per MD Recommendations; Weight Used for Fluid Requirements: [place] Nutrition Related Findings: Wu = 21, skin intact, +I/O, active bowel sounds, lives with spouse [employer] SCI[employer], plans for OR today for sigmoidectomy and possible small bowel resection Wounds: None Current Nutrition Therapies: Diet NPO Effective Now Exceptions are: Sips with Meds Anthropometric Measures: Height: 5' 11 (180.3 cm) Current Body Weight: 271 lb (122.9 kg)(06/26) Admission Body Weight: 271 lb (122.9 kg)(stated 06/26) Usual Body Weight: 285 lb (129.3 kg)(03/2020) [place] Body Weight: 172 lbs; % [place] Body Weight 157.6 % BMI: 37.8 Adjusted Body Weight: ; No Adjustment BMI Categories: Obese Class 2 (BMI 35.0 -39.9) Nutrition Diagnosis: Inadequate oral intake related to (admitted with abdominal pain, hx of crohn's and recurrent diverticulitis with acute complicated diverticulitis (hinchey 1) with a small pericolonic fluid collection) as evidenced by NPO or clear liquid status due to medical condition(OR today for sigmoidectomy andpossible small bowel resection) Nutrition Interventions: Food and/or Nutrient Delivery: Continue NPO Coordination of Nutrition Care: Continued Inpatient Monitoring Goals: Pt will receive optimal nutrition within 72 hours of admit if medically feasible. Nutrition Monitoring and Evaluation: Food/Nutrient Intake Outcomes: Diet Advancement/Tolerance Physical Signs/Symptoms Outcomes: Biochemical Data, GI Status, Fluid Status or Edema, Weight, Skin,Nutrition Focused Physical Findings Discharge Planning: Too soon to determine Contact: pager x [phone] * Deidre Ruano MD - 06/28/2020 8:43 AM EDT Department of Surgery Surgical Service 3 Daily Progress Note PATIENT NAME: Ruthie Castillo : 1990 ATTENDING PHYSICIAN: Spencer Fonseca MD ADMIT DATE: 06/26/2020 TODAY'S DATE: 06/28/2020 SUBJECTIVE No acute events overnight. Tolerated bowel prep, had some nausea. No vomiting. Passing flatus and have loose clear stool. Complains LLQ abdominal pain OBJECTIVE VITALS: BP 129/67 Pulse 63 Temp 96 F (35.6 C) (Temporal) Resp 18 Ht 5' 11 (1.803 m) Wt 271 lb (122.9 kg) SpO2 98% BMI 37.80 kg/m PHYSICAL EXAM: CONSTITUTIONAL: NAD, A&O X3. CHEST: Resp effort easy and unlabored ABDOMEN: soft, non-distended, LLQ TTP, Peritoneal signs absent INTAKE/OUTPUT: Date 06/28/20 0000 - 06/28/20 2359 Shift [id number] 6113-8824 4747-1526 24 Hour Total INTAKE P.O.(mL/kg/hr) 350(0.4) 350 I.V.(mL/kg) 1250(10.2) 1250(10.2) Shift Total(mL/kg) 1600(13) 1600(13) OUTPUT Urine(mL/kg/hr) 550(0.6) 550 Shift Total(mL/kg) 550(4.5) 550(4.5) Weight (kg) 122.9 122.9 122.9 122.9 I/O last 3 completed shifts: In: 1600 [P.O.:350; I.V.:1250] Out: 951 [Urine:950; Stool:1] No intake/output data recorded. Data Recent Labs 06/26/20 1302 06/27/20 0058 06/28/20 0101 WBC 12.1* 12.6* 9.9 HGB 13.8 13.9 14.8 HCT 41.5 41.0 42.7 PLT 198 212 249 Recent Labs 06/26/20 1302 06/27/20 0058 06/28/20 0101 NA 140 137 137 K 4.0 3.5 4.0 CL 106 102 101 CO2 24 23 22 BUN 8 8 9 CREATININE 0.83 0.78 0.76 GLUCOSE 77 72 78 Recent Labs 06/26/20 1302 AST 27 ALT 27 BILITOT 2.2* ALKPHOS 54 Imaging Pertinent imaging reviewed. Current Inpatient Medications Current Facility-Administered Medications: dextrose 5 % and 0.45 % NaCl with KCl 20 mEq infusion, ,Intravenous, Continuous gabapentin (NEURONTIN) capsule 300 mg, 300 mg, Oral, BID hydrOXYzine (VISTARIL) capsule 50 mg, 50 mg, Oral, Q6H PRN sodium chloride flush 0.9 % injection 10 mL, 10 mL, Intravenous, 2 times per day sodium chloride flush 0.9 % injection 10 mL, 10 mL, Intravenous, PRN ondansetron (ZOFRAN-ODT) disintegrating tablet 4 mg, 4 mg, Oral, Q8H PRN OR ondansetron (ZOFRAN) injection 4 mg, 4 mg, Intravenous, Q6H PRN [Held by provider] enoxaparin (LOVENOX) injection 40 mg, 40 mg, Subcutaneous, Daily piperacillin-tazobactam (ZOSYN) 3.375 g in dextrose 50 mL IVPB extended infusion (premix), 3.375 g,Intravenous, Q8H acetaminophen (TYLENOL) tablet 650 mg, 650 mg, Oral, Q4H PRN HYDROmorphone (DILAUDID) injection 0.25 mg, 0.25 mg, Intravenous, Q3H PRN OR HYDROmorphone (DILAUDID) injection 0.5 mg, 0.5 mg, Intravenous, Q3H PRN oxyCODONE-acetaminophen (PERCOCET) 5-325 MG per tablet 1 tablet, 1 tablet, Oral, Q4H PRN OR oxyCODONE-acetaminophen (PERCOCET) 5-325 MG per tablet 2 tablet, 2 tablet, Oral, Q4H PRN ASSESSMENT AND PLAN 30 y.o. male with hx of crohn's and recurrent diverticulitis with acute complicated diverticulitis (hinchey 1) with a small pericolonic fluid collection -plan for OR today for sigmoidectomy and possible small bowel resection -NPO -IVFs -consent obtained Deidre Ruano MD 06/28/2020 8:43 AM * Luiz Franklin MD - 06/27/2020 8:21 AM EDT Department of Surgery Surgical Service 3 Daily Progress Note PATIENT NAME: Ruthie Castillo : 1990 ATTENDING PHYSICIAN: Spencer Fonseca MD ADMIT DATE: 06/26/2020 TODAY'S DATE: 06/27/2020 SUBJECTIVE No acute events overnight. Afebrile, hemodynamically stable. Abdominal pain controlled. No nausea or vomiting. Imaging reviewed with radiologist, not amenable to drain placement, but could be accessed for CT-guided for aspiration. OBJECTIVE VITALS: BP 126/68 Pulse 58 Temp 97.8 F (36.6 C) (Temporal) Resp 16 Ht 5' 11 (1.803 m) Wt271 lb (122.9 kg) SpO2 97% BMI 37.80 kg/m PHYSICAL EXAM: CONSTITUTIONAL: NAD, A&O X3. CHEST: Resp effort easy and unlabored ABDOMEN: soft, non-distended, LLQ TTP, Peritoneal signs absent INTAKE/OUTPUT: Date 06/27/20 0000 - 06/27/20 2359 Shift 7402-5406 4195-8625 1838-8099 24 Hour Total INTAKE I.V.(mL/kg) 321(2.6) 321(2.6) Shift Total(mL/kg) 321(2.6) 321(2.6) OUTPUT Urine(mL/kg/hr) 475(0.5) 475 Shift Total(mL/kg) 475(3.9) 475(3.9) Weight (kg) 122.9 122.9 122.9 122.9 I/O last 3 completed shifts: In: 321 [I.V.:321] Out: 475 [Urine:475] No intake/output data recorded. Data Recent Labs 06/26/20 1302 06/27/20 0058 WBC 12.1* 12.6* HGB 13.8 13.9 HCT 41.5 41.0 PLT 198 212 Recent Labs 06/26/20 1302 06/27/20 0058 NA 140 137 K 4.0 3.5 CL 106 102 CO2 24 23 BUN 8 8 CREATININE 0.83 0.78 GLUCOSE 77 72 Recent Labs 06/26/20 1302 AST 27 ALT 27 BILITOT 2.2* ALKPHOS 54 Imaging Pertinent imaging reviewed. Current Inpatient Medications Current Facility-Administered Medications: sodium chloride flush 0.9 % injection 10 mL, 10 mL, Intravenous, 2 times per day sodium chloride flush 0.9 % injection 10 mL, 10 mL, Intravenous, PRN ondansetron (ZOFRAN-ODT) disintegrating tablet 4 mg, 4 mg, Oral, Q8H PRN OR ondansetron (ZOFRAN) injection 4 mg, 4 mg, Intravenous, Q6H PRN [Held by provider] enoxaparin (LOVENOX) injection 40 mg, 40 mg, Subcutaneous, Daily piperacillin-tazobactam (ZOSYN) 3.375 g in dextrose 50 mL IVPB extended infusion (premix), 3.375 g,Intravenous, Q8H acetaminophen (TYLENOL) tablet 650 mg, 650 mg, Oral, Q4H PRN HYDROmorphone (DILAUDID) injection 0.25 mg, 0.25 mg, Intravenous, Q3H PRN OR HYDROmorphone (DILAUDID) injection 0.5 mg, 0.5 mg, Intravenous, Q3H PRN oxyCODONE-acetaminophen (PERCOCET) 5-325 MG per tablet 1 tablet, 1 tablet, Oral, Q4H PRN OR oxyCODONE-acetaminophen (PERCOCET) 5-325 MG per tablet 2 tablet, 2 tablet, Oral, Q4H PRN lactated ringers infusion, , Intravenous, Continuous ASSESSMENT AND PLAN 30 y.o. male with hx of crohn's and recurrent diverticulitis with acute complicated diverticulitis (hinchey 1) with a small pericolonic fluid collection -Discussed with IR this AM that fluid collection is accessible for aspiration, but not large enoughfor drain placement; will consider role for aspiration -Continue zosyn -NPO; IVF -OOB/ambulate/Encourage IS -pain control prn -DVT ppx w subq lovenox & SCDs Luiz Franklin MD 06/27/2020 8:21 AM Associated attestation - Spencer Fonseca MD - 06/27/2020 5:46 PM EDT Attending Supervising Physician's Attestation Statement I performed a history and physical examination of the patient and discussed the findings and management with the resident physician. I reviewed and agree with the findings and plan as documented withthe exception of the following changes/additions. Date of service is 06/27/20 He has had multiple admissions. She has had improvement of his Crohn's disease with Humira, but hashad recurrence, diverticulitis, Crohn's disease in that area cannot be ruled out. Even in between hospital visit, he is having significant symptoms. I discussed with him the surgical options which would likely entail resection of his terminal ileum as well as a sigmoid colon resection, likely with a temporary diversion. He is agreeable to this. Details and risks of surgery are discussed includingthe risks of: bleeding, infection, abscess, anastomotic leak, possible need for re-operation or colostomy, bowel injury, ureteral injury, vascular or nerve injury, prolonged healing, wound problems, a nd expected functional results. He indicates understanding and wishes to proceed with surgery. Physical Exam: Vital Signs: BP (!) 119/56 Pulse 79 Temp 97 F (36.1 C) (Temporal) Resp 18 Ht 5' 11 (1.803 m) Wt 271 lb (122.9 kg) SpO2 98% BMI 37.80 kg/m Gen: alert, oriented, no acute distress Eyes: normal conjunctivae; no jaundice; PERRL ENMT: normal external ears and nose; grossly normal hearing Neck: supple; no tracheal deviation; no gross thyromegaly Resp: normal respiratory effort; no chest wall tenderness CV: regular rate/rhythm; no LE edema Abd: soft, tender lower abdomen, non-distended; no hernias MSI: no clubbing or cyanosis; extremity strength and ROM grossly normal Psych: A&Ox3; appropriate judgement documented in this encounter* Gauri Zamorano APRN - CORPORATE LICENSED BROKER - 08/15/2020 2:25 PM EST Wound Care CORPORATE LICENSED BROKER (EXERCISE PHYSIOLOGIST) Consult Note Reason for Consult: Follow up colostomy care and wound vac change CHIEF COMPLAINT: Stoma NHSW abdomen History Obtained From: patient, electronic medical record HISTORY OF PRESENT ILLNESS: The patient is a 30 y.o. male who presents with colostomy and open abdominal surgical wound is being followed up for change of vac and ostomy. Past Medical History: Diagnosis Date ADHD Bipolar disorder (HCC) 11/29/2009 Crohn's disease (HCC) Diverticulitis GERD (gastroesophageal reflux disease) IBD (inflammatory bowel disease) 2019 Intermittent explosive disorder Multiple personality disorder (HCC) DYLAN (obstructive sleep apnea) 08/09/2020 PTSD (post-traumatic stress disorder) Spermatocele 07/12/2014 Past Surgical History: Procedure Laterality Date COLONOSCOPY 11/12/2018 at [facility] , normal .colonoscopy, by Dr Raffaele Cordero COLONOSCOPY 2015 At [place] , [facility] pt normal colonscopy FOOT SURGERY 2009 ILEOSTOMY OR JEJUNOSTOMY 06/2020 TESTICLE SURGERY 2013 Current Medications: Current Facility-Administered Medications: polyethylene glycol (GLYCOLAX) packet 17 g, 17 g, Oral, Daily ipratropium-albuterol (DUONEB) nebulizer solution 1 ampule, 1 ampule, Inhalation, TID oxyCODONE (ROXICODONE) immediate release tablet 5 mg, 5 mg, Oral, Q4H PRN OR oxyCODONE (ROXICODONE) immediate release tablet 10 mg, 10 mg, Oral, Q4H PRN acetaminophen (TYLENOL) tablet 1,000 mg, 1,000 mg, Oral, 3 times per day ketorolac (TORADOL) injection 30 mg, 30 mg, Intravenous, Q6H hydrOXYzine (VISTARIL) capsule 50 mg, 50 mg, Oral, Q6H PRN tiZANidine (ZANAFLEX) tablet 4 mg, 4 mg, Oral, TID gabapentin (NEURONTIN) capsule 100 mg, 100 mg, Oral, TID sodium chloride flush 0.9 % injection 10 mL, 10 mL, Intravenous, 2 times per day sodium chloride flush 0.9 % injection 10 mL, 10 mL, Intravenous, PRN enoxaparin (LOVENOX) injection 40 mg, 40 mg, Subcutaneous, Daily HYDROmorphone (DILAUDID) injection 0.5 mg, 0.5 mg, Intravenous, Q3H PRN OR HYDROmorphone (DILAUDID) injection 1 mg, 1 mg, Intravenous, Q3H PRN ondansetron (ZOFRAN) injection 4 mg, 4 mg, Intravenous, Q6H PRN Allergies: Bee venom; Beta adrenergic blockers; Dextromethorphan hbr; Doxylamine; Mushroom extract complex; Nyquil hbp cold & flu [[id number]]; Pseudoephedrine; Dextromethorphan;and Poison mimi extract Social History: TOBACCO: reports that he has been smoking. He started smoking about 11 years ago. He has been smoking about 0.50 packs per day. He has never used smokeless tobacco. Family History: Problem Relation Age of Onset Coronary Art Dis Mother Hypertension Mother Stroke Mother Inflam Bowel Dis Father Hypertension Father Crohn's Disease Father Crohn's Disease Brother Colon Cancer Maternal Grandfather Inflam Bowel Dis Paternal Aunt REVIEW OF SYSTEMS: Review of Systems Constitutional: Positive for fatigue. Respiratory: Positive for shortness of breath. Cardiovascular: Positive for chest pain. Gastrointestinal: Positive for abdominal pain. Skin: Positive for wound. PHYSICAL EXAM: Vitals: BP (!) 152/86 Pulse 83 Temp 96.5 F (35.8 C) (Temporal) Resp 18 Ht 5' 11 (1.803 m) SpO2 98% BMI 33.47 kg/m Physical Exam Constitutional: Appearance: He is obese. He is ill-appearing. HENT: Head: Normocephalic and atraumatic. Cardiovascular: Rate and Rhythm: Normal rate. Pulmonary: Effort: Pulmonary effort is normal. Abdominal: Tenderness: There is abdominal tenderness. Skin: Comments: RLQ ostomy 35mm round pink , moist , taut, lumen centered, pouch intact. Scant brown , serosang drainage in pouch. No gas noted. Mid abdomen NPWT in place dressing intact. Machine functioning. Neurological: Mental Status: He is alert. Psychiatric: Mood and Affect: Mood normal. Behavior: Behavior normal. Abdomen non healing surgical wound measures approximately 17 x 8 x 5, red viable tissues, moderate amount of serosanguinous drainage. DATA: CBC with Differential: Lab Results Component Value Date WBC 6.1 08/15/2020 WBC 7.8 01/30/2016 RBC 3.78 08/15/2020 HGB 11.1 08/15/2020 HCT 33.2 08/15/2020 PLT 310 08/15/2020 MCV 87.7 08/15/2020 MCH 29.4 08/15/2020 MCHC 33.5 08/15/2020 RDW 13.7 08/15/2020 SEGSPCT 62.5% 01/30/2016 LYMPHOPCT 12.0 08/14/2020 MONOPCT 4 08/15/2020 MONOPCT 5.7% 01/30/2016 BASOPCT 0 08/15/2020 BASOPCT 0.4% 01/30/2016 MONOSABS 0.2 08/15/2020 MONOSABS 0.4 01/30/2016 LYMPHSABS 1.1 08/15/2020 LYMPHSABS 1.8 01/30/2016 EOSABS 0.1 08/15/2020 EOSABS 0.6 01/30/2016 BASOSABS 0.0 08/15/2020 BASOSABS <0.1 01/30/2016 IMPRESSION/RECOMMENDATIONS: 1. RLQ abdomen Colostomy 2. Midline non healing surgical wound- VAC changed today with black foam. 3. Nutritional support 4. Follow up on Saturday for wound and ostomy change, if patient still in hospital 5. Follow up outpatient wound ostomy clinic after discharge * Naya Valdez RN - 08/15/2020 2:24 PM EST Discharge instructions given with good verbal understanding. KCI wound vac on, pt voiced good understanding. * Kristen Strong MS, RD, LD - 08/15/2020 12:20 PM EST Comprehensive Nutrition Assessment Type and Reason for Visit: Reassess Nutrition Recommendations/Plan: 1. Continue with General diet 2. Per MNT provide wound healing supplement (Onesimo) with lunch for patient to trial. 3. Provided samples of Onesimo and Ensure Max for home use 4. Encouraged adequate po/protein intake after discharge 5. RD continue to monitor overall nutritional status and follow up weekly Nutrition Assessment: Patient with colon perforation s/p ex lap, sigmoid colectomy, end colostomy, loop ileostomy takedown, and wound VAC application 08/09. Tolerating General diet,ostomy appliance with stool and gas. Patient reports he is eating well, probable discharge home today. Would like to try Onesimo supplement while here. Will provide Onesimo with lunch tray as well as samples of Onesimo and Ensure Max supplements for home use. Malnutrition Assessment: Malnutrition Status: Severe malnutrition (Initial RD assessment) Context: Acute Illness Nutrition Related Findings: +bowel sounds; no edema noted; ileostomy (+output); Wu 20; +I&O; +wound vac Wounds: Surgical Incision, Wound Vac Anthropometric Measures: Height: 5' 11 (180.3 cm) Current Body Weight: 242 lb 8 oz (110 kg)(3 weeks ago at home) Admission Body Weight: 240 lb (108.9 kg)(stated) Usual Body Weight: 285 lb (129.3 kg)(04/27/20) [place] Body Weight: 172 lbs; % [place] Body Weight 141 % BMI: 33.8 Nutrition Interventions: Food and/or Nutrient Delivery: Continue Current Diet, Start Oral Nutrition Supplement Coordination of Nutrition Care: Continue to monitor while inpatient Nutrition Monitoring and Evaluation: Food/Nutrient Intake Outcomes: Food and Nutrient Intake, Supplement Intake Physical Signs/Symptoms Outcomes: Biochemical Data, GI Status, Fluid Status or Edema, Skin, Weight Discharge Planning: Continue Oral Nutrition Supplement, Continue current diet Contact: pager [phone] * Ranulfo Branham MD - 08/15/2020 6:57 AM EST Department of Surgery - Progress Note - Surg 3 PATIENT NAME: Ruthie Castillo : 1990 ATTENDING PHYSICIAN: Spencer Fonseca MD ADMIT DATE: 08/09/2020 TODAY'S DATE: 08/15/2020 SUBJECTIVE No acute events overnight. AVSS. Pain well controlled Patient tolerated his general diet. Pain is well controlled. Denies nausea or vomiting. He continues to have stool and gas out of his ostomy. OBJECTIVE VITALS: BP (!) 156/105 Pulse 82 Temp 97.5 F (36.4 C) (Temporal) Resp 20 Ht 5' 11 (1.803 m) SpO2 98% BMI 33.47 kg/m PHYSICAL EXAM: CONSTITUTIONAL: NAD, A&O X3. CV: Regular rate CHEST: Resp effort easy and unlabored ABDOMEN: Soft, non-distended, appropriately tender, midline wound vac in place, stoma pink and viable, ostomy appliance with stool and gas SKIN: Warm and dry INTAKE/OUTPUT: Date 08/15/20 0000 - 08/15/20 2359 Shift 4817-8366 6890-5948 4690-1361 24 Hour Total INTAKE P.O. 600 600 I.V. 750 750 Shift Total 1350 1350 OUTPUT Urine 500 500 Drains 25 25 Shift Total 525 525 Weight (kg) I/O last 3 completed shifts: In: 2366 [P.O.:1250; I.V.:1116] Out: 1850 [Urine:1100; Drains:25; Stool:725] I/O this shift: In: 1350 [P.O.:600; I.V.:750] Out: 525 [Urine:500; Drains:25] Data Recent Labs 08/13/2032608/14/20 0504 08/15/20 0439 WBC 5.8 6.6 6.1 HGB 10.0* 10.6* 11.1* HCT 30.0* 31.7* 33.2* PLT 224 258 310 Recent Labs 08/13/2032608/14/20 0504 08/15/20 0439 NA 138 139 141 K 3.5 3.6 3.5 CL 106 106 105 CO2 25 23 25 BUN 11 10 13 CREATININE 0.91 0.78 0.81 GLUCOSE 87 81 83 ASSESSMENT AND PLAN 30-year-old male with colon perforation s/p ex lap, sigmoid colectomy, end colostomy, loop ileostomy takedown, and wound VAC application 08/09. Patient is doing well post-operatively. - Continue general diet - saline lock - Will give a dose of miralax - Pain control with scheduled Tylenol / Toradol / Neurontin. Oxycodone/Dilaudid PRN - Abx ended 08/13 - Home medications resumed - Incentive spirometry / DuoNebs - Abdominal binder - Activity as tolerated / Ambulate - DVT ppx: SCDs / Lovenox - anticipate discharge today. Home care for wound vac needed * Aylin Del Rosario MD - 08/14/2020 8:34 AM EST Department of Surgery - Progress Note - Surg 3 PATIENT NAME: Ruthie Castillo : 1990 ATTENDING PHYSICIAN: Spencer Fonseca MD ADMIT DATE: 08/09/2020 TODAY'S DATE: 08/14/2020 SUBJECTIVE No acute events overnight. AVSS. Pain well controlled No nausea or vomiting. Nausea from yesterday resolved. States he is very hungry. Passing gas per colostomy and he started having stool out yesterday. Patient is burping ostomy independently. Voiding without difficulty. Ambulatory yesterday. OBJECTIVE VITALS: BP (!) 147/92 Pulse 84 Temp 97.9 F (36.6 C) (Temporal) Resp 20 Ht 5' 11 (1.803 m) SpO2 94% BMI 33.47 kg/m PHYSICAL EXAM: CONSTITUTIONAL: NAD, A&O X3. CV: Regular rate CHEST: Resp effort easy and unlabored ABDOMEN: Soft, non-distended, appropriately tender, midline wound vac in place, stoma pink and viable, ostomy appliance with bowel sweat and gas SKIN: Warm and dry INTAKE/OUTPUT: Date 08/14/20 0000 - 08/14/20 2359 Shift 8873-3334 2556-1478 0991-5348 24 Hour Total INTAKE P.O. 300 300 I.V. 560 560 Shift Total 860 860 OUTPUT Urine 400 400 Drains 0 0 Stool 200 200 Shift Total 600 600 Weight (kg) I/O last 3 completed shifts: In: 2632.5 [P.O.:1260; I.V.:1272.5; IV Piggyback:100] Out: 2165 [Urine:1740; Drains:25; Stool:400] No intake/output data recorded. Data Recent Labs 08/12/2023208/13/2032608/14/20 0504 WBC 8.7 5.8 6.6 HGB 9.6* 10.0* 10.6* HCT 28.8* 30.0* 31.7* PLT 260 224 258 Recent Labs 08/12/2023208/13/2032608/14/20 0504 NA 142 138 139 K 3.7 3.5 3.6 CL 105 106 106 CO2 27 25 23 BUN 14 11 10 CREATININE 0.98 0.91 0.78 GLUCOSE 72 87 81 ASSESSMENT AND PLAN 30-year-old male with colon perforation s/p ex lap, sigmoid colectomy, end colostomy, loop ileostomy takedown, and wound VAC application 08/09 - Advance to general diet, encouraged patient to self regulate. - saline lock - Pain control with scheduled Tylenol / Toradol / Neurontin. Oxycodone/Dilaudid PRN - Abx ended 08/13 - Home medications resumed - Incentive spirometry / DuoNebs - Abdominal binder - Activity as tolerated / Ambulate - DVT ppx: SCDs / Lovenox - anticipate discharge tomorrow Ranulfo Branham MD Attending Supervising Physician s Attestation Statement I saw and evaluated the patient. I discussed the findings and plans with resident physician and agree as documented in his note . * Alyin Del Rosario MD - 08/13/2020 10:02 AM EST Department of Surgery - Progress Note - Surg 3 PATIENT NAME: Ruthie Castillo : 1990 ATTENDING PHYSICIAN: Spencer Fonseca MD ADMIT DATE: 08/09/2020 TODAY'S DATE: 08/13/2020 SUBJECTIVE No acute events overnight. AVSS. Pain well controlled No nausea or vomiting. Passing gas per colostomy. No stool. Patient is burping ostomy independently. Voiding without difficulty. Ambulatory yesterday. Patient reports some nausea this morning after clear liquids. OBJECTIVE VITALS: BP (!) 141/85 Pulse 86 Temp 97.2 F (36.2 C) (Temporal) Resp 20 Ht 5' 11 (1.803 m) SpO2 95% BMI 33.47 kg/m PHYSICAL EXAM: CONSTITUTIONAL: NAD, A&O X3. CV: Regular rate CHEST: Resp effort easy and unlabored ABDOMEN: Soft, non-distended, appropriately tender, midline wound vac in place, stoma pink and viable, ostomy appliance with bowel sweat and gas SKIN: Warm and dry INTAKE/OUTPUT: Date 08/13/20 0000 - 08/13/20 2359 Shift 6056-4632 5212-2306 6472-9117 24 Hour Total INTAKE IV Piggyback 50 50 Shift Total 50 50 OUTPUT Urine 600 600 Shift Total 600 600 Weight (kg) I/O last 3 completed shifts: In: 1110 [P.O.:1060; IV Piggyback:50] Out: 1150 [Urine:1100; Drains:50] No intake/output data recorded. Data Recent Labs 08/11/203408/11/20 0908/12/2023208/13/207 WBC 8.9 -- 8.7 5.8 HGB 10.9* 11.1* 9.6* 10.0* HCT 32.4* 33.3* 28.8* 30.0* PLT 209 -- 260 224 Recent Labs 08/11/203408/12/203 08/13/20 0327 NA 138 142 138 K 3.9 3.7 3.5 CL 103 105 106 CO2 28 27 25 BUN 14 14 11 CREATININE 0.84 0.98 0.91 GLUCOSE 122* 72 87 ASSESSMENT AND PLAN 30-year-old male with colon perforation s/p ex lap, sigmoid colectomy, end colostomy, loop ileostomy takedown, and wound VAC application 08/09 - Passing gas per colostomy. Patient is having some nausea so we will place him on 1L CLD restriction - Maintenance IVF 75cc/H - Pain control with scheduled Tylenol / Toradol / Neurontin. Dilaudid PRN - Zosyn ends today - Home medications resumed - Incentive spirometry / DuoNebs - Abdominal binder - Activity as tolerated / Ambulate - DVT ppx: SCDs / Lovenox Ranulfo Branham MD Attending Supervising Physician s Attestation Statement I saw and evaluated the patient. I discussed the findings and plans with resident physician and agree as documented in his note . * Suraj Padron, [facility] - 08/13/2020 6:15 AM EST Patient Evaluation Form The patient is currently receiving Duo QID Points 0 1 2 3 4 Points Totals Pulmonary Status (-/+) History Smoking history < 20 pack years Smoking history > 20 pack years Pulmonary Disorder (acute or chronic) Severe or Chronic with Exacerbation 1 Surgical Status No Surgery Trach PEG General Surgery Lower Abdominal Thoracic or Upper Abdominal Thoracic with Pulmonary Disorder 2 Chest X-ray Clear None Ordered Chronic Changes CXR results Pending Infiltrates, atelectasis, pleural effusion, or edema Infiltrates in more than one lobe Infiltrate + Atelectasis, &/or pleural effusion 0 Respiratory Pattern Regular, RR = 12-20 Increased, RR = 21-25 SOUSA, irregular, or RR = 26-30 Decreased FEV1 or RR = 31-35 Severe SOB, used of of accessory muscles, or RR = > 35 0 Mental Status Alert, oriented, cooperative Confused, but follows commands Lethargic or un-able to follow commands Obtunded Comatose 0 Breath Sounds Clear to auscultation Decreased unilaterally or in bases only Decreased bilaterally Crackles or intermittent wheezes Wheezes 2 Cough Strong, spontaneous, & nonproductive Strong, spontaneous, & productive Weak, nonproductive Weak, productive or with wheezes No spontaneous cough or may require suctioning 1 Level of Activity Ambulatory Ambulatory with Assist Non-ambulatroy Paraplegic Quadriplegic 1 Triage 1 > 20 pts Triage 2 16-20 pts Triage 3 11- 15 pts Triage 4 6 - 10 pts Triage 5 0 - 5 pts TOTAL POINTS = 7 Triage Score = 4 SpO2 94% on RA Home Pulmonary Meds: None Changing Therapy to TID and PRN * Iris Jiang, OT - 08/12/2020 2:59 PM EST Occupational Therapy OT discharge note OT eval and treat order received and chart reviewed. Per PT eval pt modif indep amb and transfers. Pt donned/doffed slipper socks using figure 4 method indep'ly. No acute OT needs identified. Pt encouraged to increase strength and function with increased activity in room and amb in lopez. Discharge acute OT. Iris Jiang OTR/L * Gauri Zamorano APRN - CORPORATE LICENSED BROKER - 08/12/2020 10:30 AM EST Wound Care CORPORATE LICENSED BROKER (EXERCISE PHYSIOLOGIST) Consult Note Reason for Consult: Follow up colostomy care and wound vac change CHIEF COMPLAINT: Stoma NHSW abdomen History Obtained From: patient, electronic medical record HISTORY OF PRESENT ILLNESS: The patient is a 30 y.o. male who presents with colostomy and open abdominal surgical wound is being followed up for change of vac and ostomy. Past Medical History: Diagnosis Date ADHD Bipolar disorder (HCC) 11/29/2009 Crohn's disease (HCC) Diverticulitis GERD (gastroesophageal reflux disease) IBD (inflammatory bowel disease) 2019 Intermittent explosive disorder Multiple personality disorder (HCC) DYLAN (obstructive sleep apnea) 08/09/2020 PTSD (post-traumatic stress disorder) Spermatocele 07/12/2014 Past Surgical History: Procedure Laterality Date COLONOSCOPY 11/12/2018 at [facility] , normal .colonoscopy, by Dr Raffaele Cordero COLONOSCOPY 2015 At [place] , per pt normal colonscopy FOOT SURGERY 2009 ILEOSTOMY OR JEJUNOSTOMY 06/2020 TESTICLE SURGERY 2013 Current Medications: Current Facility-Administered Medications: dextrose 5 % and 0.45 % NaCl with KCl 20 mEq infusion, ,Intravenous, Continuous ketorolac (TORADOL) injection 30 mg, 30 mg, Intravenous, Q6H hydrOXYzine (VISTARIL) capsule 50 mg, 50 mg, Oral, Q6H PRN tiZANidine (ZANAFLEX) tablet 4 mg, 4 mg, Oral, TID gabapentin (NEURONTIN) capsule 100 mg, 100 mg, Oral, TID sodium chloride flush 0.9 % injection 10 mL, 10 mL, Intravenous, 2 times per day sodium chloride flush 0.9 % injection 10 mL, 10 mL, Intravenous, PRN enoxaparin (LOVENOX) injection 40 mg, 40 mg, Subcutaneous, Daily HYDROmorphone (DILAUDID) injection 0.5 mg, 0.5 mg, Intravenous, Q3H PRN OR HYDROmorphone (DILAUDID) injection 1 mg, 1 mg, Intravenous, Q3H PRN ondansetron (ZOFRAN) injection 4 mg, 4 mg, Intravenous, Q6H PRN piperacillin-tazobactam (ZOSYN) 3.375 g in dextrose 50 mL IVPB extended infusion (premix), 3.375 g,Intravenous, Q8H acetaminophen (OFIRMEV) infusion 1,000 mg, 1,000 mg, Intravenous, 3 times per day ipratropium-albuterol (DUONEB) nebulizer solution 1 ampule, 1 ampule, Inhalation, Q4H WA Allergies: Bee venom; Beta adrenergic blockers; Dextromethorphan hbr; Doxylamine; Mushroom extract complex; Nyquil hbp cold & flu [[id number]]; Pseudoephedrine; Dextromethorphan;and Poison mimi extract Social History: TOBACCO: reports that he has been smoking. He started smoking about 11 years ago. He has been smoking about 0.50 packs per day. He has never used smokeless tobacco. Family History: Problem Relation Age of Onset Coronary Art Dis Mother Hypertension Mother Stroke Mother Inflam Bowel Dis Father Hypertension Father Crohn's Disease Father Crohn's Disease Brother Colon Cancer Maternal Grandfather Inflam Bowel Dis Paternal Aunt REVIEW OF SYSTEMS: Review of Systems Constitutional: Positive for fatigue. Respiratory: Positive for shortness of breath. Cardiovascular: Positive for chest pain. Gastrointestinal: Positive for abdominal pain. Skin: Positive for wound. PHYSICAL EXAM: Vitals: BP (!) 150/87 Pulse 100 Temp 96 F (35.6 C) (Temporal) Resp 18 Ht 5' 11 (1.803 m) SpO2 94% BMI 33.47 kg/m Physical Exam Constitutional: Appearance: He is obese. He is ill-appearing. HENT: Head: Normocephalic and atraumatic. Cardiovascular: Rate and Rhythm: Normal rate. Pulmonary: Effort: Pulmonary effort is normal. Abdominal: Tenderness: There is abdominal tenderness. Skin: Comments: RLQ ostomy 35mm round pink , moist , taut, lumen centered, pouch intact. Scant brown , serosang drainage in pouch. No gas noted. Mid abdomen NPWT in place dressing intact. Machine functioning. Neurological: Mental Status: He is alert. Psychiatric: Mood and Affect: Mood normal. Behavior: Behavior normal. Abdomen non healing surgical wound measures approximately 17 x 8 x 5, red viable tissues, moderate amount of serosanguinous drainage. DATA: CBC with Differential: Lab Results Component Value Date WBC 8.7 08/12/2020 WBC 7.8 01/30/2016 RBC 3.24 08/12/2020 HGB 9.6 08/12/2020 HCT 28.8 08/12/2020 PLT 260 08/12/2020 MCV 88.7 08/12/2020 MCH 29.7 08/12/2020 MCHC 33.4 08/12/2020 RDW 14.3 08/12/2020 SEGSPCT 62.5% 01/30/2016 LYMPHOPCT 16.1 08/12/2020 MONOPCT 3.7 08/12/2020 MONOPCT 5.7% 01/30/2016 BASOPCT 0.3 08/12/2020 BASOPCT 0.4% 01/30/2016 MONOSABS 0.3 08/12/2020 MONOSABS 0.4 01/30/2016 LYMPHSABS 1.4 08/12/2020 LYMPHSABS 1.8 01/30/2016 EOSABS 0.2 08/12/2020 EOSABS 0.6 01/30/2016 BASOSABS 0.0 08/12/2020 BASOSABS <0.1 01/30/2016 IMPRESSION/RECOMMENDATIONS: 1. RLQ abdomen Colostomy - pouch changed today. 2. Midline non healing surgical wound- VAC changed today with black foam. 3. Nutritional support 4. Follow up on Saturday for wound and ostomy change * Louise Richards MD - 08/12/2020 7:19 AM EST Department of Surgery - Progress Note - Surg 3 PATIENT NAME: Ruthie Castillo : 1990 ATTENDING PHYSICIAN: Spencer Fonseca MD ADMIT DATE: 08/09/2020 TODAY'S DATE: 08/12/2020 SUBJECTIVE No acute events overnight. AVSS. Pain control significantly improved with Toradol. No nausea or vomiting. Passing gas per colostomy. No stool. Patient is burping ostomy independently. Voiding without difficulty. Ambulatory yesterday. OBJECTIVE VITALS: BP 127/73 Pulse 87 Temp 97 F (36.1 C) (Temporal) Resp 18 Ht 5' 11 (1.803 m) [id number]% BMI 33.47 kg/m PHYSICAL EXAM: CONSTITUTIONAL: NAD, A&O X3. CV: Regular rate CHEST: Resp effort easy and unlabored ABDOMEN: Soft, non-distended, appropriately tender, midline wound vac in place, stoma pink and viable, ostomy appliance with bowel sweat and gas SKIN: Warm and dry INTAKE/OUTPUT: Date 08/12/20 0000 - 08/12/20 2359 Shift 6647-3563 5250-5267 2971-5888 24 Hour Total INTAKE I.V. 1895 1895 IV Piggyback 100 100 Shift Total 1994 1994 OUTPUT Urine 400 400 Drains 5 5 Shift Total 405 405 Weight (kg) I/O last 3 completed shifts: In: 1994 [I.V.:1895; IV Piggyback:100] Out: 1464 [Urine:1425; Drains:40] No intake/output data recorded. Data Recent Labs 08/10/2012708/11/20 0035 08/11/20 0927 08/12/20232 WBC 8.1 8.9 -- 8.7 HGB 15.3 10.9* 11.1* 9.6* HCT 45.7 32.4* 33.3* 28.8* PLT 293 209 -- 260 Recent Labs 08/10/2012708/10/20 0655 08/11/203408/12/20 0233 NA 137 -- 138 142 K 5.6* 4.6 3.9 3.7 CL 107 -- 103 105 CO2 17* -- 28 27 BUN 15 -- 14 14 CREATININE 0.87 -- 0.84 0.98 GLUCOSE 181* -- 122* 72 ASSESSMENT AND PLAN 30-year-old male with colon perforation s/p ex lap, sigmoid colectomy, end colostomy, loop ileostomy takedown, and wound VAC application 08/09 - Passing gas per colostomy. Advance to clear liquid diet as tolerated - Maintenance IVF 75cc/H - Pain control with scheduled IV Tylenol / Toradol / Neurontin. Dilaudid PRN - Plan to initiate oral pain medication when tolerating diet - Plan to discontinue Zosyn 08/13 - Hb 9.6 (11.1) (10.9). Monitor. - ASHWIN drain output 40cc/24H. Potential removal today - Home medications resumed - Incentive spirometry / DuoNebs - Abdominal binder - Wound VAC changes M/W/F. Plan for wound VAC change today - Activity as tolerated / Ambulate - DVT ppx: SCDs / Lovenox Louise Richards MD * Ranulfo Branham MD - 08/11/2020 7:01 AM EST Department of Surgery - Progress Note - Surg 3 PATIENT NAME: Ruthie Castillo : 1990 ATTENDING PHYSICIAN: Spencer Fonseca MD ADMIT DATE: 08/09/2020 TODAY'S DATE: 08/11/2020 SUBJECTIVE Patient doing well. He has abdominal pain. He denies fevers or chills. He denies nausea or vomiting. He has not had ostomy output. He is still feeling anxious but it is better than yesterday. He got into a chair yesterday. OBJECTIVE VITALS: BP 120/68 Pulse 87 Temp 99.5 F (37.5 C) (Temporal) Resp 18 Ht 5' 11 (1.803 m) SpO2 92% BMI 33.47 kg/m PHYSICAL EXAM: CONSTITUTIONAL: NAD, A&O X3. CV: Regular rate CHEST: Resp effort easy and unlabored ABDOMEN: Soft, non-distended, appropriately tender, midline wound vac in place, stoma pink and viable, ostomy appliance with bowel sweat SKIN: Warm and dry INTAKE/OUTPUT: Date 08/11/20 0000 - 08/11/20 2359 Shift 1354-2604 9261-5262 1254-8971 24 Hour Total INTAKE P.O. 50 50 I.V. 998 998 IV Piggyback 100 100 Shift Total 1148 1148 OUTPUT Urine 500 500 Drains 30 30 Stool 0 0 Shift Total 530 530 Weight (kg) I/O last 3 completed shifts: In: 2443 [P.O.:50; I.V.:2193; IV Piggyback:200] Out: 1780 [Urine:1625; Drains:155] No intake/output data recorded. Data Recent Labs 08/10/2012708/11/20 0035 WBC 8.1 8.9 HGB 15.3 10.9* HCT 45.7 32.4* PLT 293 209 Recent Labs 08/10/2012708/10/20 0655 08/11/20 0035 NA 137 -- 138 K 5.6* 4.6 3.9 CL 107 -- 103 CO2 17* -- 28 BUN 15 -- 14 CREATININE 0.87 -- 0.84 GLUCOSE 181* -- 122* ASSESSMENT AND PLAN 30-year-old male with colon perforation s/p ex lap, sigmoid colectomy, end colostomy, loop ileostomy takedown, and wound VAC application 08/09 - Recheck H/H at 8 am. NO evidence of bleeding at this time - Pain control with scheduled Tylenol / Neurontin. Dilaudid PRN - Continue IV Zosyn until 07/13 - NPO except meds. NS 100cc/H - Await bowel function for diet advancement - Home medications resumed - Incentive spirometry / Scheduled DuoNebs - Abdominal binder - Wound VAC changes M/W/F. Wound care consulted. - Up in chair, encourage ambulation - DVT ppx: SCDs / Lovenox * Baudilio Dumont DO - 08/11/2020 4:59 AM EST Patient's Hgb 10.9 from 15.3 BP 98/58 and HR 54. Vitals taken 20 min after Dilaudid per RN. I went to see the patient and talk to RN. He has been asymptomatic and hemodynamically stable all night perRN. Patient admits to diffuse, mild abdominal pain but no other issues. On exam, abdomen is soft and moderately tender in bilateral lower quadrants. ASHWIN drain with minimal serosanguinous fluid (60 cc output during shift per RN). Wound vac with minimal output. No signs of active bleeding. No need for intervention at this time. Continue to monitor vitals and for signs of bleeding. Ordered repeat H&H for 8am. Discussed with Dr. Montgomery and Dr. Agrawal. Baudilio Dumont D.O. General Surgery PGY-1 Pager: [phone] * Ayanna Macedo, JUANA - 08/10/2020 2:35 PM EST Wound Care consulted for wound VAC to midline abdominal wound. Pt ex lap, sigmoid colectomy, end colostomy, loop ileostomy takedown, and wound VAC application 08/09. [facility] resident and D/W Dr Branham regarding wound VAC dressing change. Dr Branham instructed to change the wound VAC dressing on Sunday 08/12 since the dressing was placed late yesterday evening. Dr Branham also instructed on removing olivia from wound VAC foam with the dressing change. Wound VAC dressing procedure and frequency explained to pt. Pt verbalized understanding and all questions answered. Wound VAC dressing well sealed at 125 mmHg continuous suction. Small amount of serosang drainage noted in old canister. Will plan for first wound VAC dressing Sunday 08/12. * Kristen Strong, MS, RD, LD - 08/10/2020 12:01 PM EST Comprehensive Nutrition Assessment Type and Reason for Visit: Initial, Positive Nutrition Screen(weight loss) Nutrition Recommendations/Plan: 1. Patient currently NPO, suggest begin nutrition within 72 hours. 2. If able to begin po diet, suggest clear liquid with goal of Low Fiber 3. Recommend slow diet progression with small frequent meals. 4. If unable to begin po diet and extended bowel rest indicated, may need to consider TPN 5. Suggest obtain current weight when able 6. RD continue to monitor overall nutritional status and follow up weekly Nutrition Assessment: Patient s/p ex lap, sigmoid colectomy, end colostomy, loop ileostomy takedown, and wound VAC application 08/09. Panic attack overnight. Patient removed NG tube.No nausea or vomiting since NG tube removal. Awaiting return of bowel function, No gas or stool per ileostomy. Patient in a lot of pain during RD visit. Reports prior to admission 'everything was going right through me' and also had decreased po intake due to same. Consumed a regular diet and was not drinking any oral nutritional supplements. Patient reports he weighed 242.8# at home 3 weeks ago and weighed 285# (04/27/20) during previous admission. RD unable to obtain accurate weight as wound vac hanging on end of bed. Malnutrition Assessment: Malnutrition Status: Severe malnutrition Context: Acute Illness Findings of the 6 clinical characteristics of malnutrition: Energy Intake: 1 - 75% or less of estimated energy requirements for 7 or more days Weight Loss: 7 - Greater than 7.5% over 3 months Body Fat Loss: No significant body fat loss Muscle Mass Loss: No significant muscle mass loss Fluid Accumulation: No significant fluid accumulation Athletic Agent Strength: Not Performed Estimated Daily Nutrient Needs: Energy (kcal): 4261-4739 (25-30); Weight Used for Energy Requirements: [place] Protein (g): 94-109 (1.2-1.4); Weight Used for Protein Requirements: [place] Fluid (ml/day): per MD; Nutrition Related Findings: hypoactive bowel sounds; ileostomy; -I&O; no edema noted; +wound vac; ASHWIN drain Wounds: Surgical Incision, Wound Vac Anthropometric Measures: Height: 5' 11 (180.3 cm) Current Body Weight: 242 lb 8 oz (110 kg)(3 weeks ago at home) Admission Body Weight: 240 lb (108.9 kg)(stated) Usual Body Weight: 285 lb (129.3 kg)(04/27/20) [place] Body Weight: 172 lbs; % [place] Body Weight 141 % BMI: 33.8 Nutrition Diagnosis: Severe malnutrition, In context of acute illness or injury related to altered GI function, altered GI structure as evidenced by poor intake prior to admission(>7.5% (14.9%) weight loss in 3 months) Nutrition Interventions: Food and/or Nutrient Delivery: Continue NPO, Start Oral Diet Coordination of Nutrition Care: Continue to monitor while inpatient Goals: Start nutrition within 72 hours Nutrition Monitoring and Evaluation: Food/Nutrient Intake Outcomes: Diet Advancement/Tolerance Physical Signs/Symptoms Outcomes: Biochemical Data, Diarrhea, GI Status, Fluid Status or Edema, Weight, Skin, Nutrition Focused Physical Findings, Hemodynamic Status Contact: pager [phone] * Senthil Ortega, PT - 08/10/2020 11:16 AM EST Physical Therapy Facility/Department: [facility] Initial Assessment NAME: Ruthie Castillo : 1990 Date of Service: 08/10/2020 Discharge Recommendations: Home with assist PRN PT Equipment Recommendations Equipment Needed: No Assessment Body structures, Functions, Activity limitations: Increased pain Assessment: Pt's mobility mostly limited by pain. Anticipate functional mobility will improve closeto baseline as pain is controlled. Anticipate discharge to home with assist as needed. No acute PT needed, encourage to ambulate as tolerate with staff. Prognosis: Good Decision Making: Low Complexity PT Education: PT Role Patient Education: walking with staff No Skilled PT: Safe to return home REQUIRES PT FOLLOW UP: No Activity Tolerance Activity Tolerance: Patient limited by pain Patient Diagnosis(es): The encounter diagnosis was Colon perforation (HCC). has a past medical history of ADHD, Bipolar disorder (HCC), Crohn's disease (HCC), Diverticulitis, GERD (gastroesophageal reflux disease), IBD (inflammatory bowel disease), Intermittent explosive disorder, Multiple personality disorder (HCC), DYLAN (obstructive sleep apnea), PTSD (post-traumatic stress disorder), and Spermatocele. has a past surgical history that includes Foot surgery (2008); Testicle surgery (2013); Colonoscopy(11/12/2018); Colonoscopy (2015); and ileostomy or jejunostomy (06/2020). Restrictions Restrictions/Precautions Restrictions/Precautions: Up as Tolerated Required Braces or Orthoses?: Yes Required Braces or Orthoses Other: Abdominal Binder Position Activity Restriction Other position/activity restrictions: wound vac Vision/Hearing Vision: Within Functional Limits Hearing: Within functional limits Subjective General Chart Reviewed: Yes Patient assessed for rehabilitation services?: Yes Family / Caregiver Present: No Diagnosis: Colon Perforation Follows Commands: Within Functional Limits General Comment Comments: s/p exploratory lap. sigmoid colectomy with end colostomy Subjective Subjective: Pt. laying in bed, agree with PT treatment. Pain Screening Patient Currently in Pain: Yes Pain Assessment Pain Assessment: 0-10 Pain Level: 8 Pain Type: Surgical pain Pain Location: Abdomen Functional Pain Assessment: Prevents or interferes some active activities and ADLs Non-Pharmaceutical Pain Intervention(s): Ambulation/Increased Activity;Repositioned;Distraction Vital Signs Patient Currently in Pain: Yes Orientation Orientation Overall Orientation Status: Within Normal Limits Social/Functional History Social/Functional History Lives With: Spouse Type of Home: Trailer Home Layout: One level Home Access: Stairs to enter without rails Entrance Stairs - Number of Steps: 3 Bathroom Shower/Tub: Tub/Shower unit Bathroom Toilet: Standard Bathroom Accessibility: Accessible Receives Help From: Family ADL Assistance: Independent Homemaking Assistance: Independent Homemaking Responsibilities: No Ambulation Assistance: Independent Transfer Assistance: Independent Active Director Corporate Security: Yes Mode of Transportation: Car Occupation: On disability Additional Comments: Independent Cognition Cognition Overall Cognitive Status: WNL Objective Observation/Palpation Posture: Fair Observation: wound vac, ASHWIN drain AROM RLE (degrees) RLE AROM: WFL AROM LLE (degrees) LLE AROM : WFL Strength RLE Strength RLE: WFL Strength LLE Strength LLE: WFL Tone RLE RLE Tone: Normotonic Tone LLE LLE Tone: Normotonic Motor Control Gross Motor?: WNL Sensation Overall Sensation Status: WNL Bed mobility Supine to Sit: Stand by assistance Scooting: Modified independent Transfers Sit to Stand: Modified independent Stand to sit: Modified independent Ambulation Ambulation?: Yes WB Status: no restriction More Ambulation?: No Ambulation 1 Surface: level tile Device: No Device Assistance: Modified Independent Gait Deviations: Increased XUAN Distance: 6 ft Comments: refused to walk farther due to pain. RN aware. Stairs/Curb Stairs?: No Balance Posture: Fair Sitting - Static: Good Sitting - Dynamic: Good Standing - Static: Good;- Standing - Dynamic: Good;- Plan Plan Times per week: eval only Safety Devices Type of devices: Left in chair, Call light within reach(N95 and faceshield) Restraints Initially in place: No G-Code OutComes Score AM-PAC Score AM-PAC Inpatient Mobility Raw Score : 20 (08/10/201115) AM-PAC Inpatient T-Scale Score : 47.67 (08/10/201115) Mobility Inpatient CMS 0-100% Score: 35.83 (08/10/201115) Mobility Inpatient CMS G-Code Modifier : CJ (08/10/201115) Goals Patient Goals Patient goals : Eval only Therapy Time Individual Concurrent Group Co-treatment Time In 1055 Time Out 1105 Minutes 10 Senthil Ortega, PT,GCS * Louise Richards MD - 08/10/2020 9:05 AM EST Department of Surgery - Progress Note - Surg 3 PATIENT NAME: Ruthie Castillo : 1990 ATTENDING PHYSICIAN: Spencer Fonseca MD ADMIT DATE: 08/09/2020 TODAY'S DATE: 08/10/2020 SUBJECTIVE Panic attack overnight. Patient removed NG tube. No nausea or vomiting since NG tube removal. Abdominal pain controlled. No gas or stool per colostomy. Oleary catheter in place. Not yet ambulatory. OBJECTIVE VITALS: BP (!) 156/87 Pulse 82 Temp 97 F (36.1 C) (Temporal) Resp 20 SpO2 96% PHYSICAL EXAM: CONSTITUTIONAL: NAD, A&O X3. CV: Regular rate CHEST: Resp effort easy and unlabored ABDOMEN: Soft, non-distended, appropriately tender, midline incision C/D/I with olivia, stoma pinkand viable, ostomy appliance with bowel sweat SKIN: Warm and dry INTAKE/OUTPUT: Date 08/10/20 - 08/10/20 2359 Shift 0510-5475 1988-4892 4590-6997 24 Hour Total INTAKE P.O. 60 60 I.V. 700 700 Shift Total 760 760 OUTPUT Urine 300 300 Emesis/NG output 0 0 Drains 250 250 Stool 0 0 Shift Total 550 550 Weight (kg) I/O last 3 completed shifts: In: 2059 [P.O.:60; I.V.:1999] Out: 2219 [Urine:1150; Drains:370; Blood:700] No intake/output data recorded. Data Recent Labs 08/10/20127 WBC 8.1 HGB 15.3 HCT 45.7 PLT 293 Recent Labs 08/10/20 01208/10/20 0655 NA 137 -- K 5.6* 4.6 CL 107 -- CO2 17* -- BUN 15 -- CREATININE 0.87 -- GLUCOSE 181* -- ASSESSMENT AND PLAN 30-year-old male with colon perforation s/p ex lap, sigmoid colectomy, end colostomy, loop ileostomy takedown, and wound VAC application 08/09 - Pain control with scheduled Tylenol / Neurontin. Dilaudid PRN - Continue IV Zosyn - NPO except meds. NS 100cc/H - Await bowel function for diet advancement - Home medications resumed - Incentive spirometry / Scheduled DuoNebs - Remove Oleary catheter - Abdominal binder - Wound VAC changes M/W/F. Wound care consulted. - Activity as tolerated / Ambulate. PT/OT. - DVT ppx: SCDs / Lovenox Louise Richards MD * Shivani Bravo RN - 08/10/2020 1:48 AM EST 0145 Patient having panic attack and pulled his NG. Refused to put another one. Dr Baudilio Dumont notified. * Kerry Horowitz RN - 08/09/2020 10:15 PM EST Report called to [id number]. Transport at bedside to take pt to room * Erik Villagomez RN - 08/09/2020 4:47 PM EST 911 on site and cancelled, pt to be transported by ENDO and [facility] staff to PACU for admit direct to surgery. ER Charge notified. * Erik Villagomez RN - 08/09/2020 4:35 PM EST Private transport 90 min ETA, 911 called, pt to be transported to ER, 10 min ETA. * Erik Villagomez RN - 08/09/2020 3:[address] fonseca, pt to be admitted directly for surgery, RN notified and calling for transport. * Spencer Fonseca MD - 08/09/2020 3:00 PM EST Flex Sig Proximal to the anastomosis was found ~10cm of necrotic sloughing colon; attempted to pass upper endoscope to identify proximal healthy bowel and small bowel was visualized. Suspect contained anastomotic leak now perforated freely into abdominal cavity. Immediately post procedure, pt with severe abd pain c/w perforation of anastomosis. OR notified, plan for emergent ex lap. Discussed with the non- healed/necrotic anastomosis and perforation and need for emergent surgery. * Erik Villagomez RN - 08/09/2020 3:00 PM EST Report given to ER charge nurse, Selena. documented in this encounter* Elizabeth Davison RN - 04/27/2020 5:[address] Ross regarding pt hysterically crying and balling himself up in the chair. He ripped his IV out and is refusing another one. He was initially talking about signing himself out, but his and I talked him out of that. Asked if they can come see him or give an order for something IM tocalm him down, possibly consult psych. Patient has a history of bipolar and intermittent explosive disorder per pt and his . documented in this encounter* Sophia Browning MD - 07/25/2019 12:01 PM EDT Hospitalist Progress Note 07/25/2019 12:01 PM Subjective: Admit Date: 07/24/2019 PCP: Usha Frazier DO Interval History: feels better Still with anxiety and abd pain No overnight issues. Denies chest pain, sob, Diet NPO Effective Now Exceptions are: Sips with Meds, Ice Chips Patient Vitals for the past 96 hrs (Last 3 readings): Weight 07/24/19 1430 262 lb (118.8 kg) Medications: sodium chloride 125 mL/hr at 07/24/19 2334 lisinopril 10 mg Oral Daily sodium chloride flush 10 mL Intravenous 2 times per day enoxaparin 40 mg Subcutaneous Daily methylPREDNISolone 60 mg Intravenous Q6H piperacillin-tazobactam 3.375 g Intravenous Q8H Recent Labs 07/25/19 003 WBC 12.0* HGB 15.3 PLT 239 Recent Labs 07/25/19 0039 NA 139 K 3.8 CL 104 CO2 25 BUN 10 CREATININE 0.80 GLUCOSE 158* Recent Labs 07/25/1938 AST 33 ALT 37 BILITOT 0.7 ALKPHOS 71 No results found for: TRIG, HDL, LDLCALC, CHOL No results for input(s): INR in the last 72 hours. No results for input(s): CKTOTAL, CKMB, TROPONINI in the last 72 hours. Objective: Vitals: BP (!) 119/56 Pulse 70 Temp 97.5 F (36.4 C) (Oral) Resp 16 Ht 6' (1.829 m) Wt 262lb (118.8 kg) SpO2 95% BMI 35.53 kg/m Pulse Ox: SpO2 Av % Min: 95 % Max: 95 % Supplemental O2: General appearance: Alert and cooperative with exam Lungs: clear to auscultation bilaterally Heart: regular rate and rhythm, S1, S2 normal, no murmur, click, rub or gallop Abdomen: soft diffuse tender Extremities: extremities normal, atraumatic, no cyanosis or edema Neurologic: No obvious focal neurologic deficits. Assessment Principal Problem: Crohn's colitis, other complication (HCC) Active Problems: PTSD (post-traumatic stress disorder) Multiple personality disorder (HCC) Crohn's disease (HCC) Bipolar disorder (HCC) Intermittent explosive disorder in adult Resolved Problems: * No resolved hospital problems. 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 Expresses abdominal pain which per patientis unchanged from yesterday but worse at the moment because he is late for his pain medication. Denies nausea overnight but has started having small movements, 2 overnight so far without evidence of blood. Scheduled Meds: sodium chloride flush 10 mL Intravenous 2 times per day enoxaparin 40 mg Subcutaneous Daily methylPREDNISolone 60 mg Intravenous Q6H piperacillin-tazobactam 3.375 g Intravenous Q8H Continuous Infusions: sodium chloride 125 mL/hr at 07/24/19 2334 Objective: BP (!) 119/56 Pulse 70 Temp 97.5 F (36.4 C) (Oral) Resp 16 Ht 6' (1.829 m) Wt 262 lb (118.8 kg) SpO2 95% BMI 35.53 kg/m No intake/output data recorded. GENERAL: Pleasant and NAD HEENT: NCAT, PERRLA, EOMI, Scleral anicteric. Oropharhynx clear with no erythema or exudate. Neck supple, no cervical LAD or thyromegaly. CV: RRR, NL S1/S2, no murmurs. Distal pulses palpable and equal b/l. LUNGS: CTA b/l. Normal percussion and palpation. No W/R/R. ABD: + BS, soft, tender, +guarding EXT: No C/C/E. No muscle atrophy. CBC: Recent Labs 07/25/1938 WBC 12.0* HGB 15.3 HCT 45.4 PLT 239 CMP: Recent Labs 07/25/1938 NA 139 K 3.8 CL 104 CO2 25 BUN 10 CREATININE 0.80 GLUCOSE 158* CALCIUM 9.8 HEPATIC: Recent Labs 07/25/1938 AST 33 ALT 37 BILITOT 0.7 ALKPHOS 71 LIPASE/AMYLASE: No results for input(s): AMYLASE, LIPASE in the last 72 hours. LACTATE: No results for input(s): LACTA in the last 72 hours. TROPONIN: No results for input(s): TROPONINI in the last 72 hours. BNP: No results for input(s): BNP in the last 72 hours. LIPIDS: No results for input(s): CHOL, HDL in the last 72 hours. Invalid input(s): LDLCALCU INR: No results for input(s): INR in the last 72 hours. Imaging: Mri Abdomen W Wo Contrast Result Date: 07/25/2019 Patient Name: RUTHIE CASTILLO ---MRI--- Exam Date/Time 07/24/2019 19:20:55 EDT Exam MRI Abdomen w/ + w/o Contrast Ordering Physician KULWINDER BISHOP Accession Number [id number] CPT4 Codes 77371 () Reason For Exam crohn flare, with enterovesicular fistulas Report MRI ABDOMEN WITHOUT AND WITH CONTRAST INCLUDING SMALL BOWEL MR ENTEROGRAPHY: CLINICAL INDICATION: FLAIR coronal with an intravesical fistula and scrotal pain TECHNIQUE: Following a fast of six hours, the patient ingested three 450 mL bottles of Volumen oral contrast. MRI sequences were performed including transaxial T2 fat suppression and coronal T2 fat suppression along with diffusion-weighted sequences through the abdomen and pelvis. Following administration of 20 mL gadolinium contrast,coronal multiphase dynamic T1 and transaxial T1 fat suppression sequences were performed through the abdomen and pelvis as well COMPARISON: CT from 05/12/2019 FINDINGS: Bowel findings: Within the lower mid pelvis is region of signal abnormality with specific configuration. There is T2 hyperintensitywith enhancement centered between a loop of small bowel along with segment of sigmoid colon. The process extends to the dome of the bladder as well. This is best delineated on sequence 15 image 43 and sequence 18 image 33 through 44. This entire region extends over dimension of approximately 4 cm. There is no wide communication between the bowel and bladder, but there is probably a thin communication. There is no surrounding fluid in the region. Remaining bowel loops throughout the abdomen and pelvis demonstrate no dilatation or regions of abnormal signal or significant wall thickening. The terminal ileum and cecum demonstrates no other abnormality. The appendix is normal Liver: Normal sizeand contour. No focal lesion. Biliary tree: Normal gallbladder. No biliary dilatation. Spleen: Normal Adrenals:Normal Pancreas: Homogeneous enhancement without mass or peripancreatic fluid. Kidneys: Symmetric contrast enhancement without mass or hydronephrosis Lymphadenopathy: None Aorta: Normal caliber Pelvis:No mass identified Visualized Osseous structures: Normal IMPRESSION: Region of abnormalsignal with spiculated-type configuration involving a distal small bowel loop along with a portion of the sigmoid colon and adjacent bladder and the lower mid pelvis, corresponding to focal region ofinvolvement of Crohn's disease. The fistula into the bladder is not readily appreciated, but there is likely a thin communication. Report Dictated on Workstation: [id number] --- Final --- Dictated: 07/25/2019 0:04 am Dictating Physician: MD SOLIS JEFFREY Signed Date and Time: 07/25/2019 0:10 am Signed by: MD SOLIS JEFFREY Transcribed Date and Time: 07/25/2019 0:04 PROBLEMS: Principal Problem: Crohn's colitis, other complication (HCC) Active Problems: PTSD (post-traumatic stress disorder) Multiple personality disorder (HCC) Crohn's disease (HCC) Bipolar disorder (HCC) Intermittent explosive disorder in adult Resolved Problems: * No resolved hospital problems. * IMPRESSION/PLAN: 1. Crohn's Flare with Enterovesicular fistulas with small abscess and micrperforation (per CT 2. Diverticula 3. UTI -Continue methylprednisolone q6 hr through weekend, plan for transition to po maintenance therapy after discussion with primary GI physician (Dr. Coburn) Saturday for options. -MRCP last night showing thin communication between the bowel and bladder consistent with small fistula, general surgery following for this finding, recommending medical management for optimization of inflammatory disease prior to surgical intervention, surgery plans to follow patient during admission -Continue Zosyn to further assist in optimization of inflammatory disease. -OK to advance diet with toleration if no surgical intervention is planned. -GI to continue to follow -Patient's anxiety appears worse, possibly exacerbated by IV steroids, states Ativan is not working. Will defer to primary for antianxiety medication recommendations Attending Supervising Physician's Attestation Statement I performed a history and physical examination on the patient and discussed the management with thenurse practitioner. I reviewed and agree with the findings and plan as documented in her note Overall improved; patient notes increased anxiety with steroids improved with ativan. I discussed clinical course and MRI findings with patient and his (by video facetime): unfortunately patientwas found to be Hepatitis B positive (inactive) which precludes TNF alpha inhibitor therapies. Long-term treatment plan will be reviewed with primary GI Dr. Coburn when she is assumes inpatient consultation service on Friday 07/27. * Chema Faye MD - 07/25/2019 7:39 AM EDT Department of Surgery Surgical Service - Surgery 3 Daily Progress Note PATIENT NAME: Ruthie Castillo : 1990 ATTENDING PHYSICIAN: Aaliyah Farley DO ADMIT DATE: 07/24/2019 TODAY'S DATE: 07/25/2019 SUBJECTIVE NAEON. Patient upright in bed when I walked in, in some apparent pain. Patient did get nausea afterpain meds, but is ok with zofran after. No vomiting. Passing only a little gas, no bowel movement in last 24 hours. Patient wanted clarification on plan for surgery and what we are going to do aboutall this . Patient was tearful towards the end of our conversation. ROS: Review of Systems Constitutional: Positive for appetite change. Negative for chills, diaphoresis and fever. HENT: Negative for congestion, nosebleeds, rhinorrhea and trouble swallowing. Eyes: Negative for pain, discharge, redness and visual disturbance. Respiratory: Negative for cough, choking, chest tightness, shortness of breath and wheezing. Cardiovascular: Negative for chest pain, palpitations and leg swelling. Gastrointestinal: Positive for abdominal pain, constipation, diarrhea and nausea. Negative for abdominal distention and vomiting. Endocrine: Negative for cold intolerance, heat intolerance, polyphagia and polyuria. Genitourinary: Negative for difficulty urinating, dysuria and frequency. Musculoskeletal: Negative for arthralgias and neck pain. Skin: Negative for color change and pallor. Neurological: Negative for dizziness, seizures and facial asymmetry. Hematological: Negative for adenopathy. Does not bruise/bleed easily. Psychiatric/Behavioral: Positive for dysphoric mood. Negative for behavioral problems, confusion and decreased concentration. OBJECTIVE VITALS: BP (!) 143/92 Pulse 64 Temp 97.5 F (36.4 C) (Oral) Resp 18 Ht 6' (1.829 m) Wt 262lb (118.8 kg) SpO2 98% BMI 35.53 kg/m PHYSICAL EXAM: Physical Exam Constitutional: He is oriented to person, place, and time. He appears well- developed and well-nourished. He appears distressed. HENT: Head: Normocephalic and atraumatic. Right Ear: External ear normal. Left Ear: External ear normal. Mouth/Throat: No oropharyngeal exudate. Eyes: Pupils are equal, round, and reactive to light. No scleral icterus. Neck: No JVD present. No tracheal deviation present. Cardiovascular: Normal rate, regular rhythm and normal heart sounds. Exam reveals no gallop and no friction rub. No murmur heard. Pulmonary/Chest: Effort normal and breath sounds normal. No respiratory distress. He has no wheezes. Abdominal: Soft. He exhibits no distension and no mass. There is tenderness. There is no rebound and no guarding. Musculoskeletal: He exhibits no edema, tenderness or deformity. Lymphadenopathy: He has no cervical adenopathy. Neurological: He is alert and oriented to person, place, and time. No cranial nerve deficit. Skin: Skin is warm and dry. Capillary refill takes less than 2 seconds. No erythema. Psychiatric: His speech is normal and behavior is normal. Judgment and thought content normal. His mood appears anxious. He exhibits a depressed mood. INTAKE/OUTPUT: No intake/output data recorded. No intake/output data recorded. Data Recent Labs 07/25/1938 WBC 12.0* HGB 15.3 HCT 45.4 PLT 239 Recent Labs 07/25/1938 NA 139 K 3.8 CL 104 CO2 25 BUN 10 CREATININE 0.80 GLUCOSE 158* Recent Labs 07/25/1938 AST 33 ALT 37 BILITOT 0.7 ALKPHOS 71 Imaging Mri Abdomen W Wo Contrast Result Date: 07/25/2019 Patient Name: RUTHIE CASTILLO ---MRI--- Exam Date/Time 07/24/2019 19:20:55 EDT Exam MRI Abdomen w/ + w/o Contrast Ordering Physician [id number] -KULWINDER CLAIRE Accession Number [id number] CPT4 Codes 92630 () Reason For Exam crohn flare, with enterovesicular fistulas Report MRI ABDOMEN WITHOUT AND WITH CONTRAST INCLUDING SMALL BOWEL MR ENTEROGRAPHY: CLINICAL INDICATION: FLAIR coronal with an intravesical fistula and scrotal pain TECHNIQUE: Following a fast of six hours, the patient ingested three 450 mL bottles of Volumen oral contrast. MRI sequences were performed including transaxial T2 fat suppression and coronal T2 fat suppression along with diffusion-weighted sequences through the abdomen and pelvis. Following administration of 20 mL gadolinium contrast,coronal multiphase dynamic T1 and transaxial T1 fat suppression sequences were performed through the abdomen and pelvis as well COMPARISON: CT from 05/12/2019 FINDINGS: Bowel findings: Within the lower mid pelvis is region of signal abnormality with specific configuration. There is T2 hyperintensitywith enhancement centered between a loop of small bowel along with segment of sigmoid colon. The process extends to the dome of the bladder as well. This is best delineated on sequence 15 image 43 and sequence 18 image 33 through 44. This entire region extends over dimension of approximately 4 cm. There is no wide communication between the bowel and bladder, but there is probably a thin communication. There is no surrounding fluid in the region. Remaining bowel loops throughout the abdomen and pelvis demonstrate no dilatation or regions of abnormal signal or significant wall thickening. The terminal ileum and cecum demonstrates no other abnormality. The appendix is normal Liver: Normal sizeand contour. No focal lesion. Biliary tree: Normal gallbladder. No biliary dilatation. Spleen: Normal Adrenals:Normal Pancreas: Homogeneous enhancement without mass or peripancreatic fluid. Kidneys: Symmetric contrast enhancement without mass or hydronephrosis Lymphadenopathy: None Aorta: Normal caliber Pelvis:No mass identified Visualized Osseous structures: Normal IMPRESSION: Region of abnormalsignal with spiculated-type configuration involving a distal small bowel loop along with a portion of the sigmoid colon and adjacent bladder and the lower mid pelvis, corresponding to focal region ofinvolvement of Crohn's disease. The fistula into the bladder is not readily appreciated, but there is likely a thin communication. Report Dictated on Workstation: [id number] --- Final --- Dictated: 07/25/2019 0:04 am Dictating Physician: MD SOLIS JEFFREY Signed Date and Time: 07/25/2019 0:10 am Signed by: MD SOLIS JEFFREY Transcribed Date and Time: 07/25/2019 0:04 Current Inpatient Medications Current Facility-Administered Medications: sodium chloride flush 0.9 % injection 10 mL, 10 mL, Intravenous, 2 times per day sodium chloride flush 0.9 % injection 10 mL, 10 mL, Intravenous, PRN magnesium hydroxide (MILK OF MAGNESIA) 400 MG/5ML suspension 30 mL, 30 mL, Oral, Daily PRN ondansetron (ZOFRAN) injection 4 mg, 4 mg, Intravenous, Q6H PRN enoxaparin (LOVENOX) injection 40 mg, 40 mg, Subcutaneous, Daily 0.9 % sodium chloride infusion, , Intravenous, Continuous HYDROmorphone (DILAUDID) injection 0.5 mg, 0.5 mg, Intravenous, Q3H PRN ondansetron (ZOFRAN) injection 4 mg, 4 mg, Intravenous, Q6H PRN methylPREDNISolone sodium (SOLU-MEDROL) injection 60 mg, 60 mg, Intravenous, Q6H piperacillin-tazobactam (ZOSYN) 3.375 g in dextrose 50 mL IVPB extended infusion (premix), 3.375 g,Intravenous, Q8H LORazepam (ATIVAN) injection 0.5 mg, 0.5 mg, Intravenous, Q6H PRN ASSESSMENT AND PLAN 29 y.o. male with abdominal pain, nausea, and diarrhea with known Crohn's disease with suspected enteric fistulas. Patient needs further imaging to elucidate fistula locations. - no plan at this time for surgical intervention - colorectal surgery will continue to see patient this admission - plan now for medical optimization of inflammatory disease until definitive treatment plan can be determined - MR enterography showing no extensive inflammatory communication between sigmoid colon and bladderdome, but a possible thin communication - IVFs - Consider psychiatry consult due to dysphoric mood and patient outlook on living with Crohn's disease - Patient will need re-scope after this bout of inflammation quells - Continue Zosyn, IV methylprednisolone - continue medical management per primary; appreciate recommendations from CHICHO Faye MD 07/25/2019 7:39 AM Associated attestation - Spencer Fonseca MD - 07/25/2019 1:43 PM EDT Attending Supervising Physician's Attestation Statement I performed a history and physical examination of the patient and discussed the findings and management with the resident physician. I reviewed and agree with the findings and plan as documented withthe exception of the following changes/additions. Date of service is 07/25/19 MRI reviewed. No clear enterovesical fistula seen. No clinical symptoms of enterovesical fistula. Resection would be the surgical option, but he has not received optimal medical treatment, and optimal medical treatment may make surgery unnecessary. Would prefer to trial biologic treatment prior to surgery as surgery comes with significant possible morbidity. documented in this encounter* Erik Villagomez RN - 08/09/2020 4:47 PM EST 911 on site and cancelled, pt to be transported by ENDO and [employer] staff to PACU for admit direct to surgery. ER Charge notified. * Erik Villagomez RN - 08/09/2020 4:35 PM EST Private transport 90 min ETA, 911 called, pt to be transported to ER, 10 min ETA. * Erik Villagomez RN - 08/09/2020 3:[address] fonseca, pt to be admitted directly for surgery, RN notified and calling for transport. * Spencer Fonseca MD - 08/09/2020 3:00 PM EST Flex Sig Proximal to the anastomosis was found ~10cm of necrotic sloughing colon; attempted to pass upper endoscope to identify proximal healthy bowel and small bowel was visualized. Suspect contained anastomotic leak now perforated freely into abdominal cavity. Immediately post procedure, pt with severe abd pain c/w perforation of anastomosis. OR notified, plan for emergent ex lap. Discussed with the non- healed/necrotic anastomosis and perforation and need for emergent surgery. * Erik Villagomez RN - 08/09/2020 3:00 PM EST Report given to ER charge nurse, Selena. documented in this encounter* Lily Loo RN - 07/29/2019 4:33 PM EDT Pt given discharge instructions. Pt verbalizes understanding and has no further questions at this time. * Shona Vicente DTR - 07/29/2019 12:33 PM EDT Nutrition rescreen completed. Chart reviewed. Diet advanced. Encourage PO Intake as able. Patient to be monitored and followed by the diet rv technician. * Bob Thompson MD - 07/29/2019 10:41 AM EDT Hospitalist Progress Note 07/29/2019 10:41 AM [phone]: Please page me for patient care issues. [phone]: Please page [facility] night Hospitalist for any issues. Subjective: Admit Date: 07/27/2019 PCP: Usha Frazier DO Room#: 1742/1742A Interval History: Patient states he is doing good. Denies any chest pain or sob. Says abd pain is only 3/10 and hes only asking for tylenol. Asked to advance diet. No fevers or chills. No NV DIET LOW FIBER; Patient Vitals for the past 96 hrs (Last 3 readings): Weight 07/27/19 1656 286 lb (129.7 kg) Medications: sodium chloride flush 10 mL Intravenous 2 times per day enoxaparin 40 mg Subcutaneous Daily methylPREDNISolone 40 mg Intravenous Q6H piperacillin-tazobactam 3.375 g Intravenous Q8H dicyclomine 20 mg Oral 4x Daily AC & HS lisinopril 10 mg Oral Daily tiZANidine 4 mg Oral Nightly pantoprazole 40 mg Oral QAM AC LABS: CBC: Recent Labs 07/28/19 0545 07/29/19 0003 WBC 9.9 16.1* RBC 5.09 5.19 HGB 15.1 15.0 HCT 44.4 45.5 MCV 87.2 87.6 RDW 14.2 14.0 PLT 263 301 BMP: Recent Labs 07/28/19 0545 07/29/19 0003 NA 139 139 K 4.0 3.9 CL 106 106 CO2 25 24 BUN 14 12 CREATININE 0.77 0.78 GLUCOSE 143* 144* CALCIUM 9.2 9.6 ANIONGAP 8 9 LIVER PROFILE: Recent Labs 07/28/19 0545 07/29/19 0003 AST 27 23 ALT 31 35 BILITOT 0.8 0.7 ALKPHOS 61 65 LABALBU 4.1 4.3 PROT 7.6 7.9 MRI on 07/25 IMPRESSION: Region of abnormal signal with spiculated-type configuration involving a distal small bowel loop along with a portion of the sigmoid colon and adjacent bladder and the lower mid pelvis, corresponding to focal region of involvement of Crohn's disease. The fistula into the bladder is not readily appreciated, but there is likely a thin communication. PT/INR: No results for input(s): PROTIME, INR in the last 72 hours. CARDIAC ENZYMES: No results for input(s): TROPONINI in the last 72 hours. Procalcitonin: No results found for: PROCAL Objective: Vitals: BP (!) 158/98 Pulse 60 Temp 96.3 F (35.7 C) (Temporal) Resp 18 Ht 6' (1.829 m) Wt286 lb (129.7 kg) SpO2 97% BMI 38.79 kg/m Pulse Ox: SpO2 Av.5 % Min: 97 % Max: 98 % Supplemental O2: General appearance: No apparent distress, appears stated age and cooperative with exam HEENT: Eyes: No scleral icterus Oral: Tongue is semi-moist Cardiovascular: S1S2 heard, RRR Respiratory: Clear to auscultation bilaterally Abdomen: Soft, some tenderness to palp of mid/lower abd, non-distended with normal bowel sounds. Musculoskeletal: No obvious deformities seen Skin: No visible rashes or lesions. Assessment # Crohns Flare with Enterovesicular fistulas with small abscess and micrperforation (per recent CT.ED did NOT do CT again due to recent CT) - on IV solumedrol/zosyn. GI and surgery following # Anxiety disorder # Hx of PTSD/multiple personality disorder/Bipolar disorder/Intermittent explosive disorder/ADHD # Hx of hep B Plan Advance diet to soft. Continue all other tx. Appreciate surgery and GI input. Summary of stay so far: Ruthie is a 29 y.o. male came in with complaints of abdominal pain and diarrhea. He has a hx of crohns dz. Last flare up was 5 months ago? Recently here in hospital but left AMA due to family emergency according to him. Says his dad got into a bad car accident .GI saw him and CT showed Crohn's Flare with Enterovesicular fistulas with small abscess and micrperforation (per CT). He was on IV methylprednisolone q6 hr on 07/25 prior to leaving AMA. MRCP was also done a few days ago and was showing thin communication between the bowel and bladder consistent with small fistula, general surgery followed for this finding, They recommended medical management for optimization of inflammatory disease prior to surgical intervention. Patient was also on zosyn at that time. Currently states abdominal pain is 10/10. Does look comfortable, no guarding. Says abdominal pain got bad that's why he came back into ER. Has some nausea but no vomiting. Denies any fevers but had some chills. I restarted his solumedrol as well as zosyn as before. Surgery and GI reconsulted to see him. Surgery saw and states continue tx as per GI but no surgical intervention needed. We did NOT repeat CT of abd due to hisrecent ct and MRI of abdomen. Meanwhile, he was having severe pain when he first came back to us. Iput him on morphine prn for pain and also he was anxious so I added xanax prn for anxiety. Today heis feelling a lot better and asking to advance to soft diet. Otherwise, pain has been 3/10 and he has been asking for tylenol instead of morphine he states. When he goes home, he states he won't neednarcotics as he is a tylenol yuniel . Meanwhile, GI has seen and states they plan on treating him with inflixamab (Remicade) vs. adalimumab (Humira) as an outpatient. Advance Directive: Full Code Discharge planning: FAMILIA THOMPSON DO Division of Hospitalist Medicine Inpatient Medical Services PAGER: [phone] * Bob Thompson MD - 07/28/2019 10:21 AM EDT Hospitalist Progress Note 07/28/2019 10:21 AM [phone]: Please page me for patient care issues. [phone]: Please page [facility] night Hospitalist for any issues. Subjective: Admit Date: 07/27/2019 PCP: Usha Frazier DO Room#: 1742/1742A Interval History: Patient states he has hx of anxiety and steroids is making it worst. Otherwise states his abdominal pain is getting better. He is appreciative of the care. No chest pain or sob. No fevers or chills this am. Diet NPO Effective Now Patient Vitals for the past 96 hrs (Last 3 readings): Weight 07/27/19 1656 286 lb (129.7 kg) Medications: sodium chloride 80 mL/hr at 07/27/191944 dextrose 5 % and 0.9 % NaCl 100 mL/hr at 07/27/192022 influenza virus vaccine 0.5 mL Intramuscular Once sodium chloride flush 10 mL Intravenous 2 times per day enoxaparin 40 mg Subcutaneous Daily methylPREDNISolone 40 mg Intravenous Q6H piperacillin-tazobactam 3.375 g Intravenous Q8H dicyclomine 20 mg Oral 4x Daily AC & HS lisinopril 10 mg Oral Daily tiZANidine 4 mg Oral Nightly pantoprazole 40 mg Oral QAM AC LABS: CBC: Recent Labs 07/28/19 0545 WBC 9.9 RBC 5.09 HGB 15.1 HCT 44.4 MCV 87.2 RDW 14.2 PLT 263 BMP: Recent Labs 07/28/19 0545 NA 139 K 4.0 CL 106 CO2 25 BUN 14 CREATININE 0.77 GLUCOSE 143* CALCIUM 9.2 ANIONGAP 8 LIVER PROFILE: Recent Labs 07/28/19 0545 AST 27 ALT 31 BILITOT 0.8 ALKPHOS 61 LABALBU 4.1 PROT 7.6 PT/INR: No results for input(s): PROTIME, INR in the last 72 hours. CARDIAC ENZYMES: No results for input(s): TROPONINI in the last 72 hours. Procalcitonin: No results found for: PROCAL Objective: Vitals: BP (!) 143/71 Pulse (!) 47 Temp 96.3 F (35.7 C) (Temporal) Resp 20 Ht 6' (1.829 m) Wt 286 lb (129.7 kg) SpO2 97% BMI 38.79 kg/m Pulse Ox: SpO2 Av.7 % Min: 94 % Max: 97 % Supplemental O2: General appearance: No apparent distress, appears stated age and cooperative with exam HEENT: Eyes: No scleral icterus Oral: Tongue is semi-moist Cardiovascular: S1S2 heard, RRR Respiratory: Clear to auscultation bilaterally Abdomen: Soft, some tenderness to palp of mid/lower abd, non-distended with normal bowel sounds. Musculoskeletal: No obvious deformities seen Skin: No visible rashes or lesions. Assessment # Crohns Flare with Enterovesicular fistulas with small abscess and micrperforation (per recent CT.ED did NOT do CT again due to recent CT) - on IV solumedrol/zosyn. GI and surgery consulted to follow # Anxiety disorder # Hx of PTSD/multiple personality disorder/Bipolar disorder/Intermittent explosive disorder/ADHD # Hx of hep B Plan Xanax bid prn. Continue all other tx. Appreciate surgery input. GI to see and evaluate. Advance Directive: Full Code Discharge planning: TBD BOB THOMPSON DO Division of Hospitalist Medicine Inpatient Medical Services PAGER: [phone] * Chema Faye MD - 07/28/2019 7:20 AM EDT Department of Surgery Surgical Service - Surgery 3 Daily Progress Note PATIENT NAME: Ruthie Castillo : 1990 ATTENDING PHYSICIAN: Bob Thompson MD ADMIT DATE: 07/27/2019 TODAY'S DATE: 07/28/2019 SUBJECTIVE Patient in a little more pain than when he left. He is confused by all the conflicting stories he is hearing - he doesn't know if he has a fistula or not. Patient having liquid bowel movements and passing gas. No nausea. ROS: Review of Systems Constitutional: Positive for appetite change. Negative for chills, diaphoresis and fever. HENT: Negative for congestion, nosebleeds, rhinorrhea and trouble swallowing. Eyes: Negative for pain, discharge, redness and visual disturbance. Respiratory: Negative for cough, shortness of breath and wheezing. Cardiovascular: Negative for chest pain, palpitations and leg swelling. Gastrointestinal: Positive for abdominal pain and diarrhea. Negative for abdominal distention, constipation, nausea and vomiting. Endocrine: Negative for cold intolerance, heat intolerance, polyphagia and polyuria. Genitourinary: Negative for difficulty urinating, dysuria and frequency. Musculoskeletal: Negative for arthralgias and neck pain. Skin: Negative for color change and pallor. Neurological: Negative for dizziness, seizures and facial asymmetry. Hematological: Negative for adenopathy. Does not bruise/bleed easily. Psychiatric/Behavioral: Negative for behavioral problems, confusion and decreased concentration. OBJECTIVE VITALS: BP 120/71 Pulse 59 Temp 96.3 F (35.7 C) (Temporal) Resp 20 Ht 6' (1.829 m) Wt 286lb (129.7 kg) SpO2 94% BMI 38.79 kg/m PHYSICAL EXAM: Physical Exam Constitutional: He is oriented to person, place, and time. He appears well- developed and well-nourished. No distress. HENT: Head: Normocephalic and atraumatic. Right Ear: External ear normal. Left Ear: External ear normal. Mouth/Throat: No oropharyngeal exudate. Eyes: Pupils are equal, round, and reactive to light. No scleral icterus. Neck: No JVD present. No tracheal deviation present. Cardiovascular: Normal rate, regular rhythm and normal heart sounds. Exam reveals no gallop and no friction rub. No murmur heard. Pulmonary/Chest: Effort normal and breath sounds normal. No respiratory distress. He has no wheezes. Abdominal: Soft. He exhibits no distension and no mass. There is tenderness. There is no rebound and no guarding. Musculoskeletal: He exhibits no edema, tenderness or deformity. Lymphadenopathy: He has no cervical adenopathy. Neurological: He is alert and oriented to person, place, and time. No cranial nerve deficit. Skin: Skin is warm and dry. Capillary refill takes less than 2 seconds. No erythema. Psychiatric: Judgment and thought content normal. His speech is delayed. He is slowed. He exhibits a depressed mood. Patient remarks he has extensive history of psychological disease INTAKE/OUTPUT: No intake/output data recorded. No intake/output data recorded. Data Recent Labs 07/28/19 0545 WBC 9.9 HGB 15.1 HCT 44.4 PLT 263 Recent Labs 07/28/19 0545 NA 139 K 4.0 CL 106 CO2 25 BUN 14 CREATININE 0.77 GLUCOSE 143* Recent Labs 07/28/19 0545 AST 27 ALT 31 BILITOT 0.8 ALKPHOS 61 Imaging Mri Abdomen W Wo Contrast Result Date: 07/25/2019 Patient Name: RUTHIE CASTILLO ---MRI--- Exam Date/Time 07/24/2019 19:20:55 EDT Exam MRI Abdomen w/ + w/o Contrast Ordering Physician KULWINDER BISHOP Accession Number [id number] CPT4 Codes 96760 () Reason For Exam crohn flare, with enterovesicular fistulas Report MRI ABDOMEN WITHOUT AND WITH CONTRAST INCLUDING SMALL BOWEL MR ENTEROGRAPHY: CLINICAL INDICATION: FLAIR coronal with an intravesical fistula and scrotal pain TECHNIQUE: Following a fast of six hours, the patient ingested three 450 mL bottles of Volumen oral contrast. MRI sequences were performed including transaxial T2 fat suppression and coronal T2 fat suppression along with diffusion-weighted sequences through the abdomen and pelvis. Following administration of 20 mL gadolinium contrast,coronal multiphase dynamic T1 and transaxial T1 fat suppression sequences were performed through the abdomen and pelvis as well COMPARISON: CT from 05/12/2019 FINDINGS: Bowel findings: Within the lower mid pelvis is region of signal abnormality with specific configuration. There is T2 hyperintensitywith enhancement centered between a loop of small bowel along with segment of sigmoid colon. The process extends to the dome of the bladder as well. This is best delineated on sequence 15 image 43 and sequence 18 image 33 through 44. This entire region extends over dimension of approximately 4 cm. There is no wide communication between the bowel and bladder, but there is probably a thin communication. There is no surrounding fluid in the region. Remaining bowel loops throughout the abdomen and pelvis demonstrate no dilatation or regions of abnormal signal or significant wall thickening. The terminal ileum and cecum demonstrates no other abnormality. The appendix is normal Liver: Normal sizeand contour. No focal lesion. Biliary tree: Normal gallbladder. No biliary dilatation. Spleen: Normal Adrenals:Normal Pancreas: Homogeneous enhancement without mass or peripancreatic fluid. Kidneys: Symmetric contrast enhancement without mass or hydronephrosis Lymphadenopathy: None Aorta: Normal caliber Pelvis:No mass identified Visualized Osseous structures: Normal IMPRESSION: Region of abnormalsignal with spiculated-type configuration involving a distal small bowel loop along with a portion of the sigmoid colon and adjacent bladder and the lower mid pelvis, corresponding to focal region ofinvolvement of Crohn's disease. The fistula into the bladder is not readily appreciated, but there is likely a thin communication. Report Dictated on Workstation: [id number] --- Final --- Dictated: 07/25/2019 0:04 am Dictating Physician: MD SOLIS JEFFREY Signed Date and Time: 07/25/2019 0:10 am Signed by: MD SOLIS JEFFREY Transcribed Date and Time: 07/25/2019 0:04 Current Inpatient Medications Current Facility-Administered Medications: influenza quadrivalent split vaccine (FLUZONE;FLUARIX;FLULAVAL;AFLURIA) injection 0.5 mL, 0.5 mL, Intramuscular, Once sodium chloride flush 0.9 % injection 10 mL, 10 mL, Intravenous, 2 times per day sodium chloride flush 0.9 % injection 10 mL, 10 mL, Intravenous, PRN ondansetron (ZOFRAN) injection 4 mg, 4 mg, Intravenous, Q6H PRN enoxaparin (LOVENOX) injection 40 mg, 40 mg, Subcutaneous, Daily methylPREDNISolone sodium (SOLU-MEDROL) injection 40 mg, 40 mg, Intravenous, Q6H piperacillin-tazobactam (ZOSYN) 3.375 g in dextrose 50 mL IVPB extended infusion (premix), 3.375 g,Intravenous, Q8H acetaminophen (TYLENOL) tablet 500 mg, 500 mg, Oral, Q6H PRN dicyclomine (BENTYL) tablet 20 mg, 20 mg, Oral, 4x Daily AC & HS hydrOXYzine (ATARAX) tablet 25 mg, 25 mg, Oral, TID PRN lisinopril (PRINIVIL;ZESTRIL) tablet 10 mg, 10 mg, Oral, Daily tiZANidine (ZANAFLEX) tablet 4 mg, 4 mg, Oral, Nightly pantoprazole (PROTONIX) tablet 40 mg, 40 mg, Oral, QAM AC morphine (PF) injection 2 mg, 2 mg, Intravenous, Q3H PRN 0.9 % sodium chloride infusion, , Intravenous, Continuous dextrose 5 % and 0.9 % sodium chloride infusion, , Intravenous, Continuous ASSESSMENT AND PLAN 29 y.o. male with history of hepatitis B and Crohn's disease (diagnosed one year ago) who presents during his second Crohn's flare after leaving AMA during recent admission. At this time patient willneed medical management with biologics/immunologic modulators of his Crohn's flare. - no acute surgical intervention at this time as the patient is treatment naive, has not been treated with biologics or immunologics or consistently followed up with a audio tape librarian - medical management per GI recs - IVFs - OK for CARMEN Chema Faye MD 07/28/2019 7:20 AM documented in this encounter Hospital Course * Bob Thompson MD - 07/29/2019 4:24 PM EDT Discharge Summary Ruthie Castillo : 1990 ADMIT DATE: 07/27/2019 DISCHARGE DATE: 07/29/2019 PRIMARY CARE PHYSICIAN: Usha Frazier DO VISIT STATUS: Admission CODE STATUS: Full Code DISCHARGE DIAGNOSES: Active Problems: Acute Crohn's disease, other complication (HCC) Resolved Problems: * No resolved hospital problems. * HOSPITAL COURSE: Ruthie is a 29 y.o. male came in with complaints of abdominal pain and diarrhea. He has a hx of crohns dz. Last flare up was 5 months ago? Recently here in hospital but left AMA due to family emergency according to him. Says his dad got into a bad car accident .GI saw him and CT showed Crohn's Flare with Enterovesicular fistulas with small abscess and micrperforation (per CT). He was on IV methylprednisolone q6 hr on 07/25 prior to leaving AMA. MRCP was also done a few days ago and was showing thin communication between the bowel and bladder consistent with small fistula, general surgery followed for this finding, They recommended medical management for optimization of inflammatory disease prior to surgical intervention. Patient was also on zosyn at that time. Currently states abdominal pain is 10/10. Does look comfortable, no guarding. Says abdominal pain got bad that's why he came back into ER. Has some nausea but no vomiting. Denies any fevers but had some chills. I restarted his solumedrol as well as zosyn as before. Surgery and GI reconsulted to see him. Surgery saw and states continue tx as per GI but no surgical intervention needed. We did NOT repeat CT of abd due to hisrecent ct and MRI of abdomen. Meanwhile, he was having severe pain when he first came back to us. Iput him on morphine prn for pain and also he was anxious so I added xanax prn for anxiety. Today heis feelling a lot better and asking to advance to soft diet. Otherwise, pain has been 3/10 and he has been asking for tylenol instead of morphine he states. When he goes home, he states he won't neednarcotics as he is a tylenol yuniel . Meanwhile, GI has seen and states they plan on treating him with inflixamab (Remicade) vs. adalimumab (Humira) as an outpatient. GI has okayed for discharge on po prednisone as follow: prednisone 40mg for 2 weeks, followed by 30mg for 1w, followed by 20mg for 1w, 10mg for 1 week - Patient to follow up with GI as an OP before taper is finished for Humira as Crohn's maintenance therapy. Physical exam: Cardiovascular: S1S2 heard, RRR Respiratory: Clear to auscultation bilaterally Abdomen: Soft, some tenderness to palp of mid/lower abd, non-distended with normal bowel sounds. Musculoskeletal: No obvious deformities seen SIGNIFICANT DIAGNOSTIC STUDIES: CONSULTANTS: GI General surgery MEDICATION CHANGES: RECOMMENDED NEXT STEPS: DISCHARGE MEDICATIONS: Ruthie Castillo Home Medication Instructions WILSON:[id number] Printed on:07/29/19 0483 Medication Information acetaminophen (TYLENOL) 500 MG tablet Take 500 mg by mouth every 6 hours as needed for Pain dicyclomine (BENTYL) 20 MG tablet Take 20 mg by mouth every 6 hours as needed hydrOXYzine (ATARAX) 25 MG tablet Take 25 mg by mouth 3 times daily as needed for Anxiety lisinopril (PRINIVIL;ZESTRIL) 10 MG tablet Take 10 mg by mouth daily omeprazole (PRILOSEC) 20 MG delayed release capsule Take 1 capsule by mouth daily predniSONE (DELTASONE) 10 MG tablet Take 4 tabs PO daily for 2 weeks then 3 tabs PO daily for 1 week then 2 tabs po daily for 1 week then 1 tab po daily for 1 week tiZANidine (ZANAFLEX) 4 MG tablet Take 4 mg by mouth nightly as needed DIET: DIET LOW FIBER; ACTIVITY: No restriction. up with assist COMPLEXITY OF FOLLOW UP: [] Moderate Complexity: follow up within 7-14 calendar days (43105) [] Severe Complexity: follow up within 7 calendar days (80785) FOLLOW UP TESTING, PENDING RESULTS OR REFERRALS AT TRANSITIONAL CARE VISIT: [] Yes [] No PENDING STUDIES: No DISPOSITION: Home FACILITY/HOME CARE AGENCY NAME: Follow up with Usha Frazier DO [address] [facility] [address] Arielle Coburn MD [address] [place], [place] [id number] In 3 weeks INSTRUCTIONS TO MA/SW: Please call patient on day after discharge (must document patient contacted within 2 business days of discharge). FOLLOW UP QUESTIONS FOR MA/SW: 1. Did you get medications filled and taking them as instructed from discharge? 2. Are you following your discharge instructions from your hospital stay? 3. Please confirm patient is scheduled for a follow up appointment within the above time frame. DISCHARGE TIME: > 30 minutes SIGNED: BOB THOMPSON MD 07/29/2019, 4:25 PM documented in this encounter Reason for Referral Status Reason Specialty Diagnoses / Procedures Referred By Contact Referred To Contact [facility] Specialty Services Required Pain Medicine / Pain Management Diagnoses Right lower quadrant abdominal pain Crohn's colitis, unspecified complication (HCC) Stefany Taylor PA [address] [place] [address] [facility] [address] [place] [address] Scheduling Instructions [facility] [place] [address] [place]. [id number] Additional Source Comments (unrecognized sect ion and content) No Status Records FoundNo Status Records FoundNo Status Records FoundNo Status Records FoundNo Status Records FoundNo Status Records FoundNo Status Records FoundNo Status Records FoundNo Status Records Found INFORMATION SOURCE (unrecogn ized section and content) DATE CREATED AUTHOR 11/10/2018 [employer] DATE CREATED AUTHOR AUTHOR'S ORGANIZ ATION 11/11/2018 [facility] DATE CREATED AUTHOR AUTHOR'S ORGANIZ ATION 07/28/2019 [facility] DATE CREATED AUTHOR AUTHOR'S ORGANIZ ATION 02/25/2020 [facility] DATE CREATED AUTHOR AUTHOR'S ORGANIZ ATION 07/06/2020 [facility] DATE CREATED AUTHOR AUTHOR'S ORGANIZ ATION 11/24/2021 [facility] DATE CREATED AUTHOR AUTHOR'S ORGANIZ ATION 12/01/2022 [facility] DATE CREATED AUTHOR AUTHOR'S ORGANIZ ATION 09/19/2023 [facility] ([place] DATE CREATED AUTHOR AUTHOR'S ORGANIZ ATION 06/30/2024 [facility] Reason for Visit (unrecogniz ed section and content) Reason Comments Abdominal Pain Nausea Diarrhea Reason Comments Abdominal Pain Nausea Reason Comments Abdominal Pain Reason Comments Abdominal Pain Pt here to the ER c/ o abd pain since noon today. Pt has hx of Crohn's. Dizziness Diarrhea Reason Comments Abdominal Pain surgical consult almaz Nielson,, see ,, possible micro perf,, possible abscess with diverticulitis Reason Comments Abdominal Pain post op surgery om now has abd pain. ileostomy is functioning Reason Comments Post-op Problem Pt states he had a s tomach surgery on Aug 09 and noticed tonight that his colostomy bag was full of bright green stool. Pt states the smell from his colostomy is also new. Pt has nausea and pain in his post-op site. Reason Comments Abdominal Pain stoma swelling and p ain with palpation. Patient states that feels his ABD is distended. Dizziness Nausea Reason Comments Abdominal Pain mid-right lower abdo rodney pain and nauseax1 week, worse in past 24hrs Reason Comments Abdominal Pain RLQ, ongoing x1 week . Pt states N/V and bowel movements until yesterday. pt states I feel bound up real tight . Pt reports that he had a syncopal episode yesterday and was seen at the [facility] and had a workup. Pt states he is still dizzy and lightheaded and not feeling well . pt called crohn's doctor and was told to come to ER for evaluation. Patient Care team informatio n (unrecognized section and content) Care Team Personnel Name: USHA FRAZIER DO Position: P4 Physician - Primary Care Member Role: Primary Care Physician Address: Address: [facility] [address] Name: CYNTHIA MURPHY MD Position: ED Physician Member Role: Attending Physician Address: Address: [facility] [address] [place] [address] Name: JUANA Stauffer Position: AO RN Member Role: ED RN Name: SOPHIA LEA DO Position: Resident Member Role: Resident Address: Address: [address] [place] [address] ED Resident [address] Name: Lynda Dyson RN Position: AO RN Member Role: ED RN Name: MD CORONADO TIMOTHY MD Position: ED Physician Member Role: ED Physician Address: Address: [address] [place] [address] Care Team Related Persons Name: JOANNA CASTILLO Care Team Personnel Name: USHA FRAZIER DO Position: P4 Physician - Primary Care Member Role: Primary Care Physician Address: Address: [facility] [address] Care Team Related Persons Name: JOANNA CASTILLO FOR RECORDS PERTAINING TO PATIENTS WHO ARE OR HAVE BEEN ENROLLED IN A CHEMICAL DEPENDENCY/SUBSTANCEABUSE PROGRAM, SOME INFORMATION MAY BE OMITTED. This clinical summary was aggregated from multiple sources. Caution should be exercised in using it in the provision of clinical care. This summary normalizes information from multiple sources, and as a consequence, information in this document may materially change the coding, format and clinical context of patient data. In addition, data may be omitted in some cases. CLINICAL DECISIONS SHOULD BE BASED ON THE PRIMARY CLINICAL RECORDS. [facility]. provides no warranty or guarantee of the accuracy or completeness of information in this document.
[2024-07-22 23:05] LABS: Anion Gap 5 (5-15); BUN 12 mg/dL (7-18); BUN/Creat Ratio 11.1 RATIO (10-20); Chloride 105 mmol/L (98-107); Creatinine, Serum 1.08 mg/dL (0.70-1.30); EST Glomerular Filtration Rate 83 mL/min (>60); Est Glom Filt Rate - Afr Amer 100 mL/min (>60); Estimated Creatinine Clearance 133.35 ml/min; Glucose 99 mg/dL (74-106); Potassium 3.6 mmol/L (3.5-5.1); Sodium Level 138 mmol/L (136-145)
[2024-07-22] MEDS: DiphenhydrAMINE 50 MG/ML Syringe IV (23:21)
[2024-07-23 00:05] VITALS: BP 161/90; PULSE 91; RESP 18; TEMP 36.6; O2SAT 97
== END 2024-07-23 00:06 | disposition home or self-care (01) ==
PROVIDERS: Emergency Provider Emergency Medicine; PCP Family Medicine; Visit Provider Emergency Medicine
DX: K62.5 Hemorrhage of anus and rectum (principal); K50.90 Crohn's disease, unspecified, without complications; F31.9 Bipolar disorder, unspecified; R10.9 Unspecified abdominal pain; F17.210 Nicotine dependence, cigarettes, uncomplicated; Z98.0 Intestinal bypass and anastomosis status; L29.9 Pruritus, unspecified; T50.8X5A Adverse effect of diagnostic agents, initial encounter; Z91.041 Radiographic dye allergy status
CPT/HCPCS: 74177; 80048; 85025; 96374; 99283; Q9967; A4216

== ENCOUNTER 2025-04-04 09:11 | Emergency (ER) | payer MEDICARE, MEDICAID, SELFPAY ==
[2025-04-04 09:12] VITALS: BP 185/89; PULSE 98; RESP 16; TEMP 36.6; O2SAT 99; BMI 34.8
--- NOTE | 2025-04-04 10:22 | EKG12_ITS ---
Test Reason : SOB Blood Pressure : */* mmHG Vent. Rate : 68 BPM Atrial Rate : 68 BPM P-R Int : 146 ms QRS Dur : 108 ms QT Int : 378 ms P-R-T Axes : 25 -44 32 degrees QTcB Int : 401 ms Normal sinus rhythm with sinus arrhythmia Left axis deviation Pulmonary disease pattern Abnormal ECG Confirmed by PAMELA ANDRADE, MATHEW ([id number]), editor city DAMION KIRBY ([id number]) on 04/05/2025 11:00:59 AM Referred By: Confirmed By: MATHEW SANTIAGO MD
[2025-04-04 10:46] LABS: Hematocrit 45.5 % (40-54); Hemoglobin 15.6 g/dL (13.0-16.5); Immature Granulocytes Count 0.030 X10^3/uL (0.0-0.0); Mean Corp Hgb Conc 34.3 g/dL (32-36); Mean Corpuscular Volume 87.0 fL (80-94); Mean Platelet Vol. 10.1 fl (6.2-12.0); NRBC Flagged by Analyzer 0 % (0-5); Platelet Count 218 K/mm3 (150-450); RBC Distribution Width CV 13.2 % (11.6-14.6); RBC Distribution Width SD 42.0 fl (35.1-43.9); Red Blood Count 5.23 M/mm3 (4.6-6.2); White Blood Count 9.6 K/mm3 (4.4-11.0)
--- NOTE | 2025-04-04 10:55 | RAD_ITS ---
PROCEDURE: CHEST PA AND LATERAL 04/04/2025 REASON FOR EXAM: CHEST PAIN, DYSPNEA TECHNIQUE: CHEST PA AND LATERAL COMPARISON: Portable chest, 11/24/2022 FINDINGS: The lungs are clear. The heart borders mediastinum and pulmonary vascular pattern are normal. The upper abdominal bowel gas pattern is normal. There are no bony abnormalities of the chest. RAD/Chest PA and Lateral IMPRESSION: No evidence of acute cardiopulmonary pathology. Reading Location: [id number]
[2025-04-04 10:57] VITALS: BP 155/107; PULSE 75; RESP 18; O2SAT 96
--- OUTSIDE RECORDS SUMMARY | 2025-04-04 11:20 | XMS RPT_ITS | CCD ---
Author Organization [facility] Care Team Providers Care [employer] Interpreter Name Role Phone Melanie Ocasio Attending Unavailable KarinUsha Referring Unavailable KarinUsha Primary Care Unavailable Usha Frazier Primary Care Provider Usha Frazier Primary Care Provider Usha Frazier DO Primary Care Provider USHA FRAZIER Primary Care Unavailable ERIK RUTLEDGE Attending Unavailable KARIN DO, DR KERR A Primary Care Physician CYNTHIA MURPHY MD Attending Unavailable KARIN DO, DR USHA Chase Primary Care Unavailnora FRAZIER DO, DR USHA Chase Primary Care Unavailnora PAGE MD, STEFANY Attending Unavailable Matthew Sanchez Attending Unavailable Usha Frazier Primary Care Unavailable Nito Tapia Attending Unavailable Usha Frazier Primary Care Unavailable Usha Frazier Primary Care Unavailable Nito Tapia Attending Unavailable Allergies Allergy Classification Reported Allergen(s) Allergy Type Date of Onset Reaction(s) Facility (20 sources) Adrenergic Beta-Antagonists Propensity to adverse reactions to drug 04-27-20 13 Other (See Comments) [place], [place] (20 sources) bee venom Propensity to adverse reactions to drug 02-26-20 09 Anaphylaxis [place] (20 sources) cultivated mushroom extract Drug Allergy 08-25-20 14 [place] (19 sources) Dextromethorphan Drug Allergy 11-04-19 19 [place] (20 sources) Dextromethorphan; Translations: [DEXTROMETHORPHAN R] Drug Allergy 03-17-20 16 [place] (20 sources) POISON MIMI EXTRACT Drug Allergy 02-29-20 09 Rash [place] (20 sources) Db-Nqcaythimo-Jgitm minophen Propensity to adverse reactions to drug 12-28-19 19 [place] (12 sources) Doxylamine Drug Allergy 11-23-19 20 [place] (9 sources) Pseudoephedrine; Translations: [PSEUDOEPHEDRINE] Drug Allergy 12-28-19 16 [place] (4 sources) Mushroom (edible) Allergy to substance 02-02-20 Anaphylaxis, [facility] (5 sources) Pseudoephedrine; Translations: [pseudoephedrine HCl] Drug Allergy 02-02-20 22 Anaphylaxis [facility] (4 sources) Hornet venom; Translations: [hornet venom] Allergy to substance 03-29-20 Anaphylaxis [facility] (1 source) Adrenergic Beta-Antagonists; Translations: [BETA-BLOCKERS (BETA-ADRENERGIC BLOCKING AGTS)] Propensity to adverse reactions to drug (disorder) 04-27-20 13 [facility] (1 source) BEES; Translations: [BEES] Propensity to adverse reactions (disorder) 02-26-20 09 [facility] (1 source) PROCHLORPERAZINE EDISYLATE; Translations: [PROCHLORPERAZINE EDISYLATE] Propensity to adverse reactions to drug (disorder) 05-30-20 10 [facility] (1 source) MUSHROOM COMBINATION NO.1; Translations: [MUSHROOM COMBINATION NO.1] Propensity to adverse reactions to drug (disorder) 08-25-20 14 [facility] (1 source) KFIIWLBAW-[id number]-KQ-AC ETAMINOPHEN; Translations: [MEOBVLQRY-HHE-LZ-A CETAMINOPHEN] Propensity to adverse reactions to drug (disorder) 09-20-20 18 [facility] Rep[facility] (1 source) POISON MIMI; Translations: [POISON MIMI] Propensity to adverse reactions (disorder) 02-29-20 09 [facility] (2 sources) Acetaminophen / Dextromethorphan / Doxylamine / Pseudoephedrine; Translations: [APAP/dextromethorp mensah/doxylamine/PSE] Drug Allergy hives [facility] (2 sources) Bee pollen; Translations: [bee pollen] Drug Allergy anaphyalic shock [facility] (2 sources) Prochlorperazine; Translations: [prochlorperazine] Drug Allergy Muscle spasm [facility] (1 source) Doxylamine Drug Allergy 07-22-20 [facility] Rep[facility] (1 source) Mushroom (edible) Drug allergy (disorder) 07-22-20 [facility] Rep[facility] (1 source) poison mimi extract Drug allergy (disorder) 07-22-20 [facility] (1 source) venom-honey bee Drug allergy (disorder) 07-22-20 [facility] Rep[facility] (1 source) Iodinated Contrast Media Drug allergy (disorder) 07-22-20 [facility] Repository Medications Current Medications Medication Drug Class(es) Dates [...] 04-27-2020 acetaminophen (TYLENOL) tablet 1,000 mg Start: 11-24-2019 take 1500 mg by mout h once daily Acetaminophen Active 1500 MG PO DAILY@1029November 24, 2019 5:16pm Start: 11-24-2019 take 1500 mg by mout h once daily Acetaminophen Active 1500 MG PO DAILY@1029November 24, 2019 12:00am Start: 11-24-2019 take 1500 mg by mout h once daily Acetaminophen Active 1500 MG PO DAILY@1029November 24, 2019 1:00am Start: 08-08-2019 take 2 tablets by mo [...] from all sources in 24 hours. Start: 08-28-2018 End: 09-02-2018 Acetaminophen (Tylenol Extra Strength) 500 MG tablet Discontinued 1000 MG PO NEEDED August 28, 2018 12:00am September 02, 2018 2:18pm End: 08-08-2019 take 4 tablets by mouth twice daily acetaminophen (TYLENOL) 500 MG tablet Take 2,000 mg by mouth 2 times daily 0 08/08/2019 Discontinued (REORDER) acetaminophen 325 mg / HYDROcodone bitartrate 5 mg oral tablet (20 sources) Opioid Agonist Start: 10-29-2021 take 1 tablet by mouth every six hours as needed Hydrocodone-Acetaminophen Active 1 TABLET PO EVERY 6 HOURS NEEDED 10 3 March 29, 2022 Start: 04-24-2020 End: 04-26-2020 take 1 tablet by mouth every four hours as needed Hydrocodone-Acetaminophen Discontinued 1 TABLET PO EVERY 4 HOURS NEEDED 10 April 24, 2020 April 25, 2020 11:03pm Start: 01-08-2020 End: 01-10-2020 take 1 tablet by mouth every four hours as needed Hydrocodone-Acetaminophen Discontinued 1 TABLET PO EVERY 4 HOURS NEEDED 10 January 08, 2020 January 09, 2020 11:02pm Start: 09-25-2019 End: 09-27-2019 take 1 tablet by mouth every four hours as needed Hydrocodone-Acetaminophen Discontinued 1 TABLET PO EVERY 4 HOURS NEEDED 14 September 25, 2019 September 27, 2019 12:08am Start: 07-22-2019 End: 07-30-2019 take 1 tablet by mouth every four hours as needed Hydrocodone-Acetaminophen Discontinued 1 TABLET PO EVERY 4 HOURS NEEDED 10 July 22, 2019 July 29, 2019 11:09pm End: 05-08-2020 take 1 tablet by mouth every eight hours as needed for pain HYDROcodone-acetaminophen (NORCO) [...] 0 07/29/2019 Discontinued (Stop Taking at Discharge) acetaminophen 325 mg / oxyCODONE hydrochloride 5 mg oral tablet (12 sources) Opioid Agonist Start: 08-09-2020 End: 08-16-2020 [...] 28 tablet 0 06/28/2020 07/05/2020 Active Start: 11-23-2019 End: 11-27-2019 take 1 tablet by mouth every six hours as needed Oxycodone-Acetaminophen Discontinued 1 TABLET PO EVERY 6 HOURS NEEDED 15 3 November 23, 2019 November 27, 2019 12:09am Start: 05-14-2019 End: 05-14-2019 oxyCODONE-acetaminophen (PER COCET) 5-325 MG per tablet 2 tablet Start: 09-09-2018 End: 09-16-2018 take 1-2 tablets by mouth every four hours as needed for pain Oxycodone-Acetaminophen Discontinued 1 - 2 TABLET PO EVERY 4 HOURS NEEDED 50 7 September 09, 2018 12:00am September 16, 2018 12:13am 1-2 tablets every 4 hours as needed for pain albuterol 0.833 mg/ml / ipratropium bromide 0.167 [...] daily. 56 g 1 10/18/2019 11/17/2019 Active 2 ml dicyclomine hydrochloride 10 mg/ml injection [...] BEFORE MEALS & NIGHTLY, First dose on Sat07/27/19 at 2200 take 1 tablet by kelli [...] anxiety, # 40 tab(s), 0 Refill(s), [id number], Anxiety, 182, cm, 12/05/22 14:35:00 EST, Height Start Date: 12/05/22 Status: Ordered Start: 08-10-2020 take 50 mg by mouth every six hours as needed for anxiety 50 mg, Oral, EVERY 6 HOURS PRN, Anxiety, Starting 08/10/20 at 0506 Start: 06-27-2020 hydrOXYzine (V ISTARIL) capsule 50 mg Start: 04-27-2020 hydrOXYzine (V ISTARIL) capsule 50 mg Start: 08-05-2019 hydrOXYzine (V ISTARIL) capsule 25 mg Start: 07-29-2019 hydrOXYzine (V ISTARIL) capsule 25 mg Start: 07-25-2019 End: 07-29-2019 take 25 mg by mouth three times daily as needed for anxiety 25 mg, Oral, 3 TIMES DAILY PRN, Anxiety, Starting 07/27/19 at 2059 take 2 tablets by [facility] every six hours as needed for anxiety [...] 10 mg, Oral, DAILY, First dose on Tu07/28/19 at 0900 Start: 07-25-2019 take 10 mg [...] 60 mg metroNIDAZOLE 500 mg oral tablet (17 sources) Nitroimidazole Antimicrobial Start: 10-28-2020 metroNIDAZOLE (FLAGYL) 500 MG tablet On the day prior to surgery take one tablet at 1:00pm; one tablet at 2:00pm; one tablet at 11:00pm 3 tablet 0 10/28/2020 Active Start: 11-23-2019 End: 11-26-2019 take 500 mg by mouth twice daily Metronidazole Discontinued 500 MG PO TWICE A DAY November 23, 2019 12:00am November 26, 2019 11:04am Start: 08-08-2019 End: 08-15-2019 take 1 tablet [...] 07/22/2019 07/29/2019 Discontinued (Stop Taking at Discharge) Start: 09-02-2018 End: 09-08-2018 take 500 mg by mouth three times daily at mealtime Metronidazole Discontinued 500 MG PO 3 TIMES DAILY WITH MEALS September 04, 2018 3:09am September 08, 2018 8:58am naproxen 500 mg oral tablet (3 sources) Nonsteroidal Anti-inflammatory Drug Start: 03-29-2022 take 500 mg by mouth twice daily Naproxen Active 500 MG PO TWICE A DAY March 28, 2022 11:00pm neomycin sulfate 500 mg oral tablet (2 sources) Aminoglycoside Antibacterial Start: 10-28-2020 neomycin (MYCIFRADIN) 500 MG tablet On the [...] pantoprazole 40 mg delayed release oral tablet (7 sources) Proton Pump Inhibitor Start: 04-27-2020 take 40 mg by mouth once daily before breakfast 40 mg, Oral, DAILY BEFORE BREAKFAST, First dose on Sat04/27/20 at 0700 Do not crush or break. Substituted for Omeprazole (PRILOSEC). Start: 08-06-2019 take 40 mg by mouth once daily before breakfast 40 mg, Oral, DAILY BEFORE BREAKFAST, First dose on Sat08/06/19 at 0700 Do not crush or break. Substituted for Omeprazole (PRILOSEC). Start: 07-28-2019 take 40 mg by mouth once daily before breakfast 40 mg, Oral, DAILY BEFORE BREAKFAST, First dose on Sat07/28/19 at 0700 Do not crush or break. Substituted for Omeprazole (PRILOSEC). Start: 09-02-2018 End: 09-04-2018 take 20 mg by mouth twice daily Pantoprazole Discontin ued 20 MG PO TWICE A DAY 60 September 02, 2018 12:00am September 04, 2018 3:09am polyethylene glycol 3350 [id number] mg powder for oral solution (5 sources) [...] polyethylene g lycol (GLYCOLAX) packet 17 g Promethazine (2 sources) Phenothiazine Start: 05-08-2020 promethazine [...] mL traMADol hydrochloride 50 mg oral tablet (10 sources) Opioid Agonist Start: 04-27-2020 traMADol (ULTR AM) tablet 50 mg Start: 05-11-2019 End: 05-16-2019 take 1 tablet by mouth every six hours as needed for pain traMADol (ULTRAM) 50 MG tablet Indications: Generalized abdominal pain Take 1 tablet by mouth every 6 hours as needed for Pain for up to 5 days. 15 tablet 0 05/11/2019 05/16/2019 Active Start: 04-17-2019 End: 05-11-2019 take 50 mg by mouth every four hours as needed Tramadol Discontinued 50 MG PO EVERY 4 HOURS NEEDED 15 3 April 16, 2019 11:00pm April 25, 2019 11:08pm Completed/Discontinued Medications Medication Drug Class(es) Dates Sig (Normalized) Sig (Original) 0.8 ml adalimumab 50 mg/ml prefilled syringe [...] Start: 06-26-2020 End: 06-27-2020 lactated ringers infusion ciprofloxacin 500 mg oral tablet (15 sources) Quinolone Antimicrobial Start: 11-23-2019 End: 11-26-2019 take 500 mg by mouth twice daily Ciprofloxacin Hcl Discontinued 500 MG PO TWICE A DAY November 23, 2019 12:00am November 26, 2019 11:04am Start: 08-08-2019 End: 08-15-2019 take 1 tablet [...] 07/22/2019 07/29/2019 Discontinued (Stop Taking at Discharge) Start: 09-02-2018 End: 09-08-2018 take 500 mg by mouth twice daily Ciprofloxacin Hcl Discontinued 500 MG PO TWICE A DAY September 04, 2018 3:09am September 08, 2018 8:58am gadobenate dimeglumine (MULTIHANCE) injection 20 mL (1 [...] 05-12-2019 HYDROmorphone (DILAUDID) inj ection 1 mg ibuprofen 400 mg oral tablet (4 sources) Nonsteroidal Anti-inflammatory Drug Start: 09-02-2018 End: 09-08-2018 take 400-800 mg by mouth every six hours as needed Ibuprofen Discontinued 400 - 800 MG PO EVERY 6 HOURS NEEDED September 02, 2018 12:00am September 08, 2018 8:57am Iopamidol (3 sources) Radiographic Contrast Agent Start: [...] 6 H OURS PRN, Nausea, Vomiting, Starting Sat08/09/20 at 2224 Start: 07-03-2020 End: 07-03-2020 ondansetron [...] 8 HOURS, 12 doses, First dose on 08/09/20 at 2245, Last dose on 08/13/20 at [...] dextrose 50 mL IVPB extended infusion (premix) predniSONE 10 mg oral tablet (8 sources) Start: 01-08-2020 End: 01-16-2020 take 4 tablets by mouth once daily, then take 3 tablets by mouth once daily, then take 2 tablets by mouth once daily, then take 1 tablet by mouth once daily Prednisone Discontinued 10 MG PO DIRECTED January 07, 2020 11:00pm January 16, 2020 1:41am Take 4 tablets daily for 3 days, then 3 daily for 3 days, then 2 daily for 3 days, then 1 a day for 4 days. Start: 08-08-2019 End: 09-05-2019 take 2 tablets [...] 1 week 98 tablet 0 07/29/2019 Active 1000 ml sodium chloride 9 mg /ml [...] # 60 tab(s), 2 Refill(s), [facility]: [facility] #[id number], Tear of right biceps muscle Lumbar paraspinal [...] mg, Oral, NIGHTLY, Fir st dose on Sat07/27/19 at 2200 Problems Active Problems Problem Classification Problem Date Documented Da te Episodic/Chronic Abdominal pain (20 sources) Generalized abdominal pain; Translations: [Upper abdominal pain] Onset: 9 12-05-2018 Episodic Anxiety disorders (20 sources) Posttraumatic stress disorder; Translations: [Anxiety] Onset: 3 07-24-2019 Chronic Diverticulosis and diverticulitis (20 sources) Diverticulitis; Translations: [Diverticulosis of sigmoid colon] Onset: 9 11-17-2018 Chronic Esophageal disorders (20 sources) Gastroesophageal reflux disease; Translations: [Gastro-esophageal reflux disease without esophagitis] Resolved: 0 07-29-2019 Chronic Essential hypertension (3 sources) Essential hypertension; Translations: [Benign hypertension] Chronic Fluid and electrolyte disorders (20 sources) Lactic acidosis; Translations: [Hypokalemia] Onset: 9 Resolved: 0 12-05-2018 Episodic Fracture of upper limb (8 sources) Closed fracture of fifth metacarpal; Translations: [Unspecified fracture of fifth metacarpal bone, left hand, initial encounter for closed fracture] 07-03-2021 Episodic Genitourinary symptoms and ill-defined conditions (4 sources) Urine looks dark; Translations: [Other abnormal findings in urine] 08-13-2019 Episodic Hemorrhoids (4 sources) Hemorrhoids; Translations: [Unspecified hemorrhoids] 11-04-2018 Episodic Impulse control disorders NEC (20 sources) Explosive personality disorder; Translations: [Intermittent explosive disorder] 07-24-2019 Chronic Miscellaneous mental health disorders (18 sources) Multiple personality disorder; 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] 07-24-2019 Chronic Mood disorders (20 sources) Bipolar disorder; Translations: [Recurrent major depressive episodes, moderate ] Onset: 0 08-06-2019 Chronic Noninfectious gastroenteritis (20 sources) Inflammatory bowel disease; Translations: [Gastroenteritis] Onset: 9 11-17-2018 Episodic Nonspecific chest pain (1 source) Chest pain; Translations: [Chest pain, unspecified] 11-24-2022 Episodic Nutritional deficiencies (5 sources) Nutritional marasmus; Translations: [Severe malnutrition] Onset: 0 08-10-2020 Chronic Open wounds of head; neck; and trunk (4 sources) Open wound of anterior abdominal wall ; Translations: [Unspecified open wound of abdominal wall, unspecified quadrant without penetration into peritoneal cavity, initial encounter] 08-24-2020 Episodic Other aftercare (4 sources) Surgical follow-up; Translations: [Encounter for change or removal of surgical wound dressing] 08-20-2020 Episodic Other gastrointestinal disorders (4 sources) Irritable bowel syndrome; Translations: [Irritable bowel syndrome without diarrhea] 11-24-2019 Chronic Other injuries and conditions due to external causes (5 sources) Wound ; Translations: [Encounter for other specified surgical aftercare] 08-20-2020 Episodic Other male genital disorders (1 source) Pain of right testicle; Translations: [Right testicular pain] 11-24-2022 Episodic Other nervous system disorders (1 source) Paresthesia of skin; Translations: [Paresthesia of both hands] 11-24-2022 Episodic Other nutritional; endocrine; and metabolic disorders (20 sources) Obesity; Translations: [Obesity, unspecified] Onset: 9 11-17-2018 Chronic Other nutritional; endocrine; and metabolic disorders (4 sources) Obese class I Onset: 9 08-06-2019 Chronic Other nutritional; endocrine; and metabolic disorders (8 sources) Obese class I; Translations: [Obesity (BMI 30.0-34.9)] Onset: 9 12-05-2018 Other screening for suspected conditions (not mental disorders or infectious disease) (4 sources) Computed tomography result abnormal 12-05-2018 Chronic Peritonitis and intestinal abscess (5 sources) Abdominal abscess; Translations: [Abscess of sigmoid colon] 04-16-2019 Episodic Regional enteritis and ulcerative colitis (20 sources) Crohn's disease of colon; Translations: [Crohn's disease] Onset: 9 12-27-2018 Chronic Residual codes; unclassified (7 sources) Computed tomography result abnormal; Translations: [Abnormal CT scan, small bowel] 12-05-2018 Episodic Spondylosis; intervertebral disc disorders; other back problems (3 sources) Low back pain; Translations: [Low back pain] 04-06-2022 Episodic Sprains and strains (4 sources) Strain of biceps brachii muscle; Translations: [Strain of muscle, fascia and tendon of other parts of biceps, right arm, initial encounter] 11-06-2021 Episodic Substance-related disorders (19 sources) Smoker; Translations: [Tobacco dependence syndrome] Onset: 0 07-29-2019 Chronic Superficial injury; contusion (4 sources) Contusion of hand; Translations: [Contusion of unspecified hand, initial encounter] 05-08-2017 Episodic Unclassified (11 sources) Drug therapy finding; Translations: [Current use of steroid medication] 12-05-2018 Viral infection (2 sources) Viral disease; Translations: [Disease caused by 2019-nCoV] 11-24-2022 Episodic Viral infection (1 source) COVID-19; Translations: [COVID-19] Onset: 3 Past or Other Problems Problem Classification Problem Date Documented Da te Episodic/Chronic Nausea and vomiting (11 sources) Nausea and vomiting; Translations: [Intractable nausea and vomiting] Onset: 0 05-08-2020 Episodic Other gastrointestinal disorders (20 sources) Hemorrhagic [...] Test Name Value Interpretation Reference Range Facility Abdomen/Pelvis W IV Cont ONL Yon 07-22-2024 Abdomen/Pelvis W IV Cont ONLY [facility] Imaging Services [address] [place] [address] Abdomen/Pelvis W IV Cont ONLY MR#: [id number] Acct: [id number] Name: RUTHIE CASTILLO Rep #: [id number] : 1990 M 34 From: Carlos Alberto Ovalle MD PCP: Dr. Usha Frazier, DO Status: REG ER Study: Abdomen/Pelvis W IV Cont ONLY Date of Exam: Exam# [id number] Ordering Dr: Nito Tapia MD [id number] INDICATION: RLQ abdominal pain, history of diverticulitis EXAMINATION: CT ABDOMEN AND PELVIS WITH CONTRAST - CT Abdomen And Pelvis W/ Contrast Injection TECHNIQUE: Helically acquired images were obtained of the abdomen and pelvis following IV contrast. A radiation dose optimization technique was used for this scan. IV Contrast dosage and agent: 100 mL Isovue-370 Oral contrast: None. COMPARISON: April 21, 2024. FINDINGS: LOWER CHEST: Lung bases are clear. No cardiomegaly or pericardial effusion. LIVER: Homogeneous. No focal mass. GALLBLADDER AND BILIARY TREE: No calcified gallstones. No gallbladder distension or wall edema. No intra- or extrahepatic biliary ductal dilation. PANCREAS: No focal cystic or solid mass. SPLEEN: Normal size without focal cystic or solid mass. ADRENAL GLANDS: No nodules. KIDNEYS AND URETERS: Normal renal size and position. No hydronephrosis. PERITONEUM: No ascites or free air. No other fluid collection. BOWEL: No acute gastric finding. No small bowel distention or focal wall thickening. Mid small bowel anastomosis with mild typical dilatation of the anastomotic sites without obstruction. Left hemicolectomy with rectosigmoid anastomosis, without evidence of destruction. Normal appendix. . LYMPH NODES: No enlarged mesenteric or retroperitoneal lymph nodes. VESSELS: Aorta is non-dilated. URINARY BLADDER: Unremarkable. ABDOMINAL WALL: No discrete abdominal or pelvic wall hernia. BONES: No lytic or blastic abnormality. CT/Abdomen/Pelvis W IV Cont ONLY IMPRESSION: No specific finding for patient''s pain. Multiple bowel anastomosis without evidence of obstruction. Normal appendix. Electronically Signed: Carlos Alberto Ovalle MD at 23:37 EDT , CC: Dr. Nito Tapia MD; Dr. Usha Frazier DO Metaphysician: Signed Normal [facility] Basic Metabolic Profile (BMP )on 07-22-2024 BUN/CRE 11.1 RATIO Normal 07-19 [facility] Comment on above: Performed By: #### L 100.0100, L500.2500 ####[facility] [address] [place], [address] CA,Total 9.0 mg/dL Normal 8.5-10.1 [facility] Comment on above: Performed By: #### L 100.0100, L500.2500 ####[facility] [address] [place], [address] Chloride [Moles/Vol] 105 mmol/L Normal 98-107 [facility] Comment on above: Performed By: #### L 100.0100, L500.2500 ####[facility] [address] [place], [address] CO2 [Moles/Vol] 29.0 mmol/L Normal 21.0-32.0 [facility] Comment on above: Performed By: #### L 100.0100, L500.2500 ####[facility] [address] [place], [address] Creatinine [Mass/Vol] 1.08 mg/dL Normal 0.70-1.30 [facility] Comment on above: Result Comment: The validity of the calculated GFR GFRAA in patients over 70 years has not been determined. Clinical correlation is essential. Performed By: #### L 100.0100, L500.2500 ####[facility] [address] [place], [address] ECRCL 133.35 ml/min Normal [facility] Comment on above: Performed By: #### L 100.0100, L500.2500 ####[facility] [address] [place], [address] EST GFR - AA 100 mL/min Normal >60 [facility] Comment on above: Result Comment: Afri can Panamanian GFR Calc Performed By: #### L 100.0100, L500.2500 ####[facility] [address] [place], [address] GAP 5 Normal 5-15 [facility] Comment on above: Performed By: #### L 100.0100, L500.2500 ####[facility] [address] [place], [address] GFR/1.73 sq M.predicted among non-blacks MDRD (S/P/Bld) [Vol rate/Area] 83 mL/min/{1.73_m2} Normal >60 [facility] Comment on above: Result Comment: Non- GFR Calc Performed By: #### L 100.0100, L500.2500 ####[facility] [address] [place], [address] Glucose [Mass/Vol] 99 mg/dL Normal 74-106 [facility] Comment on above: Performed By: #### L 100.0100, L500.2500 ####[facility] [address] [place], [address] Potassium [Moles/Vol] 3.6 mmol/L Normal 3.5-5.1 [facility] Comment on above: Performed By: #### L 100.0100, L500.2500 ####[facility] [address] [place], [address] Sodium [Moles/Vol] 138 mmol/L Normal 136-145 [facility] Comment on above: Performed By: #### L 100.0100, L500.2500 ####[facility] [address] [place], [address] Urea nitrogen [Mass/Vol] 12 mg/dL Normal 7-18 [facility] Comment on above: Performed By: #### L 100.0100, L500.2500 ####[facility] [address] [place], [address] CBC W/Diff, Automatedon 10-2 -2023 Absolute Lymph 2.14 X10 3/uL Normal 0.83-4.51 [facility] Comment on above: Performed By: #### L 100.0100, L500.2500 ####[facility] [address] [place], [address] Absolute Neut 6.2 X10 3/uL Normal 2.0-7.7 [facility] Comment on above: Performed By: #### L 100.0100, L500.2500 ####[facility] [address] [place], [address] Basophils/100 WBC (Bld) 0.2 % Normal 0-1 [facility] Comment on above: Performed By: #### L 100.0100, L500.2500 ####[facility] [address] [place], [address] Eosinophils/100 WBC (Bld) 9.9 % High 0-5 [facility] Comment on above: Performed By: #### L 100.0100, L500.2500 ####[facility] [address] [place], [address] Erythrocyte distribution width (RBC) [Ratio] 13.2 % Normal 11.6-14.6 [facility] Comment on above: Performed By: #### L 100.0100, L500.2500 ####[facility] [address] [place], [address] Hematocrit (Bld) [Volume fraction] 46.6 % Normal 40-54 [facility] Comment on above: Performed By: #### L 100.0100, L500.2500 ####[facility] [address] [place], [address] Hemoglobin (Bld) [Mass/Vol] 15.3 g/dL Normal 13.0-16.5 [facility] Comment on above: Performed By: #### L 100.0100, L500.2500 ####[facility] [address] [place], [address] IG% 0.400 Normal 0.0-0.9 [facility] Comment on above: Result Comment: IG% - Immature Granulocytes (promyelocytes, myelocytes and metamyelocytes) > 1% indicates that a LEFT SHIFT is Present. Performed By: #### L 100.0100, L500.2500 ####[facility] [address] [place], [address] Lymphocytes/100 WBC (Bld) 21.5 % Normal 19-41 [facility] Comment on above: Performed By: #### L 100.0100, L500.2500 ####[facility] [address] [place], [address] MCH (RBC) [Entitic mass] 29.1 pg Normal 27.0-32.0 [facility] Comment on above: Performed By: #### L 100.0100, L500.2500 ####[facility] [address] [place], [address] MCHC (RBC) [Mass/Vol] 32.8 g/dL Normal 32-36 [facility] [place] [facility] Comment on above: Performed By: #### L 100.0100, L500.2500 ####[facility] [address] [place], [address] MCV (RBC) [Entitic vol] 88.6 fL Normal 80-94 [facility] Comment on above: Performed By: #### L 100.0100, L500.2500 ####[facility] [address] [place], [address] Monocytes/100 WBC (Bld) 5.8 % Normal 0-10 [facility] Comment on above: Performed By: #### L 100.0100, L500.2500 ####[facility] [address] [place], [address] Neutrophils/100 WBC (Bld) 62.2 % Normal 47-70 [facility] Comment on above: Performed By: #### L 100.0100, L500.2500 ####[facility] [address] [place], [address] Nucleated RBC (Bld) [#/Vol] 0 10*3/uL Normal 0-5 [facility] Comment on above: Performed By: #### L 100.0100, L500.2500 ####[facility] [address] [place], [address] Platelet mean volume (Bld) [Entitic vol] 10.6 fL Normal 6.2-12.0 [facility] Comment on above: Performed By: #### L 100.0100, L500.2500 ####[facility] [address] [place], [address] Platelets (Bld) [#/Vol] 222 10*3/uL Normal 150-450 [facility] Comment on above: Performed By: #### L 100.0100, L500.2500 ####[facility] [address] [place], [address] RBC (Bld) [#/Vol] 5.26 10*6/uL Normal 4.6-6.2 [facility] Comment on above: Performed By: #### L 100.0100, L500.2500 ####[facility] [address] [place], [address] RDW SD 43.3 fl Normal 35.1-43.9 [facility] Comment on above: Performed By: #### L 100.0100, L500.2500 ####[facility] [address] [place], [address] WBC (Bld) [#/Vol] 10.0 10*3/uL Normal 4.4-11.0 [facility] Comment on above: Performed By: #### L 100.0100, L500.2500 ####[facility] [address] [place], [address] Emergency Department Summary on 07-22-2024 Emergency Department Summary [facility] Medical Records Department [address] [place] [address] Emergency Department Summary 07/22/24 MR#: [id number] Acct: [id number] Name: RUTHIE CASTILLO Rep #: [id number] : 1990 34 From: Nito Tapia MD PCP: Dr. Usha Frazier, DO Status:[facility] ER Location: ED HPI HPI - GI History of Present Illness Chief Complaint: Abd Pain Narrative Narrative: 34-year-old male past medical history of Crohn disease, bipolar disorder, previous diverticulitis multiple times, had colostomy with reversal, presents with right lower quadrant abdominal pain in the area of his ostomy that has had since about 730 this morning. He denies any fevers or chills, no nausea or vomiting, no exacerbating or alleviating factors. When he was concerned about was mainly that he has had internal hemorrhoids in the past that have bled. He had mild rectal bleeding with bowel movement today, but he did have a small amount of blood pooling on his underwear afterwards. He denies any chest pain or lightheadedness. He thinks that his internal hemorrhoids may have been bleeding, but it was more than usual. [facility] Medical History PTSD (post-traumatic stress disorder) Bipolar disorder Testicular cyst IBS (irritable bowel syndrome) Hemorrhoids Home Medications ???Medication ???Instructions ???Recorded ???Last Taken ???Type Acetaminophen 1,500 mg PO DAILY@1030 PAIN 11/24/19 06/24/20 History hydrocodone-acetaminophen 5-325mg 1 tab PO Q6H PRN PRN Pain 3 days 10/29/21 Unknown Rx 5mg-325mg #10 TABLETS hydrocodone-acetaminophen 5-325mg 1 tab PO Q6H PRN PRN Pain 3 days 03/29/22 Unknown Rx 5mg-325mg #10 TABLETS naproxen 500 mg tablet 500 mg PO BID #10 tabs 03/29/22 Unknown Rx dicyclomine 20 mg tablet 20 mg PO TID #30 tabs 03/05/24 Unknown Rx ondansetron 4 mg disintegrating 4 mg PO Q6H PRN nausea and 04/21/24 Unknown Rx tablet vomiting #12 tabs Allergy/AdvReac Type Severity Reaction Status Date / Time Iodinated Contrast Media (iv Allergy Intermediate itching Verified 07/22/24 23:25 contrast) and redness dextromethorphan HBr (From Allergy Anaphylaxis Verified 07/22/24 22:22 NyQuil) doxylamine (From NyQuil) Allergy Anaphylaxis Verified 07/22/24 22:22 hornet venom Allergy Anaphylaxis Verified 07/22/24 22:22 mushroom (mushrooms) Allergy Anaphylaxis Verified 07/22/24 22:22 poison mimi extract (Poison Allergy Anaphylaxis Verified 07/22/24 22:22 Mimi Extract) pseudoephedrine HCl (From Allergy Anaphylaxis Verified 07/22/24 22:22 NyQuil) venom-honey bee (bee venom Allergy Anaphylaxis Verified 07/22/24 22:22 (honey bee)) Family History Other Ulcerative colitis Surgical History History of partial colectomy Social History household members: spouse and children Smoking Status: Current every day smoker tobacco type: cigarettes substance use type: does not use ROS ROS ED ROS Narrative Constitutional: No fever, no chills. HEENT: No sore throat. No neck pain. No loss of vision. No rhinorrhea. Cardiovascular: No chest pain. No palpitations. No pedal edema. Respiratory: No cough, no shortness of breath. Abdominal: Right lower quadrant abdominal pain. No nausea. No vomiting. No hematemesis. Positive rectal bleeding. No melanotic stool. Genitourinary: No dysuria. No hematuria. Musculoskeletal: No myalgias. No arthralgias. Neurologic: No headaches. No dizziness. No lightheadedness. Skin: No rash. No change in color. Psychiatric: No depression. No anxiety. EXAM Physical Exam Narrative Exam Narrative: Afebrile. Vital signs noted. HEENT: Normocephalic. Atraumatic. PERRL, EOMI. Neck soft and supple. No point tenderness or step off. Cardiovascular: Regular rate and rhythm. No murmurs, rubs, or gallops appreciated. Respiratory: No tachypnea. Lungs clear to auscultation bilaterally. Gastrointestinal: Abdomen soft, mild tenderness right lower quadrant and area of ostomy with normoactive bowel sounds. Well-healed scar on abdomen. No rebound or guarding. Patient refuses rectal examination. Neurological: Awake. Alert. Nonfocal, nonlateralizing. Skin: No rash. Normal color. No pallor. Musculoskeletal: No pedal edema. Full range of motion extremities. Const Vital Signs: 07/22/24 22:24 Temperature 98.4 F Temperature Source Oral Pulse Rate 88 Respiratory Rate 16 Blood Pressure 147/97 H Blood Pressure Mean 113 Pulse Ox 97 Oxygen Delivery Method Room Air MDM MDM MDM Narrative Medical decision making narrative: Differential diagnosis includes but not limited to internal hemorrhoid bleeding versus diverti (more content not included)... Normal [facility] ABO/Rh (Gel)on 06-29-2024 ABO/Rh Interp Positive Invalid Interpretation Code [facility] Comment on above: Performed By: #### A ECHO ZUNIGA #### [address] [place], [place] [address] ABS (Gel)on 06-29-2024 ABSC Interp (Gel) Negative Normal [facility] Comment on above: Performed By: #### A ECHO ZUNIGA #### [facility] [address] [place], [place] [address] LABORATORYOrdered By: Ross Yip on 06-29-2024 ABO and Rh group Nom (Bld) Blood group O Rh(D) positive Invalid Interpretation Code AO BB Auto SS Blood group antibody screen Ql Negative ABSC (06/29/24 3:15 PM) Normal AO BB Auto SS Abdomen/Pelvis W IV Cont ONL Yon 04-21-2024 Abdomen/Pelvis W IV Cont ONLY [facility] Imaging Services [address] [place], [place] [address] Abdomen/Pelvis W IV Cont ONLY MR#: [id number] Acct: [id number] Name: RUTHIE CASTILLO Rep #: [id number] : 1990 M 34 From: Chaka easley MD PCP: Dr. Usha Frazier, DO Status: REG ER Study: Abdomen/Pelvis W IV Cont ONLY Date of Exam: Exam# [id number] Ordering Dr: Nito Tapia MD [id number] STUDY: CT ABDOMEN AND PELVIS WITH CONTRAST REASON FOR EXAM: Male, 34 years old. Abdominal pain, nausea and vomiting RADIATION DOSAGE (If Supplied By Facility): CTDIvol = ( 18.53 ) mGy, DLP = ( 1295.19 ) mGycm TECHNIQUE: Transaxial images were obtained from the dome of the diaphragm to the symphysis pubis without oral contrast. IV 100mL Isovue-370 was administered. Sagittal and coronal images were reconstructed. Individualized dose optimization techniques were used for this CT. COMPARISON: Comparison is made with prior study dated March 05, 2024. FINDINGS: The visualized lung bases are unremarkable. The visualized portions of the heart are within normal limits. There is decreased attenuation of the liver consistent with steatosis. Mild hepatomegaly. Normal gallbladder and extrahepatic biliary system. Borderline splenomegaly. Normal pancreas. Normal bilateral adrenal glands. Normal right kidney. Normal left kidney. There is a small hiatal hernia. Normal small intestine. Surgical anastomosis is seen in the distal sigmoid colon. Moderate amount of fecal material is seen in the colon. The appendix is visualized and appears normal. Normal abdominal aorta. Normal inferior vena cava. There is borderline retroperitoneal lymphadenopathy with enlarged nodes no greater than 10mm in the short axis diameter. Normal urinary bladder. Normal abdominal wall. Normal osseous structures. CT/Abdomen/Pelvis W IV Cont ONLY IMPRESSION: Borderline hepatomegaly and diffuse fatty infiltration of the liver. The spleen measures upper limits of normal. Moderate amount of fecal material is seen throughout the colon. Anastomosis is seen in the region of the sigmoid colon. Electronically Signed: Chaka Burciaga MD at 8:50 EDT Reading Location ID and State: [facility] / [place] , Service support , CC: Dr. Nito Tapia MD; Dr. Usha Frazier DO Metaphysician: Signed Normal [facility] CBC W/Diff, Automatedon - Absolute Lymph 1.20 X10 3/uL Normal 0.83-4.51 [facility] Comment on above: Performed By: #### L 501.2450, L100.0100, L500.4050 #### [facility] [address] [place], [address] Absolute Neut 5.8 X10 3/uL Normal 2.0-7.7 [facility] Comment on above: Performed By: #### L 501.2450, L100.0100, L500.4050 #### [facility] [address] [place], [address] Basophils/100 WBC (Bld) 0.4 % Normal 0-1 [facility] Comment on above: Performed By: #### L 501.2450, L100.0100, L500.4050 #### [facility] [address] [place], [address] Eosinophils/100 WBC (Bld) 8.1 % High 0-5 [facility] Comment on above: Performed By: #### L 501.2450, L100.0100, L500.4050 #### [facility] [address] [place], [address] Erythrocyte distribution width (RBC) [Ratio] 12.7 % Normal 11.6-14.6 [facility] Comment on above: Performed By: #### L 501.2450, L100.0100, L500.4050 #### [facility] [address] [place], [address] Hematocrit (Bld) [Volume fraction] 52.1 % Normal 40-54 [facility] Comment on above: Performed By: #### L 501.2450, L100.0100, L500.4050 #### [facility] [address] [place], [address] Hemoglobin (Bld) [Mass/Vol] 16.8 g/dL High 13.0-16.5 [facility] Comment on above: Performed By: #### L 501.2450, L100.0100, L500.4050 #### [facility] [address] [place], [address] IG% 0.500 Normal 0.0-0.9 [facility] Comment on above: Result Comment: IG% - Immature Granulocytes (promyelocytes, myelocytes and metamyelocytes) > 1% indicates that a LEFT SHIFT is Present. Performed By: #### L 501.2450, L100.0100, L500.4050 #### [facility] [address] [place], [address] Lymphocytes/100 WBC (Bld) 14.8 % Low 19-41 [facility] Comment on above: Performed By: #### L 501.2450, L100.0100, L500.4050 #### [facility] [address] [place], [address] MCH (RBC) [Entitic mass] 28.6 pg Normal 27.0-32.0 [facility] Comment on above: Performed By: #### L 501.2450, L100.0100, L500.4050 #### [facility] [address] [place], [address] MCHC (RBC) [Mass/Vol] 32.2 g/dL Normal 32-36 [facility] [place] [facility] Comment on above: Performed By: #### L 501.2450, L100.0100, L500.4050 #### [facility] [address] [place], [address] MCV (RBC) [Entitic vol] 88.8 fL Normal 80-94 [facility] Comment on above: Performed By: #### L 501.2450, L100.0100, L500.4050 #### [facility] [address] [place], [address] Monocytes/100 WBC (Bld) 4.6 % Normal 0-10 [facility] Comment on above: Performed By: #### L 501.2450, L100.0100, L500.4050 #### [facility] [address] [place], [address] Neutrophils/100 WBC (Bld) 71.6 % High 47-70 [facility] Comment on above: Performed By: #### L 501.2450, L100.0100, L500.4050 #### [facility] [address] [place], [address] Nucleated RBC (Bld) [#/Vol] 0 10*3/uL Normal 0-5 [facility] Comment on above: Performed By: #### L 501.2450, L100.0100, L500.4050 #### [facility] [address] [place], [address] Platelet mean volume (Bld) [Entitic vol] 10.4 fL Normal 6.2-12.0 [facility] Comment on above: Performed By: #### L 501.2450, L100.0100, L500.4050 #### [facility] [address] [place], [address] Platelets (Bld) [#/Vol] 222 10*3/uL Normal 150-450 [facility] Comment on above: Performed By: #### L 501.2450, L100.0100, L500.4050 #### [facility] [address] [place], [address] RBC (Bld) [#/Vol] 5.87 10*6/uL Normal 4.6-6.2 [facility] Comment on above: Performed By: #### L 501.2450, L100.0100, L500.4050 #### [facility] [address] [place], [address] RDW SD 41.1 fl Normal 35.1-43.9 [facility] Comment on above: Performed By: #### L 501.2450, L100.0100, L500.4050 #### [facility] [address] [place], [address] WBC (Bld) [#/Vol] 8.1 10*3/uL Normal 4.4-11.0 [facility] Comment on above: Performed By: #### L 501.2450, L100.0100, L500.4050 #### [facility] [address] [place], [address] Comprehensive Metabolic Prof [facility] 04-21-2024 Albumin [Mass/Vol] 4.0 g/dL Normal 3.2-5.0 [facility] Comment on above: Performed By: #### L 501.2450, L100.0100, L500.4050 #### [facility] [address] [place], [address] Albumin/Globulin [Mass ratio] 0.9 {ratio} Normal 0.9-2.4 [facility] Comment on above: Performed By: #### L 501.2450, L100.0100, L500.4050 #### [facility] [address] [place], [address] ALK P 97 U/L Normal 45-117 [facility] Comment on above: Performed By: #### L 501.2450, L100.0100, L500.4050 #### [facility] [address] [place], [address] ALT [Catalytic activity/Vol] 42 U/L Normal 16-61 [facility] Comment on above: Performed By: #### L 501.2450, L100.0100, L500.4050 #### [facility] [address] [place], [address] AST [Catalytic activity/Vol] 25 U/L Normal 15-37 [facility] Comment on above: Performed By: #### L 501.2450, L100.0100, L500.4050 #### [facility] [address] [place], [address] Bilirubin [Mass/Vol] 0.40 mg/dL Normal 0.20-1.00 [facility] Comment on above: Result Comment: For patients on eltrombopag therapy, use of Dimension [place] TBIL is not recommended. Performed By: #### L 501.2450, L100.0100, L500.4050 #### [facility] [address] [place], [address] BUN/CRE 16.2 RATIO Normal 10-20 [facility] Comment on above: Performed By: #### L 501.2450, L100.0100, L500.4050 #### [facility] [address] [place], [address] CA,Total 9.8 mg/dL Normal 8.5-10.1 [facility] Comment on above: Performed By: #### L 501.2450, L100.0100, L500.4050 #### [facility] [address] [place], [address] Chloride [Moles/Vol] 105 mmol/L Normal 98-107 [facility] Comment on above: Performed By: #### L 501.2450, L100.0100, L500.4050 #### [facility] [address] [place], [address] CO2 [Moles/Vol] 28.0 mmol/L Normal 21.0-32.0 [facility] Comment on above: Performed By: #### L 501.2450, L100.0100, L500.4050 #### [facility] [address] [place], [address] Creatinine [Mass/Vol] 0.99 mg/dL Normal 0.70-1.30 [facility] [place] [facility] Comment on above: Result Comment: The validity of the calculated GFR GFRAA in patients over 70 years has not been determined. Clinical correlation is essential. Performed By: #### L 501.2450, L100.0100, L500.4050 #### [facility] [address] [place], [address] ECRCL 142.41 ml/min Normal [facility] Comment on above: Performed By: #### L 501.2450, L100.0100, L500.4050 #### [facility] [address] [place], [address] EST GFR - AA 112 mL/min Normal >60 [facility] Comment on above: Result Comment: Afri can [place]ian GFR Calc Performed By: #### L 501.2450, L100.0100, L500.4050 #### [facility] [address] [place], [address] GAP 3 Low 5-15 [facility] Comment on above: Performed By: #### L 501.2450, L100.0100, L500.4050 #### [facility] [address] [place], [address] GFR/1.73 sq M.predicted among non-blacks MDRD (S/P/Bld) [Vol rate/Area] 92 mL/min/{1.73_m2} Normal >60 [facility] Comment on above: Result Comment: Non- GFR Calc Performed By: #### L 501.2450, L100.0100, L500.4050 #### [facility] [address] [place], [address] Globulin (S) [Mass/Vol] 4.6 g/dL High 2.2-4.2 [facility] Comment on above: Performed By: #### L 501.2450, L100.0100, L500.4050 #### [facility] [address] [place], [address] Glucose [Mass/Vol] 111 mg/dL High 74-106 [facility] Comment on above: Result Comment: Fast ing Glucose result from 100 to 125 mg/dL suggests IMPAIRED HOMEOSTASIS per A.D.A. criteria. Performed By: #### L 501.2450, L100.0100, L500.4050 #### [facility] [address] [place], [address] Potassium [Moles/Vol] 4.2 mmol/L Normal 3.5-5.1 [facility] [place] [facility] Comment on above: Performed By: #### L 501.2450, L100.0100, L500.4050 #### [facility] [address] [place], [address] Sodium [Moles/Vol] 136 mmol/L Normal 136-145 [facility] Comment on above: Performed By: #### L 501.2450, L100.0100, L500.4050 #### [facility] [address] [place], [address] T PROT 8.6 g/dL High 6.4-8.2 [facility] Comment on above: Performed By: #### L 501.2450, L100.0100, L500.4050 #### [facility] [address] [place], [address] Urea nitrogen [Mass/Vol] 16 mg/dL Normal 7-18 [facility] Comment on above: Performed By: #### L 501.2450, L100.0100, L500.4050 #### [facility] [address] [place], [address] Emergency Department Summary on 04-21-2024 Emergency Department Summary [facility] Medical Records Department [address] [place] [address] Emergency Department Summary 04/21/24 MR#: [id number] Acct: [id number] Name: RUTHIE CASTILLO Rep #: [id number] : 1990 34 From: Nito Tapia MD PCP: Dr. Usha Frazier, DO Status:REG ER Location: ED HPI HPI - GI History of Present Illness Chief Complaint: Nausea/Vomiting Narrative Narrative: 34-year-old male past medical history of bipolar disorder, Crohn disease, previous diverticulitis with colon resection secondary to abscess presents with his because of nausea and vomiting and upper abdominal pain that has had for the last 1 to 2 days. He relates history that he called off work yesterday because he was not feeling well. He was nauseated. Today, he awoke and stated that he went to work, but was feeling well. He had vomited prior to clocking in. He went up a flight of stairs to his bosses office and told him he was not feeling well, and when he was descending the stairs, vomited over the railing. No blood in his emesis. Last bowel movement was a few hours ago and was normal according to the patient. His boss suggested that he be evaluated. Yesterday, patient states he felt a little bloated. No exacerbating or alleviating factors to his upper abdominal pain. He states he has had colostomies and colostomy reversal as well. Is not really having any lower abdominal pain. [facility] Medical History PTSD (post-traumatic stress disorder) Bipolar disorder Testicular cyst IBS (irritable bowel syndrome) Hemorrhoids Home Medications ???Medication ???Instructions ???Recorded ???Last Taken ???Type Acetaminophen 1,500 mg PO DAILY@1030 PAIN 11/24/19 06/24/20 History hydrocodone-acetaminophen 5-325mg 1 tab PO Q6H PRN PRN Pain 3 days 10/29/21 Unknown Rx 5mg-325mg #10 TABLETS hydrocodone-acetaminophen 5-325mg 1 tab PO Q6H PRN PRN Pain 3 days 03/29/22 Unknown Rx 5mg-325mg #10 TABLETS naproxen 500 mg tablet 500 mg PO BID #10 tabs 03/29/22 Unknown Rx dicyclomine 20 mg tablet 20 mg PO TID #30 tabs 03/05/24 Unknown Rx ondansetron 4 mg disintegrating 4 mg PO Q6H PRN nausea and 04/21/24 Unknown Rx tablet vomiting #12 tabs Allergy/AdvReac Type Severity Reaction Status Date / Time dextromethorphan HBr (From Allergy Anaphylaxis Verified 04/21/24 07:26 NyQuil) doxylamine (From NyQuil) Allergy Anaphylaxis Verified 04/21/24 07:26 hornet venom Allergy Anaphylaxis Verified 04/21/24 07:26 mushroom (mushrooms) Allergy Anaphylaxis Verified 04/21/24 07:26 poison mimi extract (Poison Allergy Anaphylaxis Verified 04/21/24 07:26 Mimi Extract) pseudoephedrine HCl (From Allergy Anaphylaxis Verified 04/21/24 07:26 NyQuil) venom-honey bee (bee venom Allergy Anaphylaxis Verified 04/21/24 07:26 (honey bee)) Family History Other Ulcerative colitis Surgical History History of partial colectomy Social History household members: spouse and children Smoking Status: Current every day smoker tobacco type: cigarettes substance use type: does not use ROS ROS ED ROS Narrative Constitutional: No fever, no chills. HEENT: No sore throat. No neck pain. No loss of vision. No rhinorrhea. Cardiovascular: No chest pain. No palpitations. No pedal edema. Respiratory: No cough, no shortness of breath. Abdominal: Upper abdominal cramping/abdominal pain. Positive nausea and vomiting. Wren bloated yesterday. No problems with diarrhea. Genitourinary: No dysuria. No hematuria. Musculoskeletal: No myalgias. No arthralgias. Neurologic: No headaches. No dizziness. Occasional lightheadedness. Skin: No rash. No change in color. Psychiatric: No depression. No anxiety. EXAM Physical Exam Narrative Exam Narrative: Afebrile. Vital signs noted. HEENT: Normocephalic. Atraumatic. PERRL, EOMI. Neck soft and supple. No point tenderness or step off. Cardiovascular: Regular rate and rhythm. No murmurs, rubs, or gallops appreciated. Respiratory: No tachypnea. Lungs clear to auscultation bilaterally. Gastrointestinal: Abdomen soft, mild epigastric tenderness, with hypoactive bowel sounds. No rebound or guarding. Well-healed scars on lower abdomen. Negative Waddell sign. Neurological: Awake. Alert. Nonfocal, nonlateralizing. Skin: No rash. Normal color. No pallor. Musculoskeletal: No pedal edema. Full range of motion extremities. Const Vital Signs: 04/21/24 07:24 Temperature 98.1 F Temperature Source Temporal Pulse Rate 81 Respiratory Rate 16 Blood Pressure 156/88 H Blood Pressure Mean 110 Pulse Ox 97 Oxygen Delivery Method Room Air MDM MDM M (more content not included)... Normal [facility] Lipaseon 04-21-2024 Lipase [Catalytic activity/Vol] 48 U/L Normal 13-75 [facility] Comment on above: Result Comment: Vonnie schneider note: LIPASE revised reference range effective 23. New Lipase methodology. Expected to produce lower values than the previous assay method. NEW Reference Range: 13 - 75 U/L Performed By: #### L 501.2450, L100.0100, L500.4050 #### [facility] [address] [place], [address] Urinalysis, Completeon 04-21 BACTERIA Normal None Seen [facility] Comment on above: Order Comment: CLEAN CATCH Result Comment: AMANDA ENT DISCHARGED-NO SPECIMEN REC'D Performed By: #### L 400.0001 #### [facility] [address] [place], [address] BILIRUBIN URINE Normal Negative [facility] Comment on above: Order Comment: CLEAN CATCH Result Comment: AMANDA ENT DISCHARGED-NO SPECIMEN REC'D Performed By: #### L 400.0001 #### [facility] [address] [place], [address] Clarity (U) Normal Clear [facility] Comment on above: Order Comment: CLEAN CATCH Result Comment: AMANDA ENT DISCHARGED-NO SPECIMEN REC'D Performed By: #### L 400.0001 #### [facility] [address] [place], [address] Color (U) Normal Yellow [facility] Comment on above: Order Comment: CLEAN CATCH Result Comment: AMANDA ENT DISCHARGED-NO SPECIMEN REC'D Performed By: #### L 400.0001 #### [facility] [address] [place], [address] EPI,SQUAMOUS Normal 0-5 [facility] Comment on above: Order Comment: CLEAN CATCH Result Comment: AMANDA ENT DISCHARGED-NO SPECIMEN REC'D Performed By: #### L 400.0001 #### [facility] [address] [place], [address] GLUCOSE, UR Normal Normal [facility] Comment on above: Order Comment: CLEAN CATCH Result Comment: AMANDA ENT DISCHARGED-NO SPECIMEN REC'D Performed By: #### L 400.0001 #### [facility] [address] [facility] [address] KETONE UR Normal Negative [facility] Comment on above: Order Comment: CLEAN CATCH Result Comment: AMANDA ENT DISCHARGED-NO SPECIMEN REC'D Performed By: #### L 400.0001 #### [facility] [address] [facility] [address] LEUK ESTERASE Normal Negative [facility] Comment on above: Order Comment: CLEAN CATCH Result Comment: AMANDA ENT DISCHARGED-NO SPECIMEN REC'D Performed By: #### L 400.0001 #### [facility] [address] [facility] [address] Mucus Ql (Urine sed) Normal [facility] Comment on above: Order Comment: CLEAN CATCH Result Comment: AMANDA ENT DISCHARGED-NO SPECIMEN REC'D Performed By: #### L 400.0001 #### [facility] [address] [facility] [address] Nitrite Ql (U) Normal Negative [facility] Comment on above: Order Comment: CLEAN CATCH Result Comment: AMANDA ENT DISCHARGED-NO SPECIMEN REC'D Performed By: #### L 400.0001 #### [facility] [address] [facility] [address] OCCULT BLOOD-UR Normal Negative [facility] Comment on above: Order Comment: CLEAN CATCH Result Comment: AMANDA ENT DISCHARGED-NO SPECIMEN REC'D Performed By: #### L 400.0001 #### [facility] [address] [facility] [address] pH UR Normal 5.0 - 8.0 [facility] Comment on above: Order Comment: CLEAN CATCH Result Comment: AMANDA ENT DISCHARGED-NO SPECIMEN REC'D Performed By: #### L 400.0001 #### [facility] [address] [facility] [address] PROT DIPSTX Normal Negative [facility] Comment on above: Order Comment: CLEAN CATCH Result Comment: AMANDA ENT DISCHARGED-NO SPECIMEN REC'D Performed By: #### L 400.0001 #### [facility] [address] [place], [address] RBC Normal 0-5 [facility] Comment on above: Order Comment: CLEAN CATCH Result Comment: AMANDA ENT DISCHARGED-NO SPECIMEN REC'D Performed By: #### L 400.0001 #### [facility] [address] [place], [address] SP.GR. DIPSTX Normal 1.002-1.03 0 [facility] Comment on above: Order Comment: CLEAN CATCH Result Comment: AMANDA ENT DISCHARGED-NO SPECIMEN REC'D Performed By: #### L 400.0001 #### [facility] [address] [place], [address] UR Preservative Normal [facility] Comment on above: Order Comment: CLEAN CATCH Result Comment: AMANDA ENT DISCHARGED-NO SPECIMEN REC'D Performed By: #### L 400.0001 #### [facility] [address] [place], [address] UROBILI Normal Normal [facility] Comment on above: Order Comment: CLEAN CATCH Result Comment: AMANDA ENT DISCHARGED-NO SPECIMEN REC'D Performed By: #### L 400.0001 #### [facility] [address] [place], [address] WBC Normal 0-5 [facility] Comment on above: Order Comment: CLEAN CATCH Result Comment: AMANDA ENT DISCHARGED-NO SPECIMEN REC'D Performed By: #### L 400.0001 #### [facility] [address] [place], [address] Abdomen/Pelvis W IV Cont ONL Yon 03-05-2024 Abdomen/Pelvis W IV Cont ONLY [facility] Imaging Services [address] [place] [address] Abdomen/Pelvis W IV Cont ONLY MR#: [id number] Acct: [id number] Name: RUTHIE CASTILLO Rep #: [id number] : 1990 M 34 From: Chaka easley MD PCP: Dr. Usha Frazier, DO Status: REG ER Study: Abdomen/Pelvis W IV Cont ONLY Date of Exam: Exam# [id number] Ordering Dr: Matty Allen FITTER/WELDER-C [id number] STUDY: CT ABDOMEN AND PELVIS WITH CONTRAST REASON FOR EXAM: Male, 34 years old. Worsening lower abdominal pain. RADIATION DOSAGE (If Supplied By Facility): CTDIvol = ( 16.86 ) mGy, DLP = ( 1364.37 ) mGycm TECHNIQUE: Transaxial images were obtained from the dome of the diaphragm to the symphysis pubis without oral contrast. IV 100mL Isovue-300 was administered. Sagittal and coronal images were reconstructed. Individualized dose optimization techniques were used for this CT. COMPARISON: Comparison is made with prior study August 20, 2020. FINDINGS: The visualized lung bases are unremarkable. The visualized portions of the heart are within normal limits. Normal liver. Normal gallbladder and extrahepatic biliary system. Borderline splenomegaly. Normal pancreas. Normal bilateral adrenal glands. Normal right kidney. Normal left kidney. Normal visualized stomach. Normal small intestine. Surgical anastomosis is seen in the distal sigmoid colon. The ileostomy has been reversed. The appendix is visualized and appears normal. Normal abdominal aorta. Normal inferior vena cava. There is borderline retroperitoneal lymphadenopathy with enlarged nodes no greater than 10mm in the short axis diameter. Normal urinary bladder. Normal abdominal wall. Normal osseous structures. CT/Abdomen/Pelvis W IV Cont ONLY IMPRESSION: No acute abnormality is seen. Electronically Signed: Chaka Burciaga MD at 15:03 EDT , CC: RAMAN Allen; Dr. Usha Frazier, Metaphysician: Signed Normal [facility] CBC W/Diff, Automatedon 06-0 Absolute Lymph 1.31 X10 3/uL Normal 0.83-4.51 [facility] Comment on above: Performed By: #### L 503.6005, L100.0100, L501.2450, L500.4050 ####[facility] [address] [place], [address] Absolute Neut 4.9 X10 3/uL Normal 2.0-7.7 [facility] Comment on above: Performed By: #### L 503.6005, L100.0100, L501.2450, L500.4050 ####[facility] [address] [place], [address] Basophils/100 WBC (Bld) 0.3 % Normal 0-1 [facility] Comment on above: Performed By: #### L 503.6005, L100.0100, L501.2450, L500.4050 ####[facility] [address] [place], [address] Eosinophils/100 WBC (Bld) 3.3 % Normal 0-5 [facility] Comment on above: Performed By: #### L 503.6005, L100.0100, L501.2450, L500.4050 ####[facility] [address] [place], [address] Erythrocyte distribution width (RBC) [Ratio] 12.7 % Normal 11.6-14.6 [facility] Comment on above: Performed By: #### L 503.6005, L100.0100, L501.2450, L500.4050 ####[facility] [address] [place], [address] Hematocrit (Bld) [Volume fraction] 45.0 % Normal 40-54 [facility] Comment on above: Performed By: #### L 503.6005, L100.0100, L501.2450, L500.4050 ####[facility] [address] [place], [address] Hemoglobin (Bld) [Mass/Vol] 15.5 g/dL Normal 13.0-16.5 [facility] Comment on above: Performed By: #### L 503.6005, L100.0100, L501.2450, L500.4050 ####[facility] [address] [place], [address] IG% 0.100 Normal 0.0-0.9 [facility] Comment on above: Result Comment: IG% - Immature Granulocytes (promyelocytes, myelocytes and metamyelocytes) > 1% indicates that a LEFT SHIFT is Present. Performed By: #### L 503.6005, L100.0100, L501.2450, L500.4050 ####[facility] [address] [place], [address] Lymphocytes/100 WBC (Bld) 18.7 % Low 19-41 [facility] Comment on above: Performed By: #### L 503.6005, L100.0100, L501.2450, L500.4050 ####[facility] [address] [place], [address] MCH (RBC) [Entitic mass] 30.2 pg Normal 27.0-32.0 [facility] Comment on above: Performed By: #### L 503.6005, L100.0100, L501.2450, L500.4050 ####[facility] [address] [place], [address] MCHC (RBC) [Mass/Vol] 34.4 g/dL Normal 32-36 [facility] Comment on above: Performed By: #### L 503.6005, L100.0100, L501.2450, L500.4050 ####[facility] [address] [place], [address] MCV (RBC) [Entitic vol] 87.7 fL Normal 80-94 [facility] Comment on above: Performed By: #### L 503.6005, L100.0100, L501.2450, L500.4050 ####[facility] [address] [place], [address] Monocytes/100 WBC (Bld) 7.0 % Normal 0-10 [facility] Comment on above: Performed By: #### L 503.6005, L100.0100, L501.2450, L500.4050 ####[facility] [address] [place], [address] Neutrophils/100 WBC (Bld) 70.6 % High 47-70 [facility] Comment on above: Performed By: #### L 503.6005, L100.0100, L501.2450, L500.4050 ####[facility] [address] [place], [address] Nucleated RBC (Bld) [#/Vol] 0 10*3/uL Normal 0-5 [facility] Comment on above: Performed By: #### L 503.6005, L100.0100, L501.2450, L500.4050 ####[facility] [address] [place], [address] Platelet mean volume (Bld) [Entitic vol] 10.5 fL Normal 6.2-12.0 [facility] Comment on above: Performed By: #### L 503.6005, L100.0100, L501.2450, L500.4050 ####[facility] [address] [place], [address] Platelets (Bld) [#/Vol] 249 10*3/uL Normal 150-450 [facility] Comment on above: Performed By: #### L 503.6005, L100.0100, L501.2450, L500.4050 ####[facility] [address] [place], [address] RBC (Bld) [#/Vol] 5.13 10*6/uL Normal 4.6-6.2 [facility] Comment on above: Performed By: #### L 503.6005, L100.0100, L501.2450, L500.4050 ####[facility] [address] [place], [address] RDW SD 41.0 fl Normal 35.1-43.9 [facility] Comment on above: Performed By: #### L 503.6005, L100.0100, L501.2450, L500.4050 ####[facility] [address] [place], [address] WBC (Bld) [#/Vol] 7.0 10*3/uL Normal 4.4-11.0 [facility] Comment on above: Performed By: #### L 503.6005, L100.0100, L501.2450, L500.4050 ####[facility] [address] [place], [address] Comprehensive Metabolic Prof [facility] 03-05-2024 Albumin [Mass/Vol] 4.4 g/dL Normal 3.2-5.0 [facility] Comment on above: Performed By: #### L 503.6005, L100.0100, L501.2450, L500.4050 ####[facility] [address] [place], [address] Albumin/Globulin [Mass ratio] 1.1 {ratio} Normal 0.9-2.4 [facility] Comment on above: Performed By: #### L 503.6005, L100.0100, L501.2450, L500.4050 ####[facility] [address] [place], [address] ALK P 74 U/L Normal 45-117 [facility] Comment on above: Performed By: #### L 503.6005, L100.0100, L501.2450, L500.4050 ####[facility] [address] [place], [address] ALT [Catalytic activity/Vol] 75 U/L High 16-61 [facility] Comment on above: Performed By: #### L 503.6005, L100.0100, L501.2450, L500.4050 ####[facility] [address] [place], [address] AST [Catalytic activity/Vol] 53 U/L High 15-37 [facility] Comment on above: Performed By: #### L 503.6005, L100.0100, L501.2450, L500.4050 ####[facility] [address] [place], [address] Bilirubin [Mass/Vol] 1.60 mg/dL High 0.20-1.00 [facility] Comment on above: Result Comment: For patients on eltrombopag therapy, use of Dimension [place] TBIL is not recommended. Performed By: #### L 503.6005, L100.0100, L501.2450, L500.4050 ####[facility] [address] [place], [address] BUN/CRE 21.5 RATIO High 10-20 [facility] Comment on above: Performed By: #### L 503.6005, L100.0100, L501.2450, L500.4050 ####[facility] [address] [place], [address] CA,Total 9.5 mg/dL Normal 8.5-10.1 [facility] Comment on above: Performed By: #### L 503.6005, L100.0100, L501.2450, L500.4050 ####[facility] [address] [place], [address] Chloride [Moles/Vol] 105 mmol/L Normal 98-107 [facility] Comment on above: Performed By: #### L 503.6005, L100.0100, L501.2450, L500.4050 ####[facility] [address] [place], [address] CO2 [Moles/Vol] 21.0 mmol/L Normal 21.0-32.0 [facility] Comment on above: Performed By: #### L 503.6005, L100.0100, L501.2450, L500.4050 ####[facility] [address] [place], [address] Creatinine [Mass/Vol] 1.07 mg/dL Normal 0.70-1.30 [facility] Comment on above: Result Comment: The validity of the calculated GFR GFRAA in patients over 70 years has not been determined. Clinical correlation is essential. Performed By: #### L 503.6005, L100.0100, L501.2450, L500.4050 ####[facility] [address] [place], [address] ECRCL 129.67 ml/min Normal [facility] Comment on above: Performed By: #### L 503.6005, L100.0100, L501.2450, L500.4050 ####[facility] [address] [place], [address] EST GFR - AA 102 mL/min Normal >60 [facility] Comment on above: Result Comment: Afri can [place]ian GFR Calc Performed By: #### L 503.6005, L100.0100, L501.2450, L500.4050 ####[facility] [address] [place], [address] GAP 10 Normal 5-15 [facility] Comment on above: Performed By: #### L 503.6005, L100.0100, L501.2450, L500.4050 ####[facility] [address] [place], [address] GFR/1.73 sq M.predicted among non-blacks MDRD (S/P/Bld) [Vol rate/Area] 84 mL/min/{1.73_m2} Normal >60 [facility] Comment on above: Result Comment: Non- GFR Calc Performed By: #### L 503.6005, L100.0100, L501.2450, L500.4050 ####[facility] [address] [place], [address] Globulin (S) [Mass/Vol] 4.0 g/dL Normal 2.2-4.2 [facility] Comment on above: Performed By: #### L 503.6005, L100.0100, L501.2450, L500.4050 ####[facility] [address] [place], [address] Glucose [Mass/Vol] 88 mg/dL Normal 74-106 [facility] Comment on above: Performed By: #### L 503.6005, L100.0100, L501.2450, L500.4050 ####[facility] [address] [place], [address] Potassium [Moles/Vol] 3.1 mmol/L Low 3.5-5.1 [facility] Comment on above: Performed By: #### L 503.6005, L100.0100, L501.2450, L500.4050 ####[facility] [address] [place], [address] Sodium [Moles/Vol] 136 mmol/L Normal 136-145 [facility] Comment on above: Performed By: #### L 503.6005, L100.0100, L501.2450, L500.4050 ####[facility] [address] [place], [address] T PROT 8.4 g/dL High 6.4-8.2 [facility] Comment on above: Performed By: #### L 503.6005, L100.0100, L501.2450, L500.4050 ####[facility] [address] [place], [address] Urea nitrogen [Mass/Vol] 23 mg/dL High 7-18 [facility] Comment on above: Performed By: #### L 503.6005, L100.0100, L501.2450, L500.4050 ####[facility] [address] [place], [address] Emergency Department Summary on 03-05-2024 Emergency Department Summary [facility] Medical Records Department [address] [place] [address] Emergency Department Summary 03/05/24 MR#: [id number] Acct: [id number] Name: RUTHIE CASTILLO Rep #: [id number] : 1990 34 From: Matty Allen FITTER/WELDER-Jose Alfredo PCP: Dr. Usha Frazier, DO Status:REG ER Location: ED HPI History of Present Illness Chief Complaint: Abd Pain Narrative Narrative: Patient is a 34-year-old male with history of chronic abdominal pain, multiple abdominal surgeries, obesity, PTSD. Patient presents to the emergency department with 3 days of worsening lower abdominal pain. Patient has had diverticulitis, colon resection, ileostomy with reversal. 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 He denies any fever chills nausea or vomiting. Patient dates that the pain is consistent and he is concerned that something else is going on. PFS PFSH Medical History Bipolar disorder Hemorrhoids IBS (irritable bowel syndrome) PTSD (post-traumatic stress disorder) Testicular cyst Home Medications ???Medication ???Instructions ???Recorded ???Last Taken ???Type Acetaminophen 1,500 mg PO DAILY@1030 PAIN 11/24/19 06/24/20 History hydrocodone-acetaminophen 5-325mg 1 tab PO Q6H PRN PRN Pain 3 days 10/29/21 Unknown Rx 5mg-325mg #10 TABLETS hydrocodone-acetaminophen 5-325mg 1 tab PO Q6H PRN PRN Pain 3 days 03/29/22 Unknown Rx 5mg-325mg #10 TABLETS naproxen 500 mg tablet 500 mg PO BID #10 tabs 03/29/22 Unknown Rx dicyclomine 20 mg tablet 20 mg PO TID #30 tabs 03/05/24 Unknown Rx Allergy/AdvReac Type Severity Reaction Status Date / Time dextromethorphan HBr (From Allergy Anaphylaxis Verified 11/24/22 17:18 NyQuil) doxylamine (From NyQuil) Allergy Anaphylaxis Verified 11/24/22 17:18 hornet venom Allergy Anaphylaxis Verified 11/24/22 17:18 mushroom (mushrooms) Allergy Anaphylaxis Verified 11/24/22 17:18 poison mimi extract (Poison Allergy Anaphylaxis Verified 11/24/22 17:18 Mimi Extract) pseudoephedrine HCl (From Allergy Anaphylaxis Verified 11/24/22 17:18 NyQuil) venom-honey bee (bee venom Allergy Anaphylaxis Verified 11/24/22 17:18 (honey bee)) Family History Other Ulcerative colitis Surgical History History of partial colectomy Social History household members: spouse and children Smoking Status: Current every day smoker tobacco type: cigarettes substance use type: does not use ROS ROS ED ROS Narrative Constitutional: Negative for fever, chills, weight loss, weakness Eyes: Negative for vision loss, vision change, double vision ENT: Negative for any sore throat, ear pain, congestion Cardiovascular: Negative for any chest pain, tightness, palpitations Respiratory: Negative for any cough, sputum production, hemoptysis, dyspnea, dyspnea on exertion, orthopnea Gastrointestinal: Negative for any nausea, vomiting, diarrhea, constipation, blood in stool, blood in vomit. Positive for abdominal pain : Negative for any urinary frequency, dysuria, retention, blood in urine Muscle skeletal: Negative for any neck pain, back pain Neurological: Negative for any headache, syncope, dizziness Skin: Negative for any rashes, itching, abrasions, lacerations Psychiatric: Negative for any depression, anxiety, stress, suicidal ideation, homicidal ideation Hematologic: Negative for any excessive bruising, easy bleeding EXAM Physical Exam Narrative Exam Narrative: Vital signs reviewed. HEET: Head normocephalic atraumatic, TMs clear bilaterally. Posterior pharynx is clear, moist mucous membranes. Nares clear bilaterally. Neck: Supple with no lymphadenopathy or tenderness. No signs of meningismus. Cardiac: Regular rate and rhythm no murmurs gallops or rubs, equal peripheral pulses bilaterally. Respiratory: Lungs clear to auscultation bilaterally. No chest tenderness. Abdomen: Soft, nondistended. No abdominal bruit or pulsatile masses. No hepatosplenomegaly. Patient has tenderness to bilateral lower abdominal quadrants, no peritoneal signs. Active bowel sounds in all quadrants. Extremities: No peripheral edema, no signs of gross trauma or deformity. Active full range of motion of all extremities. Neuro: Cranial nerves II through XII intact, no focal neurological deficits. Skin: Clean dry and intact with no rash, purpura, petechiae, vesicles or pustules. Backs/flank: No CVA tenderness, no midline spinal tenderness, no deformity. Psych: Normal mood and affect. No SI, HI or acute psychosis. Const Vital Signs: 03/05/24 13 (more content not included)... Normal [facility] Lactic Acidon 03-05-2024 Lactate [Moles/Vol] 0.9 mmol/L Normal 0.4-1.9 [facility] Comment on above: Order Comment: Y Performed By: #### L 503.6001, L100.0100, L501.2450, L500.4050 ####[facility] [address] [place], [address] Lipaseon 03-05-2024 Lipase [Catalytic activity/Vol] 42 U/L Normal 13-75 [facility] Comment on above: Result Comment: Vonnie schneider note: LIPASE revised reference range effective 23. New Lipase methodology. Expected to produce lower values than the previous assay method. NEW Reference Range: 13 - 75 U/L Performed By: #### L 503.6005, L100.0100, L501.2450, L500.4050 ####[facility] [address] [place], [address] Urinalysis, Completeon 03-05 BACTERIA 0 SEEN Normal None Seen [facility] Comment on above: Order Comment: CLEAN CATCH Performed By: #### L 400.0001 ####[facility] [address] [place], [address] EPI,SQUAMOUS 0 SEEN Normal 0-5 [facility] Comment on above: Order Comment: CLEAN CATCH Performed By: #### L 400.0001 ####[facility] [address] [place], [address] Mucus Ql (Urine sed) 0 SEEN Normal [facility] Comment on above: Order Comment: CLEAN CATCH Performed By: #### L 400.0001 ####[facility] [address] [place], [address] RBC 0 SEEN Normal 0-5 [facility] Comment on above: Order Comment: CLEAN CATCH Performed By: #### L 400.0001 ####[facility] [address] [place], [address] WBC 0 SEEN Normal 0-5 [facility] Comment on above: Order Comment: CLEAN CATCH Performed By: #### L 400.0001 ####[facility] [address] [place], [address] .Auto Diffon 09-06-2023 Basophil, Absolute 0.1 10 3/mcL Normal 0.0-0.2 [facility] ([place]) Comment on above: Performed By: #### G FR, ADIFF, TROPHS, CBC, ANEU, MDW, CMP #### [address] [address] Basophils/100 WBC (Bld) 0.8 % Normal 0.0-2.5 [facility] ([place]) Comment on above: Performed By: #### G FR, ADIFF, TROPHS, CBC, ANEU, MDW, CMP #### [address] [address] Eosinophil, Absolute 0.7 10 3/mcL High 0.0-0.4 [facility] ([place]) Comment on above: Performed By: #### G FR, ADIFF, TROPHS, CBC, ANEU, MDW, CMP #### [address] [address] Eosinophils/100 WBC (Bld) 6.9 % Normal 0.0-7.0 [facility] [place] Comment on above: Performed By: #### G FR, ADIFF, TROPHS, CBC, ANEU, MDW, CMP #### [address] [address] Lymphocyte, Absolute 1.7 10 3/mcL Normal 0.8-3.9 [facility] ([place] Comment on above: Performed By: #### G FR, ADIFF, TROPHS, CBC, ANEU, MDW, CMP #### [address] [address] Lymphocytes/100 WBC (Bld) 17.7 % Normal 10.0-50.0 [facility] ([place] Comment on above: Performed By: #### G FR, ADIFF, TROPHS, CBC, ANEU, MDW, CMP #### [address] [address] Monocyte, Absolute 0.6 10 3/mcL Normal 0.2-1.0 [facility] ([place] Comment on above: Performed By: #### G FR, ADIFF, TROPHS, CBC, ANEU, MDW, CMP #### [address] [address] Monocytes/100 WBC (Bld) 6.5 % Normal 1.7-13.0 [facility] ([place]) Comment on above: Performed By: #### G FR, HAYLEE, TROPHS, CBC, VAUGHN, W, CMP #### [address] [address] Neutrophils/100 WBC (Bld) 68.1 % Normal 37.0-80.0 [facility] ([place]) Comment on above: Performed By: #### G FR, ADIFF, TROPHS, CBC, VAUGHN, MDW, CMP #### [address] [address] .GFRon 09-06-2023 GFR 128 ml/min/1.73sqm Normal [facility] ([place]) Comment on above: Result Comment: GFR Population [...] square meters Performed By: #### G FR, HAYLEE, TROPHS, CBC, VAUGHN, MDW, CMP #### [address] [address] GFR Non- 105 ml/min/1.73sqm Normal [facility] ([place]) Comment on above: Result Comment: GFR Population [...] ADIFF, TROPHS, CBC, ANEU, MDW, CMP #### [address] [address] .MDWon 09-06-2023 Monocyte Distribution Width 17.93 Normal 0.00-20.00 [facility] ([place] Comment on above: Result Comment: For ED adult patients suspected of sepsis, MDW<=20.0 does not rule out sepsis or risk of sepsis Performed By: #### G FR, ADIFF, TROPHS, CBC, ANEU, MDW, CMP #### [address] [address] .NEUABSon 09-06-2023 Neutrophil, Absolute 6.4 10 3/mcL High 2.9-6.2 [facility] [place] Comment on above: Performed By: #### G FR, ADIFF, TROPHS, CBC, VAUGHN, MDW, CMP #### [address] [address] CBCon 09-06-2023 Erythrocyte distribution width (RBC) [Ratio] 12.9 % Normal 11.5-14.5 [facility] [place] Comment on above: Performed By: #### G FR, ADIFF, TROPHS, CBC, ANEU, MDW, CMP #### [address] [address] Hematocrit (Bld) [Volume fraction] 45.1 % Normal 42.0-52.0 [facility] [place] Comment on above: Performed By: #### G FR, ADIFF, TROPHS, CBC, ANEU, MDW, CMP #### [address] [address] Hgb 15.2 G/dL Normal 14.0-18.0 [facility] ([place] Comment on above: Performed By: #### G FR, ADIFF, TROPHS, CBC, ANEU, MDW, CMP #### [address] [address] MCH (RBC) [Entitic mass] 29.2 pg Normal 27.0-31.2 [facility] [place] Comment on above: Performed By: #### G FR, ADIFF, TROPHS, CBC, ANEU, MDW, CMP #### [address] [address] MCHC 33.8 G/dL Normal 31.8-35.4 [facility] [place] Comment on above: Performed By: #### G FR, ADIFF, TROPHS, CBC, ANEU, MDW, CMP #### [place] [address] MCV (RBC) [Entitic vol] 86.4 fL Normal 80.0-94.0 [facility] ([place] Comment on above: Performed By: #### G FR, ADIFF, TROPHS, CBC, ANEU, MDW, CMP #### [address] [address] Platelet 256 10 3/mcL Normal 130-400 [facility] ([place] Comment on above: Performed By: #### G FR, ADIFF, TROPHS, CBC, ANEU, MDW, CMP #### [address] [address] Platelet mean volume (Bld) [Entitic vol] 7.9 fL Normal 7.4-10.4 [facility] ([place] Comment on above: Performed By: #### G FR, ADIFF, TROPHS, CBC, ANEU, MDW, CMP #### [address] [address] RBC 5.22 10 6/mcL Normal 4.04-6.13 [facility] ([place] Comment on above: Performed By: #### G FR, ADIFF, TROPHS, CBC, ANEU, MDW, CMP #### [place] [id number] WBC 9.5 10 3/mcL Normal 4.6-10.8 [facility] ([place] Comment on above: Performed By: #### G , HAYLEE, TROPHS, CBC, ARIEL MENDES, CMP #### [address] [address] CMPon 09-06-2023 Albumin Level 3.9 G/dL Normal 3.5-5.0 [facility] ([place] Comment on above: Performed By: #### G FR, ADOZ, TROPHS, CBC, VAUGHN, W, CMP #### [address] [address] Albumin/Globulin [Mass ratio] 1.0 {ratio} Low 1.1-2.5 [facility] ([place] Comment on above: Performed By: #### G , ADOZ, TROPHS, CBC, ARIEL MENDES, CMP #### [address] [address] ALP [Catalytic activity/Vol] 85 U/L Normal 40-135 [facility] ([place] Comment on above: Performed By: #### G , ADOZ, TROPHS, CBC, ARIEL MENDES, CMP #### [address] [address] ALT [Catalytic activity/Vol] 87 U/L High 16-63 [facility] ([place] Comment on above: Performed By: #### G , ADOZ, TROPHS, CBC, VAUGHN, ARIEL, CMP #### [address] [address] AST [Catalytic activity/Vol] 45 U/L High 10-40 [facility] ([place] Comment on above: Performed By: #### G FR, ADOZ, TROPHS, CBC, ARIEL MENDES, CMP #### [address] [address] Bili Total 0.6 mg/dL Normal 0.2-1.0 [facility] ([place] Comment on above: Result Comment: Use of this assay is not recommended for patients undergoing treatment with eltrombopag due to the potential for falsely elevated results. Performed By: #### G FR, ADIFF, TROPHS, CBC, ANEU, MDW, CMP #### [address] [address] BUN/Creatinine Ratio 12 ratio Normal 7-27 [facility] ([place] Comment on above: Performed By: #### G FR, ADIFF, TROPHS, CBC, ANEU, MDW, CMP #### [address] [address] Calcium [Mass/Vol] 9.0 mg/dL Normal 8.4-10.2 [facility] ([place] Comment on above: Performed By: #### G FR, ADIFF, TROPHS, CBC, ANEU, MDW, CMP #### [address] [address] Chloride [Moles/Vol] 101 mmol/L Normal 98-107 [facility] ([place] Comment on above: Performed By: #### G FR, ADIFF, TROPHS, CBC, ANEU, MDW, CMP #### [address] [address] CO2 [Moles/Vol] 27 mmol/L Normal 22-29 [facility] ([place] Comment on above: Performed By: #### G FR, ADIFF, TROPHS, CBC, ANEU, MDW, CMP #### [address] [address] Creatinine [Mass/Vol] 0.84 mg/dL Normal 0.70-1.30 [facility] ([place] Comment on above: Performed By: #### G FR, ADIFF, TROPHS, CBC, ANEU, MDW, CMP #### [address] [address] Electrolyte Balance 11.0 mEq/L Normal 4.0-15.0 [facility] ([place] Comment on above: Performed By: #### G FR, ADIFF, TROPHS, CBC, ANEU, MDW, CMP #### [address] [address] Globulin 4.0 G/dL Normal [facility] ([place] Comment on above: Performed By: #### G FR, ADIFF, TROPHS, CBC, ANEU, MDW, CMP #### [address] [address] Glucose [Mass/Vol] 102 mg/dL Normal 70-105 [facility] ([place] Comment on above: Performed By: #### G FR, ADIFF, TROPHS, CBC, ANEU, MDW, CMP #### [address] [address] Potassium [Moles/Vol] 3.7 mmol/L Normal 3.5-5.1 [facility] ([place] Comment on above: Performed By: #### G FR, ADIFF, TROPHS, CBC, ANEU, MDW, CMP #### [address] [address] Sodium [Moles/Vol] 139 mmol/L Normal 136-145 [facility]) Comment on above: Performed By: #### G FR, ADIFF, TROPHS, CBC, ANEU, MDW, CMP #### [address] [address] Total Protein 7.9 G/dL Normal 6.4-8.2 [facility]) Comment on above: Performed By: #### G FR, ADIFF, TROPHS, CBC, ANEU, MDW, CMP #### [address] [address] Urea nitrogen [Mass/Vol] 10 mg/dL Normal 7-18 [facility]) Comment on above: Performed By: #### G FR, ADIFF, TROPHS, CBC, ANEU, MDW, CMP #### [address] [address] [address] ABD/PELVIS W/ IV CONTRAST ONLYon 09-06-2023 [...] 09/06/2023 8:41:14 PM Ordering Provider: SOPHIA LEA [facility] ([place] LABORATORYOrdered By: SYSTEM SYSTEM on 09-06-2023 Albumin [...] I High Sensitivity 5.7 ng/L Normal 0.0-76.2 [facility] ([place] Comment on above: Performed By: #### G , JE LEACH, CBC, ANEU, MDW, CMP #### Stefan [address] [address] XR CHEST 1 VIEWon 09-06-2023 XR CHEST [...] 09/06/2023 6:20:15 PM Ordering Provider: SOPHIA LEA [facility] ([place]) Absolute lymphocyte countOrd ered By: Dr. aTpia on 11-24-2022 Lymphocytes Auto (Unsp spec) [#/Vol] 0.62 10*3/uL 0.83-4.51 [facility] Basophil percentageOrdered B y: Dr. Tapia on 11-24-2022 Basophil percentage 0-5 SEEN /hpf 0-5 [facility] Basophils/100 WBC (Bld) 0.5 % 0-1 [facility] Chloride [Moles/Vol] 106 mmol/L 98-107 [facility] Eosinophils/100 WBC (Bld) 1.8 % 0-5 [facility] Glucose [Mass/Vol] 116 mg/dL 74-106 [facility] Comment on above: Fasting Glucose resu lt from 100 to 125 mg/dL suggests IMPAIRED HOMEOSTASIS per A.D.A. criteria. Neutrophils (Bld) [#/Vol] 3.3 10*3/uL 2.0-7.7 [facility] Neutrophils/100 WBC (Bld) 73.1 % 47-70 [facility] Potassium [Moles/Vol] 3.3 mmol/L 3.5-5.1 [facility] Sodium [Moles/Vol] 138 mmol/L 136-145 [facility] WBC (Bld) [#/Vol] 4.4 10*3/uL 4.4-11.0 [facility] Bilirubin Test strip Ql (U)O rdered By: Dr. Tapia on 11-24-2022 Bilirubin Ql (U) Negative Negative [facility] Blood erythrocytes count (nu mber/volume)Ordered By: Dr. Tapia on 11-24-2022 RBC (Bld) [#/Vol] 5.45 10*6/uL 4.6-6.2 [facility] Blood hemoglobin measurement (mass/volume)Ordered By: Dr. Tapia on 11-24-2022 Hemoglobin (Bld) [Mass/Vol] 15.8 g/dL 13.0-16.5 [facility] Blood lymphocytes/100 leukoc ytesOrdered By: Dr. Tapia on 11-24-2022 Lymphocytes/100 WBC (Bld) 14.0 % 19-41 [facility] Blood monocytes/100 leukocyt esOrdered By: Dr. Tapia on 11-24-2022 Monocytes/100 WBC (Bld) 9.7 % 0-10 [facility] Blood platelet mean volumeOr dered By: Dr. Tapia on 11-24-2022 Platelet mean volume (Bld) [Entitic vol] 10.8 fL 6.2-12.0 [facility] Determination of erythrocyte mean corpuscular volume (MCV)Ordered By: Dr. Tapia on 11-24-2022 MCV (RBC) [Entitic vol] 87.7 fL 80-94 [facility] Hematocrit Auto (Bld) [Volum e fraction]Ordered By: Dr. Tapia on 11-24-2022 Hematocrit (Bld) [Volume fraction] 47.8 % 40-54 [facility] Ketones Test strip Ql (U)Ord ered By: Dr. Tapia on 11-24-2022 Ketones Ql (U) 15 mg/dl Negative [facility] Laboratory - Chemistry and C hemistry - challengeOrdered By: Dr. Tapia on 11-24-2022 CO2 [Moles/Vol] 25.0 mmol/L 21.0-32.0 [facility] Urea nitrogen/Creatinine [Mass ratio] 17.2 mg/mg 10-20 [facility] - Hematology and Cell countsOrdered By: Dr. Tapia on 11-24-2022 Erythrocyte distribution width (RBC) [Entitic vol] 42.5 fL 35.1-43.9 [facility] Erythrocyte distribution width (RBC) [Ratio] 13.3 % 11.6-14.6 [facility] Immature granulocytes/100 WBC (Bld) 0.900 % 0.0-0.9 [facility] Comment on above: IG% - Immature Granu locytes (promyelocytes, myelocytes and metamyelocytes) > 1% indicates that a LEFT SHIFT is Present. MCH (RBC) [Entitic mass] 29.0 pg 27.0-32.0 [facility] Nucleated RBC/100 WBC (Bld) [Ratio] 0 % 0-5 [facility] MCHC Auto (RBC) [Mass/Vol]Or dered By: Dr. Tapia on 11-24-2022 MCHC (RBC) [Mass/Vol] 33.1 g/dL 32-36 [facility] Mucus LM Ql (Urine sed)Order ed By: Dr. Tapia on 11-24-2022 Mucus Ql (Urine sed) 0 SEEN /hpf [facility] Nitrite Test strip Ql (U)Ord ered By: Dr. Tapia on 11-24-2022 Nitrite Ql (U) Negative Negative [facility] No Panel InformationOrdered By: Dr. Tapia on 11-24-2022 Estimated Creatinine Clearance Calc 117.58 ml/min [facility] Estimated GFR (MDRD) Amer 112 mL/min >60 [facility] Comment on above: GFR Calc Estimated GFR (MDRD) Non-Af Amer 93 mL/min >60 [facility] Comment on above: Non- GFR Calc Troponin I High Sensitivity 8 pg/mL 3.0-78.0 [facility] Comment on above: Please Note: New Anya t Units and Gender Specific Reference Ranges. For more information see Policy Stat Procedure [place] High Sensitivity Troponin (TNIH) and attachments. Platelets bldOrdered By: Dr. Tapia on 11-24-2022 Platelets (Bld) [#/Vol] 195 10*3/uL 150-450 [facility] Protein Test strip Ql (U)Ord ered By: Dr. Tapia on 11-24-2022 Protein Ql (U) 30 mg/dl Negative [facility] Serum or plasma calcium adrianne urement (mass/volume)Ordered By: Dr. Tapia on 11-24-2022 Calcium [Mass/Vol] 8.7 mg/dL 8.5-10.1 [facility] Serum or plasma creatinine m easurement (mass/volume)Ordered By: Dr. Tapia on 11-24-2022 Creatinine [Mass/Vol] 0.99 mg/dL 0.70-1.30 [facility] Comment on above: The validity of the calculated GFR & GFRAA in patients over 70 years has not been determined. Clinical correlation is essential. Serum or plasma urea nitroge n measurement (mass/volume)Ordered By: Dr. Tapia on 11-24-2022 Urea nitrogen [Mass/Vol] 17 mg/dL 7-18 [facility] Squamous epithelial cells de tection in urine sediment by light microscopyOrdered By: Dr. Tapia on 11-24-2022 Epithelial cells.squamous LM Ql (Urine sed) 0 SEEN /hpf 0-5 [facility] Thin prep Papanicolaou smear with manual screeningOrdered By: Dr. Tapia on 11-24-2022 Thin prep Papanicolaou smear with manual screening 7 5-15 [facility] Urine blood detectionOrdered By: Dr. Tapia on 11-24-2022 RBC Ql (U) 10 /ul Negative [facility] RBC Ql (U) 0-5 SEEN /hpf 0-5 [facility] Urine clarityOrdered By: Dr. Tapia on 11-24-2022 Clarity (U) Clear Clear [facility] Urine color determinationOrd ered By: Dr. Tapia on 11-24-2022 Color (U) Yellow Yellow [facility] Urine glucose detectionOrder ed By: Dr. Tapia on 11-24-2022 Glucose Ql (U) Normal mg/dl Normal [facility] Urine leukocyte esterase det ection by dipstickOrdered By: Dr. Tapia on 11-24-2022 Leukocyte esterase Test strip Ql (U) Negative Negative [facility] Urine pHOrdered By: Dr. Adore felix on 11-24-2022 pH (U) 5.0 [pH] 5.0 - 8.0 [facility] Urine sediment bacteria coun t by microscopy (number/high power field)Ordered By: Dr. Tapia on 11-24-2022 Bacteria LM.HPF (Urine sed) [#/Area] 0 /[HPF] None Seen [facility] Urine specific gravity measu rementOrdered By: Dr. Tapia on 11-24-2022 Specific gravity (U) [Rel density] 1.025 1.002-1.03 0 [facility] Urobilinogen Auto test strip Ql (U)Ordered By: Dr. Tapia on 11-24-2022 Urobilinogen Ql (U) Normal mg/dl Normal [facility] CBC W Auto Differential pane l (Bld)on 11-23-2022 Basophils (Bld) [#/Vol] 10*3/uL Normal <0.11 [facility] Comment on above: Order Comment: Speci men Type: BLOOD SPECIMEN Ordering Facility: [facility] Address: [address] [place] [address] Performed By: #### 5 7021-8 #### [facility] CLIA [id number] [address] [place] [address] [place] Basophils/100 WBC (Bld) 0.2 % Normal [facility] Comment on above: Order Comment: Speci men Type: BLOOD SPECIMEN Ordering Facility: [facility] Address: [address] [place] [address] Performed By: #### 5 7021-8 #### [facility] CLIA [id number] [address] [place] [address] [place] Differential cell count method Nom (Bld) Auto Normal [facility] Comment on above: Order Comment: Speci men Type: BLOOD SPECIMEN Ordering Facility: [facility] Address: [address] [place] [address] Performed By: #### 5 7021-8 #### [facility] CLIA [id number] [address] [place] [address] [place] Eosinophils (Bld) [#/Vol] 0.51 10*3/uL High <0.46 [facility] Comment on above: Order Comment: Speci men Type: BLOOD SPECIMEN Ordering Facility: [facility] Address: [address] [place] [address] Performed By: #### 5 7021-8 #### [facility] CLIA [id number] [address] [place] Eosinophils/100 WBC (Bld) 8.4 % Normal [facility] Comment on above: Order Comment: Speci men Type: BLOOD SPECIMEN Ordering Facility: [facility] Address: [address] [place] [address] Performed By: #### 5 7021-8 #### [facility] CLIA [id number] [address] [place] [address] [place] Erythrocyte distribution width (RBC) [Ratio] 13.1 % Normal 11.5-15.0 [facility] Comment on above: Order Comment: Speci men Type: BLOOD SPECIMEN Ordering Facility: [facility] Address: [address] [place] [place] [address] Performed By: #### 5 7021-8 #### [facility] CLIA [id number] [address] [place] [id number] [place] [address] [place] Hematocrit (Bld) [Volume fraction] 47.6 % Normal 39.0-51.0 [facility] Comment on above: Order Comment: Speci men Type: BLOOD SPECIMEN Ordering Facility: [facility] Address: [address] [place] [address] Performed By: #### 5 7021-8 #### [facility] CLIA [id number] [address] [place] [address] [place] Hemoglobin (Bld) [Mass/Vol] 15.9 g/dL Normal 13.0-17.0 [facility] Comment on above: Order Comment: Speci men Type: BLOOD SPECIMEN Ordering Facility: [facility] Address: [address] [place] [address] Performed By: #### 5 7021-8 #### [facility] CLIA [id number] [address] [place] [address] [place] Immature granulocytes (Bld) [#/Vol] 0.05 10*3/uL Normal <0.10 [facility] Comment on above: Order Comment: Speci men Type: BLOOD SPECIMEN Ordering Facility: [facility] Address: [address] [place] [address] Performed By: #### 5 7021-8 #### [facility] CLIA [id number] [address] [place] [address] [place] Immature granulocytes/100 WBC (Bld) 0.8 % Normal [facility] Comment on above: Order Comment: Speci men Type: BLOOD SPECIMEN Ordering Facility: [facility] Address: [address] [place] [address] Performed By: #### 5 7021-8 #### [facility] CLIA [id number] [address] [place] Lymphocytes (Bld) [#/Vol] 0.44 10*3/uL Low 1.00-4.00 [facility] Comment on above: Order Comment: Speci men Type: BLOOD SPECIMEN Ordering Facility: [facility] Address: [address] [place] [address] Performed By: #### 5 7021-8 #### [facility] CLIA [id number] [address] Lymphocytes/100 WBC (Bld) 7.2 % Normal [facility] Comment on above: Order Comment: Speci men Type: BLOOD SPECIMEN Ordering Facility: [facility] Address: [address] [place] [address] Performed By: #### 5 7021-8 #### [facility] CLIA [id number] [address] [place] [address] MCH (RBC) [Entitic mass] 29.3 pg Normal 26.0-34.0 [facility] Comment on above: Order Comment: Speci men Type: BLOOD SPECIMEN Ordering Facility: [facility] Address: [address] [place] [address] Performed By: #### 5 7021-8 #### [facility] CLIA [id number] [address] [place] [address] [place] MCHC (RBC) [Mass/Vol] 33.4 g/dL Normal 30.5-36.0 [facility] Comment on above: Order Comment: Speci men Type: BLOOD SPECIMEN Ordering Facility: [facility] Address: [address] [place] [address] Performed By: #### 5 7021-8 #### [facility] CLIA [id number] [address] [place] MCV (RBC) [Entitic vol] 87.8 fL Normal 80.0-100.0 [facility] Comment on above: Order Comment: Speci men Type: BLOOD SPECIMEN Ordering Facility: [facility] Address: [address] [place] [address] Performed By: #### 5 7021-8 #### [facility] CLIA [id number] [address] [place] [address] [place] Monocytes (Bld) [#/Vol] 0.49 10*3/uL Normal <0.87 [facility] Comment on above: Order Comment: Speci men Type: BLOOD SPECIMEN Ordering Facility: [facility] Address: [address] [place] [address] Performed By: #### 5 7021-8 #### [facility] CLIA [id number] [address] [place] Monocytes/100 WBC (Bld) 8.0 % Normal [facility] Comment on above: Order Comment: Speci men Type: BLOOD SPECIMEN Ordering Facility: [facility] Address: [address] [place] [address] Performed By: #### 5 7021-8 #### [facility] CLIA [id number] [address] [place] [address] [place] Neutrophils (Bld) [#/Vol] 4.59 10*3/uL Normal 1.45-7.50 [facility] Comment on above: Order Comment: Speci men Type: BLOOD SPECIMEN Ordering Facility: [facility] Address: [address] [place] [address] Performed By: #### 5 7021-8 #### [facility] CLIA [id number] [address] [place], [place] [address] [place] [address] [place] Neutrophils/100 WBC (Bld) 75.4 % Normal [facility] Comment on above: Order Comment: Speci men Type: BLOOD SPECIMEN Ordering Facility: [facility] Address: [address] [place] [address] Performed By: #### 5 7021-8 #### [facility] CLIA [id number] [address] [place] [id number] [place] Nucleated RBC (Bld) [#/Vol] Normal [facility] Comment on above: Order Comment: Speci men Type: BLOOD SPECIMEN Ordering Facility: [facility] Address: [address] [address] Performed By: #### 5 7021-8 #### [facility] CLIA [id number] [address] [place] [address] [place] Nucleated RBC/100 WBC (Bld) [Ratio] Normal [facility] Comment on above: Order Comment: Speci men Type: BLOOD SPECIMEN Ordering Facility: [facility] Address: [address] [address] Performed By: #### 5 7021-8 #### [facility] CLIA [id number] [address] [place] [address] [place] Platelet mean volume (Bld) [Entitic vol] 10.4 fL Normal 9.0-12.7 [facility] Comment on above: Order Comment: Speci men Type: BLOOD SPECIMEN Ordering Facility: [facility] Address: [address] [address] Performed By: #### 5 7021-8 #### [facility] CLIA [id number] [address] [place] [address] [place] Platelets (Bld) [#/Vol] 186 10*3/uL Normal 150-400 [facility] Comment on above: Order Comment: Speci men Type: BLOOD SPECIMEN Ordering Facility: [facility] Address: [address] [address] Performed By: #### 5 7021-8 #### [facility] CLIA [id number] [address] [place] [address] [place] RBC (Bld) [#/Vol] 5.42 10*6/uL Normal 4.20-6.00 [facility] Comment on above: Order Comment: Speci men Type: BLOOD SPECIMEN Ordering Facility: [facility] Address: [address] [address] Performed By: #### 5 7021-8 #### [facility] CLIA [id number] [address] [place] [address] [facility] WBC (Bld) [#/Vol] 6.09 10*3/uL Normal 3.70-11.00 [facility] Comment on above: Order Comment: Speci men Type: BLOOD SPECIMEN [facility]ing Facility: [facility] Address: [address] [place] [address] Performed By: #### 5 7021-8 #### [facility] CLIA [id number] [address] [place] [address] [facility] [place] CK SerPl-cCncon 11-23-2022 CK [Catalytic activity/Vol] 149 U/L Normal 51-298 [facility] Comment on above: Order Comment: Speci men Type: BLOOD SPECIMEN [facility] Facility: [facility] Address: [address] [place] [address] Performed By: #### 2 157-6, 25678-0, 75616-9, 72705-3 #### [facility] CLIA [id number] [address] [place] [address] [facility] Comprehensive metabolic 2000 panelon 11-23-2022 Albumin [Mass/Vol] 4.6 g/dL Normal 3.9-4.9 [facility] Comment on above: Order Comment: Speci men Type: BLOOD SPECIMEN [facility] Facility: [facility] Address: [address] [place] [address] Performed By: #### 2 157-6, 38651-6, 31638-8, 34619-7 #### [facility] CLIA [id number] [address] [place] [address] [facility] ALP [Catalytic activity/Vol] 72 U/L Normal 38-113 [facility] Comment on above: Order Comment: Speci men Type: BLOOD SPECIMEN [facility]ing Facility: [facility] Address: [address] [place] [address] Performed By: #### 2 157-6, 05784-5, 39009-9, 05665-8 #### [facility] CLIA [id number] [address] [place] [address] [place] ALT With P-5'-P [Catalytic activity/Vol] 54 U/L Normal 10-54 [facility] Comment on above: Order Comment: Speci men Type: BLOOD SPECIMEN [facility] Facility: [facility] Address: [address] [place] [address] Performed By: #### 2 157-6, 25061-8, 49936-5, 08339-7 #### [facility] CLIA [id number] [address] [place] [address] [place] Anion gap [Moles/Vol] 11 mmol/L Normal 9-18 [facility] Comment on above: Order Comment: Speci men Type: BLOOD SPECIMEN [facility]ing Facility: [facility] Address: [address] [place] [address] Performed By: #### 2 157-6, 70222-9, 68690-0, 71344-6 #### [facility] CLIA [id number] [address] [place] [address] [place] AST With P-5'-P [Catalytic activity/Vol] 37 U/L Normal 14-40 [facility] Comment on above: Order Comment: Speci men Type: BLOOD SPECIMEN [facility] Facility: [facility] Address: [address] [place] [address] Performed By: #### 2 157-6, 96231-5, 11427-7, 60756-4 #### [facility] CLIA [id number] [address] [place] [address] [place] Bilirubin [Mass/Vol] 0.4 mg/dL Normal 0.2-1.3 [facility] Comment on above: Order Comment: Speci men Type: BLOOD SPECIMEN [facility] Facility: [facility] Address: [address] [place] [address] Performed By: #### 2 157-6, 46442-0, 02291-2, 60050-7 #### [facility] CLIA [id number] [address] [place] [address] [place] Calcium [Mass/Vol] 9.0 mg/dL Normal 8.5-10.2 [facility] Comment on above: Order Comment: Speci men Type: BLOOD SPECIMEN [facility]ing Facility: [facility] Address: [address] [place] [address] Performed By: #### 2 157-6, 03262-7, 75141-1, 64096-4 #### [facility] CLIA [id number] [address] [place] [address] [place] Chloride [Moles/Vol] 101 mmol/L Normal 97-105 [facility] Comment on above: Order Comment: Speci men Type: BLOOD SPECIMEN [facility]ing Facility: [facility] Address: [address] [place] [address] Performed By: #### 2 157-6, 92541-9, 51742-1, 65420-6 #### [facility] CLIA [id number] [address] [place] [address] [place] CO2 [Moles/Vol] 26 mmol/L Normal 22-30 [facility] Comment on above: Order Comment: Speci men Type: BLOOD SPECIMEN [facility] Facility: [facility] Address: [address] [place] [address] Performed By: #### 2 157-6, 09319-3, 74834-1, 26691-1 #### [facility] CLIA [id number] [address] [place] [address] [place] Creatinine [Mass/Vol] 0.93 mg/dL Normal 0.73-1.22 [facility] Comment on above: Order Comment: Speci men Type: BLOOD SPECIMEN [facility] Facility: [facility] Address: [address] [place] [address] Performed By: #### 2 157-6, 24682-9, 06434-2, 52912-8 #### [facility] CLIA [id number] [address] [place] [address] [place] ESTIMATED GLOMERULAR FILTRATION RATE 112 mL/min/1.73m??? Normal >=60 [facility] Comment on above: Order Comment: Haydee aguirre Type: BLOOD SPECIMEN Ordering Facility: [facility] Address: [address] [place] [address] Result Comment: Nica mated Glomerular Filtration Rate [...] actual GFR. Performed By: #### 2 157-6, 30364-7, 24894-2, 97076-2 #### [facility] CLIA [id number] [address] [place] [address] [place] Glucose [Mass/Vol] 91 mg/dL Normal 74-99 [facility] Comment on above: Order Comment: Haydee aguirre Type: BLOOD SPECIMEN [facility] Facility: [facility] Address: [address] [place], [place] [address] Result Comment: The [place] Diabetes Association (ADA) provides guidance for cutoff [...] Standards of Medical Care in Diabetes 2016, [place] [employer] Association. Diabetes Care. 2016.39(Suppl 1). Performed By: #### 2 157-6, 26670-3, 47921-5, 40431-1 #### [facility] CLIA [id number] [address] [place] [address] [place] Potassium [Moles/Vol] 3.6 mmol/L Low 3.7-5.1 [facility] Comment on above: Order Comment: Speci men Type: BLOOD SPECIMEN [facility] Facility: [facility] Address: [address] [place] [address] Performed By: #### 2 157-6, 00636-5, 48234-3, 35666-8 #### [facility] CLIA [id number] [address] [place] [address] [place] Protein [Mass/Vol] 7.7 g/dL Normal 6.3-8.0 [facility] Comment on above: Order Comment: Speci men Type: BLOOD SPECIMEN [facility] Facility: [facility] Address: [address] [place] [address] Performed By: #### 2 157-6, 82515-6, 27542-4, 93460-1 #### [facility] CLIA [id number] [address] [place] [address] [place] [facility] Sodium [Moles/Vol] 138 mmol/L Normal 136-144 [facility] Comment on above: Order Comment: Speci men Type: BLOOD SPECIMEN [facility] Facility: [facility] Address: [address] [place] [address] Performed By: #### 2 157-6, 68678-6, 19809-0, 67747-8 #### [facility] CLIA [id number] [address] [place] [address] [place] Urea nitrogen [Mass/Vol] 13 mg/dL Normal 9-24 [facility] Comment on above: Order Comment: Speci men Type: BLOOD SPECIMEN [facility] Facility: [facility] Address: [address] [place] [address] Performed By: #### 2 157-6, 91911-2, 22126-1, 68415-3 #### [facility] CLIA [id number] [address] [facility] [place] [address] [place] ECG COMPLETEon 11-23-2022 ECG COMPLETE Ventricular Rate : 7 1 BPM Atrial Rate : 71 BPM P-R Interval : 138 ms QRS Duration : 96 ms Q-T Interval : 372 ms QTC Calculation(Bazett) : 404 ms Calculated P [place] : 29 degrees Calculated R [place] : -49 degrees Calculated T [place] : 31 degrees NORMAL SINUS RHYTHM INCOMPLETE RIGHT BUNDLE BRANCH BLOCK LEFT AXIS DEVIATION CANNOT RULE OUT ANTERIOR INFARCT , AGE UNDETERMINED ABNORMAL ECG WHEN COMPARED WITH ECG OF 22-SEP-2018 09:05, NO SIGNIFICANT CHANGE WAS FOUND Confirmed by MD ZAPATA VINAYAK ([id number]) on 11/29/2022 10:21:49 PM NAME : RUTHIE CASTILLO PID : [id number] : 1990 Gender : Male Race : ORD : [id number] Procedure Date : Nov 23 2022 19:20:31 Edit Date : Nov 29 2022 22:21:55 Diagnosis: NORMAL SINUS RHYTHM INCOMPLETE RIGHT BUNDLE BRANCH BLOCK LEFT AXIS DEVIATION CANNOT RULE OUT ANTERIOR INFARCT , AGE UNDETERMINED ABNORMAL ECG WHEN COMPARED WITH ECG OF 22-SEP-2018 09:05, NO SIGNIFICANT CHANGE WAS FOUND Confirmed by MD ZAPATA VINAYAK ([id number]) on 11/29/2022 10:21:49 PM Test Reason : Shortness of Breath Location : 150 : [place] [facility] Overread By : MD ZAPATA VINAYAK Edited By : MD ZAPATA VINAYAK Referred By : , Acquired by : RAAD KAPLAN [facility] ED NOTEon 11-23-2022 ED NOTE HNO ID: [id number] Author: Kristen Guadarrama RN Service: Emergency Medicine Author Type: Registered Nurse Type: ED Notes Filed: 11/23/2022 8:34 PM Note Text: Reviewed dc orders with pt, no new scripts given. Pt verbalized understanding, denies any further needs. Ambulatory with steady gait for dc home per family. [facility] ED NOTE HNO ID: [id number] Author: Kristen Guadarrama RN Service: Emergency Medicine Author Type: Registered Nurse Type: ED Notes Filed: 11/23/2022 8:10 PM Note Text: Patient informed: the name of medication, why we are giving it, possible side effects, what they may expect to feel, and was offered a chance to ask questions, prior to the administration of tylenol [facility] ED NOTE HNO ID: [id number] Author: Joanna Countyline, RN Service: Nursing Author Type: Registered Nurse Type: ED Notes Filed: 11/23/2022 6:59 PM Note Text: Report to JUANA Peterson Normal [facility] ED NOTE HNO ID: [id number] Author: Joanna Cross RN Service: Nursing Author Type: Registered Nurse Type: ED Notes Filed: 11/23/2022 6:40 PM Note Text: Pt arrives with report I think I have COVID, pt reports loss of taste, hip pain, hypertension, SOB with exertion. Pt had exposure to cousin that was not feeling well and has family members that tested positive. Normal [facility] ED PROV NOTEon 11-23-2022 ED PROV NOTE HNO ID: [id number] Author: Erik Rutledge MD Service: Emergency Medicine Author Type: Physician Type: ED Provider Notes Filed: 11/23/2022 9:08 PM Note Text: ED Provider Note Patient Name: Ruthie Castillo : 1990 SERVICE DATE: 11/23/22 History Patient presents with: Flu Like Symptoms Hypertension Shortness of Breath This is a 32-year-old white male with a chief complaint of I think I have COVID. Patient states that he feels generally ill with fatigue loss of taste generalized myalgias shortness of breath with exertion and feeling like I got hit by a truck. Patient states he was exposed to a [...] No tenderne (more content not included)... Normal [facility] FLUABV+SARS-CoV-2+RSV Pnl Re sp CORINA+probeon 11-23-2022 FLUABV+SARS-CoV-2+RSV Pnl Resp CORINA+probe COVID 19 RESULT: Detected The method used is RT-PCR or an equivalent NAAT method. Reference Range(the expected result in uninfected individuals): Not detected INFLUENZA A PCR: Not detected INFLUENZA B PCR: Not detected RSV PCR: Not detected Abnormal [facility] Comment on above: Performed By: #### 9 5941-1 #### [facility] CLIA [id number] [address] [place] [address] [place] HIGH SENSITIVITY TROPONIN T (INITIAL)on 11-23-2022 HIGH SENSITIVITY STEFANIE <6 Normal <12 [facility] Comment on above: Order Comment: Speci men Type: BLOOD SPECIMENOrdering Facility: [facility] Address: [address] [place] [address] [place] [address] Result Comment: When assessing risk for acute [...] 30 day MACE. Performed By: #### L [id number] ####[facility] [id number] [place] [address] [facility] Magnesium [facility] 11-23 Magnesium [Mass/Vol] 1.9 mg/dL Normal 1.7-2.3 [facility] Comment on above: Order Comment: Haydee aguirre Type: BLOOD SPECIMENOrdering Facility: [facility] Address: [address] [place] [address] Performed By: #### 2 157-6, 18193-9, 83141-8, 89128-3 ####[facility] [id number] [address] [place] [id number] [facility] NT-proBNP [facility] 11-23 Natriuretic peptide.B prohormone N-Terminal [Mass/Vol] 100 pg/mL Normal <125 [facility] Comment on above: Order Comment: Speci timothy Type: BLOOD SPECIMENOrdering Facility: [facility] Address: [address] [place] [address] Performed By: #### 2 157-6, 10636-6, 92588-5, 61846-0 ####[facility] [id number] [place] [id number] [facility] XR CHEST 2V FRONTAL/LATon XR CHEST 2V [...] cardiomediastinal silhouette. IMPRESSION: No acute cardiopulmonary process. Metaphysician: SHILPI Transcribe Date/Time: Nov 23 2022 7:47P Dictated by : NURIA SULLIVAN MD This examination was interpreted and the report reviewed and electronically signed by: NURIA SULLIVAN MD on Nov 23 2022 7:47PM EST [id number] Normal [facility] Basic Metabolic Panelon 03-0 Calcium [Mass/Vol] 8.7 mg/dL Normal 8.4-10.4 [facility] Comment on above: Performed By: #### B MP3M, HEMDF ####[facility] [place] [address] Glucose [Mass/Vol] 92 mg/dL Normal 70-100 [facility] Comment on above: Performed By: #### B MP3M, HEMDF ####[address] [place] [address] Urea nitrogen [Mass/Vol] 13 mg/dL Normal 7-20 [facility] Comment on above: Performed By: #### B MP3M, HEMDF ####[address] [place] [address] Anion gap [Moles/Vol] 9 mmol/L Normal 3-13 [facility] Comment on above: Performed By: #### B MP3M, HEMDF ####[address] [place] [address] CO2 [Moles/Vol] 26 mmol/L Normal 22-30 [facility] Comment on above: Performed By: #### B MP3M, HEMDF ####[address] [place] [address] Creatinine [Mass/Vol] 0.79 mg/dL Normal 0.52-1.25 [facility] Comment on above: Performed By: #### B MP3M, HEMDF ####[address] [place] [address] eGFR OTHER > 90.0 Normal >60 [facility] Comment on above: Result Comment: KDIG [...] tubular creatinine secretion. Performed By: #### Jimmy MP3M, HEMDF ####[address] [place], [place] GFR/1.73 sq M.predicted among blacks MDRD (S/P/Bld) [Vol rate/Area] mL/min/{1.73_m2} Normal >60 [facility] Comment on above: Performed By: #### Jimmy MP3M, HEMDF ####[address] [place], [place] Potassium [Moles/Vol] 3.8 mmol/L Normal 3.5-5.1 [facility] Comment on above: Performed By: #### Jimmy MP3M, HEMDF ####[address] [place] [address] Chloride [Moles/Vol] 102 mmol/L Normal 98-107 [facility] Comment on above: Performed By: #### Jimmy MP3M, HEMDF ####[address] [place], [place] Sodium [Moles/Vol] 138 mmol/L Normal 135-145 [facility] Comment on above: Performed By: #### Jimmy MP3M, HEMDF ####[address] [place], [place] Hemogram w/ Autodiffon 11-28 Abs Baso Cnt 0.1 10*3/uL Normal 0.0-0.2 [facility] Comment on above: Performed By: #### B MP3M, HEMDF ####[address] [place], [place] Abs Neutrophile Cnt 6.8 10*3/uL Normal 1.8-7.0 [facility] Comment on above: Performed By: #### B MP3M, HEMDF ####[address] [place], [place] Basophils/100 WBC (Bld) 0.5 % Normal 0.0-2.0 [facility] Comment on above: Performed By: #### B MP3M, HEMDF ####[address] [place], [place] Eosinophils (Bld) [#/Vol] 0.5 10*3/uL Normal 0.0-0.5 [facility] Comment on above: Performed By: #### B MP3M, HEMDF ####[address] [place], [place] Eosinophils/100 WBC (Bld) 4.5 % Normal 1.0-6.0 [facility] Comment on above: Performed By: #### Jimmy MP3M, HEMDF ####[facility] [employer] [id number] [place], [place] Erythrocyte distribution width (RBC) [Ratio] 14.7 % High 11.5-14.5 [facility] Comment on above: Performed By: #### B MP3M, HEMDF ####[address] [place], [place] Granulocytes/100 WBC (Bld) 67.6 % Normal 40.0-80.0 [facility] Comment on above: Performed By: #### B MP3M, HEMDF ####[address] [place], [place] Hematocrit (Bld) [Volume fraction] 31.4 % Low 40.0-52.0 [facility] Comment on above: Performed By: #### B MP3M, HEMDF ####[address] [place] [address] Hemoglobin (Bld) [Mass/Vol] 10.4 g/dL Low 13.0-18.0 [facility] Comment on above: Performed By: #### Jimmy SALAZAR3Eh, HEMDF ####[address] [address] Lymphocytes (Bld) [#/Vol] 2.1 10*3/uL Normal 1.0-4.3 [facility] Comment on above: Performed By: #### B MP3Eh, HEMDF ####[address] Lymphocytes/100 WBC (Bld) 20.9 % Normal 20.0-40.0 [facility] Comment on above: Performed By: #### Jimmy ASLAZAR3Eh, HEMDF ####[address] MCH (RBC) [Entitic mass] 26.7 pg Normal 26.0-34.0 [facility] Comment on above: Performed By: #### Jimmy SALAZAR3Eh, HEMDF ####[address] MCHC 33.0 % Normal 32.0-36.0 [facility] Comment on above: Performed By: #### Jimmy SALAZAR3Eh, HEMDF ####[address] MCV (RBC) [Entitic vol] 80.8 fL Normal 80.0-98.0 [facility] Comment on above: Performed By: #### B MP3Eh, HEMDF ####[address] Monocytes (Bld) [#/Vol] 0.7 10*3/uL Normal 0.0-0.8 [facility] Comment on above: Performed By: #### B MP3M, HEMDF ####[address] [address] Monocytes/100 WBC (Bld) 6.5 % Normal 2.0-10.0 [facility] Comment on above: Performed By: #### B MP3M, HEMDF ####[facility] [place], [place] Platelet mean volume (Bld) [Entitic vol] 8.3 fL Normal 7.4-10.4 [facility] Comment on above: Performed By: #### B MP3M, HEMDF ####[facility] [place], [place] Platelets (Bld) [#/Vol] 320 10*3/uL Normal 140-440 [facility] Comment on above: Performed By: #### B MP3M, HEMDF ####[address] [place], [place] RBC (Bld) [#/Vol] 3.89 10*6/uL Low 4.40-5.90 [facility] Comment on above: Performed By: #### B MP3M, HEMDF ####[address] [place], [place] WBC (Bld) [#/Vol] 10.0 10*3/uL Normal 3.6-10.7 [facility] Comment on above: Performed By: #### Jimmy MP3M, HEMDF ####[address] [place], [place] Basic Metabolic Panelon -2 Anion gap [Moles/Vol] 9 mmol/L Normal 3-13 [facility] Comment on above: Performed By: #### B MP3M, HEMDF #### [facility] [address] [place], [place] Calcium [Mass/Vol] 9.0 mg/dL Normal 8.4-10.4 [facility] Comment on above: Performed By: #### B MP3M, HEMDF #### [facility] [address] [place], [place] CO2 [Moles/Vol] 27 mmol/L Normal 22-30 [facility] Comment on above: Performed By: #### B MP3M, HEMDF #### [facility] [address] [place], [place] Glucose [Mass/Vol] 73 mg/dL Normal 70-100 [facility] Comment on above: Performed By: #### B MP3M, HEMDF #### [facility] [address] [place], [place] Urea nitrogen [Mass/Vol] 11 mg/dL Normal 7-20 [facility] Comment on above: Performed By: #### B MP3M, HEMDF #### [facility] [address] [place], [place] Creatinine [Mass/Vol] 0.70 mg/dL Normal 0.52-1.25 [facility] Comment on above: Performed By: #### B MP3M, HEMDF #### [address] [place], [place] eGFR OTHER > 90.0 Normal >60 [facility] Comment on above: Result Comment: KDIG [...] Performed By: #### B MP3M, HEMDF #### [facility] [address] [place], [place] GFR/1.73 sq M.predicted among blacks MDRD (S/P/Bld) [Vol rate/Area] mL/min/{1.73_m2} Normal >60 [facility] Comment on above: Performed By: #### B MP3M, HEMDF #### [facility] [address] [place], [place] Potassium [Moles/Vol] 3.8 mmol/L Normal 3.5-5.1 [facility] Comment on above: Performed By: #### B MP3M, HEMDF #### [address] [place], [place] Sodium [Moles/Vol] 139 mmol/L Normal 135-145 [facility] Comment on above: Performed By: #### B MP3M, HEMDF #### [address] [place], [place] Chloride [Moles/Vol] 104 mmol/L Normal 98-107 [facility] Comment on above: Performed By: #### B MP3M, HEMDF #### [address] [place], [place] Hemoglobin AND Hematocriton 11-27-2020 Hematocrit (Bld) [Volume fraction] 34.8 % Low 40.0-52.0 [facility] Comment on above: Performed By: #### H GHCT ####[address] [place], [place] Hemoglobin (Bld) [Mass/Vol] 11.5 g/dL Low 13.0-18.0 [facility] Comment on above: Performed By: #### H GHCT ####[address] Hemogram w/ Autodiffon 11-27 Abs Baso Cnt 0.0 10*3/uL Normal 0.0-0.2 [facility] Comment on above: Performed By: #### B MP3M, HEMDF #### [address] [place], [place] Abs Neutrophile Cnt 7.3 10*3/uL High 1.8-7.0 [facility] Comment on above: Performed By: #### B MP3M, HEMDF #### [address] Basophils/100 WBC (Bld) 0.4 % Normal 0.0-2.0 [facility] Comment on above: Performed By: #### B MP3M, HEMDF #### [address] [place] [address] Eosinophils (Bld) [#/Vol] 0.1 10*3/uL Normal 0.0-0.5 [facility] Comment on above: Performed By: #### B MP3M, HEMDF #### [facility] [address] [place] [address] Eosinophils/100 WBC (Bld) 1.0 % Normal 1.0-6.0 [facility] Comment on above: Performed By: #### B MP3M, HEMDF #### [facility] [address] [place], [place] Erythrocyte distribution width (RBC) [Ratio] 15.0 % High 11.5-14.5 [facility] Comment on above: Performed By: #### B MP3M, HEMDF #### [address] [place], [place] Granulocytes/100 WBC (Bld) 70.8 % Normal 40.0-80.0 [facility] Comment on above: Performed By: #### B MP3M, HEMDF #### [facility] [address] [place], [place] Hematocrit (Bld) [Volume fraction] 34.9 % Low 40.0-52.0 [facility] Comment on above: Performed By: #### B MP3M, HEMDF #### [facility] [address] [place], [place] Hemoglobin (Bld) [Mass/Vol] 11.2 g/dL Low 13.0-18.0 [facility] Comment on above: Performed By: #### B MP3M, HEMDF #### [facility] [address] [place], [place] Lymphocytes (Bld) [#/Vol] 2.3 10*3/uL Normal 1.0-4.3 [facility] Comment on above: Performed By: #### B MP3M, HEMDF #### [facility] [address] [place] [address] Lymphocytes/100 WBC (Bld) 22.7 % Normal 20.0-40.0 [facility] Comment on above: Performed By: #### B MP3M, HEMDF #### [facility] [address] [place], [place] MCH (RBC) [Entitic mass] 26.4 pg Normal 26.0-34.0 [facility] Comment on above: Performed By: #### B MP3M, HEMDF #### [facility] [facility] [address] [place], [place] MCHC 32.2 % Normal 32.0-36.0 [facility] Comment on above: Performed By: #### B MP3M, HEMDF #### [address] [address] [place], [place] MCV (RBC) [Entitic vol] 82.0 fL Normal 80.0-98.0 [facility] Comment on above: Performed By: #### B MP3M, HEMDF #### [address] [address] [place], [place] Monocytes (Bld) [#/Vol] 0.5 10*3/uL Normal 0.0-0.8 [facility] Comment on above: Performed By: #### B MP3M, HEMDF #### [address] [address] [place], [place] Monocytes/100 WBC (Bld) 5.1 % Normal 2.0-10.0 [facility] Comment on above: Performed By: #### B MP3M, HEMDF #### [address] [address] [address] [place], [place] Platelet mean volume (Bld) [Entitic vol] 9.1 fL Normal 7.4-10.4 [facility] Comment on above: Performed By: #### B MP3M, HEMDF #### [address] [address] [place], [place] Platelets (Bld) [#/Vol] 282 10*3/uL Normal 140-440 [facility] Comment on above: Performed By: #### B MP3M, HEMDF #### [address] [address] [place], [place] RBC (Bld) [#/Vol] 4.26 10*6/uL Low 4.40-5.90 [facility] Comment on above: Performed By: #### B MP3M, HEMDF #### [facility] [address] [place], [place] WBC (Bld) [#/Vol] 10.3 10*3/uL Normal 3.6-10.7 [facility] Comment on above: Performed By: #### B MP3M, HEMDF #### [address] [address] [address] [place], [place] Basic Metabolic Panelon 11-01 Anion gap [Moles/Vol] 11 mmol/L Normal 3-13 [facility] Comment on above: Performed By: #### H EMDF, BMP3M #### [address] [address] [place], [place] Calcium [Mass/Vol] 9.4 mg/dL Normal 8.4-10.4 [facility] Comment on above: Performed By: #### H EMDF, BMP3M #### [address] [address] [place], [place] CO2 [Moles/Vol] 24 mmol/L Normal 22-30 [facility] Comment on above: Performed By: #### H EMDF, BMP3M #### [address] [address] [place], [place] Creatinine [Mass/Vol] 0.73 mg/dL Normal 0.52-1.25 [facility] Comment on above: Performed By: #### H EMDF, BMP3M #### [address] [address] [address] [place] eGFR OTHER > 90.0 Normal >60 [facility] Comment on above: Result Comment: KDIG [...] renal tubular creatinine secretion. Performed By: #### ALEJA AVILA3M #### [address] [address] [place] [address] GFR/1.73 sq M.predicted among blacks MDRD (S/P/Bld) [Vol rate/Area] mL/min/{1.73_m2} Normal >60 [facility] Comment on above: Performed By: #### Lucien PEDRO BMP3M #### [address] [address] [place], [place] Glucose [Mass/Vol] 129 mg/dL High 70-100 [facility] Comment on above: Performed By: #### Lucien PEDRO BMP3M #### [address] [address] Urea nitrogen [Mass/Vol] 11 mg/dL Normal 7-20 [facility] Comment on above: Performed By: #### Lucien PEDRO BMP3M #### [address] [address] Chloride [Moles/Vol] 102 mmol/L Normal 98-107 [facility] Comment on above: Performed By: #### Lucien PEDRO BMP3M #### [address] Potassium [Moles/Vol] 4.3 mmol/L Normal 3.5-5.1 [facility] Comment on above: Performed By: #### Lucien PEDRO BMP3M #### [address] [address] Sodium [Moles/Vol] 137 mmol/L Normal 135-145 [facility] Comment on above: Performed By: #### Lucien PEDRO BMP3M #### [address], [place] CR Chest Portableon 11-26-19 21 CR Chest Portable Patient Name: RUTHIE CASTILLO Diagnostic Radiology ACCESSION EXAM DATE/TIME PROCEDURE ORDERING PROVIDER [id number] 11/26/2020 17:13 EST CR Chest Portable [id number] -CHELSI, ANEIL CPT code 11464 Reason For Exam (CR Chest Portable) chest [...] Transcribed Date and Time: 11/26/2020 6:12 Normal [facility] Complete Urinalysison 2020 Appearance (U) Clear Normal Clear [facility] Comment on above: Result Comment: . Performed By: #### C UA2 #### [address] [address] [address] [place], [place] Bilirubin,Urine Negative Normal Negative [facility] Comment on above: Result Comment: . Performed By: #### C UA2 #### [address] [address] [address] [place], [place] Color (U) Colorless Normal Lt. Yellow [facility] Comment on above: Result Comment: . Performed By: #### C UA2 #### [address] [address] [place], [place] Glucose Ql (U) Normal Normal Normal (<70) [facility] Comment on above: Result Comment: . Performed By: #### C UA2 #### [address] [address] [address] [place], [place] Ketone,Urine Negative Normal Negative [facility] Comment on above: Result Comment: . Performed By: #### C UA2 #### [facility] [address] [place], [place] Leukocytes,Urine Negative Normal Negative [facility] Comment on above: Result Comment: . Performed By: #### C UA2 #### [address] [address] [address] [place], [place] Nitrites,Urine Negative Normal Negative [facility] Comment on above: Result Comment: . Performed By: #### C UA2 #### [address] [address] [address] [place], [place] Occult Blood,Urine Negative Normal Negative [facility] Comment on above: Result Comment: . Performed By: #### C UA2 #### [address] [address] [address] [place], [place] pH,Urine 5.5 Normal 5.0-8.0 [facility] Comment on above: Result Comment: . Performed By: #### C UA2 #### [address] [address] [address] [place], [place] Specific [place],Urine < 1.005 Abnormal 1.005 - 1.030 [facility] Comment on above: Result Comment: . Performed By: #### C UA2 #### [address] [address] [address] [place], [place] Total Protein,Urine Negative Normal Negative [facility] Comment on above: Result Comment: . Performed By: #### C UA2 #### [address] [address] [address] [place], [place] Urobilinogen,Urine Normal Normal Normal (0-1) [facility] Comment on above: Result Comment: . Performed By: #### C UA2 #### [address] [address] [address] [place], [place] Hemogram w/ Autodiffon 11-26 Abs Baso Cnt 0.0 10*3/uL Normal 0.0-0.2 [facility] Comment on above: Performed By: #### H EMDF, BMP3M #### [address] [address] [address] [place], [place] Abs Neutrophile Cnt 10.5 10*3/uL High 1.8-7.0 [facility] Comment on above: Performed By: #### H EMDRomero BMP3M #### [address] Basophils/100 WBC (Bld) 0.2 % Normal 0.0-2.0 [facility] Comment on above: Performed By: #### H WILLIS BMP3M #### [address] Eosinophils (Bld) [#/Vol] 0.0 10*3/uL Normal 0.0-0.5 [facility] Comment on above: Performed By: #### H EMDRomero BMP3M #### [address] Eosinophils/100 WBC (Bld) 0.1 % Low 1.0-6.0 [facility] Comment on above: Performed By: #### H WILLIS BMP3M #### [address] Erythrocyte distribution width (RBC) [Ratio] 14.7 % High 11.5-14.5 [facility] Comment on above: Performed By: #### H WILLIS BMP3M #### [address] Granulocytes/100 WBC (Bld) 92.2 % High 40.0-80.0 [facility] Comment on above: Performed By: #### H EMDRomero BMP3M #### [address] Hematocrit (Bld) [Volume fraction] 36.7 % Low 40.0-52.0 [facility] Comment on above: Performed By: #### H EMDRmoero BMP3M #### [address] Hemoglobin (Bld) [Mass/Vol] 12.1 g/dL Low 13.0-18.0 [facility] Comment on above: Performed By: #### H EMDRomero BMP3M #### [address] Lymphocytes (Bld) [#/Vol] 0.7 10*3/uL Low 1.0-4.3 [facility] Comment on above: Performed By: #### H ALEJA PEDRO3M #### [facility] [address] [place], [place] Lymphocytes/100 WBC (Bld) 6.0 % Low 20.0-40.0 [facility] Comment on above: Performed By: #### H WILLIS BMP3M #### [facility] [address] [place], [place] MCH (RBC) [Entitic mass] 26.4 pg Normal 26.0-34.0 [facility] Comment on above: Performed By: #### H WILLIS BMP3M #### [address] [address] [address] [place] MCHC 33.0 % Normal 32.0-36.0 [facility] Comment on above: Performed By: #### H WILLIS BMP3M #### [address] [address] [address] [place] MCV (RBC) [Entitic vol] 80.2 fL Normal 80.0-98.0 [facility] Comment on above: Performed By: #### H WILLIS BMP3M #### [address] [address] [address] [place] Monocytes (Bld) [#/Vol] 0.2 10*3/uL Normal 0.0-0.8 [facility] Comment on above: Performed By: #### H WILLIS BMP3M #### [facility] [address] [place], [place] Monocytes/100 WBC (Bld) 1.5 % Low 2.0-10.0 [facility] Comment on above: Performed By: #### H WILLIS BMP3M #### [facility] [address] [place], [place] Platelet mean volume (Bld) [Entitic vol] 8.4 fL Normal 7.4-10.4 [facility] Comment on above: Performed By: #### H WILLIS, BMP3M #### [address] [address] [address] [place], [place] Platelets (Bld) [#/Vol] 303 10*3/uL Normal 140-440 [facility] Comment on above: Performed By: #### H EMDF, BMP3M #### [address] [address] [address] [place], [place] RBC (Bld) [#/Vol] 4.58 10*6/uL Normal 4.40-5.90 [facility] Comment on above: Performed By: #### H EMDF, BMP3M #### [address] [address] [address] [place] WBC (Bld) [#/Vol] 11.3 10*3/uL High 3.6-10.7 [facility] Comment on above: Performed By: #### H EMDF, BMP3M #### [address] [address] [address] [place], [place] Basic Metabolic Panelon 02-2 Anion gap [Moles/Vol] 11 mmol/L Normal 3-13 [facility] Comment on above: Performed By: #### H EMDF, PT/AP, BMP3M #### [address] [address] [address] [place] Calcium [Mass/Vol] 9.4 mg/dL Normal 8.4-10.4 [facility] Comment on above: Performed By: #### H EMDF, PT/AP, BMP3M #### [address] [address] [address] [place] CO2 [Moles/Vol] 25 mmol/L Normal 22-30 [facility] Comment on above: Performed By: #### H EMDF, PT/AP, BMP3M #### [address] [address] [address] [place] Glucose [Mass/Vol] 80 mg/dL Normal 70-100 [facility] Comment on above: Performed By: #### H EMDF, PT/AP, BMP3M #### [address] [address] [address] [place] Urea nitrogen [Mass/Vol] 11 mg/dL Normal 7-20 [facility] Comment on above: Performed By: #### H WILLIS PT/OMAYRA BMP3M #### [address] Creatinine [Mass/Vol] 0.72 mg/dL Normal 0.52-1.25 [facility] Comment on above: Performed By: #### H WILLIS PT/AP BMP3M #### [facility] [address] [place], [place] eGFR OTHER > 90.0 Normal >60 [facility] Comment on above: Result Comment: KDIG [...] tubular creatinine secretion. Performed By: #### H WILLIS PT/AP BMP3M #### [address] [address] [place], [place] GFR/1.73 sq M.predicted among blacks MDRD (S/P/Bld) [Vol rate/Area] mL/min/{1.73_m2} Normal >60 [facility] Comment on above: Performed By: #### H WILLIS PT/AP BMP3M #### [facility] [address] [place], [place] Potassium [Moles/Vol] 3.9 mmol/L Normal 3.5-5.1 [facility] Comment on above: Performed By: #### H WILLIS PT/AP, BMP3M #### [address] [address] [address] [place] Chloride [Moles/Vol] 103 mmol/L Normal 98-107 [facility] Comment on above: Performed By: #### H EMDF, PT/AP, BMP3M #### [address] [address] [place], [place] Sodium [Moles/Vol] 139 mmol/L Normal 135-145 [facility] Comment on above: Performed By: #### H EMDF, PT/AP, BMP3M #### [address] [address] [place], [place] Hemogram w/ Autodiffon 11-25 Abs Baso Cnt 0.0 10*3/uL Normal 0.0-0.2 [facility] Comment on above: Performed By: #### H EMDF, PT/AP, BMP3M #### [address] [address] [place], [place] Abs Neutrophile Cnt 4.9 10*3/uL Normal 1.8-7.0 [facility] Comment on above: Performed By: #### H EMDF, PT/AP, BMP3M #### [address] Basophils/100 WBC (Bld) 0.4 % Normal 0.0-2.0 [facility] Comment on above: Performed By: #### H EMDF, PT/AP, BMP3M #### [address] [address] [place] Eosinophils (Bld) [#/Vol] 0.6 10*3/uL High 0.0-0.5 [facility] Comment on above: Performed By: #### H EMDF, PT/AP, BMP3M #### [address] Eosinophils/100 WBC (Bld) 7.1 % High 1.0-6.0 [facility] Comment on above: Performed By: #### H EMDF, PT/AP, BMP3M #### [address] [address] [place] Erythrocyte distribution width (RBC) [Ratio] 15.4 % High 11.5-14.5 [facility] Comment on above: Performed By: #### H EMDF, PT/AP, BMP3M #### [address] Granulocytes/100 WBC (Bld) 59.0 % Normal 40.0-80.0 [facility] Comment on above: Performed By: #### H EMDF, PT/AP, BMP3M #### [address] [address] [place] Hematocrit (Bld) [Volume fraction] 40.8 % Normal 40.0-52.0 [facility] Comment on above: Performed By: #### H EMDF, PT/AP, BMP3M #### [address] Hemoglobin (Bld) [Mass/Vol] 13.5 g/dL Normal 13.0-18.0 [facility] Comment on above: Performed By: #### H EMDF, PT/AP, BMP3M #### [address] [address] [place] Lymphocytes (Bld) [#/Vol] 2.1 10*3/uL Normal 1.0-4.3 [facility] Comment on above: Performed By: #### H EMDF, PT/AP, BMP3M #### [address] Lymphocytes/100 WBC (Bld) 25.7 % Normal 20.0-40.0 [facility] Comment on above: Performed By: #### H EMDF, PT/AP, BMP3M #### [address] MCH (RBC) [Entitic mass] 26.7 pg Normal 26.0-34.0 [facility] Comment on above: Performed By: #### H EMDF, PT/AP, BMP3M #### [address] MCHC 33.1 % Normal 32.0-36.0 [facility] Comment on above: Performed By: #### H EMDF, PT/AP, BMP3M #### [facility] [address] [place] MCV (RBC) [Entitic vol] 80.4 fL Normal 80.0-98.0 [facility] Comment on above: Performed By: #### H EMDF, PT/AP, BMP3M #### [address] [address] [address] [place] Monocytes (Bld) [#/Vol] 0.6 10*3/uL Normal 0.0-0.8 [facility] Comment on above: Performed By: #### H EMDF, PT/AP, BMP3M #### [address] [address] [address] [place] Monocytes/100 WBC (Bld) 7.8 % Normal 2.0-10.0 [facility] Comment on above: Performed By: #### H EMDF, PT/AP, BMP3M #### [address] [address] [address] [place] Platelet mean volume (Bld) [Entitic vol] 8.7 fL Normal 7.4-10.4 [facility] Comment on above: Performed By: #### H EMDF, PT/AP, BMP3M #### [address] [address] [address] [place] Platelets (Bld) [#/Vol] 300 10*3/uL Normal 140-440 [facility] Comment on above: Performed By: #### H EMDF, PT/AP, BMP3M #### [address] [address] [address] [place] RBC (Bld) [#/Vol] 5.07 10*6/uL Normal 4.40-5.90 [facility] Comment on above: Performed By: #### H EMDF, PT/AP, BMP3M #### [address] [address] [place] WBC (Bld) [#/Vol] 8.2 10*3/uL Normal 3.6-10.7 [facility] Comment on above: Performed By: #### H EMDF, PT/AP, BMP3M #### [facility] [address] [place] [address] Op Noteon 11-25-2020 Op Note PATIENT: YE [...] was able to be exteriorized and a [id number] functional end-to-end anastomosis was performed using 2 [...] recovery in stable condition. Disk[employer] Job ID: [id number] Spencer Fonseca MD DOD:11/25/2020 01:46 P FRANKLYN/chencho DOT:11/25/2020 02:26 P Job Number: [id number] Document Number: [id number] cc: Spencer Fonseca MD [address] [place] [id number] Normal [facility] Protime AND APTTon INR Coag (PPP) [Relative time] {INR} Normal 0.9-1.1 [facility] Comment on above: Result Comment: SUSANNE [...] By: #### H EMDF, PT/AP, BMP3M #### [address] [address] aPTT Coag (Bld) [Time] 29.1 s Normal 20.0-30.5 [facility] Comment on above: Result Comment: NOTE : The therapeutic time for Heparin anticoagulation, based on Xa activity inhibition, is an APTT of 46-80 seconds. Performed By: #### H EMDF, PT/AP, BMP3M #### [address] [address] PT Coag (PPP) [Time] 10.1 s Normal 9.0-12.0 [facility] Comment on above: Result Comment: . Performed By: #### H EMDF, PT/AP, BMP3M #### [address] [address] Surgical Pathologyon 021 Surgical Pathology [id number] [facility] PATHOLOGY AND LABORATORY MEDICINE [address] [place] [address] FINAL SURGICAL PATHOLOGY REPORT NAME: RUTHIE CASTILLO : 1990 30 Y Eh INFANTE NO.: [id number] LOCATION: [id number] [id number] PROCEDURE 11/25/2020 DATE: SURGEON: SPENCER FONSECA M.D. [...] It has raised folds and hemorrhagic edges. Ship Loader sections are submitted in two blocks. D/0RW Disclaimer: The following statement applies to all immunohistochemistry, in situ hybridization, molecular studies, and immunofluorescence testing. The use of one or more reagents in the above tests is regulated as an analyte specific reagent (ASR). These tests were developed and their performance characteristics determined by the clinical laboratories of [facility]. They have not been cleared by [...] negativity on decalcified specimens. Professional Performing Location: [address] [address]. DEPARTMENT OF PATHOLOGY AND LABORATORY MEDICINE [place], [place] [address] Normal [facility] TS GELon 11-25-2020 TS GEL ABO Group: O Rh, Gel: POS Antibody Screen Gel: NEG Normal [facility] Comment on above: Performed By: #### T SGL ####[facility] Hemoglobin and Hematocrit, B lotu 11-10-2020 Hematocrit (Bld) [Volume fraction] 44.3 % 40 - 52 % [facility] Work Phone: [phone] Hemoglobin (Bld) [Mass/Vol] 14.3 g/dL 13 - 18 g/dL [facility] Work Phone: [phone] Test Performed by [facility], [address] [place] [address] [facility] Work Phone: [phone] TYPE AND SCREENon 11-10-2020 Sodium [Moles/Vol] O [facility] Work Phone: [phone] Sodium [Moles/Vol] Positive [facility] Work Phone: [phone] Sodium [Moles/Vol] Negative [facility] Work Phone: [phone] Test Performed by [facility], [address] [place] [address] [facility] Work Phone: [phone] Basic Metabolic Panelon -3 Anion gap [Moles/Vol] 10 mmol/L [facility], [place] Calcium [Mass/Vol] 9.3 mg/dL 8.4 - 10. 4 mg/dL [facility], [place] Chloride [Moles/Vol] 102 mmol/L 98 - 10 7 mmol/L [place], [place] CO2 [Moles/Vol] 24 mmol/L 22 - 30 mmol/L [place] Creatinine [Mass/Vol] 0.8 mg/dL 0.52 - 1.25 mg/dL [place] EGFR IF NonAfrican [place]amanian >90.0 >60 mL/min [place] Comment on above: KDIGO guidelines pro [...] MDRD (S/P/Bld) [Vol rate/Area] mL/min/{1.73_m2} >60 mL/min [place] Glucose [Mass/Vol] 91 mg/dL 70 - 100 mg/dL [place] Potassium [Moles/Vol] 3.5 mmol/L 3.5 - 5.1 mmol/L [place] Sodium [Moles/Vol] 136 mmol/L 135 - 145 mmol/L [place] Urea nitrogen [Mass/Vol] 12 mg/dL 7 - 20 mg/dL [place] CT Abdomen Pelvis W Contrast on 10-30-2020 Juan, Shayleea Incoming Radiology Results From [facility] - 10/30/2020 7:18 PM EST Patient Name: RUTHIE CASTILLO Computed Tomography ACCESSION EXAM DATE/TIME PROCEDURE ORDERING PROVIDER [id number] 10/30/2020 18:[address] Abdomen/Pelvis w/ IV ASHISH ROMAN, Contrast (IV Onl JAMIE CPT code 23215 Q9967 Reason For Exam (CT Abdomen/Pelvis w/ [...] NICHOLAS Transcribed Date and Time: 10/30/2020 7:09 [place] [id number] Tom[facility] ACCESSION EXAM DATE/TIME PROCEDURE ORDERING PROVIDER [id number] 10/30/2020 18:[address] Abdomen/Pelvis w/ IV ASHISH ROMAN, Contrast (IV Onl JMAIE CPT code 57623 Q9967 Reason For Exam (CT Abdomen/Pelvis w/ [...] NICHOLAS Transcribed Date and Time: 10/30/2020 7:09 [place] Hemogram (CBC) w/Auto Diffon 10-30-2020 Absolute Baso # 0.1 10*3/uL 0 - 0.2 10*3/uL [place] Absolute Neut # 10.4 10*3/uL High 1.8 - 7 10*3/uL [place] Basophils/100 WBC (Bld) 0.6 % 0 - 2 % [place] Eosinophils (Bld) [#/Vol] 1.0 10*3/uL High 0 - 0.5 10*3/uL [place] Eosinophils/100 WBC (Bld) 7.1 % High 1 - 6 % [place] Erythrocyte distribution width (RBC) [Ratio] 14.7 % High 11.5 - 14.5 % [place] Granulocytes/100 WBC (Bld) 76.8 % 40 - 80 % [place] Hematocrit (Bld) [Volume fraction] 43.9 % 40 - 52 % [place] Hemoglobin (Bld) [Mass/Vol] 14.3 g/dL 13 - 18 g/dL [place] Interpretation and review of laboratory results Abnormal [place] Lymphocytes (Bld) [#/Vol] 1.2 10*3/uL 1 - 4.3 10*3/uL [place] Lymphocytes/100 WBC (Bld) 8.7 % Low 20 - 40 % [place] MCH (RBC) [Entitic mass] 26.8 pg 26 - 34 pg [place] MCHC (RBC) [Mass/Vol] 32.6 % 32 - 36 % [place], [place] MCV (RBC) [Entitic vol] 82.1 fL 80 - 98 fL [place] Monocytes (Bld) [#/Vol] 0.9 10*3/uL High 0 - 0.8 10*3/uL [place] Monocytes/100 WBC (Bld) 6.8 % 2 - 10 % [place] Platelet mean volume (Bld) [Entitic vol] 8.8 fL 7.4 - 10.4 fL [place] Platelets (Bld) [#/Vol] 238 10*3/uL 140 - 440 10*3/uL [place] RBC (Bld) [#/Vol] 5.34 10*6/uL 4.4 - 5.9 10*6/uL [place] WBC (Bld) [#/Vol] 13.6 10*3/uL High 3.6 - 10.7 10*3/uL [place] Test Performed by [facility], [address] [place] [address] [place] Hepatic Function Panelon Albumin [Mass/Vol] 5.1 g/dL High 3.5 - 5 g/dL [place] ALP [Catalytic activity/Vol] 73 U/L 38 - 126 U/L [place] ALT [Catalytic activity/Vol] 48 U/L 0 - 49 U/L [place] Comment on above: The ALT test is perf ormed by an updated assay method. Please note that the reference intervals have been changed and are now sex specific. AST [Catalytic activity/Vol] 32 U/L 15 - 46 U/L [place] Bilirubin Ql (U) 1.1 mg/dL 0.2 - 1.3 mg/dL [place] Bilirubin.direct [Mass/Vol] 0.0 mg/dL 0 - 0.3 mg/dL [place] Interpretation and review of laboratory results Abnormal [place] Protein [Mass/Vol] 8.7 g/dL High 6.3 - 8.2 g/dL [place] Lactic Acid, Plasmaon 2020 Lactate [Moles/Vol] 0.8 mmol/L 0.7 - 2 mmol/L [place] Test Performed by [facility], [address] [place] [id number] [place] [address] Lipaseon 10-30-2020 Lipase [Catalytic activity/Vol] 61 U/L 23 - 300 U/L [place] Test Performed by [facility], [facility] [place], [place] [id number] [place] [address] Otheron 10-30-2020 Test Performed by [facility], [address] [place] [address] Basic Metabolic Panel w/ Ref jane to MGon 08-15-2020 Anion gap [Moles/Vol] 11 mmol/L [place] Calcium [Mass/Vol] 9.0 mg/dL 8.4 - 10. 4 mg/dL [place] Chloride [Moles/Vol] 105 mmol/L 98 - 10 7 mmol/L [place] CO2 [Moles/Vol] 25 mmol/L 22 - 30 mmol/L [place] Creatinine [Mass/Vol] 0.81 mg/dL 0.52 - 1.25 mg/dL [place] EGFR IF NonAfrican [place]amanian >90.0 >60 mL/min [place] Comment on above: KDIGO guidelines pro [...] MDRD (S/P/Bld) [Vol rate/Area] mL/min/{1.73_m2} >60 mL/min [place] Glucose [Mass/Vol] 83 mg/dL 70 - 100 mg/dL [place] Potassium [Moles/Vol] 3.5 mmol/L 3.5 - 5.1 mmol/L [place] Sodium [Moles/Vol] 141 mmol/L 135 - 145 mmol/L [place] Urea nitrogen [Mass/Vol] 13 mg/dL 7 - 20 mg/dL [place] Test Performed by [id number] [place] [address] CBC auto differentialon 07-31 Erythrocyte distribution width (RBC) [Ratio] 13.7 % 11.5 - 14.5 % [place] Hematocrit (Bld) [Volume fraction] 33.2 % Low 40 - 52 % [place] Hemoglobin (Bld) [Mass/Vol] 11.1 g/dL Low 13 - 18 g/dL [place] Interpretation and review of laboratory results Abnormal [place] MCH (RBC) [Entitic mass] 29.4 pg 26 - 34 pg [place] MCHC (RBC) [Mass/Vol] 33.5 % 32 - 36 % [place] MCV (RBC) [Entitic vol] 87.7 fL 80 - 98 fL [place] Platelet mean volume (Bld) [Entitic vol] 8.3 fL 7.4 - 10.4 fL [place] Platelets (Bld) [#/Vol] 310 10*3/uL 140 - 440 10*3/uL [place] RBC (Bld) [#/Vol] 3.78 10*6/uL Low 4.4 - 5.9 10*6/uL [place] WBC (Bld) [#/Vol] 6.1 10*3/uL 3.6 - 10.7 10*3/uL [facility] Test Performed by [facility], [address] [place] [address] [facility] Magnesiumon 08-15-2020 Magnesium [Mass/Vol] 2.0 mg/dL 1.6 - 2 .3 mg/dL [facility] Test Performed by [facility], [address] [place] [address] [facility] Manual Differentialon 2019 Absolute Baso # 0.0 10*3/uL 0 - 0.2 10*3/uL [facility] Absolute Eos # 0.1 10*3/uL 0 - 0.5 10*3/uL [facility] Absolute Lymph # 1.1 10*3/uL 1.1 - 4.5 10*3/uL [facility] Absolute [place] # 0.2 10*3/uL 0.2 - 1.1 10*3/uL [facility] Absolute Neut # 4.6 10*3/uL 2.2 - 8.2 10*3/uL [facility] Bands 2 % 0 - 3 % [facility] Basophils 0 % 0 - 2 % [facility] Eosinophils 2 % 1 - 6 % [facility] Interpretation and review of laboratory results Abnormal [facility] Lymphocytes 18 % Low 20 - 40 % [facility] Monocytes 4 % 2 - 10 % [facility] RBC morphology finding Nom (Bld) Normal [facility] Seg Neutrophils 74 % 40 - 80 % [facility] TOTAL CELLS COUNTED [address] [facility] Test Performed by [facility], [address] [place] [address] [facility] Basic Metabolic Panel w/ Ref jane to MGon 08-14-2020 Anion gap [Moles/Vol] 10 mmol/L [facility] Calcium [Mass/Vol] 8.8 mg/dL 8.4 - 10. 4 mg/dL [facility] Chloride [Moles/Vol] 106 mmol/L 98 - 10 7 mmol/L [facility] [place] CO2 [Moles/Vol] 23 mmol/L 22 - 30 mmol/L [place] Creatinine [Mass/Vol] 0.78 mg/dL 0.52 - 1.25 mg/dL [place] EGFR IF NonAfrican Panamanian >90.0 >60 mL/min [place] Comment on above: KDIGO guidelines pro [...] MDRD (S/P/Bld) [Vol rate/Area] mL/min/{1.73_m2} >60 mL/min [place] Glucose [Mass/Vol] 81 mg/dL 70 - 100 mg/dL [place] Potassium [Moles/Vol] 3.6 mmol/L 3.5 - 5.1 mmol/L [place] Sodium [Moles/Vol] 139 mmol/L 135 - 145 mmol/L [place] Urea nitrogen [Mass/Vol] 10 mg/dL 7 - 20 mg/dL [place] Test Performed by [facility], [address] [place] [address] [place], [place] CBC auto differentialon 11- Absolute Baso # 0.0 10*3/uL 0 - 0.2 10*3/uL [place] Absolute Neut # 4.9 10*3/uL 1.8 - 7 10*3/uL [place] Basophils/100 WBC (Bld) 0.2 % 0 - 2 % [place] Eosinophils (Bld) [#/Vol] 0.3 10*3/uL 0 - 0.5 10*3/uL [place] Eosinophils/100 WBC (Bld) 5.2 % 1 - 6 % [place] Erythrocyte distribution width (RBC) [Ratio] 14.1 % 11.5 - 14.5 % [place] Granulocytes/100 WBC (Bld) 73.1 % 40 - 80 % [place] Hematocrit (Bld) [Volume fraction] 31.7 % Low 40 - 52 % [place] Hemoglobin (Bld) [Mass/Vol] 10.6 g/dL Low 13 - 18 g/dL [place] Interpretation and review of laboratory results Abnormal [place] Lymphocytes (Bld) [#/Vol] 0.8 10*3/uL Low 1 - 4.3 10*3/uL [place] Lymphocytes/100 WBC (Bld) 12.0 % Low 20 - 40 % [place] MCH (RBC) [Entitic mass] 29.5 pg 26 - 34 pg [place] MCHC (RBC) [Mass/Vol] 33.5 % 32 - 36 % [place] MCV (RBC) [Entitic vol] 88.1 fL 80 - 98 fL [place] Monocytes (Bld) [#/Vol] 0.6 10*3/uL 0 - 0.8 10*3/uL [place] Monocytes/100 WBC (Bld) 9.5 % 2 - 10 % [place] Platelet mean volume (Bld) [Entitic vol] 8.3 fL 7.4 - 10.4 fL [place] Platelets (Bld) [#/Vol] 258 10*3/uL 140 - 440 10*3/uL [place] RBC (Bld) [#/Vol] 3.60 10*6/uL Low 4.4 - 5.9 10*6/uL [place] WBC (Bld) [#/Vol] 6.6 10*3/uL 3.6 - 10.7 10*3/uL [place] Test Performed by [facility], [address] [place] [address] [place] Basic Metabolic Panel w/ Ref jane to MG 08-13-2020 Anion gap [Moles/Vol] 8 mmol/L [place] Calcium [Mass/Vol] 8.5 mg/dL 8.4 - 10. 4 mg/dL [place] Chloride [Moles/Vol] 106 mmol/L 98 - 10 7 mmol/L [place] CO2 [Moles/Vol] 25 mmol/L 22 - 30 mmol/L [place] Creatinine [Mass/Vol] 0.91 mg/dL 0.52 - 1.25 mg/dL [place] EGFR IF NonAfrican [place]amanian >90.0 >60 mL/min [place] Comment on above: KDIGO guidelines pro [...] MDRD (S/P/Bld) [Vol rate/Area] mL/min/{1.73_m2} >60 mL/min [place] Glucose [Mass/Vol] 87 mg/dL 70 - 100 mg/dL [place] Potassium [Moles/Vol] 3.5 mmol/L 3.5 - 5.1 mmol/L [place] Sodium [Moles/Vol] 138 mmol/L 135 - 145 mmol/L [place] Urea nitrogen [Mass/Vol] 11 mg/dL 7 - 20 mg/dL [place] Test Performed by [facility], [address] [place] [address], [place] [address] [place] CBC auto differentialon 11- Absolute Baso # 0.0 10*3/uL 0 - 0.2 10*3/uL [place] Absolute Neut # 4.3 10*3/uL 1.8 - 7 10*3/uL [place] Basophils/100 WBC (Bld) 0.7 % 0 - 2 % [place] Eosinophils (Bld) [#/Vol] 0.3 10*3/uL 0 - 0.5 10*3/uL [place] Eosinophils/100 WBC (Bld) 4.8 % 1 - 6 % [place] Erythrocyte distribution width (RBC) [Ratio] 13.9 % 11.5 - 14.5 % [place] Granulocytes/100 WBC (Bld) 74.4 % 40 - 80 % [place] Hematocrit (Bld) [Volume fraction] 30.0 % Low 40 - 52 % [place] Hemoglobin (Bld) [Mass/Vol] 10.0 g/dL Low 13 - 18 g/dL [place] Interpretation and review of laboratory results Abnormal [place] Lymphocytes (Bld) [#/Vol] 0.8 10*3/uL Low 1 - 4.3 10*3/uL [place] Lymphocytes/100 WBC (Bld) 13.4 % Low 20 - 40 % [place] MCH (RBC) [Entitic mass] 29.4 pg 26 - 34 pg [place] MCHC (RBC) [Mass/Vol] 33.4 % 32 - 36 % [place] MCV (RBC) [Entitic vol] 88.0 fL 80 - 98 fL [place] Monocytes (Bld) [#/Vol] 0.4 10*3/uL 0 - 0.8 10*3/uL [place] Monocytes/100 WBC (Bld) 6.7 % 2 - 10 % [place] Platelet mean volume (Bld) [Entitic vol] 8.2 fL 7.4 - 10.4 fL [place] Platelets (Bld) [#/Vol] 224 10*3/uL 140 - 440 10*3/uL [place] RBC (Bld) [#/Vol] 3.41 10*6/uL Low 4.4 - 5.9 10*6/uL [place] WBC (Bld) [#/Vol] 5.8 10*3/uL 3.6 - 10.7 10*3/uL [place] Test Performed by [id number] [place] [address] Magnesiumon 08-13-2020 Magnesium [Mass/Vol] 2.0 mg/dL 1.6 - 2 .3 mg/dL [place] Test Performed by [id number] [place] [address] Basic Metabolic Panel w/ Ref jane to MGon 08-12-2020 Anion gap [Moles/Vol] 10 mmol/L [place] Calcium [Mass/Vol] 9.1 mg/dL 8.4 - 10. 4 mg/dL [place] Chloride [Moles/Vol] 105 mmol/L 98 - 10 7 mmol/L [place] CO2 [Moles/Vol] 27 mmol/L 22 - 30 mmol/L [place] Creatinine [Mass/Vol] 0.98 mg/dL 0.52 - 1.25 mg/dL [place] EGFR IF NonAfrican Panamanian >90.0 >60 mL/min [place] Comment on above: KDIGO guidelines pro [...] MDRD (S/P/Bld) [Vol rate/Area] mL/min/{1.73_m2} >60 mL/min [place] Glucose [Mass/Vol] 72 mg/dL 70 - 100 mg/dL [place] Potassium [Moles/Vol] 3.7 mmol/L 3.5 - 5.1 mmol/L [place] Sodium [Moles/Vol] 142 mmol/L 135 - 145 mmol/L [place] Urea nitrogen [Mass/Vol] 14 mg/dL 7 - 20 mg/dL [place] CBC auto differentialon 11- Absolute Baso # 0.0 10*3/uL 0 - 0.2 10*3/uL [place] Absolute Neut # 6.8 10*3/uL 1.8 - 7 10*3/uL [place] Basophils/100 WBC (Bld) 0.3 % 0 - 2 % [place] Eosinophils (Bld) [#/Vol] 0.2 10*3/uL 0 - 0.5 10*3/uL [place] Eosinophils/100 WBC (Bld) 2.0 % 1 - 6 % [place] Erythrocyte distribution width (RBC) [Ratio] 14.3 % 11.5 - 14.5 % [place] Granulocytes/100 WBC (Bld) 77.9 % 40 - 80 % [place] Hematocrit (Bld) [Volume fraction] 28.8 % Low 40 - 52 % [place] Hemoglobin (Bld) [Mass/Vol] 9.6 g/dL Low 13 - 18 g/dL [place] Interpretation and review of laboratory results Abnormal [place] Lymphocytes (Bld) [#/Vol] 1.4 10*3/uL 1 - 4.3 10*3/uL [place] Lymphocytes/100 WBC (Bld) 16.1 % Low 20 - 40 % [place] MCH (RBC) [Entitic mass] 29.7 pg 26 - 34 pg [place] MCHC (RBC) [Mass/Vol] 33.4 % 32 - 36 % [place] MCV (RBC) [Entitic vol] 88.7 fL 80 - 98 fL [place] Monocytes (Bld) [#/Vol] 0.3 10*3/uL 0 - 0.8 10*3/uL [place], [place] Monocytes/100 WBC (Bld) 3.7 % 2 - 10 % [place] Platelet mean volume (Bld) [Entitic vol] 9.0 fL 7.4 - 10.4 fL [place] Platelets (Bld) [#/Vol] 260 10*3/uL 140 - 440 10*3/uL [place] RBC (Bld) [#/Vol] 3.24 10*6/uL Low 4.4 - 5.9 10*6/uL [place] WBC (Bld) [#/Vol] 8.7 10*3/uL 3.6 - 10.7 10*3/uL [place] Test Performed by [address] [address] [place] Otheron 08-12-2020 Test Performed by [address] [address] [place] Phosphoruson 08-12-2020 Phosphate [Mass/Vol] 2.7 mg/dL 2.5 - 4 .5 mg/dL [place] Basic Metabolic Panel w/ Ref jane to MGon 08-11-2020 Anion gap [Moles/Vol] 7 mmol/L [place] Calcium [Mass/Vol] 8.5 mg/dL 8.4 - 10. 4 mg/dL [place] Chloride [Moles/Vol] 103 mmol/L 98 - 10 7 mmol/L [place] CO2 [Moles/Vol] 28 mmol/L 22 - 30 mmol/L [place] Creatinine [Mass/Vol] 0.84 mg/dL 0.52 - 1.25 mg/dL [place] EGFR IF NonAfrican Panamanian >90.0 >60 mL/min [place] Comment on above: KDIGO guidelines pro [...] MDRD (S/P/Bld) [Vol rate/Area] mL/min/{1.73_m2} >60 mL/min [place] Glucose [Mass/Vol] 122 mg/dL High 70 - 100 mg/dL [place] Interpretation and review of laboratory results Abnormal [place] Potassium [Moles/Vol] 3.9 mmol/L 3.5 - 5.1 mmol/L [place] Sodium [Moles/Vol] 138 mmol/L 135 - 145 mmol/L [place] Urea nitrogen [Mass/Vol] 14 mg/dL 7 - 20 mg/dL [place] CBC auto differentialon 11-1 Absolute Baso # 0.0 10*3/uL 0 - 0.2 10*3/uL [place] Absolute Neut # 7.9 10*3/uL High 1.8 - 7 10*3/uL [place] Basophils/100 WBC (Bld) 0.1 % 0 - 2 % [place] Eosinophils (Bld) [#/Vol] 0.0 10*3/uL 0 - 0.5 10*3/uL [place] Eosinophils/100 WBC (Bld) 0.0 % Low 1 - 6 % [place] Erythrocyte distribution width (RBC) [Ratio] 14.1 % 11.5 - 14.5 % [place] Granulocytes/100 WBC (Bld) 88.0 % High 40 - 80 % [place] Hematocrit (Bld) [Volume fraction] 32.4 % Low 40 - 52 % [place] Hemoglobin (Bld) [Mass/Vol] 10.9 g/dL Low 13 - 18 g/dL [place] Interpretation and review of laboratory results Abnormal [place] Lymphocytes (Bld) [#/Vol] 0.6 10*3/uL Low 1 - 4.3 10*3/uL [place] Lymphocytes/100 WBC (Bld) 6.6 % Low 20 - 40 % [place] MCH (RBC) [Entitic mass] 29.7 pg 26 - 34 pg [place] MCHC (RBC) [Mass/Vol] 33.6 % 32 - 36 % [place] MCV (RBC) [Entitic vol] 88.3 fL 80 - 98 fL [place] Monocytes (Bld) [#/Vol] 0.5 10*3/uL 0 - 0.8 10*3/uL [place], [place] Monocytes/100 WBC (Bld) 5.3 % 2 - 10 % [place] Platelet mean volume (Bld) [Entitic vol] 9.2 fL 7.4 - 10.4 fL [place] Platelets (Bld) [#/Vol] 209 10*3/uL 140 - 440 10*3/uL [place] RBC (Bld) [#/Vol] 3.66 10*6/uL Low 4.4 - 5.9 10*6/uL [place] WBC (Bld) [#/Vol] 8.9 10*3/uL 3.6 - 10.7 10*3/uL [place] Test Performed by [facility], [address] [place] [id number] [place] [address] Hemoglobin and Hematocrit, B loodon 08-11-2020 Hematocrit (Bld) [Volume fraction] 33.3 % Low 40 - 52 % [place] Hemoglobin (Bld) [Mass/Vol] 11.1 g/dL Low 13 - 18 g/dL [place] Interpretation and review of laboratory results Abnormal [place] Test Performed by [address] Otheron 08-11-2020 Test Performed by [facility], [address] [place] [id number] [place] [address] Phosphoruson 08-11-2020 Phosphate [Mass/Vol] 3.2 mg/dL 2.5 - 4 .5 mg/dL [place] Surgical Pathologyon 020 Sodium [Moles/Vol] SEE BELOW [place], [place] 1 [id number] [facility] PATHOLOGY AND LABORATORY MEDICINE [address] [place] [address] FINAL SURGICAL PATHOLOGY REPORT NAME: RUTHIE CASTILLO : 1990 30 Y M BILLING NO.: [id number] LOCATION: [id number] PROCEDURE 08/09/2020 DATE: SURGEON: SPENCER FONSECA M.D. RECEIVED 08/10/2020 DATE: ATTENDING: SPENCER FONESCA M.D. REPORT DATE: 08/11/2020 COPIES TO: DIAGNOSIS: [...] mucosal folds. No gross lesions are identified. Ship Loader sections are submitted in cassettes A1 and [...] thickness and 1 cm in diameter. Multiple school admissions representative sections are submitted. Cassette Summary: B1) Stapled resection margin. B2) Open resection margin. B3) Ship Loader section of the colonic mucosa. B4-B6) Ship Loader sections of the adhesions. B7) Ship Loader section of the area with necrotic tissue. [...] characteristics determined by the clinical laboratories of [facility]. They have not been cleared by [...] negativity on decalcified specimens. Professional Performing Location: [place] [address]. DEPARTMENT OF PATHOLOGY AND LABORATORY MEDICINE [place], [place] [address] [place] Basic Metabolic Panel w/ Ref jane to MGon 08-10-2020 Anion gap [Moles/Vol] 13 mmol/L [place] Calcium [Mass/Vol] 8.7 mg/dL 8.4 - 10. 4 mg/dL [place] Chloride [Moles/Vol] 107 mmol/L 98 - 10 7 mmol/L [place] CO2 [Moles/Vol] 17 mmol/L Low 22 - 30 mmol/L [place] Creatinine [Mass/Vol] 0.87 mg/dL 0.52 - 1.25 mg/dL [place] EGFR IF NonAfrican Panamanian >90.0 >60 mL/min [place] Comment on above: KDIGO guidelines pro [...] MDRD (S/P/Bld) [Vol rate/Area] mL/min/{1.73_m2} >60 mL/min [place] Glucose [Mass/Vol] 181 mg/dL High 70 - 100 mg/dL [place] Interpretation and review of laboratory results Abnormal [place] Potassium [Moles/Vol] 5.6 mmol/L High 3.5 - 5.1 mmol/L [place] Sodium [Moles/Vol] 137 mmol/L 135 - 145 mmol/L [place] Urea nitrogen [Mass/Vol] 15 mg/dL 7 - 20 mg/dL [place] CBC auto differentialon - Absolute Baso # 0.0 10*3/uL 0 - 0.2 10*3/uL [place] Absolute Neut # 7.3 10*3/uL High 1.8 - 7 10*3/uL [place] Basophils/100 WBC (Bld) 0.3 % 0 - 2 % [place] Eosinophils (Bld) [#/Vol] 0.0 10*3/uL 0 - 0.5 10*3/uL [place] Eosinophils/100 WBC (Bld) 0.1 % Low 1 - 6 % [place] Erythrocyte distribution width (RBC) [Ratio] 13.9 % 11.5 - 14.5 % [place] Granulocytes/100 WBC (Bld) 90.4 % High 40 - 80 % [place] Hematocrit (Bld) [Volume fraction] 45.7 % 40 - 52 % [place] Hemoglobin (Bld) [Mass/Vol] 15.3 g/dL 13 - 18 g/dL [place] Interpretation and review of laboratory results Abnormal [place] Lymphocytes (Bld) [#/Vol] 0.3 10*3/uL Low 1 - 4.3 10*3/uL [place] Lymphocytes/100 WBC (Bld) 3.2 % Low 20 - 40 % [place] MCH (RBC) [Entitic mass] 29.5 pg 26 - 34 pg [place] MCHC (RBC) [Mass/Vol] 33.5 % 32 - 36 % [place] MCV (RBC) [Entitic vol] 88.1 fL 80 - 98 fL [place] Monocytes (Bld) [#/Vol] 0.5 10*3/uL 0 - 0.8 10*3/uL [place] Monocytes/100 WBC (Bld) 6.0 % 2 - 10 % [place] Platelet mean volume (Bld) [Entitic vol] 9.2 fL 7.4 - 10.4 fL [place] Platelets (Bld) [#/Vol] 293 10*3/uL 140 - 440 10*3/uL [place] RBC (Bld) [#/Vol] 5.19 10*6/uL 4.4 - 5.9 10*6/uL [place] WBC (Bld) [#/Vol] 8.1 10*3/uL 3.6 - 10.7 10*3/uL [place] Test Performed by [facility], [facility] [employer] [place] [address] [place], [place] Otheron 08-10-2020 Test Performed by [facility], [address] [place] [address] [place] Phosphoruson 08-10-2020 Phosphate [Mass/Vol] 3.4 mg/dL 2.5 - 4 .5 mg/dL [place] Potassiumon 08-10-2020 Potassium [Moles/Vol] 4.6 mmol/L 3.5 - 5.1 mmol/L [place] Comment on above: Slightly hemolysed, interpret with caution. Test Performed by [facility], [address] [place] [address] [place] XR ABDOMEN (KUB) (SINGLE AP VIEW)on 08-09-2020 Juan, [facility] Incoming Radiology Results From [facility] - 08/09/2020 9:22 PM EST Patient Name: RUTHIE CASTILLO ---Diagnostic Radiology--- Exam Date/Time 08/09/2020 21:21:36 EST Exam CR Abdomen AP Ordering Physician Deepa RICHARDS, [place] Accession Number [id number] [facility] Codes 89933 () Reason For Exam NG tube placement [...] Time: 08/09/2020 9:20 pm Signed by: MD OCE JOHN R Transcribed Date and Time: 08/09/2020 9:19 [place] Patient Name: RUTHIE CASTILLO ---Diagnostic Radiology--- Exam Date/Time 08/09/2020 21:21:36 EST Exam CR Abdomen AP Ordering Physician Deepa RICHARDS, [place] Accession Number [id number] CPT4 Codes 39423 () Reason For Exam NG tube placement [...] Dictated: 08/09/2020 9:19 pm Dictating Physician: MD SARAVANAN, SPENCER Concpecion Signed Date and Time: 08/09/2020 9:20 pm Signed by: MD COE JOHN R Transcribed Date and Time: 08/09/2020 9:19 [place] Basic Metabolic Panelon 10-0 Anion gap [Moles/Vol] 9 mmol/L [place] Calcium [Mass/Vol] 9.0 mg/dL 8.4 - 10. 4 mg/dL [place] Chloride [Moles/Vol] 103 mmol/L 98 - 10 7 mmol/L [place] CO2 [Moles/Vol] 26 mmol/L 22 - 30 mmol/L [place] Creatinine [Mass/Vol] 0.88 mg/dL 0.52 - 1.25 mg/dL [place] EGFR IF NonAfrican Panamanian >90.0 >60 mL/min [place] Comment on above: KDIGO guidelines pro [...] MDRD (S/P/Bld) [Vol rate/Area] mL/min/{1.73_m2} >60 mL/min [place] Glucose [Mass/Vol] 87 mg/dL 70 - 100 mg/dL [place] Potassium [Moles/Vol] 3.5 mmol/L 3.5 - 5.1 mmol/L [place] Sodium [Moles/Vol] 138 mmol/L 135 - 145 mmol/L [place] Urea nitrogen [Mass/Vol] 9 mg/dL 7 - 20 mg/dL [place] Test Performed by [facility], [address] [place] [address] [place] CBC WITH AUTO DIFFERENTIALon 07-01-2020 Absolute Baso # 0.1 10*3/uL 0 - 0.2 10*3/uL [place] Absolute Neut # 6.7 10*3/uL 1.8 - 7 10*3/uL [place] Basophils/100 WBC (Bld) 1.2 % 0 - 2 % [place] Eosinophils (Bld) [#/Vol] 0.5 10*3/uL 0 - 0.5 10*3/uL [place] Eosinophils/100 WBC (Bld) 5.2 % 1 - 6 % [place] Erythrocyte distribution width (RBC) [Ratio] 12.9 % 11.5 - 14.5 % [place] Granulocytes/100 WBC (Bld) 65.2 % 40 - 80 % [place] Hematocrit (Bld) [Volume fraction] 39.1 % Low 40 - 52 % [place] Hemoglobin (Bld) [Mass/Vol] 13.1 g/dL 13 - 18 g/dL [place] Interpretation and review of laboratory results Abnormal [place] Lymphocytes (Bld) [#/Vol] 2.3 10*3/uL 1 - 4.3 10*3/uL [place] Lymphocytes/100 WBC (Bld) 22.0 % 20 - 40 % [place] MCH (RBC) [Entitic mass] 29.5 pg 26 - 34 pg [place] MCHC (RBC) [Mass/Vol] 33.5 % 32 - 36 % [place] MCV (RBC) [Entitic vol] 88.1 fL 80 - 98 fL [place] Monocytes (Bld) [#/Vol] 0.7 10*3/uL 0 - 0.8 10*3/uL [place] Monocytes/100 WBC (Bld) 6.4 % 2 - 10 % [place] Platelet mean volume (Bld) [Entitic vol] 8.4 fL 7.4 - 10.4 fL [place] Platelets (Bld) [#/Vol] 281 10*3/uL 140 - 440 10*3/uL [place] RBC (Bld) [#/Vol] 4.44 10*6/uL 4.4 - 5.9 10*6/uL [place] WBC (Bld) [#/Vol] 10.3 10*3/uL 3.6 - 10.7 10*3/uL [place] Test Performed by [facility], [address] [place] [address] [place] Surgical Pathologyon 020 Sodium [Moles/Vol] SEE BELOW [place] 1 [id number] [facility] DEPARTMENT OF [facility] PATHOLOGY AND LABORATORY MEDICINE [address] [place] [address] FINAL SURGICAL PATHOLOGY REPORT NAME: RUTHIE CASTILLO Jamey : 1990 30 [facility] [id number] LOCATION: [id number] [id number] PROCEDURE 06/28/2020 DATE: [...] sections of bowel, 10 - possible polyp. [facility] [place] [place] Disclaimer: The following statement applies to all immunohistochemistry, in situ hybridization, molecular studies, and immunofluorescence testing. The use of one or more reagents in the above tests is regulated as an analyte specific reagent (ASR). These tests were developed and their performance characteristics determined by the clinical laboratories of [facility]. They have not been cleared by [...] negativity on decalcified specimens. Professional Performing Location: [place] [address]. DEPARTMENT OF PATHOLOGY AND LABORATORY MEDICINE [place], [place] [address] [place] Basic Metabolic Panelon 10-0 Anion gap [Moles/Vol] 9 mmol/L [place] Calcium [Mass/Vol] 9.3 mg/dL 8.4 - 10. 4 mg/dL [place] Chloride [Moles/Vol] 102 mmol/L 98 - 10 7 mmol/L [place] CO2 [Moles/Vol] 26 mmol/L 22 - 30 mmol/L [place] Creatinine [Mass/Vol] 0.84 mg/dL 0.52 - 1.25 mg/dL [place] EGFR IF NonAfrican Panamanian >90.0 >60 mL/min [place] Comment on above: KDIGO guidelines pro [...] MDRD (S/P/Bld) [Vol rate/Area] mL/min/{1.73_m2} >60 mL/min [place] Glucose [Mass/Vol] 85 mg/dL 70 - 100 mg/dL [place] Potassium [Moles/Vol] 3.7 mmol/L 3.5 - 5.1 mmol/L [place] Sodium [Moles/Vol] 137 mmol/L 135 - 145 mmol/L [place] Urea nitrogen [Mass/Vol] 10 mg/dL 7 - 20 mg/dL [place] Test Performed by [address] [address] [place] CBC WITH AUTO DIFFERENTIALon 06-30-2020 Absolute Baso # 0.0 10*3/uL 0 - 0.2 10*3/uL [place] Absolute Neut # 7.6 10*3/uL High 1.8 - 7 10*3/uL [place] Basophils/100 WBC (Bld) 0.3 % 0 - 2 % [place] Eosinophils (Bld) [#/Vol] 0.1 10*3/uL 0 - 0.5 10*3/uL [place] Eosinophils/100 WBC (Bld) 1.3 % 1 - 6 % [place] Erythrocyte distribution width (RBC) [Ratio] 13.3 % 11.5 - 14.5 % [place] Granulocytes/100 WBC (Bld) 72.4 % 40 - 80 % [place] Hematocrit (Bld) [Volume fraction] 40.1 % 40 - 52 % [place] Hemoglobin (Bld) [Mass/Vol] 13.5 g/dL 13 - 18 g/dL [place] Interpretation and review of laboratory results Abnormal [place] Lymphocytes (Bld) [#/Vol] 1.9 10*3/uL 1 - 4.3 10*3/uL [place] Lymphocytes/100 WBC (Bld) 18.2 % Low 20 - 40 % [place] MCH (RBC) [Entitic mass] 29.9 pg 26 - 34 pg [place] MCHC (RBC) [Mass/Vol] 33.8 % 32 - 36 % [place] MCV (RBC) [Entitic vol] 88.5 fL 80 - 98 fL [place] Monocytes (Bld) [#/Vol] 0.8 10*3/uL 0 - 0.8 10*3/uL [place] Monocytes/100 WBC (Bld) 7.8 % 2 - 10 % [place] Platelet mean volume (Bld) [Entitic vol] 9.0 fL 7.4 - 10.4 fL [place] Platelets (Bld) [#/Vol] 297 10*3/uL 140 - 440 10*3/uL [place] RBC (Bld) [#/Vol] 4.53 10*6/uL 4.4 - 5.9 10*6/uL [place] WBC (Bld) [#/Vol] 10.5 10*3/uL 3.6 - 10.7 10*3/uL [place] Test Performed by [id number] [place] [address] Basic Metabolic Panelon 09-3 Anion gap [Moles/Vol] 15 mmol/L [place] Calcium [Mass/Vol] 9.7 mg/dL 8.4 - 10. 4 mg/dL [place] Chloride [Moles/Vol] 103 mmol/L 98 - 10 7 mmol/L [place] CO2 [Moles/Vol] 20 mmol/L Low 22 - 30 mmol/L [place] Creatinine [Mass/Vol] 0.82 mg/dL 0.52 - 1.25 mg/dL [place] EGFR IF NonAfrican [place]ian >90.0 >60 mL/min [place] Comment on above: KDIGO guidelines pro [...] MDRD (S/P/Bld) [Vol rate/Area] mL/min/{1.73_m2} >60 mL/min [place] Glucose [Mass/Vol] 167 mg/dL High 70 - 100 mg/dL [place] Interpretation and review of laboratory results Abnormal [place] Potassium [Moles/Vol] 4.7 mmol/L 3.5 - 5.1 mmol/L [place] Sodium [Moles/Vol] 138 mmol/L 135 - 145 mmol/L [place] Urea nitrogen [Mass/Vol] 12 mg/dL 7 - 20 mg/dL [place] Test Performed by [facility], [address] [place] [id number] [place] CBC WITH AUTO DIFFERENTIALon 06-29-2020 Absolute Baso # 0.0 10*3/uL 0 - 0.2 10*3/uL [place] Absolute Neut # 13.1 10*3/uL High 1.8 - 7 10*3/uL [place] Basophils/100 WBC (Bld) 0.1 % 0 - 2 % [place] Eosinophils (Bld) [#/Vol] 0.0 10*3/uL 0 - 0.5 10*3/uL [place] Eosinophils/100 WBC (Bld) 0.0 % Low 1 - 6 % [place] Erythrocyte distribution width (RBC) [Ratio] 13.1 % 11.5 - 14.5 % [place] Granulocytes/100 WBC (Bld) 92.9 % High 40 - 80 % [place] Hematocrit (Bld) [Volume fraction] 41.7 % 40 - 52 % [place] Hemoglobin (Bld) [Mass/Vol] 14.2 g/dL 13 - 18 g/dL [place] Interpretation and review of laboratory results Abnormal [place] Lymphocytes (Bld) [#/Vol] 0.4 10*3/uL Low 1 - 4.3 10*3/uL [place] Lymphocytes/100 WBC (Bld) 3.2 % Low 20 - 40 % [place] MCH (RBC) [Entitic mass] 30.0 pg 26 - 34 pg [place] MCHC (RBC) [Mass/Vol] 34.0 % 32 - 36 % [place] MCV (RBC) [Entitic vol] 88.1 fL 80 - 98 fL [place] Monocytes (Bld) [#/Vol] 0.5 10*3/uL 0 - 0.8 10*3/uL [place] Monocytes/100 WBC (Bld) 3.8 % 2 - 10 % [place] Platelet mean volume (Bld) [Entitic vol] 9.1 fL 7.4 - 10.4 fL [place] Platelets (Bld) [#/Vol] 299 10*3/uL 140 - 440 10*3/uL [place] RBC (Bld) [#/Vol] 4.73 10*6/uL 4.4 - 5.9 10*6/uL [place] WBC (Bld) [#/Vol] 14.1 10*3/uL High 3.6 - 10.7 10*3/uL [place] Test Performed by [facility], [address] [place] [address] [place] Basic Metabolic Panelon 06-01 Anion gap [Moles/Vol] 15 mmol/L [place] Calcium [Mass/Vol] 9.5 mg/dL 8.4 - 10. 4 mg/dL [place] Chloride [Moles/Vol] 101 mmol/L 98 - 10 7 mmol/L [place] CO2 [Moles/Vol] 22 mmol/L 22 - 30 mmol/L [place] Creatinine [Mass/Vol] 0.76 mg/dL 0.52 - 1.25 mg/dL [place] EGFR IF NonAfrican Panamanian >90.0 >60 mL/min [place] Comment on above: KDIGO guidelines pro [...] MDRD (S/P/Bld) [Vol rate/Area] mL/min/{1.73_m2} >60 mL/min [place] Glucose [Mass/Vol] 78 mg/dL 70 - 100 mg/dL [place] Potassium [Moles/Vol] 4.0 mmol/L 3.5 - 5.1 mmol/L [place] Sodium [Moles/Vol] 137 mmol/L 135 - 145 mmol/L [place] Urea nitrogen [Mass/Vol] 9 mg/dL 7 - 20 mg/dL [place] Test Performed by [facility], [address] [place] [id number] [place] CBC WITH AUTO DIFFERENTIALon 06-28-2020 Absolute Baso # 0.0 10*3/uL 0 - 0.2 10*3/uL [place] Absolute Neut # 7.3 10*3/uL High 1.8 - 7 10*3/uL [place] Basophils/100 WBC (Bld) 0.3 % 0 - 2 % [place] Eosinophils (Bld) [#/Vol] 0.6 10*3/uL High 0 - 0.5 10*3/uL [place] Eosinophils/100 WBC (Bld) 5.7 % 1 - 6 % [place] Erythrocyte distribution width (RBC) [Ratio] 13.1 % 11.5 - 14.5 % [place] Granulocytes/100 WBC (Bld) 73.2 % 40 - 80 % [place] Hematocrit (Bld) [Volume fraction] 42.7 % 40 - 52 % [place] Hemoglobin (Bld) [Mass/Vol] 14.8 g/dL 13 - 18 g/dL [place] Interpretation and review of laboratory results Abnormal [place] Lymphocytes (Bld) [#/Vol] 1.4 10*3/uL 1 - 4.3 10*3/uL [place] Lymphocytes/100 WBC (Bld) 14.1 % Low 20 - 40 % [place] MCH (RBC) [Entitic mass] 30.4 pg 26 - 34 pg [place] MCHC (RBC) [Mass/Vol] 34.7 % 32 - 36 % [place] MCV (RBC) [Entitic vol] 87.6 fL 80 - 98 fL [place] Monocytes (Bld) [#/Vol] 0.7 10*3/uL 0 - 0.8 10*3/uL [place] Monocytes/100 WBC (Bld) 6.7 % 2 - 10 % [place] Platelet mean volume (Bld) [Entitic vol] 9.2 fL 7.4 - 10.4 fL [place] Platelets (Bld) [#/Vol] 249 10*3/uL 140 - 440 10*3/uL [place] RBC (Bld) [#/Vol] 4.88 10*6/uL 4.4 - 5.9 10*6/uL [place] WBC (Bld) [#/Vol] 9.9 10*3/uL 3.6 - 10.7 10*3/uL [place] Test Performed by [facility], [address] [place] [address] [place] Basic Metabolic Panelon - Anion gap [Moles/Vol] 12 mmol/L [place] Calcium [Mass/Vol] 9.0 mg/dL 8.4 - 10. 4 mg/dL [place] Chloride [Moles/Vol] 102 mmol/L 98 - 10 7 mmol/L [place] CO2 [Moles/Vol] 23 mmol/L 22 - 30 mmol/L [place] Creatinine [Mass/Vol] 0.78 mg/dL 0.52 - 1.25 mg/dL [place] EGFR IF NonAfrican [place]ian >90.0 >60 mL/min [place] Comment on above: KDIGO guidelines pro [...] MDRD (S/P/Bld) [Vol rate/Area] mL/min/{1.73_m2} >60 mL/min [place] Glucose [Mass/Vol] 72 mg/dL 70 - 100 mg/dL [place] Potassium [Moles/Vol] 3.5 mmol/L 3.5 - 5.1 mmol/L [place] Sodium [Moles/Vol] 137 mmol/L 135 - 145 mmol/L [place] Urea nitrogen [Mass/Vol] 8 mg/dL 7 - 20 mg/dL [place] Test Performed by [id number] [place] [address] CBC WITH AUTO DIFFERENTIALon 06-27-2020 Absolute Baso # 0.1 10*3/uL 0 - 0.2 10*3/uL [place] Absolute Neut # 10.2 10*3/uL High 1.8 - 7 10*3/uL [place] Basophils/100 WBC (Bld) 0.6 % 0 - 2 % [place] Eosinophils (Bld) [#/Vol] 0.3 10*3/uL 0 - 0.5 10*3/uL [place] Eosinophils/100 WBC (Bld) 2.2 % 1 - 6 % [place] Erythrocyte distribution width (RBC) [Ratio] 13.2 % 11.5 - 14.5 % [place] Granulocytes/100 WBC (Bld) 81.0 % High 40 - 80 % [place] Hematocrit (Bld) [Volume fraction] 41.0 % 40 - 52 % [place] Hemoglobin (Bld) [Mass/Vol] 13.9 g/dL 13 - 18 g/dL [place] Interpretation and review of laboratory results Abnormal [place] Lymphocytes (Bld) [#/Vol] 1.2 10*3/uL 1 - 4.3 10*3/uL [place] Lymphocytes/100 WBC (Bld) 9.3 % Low 20 - 40 % [place] MCH (RBC) [Entitic mass] 29.9 pg 26 - 34 pg [place] MCHC (RBC) [Mass/Vol] 34.0 % 32 - 36 % [place] MCV (RBC) [Entitic vol] 88.1 fL 80 - 98 fL [place] Monocytes (Bld) [#/Vol] 0.9 10*3/uL High 0 - 0.8 10*3/uL [place] Monocytes/100 WBC (Bld) 6.9 % 2 - 10 % [place] Platelet mean volume (Bld) [Entitic vol] 9.4 fL 7.4 - 10.4 fL [place] Platelets (Bld) [#/Vol] 212 10*3/uL 140 - 440 10*3/uL [place] RBC (Bld) [#/Vol] 4.66 10*6/uL 4.4 - 5.9 10*6/uL [place] WBC (Bld) [#/Vol] 12.6 10*3/uL High 3.6 - 10.7 10*3/uL [place] Test Performed by [address] Protime-INRon 06-27-2020 INR Coag (PPP) [Relative time] 1.0 {INR} [place], [place] Comment on above: Recommended Anticoag ulant [...] [Time] 10.7 s 9 - 12 s [place] Comment on above: . Test Performed by [address] TYPE AND SCREENon 06-27-2020 Sodium [Moles/Vol] O [place] Sodium [Moles/Vol] Positive [place] Sodium [Moles/Vol] Negative [place] Test Performed by [facility], [address] [place] [address] [place] Urinalysison 06-27-2020 Appearance (U) Clear Clear NA [place], [place] Comment on above: . Bilirubin Urine Negative Negative mg/dL [place] Comment on above: . Color (U) Light-Yellow Lt. Yellow NA [place], [place] Comment on above: . Glucose, Ur Normal Normal (<70) mg/dL [place], [place] Comment on above: . Interpretation and review of laboratory results Abnormal [place] Ketones Ql (U) >150 Abnormal Negative mg/dL [place] Comment on above: . LEUKOCYTES, UA Negative Negative Serafin/uL [place] Comment on above: . Nitrite, Urine Negative Negative NA [place] Comment on above: . Occult Blood,Urine Negative Negative mg/dL [place] Comment on above: . pH (U) 5.5 [pH] [place] Comment on above: . Protein (U) [Mass/Vol] Negative Negat deepti mg/dL [place] Comment on above: . Specific [place], Urine 1.025 [place], [place] Comment on above: . Urobilinogen, Urine Normal Normal (0-1) mg/dL [place], [place] Comment on above: . Test Performed by [facility], [address] [place] [address] [place] Abdomen Pelvis W Contrast on 06-26-2020 Patient Name: RUTHIE CASTILLO ---CT--- Exam Date/Time 06/26/2020 16:33:[address] Abdomen/Pelvis w/ IV Contrast (IV Onl Ordering Physician [id number] CARY Accession Number [id number] CPT4 Codes 04218 (CT Abdomen/Pelvis w/ IV Contrast (IV Onl), Q9967 (CT ISOVUE 370MG/[id number]&1) Reason For Exam Left lower quadrant abdominal [...] M Transcribed Date and Time: 06/26/2020 4:[address] [facility] [place], [place], [place] Incoming Radiology Results From [facility] - 06/26/2020 5:01 PM EDT Patient Name: RUTHIE CASTILLO ---CT--- Exam Date/Time 06/26/2020 16:33:[address] Abdomen/Pelvis w/ IV Contrast (IV Onl Ordering Physician [id number] CARY Accession Number [id number] CPT4 Codes 43685 (CT Abdomen/Pelvis w/ IV Contrast (IV Onl), Q9967 (CT ISOVUE 370MG/[id number]&1) Reason For Exam Left lower quadrant abdominal [...] M Transcribed Date and Time: 06/26/2020 4:53 [place] Comprehensive Metabolic Pane deja 06-26-2020 Albumin [Mass/Vol] 4.2 g/dL 3.5 - 5 g/dL [place] ALP [Catalytic activity/Vol] 54 U/L 38 - 126 U/L [place] ALT [Catalytic activity/Vol] 27 U/L 0 - 49 U/L [place] Comment on above: The ALT test is perf ormed by an updated assay method. Please note that the reference intervals have been changed and are now sex specific. Anion gap [Moles/Vol] 10 mmol/L [place] AST [Catalytic activity/Vol] 27 U/L 15 - 46 U/L [place] Bilirubin Ql (U) 2.2 mg/dL High 0.2 - 1.3 mg/dL [place] Calcium [Mass/Vol] 9.1 mg/dL 8.4 - 10. 4 mg/dL [place] Chloride [Moles/Vol] 106 mmol/L 98 - 10 7 mmol/L [place] CO2 [Moles/Vol] 24 mmol/L 22 - 30 mmol/L [place] Creatinine [Mass/Vol] 0.83 mg/dL 0.52 - 1.25 mg/dL [place] EGFR IF NonAfrican [place]amanian >90.0 >60 mL/min [place] Comment on above: KDIGO guidelines pro [...] MDRD (S/P/Bld) [Vol rate/Area] mL/min/{1.73_m2} >60 mL/min [place] Glucose [Mass/Vol] 77 mg/dL 70 - 100 mg/dL [place] Interpretation and review of laboratory results Abnormal [place] Potassium [Moles/Vol] 4.0 mmol/L 3.5 - 5.1 mmol/L [place] Protein [Mass/Vol] 7.6 g/dL 6.3 - 8.2 g/dL [place] Sodium [Moles/Vol] 140 mmol/L 135 - 145 mmol/L [place] Urea nitrogen [Mass/Vol] 8 mg/dL 7 - 20 mg/dL [place] Hemogram (CBC) w/Auto Diffon 06-26-2020 Absolute Baso # 0.1 10*3/uL 0 - 0.2 10*3/uL [place] Absolute Neut # 9.1 10*3/uL High 1.8 - 7 10*3/uL [place] Basophils/100 WBC (Bld) 0.8 % 0 - 2 % [place] Eosinophils (Bld) [#/Vol] 0.4 10*3/uL 0 - 0.5 10*3/uL [place] Eosinophils/100 WBC (Bld) 3.4 % 1 - 6 % [place] Erythrocyte distribution width (RBC) [Ratio] 13.3 % 11.5 - 14.5 % [place] Granulocytes/100 WBC (Bld) 75.4 % 40 - 80 % [place] Hematocrit (Bld) [Volume fraction] 41.5 % 40 - 52 % [place] Hemoglobin (Bld) [Mass/Vol] 13.8 g/dL 13 - 18 g/dL [place] Interpretation and review of laboratory results Abnormal [place] Lymphocytes (Bld) [#/Vol] 1.6 10*3/uL 1 - 4.3 10*3/uL [place] Lymphocytes/100 WBC (Bld) 12.9 % Low 20 - 40 % [place] MCH (RBC) [Entitic mass] 29.2 pg 26 - 34 pg [place] MCHC (RBC) [Mass/Vol] 33.3 % 32 - 36 % [place] MCV (RBC) [Entitic vol] 87.8 fL 80 - 98 fL [place] Monocytes (Bld) [#/Vol] 0.9 10*3/uL High 0 - 0.8 10*3/uL [place], [place] Monocytes/100 WBC (Bld) 7.5 % 2 - 10 % [place] Platelet mean volume (Bld) [Entitic vol] 8.8 fL 7.4 - 10.4 fL [place] Platelets (Bld) [#/Vol] 198 10*3/uL 140 - 440 10*3/uL [place] RBC (Bld) [#/Vol] 4.72 10*6/uL 4.4 - 5.9 10*6/uL [place] WBC (Bld) [#/Vol] 12.1 10*3/uL High 3.6 - 10.7 10*3/uL [place] Test Performed by [facility], [address] [place] [id number] [place] [address] Lactic Acid, Plasmaon 2019 Lactate [Moles/Vol] 1.1 mmol/L 0.7 - 2 mmol/L [place] Test Performed by [id number] [place] [address] Lipaseon 06-26-2020 Lipase [Catalytic activity/Vol] 41 U/L 23 - 300 U/L [place] Otheron 06-26-2020 Test Performed by [id number] [place] [address] CBCon 05-10-2020 Erythrocyte distribution width (RBC) [Ratio] 14.6 % High 11.5 - 14.5 % [place] Hematocrit (Bld) [Volume fraction] 45.0 % 40 - 52 % [place] Hemoglobin (Bld) [Mass/Vol] 15.0 g/dL 13 - 18 g/dL [place] Interpretation and review of laboratory results Abnormal [place] MCH (RBC) [Entitic mass] 30.3 pg 26 - 34 pg [place] MCHC (RBC) [Mass/Vol] 33.3 % 32 - 36 % [place] MCV (RBC) [Entitic vol] 91.1 fL 80 - 98 fL [place] Platelet mean volume (Bld) [Entitic vol] 9.6 fL 7.4 - 10.4 fL [place] Platelets (Bld) [#/Vol] 280 10*3/uL 140 - 440 10*3/uL [place] RBC (Bld) [#/Vol] 4.94 10*6/uL 4.4 - 5.9 10*6/uL [place] WBC (Bld) [#/Vol] 21.2 10*3/uL High 3.6 - 10.7 10*3/uL [place] Test Performed by [facility], [address] [place] [id number] [place] MRI ABDOMEN W WO CONTRASTon 05-10-2020 Patient Name: RUTHIE CASTILLO ---MRI--- Exam Date/Time 05/10/2020 09:51:32 EDT Exam MRI Abdomen w/ + w/o Contrast Ordering Physician [id number] MISHA VERMA Accession Number [id number] CPT4 Codes 22398 () Reason For Exam fistulas/crohns Addendum ---There are multiple sigmoid diverticulae and attendant inflammatory changes consistent with diverticulitis. There are inflammatory strands on the antimesenteric border extending to the bladder dome. Report Dictated on ---Final Addendum--- Dictated: 05/10/2020 11:52 am Addendum Dictating Physician: MD DESAI B NELSON Signed Date and Time: 05/10/2020 11:54 am Signed by: MD DEASI B NELSON Transcribed Date and Time: 05/10/2020 [...] NELSON Transcribed Date and Time: 05/10/2020 10:[address] [facility] [place] Incoming Radiology Results From [facility] - 05/10/2020 11:55 AM EDT Patient Name: RUTHIE CASTILLO ---MRI--- Exam Date/Time 05/10/2020 09:51:32 EDT Exam MRI Abdomen w/ + w/o Contrast Ordering Physician [id number] -MISHA HENDERSON Accession Number [id number] CPT4 Codes 89686 () Reason For Exam fistulas/crohns Addendum ---There [...] NELSON Transcribed Date and Time: 05/10/2020 10:06 [place] Basic Metabolic Panel w/ Ref jane to MGon 05-09-2020 Anion gap [Moles/Vol] 10 mmol/L [place] Calcium [Mass/Vol] 9.0 mg/dL 8.4 - 10. 4 mg/dL [place] Chloride [Moles/Vol] 103 mmol/L 98 - 10 7 mmol/L [place] CO2 [Moles/Vol] 24 mmol/L 22 - 30 mmol/L [place] Creatinine [Mass/Vol] 0.62 mg/dL 0.52 - 1.25 mg/dL [place] EGFR IF NonAfrican [place]ian >90.0 >60 mL/min [place] Comment on above: KDIGO guidelines pro [...] MDRD (S/P/Bld) [Vol rate/Area] mL/min/{1.73_m2} >60 mL/min [place] Glucose [Mass/Vol] 110 mg/dL High 70 - 100 mg/dL [place] Interpretation and review of laboratory results Abnormal [place] Potassium [Moles/Vol] 4.5 mmol/L 3.5 - 5.1 mmol/L [place] Sodium [Moles/Vol] 137 mmol/L 135 - 145 mmol/L [place] Urea nitrogen [Mass/Vol] 18 mg/dL 7 - 20 mg/dL [place] C-Reactive Proteinon 020 CRP [Mass/Vol] mg/L 0 - 6 mg/L [place] Comment on above: . CBC auto differentialon 04-30 Absolute Baso # 0.0 10*3/uL 0 - 0.2 10*3/uL [place] Absolute Neut # 13.1 10*3/uL High 1.8 - 7 10*3/uL [place] Basophils/100 WBC (Bld) 0.3 % 0 - 2 % [place] Eosinophils (Bld) [#/Vol] 0.1 10*3/uL 0 - 0.5 10*3/uL [place] Eosinophils/100 WBC (Bld) 0.6 % Low 1 - 6 % [place] Erythrocyte distribution width (RBC) [Ratio] 14.5 % 11.5 - 14.5 % [place] Granulocytes/100 WBC (Bld) 90.0 % High 40 - 80 % [place] Hematocrit (Bld) [Volume fraction] 44.3 % 40 - 52 % [place] Hemoglobin (Bld) [Mass/Vol] 14.6 g/dL 13 - 18 g/dL [place] Interpretation and review of laboratory results Abnormal [place] Lymphocytes (Bld) [#/Vol] 1.0 10*3/uL 1 - 4.3 10*3/uL [place] Lymphocytes/100 WBC (Bld) 7.2 % Low 20 - 40 % [place] MCH (RBC) [Entitic mass] 29.9 pg 26 - 34 pg [place] MCHC (RBC) [Mass/Vol] 32.9 % 32 - 36 % [place] MCV (RBC) [Entitic vol] 90.6 fL 80 - 98 fL [place] Monocytes (Bld) [#/Vol] 0.3 10*3/uL 0 - 0.8 10*3/uL [place] Monocytes/100 WBC (Bld) 1.9 % Low 2 - 10 % [place] Platelet mean volume (Bld) [Entitic vol] 9.1 fL 7.4 - 10.4 fL [place] Platelets (Bld) [#/Vol] 236 10*3/uL 140 - 440 10*3/uL [place] RBC (Bld) [#/Vol] 4.89 10*6/uL 4.4 - 5.9 10*6/uL [place] WBC (Bld) [#/Vol] 14.6 10*3/uL High 3.6 - 10.7 10*3/uL [place] Test Performed by [facility], [address] [place] [address] Lactic acid, plasmaon 2019 Lactate [Moles/Vol] 1.6 mmol/L 0.7 - 2 mmol/L [place] Test Performed by [address] Otheron 05-09-2020 Test Performed by [address] Sedimentation Rateon 020 Sed Rate 8 mm/h 0 - 10 mm/h [place] Test Performed by [facility], [address] [place] [address] Basic Metabolic Panelon Anion gap [Moles/Vol] 10 mmol/L [place] Calcium [Mass/Vol] 9.5 mg/dL 8.4 - 10. 4 mg/dL [place] Chloride [Moles/Vol] 103 mmol/L 98 - 10 7 mmol/L [place] CO2 [Moles/Vol] 22 mmol/L 22 - 30 mmol/L [place] Creatinine [Mass/Vol] 0.56 mg/dL 0.52 - 1.25 mg/dL [place] EGFR IF NonAfrican [place]ian >90.0 >60 mL/min [place] Comment on above: KDIGO guidelines pro [...] MDRD (S/P/Bld) [Vol rate/Area] mL/min/{1.73_m2} >60 mL/min [place] Glucose [Mass/Vol] 141 mg/dL High 70 - 100 mg/dL [place] Potassium [Moles/Vol] 4.5 mmol/L 3.5 - 5.1 mmol/L [place] Sodium [Moles/Vol] 136 mmol/L 135 - 145 mmol/L [place] Urea nitrogen [Mass/Vol] 17 mg/dL 7 - 20 mg/dL [place] CBC Auto Differentialon 08-0 Absolute Baso # 0.1 10*3/uL 0 - 0.2 10*3/uL [place] Absolute Neut # 12.9 10*3/uL High 1.8 - 7 10*3/uL [place] Basophils/100 WBC (Bld) 0.5 % 0 - 2 % [place] Eosinophils (Bld) [#/Vol] 0.2 10*3/uL 0 - 0.5 10*3/uL [place] Eosinophils/100 WBC (Bld) 1.3 % 1 - 6 % [place] Erythrocyte distribution width (RBC) [Ratio] 14.5 % 11.5 - 14.5 % [place] Granulocytes/100 WBC (Bld) 84.7 % High 40 - 80 % [place] Hematocrit (Bld) [Volume fraction] 45.6 % 40 - 52 % [place] Hemoglobin (Bld) [Mass/Vol] 15.1 g/dL 13 - 18 g/dL [place] Interpretation and review of laboratory results Abnormal [place] Lymphocytes (Bld) [#/Vol] 1.4 10*3/uL 1 - 4.3 10*3/uL [place] Lymphocytes/100 WBC (Bld) 9.3 % Low 20 - 40 % [place] MCH (RBC) [Entitic mass] 29.9 pg 26 - 34 pg [place] MCHC (RBC) [Mass/Vol] 33.1 % 32 - 36 % [place] MCV (RBC) [Entitic vol] 90.2 fL 80 - 98 fL [place], [place] Monocytes (Bld) [#/Vol] 0.6 10*3/uL 0 - 0.8 10*3/uL [place] Monocytes/100 WBC (Bld) 4.2 % 2 - 10 % [place] Platelet mean volume (Bld) [Entitic vol] 8.9 fL 7.4 - 10.4 fL [place] Platelets (Bld) [#/Vol] 281 10*3/uL 140 - 440 10*3/uL [place] RBC (Bld) [#/Vol] 5.06 10*6/uL 4.4 - 5.9 10*6/uL [place] WBC (Bld) [#/Vol] 14.7 10*3/uL High 3.6 - 10.7 10*3/uL [place] Test Performed by [facility], [address] [place] [id number] [place] ABDOMEN PELVIS W CONTRAST on 05-08-2020 Patient Name: RUTHIE CASTILLO ---CT--- Exam Date/Time 05/08/2020 21:16:[address] Abdomen/Pelvis w/ IV Contrast (IV Onl Ordering Physician JAMILAH OAKLEY LAURA Accession Number [id number] CPT4 Codes 16806 (CT Abdomen/Pelvis w/ IV Contrast (IV Onl), Q9967 (CT ISOVUE 370MG/[id number]&ML&1) Reason For Exam Abdominal pain with history [...] R Transcribed Date and Time: 05/08/2020 9:58 [place] Incoming [facility] - 05/08/2020 10:04 PM EDT Patient Name: RUTHIE CASTILLO ---CT--- Exam Date/Time 05/08/2020 21:16:[address] Abdomen/Pelvis w/ IV Contrast (IV Onl Ordering Physician JAMILAH OAKLEY LAURA Accession Number [id number] CPT4 Codes 46171 (CT Abdomen/Pelvis w/ IV Contrast (IV Onl), Q9967 (CT ISOVUE 370MG/[id number]&ML&1) Reason For Exam Abdominal pain with history [...] R Transcribed Date and Time: 05/08/2020 9:58 [place] Hepatic Function Panelon Albumin [Mass/Vol] 4.6 g/dL 3.5 - 5 g/dL [place] ALP [Catalytic activity/Vol] 89 U/L 38 - 126 U/L [place] ALT [Catalytic activity/Vol] 45 U/L 0 - 49 U/L [place] Comment on above: The ALT test is perf ormed by an updated assay method. Please note that the reference intervals have been changed and are now sex specific. AST [Catalytic activity/Vol] 36 U/L 15 - 46 U/L [place] Bilirubin Ql (U) 0.7 mg/dL 0.2 - 1.3 mg/dL [place] Bilirubin.direct [Mass/Vol] 0.0 mg/dL 0 - 0.3 mg/dL [place] Protein [Mass/Vol] 7.7 g/dL 6.3 - 8.2 g/dL [place] Lactic Acid, Plasmaon 2019 Lactate [Moles/Vol] 2.1 mmol/L Critically high 0.7 - 2 mmol/L [place] Comment on above: Critical Panic Lacta te has fallen below the [facility] CCL/ED Panic Call Protocol. For [facility] ED patients ONLY the Lactate Levels greater than 2.0 and less than or equal to 4.0 mmol/L fall under the Panic Call Policy. Lipaseon 05-08-2020 Lipase [Catalytic activity/Vol] 93 U/L 23 - 300 U/L [place] Otheron 05-08-2020 Interpretation and review of laboratory results Abnormal [place] Test Performed by [facility], [address] [place] [id number] [place] Urinalysison 05-08-2020 Appearance (U) Clear Clear [place], [place] Comment on above: . Bilirubin Urine Negative Negative mg/dL [place] Comment on above: . Color (U) Colorless Lt. Yellow [place], [place] Comment on above: . Glucose, Ur Normal Normal (<70) mg/dL [place] Comment on above: . Ketones Ql (U) Negative Negative mg/dL [place] Comment on above: . LEUKOCYTES, UA Negative Negative Serafin/uL [place] Comment on above: . Nitrite, Urine Negative Negative NA [place] Comment on above: . Occult Blood,Urine Negative Negative mg/dL [place] Comment on above: . pH (U) 6.5 [pH] [place] Comment on above: . Protein (U) [Mass/Vol] Negative Negat deepti mg/dL [place] Comment on above: . Specific [place], Urine 1.008 [place], [place] Comment on above: . Urobilinogen, Urine Normal Normal (0-1) mg/dL [place] Comment on above: . Test Performed by [facility], [address] [place] [id number] [place] CBCon 04-28-2020 Erythrocyte distribution width (RBC) [Ratio] 14.5 % 11.5 - 14.5 % [place] Hematocrit (Bld) [Volume fraction] 43.4 % 40 - 52 % [place] Hemoglobin (Bld) [Mass/Vol] 14.6 g/dL 13 - 18 g/dL [place] Interpretation and review of laboratory results Abnormal [place] MCH (RBC) [Entitic mass] 29.9 pg 26 - 34 pg [place] MCHC (RBC) [Mass/Vol] 33.7 % 32 - 36 % [place] MCV (RBC) [Entitic vol] 88.6 fL 80 - 98 fL [place] Platelet mean volume (Bld) [Entitic vol] 9.5 fL 7.4 - 10.4 fL [place] Platelets (Bld) [#/Vol] 264 10*3/uL 140 - 440 10*3/uL [place] RBC (Bld) [#/Vol] 4.90 10*6/uL 4.4 - 5.9 10*6/uL [place] WBC (Bld) [#/Vol] 10.8 10*3/uL High 3.6 - 10.7 10*3/uL [place] Test Performed by [facility], [facility] [place] [address] [place] Comprehensive Metabolic Pane l w/ Reflex to MGon 04-28-2020 Albumin [Mass/Vol] 4.5 g/dL 3.5 - 5 g/dL [place] ALP [Catalytic activity/Vol] 65 U/L 38 - 126 U/L [place] ALT [Catalytic activity/Vol] 27 U/L 0 - 49 U/L [place] Comment on above: The ALT test is perf ormed by an updated assay method. Please note that the reference intervals have been changed and are now sex specific. Anion gap [Moles/Vol] 9 mmol/L [place], [place] AST [Catalytic activity/Vol] 30 U/L 15 - 46 U/L [place] Bilirubin Ql (U) 0.6 mg/dL 0.2 - 1.3 mg/dL [place] Calcium [Mass/Vol] 9.3 mg/dL 8.4 - 10. 4 mg/dL [place] Chloride [Moles/Vol] 105 mmol/L 98 - 10 7 mmol/L [place] CO2 [Moles/Vol] 23 mmol/L 22 - 30 mmol/L [place] Creatinine [Mass/Vol] 0.66 mg/dL 0.52 - 1.25 mg/dL [place] EGFR IF NonAfrican Panamanian >90.0 >60 mL/min [place] Comment on above: KDIGO guidelines pro [...] MDRD (S/P/Bld) [Vol rate/Area] mL/min/{1.73_m2} >60 mL/min [place] Glucose [Mass/Vol] 102 mg/dL High 70 - 100 mg/dL [place] Interpretation and review of laboratory results Abnormal [place] Potassium [Moles/Vol] 3.9 mmol/L 3.5 - 5.1 mmol/L [place] Protein [Mass/Vol] 7.7 g/dL 6.3 - 8.2 g/dL [place] Sodium [Moles/Vol] 137 mmol/L 135 - 145 mmol/L [place] Urea nitrogen [Mass/Vol] 8 mg/dL 7 - 20 mg/dL [place] Test Performed by [facility], [address] [place] [id number] [place] [address] Add On Lab Teston 04-27-2020 Sodium [Moles/Vol] Accepted [place], [place] Comment on above: Specimen available & acceptable for analysis. Test Performed by [facility], [facility] [place], [place] [id number] [place] [address] C-Reactive Proteinon 020 CRP [Mass/Vol] 12.7 mg/L High 0 - 6 mg/L [place] Comment on above: . Test Performed by [facility], [facility] [place], [place] [id number] [place] [address] CRP [Mass/Vol] 12.6 mg/L High 0 - 6 mg/L [place], [place] Comment on above: . CT ABDOMEN PELVIS W CONTRAST on 04-27-2020 [facility], [facility] Incoming Radiology Results From [facility] - 04/27/2020 2:19 PM EDT Patient Name: RUTHIE CASTILLO ---CT--- Exam Date/Time 04/27/2020 13:49:[address] Abdomen/Pelvis w/ IV Contrast (IV Onl Ordering Physician MD ELVIA, [facility] Accession Number [id number] CPT4 Codes 26941 (CT Abdomen/Pelvis w/ IV Contrast (IV Onl) [...] MALAY Transcribed Date and Time: 04/27/2020 2:07 [place] Patient Name: RUTHIE CASTILLO ---CT--- Exam Date/Time 04/27/2020 13:49:[address] Abdomen/Pelvis w/ IV Contrast (IV Onl [facility]ing [facility] Accession Number [id number] CPT4 Codes 45554 (CT Abdomen/Pelvis w/ IV Contrast (IV Onl) [...] MALAY Transcribed Date and Time: 04/27/2020 2:07 [place], [place] Comprehensive Metabolic Pane l w/ Reflex to MGon 04-27-2020 Albumin [Mass/Vol] 4.1 g/dL 3.5 - 5 g/dL [place], [place] ALP [Catalytic activity/Vol] 64 U/L 38 - 126 U/L [place] ALT [Catalytic activity/Vol] 27 U/L 0 - 49 U/L [place] Comment on above: The ALT test is perf ormed by an updated assay method. Please note that the reference intervals have been changed and are now sex specific. Anion gap [Moles/Vol] 9 mmol/L [place], [place] AST [Catalytic activity/Vol] 28 U/L 15 - 46 U/L [place] Bilirubin Ql (U) 0.4 mg/dL 0.2 - 1.3 mg/dL [place] Calcium [Mass/Vol] 8.9 mg/dL 8.4 - 10. 4 mg/dL [place] Chloride [Moles/Vol] 106 mmol/L 98 - 10 7 mmol/L [place] CO2 [Moles/Vol] 23 mmol/L 22 - 30 mmol/L [place] Creatinine [Mass/Vol] 0.63 mg/dL 0.52 - 1.25 mg/dL [place] EGFR IF NonAfrican Panamanian >90.0 >60 mL/min [place] Comment on above: KDIGO guidelines pro [...] MDRD (S/P/Bld) [Vol rate/Area] mL/min/{1.73_m2} >60 mL/min [facility], [place] Glucose [Mass/Vol] 80 mg/dL 70 - 100 mg/dL [facility], [place] Potassium [Moles/Vol] 4.0 mmol/L 3.5 - 5.1 mmol/L [facility], [place] Protein [Mass/Vol] 7.1 g/dL 6.3 - 8.2 g/dL [facility], [place] Sodium [Moles/Vol] 138 mmol/L 135 - 145 mmol/L [facility], [place] Urea nitrogen [Mass/Vol] 9 mg/dL 7 - 20 mg/dL [facility], [place] Test Performed by [facility], [facility] [place] [address] [facility], [place] LACTIC ACID, PLASMAon 2019 Lactate [Moles/Vol] 0.9 mmol/L 0.7 - 2 mmol/L [facility], [place] Test Performed by [facility], [facility] [place] [address] [facility], [place] Otheron 04-27-2020 Interpretation and review of laboratory results Abnormal [facility], [place] Test Performed by [facility], [facility] [place] [address] [facility], [employer] Sediment[employer] Rateon 020 Interpretation and review of laboratory results Abnormal [place], [place] Sed Rate 19 mm/h High 0 - 10 mm/h [place] Test Performed by [facility], [address] [place] [id number] [place] Urinalysison 04-27-2020 Appearance (U) Clear Clear [place], [place] Comment on above: . Bilirubin Urine Negative Negative mg/dL [place] Comment on above: . Color (U) Light-Yellow Lt. Yellow NA [place] Comment on above: . Glucose, Ur Normal Normal (<70) mg/dL [place] Comment on above: . Ketones Ql (U) Negative Negative mg/dL [place] Comment on above: . LEUKOCYTES, UA Negative Negative Serafin/uL [place] Comment on above: . Nitrite, Urine Negative Negative [place] Comment on above: . Occult Blood,Urine Negative Negative mg/dL [place] Comment on above: . pH (U) 6.5 [pH] [place] Comment on above: . Protein (U) [Mass/Vol] Negative Negat deepti mg/dL [place] Comment on above: . Specific [place], Urine 1.018 [place] Comment on above: . Urobilinogen, Urine Normal Normal (0-1) mg/dL [place] Comment on above: . Comprehensive Metabolic Pane deja 02-19-2020 Albumin [Mass/Vol] 4.4 g/dL Normal 3.9-4.9 [facility] Comment on above: Performed By: #### C MP #### [place] [address] ALP [Catalytic activity/Vol] 87 U/L Normal 38-113 [facility] Comment on above: Performed By: #### C MP #### [place] [address] ALT [Catalytic activity/Vol] 40 U/L Normal 10-54 [facility] Comment on above: Performed By: #### C MP #### [place] [address] Anion gap [Moles/Vol] 13 mmol/L Normal 9-18 [facility] Comment on above: Performed By: #### C MP #### [facility] [address] [place] [address] AST [Catalytic activity/Vol] 29 U/L Normal 14-40 [facility] Comment on above: Performed By: #### C MP #### [facility] [address] [place], [place] [address] Bilirubin [Mass/Vol] 0.2 mg/dL Normal 0.2-1.3 [facility] Comment on above: Performed By: #### C MP #### [facility] [address] [place], [place] [address] Calcium [Mass/Vol] 9.2 mg/dL Normal 8.5-10.2 [facility] Comment on above: Performed By: #### C MP #### [facility] [address] [place] [address] Chloride [Moles/Vol] 102 mmol/L Normal 97-105 [facility] Comment on above: Performed By: #### C MP #### [facility] [address] [place] [address] CO2 Blood 24 mmol/L Normal 22-30 [facility] Comment on above: Performed By: #### C MP #### [facility] [address] [place], [place] [address] Creatinine [Mass/Vol] 0.72 mg/dL Low 0.73-1.22 [facility] Comment on above: Performed By: #### C MP #### [facility] [address] [place] [address] Glucose [Mass/Vol] 112 mg/dL High 74-99 [facility] Comment on above: Result Comment: The [place] Diabetes Association (ADA) provides guidance for cutoff [...] Standards of Medical Care in Diabetes 2016; [place] [employer] Association. Diabetes Care. 2016;39(Suppl 1). Performed By: #### C MP #### [facility] [address] [place] [address] Potassium [Moles/Vol] 3.7 mmol/L Normal 3.7-5.1 [facility] Comment on above: Performed By: #### C MP #### [place] [address] Protein [Mass/Vol] 7.2 g/dL Normal 6.3-8.0 [facility] Comment on above: Performed By: #### C MP #### [place] [address] Sodium [Moles/Vol] 139 mmol/L Normal 136-144 [facility] Comment on above: Performed By: #### C MP #### [place] [address] Urea nitrogen [Mass/Vol] 7 mg/dL Low 9-24 [facility] Comment on above: Performed By: #### C MP #### [place] [address] Hemogram/Diffon 02-19-2020 Abs Immature Grans 0.04 thou/cmm Normal 0.00-0.05 [facility] Comment on above: Performed By: #### C BCD1 #### [place] [address] Abs Neut (ANC) 6.46 thou/cmm High 1.78-5.38 [facility] Comment on above: Performed By: #### C BCD1 #### [place] [address] Abs. Baso 0.02 thou/cmm Normal 0.01-0.08 [facility] Comment on above: Performed By: #### C BCD1 #### [place] [address] Abs. [place] 0.52 thou/cmm Normal 0.30-0.82 [facility] Comment on above: Performed By: #### C BCD1 #### [facility] [address] [place] [address] Basophils/100 WBC (Bld) 0.2 % Normal [facility] Comment on above: Performed By: #### C BCD1 #### [facility] [address] [place] [address] Eosinophils (Bld) [#/Vol] 0.47 thou/cmm Normal 0.04-0.54 [facility] Comment on above: Performed By: #### C BCD1 #### [facility] [address] [place] [address] Eosinophils/100 WBC (Bld) 5.0 % Normal [facility] Comment on above: Performed By: #### C BCD1 #### [place] [address] Erythrocyte distribution width (RBC) [Ratio] 13.5 % Normal 11.6-14.4 [facility] Comment on above: Performed By: #### C BCD1 #### [place] [address] Hematocrit (Bld) [Volume fraction] 45.0 % Normal 40.1-51.0 [facility] Comment on above: Performed By: #### C BCD1 #### [facility] [address] [place] [address] Hemoglobin (Bld) [Mass/Vol] 15.4 g/dL Normal 13.7-17.5 [facility] Comment on above: Performed By: #### C BCD1 #### [facility] [address] [place] [address] Immature Grans 0.40 % Normal [facility] Comment on above: Performed By: #### C BCD1 #### [facility] [address] [place] [address] Lymphocytes (Bld) [#/Vol] 1.84 thou/cmm Normal 0.84-2.85 [facility] Comment on above: Performed By: #### C BCD1 #### [facility] [address] [place], [place] [address] Lymphocytes/100 WBC (Bld) 19.7 % Normal [facility] Comment on above: Performed By: #### C BCD1 #### [facility] [address] [place], [place] [address] MCH (RBC) [Entitic mass] 29.7 pg Normal 25.7-32.2 [facility] Comment on above: Performed By: #### C BCD1 #### [facility] [address] [place], [place] [address] MCHC (RBC) [Mass/Vol] 34.2 % Normal 32.3-36.5 [facility] Comment on above: Performed By: #### C BCD1 #### [facility] [address] [place], [place] [address] MCV (RBC) [Entitic vol] 86.7 fL Normal 83.2-95.6 [facility] Comment on above: Performed By: #### C BCD1 #### [facility] [address] [place], [place] [address] Monocytes/100 WBC (Bld) 5.6 % Normal [facility] Comment on above: Performed By: #### C BCD1 #### [facility] [address] [place], [place] [address] Platelet mean volume (Bld) [Entitic vol] 11.1 fL Normal 8.7-12.0 [facility] Comment on above: Performed By: #### C BCD1 #### [facility] [address] [place], [place] [address] Platelets (Bld) [#/Vol] 269 thou/cmm Normal 141-365 [facility] Comment on above: Performed By: #### C BCD1 #### [facility] [address] [place], [place] [address] RBC (Bld) [#/Vol] 5.19 mil/cmm Normal 4.63-6.08 [facility] Comment on above: Performed By: #### C BCD1 #### [facility] [address] [place], [place] [address] RDW SD 42.5 fl Normal 36.1-45.8 [facility] Comment on above: Performed By: #### C BCD1 #### [facility] [address] [place] [address] Seg Neutrophil 69.1 % Normal [facility] Comment on above: Performed By: #### C BCD1 #### [place] [address] WBC (Bld) [#/Vol] 9.35 thou/cmm High 4.23-9.07 [facility] Comment on above: Performed By: #### C BCD1 #### [place] [address] Lipase Bloodon 02-19-2020 Lipase Blood 46 U/L Normal 16-61 [facility] Comment on above: Performed By: #### L IP #### [place] [address] MDRD GFRon 02-19-2020 GFR/1.73 sq M predicted among non-blacks MDRD (S/P/Bld) [Vol rate/Area] mL/min/{1.73_m2} Normal >60mL/min/ 1.73m2 [facility] Comment on above: Result Comment: If t he patient is , multiply the result by 1.210. Performed By: #### G FR #### [place] [address] Urinalysis Routineon 020 Bacteria LM.HPF (Urine sed) [#/Area] NONE Normal None [facility] Comment on above: Performed By: #### U RIN2 #### [facility] [address] [place] [address] Ep Cells Urine 0.2 /hpf Normal 0.0-5.0 [facility] Comment on above: Performed By: #### U RIN2 #### [place] [address] Hyaline Cast 0.3 /lpf Normal 0.0-1.0 [facility] Comment on above: Performed By: #### U RIN2 #### [facility] [address] [place] [address] RBC LM.HPF (Urine sed) [#/Area] 1.7 /[HPF] Normal 0.0-5.0 [facility] Comment on above: Performed By: #### U RIN2 #### [facility] [address] [place] [address] WBC LM.HPF (Urine sed) [#/Area] 0.4 /[HPF] Normal 0.0-5.0 [facility] Comment on above: Performed By: #### U RIN2 #### [facility] [address] [place] [address] Appearance (U) CLEAR Normal [facility] Comment on above: Performed By: #### U RIN2 #### [facility] [address] [place] [address] Bilirubin (U) [Mass/Vol] Negative Normal Negative [facility] Comment on above: Performed By: #### U RIN2 #### [place] [address] Color (U) YELLOW Normal [facility] Comment on above: Performed By: #### U RIN2 #### [place] [address] Glucose Ql (U) Negative Normal Negative [facility] Comment on above: Performed By: #### U RIN2 #### [place] [address] Hemoglobin,Urine Negative Normal Negative [facility] Comment on above: Performed By: #### U RIN2 #### [facility] [address] [place] [address] Ketone Urine Negative Normal Negative [facility] Comment on above: Performed By: #### U RIN2 #### [facility] [address] [place] [address] Leukocytes Esterase Negative Normal Negative [facility] Comment on above: Performed By: #### U RIN2 #### [place] [address] Nitrites Urine Negative Normal Negative [facility] Comment on above: Performed By: #### U RIN2 #### [facility] [address] [place] [address] pH (U) 6.0 [pH] Normal 5.0-8.0 [facility] Comment on above: Performed By: #### U RIN2 #### [facility] [address] [place] [address] Protein (U) [Mass/Vol] Negative Normal Negative [facility] Comment on above: Performed By: #### U RIN2 #### [facility] [address] [place] [address] Specific [place], Ur 1.008 Normal 1.005-1 .03 0 [facility] Comment on above: Performed By: #### U RIN2 #### [facility] [address] [place] [address] Urobilinogen,Ur 0.2 EU/dL Normal 0.2-1.0 [facility] Comment on above: Performed By: #### U RIN2 #### [facility] [address] [place] [address] Blood Occult Stool Screen #1 Ordered By: Winston Jefferson on 10-21-2019 Hemoglobin.gastrointes tinal Ql (Stl) Positive Negative NA [facility] Work Phone: Test Performed by [facility], [address] , [address] Work Phone: Comp Metabolic Panelon 10-21 ALP [Catalytic activity/Vol] 69 U/L Normal 38-126 [facility] Comment on above: Performed By: #### H EMDF, CMP3, LIPA4 #### [facility] [address] [place] [address] ALT [Catalytic activity/Vol] 66 U/L Normal 13-69 [facility] Comment on above: Performed By: #### H EMDF, CMP3, LIPA4 #### [facility] [address] [place] [address] Anion gap [Moles/Vol] 13 Normal [facility] Comment on above: Performed By: #### H EMDF, CMP3, LIPA4 #### [facility] [address] [place] [address] AST [Catalytic activity/Vol] 42 U/L Normal 15-46 [facility] Comment on above: Performed By: #### H EMDF, CMP3, LIPA4 #### [facility] [address] [place] [address] Bilirubin [Mass/Vol] 0.6 mg/dL Normal 0.2-1.3 [facility] Comment on above: Performed By: #### H EMDF, CMP3, LIPA4 #### [facility] [address] [place] [address] Calcium [Mass/Vol] 10.3 mg/dL Normal 8.4-10.4 [facility] Comment on above: Performed By: #### H EMDF, CMP3, LIPA4 #### [facility] [address] [place] [address] CO2 [Moles/Vol] 26 mmol/L Normal 22-30 [facility] Comment on above: Performed By: #### H EMDF, CMP3, LIPA4 #### [facility] [address] [place] [address] Creatinine [Mass/Vol] 0.81 mg/dL Normal 0.52-1.25 [facility] Comment on above: Performed By: #### H EMDF, CMP3, LIPA4 #### [facility] [address] [place] [address] GFR/1.73 sq M predicted among blacks MDRD (S/P/Bld) [Vol rate/Area] mL/min/{1.73_m2} Normal >60 [facility] Comment on above: Performed By: #### H EMDF, CMP3, LIPA4 #### [facility] [address] [place] [address] GFR/1.73 sq M predicted among non-blacks MDRD (S/P/Bld) [Vol rate/Area] mL/min/{1.73_m2} Normal >60 [facility] Comment on above: Result Comment: Sour ce- MDRD equation with creatinine calibration to IDMS(NKDEP) eGFR not recommended for drug dose adjustment Performed By: #### H EMDF, CMP3, LIPA4 #### [facility] [address] [place] [address] Glucose [Mass/Vol] 95 mg/dL Normal 70-100 [facility] Comment on above: Performed By: #### H EMDF, CMP3, LIPA4 #### [facility] [address] [place] [address] Protein [Mass/Vol] 9.1 g/dL High 6.3-8.2 [facility] Comment on above: Performed By: #### H EMDF, CMP3, LIPA4 #### [facility] [address] [place] [address] Urea nitrogen [Mass/Vol] 11 mg/dL Normal 7-20 [facility] Comment on above: Performed By: #### H EMDF, CMP3, LIPA4 #### [facility] [address] [place] [address] Potassium [Moles/Vol] 4.7 mmol/L Normal 3.5-5.1 [facility] Comment on above: Performed By: #### H EMDF, CMP3, LIPA4 #### [facility] [address] [place] [address] Albumin [Mass/Vol] 5.3 g/dL High 3.5-5.0 [facility] Comment on above: Performed By: #### H EMDF, CMP3, LIPA4 #### [facility] [address] [place] [address] Chloride [Moles/Vol] 103 mmol/L Normal 98-107 [facility] Comment on above: Performed By: #### H EMDF, CMP3, LIPA4 #### [facility] [address] [place] [address] Sodium [Moles/Vol] 141 mmol/L Normal 135-145 [facility] Comment on above: Performed By: #### H EMDF, CMP3, LIPA4 #### [facility] [address] [place] [address] Complete Urinalysison 2019 Appearance (U) Clear Normal Clear [facility] Comment on above: Performed By: #### H EMDF, CMP3, LIPA4 #### [facility] [address] [place] [address] Bilirubin,Urine Negative Normal Negative [facility] Comment on above: Performed By: #### H EMDF, CMP3, LIPA4 #### [facility] [address] [place] [address] Color (U) COLORLESS Normal Lt. Yellow [facility] Comment on above: Performed By: #### H EMDF, CMP3, LIPA4 #### [facility] [address] [place] [address] Glucose Ql (U) Normal Normal Normal (<70) [facility] Comment on above: Performed By: #### H EMDF, CMP3, LIPA4 #### [facility] [address] [place] [address] Ketone,Urine Negative Normal Negative [facility] Comment on above: Performed By: #### H EMDF, CMP3, LIPA4 #### [facility] [address] [place] [address] Leukocytes,Urine Negative Normal Negative [facility] Comment on above: Performed By: #### H EMDF, CMP3, LIPA4 #### [facility] [address] [place] [address] Nitrites,Urine Negative Normal Negative [facility] Comment on above: Performed By: #### H EMDF, CMP3, LIPA4 #### [facility] [address] [place] [address] Occult Blood,Urine Negative Normal Negative [facility] Comment on above: Performed By: #### H EMDF, CMP3, LIPA4 #### [facility] [address] [place] [address] pH (U) 7.5 Normal 5.0-8.0 [facility] Comment on above: Performed By: #### H EMDF, CMP3, LIPA4 #### [facility] [address] [place] [address] Protein (U) [Mass/Vol] Negative Normal Negative [facility] Comment on above: Performed By: #### H EMDF, CMP3, LIPA4 #### [employer] [address] [place] [address] Specific [place],Urine 1.008 Normal 1.005 -1.03 0 [facility] [employer] [facility] Comment on above: Performed By: #### H EMDF, CMP3, LIPA4 #### [facility] [employer] [facility] [address] [place] [address] Urobilinogen,Urine Normal Normal Normal (0-1) [facility] Comment on above: Performed By: #### H EMDF, CMP3, LIPA4 #### [facility] [employer] [facility] [address] [place] [address] Comprehensive Metabolic Pane lOrdered By: Winston Jefferson on 10-21-2019 Albumin [Mass/Vol] 5.3 g/dL High 3.5 - 5 g/dL [facility] Work Phone: [phone] ALP [Catalytic activity/Vol] 69 U/L 38 - 126 U/L [facility] Work Phone: [phone] ALT [Catalytic activity/Vol] 66 U/L 13 - 69 U/L [facility] Work Phone: [phone] Anion gap [Moles/Vol] 13 mmol/L [facility] Work Phone: [phone] AST [Catalytic activity/Vol] 42 U/L 15 - 46 U/L [facility] Work Phone: [phone] Bilirubin [Mass/Vol] 0.6 mg/dL 0.2 - 1 .3 mg/dL [facility] Work Phone: [phone] Calcium [Mass/Vol] 10.3 mg/dL 8.4 - 10. 4 mg/dL [facility] Work Phone: [phone] Chloride [Moles/Vol] 103 mmol/L 98 - 10 7 mmol/L [facility] Work Phone: [phone] CO2 [Moles/Vol] 26 mmol/L 22 - 30 mmol/L [facility] Work Phone: [phone] Creatinine [Mass/Vol] 0.81 mg/dL 0.52 - 1.25 mg/dL [facility] Work Phone: [phone] EGFR IF NonAfrican Panamanian >60.0 >60 mL/min [facility] Work Phone: [phone] Comment on above: Source- MDRD equatio n with creatinine calibration to IDMS(NKDEP) eGFR not recommended for drug dose adjustment GFR/1.73 sq M.predicted among blacks MDRD (S/P/Bld) [Vol rate/Area] mL/min/{1.73_m2} >60 mL/min [employer] Work Phone: [phone] Glucose [Mass/Vol] 95 mg/dL 70 - 100 mg/dL [employer] Work Phone: [phone] Interpretation and review of laboratory results Abnormal [employer] Work Phone: [phone] Potassium [Moles/Vol] 4.7 mmol/L 3.5 - 5.1 mmol/L [employer] Work Phone: [phone] Protein [Mass/Vol] 9.1 g/dL High 6.3 - 8.2 g/dL [employer] Work Phone: [phone] Sodium [Moles/Vol] 141 mmol/L 135 - 145 mmol/L [employer] Work Phone: [phone] Urea nitrogen [Mass/Vol] 11 mg/dL 7 - 20 mg/dL [employer] Work Phone: [phone] Fecal Occult,Stool Single Sp econ 10-21-2019 Fecal Occult,Stool Single Spec Positive Normal Negative [facility] Comment on above: Performed By: #### H EMDF, CMP3, LIPA4 #### [facility] [address] [place] [address] Hemogram (CBC) w/Auto DiffOr dered By: Winston Jefferson on 10-21-2019 Absolute Baso # 0.1 10*3/uL 0 - 0.2 10*3/uL [employer] Work Phone: [phone] Absolute Neut # 7.8 10*3/uL High 1.8 - 7 10*3/uL [employer] Work Phone: 222 Basophils/100 WBC (Bld) 0.8 % 0 - 2 % [facility] Work Phone: [phone] Eosinophils (Bld) [#/Vol] 0.1 10*3/uL 0 - 0.5 10*3/uL [facility] Work Phone: [phone] Eosinophils/100 WBC (Bld) 1.2 % 1 - 6 % [facility] Work Phone: [phone] Erythrocyte distribution width (RBC) [Ratio] 15.4 % High 11.5 - 14.5 % [employer] Work Phone: [phone] Granulocytes/100 WBC (Bld) 73.9 % 40 - 80 % [facility] Work Phone: [phone] Hematocrit (Bld) [Volume fraction] 51.1 % 40 - 52 % [facility] Work Phone: [phone] Hemoglobin (Bld) [Mass/Vol] 16.9 g/dL 13 - 18 g/dL [employer] Work Phone: [phone] Interpretation and review of laboratory results Abnormal [employer] Work Phone: [phone] Lymphocytes (Bld) [#/Vol] 1.7 10*3/uL 1 - 4.3 10*3/uL [employer] Work Phone: [phone] Lymphocytes/100 WBC (Bld) 16.5 % Low 20 - 40 % [employer] Work Phone: [phone] MCH (RBC) [Entitic mass] 29.3 pg 26 - 34 pg [employer] Work Phone: [phone] MCHC 33.0 % 32 - 36 % [employer] Work Phone: [phone] MCV (RBC) [Entitic vol] 88.8 fL 80 - 98 fL [employer] Work Phone: [phone] Monocytes (Bld) [#/Vol] 0.8 10*3/uL 0 - 0.8 10*3/uL [employer] Work Phone: [phone] Monocytes/100 WBC (Bld) 7.6 % 2 - 10 % [employer] Work Phone: [phone] Platelet mean volume (Bld) [Entitic vol] 8.7 fL 7.4 - 10.4 fL [employer] Work Phone: [phone] Platelets (Bld) [#/Vol] 334 10*3/uL 140 - 440 10*3/uL [facility] Work Phone: [phone] RBC (Bld) [#/Vol] 5.76 10*6/uL 4.4 - 5.9 10*6/uL [facility] Work Phone: WBC (Bld) [#/Vol] 10.5 10*3/uL 3.6 - 10.7 10*3/uL [facility] Work Phone: Test Performed by [facility], [address] , [place], [place] [id number] [place] [address] Work Phone: Hemogram w/ [employer] 10-21 Abs Baso Cnt 0.1 10*3/uL Normal 0.0-0.2 [facility] Comment on above: Performed By: #### H EMDF, CMP3, LIPA4 #### [facility] [address] [place] [address] Abs Neutrophile Cnt 7.8 10*3/uL High 1.8-7.0 [facility] Comment on above: Performed By: #### H EMDF, CMP3, LIPA4 #### [facility] [address] [place] [address] Basophils/100 WBC (Bld) 0.8 % Normal 0.0-2.0 [facility] Comment on above: Performed By: #### H EMDF, CMP3, LIPA4 #### [facility] [address] [place] [address] Eosinophils (Bld) [#/Vol] 0.1 10*3/uL Normal 0.0-0.5 [facility] Comment on above: Performed By: #### H EMDF, CMP3, LIPA4 #### [facility] [address] [place] [address] Eosinophils/100 WBC (Bld) 1.2 % Normal 1.0-6.0 [facility] Comment on above: Performed By: #### H EMDF, CMP3, LIPA4 #### [facility] [address] [place] [address] Erythrocyte distribution width (RBC) [Ratio] 15.4 % High 11.5-14.5 [facility] Comment on above: Performed By: #### H EMDF, CMP3, LIPA4 #### [facility] [address] [place] [address] Granulocytes/100 WBC (Bld) 73.9 % Normal 40.0-80.0 [facility] Comment on above: Performed By: #### H EMDF, CMP3, LIPA4 #### [facility] [address] [place] [address] Hematocrit (Bld) [Volume fraction] 51.1 % Normal 40.0-52.0 [facility] Comment on above: Performed By: #### H EMDF, CMP3, LIPA4 #### [facility] [address] [place] [address] Hemoglobin (Bld) [Mass/Vol] 16.9 g/dL Normal 13.0-18.0 [facility] Comment on above: Performed By: #### H EMDF, CMP3, LIPA4 #### [facility] [address] [place] [address] Lymphocytes (Bld) [#/Vol] 1.7 10*3/uL Normal 1.0-4.3 [facility] Comment on above: Performed By: #### H EMDF, CMP3, LIPA4 #### [facility] [address] [place] [address] Lymphocytes/100 WBC (Bld) 16.5 % Low 20.0-40.0 [facility] Comment on above: Performed By: #### H EMDF, CMP3, LIPA4 #### [facility] [address] [place] [address] MCH (RBC) [Entitic mass] 29.3 pg Normal 26.0-34.0 [facility] Comment on above: Performed By: #### H EMDF, CMP3, LIPA4 #### [facility] [address] [place] [address] MCHC (RBC) [Mass/Vol] 33.0 % Normal 32.0-36.0 [facility] Comment on above: Performed By: #### H EMDF, CMP3, LIPA4 #### [facility] [address] [place] [address] MCV (RBC) [Entitic vol] 88.8 fL Normal 80.0-98.0 [facility] Comment on above: Performed By: #### H EMDF, CMP3, LIPA4 #### [facility] [address] [place] [address] Monocytes (Bld) [#/Vol] 0.8 10*3/uL Normal 0.0-0.8 [facility] Comment on above: Performed By: #### H EMDF, CMP3, LIPA4 #### [facility] [address] [place] [address] Monocytes/100 WBC (Bld) 7.6 % Normal 2.0-10.0 [facility] Comment on above: Performed By: #### H EMDF, CMP3, LIPA4 #### [facility] [address] [place] [address] Platelet mean volume (Bld) [Entitic vol] 8.7 fL Normal 7.4-10.4 [facility] Comment on above: Performed By: #### H EMDF, CMP3, LIPA4 #### [facility] [address] [place] [address] Platelets (Bld) [#/Vol] 334 10*3/uL Normal 140-440 [facility] Comment on above: Performed By: #### H EMDF, CMP3, LIPA4 #### [facility] [address] [place] [address] RBC (Bld) [#/Vol] 5.76 10*6/uL Normal 4.40-5.90 [facility] Comment on above: Performed By: #### H EMDF, CMP3, LIPA4 #### [facility] [address] [place] [address] WBC (Bld) [#/Vol] 10.5 10*3/uL Normal 3.6-10.7 [facility] Comment on above: Performed By: #### H EMDF, CMP3, LIPA4 #### [facility] [address] [place] [address] Lipaseon 10-21-2019 Lipase [Catalytic activity/Vol] 71 U/L Normal 23-300 [facility] Comment on above: Performed By: #### H EMDF, CMP3, LIPA4 #### [employer] [address] [place] [address] LipaseOrdered By: Winston hatch on 10-21-2019 Lipase [Catalytic activity/Vol] 71 U/L 23 - 300 U/L [employer] Work Phone: [phone] Panel InformationOrdered By: Winston Jefferson on 10-21-2019 Test Performed by [facility] [employer] [facility], [address] , [place] [address] [employer] Work Phone: [phone] UrinalysisOrdered By: Winston Jefferson on 10-21-2019 Appearance (U) Clear Clear NA [employer] Work Phone: [phone] Bilirubin Urine Negative Negative mg/dL [employer] Work Phone: [phone] Color (U) COLORLESS Lt. Yellow NA [employer] Work Phone: [phone] Glucose, Ur Normal Normal (<70) mg/dL [facility] Work Phone: [phone] Ketones Ql (U) Negative Negative mg/dL [facility] Work Phone: [phone] LEUKOCYTES, UA Negative Negative Serafin/uL [facility] Work Phone: [phone] Nitrite, Urine Negative Negative NA [employer] Work Phone: [phone] Occult Blood,Urine Negative Negative mg/dL [facility] Work Phone: [phone] pH (U) 7.5 [pH] [facility] Work Phone: [phone] Specific [place], Urine 1.008 [facility] Work Phone: [phone] Total Protein, Urine Negative Negativ e mg/dL [facility] Work Phone: [phone] Urobilinogen, Urine Normal Normal (0-1) mg/dL [facility] Work Phone: [phone] Test Performed by [employer], [address] , [place] [address] [employer] Work Phone: [phone] Comprehensive Metabolic Pane lOrdered By: Roberto Arcos on 10-19-2019 Albumin [Mass/Vol] 4.4 g/dL 3.5 - 5 g/dL [facility] Work Phone: [phone] ALP [Catalytic activity/Vol] 62 U/L 38 - 126 U/L [facility] Work Phone: [phone] ALT [Catalytic activity/Vol] 59 U/L 13 - 69 U/L [facility] Work Phone: [phone] Anion gap [Moles/Vol] 11 mmol/L [facility] Work Phone: [phone] AST [Catalytic activity/Vol] 41 U/L 15 - 46 U/L [facility] Work Phone: [phone] Bilirubin [Mass/Vol] 0.8 mg/dL 0.2 - 1 .3 mg/dL [facility] Work Phone: [phone] Calcium [Mass/Vol] 9.4 mg/dL 8.4 - 10. 4 mg/dL [facility] Work Phone: [phone] Chloride [Moles/Vol] 104 mmol/L 98 - 10 7 mmol/L [facility] Work Phone: [phone] CO2 [Moles/Vol] 22 mmol/L 22 - 30 mmol/L [facility] Work Phone: [phone] Creatinine [Mass/Vol] 0.75 mg/dL 0.52 - 1.25 mg/dL [facility] Work Phone: [phone] EGFR IF NonAfrican Panamanian >60.0 >60 mL/min [facility] Work Phone: [phone] Comment on above: Source- MDRD equatio n with creatinine calibration to IDMS(NKDEP) eGFR not recommended for drug dose adjustment GFR/1.73 sq M.predicted among blacks MDRD (S/P/Bld) [Vol rate/Area] mL/min/{1.73_m2} >60 mL/min [facility] Work Phone: [phone] Glucose [Mass/Vol] 85 mg/dL 70 - 100 mg/dL [facility] Work Phone: [phone] Potassium [Moles/Vol] 3.9 mmol/L 3.5 - 5.1 mmol/L [facility] Work Phone: [phone] Protein [Mass/Vol] 7.7 g/dL 6.3 - 8.2 g/dL [employer] Work Phone: [phone] Sodium [Moles/Vol] 138 mmol/L 135 - 145 mmol/L [facility] Work Phone: [phone] Urea nitrogen [Mass/Vol] 7 mg/dL 7 - 20 mg/dL [employer] Work Phone: [phone] Hemogram (CBC) w/Auto DiffOr dered By: Roberto Arcos on 10-19-2019 Absolute Baso # 0.0 10*3/uL 0 - 0.2 10*3/uL [employer] Work Phone: [phone] Absolute Neut # 4.1 10*3/uL 1.8 - 7 10*3/uL [employer] Work Phone: [phone] Basophils/100 WBC (Bld) 0.3 % 0 - 2 % [employer] Work Phone: ) [phone] Eosinophils (Bld) [#/Vol] 0.1 10*3/uL 0 - 0.5 10*3/uL [employer] Work Phone: ) 222 Eosinophils/100 WBC (Bld) 1.9 % 1 - 6 % [employer] Work Phone: [phone] Erythrocyte distribution width (RBC) [Ratio] 15.0 % High 11.5 - 14.5 % [employer] Work Phone: ) 222 Granulocytes/100 WBC (Bld) 69.1 % 40 - 80 % [employer] Work Phone: [phone] Hematocrit (Bld) [Volume fraction] 45.2 % 40 - 52 % [employer] Work Phone: ) 222 Hemoglobin (Bld) [Mass/Vol] 15.2 g/dL 13 - 18 g/dL [employer] Work Phone: [phone] Interpretation and review of laboratory results Abnormal [employer] Work Phone: ) 222 Lymphocytes (Bld) [#/Vol] 1.4 10*3/uL 1 - 4.3 10*3/uL [employer] Work Phone: ) 222 Lymphocytes/100 WBC (Bld) 22.9 % 20 - 40 % [employer] Work Phone: ) 222 MCH (RBC) [Entitic mass] 29.4 pg 26 - 34 pg [facility] Work Phone: [phone] MCHC 33.6 % 32 - 36 % [facility] Work Phone: [phone]() MCV (RBC) [Entitic vol] 87.6 fL 80 - 98 fL [facility] Work Phone: [phone] Monocytes (Bld) [#/Vol] 0.3 10*3/uL 0 - 0.8 10*3/uL [facility] Work Phone: [phone] 222 Monocytes/100 WBC (Bld) 5.8 % 2 - 10 % [facility] Work Phone: [phone] 222 Platelet mean volume (Bld) [Entitic vol] 8.5 fL 7.4 - 10.4 fL [facility] Work Phone: 1() Platelets (Bld) [#/Vol] 254 10*3/uL 140 - 440 10*3/uL [facility] Work Phone: 1() 222 RBC (Bld) [#/Vol] 5.16 10*6/uL 4.4 - 5.9 10*6/uL [facility] Work Phone: [phone] WBC (Bld) [#/Vol] 5.9 10*3/uL 3.6 - 10.7 10*3/uL [facility] Work Phone: 1() Test Performed by [employer], [facility] [place] [address] [facility] Work Phone: [phone] Lactic Acid, PlasmaOrdered B y: Roberto Arcos on 10-19-2019 Lactate [Moles/Vol] 1.2 mmol/L 0.7 - 2 mmol/L [facility] Work Phone: [phone] Test Performed by [employer], [facility] [place] [address] [facility] Work Phone: [phone]) LipaseOrdered By: Roberto alcantara on 10-19-2019 Lipase [Catalytic activity/Vol] 44 U/L 23 - 300 U/L [employer] Work Phone: [phone] Panel InformationOrdered By: Roberto Arcos on 10-19-2019 Test Performed by [employer] [facility], [facility] [place] [address] [facility] Work Phone: UrinalysisOrdered By: Roberto Arcos on 10-19-2019 Appearance (U) Clear Clear NA [facility] Work Phone: [phone] Bilirubin Urine Negative Negative mg/dL [facility] Work Phone: [phone] Color (U) Colorless Lt. Yellow NA [facility] Work Phone: [phone] Glucose, Ur Normal Normal (<70) mg/dL [facility] Work Phone: [phone] Ketones Ql (U) Negative Negative mg/dL [facility] Work Phone: [phone] LEUKOCYTES, UA Negative Negative Serafin/uL [facility] Work Phone: [phone] Nitrite, Urine Negative Negative NA [facility] Work Phone: [phone] Occult Blood,Urine Negative Negative mg/dL [facility] Work Phone: [phone] pH (U) 7.0 [pH] [facility] Work Phone: [phone] Specific [place], Urine 1.009 [facility] Work Phone: [phone] Total Protein, Urine Negative Negativ e mg/dL [facility] Work Phone: [phone] Urobilinogen, Urine Normal Normal (0-1) mg/dL [facility] Work Phone: [phone] Test Performed by [employer], [facility] [place] [address] [facility] Work Phone: [phone] Head WO ContrastOrdered Jimmy ibanez: Yulissa Mcmahon on 10-18-2019 Patient Name: RUTHIE CASTILLO ---CT--- Exam Date/Time 10/18/2019 20:18:[address] Head or Brain w/o Contrast Ordering Physician MD VINCENT, YULISSA Accession Number [id number] CPT4 Codes 92138 () Reason For Exam dizziness Report Examination: [...] KRIKOR Transcribed Date and Time: 10/18/2019 8:44 [facility] Work Phone: Juan, [facility] Incoming Radiology Results From [facility] - 10/18/2019 8:45 PM EST Patient Name: RUTHIE CASTILLO ---CT--- Exam Date/Time 10/18/2019 20:18:[address] Head or Brain w/o Contrast Ordering Physician MD VINCENT, YULISSA Accession Number [id number] CPT4 Codes 26621 () Reason For Exam dizziness Report Examination: [...] KRIKOR Transcribed Date and Time: 10/18/2019 8:44 [facility] Work Phone: CT Head or Brain w/o Contras ton 10-18-2019 CT Head or Brain w/o Contrast Patient Name: RUTHIE CASTILLO CT Exam Date/Time 10/18/2019 20:18:[address] Head or Brain w/o Contrast Ordering Physician MD VINCENT, YULISSA Accession Number [id number] CPT4 Codes 57015 () Reason For Exam dizziness Report Examination: [...] Transcribed Date and Time: 10/18/2019 8:44 Normal [facility] Comp Metabolic Panelon 10-18 ALP [Catalytic activity/Vol] 79 U/L Normal 38-126 [facility] Comment on above: Performed By: #### H EMDF, CMP3, LIPA4 #### [facility] [address] [place] [address] ALT [Catalytic activity/Vol] 70 U/L High 13-69 [facility] Comment on above: Performed By: #### H EMDF, CMP3, LIPA4 #### [facility] [address] [place] [address] Calcium [Mass/Vol] 9.3 mg/dL Normal 8.4-10.4 [facility] Comment on above: Performed By: #### H EMDF, CMP3, LIPA4 #### [facility] [address] [place] [address] Glucose [Mass/Vol] 144 mg/dL High 70-100 [facility] Comment on above: Performed By: #### H EMDF, CMP3, LIPA4 #### [facility] [address] [place] [address] Urea nitrogen [Mass/Vol] 8 mg/dL Normal 7-20 [facility] Comment on above: Performed By: #### H EMDF, CMP3, LIPA4 #### [facility] [address] [place] [address] Anion gap [Moles/Vol] 12 Normal [facility] Comment on above: Performed By: #### H EMDF, CMP3, LIPA4 #### [facility] [address] [place] [address] AST [Catalytic activity/Vol] 41 U/L Normal 15-46 [facility] Comment on above: Performed By: #### H EMDF, CMP3, LIPA4 #### [facility] [address] [place] [address] Bilirubin [Mass/Vol] 0.4 mg/dL Normal 0.2-1.3 [facility] Comment on above: Performed By: #### H EMDF, CMP3, LIPA4 #### [facility] [address] [place] [address] CO2 [Moles/Vol] 22 mmol/L Normal 22-30 [facility] Comment on above: Performed By: #### H EMDF, CMP3, LIPA4 #### [facility] [address] [place] [address] Creatinine [Mass/Vol] 0.77 mg/dL Normal 0.52-1.25 [facility] Comment on above: Performed By: #### H EMDF, CMP3, LIPA4 #### [facility] [address] [place] [address] GFR/1.73 sq M predicted among blacks MDRD (S/P/Bld) [Vol rate/Area] mL/min/{1.73_m2} Normal >60 [facility] Comment on above: Performed By: #### H EMDF, CMP3, LIPA4 #### [facility] [address] [place] [address] GFR/1.73 sq M predicted among non-blacks MDRD (S/P/Bld) [Vol rate/Area] mL/min/{1.73_m2} Normal >60 [facility] Comment on above: Result Comment: Sour ce- MDRD equation with creatinine calibration to IDMS(NKDEP) eGFR not recommended for drug dose adjustment Performed By: #### H STEVEN PEDRO3, LIPA4 #### [facility] [address] [place] [address] Protein [Mass/Vol] 7.3 g/dL Normal 6.3-8.2 [facility] Comment on above: Performed By: #### H STEVEN PEDRO3, LIPA4 #### [facility] [address] [place] [address] Chloride [Moles/Vol] 105 mmol/L Normal 98-107 [facility] Comment on above: Performed By: #### H STEVEN PEDRO3, LIPA4 #### [facility] [address] [place] [address] Potassium [Moles/Vol] 3.5 mmol/L Normal 3.5-5.1 [facility] Comment on above: Performed By: #### H STEVEN PEDRO3, LIPA4 #### [facility] [address] [place] [address] Sodium [Moles/Vol] 139 mmol/L Normal 135-145 [facility] Comment on above: Performed By: #### H WILLIS CMP3, LIPA4 #### [facility] [address] [place] [address] Albumin [Mass/Vol] 4.3 g/dL Normal 3.5-5.0 [facility] Comment on above: Performed By: #### H STEVEN PEDRO3, LIPA4 #### [facility] [address] [place] [address] Complete Urinalysison 2019 Appearance (U) Clear Normal Clear [facility] Comment on above: Performed By: #### H WILLIS CMP3, LIPA4 #### [facility] [address] [place] [address] Bilirubin,Urine Negative Normal Negative [facility] Comment on above: Performed By: #### H EMDF, CMP3, LIPA4 #### [facility] [address] [place] [address] Color (U) LIGHT YELLOW Normal Lt. Yellow [facility] Comment on above: Performed By: #### H EMDF, CMP3, LIPA4 #### [facility] [address] [place] [address] Glucose Ql (U) Normal Normal Normal (<70) [facility] Comment on above: Performed By: #### H EMDF, CMP3, LIPA4 #### [facility] [address] [place] [address] Ketone,Urine Negative Normal Negative [facility] Comment on above: Performed By: #### H EMDF, CMP3, LIPA4 #### [facility] [address] [place] [address] Leukocytes,Urine Negative Normal Negative [facility] Comment on above: Performed By: #### H EMDF, CMP3, LIPA4 #### [facility] [address] [place] [address] Nitrites,Urine Negative Normal Negative [facility] Comment on above: Performed By: #### H EMDF, CMP3, LIPA4 #### [facility] [address] [place] [address] Occult Blood,Urine Negative Normal Negative [facility] Comment on above: Performed By: #### H EMDF, CMP3, LIPA4 #### [facility] [address] [place] [address] pH (U) 6.0 Normal 5.0-8.0 [facility] Comment on above: Performed By: #### H EMDF, CMP3, LIPA4 #### [facility] [address] [place] [address] Protein (U) [Mass/Vol] Negative Normal Negative [facility] Comment on above: Performed By: #### H EMDF, CMP3, LIPA4 #### [facility] [address] [place] [address] Specific [place],Urine 1.007 Normal 1.005 -1.03 0 [facility] Comment on above: Performed By: #### H EMDF, CMP3, LIPA4 #### [facility] [address] [place] [address] Urobilinogen,Urine Normal Normal Normal (0-1) [facility] Comment on above: Performed By: #### H EMDF, CMP3, LIPA4 #### [facility] [address] [place] [address] Comprehensive Metabolic Pane lOrdered By: Perez Hernandez on 10-18-2019 Albumin [Mass/Vol] 4.3 g/dL 3.5 - 5 g/dL [facility] Work Phone: [phone] ALP [Catalytic activity/Vol] 79 U/L 38 - 126 U/L [facility] Work Phone: [phone] ALT [Catalytic activity/Vol] 70 U/L High 13 - 69 U/L [facility] Work Phone: [phone] Anion gap [Moles/Vol] 12 mmol/L [facility] Work Phone: [phone] AST [Catalytic activity/Vol] 41 U/L 15 - 46 U/L [facility] Work Phone: [phone] Bilirubin [Mass/Vol] 0.4 mg/dL 0.2 - 1 .3 mg/dL [facility] Work Phone: [phone] Calcium [Mass/Vol] 9.3 mg/dL 8.4 - 10. 4 mg/dL [facility] Work Phone: [phone] Chloride [Moles/Vol] 105 mmol/L 98 - 10 7 mmol/L [facility] Work Phone: [phone] CO2 [Moles/Vol] 22 mmol/L 22 - 30 mmol/L [facility] Work Phone: [phone] Creatinine [Mass/Vol] 0.77 mg/dL 0.52 - 1.25 mg/dL [facility] Work Phone: [phone] EGFR IF NonAfrican Panamanian >60.0 >60 mL/min [facility] Work Phone: [phone] Comment on above: Source- MDRD equatio n with creatinine calibration to IDMS(NKDEP) eGFR not recommended for drug dose adjustment GFR/1.73 sq M.predicted among blacks MDRD (S/P/Bld) [Vol rate/Area] mL/min/{1.73_m2} >60 mL/min [employer] Work Phone: Glucose [Mass/Vol] 144 mg/dL High 70 - 100 mg/dL [facility] Work Phone: Interpretation and review of laboratory results Abnormal [facility] Work Phone: [phone] Potassium [Moles/Vol] 3.5 mmol/L 3.5 - 5.1 mmol/L [facility] Work Phone: Protein [Mass/Vol] 7.3 g/dL 6.3 - 8.2 g/dL [facility] Work Phone: Sodium [Moles/Vol] 139 mmol/L 135 - 145 mmol/L [facility] Work Phone: Urea nitrogen [Mass/Vol] 8 mg/dL 7 - 20 mg/dL [facility] Work Phone: Hemogram (CBC) w/Auto DiffOr dered By: Perez Hernandez on 10-18-2019 Erythrocyte distribution width (RBC) [Ratio] 15.4 % High 11.5 - 14.5 % [facility] Work Phone: Hematocrit (Bld) [Volume fraction] 41.6 % 40 - 52 % [facility] Work Phone: Hemoglobin (Bld) [Mass/Vol] 14.7 g/dL 13 - 18 g/dL [facility] Work Phone: Interpretation and review of laboratory results Abnormal [facility] Work Phone: MCH (RBC) [Entitic mass] 30.9 pg 26 - 34 pg [facility] Work Phone: MCHC 35.4 % 32 - 36 % [facility] Work Phone: MCV (RBC) [Entitic vol] 87.5 fL 80 - 98 fL [facility] Work Phone: Platelet mean volume (Bld) [Entitic vol] 9.1 fL 7.4 - 10.4 fL [facility] Work Phone: Platelets (Bld) [#/Vol] 300 10*3/uL 140 - 440 10*3/uL [facility] Work Phone: [phone] RBC (Bld) [#/Vol] 4.75 10*6/uL 4.4 - 5.9 10*6/uL [facility] Work Phone: WBC (Bld) [#/Vol] 5.8 10*3/uL 3.6 - 10.7 10*3/uL [facility] Work Phone: Test Performed by [facility], [address] , [place], [place] [id number] [place] [address] Work Phone: Hemogram w/ [employer] 10-18 Erythrocyte distribution width (RBC) [Ratio] 15.4 % High 11.5-14.5 [facility] Comment on above: Performed By: #### H EMDF, CMP3, LIPA4 #### [facility] [address] [place] [address] Hematocrit (Bld) [Volume fraction] 41.6 % Normal 40.0-52.0 [facility] Comment on above: Performed By: #### H EMDF, CMP3, LIPA4 #### [facility] [address] [place] [address] Hemoglobin (Bld) [Mass/Vol] 14.7 g/dL Normal 13.0-18.0 [facility] Comment on above: Performed By: #### H EMDF, CMP3, LIPA4 #### [facility] [address] [place] [address] MCH (RBC) [Entitic mass] 30.9 pg Normal 26.0-34.0 [facility] Comment on above: Performed By: #### H EMDF, CMP3, LIPA4 #### [facility] [address] [place] [address] MCHC (RBC) [Mass/Vol] 35.4 % Normal 32.0-36.0 [facility] Comment on above: Performed By: #### H EMDF, CMP3, LIPA4 #### [facility] [address] [place] [address] MCV (RBC) [Entitic vol] 87.5 fL Normal 80.0-98.0 [facility] Comment on above: Performed By: #### H EMDF, CMP3, LIPA4 #### [facility] [address] [place] [address] Platelet mean volume (Bld) [Entitic vol] 9.1 fL Normal 7.4-10.4 [facility] Comment on above: Performed By: #### H EMDF, CMP3, LIPA4 #### [facility] [address] [place] [address] Platelets (Bld) [#/Vol] 300 10*3/uL Normal 140-440 [facility] Comment on above: Performed By: #### H EMDF, CMP3, LIPA4 #### [facility] [address] [place] [address] RBC (Bld) [#/Vol] 4.75 10*6/uL Normal 4.40-5.90 [facility] Comment on above: Performed By: #### H EMDF, CMP3, LIPA4 #### [facility] [address] [place] [address] WBC (Bld) [#/Vol] 5.8 10*3/uL Normal 3.6-10.7 [facility] Comment on above: Performed By: #### H EMDF, CMP3, LIPA4 #### [facility] [address] [place] [address] Lipaseon 10-18-2019 Lipase [Catalytic activity/Vol] 84 U/L Normal 23-300 [facility] Comment on above: Performed By: #### H EMDF, CMP3, LIPA4 #### [facility] [address] [place] [address] LipaseOrdered By: Perez Jackson ord on 10-18-2019 Lipase [Catalytic activity/Vol] 84 U/L 23 - 300 U/L [facility] Work Phone: Manual Diffon 10-18-2019 Abs Eosin Cnt 0.1 10*3/uL Normal 0.0-0.5 [facility] Comment on above: Performed By: #### H EMDF, CMP3, LIPA4 #### [facility] [address] [place] [address] Abs Lymph Cnt 1.8 10*3/uL Normal 1.1-4.5 [facility] Comment on above: Performed By: #### H EMDF, CMP3, LIPA4 #### [facility] [address] [place] [address] Abs Monocyte Cnt 0.3 10*3/uL Normal 0.2-1.1 [facility] Comment on above: Performed By: #### H EMDF, CMP3, LIPA4 #### [facility] [address] [place] [address] Abs Neutrophile Cnt 3.5 10*3/uL Normal 2.2-8.2 [facility] Comment on above: Performed By: #### H EMDF, CMP3, LIPA4 #### [facility] [address] [place] [address] Eosinophils 2 % Normal 1-6 [facility] Comment on above: Performed By: #### H EMDF, CMP3, LIPA4 #### [facility] [address] [place] [address] Lymphocytes 31 % Normal 20-40 [facility] Comment on above: Performed By: #### H EMDF, CMP3, LIPA4 #### [facility] [address] [place] [address] Monocytes 6 % Normal 2-10 [facility] Comment on above: Performed By: #### H EMDF, CMP3, LIPA4 #### [facility] [address] [place] [address] RBC morphology finding Nom (Bld) Normal Normal [facility] Comment on above: Performed By: #### H EMDF, CMP3, LIPA4 #### [facility] [address] [place] [address] Seg Neutrophils 61 % Normal 40-80 [facility] Comment on above: Performed By: #### H EMDF, CMP3, LIPA4 #### [facility] [address] [place] [address] Abs Baso Cnt 0.0 10*3/uL Normal 0.0-0.2 [facility] Comment on above: Performed By: #### H EMDF, CMP3, LIPA4 #### [facility] [address] [place] [address] Bands 0 % Normal 0-3 [facility] Comment on above: Performed By: #### H EMDF, CMP3, LIPA4 #### [facility] [address] [place] [address] Basophils 0 % Normal 0-2 [facility] Comment on above: Performed By: #### H EMDF, CMP3, LIPA4 #### [facility] [address] [place] [address] Cells counted 100 Normal [facility] Comment on above: Performed By: #### H EMDF, CMP3, LIPA4 #### [facility] [address] [place] [address] Manual DifferentialOrdered B y: Perez Hernandez on 10-18-2019 Absolute Baso # 0.0 10*3/uL 0 - 0.2 10*3/uL [facility] Work Phone: [phone] Absolute Eos # 0.1 10*3/uL 0 - 0.5 10*3/uL [facility] Work Phone: [phone] Absolute Lymph # 1.8 10*3/uL 1.1 - 4.5 10*3/uL [facility] Work Phone: [phone] Absolute [place] # 0.3 10*3/uL 0.2 - 1.1 10*3/uL [facility] Work Phone: [phone] Absolute Neut # 3.5 10*3/uL 2.2 - 8.2 10*3/uL [facility] Work Phone: [phone] Bands 0 % 0 - 3 % [facility] Work Phone: [phone] Basophils 0 % 0 - 2 % [facility] Work Phone: [phone] Eosinophils 2 % 1 - 6 % [facility] Work Phone: [phone] Lymphocytes 31 % 20 - 40 % [facility] Work Phone: [phone] Monocytes 6 % 2 - 10 % [facility] Work Phone: [phone] RBC Morphology Normal [facility] Work Phone: [phone] Seg Neutrophils 61 % 40 - 80 % [facility] Work Phone: [phone] TOTAL CELLS COUNTED 100 [facility] Work Phone: [phone] Test Performed by [facility] [employer], [address] , [place] [address] [employer] Work Phone: [phone] Panel InformationOrdered By: Perez Hernandez on 10-18-2019 Test Performed by [employer], [address] , [place] [address] [employer] Work Phone: [phone] UrinalysisOrdered By: Perez Hernandez on 10-18-2019 Appearance (U) Clear Clear NA [employer] Work Phone: [phone] Bilirubin Urine Negative Negative mg/dL [facility] Work Phone: [phone] Color (U) LIGHT YELLOW Lt. Yellow NA [employer] Work Phone: [phone] Glucose, Ur Normal Normal (<70) mg/dL [facility] Work Phone: [phone] Ketones Ql (U) Negative Negative mg/dL [facility] Work Phone: [phone] LEUKOCYTES, UA Negative Negative Serafin/uL [facility] Work Phone: [phone] Nitrite, Urine Negative Negative NA [facility] Work Phone: [phone] Occult Blood,Urine Negative Negative mg/dL [facility] Work Phone: [phone] pH (U) 6.0 [pH] [facility] Work Phone: [phone] Specific [place], Urine 1.007 [facility] Work Phone: [phone] Total Protein, Urine Negative Negativ e mg/dL [facility] Work Phone: [phone] Urobilinogen, Urine Normal Normal (0-1) mg/dL [facility] Work Phone: [phone] Test Performed by [employer], [address] , [place] [address] [facility] Work Phone: Basic Metabolic Panelon 09-30 Calcium [Mass/Vol] 9.7 mg/dL Normal 8.4-10.4 [facility] Comment on above: Performed By: #### B MP3, LFT3, LIPA4, HEMDF, MDIFF #### [facility] [address] [place] [address] Glucose [Mass/Vol] 112 mg/dL High 70-100 [facility] Comment on above: Performed By: #### B MP3, LFT3, LIPA4, HEMDF, MDIFF #### [facility] [address] [place] [address] Anion gap [Moles/Vol] 12 Normal [facility] Comment on above: Performed By: #### B MP3, LFT3, LIPA4, HEMDF, MDIFF #### [facility] [address] [place] [address] CO2 [Moles/Vol] 24 mmol/L Normal 22-30 [facility] Comment on above: Performed By: #### B MP3, LFT3, LIPA4, HEMDF, MDIFF #### [facility] [address] [place] [address] Creatinine [Mass/Vol] 0.74 mg/dL Normal 0.52-1.25 [facility] Comment on above: Performed By: #### B MP3, LFT3, LIPA4, HEMDF, MDIFF #### [facility] [address] [place] [address] GFR/1.73 sq M predicted among blacks MDRD (S/P/Bld) [Vol rate/Area] mL/min/{1.73_m2} Normal >60 [facility] Comment on above: Performed By: #### B MP3, LFT3, LIPA4, HEMDF, MDIFF #### [facility] [address] [place] [address] GFR/1.73 sq M predicted among non-blacks MDRD (S/P/Bld) [Vol rate/Area] mL/min/{1.73_m2} Normal >60 [facility] Comment on above: Result Comment: Sour ce- MDRD equation with creatinine calibration to IDMS(NKDEP) eGFR not recommended for drug dose adjustment Performed By: #### B MP3, LFT3, LIPA4, MD NARCISOIFF #### [facility] [address] [place] [address] Urea nitrogen [Mass/Vol] 10 mg/dL Normal 7-20 [facility] Comment on above: Performed By: #### B MP3, LFT3, LIPA4, HEMANGELICA, MDIFF #### [facility] [address] [place] [address] Potassium [Moles/Vol] 3.7 mmol/L Normal 3.5-5.1 [facility] Comment on above: Performed By: #### B MP3, LFT3, LIPA4, HEMANGELICA, MDIFF #### [facility] [address] [place] [address] Sodium [Moles/Vol] 139 mmol/L Normal 135-145 [facility] Comment on above: Performed By: #### B MP3, LFT3, LIPA4, HEMANGELICA, MDIFF #### [facility] [address] [place] [address] Chloride [Moles/Vol] 103 mmol/L Normal 98-107 [facility] Comment on above: Performed By: #### B MP3, LFT3, LIPA4, HEMANGELICA, MDIFF #### [facility] [address] [place] [address] Basic Metabolic PanelOrdered By: Ranulfo Hermosillo on 10-17-2019 Anion gap [Moles/Vol] 12 mmol/L [facility] Work Phone: Calcium [Mass/Vol] 9.7 mg/dL 8.4 - 10. 4 mg/dL [facility] Work Phone: Chloride [Moles/Vol] 103 mmol/L 98 - 10 7 mmol/L [facility] Work Phone: CO2 [Moles/Vol] 24 mmol/L 22 - 30 mmol/L [facility] Work Phone: Creatinine [Mass/Vol] 0.74 mg/dL 0.52 - 1.25 mg/dL [facility] Work Phone: EGFR IF NonAfrican Panamanian >60.0 >60 mL/min [facility] Work Phone: Comment [...] Onl Ordering Physician RANULFO HERMOSILLO Accession Number [id number] CPT4 Codes 28799 (CT Abdomen/Pelvis w/ IV Contrast (IV Onl), Q9967 (CT ISOVUE 370MG/ML&[id number]&ML&1) Reason For Exam right lower abdominal pain, [...] Time: 10/17/2019 6:03 [facility] Work Phone: Juan, [facility] Incoming [facility] Results From [facility] - 10/17/2019 6:03 PM EST Patient Name: RUTHIE CASTILLO ---CT--- Exam Date/Time 10/17/2019 17:56:[address] Abdomen/Pelvis w/ IV Contrast (IV Onl Ordering Physician RANULFO HERMOSILLO Accession Number [id number] CPT4 Codes 01440 (CT Abdomen/Pelvis w/ IV Contrast (IV Onl), Q9967 (CT ISOVUE 370MG/[id number]) Reason For Exam right lower abdominal pain, [...] Onl Ordering Physician RANULFO HERMOSILLO Accession Number [id number] CPT4 Codes 32454 (CT Abdomen/Pelvis w/ IV Contrast (IV Onl), Q9967 (CT ISOVUE 370MG/[id number]) Reason For Exam right lower abdominal pain, [...] Transcribed Date and Time: 10/17/2019 6:03 Normal [facility] Complete Urinalysison 2019 Appearance (U) Clear Normal Clear [facility] Comment on above: Performed By: #### H EMDF, CMP3, LIPA4 #### [facility] [address] [place] [address] Bacteria LM.HPF (Urine sed) [#/Area] Few (1-5) Normal Negative [facility] Comment on above: Performed By: #### H EMDF, CMP3, LIPA4 #### [facility] [address] [place] [address] Bilirubin,Urine Negative Normal Negative [facility] Comment on above: Performed By: #### H EMDF, CMP3, LIPA4 #### [facility] [address] [place] [address] Color (U) Yellow Normal Lt. Yellow [facility] Comment on above: Performed By: #### H EMDF, CMP3, LIPA4 #### [facility] [address] [place] [address] Glucose Ql (U) Normal Normal Normal (<70) [facility] Comment on above: Performed By: #### H EMDF, CMP3, LIPA4 #### [facility] [address] [place] [address] Ketone,Urine Negative Normal Negative [facility] Comment on above: Performed By: #### H EMDF, CMP3, LIPA4 #### [facility] [address] [place] [address] Leukocytes,Urine Negative Normal Negative [facility] Comment on above: Performed By: #### H EMDF, CMP3, LIPA4 #### [facility] [address] [place] [address] Mucous Threads Few Normal Negative [facility] Comment on above: Performed By: #### H EMDF, CMP3, LIPA4 #### [facility] [address] [place] [address] Nitrites,Urine Negative Normal Negative [facility] Comment on above: Performed By: #### H EMDF, CMP3, LIPA4 #### [facility] [address] [place] [address] Occult Blood,Urine Negative Normal Negative [facility] Comment on above: Performed By: #### H EMDF, CMP3, LIPA4 #### [facility] [address] [place] [address] pH (U) 6.5 Normal 5.0-8.0 [facility] Comment on above: Performed By: #### H EMDF, CMP3, LIPA4 #### [facility] [address] [place] [address] Protein (U) [Mass/Vol] 20 mg/dL Normal Negative [facility] Comment on above: Performed By: #### H EMDF, CMP3, LIPA4 #### [facility] [address] [place] [address] RBC LM.HPF (Urine sed) [#/Area] 0 - 2 Normal 0-2 [facility] Comment on above: Performed By: #### H EMDF, CMP3, LIPA4 #### [facility] [address] [place] [address] Specific [place],Urine > 1.030 Normal 1.005 -1.03 0 [facility] Comment on above: Performed By: #### H EMDF, CMP3, LIPA4 #### [facility] [address] [place] [address] Squamous Epithelial 0 - 2 Normal 3-5 [facility] Comment on above: Performed By: #### H EMDF, CMP3, LIPA4 #### [facility] [address] [place] [address] Urobilinogen,Urine 2 mg/dL Normal Normal (0-1) [facility] Comment on above: Performed By: #### H EMDF, CMP3, LIPA4 #### [facility] [address] [place] [address] VOLUME, URINE 12 ml Normal [facility] Comment on above: Performed By: #### H EMDF, CMP3, LIPA4 #### [facility] [address] [place] [address] WBC LM.HPF (Urine sed) [#/Area] 0 - 2 Normal 0-5 [facility] Comment on above: Performed By: #### H EMDF, CMP3, LIPA4 #### [facility] [address] [place] [address] Hemogram (CBC) w/Auto DiffOr dered By: Ranulfo Hermosillo on 10-17-2019 Erythrocyte distribution width (RBC) [Ratio] 15.4 % High 11.5 - 14.5 % [facility] Work Phone: Hematocrit (Bld) [Volume fraction] 47.0 % 40 - 52 % [facility] Work Phone: Hemoglobin (Bld) [Mass/Vol] 16.2 g/dL 13 - 18 g/dL [facility] Work Phone: Interpretation and review of laboratory results Abnormal [facility] Work Phone: [phone] MCH (RBC) [Entitic mass] 29.9 pg 26 - 34 pg [employer] Work Phone: [phone] MCHC 34.5 % 32 - 36 % [facility] Work Phone: [phone] MCV (RBC) [Entitic vol] 86.5 fL 80 - 98 fL [facility] Work Phone: [phone] Platelet mean volume (Bld) [Entitic vol] 8.6 fL 7.4 - 10.4 fL [facility] Work Phone: [phone] Platelets (Bld) [#/Vol] 311 10*3/uL 140 - 440 10*3/uL [employer] Work Phone: [phone] RBC (Bld) [#/Vol] 5.43 10*6/uL 4.4 - 5.9 10*6/uL [facility] Work Phone: [phone] WBC (Bld) [#/Vol] 7.2 10*3/uL 3.6 - 10.7 10*3/uL [employer] Work Phone: Hemogram w/ [employer]od[employer] 10-17 Erythrocyte distribution width (RBC) [Ratio] 15.4 % High 11.5-14.5 [facility] Comment on above: Performed By: #### B MP3, LFT3, LIPA4, MD NARCISOIFF #### [facility] [employer] [address] [place] [address] Hematocrit (Bld) [Volume fraction] 47.0 % Normal 40.0-52.0 [facility] Comment on above: Performed By: #### B MP3, LFT3, LIPA4, GEE STUART #### [facility] [address] [place] [address] Hemoglobin (Bld) [Mass/Vol] 16.2 g/dL Normal 13.0-18.0 [facility] Comment on above: Performed By: #### B MP3, LFT3, LIPA4, HEMDF, MDIFF #### [facility] [address] [place] [address] MCH (RBC) [Entitic mass] 29.9 pg Normal 26.0-34.0 [facility] Comment on above: Performed By: #### B MP3, LFT3, LIPA4, HEMDF, MDIFF #### [facility] [address] [place] [address] MCHC (RBC) [Mass/Vol] 34.5 % Normal 32.0-36.0 [facility] Comment on above: Performed By: #### B MP3, LFT3, LIPA4, HEMDF, MDIFF #### [facility] [address] [place] [address] MCV (RBC) [Entitic vol] 86.5 fL Normal 80.0-98.0 [facility] Comment on above: Performed By: #### B MP3, LFT3, LIPA4, HEMDF, MDIFF #### [facility] [address] [place] [address] Platelet mean volume (Bld) [Entitic vol] 8.6 fL Normal 7.4-10.4 [facility] Comment on above: Performed By: #### B MP3, LFT3, LIPA4, HEMDF, MDIFF #### [facility] [address] [place] [address] Platelets (Bld) [#/Vol] 311 10*3/uL Normal 140-440 [facility] Comment on above: Performed By: #### B MP3, LFT3, LIPA4, HEMDF, MDIFF #### [facility] [address] [place] [address] RBC (Bld) [#/Vol] 5.43 10*6/uL Normal 4.40-5.90 [facility] Comment on above: Performed By: #### B MP3, LFT3, LIPA4, HEMDF, MDIFF #### [facility] [address] [place] [address] WBC (Bld) [#/Vol] 7.2 10*3/uL Normal 3.6-10.7 [facility] Comment on above: Performed By: #### B MP3, LFT3, LIPA4, HEMDF, MDIFF #### [facility] [address] [place] [address] Hepatic Functionon 0 ALP [Catalytic activity/Vol] 59 U/L Normal 38-126 [facility] Comment on above: Performed By: #### B MP3, LFT3, LIPA4, HEMDF, MDIFF #### [facility] [address] [place] [address] ALT [Catalytic activity/Vol] 80 U/L High 13-69 [facility] Comment on above: Performed By: #### B MP3, LFT3, LIPA4, HEMDF, MDIFF #### [facility] [address] [place] [address] AST [Catalytic activity/Vol] 54 U/L High 15-46 [facility] Comment on above: Performed By: #### B MP3, LFT3, LIPA4, HEMDF, MDIFF #### [facility] [address] [place] [address] Bilirubin [Mass/Vol] 0.8 mg/dL Normal 0.2-1.3 [facility] Comment on above: Performed By: #### B MP3, LFT3, LIPA4, HEMDF, MDIFF #### [facility] [address] [place] [address] Bilirubin.direct [Mass/Vol] 0.0 mg/dL Normal 0.0-0.3 [facility] Comment on above: Performed By: #### B MP3, LFT3, LIPA4, HEMDF, MDIFF #### [facility] [address] [place] [address] Protein [Mass/Vol] 8.2 g/dL Normal 6.3-8.2 [facility] Comment on above: Performed By: #### B MP3, LFT3, LIPA4, HEMDF, MDIFF #### [facility] [address] [place] [address] Albumin [Mass/Vol] 4.9 g/dL Normal 3.5-5.0 [facility] Comment on above: Performed By: #### B MP3, LFT3, LIPA4, HEMDF, MDIFF #### [facility] [address] [place] [address] Hepatic Function PanelOrdere d By: Ranulfo Hermosillo on 10-17-2019 Albumin [Mass/Vol] 4.9 g/dL 3.5 - 5 g/dL [facility] Work Phone: [phone] ALP [Catalytic activity/Vol] 59 U/L 38 - 126 U/L [facility] Work Phone: [phone] ALT [Catalytic activity/Vol] 80 U/L High 13 - 69 U/L [facility] Work Phone: [phone] AST [Catalytic activity/Vol] 54 U/L High 15 - 46 U/L [facility] Work Phone: [phone] Bilirubin [Mass/Vol] 0.8 mg/dL 0.2 - 1 .3 mg/dL [facility] Work Phone: [phone] Bilirubin.indirect [Mass/Vol] 0.0 mg/dL 0 - 0.3 mg/dL [facility] Work Phone: [phone] Protein [Mass/Vol] 8.2 g/dL 6.3 - 8.2 g/dL [facility] Work Phone: [phone] Lipaseon 10-17-2019 Lipase [Catalytic activity/Vol] 78 U/L Normal 23-300 [facility] Comment on above: Performed By: #### B MP3, LFT3, LIPA4, HEMDF, MDIFF #### [facility] [address] [place] [address] LipaseOrdered By: Ranulfo brice on 10-17-2019 Lipase [Catalytic activity/Vol] 78 U/L 23 - 300 U/L [facility] Work Phone: [phone] Manual Diffon 10-17-2019 Abs Baso Cnt 0.0 10*3/uL Normal 0.0-0.2 [facility] Comment on above: Performed By: #### H EMDF, CMP3, LIPA4 #### [facility] [address] [place] [address] Abs Eosin Cnt 0.1 10*3/uL Normal 0.0-0.5 [facility] Comment on above: Performed By: #### H EMDF, CMP3, LIPA4 #### [facility] [address] [place] [address] Abs Lymph Cnt 1.8 10*3/uL Normal 1.1-4.5 [facility] Comment on above: Performed By: #### H EMDF, CMP3, LIPA4 #### [facility] [address] [place] [address] Abs Monocyte Cnt 0.4 10*3/uL Normal 0.2-1.1 [facility] Comment on above: Performed By: #### H EMDF, CMP3, LIPA4 #### [facility] [address] [place] [address] Abs Neutrophile Cnt 5.0 10*3/uL Normal 2.2-8.2 [facility] Comment on above: Performed By: #### H EMDF, CMP3, LIPA4 #### [facility] [address] [place] [address] Bands 0 % Normal 0-3 [facility] Comment on above: Performed By: #### H EMDF, CMP3, LIPA4 #### [facility] [address] [place] [address] Basophils 0 % Normal 0-2 [facility] Comment on above: Performed By: #### H EMDF, CMP3, LIPA4 #### [facility] [address] [place] [address] Cells counted 100 Normal [facility] Comment on above: Performed By: #### H EMDF, CMP3, LIPA4 #### [facility] [address] [place] [address] Eosinophils 1 % Normal 1-6 [facility] Comment on above: Performed By: #### H EMDF, CMP3, LIPA4 #### [facility] [address] [place] [address] Lymphocytes 25 % Normal 20-40 [facility] Comment on above: Performed By: #### H EMDF, CMP3, LIPA4 #### [facility] [address] [place] [address] Monocytes 5 % Normal 2-10 [facility] Comment on above: Performed By: #### H EMDF, CMP3, LIPA4 #### [facility] [address] [place] [address] RBC morphology finding Nom (Bld) Normal Normal [facility] Comment on above: Performed By: #### H EMDF, CMP3, LIPA4 #### [facility] [address] [place] [address] Seg Neutrophils 69 % Normal 40-80 [facility] Comment on above: Performed By: #### H EMDF, CMP3, LIPA4 #### [facility] [address] [place] [address] Manual DifferentialOrdered B y: Ranulfo Hermosillo on 10-17-2019 Absolute Baso # 0.0 10*3/uL 0 - 0.2 10*3/uL [employer] Work Phone: [phone] Absolute Eos # 0.1 10*3/uL 0 - 0.5 10*3/uL [facility] Work Phone: [phone] Absolute Lymph # 1.8 10*3/uL 1.1 - 4.5 10*3/uL [facility] Work Phone: [phone] Absolute [place] # 0.4 10*3/uL 0.2 - 1.1 10*3/uL [facility] Work Phone: [phone] Absolute Neut # 5.0 10*3/uL 2.2 - 8.2 10*3/uL [facility] Work Phone: [phone] Bands 0 % 0 - 3 % [facility] Work Phone: [phone] Basophils 0 % 0 - 2 % [facility] Work Phone: [phone] Eosinophils 1 % 1 - 6 % [facility] Work Phone: [phone] Lymphocytes 25 % 20 - 40 % [facility] Work Phone: [phone] Monocytes 5 % 2 - 10 % [facility] Work Phone: [phone] RBC Morphology Normal [facility] Work Phone: [phone] Seg Neutrophils 69 % 40 - 80 % [facility] Work Phone: [phone] TOTAL CELLS COUNTED 100 [facility] Work Phone: [phone] Panel InformationOrdered By: Ranulfo Hermosillo on 10-17-2019 Test Performed by [facility] [employer] [facility], [address] , [place], [place] [address] [facility] Work Phone: [phone] Interpretation and review of laboratory results Abnormal [facility] Work Phone: () Test Performed by [employer], [address] [place], [place] [address] [facility] Work Phone: [phone] UrinalysisOrdered By: Ranulfo Hermosillo on 10-17-2019 Appearance (U) Clear Clear NA [employer] Work Phone: () [phone] Bacteria, UA Few (1-5) Negative /[HPF] [facility] Work Phone: () [phone] Bilirubin Urine Negative Negative mg/dL [facility] Work Phone: [phone] Color (U) Yellow Lt. Yellow NA [employer] Work Phone: () [phone] Glucose, Ur Normal Normal (<70) mg/dL [facility] Work Phone: [phone] Ketones Ql (U) Negative Negative mg/dL [facility] Work Phone: () [phone] LEUKOCYTES, UA Negative Negative Serafin/uL [facility] Work Phone: [phone] Mucous Threads Few Negative /[LPF] [facility] Work Phone: () [phone] Nitrite, Urine Negative Negative NA [facility] Work Phone: () [phone] Occult Blood,Urine Negative Negative mg/dL [facility] Work Phone: [phone] pH (U) 6.5 [pH] [facility] Work Phone: [phone] Protein (U) [Mass/Vol] 20 mg/dL Negative [employer] Work Phone: () [phone] RBC, UA 0-2 0 - 2 /[HPF] [facility] Work Phone: [phone] Specific [place], Urine >1.030 [facility] Work Phone: () [phone] Squam Epithel, UA 0-2 3 - 5 /[HPF] [facility] Work Phone: [phone] Urobilinogen, Urine 2 mg/dL Normal (0-1) [facility] Work Phone: [phone] Volume 12 ml [facility] Work Phone: WBC, UA 0-2 0 - 5 /[HPF] [facility] Work Phone: Test Performed by [facility], [address] , [address] Work Phone: [phone] CR Chest PA/LATon 08-17-2019 CR Chest PA/LAT Patient Name: RUTHIE CASTILLO Diagnostic Radiology Exam Date/Time 08/17/2019 11:28:11 EST Exam CR Chest PA/LAT Ordering Physician BENEDICT SCOTT Accession Number [id number] CPT4 Codes 91270 () Reason For Exam cough Report Chest [...] Transcribed Date and Time: 08/17/2019 11:43 Normal [facility] CT Abdomen Pelvis W Contrast on 08-17-2019 Juan, [facility] Incoming Radiology [facility] - 08/17/2019 12:19 PM EST Patient Name: RUTHIE CASTILLO ---CT--- Exam Date/Time 08/17/2019 12:06:[address] Abdomen/Pelvis w/ IV Contrast (IV Onl Ordering Physician BENEDICT SCOTT Accession Number [id number] CPT4 Codes 26749 (CT Abdomen/Pelvis w/ IV Contrast (IV Onl), Q9967 (CT ISOVUE 370MG/[id number]&ML&[id number]) Reason For Exam abdominal pain Report CT [...] RISA Transcribed Date and Time: 08/17/2019 12:19 [place], [place] Patient Name: RUTHIE CASTILLO ---CT--- Exam Date/Time 08/17/2019 12:06:[address] Abdomen/Pelvis w/ IV Contrast (IV Onl Ordering Physician BENEDICT SCOTT Accession Number [id number] CPT4 Codes 13019 (CT Abdomen/Pelvis w/ IV Contrast (IV Onl), Q9967 (CT ISOVUE 370MG/ML&[id number]&ML&1) Reason For Exam abdominal pain Report CT [...] RISA Transcribed Date and Time: 08/17/2019 12:19 [place], [place] CT Abdomen/Pelvis w/ Contras ton 08-17-2019 CT Abdomen/Pelvis w/ Contrast Patient Name: RUTHIE CASTILLO CT Exam Date/Time 08/17/2019 12:06:[address] Abdomen/Pelvis w/ IV Contrast (IV Onl Ordering Physician BENEDICT SCOTT Accession Number [id number] CPT4 Codes 40267 (CT Abdomen/Pelvis w/ IV Contrast (IV Onl), Q9967 (CT ISOVUE 370MG/[id number] and1) Reason For Exam abdominal pain Report CT [...] RISA Transcribed Date and Time: 08/17/2019 12:19 Normal [facility] Comp Metabolic Panelon 08-17 ALP [Catalytic activity/Vol] 69 U/L Normal 38-126 [facility] Comment on above: Performed By: #### H EMDF, CMP3, LIPA4 #### [facility] [address] [place] [address] ALT [Catalytic activity/Vol] 73 U/L High 13-69 [facility] Comment on above: Performed By: #### H EMDF, CMP3, LIPA4 #### [facility] [address] [place] [address] AST [Catalytic activity/Vol] 48 U/L High 15-46 [facility] Comment on above: Performed By: #### H EMDF, CMP3, LIPA4 #### [facility] [address] [place] [address] Bilirubin [Mass/Vol] 0.7 mg/dL Normal 0.2-1.3 [facility] Comment on above: Performed By: #### H EMDF, CMP3, LIPA4 #### [facility] [address] [place] [address] Calcium [Mass/Vol] 9.5 mg/dL Normal 8.4-10.4 [facility] Comment on above: Performed By: #### H EMDF, CMP3, LIPA4 #### [facility] [address] [place] [address] Glucose [Mass/Vol] 83 mg/dL Normal 70-100 [facility] Comment on above: Performed By: #### H EMDF, CMP3, LIPA4 #### [facility] [address] [place] [address] Protein [Mass/Vol] 8.1 g/dL Normal 6.3-8.2 [facility] Comment on above: Performed By: #### H EMDF, CMP3, LIPA4 #### [facility] [address] [place] [address] Urea nitrogen [Mass/Vol] 15 mg/dL Normal 7-20 [facility] Comment on above: Performed By: #### H EMDF, CMP3, LIPA4 #### [facility] [address] [place] [address] Anion gap [Moles/Vol] 15 Normal [facility] Comment on above: Performed By: #### H EMDF, CMP3, LIPA4 #### [facility] [address] [place] [address] CO2 [Moles/Vol] 22 mmol/L Normal 22-30 [facility] Comment on above: Performed By: #### H EMDF, CMP3, LIPA4 #### [facility] [address] [place] [address] Creatinine [Mass/Vol] 0.89 mg/dL Normal 0.52-1.25 [facility] Comment on above: Performed By: #### H STEVEN PEDRO3, LIPA4 #### [facility] [address] [place] [address] GFR/1.73 sq M predicted among blacks MDRD (S/P/Bld) [Vol rate/Area] mL/min/{1.73_m2} Normal >60 [facility] Comment on above: Performed By: #### H WILLIS, CMP3, LIPA4 #### [facility] [address] [place] [address] GFR/1.73 sq M predicted among non-blacks MDRD (S/P/Bld) [Vol rate/Area] mL/min/{1.73_m2} Normal >60 [facility] Comment on above: Result Comment: Sour ce- MDRD equation with creatinine calibration to IDMS(NKDEP) eGFR not recommended for drug dose adjustment Performed By: #### H WILLIS CMP3, LIPA4 #### [facility] [address] [place] [address] Albumin [Mass/Vol] 4.7 g/dL Normal 3.5-5.0 [facility] Comment on above: Performed By: #### H WILLIS, CMP3, LIPA4 #### [facility] [address] [place] [address] Potassium [Moles/Vol] 3.4 mmol/L Low 3.5-5.1 [facility] Comment on above: Performed By: #### H WILLIS, CMP3, LIPA4 #### [facility] [address] [place] [address] Sodium [Moles/Vol] 140 mmol/L Normal 135-145 [facility] Comment on above: Performed By: #### H WILLIS, CMP3, LIPA4 #### [facility] [address] [place] [address] Chloride [Moles/Vol] 102 mmol/L Normal 98-107 [facility] Comment on above: Performed By: #### H WILLIS, CMP3, LIPA4 #### [facility] [address] [place] [address] Complete Urinalysison 2018 RBC LM.HPF (Urine sed) [#/Area] Negative Normal 0-2 [facility] Comment on above: Performed By: #### C UA2 #### [facility] [address] [place] [address] Squamous Epithelial 0 - 2 Normal 3-5 [facility] Comment on above: Performed By: #### C UA2 #### [facility] [address] [place] [address] VOLUME, URINE 12 ml Normal [facility] Comment on above: Performed By: #### C UA2 #### [facility] [address] [place] [address] WBC LM.HPF (Urine sed) [#/Area] 0 - 2 Normal 0-5 [facility] Comment on above: Performed By: #### C UA2 #### [facility] [address] [place] [address] Appearance (U) Clear Normal Clear [facility] Comment on above: Performed By: #### C UA2 #### [facility] [address] [place] [address] Bilirubin,Urine Negative Normal Negative [facility] Comment on above: Performed By: #### C UA2 #### [facility] [address] [place] [address] Color (U) YELLOW Normal Lt. Yellow [facility] Comment on above: Performed By: #### C UA2 #### [facility] [address] [place] [address] Glucose Ql (U) Normal Normal Normal (<70) [facility] Comment on above: Performed By: #### C UA2 #### [facility] [address] [place] [address] Ketone,Urine Negative Normal Negative [facility] Comment on above: Performed By: #### C UA2 #### [facility] [address] [place] [address] Leukocytes,Urine Negative Normal Negative [facility] Comment on above: Performed By: #### C UA2 #### [facility] [address] [place] [address] Nitrites,Urine Negative Normal Negative [facility] Comment on above: Performed By: #### C UA2 #### [facility] [address] [place] [address] Occult Blood,Urine Negative Normal Negative [facility] Comment on above: Performed By: #### C UA2 #### [facility] [address] [place] [address] pH (U) 7.0 Normal 5.0-8.0 [facility] Comment on above: Performed By: #### C UA2 #### [facility] [address] [place] [address] Protein (U) [Mass/Vol] 10 mg/dL Normal Negative [facility] Comment on above: Performed By: #### C UA2 #### [facility] [address] [place] [address] Specific [place],Urine > 1.030 Normal 1.005 -1.03 0 [facility] Comment on above: Performed By: #### C UA2 #### [facility] [address] [place] [address] Urobilinogen,Urine Normal Normal Normal (0-1) [facility] Comment on above: Performed By: #### C UA2 #### [facility] [address] [place] [address] Comprehensive Metabolic Pane [facility] 08-17-2019 Albumin [Mass/Vol] 4.7 g/dL 3.5 - 5 g/dL [place] ALP [Catalytic activity/Vol] 69 U/L 38 - 126 U/L [place] ALT [Catalytic activity/Vol] 73 U/L High 13 - 69 U/L [place] Anion gap [Moles/Vol] 15 mmol/L [place], [place] AST [Catalytic activity/Vol] 48 U/L High 15 - 46 U/L [place] Bilirubin Ql (U) 0.7 mg/dL 0.2 - 1.3 mg/dL [place] Calcium [Mass/Vol] 9.5 mg/dL 8.4 - 10. 4 mg/dL [place] Chloride [Moles/Vol] 102 mmol/L 98 - 10 7 mmol/L [place] CO2 [Moles/Vol] 22 mmol/L 22 - 30 mmol/L [place] Creatinine [Mass/Vol] 0.89 mg/dL 0.52 - 1.25 mg/dL [place] EGFR IF NonAfrican Panamanian >60.0 >60 mL/min [place] Comment on above: Source- MDRD equatio n with creatinine calibration to IDMS(NKDEP) eGFR not recommended for drug dose adjustment GFR/1.73 sq M predicted among blacks MDRD (S/P/Bld) [Vol rate/Area] mL/min/{1.73_m2} >60 mL/min [place] Glucose [Mass/Vol] 83 mg/dL 70 - 100 mg/dL [place] Interpretation and review of laboratory results Abnormal [place] Potassium [Moles/Vol] 3.4 mmol/L Low 3.5 - 5.1 mmol/L [place] Protein [Mass/Vol] 8.1 g/dL 6.3 - 8.2 g/dL [place] Sodium [Moles/Vol] 140 mmol/L 135 - 145 mmol/L [place] Urea nitrogen [Mass/Vol] 15 mg/dL 7 - 20 mg/dL [place] Hemogram (CBC) w/Auto Diffon 08-17-2019 Absolute Baso # 0.0 10*3/uL 0 - 0.2 10*3/uL [place] Absolute Neut # 7.3 10*3/uL High 1.8 - 7 10*3/uL [place] Basophils/100 WBC (Bld) 0.4 % 0 - 2 % [place] Eosinophils (Bld) [#/Vol] 0.1 10*3/uL 0 - 0.5 10*3/uL [place] Eosinophils/100 WBC (Bld) 1.2 % 1 - 6 % [place] Erythrocyte distribution width (RBC) [Ratio] 14.4 % 11.5 - 14.5 % [place] Granulocytes/100 WBC (Bld) 69.1 % 40 - 80 % [place] Hematocrit (Bld) [Volume fraction] 47.4 % 40 - 52 % [place] Hemoglobin (Bld) [Mass/Vol] 16.3 g/dL 13 - 18 g/dL [place] Interpretation and review of laboratory results Abnormal [place] Lymphocytes (Bld) [#/Vol] 2.2 10*3/uL 1 - 4.3 10*3/uL [place] Lymphocytes/100 WBC (Bld) 20.6 % 20 - 40 % [place] MCH (RBC) [Entitic mass] 29.4 pg 26 - 34 pg [place] MCHC (RBC) [Mass/Vol] 34.5 % 32 - 36 % [place] MCV (RBC) [Entitic vol] 85.3 fL 80 - 98 fL [place] Monocytes (Bld) [#/Vol] 0.9 10*3/uL High 0 - 0.8 10*3/uL [place] Monocytes/100 WBC (Bld) 8.7 % 2 - 10 % [place] Platelet mean volume (Bld) [Entitic vol] 8.2 fL 7.4 - 10.4 fL [place] Platelets (Bld) [#/Vol] 282 10*3/uL 140 - 440 10*3/uL [place] RBC (Bld) [#/Vol] 5.56 10*6/uL 4.4 - 5.9 10*6/uL [place] WBC (Bld) [#/Vol] 10.6 10*3/uL 3.6 - 10.7 10*3/uL [place] Test Performed by [facility], [address] , [address] Hemogram w/ Autodiffon 11-18 -2019 Abs Baso Cnt 0.0 10*3/uL Normal 0.0-0.2 [facility] Comment on above: Performed By: #### H EMDF, CMP3, LIPA4 #### [facility] [address] [place] [address] Abs Neutrophile Cnt 7.3 10*3/uL High 1.8-7.0 [facility] Comment on above: Performed By: #### H EMDF, CMP3, LIPA4 #### [facility] [address] [place] [address] Basophils/100 WBC (Bld) 0.4 % Normal 0.0-2.0 [facility] Comment on above: Performed By: #### H EMDF, CMP3, LIPA4 #### [facility] [address] [place] [address] Eosinophils (Bld) [#/Vol] 0.1 10*3/uL Normal 0.0-0.5 [facility] Comment on above: Performed By: #### H EMDF, CMP3, LIPA4 #### [facility] [address] [place] [address] Eosinophils/100 WBC (Bld) 1.2 % Normal 1.0-6.0 [facility] Comment on above: Performed By: #### H EMDF, CMP3, LIPA4 #### [facility] [address] [place] [address] Erythrocyte distribution width (RBC) [Ratio] 14.4 % Normal 11.5-14.5 [facility] Comment on above: Performed By: #### H EMDF, CMP3, LIPA4 #### [facility] [address] [place] [address] Granulocytes/100 WBC (Bld) 69.1 % Normal 40.0-80.0 [facility] Comment on above: Performed By: #### H EMDF, CMP3, LIPA4 #### [facility] [address] [place] [address] Hematocrit (Bld) [Volume fraction] 47.4 % Normal 40.0-52.0 [facility] Comment on above: Performed By: #### H EMDF, CMP3, LIPA4 #### [facility] [address] [place] [address] Hemoglobin (Bld) [Mass/Vol] 16.3 g/dL Normal 13.0-18.0 [facility] Comment on above: Performed By: #### H EMDF, CMP3, LIPA4 #### [facility] [address] [place] [address] Lymphocytes (Bld) [#/Vol] 2.2 10*3/uL Normal 1.0-4.3 [facility] Comment on above: Performed By: #### H EMDF, CMP3, LIPA4 #### [facility] [address] [place] [address] Lymphocytes/100 WBC (Bld) 20.6 % Normal 20.0-40.0 [facility] Comment on above: Performed By: #### H EMDF, CMP3, LIPA4 #### [address] [place] [address] MCH (RBC) [Entitic mass] 29.4 pg Normal 26.0-34.0 [facility] Comment on above: Performed By: #### H EMDF, CMP3, LIPA4 #### [address] [place] [address] MCHC (RBC) [Mass/Vol] 34.5 % Normal 32.0-36.0 [facility] Comment on above: Performed By: #### H EMDF, CMP3, LIPA4 #### [facility] [address] [place] [address] MCV (RBC) [Entitic vol] 85.3 fL Normal 80.0-98.0 [facility] Comment on above: Performed By: #### H EMDF, CMP3, LIPA4 #### [address] [place] [address] Monocytes (Bld) [#/Vol] 0.9 10*3/uL High 0.0-0.8 [facility] Comment on above: Performed By: #### H EMDF, CMP3, LIPA4 #### [address] [place] [address] Monocytes/100 WBC (Bld) 8.7 % Normal 2.0-10.0 [facility] Comment on above: Performed By: #### H EMDF, CMP3, LIPA4 #### [facility] [address] [place] [address] Platelet mean volume (Bld) [Entitic vol] 8.2 fL Normal 7.4-10.4 [facility] Comment on above: Performed By: #### H EMDF, CMP3, LIPA4 #### [facility] [address] [place] [address] Platelets (Bld) [#/Vol] 282 10*3/uL Normal 140-440 [facility] Comment on above: Performed By: #### H EMDF, CMP3, LIPA4 #### [facility] [address] [place] [address] RBC (Bld) [#/Vol] 5.56 10*6/uL Normal 4.40-5.90 [facility] Comment on above: Performed By: #### H EMDF, CMP3, LIPA4 #### [facility] [address] [place] [address] WBC (Bld) [#/Vol] 10.6 10*3/uL Normal 3.6-10.7 [facility] Comment on above: Performed By: #### H EMDF, CMP3, LIPA4 #### [facility] [address] [place] [address] Lipaseon 08-17-2019 Lipase [Catalytic activity/Vol] 122 U/L Normal 23-300 [facility] Comment on above: Performed By: #### H EMDF, CMP3, LIPA4 #### [facility] [address] [place] [address] Lipase [Catalytic activity/Vol] 122 U/L 23 - 300 U/L [facility], [place] Otheron 08-17-2019 Test Performed by [facility], [address] , [place], [place] [address] [facility], [place] Urinalysison 08-17-2019 Appearance (U) Clear Clear NA [place] Bilirubin Urine Negative Negative mg/dL [place] Color (U) YELLOW Lt. Yellow NA [place] Glucose, Ur Normal Normal (<70) mg/dL [place] Ketones Ql (U) Negative Negative mg/dL [place] LEUKOCYTES, UA Negative Negative Serafin/uL [place] Nitrite, Urine Negative Negative NA [place] Occult Blood,Urine Negative Negative mg/dL [place] pH (U) 7.0 [pH] [place] Protein (U) [Mass/Vol] 10 mg/dL Negative [place] RBC (U) [#/Vol] Negative 0 - 2 /[HPF] [place] Specific [place], Urine >1.030 [place] Squam Epithel, UA 0-2 3 - 5 /[HPF] [place] Urobilinogen, Urine Normal Normal (0-1) mg/dL [place] Volume 12 ml [place] WBC, UA 0-2 0 - 5 /[HPF] [place] Test Performed by [facility], [address] [place] [address] XR CHEST STANDARD (2 VW)on 10-17-2018 Juan, [facility] Incoming Radiology Results From [facility] - 08/17/2019 11:48 AM EST Patient Name: RUTHIE CASTILLO ---Diagnostic Radiology--- Exam Date/Time 08/17/2019 11:28:11 EST Exam CR Chest PA/LAT Ordering Physician BENEDICT SCOTT Accession Number [id number] CPT4 Codes 18982 () Reason For Exam cough Report Chest [...] RISA Transcribed Date and Time: 08/17/2019 11:43 [place] Patient Name: RUTHIE CASTILLO ---Diagnostic Radiology--- Exam Date/Time 08/17/2019 11:28:11 EST Exam CR Chest PA/LAT Ordering Physician BENEDICT SCOTT Accession Number [id number] CPT4 Codes 20645 () Reason For Exam cough Report Chest [...] RISA Transcribed Date and Time: 08/17/2019 11:43 [place] C-Reactive Proteinon 019 CRP [Mass/Vol] 6.8 mg/L High 0 - 6 mg/L [place] Comment on above: . Interpretation and review of laboratory results Abnormal [place] CBC Auto Differentialon Absolute Baso # 0.0 10*3/uL 0 - 0.2 10*3/uL [place] Absolute Neut # 12.4 10*3/uL High 1.8 - 7 10*3/uL [place] Basophils/100 WBC (Bld) 0.3 % 0 - 2 % [place] Eosinophils (Bld) [#/Vol] 0.0 10*3/uL 0 - 0.5 10*3/uL [place] Eosinophils/100 WBC (Bld) 0.2 % Low 1 - 6 % [place] Erythrocyte distribution width (RBC) [Ratio] 14.2 % 11.5 - 14.5 % [place] Granulocytes/100 WBC (Bld) 78.2 % 40 - 80 % [place] Hematocrit (Bld) [Volume fraction] 44.8 % 40 - 52 % [place] Hemoglobin (Bld) [Mass/Vol] 15.0 g/dL 13 - 18 g/dL [place] Interpretation and review of laboratory results Abnormal [place] Lymphocytes (Bld) [#/Vol] 2.6 10*3/uL 1 - 4.3 10*3/uL [place] Lymphocytes/100 WBC (Bld) 16.1 % Low 20 - 40 % [place] MCH (RBC) [Entitic mass] 29.3 pg 26 - 34 pg [place] MCHC (RBC) [Mass/Vol] 33.5 % 32 - 36 % [place] MCV (RBC) [Entitic vol] 87.3 fL 80 - 98 fL [place] Monocytes (Bld) [#/Vol] 0.8 10*3/uL 0 - 0.8 10*3/uL [place] Monocytes/100 WBC (Bld) 5.2 % 2 - 10 % [place] Platelet mean volume (Bld) [Entitic vol] 8.7 fL 7.4 - 10.4 fL [place] Platelets (Bld) [#/Vol] 275 10*3/uL 140 - 440 10*3/uL [place] RBC (Bld) [#/Vol] 5.13 10*6/uL 4.4 - 5.9 10*6/uL [place] WBC (Bld) [#/Vol] 15.8 10*3/uL High 3.6 - 10.7 10*3/uL [place] Test Performed by [facility], [address] [place] [address] [place] Comprehensive Metabolic Pane deja 08-07-2019 Albumin [Mass/Vol] 4.2 g/dL 3.5 - 5 g/dL [place] ALP [Catalytic activity/Vol] 59 U/L 38 - 126 U/L [place] ALT [Catalytic activity/Vol] 46 U/L 13 - 69 U/L [place] Anion gap [Moles/Vol] 8 mmol/L [place] AST [Catalytic activity/Vol] 29 U/L 15 - 46 U/L [place] Bilirubin Ql (U) 0.9 mg/dL 0.2 - 1.3 mg/dL [place] Calcium [Mass/Vol] 9.6 mg/dL 8.4 - 10. 4 mg/dL [place] Chloride [Moles/Vol] 107 mmol/L 98 - 10 7 mmol/L [place] CO2 [Moles/Vol] 26 mmol/L 22 - 30 mmol/L [place] Creatinine [Mass/Vol] 0.89 mg/dL 0.52 - 1.25 mg/dL [place] EGFR IF NonAfrican Panamanian >60.0 >60 mL/min [place] Comment on above: Source- MDRD equatio n with creatinine calibration to IDMS(NKDEP) eGFR not recommended for drug dose adjustment GFR/1.73 sq M predicted among blacks MDRD (S/P/Bld) [Vol rate/Area] mL/min/{1.73_m2} >60 mL/min [place] Glucose [Mass/Vol] 97 mg/dL 70 - 100 mg/dL [place] Potassium [Moles/Vol] 4.1 mmol/L 3.5 - 5.1 mmol/L [place] Protein [Mass/Vol] 7.8 g/dL 6.3 - 8.2 g/dL [place] Sodium [Moles/Vol] 141 mmol/L 135 - 145 mmol/L [place] Urea nitrogen [Mass/Vol] 16 mg/dL 7 - 20 mg/dL [place] Otheron 08-07-2019 Test Performed by [facility], [address] [place] [address] [place] Sedimentation Rateon 019 Interpretation and review of laboratory results Abnormal [place] Sed Rate 27 mm/h High 0 - 10 mm/h [place] Test Performed by [facility], [address] [place] [address] [place] C-Reactive Proteinon 019 CRP [Mass/Vol] 7 mg/L High 0 - 6 mg/L [place] Comment on above: . CBC Auto Differentialon Absolute Baso # 0.1 10*3/uL 0 - 0.2 10*3/uL [place] Absolute Neut # 14.9 10*3/uL High 1.8 - 7 10*3/uL [place] Basophils/100 WBC (Bld) 0.4 % 0 - 2 % [place] Eosinophils (Bld) [#/Vol] 0.0 10*3/uL 0 - 0.5 10*3/uL [place] Eosinophils/100 WBC (Bld) 0.0 % Low 1 - 6 % [place] Erythrocyte distribution width (RBC) [Ratio] 14.5 % 11.5 - 14.5 % [place] Granulocytes/100 WBC (Bld) 93.6 % High 40 - 80 % [place] Hematocrit (Bld) [Volume fraction] 49.0 % 40 - 52 % [place] Hemoglobin (Bld) [Mass/Vol] 16.0 g/dL 13 - 18 g/dL [place] Interpretation and review of laboratory results Abnormal [place] Lymphocytes (Bld) [#/Vol] 0.9 10*3/uL Low 1 - 4.3 10*3/uL [place] Lymphocytes/100 WBC (Bld) 5.4 % Low 20 - 40 % [place] MCH (RBC) [Entitic mass] 28.7 pg 26 - 34 pg [place] MCHC (RBC) [Mass/Vol] 32.7 % 32 - 36 % [place] MCV (RBC) [Entitic vol] 88.0 fL 80 - 98 fL [place] Monocytes (Bld) [#/Vol] 0.1 10*3/uL 0 - 0.8 10*3/uL [place] Monocytes/100 WBC (Bld) 0.6 % Low 2 - 10 % [place] Platelet mean volume (Bld) [Entitic vol] 9.2 fL 7.4 - 10.4 fL [place] Platelets (Bld) [#/Vol] 282 10*3/uL 140 - 440 10*3/uL [place] RBC (Bld) [#/Vol] 5.57 10*6/uL 4.4 - 5.9 10*6/uL [place] WBC (Bld) [#/Vol] 16.0 10*3/uL High 3.6 - 10.7 10*3/uL [place] Test Performed by [facility], [address] [place] [id number] [place], [place] Comprehensive Metabolic Pane l w/ Reflex to MGon 08-06-2019 Albumin [Mass/Vol] 4.7 g/dL 3.5 - 5 g/dL [place] ALP [Catalytic activity/Vol] 71 U/L 38 - 126 U/L [place] ALT [Catalytic activity/Vol] 49 U/L 13 - 69 U/L [place] Anion gap [Moles/Vol] 14 mmol/L [place], [place] AST [Catalytic activity/Vol] 36 U/L 15 - 46 U/L [place] Bilirubin Ql (U) 1.1 mg/dL 0.2 - 1.3 mg/dL [place] Calcium [Mass/Vol] 10.0 mg/dL 8.4 - 10. 4 mg/dL [place] Chloride [Moles/Vol] 103 mmol/L 98 - 10 7 mmol/L [place] CO2 [Moles/Vol] 20 mmol/L Low 22 - 30 mmol/L [place] Creatinine [Mass/Vol] 0.77 mg/dL 0.52 - 1.25 mg/dL [place] EGFR IF NonAfrican [place]ian >60.0 >60 mL/min [place] Comment on above: Source- MDRD equatio n with creatinine calibration to IDMS(NKDEP) eGFR not recommended for drug dose adjustment GFR/1.73 sq M predicted among blacks MDRD (S/P/Bld) [Vol rate/Area] mL/min/{1.73_m2} >60 mL/min [place] Glucose [Mass/Vol] 143 mg/dL High 70 - 100 mg/dL [place] Potassium [Moles/Vol] 4.4 mmol/L 3.5 - 5.1 mmol/L [place] Protein [Mass/Vol] 8.9 g/dL High 6.3 - 8.2 g/dL [place] Sodium [Moles/Vol] 137 mmol/L 135 - 145 mmol/L [place] Urea nitrogen [Mass/Vol] 14 mg/dL 7 - 20 mg/dL [place] Otheron 08-06-2019 Interpretation and review of laboratory results Abnormal [place] Test Performed by [address] [address] [place] Sedimentation Rateon 019 Interpretation and review of laboratory results Abnormal [place] Sed Rate 39 mm/h High 0 - 10 mm/h [place] Test Performed by [facility], [address] [place] [id number] [place] CBC auto differentialon 07-02 Absolute Baso # 0.0 10*3/uL 0 - 0.2 10*3/uL [place] Absolute Neut # 15.0 10*3/uL High 1.8 - 7 10*3/uL [place] Basophils/100 WBC (Bld) 0.2 % 0 - 2 % [place] Eosinophils (Bld) [#/Vol] 0.0 10*3/uL 0 - 0.5 10*3/uL [place] Eosinophils/100 WBC (Bld) 0.0 % Low 1 - 6 % [place] Erythrocyte distribution width (RBC) [Ratio] 14.0 % 11.5 - 14.5 % [place] Granulocytes/100 WBC (Bld) 93.4 % High 40 - 80 % [place] Hematocrit (Bld) [Volume fraction] 45.5 % 40 - 52 % [place] Hemoglobin (Bld) [Mass/Vol] 15.0 g/dL 13 - 18 g/dL [place] Interpretation and review of laboratory results Abnormal [place] Lymphocytes (Bld) [#/Vol] 0.7 10*3/uL Low 1 - 4.3 10*3/uL [place] Lymphocytes/100 WBC (Bld) 4.4 % Low 20 - 40 % [place] MCH (RBC) [Entitic mass] 28.9 pg 26 - 34 pg [place] MCHC (RBC) [Mass/Vol] 33.0 % 32 - 36 % [place] MCV (RBC) [Entitic vol] 87.6 fL 80 - 98 fL [place] Monocytes (Bld) [#/Vol] 0.3 10*3/uL 0 - 0.8 10*3/uL [place] Monocytes/100 WBC (Bld) 2.0 % 2 - 10 % [place] Platelet mean volume (Bld) [Entitic vol] 9.2 fL 7.4 - 10.4 fL [place] Platelets (Bld) [#/Vol] 301 10*3/uL 140 - 440 10*3/uL [place] RBC (Bld) [#/Vol] 5.19 10*6/uL 4.4 - 5.9 10*6/uL [place] WBC (Bld) [#/Vol] 16.1 10*3/uL High 3.6 - 10.7 10*3/uL [place] Test Performed by [facility], [address] [place] [address] [place] Comprehensive Metabolic Pane l w/ Reflex to MGon 07-29-2019 Albumin [Mass/Vol] 4.3 g/dL 3.5 - 5 g/dL [place] ALP [Catalytic activity/Vol] 65 U/L 38 - 126 U/L [place] ALT [Catalytic activity/Vol] 35 U/L 13 - 69 U/L [place] Anion gap [Moles/Vol] 9 mmol/L [place] AST [Catalytic activity/Vol] 23 U/L 15 - 46 U/L [place] Bilirubin Ql (U) 0.7 mg/dL 0.2 - 1.3 mg/dL [place] Calcium [Mass/Vol] 9.6 mg/dL 8.4 - 10. 4 mg/dL [place] Chloride [Moles/Vol] 106 mmol/L 98 - 10 7 mmol/L [place] CO2 [Moles/Vol] 24 mmol/L 22 - 30 mmol/L [place] Creatinine [Mass/Vol] 0.78 mg/dL 0.52 - 1.25 mg/dL [place] EGFR IF NonAfrican [place]amanian >60.0 >60 mL/min [place] Comment on above: Source- MDRD equatio n with creatinine calibration to IDMS(NKDEP) eGFR not recommended for drug dose adjustment GFR/1.73 sq M predicted among blacks MDRD (S/P/Bld) [Vol rate/Area] mL/min/{1.73_m2} >60 mL/min [place] Glucose [Mass/Vol] 144 mg/dL High 70 - 100 mg/dL [place] Interpretation and review of laboratory results Abnormal [place] Potassium [Moles/Vol] 3.9 mmol/L 3.5 - 5.1 mmol/L [place] Protein [Mass/Vol] 7.9 g/dL 6.3 - 8.2 g/dL [place] Sodium [Moles/Vol] 139 mmol/L 135 - 145 mmol/L [place] Urea nitrogen [Mass/Vol] 12 mg/dL 7 - 20 mg/dL [place] Test Performed by [address] [address] [place] C. difficile toxin Molecular on 07-28-2019 CLOSTRIDIUM DIFFICILE NEGATIVE Methodology - Real Time PCR ([place]) Clinical judgement must be used when interpreting results. Positive results may reflect colonization. Indeterminate results suggest a new specimen be submitted. [place] Test Performed by [facility], [address] [place] [id number] [place] CBC auto differentialon 07-01 Absolute Baso # 0.0 10*3/uL 0 - 0.2 10*3/uL [place] Absolute Neut # 8.9 10*3/uL High 1.8 - 7 10*3/uL [place] Basophils/100 WBC (Bld) 0.3 % 0 - 2 % [place] Eosinophils (Bld) [#/Vol] 0.0 10*3/uL 0 - 0.5 10*3/uL [place] Eosinophils/100 WBC (Bld) 0.0 % Low 1 - 6 % [place] Erythrocyte distribution width (RBC) [Ratio] 14.2 % 11.5 - 14.5 % [place] Granulocytes/100 WBC (Bld) 89.8 % High 40 - 80 % [place] Hematocrit (Bld) [Volume fraction] 44.4 % 40 - 52 % [place] Hemoglobin (Bld) [Mass/Vol] 15.1 g/dL 13 - 18 g/dL [place] Interpretation and review of laboratory results Abnormal [place] Lymphocytes (Bld) [#/Vol] 0.7 10*3/uL Low 1 - 4.3 10*3/uL [place] Lymphocytes/100 WBC (Bld) 7.4 % Low 20 - 40 % [place] MCH (RBC) [Entitic mass] 29.7 pg 26 - 34 pg [place] MCHC (RBC) [Mass/Vol] 34.1 % 32 - 36 % [place] MCV (RBC) [Entitic vol] 87.2 fL 80 - 98 fL [place] Monocytes (Bld) [#/Vol] 0.2 10*3/uL 0 - 0.8 10*3/uL [place] Monocytes/100 WBC (Bld) 2.5 % 2 - 10 % [place] Platelet mean volume (Bld) [Entitic vol] 9.2 fL 7.4 - 10.4 fL [place] Platelets (Bld) [#/Vol] 263 10*3/uL 140 - 440 10*3/uL [place] RBC (Bld) [#/Vol] 5.09 10*6/uL 4.4 - 5.9 10*6/uL [place] WBC (Bld) [#/Vol] 9.9 10*3/uL 3.6 - 10.7 10*3/uL [place] Test Performed by [facility], [address] [place] [id number] [place] Comprehensive Metabolic Pane l w/ Reflex to MGon 07-28-2019 Albumin [Mass/Vol] 4.1 g/dL 3.5 - 5 g/dL [place] ALP [Catalytic activity/Vol] 61 U/L 38 - 126 U/L [place] ALT [Catalytic activity/Vol] 31 U/L 13 - 69 U/L [place] Anion gap [Moles/Vol] 8 mmol/L [place] AST [Catalytic activity/Vol] 27 U/L 15 - 46 U/L [place] Bilirubin Ql (U) 0.8 mg/dL 0.2 - 1.3 mg/dL [place] Calcium [Mass/Vol] 9.2 mg/dL 8.4 - 10. 4 mg/dL [place] Chloride [Moles/Vol] 106 mmol/L 98 - 10 7 mmol/L [place] CO2 [Moles/Vol] 25 mmol/L 22 - 30 mmol/L [place] Creatinine [Mass/Vol] 0.77 mg/dL 0.52 - 1.25 mg/dL [place] EGFR IF NonAfrican [place]ian >60.0 >60 mL/min [place] Comment on above: Source- MDRD equatio n with creatinine calibration to IDMS(NKDEP) eGFR not recommended for drug dose adjustment GFR/1.73 sq M predicted among blacks MDRD (S/P/Bld) [Vol rate/Area] mL/min/{1.73_m2} >60 mL/min [place] Glucose [Mass/Vol] 143 mg/dL High 70 - 100 mg/dL [place] Interpretation and review of laboratory results Abnormal [place] Potassium [Moles/Vol] 4.0 mmol/L 3.5 - 5.1 mmol/L [place] Protein [Mass/Vol] 7.6 g/dL 6.3 - 8.2 g/dL [place] Sodium [Moles/Vol] 139 mmol/L 135 - 145 mmol/L [place] Urea nitrogen [Mass/Vol] 14 mg/dL 7 - 20 mg/dL [place] Test Performed by [id number] [place] [address] ALLIED HEALTHon 07-27-2019 ALLIED [facility]ALTH HNO ID: [id number] Author: Mari Maxwell (Rt) Service: ? Author Type: College Advisor Type: Allied Health Filed: 07/27/2019 2:40 PM [...] RT Alissa July 27, 2019 2:[address] [facility] CBC and Differentialon 07-27 Abs Baso 0.03 k/uL Normal <0.11 [facility] Comment on above: Performed By: #### C BCDIF, CMP #### [facility] [address] [address] Abs [place] 0.66 k/uL Normal <0.87 [facility] Comment on above: Performed By: #### C BCDIF, CMP #### [facility] [address] [address] Abs Neut 6.92 k/uL Normal 1.45-7.50 [facility] Comment on above: Performed By: #### C BCDIF, CMP #### [facility] [address] [place] [address] Basophils/100 WBC (Bld) 0.3 % Normal [facility] Comment on above: Performed By: #### C BCDIF, CMP #### [facility] [address] [place] [address] Eosinophils (Bld) [#/Vol] 0.16 10*3/uL Normal <0.46 [facility] Comment on above: Performed By: #### C BCDIF, CMP #### [facility] [address] [place] [address] Eosinophils/100 WBC (Bld) 1.5 % Normal [facility] Comment on above: Performed By: #### C BCDIF, CMP #### [facility] [address] [place] [address] Erythrocyte distribution width (RBC) [Ratio] 14.4 % Normal 11.5-15.0 [facility] Comment on above: Performed By: #### C BCDIF, CMP #### [facility] [address] [place] [address] Hematocrit (Bld) [Volume fraction] 46.2 % Normal 39.0-51.0 [facility] Comment on above: Performed By: #### C BCDIF, CMP #### [facility] [address] [place] [address] Hemoglobin (Bld) [Mass/Vol] 15.0 g/dL Normal 13.0-17.0 [facility] Comment on above: Performed By: #### C BCDIF, CMP #### [facility] [address] Lymphocytes (Bld) [#/Vol] 2.87 10*3/uL Normal 1.00-4.00 [facility] Comment on above: Performed By: #### C BCFREDERIC CMP #### [facility] [address] Lymphocytes/100 WBC (Bld) 27.0 % Normal [facility] Comment on above: Performed By: #### C BCFREDERIC, CMP #### [facility] [address] [address] MCH (RBC) [Entitic mass] 28.7 pG Normal 26.0-34.0 [facility] Comment on above: Performed By: #### C REBA CMP #### [facility] [address] [address] MCHC (RBC) [Mass/Vol] 32.5 g/dL Normal 30.5-36.0 [facility] Comment on above: Performed By: #### C BCFREDERIC, CMP #### [facility] [address] [place] [address] MCV (RBC) [Entitic vol] 88.5 fL Normal 80.0-100.0 [facility] Comment on above: Performed By: #### C BCFREDERIC CMP #### [facility] [address] [place] [address] Monocytes/100 WBC (Bld) 6.2 % Normal [facility] Comment on above: Performed By: #### C BCFREDERIC, CMP #### [facility] [address] [place], [place] [phone] Neutrophils/100 WBC (Bld) 65.0 % Normal [facility] Comment on above: Performed By: #### C BCKWABENAF, CMP #### [facility] [address] [place], [place] [phone] Platelet mean volume (Bld) [Entitic vol] 10.9 fL Normal 9.0-12.7 [facility] Comment on above: Performed By: #### C BCDIF, CMP #### [facility] [address] [address] Platelets (Bld) [#/Vol] 268 10*3/uL Normal 150-400 [facility] Comment on above: Performed By: #### C BCDIF, CMP #### [facility] [address] [address] RBC (Bld) [#/Vol] 5.22 10*6/uL Normal 4.20-6.00 [facility] Comment on above: Performed By: #### C BCDIF, CMP #### [facility] [address] [address] WBC (Bld) [#/Vol] 10.64 10*3/uL Normal 3.70-11.00 [facility] Comment on above: Performed By: #### C BCDIF, CMP #### [facility] [address] [place] [address] Comp Metabolic Panelon 07-27 Albumin [Mass/Vol] 4.1 g/dL Normal 3.9-4.9 [facility] Comment on above: Performed By: #### C BCDIF, CMP #### [facility] [address] [place] [address] ALP [Catalytic activity/Vol] 66 U/L Normal 38-113 [facility] Comment on above: Performed By: #### C BCDIF, CMP #### [facility] [address] [place] [address] ALT [Catalytic activity/Vol] 27 U/L Normal 10-54 [facility] Comment on above: Performed By: #### C BCDIF, CMP #### [facility] [address] [place] [address] Anion gap [Moles/Vol] 13 mmol/L Normal 9-18 [facility] Comment on above: Performed By: #### C BCDIF, CMP #### [facility] [address] [address] AST [Catalytic activity/Vol] 18 U/L Normal 14-40 [facility] Comment on above: Performed By: #### C BCDIF, CMP #### [facility] [address] [place] [address] Bilirubin [Mass/Vol] 0.4 mg/dL Normal 0.2-1.3 [facility] Comment on above: Performed By: #### C BCDIF, CMP #### [facility] [address] [phone] Calcium [Mass/Vol] 8.9 mg/dL Normal 8.5-10.2 [facility] Comment on above: Performed By: #### C BCDIF, CMP #### [facility] [address] [phone] Chloride [Moles/Vol] 104 mmol/L Normal 97-105 [facility] Comment on above: Performed By: #### C BCDIF, CMP #### [facility] [address] [phone] CO2 [Moles/Vol] 26 mmol/L Normal 22-30 [facility] Comment on above: Performed By: #### C BCDIF, CMP #### [facility] [address] Creatinine [Mass/Vol] 0.88 mg/dL Normal 0.73-1.22 [facility] Comment on above: Performed By: #### C BCDIF, CMP #### [facility] [address] eGFR- Amer. >60 Normal [facility] Comment on above: Performed By: #### C BCDIF, CMP #### [facility] [address] [place], [place] [phone] GFR/1.73 sq M predicted among non-blacks MDRD (S/P/Bld) [Vol rate/Area] mL/min/{1.73_m2} Normal [facility] Comment on above: Result Comment: [...] reflect actual GFR. Performed By: #### C BCDIF, CMP #### [facility] [address] [phone] Glucose [Mass/Vol] 83 mg/dL Normal 74-99 [facility] Comment on above: Result Comment: The [place] Diabetes Association (ADA) provides guidance for cutoff [...] Standards of Medical Care in Diabetes 2016, [place] [employer] Association. Diabetes Care. 2016.39(Suppl 1). Performed By: #### C BCDIF, CMP #### [facility] [address] [place] [address] Potassium [Moles/Vol] 3.2 mmol/L Low 3.7-5.1 [facility] Comment on above: Performed By: #### C BCDIF, CMP #### [facility] [address] [place] [address] Protein [Mass/Vol] 6.9 g/dL Normal 6.3-8.0 [facility] Comment on above: Performed By: #### C BCDIF, CMP #### [facility] [address] [place] [address] Sodium [Moles/Vol] 143 mmol/L Normal 136-144 [facility] Comment on above: Performed By: #### C BCDIF, CMP #### [facility] [address] [place] [address] Urea nitrogen [Mass/Vol] 14 mg/dL Normal 9-24 [facility] Comment on above: Performed By: #### C BCDIF, CMP #### [facility] [address] [place] [address] ED NOTEon 07-27-2019 ED NOTE HNO ID: [id number] Author: Britni (Rn) JUANA Buckley Service: ? Author Type: Registered Nurse Type: ED Notes Filed: 07/27/2019 3:26 PM Note Text: Diagnosis Crohns/Colitis. No signs of respiratory or cardiac distress at this time. Skin warm, dry and acyanotic. Pt. stable. Pt. agreeable to transfer and understands reason for admission to [facility] 742-A. Report given to JUANA Haley. [facility] ED NOTE HNO ID: [id number] Author: Britni (Rn) JUANA Buckley Service: ? Author Type: Registered Nurse Type: ED Notes Filed: 07/27/2019 2:13 PM Note Text: Pt to XR via wheelchair [facility] ED NOTE HNO ID: [id number] Author: Britni (Rn) JUANA Buckley Service: ? Author Type: Registered Nurse Type: ED Notes Filed: 07/27/2019 2:01 PM Note Text: Assumed care of patient. Pt. comes to ED for abd pain with diarrhea. C/O hx of crohns disease, last flare up x 5 months ago. Pt to ED with 4-5 episodes of diarrhea/day since last week. Pt recently admitted to [place] for Crohns flare but left AMA for [...] light within reach, ID, allergy band on. [facility] ED NOTE HNO ID: [id number] Author: Arcelia NavasRn) JUANA Borges Service: ? Author Type: Registered Nurse Type: ED Notes Filed: 07/27/2019 11:20 AM Note Text: Pt to ED with diarrhea and abd pain x 1 week, progressively worsening. Pt was admitted to [place] for 2.5 days but had to sign out because his father got in an accident. [facility] ED PROV NOTEon 07-27-2019 ED PROV NOTE HNO ID: [id number] Author: Kamron Jay MD Service: Emergency Medicine [...] his lower abdomen. Patient signed out of [facility] 2 days ago because my dad was in a bad accident. He states he was doing well initially [...] recurrent abdominal pain 3 days after leaving [facility], where he was being treated with immunosuppression and antibiotics, for same. Patient is presently afebrile with normal vital signs and generalized lower abdominal tenderness without peritoneal signs. No leukocytosis. No evidence of blood loss anemia. He is presently being treated with oral Cipro and Flagyl. Medical records from 07/24/19 reviewed: CTAP in [place] on 07/22 showing possible diverticulitis and enterovesicular [...] essentially stable. Discussed with Dr Thompson at [facility] who accepted patient for transfer and admit to hospital medicine service. SIGNATURE: SIVAN Carr (Pa) 07/27/192034 Attending Note I have personally performed a face to face assessment of the patient and have reviewed the PA/DAYTIME CAREGIVER note. My vines findings include: History is [...] his care has been mainly provided at [facility], physician visitor services information assistant contacted the admitting staff. The patient will be accepted for transfer for further treatment. Please refer to SIVAN dictation for further details. Other additions or changes: None Signature: Kamron Jay MD Date: 07/28/2019 Time: 7:32 AM Kamron Jay MD 07/28/[address] [facility] XR ACUTE ABD SERIES 2V ABD+C XRon [...] bowel obstruction. No acute cardiopulmonary disease identified. Metaphysician: PSCB Transcribe Date/Time: Jul 27 2019 2:41P Dictated by : ERIK ELLINGTON MD This examination was interpreted and the report reviewed and electronically signed by: ERIK ELLINGTON MD on Jul 27 2019 2:42PM EST [id number] Normal [facility] CBC auto differentialon 10-2 Absolute Baso # 0.0 10*3/uL 0 - 0.2 10*3/uL [place] Absolute Neut # 11.4 10*3/uL High 1.8 - 7 10*3/uL [place] Basophils/100 WBC (Bld) 0.0 % 0 - 2 % [place] Eosinophils (Bld) [#/Vol] 0.0 10*3/uL 0 - 0.5 10*3/uL [place] Eosinophils/100 WBC (Bld) 0.0 % Low 1 - 6 % [place] Erythrocyte distribution width (RBC) [Ratio] 14.0 % 11.5 - 14.5 % [place] Granulocytes/100 WBC (Bld) 95.1 % High 40 - 80 % [place] Hematocrit (Bld) [Volume fraction] 45.4 % 40 - 52 % [place] Hemoglobin (Bld) [Mass/Vol] 15.3 g/dL 13 - 18 g/dL [place] Interpretation and review of laboratory results Abnormal [place] Lymphocytes (Bld) [#/Vol] 0.5 10*3/uL Low 1 - 4.3 10*3/uL [place] Lymphocytes/100 WBC (Bld) 4.4 % Low 20 - 40 % [place] MCH (RBC) [Entitic mass] 29.4 pg 26 - 34 pg [place] MCHC (RBC) [Mass/Vol] 33.7 % 32 - 36 % [place] MCV (RBC) [Entitic vol] 87.2 fL 80 - 98 fL [place] Monocytes (Bld) [#/Vol] 0.1 10*3/uL 0 - 0.8 10*3/uL [place] Monocytes/100 WBC (Bld) 0.5 % Low 2 - 10 % [place] Platelet mean volume (Bld) [Entitic vol] 9.7 fL 7.4 - 10.4 fL [place] Platelets (Bld) [#/Vol] 239 10*3/uL 140 - 440 10*3/uL [place] RBC (Bld) [#/Vol] 5.21 10*6/uL 4.4 - 5.9 10*6/uL [place] WBC (Bld) [#/Vol] 12.0 10*3/uL High 3.6 - 10.7 10*3/uL [place] Test Performed by [facility], [address] [place] [id number] [place] [address] Comprehensive Metabolic Pane l w/ Reflex to MGon 07-25-2019 Albumin [Mass/Vol] 4.5 g/dL 3.5 - 5 g/dL [place] ALP [Catalytic activity/Vol] 71 U/L 38 - 126 U/L [place] ALT [Catalytic activity/Vol] 37 U/L 13 - 69 U/L [place] Anion gap [Moles/Vol] 9 mmol/L [place] AST [Catalytic activity/Vol] 33 U/L 15 - 46 U/L [place] Bilirubin Ql (U) 0.7 mg/dL 0.2 - 1.3 mg/dL [place] Calcium [Mass/Vol] 9.8 mg/dL 8.4 - 10. 4 mg/dL [place] Chloride [Moles/Vol] 104 mmol/L 98 - 10 7 mmol/L [place] CO2 [Moles/Vol] 25 mmol/L 22 - 30 mmol/L [place] Creatinine [Mass/Vol] 0.8 mg/dL 0.52 - 1.25 mg/dL [place] EGFR IF NonAfrican [place]ian >60.0 >60 mL/min [place] Comment on above: Source- MDRD equatio n with creatinine calibration to IDMS(NKDEP) eGFR not recommended for drug dose adjustment GFR/1.73 sq M predicted among blacks MDRD (S/P/Bld) [Vol rate/Area] mL/min/{1.73_m2} >60 mL/min [place] Glucose [Mass/Vol] 158 mg/dL High 70 - 100 mg/dL [place] Interpretation and review of laboratory results Abnormal [place] Potassium [Moles/Vol] 3.8 mmol/L 3.5 - 5.1 mmol/L [place] Protein [Mass/Vol] 8.2 g/dL 6.3 - 8.2 g/dL [place] Sodium [Moles/Vol] 139 mmol/L 135 - 145 mmol/L [place] Urea nitrogen [Mass/Vol] 10 mg/dL 7 - 20 mg/dL [place] Test Performed by [facility], [address] [place] [id number] [place] [address] MRI ABDOMEN W WO CONTRASTon 07-25-2019 [place], [facility] Incoming [facility] - 07/25/2019 12:12 AM EDT Patient Name: RUTHIE CASTILLO ---MRI--- Exam Date/Time 07/24/2019 19:20:55 EDT Exam MRI Abdomen w/ + w/o Contrast Ordering Physician [id number] -KULWINDER CLAIRE Accession Number [id number] CPT4 Codes 04812 () Reason For Exam crohn flare, with [...] JEFFREY Transcribed Date and Time: 07/25/2019 0:04 [place] Patient Name: RUTHIE CASTILLO ---MRI--- Exam Date/Time 07/24/2019 19:20:55 EDT Exam MRI Abdomen w/ + w/o Contrast Ordering Physician [id number] SAAVEDRA Accession Number [id number] CPT4 Codes 94627 () Reason For Exam crohn flare, with [...] JEFFREY Transcribed Date and Time: 07/25/2019 0:04 [place] Comprehensive Metabolic Pane deja 05-14-2019 Albumin [Mass/Vol] 5.0 g/dL 3.5 - 5 g/dL [place] ALP [Catalytic activity/Vol] 93 U/L 38 - 126 U/L [place] ALT [Catalytic activity/Vol] 58 U/L 13 - 69 U/L [place] Anion gap [Moles/Vol] 15 mmol/L [place] AST [Catalytic activity/Vol] 41 U/L 15 - 46 U/L [place] Bilirubin Ql (U) 0.6 mg/dL 0.2 - 1.3 mg/dL [place] Calcium [Mass/Vol] 10.1 mg/dL 8.4 - 10. 4 mg/dL [place] Chloride [Moles/Vol] 104 mmol/L 98 - 10 7 mmol/L [place] CO2 [Moles/Vol] 23 mmol/L 22 - 30 mmol/L [place] Creatinine [Mass/Vol] 0.79 mg/dL 0.52 - 1.25 mg/dL [place] EGFR IF NonAfrican Panamanian >60.0 >60 mL/min [place] Comment on above: Source- MDRD equatio n with creatinine calibration to IDMS(NKDEP) eGFR not recommended for drug dose adjustment GFR/1.73 sq M predicted among blacks MDRD (S/P/Bld) [Vol rate/Area] mL/min/{1.73_m2} >60 mL/min [place] Glucose [Mass/Vol] 115 mg/dL High 70 - 100 mg/dL [place] Interpretation and review of laboratory results Abnormal [place] Potassium [Moles/Vol] 4.1 mmol/L 3.5 - 5.1 mmol/L [place] Protein [Mass/Vol] 9.0 g/dL High 6.3 - 8.2 g/dL [place] Sodium [Moles/Vol] 142 mmol/L 135 - 145 mmol/L [place] Urea nitrogen [Mass/Vol] 15 mg/dL 7 - 20 mg/dL [place] Hemogram (CBC) w/Auto Diffon 05-14-2019 Absolute Baso # 0.1 10*3/uL 0 - 0.2 10*3/uL [place] Absolute Neut # 11.9 10*3/uL High 1.8 - 7 10*3/uL [place] Basophils/100 WBC (Bld) 0.6 % 0 - 2 % [place] Eosinophils (Bld) [#/Vol] 0.1 10*3/uL 0 - 0.5 10*3/uL [place] Eosinophils/100 WBC (Bld) 0.4 % Low 1 - 6 % [place] Erythrocyte distribution width (RBC) [Ratio] 13.5 % 11.5 - 14.5 % [place] Granulocytes/100 WBC (Bld) 85.3 % High 40 - 80 % [place] Hematocrit (Bld) [Volume fraction] 48.2 % 40 - 52 % [place] Hemoglobin (Bld) [Mass/Vol] 16.4 g/dL 13 - 18 g/dL [place] Interpretation and review of laboratory results Abnormal [place] Lymphocytes (Bld) [#/Vol] 1.4 10*3/uL 1 - 4.3 10*3/uL [place] Lymphocytes/100 WBC (Bld) 9.9 % Low 20 - 40 % [place] MCH (RBC) [Entitic mass] 30.0 pg 26 - 34 pg [place] MCHC (RBC) [Mass/Vol] 34.1 % 32 - 36 % [place] MCV (RBC) [Entitic vol] 87.9 fL 80 - 98 fL [place] Monocytes (Bld) [#/Vol] 0.5 10*3/uL 0 - 0.8 10*3/uL [place] Monocytes/100 WBC (Bld) 3.8 % 2 - 10 % [place] Platelet mean volume (Bld) [Entitic vol] 8.7 fL 7.4 - 10.4 fL [place] Platelets (Bld) [#/Vol] 299 10*3/uL 140 - 440 10*3/uL [place] RBC (Bld) [#/Vol] 5.48 10*6/uL 4.4 - 5.9 10*6/uL [place] WBC (Bld) [#/Vol] 14.0 10*3/uL High 3.6 - 10.7 10*3/uL [place] Test Performed by [facility], [address] , [address] Lipaseon 05-14-2019 Lipase [Catalytic activity/Vol] 81 U/L 23 - 300 U/L [place] Otheron 05-14-2019 Test Performed by [facility], [facility] Ari Kitchen [address] Abdomen Pelvis W Contrast on 05-12-2019 [facility], [facility] Incoming Radiology Results From [facility] - 05/12/2019 1:32 AM EDT Patient Name: RUTHIE CASTILLO ---CT--- Exam Date/Time 05/12/2019 01:12:[address] Abdomen/Pelvis w/ IV Contrast (IV Onl Ordering Physician DEB HUYNH MD, MATTHEW Barroso Accession Number [id number] CPT4 Codes 38691 (CT Abdomen/Pelvis w/ IV Contrast (IV Onl), Q9967 (CT ISOVUE [id number]/[id number]&1) Reason For Exam Patient with a history [...] DIANE Transcribed Date and Time: 05/12/2019 1:32 [place] Patient Name: RUTHIE CASTILLO ---CT--- Exam Date/Time 05/12/2019 01:12:[address] Abdomen/Pelvis w/ IV Contrast (IV Onl Ordering Physician DEB HUYNH MD, MATTHEW Barroso Accession Number [id number] CPT4 Codes 33897 (CT Abdomen/Pelvis w/ IV Contrast (IV Onl), Q9967 (CT ISOVUE 370MG/[id number]&[id number]) Reason For Exam Patient with a history [...] DIANE Transcribed Date and Time: 05/12/2019 1:32 [place] Comprehensive Metabolic Pane deja 05-12-2019 Albumin [Mass/Vol] 4.6 g/dL 3.5 - 5 g/dL [place] ALP [Catalytic activity/Vol] 66 U/L 38 - 126 U/L [place] ALT [Catalytic activity/Vol] 60 U/L 13 - 69 U/L [place] Anion gap [Moles/Vol] 14 mmol/L [place] AST [Catalytic activity/Vol] 48 U/L High 15 - 46 U/L [place] Bilirubin Ql (U) 0.7 mg/dL 0.2 - 1.3 mg/dL [place] Calcium [Mass/Vol] 9.8 mg/dL 8.4 - 10. 4 mg/dL [place] Chloride [Moles/Vol] 104 mmol/L 98 - 10 7 mmol/L [place] CO2 [Moles/Vol] 23 mmol/L 22 - 30 mmol/L [place] Creatinine [Mass/Vol] 0.75 mg/dL 0.52 - 1.25 mg/dL [place] EGFR IF NonAfrican Panamanian >60.0 >60 mL/min [place] Comment on above: Source- MDRD equatio n with creatinine calibration to IDMS(NKDEP) eGFR not recommended for drug dose adjustment GFR/1.73 sq M predicted among blacks MDRD (S/P/Bld) [Vol rate/Area] mL/min/{1.73_m2} >60 mL/min [place] Glucose [Mass/Vol] 107 mg/dL High 70 - 100 mg/dL [place] Interpretation and review of laboratory results Abnormal [place] Potassium [Moles/Vol] 3.8 mmol/L 3.5 - 5.1 mmol/L [place] Protein [Mass/Vol] 8.2 g/dL 6.3 - 8.2 g/dL [place] Sodium [Moles/Vol] 141 mmol/L 135 - 145 mmol/L [place] Urea nitrogen [Mass/Vol] 14 mg/dL 7 - 20 mg/dL [place] Hemogram (CBC) w/Auto Diffon 05-12-2019 Absolute Baso # 0.1 10*3/uL 0 - 0.2 10*3/uL [place] Absolute Neut # 10.8 10*3/uL High 1.8 - 7 10*3/uL [place] Basophils/100 WBC (Bld) 0.5 % 0 - 2 % [place] Eosinophils (Bld) [#/Vol] 0.1 10*3/uL 0 - 0.5 10*3/uL [place] Eosinophils/100 WBC (Bld) 0.7 % Low 1 - 6 % [place] Erythrocyte distribution width (RBC) [Ratio] 13.5 % 11.5 - 14.5 % [place] Granulocytes/100 WBC (Bld) 80.4 % High 40 - 80 % [place] Hematocrit (Bld) [Volume fraction] 45.5 % 40 - 52 % [place] Hemoglobin (Bld) [Mass/Vol] 15.5 g/dL 13 - 18 g/dL [place] Interpretation and review of laboratory results Abnormal [place] Lymphocytes (Bld) [#/Vol] 1.9 10*3/uL 1 - 4.3 10*3/uL [place] Lymphocytes/100 WBC (Bld) 14.2 % Low 20 - 40 % [place] MCH (RBC) [Entitic mass] 30.0 pg 26 - 34 pg [place] MCHC (RBC) [Mass/Vol] 34.0 % 32 - 36 % [place] MCV (RBC) [Entitic vol] 88.1 fL 80 - 98 fL [place] Monocytes (Bld) [#/Vol] 0.6 10*3/uL 0 - 0.8 10*3/uL [place] Monocytes/100 WBC (Bld) 4.2 % 2 - 10 % [place] Platelet mean volume (Bld) [Entitic vol] 8.6 fL 7.4 - 10.4 fL [place] Platelets (Bld) [#/Vol] 270 10*3/uL 140 - 440 10*3/uL [place] RBC (Bld) [#/Vol] 5.17 10*6/uL 4.4 - 5.9 10*6/uL [place] WBC (Bld) [#/Vol] 13.4 10*3/uL High 3.6 - 10.7 10*3/uL [place] Test Performed by [facility], [address] , [address] Lipaseon 05-12-2019 Lipase [Catalytic activity/Vol] 75 U/L 23 - 300 U/L [place] Otheron 05-12-2019 Test Performed by [facility], [address] , [place], [place] [address] [place] Basic Metabolic Panelon 04-30 Anion gap [Moles/Vol] 16 mmol/L [place] Calcium [Mass/Vol] 10.1 mg/dL 8.4 - 10. 4 mg/dL [place] Chloride [Moles/Vol] 102 mmol/L 98 - 10 7 mmol/L [place] CO2 [Moles/Vol] 24 mmol/L 22 - 30 mmol/L [place] Creatinine [Mass/Vol] 0.93 mg/dL 0.52 - 1.25 mg/dL [place] EGFR IF NonAfrican Panamanian >60.0 >60 mL/min [place] Comment on above: Source- MDRD equatio n with creatinine calibration to IDMS(NKDEP) eGFR not recommended for drug dose adjustment GFR/1.73 sq M predicted among blacks MDRD (S/P/Bld) [Vol rate/Area] mL/min/{1.73_m2} >60 mL/min [place] Glucose [Mass/Vol] 128 mg/dL High 70 - 100 mg/dL [place] Potassium [Moles/Vol] 3.8 mmol/L 3.5 - 5.1 mmol/L [place] Sodium [Moles/Vol] 142 mmol/L 135 - 145 mmol/L [place] Urea nitrogen [Mass/Vol] 11 mg/dL 7 - 20 mg/dL [place] Hemogram (CBC)on 05-11-2019 Erythrocyte distribution width (RBC) [Ratio] 13.7 % 11.5 - 14.5 % [place] Hematocrit (Bld) [Volume fraction] 47.8 % 40 - 52 % [place] Hemoglobin (Bld) [Mass/Vol] 16.2 g/dL 13 - 18 g/dL [place] Interpretation and review of laboratory results Abnormal [place] MCH (RBC) [Entitic mass] 29.9 pg 26 - 34 pg [place] MCHC (RBC) [Mass/Vol] 34.0 % 32 - 36 % [place] MCV (RBC) [Entitic vol] 87.9 fL 80 - 98 fL [place] Platelet mean volume (Bld) [Entitic vol] 8.8 fL 7.4 - 10.4 fL [place] Platelets (Bld) [#/Vol] 287 10*3/uL 140 - 440 10*3/uL [place] RBC (Bld) [#/Vol] 5.43 10*6/uL 4.4 - 5.9 10*6/uL [place] WBC (Bld) [#/Vol] 13.1 10*3/uL High 3.6 - 10.7 10*3/uL [place] Test Performed by [facility], [address] , [address] Hepatic Function Panelon Albumin [Mass/Vol] 4.9 g/dL 3.5 - 5 g/dL [place] ALP [Catalytic activity/Vol] 88 U/L 38 - 126 U/L [place] ALT [Catalytic activity/Vol] 57 U/L 13 - 69 U/L [place] AST [Catalytic activity/Vol] 42 U/L 15 - 46 U/L [place] Bilirubin Ql (U) 0.5 mg/dL 0.2 - 1.3 mg/dL [place] Bilirubin.direct [Mass/Vol] 0.0 mg/dL 0 - 0.3 mg/dL [place] Protein [Mass/Vol] 8.7 g/dL High 6.3 - 8.2 g/dL [place] Lipaseon 05-11-2019 Lipase [Catalytic activity/Vol] 86 U/L 23 - 300 U/L [place] Otheron 05-11-2019 Interpretation and review of laboratory results Abnormal [place] Test Performed by [facility], [address] , [address], [place] Urinalysison 05-11-2019 Appearance (U) Clear [place] Comment on above: Reference Range: Festus ar Bilirubin Urine Negative mg/dL [place] Comment on above: Reference Range: Neg ative Color (U) COLORLESS [place] Comment on above: Reference Range: Lt. Yellow Glucose, Ur Normal mg/dL [place] Comment on above: Reference Range: Nor mal (<70) Ketones Ql (U) Negative mg/dL [place] Comment on above: Reference Range: Neg ative LEUKOCYTES, UA Negative Serafin/uL [place] Comment on above: Reference Range: Neg ative Nitrite, Urine Negative [place] Comment on above: Reference Range: Neg ative Occult Blood,Urine Negative mg/dL [place] Comment on above: Reference Range: Neg ative pH (U) 6.5 [pH] [place] Protein (U) [Mass/Vol] Negative mg/dL [place] Comment on above: Reference Range: Neg ative Specific [place], Urine 1.007 [place] Urobilinogen, Urine Normal mg/dL [place] Comment on above: Reference Range: Nor mal (0-1) Test Performed by [facility], [address] [place] [address] Rd. , [address] Initial Visit (Gastroenterol ogy)on 10-27-2018 Initial [...] Patient was seen and admitted by both [facility] and [facility] in August 2018 for severe lower [...] discharged home with Flagyl. He returned to [facility] ER again on 09/09/18 for continued abdominal pain and was readmitted with worsening leukocytosis and received IV antibiotic therapy. Repeat CT showed no changes and stable 3 cm abscess medial to the sigmoid colon. Following this, patient was also evaluated at [facility] (exact date uncertain) for continued lower abdominal pain where CT apparently showed possible colitis and polyp per PCP office note and recommended scheduling a colonoscopy to rule out inflammatory bowel disease. Patient states laboratory testing for IBD was completed at [facility], and were positive per patient. Patient reports [...] PM Vitals Vital Signs Recorded: 27Oct2018 01:14PM [id number] F, Oral Heart Rate86 [id number], LUE, Sitting Tpddwrsja28, LUE, Sitting Blood Pressure Cuff SizeAdult Height6 ft Njxoov013 lb BMI Dgrwcaokfe18.77 BSA Calculated2.34 O2 [id number] Physical Exam Const: Vital signs reviewed. Appears [...] constipation; HENRY = N; Verified Transmission to [address]; Last Updated By: [email or web address]; 10/27/2018 2:35:38 PM Abdominal pain, Chronic constipation, Diverticulosis of intestine Start: PEG-3350/Electrolytes 236 GM Oral Solution Reconstituted; TAKE DIRECTED Rx By: Melanie Ocasio; Dispense: 0 Days ; #:1 X 4000 ML Bottle; Refill: 0;For: Abdominal pain, Chronic constipation, Diverticulosis of intestine; HENRY = N; Verified Transmission to [address]; Last Updated By: [email or web address]; 10/27/2018 2:35:40 PM SocHx: Current every day [...] juice, or Gatorade daily. This products is [id number]-igu-[id number]. You can adjust this product if you are having severe constipation by increasing it to twice a day. If you are experiencing loose stool, decrease amount to one half capful daily or one capful every other day. 5. Begin using one heaping tablespoon of Benefiber in 8 ounces of water daily by mixing and drinking quickly. This product is pjyj-lks-bgpnkxr. 6. Obtain results of recent IBD testing from [facility] 7. A healthy, low fat diet and regular exercise is recommended for weight reduction. 8. Patient warned to go directly to the hospital ER for increasing pain, heavy bleeding, repeat vomiting, severe diarrhea, fever, shortness of breath, dizziness, or severe weakness. Signatures Electronically signed by : WERNER Hunt; Oct 27 2018 4:46PM EST (Author) Normal [employer] Vital Signs Date Time Vital Sign Value Performing Clinician Facility 09-06-2023 21:03-0500 Diastolic Blood Pressure Non-Invasive 91 mm[Hg] CYNTHIA MURPHY MD [facility] 09-06-2023 21:03-0500 Heart rate 84 /min CYNTHIA MURPHY MD [facility] 09-06-2023 21:03-0500 Respiratory rate 18 /min CYNTHIA MURPHY MD [facility] 09-06-2023 21:03-0500 Systolic Blood Pressure Non-Invasive 135 mm[Hg] CYNTHIA MURPHY MD [facility] 09-06-2023 19:15-0500 Blood Pressure Cuff Size CYNTHIA MURPHY MD [facility] 09-06-2023 19:15-0500 Blood Pressure Location CYNTHIA MURPHY MD [facility] 09-06-2023 19:15-0500 Blood Pressure Method CYNTHIA MURPHY MD [facility] 09-06-2023 19:15-0500 Diastolic Blood Pressure Non-Invasive 94 mm[Hg] CYNTHIA MURPHY MD [facility] 09-06-2023 19:15-0500 Heart rate 88 /min CYNTHIA MURPHY MD [facility] 09-06-2023 19:15-0500 Respiratory rate 18 /min CYNTHIA MURPHY MD [facility] 09-06-2023 19:15-0500 Systolic Blood Pressure Non-Invasive 134 mm[Hg] CYNTHIA MURPHY MD [facility] 09-06-2023 17:51-0500 Diastolic Blood Pressure Non-Invasive 91 mm[Hg] CYNTHIA MURPHY MD [facility] 09-06-2023 17:51-0500 Heart rate 76 /min CYNTHIA MURPHY MD [facility] 09-06-2023 17:51-0500 Respiratory rate 18 /min CYNTHIA MURPHY MD [facility] 09-06-2023 17:51-0500 Systolic Blood Pressure Non-Invasive 134 mm[Hg] CYNTHIA MURPHY MD [facility] 09-06-2023 15:21-0500 Body height 185.4 cm CYNTHIA MURPHY MD [facility] 09-06-2023 15:21-0500 Body temperature 97.88 [degF] CYNTHIA MURPHY MD [facility] 09-06-2023 15:21-0500 Body weight 113.2 kg CYNTHIA MURPHY MD [facility] 09-06-2023 15:21-0500 Heart rate 80 /min CYNTHIA MURPHY MD [facility] 11-24-2022 19:52-0500 Diastolic blood pressure 101 mm[Hg] [facility] 11-24-2022 19:52-0500 Heart rate 75 /min [place] 11-24-2022 19:52-0500 Respiratory rate 18 /min [facility] 11-24-2022 19:52-0500 SaO2% (BldA) [Mass fraction] 100 % [facility] 11-24-2022 19:52-0500 Systolic blood pressure 145 mm[Hg] [facility] 11-24-2022 18:31-0500 Body temperature 98.2 [degF] [facility] 11-24-2022 17:14-0500 Body height 182.88 cm [place] 11-24-2022 17:14-0500 Body mass index (BMI) [Ratio] 37.4 kg/m2 [facility] 11-24-2022 17:14-0500 Body weight 125.3 kg [place] 11-23-2022 16:19-0500 Body height 182.88 cm [place] 11-23-2022 16:19-0500 Body mass index (BMI) [Ratio] 37.7 kg/m2 [facility] 11-23-2022 16:19-0500 Body temperature 98.1 [degF] [facility] 11-23-2022 16:19-0500 Body weight 126.09 kg [place] 11-23-2022 16:19-0500 Diastolic blood pressure 109 mm[Hg] [facility] 11-23-2022 16:19-0500 Heart rate 102 /min [place] 11-23-2022 16:19-0500 Respiratory rate 18 /min [facility] 11-23-2022 16:19-0500 SaO2% (BldA) [Mass fraction] 97 % [facility] 11-23-2022 16:19-0500 Systolic blood pressure 203 mm[Hg] [facility] 03-29-2022 11:32-0400 Respiratory rate 18 /min [facility] Work Phone: 03-29-2022 09:54-0400 Body height 182.88 cm [place] Work Phone: 03-29-2022 09:54-0400 Body mass index (BMI) [Ratio] 35.5 kg/m2 [facility] Work Phone: 03-29-2022 09:54-0400 Body temperature 97.9 [degF] [facility] Work Phone: 03-29-2022 09:54-0400 Body weight 118.75 kg [place] Work Phone: 03-29-2022 09:54-0400 Diastolic blood pressure 105 mm[Hg] [facility] Work Phone: 03-29-2022 09:54-0400 Heart rate 86 /min [place] Work Phone: 03-29-2022 09:54-0400 SaO2% (BldA) [Mass fraction] 100 % [facility] Work Phone: 03-29-2022 09:54-0400 Systolic blood pressure 151 mm[Hg] [facility] Work Phone: 02-01-2022 13:20-0400 Body height 182.88 cm [place] Work Phone: 02-01-2022 13:20-0400 Body mass index (BMI) [Ratio] 35.6 kg/m2 [facility] Work Phone: 02-01-2022 13:20-0400 Body temperature 97.3 [degF] [facility] Work Phone: 02-01-2022 13:20-0400 Body weight 119.29 kg [place] Work Phone: 02-01-2022 13:20-0400 Diastolic blood pressure 106 mm[Hg] [facility] Work Phone: 02-01-2022 13:20-0400 Heart rate 85 /min [place] Work Phone: 02-01-2022 13:20-0400 Respiratory rate 16 /min [facility] Work Phone: 02-01-2022 13:20-0400 SaO2% (BldA) [Mass fraction] 98 % [facility] Work Phone: 02-01-2022 13:20-0400 Systolic blood pressure 170 mm[Hg] [facility] Work Phone: 10-29-2021 20:46-0500 Body mass index (BMI) [Ratio] 38.1 kg/m2 [facility] Work Phone: 10-29-2021 20:46-0500 Body temperature 97.2 [degF] [facility] Work Phone: 10-29-2021 20:46-0500 Body weight 127.45 kg [place] Work Phone: 10-29-2021 20:46-0500 Diastolic blood pressure 121 mm[Hg] [facility] Work Phone: 10-29-2021 20:46-0500 Heart rate 97 /min [place] Work Phone: 10-29-2021 20:46-0500 Respiratory rate 16 /min [facility] Work Phone: 10-29-2021 20:46-0500 SaO2% (BldA) [Mass fraction] 100 % [facility] Work Phone: 10-29-2021 20:46-0500 Systolic blood pressure 175 mm[Hg] [facility] Work Phone: 11-10-2020 16:12-0500 BP Diastolic 101 mm[Hg] Spencer [...] 10-30-2020 21:15-0500 Body Temperature 98.91 [degF] [facility] [place] 10-30-2020 21:15-0500 BP Diastolic 78 mm[Hg] [facility] [place] [facility] [place] 10-30-2020 21:15-0500 BP Systolic 144 mm[Hg] [facility] [place] [facility] [place] 10-30-2020 21:15-0500 Pulse (Heart Rate) 87 /min [facility] [place] [place] 10-30-2020 21:15-0500 Pulse Oximetry 98 % [facility] [place] , [place] 10-30-2020 21:15-0500 Respiratory Rate 16 /min [facility] [place] 10-30-2020 16:31-0500 BMI (Body Mass Index) 34.04 kg/m2 [facility] Can[facility], [place] 10-30-2020 16:31-0500 Body weight 113.85 kg [facility] [place] 10-30-2020 16:31-0500 Height 182.9 cm [facility] [place] [facility] [place] 08-26-2020 05:59-0500 BP Diastolic 86 mm[Hg] [facility] [place] [facility] [place] 08-26-2020 05:59-0500 BP Systolic 133 mm[Hg] Matthew [facility] [place] 08-26-2020 05:59-0500 Pulse (Heart Rate) 76 /min [facility] [place] 08-26-2020 05:59-0500 Pulse Oximetry 100 % [facility] [place] [facility] [place] 08-26-2020 05:59-0500 Respiratory Rate 16 /min [facility] [place] 08-26-2020 04:13-0500 BMI (Body Mass Index) 32.55 kg/m2 Matthew Can[facility], [place] 08-26-2020 04:13-0500 Body Temperature 98.01 [degF] [facility] [place] 08-26-2020 04:13-0500 Body weight 108.86 kg [facility] [place] [facility] [place] 08-26-2020 04:13-0500 Height 182.9 cm [facility] [place] [facility] [place] 08-15-2020 09:04-0500 Body Temperature 96.49 [degF] [facility] [place] 08-15-2020 09:04-0500 BP Diastolic 86 mm[Hg] [facility] [place] [facility] [place] 08-15-2020 09:04-0500 BP Systolic 152 mm[Hg] [facility] [place] [facility] [place] 08-15-2020 09:04-0500 Pulse (Heart Rate) 83 /min [facility] [place] 08-15-2020 09:04-0500 Pulse Oximetry 98 % [facility] [place] [facility] [place] 08-15-2020 09:04-0500 Respiratory Rate 18 /min [facility] [place] [place] 08-10-2020 09:50-0500 Height 180.3 cm [facility] [place] [facility] [place] 08-09-2020 16:32-0500 Pulse (Heart Rate) 81 /min [facility] [place] 08-09-2020 16:32-0500 Respiratory Rate 20 /min [facility] [place] [place] 08-09-2020 16:29-0500 BP Diastolic 85 mm[Hg] [facility] [place] [facility] [place] 08-09-2020 16:29-0500 BP Systolic 160 mm[Hg] [facility] [place] [facility] [place] 08-09-2020 16:29-0500 Pulse Oximetry 98 % [facility] [place] [facility] [place] 08-09-2020 14:56-0500 BMI (Body Mass Index) 33.47 kg/m2 Spencer Canales [facility] [place], [place] 08-09-2020 14:56-0500 Body Temperature 97.39 [degF] [facility] [place] [facility] [place] 08-09-2020 14:56-0500 Body weight 108.86 kg [facility] [place] [facility] [place] 08-09-2020 14:56-0500 Height 180.3 cm [facility] [place] [facility] [place] 07-03-2020 01:55-0400 BP Diastolic 67 mm[Hg] [facility] [place] 07-03-2020 01:55-0400 BP Systolic 132 mm[Hg] [facility] [place] 07-03-2020 01:55-0400 Pulse (Heart Rate) 89 /min [facility] [place] 07-03-2020 01:55-0400 Respiratory Rate 17 /[facility] [place] 07-03-2020 00:46-0400 BMI (Body Mass Index) 32.22 kg/m2 [facility] [place] 07-03-2020 00:46-0400 Body Temperature 97.2 [degF] [facility] [place] 07-03-2020 00:46-0400 Body weight 104.78 kg [facility] [place] 07-03-2020 00:46-0400 Height 180.3 cm [facility] [place] 07-03-2020 00:46-0400 Pulse Oximetry 9 % [facility]inasalvatore [facility] [place] 07-01-2020 16:07-0400 Body Temperature 97.2 [degF] [facility] [place] 07-01-2020 16:07-0400 BP Diastolic 89 mm[Hg] [facility] [place] 07-01-2020 16:07-0400 BP Systolic 146 mm[Hg] [facility] [place] 07-01-2020 16:07-0400 Pulse (Heart Rate) 69 /[facility] [place] 07-01-2020 16:07-0400 Pulse Oximetry 99 % [facility] [place] 07-01-2020 16:07-0400 Respiratory Rate 17 /min [facility] [place] 06-28-2020 10:14-0400 Height 180.3 cm [facility], [place] 06-26-2020 11:56-0400 BMI (Body Mass Index) 37.8 kg/m2 [facility] [place] 06-26-2020 11:56-0400 Body weight [facility].92 [facility] [place] 05-10-2020 16:51-0400 Body Temperature 97.11 [degF] [facility], [place] 05-10-2020 16:51-0400 BP Diastolic 69 mm[Hg] [facility] , [place] 05-10-2020 16:51-0400 BP Systolic 146 mm[Hg] [facility] , [place] 05-10-2020 16:51-0400 Pulse (Heart Rate) 83 /min [facility], [place] 05-10-2020 16:51-0400 Pulse Oximetry 99 % [facility] , [place] 05-10-2020 16:51-0400 Respiratory Rate 18 /min [facility], [place] 05-10-2020 09:45-0400 Height 180.3 cm [facility] , [place] 05-08-2020 18:23-0400 BMI (Body Mass Index) 39.75 kg/m2 [facility], [place] 05-08-2020 18:23-0400 Body weight 129.28 kg [facility] , [place] 04-28-2020 06:30-0400 Body Temperature 98.6 [degF] [facility], [place] 04-28-2020 06:30-0400 BP Diastolic 70 mm[Hg] [facility] , [place] 04-28-2020 06:30-0400 BP Systolic 130 mm[Hg] [facility] , [place] 04-28-2020 06:30-0400 Pulse (Heart Rate) 57 /min [facility], [place] 04-28-2020 06:30-0400 Pulse Oximetry 95 % [facility] , [place] 04-28-2020 06:30-0400 Respiratory Rate 18 /min [facility], [place] 04-27-2020 01:00-0400 BMI (Body Mass Index) 39.75 kg/m2 [facility], [place] 04-27-2020 01:00-0400 Body weight 129.28 kg [facility] , [place] 04-27-2020 01:00-0400 Height 180.3 cm [facility] , [place] 10-21-2019 20:02-0500 Diastolic blood pressure 86 mm[Hg] Winston Gombash DO Work Phone: [facility] Work Phone: 10-21-2019 20:02-0500 Systolic blood pressure [...] 97.7 [degF] Vimal Walton MD Work Phone: [facility] Work Phone: 10-19-2019 18:13-0500 Diastolic blood pressure 84 mm[Hg] Vimal Walton MD Work Phone: [facility] Work Phone: 10-19-2019 18:13-0500 Heart rate 66 /min Vimal Walton MD Work Phone: [facility] Work Phone: 10-19-2019 18:13-0500 Respiratory rate 17 /min Vimal Walton MD Work Phone: [facility] Work Phone: 10-19-2019 18:13-0500 SaO2% (BldA) [Mass fraction] 100 % Vimal Walton MD Work Phone: [facility] Work Phone: 10-19-2019 18:13-0500 Systolic blood pressure 136 mm[Hg] Vimal Walton MD Work Phone: [facility] Work Phone: 10-19-2019 14:58-0500 Body height 182.9 cm [facility]imal [facility] Work [facility]: 10-19-2019 14:58-0500 Body mass index (BMI) [Ratio] 36.89 kg/m2 Vimal Walton MD Work Phone: [facility] Work Phone: 10-19-2019 14:58-0500 Body weight 123.38 kg Vimal Walton MD Work Phone: [facility] Work Phone: 10-18-2019 20:22-0500 Body mass index (BMI) [Ratio] 36.93 kg/m2 Perez Hernandez MD Work Phone: [facility] Work Phone: 10-18-2019 20:22-0500 Body weight 123.5 kg Perez Hernandez MD Work Phone: [facility] Work Phone: 10-18-2019 18:26-0500 Body temperature 97.7 [degF] Perez Hernandez MD Work Phone: [facility] Work Phone: 10-18-2019 18:26-0500 Diastolic blood pressure 93 mm[Hg] Perez Hernandez MD Work Phone: [facility] Work Phone: 10-18-2019 18:26-0500 Heart rate 84 /min Perez Hernandez MD Work Phone: [facility] Work Phone: 10-18-2019 18:26-0500 Respiratory rate 16 /min Perez Hernandez MD Work Phone: [facility] Work Phone: 10-18-2019 18:26-0500 SaO2% (BldA) [Mass fraction] 100 % Perez Hernandez MD Work Phone: [facility] Work Phone: 10-18-2019 18:26-0500 Systolic blood pressure 152 mm[Hg] Perez Hernandez MD Work Phone: [facility] Work Phone: 10-17-2019 18:56-0500 Diastolic blood pressure 89 mm[Hg] Ranulfo Hermosillo MD Work Phone: [facility] Work Phone: 10-17-2019 18:56-0500 Heart rate 89 /min Ranulfo Hermosillo MD Work Phone: [facility] Work Phone: 10-17-2019 18:56-0500 Respiratory rate 16 /min Ranulfo Hermosillo MD Work Phone: [facility] Work Phone: 10-17-2019 18:56-0500 SaO2% (BldA) [Mass fraction] 97 % Ranulfo Hermosillo MD Work Phone: [facility] Work Phone: 10-17-2019 18:56-0500 Systolic blood pressure 146 mm[Hg] Ranulfo Hermosillo MD Work Phone: [facility] Work Phone: 10-17-2019 16:54-0500 Body height 182.9 cm Ranulfo Hermosillo MD Work Phone: [facility] Work Phone: 10-17-2019 16:54-0500 Body mass index (BMI) [Ratio] 36.62 kg/m2 Ranulfo Hermosillo MD Work Phone: [facility] Work Phone: 10-17-2019 16:54-0500 Body temperature 98.2 [degF] Ranulfo Hermosillo MD Work Phone: [facility] Work Phone: 10-17-2019 16:54-0500 Body weight 122.47 kg Ranulfo Hermosillo MD Work Phone: [facility] Work Phone: 08-17-2019 15:30-0500 BP Diastolic 69 mm[Hg] [facility], [place] 08-17-2019 15:30-0500 BP Systolic 139 mm[Hg] [facility], [place] 08-17-2019 15:30-0500 Pulse (Heart Rate) 89 /min [facility], [place] 08-17-2019 14:25-0500 Pulse Oximetry 98 % [facility], [place] 08-17-2019 14:25-0500 Respiratory Rate 14 /min [facility], [place] 08-17-2019 10:55-0500 BMI (Body Mass Index) 35.26 kg/m2 [facility], [place] 08-17-2019 10:55-0500 Body Temperature 98.71 [degF] [facility], [place] 08-17-2019 10:55-0500 Body weight 117.94 kg [facility], [place] 08-17-2019 10:55-0500 Height 182.9 cm [facility], [place] 08-08-2019 08:11-0500 Body Temperature 97.11 [degF] [facility], [place] 08-08-2019 08:11-0500 BP Diastolic 86 mm[Hg] [facility], [place] 08-08-2019 08:11-0500 BP Systolic 143 mm[Hg] [facility] [place] 08-08-2019 08:11-0500 Pulse (Heart Rate) 52 /min [facility] [place] 08-08-2019 08:11-0500 Pulse Oximetry 96 % Aaliyahtony Gresham [facility], [place] 08-08-2019 08:11-0500 Respiratory Rate 16 /min Aaliyahtony Gresham [facility], [place] 08-05-2019 05:56-0500 BMI (Body Mass Index) 38.86 kg/m2 [facility] [place] 08-05-2019 05:56-0500 Body weight 129.96 kg Aaliyahtony Gresham [facility], [place] 07-29-2019 08:02-0400 Body Temperature 96.3 [degF] [facility], [place] 07-29-2019 08:02-0400 BP Diastolic 98 mm[Hg] [facility] , [place] 07-29-2019 08:02-0400 BP Systolic 158 mm[Hg] [facility] , [place] 07-29-2019 08:02-0400 Pulse (Heart Rate) 60 /min [facility], [place] 07-29-2019 08:02-0400 Pulse Oximetry 97 % [facility] , [place] 07-29-2019 08:02-0400 Respiratory Rate 18 /min [facility], [place] 07-27-2019 16:56-0400 BMI (Body Mass Index) 38.79 kg/m2 [facility] [place] 07-27-2019 16:56-0400 Body weight 129.73 kg [facility] , [place] 07-27-2019 16:56-0400 Height 182.9 cm [facility] , [place] 07-25-2019 07:48-0400 Body Temperature 97.5 [degF] [facility] [place] 07-25-2019 07:48-0400 BP Diastolic 56 mm[Hg] Aaliyahtony Gresham [facility], [place] 07-25-2019 07:48-0400 BP Systolic 119 mm[Hg] [facility] [place] 07-25-2019 07:48-0400 Pulse (Heart Rate) 70 /min Aaliyahtony Gresham [facility], [place] 07-25-2019 07:48-0400 Pulse Oximetry 95 % Aaliyahtony Gresham [facility], [place] 07-25-2019 07:48-0400 Respiratory Rate 16 /min Aaliyahtony Gresham [facility], [place] 07-24-2019 14:30-0400 BMI (Body Mass Index) 35.53 kg/m2 Aaliyahtony Gresham [facility], [place] 07-24-2019 14:30-0400 Body weight 118.84 kg Aaliyahtony Gresham [facility], [place] 07-24-2019 14:30-0400 Height 182.9 cm Aaliyahtony Gresham [facility], [place] 05-14-2019 19:10-0400 BMI (Body Mass Index) 38.65 kg/m2 [facility], [place] 05-14-2019 19:10-0400 Body Temperature 98.1 [degF] [facility] [place] 05-14-2019 19:10-0400 Body weight 129.28 kg [facility] [place] 05-14-2019 19:10-0400 BP Diastolic 94 mm[Hg] [facility] , [place] 05-14-2019 19:10-0400 BP Systolic 161 mm[Hg] [facility] , [place] 05-14-2019 19:10-0400 Height 182.9 cm [facility] [place] 05-14-2019 19:10-0400 Pulse (Heart Rate) 92 /min [facility] [place] 05-14-2019 19:10-0400 Pulse Oximetry 99 % [facility] , [place] 05-14-2019 19:10-0400 Respiratory Rate 18 /min Matthew Canales [facility], [place] 05-12-2019 01:46-0400 BP Diastolic 63 mm[Hg] Matthew Canales [facility] , [place] 05-12-2019 01:46-0400 BP Systolic 115 mm[Hg] [facility] [place] 05-12-2019 01:46-0400 Pulse (Heart Rate) 56 /min Matthew Canales [facility], [place] 05-12-2019 01:46-0400 Pulse Oximetry 96 % Matthew Canales [facility] , [place] 05-12-2019 01:46-0400 Respiratory Rate 18 /min Matthew Canales [facility], [place] 05-11-2019 23:49-0400 BMI (Body Mass Index) 37.6 kg/m2 Matthew Canales [facility], [place] 05-11-2019 23:49-0400 Body Temperature 98.4 [degF] Matthew Canales [facility], [place] 05-11-2019 23:49-0400 Body weight 129.28 kg Matthew Lopez [facility] , [place] 05-11-2019 23:49-0400 Height 185.4 cm [facility] , [place] 05-11-2019 01:29-0400 BP Diastolic 92 mm[Hg] [facility] [place] 05-11-2019 01:29-0400 BP Systolic 128 mm[Hg] [facility] [place] [facility] [place] 05-11-2019 01:29-0400 Pulse (Heart Rate) 70 /min [facility] [place] [place] 05-11-2019 01:29-0400 Pulse Oximetry 96 % [facility] [place] [facility] [place] 05-11-2019 01:29-0400 Respiratory Rate 16 /min [facility] [place] 05-11-2019 00:17-0400 BMI (Body Mass Index) 38.79 kg/m2 [facility], [place] 05-11-2019 00:17-0400 Body Temperature 98.4 [degF] Nicolás Maya [facility] [place] 05-11-2019 00:040 Body weight 129.73 kg Nicolás Maya [facility] , [place] 05-11-2019 00:040 Height 182.9 cm Nicolás Maya [facility] , [place] Encounters Encounter Date Encounter Type Care Provider Facility Start: 07-22-2024 End: 07-23-2024 Emergency department patient visit Usha Frazier Facility:[facility] Start: 06-29-2024 End: 06-29-[address] USHA FRAZIER DO Facility:[facility] Start: 06-29-2024 End: 06-29-2024 Patient encounter procedure STEFANY PAGE MD [facility] Start: 06-29-2024 End: 06-29-2024 Special examination status STEFANY PAGE MD [facility] Start: 04-21-2024 End: 04-21-2024 Emergency department patient visit Nito Tapia Facility:[facility] Start: 03-05-2024 End: 03-05-2024 Emergency department patient visit Matthew Sanchez Facility:[facility] Start: 09-06-2023 End: 09-06-2023 Emergency department patient visit CYNTHIA MURPHY MD Facility:[facility] Start: 09-06-2023 End: 09-06-2023 Emergency department patient visit CYNTHIA MURPHY MD [facility] Start: 11-24-2022 End: 11-24-2022 Emergency department patient visit [facility] Start: 11-23-2022 End: 11-23-2022 Emergency department patient visit USHA FRAZIER Facility:[facility] Start: 11-23-2022 End: 11-23-2022 Emergency department patient visit [facility] Start: 03-29-2022 End: 03-29-2022 Emergency department patient visit [facility] Start: 02-01-2022 End: 02-01-2022 Emergency department patient visit [facility] Start: 10-29-2021 End: 10-29-2021 Emergency department patient visit [facility] Start: 11-10-2020 End: 11-10-2020 Subsequent hospital visit by physician Spencer Fonseca Work Phone: [facility] Pre-Admit Testing Comment on above: Arrived Start: 10-30-2020 End: 10-30-2020 Emergency department patient visit Matthew Lopez Work Phone: [facility] Emergency Dept Comment on above: Generalized abdomina l pain (Primary Dx) Start: 08-26-2020 End: 08-26-2020 Emergency department patient visit Matthew Lopez Work Phone: [facility] Emergency Dept Comment on above: Encounter for post s urgical wound check (Primary Dx) Start: 08-09-2020 End: 08-15-2020 Evaluation and management of inpatient Spencer Fonseca Work Phone: [facility] Comment on above: Colon perforation (H CC) (Primary Dx) Start: 08-09-2020 End: 08-09-2020 Subsequent hospital visit by physician Spencer Fonseca Work Phone: [facility] [address] End[facility] Comment on above: Colon perforation (H CC) Start: 07-03-2020 End: 07-03-2020 Emergency department patient visit Andreina Hough Work Phone: [facility] ED Comment on above: Lower abdominal pain (Primary Dx) Start: 06-26-2020 End: 07-01-2020 Evaluation and management of inpatient Baudilio Frank Work Phone: [facility] H5 MED SURG Comment on above: Diverticulitis (Prim juju Dx); Intra-abdominal abscess (HCC); Left lower quadrant abdominal pain Start: 05-08-2020 End: 05-10-2020 Evaluation and management of inpatient Winston Salvatore Jefferson Work Phone: [facility] H5 MED SURG Comment on above: Intractable nausea a nd vomiting (Primary Dx); Generalized abdominal pain; Acute Crohn's disease with fistula (HCC) Start: 04-27-2020 End: 04-28-2020 Evaluation and management of inpatient Rosendo Wild Work Phone: [facility] Start: 10-21-2019 End: 10-21-2019 Emergency department patient visit Winston Jefferson DO Work Phone: [facility] [place] [facility] Comment on above: Chronic abdominal pa in (Primary Dx) Start: 10-19-2019 End: 10-19-2019 Emergency department patient visit Vimal Walton MD Work Phone: [facility] Emergency Dept Comment on above: Right lower quadrant abdominal pain (Primary Dx); Crohn's colitis, unspecified complication (HCC) Start: 10-18-2019 End: 10-18-2019 Emergency department patient visit Perez Hernandez MD Work Phone: [facility] [place] [facility] Comment on above: Generalized abdomina l pain (Primary Dx); Essential hypertension Start: 10-17-2019 End: 10-17-2019 Emergency department patient visit Ranulfo Hermosillo MD Work Phone: [facility] [place] [facility] Comment on above: Right lower quadrant abdominal pain (Primary Dx) Start: 08-17-2019 End: 08-17-2019 Emergency department patient visit Benedict Stevens Work Phone: [facility] [place] [facility] Comment on above: Diarrhea, unspecifie d type (Primary Dx); Non-intractable vomiting with nausea, unspecified vomiting type; Viral syndrome Start: 08-05-2019 End: 08-08-2019 Evaluation and management of inpatient Aaliyah Farley Work Phone: [facility] Comment on above: IBD (inflammatory mark wel disease) (Primary Dx) Start: 07-27-2019 End: 07-29-2019 Evaluation and management of inpatient Bob Thompson Work Phone: [facility] Start: 07-24-2019 End: 07-25-2019 Evaluation and management of inpatient Aaliyah Mp Farley Work Phone: [facility] Start: 05-14-2019 End: 05-14-2019 Emergency department patient visit Matthew Lopez Work Phone: [facility] ED Comment on above: Right upper quadrant abdominal pain (Primary Dx) Start: 05-11-2019 End: 05-12-2019 Emergency department patient visit Matthew Lopez Work Phone: [facility] Comment on above: Abdominal pain, righ t lower quadrant (Primary Dx); Crohn's disease of small intestine without complication (HCC) Start: 05-11-2019 End: 05-11-2019 Emergency department patient visit Nicolás Maya Work Phone: [facility] ED Comment on above: Generalized abdomina l pain (Primary Dx) Start: 10-27-2018 Patient encounter procedure Melanie Ocasio Facility:[id number] Procedures Date Procedure Procedure Detail Performing Clinician Start: 11-24-2022 Plain chest X-ray Start: 11-24-2022 Ultrasound of scrotum with Doppler and color flow imaging Start: 11-10-2020 Blood count hemoglobin Samanta A Grope Work Phone: Start: 11-10-2020 Blood typing serologic abo Samanta A Grop e Work Phone: Start: 10-30-2020 CT Abdomen and Pelvis W contrast IV Jamie Ghsonnyasan Work Phone: Start: 10-30-2020 Assay of lactate Jamie Ghimbasan Work Phone: Start: 10-30-2020 Assay of lipase Jamie Ghimbasan Work Phone: Start: 10-30-2020 Basic metabolic panel calcium total Jamie Ghimbasan Work Phone: Start: 10-30-2020 Blood count complete auto&auto difrntl wbc Jamie Ghimbasan Work Phone: Start: 10-30-2020 Hepatic function panel Jamie Ghimbasa n Work Phone: Start: 08-15-2020 Assay of magnesium Louise Susie Work Phone: Start: 08-15-2020 BASIC METABOLIC PANEL W/ REFLEX TO MG FOR LOW K Louise Susie Work Phone: Start: 08-15-2020 Blood count complete auto&auto difrntl wbc Louise Susie Work Phone: Start: 08-15-2020 MANUAL DIFFERENTIAL Louise Susie Work Phone: Start: 08-14-2020 BASIC METABOLIC PANEL W/ REFLEX TO MG FOR LOW K Louise Susie Work Phone: Start: 08-14-2020 Blood count complete auto&auto difrntl wbc Louise Susie Work Phone: Start: 08-13-2020 Assay of magnesium Louise Susie Work Phone: Start: 08-13-2020 BASIC METABOLIC PANEL W/ REFLEX TO MG FOR LOW K Louise Susie Work Phone: Start: 08-13-2020 Blood count complete auto&auto difrntl wbc Louise Susie Work Phone: Start: 08-12-2020 Assay of phosphorus inorganic Louise Eape n Work Phone: Start: 08-12-2020 BASIC METABOLIC PANEL W/ REFLEX TO MG FOR LOW K Louise Susie Work Phone: Start: 08-12-2020 Blood count complete auto&auto difrntl wbc Louise Susie Work Phone: Start: 08-11-2020 Blood count hemoglobin Louise Susie Work Phone: Start: 08-11-2020 Assay of phosphorus inorganic Louise Eape n Work Phone: Start: 08-11-2020 BASIC METABOLIC PANEL W/ REFLEX TO MG FOR LOW K Louise Susie Work Phone: Start: 08-11-2020 Blood count complete auto&auto difrntl wbc Louise Susie Work Phone: Start: 08-10-2020 [facility] ENDOSCOPY REPORT 3m Scanning Start: 08-10-2020 Potassium serum plasma/whole blood Ranulfo Jamey NicholasBranham Work Phone: Start: 08-10-2020 Assay of phosphorus inorganic Louise Eape n Work Phone: Start: 08-10-2020 BASIC METABOLIC PANEL W/ REFLEX TO MG FOR LOW K Louise Richards Work Phone: Start: 08-10-2020 Blood count complete auto&auto difrntl wbc Louise Richards Work Phone: Start: 08-09-2020 OPERATIVE REPORT 3m Scanning Start: 08-09-2020 Radiologic exam abdomen 1 view Louise Hunt en Work Phone: Start: 08-09-2020 Level iv surg pathology gross&microscopic exam Spencer Veliz Fondmiroslava Work Phone: Start: 07-01-2020 Basic metabolic panel [...] Blood count complete auto&auto difrntl wbc Luiz Jamey Franklin Work Phone: Start: 06-28-2020 OPERATIVE REPORT 3m Scanning Start: 06-28-2020 Level iv surg pathology gross&microscopic exam Spencer Fonseca Work Phone: Start: 06-28-2020 [facility] STUDIO 3 [...] Urnls dip stick/tablet rgnt auto w/o microscopy Emre Garg Work Phone: Start: 06-26-2020 CT Abdomen and Pelvis W contrast IV Adin Gabriela Darliniriszelda Work Phone: Start: 06-26-2020 Assay of lactate Adin Gabriela Cristine Work Phone: Start: 06-26-2020 Assay of lipase Adin Gabriela Cristine Work Phone: Start: 06-26-2020 Blood count complete auto&auto difrntl wbc Adin D Darliniriszelda Work Phone: Start: 06-26-2020 Comprehensive metabolic panel Adin peres Work Phone: Start: 05-10-2020 Mri abdomen w/o & w/contrast material Misha Henderson Work Phone: Start: 05-10-2020 Blood count complete automated Rosendo Mikayla meléndez Work Phone: Start: 05-09-2020 Assay of lactate [...] tomography of abdomen and pelvis with contrast Edel Oalkey Work Phone: Start: 05-08-2020 Urnls dip stick/tablet rgnt auto w/o microscopy Joyce Fernandez Work Phone: Start: 05-08-2020 Assay of lactate Edel Oakley Work Phone: Start: 05-08-2020 Assay of lipase Edel Oakley Work Phone: Start: 05-08-2020 Basic metabolic panel calcium total Edel Oakley Work Phone: Start: 05-08-2020 Blood count complete auto&auto difrntl wbc Edel Oakley Work Phone: Start: 05-08-2020 Hepatic function panel Edel Oakley Work Phone: Start: 04-28-2020 Blood count complete auto&auto difrntl wbc Rosendo Wild Work Phone: Start: 04-28-2020 Blood count complete automated Rosendo Loyola Work Phone: Start: 04-27-2020 Computed tomography of abdomen and pelvis with contrast Tosha Diez Work Phone: Start: 04-27-2020 Assay of lactate Rommel Scot Work Phone: Start: 04-27-2020 C-reactive protein Tosha Diez Work Phone: Start: 04-27-2020 Urnls dip stick/tablet rgnt auto w/o microscopy Tosha Diez Work Phone: Start: 04-27-2020 Sedimentation rate rbc automated Tosha Diez Work Phone: Start: 04-27-2020 ADD ON LAB TEST Tosha Diez Work Phone: Start: 04-27-2020 Blood count complete auto&auto difrntl wbc Rosendo Wild Work Phone: Start: 04-27-2020 C-reactive protein Rosendo Wild Work Phone: Start: 10-21-2019 Urnls dip stick/tablet rgnt auto w/o microscopy Winston Jefferson DO Work Phone: Start: 10-21-2019 BLOOD OCCULT STOOL SCREEN #1 Winston Elaine bash DO Work Phone: Start: 10-21-2019 Comprehensive metabolic panel Winston medina DO Work Phone: Start: 10-19-2019 Urnls dip stick/tablet rgnt auto w/o microscopy Roberto Arcos MD Work Phone: Start: 10-19-2019 Assay of lactate Roberto Arcos MD Work Phone: Start: 10-19-2019 Comprehensive metabolic panel Roberto alcantara MD Work Phone: Start: 10-18-2019 Ct head/brain w/o contrast material Yulissa Mcmahon MD Work Phone: Start: 10-18-2019 Urnls dip stick/tablet rgnt auto w/o microscopy Perez Hernandez MD Work Phone: Start: 10-18-2019 Ecg routine ecg w/least 12 lds w/i&r Yulissa Mcmahon MD Work Phone: Start: 10-18-2019 Comprehensive [...] 08-07-2019 Blood count complete auto&auto difrntl wbc Edel Louis Work Phone: Start: 08-07-2019 C-reactive protein Edel Louis Work Phone: Start: 08-07-2019 Comprehensive metabolic panel Edel Ni Sc hemm Work Phone: Start: 08-07-2019 Sedimentation rate rbc automated Edel Louis Work Phone: Start: 08-06-2019 Blood count complete auto&auto difrntl wbc Aaliyah Farley Work Phone: Start: 08-06-2019 C-reactive protein Bulmaro Jerez Work Phone: Start: 08-06-2019 Sedimentation rate rbc automated Bulmaro Leearizelda Work Phone: Start: 07-29-2019 Blood count complete auto&auto difrntl wbc Deidre Ruano Work Phone: Start: 07-28-2019 Inf agent det nucleic acid clostridium amp probe Bobshamar Molinag Work Phone: Start: 07-28-2019 Blood count complete auto&auto difrntl wbc Deidre Pastvenkatsa Work Phone: Start: 07-25-2019 Blood count complete auto&auto difrntl wbc Sophia Nam Work Phone: Start: 07-24-2019 Mri abdomen w/o [...] Treatment Date Care Activity Detail Author Start: 11-24-2022 [facility] Start: 11-23-2022 [facility] Start: 07-01-2021 Creatinine measurement Creatinine monitoring [facility] [place] [place] Start: 07-01-2021 Potassium monitoring Potassium monitoring [facility] [place] Start: 05-09-2021 Creatinine measurement Creatinine monitoring [facility] [place] Start: 05-09-2021 Potassium monitoring Potassium monitoring [facility] [place] Start: 04-27-2021 Creatinine measurement Creatinine monitoring [facility] [place] Start: 04-27-2021 Potassium monitoring Potassium monitoring [facility] [place] Start: 11-30-2020 End: 11-30-2020 Office Visit 11/30/2020 Office Visit Colon and Rectal Surgery Spencer Fonseca MD [address] [place] [address] [phone] [facility] Start: 11-17-2020 End: 11-17-2020 Appointment 11/17/2020 Appointment General Surgery Spencer Fonseca MD [address] [place] [address] [phone] [facility] General Surgery Start: 10-19-2020 Creatinine monitoring Creatinine [...] Coburn MD [address] [place] [address] [phone] [facility] [address] End[address] Start: 08-07-2020 Creatinine monitoring Creatinine monitoring [facility] [place] [facility] [place] Start: 08-07-2020 Potassium monitoring Potassium monitoring [facility] [place] Start: 08-06-2020 Creatinine monitoring Creatinine monitoring [facility] [place] [facility] [place] Start: 08-06-2020 Potassium monitoring Potassium monitoring [facility] [place] Start: 07-29-2020 Creatinine monitoring Creatinine monitoring [place] Start: 07-29-2020 Potassium monitoring Potassium monitoring [place], [place] Start: 07-25-2020 Creatinine monitoring Creatinine monitoring [place] Start: 07-25-2020 Potassium monitoring Potassium monitoring [place], [place] Start: 07-20-2020 DTaP/Tdap/Td vaccine (9 - Td) DTaP/Tdap/Td vaccine (9 - Td) [place], [place] Start: 05-31-2020 Influenza vaccination Flu vaccine (#1) [place], [place] Start: 05-31-2020 End: 05-31-2020 Virtual Visit 05/31/2020 Virtual Visit Gastroenterology Arielle Coburn MD [address] [place] [address] [phone] [facility] Start: 11-06-2019 End: 11-06-2019 Patient encounter procedure 11/06/2019 Office Visit Pain Management Brittnee Farley MD [address] [place], [place] [id number] Pain Medicine Start: 11-03-2019 End: 11-03-2019 Patient encounter procedure 11/03/2019 Office Visit Gastroenterology Arielle Coburn MD [address] [place] [address] [phone] [facility] Start: 10-23-2019 End: 10-23-2019 Patient encounter procedure 10/23/2019 Office Visit Family Medicine Dawson Mackey LISW [address] [place], [place] [id number] [facility] Family Medicine Start: 09-15-2019 End: 09-15-2019 Office Visit 09/15/2019 Office Visit Gastroenterology Arielle Coburn MD [address] [place] [address] [phone] [facility] Start: 05-31-2019 Influenza vaccination Flu vaccine (#1) [place] Start: 03-22-2019 Annual Wellness Visit (AWV) Annual Wellness Visit (AWV) [place] Start: 02-28-2019 DTaP/Tdap/Td vaccine (7 - Td) DTaP/Tdap/Td vaccine (7 - Td) [place] Start: 2005 HIV screen HIV screen [place] Start: 2005 HIV screening HIV screen [place] Start: 2003 Varicella Vaccine (1 of 2 - 13+ 2-dose series) Varicella Vaccine (1 of 2 - 13+ 2-dose series) [place] Start: 01-02-1996 Pneumococcal 0-64 years Vaccine (1 of 1 - PPSV23) Pneumococcal 0-64 years Vaccine (1 of 1 - PPSV23) [place] Start: 1991 Varicella Vaccine (1 of 2 - 2-dose childhood series) Varicella Vaccine (1 of 2 - 2-dose childhood series) [place] Acapella Acapella Respira tory Care Routine Now Then Every 1hr until discontinued starting 08/09/2020 [place] Comment on above: Now Then Every 1hr until discontinued st arting 08/09/2020 Basic metabolic 2000 panel Basic Metabolic Panel Lab Routine Daily until discontinued starting 06/27/2020, 5 completed [place] Comment on above: Daily until discontinued starting 2019, 5 completed Basic Metabolic Pane l w/ Reflex to MG Basic Metabolic Panel w/ Reflex to MG Lab Routine Daily until discontinued starting 08/10/2020, 6 completed [place] Comment on above: Daily until discontinued starting 2019, 6 completed End: 04-30-2020 CBC CBC Lab Routine Tomorrow AM for 3 Occurrences starting 04/28/2020 until 04/30/2020, 1 completed [place] Comment on above: Tomorrow AM for 3 Occurrences starting 0 04/28/2020 until 04/30/2020, 1 completed CBC WITH AUTO DIFFERENTIAL [place] Comment on above: Daily until discontinued starting 2019, 5 completed Daily until disconti nued starting 08/10/2020, 6 completed Daily until disconti nued starting 07/28/2019, 2 completed End: 04-29-2020 Comprehensive Metabolic Panel w/ Reflex to MG Comprehensive Metabolic Panel w/ Reflex to MG Lab Routine Tomorrow AM for 3 Occurrences starting 04/27/2020 until 04/29/2020, [facility] above: Tomorrow AM for 3 Occurrences starting 0 04/27/2020 until 04/29/2020, 2 completed Comprehensive Metabolic Panel w/ Reflex to MG Comprehensive Metabolic Panel w/ Reflex to MG Lab Routine Daily until discontinued starting 07/28/2019, 2 [facility] Comment on above: Daily until discontinued starting 2018, 2 completed EKG 12 Lead EKG 12 Lead ECG Routine 10/18/2019 7:44 PM EST SH[facility] Work Phone: End: 04-28-2020 Hep B DNA PCR Quant Hep B DNA PCR Quant Lab Routine One Time for 1 Occurrences starting 04/28/2020 until 04/28/2020 [facility] Comment on above: One Time for 1 Occurrences starting 04/01 until 04/28/2020 Initiate Oxygen Therapy Protocol [facility] Comment on above: Daily until discontinued starting 2018 Daily until disconti nued starting 07/24/2019 Daily until disconti nued starting 07/27/2019 Nebulizer therapy HHN Treatment Respiratory Care Routine Every 6hr until discontinued starting 08/10/2020 [facility] Comment on above: Every 6hr until discontinued starting [facility] Comment on above: Daily until discontinued starting 2019 Daily until disconti nued starting 04/27/2020 Oxygen therapy [Minimum Data Set] [facility] [place] Comment on above: Daily until discontinued starting 2019 Daily until disconti nued starting 08/09/2020 Patient Education [facility] Work Phone: Patient referral [facility] Work Phone: End: 04-28-2020 QUANTIFERON (R) TB GOLD, (INCUBATED) QUANTIFERON (R) TB GOLD, (INCUBATED) Microbiology Routine One Time for 1 Occurrences starting 04/28/2020 until 04/28/2020 [place] Comment on above: One Time for 1 Occurrences starting 04/01 until 04/28/2020 Spirometry panel Incentive telma metry Respiratory Care Routine Every 2hr while awake until discontinued starting 06/26/2020 [place] Comment on above: Every 2hr while awake until discontinued starting 06/26/2020 End: 06-28-2020 Wound ostomy eval Wound ostomy eval Wound Ostomy Routine One Time for 1 Occurrences starting 06/28/2020 until 06/28/2020 [place] Comment on above: One Time for 1 Occurrences starting 06/01 until 06/28/2020 End: 08-09-2020 Wound ostomy eval and treat Wound ostomy eval and treat Wound Ostomy Routine One Time for 1 Occurrences starting 08/09/2020 until 08/09/2020 [place] Comment on above: One Time for 1 Occurrences starting 07/31 until 08/09/2020 Immunizations Immunization Date Immunization Notes Care Provider Ervin torres 07-29-2019 influenza, injectable, quadrivalent, preservative free [place], [place] 07-28-2019 influenza quadrivalent split vaccine (FLUZONE;FLUARIX;FLUL AVAL;AFLURIA) injection 0.5 mL [place] 10-02-2018 Influenza virus vaccine [facility] 05-31-2018 influenza virus vaccine, unspecified formulation Nicolás Maya [facility], [place] 07-20-2010 tetanus toxoid, reduced diphtheria toxoid, and acellular pertussis vaccine, adsorbed CYNTHIA MURPHY MD [facility] 05-17-2006 tetanus toxoid, reduced diphtheria toxoid, and acellular pertussis vaccine, adsorbed CYNTHIA MURPHY MD [facility] 11-25-2001 hepatitis B pediatri c vaccine CYNTHIA MURPHY MD [facility] 05-05-2001 hepatitis B pediatri c vaccine CYNTHIA MURPHY MD [facility] 04-04-2001 hepatitis B pediatri c vaccine CYNTHIA MURPHY MD Stefan Contreras [facility] Samuel NEGATED: Highlighted row has not occurred!12-05-2018 tuberculin skin test; purified protein derivative solution, intradermal Nicolás Maya [place] Payers Date Payer Category Payer Self-pay [id number] 2023 Unknown [id number] 2020 Medicare MEDICARE MEDICAR E PART A AND B [id number] 2020-Present [phone] [address] [address] [place] [address] [id number] 2016 Unknown [employer] [place] [facility] xxxxxxxxxxx 2016-Present [address] [place] [address] xxxxxxxxxxx [id number] 2016 Unknown [employer] [place] [facility] [id number] 2016-Present [address] [place] [address] [id number] 2014 Unknown [id number] 1990 Unknown [id number] 1990 Unknown [id number] 1990 Unknown [id number] Medicare [id number] Unknown [id number] Unknown [id number] Unknown [id number] Social History Date Type Detail Facility Start: 11-18-2008 End: 10-21-2019 Tobacco smoking status NHIS Current every day sm[place] Start: 05-11-2019 End: 10-21-2019 Cigarettes smoked current (pack per day) - Reported [place] Start: 05-11-2019 End: 07-27-2019 Alcohol intake Not Currently [place] Start: 11-18-2018 Alcohol Comment Last drinking was on 07/02/2018. no he ETOH [place] Sex Assigned At Not on file [place] Start: 08-05-2019 End: 10-21-2019 Alcohol intake Ex-drinker (finding) [facility] Start: 11-18-2008 History of tobacco use Smoker [place] Start: 05-08-2020 End: 08-09-2020 Tobacco use and exposure Never used [place] Exposure to SARS-CoV -2 (event) Not sure [place] Start: 08-09-2020 End: 08-10-2020 Alcohol intake Current drinker of alcohol (finding) [place] Start: 08-09-2020 Alcohol Comment monthly [place] Start: 11-10-2020 Tobacco Comment five cigs a day [facility] Work Phone: Start: 11-10-2020 Alcohol Comment rare 3-4 shots a sat [facility] Work Phone: Start: 11-18-2018 Alcohol Comment Last drinking was on 07/02/2018. no he ETOH [facility] Work Phone: Start: 02-01-2022 End: 11-24-2022 Tobacco smoking status NHIS Unknown if ever smoked [facility] Start: 06-25-2020 None [facility] Start: 06-25-2020 Spouse/ Signif icant Other [facility] Start: 06-25-2020 Cigarettes [facility] Start: 1990 Sex Assigned At Male [facility] Start: 10-30-2019 Tobacco smoking status Heavy t obacco smoker (finding) [facility] Comment on above: Daily Tobacco/Smoke Exposure Functional Status Date Assessment Result Facility 09-06-2023 Functional Status Independent [facility] 09-06-2023 Functional Status Environmental Safety Implemented Adequate room lighting, Bed in low position, Call device within reach [facility] 09-06-2023 Functional Status Standard Safet y ID band on, Call device within reach, Bed in low position, Wheels locked, Visitor at bedside [facility] Mental Status Date Assessment Result Facility 09-06-2023 Mental Status Orientation Oriented x 4 [facility] 09-06-[address] [facility] 11-24-2022 Cognitive function Voice/Name [facility] Work Phone: Clinical Notes 10-19-2019 to 09-06-2023 Note Date & Type Note Facility 09-06-2023 [...] foods again, start with small amounts of ivap-wu-bpmkfy, low-fat foods. These include apple sauce, toast, [...] increase stomach acid. Don't use aspirin or bwro-dgi-jdsozcp pain and fever medicines, if possible. This includes nonsteroidal anti-inflammatory drugs (NSAIDs). Lose excess weight. Finish eating at least 2 hours before you go to bed or lie down. Raise the head of your bed. 5319-6327 [facility]. [address] [place] [address]. All rights reserved. This information is not [...] check with your pharmacist before using any deoa-cjq-dsyizdw medicines (OTCs), including herbal supplements. Some OTCs may interact with your anti-anxiety medications and increase or decrease their effectiveness. [phone] [facility]. [address] [place] [address]. All rights reserved. This information is not [...] teach you skills to help manage anxiety extermination inspector. But change doesn t happen right away. [...] make things worse in the long run. 0533-9117 [facility]. [address] [place] [address], [place] [address]. All rights reserved. This information is not intended as a substitute for professional medical care. Always follow your healthcare professional's instructions. Follow Up Care 09/06/2023 15:15:33 With:USHA FRAZIER DO Address: [place] [address]- [phone] When:2-4 days [facility] 09-06-2023 Note Discharge Instructions Thank you for allowing [facility] to assist you with your healthcare needs. [...] DO When Within 2-4 days Where: [address] [facility] [place] [address]- [phone] Allergies Compazine (Muscle spasm) Mushrooms (hives) Nyquil [...] foods again, start with small amounts of ipta-ji-jvcgxn, low-fat foods. These include apple sauce, toast, [...] increase stomach acid. Don't use aspirin or ddmq-fgh-gsxuoit pain and fever medicines, if possible. This includes nonsteroidal anti-inflammatory drugs (NSAIDs). Lose excess weight. Finish eating at least 2 hours before you go to bed or lie down. Raise the head of your bed. 9612-2766 [facility]. [address] [place] [address], [place] [address]. All rights reserved. This information is not [...] check with your pharmacist before using any qcmw-def-xrojzej medicines (OTCs), including herbal supplements. Some OTCs may interact with your anti-anxiety medications and increase or decrease their effectiveness. 6046-2953 [facility]. [address] [place] [address], [place] [address]. All rights reserved. This information is not [...] teach you skills to help manage anxiety prison. But change doesn t happen right away. [...] make things worse in the long run. 9082-4092 [facility]. [address] [place] [address], [place] [address]. All rights reserved. This information is not intended as a substitute for professional medical care. Always follow your healthcare professional's instructions. Additional Information VACCINATE! IT SAVES LIVES! Members of the community who have not yet received the COVID-19 vaccine and would like to receive it can visit one of [facility] vaccine clinics. There are many vaccine clinic locations within the [facility]. For locations and available times, please visit [email or web address] It is important to note that some COVID mobile vaccine clinics are held outdoors and may be canceled in rainy or stormy conditions. To learn more about pediatric vaccinations (ages 5-11), we invite you to visit the [facility] webpage. [email or web address] To learn more about the COVID-19 vaccine, we invite you to visit the CDC website for a list of frequently asked questions. https://www.cdc.gov/coronavirus/ 2019-ncov/vaccines/faq.html [facility] Patient Portal Access Instructions: Stay connected with your healthcare team and access your personal medical information anytime with the [facility] Patient Portal. If you would like a full copy of your medical records please contact the [facility] Medical Records Department Saturday through Saturday between 8a.m. and 4:30p.m. Please follow the directions below to access the portal: 1.Access the email account you provided upon registration to the hospital.2.Look for an invitation email from [facility].3.Open the email and access the invitation link: Accept Invitation to [facility].Fill in the required bhatt to create your account. Sign into [email or web address] with your username and password that you [...] you will allow to register on the [facility] Patient Portal for access to your information. You can also access the [facility] Patient Portal on the [employer]. Simply click on Health Records under Health Data and then click on the [facility] logo. HOW TO SAFELY DISPOSE OF PRESCRIPTION [...] Call your local pharmacy or go to [email or web address] to find one close to you.3.Make use of household items: Use cat litter or old coffee grounds to dispose medications if other options are not available. Mix your drugs with these household products, seal them in an airtight container and throw it into the garbage. Call [facility]: [phone] to be sure your drugs can be [...] been reviewed and explained to me and I,RUTHIE CASTILLO understand my current condition and have read and understand these discharge instructions. I have received a written copy of the plan/instructions. If I have questions, I am aware that I should contact my doctor. Patient/Ship Loader Signature: Date/Time: Relationship to Patient: Witness Name/Signature: Date/Time: [facility] 09-06-2023 Note ORIGINAL EXAMINATION: CT OF THE [...] Date: 09/06/2023 8:41:14 PM Ordering Provider: SOPHIA [facility] 09-06-2023 Note ORIGINAL EXAMINATION: ONE XRAY VIEW [...] Date: 09/06/2023 6:20:15 PM Ordering Provider: SOPHIA [facility] 09-06-2023 Note Sinus rhythm Inferior infarct, old Electronic Signature: MD IVONNE, RUTHIE ANDRADE 09/06/2023 18:06:45 [facility] 11-24-2022 Discharge summary Note Date/Time November 24, 2022 5:47pm [facility] Medical Records Department [address] [place] [id number] Emergency Department Summary 11/24/22 MR#: [id number] Acct: [id number] Name: RUTHIE CASTILLO Rep #:[id number] : 1990 32 From: Nito Tapia MD PCP: Dr. Usha Frazier, DO Status:REG E R Location: ED [facility] History of Present Illness Chief Complaint: Chest Pain Narrative Narrative: 32-year-old male past medical history of bipolar disorder, PTSD, Crohn disease, intermittent explosive disorder presents with chest pain, shortness of breath, and right testicular pain. He states he started having symptoms of COVID with shortness of breath on Saturday of last week, 5 days ago. His cousin also testedpositive for COVID. He states he did a home COVID test that was positive, then later on in the day 1 that was negative. He went to [facility] yesterday, where he states he tested positive again. He began having right testicular painthat squeezes and then releases for a few seconds, up to a minute. He denies any dysuria or hematuria. He does state that there is a cyst on his right testicle that they found, but did not want to drain or remove because they said it would leave me sterile so he is he reports that the urologist sewed me back up and left it. Symptoms of testicular pain began yesterday evening. He had a complete work-up at the outside facility, but was told to return should his symptoms worsen. He states that he feels more short of breath, and was having chest pain also since his release. Additionally, he states that he has numbness and tingling of his hands and feet bilaterally. He presents for reevaluation of his COVID-19 status, and for his testicular pain on the right. [facility] Medical History Bipolar disorder Hemorrhoids IBS (irritable bowel syndrome) PTSD (post-traumatic stress disorder) Testicular cyst Home Medications Acetaminophen 1,500 mg PO DAILY@1030 PAIN 11/24/19 [History Last Taken 06/24/20] hydrocodone-acetaminophen 5-325mg 5mg-325mg 1 tab PO Q6H PRN PRN Pain 3 days #10TABLETS 10/29/21 [Rx Last Taken Unknown] hydrocodone-acetaminophen 5-325mg 5mg-325mg 1 tab PO Q6H PRN PRN Pain 3 days #10TABLETS 03/29/22 [Rx Last Taken Unknown] naproxen 500 mg tablet 500 mg PO BID #10 tabs 03/29/22 [Rx Last Taken Unknown] Allergy/AdvReac Type Severity Reaction Status Date / Time dextromethorphan HBr Allergy Anaphylaxis Verified 11/24/22 17:18 [From NyQuil] doxylamine [From NyQuil] Allergy Anaphylaxis Verified 11/24/22 17:18 hornet venom Allergy Anaphylaxis Verified 11/24/22 17:18 mushroom [mushrooms] Allergy Anaphylaxis Verified 11/24/22 17:18 poison mimi extract Allergy Anaphylaxis Verified 11/24/22 17:18 [Poison Mimi Extract] pseudoephedrine HCl Allergy Anaphylaxis Verified 11/24/22 17:18 [From NyQuil] venom-honey bee Allergy Anaphylaxis Verified 11/24/22 17:18 [bee venom (honey bee)] Family History Other Ulcerative colitis Surgical History History of partial colectomy Social History household members: spouse and children Smoking Status: Current every day smoker tobacco type: cigarettes substance use type: does not use ROS ROS ED ROS Narrative Constitutional: No fever, no chills. HEENT: No sore throat. No neck pain. No loss of vision. No rhinorrhea. Cardiovascular: Positive chest pain. No palpitations. No pedal edema. Respiratory: No cough, positive shortness of breath. Abdominal: No abdominal pain. No nausea. No vomiting. Genitourinary: No dysuria. No hematuria. Right testicular pain and squeezing. Musculoskeletal: No myalgias. No arthralgias. Neurologic: No headaches. No dizziness. No lightheadedness. Paresthesias of hands and feet bilaterally. Skin: No rash. No change in color. Psychiatric: No depression. No anxiety. EXAM Physical Exam Narrative Exam Narrative: Afebrile. Vital signs noted. HEENT: Normocephalic. Atraumatic. PERRL, EOMI. Neck soft and supple. No pointtenderness or step off. Cardiovascular: Regular rate and rhythm. No murmurs, rubs, or gallops appreciated. Respiratory: No tachypnea. Lungs clear to auscultation bilaterally. Gastrointestinal: Abdomen soft, nontender, with normoactive bowel sounds. No rebound or guarding. Large midline abdominal scar noted in pannus. Genitourinary: Inspection of the right testicle does reveal a right testicular cyst but no erythema, normal lie of testicle. Neurological: Awake. Alert. Nonfocal, nonlateralizing. Skin: No rash. Normal color. No pallor. Musculoskeletal: No pedal edema. Full range of motion extremities. Const Vital Signs: 11/24/22 17:14 11/24/22 17:20 11/24/22 17:22 Temperature 98.5 F Temperature Source Oral Pulse Rate 73 65 Respiratory Rate 26 H 21 H Respiratory Effort Normal Non-Labored Blood Pressure 145/91 H 145/91 H Blood Pressure Mean 109 109 Pulse Ox 96 97 Oxygen Delivery Method Room Air Room Air 11/24/22 17:22 11/24/22 18:31 11/24/22 19:17 Temperature 98.5 F 98.2 F Temperature Source Oral Oral Pulse Rate 70 68 56 L Respiratory Rate 15 12 15 Respiratory Effort Blood Pressure 145/91 H 156/92 H 149/95 H Blood Pressure Mean 109 113 113 Pulse Ox 96 97 95 Oxygen Delivery Method Room Air Room Air Room Air MDM MDM MDM Narrative Medical decision making narrative: Given his right testicular cyst with reported pain, concern would be for intermittent torsion. Given his COVID-19 status that was reported positive,'s pulse ox is 97% on room air without evidence of hypoxia. For his chest pain I will obtain laboratory work in the form of CBC, BMP and troponin. Chest x-ray will also be obtained to rule out interstitial, bilateral pneumonia or multifocal pneumonia consistent with COVID. Treatment will remain supportive for his COVID regardless, as he is actually on day 5 of his COVID-positive status. EKG was obtained and interpreted by myself which demonstrates normal sinus rhythm at 57 bpm without ectopy or acute ST changes. No STEMI. It is bradycardic. I reviewed his laboratory work and he has a normal white count of 4.4, hemoglobin stable at 15.8, platelet count normal at 195. Potassium is slightly low at 3.3 which was replaced orally. Urinalysis shows no evidence of infection. I do not feel antibiotics are indicated. He may be slightly dehydrated with 15 ketones. Chest x-ray in 1 view interpreted by myself shows no evidence of multifocal pneumonia, no acute process. I reviewed the radiologyreport which confirms this. I also reviewed the radiology report on his ultrasound of his right testicles, and he does have bilateral cysts in the epididymis right greater than left, but there is good flow to the testicles. Noevidence of torsion. At this point in time, I am unsure to the etiology of his chest pain as he has a normal EKG and his high-sensitivity troponin is 8, which is greater than a 6-hour troponin. His chest x-ray is clear. I do feel that some of his symptoms may be related to his COVID-19 positive status. I do not feel that he requires admission or supplemental oxygen as his pulse ox is normalon room air here. He was reassured. I feel he can be discharged safely home with follow-up. Return instructions to the emergency department were reviewed. Disposition is discharged home in stable condition. Lab Data Attestation: I reviewed the patient's lab results. Labs: Laboratory Results - last 24 hr 11/24/22 11/24/22 11/24/22 17:50 17:50 18:19 WBC 4.4 RBC 5.45 Hgb 15.8 Hct 47.8 MCV 87.7 MCH 29.0 MCHC 33.1 RDW Std Deviation 42.5 RDW Coeff of Bre 13.3 Plt Count 195 MPV 10.8 Immature Gran % (Auto) 0.900 Neut % (Auto) 73.1 H Lymph % (Auto) 14.0 L [place] % (Auto) 9.7 Eos % (Auto) 1.8 Baso % (Auto) 0.5 Absolute Neuts (auto) 3.3 Absolute Lymphs (auto) 0.62 L Nucleated RBC % 0 Sodium 138 Potassium 3.3 L Chloride 106 Carbon Dioxide 25.0 Anion Gap 7 BUN 17 Creatinine 0.99 Estim Creat Clear Calc 117.58 Est GFR (MDRD) Af Amer 112 Est GFR (MDRD) Non-Af 93 BUN/Creatinine Ratio 17.2 Glucose 116 H Calcium 8.7 Troponin I High Sens 8 Urine Color Yellow Urine Clarity Clear Urine pH 5.0 Ur Specific [place] 1.025 Urine Protein 30 H Urine Glucose (UA) Normal Urine Ketones 15 H Urine Occult Blood 10 H Urine Nitrite Negative Urine Bilirubin Negative Urine Urobilinogen Normal Ur Leukocyte Esterase Negative Urine RBC 0-5 SEEN Urine WBC 0-5 SEEN Ur Squamous Epith Cells 0 SEEN Urine Bacteria 0 SEEN Urine Mucus 0 SEEN Radiography Diagnostic Testing: Clinical Impression(s) from Imaging Studies Testicular Ultrasound 11/24/22 17:39 IMPRESSION: 1. Left varicocele. 2. Small left hydrocele. 3. Bilateral epididymal head cysts, right greater than left. 4. Normal testicles. Electronically Signed: Keith Hope DO at 19:23 EST Reading Location ID and State: [address] [place] [address] Tel [phone], Service support , Chest X-Ray 11/24/22 18:02 IMPRESSION: No acute cardiopulmonary disease or interval change. Electronically Signed: Keith Hope DO at 19:05 EST Reading Location ID and State: [address] [place] [address] Tel [phone], Service support , Discharge Plan Triage Chief Complaint: Chest Pain ED Provider: Nito Tapia Dx/Rx/DC Orders Clinical Impression: COVID, Pain in right testicle, Paresthesia of hand, bilateral, Chest pain Instructions: Coronavirus Disease 2019 (COVID-19): Caring for Yourself or Others, ED Chest Pain, Uncertain Cause, ED Paraesthesias, ED Testicular Pain, Unclear Cause Prescriptions: No Action Acetaminophen 500 MG tablet 1,500 mg PO DAILY@1030 hydrocodone-acetaminophen [hydrocodone-acetaminophen] 1 TABLET tablet 1 tab PO Q6H PRN PRN (Reason: Pain) 3 Days Qty: 10 0RF hydrocodone-acetaminophen [hydrocodone-acetaminophen] 5-325 mg tablet 1 tab PO Q6H PRN PRN (Reason: Pain) 3 Days Qty: 10 0RF naproxen 500 mg tablet 500 mg PO BID Qty: 10 0RF Primary Care Provider: Usha Frazier Referrals: Usha Frazier DO [Primary Care Provider] - 1 Week if not improving Disposition Disposition: Home, Self Care What to do if you have Problems For any increased pain, shortness of breath, bleeding, nausea or vomiting, chestpain, or any unexpected problems, contact your Primary Care Provider. Call [facility] ([phone]) or report to the closest Emergency Room. Call 911 if necessary. 11/24/221939 <Electronically signed by Nito Tapia MD> Cosigner Signature (if applicable): CC: Dr. Usha Frazier, DO ~ Signed [facility] Work Phone: [phone] 200-394403-01-2021 NoteDischarge Summary Ruthie Castillo : 1990 ADMIT DATE: 11/17/2020 DISCHARGE DATE: 11/28/20 ATTENDING PHYSICIAN: Sepncer Fonseca MD CODE STATUS: Full Code DISCHARGE DIAGNOSES: Active Problems: History of colostomy reversal Resolved Problems: * No resolved hospital problems. * HOSPITAL COURSE: Ruthie Castillo is a 30 y.o. male who presented to [facility] on 11/17/2020 for loop ileostomy reversal. The [...] n/a SIGNIFICANT DIAGNOSTIC STUDIES: n/a DISCHARGE MEDICATIONS: Ruthie Castillo Home Medication Instructions WILSON:[id number] Printed on:11/28/20 1311 Medication Information acetaminophen (TYLENOL) [...] weeks SIGNED: Kati Hills MD 11/28/2020, 1:11 [facility]01-20-2020 Hospital Discharge instructions* Instructions* Stefany Taylor PA - 10/19/2019 Fill all prescriptions that you received at the previous 2 emergency department visits. Follow the prescriptions as directed. Call pain management clinic to schedule an appointment for this week. Call Dr. Coburn for a follow-up appointment this week as well. Return to the emergency department if pain gets worse, fever, shortness of breath. * Attachments The following attachments cannot be sent through Care Everywhere. * Crohn's Disease (Pakistani) documented in this [facility] Work Phone: Evaluation + Plan note No data available for this section [facility] Evaluation note* Diagnosis Right lower quadrant abdominal pain- Primary Abdominal pain, right lower quadrant documented in this encounter [facility] Work Phone: Evaluation note* Diagnosis Generalized abdominal pain- Primary Abdominal pain, generalized Essential hypertension Unspecified essential hypertension documented in this encounter [facility] Work Phone: Evaluation note* Diagnosis Right lower quadrant abdominal pain- Primary Abdominal pain, right lower quadrant Crohn's colitis, unspecified complication (HCC) documented in this encounter [facility] Work Phone: Evaluation note* Diagnosis Chronic abdominal pain- Primary Abdominal pain, unspecified site documented in this encounter [facility] Work Phone: Evaluation noteNo assessment information available [facility] Work Phone: Hospital Discharge instructions* Attachments The following attachments cannot be sent through Care Everywhere. * Abdominal Pain (Pakistani) * Crohn's Disease (Pakistani) documented in this [facility] Work Phone: Hospital Discharge instructions* Attachments The following attachments cannot be sent through Care Everywhere. * Abdominal Pain (Pakistani) documented in this [facility] Work Phone: Hospital Discharge instructions* Attachments The following attachments cannot be sent through Care Everywhere. 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 Advance Directives and Living Will Power of Landscaping Specialist Latest Code Status on File Code Status [...] Documents on File Type Date Recorded 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 ACP-Advance Directive ACP-Power of Landscaping Specialist Latest Code Status on File Code Status [...] Documents on File Type Date Recorded 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 Advance Directives and Living Will Power of Landscaping Specialist Latest Code Status on File Code Status Date Activated Date Inactivated Comments Full Code 08/05/2019 6:09 AM 08/08/2019 3:10 PM Full Code 07/27/2019 6:50 PM 07/29/2019 6:40 PM Full Code 07/24/2019 9:29 AM 07/25/2019 6:15 PM Full Code 01/27/2019 1:18 AM 01/27/2019 1:46 PM Full Code 12/28/2018 2:55 AM 12/28/2018 2:52 PM Advance Directive Response Recorded Date/ Time Advance Directives No November 07, 2016 7:50am Living Will No February 01, 2022 2: 41pm Power of Landscaping Specialist No February 01, 2022 2:41pm Advance Directive Response Recorded Date/ Time Advance Directives No November 07, 2016 7:50am Living Will No March 29, 2022 11:48am Power of Landscaping Specialist No March 29 2 11:48am Advance Directive Response Recorded Date/ Time Advance Directives No November 07, 2016 6:50am Living Will No March 29, 2022 10:48am Power of Landscaping Specialist No March 29 2 10:48am Advance Directive Response Recorded Date/ Time Advance Directives No November 07, 2016 6:50am Living Will No November 24, 023 5:20pm Power of Landscaping Specialist No November 24, 2022 5:20pm Discharge Instructions * Attachments The following attachments cannot be sent through Care Everywhere. * Abdominal Pain (Pakistani) documented in this encounter* Attachments The following attachments cannot be sent through Care Everywhere. * Abdominal Pain (Pakistani) * Crohn's Disease (Pakistani) documented in this encounter* Attachments The following attachments cannot be sent through Care Everywhere. * prednisone (Pakistani) * ciprofloxacin (oral) (Pakistani) * quetiapine (Pakistani) * metronidazole (Pakistani) * oxycodone (Pakistani) documented in this encounter* Instructions* Benedict Stevens DO - 08/17/2019 Increase fluids. Rest. Return if any problems or concerns. Follow-up with your doctor tomorrow. Called today for appointment * Attachments The following attachments cannot be sent through Care Everywhere. * Viral Infections (Pakistani) * Diarrhea (Pakistani) * Nausea and Vomiting (Pakistani) documented in this encounter* Instructions* Deidre Ruano [...] be sent through Care Everywhere. * Diverticulitis (Pakistani) documented in this encounter* Instructions* Andreina Hough [...] sent through Care Everywhere. * Abdominal Pain (Pakistani) documented in this encounter* Discharge Instr - Lab* Ivania Agudelo RN - 08/11/2020 4:27 PM EST Your physician has ordered skilled home care services for you. Your home care will be provided by: [facility] [phone] * Additional Instructions* Louise Richards MD - [...] sent through Care Everywhere. * Colostomy: Post-op (Pakistani) * Ostomy Care (Pakistani) * Ostomy Diet (Pakistani) * Abdominal Pain (Pakistani) * Wound: VAC (Vacuum-Assisted Closure) (Pakistani) documented in this encounter* Attachments The following attachments cannot be sent through Care Everywhere. * Abdominal Pain (Pakistani) * Wound Check (Pakistani) documented in this encounter* Attachments The following attachments cannot be sent through Care Everywhere. * Abdominal Pain (Pakistani) documented in this encounter* Instructions* Andreina Page APRN - [facility] - 10/30/[address] Fonseca. * Attachments The following attachments cannot be sent through Care Everywhere. * Abdominal Pain (Pakistani) documented in this encounter* Instructions* Ayanna Meredith [...] FIVE DAYS PRIOR TO SURGERY Additional instructions: [facility] shower kit and instructions given to patient. [...] Care Everywhere. * Ostomy Reversal: General Info (Pakistani) documented in this encounter* Instructions* Alanis Meeks [facility] - 07/29/2019 prednisone Pronunciation: MATTHEW [...] expected to produce life threatening symptoms. However, prison use of high steroid doses can lead [...] may report side effects to FDA at [phone]-GRO-9856. What other drugs will affect prednisone? Many drugs can interact with prednisone. Not all possible interactions are listed here. Tell your doctor about all your medications and any you start or stop using during treatment with prednisone, especially: amphotericin B; cyclosporine; digoxin, digitalis; [place]'s wort; an antibiotic such as clarithromycin or telithromycin; antifungal medication such as itraconazole, ketoconazole, posaconazole, voriconazole; control pills and other hormones; a blood thinner such as warfarin, Coumadin; a diuretic or water pill; the hepatitis C medications boceprevir or telaprevir; [...] interact with prednisone. This includes prescription and plmt-nuo-vchsxxl medicines, vitamins, and herbal products. Give a [...] to ensure that the information provided by [employer]. ('[employer]') is accurate, up-to-date, and complete, but no guarantee is made to that effect. Drug information contained herein may be time sensitive. [employer] information has been compiled for use by healthcare practitioners and consumers in the [place] and therefore [employer] does not warrant that uses outside of the [place] are appropriate, unless specifically indicated otherwise. [employer] drug information does not endorse drugs, diagnose patients or recommend therapy. [employer] drug information isan informational resource designed to [...] effective or appropriate for any given patient. [employer] does not assume any responsibility for any aspect of healthcare administered with the aid of information [employer] provides. The information contained herein is not intended to cover all possible uses, directions, precautions, warnings, drug interactions, allergic reactions, or adverse effects. If you have questions about the drugs you are taking, check with your doctor, nurse or pharmacist. Copyright 5868-6396 [employer]. Version: 9.01. Revision date: 11/12/2012. Care instructions adapted under license by [employer]. If you have questions about a medical condition or this instruction, always ask your healthcare professional. 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 PAST MEDICAL HISTORY Diagnosis Date ADHD Bipolar disorder (HCC) 11/29/2009 Crohn's disease (HCC) Diverticulitis GERD (gastroesophageal reflux disease) IBD (inflammatory bowel disease) 2019 Intermittent explosive disorder Multiple personality disorder (HCC) PTSD (post-traumatic stress disorder) Spermatocele 07/12/2014 PAST SURGICAL HISTORY Procedure Laterality Date COLONOSCOPY 11/12/2018 at [facility] , normal .colonoscopy, by Dr Raffaele Cordero COLONOSCOPY 2015 At [facility] , per pt normal colonscopy FOOT SURGERY 2008 TESTICLE SURGERY 2013 Allergies: Bee venom; Beta adrenergic blockers; Dextromethorphan hbr; Mushroom extract complex; Nyquil hbp cold & flu [[id number]-bbgoreyuud-godbwvqdlngwo]; Dextromethorphan; and Poison mimi extract Medications Prior [...] diaphoretic. No erythema. No pallor. Psychiatric: See [facility] Vitals reviewed. MENTAL STATUS EXAM Mental Status [...] Range: >60 mL/min >60.0 EGFR IF NonAfrican Panamanian Latest Ref Range: >60 mL/min >60.0 Glucose [...] 20.0 - 40.0 % 16.1 (L) Absolute [place] # Latest Ref Range: 0.0 - 0.8 [...] follow up on discharge, counseling center of [facility] would be a good option as he has had care there in the past and is amenable to following up with them. Will follow as able. Please call continuous improvement coordinator psychiatrist if emergent needs arise. * Liliane Burger APRN - PROGRAM MANAGER RN - 08/07/2019 12:13 PM EST 08/07/2019 Referring [...] extract complex; Nyquil hbp cold & flu [[id number]-qdeixkaixl-dhjtvbfccykdw]; Dextromethorphan; and Poison mimi extract Past Medical History: Diagnosis Date ADHD Bipolar disorder (HCC) 11/29/2009 Crohn's disease (HCC) Diverticulitis GERD (gastroesophageal reflux disease) IBD (inflammatory bowel disease) 2019 Intermittent explosive disorder Multiple personality disorder (HCC) PTSD (post-traumatic stress disorder) Spermatocele 07/12/2014 Past Surgical History: Procedure Laterality Date COLONOSCOPY 11/12/2018 at [facility] , normal .colonoscopy, by Dr Raffaele Cordero COLONOSCOPY 2015 At [facility] , per pt normal colonscopy FOOT SURGERY [...] and dry. Nursing note and vitals reviewed. TALENT ACQUISITION SOURCER: None Pain Management Adjuvants: PRN Morphine 2-4 [...] Acute Pain Service is available by pager #[phone] Saturday-Saturday [phone]. For questions oracute issues after hours, please contact hospital electric screw driver operator for name and pager number of the Pain ManagementProvider BROOMCORN SCRAPER. [facility] has agreed to see our patients after they are discharged. Patients should be instructed to call [phone]. Please ask patient to sign a medical release andsend medical records to [facility].They will contact the patient with an appointment time. * Shona Oliver - 08/07/2019 10:21 AM EST Nutrition rescreen completed. Chart reviewed. Patient to be monitored and followed by the diet psychiatric technician. KATHLEEN Sewell * Tigist Chamorro MD [...] reviewed with the patient. CBC: Recent Labs 08/06/1934608/07/19 0508 WBC 16.0* 15.8* RBC 5.57 5.13 HGB 16.0 15.0 HCT 49.0 44.8 MCV 88.0 87.3 MCH 28.7 29.3 MCHC 32.7 33.5 RDW 14.5 14.2 PLT 282 275 MPV 9.2 8.7 CMP: Recent Labs 08/06/1934608/07/19 0508 NA 137 141 K 4.4 4.1 CL 103 107 CO2 20* 26 BUN 14 16 CREATININE 0.77 0.89 GLUCOSE 143* 97 CALCIUM 10.0 9.6 PROT 8.9* 7.8 LABALBU 4.7 4.2 BILITOT 1.1 0.9 ALKPHOS 71 59 AST 36 29 ALT 49 46 ESR/CRP: Lab Results Component Value Date SEDRATE 27 08/07/2019 CRP: 6.8 Radiology Review: All images from [facility] have been loaded in to be CT A/P 05/12/19 IMPRESSION: Evidence of adhesions between distal small bowel and sigmoid colon in the midline in the pelvis and an area of previous inflammation. No acute inflammatory changes are identified currently. CT abd/pelvis w/ contrast 07/24/19 at [facility]: sigmoid abscess with some free air ( microperforation) and enterovesicular fistula, some diverticula in sigmoids (no signs of inflammation in the ileum). [facility] radiologist thought it was related to diverticulitis, [...] CT A/P W contrast (08/05/19) - from [facility] ED IMPRESSION:Sigmoid diverticulitis and possible sigmoid vesicle [...] started on Humira 08/01/19, should continue humira [id number] outpatient. - surgery consulted, no acute surgical intervention at this time - recommend smoking cessation 3) Dysuria - likely UTI 2/2 to enterovesicular fistula - UA at [facility] showed no leukocytes, nitrates, or bacteria - [...] 16.0 15.0 PLT 282 275 Recent Labs 08/06/197 08/07/19 0508 NA 137 141 K 4.4 4.1 CL 103 107 CO2 20* 26 BUN 14 16 CREATININE 0.77 0.89 GLUCOSE 143* 97 Recent Labs 08/06/197 08/07/19 0508 AST 36 29 ALT 49 46 BILITOT 1.1 0.9 ALKPHOS 71 59 No results found for: TRIG, HDL, LDLCALC, CHOL No results found for: PHART, PO2ART, [id number] No results for input(s): INR in the [...] Bulmaro Jerez MD Rounding Hospitalist * Tigist Chamorro MD - 08/06/2019 2:33 PM EST Department [...] CRP 7.0 Radiology Review: All images from [facility] ED have been loaded in to be CT A/P 05/12/19 IMPRESSION: Evidence of adhesions between distal small bowel and sigmoid colon in the midline in the pelvis and an area of previous inflammation. No acute inflammatory changes are identified currently. CT abd/pelvis w/ contrast 07/24/19 at [facility]: sigmoid abscess with some free air ( microperforation) and enterovesicular fistula, some diverticula in sigmoids (no signs of inflammation in the ileum). [facility] radiologist thought it was related to diverticulitis, [...] CT A/P W contrast (08/05/19) - from [facility] IMPRESSION:Sigmoid diverticulitis and possible sigmoid vesicle [...] started on Humira 08/01/19, should continue humira [id number] outpatient. Spoke with patient about amount of [...] CHOL No results found for: PHART, PO2ART, [id number] No results for input(s): INR in the [...] (BMI 30.0-34.9) Acute Crohn's disease without complication ([facility]) Abdominal pain Bipolar disorder ([facility]) Resolved Problems: * No resolved hospital problems. * Diagnosis Date ADHD Bipolar disorder ([facility]) 11/29/2009 Crohn's disease ([facility]) Diverticulitis GERD (gastroesophageal reflux disease) IBD (inflammatory bowel disease) 2019 Intermittent explosive disorder Multiple personality disorder ([facility]) PTSD (post-traumatic stress disorder) Spermatocele 07/12/2014 Plan [...] and PTSD who was recently admitted to [facility] on 04/27 for diverticulitis, but signed out [...] review: (04/27/20) 285#; (10/26/19) 278#; (10/18/19) 272#) [place] Body Weight: 172 lbs; Adjusted Body Weight: [...] Discharge Planning: Continue current diet Contact: pager [phone] * Rupa Frederick APRN - CNP - [...] 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 Please page myself or continuous improvement coordinator psychiatrist for emergent needs or follow up [...] reviewed with the patient. CMP: Recent Labs 05/08/20 1907 05/09/20 0600 NA 136 137 K 4.5 4.5 CL 103 103 CO2 22 24 BUN 17 18 CREATININE 0.56 0.62 GLUCOSE 141* 110* CALCIUM 9.5 9.0 PROT 7.7 -- LABALBU 4.6 -- BILITOT 0.7 -- ALKPHOS 89 -- AST 36 -- ALT 45 -- CBC: Recent Labs 05/08/20 1907 05/09/20 0600 05/10/20 0046 WBC 14.7* 14.6* 21.2* [...] found for: PHOS LIVER PROFILE: Recent Labs 05/08/201906 AST 36 ALT 45 BILITOT 0.7 ALKPHOS [...] gas nor stool effluent. INTAKE/OUTPUT: Date 06/30/20 - 06/30/202358 Shift 2498-1935 5102-7752 4726-4991 24 Hour Total INTAKE P.O.(mL/kg/hr) 400(0.4) 400 [...] PLT 249 299 297 Recent Labs 06/28/2010006/29/2010806/30/20 0029 NA 137 138 137 K 4.0 4.7 [...] Date 06/29/20 0000 - 06/29/20 2359 Shift 4035-9374 5774-3579 3425-7878 24 Hour Total INTAKE I.V.(mL/kg) 630(5.1) 630(5.1) [...] - 06/28/2020 7:49 PM EDT Report to [facility]. 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, pt is NPO and is not very conversant with RD, pt with significant past medical history of Fistulizing Crohn's Disease with known enterovesicular fistula (pt on Humira, next dose scheduled for 06/29, receives dose every 2 weeks), PTSD, GERD, IBD, Bipolar Disorder, Multiple Personality Disorder, Intermittent Explosive Disorder, and Diverticulitis who presents as a transfer from [facility], pt states on evening he developed some pain in his left lower abdomen which he states fell different than my Crohn's pain, pt went to [facility] ED where he was diagnosed w ith diverticulitis and abscess, was then admitted and placed on IV antibiotics and saw a surgeon who recommended transfer to [facility] for further evaluation, patient states he has [...] pt felt his Crohn's was well controlled STRUCTURAL RIGGER, will monitor) Estimated Daily Nutrient Needs: Energy (kcal): 1955-2346kcals/day; Weight Used for Energy Requirements: [place] Protein (g): 78-94gm pro/day; Weight Used for Protein Requirements: [place] Fluid (ml/day): per MD Recommendations; Weight Used for Fluid Requirements: [place] Nutrition Related Findings: Wu = 21, skin intact, +I/O, active bowel sounds, lives with spouse STRUCTURAL RIGGER, plans for OR today for sigmoidectomy and possible small bowel resection Wounds: None Current Nutrition Therapies: Diet NPO Effective Now Exceptions are: Sips with Meds Anthropometric Measures: Height: 5' 11 (180.3 cm) Current Body Weight: 271 lb (122.9 kg)(06/26) Admission Body Weight: 271 lb (122.9 kg)(stated 06/26) Usual Body Weight: 285 lb (129.3 kg)(03/2020) [place] Body Weight: 172 lbs; % [place] Body Weight 157.6 % BMI: 37.8 Adjusted [...] Too soon to determine Contact: pager x [phone] * Deidre Ruano MD - 06/28/2020 8:43 [...] Date 06/28/20 0000 - 06/28/20 2359 Shift 5997-2642 6842-5143 7324-2478 24 Hour Total INTAKE P.O.(mL/kg/hr) 350(0.4) 350 [...] absent INTAKE/OUTPUT: Date 06/27/20 0000 - 06/27/20 235 Shift 2636-1138 2901-0031 4369-6421 24 Hour Total INTAKE I.V.(mL/kg) 321(2.6) 321(2.6) [...] in this encounter* Gauri Zamorano APRN - CHURCH COMMUNICATIONS ADMINISTRATOR - 08/15/2020 2:25 PM EST Wound Care CHURCH COMMUNICATIONS ADMINISTRATOR (SOLID TIRE FINISHER) Consult Note Reason for Consult: Follow up [...] Procedure Laterality Date COLONOSCOPY 11/12/2018 at [facility] , normal .colonoscopy, by Dr Raffaele Cordero COLONOSCOPY 2016 At [facility] , per pt normal colonscopy FOOT SURGERY 2008 ILEOSTOMY OR JEJUNOSTOMY 06/2020 TESTICLE SURGERY 2013 [...] extract complex; Nyquil hbp cold & flu [ec-rpvotxzimb-euuafwunefwzf]; Pseudoephedrine; Dextromethorphan;and Poison mimi extract Social History: [...] on, pt voiced good understanding. * Kristen Strong, MS, RD, LD - 08/15/2020 12:20 PM [...] Usual Body Weight: 285 lb (129.3 kg)(04/27/20) [place] Body Weight: 172 lbs; % [place] Body Weight 141 % BMI: 33.8 Nutrition [...] Nutrition Supplement, Continue current diet Contact: pager [phone] * Ranulfo Branham MD - 08/15/2020 6:57 [...] Date 08/15/20 0000 - 08/15/20 2359 Shift 2829-4375 5812-3710 0315-7267 24 Hour Total INTAKE P.O. 600 600 [...] 105 CO2 25 23 25 BUN 11 13 CREATININE 0.91 0.78 0.81 GLUCOSE 87 [...] dry INTAKE/OUTPUT: Date 08/14/20 0000 - 08/14/20 235 Shift 5879-1446 3419-4285 7508-1703 24 Hour Total INTAKE P.O. 300 300 I.V. 560 560 Shift Total 860 860 OUTPUT Urine 400 400 Drains 0 0 Stool 200 200 Shift Total 600 600 Weight (kg) I/O last 3 completed shifts: In: 2632.5 [P.O.:1260; I.V.:1272.5; IV Piggyback:100] Out: 2165 [Urine:1740; Drains:25; Stool:400] No intake/output data recorded. Data Recent Labs 08/12/20 0233 08/13/20 0327 08/14/20 0504 WBC 8.7 5.8 6.6 HGB 9.6* 10.0* 10.6* HCT 28.8* 30.0* 31.7* PLT 260 224 258 Recent Labs 08/12/20 0233 08/13/20 0327 08/14/20 0504 NA 142 138 139 K 3.7 [...] as documented in his note . * Aylin Del Rosario MD - 08/13/2020 10:02 AM [...] Date 08/13/20 0000 - 08/13/20 2359 Shift 7638-1808 3450-6730 2721-9128 24 Hour Total INTAKE IV Piggyback 50 50 Shift Total 50 50 OUTPUT Urine 600 600 Shift Total 600 600 Weight (kg) I/O last 3 completed shifts: In: 1110 [P.O.:1060; IV Piggyback:50] Out: 1150 [Urine:1100; Drains:50] No intake/output data recorded. Data Recent Labs 08/11/20 0035 08/11/20 0927 08/12/20 0233 08/13/20 0327 WBC 8.9 -- 8.7 5.8 HGB 10.9* 11.1* 9.6* 10.0* HCT 32.4* 33.3* 28.8* 30.0* PLT 209 -- 260 224 Recent Labs 08/11/20 0035 08/12/20 0233 08/13/20 0327 NA 138 142 138 K [...] as documented in his note . * Amanda Padron, [facility] - 08/13/2020 6:15 AM EST Patient Evaluation [...] Therapy to TID and PRN * Iris Jiang OT - 08/12/2020 2:59 PM EST Occupational [...] Jiang OTR/L * Gauri Zamorano APRN - [employer]ICATIONS ADMINISTRATOR - 08/12/2020 10:30 AM EST Wound Care [employer] COMM[employer]ICATIONS ADMINISTRATOR (SOLID TIRE FINISHER) Consult Note Reason for Consult: Follow up [...] (gastroesophageal reflux disease) IBD (inflammatory bowel disease) 2018 Intermittent explosive disorder Multiple personality disorder (HCC) DYLAN (obstructive sleep apnea) 08/09/2020 PTSD (post-traumatic stress disorder) Spermatocele 07/12/2014 Past Surgical History: Procedure Laterality Date COLONOSCOPY 11/12/2018 at [facility] , normal .colonoscopy, by Dr Raffaele Cordero COLONOSCOPY 2016 At [facility] , per pt normal colonscopy FOOT SURGERY 2008 ILEOSTOMY OR JEJUNOSTOMY 06/2020 TESTICLE SURGERY 2013 [...] extract complex; Nyquil hbp cold & flu [mi-tybkpeaiip-dgontcwqmxinj]; Pseudoephedrine; Dextromethorphan;and Poison mimi extract Social History: [...] Resp 18 Ht 5' 11 (1.803 m) PvW975% BMI 33.47 kg/m PHYSICAL EXAM: CONSTITUTIONAL: NAD, A&O X3. CV: Regular rate CHEST: Resp effort easy and unlabored ABDOMEN: Soft, non-distended, appropriately tender, midline wound vac in place, stoma pink and viable, ostomy appliance with bowel sweat and gas SKIN: Warm and dry INTAKE/OUTPUT: Date 08/12/20 0000 - 08/12/20 2359 Shift 2943-9223 7403-9451 5962-0274 24 Hour Total INTAKE I.V. 1894 1894 IV Piggyback 100 100 Shift Total 1994 1994 OUTPUT Urine 400 400 Drains 5 5 Shift Total 405 405 Weight (kg) I/O last 3 completed shifts: In: 1994 [I.V.:1895; IV Piggyback:100] Out: 1465 [Urine:1425; Drains:40] No intake/output data recorded. Data Recent Labs 08/10/2012708/11/20 0035 08/11/20 0927 08/12/20 0233 WBC 8.1 8.9 -- 8.7 HGB 15.3 [...] Date 08/11/20 0000 - 08/11/20 2359 Shift 3298-8929 9170-5822 1622-1236 24 Hour Total INTAKE P.O. 50 50 I.V. 998 998 IV Piggyback 100 100 Shift Total 1148 1148 OUTPUT Urine 500 500 Drains 30 30 Stool 0 0 Shift Total 530 530 Weight (kg) I/O last 3 completed shifts: In: 2443 [P.O.:50; I.V.:2193; IV Piggyback:200] Out: 1780 [Urine:1625; Drains:155] No intake/output data recorded. Data Recent Labs 08/10/20 0128 08/11/20 0035 WBC 8.1 8.9 HGB 15.3 10.9* HCT 45.7 32.4* PLT 293 209 Recent Labs 08/10/20 0128 08/10/20 0655 08/11/20 0035 NA 137 -- 138 [...] ambulation - DVT ppx: SCDs / Lovenox LLE * Baudilio Dumont DO - 08/11/2020 4:59 [...] Baudilio Dumont D.O. General Surgery PGY-1 Pager: [phone] * Ayanna Macedo RN - 08/10/2020 2:35 PM EST Wound Care [...] wound VAC dressing Sunday 08/12. * Kristen Strong MS, RD, LD - 08/10/2020 12:01 PM [...] loss Fluid Accumulation: No significant fluid accumulation Multiple Needle Stitcher Strength: Not Performed Estimated Daily Nutrient Needs: Energy (kcal): 0781-8151 (25-30); Weight Used for Energy Requirements: [place] Protein (g): 94-109 (1.2-1.4); Weight Used for Protein Requirements: [place] Fluid (ml/day): per MD; Nutrition Related Findings: hypoactive bowel sounds; ileostomy; -I&O; no edema noted; +wound vac; ASHWIN drain Wounds: Surgical Incision, Wound Vac Anthropometric Measures: Height: 5' 11 (180.3 cm) Current Body Weight: 242 lb 8 oz (110 kg)(3 weeks ago at home) Admission Body Weight: 240 lb (108.9 kg)(stated) Usual Body Weight: 285 lb (129.3 kg)(04/27/20) [place] Body Weight: 172 lbs; % [place] Body Weight 141 % BMI: 33.8 Nutrition [...] Focused Physical Findings, Hemodynamic Status Contact: pager [phone] * Senthil Ortega, PT - 08/10/2020 11:16 AM EST Physical Therapy Facility/Department: [facility] Initial Assessment NAME: Ruthie Castillo [...] Ambulation Assistance: Independent Transfer Assistance: Independent Active Interlocking Machine Operator: Yes Mode of Transportation: Car Occupation: On [...] 1055 Time Out 1105 Minutes 10 Senthil Ortega PT,GCS * Louise Richards MD - 08/10/2020 [...] Warm and dry INTAKE/OUTPUT: Date 08/10/20 - 08/10/202358 Shift 0871-6628 1291-5422 0909-8163 24 Hour Total INTAKE P.O. 60 60 I.V. 700 700 Shift Total 760 760 OUTPUT Urine 300 300 Emesis/NG output 0 0 Drains 250 250 Stool 0 0 Shift Total 550 550 Weight (kg) I/O last 3 completed shifts: In: 2059 [P.O.:60; I.V.:2000] Out: 2219 [Urine:1150; Drains:370; Blood:700] No intake/output data recorded. Data Recent Labs 08/10/20127 WBC 8.1 HGB 15.3 HCT 45.7 PLT 293 Recent Labs 08/10/2012708/10/20 0655 NA 137 -- K 5.6* 4.6 [...] pt to be transported by ENDO and SIGNING TEACHER staff to PACU for admit direct to [...] 3.375 g Intravenous Q8H Recent Labs 07/25/19 0039 WBC 12.0* HGB 15.3 PLT 239 Recent Labs 07/25/19 0039 NA 139 K 3.8 CL 104 CO2 25 BUN 10 CREATININE 0.80 GLUCOSE 158* Recent Labs 07/25/19 0039 AST 33 ALT 37 BILITOT 0.7 ALKPHOS [...] Contrast Ordering Physician KULWINDER BISHOP Accession Number [id number] CPT4 Codes 64890 () Reason For Exam crohn flare, with [...] what we are going to do aboutall this. Patient was tearful towards the end of [...] Abdomen w/ + w/o Contrast Ordering Physician [id number] TEAGUE Accession Number [id number] CPT4 Codes 79065 () Reason For Exam crohn flare, with [...] medical management per primary; appreciate recommendations from GI Chema Faye MD 07/25/2019 7:39 AM Associated attestation [...] pt to be transported by ENDO and SIGNING TEACHER staff to PACU for admit direct to [...] perforation and need for emergent surgery. * rEik Villagomez RN - 08/09/2020 3:00 PM EST [...] be monitored and followed by the diet psychiatric technician. * Bob Thompson MD - 07/29/2019 10:41 AM EDT Hospitalist Progress Note 07/29/2019 10:41 AM [phone]: Please page me for patient care issues. [phone]: Please page [facility] night Hospitalist for any issues. Subjective: Admit [...] won't neednarcotics as he is a tylenol yuniel. Meanwhile, GI has seen and states they plan on treating him with inflixamab (Remicade) vs. adalimumab (Humira) as an outpatient. Advance Directive: Full Code Discharge planning: TBD BOB THOMPSON DO Division of Hospitalist Medicine Inpatient Medical Services PAGER: [phone] * Bob Thompson MD - 07/28/2019 10:21 AM EDT Hospitalist Progress Note 07/28/2019 10:21 AM [phone]: Please page me for patient care issues. [phone]: Please page [facility] night Hospitalist for any issues. Subjective: Admit Date: 07/27/2019 PCP: Usha Frazeir DO Room#: 1742/1742A Interval History: Patient states [...] of Hospitalist Medicine Inpatient Medical Services PAGER: [phone] * Chema Faye MD - 07/28/2019 7:20 [...] No intake/output data recorded. Data Recent Labs 07/28/1945 WBC 9.9 HGB 15.1 HCT 44.4 PLT 263 Recent Labs 07/28/1945 NA 139 K 4.0 CL 106 CO2 25 BUN 14 CREATININE 0.77 GLUCOSE 143* Recent Labs 07/28/1945 AST 27 ALT 31 BILITOT 0.8 ALKPHOS 61 Imaging Mri Abdomen W Wo Contrast Result Date: 07/25/2019 Patient Name: RUTHIE CASTILLO ---MRI--- Exam Date/Time 07/24/2019 19:20:55 EDT Exam MRI Abdomen w/ + w/o Contrast Ordering Physician [id number] KULWINDER UMANA Accession Number [id number] CPT4 Codes 20691 () Reason For Exam crohn flare, with [...] during his second Crohn's flare after leaving AM during recent admission. At this time patient willneed medical management with biologics/immunologic modulators of his Crohn's flare. - no acute surgical intervention at this time as the patient is treatment naive, has not been treated with biologics or immunologics or consistently followed up with a casket liner - medical management per GI recs - IVFs - OK for ADAT Chema Faye MD 07/28/2019 7:20 AM documented [...] won't neednarcotics as he is a tylenol yuniel. Meanwhile, GI has seen and states they [...] DISCHARGE MEDICATIONS: Ruthie Castillo Home Medication Instructions WILSON:[id number] Printed on:07/29/19 2219 Medication Information acetaminophen (TYLENOL) 500 MG tablet [...] Complexity: follow up within 7-14 calendar days (65394) [] Severe Complexity: follow up within 7 calendar days (63137) FOLLOW UP TESTING, PENDING RESULTS OR REFERRALS AT TRANSITIONAL CARE VISIT: [] Yes [] No PENDING STUDIES: No DISPOSITION: Home FACILITY/HOME CARE AGENCY NAME: Follow up with Usha Frazier DO [address] [facility] [address] Arielle Coburn MD [address] [place], [place] [id number] In 3 weeks INSTRUCTIONS TO MA/SW: Please [...] pain Crohn's colitis, unspecified complication (HCC) Stefany Taylor, SIVAN [address] [place] [address] [facility] [address] [place] [address] Scheduling Instructions [facility] Medicine - [place] [address] [place]. [address] Chief Complaint and Reason for Visit Chief Complaint RIGHT ARM PAIN RIGHT EAR CLOGGED Chief Complaint RIGHT EAR CLOGGED BACK Chief Complaint COLD SYMPTONS Chief Complaint COLD SYMPTONS CHEST PAIN Additional Source Comments (unrecognized sect ion and content) No Status Records FoundNo Status Records FoundNo Status Records FoundNo Status Records FoundNo Status Records FoundNo Status Records FoundNo Status Records FoundNo Status Records FoundNo Status Records FoundNo Status Records Found INFORMATION SOURCE (unrecogn ized section and content) DATE CREATED AUTHOR 11/10/2018 [place] [facility] DATE CREATED AUTHOR AUTHOR'S ORGANIZ ATION 11/11/2018 [facility] DATE CREATED AUTHOR AUTHOR'S ORGANIZ ATION 07/28/2019 [facility] DATE CREATED AUTHOR AUTHOR'S ORGANIZ ATION 02/25/2020 [facility] DATE CREATED AUTHOR AUTHOR'S ORGANIZ ATION 07/06/2020 [facility] DATE CREATED AUTHOR AUTHOR'S ORGANIZ ATION 11/24/2021 [facility] DATE CREATED AUTHOR AUTHOR'S ORGANIZ ATION 12/01/2022 [facility] DATE CREATED AUTHOR AUTHOR'S ORGANIZ ATION 09/19/2023 [facility] ([place]) DATE CREATED AUTHOR AUTHOR'S ORGANIZ ATION 06/30/2024 [facility] DATE CREATED AUTHOR AUTHOR'S ORGANIZ ATION 08/17/2024 [place] Reason for Visit (unrecogniz ed section and content) Reason Comments Abdominal Pain Nausea Diarrhea Reason Comments Abdominal Pain Nausea Reason Comments Abdominal Pain Reason Comments Abdominal Pain Pt here to the ER c/ o abd pain since noon today. Pt has hx of Crohn's. Dizziness Diarrhea Reason Comments Abdominal Pain surgical consult fro eh Nielson,, see ,, possible micro perf,, possible abscess with diverticulitis Reason Comments Abdominal Pain post op surgery om 9 -28 now has abd pain. ileostomy is functioning [...] pt states I feel bound up real tight. Pt reports that he had a syncopal episode yesterday and was seen at the [facility] and had a workup. Pt states he is still dizzy and lightheaded and not feeling well. pt called crohn's doctor and was told to come to ER for evaluation. Goals (unrecognized section and content) Goals may be documented in a n alternate sectionGoals may be documented in an alternate sectionGoals may be documented in an alternate sectionGoals may be documented in an alternate section No data available for this section No data available for this section Care Teams (unrecognized sec tion and content) Team Status: Active Member Role Status Dates Dr. Usha Frazier DO Family Provider Active Dr. Usha Frazier DO Primary Care Provider Active Team Status: Inactive Member Role Status Dates Dr. Usha Frazier DO Primary Care Provider Active Ed Physician Provider Emergency Provider Active Team Status: Inactive Member Role Status Dates Dr. Usha Frazier DO Primary Care Provider Active Nito Tapia MD Emergency Provider Active FOR RECORDS PERTAINING TO PATIENTS WHO ARE [...] BE BASED ON THE PRIMARY CLINICAL RECORDS. [facility] provides no warranty or guarantee of the accuracy or completeness of information in this document.
[2025-04-04 11:21] LABS: Anion Gap 12 (5-15); BUN 13 mg/dL (4-19); BUN/Creat Ratio 15.7 RATIO (10-20); Calcium,Total 9.1 mg/dL (7.6-11.0); Carbon Dioxide 23.0 mmol/L (21.0-32.0); Chloride 103 mmol/L (98-108); Estimated Creatinine Clearance 166.39 ml/min (50-250); Glucose 84 mg/dL (70-99); Potassium 3.6 mmol/L (3.3-5.1)
[2025-04-04 11:37] LABS: Troponin T High Sensitivity < 6 ng/L (<=22)
[2025-04-04 11:41] VITALS: BP 152/92; BP 155/99; BP 159/97; PULSE 66; PULSE 76; PULSE 77
[2025-04-04 11:50] LABS: Color, Urine Yellow (Yellow); Glucose, Dipstick Normal (Normal); Ketone-Dipstick Negative (Negative); Leukocyte Esterase-Dipstick Negative /ul (Negative); Mucous, Urine 0 SEEN /hpf (<or=2+); Nitrite-Dipstick Negative (Negative); Occult Blood-Urine Negative /ul (Negative); Protein-Dipstick 30 mg/dl (Negative); Red Blood Cells-Urine 0 SEEN /hpf (0-5); Specific Gravity, Urine 1.010 (1.002-1.030); Squamous Epithelial Cells - UA 0 SEEN /hpf (0-5); Urine Bilirubin Dipstick Negative (Negative)
[2025-04-04 13:34] VITALS: BP 154/115; PULSE 65; RESP 18; O2SAT 97
[2025-04-04 13:47] LABS: Troponin T High Sens 2 HR < 6 ng/L (<=22)
[2025-04-04 14:10] VITALS: BP 161/106; PULSE 65; RESP 18; TEMP 36.6; O2SAT 99
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
== END 2025-04-04 14:24 | disposition home or self-care (01) ==
PROVIDERS: Emergency Provider Emergency Medicine; PCP Family Medicine; Visit Provider Emergency Medicine
DX: R07.89 Other chest pain (principal); K50.90 Crohn's disease, unspecified, without complications; F31.9 Bipolar disorder, unspecified; K21.9 Gastro-esophageal reflux disease without esophagitis; R03.0 Elevated blood-pressure reading, without diagnosis of hypertension; R06.02 Shortness of breath; F17.210 Nicotine dependence, cigarettes, uncomplicated; F41.9 Anxiety disorder, unspecified
CPT/HCPCS: 71046; 80048; 81001; 84484; 85025; 93005; 99284; A4216